=== PATIENT | male | born 1945 | race African-American/Black ===

== ENCOUNTER 2016-07-24 11:31 | Inpatient (IN) | payer MEDICARE ==
[~2016-07-24] VITALS: Ht 175.3 cm; Wt 68.0 kg
[2016-07-24] MEDS ORDERED: OCTREOTIDE 50 MCG in SOD CHLORIDE 0.9% 25 ML IVPB STA (11:51)
[2016-07-24] MEDS ORDERED: ONDANSETRON 4 MG INJ IV STA (11:51)
[2016-07-24] MEDS ORDERED: SOD CHLORIDE 0.9% 1,000 ML IV STA (11:51)
[2016-07-24] MEDS ORDERED: ALBUTEROL 0.5% (NEB) 2.5 MG/0.5 ML AMP INH STA (11:51)
[2016-07-24] MEDS ORDERED: METHYLPREDNISOLONE 40 MG INJ IV STA (11:51)
[2016-07-24] MEDS ORDERED: OCTREOTIDE 500 MCG in SOD CHLORIDE 0.9% 49 ML IV STA (11:51)
[2016-07-24] MEDS ORDERED: IPRATROPIUM (NEB) 0.5 MG/2.5 ML AMP INH STA (11:51)
[2016-07-24 11:55] VITALS: Ht 175.3 cm; Wt 68.0 kg
[2016-07-24] MEDS ORDERED: CEFEPIME 1GM/50 ML (PMX) 50 ML IVPB ONE (12:00)
--- NOTE | 2016-07-24 12:30 | RADRPT ---
PROCEDURE: XR Chest 1 View. CLINICAL INDICATION: Abdominal pain TECHNIQUE: AP view of the chest were obtained. COMPARISON: June 27, 2016 FINDINGS: Heart size is within normal limits. Calcified atherosclerosis is seen in the aorta. Tracheostomy t ube appears in grossly appropriate location. The lungs are hypoinflated. Atelectasis versus mild i nfiltrates are identified at the bilateral lung bases. No pneumothorax as visualized . Left-sided rib fractures are unchanged. IMPRESSION: Calcified atherosclerosis in the aorta. Hypoinflated lungs with atelectasis versus mild infiltrates at the lung bases. Stable left rib fractures. RPTAT: AA .Kervin Hanson MD, MD Date Time Electronically viewed and signed by .Kervin Hanson MD, on 07/24/2016 12:30 .P/
[2016-07-24] MEDS ORDERED: ACET325T33 GTB (12:47)
[2016-07-24] MEDS ORDERED: TYL500 GTB (12:49)
[2016-07-24] MEDS ORDERED: ASCO500C7 GTB (12:52)
[2016-07-24] MEDS ORDERED: FERR220S2 GTB (12:53)
[2016-07-24 12:55] LABS: HEMATOCRIT 44.6 % (42.0-52.0); MEAN CORPUSCULAR HEMOGLOBIN 26.8 pg (29.0-33.0); MEAN CORPUSCULAR HGB CONC 31.4 g/dl (32.0-37.0); MEAN CORPUSCULAR VOLUME 85.2 fl (82.0-101.0); MEAN PLATELET VOLUME 10.8 fl (7.4-10.4); PLATELET COUNT 338 10^3/UL (140-440); RED BLOOD COUNT 5.24 10^6/ul (4.70-6.10); WHITE BLOOD COUNT 14.3 10^3/ul (4.8-10.8)
[2016-07-24] MEDS ORDERED: DIPH25TA68 GTB (12:55)
[2016-07-24 12:57] LABS: CONDITION 1; LH ANALYZER COMMENTS 1; SUSPECT 1; UNCORRECTED WBC 15.2 10^3/ul (4.8-10.8)
[2016-07-24] MEDS ORDERED: ENOX40DI14 SC (12:58)
[2016-07-24] MEDS ORDERED: AMLO-218 PO (12:58)
[2016-07-24] MEDS ORDERED: FAMO-18 PO (12:59)
[2016-07-24] MEDS ORDERED: VANCOMYCIN 1 GM (PMX) 250 ML IVPB SCH (13:00)
[2016-07-24] MEDS ORDERED: METO-429 PO (13:02)
[2016-07-24 13:04] LABS: INR 1.16; PROTIME 14.8 Sec (12.2-14.2); PT RATIO 1.2
[2016-07-24 13:05] LABS: ALBUMIN 4.2 g/dl (3.3-4.9); CHLORIDE 98 mmol/L (97-110)
[2016-07-24 13:06] LABS: POTASSIUM 5.4 mmol/L (3.5-5.1); SODIUM 141 mmol/L (135-144)
[2016-07-24 13:08] LABS: ALBUMIN/GLOBULIN RATIO 0.84; ANION GAP 25 (8-16); ASPARTATE AMINO TRANSFERASE 41 IU/L (15-46); BILIRUBIN,INDIRECT 0.3 mg/dl (0-1.1); BILIRUBIN,TOTAL 0.3 mg/dl (0.2-1.3); CARBON DIOXIDE 23 mmol/L (21-31); CREATININE 1.65 mg/dl (0.61-1.24); TOTAL PROTEIN 9.2 g/dl (6.1-8.1)
[2016-07-24 13:09] LABS: ALANINE AMINOTRANSFERASE 87 IU/L (13-69); ALKALINE PHOSPHATASE 92 IU/L (42-121); BLOOD UREA NITROGEN 48 mg/dl (7-20); CALCIUM 10.6 mg/dl (8.4-10.2); GLUCOSE 173 mg/dl (70-220)
[2016-07-24 13:23] LABS: TROPONIN-I < 0.012 ng/ml (0.00-0.12)
[2016-07-24 13:28] LABS: ADD UMIC YES; URINE BILIRUBIN (Dip) 1+ (NEGATIVE); URINE BLOOD (Dip) 3+ (NEGATIVE); URINE COLOR AMBER (YELLOW); URINE GLUCOSE (Dip) NEGATIVE (NEGATIVE); URINE KETONES (Dip) TRACE (NEGATIVE); URINE LEUKOCYTE ESTERASE (Dip) 1+ (NEGATIVE); URINE NITRITE (Dip) NEGATIVE (NEGATIVE); URINE TOTAL PROTEIN (Dip) 2+ (NEGATIVE); URINE UROBILINOGEN (Dip) 0.2 E.U./dL (0.1-1.0)
--- NOTE | 2016-07-24 13:41 | ERA ---
ER Documentation Chief Complaint Date/Time DATE: 07/24/16 TIME: 13:28 Chief Complaint had couple episodes HPI 70-year-old man brought in by EMS from senior living for a few episodes of coffee -ground emesis. Patient was also diaphoretic and short of breath. HPI supplemented by reviewing senior living records, previous medical records, speaking to EMS, and nursing staff. ROS All systems reviewed and are negative except as per history of present illness. Medications Home Meds Reported Medications Metoprolol Tartrate* (Lopressor*) 50 Mg Tab, 50 MG PO TID, #60 TAB 07/24/16 Famotidine* (Pepcid*) 20 Mg Tablet, 20 MG PO BID, #60 TAB 07/24/16 Enoxaparin Sodium* (Lovenox*) 40 Mg/0.4 Ml Syringe, 40 MG SC DAILY, SYR 07/24/16 Amlodipine Besylate* (Norvasc*) 10 Mg Tablet, 10 MG PO DAILY, TAB HOLD FOR SBP BELOW 110 HR BELOW 60 07/24/16 Diphenhydramine Hcl (Benadryl Allergy) 25 Mg Tablet, 25 MG GTB Q6 Y for ITCHING , TAB 07/24/16 Ferrous Sulfate (Ferrous Sulfate) 220 Mg/5 Ml Solution, 220 MG GTB DAILY 07/24/16 Ascorbic Acid* (Vitamin C*) 500 Mg Capsule.sa, 500 MG GTB DAILY, CAP 07/24/16 Acetaminophen* (Tylenol*) 500 Mg Tab, 1000 MG GTB Q4H Y for PAIN 4-6/10, TAB 07/24/16 Acetaminophen* (Tylenol*) 325 Mg Tablet, 650 MG GTB Q4H for MILD PAIN LEVEL 1-3 , TAB FOR FEVER 100 & ABOVE, FOR TRACH TUBE CHANGE 07/24/16 Allergies Allergies: Coded Allergies: No Known Allergy (Unverified , 07/24/16) PMhx/Soc Cephalopathy, tracheostomy and mechanical ventilator dependence, colostomy bag, chronic obstructive pulmonary disease, dysphagia, subdural hemorrhage, bedbound state, hypertension, preserved left ventricular ejection fraction Hx Alcohol Use: No Hx Substance Use: No Hx Tobacco Use: No Smoking Status: Former smoker FmHx Family History: No diabetes Physical Exam Vitals Vital Signs Date Time Temp Pulse Resp B/P Pulse Ox O2 Delivery O2 Flow Rate FiO2 07/24/16 12:54 118 19 101/73 90 Room Air 12/24/16 12:49 Venti Mask 07/24/16 12:21 8.0 07/24/16 12:21 101 17 97 T Tube 8.0 07/24/16 11:55 99.8 107 40 148/113 98 Physical Exam GENERAL: Elderly, chronically debilitated, emaciated man, diaphoretic, febrile HEENT: Dry mucous membranes, pink conjunctiva, no cervical spine deformity NEURO: Comatose, pupils minimally reactive, bilateral upper and lower extremity contractures with diffuse muscular wasting, paralyzed, bedbound CARDIAC: Tachycardic and regular, no murmurs rubs or gallops LUNGS: Poor breath sounds bilaterally with diffuse crackles and wheezing, no stridor ABDOMEN: Soft nontender, no guarding, no rigidity, no rebound, no psoas sign no obturator sign. Normoactive bowel sounds SKIN: Diaphoretic and hot to touch, no abrasions, contusions, or hematomas, no lacerations, no ecchymosis, no target lesions, and without ulcers EXTREMITIES: No clubbing cyanosis or edema, calves are bilaterally symmetrical, no Homans sign, no popliteal cord sign. Distal pulses equal and bilateral PSYCH: Unable to assess Result Diagram: 07/24/16 1209 07/24/16 1209 Results 24 hrs Laboratory Tests Test 07/24/16 12:09 Alanine Aminotransferase (ALT/SGPT) 87IU/L Albumin 4.2g/dl Albumin/Globulin Ratio 0.84 Alkaline Phosphatase 92IU/L Anion Gap 25 Aspartate Amino Transf (AST/SGOT) 41IU/L Basophils # Pending Basophils % Pending Blood Morphology Comment Blood Urea Nitrogen 48mg/dl Calcium Level 10.6mg/dl Carbon Dioxide Level 23mmol/L Chloride Level 98mmol/L Creatinine 1.65mg/dl Direct Bilirubin 0.00mg/dl Eosinophils # Pending Eosinophils % Pending Globulin 5.00g/dl Glucose Level 173mg/dl Hematocrit 44.6% Hemoglobin 14.0g/dl INR International Normalized Ratio 1.16 Indirect Bilirubin 0.3mg/dl Lactic Acid Level 3.6mmol/L Lipase 16U/L Lymphocytes # Pending Lymphocytes % Pending Mean Corpuscular Hemoglobin 26.8pg Mean Corpuscular Hemoglobin Concent 31.4g/dl Mean Corpuscular Volume 85.2fl Mean Platelet Volume 10.8fl Monocytes # Pending Monocytes % Pending Neutrophils # Pending Neutrophils % Pending Nucleated Red Blood Cells # Pending Nucleated Red Blood Cells % Pending Platelet Count 63430^3/UL Potassium Level 5.4mmol/L Prothrombin Time 14.8Sec Prothrombin Time Ratio 1.2 Red Blood Count 5.2410^6/ul Red Cell Distribution Width 18.0% Sodium Level 141mmol/L Total Bilirubin 0.3mg/dl Total Protein 9.2g/dl Troponin I < 0.012ng/ml White Blood Count 14.310^3/ul Current Medications Medications (Trade) Dose Ordered Sig/Brandi Route PRN Reason Start Time Stop Time Status Last Admin Dose Admin Octreotide Acetate 50 mcg/ Sodium Chloride 26 ml @ 100 mls/hr Q16M STAT IVPB 07/24/16 11:51 07/24/16 12:06 DC Octreotide Acetate/Sodium Chloride (Sandostatin/NS) 50 ml @ 5 mls/hr ONCE STAT IV 07/24/16 11:51 07/24/16 21:50 Ondansetron HCl (Zofran Inj) 4 mg ONCE STAT IV 07/24/16 11:51 07/24/16 11:55 DC 07/24/16 12:38 Albuterol (Proventil 0.5% (Neb)) 10 mg ONCE STAT INH 07/24/16 11:51 07/24/16 11:55 DC 07/24/16 12:05 Ipratropium Royal (Atrovent 0.02% (Neb)) 1 mg ONCE STAT INH 07/24/16 11:51 07/24/16 11:55 DC 07/24/16 12:04 Methylprednisolone Sodium Succinate 40 mg 40 mg ONCE STAT IV 07/24/16 11:51 07/24/16 11:55 DC 07/24/16 12:38 Sodium Chloride 1,000 ml @ 3,000 mls/hr Q20M STAT IV 07/24/16 11:51 07/24/16 12:10 DC 07/24/16 12:37 Cefepime HCl 50 ml @ 100 mls/hr ONCE ONCE IVPB 07/24/16 12:00 07/24/16 12:29 DC 07/24/16 12:38 Vancomycin HCl (Vancocin) 250 ml @ 125 mls/hr ONCE IVPB 07/24/16 13:00 07/24/16 14:59 Procedures/MDM IV line was established patient was placed on athletic monitor rhythm strip revealed a sinus tachycardia at about 110 bpm with upright P and T waves. Patient was febrile. Blood and urine cultures were ordered results are pending I will follow-up. EKG performed, read by me revealed a sinus tachycardia at 105 bpm, normal axis, narrow QRS complex with a first-degree atrioventricular block and a SC interval of 206 ms, no concerning ST elevations or depressions noted. One view chest x-ray performed, read by me there is atelectatic changes bilaterally and bilateral pulmonary infiltrates, tracheostomy tube in place, no pneumothorax, no end of the diaphragm. I administered about 2 L normal saline intravenously for dehydration and suspected sepsis, albuterol 10 mg via nebulizer, ipratropium 1 mg via nebulizer , methylprednisolone 40 mg IV, Zofran 4 mg IV for vomiting, and cefepime 1 g IV. NG tube was placed to intermittent suction and coffee-ground contents were obtained. I also administered octreotide 50 g IV bolus followed by an octreotide drip. Patient also received vancomycin 1 g IV. CBC also revealed a mild leukocytosis of 14, electrolytes revealed hyperkalemia 5.4 and dehydration with acute kidney injury with a BUN/creatinine of 48/1.7, liver function tests were unremarkable, troponin was negative, initial lactic acid was above 3. Urine analysis was positive for infection. Patient's infectious symptoms have not stabilized and the patient is at risk of rapid decompensation. The patient will be admitted for careful hydration, antibiotic therapy, and infectious source control. Severe Sepsis Assessment: Infectious Source: Bilateral pulmonary infiltrates No evidence of endorgan damage at this time. Severe Sepsis Managment: Blood Cultures X 2 before broad spectrum antibiotics initiated within 3 hours of recognition. 30 ml/kg NS bolus Completed Initial Lactate: Elevate Repeat Lactate pending Critical Care: Time: 40 minutes Treatments/Evaluations: Emergent fluid management, while maintaining close respiratory support. Immediate broad spectrum antibiotic therapy. Simultaneous assessment for possible sources in order to direct therapy. Consideration for invasive and chemical support to prevent respiratory or cardiac collapse. Septic Shock Assessment (1 hour post 30 ml/kg fluid bolus): Hypotension (SBP < 90 or 40 mmHg drop, MAP < 65): No Lactic acid > 4.0 No Perfusion Reassessment for Septic Shock: Temp 98.7, Pulse 100, RR 30, BP 120/80 Heart Exam: Tachycardic Lung Exam: Wheezes and crackles bilaterally Capillary Refill: Less than 2/ Peripheral Pulses: Radially present Skin: Diaphoretic and hot to touch Hypotensive Treatment (not required for isolated lactic acid elevation): Comfort Care: No Central LIne: Not indicated as patient's blood pressure is well within normal limit Vasopressor started: Not indicated I considered further perfusion assessment with CVP measurement, SCVO2, bedside ultrasound volume assessment, passive leg raise, trial of further fluid bolus. And preceded with IV hydration, bronchodilator therapy, and IV antibiotic Accepting Care Team: Current data and ongoing care discussed. Time: Time of admission Primary Provider: Dr. Germain covering for Dr. Meeks Consulting: Dr. Figueroa for pulmonary Outstanding Data: none Departure Diagnosis: Primary Impression: Sepsis Qualified Code: A41.9 - Sepsis, due to unspecified organism Additional Impressions: Bilateral pneumonia Qualified Code: J18.9 - Pneumonia of both lower lobes due to infectious organism Respiratory failure Qualified Code: J96.21 - Acute on chronic respiratory failure with hypoxia and hypercapnia COPD (chronic obstructive pulmonary disease) Qualified Code: J44.1 - Chronic obstructive pulmonary disease with acute exacerbation Encephalopathy Hyperkalemia Gastrointestinal hemorrhage associated with acute gastritis Condition: Serious RONNIE OWENS MD Jul 24, 2016 13:39
[2016-07-24 13:49] LABS: LYMPHOCYTES # 1.3 10^3/ul (0.8-2.9); MONOCYTE # 0.3 10^3/ul (0.3-0.9); NEUTROPHIL # 10.4 10^3/ul (1.6-7.5)
[2016-07-24 13:57] LABS: BACTERIA,URINE MANY; ICTOTEST NEGATIVE (NEGATIVE)
[2016-07-24] MEDS ORDERED: ONDANSETRON 4 MG INJ IV PRN (14:00)
[2016-07-24] MEDS ORDERED: morphine 2 MG INJ IV PRN (14:00)
[2016-07-24] MEDS ORDERED: ACETAMINOPHEN 325 MG TAB PO PRN (14:00)
[2016-07-24] MEDS ORDERED: NACL 0.9% 3 ML SYG IV SCH (14:00)
[2016-07-24] MEDS ORDERED: SOD CHLORIDE 0.9% 1,000 ML IV ONE (17:00)
[2016-07-24 18:33] VITALS: TEMP 98.9
[2016-07-24 19:06] VITALS: BP 151/81; PULSE 87; RESP 18
[2016-07-24 20:09] VITALS: PULSE 85
[2016-07-24] MEDS: FAMOTIDINE 20 MG INJ IV SCH (20:30)
[2016-07-24 20:46] VITALS: BP 151/81; RESP 16
[2016-07-24] MEDS: SOD CHLORIDE 0.9% 1,000 ML IV SCH (22:26)
[2016-07-25] VITALS (13 sets, daily range): BP systolic 134–170; BP diastolic 69–87; PULSE 70–129; RESP 18–22
[2016-07-25] MEDS: SOD CHLORIDE 0.9% 1,000 ML IV SCH ×2 (06:16→15:42)
[2016-07-25 06:36] LABS: HEMATOCRIT 30.5 % (42.0-52.0); HEMOGLOBIN 9.9 g/dl (14.0-18.0); LYMPHOCYTES # 1.6 10^3/ul (0.8-2.9); LYMPHOCYTES % 10.5 % (15.0-51.0); MEAN CORPUSCULAR HEMOGLOBIN 27.5 pg (29.0-33.0); MEAN CORPUSCULAR HGB CONC 32.6 g/dl (32.0-37.0); MEAN CORPUSCULAR VOLUME 84.5 fl (82.0-101.0); MONOCYTE # 1.1 10^3/ul (0.3-0.9); MONOCYTES % 7.5 % (0.0-11.0); NEUTROPHIL # 12.5 10^3/ul (1.6-7.5); PLATELET COUNT 351 10^3/UL (140-440); RED CELL DISTRIBUTION WIDTH 18.1 % (11.5-14.5); UNCORRECTED WBC 15.2 10^3/ul (4.8-10.8); WHITE BLOOD COUNT 15.2 10^3/ul (4.8-10.8)
[2016-07-25 06:56] LABS: ALBUMIN 3.2 g/dl (3.3-4.9); POTASSIUM 4.9 mmol/L (3.5-5.1)
[2016-07-25 06:58] LABS: CREATININE 0.67 mg/dl (0.61-1.24)
[2016-07-25 06:59] LABS: ALBUMIN/GLOBULIN RATIO 0.84; BILIRUBIN,INDIRECT 0.2 mg/dl (0-1.1); BILIRUBIN,TOTAL 0.2 mg/dl (0.2-1.3)
[2016-07-25 07:17] LABS: CONDITION 1; LH ANALYZER COMMENTS 1; SUSPECT 1
[2016-07-25] MEDS: FAMOTIDINE 20 MG INJ IV SCH (09:48)
[2016-07-25] MEDS: ENOXAPARIN 30 MG/0.3 ML SYG SC SCH (09:53)
[2016-07-25] MEDS: CEFEPIME 1GM/50 ML (PMX) 50 ML IVPB SCH (12:00)
--- NOTE | 2016-07-25 12:42 | HP ---
Date/Time of Note Date/Time of Note DATE: 07/25/16 TIME: 12:40 Assessment/Plan VTE Prophylaxis VTE Prophylaxis Intervention: LMWH Lines/Catheters IV Catheter Type (from Nrs): Peripheral IV Urinary Cath still in place: Yes Reason Cath still needed: skin wounds contaminated by urine Assessment/Plan Chief Complaint/Hosp Course 1) pneumonia - intravenous antibiotics - monitor clinically 2) respiratory failure - consult pulmonary to evaluate and aid in care 3) encephalopathy - monitor Problems: HPI/ROS Admit Date/Time Admit Date/Time Jul 24, 2016 at 13:21 Hx of Present Illness Patient with respiratory failure, COPD, encephalopathy comes from subacute with evidence of sepsis. Patient will be admitted for antibiotics and further care. ROS Subjective hx not possible: pt non-verbal PMH/Family/Social Past Medical History encephalopathy, respiratory failure, COPD Social History Alcohol Use: none Smoking Status: Unknown if ever smoked Exam/Review of Systems Vital Signs Vitals Vital Signs Date Time Temp Pulse Resp B/P Pulse Ox O2 Delivery O2 Flow Rate FiO2 07/25/16 12:06 101 07/25/16 11:54 98.2 18 149/84 98 07/25/16 09:31 T Tube 10.0 40 Intake and Output 07/24/16 07/24/16 07/25/16 15:00 23:00 07:00 Intake Total 1000 ml Balance 1000 ml Exam Constitutional: non-verbal Respiratory: diminished breath sounds Cardiovascular: regular rate and rhythm Gastrointestinal: non-tender, soft Extremities: normal pulses Labs Result Diagram: 07/25/16 0551 07/25/16550 Medications Medications Current Medications Ondansetron HCl (Zofran Inj) 4 mg Q6H PRN IV NAUSEA AND/OR VOMITING; Start at 14:00 Acetaminophen (Tylenol Tab) 650 mg Q6H PRN PO PAIN LEVEL 1-3 OR FEVER; Start 07/24/16 at 14:00 Morphine Sulfate (morphine) 2 mg Q4H PRN IV PAIN LEVEL 7-10; Start 07/24/16 at 14:00 Famotidine (Pepcid Iv) 20 mg DAILY IV Last administered on 07/25/16at 09:48; Admin Dose 20 MG; Start 07/24/16 at 21:00 Enoxaparin Sodium 30 mg 30 mg DAILY SC Last administered on 07/25/16at 09:53; Admin Dose 30 MG; Start 07/25/16 at 09:00 Cefepime HCl 50 ml @ 100 mls/hr Q24H IVPB ; Start 07/25/16 at 12:00 Sodium Chloride (NS) 1,000 ml @ 100 mls/hr Q10H IV Last administered on at 06:16; Admin Dose 100 MLS/HR; Start 07/24/16 at 21:30; Stop 07/26/16 at 21:29 Influenza Virus Vaccine (Fluzone) 0.5 ml ONCE ONCE IM* ; Start 07/26/16 at 09: 00; Stop 07/26/16 at 09:01 OLI ZUNIGA Jul 25, 2016 12:42
--- NOTE | 2016-07-25 19:39 | CONS ---
DATE OF ADMISSION: 07/24/2016 DATE OF CONSULTATION: 07/25/2016 TYPE OF CONSULTATION: Pulmonary. REFERRING PHYSICIAN: Dr. Susi Germain. REASON FOR CONSULTATION: Pneumonia and respiratory failure. HISTORY OF PRESENT ILLNESS: This is a 70-year-old male resident of a subacute care facility who was brought in with complaints of fever and was found to have bibasilar pneumonia along with UTI. Cult ures were obtained. Patient was started on broad-spectrum antibiotic. The patient has chronic ence phalopathy and is unable to provide any information. REVIEW OF SYSTEMS: Unable to obtain. PAST MEDICAL HISTORY: Apparently history of chronic respiratory failure, tracheostomy dependent, ch ronic encephalopathy and COPD. ALLERGIES: NONE KNOWN TO ME. SOCIAL HABITS: Resident of subacute care facility. FAMILY HISTORY: Unknown. PHYSICAL EXAMINATION: VITAL SIGNS: Blood pressure 149/84, pulse 101, respirations 16, temperature 98.2. Currently, patie nt on 28% FIO2, saturating 96%. HEENT: Pupils are equal and react to light. NECK: Supple, no JVD noted, no cervical adenopathy, no carotid bruits heard. LUNGS: Scattered rhonchi bilaterally. CARDIOVASCULAR: S1, S2 normal. ABDOMEN: Soft, nontender. G-tube in place. EXTREMITIES: No clubbing or cyanosis noted. 1+ pretibial edema. NEUROLOGICAL: Chronic encephalopathy. LABORATORIES: Sodium 143, potassium 4.9, chloride 106, CO2 of 25, BUN 34, creatinine 0.67, glucose 138. WBC 15.2, hemoglobin 9.9, hematocrit 30.5, platelets 351. UA shows greater than 200 WBCs. est x-ray shows bibasilar infiltrate. IMPRESSION: A 70-year-old male with: 1. Healthcare-associated pneumonia. 2. Urinary tract infection. 3. Chronic respiratory failure. 4. History of chronic obstructive pulmonary disease. 5. History of chronic encephalopathy. 6. Tracheostomy and G-tube. RECOMMENDATIONS: 1. Obtain cultures. 2. Antibiotics. 3. Bronchodilators. 4. Oxygen. 5. Gastrointestinal prophylaxis. 6. Deep venous thrombosis prophylaxis. 7. Follow up chest x-ray and labs. Dictated By: ARTURO WALDRON MD, MA/MACK Conf#: [id number] DID#: [id number]
[2016-07-26] VITALS (12 sets, daily range): BP systolic 141–176; BP diastolic 70–89; PULSE 67–100; RESP 18–24
[2016-07-26] MEDS: SOD CHLORIDE 0.9% 1,000 ML IV SCH ×2 (02:16→13:41)
[2016-07-26] MEDS: FAMOTIDINE 20 MG INJ IV SCH (08:49)
[2016-07-26] MEDS: ENOXAPARIN 30 MG/0.3 ML SYG SC SCH (08:59)
[2016-07-26] MEDS ORDERED: INFLUENZA VIRUS VACCINE 0.5 ML (DISPENSING) IM* ONE (09:00)
[2016-07-26] MEDS: CEFEPIME 1GM/50 ML (PMX) 50 ML IVPB SCH (13:29)
--- NOTE | 2016-07-26 13:41 | PQ ---
Date/Time of Note Date/Time of Note DATE: 07/26/16 TIME: 13:29 Physician Query Documentation Clarification Dear Dr. Zuniga, A review of the medical record found a need for documentation clarification. Documentation in the medical record indicates that this patient has been admitted with or diagnosed as having: Pneumonia, Respiratory failure & Encephalopathy + + UC Gm Neg melany WBC = 14.3--> 15.2 HR = 100's --> 110's Lactic acid = 3.6 - 4.8 Based on your medical judgment, can you further clarify the cause, if any, of these systemic findings? To facilitate accurate and complete coding, please lolly ( x ) the suspected diagnosis that apply: ( X ) Sepsis due to Pneumonia ( ) Systemic inflammatory response syndrome (SIRS) due to noninfectious disease ( ) Systemic inflammatory response syndrome (SIRS) due to noninfectious process with acute organ dysfunction ( ) No Clinical sign of sepsis ( ) Others ( ) Clinically undetermined Please provide your response by clicking edit document, making your choice ( x ), click ok and finally click sign. You may also document your response on your progress notes. Thank you for your time. Ba Gerard, RN, BSN, CCS, CCDS Clinical Eligibility Services Representative Health Information Management, CDI and Coding Services [phone] Room # 1525 - [address]~ [address] BA GERARD Jul 26, 2016 13:41 OLI ZUNIGA Jul 26, 2016 15:05
--- NOTE | 2016-07-26 16:56 | PN ---
Date/Time of Note Date/Time of Note DATE: 07/26/16 TIME: 16:54 Assessment/Plan VTE Prophylaxis VTE Prophylaxis Intervention: other Lines/Catheters IV Catheter Type (from Nrs): Saline Lock Urinary Cath still in place: Yes Assessment/Plan Assessment/Plan 1) pneumonia - intravenous antibiotics - monitor clinically 2) respiratory failure - consult pulmonary to evaluate and aid in care 3) encephalopathy - monitor Exam/Review of Systems Vital Signs Vitals Vital Signs Date Time Temp Pulse Resp B/P Pulse Ox O2 Delivery O2 Flow Rate FiO2 07/26/16 16:15 100 07/26/16 15:49 98.0 18 170/80 99 07/26/16 09:40 10.0 60 07/26/16 09:40 T Tube Intake and Output 07/25/16 07/25/16 07/26/16 15:00 23:00 07:00 Output Total 1300 ml 1200 ml 1600 ml Balance -1300 ml -1200 ml -1600 ml Results Result Diagram: 07/25/16 0551 07/25/16 0551 Medications Medications Current Medications Ondansetron HCl (Zofran Inj) 4 mg Q6H PRN IV NAUSEA AND/OR VOMITING; Start at 14:00 Acetaminophen (Tylenol Tab) 650 mg Q6H PRN PO PAIN LEVEL 1-3 OR FEVER; Start 07/24/16 at 14:00 Morphine Sulfate (morphine) 2 mg Q4H PRN IV PAIN LEVEL 7-10; Start 07/24/16 at 14:00 Famotidine (Pepcid Iv) 20 mg DAILY IV Last administered on 07/26/16at 08:49; Admin Dose 20 MG; Start 07/24/16 at 21:00 Enoxaparin Sodium 30 mg 30 mg DAILY SC Last administered on 07/26/16at 08:59; Admin Dose 30 MG; Start 07/25/16 at 09:00 Cefepime HCl 50 ml @ 100 mls/hr Q24H IVPB Last administered on 07/26/16at 13: 29; Admin Dose 100 MLS/HR; Start 07/25/16 at 12:00 Sodium Chloride (NS) 1,000 ml @ 100 mls/hr Q10H IV Last administered on at 13:41; Admin Dose 100 MLS/HR; Start 07/24/16 at 21:30; Stop 07/26/16 at 21:29 MARIO ROWE Jul 26, 2016 16:56
[2016-07-27] VITALS (11 sets, daily range): BP systolic 131–156; BP diastolic 65–95; PULSE 90–100; RESP 20–24
[2016-07-27 08:12] LABS: BASOPHIL # 0.1 10^3/ul (0.0-0.1); BASOPHILS % 0.7 % (0.0-2.0); EOSINOPHILS # 0.1 10^3/ul (0.0-0.5); EOSINOPHILS % 0.7 % (0.0-7.0); HEMATOCRIT 33.4 % (42.0-52.0); HEMOGLOBIN 10.7 g/dl (14.0-18.0); LYMPHOCYTES # 1.6 10^3/ul (0.8-2.9); MEAN CORPUSCULAR HEMOGLOBIN 27.1 pg (29.0-33.0); MEAN CORPUSCULAR VOLUME 84.9 fl (82.0-101.0); MEAN PLATELET VOLUME 10.5 fl (7.4-10.4); MONOCYTE # 0.8 10^3/ul (0.3-0.9); MONOCYTES % 9.3 % (0.0-11.0); NEUTROPHIL # 6.1 10^3/ul (1.6-7.5); NEUTROPHILS % 70.3 % (39.0-77.0); PLATELET COUNT 323 10^3/UL (140-440); RED BLOOD COUNT 3.94 10^6/ul (4.70-6.10); RED CELL DISTRIBUTION WIDTH 17.8 % (11.5-14.5); UNCORRECTED WBC 8.6 10^3/ul (4.8-10.8); WHITE BLOOD COUNT 8.6 10^3/ul (4.8-10.8)
[2016-07-27 08:20] LABS: CONDITION 1; LH ANALYZER COMMENTS 1; SUSPECT 1
[2016-07-27 08:32] LABS: CREATININE 0.47 mg/dl (0.61-1.24)
[2016-07-27 08:33] LABS: CALCIUM 8.9 mg/dl (8.4-10.2)
[2016-07-27 08:40] LABS: POTASSIUM 2.9 mmol/L (3.5-5.1)
[2016-07-27] MEDS: FAMOTIDINE 20 MG INJ IV SCH (09:18)
[2016-07-27] MEDS: ENOXAPARIN 30 MG/0.3 ML SYG SC SCH (09:19)
--- NOTE | 2016-07-27 10:48 | CONS ---
Date/Time of Note Date/Time of Note DATE: 07/27/16 TIME: 10:47 Assessment/Plan Assessment/Plan Additional Assessment/Plan asked to consult. will be in momentarily Consultation Date/Type/Reason Admit Date/Time Jul 24, 2016 at 13:21 Initial Consult Date Exam/Review of Systems Vital Signs Vitals Vital Signs Date Time Temp Pulse Resp B/P Pulse Ox O2 Delivery O2 Flow Rate FiO2 07/27/16 09:11 33 93 10.0 40 07/27/16 08:27 96 07/27/16 08:27 98.7 143/68 07/27/16 05:00 Aerosol T Tube Intake and Output 07/26/16 07/26/16 07/27/16 15:00 23:00 07:00 Output Total 1700 ml 1300 ml Balance -1700 ml -1300 ml Results Result Diagram: 07/27/16 0720 07/27/16 0720 Results 24 hrs Laboratory Tests Test 07/27/16 07:20 Anion Gap 19 H Basophils # 0.1 Basophils % 0.7 Blood Morphology Comment Blood Urea Nitrogen 16 Calcium Level 8.9 Carbon Dioxide Level 28 Chloride Level 99 Creatinine 0.47 L Eosinophils # 0.1 Eosinophils % 0.7 Glucose Level 86 Hematocrit 33.4 L Hemoglobin 10.7 L Lymphocytes # 1.6 Lymphocytes % 19.0 Mean Corpuscular Hemoglobin 27.1 L Mean Corpuscular Hemoglobin Concent 32.0 Mean Corpuscular Volume 84.9 Mean Platelet Volume 10.5 H Monocytes # 0.8 Monocytes % 9.3 Neutrophils # 6.1 Neutrophils % 70.3 Nucleated Red Blood Cells # 0.0 Nucleated Red Blood Cells % 0.0 Platelet Count 323 Potassium Level 2.9 *L Red Blood Count 3.94 L Red Cell Distribution Width 17.8 H Sodium Level 143 White Blood Count 8.6 # Medications Medications Current Medications Ondansetron HCl (Zofran Inj) 4 mg Q6H PRN IV NAUSEA AND/OR VOMITING; Start at 14:00 Acetaminophen (Tylenol Tab) 650 mg Q6H PRN PO PAIN LEVEL 1-3 OR FEVER; Start 07/24/16 at 14:00 Morphine Sulfate (morphine) 2 mg Q4H PRN IV PAIN LEVEL 7-10; Start 07/24/16 at 14:00 Famotidine (Pepcid Iv) 20 mg DAILY IV Last administered on 07/27/16at 09:18; Admin Dose 20 MG; Start 07/24/16 at 21:00 Enoxaparin Sodium 30 mg 30 mg DAILY SC Last administered on 07/27/16at 09:19; Admin Dose 30 MG; Start 07/25/16 at 09:00 Cefepime HCl (Maxipime 1gm/50 ml (Pmx)) 50 ml @ 100 mls/hr Q24H IVPB Last administered on 07/26/16at 13:29; Admin Dose 100 MLS/HR; Start 07/25/16 at 12: 00 Hydralazine HCl (Apresoline) 20 mg Q4H PRN IV SBP > 170; Start 07/26/16 at 23: 00 MARIBELL SUN MD Jul 27, 2016 10:48
--- NOTE | 2016-07-27 11:07 | CONS ---
Date/Time of Note Date/Time of Note DATE: 07/27/16 TIME: 11:07 Assessment/Plan Assessment/Plan Additional Assessment/Plan [id number] Consultation Date/Type/Reason Admit Date/Time Jul 24, 2016 at 13:21 Exam/Review of Systems Vital Signs Vitals Vital Signs Date Time Temp Pulse Resp B/P Pulse Ox O2 Delivery O2 Flow Rate FiO2 07/27/16 09:11 33 93 10.0 40 07/27/16 08:27 96 07/27/16 08:27 98.7 143/68 07/27/16 05:00 Aerosol T Tube Intake and Output 07/26/16 07/26/16 07/27/16 15:00 23:00 07:00 Output Total 1700 ml 1300 ml Balance -1700 ml -1300 ml Results Result Diagram: 07/27/16 0720 07/27/16 0720 Results 24 hrs Laboratory Tests Test 07/27/16 07:20 Anion Gap 19 H Basophils # 0.1 Basophils % 0.7 Blood Morphology Comment Blood Urea Nitrogen 16 Calcium Level 8.9 Carbon Dioxide Level 28 Chloride Level 99 Creatinine 0.47 L Eosinophils # 0.1 Eosinophils % 0.7 Glucose Level 86 Hematocrit 33.4 L Hemoglobin 10.7 L Lymphocytes # 1.6 Lymphocytes % 19.0 Mean Corpuscular Hemoglobin 27.1 L Mean Corpuscular Hemoglobin Concent 32.0 Mean Corpuscular Volume 84.9 Mean Platelet Volume 10.5 H Monocytes # 0.8 Monocytes % 9.3 Neutrophils # 6.1 Neutrophils % 70.3 Nucleated Red Blood Cells # 0.0 Nucleated Red Blood Cells % 0.0 Platelet Count 323 Potassium Level 2.9 *L Red Blood Count 3.94 L Red Cell Distribution Width 17.8 H Sodium Level 143 White Blood Count 8.6 # Medications Medications Current Medications Ondansetron HCl (Zofran Inj) 4 mg Q6H PRN IV NAUSEA AND/OR VOMITING; Start at 14:00 Acetaminophen (Tylenol Tab) 650 mg Q6H PRN PO PAIN LEVEL 1-3 OR FEVER; Start 07/24/16 at 14:00 Morphine Sulfate (morphine) 2 mg Q4H PRN IV PAIN LEVEL 7-10; Start 07/24/16 at 14:00 Famotidine (Pepcid Iv) 20 mg DAILY IV Last administered on 07/27/16at 09:18; Admin Dose 20 MG; Start 07/24/16 at 21:00 Enoxaparin Sodium 30 mg 30 mg DAILY SC Last administered on 07/27/16at 09:19; Admin Dose 30 MG; Start 07/25/16 at 09:00 Cefepime HCl (Maxipime 1gm/50 ml (Pmx)) 50 ml @ 100 mls/hr Q24H IVPB Last administered on 07/26/16at 13:29; Admin Dose 100 MLS/HR; Start 07/25/16 at 12: 00 Hydralazine HCl (Apresoline) 20 mg Q4H PRN IV SBP > 170; Start 07/26/16 at 23: 00 MARIBELL SUN MD Jul 27, 2016 11:07
--- NOTE | 2016-07-27 11:40 | CONS ---
DATE OF ADMISSION: 07/24/2016 DATE OF CONSULTATION: 07/27/2016 INFECTIOUS DISEASE CONSULT. REASON FOR CONSULTATION: Carbapenemase producing Klebsiella, antibiotic recommendations. CONSULTING PHYSICIAN: Dr. Susi Germain and nurse practitioner David Benavides. HISTORY OF PRESENT ILLNESS: I would like to thank the aforementioned practitioners for consulting u s in this patient's care. This is a very unfortunate 70-year-old male with past medical history of COPD, encephalopathy who is a subacute resident on trach, who was admitted with sepsis. The patient has been noted to have a carbapenemase Klebsiella UTI and probable pneumonia. He has been on cefep bora. His white blood cell count is decreased. His hemodynamics have improved. PAST MEDICAL HISTORY: Again, obtained from detailed chart review only. COPD and encephalopathy, wh ich appears to be chronic, and respiratory failure on trach. CURRENT MEDICATIONS: He is currently on: 1. Cefepime 2. Hydralazine. 3. Lovenox. 4. Pepcid. 5. Pain control medications. PHYSICAL EXAMINATION: VITAL SIGNS: He has a temperature up to 100.9, blood pressure 143/68, pulse ox 93. GENERAL: He is in no apparent distress. He is lethargic but arousable. CHEST: Bilateral rhonchi. CARDIOVASCULAR: Regular rate and rhythm. ABDOMEN: Soft. LABORATORY DATA: Laboratory work reviewed. White blood cell count 8.6, hemoglobin 10.7, hematocrit 33.4, platelets of 323. Chemistry shows a BUN of 16, creatinine 0.47, potassium 2.9. Coags review ed. Urine tests reviewed, cloudy urine, 1+ bilirubin, 1+ leukocyte esterase, greater than 200 WBCs, 3+ hemoglobin, 2+ protein. Serology: Hepatitis A IgM antibody nonreactive, C reactive. MICROBIOLOGY STUDIES: Urine culture shows Klebsiella pneumoniae carbapenemase producing. Blood cul tures no growth to date. IMAGING STUDIES: Shows bilateral infiltrates. Previous abdominal ultrasound done in June shows mildly enlarged liver, echogenic sludge in the gallbladder. ASSESSMENT: 1. Probable UTI secondary to carbapenemase producing Klebsiella and probable healthcare-associated pneumonia. 2. Colonization with carbapenemase producing organism. 3. Respiratory failure. 4. Encephalopathy. 5. Hepatitis C. RECOMMENDATIONS: 1. Levaquin. 2. Monitor liver function tests. 3. Monitor white blood cell count and fever curve. 4. We will likely need to complete a 10 to 14-day course of . We will be happy to follow him here and in the intermediate environment closely with you. I have al so ordered respiratory culture, influenza screen, MRSA nasal screen, procalcitonin and lactic acid. Dictated By: MARIBELL SUN MD /NTS Conf#: [id number] DID#: [id number]
[2016-07-27] MEDS: LEVOFLOXACIN 750MG/D5W (PMX) 150 ML IVPB SCH (13:57)
--- NOTE | 2016-07-27 15:33 | PN ---
Date/Time of Note Date/Time of Note DATE: 07/27/16 TIME: 15:32 Assessment/Plan VTE Prophylaxis VTE Prophylaxis Intervention: other Lines/Catheters IV Catheter Type (from Nrs): Saline Lock Urinary Cath still in place: Yes Reason Cath still needed: skin wounds contaminated by urine Assessment/Plan Chief Complaint/Hosp Course 1) pneumonia - intravenous antibiotics - monitor clinically 2) respiratory failure - consult pulmonary to evaluate and aid in care 3) encephalopathy - monitor Problems: Subjective 24 Hr Interval Summary Free Text/Dictation Patient has no complaints Exam/Review of Systems Vital Signs Vitals Vital Signs Date Time Temp Pulse Resp B/P Pulse Ox O2 Delivery O2 Flow Rate FiO2 07/27/16 12:36 100 07/27/16 12:20 99.2 21 146/93 91 07/27/16 09:11 10.0 40 07/27/16 05:00 Aerosol T Tube Intake and Output 07/26/16 07/26/16 07/27/16 15:00 23:00 07:00 Output Total 1700 ml 1300 ml Balance -1700 ml -1300 ml Exam Constitutional: alert Neck: supple Respiratory: clear to auscultation Cardiovascular: regular rate and rhythm Gastrointestinal: ascites, soft Extremities: normal pulses Results Result Diagram: 07/27/16 0720 07/27/16 0720 Results 24 hrs Laboratory Tests Test 07/27/16 07:20 07/27/16 14:42 Anion Gap 19 H Basophils # 0.1 Basophils % 0.7 Blood Morphology Comment Blood Urea Nitrogen 16 Calcium Level 8.9 Carbon Dioxide Level 28 Chloride Level 99 Creatinine 0.47 L Eosinophils # 0.1 Eosinophils % 0.7 Glucose Level 86 Hematocrit 33.4 L Hemoglobin 10.7 L Lymphocytes # 1.6 Lymphocytes % 19.0 Mean Corpuscular Hemoglobin 27.1 L Mean Corpuscular Hemoglobin Concent 32.0 Mean Corpuscular Volume 84.9 Mean Platelet Volume 10.5 H Monocytes # 0.8 Monocytes % 9.3 Neutrophils # 6.1 Neutrophils % 70.3 Nucleated Red Blood Cells # 0.0 Nucleated Red Blood Cells % 0.0 Platelet Count 323 Potassium Level 2.9 *L Red Blood Count 3.94 L Red Cell Distribution Width 17.8 H Sodium Level 143 White Blood Count 8.6 # Lactic Acid Level 1.0 Medications Medications Current Medications Ondansetron HCl (Zofran Inj) 4 mg Q6H PRN IV NAUSEA AND/OR VOMITING; Start at 14:00 Acetaminophen (Tylenol Tab) 650 mg Q6H PRN PO PAIN LEVEL 1-3 OR FEVER; Start 07/24/16 at 14:00 Morphine Sulfate (morphine) 2 mg Q4H PRN IV PAIN LEVEL 7-10; Start 07/24/16 at 14:00 Famotidine (Pepcid Iv) 20 mg DAILY IV Last administered on 07/27/16at 09:18; Admin Dose 20 MG; Start 07/24/16 at 21:00 Enoxaparin Sodium (Lovenox) 30 mg DAILY SC Last administered on 07/27/16at 09: 19; Admin Dose 30 MG; Start 07/25/16 at 09:00 Hydralazine HCl 20 mg 20 mg Q4H PRN IV SBP > 170; Start 07/26/16 at 23:00 Levofloxacin/ Dextrose 150 ml @ 100 mls/hr Q24H IVPB Last administered on at 13:57; Admin Dose 100 MLS/HR; Start 07/27/16 at 13:00; Stop 08/06/16 at 12:59 Potassium Chloride/Sodium Chloride (KCl/1/2 NS) 1,020 ml @ 80 mls/hr [id number] IV ; Start 07/27/16 at 16:00; Stop 07/28/16 at 04:44 OLI ZUNIGA Jul 27, 2016 15:33
[2016-07-27] MEDS ORDERED: POTASSIUM CHLORIDE 40 MEQ in SOD CHLORIDE 0.45% 1,000 ML IV SCH (16:00)
[2016-07-28] VITALS (12 sets, daily range): BP systolic 135–150; BP diastolic 76–90; PULSE 89–103; RESP 18–20
[2016-07-28] MEDS ORDERED: VITAMIN A & D 5 GM OINT PACKET TOP ONE (04:37)
[2016-07-28] MEDS ORDERED: SOD CHLORIDE 0.9% 1,000 ML IV SCH (04:45)
[2016-07-28 07:15] LABS: BASOPHILS % 0.2 % (0.0-2.0); EOSINOPHILS # 0.1 10^3/ul (0.0-0.5); EOSINOPHILS % 1.2 % (0.0-7.0); HEMATOCRIT 33.4 % (42.0-52.0); HEMOGLOBIN 10.7 g/dl (14.0-18.0); LYMPHOCYTES % 22.4 % (15.0-51.0); MEAN CORPUSCULAR HEMOGLOBIN 27.1 pg (29.0-33.0); MEAN CORPUSCULAR VOLUME 84.6 fl (82.0-101.0); MEAN PLATELET VOLUME 10.8 fl (7.4-10.4); MONOCYTE # 0.8 10^3/ul (0.3-0.9); MONOCYTES % 8.8 % (0.0-11.0); NEUTROPHIL # 6.2 10^3/ul (1.6-7.5); NEUTROPHILS % 67.4 % (39.0-77.0); PLATELET COUNT 339 10^3/UL (140-440); RED BLOOD COUNT 3.94 10^6/ul (4.70-6.10); RED CELL DISTRIBUTION WIDTH 18.3 % (11.5-14.5); UNCORRECTED WBC 9.1 10^3/ul (4.8-10.8); WHITE BLOOD COUNT 9.1 10^3/ul (4.8-10.8)
[2016-07-28 07:22] LABS: POTASSIUM 3.2 mmol/L (3.5-5.1)
[2016-07-28 07:24] LABS: CONDITION 1; CREATININE 0.5 mg/dl (0.61-1.24); LH ANALYZER COMMENTS 1; SUSPECT 1
[2016-07-28 07:25] LABS: CALCIUM 8.9 mg/dl (8.4-10.2)
[2016-07-28] MEDS: ENOXAPARIN 30 MG/0.3 ML SYG SC SCH (08:36)
[2016-07-28] MEDS: FAMOTIDINE 20 MG INJ IV SCH (08:36)
--- NOTE | 2016-07-28 10:06 | CONS ---
Date/Time of Note Date/Time of Note DATE: 07/28/16 TIME: 10:00 Assessment/Plan Assessment/Plan Chief Complaint/Hosp Course ASSESSMENT: 1. Probable UTI secondary to carbapenemase producing Klebsiella and probable healthcare-associated pneumonia. 2. Colonization with carbapenemase producing organism. 3. Respiratory failure. 4. Encephalopathy. 5. Hepatitis C. 6. Bcx likely contaminant RECOMMENDATIONS: 1. cont. Levaquin.-We will likely need to complete a 10 to 14-day course 2. Monitor liver function tests. 3. Monitor white blood cell count and fever curve. 4. repeat bcxs Problems: Consultation Date/Type/Reason Admit Date/Time Jul 24, 2016 at 13:21 Exam/Review of Systems Vital Signs Vitals Vital Signs Date Time Temp Pulse Resp B/P Pulse Ox O2 Delivery O2 Flow Rate FiO2 07/28/16 09:33 98.4 94 18 143/87 95 07/28/16 04:40 Aerosol 10.0 60 Intake and Output 07/27/16 07/27/16 07/28/16 15:00 23:00 07:00 Intake Total 310 ml Output Total 1300 ml 350 ml Balance -990 ml -350 ml Results Result Diagram: 07/28/16 0615 07/28/16 0615 Results 24 hrs Laboratory Tests Test 07/27/16 14:42 07/28/16 06:15 Lactic Acid Level 1.0 Anion Gap 18 H Basophils # 0.0 Basophils % 0.2 Blood Morphology Comment Blood Urea Nitrogen 16 Calcium Level 8.9 Carbon Dioxide Level 28 Chloride Level 103 Creatinine 0.50 L Eosinophils # 0.1 Eosinophils % 1.2 Glucose Level 87 Hematocrit 33.4 L Hemoglobin 10.7 L Lymphocytes # 2.0 Lymphocytes % 22.4 Mean Corpuscular Hemoglobin 27.1 L Mean Corpuscular Hemoglobin Concent 32.0 Mean Corpuscular Volume 84.6 Mean Platelet Volume 10.8 H Monocytes # 0.8 Monocytes % 8.8 Neutrophils # 6.2 Neutrophils % 67.4 Nucleated Red Blood Cells # 0.0 Nucleated Red Blood Cells % 0.0 Platelet Count 339 Potassium Level 3.2 L Red Blood Count 3.94 L Red Cell Distribution Width 18.3 H Sodium Level 146 H White Blood Count 9.1 Medications Medications Current Medications Ondansetron HCl (Zofran Inj) 4 mg Q6H PRN IV NAUSEA AND/OR VOMITING; Start at 14:00 Acetaminophen (Tylenol Tab) 650 mg Q6H PRN PO PAIN LEVEL 1-3 OR FEVER; Start 07/24/16 at 14:00 Morphine Sulfate (morphine) 2 mg Q4H PRN IV PAIN LEVEL 7-10; Start 07/24/16 at 14:00 Famotidine (Pepcid Iv) 20 mg DAILY IV Last administered on 07/28/16at 08:36; Admin Dose 20 MG; Start 07/24/16 at 21:00 Enoxaparin Sodium (Lovenox) 30 mg DAILY SC Last administered on 07/28/16at 08: 36; Admin Dose 30 MG; Start 07/25/16 at 09:00 Hydralazine HCl 20 mg 20 mg Q4H PRN IV SBP > 170; Start 07/26/16 at 23:00 Levofloxacin/ Dextrose 150 ml @ 100 mls/hr Q24H IVPB Last administered on at 13:57; Admin Dose 100 MLS/HR; Start 07/27/16 at 13:00; Stop 08/06/16 at 12:59 Sodium Chloride (NS) 1,000 ml @ 100 mls/hr Q10H IV Last administered on at 05:33; Admin Dose 100 MLS/HR; Start 07/28/16 at 04:45 MARIBELL SUN MD Jul 28, 2016 10:06
[2016-07-28] MEDS: LEVOFLOXACIN 750MG/D5W (PMX) 150 ML IVPB SCH (12:11)
--- NOTE | 2016-07-28 14:19 | PN ---
Date/Time of Note Date/Time of Note DATE: 07/28/16 TIME: 14:18 Assessment/Plan VTE Prophylaxis VTE Prophylaxis Intervention: LMWH Lines/Catheters IV Catheter Type (from Nrs): Saline Lock Urinary Cath still in place: Yes Reason Cath still needed: skin wounds contaminated by urine Assessment/Plan Chief Complaint/Hosp Course 1) pneumonia - intravenous antibiotics - monitor clinically 2) respiratory failure - consult pulmonary to evaluate and aid in care 3) encephalopathy - monitor Problems: Subjective 24 Hr Interval Summary Free Text/Dictation Patient is comfortable Exam/Review of Systems Vital Signs Vitals Vital Signs Date Time Temp Pulse Resp B/P Pulse Ox O2 Delivery O2 Flow Rate FiO2 07/28/16 13:27 92 26 97 Aerosol 10.0 60 07/28/16 11:39 98.1 150/90 Intake and Output 07/27/16 07/27/16 07/28/16 15:00 23:00 07:00 Intake Total 310 ml Output Total 1300 ml 350 ml Balance -990 ml -350 ml Exam Constitutional: well developed Neck: supple Respiratory: diminished breath sounds Cardiovascular: regular rate and rhythm Gastrointestinal: non-tender, soft Extremities: normal pulses Results Result Diagram: 07/28/16 0615 07/28/16 0615 Results 24 hrs Laboratory Tests Test 07/27/16 14:42 07/28/16 06:15 Lactic Acid Level 1.0 Anion Gap 18 H Basophils # 0.0 Basophils % 0.2 Blood Morphology Comment Blood Urea Nitrogen 16 Calcium Level 8.9 Carbon Dioxide Level 28 Chloride Level 103 Creatinine 0.50 L Eosinophils # 0.1 Eosinophils % 1.2 Glucose Level 87 Hematocrit 33.4 L Hemoglobin 10.7 L Lymphocytes # 2.0 Lymphocytes % 22.4 Mean Corpuscular Hemoglobin 27.1 L Mean Corpuscular Hemoglobin Concent 32.0 Mean Corpuscular Volume 84.6 Mean Platelet Volume 10.8 H Monocytes # 0.8 Monocytes % 8.8 Neutrophils # 6.2 Neutrophils % 67.4 Nucleated Red Blood Cells # 0.0 Nucleated Red Blood Cells % 0.0 Platelet Count 339 Potassium Level 3.2 L Red Blood Count 3.94 L Red Cell Distribution Width 18.3 H Sodium Level 146 H White Blood Count 9.1 Medications Medications Current Medications Ondansetron HCl (Zofran Inj) 4 mg Q6H PRN IV NAUSEA AND/OR VOMITING; Start at 14:00 Acetaminophen (Tylenol Tab) 650 mg Q6H PRN PO PAIN LEVEL 1-3 OR FEVER; Start 07/24/16 at 14:00 Morphine Sulfate (morphine) 2 mg Q4H PRN IV PAIN LEVEL 7-10; Start 07/24/16 at 14:00 Famotidine (Pepcid Iv) 20 mg DAILY IV Last administered on 07/28/16at 08:36; Admin Dose 20 MG; Start 07/24/16 at 21:00 Enoxaparin Sodium (Lovenox) 30 mg DAILY SC Last administered on 07/28/16at 08: 36; Admin Dose 30 MG; Start 07/25/16 at 09:00 Hydralazine HCl 20 mg 20 mg Q4H PRN IV SBP > 170; Start 07/26/16 at 23:00 Levofloxacin/ Dextrose 150 ml @ 100 mls/hr Q24H IVPB Last administered on at 12:11; Admin Dose 100 MLS/HR; Start 07/27/16 at 13:00; Stop 08/06/16 at 12:59 Sodium Chloride (NS) 1,000 ml @ 100 mls/hr Q10H IV Last administered on at 05:33; Admin Dose 100 MLS/HR; Start 07/28/16 at 04:45 OLI ZUNIGA Jul 28, 2016 14:19
[2016-07-28] MEDS: NS + KCL 20 MEQ 1,000 ML IV SCH (15:01)
[2016-07-29] VITALS (11 sets, daily range): BP systolic 137–164; BP diastolic 79–93; PULSE 89–102; RESP 17–19
[2016-07-29] MEDS: NS + KCL 20 MEQ 1,000 ML IV SCH ×2 (04:28→20:15)
[2016-07-29] MEDS: FAMOTIDINE 20 MG INJ IV SCH (08:13)
[2016-07-29] MEDS: ENOXAPARIN 30 MG/0.3 ML SYG SC SCH (08:21)
--- NOTE | 2016-07-29 11:33 | CONS ---
Date/Time of Note Date/Time of Note DATE: 07/29/16 TIME: 11:32 Assessment/Plan Assessment/Plan Chief Complaint/Hosp Course ASSESSMENT: 1. Sepsis d/t UTI and HCAP. Lactic acidosis and leukocytosis resolved. Tachycardia and low grade fever improved. 2. Klebsiella pneumoniae carbapenemase UTI - on levaquin 3. Healthcare associated pneumonia - Respiratory cx growing GNR 4. Chronic respiratory failure with trach 5. COPD 6. Chronic encephalopathy 7. Dysphagia s/p PEG 8. Hepatitis C. 9. Colostomy 10. GPR bacteremia likely contaminant 11. Hypokalemia 12. Anemia RECOMMENDATIONS: - Continue Levaquin (07/27/16-) for a 10 to 14-day course - F/u procalcitonin (07/27 pending) - F/u repeat blood cx (negative to date) - Monitor liver function tests (stable) - Monitor white blood cell count and fever curve (improved) - Above d/w Dr. Tang Problems: Consultation Date/Type/Reason Admit Date/Time Jul 24, 2016 at 13:21 Initial Consult Date 07/27/2016 Type of Consultation: Infectious Disease Reason for Consultation Antibiotic management Referring Provider: OLI ZUNIGA 24 HR Interval Summary Free Text/Dictation Remains afebrile with chronic encephalopathy and clinically unchanged and Full Code status per [facility]. Still with tracheostomy on t-piece, NGT to sxn, colostomy functioning and DTI on coccyx per Nursing. Subjective hx not possible: pt non-verbal Exam/Review of Systems Vital Signs Vitals Vital Signs Date Time Temp Pulse Resp B/P Pulse Ox O2 Delivery O2 Flow Rate FiO2 07/29/16 08:20 89 95 Aerosol 10.0 40 T Tube 07/29/16 07:26 97.6 18 164/93 Intake and Output 07/28/16 07/28/16 07/29/16 14:59 22:59 06:59 Intake Total 790 ml 860 ml Output Total 350 ml 300 ml Balance 440 ml 560 ml Exam Constitutional: frail, other (thin, chronically debilitated) Head: atraumatic, normocephalic Eyes: PERRL, nl sclera ENMT: other (Mouth open, mucosa pink and dry) Neck: other (tracheostomy midline and intact) Respiratory: diminished breath sounds, No wheezing Cardiovascular: nl pulses, regular rate and rhythm Gastrointestinal: bowel sounds, other (NGT to sxn, PEG clamped and intact, colostomy with soft brown stool), soft Genitourinary - Male: other (Hcaudhari cath intact with clear carla urine) Musculoskeletal: muscle weakness, other (Bilateral foot drop noted) Extremities: No clubbing, No cyanosis, No edema Neurological: unresponsive Skin: other (warm, dry with moistness noted on forehead; DTI on sacral area ( see nurses note for details)) Results Result Diagram: 07/28/16 0615 07/28/16 0615 Results 24 hrs Blood cx 07/28/16: BLOOD CULTURE Preliminary NO GROWTH AFTER 1 DAY Influenza A & B 07/28/16: INFLUENZA A & B BY EIA Final INFLU A&B BY EIA INFLUENZA A NEGATIVE (Ref Range Neg) INFLUENZA B NEGATIVE (Ref Range Neg) MRSA screen 07/27/16: Negative Respiratory cx 07/27/16: GRAM STAIN Final POLYMORPH. LEUKOCYTE 3+ GRAM POS COCCI IN PAIRS RARE GRAM NEGATIVE RODS 2+ RESPIRATORY CULTURE Preliminary Organism 1 GRAM NEGATIVE TAISHA QUANTITY 2+ Organism 2 GRAM NEGATIVE TAISHA#2 QUANTITY 2+ Urine cx 07/24/16: URINE CULTURE Final Organism 1 KLEChikis PNEUMONIAE CARBAPENEMASE COLONY COUNT >100,000 CFU/ml . MULTI DRUG RESISTANT ORGANISM Phoned [facility] and Pharmacy at 1253 07/26/16 by AT. BETTY CARPENTER [facility] RX --------- --- AMIKACIN >64 R CEFAZOLIN R CEFEPIME R CEFOTAXIME R CEFTAZIDIME >=64 R CIPROFLOXACIN 2 I GENTAMICIN >=16 R IMIPENEM R LEVOFLOXACIN 1 S NITROFURANTOIN 32 S TOBRAMYCIN >=16 R TRIMETHOPRIM/SULFAMETHOXAZOLE >=320 R PIPERACILLIN/TAZOBACTAM >=128 R Blood cx 07/24/16: BLOOD CULTURE Preliminary BCULT GRAM BOTTLE 1 Gram positive rods . seen on gram stain of the broth Organism 1 GRAM POSITIVE TAISHA Medications Medications Current Medications Ondansetron HCl (Zofran Inj) 4 mg Q6H PRN IV NAUSEA AND/OR VOMITING; Start at 14:00 Acetaminophen (Tylenol Tab) 650 mg Q6H PRN PO PAIN LEVEL 1-3 OR FEVER; Start 07/24/16 at 14:00 Morphine Sulfate (morphine) 2 mg Q4H PRN IV PAIN LEVEL 7-10; Start 07/24/16 at 14:00 Famotidine (Pepcid Iv) 20 mg DAILY IV Last administered on 07/29/16at 08:13; Admin Dose 20 MG; Start 07/24/16 at 21:00 Enoxaparin Sodium (Lovenox) 30 mg DAILY SC Last administered on 07/29/16at 08: 21; Admin Dose 30 MG; Start 07/25/16 at 09:00 Hydralazine HCl 20 mg 20 mg Q4H PRN IV SBP > 170; Start 07/26/16 at 23:00 Levofloxacin/ Dextrose 150 ml @ 100 mls/hr Q24H IVPB Last administered on at 12:11; Admin Dose 100 MLS/HR; Start 07/27/16 at 13:00; Stop 08/06/16 at 12:59 Potassium Chloride/Sodium Chloride (NS-KCl 20 Meq) 1,000 ml @ 80 mls/hr [id number] IV Last administered on 07/29/16at 04:28; Admin Dose 80 MLS/HR; Start 07/28/16 at 14:30 Procedures Procedures CXR 07/24/16: Calcified atherosclerosis in the aorta. Hypoinflated lungs with atelectasis versus mild infiltrates at the lung bases. Stable left rib fractures. KO LOVING NP Jul 29, 2016 11:33
[2016-07-29] MEDS: LEVOFLOXACIN 750MG/D5W (PMX) 150 ML IVPB SCH (12:22)
--- NOTE | 2016-07-29 14:34 | PN ---
Date/Time of Note Date/Time of Note DATE: 07/29/16 TIME: 14:33 Assessment/Plan VTE Prophylaxis VTE Prophylaxis Intervention: other Lines/Catheters IV Catheter Type (from Nrs): Saline Lock Urinary Cath still in place: Yes Reason Cath still needed: skin wounds contaminated by urine Assessment/Plan Chief Complaint/Hosp Course 1) pneumonia - intravenous antibiotics - monitor clinically 2) respiratory failure - consult pulmonary to evaluate and aid in care 3) encephalopathy - monitor Problems: Subjective 24 Hr Interval Summary Free Text/Dictation Patient has no complaints. Exam/Review of Systems Vital Signs Vitals Vital Signs Date Time Temp Pulse Resp B/P Pulse Ox O2 Delivery O2 Flow Rate FiO2 07/29/16 14:03 96 92 Aerosol 10.0 40 07/29/16 11:57 98.8 19 145/79 Intake and Output 07/28/16 07/28/16 07/29/16 14:59 22:59 06:59 Intake Total 790 ml 860 ml Output Total 350 ml 300 ml Balance 440 ml 560 ml Exam Constitutional: well developed Neck: supple Respiratory: diminished breath sounds Cardiovascular: regular rate and rhythm Gastrointestinal: non-tender, soft Extremities: normal pulses Results Result Diagram: 07/28/1661407/28/16614 Medications Medications Current Medications Ondansetron HCl (Zofran Inj) 4 mg Q6H PRN IV NAUSEA AND/OR VOMITING; Start at 14:00 Acetaminophen (Tylenol Tab) 650 mg Q6H PRN PO PAIN LEVEL 1-3 OR FEVER; Start 07/24/16 at 14:00 Morphine Sulfate (morphine) 2 mg Q4H PRN IV PAIN LEVEL 7-10; Start 07/24/16 at 14:00 Famotidine (Pepcid Iv) 20 mg DAILY IV Last administered on 07/29/16at 08:13; Admin Dose 20 MG; Start 07/24/16 at 21:00 Enoxaparin Sodium (Lovenox) 30 mg DAILY SC Last administered on 07/29/16at 08: 21; Admin Dose 30 MG; Start 07/25/16 at 09:00 Hydralazine HCl 20 mg 20 mg Q4H PRN IV SBP > 170; Start 07/26/16 at 23:00 Levofloxacin/ Dextrose 150 ml @ 100 mls/hr Q24H IVPB Last administered on at 12:22; Admin Dose 100 MLS/HR; Start 07/27/16 at 13:00; Stop 08/06/16 at 12:59 Potassium Chloride/Sodium Chloride (NS-KCl 20 Meq) 1,000 ml @ 80 mls/hr [id number] IV Last administered on 07/29/16at 04:28; Admin Dose 80 MLS/HR; Start 07/28/16 at 14:30 OLI ZUNIGA Jul 29, 2016 14:34
[2016-07-30] VITALS (13 sets, daily range): BP systolic 135–175; BP diastolic 84–92; PULSE 77–190; RESP 17–23
[2016-07-30] MEDS: ENOXAPARIN 30 MG/0.3 ML SYG SC SCH (09:27)
[2016-07-30] MEDS: NS + KCL 20 MEQ 1,000 ML IV SCH ×2 (09:28→16:30)
[2016-07-30] MEDS: FAMOTIDINE 20 MG INJ IV SCH (09:28)
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
[2016-07-30] MEDS: LEVOFLOXACIN 750MG/D5W (PMX) 150 ML IVPB SCH (12:48)
--- NOTE | 2016-07-30 15:14 | PN ---
Date/Time of Note Date/Time of Note DATE: 07/30/16 TIME: 15:13 Assessment/Plan VTE Prophylaxis VTE Prophylaxis Intervention: other Lines/Catheters IV Catheter Type (from Nrsg): Peripheral IV Urinary Cath still in place: Yes Reason Cath still needed: skin wounds contaminated by urine Assessment/Plan Chief Complaint/Hosp Course 1) pneumonia - intravenous antibiotics - monitor clinically 2) respiratory failure - consult pulmonary to evaluate and aid in care 3) encephalopathy - monitor Problems: Subjective 24 Hr Interval Summary Free Text/Dictation Patient is resting comfortably Exam/Review of Systems Vital Signs Vitals Vital Signs Date Time Temp Pulse Resp B/P Pulse Ox O2 Delivery O2 Flow Rate FiO2 07/30/16 12:53 96 07/30/16 12:34 98.3 20 151/91 100 07/30/16 12:15 Aerosol Mask 10.0 40 Intake and Output 07/29/16 07/29/16 07/30/16 14:59 22:59 06:59 Intake Total 0 ml 0 ml Output Total 300 ml 500 ml Balance -300 ml -500 ml Exam Constitutional: well developed Neck: supple Respiratory: diminished breath sounds Cardiovascular: regular rate and rhythm Gastrointestinal: non-tender, soft Extremities: normal pulses Results Result Diagram: 07/28/1661407/28/16614 Medications Medications Current Medications Ondansetron HCl (Zofran Inj) 4 mg Q6H PRN IV NAUSEA AND/OR VOMITING; Start at 14:00 Acetaminophen (Tylenol Tab) 650 mg Q6H PRN PO PAIN LEVEL 1-3 OR FEVER; Start 07/24/16 at 14:00 Morphine Sulfate (morphine) 2 mg Q4H PRN IV PAIN LEVEL 7-10; Start 07/24/16 at 14:00 Famotidine (Pepcid Iv) 20 mg DAILY IV Last administered on 07/30/16at 09:28; Admin Dose 20 MG; Start 07/24/16 at 21:00 Enoxaparin Sodium (Lovenox) 30 mg DAILY SC Last administered on 07/30/16at 09: 27; Admin Dose 30 MG; Start 07/25/16 at 09:00 Hydralazine HCl 20 mg 20 mg Q4H PRN IV SBP > 170; Start 07/26/16 at 23:00 Levofloxacin/ Dextrose 150 ml @ 100 mls/hr Q24H IVPB Last administered on at 12:48; Admin Dose 100 MLS/HR; Start 07/27/16 at 13:00; Stop 08/06/16 at 12:59 Potassium Chloride/Sodium Chloride (NS-KCl 20 Meq) 1,000 ml @ 80 mls/hr [id number] IV Last administered on 07/30/16at 09:28; Admin Dose 80 MLS/HR; Start 07/28/16 at 14:30 OLI ZUNIGA Jul 30, 2016 15:14
[2016-07-31] VITALS (15 sets, daily range): BP systolic 138–178; BP diastolic 81–94; PULSE 80–197; RESP 18–20
[2016-07-31] MEDS: NS + KCL 20 MEQ 1,000 ML IV SCH ×3 (05:00→18:32)
[2016-07-31 07:10] LABS: EOSINOPHILS % 0.7 % (0.0-7.0); HEMATOCRIT 33.3 % (42.0-52.0); HEMOGLOBIN 10.4 g/dl (14.0-18.0); LYMPHOCYTES # 1.5 10^3/ul (0.8-2.9); MEAN CORPUSCULAR HEMOGLOBIN 26.5 pg (29.0-33.0); MEAN CORPUSCULAR HGB CONC 31.3 g/dl (32.0-37.0); MEAN CORPUSCULAR VOLUME 84.6 fl (82.0-101.0); MEAN PLATELET VOLUME 10.6 fl (7.4-10.4); MONOCYTE # 0.9 10^3/ul (0.3-0.9); MONOCYTES % 11.8 % (0.0-11.0); NEUTROPHIL # 4.8 10^3/ul (1.6-7.5); NEUTROPHILS % 66.5 % (39.0-77.0); PLATELET COUNT 357 10^3/UL (140-440); RED BLOOD COUNT 3.94 10^6/ul (4.70-6.10); UNCORRECTED WBC 7.3 10^3/ul (4.8-10.8); WHITE BLOOD COUNT 7.3 10^3/ul (4.8-10.8)
[2016-07-31 07:12] LABS: CONDITION 1; LH ANALYZER COMMENTS 1
[2016-07-31 07:34] LABS: POTASSIUM 3.3 mmol/L (3.5-5.1)
[2016-07-31 07:36] LABS: CREATININE 0.49 mg/dl (0.61-1.24)
[2016-07-31 07:37] LABS: CALCIUM 8.8 mg/dl (8.4-10.2)
[2016-07-31] MEDS: ENOXAPARIN 30 MG/0.3 ML SYG SC SCH (09:38)
[2016-07-31] MEDS: FAMOTIDINE 20 MG INJ IV SCH (09:38)
--- NOTE | 2016-07-31 10:34 | PN ---
Date/Time of Note Date/Time of Note DATE: 07/31/16 TIME: 10:33 Assessment/Plan VTE Prophylaxis VTE Prophylaxis Intervention: other Lines/Catheters IV Catheter Type (from Nrs): Peripheral IV Urinary Cath still in place: Yes Reason Cath still needed: skin wounds contaminated by urine Assessment/Plan Chief Complaint/Hosp Course 1) pneumonia - intravenous antibiotics - monitor clinically 2) respiratory failure - consult pulmonary to evaluate and aid in care 3) encephalopathy - monitor Problems: Subjective 24 Hr Interval Summary Free Text/Dictation Patient resting comfortably, trach in place Exam/Review of Systems Vital Signs Vitals Vital Signs Date Time Temp Pulse Resp B/P Pulse Ox O2 Delivery O2 Flow Rate FiO2 07/31/16 08:22 80 07/31/16 07:40 98.2 19 146/84 95 07/31/16 04:00 Trach Collar 10.0 07/31/16 01:35 40 Intake and Output 07/30/16 07/30/16 07/31/16 15:00 23:00 07:00 Intake Total 1030 ml 0 ml Output Total 600 ml 400 ml Balance 430 ml -400 ml Exam Constitutional: well developed Head: atraumatic, normocephalic Neck: supple Respiratory: diminished breath sounds Cardiovascular: regular rate and rhythm Gastrointestinal: non-tender, soft Extremities: normal pulses Results Result Diagram: 07/31/16 0554 07/31/16 0554 Results 24 hrs Laboratory Tests Test 07/31/16 05:54 Anion Gap 17 H Basophils # 0.0 Basophils % 0.0 Blood Morphology Comment Blood Urea Nitrogen 12 Calcium Level 8.8 Carbon Dioxide Level 26 Chloride Level 113 H Creatinine 0.49 L Eosinophils # 0.0 Eosinophils % 0.7 Glucose Level 87 Hematocrit 33.3 L Hemoglobin 10.4 L Lymphocytes # 1.5 Lymphocytes % 21.0 Mean Corpuscular Hemoglobin 26.5 L Mean Corpuscular Hemoglobin Concent 31.3 L Mean Corpuscular Volume 84.6 Mean Platelet Volume 10.6 H Monocytes # 0.9 Monocytes % 11.8 H Neutrophils # 4.8 Neutrophils % 66.5 Nucleated Red Blood Cells # 0.0 Nucleated Red Blood Cells % 0.0 Platelet Count 357 Potassium Level 3.3 L Red Blood Count 3.94 L Red Cell Distribution Width 18.0 H Sodium Level 153 H White Blood Count 7.3 Medications Medications Current Medications Ondansetron HCl (Zofran Inj) 4 mg Q6H PRN IV NAUSEA AND/OR VOMITING; Start at 14:00 Acetaminophen (Tylenol Tab) 650 mg Q6H PRN PO PAIN LEVEL 1-3 OR FEVER; Start 07/24/16 at 14:00 Morphine Sulfate (morphine) 2 mg Q4H PRN IV PAIN LEVEL 7-10; Start 07/24/16 at 14:00 Famotidine (Pepcid Iv) 20 mg DAILY IV Last administered on 07/31/16at 09:38; Admin Dose 20 MG; Start 07/24/16 at 21:00 Enoxaparin Sodium (Lovenox) 30 mg DAILY SC Last administered on 07/31/16at 09: 38; Admin Dose 30 MG; Start 07/25/16 at 09:00 Hydralazine HCl 20 mg 20 mg Q4H PRN IV SBP > 170; Start 07/26/16 at 23:00 Levofloxacin/ Dextrose 150 ml @ 100 mls/hr Q24H IVPB Last administered on at 12:48; Admin Dose 100 MLS/HR; Start 07/27/16 at 13:00; Stop 08/06/16 at 12:59 Potassium Chloride/Sodium Chloride (NS-KCl 20 Meq) 1,000 ml @ 80 mls/hr [id number] IV Last administered on 07/31/16at 05:00; Admin Dose 80 MLS/HR; Start 07/28/16 at 14:30 OLI ZUNIGA Jul 31, 2016 10:34
[2016-07-31] MEDS ORDERED: LEVALBUTEROL (HFA) 15 GM INHALER INH PRN (12:00)
[2016-07-31] MEDS ORDERED: LEVALBUTEROL (NEB) 0.63 MG/3 ML AMP HHN PRN (13:00)
[2016-07-31] MEDS ORDERED: IPRATROPIUM (NEB) 0.5 MG/2.5 ML AMP HHN SCH (13:00)
[2016-07-31] MEDS: LEVOFLOXACIN 750MG/D5W (PMX) 150 ML IVPB SCH (13:14)
[2016-07-31] MEDS: IPRATROPIUM (NEB) 0.5 MG/2.5 ML AMP HHN SCH ×2 (13:30→20:31)
[2016-07-31] MEDS: LEVALBUTEROL (NEB) 0.63 MG/3 ML AMP HHN SCH ×2 (13:30→20:31)
[2016-07-31] MEDS ORDERED: LEVALBUTEROL (HFA) 15 GM INHALER INH SCH (14:00)
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
[2016-08-01] VITALS (12 sets, daily range): BP systolic 139–180; BP diastolic 69–97; PULSE 78–96; RESP 17–20
[2016-08-01] MEDS: IPRATROPIUM (NEB) 0.5 MG/2.5 ML AMP HHN SCH ×4 (01:22→20:36)
[2016-08-01] MEDS: LEVALBUTEROL (NEB) 0.63 MG/3 ML AMP HHN SCH ×4 (01:22→20:36)
[2016-08-01] MEDS: NS + KCL 20 MEQ 1,000 ML IV SCH ×3 (06:27→21:35)
[2016-08-01] MEDS: FAMOTIDINE 20 MG INJ IV SCH ×2 (09:36→21:37)
[2016-08-01] MEDS: ENOXAPARIN 30 MG/0.3 ML SYG SC SCH (09:36)
[2016-08-01] MEDS: LEVOFLOXACIN 750MG/D5W (PMX) 150 ML IVPB SCH (12:48)
[2016-08-01 12:49] LABS: POTASSIUM 3.3 mmol/L (3.5-5.1)
[2016-08-01 12:51] LABS: CREATININE 0.44 mg/dl (0.61-1.24)
[2016-08-01 12:52] LABS: CALCIUM 8.6 mg/dl (8.4-10.2)
--- NOTE | 2016-08-01 13:04 | PN ---
Date/Time of Note Date/Time of Note DATE: 08/01/16 TIME: 13:03 Assessment/Plan VTE Prophylaxis VTE Prophylaxis Intervention: other Lines/Catheters IV Catheter Type (from Nrsg): Peripheral IV Urinary Cath still in place: Yes Reason Cath still needed: skin wounds contaminated by urine Assessment/Plan Chief Complaint/Hosp Course 1) pneumonia - intravenous antibiotics - monitor clinically 2) respiratory failure - consult pulmonary to evaluate and aid in care 3) encephalopathy - monitor Problems: Subjective 24 Hr Interval Summary Free Text/Dictation Patient has no complaints Exam/Review of Systems Vital Signs Vitals Vital Signs Date Time Temp Pulse Resp B/P Pulse Ox O2 Delivery O2 Flow Rate FiO2 08/01/16 12:13 96 08/01/16 12:09 98.3 19 144/69 92 08/01/16 08:08 Aerosol 10.0 40 Intake and Output 07/31/16 07/31/16 08/01/16 15:00 23:00 07:00 Intake Total 1110 ml 0 ml Output Total 800 ml 300 ml Balance 310 ml -300 ml Exam Constitutional: well developed Head: atraumatic, normocephalic Neck: supple Respiratory: diminished breath sounds Cardiovascular: regular rate and rhythm Gastrointestinal: non-tender, soft Extremities: normal pulses Results Result Diagram: 07/31/16 0554 08/01/16 1227 Results 24 hrs Laboratory Tests Test 08/01/16 12:27 Anion Gap 17 H Blood Urea Nitrogen 10 Calcium Level 8.6 Carbon Dioxide Level 26 Chloride Level 111 H Creatinine 0.44 L Glucose Level 83 Potassium Level 3.3 L Sodium Level 151 H Medications Medications Current Medications Ondansetron HCl (Zofran Inj) 4 mg Q6H PRN IV NAUSEA AND/OR VOMITING; Start at 14:00 Acetaminophen (Tylenol Tab) 650 mg Q6H PRN PO PAIN LEVEL 1-3 OR FEVER; Start 07/24/16 at 14:00 Morphine Sulfate (morphine) 2 mg Q4H PRN IV PAIN LEVEL 7-10; Start 07/24/16 at 14:00 Enoxaparin Sodium (Lovenox) 30 mg DAILY SC Last administered on 08/01/16t 09:36 ; Admin Dose 30 MG; Start 07/25/16 at 09:00 Hydralazine HCl 20 mg 20 mg Q4H PRN IV SBP > 170; Start 07/26/16 at 23:00 Levofloxacin/ Dextrose 150 ml @ 100 mls/hr Q24H IVPB Last administered on 12:48; Admin Dose 100 MLS/HR; Start 07/27/16 at 13:00; Stop 08/06/16 at 12: 59 Potassium Chloride/Sodium Chloride (NS-KCl 20 Meq) 1,000 ml @ 80 mls/hr [id number] IV Last administered on 08/01/16 06:27; Admin Dose 80 MLS/HR; Start at 14:30 Famotidine (Pepcid Iv) 20 mg Q12 IV ; Start 08/01/16 at 21:00 OLI ZUNIGA Aug 01, 2016 13:04
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
[2016-08-02] VITALS (13 sets, daily range): BP systolic 132–187; BP diastolic 63–94; PULSE 73–108; RESP 16–24
[2016-08-02] MEDS: LEVALBUTEROL (NEB) 0.63 MG/3 ML AMP HHN SCH ×4 (01:40→19:21)
[2016-08-02] MEDS: IPRATROPIUM (NEB) 0.5 MG/2.5 ML AMP HHN SCH ×4 (01:40→19:21)
[2016-08-02] MEDS: hydrALAzine 20 MG INJ IV PRN ×2 (03:31→12:23)
[2016-08-02] MEDS: FAMOTIDINE 20 MG INJ IV SCH ×2 (09:07→22:35)
[2016-08-02] MEDS: ENOXAPARIN 30 MG/0.3 ML SYG SC SCH (09:09)
[2016-08-02] MEDS: LEVOFLOXACIN 750MG/D5W (PMX) 150 ML IVPB SCH (12:24)
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
--- NOTE | 2016-08-02 13:57 | PN ---
Date/Time of Note Date/Time of Note DATE: 08/02/16 TIME: 13:57 Assessment/Plan VTE Prophylaxis VTE Prophylaxis Intervention: other Lines/Catheters IV Catheter Type (from Nrs): Peripheral IV Urinary Cath still in place: Yes Reason Cath still needed: skin wounds contaminated by urine Assessment/Plan Chief Complaint/Hosp Course 1) pneumonia - intravenous antibiotics - monitor clinically 2) respiratory failure - consult pulmonary to evaluate and aid in care 3) encephalopathy - monitor Problems: Subjective 24 Hr Interval Summary Free Text/Dictation Patient has no complaints Exam/Review of Systems Vital Signs Vitals Vital Signs Date Time Temp Pulse Resp B/P Pulse Ox O2 Delivery O2 Flow Rate FiO2 08/02/16 12:54 132/64 08/02/16 12:19 111 18 99 Aerosol 10.0 40 08/02/16 11:58 98.5 Intake and Output 08/01/16 08/01/16 08/02/16 15:00 23:00 07:00 Intake Total 50 ml 1110 ml 640 ml Output Total 550 ml 820 ml Balance 50 ml 560 ml -180 ml Exam Constitutional: well developed Head: atraumatic, normocephalic Respiratory: clear to auscultation Cardiovascular: regular rate and rhythm Gastrointestinal: non-tender, soft Extremities: normal pulses Results Result Diagram: 07/31/16 0554 08/01/16 1227 Medications Medications Current Medications Ondansetron HCl (Zofran Inj) 4 mg Q6H PRN IV NAUSEA AND/OR VOMITING; Start at 14:00 Acetaminophen (Tylenol Tab) 650 mg Q6H PRN PO PAIN LEVEL 1-3 OR FEVER; Start 07/24/16 at 14:00 Morphine Sulfate (morphine) 2 mg Q4H PRN IV PAIN LEVEL 7-10; Start 07/24/16 at 14:00 Enoxaparin Sodium (Lovenox) 30 mg DAILY SC Last administered on 08/02/16 09:09 ; Admin Dose 30 MG; Start 07/25/16 at 09:00 Hydralazine HCl 20 mg 20 mg Q4H PRN IV SBP > 170 Last administered on 08/02/16 12:23; Admin Dose 20 MG; Start 07/26/16 at 23:00 Levofloxacin/ Dextrose 150 ml @ 100 mls/hr Q24H IVPB Last administered on 12:24; Admin Dose 100 MLS/HR; Start 07/27/16 at 13:00; Stop 08/06/16 at 12: 59 Potassium Chloride/Sodium Chloride (NS-KCl 20 Meq) 1,000 ml @ 80 mls/hr [id number] IV Last administered on 08/01/16 21:35; Admin Dose 80 MLS/HR; Start at 14:30 Famotidine (Pepcid Iv) 20 mg Q12 IV Last administered on 08/02/16 09:07; Admin Dose 20 MG; Start 08/01/16 at 21:00 OLI ZUNIGA Aug 02, 2016 13:57
[2016-08-02 15:01] LABS: EOSINOPHILS # 0.1 10^3/ul (0.0-0.5); EOSINOPHILS % 1.4 % (0.0-7.0); HEMATOCRIT 34.2 % (42.0-52.0); HEMOGLOBIN 10.8 g/dl (14.0-18.0); LYMPHOCYTES # 2.2 10^3/ul (0.8-2.9); LYMPHOCYTES % 27.6 % (15.0-51.0); MEAN CORPUSCULAR HEMOGLOBIN 26.3 pg (29.0-33.0); MEAN CORPUSCULAR HGB CONC 31.5 g/dl (32.0-37.0); MEAN CORPUSCULAR VOLUME 83.7 fl (82.0-101.0); MEAN PLATELET VOLUME 10.8 fl (7.4-10.4); MONOCYTE # 0.8 10^3/ul (0.3-0.9); MONOCYTES % 9.6 % (0.0-11.0); NEUTROPHIL # 4.8 10^3/ul (1.6-7.5); NEUTROPHILS % 61.4 % (39.0-77.0); PLATELET COUNT 347 10^3/UL (140-440); RED BLOOD COUNT 4.08 10^6/ul (4.70-6.10); RED CELL DISTRIBUTION WIDTH 17.6 % (11.5-14.5); UNCORRECTED WBC 7.8 10^3/ul (4.8-10.8); WHITE BLOOD COUNT 7.8 10^3/ul (4.8-10.8)
[2016-08-02 15:17] LABS: CONDITION 1; LH ANALYZER COMMENTS 1; SUSPECT 1
[2016-08-02 15:20] LABS: POTASSIUM 3.1 mmol/L (3.5-5.1)
[2016-08-02 15:22] LABS: CREATININE 0.47 mg/dl (0.61-1.24)
[2016-08-02 15:23] LABS: CALCIUM 8.8 mg/dl (8.4-10.2)
[2016-08-02] MEDS ORDERED: POTASSIUM CHLORIDE 20 MEQ POWDER FOR ORAL SOLN NGT ONE (16:30)
[2016-08-02] MEDS: NS + KCL 20 MEQ 1,000 ML IV SCH (19:30)
[2016-08-03] VITALS (11 sets, daily range): BP systolic 121–163; BP diastolic 66–104; PULSE 82–96; RESP 18–20
[2016-08-03] MEDS: IPRATROPIUM (NEB) 0.5 MG/2.5 ML AMP HHN SCH ×4 (02:17→19:46)
[2016-08-03] MEDS: LEVALBUTEROL (NEB) 0.63 MG/3 ML AMP HHN SCH ×4 (02:17→19:46)
[2016-08-03] MEDS: NS + KCL 20 MEQ 1,000 ML IV SCH ×3 (08:00→20:30)
[2016-08-03] MEDS: FAMOTIDINE 20 MG INJ IV SCH ×2 (08:09→21:04)
[2016-08-03] MEDS: ENOXAPARIN 30 MG/0.3 ML SYG SC SCH (08:12)
--- NOTE | 2016-08-03 08:52 | CONS ---
Date/Time of Note Date/Time of Note DATE: 08/03/16 TIME: 08:51 Assessment/Plan Assessment/Plan Chief Complaint/Hosp Course assessment/impression - h/o sepsis due to UTI and HCAP - h/o UTI due to carbapenemase producing kleb UTI - h/o HCAP due to carbapenemase producing kleb and acineto 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 tube dependent - HCV infection - colostomy status Problems: Additional Assessment/Plan recommendations - continue levofloxacin (07/27/16-), I recommend 10 day course Consultation Date/Type/Reason Admit Date/Time Jul 24, 2016 at 13:21 Type of Consultation: ID Referring Provider: OLI ZUNIGA 24 HR Interval Summary Subjective hx not possible: pt non-verbal Exam/Review of Systems Vital Signs Vitals Vital Signs Date Time Temp Pulse Resp B/P Pulse Ox O2 Delivery O2 Flow Rate FiO2 08/03/16 08:40 79 20 100 Aerosol 10.0 40 08/03/16 08:01 97.6 163/104 Intake and Output 08/02/16 08/02/16 08/03/16 14:59 22:59 06:59 Intake Total 0 ml 500 ml Output Total 460 ml 400 ml Balance -460 ml 100 ml Exam Constitutional: frail, non-verbal Psych: no complaints Head: atraumatic, normocephalic Eyes: nl lids ENMT: nl external ears & nose, nl nasal mucosa & septum Respiratory: diminished breath sounds Cardiovascular: nl pulses, regular rate and rhythm Gastrointestinal: other (colostomy, G tube), soft Extremities: No edema Neurological: confused Results Result Diagram: 08/02/16 1425 08/02/16 1425 Results 24 hrs Laboratory Tests Test 08/02/16 14:25 Anion Gap 16 Basophils # 0.0 Basophils % 0.0 Blood Morphology Comment Blood Urea Nitrogen 9 Calcium Level 8.8 Carbon Dioxide Level 26 Chloride Level 110 Creatinine 0.47 L Eosinophils # 0.1 Eosinophils % 1.4 Glucose Level 81 Hematocrit 34.2 L Hemoglobin 10.8 L Lymphocytes # 2.2 Lymphocytes % 27.6 Mean Corpuscular Hemoglobin 26.3 L Mean Corpuscular Hemoglobin Concent 31.5 L Mean Corpuscular Volume 83.7 Mean Platelet Volume 10.8 H Monocytes # 0.8 Monocytes % 9.6 Neutrophils # 4.8 Neutrophils % 61.4 Nucleated Red Blood Cells # 0.0 Nucleated Red Blood Cells % 0.0 Platelet Count 347 Potassium Level 3.1 L Red Blood Count 4.08 L Red Cell Distribution Width 17.6 H Sodium Level 149 H White Blood Count 7.8 Medications Medications Current Medications Ondansetron HCl (Zofran Inj) 4 mg Q6H PRN IV NAUSEA AND/OR VOMITING; Start at 14:00 Acetaminophen (Tylenol Tab) 650 mg Q6H PRN PO PAIN LEVEL 1-3 OR FEVER; Start 07/24/16 at 14:00 Morphine Sulfate (morphine) 2 mg Q4H PRN IV PAIN LEVEL 7-10; Start 07/24/16 at 14:00 Enoxaparin Sodium (Lovenox) 30 mg DAILY SC Last administered on 08/03/16 08:12 ; Admin Dose 30 MG; Start 07/25/16 at 09:00 Hydralazine HCl 20 mg 20 mg Q4H PRN IV SBP > 170 Last administered on 08/02/16 12:23; Admin Dose 20 MG; Start 07/26/16 at 23:00 Levofloxacin/ Dextrose 150 ml @ 100 mls/hr Q24H IVPB Last administered on 12:24; Admin Dose 100 MLS/HR; Start 07/27/16 at 13:00; Stop 08/06/16 at 12: 59 Potassium Chloride/Sodium Chloride (NS-KCl 20 Meq) 1,000 ml @ 80 mls/hr [id number] IV Last administered on 08/02/16 19:30; Admin Dose 80 MLS/HR; Start at 14:30 Famotidine (Pepcid Iv) 20 mg Q12 IV Last administered on 08/03/16 08:09; Admin Dose 20 MG; Start 08/01/16 at 21:00 LIZZY HECK M.D. Aug 03, 2016 08:52
--- NOTE | 2016-08-03 09:35 | CONS ---
Date/Time of Note Date/Time of Note DATE: 08/03/16 TIME: 09:32 Assessment/Plan Assessment/Plan Chief Complaint/Hosp Course assessment/impression - h/o sepsis due to UTI and HCAP - h/o UTI due to carbapenemase producing kleb UTI - h/o HCAP due to carbapenemase producing kleb and acineto - h/o GIB, on NGT. 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 - HCV infection - colostomy status Problems: Additional Assessment/Plan recommendations - Continue levofloxacin (07/27/16-) for a 10 day course management d/w Pt's RN Consultation Date/Type/Reason Admit Date/Time Jul 24, 2016 at 13:21 Type of Consultation: ID Referring Provider: OLI ZUNIGA 24 HR Interval Summary Subjective hx not possible: pt non-verbal Exam/Review of Systems Vital Signs Vitals Vital Signs Date Time Temp Pulse Resp B/P Pulse Ox O2 Delivery O2 Flow Rate FiO2 08/03/16 08:40 79 20 100 Aerosol 10.0 40 08/03/16 08:01 97.6 163/104 Intake and Output 08/02/16 08/02/16 08/03/16 15:00 23:00 07:00 Intake Total 0 ml 500 ml Output Total 460 ml 400 ml Balance -460 ml 100 ml Exam Constitutional: frail, non-verbal Psych: confusion Head: normocephalic Eyes: nl lids ENMT: other (NGT, dry mucus membranes) Respiratory: crackles/rales Cardiovascular: nl pulses, regular rate and rhythm Gastrointestinal: non-tender, other (+colostomy bag, G tube), soft Musculoskeletal: other (muscular atrophy) Extremities: edema Skin: other (scabs at G tube site, no purulence) Results Result Diagram: 08/02/16 1425 08/02/16 1425 Results 24 hrs Laboratory Tests Test 08/02/16 14:25 Anion Gap 16 Basophils # 0.0 Basophils % 0.0 Blood Morphology Comment Blood Urea Nitrogen 9 Calcium Level 8.8 Carbon Dioxide Level 26 Chloride Level 110 Creatinine 0.47 L Eosinophils # 0.1 Eosinophils % 1.4 Glucose Level 81 Hematocrit 34.2 L Hemoglobin 10.8 L Lymphocytes # 2.2 Lymphocytes % 27.6 Mean Corpuscular Hemoglobin 26.3 L Mean Corpuscular Hemoglobin Concent 31.5 L Mean Corpuscular Volume 83.7 Mean Platelet Volume 10.8 H Monocytes # 0.8 Monocytes % 9.6 Neutrophils # 4.8 Neutrophils % 61.4 Nucleated Red Blood Cells # 0.0 Nucleated Red Blood Cells % 0.0 Platelet Count 347 Potassium Level 3.1 L Red Blood Count 4.08 L Red Cell Distribution Width 17.6 H Sodium Level 149 H White Blood Count 7.8 Medications Medications Current Medications Ondansetron HCl (Zofran Inj) 4 mg Q6H PRN IV NAUSEA AND/OR VOMITING; Start at 14:00 Acetaminophen (Tylenol Tab) 650 mg Q6H PRN PO PAIN LEVEL 1-3 OR FEVER; Start 07/24/16 at 14:00 Morphine Sulfate (morphine) 2 mg Q4H PRN IV PAIN LEVEL 7-10; Start 07/24/16 at 14:00 Enoxaparin Sodium (Lovenox) 30 mg DAILY SC Last administered on 08/03/16 08:12 ; Admin Dose 30 MG; Start 07/25/16 at 09:00 Hydralazine HCl 20 mg 20 mg Q4H PRN IV SBP > 170 Last administered on 08/02/16 12:23; Admin Dose 20 MG; Start 07/26/16 at 23:00 Levofloxacin/ Dextrose 150 ml @ 100 mls/hr Q24H IVPB Last administered on 12:24; Admin Dose 100 MLS/HR; Start 07/27/16 at 13:00; Stop 08/06/16 at 12: 59 Potassium Chloride/Sodium Chloride (NS-KCl 20 Meq) 1,000 ml @ 80 mls/hr [id number] IV Last administered on 08/02/16 19:30; Admin Dose 80 MLS/HR; Start at 14:30 Famotidine (Pepcid Iv) 20 mg Q12 IV Last administered on 08/03/16 08:09; Admin Dose 20 MG; Start 08/01/16 at 21:00 LIZZY HECK M.D. Aug 03, 2016 09:34
[2016-08-03] MEDS: LEVOFLOXACIN 750MG/D5W (PMX) 150 ML IVPB SCH (12:14)
--- NOTE | 2016-08-03 12:59 | PN ---
Date/Time of Note Date/Time of Note DATE: 08/03/16 TIME: 12:59 Assessment/Plan VTE Prophylaxis VTE Prophylaxis Intervention: other Lines/Catheters IV Catheter Type (from Nrs): Peripheral IV Urinary Cath still in place: Yes Reason Cath still needed: skin wounds contaminated by urine Assessment/Plan Chief Complaint/Hosp Course 1) pneumonia - intravenous antibiotics - monitor clinically 2) respiratory failure - consult pulmonary to evaluate and aid in care 3) encephalopathy - monitor Problems: Subjective 24 Hr Interval Summary Free Text/Dictation Patient comfortable, no complaints Exam/Review of Systems Vital Signs Vitals Vital Signs Date Time Temp Pulse Resp B/P Pulse Ox O2 Delivery O2 Flow Rate FiO2 08/03/16 12:11 82 08/03/16 11:48 97.9 18 146/80 98 08/03/16 08:40 Aerosol 10.0 40 Intake and Output 08/02/16 08/02/16 08/03/16 15:00 23:00 07:00 Intake Total 0 ml 500 ml Output Total 460 ml 400 ml Balance -460 ml 100 ml Exam Constitutional: well developed Head: atraumatic, normocephalic Neck: supple Respiratory: diminished breath sounds Cardiovascular: regular rate and rhythm Gastrointestinal: non-tender, soft Results Result Diagram: 08/02/16 1425 08/02/16 1425 Results 24 hrs Laboratory Tests Test 08/02/16 14:25 Anion Gap 16 Basophils # 0.0 Basophils % 0.0 Blood Morphology Comment Blood Urea Nitrogen 9 Calcium Level 8.8 Carbon Dioxide Level 26 Chloride Level 110 Creatinine 0.47 L Eosinophils # 0.1 Eosinophils % 1.4 Glucose Level 81 Hematocrit 34.2 L Hemoglobin 10.8 L Lymphocytes # 2.2 Lymphocytes % 27.6 Mean Corpuscular Hemoglobin 26.3 L Mean Corpuscular Hemoglobin Concent 31.5 L Mean Corpuscular Volume 83.7 Mean Platelet Volume 10.8 H Monocytes # 0.8 Monocytes % 9.6 Neutrophils # 4.8 Neutrophils % 61.4 Nucleated Red Blood Cells # 0.0 Nucleated Red Blood Cells % 0.0 Platelet Count 347 Potassium Level 3.1 L Red Blood Count 4.08 L Red Cell Distribution Width 17.6 H Sodium Level 149 H White Blood Count 7.8 Medications Medications Current Medications Ondansetron HCl (Zofran Inj) 4 mg Q6H PRN IV NAUSEA AND/OR VOMITING; Start at 14:00 Acetaminophen (Tylenol Tab) 650 mg Q6H PRN PO PAIN LEVEL 1-3 OR FEVER; Start 07/24/16 at 14:00 Morphine Sulfate (morphine) 2 mg Q4H PRN IV PAIN LEVEL 7-10; Start 07/24/16 at 14:00 Enoxaparin Sodium (Lovenox) 30 mg DAILY SC Last administered on 08/03/16 08:12 ; Admin Dose 30 MG; Start 07/25/16 at 09:00 Hydralazine HCl 20 mg 20 mg Q4H PRN IV SBP > 170 Last administered on 08/02/16 12:23; Admin Dose 20 MG; Start 07/26/16 at 23:00 Levofloxacin/ Dextrose 150 ml @ 100 mls/hr Q24H IVPB Last administered on 12:14; Admin Dose 100 MLS/HR; Start 07/27/16 at 13:00; Stop 08/06/16 at 12: 59 Potassium Chloride/Sodium Chloride (NS-KCl 20 Meq) 1,000 ml @ 80 mls/hr [id number] IV Last administered on 08/03/16 11:41; Admin Dose 80 MLS/HR; Start at 14:30 Famotidine (Pepcid Iv) 20 mg Q12 IV Last administered on 08/03/16 08:09; Admin Dose 20 MG; Start 08/01/16 at 21:00 OLI ZUNIGA Aug 03, 2016 12:59
[2016-08-04] VITALS (11 sets, daily range): BP systolic 131–194; BP diastolic 69–105; PULSE 80–139; RESP 18–20
[2016-08-04] MEDS: LEVALBUTEROL (NEB) 0.63 MG/3 ML AMP HHN SCH ×4 (01:03→22:01)
[2016-08-04] MEDS: IPRATROPIUM (NEB) 0.5 MG/2.5 ML AMP HHN SCH ×4 (01:03→22:00)
[2016-08-04] MEDS: NS + KCL 20 MEQ 1,000 ML IV SCH ×2 (09:00→17:14)
[2016-08-04] MEDS: FAMOTIDINE 20 MG INJ IV SCH ×2 (09:12→22:02)
[2016-08-04] MEDS: ENOXAPARIN 30 MG/0.3 ML SYG SC SCH (09:16)
--- NOTE | 2016-08-04 09:19 | CONS ---
Date/Time of Note Date/Time of Note DATE: 08/04/16 TIME: 09:19 Assessment/Plan Assessment/Plan Chief Complaint/Hosp Course assessment/impression - h/o sepsis due to UTI and HCAP - h/o UTI due to carbapenemase producing kleb UTI - h/o HCAP due to carbapenemase producing kleb and acineto - h/o GIB, on NGT. 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 - HCV infection - colostomy status Problems: Additional Assessment/Plan recommendations - Continue levofloxacin (07/27/16-) for a 10 day course - I recommend d/c NG tube if able - contact isolation for carbapenemase producing klebsiella management d/w Pt's RN and charge nurse Consultation Date/Type/Reason Admit Date/Time Jul 24, 2016 at 13:21 Type of Consultation: ID Referring Provider: OLI ZUNIGA 24 HR Interval Summary Subjective hx not possible: pt non-verbal Exam/Review of Systems Vital Signs Vitals Vital Signs Date Time Temp Pulse Resp B/P Pulse Ox O2 Delivery O2 Flow Rate FiO2 08/04/16 08:58 10.0 40 08/04/16 08:52 102 22 95 Aerosol 08/04/16 07:21 97.9 144/89 Exam Constitutional: frail, non-verbal Psych: confusion Head: normocephalic Eyes: nl conjunctiva, nl lids ENMT: other (NGT) Respiratory: crackles/rales Cardiovascular: nl pulses, regular rate and rhythm Gastrointestinal: non-tender, other (G tube in place), soft Genitourinary - Male: other (FC) Musculoskeletal: No swelling Neurological: unresponsive Results Result Diagram: 08/02/16 1425 08/02/16 1425 Medications Medications Current Medications Ondansetron HCl (Zofran Inj) 4 mg Q6H PRN IV NAUSEA AND/OR VOMITING; Start at 14:00 Acetaminophen (Tylenol Tab) 650 mg Q6H PRN PO PAIN LEVEL 1-3 OR FEVER; Start 07/24/16 at 14:00 Morphine Sulfate (morphine) 2 mg Q4H PRN IV PAIN LEVEL 7-10; Start 07/24/16 at 14:00 Enoxaparin Sodium (Lovenox) 30 mg DAILY SC Last administered on 08/04/16 09:16 ; Admin Dose 30 MG; Start 07/25/16 at 09:00 Hydralazine HCl 20 mg 20 mg Q4H PRN IV SBP > 170 Last administered on 08/02/16 12:23; Admin Dose 20 MG; Start 07/26/16 at 23:00 Levofloxacin/ Dextrose 150 ml @ 100 mls/hr Q24H IVPB Last administered on 12:14; Admin Dose 100 MLS/HR; Start 07/27/16 at 13:00; Stop 08/06/16 at 12: 59 Potassium Chloride/Sodium Chloride (NS-KCl 20 Meq) 1,000 ml @ 80 mls/hr [id number] IV Last administered on 08/03/16 20:30; Admin Dose 80 MLS/HR; Start at 14:30 Famotidine (Pepcid Iv) 20 mg Q12 IV Last administered on 08/04/16 09:12; Admin Dose 20 MG; Start 08/01/16 at 21:00 LIZZY HECK M.D. Aug 04, 2016 09:19
[2016-08-04] MEDS: LEVOFLOXACIN 750MG/D5W (PMX) 150 ML IVPB SCH (12:18)
--- NOTE | 2016-08-04 12:31 | PN ---
Date/Time of Note Date/Time of Note DATE: 08/04/16 TIME: 12:31 Assessment/Plan VTE Prophylaxis VTE Prophylaxis Intervention: LMWH Lines/Catheters IV Catheter Type (from Nrsg): Peripheral IV Urinary Cath still in place: Yes Reason Cath still needed: skin wounds contaminated by urine Assessment/Plan Chief Complaint/Hosp Course 1) pneumonia - intravenous antibiotics - monitor clinically 2) respiratory failure - consult pulmonary to evaluate and aid in care 3) encephalopathy - monitor Problems: Subjective 24 Hr Interval Summary Free Text/Dictation Patient has no complaints Exam/Review of Systems Vital Signs Vitals Vital Signs Date Time Temp Pulse Resp B/P Pulse Ox O2 Delivery O2 Flow Rate FiO2 08/04/16 12:24 110 08/04/16 11:35 98.1 19 143/87 92 08/04/16 08:58 10.0 40 08/04/16 08:52 Aerosol Exam Constitutional: well developed Head: atraumatic, normocephalic Respiratory: clear to auscultation Cardiovascular: regular rate and rhythm Gastrointestinal: non-tender, soft Results Result Diagram: 08/02/16 1425 08/02/16 1425 Medications Medications Current Medications Ondansetron HCl (Zofran Inj) 4 mg Q6H PRN IV NAUSEA AND/OR VOMITING; Start at 14:00 Acetaminophen (Tylenol Tab) 650 mg Q6H PRN PO PAIN LEVEL 1-3 OR FEVER; Start 07/24/16 at 14:00 Morphine Sulfate (morphine) 2 mg Q4H PRN IV PAIN LEVEL 7-10; Start 07/24/16 at 14:00 Enoxaparin Sodium (Lovenox) 30 mg DAILY SC Last administered on 08/04/16 09:16 ; Admin Dose 30 MG; Start 07/25/16 at 09:00 Hydralazine HCl 20 mg 20 mg Q4H PRN IV SBP > 170 Last administered on 08/02/16 12:23; Admin Dose 20 MG; Start 07/26/16 at 23:00 Levofloxacin/ Dextrose 150 ml @ 100 mls/hr Q24H IVPB Last administered on 12:18; Admin Dose 100 MLS/HR; Start 07/27/16 at 13:00; Stop 08/06/16 at 12: 59 Potassium Chloride/Sodium Chloride (NS-KCl 20 Meq) 1,000 ml @ 80 mls/hr [id number] IV Last administered on 08/03/16 20:30; Admin Dose 80 MLS/HR; Start at 14:30 Famotidine (Pepcid Iv) 20 mg Q12 IV Last administered on 08/04/16 09:12; Admin Dose 20 MG; Start 08/01/16 at 21:00 OLI ZUNIGA Aug 04, 2016 12:31
[2016-08-04] MEDS: hydrALAzine 20 MG INJ IV PRN (15:11)
[2016-08-04] MEDS: ATENOLOL 50 MG TAB NGT SCH ×2 (15:39→22:04)
[2016-08-04] MEDS ORDERED: POTASSIUM CHLORIDE 20 MEQ in SOD CHLORIDE 0.9% 100 ML IVPB ONE (23:00)
[2016-08-05] VITALS (13 sets, daily range): BP systolic 127–169; BP diastolic 56–91; PULSE 55–62; RESP 17–20
--- NOTE | 2016-08-05 00:09 | RADRPT ---
AMENDMENT: 08/05/2016 12:18:46 AM Germán Rankin M.D The balloon of the gastrostomy tube is projected over the left lateral upper to mid abdominal wall c onsistent with its not being in the stomach. The patient has a Chaudhari catheter. Discussed with Eduard Dunlap at 12:18 a.m. on 08/05/2016. PROCEDURE: XR Abdomen. CLINICAL INDICATION: Evaluate abdominal distension and rigidity TECHNIQUE: Two views of the abdomen are available for review. COMPARISON: None. FINDINGS: Stool throughout much of colon suggesting constipation. Dextroscoliosis of lumbar spine. Degenerat alec changes in lumbar spine. Catheter projected over lower pelvis. Approximate 5.8 x 0.9 cm rectan gular radiodensity projected over left lower pelvis. Left lower lobe atelectasis/infiltrate with mi ld elevation of left hemidiaphragm. IMPRESSION: Stool throughout much of colon suggesting constipation. Please see above. RPTAT: HJES .Germán Rankin MD, MD Date Time Electronically viewed and signed by .Germán Rankin MD, on 08/05/2016 00:18 .S/
--- NOTE | 2016-08-05 00:17 | RADRPT ---
PROCEDURE: XR Chest. CLINICAL INDICATION: EVAL NGT PLACEMENT TECHNIQUE: 2 frontal chest x-rays. COMPARISON: 07/24/2016 FINDINGS: No nasogastric tube is seen. There is mild elevation of the left hemidiaphragm again seen. Increas ed density is seen in left lower lobe consistent with atelectasis/infiltrate.There is minimal promin ence of the lung interstitium likely minimal chronic changes.. The heart does not appear to be rogers sly enlarged. Tracheostomy tube is again seen. ECG leads projected over the chest. Faint nodular d ensities projected over the right lung measuring approximate 1.4 cm projected over the right mid addi g and 1.2 cm projected over the right upper lung. IMPRESSION: No nasogastric tube seen. Faint nodular densities projected over right lung. Please see above. Dis cussed with Leslie Dunlap at 12:11 a.m. on 08/05/2016. RPTAT: HJES .Germán Rankin MD, Date Time Electronically viewed and signed by .Germán Rankin MD, on 08/05/2016 00:16 .S/
[2016-08-05] MEDS: LEVALBUTEROL (NEB) 0.63 MG/3 ML AMP HHN SCH ×4 (02:59→21:32)
[2016-08-05] MEDS: IPRATROPIUM (NEB) 0.5 MG/2.5 ML AMP HHN SCH ×4 (02:59→21:32)
[2016-08-05] MEDS: ATENOLOL 50 MG TAB NGT SCH ×2 (09:00→21:45)
[2016-08-05] MEDS: ENOXAPARIN 30 MG/0.3 ML SYG SC SCH (09:29)
[2016-08-05] MEDS: FAMOTIDINE 20 MG INJ IV SCH ×2 (09:29→21:43)
[2016-08-05] MEDS: NS + KCL 20 MEQ 1,000 ML IV SCH ×2 (10:38→21:56)
[2016-08-05 10:43] LABS: CALCIUM 8.5 mg/dl (8.4-10.2); CREATININE 0.51 mg/dl (0.61-1.24); POTASSIUM 3.2 mmol/L (3.5-5.1)
[2016-08-05] MEDS: LEVOFLOXACIN 750MG/D5W (PMX) 150 ML IVPB SCH (12:24)
--- NOTE | 2016-08-05 13:04 | PN ---
Date/Time of Note Date/Time of Note DATE: 08/05/16 TIME: 13:02 Assessment/Plan VTE Prophylaxis VTE Prophylaxis Intervention: LMWH Lines/Catheters IV Catheter Type (from Nrsg): Peripheral IV Urinary Cath still in place: Yes Reason Cath still needed: skin wounds contaminated by urine Assessment/Plan Chief Complaint/Hosp Course 1) pneumonia - intravenous antibiotics - monitor clinically 2) respiratory failure - consult pulmonary to evaluate and aid in care 3) encephalopathy - monitor 4) PEG out of position - consult GI for evaluation Problems: Subjective 24 Hr Interval Summary Free Text/Dictation Patient is not verbally communicative, appears comfortable Exam/Review of Systems Vital Signs Vitals Vital Signs Date Time Temp Pulse Resp B/P Pulse Ox O2 Delivery O2 Flow Rate FiO2 08/05/16 12:30 59 08/05/16 11:36 98.1 18 132/71 94 08/05/16 09:55 10.0 08/05/16 09:44 40 08/05/16 09:44 Aerosol T Tube Intake and Output 08/04/16 08/04/16 08/05/16 15:00 23:00 07:00 Intake Total 150 ml 900 ml 710 ml Output Total 800 ml 350 ml Balance 150 ml 100 ml 360 ml Exam Constitutional: well developed Head: atraumatic, normocephalic Neck: supple Respiratory: diminished breath sounds Cardiovascular: regular rate and rhythm Gastrointestinal: non-tender, soft Extremities: normal pulses Results Result Diagram: 08/02/16 1425 08/05/16 0958 Results 24 hrs Laboratory Tests Test 08/05/16 09:58 Anion Gap 14 Blood Urea Nitrogen 10 Calcium Level 8.5 Carbon Dioxide Level 24 Chloride Level 112 H Creatinine 0.51 L Glucose Level 83 Potassium Level 3.2 L Sodium Level 147 H Medications Medications Current Medications Ondansetron HCl (Zofran Inj) 4 mg Q6H PRN IV NAUSEA AND/OR VOMITING; Start at 14:00 Acetaminophen (Tylenol Tab) 650 mg Q6H PRN PO PAIN LEVEL 1-3 OR FEVER; Start 07/24/16 at 14:00 Morphine Sulfate (morphine) 2 mg Q4H PRN IV PAIN LEVEL 7-10; Start 07/24/16 at 14:00 Enoxaparin Sodium (Lovenox) 30 mg DAILY SC Last administered on 08/05/16t 09:29 ; Admin Dose 30 MG; Start 07/25/16 at 09:00 Hydralazine HCl 20 mg 20 mg Q4H PRN IV SBP > 170 Last administered on 08/04/16 15:11; Admin Dose 20 MG; Start 07/26/16 at 23:00 Levofloxacin/ Dextrose 150 ml @ 100 mls/hr Q24H IVPB Last administered on 12:24; Admin Dose 100 MLS/HR; Start 07/27/16 at 13:00; Stop 08/06/16 at 12: 59 Potassium Chloride/Sodium Chloride (NS-KCl 20 Meq) 1,000 ml @ 80 mls/hr [id number] IV Last administered on 08/05/16 10:38; Admin Dose 80 MLS/HR; Start at 14:30 Famotidine (Pepcid Iv) 20 mg Q12 IV Last administered on 08/05/16 09:29; Admin Dose 20 MG; Start 08/01/16 at 21:00 Atenolol (Tenormin) 50 mg BID NGT Last administered on 08/04/16 22:04; Admin Dose 50 MG; Start 08/04/16 at 15:30 OLI ZUNIGA Aug 05, 2016 13:04
--- NOTE | 2016-08-05 16:28 | CONS ---
Date/Time of Note Date/Time of Note DATE: 08/05/16 TIME: 16:27 Assessment/Plan Assessment/Plan Chief Complaint/Hosp Course assessment/impression - h/o sepsis due to UTI and HCAP - nodular densities of R lung - h/o UTI due to carbapenemase producing kleb UTI - h/o HCAP due to carbapenemase producing kleb and acineto - h/o GIB, on NGT. 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 - HCV infection - colostomy status Problems: Additional Assessment/Plan recommendations - Pt's oxygenation is unstable and therefore not safe to get CT - will repeat CXR in AM - will order cocci serology, quantiferon TB gold - consider pulmonary consult - Continue levofloxacin (07/27/16-) for a 10 day course - contact isolation for carbapenemase producing klebsiella management d/w Pt's RN and [employer] Consultation Date/Type/Reason Admit Date/Time Jul 24, 2016 at 13:21 Type of Consultation: ID Referring Provider: OLI ZUNIGA 24 HR Interval Summary Subjective hx not possible: pt non-verbal Exam/Review of Systems Vital Signs Vitals Vital Signs Date Time Temp Pulse Resp B/P Pulse Ox O2 Delivery O2 Flow Rate FiO2 08/05/16 15:39 97.9 54 18 140/73 97 08/05/16 15:10 Aerosol 10.0 40 T Tube Intake and Output 08/04/16 08/04/16 08/05/16 15:00 23:00 07:00 Intake Total 150 ml 900 ml 710 ml Output Total 800 ml 350 ml Balance 150 ml 100 ml 360 ml Exam Constitutional: frail, non-verbal Psych: confusion Head: atraumatic, normocephalic, other (NGT in place) Eyes: nl sclera ENMT: nl external ears & nose Respiratory: diminished breath sounds Cardiovascular: nl pulses, regular rate and rhythm Gastrointestinal: non-tender, other (colostomy bag, G tube), soft Musculoskeletal: nl extremities to inspection Extremities: normal pulses Neurological: unresponsive Results Result Diagram: 08/02/16 1425 08/05/16 0958 Results 24 hrs Laboratory Tests Test 08/05/16 09:58 Anion Gap 14 Blood Urea Nitrogen 10 Calcium Level 8.5 Carbon Dioxide Level 24 Chloride Level 112 H Creatinine 0.51 L Glucose Level 83 Potassium Level 3.2 L Sodium Level 147 H Medications Medications Current Medications Ondansetron HCl (Zofran Inj) 4 mg Q6H PRN IV NAUSEA AND/OR VOMITING; Start at 14:00 Acetaminophen (Tylenol Tab) 650 mg Q6H PRN PO PAIN LEVEL 1-3 OR FEVER; Start 07/24/16 at 14:00 Morphine Sulfate (morphine) 2 mg Q4H PRN IV PAIN LEVEL 7-10; Start 07/24/16 at 14:00 Enoxaparin Sodium (Lovenox) 30 mg DAILY SC Last administered on 08/05/16 09:29 ; Admin Dose 30 MG; Start 07/25/16 at 09:00 Hydralazine HCl 20 mg 20 mg Q4H PRN IV SBP > 170 Last administered on 08/04/16 15:11; Admin Dose 20 MG; Start 07/26/16 at 23:00 Levofloxacin/ Dextrose 150 ml @ 100 mls/hr Q24H IVPB Last administered on 12:24; Admin Dose 100 MLS/HR; Start 07/27/16 at 13:00; Stop 08/06/16 at 12: 59 Potassium Chloride/Sodium Chloride (NS-KCl 20 Meq) 1,000 ml @ 80 mls/hr [id number] IV Last administered on 08/05/16 10:38; Admin Dose 80 MLS/HR; Start at 14:30 Famotidine (Pepcid Iv) 20 mg Q12 IV Last administered on 08/05/16 09:29; Admin Dose 20 MG; Start 08/01/16 at 21:00 Atenolol (Tenormin) 50 mg BID NGT Last administered on 08/04/16 22:04; Admin Dose 50 MG; Start 08/04/16 at 15:30 LIZZY HECK M.D. Aug 05, 2016 16:28
[2016-08-06] VITALS (13 sets, daily range): BP systolic 143–170; BP diastolic 71–90; PULSE 45–95; RESP 18–19
[2016-08-06] MEDS ORDERED: POTASSIUM CHLORIDE 250 ML IVPB ONE (00:30)
[2016-08-06] MEDS: IPRATROPIUM (NEB) 0.5 MG/2.5 ML AMP HHN SCH ×4 (01:34→20:21)
[2016-08-06] MEDS: LEVALBUTEROL (NEB) 0.63 MG/3 ML AMP HHN SCH ×4 (01:34→20:21)
--- NOTE | 2016-08-06 08:01 | RADRPT ---
PROCEDURE: XR Chest 1 View. CLINICAL INDICATION: Shortness of breath, infiltrate TECHNIQUE: AP view of the chest were obtained. COMPARISON: January 02, 2017 FINDINGS: The heart size is within normal limits. Calcified atherosclerosis is noted in the aorta. Tracheosto my tube is stable and appears in grossly appropriate location. Elevation of the left hemidiaphragm is identified. The lungs are hyperexpanded. Retrocardiac opacity is unchanged. Air and stool filled loops of colon beneath the left hemidiaphragm continue to be seen. Left-sided rib fractures are sta ble. IMPRESSION: Calcified atherosclerosis in the aorta. Hyperexpanded lungs with elevation of the left hemidiaphragm. Stable retrocardiac opacity that may reflect left lower lobe atelectasis or infiltrate combined with small pleural effusion. Stable left rib fractures. RPTAT: AA .Kervin Hanson MD, MD Date Time Electronically viewed and signed by .Kervin Hanson MD, MD on 08/06/2016 08:01 .P/
[2016-08-06 08:11] LABS: HEMATOCRIT 32.6 % (42.0-52.0); HEMOGLOBIN 10.4 g/dl (14.0-18.0); MEAN CORPUSCULAR HEMOGLOBIN 26.9 pg (29.0-33.0); MEAN PLATELET VOLUME 12.8 fl (7.4-10.4); PLATELET COUNT 258 10^3/UL (140-440); RED BLOOD COUNT 3.88 10^6/ul (4.70-6.10); RED CELL DISTRIBUTION WIDTH 18.3 % (11.5-14.5); WHITE BLOOD COUNT 4.2 10^3/ul (4.8-10.8)
[2016-08-06 08:12] LABS: CONDITION 1; LH ANALYZER COMMENTS 1; SUSPECT 1; UNCORRECTED WBC 4.7 10^3/ul (4.8-10.8)
[2016-08-06 08:29] LABS: POTASSIUM 3.2 mmol/L (3.5-5.1)
[2016-08-06 08:31] LABS: CREATININE 0.49 mg/dl (0.61-1.24)
[2016-08-06 08:32] LABS: CALCIUM 8.6 mg/dl (8.4-10.2)
--- NOTE | 2016-08-06 09:05 | CONS ---
DATE OF ADMISSION: 07/24/2016 DATE OF CONSULTATION: GASTROENTEROLOGY CONSULTATION Dear Dr. Germain: Thank you for asking me to see Mr. Meeks in GI consultation. HISTORY OF PRESENT ILLNESS: As you know, the patient is a 70-year-old white gentleman, is admitted to the hospital because of sepsis, respiratory failure, and at this time he has a G-tube which is ma lfunctioning; hence, the GI consultation is requested. He is status post tracheostomy. He is on a T-tube. He has other medical problems including encephalopathy, urinary tract infection, pneumonia. The patient is nonverbal. He has been on multiple medications. PAST MEDICAL HISTORY: History of colostomy. Dictated By: KATELYN FERRARI/MACK Conf#: [id number] DID#: [id number]
--- NOTE | 2016-08-06 09:12 | CONS ---
Date/Time of Note Date/Time of Note DATE: 08/06/16 TIME: 09:11 Assessment/Plan Assessment/Plan Chief Complaint/Hosp Course assessment/impression - h/o sepsis due to UTI and HCAP - nodular densities of R lung - h/o UTI due to carbapenemase producing kleb UTI - h/o HCAP due to carbapenemase producing kleb and acineto - h/o GIB, on NGT. 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 - HCV infection - colostomy status Problems: Additional Assessment/Plan recommendations - pending: cocci serology, quantiferon TB gold - Complete levofloxacin (07/27/16-) today - I recommend re-checking the placement of NGT - contact isolation for carbapenemase producing klebsiella Consultation Date/Type/Reason Admit Date/Time Jul 24, 2016 at 13:21 Type of Consultation: ID Referring Provider: OLI ZUNIGA 24 HR Interval Summary Subjective hx not possible: pt non-verbal Exam/Review of Systems Vital Signs Vitals Vital Signs Date Time Temp Pulse Resp B/P Pulse Ox O2 Delivery O2 Flow Rate FiO2 08/06/16 08:05 47 08/06/16 07:37 98.1 18 148/71 90 08/06/16 02:17 10.0 40 08/06/16 01:38 Aerosol Intake and Output 08/05/16 08/05/16 08/06/16 15:00 23:00 07:00 Intake Total 400 ml 480 ml 20 ml Output Total 475 ml 550 ml Balance 400 ml 5 ml -530 ml Exam Constitutional: frail, non-verbal Psych: confusion Head: normocephalic, other (temporal atrophy b/l) Eyes: nl lids, nl sclera ENMT: nl external ears & nose, other (NGT in place) Respiratory: diminished breath sounds Cardiovascular: nl pulses, regular rate and rhythm Gastrointestinal: other (colostomy) Extremities: No edema Neurological: confused Results Result Diagram: 08/06/16 0720 08/06/16 0720 Results 24 hrs Laboratory Tests Test 08/05/16 09:58 08/06/16 07:20 Anion Gap 14 16 Blood Urea Nitrogen 10 9 Calcium Level 8.5 8.6 Carbon Dioxide Level 24 27 Chloride Level 112 H 107 Creatinine 0.51 L 0.49 L Glucose Level 83 76 Potassium Level 3.2 L 3.2 L Sodium Level 147 H 147 H Blood Morphology Comment Hematocrit 32.6 L Hemoglobin 10.4 L Mean Corpuscular Hemoglobin 26.9 L Mean Corpuscular Hemoglobin Concent 32.0 Mean Corpuscular Volume 84.0 Mean Platelet Volume 12.8 H Platelet Count 258 # Red Blood Count 3.88 L Red Cell Distribution Width 18.3 H White Blood Count 4.2 #L Medications Medications Current Medications Ondansetron HCl (Zofran Inj) 4 mg Q6H PRN IV NAUSEA AND/OR VOMITING; Start at 14:00 Acetaminophen (Tylenol Tab) 650 mg Q6H PRN PO PAIN LEVEL 1-3 OR FEVER; Start 07/24/16 at 14:00 Morphine Sulfate (morphine) 2 mg Q4H PRN IV PAIN LEVEL 7-10; Start 07/24/16 at 14:00 Enoxaparin Sodium (Lovenox) 30 mg DAILY SC Last administered on 08/05/16 09:29 ; Admin Dose 30 MG; Start 07/25/16 at 09:00 Hydralazine HCl 20 mg 20 mg Q4H PRN IV SBP > 170 Last administered on 08/04/16 15:11; Admin Dose 20 MG; Start 07/26/16 at 23:00 Levofloxacin/ Dextrose 150 ml @ 100 mls/hr Q24H IVPB Last administered on 12:24; Admin Dose 100 MLS/HR; Start 07/27/16 at 13:00; Stop 08/06/16 at 12: 59 Potassium Chloride/Sodium Chloride (NS-KCl 20 Meq) 1,000 ml @ 80 mls/hr [id number] IV Last administered on 08/05/16 21:56; Admin Dose 80 MLS/HR; Start at 14:30 Famotidine (Pepcid Iv) 20 mg Q12 IV Last administered on 08/05/16 21:43; Admin Dose 20 MG; Start 08/01/16 at 21:00 Atenolol (Tenormin) 50 mg BID NGT Last administered on 08/05/16 21:45; Admin Dose 50 MG; Start 08/04/16 at 15:30 LIZZY HECK M.D. Aug 06, 2016 09:12
--- NOTE | 2016-08-06 09:30 | CONS ---
DATE OF ADMISSION: 07/24/2016 DATE OF CONSULTATION: TYPE OF CONSULTATION: Gastroenterology. Dear Dr. Germain: Thank you for asking me to see Mr. Meeks in GI consultation. HISTORY OF PRESENT ILLNESS: The patient is a 70-year-old white gentleman who [facility]. His pneumonia is status post tracheostomy. GI consul tation is requested because of malfunctioning G-tube. He had a PEG placement in the past, he also h ad a colostomy. Reason for colostomy is not very clearly known. Patient is nonverbal. Other medical problems include some urinary tract infection and respiratory failure, COPD, hepatitis C. Electrol yte imbalance. MEDICATIONS: Currently he is on medications which includes: 1. Potassium chloride. 2. Atenolol. 3. Famotidine. 4. Levalbuterol. 5. Levofloxacin. 6. Hydralazine. 7. Enoxaparin. 8. Zofran. PHYSICAL EXAMINATION: GENERAL: The patient is a 70-year-old white gentleman who at this time is lethargic. He is thin an d cachectic. VITAL SIGNS: He is afebrile. CARDIOVASCULAR: Normal heart sounds. RESPIRATORY: Normal breath sounds. He has a tracheostomy and is on a T-tube. ABDOMEN: Showed evidence of a G-tube seen in place. He also has a colostomy. LABORATORY WORKUP: Potassium is 2.9. Potassium is 3.2, sodium 147, chloride is 112, BUN is 10. WB C count 4200, hemoglobin 10.4. The chest x-ray shows evidence of hyperexpanded lungs. Opacity noted in the left lower lobe, stable left rib fractures. CLINICAL IMPRESSION: 1. My examination of the G-tube it appears that the G-tube is out of the stomach, it is in the subc utaneous area. Hence, I removed the G-tube and dressings were applied. 2. Tracheostomy is status post colostomy, respiratory failure, urosepsis, encephalopathy, pneumonia . PLAN: At this time, I would recommend to continue the nasogastric tube feeding and in a few days, o nce the gastrostomy heals we would recommend percutaneous endoscopic gastrostomy tube placement. Once again, Dr. Germain, thank you very much. Dictated By: KATELYN FERRARI/MACK Conf#: [id number] DID#: [id number]
[2016-08-06] MEDS: FAMOTIDINE 20 MG INJ IV SCH ×2 (10:09→21:05)
[2016-08-06] MEDS: ENOXAPARIN 30 MG/0.3 ML SYG SC SCH (10:10)
[2016-08-06 10:53] LABS: EOSINOPHILS # 0.1 10^3/ul (0.0-0.5); MONOCYTE # 0.5 10^3/ul (0.3-0.9); NEUTROPHIL # 2.6 10^3/ul (1.6-7.5)
[2016-08-06 10:54] LABS: PLATELET ESTIMATE PLT APPEAR ADEQUATE
--- NOTE | 2016-08-06 10:54 | RADRPT ---
PROCEDURE: XR Chest. CLINICAL INDICATION: NG tube placement TECHNIQUE: Chest AP portable. COMPARISON: 08/06/2016 at 0606 hours FINDINGS: Tracheostomy tube in place. Nasogastric tube in the stomach. The mediastinal structures are unremarkable. There is calcification of the thoracic aorta (consiste nt with atherosclerosis). The heart is normal in size and configuration. The pulmonary vascularity i s normal. There is moderate hyperinflation. There are RLL and LLL patchy consolidations. There is a small left pleural effusion. There is no change in the left rib fractures. IMPRESSION: Calcification of the thoracic aorta (consistent with atherosclerosis) Moderate hyperinflation RLL and LLL patchy consolidations Small left pleural effusion RPTAT: [facility] .David Cueva MD, MD Date Time Electronically viewed and signed by .David Cuvea MD, on 08/06/2016 10:54 .B/
[2016-08-06] MEDS: NS + KCL 20 MEQ 1,000 ML IV SCH ×2 (11:00→23:36)
[2016-08-06] MEDS: LEVOFLOXACIN 750MG/D5W (PMX) 150 ML IVPB SCH (12:57)
[2016-08-06] MEDS: ATENOLOL 50 MG TAB NGT SCH ×2 (12:57→21:06)
--- NOTE | 2016-08-06 15:35 | PN ---
Date/Time of Note Date/Time of Note DATE: 08/06/16 TIME: 15:34 Assessment/Plan VTE Prophylaxis VTE Prophylaxis Intervention: other Lines/Catheters IV Catheter Type (from Nrs): Peripheral IV Urinary Cath still in place: Yes Reason Cath still needed: skin wounds contaminated by urine Assessment/Plan Chief Complaint/Hosp Course 1) pneumonia - intravenous antibiotics - monitor clinically 2) respiratory failure - consult pulmonary to evaluate and aid in care 3) encephalopathy - monitor 4) PEG out of position - consult GI for evaluation, possible replacement Problems: Subjective 24 Hr Interval Summary Free Text/Dictation Patient is nonverbal but appears comfortable Exam/Review of Systems Vital Signs Vitals Vital Signs Date Time Temp Pulse Resp B/P Pulse Ox O2 Delivery O2 Flow Rate FiO2 08/06/16 14:02 10.0 40 08/06/16 14:01 92 22 99 Aerosol 08/06/16 11:29 98.1 147/77 Intake and Output 08/05/16 08/05/16 08/06/16 15:00 23:00 07:00 Intake Total 400 ml 480 ml 20 ml Output Total 475 ml 550 ml Balance 400 ml 5 ml -530 ml Exam Head: atraumatic, normocephalic Neck: supple Respiratory: diminished breath sounds Cardiovascular: regular rate and rhythm Gastrointestinal: non-tender, soft Results Result Diagram: 08/06/16 0720 08/06/16 0720 Results 24 hrs Laboratory Tests Test 08/06/16 07:20 Anion Gap 16 Blood Morphology Comment Blood Urea Nitrogen 9 Calcium Level 8.6 Carbon Dioxide Level 27 Chloride Level 107 Creatinine 0.49 L Differential Comment Eosinophils # 0.1 Eosinophils % 3.0 Glucose Level 76 Hematocrit 32.6 L Hemoglobin 10.4 L Lymphocytes # 1.0 Lymphocytes % 23.0 Mean Corpuscular Hemoglobin 26.9 L Mean Corpuscular Hemoglobin Concent 32.0 Mean Corpuscular Volume 84.0 Mean Platelet Volume 12.8 H Monocytes # 0.5 Monocytes % 11.0 Neutrophils # 2.6 Neutrophils % 63.0 Platelet Count 258 # Platelet Estimate PLT APPEAR ADEQUATE Potassium Level 3.2 L Red Blood Count 3.88 L Red Cell Distribution Width 18.3 H Sodium Level 147 H White Blood Count 4.2 #L Medications Medications Current Medications Ondansetron HCl (Zofran Inj) 4 mg Q6H PRN IV NAUSEA AND/OR VOMITING; Start at 14:00 Acetaminophen (Tylenol Tab) 650 mg Q6H PRN PO PAIN LEVEL 1-3 OR FEVER; Start 07/24/16 at 14:00 Morphine Sulfate (morphine) 2 mg Q4H PRN IV PAIN LEVEL 7-10; Start 07/24/16 at 14:00 Enoxaparin Sodium (Lovenox) 30 mg DAILY SC Last administered on 08/06/16 10:10 ; Admin Dose 30 MG; Start 07/25/16 at 09:00 Hydralazine HCl 20 mg 20 mg Q4H PRN IV SBP > 170 Last administered on 08/04/16 15:11; Admin Dose 20 MG; Start 07/26/16 at 23:00 Levofloxacin/ Dextrose 150 ml @ 100 mls/hr Q24H IVPB Last administered on 12:57; Admin Dose 100 MLS/HR; Start 07/27/16 at 13:00; Stop 08/06/16 at 23: 59 Potassium Chloride/Sodium Chloride (NS-KCl 20 Meq) 1,000 ml @ 80 mls/hr [id number] IV Last administered on 08/05/16 21:56; Admin Dose 80 MLS/HR; Start at 14:30 Famotidine (Pepcid Iv) 20 mg Q12 IV Last administered on 08/06/16 10:09; Admin Dose 20 MG; Start 08/01/16 at 21:00 Atenolol (Tenormin) 50 mg BID NGT Last administered on 08/06/16 12:57; Admin Dose 50 MG; Start 08/04/16 at 15:30 OLI ZUNIGA Aug 06, 2016 15:35
[2016-08-07] VITALS (12 sets, daily range): BP systolic 149–175; BP diastolic 68–83; PULSE 48–82; RESP 18–20
[2016-08-07] MEDS: LEVALBUTEROL (NEB) 0.63 MG/3 ML AMP HHN SCH ×4 (01:09→20:05)
[2016-08-07] MEDS: IPRATROPIUM (NEB) 0.5 MG/2.5 ML AMP HHN SCH ×4 (01:09→20:05)
[2016-08-07] MEDS: FAMOTIDINE 20 MG INJ IV SCH ×2 (08:12→20:46)
[2016-08-07] MEDS: ENOXAPARIN 30 MG/0.3 ML SYG SC SCH (08:14)
[2016-08-07] MEDS: ATENOLOL 50 MG TAB NGT SCH ×2 (08:17→20:46)
--- NOTE | 2016-08-07 11:36 | CONS ---
Date/Time of Note Date/Time of Note DATE: 08/07/16 TIME: 11:35 Assessment/Plan Assessment/Plan Chief Complaint/Hosp Course assessment/impression - h/o sepsis due to UTI and HCAP - nodular densities of R lung - h/o UTI due to carbapenemase producing kleb UTI - h/o HCAP due to carbapenemase producing kleb and acineto - h/o GIB, on NGT. 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 - HCV infection - colostomy status Problems: Additional Assessment/Plan recommendations - pending: cocci serology, quantiferon TB gold - monitor Pt off systemic antibiotic - contact isolation for carbapenemase producing klebsiella Consultation Date/Type/Reason Admit Date/Time Jul 24, 2016 at 13:21 Type of Consultation: ID Referring Provider: OLI ZUNIGA 24 HR Interval Summary Subjective hx not possible: pt non-verbal Exam/Review of Systems Vital Signs Vitals Vital Signs Date Time Temp Pulse Resp B/P Pulse Ox O2 Delivery O2 Flow Rate FiO2 08/07/16 09:02 48 20 99 10.0 40 08/07/16 08:02 97.4 155/76 08/07/16 04:54 Aerosol Intake and Output 08/06/16 08/06/16 08/07/16 15:00 23:00 07:00 Intake Total 920 ml 460 ml Output Total 1250 ml Balance 920 ml -790 ml Exam Constitutional: frail, non-verbal Psych: confusion Head: other (temporal atrophy b/l) Eyes: nl conjunctiva, nl lids ENMT: nl external ears & nose Respiratory: diminished breath sounds Cardiovascular: nl pulses, regular rate and rhythm Gastrointestinal: non-tender, other (GT colostomy), soft Genitourinary - Male: other (FC) Musculoskeletal: other (musle wasting) Neurological: confused Results Result Diagram: 08/06/1671908/06/16719 Medications Medications Current Medications Ondansetron HCl (Zofran Inj) 4 mg Q6H PRN IV NAUSEA AND/OR VOMITING; Start at 14:00 Acetaminophen (Tylenol Tab) 650 mg Q6H PRN PO PAIN LEVEL 1-3 OR FEVER; Start 07/24/16 at 14:00 Morphine Sulfate (morphine) 2 mg Q4H PRN IV PAIN LEVEL 7-10; Start 07/24/16 at 14:00 Enoxaparin Sodium (Lovenox) 30 mg DAILY SC Last administered on 08/07/16 08:14 ; Admin Dose 30 MG; Start 07/25/16 at 09:00 Hydralazine HCl 20 mg 20 mg Q4H PRN IV SBP > 170 Last administered on 08/04/16 15:11; Admin Dose 20 MG; Start 07/26/16 at 23:00 Potassium Chloride/Sodium Chloride (NS-KCl 20 Meq) 1,000 ml @ 80 mls/hr [id number] IV Last administered on 08/06/16 23:36; Admin Dose 80 MLS/HR; Start at 14:30 Famotidine (Pepcid Iv) 20 mg Q12 IV Last administered on 08/07/16 08:12; Admin Dose 20 MG; Start 08/01/16 at 21:00 Atenolol (Tenormin) 50 mg BID NGT Last administered on 08/06/16 21:06; Admin Dose 50 MG; Start 08/04/16 at 15:30 LIZZY HECK M.D. Aug 07, 2016 11:36
--- NOTE | 2016-08-07 12:27 | PN ---
Date/Time of Note Date/Time of Note DATE: 08/07/16 TIME: 12:25 Assessment/Plan VTE Prophylaxis VTE Prophylaxis Intervention: other Lines/Catheters IV Catheter Type (from Nrsg): Peripheral IV Urinary Cath still in place: Yes Reason Cath still needed: skin wounds contaminated by urine Assessment/Plan Chief Complaint/Hosp Course 1) pneumonia - intravenous antibiotics - monitor clinically 2) respiratory failure - consult pulmonary to evaluate and aid in care 3) encephalopathy - monitor 4) PEG out of position - consult GI for evaluation, possible replacement - tube feeding through NG tube for now Problems: Subjective 24 Hr Interval Summary Free Text/Dictation Patient not verbally responsive, appears comfortable Exam/Review of Systems Vital Signs Vitals Vital Signs Date Time Temp Pulse Resp B/P Pulse Ox O2 Delivery O2 Flow Rate FiO2 08/07/16 11:36 97.5 50 20 160/75 97 08/07/16 09:02 10.0 40 08/07/16 04:54 Aerosol Intake and Output 08/06/16 08/06/16 08/07/16 15:00 23:00 07:00 Intake Total 920 ml 460 ml Output Total 1250 ml Balance 920 ml -790 ml Exam Constitutional: well developed Head: atraumatic, normocephalic Neck: supple Respiratory: diminished breath sounds Cardiovascular: regular rate and rhythm Gastrointestinal: non-tender, soft Results Result Diagram: 08/06/16 0720 08/06/16 0720 Medications Medications Current Medications Ondansetron HCl (Zofran Inj) 4 mg Q6H PRN IV NAUSEA AND/OR VOMITING; Start at 14:00 Acetaminophen (Tylenol Tab) 650 mg Q6H PRN PO PAIN LEVEL 1-3 OR FEVER; Start 07/24/16 at 14:00 Morphine Sulfate (morphine) 2 mg Q4H PRN IV PAIN LEVEL 7-10; Start 07/24/16 at 14:00 Enoxaparin Sodium (Lovenox) 30 mg DAILY SC Last administered on 08/07/16 08:14 ; Admin Dose 30 MG; Start 07/25/16 at 09:00 Hydralazine HCl 20 mg 20 mg Q4H PRN IV SBP > 170 Last administered on 08/04/16 15:11; Admin Dose 20 MG; Start 07/26/16 at 23:00 Potassium Chloride/Sodium Chloride (NS-KCl 20 Meq) 1,000 ml @ 80 mls/hr [id number] IV Last administered on 08/06/16 23:36; Admin Dose 80 MLS/HR; Start at 14:30 Famotidine (Pepcid Iv) 20 mg Q12 IV Last administered on 08/07/16 08:12; Admin Dose 20 MG; Start 08/01/16 at 21:00 Atenolol (Tenormin) 50 mg BID NGT Last administered on 08/06/16 21:06; Admin Dose 50 MG; Start 08/04/16 at 15:30 OLI ZUNIGA Aug 07, 2016 12:27
[2016-08-07] MEDS: NS + KCL 20 MEQ 1,000 ML IV SCH (12:55)
[2016-08-08] VITALS (13 sets, daily range): BP systolic 135–165; BP diastolic 72–92; PULSE 55–91; RESP 18–22
[2016-08-08] MEDS: NS + KCL 20 MEQ 1,000 ML IV SCH ×2 (00:41→12:52)
[2016-08-08] MEDS: IPRATROPIUM (NEB) 0.5 MG/2.5 ML AMP HHN SCH ×4 (01:00→19:20)
[2016-08-08] MEDS: LEVALBUTEROL (NEB) 0.63 MG/3 ML AMP HHN SCH ×4 (01:00→19:20)
[2016-08-08] MEDS: ATENOLOL 50 MG TAB NGT SCH ×2 (09:30→21:10)
[2016-08-08] MEDS: FAMOTIDINE 20 MG INJ IV SCH ×2 (09:30→21:10)
[2016-08-08] MEDS: ENOXAPARIN 30 MG/0.3 ML SYG SC SCH (09:33)
--- NOTE | 2016-08-08 11:24 | CONS ---
Date/Time of Note Date/Time of Note DATE: 08/08/16 TIME: 11:21 Assessment/Plan Assessment/Plan Chief Complaint/Hosp Course Assessment/Impression: - s/p sepsis due to UTI and HCAP - nodular densities of R lung - s/p UTI due to carbapenemase producing kleb UTI - treated with levaquin - s/p HCAP due to carbapenemase producing kleb and acineto - treated with levaquin - s/p GIB, on NGT. 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 Godfrey Problems: Consultation Date/Type/Reason Admit Date/Time Jul 24, 2016 at 13:21 Initial Consult Date 07/27/2016 Type of Consultation: Infectious Disease Referring Provider: OLI ZUNIGA 24 HR Interval Summary Free Text/Dictation GT had migrated and was removed by Dr. Pryor with plans to replace it this week. Remains afebrile and tolerating NGT feeds per [facility]. Pt remains non-communicative. Exam/Review of Systems Vital Signs Vitals Vital Signs Date Time Temp Pulse Resp B/P Pulse Ox O2 Delivery O2 Flow Rate FiO2 08/08/16 08:22 69 08/08/16 08:15 98.3 22 143/90 97 08/08/16 07:36 Aerosol 8.0 35 T Tube Intake and Output 08/07/16 08/07/16 08/08/16 15:00 23:00 07:00 Intake Total 1370 ml 1230 ml Output Total 450 ml 250 ml Balance 920 ml 980 ml Exam Constitutional: frail, other (thin, chronically debilitated) Head: atraumatic, normocephalic ENMT: other (Mouth open, mucosa pink and moist with white coat noted on tongue) Neck: other (tracheostomy midline with T piece) Respiratory: diminished breath sounds, No wheezing Cardiovascular: nl pulses, regular rate and rhythm Gastrointestinal: bowel sounds present, other (NGT with TF; Bulky dressing over prior PEG site is c/d/i; colostomy with semi hard stool), soft Genitourinary - Male: other (Chaudhari cath intact with clear carla urine) Musculoskeletal: muscle weakness, other (muscle wasting with bilateral foot drop noted) Extremities: No clubbing, No cyanosis, No edema. Contractures. Neurological: unresponsive Skin: other (warm, dry with moistness noted on forehead; DTI on sacral area ( see nurses note for details) Results Result Diagram: 08/06/16 0720 08/06/16 0720 Medications Medications Current Medications Ondansetron HCl (Zofran Inj) 4 mg Q6H PRN IV NAUSEA AND/OR VOMITING; Start at 14:00 Acetaminophen (Tylenol Tab) 650 mg Q6H PRN PO PAIN LEVEL 1-3 OR FEVER; Start 07/24/16 at 14:00 Morphine Sulfate (morphine) 2 mg Q4H PRN IV PAIN LEVEL 7-10; Start 07/24/16 at 14:00 Enoxaparin Sodium (Lovenox) 30 mg DAILY SC Last administered on 08/08/16 09:33 ; Admin Dose 30 MG; Start 07/25/16 at 09:00 Hydralazine HCl 20 mg 20 mg Q4H PRN IV SBP > 170 Last administered on 08/04/16 15:11; Admin Dose 20 MG; Start 07/26/16 at 23:00 Potassium Chloride/Sodium Chloride (NS-KCl 20 Meq) 1,000 ml @ 80 mls/hr [id number] IV Last administered on 08/08/16 00:41; Admin Dose 80 MLS/HR; Start at 14:30 Famotidine (Pepcid Iv) 20 mg Q12 IV Last administered on 08/08/16 09:30; Admin Dose 20 MG; Start 08/01/16 at 21:00 Atenolol (Tenormin) 50 mg BID NGT Last administered on 08/08/16 09:30; Admin Dose 50 MG; Start 08/04/16 at 15:30 KO LOVING NP Aug 08, 2016 11:24 ; Admin Dose 30 MG; Start 07/25/16 at 09:00 Hydralazine HCl 20 mg 20 mg Q4H PRN IV SBP > 170 Last administered on 08/04/16 15:11; Admin Dose 20 MG; Start 07/26/16 at 23:00 Potassium Chloride/Sodium Chloride (NS-KCl 20 Meq) 1,000 ml @ 80 mls/hr [id number] IV Last administered on 08/08/16 00:41; Admin Dose 80 MLS/HR; Start at 14:30 Famotidine (Pepcid Iv) 20 mg Q12 IV Last administered on 08/08/16 09:30; Admin Dose 20 MG; Start 08/01/16 at 21:00 Atenolol (Tenormin) 50 mg BID NGT Last administered on 08/08/16 09:30; Admin Dose 50 MG; Start 08/04/16 at 15:30 KO LOVING NP Aug 08, 2016 11:24
--- NOTE | 2016-08-08 12:14 | PN ---
Date/Time of Note Date/Time of Note DATE: 08/08/16 TIME: 12:14 Assessment/Plan VTE Prophylaxis VTE Prophylaxis Intervention: other Lines/Catheters IV Catheter Type (from Nrsg): Peripheral IV Urinary Cath still in place: Yes Reason Cath still needed: skin wounds contaminated by urine Assessment/Plan Chief Complaint/Hosp Course 1) pneumonia - intravenous antibiotics - monitor clinically 2) respiratory failure - consult pulmonary to evaluate and aid in care 3) encephalopathy - monitor 4) PEG out of position - consult GI for evaluation, possible replacement - tube feeding through NG tube for now Problems: Subjective 24 Hr Interval Summary Free Text/Dictation Patient is not verbally responsive Exam/Review of Systems Vital Signs Vitals Vital Signs Date Time Temp Pulse Resp B/P Pulse Ox O2 Delivery O2 Flow Rate FiO2 08/08/16 08:22 69 08/08/16 08:15 98.3 22 143/90 97 08/08/16 07:36 Aerosol 8.0 35 T Tube Intake and Output 08/07/16 08/07/16 08/08/16 14:59 22:59 06:59 Intake Total 1370 ml 1230 ml Output Total 450 ml 250 ml Balance 920 ml 980 ml Exam Constitutional: well developed Head: atraumatic, normocephalic Neck: supple Respiratory: diminished breath sounds Cardiovascular: regular rate and rhythm Gastrointestinal: non-tender, soft Results Result Diagram: 08/06/1620 08/06/16 0720 Medications Medications Current Medications Ondansetron HCl (Zofran Inj) 4 mg Q6H PRN IV NAUSEA AND/OR VOMITING; Start at 14:00 Acetaminophen (Tylenol Tab) 650 mg Q6H PRN PO PAIN LEVEL 1-3 OR FEVER; Start 07/24/16 at 14:00 Morphine Sulfate (morphine) 2 mg Q4H PRN IV PAIN LEVEL 7-10; Start 07/24/16 at 14:00 Enoxaparin Sodium (Lovenox) 30 mg DAILY SC Last administered on 08/08/16 09:33 ; Admin Dose 30 MG; Start 07/25/16 at 09:00 Hydralazine HCl 20 mg 20 mg Q4H PRN IV SBP > 170 Last administered on 08/04/16 15:11; Admin Dose 20 MG; Start 07/26/16 at 23:00 Potassium Chloride/Sodium Chloride (NS-KCl 20 Meq) 1,000 ml @ 80 mls/hr [id number] IV Last administered on 08/08/16 00:41; Admin Dose 80 MLS/HR; Start at 14:30 Famotidine (Pepcid Iv) 20 mg Q12 IV Last administered on 08/08/16 09:30; Admin Dose 20 MG; Start 08/01/16 at 21:00 Atenolol (Tenormin) 50 mg BID NGT Last administered on 08/08/16 09:30; Admin Dose 50 MG; Start 08/04/16 at 15:30 Fluconazole (Diflucan) 200 mg DAILY NGT ; Start 08/08/16 at 12:30 OLI ZUNIGA Aug 08, 2016 12:14
[2016-08-08] MEDS: FLUCONAZOLE 200 MG TAB NGT SCH (12:59)
[2016-08-09] VITALS (12 sets, daily range): BP systolic 130–138; BP diastolic 74–98; PULSE 61–73; RESP 18–20
[2016-08-09] MEDS: LEVALBUTEROL (NEB) 0.63 MG/3 ML AMP HHN SCH ×4 (01:13→19:24)
[2016-08-09] MEDS: IPRATROPIUM (NEB) 0.5 MG/2.5 ML AMP HHN SCH ×4 (01:13→19:25)
[2016-08-09] MEDS: NS + KCL 20 MEQ 1,000 ML IV SCH ×2 (01:30→13:47)
[2016-08-09 07:40] LABS: CONDITION 1; HEMATOCRIT 34.6 % (42.0-52.0); HEMOGLOBIN 11.1 g/dl (14.0-18.0); MEAN CORPUSCULAR HEMOGLOBIN 26.4 pg (29.0-33.0); MEAN CORPUSCULAR HGB CONC 31.9 g/dl (32.0-37.0); MEAN CORPUSCULAR VOLUME 82.7 fl (82.0-101.0); MEAN PLATELET VOLUME 13.9 fl (7.4-10.4); PLATELET COUNT 240 10^3/UL (140-440); RED BLOOD COUNT 4.19 10^6/ul (4.70-6.10); RED CELL DISTRIBUTION WIDTH 19.4 % (11.5-14.5); SUSPECT 1; UNCORRECTED WBC 4.9 10^3/ul (4.8-10.8); WHITE BLOOD COUNT 4.4 10^3/ul (4.8-10.8)
[2016-08-09 07:41] LABS: LH ANALYZER COMMENTS 1
[2016-08-09 07:42] LABS: POTASSIUM 3.2 mmol/L (3.5-5.1)
[2016-08-09 07:45] LABS: CREATININE 0.49 mg/dl (0.61-1.24)
[2016-08-09 07:46] LABS: CALCIUM 8.3 mg/dl (8.4-10.2)
[2016-08-09] MEDS: FLUCONAZOLE 200 MG TAB NGT SCH (08:48)
[2016-08-09] MEDS: ATENOLOL 50 MG TAB NGT SCH ×2 (08:48→20:32)
[2016-08-09] MEDS: FAMOTIDINE 20 MG INJ IV SCH ×2 (08:48→20:31)
[2016-08-09] MEDS: ENOXAPARIN 30 MG/0.3 ML SYG SC SCH (08:48)
--- NOTE | 2016-08-09 10:37 | CONS ---
Date/Time of Note Date/Time of Note DATE: 08/09/16 TIME: 10:36 Assessment/Plan Assessment/Plan Chief Complaint/Hosp Course assessment/impression - h/o sepsis due to UTI and HCAP - nodular densities of R lung - h/o UTI due to carbapenemase producing kleb UTI - h/o HCAP due to carbapenemase producing kleb and acineto - h/o GIB, on NGT. 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 - HCV infection - colostomy status recommendations - pending: cocci serology, quantiferon TB gold - I recommend 7 day course of fluconazole (08/08/2016-) - contact isolation for carbapenemase producing klebsiella Problems: Consultation Date/Type/Reason Admit Date/Time Jul 24, 2016 at 13:21 Type of Consultation: Infectious Disease Referring Provider: OLI ZUNIGA 24 HR Interval Summary Subjective hx not possible: pt non-verbal Exam/Review of Systems Vital Signs Vitals Vital Signs Date Time Temp Pulse Resp B/P Pulse Ox O2 Delivery O2 Flow Rate FiO2 08/09/16 08:48 5.0 28 08/09/16 08:48 98 08/09/16 08:32 60 20 Aerosol T Tube 08/09/16 07:37 97.9 135/78 Intake and Output 08/08/16 08/08/16 08/09/16 15:00 23:00 07:00 Intake Total 760 ml 1140 ml Output Total 400 ml 600 ml Balance 360 ml 540 ml Exam Constitutional: frail, non-verbal Psych: confusion Head: atraumatic, normocephalic Eyes: nl lids ENMT: nl external ears & nose Respiratory: diminished breath sounds Cardiovascular: nl pulses, regular rate and rhythm Gastrointestinal: non-tender, other (colostomy), soft Extremities: No edema Neurological: confused Skin: other (former G tube site is clean, no purulence or erythema ) Results Result Diagram: 08/09/16 0651 08/09/16 0651 Results 24 hrs Laboratory Tests Test 08/09/16 06:51 Anion Gap 12 Blood Morphology Comment Blood Urea Nitrogen 7 Calcium Level 8.3 L Carbon Dioxide Level 32 H Chloride Level 100 Creatinine 0.49 L Glucose Level 135 Hematocrit 34.6 L Hemoglobin 11.1 L Mean Corpuscular Hemoglobin 26.4 L Mean Corpuscular Hemoglobin Concent 31.9 L Mean Corpuscular Volume 82.7 Mean Platelet Volume 13.9 H Platelet Count 240 Potassium Level 3.2 L Red Blood Count 4.19 L Red Cell Distribution Width 19.4 H Sodium Level 141 White Blood Count 4.4 L Medications Medications Current Medications Ondansetron HCl (Zofran Inj) 4 mg Q6H PRN IV NAUSEA AND/OR VOMITING; Start at 14:00 Acetaminophen (Tylenol Tab) 650 mg Q6H PRN PO PAIN LEVEL 1-3 OR FEVER; Start 07/24/16 at 14:00 Morphine Sulfate (morphine) 2 mg Q4H PRN IV PAIN LEVEL 7-10; Start 07/24/16 at 14:00 Enoxaparin Sodium (Lovenox) 30 mg DAILY SC Last administered on 08/09/16 08:48 ; Admin Dose 30 MG; Start 07/25/16 at 09:00 Hydralazine HCl 20 mg 20 mg Q4H PRN IV SBP > 170 Last administered on 08/04/16 15:11; Admin Dose 20 MG; Start 07/26/16 at 23:00 Potassium Chloride/Sodium Chloride (NS-KCl 20 Meq) 1,000 ml @ 80 mls/hr [id number] IV Last administered on 08/08/16 00:41; Admin Dose 80 MLS/HR; Start at 14:30 Famotidine (Pepcid Iv) 20 mg Q12 IV Last administered on 08/09/16 08:48; Admin Dose 20 MG; Start 08/01/16 at 21:00 Atenolol (Tenormin) 50 mg BID NGT Last administered on 08/09/16 08:48; Admin Dose 50 MG; Start 08/04/16 at 15:30 Fluconazole (Diflucan) 200 mg DAILY NGT Last administered on 08/09/16 08:48; Admin Dose 200 MG; Start 08/08/16 at 12:30 LIZZY EHCK M.D. Aug 09, 2016 10:37
--- NOTE | 2016-08-09 11:50 | PN ---
Date/Time of Note Date/Time of Note DATE: 08/09/16 TIME: 11:41 Assessment/Plan VTE Prophylaxis VTE Prophylaxis Intervention: other Lines/Catheters IV Catheter Type (from Nrsg): Central line still needed: Yes Urinary Cath still in place: Yes Reason Cath still needed: other (indicate) Assessment/Plan Chief Complaint/Hosp Course non verbal Problems: Assessment/Plan a] dysphagia gastrostomy healing well plan peg am Subjective 24 Hr Interval Summary Free Text/Dictation non verbal Exam/Review of Systems Vital Signs Vitals Vital Signs Date Time Temp Pulse Resp B/P Pulse Ox O2 Delivery O2 Flow Rate FiO2 08/09/16 08:48 5.0 28 08/09/16 08:48 98 08/09/16 08:32 60 20 Aerosol T Tube 08/09/16 07:37 97.9 135/78 Intake and Output 08/08/16 08/08/16 08/09/16 15:00 23:00 07:00 Intake Total 760 ml 1140 ml Output Total 400 ml 600 ml Balance 360 ml 540 ml Results pt non verbal heart nsr m lungs has trach abd g tube site healing well Result Diagram: 08/09/16 0651 08/09/16 0651 Results 24 hrs Laboratory Tests Test 08/09/16 06:51 Anion Gap 12 Blood Morphology Comment Blood Urea Nitrogen 7 Calcium Level 8.3 L Carbon Dioxide Level 32 H Chloride Level 100 Creatinine 0.49 L Glucose Level 135 Hematocrit 34.6 L Hemoglobin 11.1 L Mean Corpuscular Hemoglobin 26.4 L Mean Corpuscular Hemoglobin Concent 31.9 L Mean Corpuscular Volume 82.7 Mean Platelet Volume 13.9 H Platelet Count 240 Potassium Level 3.2 L Red Blood Count 4.19 L Red Cell Distribution Width 19.4 H Sodium Level 141 White Blood Count 4.4 L Medications Medications Current Medications Ondansetron HCl (Zofran Inj) 4 mg Q6H PRN IV NAUSEA AND/OR VOMITING; Start at 14:00 Acetaminophen (Tylenol Tab) 650 mg Q6H PRN PO PAIN LEVEL 1-3 OR FEVER; Start 07/24/16 at 14:00 Morphine Sulfate (morphine) 2 mg Q4H PRN IV PAIN LEVEL 7-10; Start 07/24/16 at 14:00 Enoxaparin Sodium (Lovenox) 30 mg DAILY SC Last administered on 08/09/16 08:48 ; Admin Dose 30 MG; Start 07/25/16 at 09:00 Hydralazine HCl 20 mg 20 mg Q4H PRN IV SBP > 170 Last administered on 08/04/16 15:11; Admin Dose 20 MG; Start 07/26/16 at 23:00 Potassium Chloride/Sodium Chloride (NS-KCl 20 Meq) 1,000 ml @ 80 mls/hr [id number] IV Last administered on 08/08/16 00:41; Admin Dose 80 MLS/HR; Start at 14:30 Famotidine (Pepcid Iv) 20 mg Q12 IV Last administered on 08/09/16 08:48; Admin Dose 20 MG; Start 08/01/16 at 21:00 Atenolol (Tenormin) 50 mg BID NGT Last administered on 08/09/16 08:48; Admin Dose 50 MG; Start 08/04/16 at 15:30 Fluconazole (Diflucan) 200 mg DAILY NGT Last administered on 08/09/16 08:48; Admin Dose 200 MG; Start 08/08/16 at 12:30 KATELYN SILVERMAN MD Aug 09, 2016 11:50
[2016-08-09 13:12] LABS: EOSINOPHILS # 0.1 10^3/ul (0.0-0.5); LYMPHOCYTES # 1.2 10^3/ul (0.8-2.9); MONOCYTE # 0.9 10^3/ul (0.3-0.9); NEUTROPHIL # 2.2 10^3/ul (1.6-7.5)
[2016-08-09 13:13] LABS: TARGET CELLS 1+
[2016-08-09] MEDS ORDERED: POTASSIUM CHLORIDE 20 MEQ POWDER FOR ORAL SOLN GTB ONE (17:30)
--- NOTE | 2016-08-09 19:02 | PN ---
Date/Time of Note Date/Time of Note DATE: 08/09/16 TIME: 18:52 Assessment/Plan VTE Prophylaxis VTE Prophylaxis Intervention: LMWH Lines/Catheters IV [facility]ter Type (from [facility]): Urinary Cath still in place: Yes Reason Cath still needed: urinary retention Assessment/Plan Chief Complaint/Hosp Course 1. G-tube dislodgment. Patient is followed by Dr. Morales in gastroenterology consultation. Pending PEG placement in a.m. 2. Sepsis on admission secondary to UTI and HCAP. Dr. Kitty yoo is following in ID consultation. 3. Carbapenemase producing kleb UTI, status post treatment 4. HCAP, status post treatment. 5. COPD 6. 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 7. Status post tracheostomy. 8. Bedbound status status. 9. Hypertension, continue atenolol. Continue Lovenox Lovenox for deep venous thrombosis prophylaxis. Further recommendations based on clinical course. Plan of care discussed with Dr. Meeks. Problems: Subjective 24 Hr Interval Summary Free Text/Dictation Patient looks comfortable, no acute events overnight, no fever nausea vomiting reported per RN. Exam/Review of Systems Vital Signs Vitals Vital Signs Date Time Temp Pulse Resp B/P Pulse Ox O2 Delivery O2 Flow Rate FiO2 08/09/16 16:36 73 08/09/16 15:36 98.1 20 136/86 96 08/09/16 14:50 Aerosol 5.0 28 T Tube Intake and Output 08/08/16 08/08/16 08/09/16 15:00 23:00 07:00 Intake Total 760 ml 1140 ml Output Total 400 ml 600 ml Balance 360 ml 540 ml Exam Constitutional: frail, non-verbal Head: atraumatic, normocephalic Eyes: nl conjunctiva Neck: non-tender, supple Respiratory: diminished breath sounds Cardiovascular: regular rate and rhythm Gastrointestinal: soft Extremities: normal pulses Neurological: confused Results Result Diagram: 08/09/16 0651 08/09/16 0651 Results 24 hrs Laboratory Tests Test 08/09/16 06:51 Anion Gap 12 Blood Morphology Comment Blood Urea Nitrogen 7 Calcium Level 8.3 L Carbon Dioxide Level 32 H Chloride Level 100 Creatinine 0.49 L Eosinophils # 0.1 Eosinophils % 2.0 Glucose Level 135 Hematocrit 34.6 L Hemoglobin 11.1 L Lymphocytes # 1.2 Lymphocytes % 28.0 Mean Corpuscular Hemoglobin 26.4 L Mean Corpuscular Hemoglobin Concent 31.9 L Mean Corpuscular Volume 82.7 Mean Platelet Volume 13.9 H Monocytes # 0.9 Monocytes % 20.0 H Neutrophils # 2.2 Neutrophils % 50.0 Platelet Count 240 Potassium Level 3.2 L Red Blood Count 4.19 L Red Cell Distribution Width 19.4 H Sodium Level 141 Target Cells 1+ White Blood Count 4.4 L Medications Medications Current Medications Ondansetron HCl (Zofran Inj) 4 mg Q6H PRN IV NAUSEA AND/OR VOMITING; Start at 14:00 Acetaminophen (Tylenol Tab) 650 mg Q6H PRN PO PAIN LEVEL 1-3 OR FEVER; Start 07/24/16 at 14:00 Morphine Sulfate (morphine) 2 mg Q4H PRN IV PAIN LEVEL 7-10; Start 07/24/16 at 14:00 Enoxaparin Sodium (Lovenox) 30 mg DAILY SC Last administered on 08/09/16 08:48 ; Admin Dose 30 MG; Start 07/25/16 at 09:00 Hydralazine HCl 20 mg 20 mg Q4H PRN IV SBP > 170 Last administered on 08/04/16 15:11; Admin Dose 20 MG; Start 07/26/16 at 23:00 Potassium Chloride/Sodium Chloride (NS-KCl 20 Meq) 1,000 ml @ 80 mls/hr [id number] IV Last administered on 08/09/16 13:47; Admin Dose 80 MLS/HR; Start at 14:30 Famotidine (Pepcid Iv) 20 mg Q12 IV Last administered on 08/09/16 08:48; Admin Dose 20 MG; Start 08/01/16 at 21:00 Atenolol (Tenormin) 50 mg BID NGT Last administered on 08/09/16 08:48; Admin Dose 50 MG; Start 08/04/16 at 15:30 Fluconazole (Diflucan) 200 mg DAILY NGT Last administered on 08/09/16 08:48; Admin Dose 200 MG; Start 08/08/16 at 12:30 AMY MORAN Aug 09, 2016 19:02
[2016-08-10] VITALS (24 sets, daily range): BP systolic 127–183; BP diastolic 72–102; PULSE 48–86; RESP 16–25
[2016-08-10] MEDS: IPRATROPIUM (NEB) 0.5 MG/2.5 ML AMP HHN SCH ×4 (01:23→19:41)
[2016-08-10] MEDS: LEVALBUTEROL (NEB) 0.63 MG/3 ML AMP HHN SCH ×4 (01:23→19:41)
[2016-08-10] MEDS: NS + KCL 20 MEQ 1,000 ML IV SCH ×2 (02:30→04:59)
[2016-08-10 07:02] LABS: HEMATOCRIT 32.7 % (42.0-52.0); HEMOGLOBIN 10.3 g/dl (14.0-18.0); MEAN CORPUSCULAR HEMOGLOBIN 26.4 pg (29.0-33.0); MEAN CORPUSCULAR HGB CONC 31.6 g/dl (32.0-37.0); MEAN CORPUSCULAR VOLUME 83.5 fl (82.0-101.0); MEAN PLATELET VOLUME 13.4 fl (7.4-10.4); RED BLOOD COUNT 3.92 10^6/ul (4.70-6.10)
[2016-08-10 07:11] LABS: POTASSIUM 3.7 mmol/L (3.5-5.1)
[2016-08-10 07:14] LABS: CREATININE 0.5 mg/dl (0.61-1.24)
[2016-08-10 07:15] LABS: CALCIUM 8.3 mg/dl (8.4-10.2)
[2016-08-10 07:17] LABS: PLATELET COUNT 186 10^3/UL (140-440); SUSPECT 1; UNCORRECTED WBC 6.1 10^3/ul (4.8-10.8)
[2016-08-10 07:18] LABS: CONDITION 1; LH ANALYZER COMMENTS 1
[2016-08-10] MEDS: FLUCONAZOLE 200 MG TAB NGT SCH (09:00)
[2016-08-10] MEDS: ATENOLOL 50 MG TAB NGT SCH ×2 (09:00→21:20)
[2016-08-10] MEDS: FAMOTIDINE 20 MG INJ IV SCH ×2 (09:21→21:20)
[2016-08-10 09:26] LABS: EOSINOPHILS # 0.2 10^3/ul (0.0-0.5); LYMPHOCYTES # 1.7 10^3/ul (0.8-2.9); MONOCYTE # 0.5 10^3/ul (0.3-0.9); NEUTROPHIL # 1.6 10^3/ul (1.6-7.5)
[2016-08-10 09:27] LABS: PLATELETS CLUMPS FEW
[2016-08-10] MEDS: ENOXAPARIN 30 MG/0.3 ML SYG SC SCH (09:27)
--- NOTE | 2016-08-10 15:09 | PN ---
Date/Time of Note Date/Time of Note DATE: 08/10/16 TIME: 15:06 Assessment/Plan VTE Prophylaxis VTE Prophylaxis Intervention: SCD's Lines/Catheters IV Catheter Type (from Nrs): Peripheral IV Central line still needed: Yes Urinary Cath still in place: Yes Reason Cath still needed: urinary retention Assessment/Plan Chief Complaint/Hosp Course 1. G-tube dislodgment. Patient is followed by Dr. Morales in gastroenterology consultation. Pending PEG placement today. 2. Sepsis on admission secondary to UTI and HCAP. Dr. Kitty yoo is following in ID consultation. 3. Carbapenemase producing kleb UTI, status post treatment 4. HCAP, status post treatment. 5. COPD 6. 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 7. Status post tracheostomy. 8. Bedbound status status. 9. Hypertension, continue atenolol. Continue Lovenox Lovenox for deep venous thrombosis prophylaxis. Further recommendations based on clinical course. Plan of care discussed with Dr. Meeks. Problems: Subjective 24 Hr Interval Summary Free Text/Dictation Patient is currently n.p.o. for G-tube placement, continues to have a large amount of secretions from the trach, trach to cool aerosol mist 28% Exam/Review of Systems Vital Signs Vitals Vital Signs Date Time Temp Pulse Resp B/P Pulse Ox O2 Delivery O2 Flow Rate FiO2 08/10/16 13:18 67 16 96 Aerosol 5.0 28 T Tube 08/10/16 11:45 98.2 155/88 Intake and Output 08/09/16 08/09/16 08/10/16 15:00 23:00 07:00 Intake Total 1180 ml 860 ml Output Total 800 ml 500 ml Balance 380 ml 360 ml Exam Constitutional: frail, non-verbal Head: atraumatic, normocephalic Eyes: nl conjunctiva Neck: non-tender, supple, tracheostomy at the base of the neck. Respiratory: diminished breath sounds Cardiovascular: regular rate and rhythm Gastrointestinal: soft Extremities: normal pulses Neurological: confused Results Result Diagram: 08/10/16 0620 08/10/16 0620 Results 24 hrs Laboratory Tests Test 08/10/16 06:20 Anion Gap 13 Band Neutrophils % 2.0 Blood Morphology Comment Blood Urea Nitrogen 7 Calcium Level 8.3 L Carbon Dioxide Level 32 H Chloride Level 99 Clumped Platelets FEW Creatinine 0.50 L Eosinophils # 0.2 Eosinophils % 5.0 Glucose Level 96 Hematocrit 32.7 L Hemoglobin 10.3 L Large Platelets 1+ Lymphocytes # 1.7 Lymphocytes % 42.0 Mean Corpuscular Hemoglobin 26.4 L Mean Corpuscular Hemoglobin Concent 31.6 L Mean Corpuscular Volume 83.5 Mean Platelet Volume 13.4 H Monocytes # 0.5 Monocytes % 12.0 H Neutrophils # 1.6 Neutrophils % 39.0 Platelet Count 186 # Potassium Level 3.7 Red Blood Count 3.92 L Red Cell Distribution Width 19.0 H Sodium Level 140 White Blood Count 4.0 L Medications Medications Current Medications Ondansetron HCl (Zofran Inj) 4 mg Q6H PRN IV NAUSEA AND/OR VOMITING; Start at 14:00 Acetaminophen (Tylenol Tab) 650 mg Q6H PRN PO PAIN LEVEL 1-3 OR FEVER; Start 07/24/16 at 14:00 Morphine Sulfate (morphine) 2 mg Q4H PRN IV PAIN LEVEL 7-10; Start 07/24/16 at 14:00 Enoxaparin Sodium (Lovenox) 30 mg DAILY SC Last administered on 08/10/16 09:27 ; Admin Dose 30 MG; Start 07/25/16 at 09:00 Hydralazine HCl 20 mg 20 mg Q4H PRN IV SBP > 170 Last administered on 08/04/16 15:11; Admin Dose 20 MG; Start 07/26/16 at 23:00 Potassium Chloride/Sodium Chloride (NS-KCl 20 Meq) 1,000 ml @ 80 mls/hr [id number] IV Last administered on 08/10/16 04:59; Admin Dose 80 MLS/HR; Start 07/28/16 at 14:30 Famotidine (Pepcid Iv) 20 mg Q12 IV Last administered on 08/10/16 09:21; Admin Dose 20 MG; Start 08/01/16 at 21:00 Atenolol (Tenormin) 50 mg BID NGT Last administered on 08/09/16 20:32; Admin Dose 50 MG; Start 08/04/16 at 15:30 Fluconazole (Diflucan) 200 mg DAILY NGT Last administered on 08/09/16 08:48; Admin Dose 200 MG; Start 08/08/16 at 12:30 AMY MORAN Aug 10, 2016 15:09
[2016-08-10 15:47] LABS: TB-NIL 0.97 IU/mL
[2016-08-10] MEDS ORDERED: PROPOFOL 20 ML ONE (15:55)
[2016-08-10] MEDS ORDERED: LIDOCAINE 2% (SDV) 5 ML INJ ONE (15:55)
[2016-08-10] MEDS ORDERED: CEFAZOLIN 2 GM/50 ML (PMX) 50 ML IVPB ONE (16:36)
--- NOTE | 2016-08-10 17:14 | CONS ---
Date/Time of Note Date/Time of Note DATE: 08/10/16 TIME: 17:10 Assessment/Plan Assessment/Plan Chief Complaint/Hosp Course assessment/impression - h/o sepsis due to UTI and HCAP - positive quantiferon TB gold status of unknown duration - h/o UTI due to carbapenemase producing kleb UTI - h/o HCAP due to carbapenemase producing kleb and acineto - h/o GIB, on NGT. 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 - HCV infection - colostomy status recommendations - pending: cocci serology - check LFTs - I recommend 7 day course of fluconazole (08/08/2016-) - given his age and co-morbidities, I recommend holding off long-term INH treatment because of potential hepatic and neurological toxicities - contact isolation for carbapenemase producing klebsiella Problems: Consultation Date/Type/Reason Admit Date/Time Jul 24, 2016 at 13:21 Type of Consultation: ID Referring Provider: OLI ZUNIGA 24 HR Interval Summary Subjective hx not possible: pt non-verbal Exam/Review of Systems Vital Signs Vitals Vital Signs Date Time Temp Pulse Resp B/P Pulse Ox O2 Delivery O2 Flow Rate FiO2 08/10/16 16:09 74 08/10/16 13:18 16 96 Aerosol 5.0 28 T Tube 08/10/16 11:45 98.2 155/88 Intake and Output 08/09/16 08/09/16 08/10/16 15:00 23:00 07:00 Intake Total 1180 ml 860 ml Output Total 800 ml 500 ml Balance 380 ml 360 ml Exam Pt was getting PEG tube placement and I was unable to examine him Results Result Diagram: 08/10/16 0620 08/10/16 0620 Results 24 hrs Laboratory Tests Test 08/10/16 06:20 Anion Gap 13 Band Neutrophils % 2.0 Blood Morphology Comment Blood Urea Nitrogen 7 Calcium Level 8.3 L Carbon Dioxide Level 32 H Chloride Level 99 Clumped Platelets FEW Creatinine 0.50 L Eosinophils # 0.2 Eosinophils % 5.0 Glucose Level 96 Hematocrit 32.7 L Hemoglobin 10.3 L Large Platelets 1+ Lymphocytes # 1.7 Lymphocytes % 42.0 Mean Corpuscular Hemoglobin 26.4 L Mean Corpuscular Hemoglobin Concent 31.6 L Mean Corpuscular Volume 83.5 Mean Platelet Volume 13.4 H Monocytes # 0.5 Monocytes % 12.0 H Neutrophils # 1.6 Neutrophils % 39.0 Platelet Count 186 # Potassium Level 3.7 Red Blood Count 3.92 L Red Cell Distribution Width 19.0 H Sodium Level 140 White Blood Count 4.0 L Medications Medications Current Medications Ondansetron HCl (Zofran Inj) 4 mg Q6H PRN IV NAUSEA AND/OR VOMITING; Start at 14:00 Acetaminophen (Tylenol Tab) 650 mg Q6H PRN PO PAIN LEVEL 1-3 OR FEVER; Start 07/24/16 at 14:00 Morphine Sulfate (morphine) 2 mg Q4H PRN IV PAIN LEVEL 7-10; Start 07/24/16 at 14:00 Enoxaparin Sodium (Lovenox) 30 mg DAILY SC Last administered on 08/10/16 09:27 ; Admin Dose 30 MG; Start 07/25/16 at 09:00 Hydralazine HCl 20 mg 20 mg Q4H PRN IV SBP > 170 Last administered on 08/04/16 15:11; Admin Dose 20 MG; Start 07/26/16 at 23:00 Potassium Chloride/Sodium Chloride (NS-KCl 20 Meq) 1,000 ml @ 80 mls/hr [id number] IV Last administered on 08/10/16 04:59; Admin Dose 80 MLS/HR; Start 07/28/16 at 14:30 Famotidine (Pepcid Iv) 20 mg Q12 IV Last administered on 08/10/16 09:21; Admin Dose 20 MG; Start 08/01/16 at 21:00 Atenolol (Tenormin) 50 mg BID NGT Last administered on 08/09/16 20:32; Admin Dose 50 MG; Start 08/04/16 at 15:30 Fluconazole (Diflucan) 200 mg DAILY NGT Last administered on 08/09/16 08:48; Admin Dose 200 MG; Start 08/08/16 at 12:30 LIZZY HECK M.D. Aug 10, 2016 17:14
[2016-08-10] MEDS ORDERED: EPHEDrine SULFATE 50 MG/5 ML SYG ONE (17:39)
[2016-08-10] MEDS ORDERED: ONDANSETRON 4 MG INJ IV PRN (18:00)
--- NOTE | 2016-08-10 21:38 | GILP ---
DATE OF PROCEDURE: NAME OF PROCEDURE: Esophagogastroduodenoscopy, percutaneous endoscopic gastrostomy tube placement. PREOPERATIVE DIAGNOSES: The patient presenting with a history of difficulty in swallowing. He had a G-tube in place, which was migrated and removed. A new gastrostomy tube needs to be placed for lo ng-term nutritional support. POSTOPERATIVE DIAGNOSES: The patient presenting with a history of difficulty in swallowing. He had a G-tube in place, which was migrated and removed. A new gastrostomy tube needs to be placed for l tobias-term nutritional support. DESCRIPTION OF PROCEDURE: After informed written consent was obtained, the patient was asked to lie on the left lateral side. The patient was given intravenous anesthesia by anesthesiologist. When the patient became somnolent, the Olympus video upper endoscope was introduced into the oropharynx, then into the esophagus. Subsequently, the scope was advanced into the stomach. Stomach showed sylvie dence of old gastrostomy site. Rest of the stomach appeared normal. Duodenum appeared normal. Sco pe at this time was withdrawn to the level of the gastric cavity. The anterior abdominal wall was p repared with Betadine and alcohol. Then 2 mL of 2% Xylocaine was infiltrated at the endoscopic illu minating site in the epigastric region. At this time, 5 mm incision was made by using the scalpel. Through this incision, trocar was inserted into the stomach and the guidewire was inserted into the stomach through the trocar. The guidewire was grabbed with a polypectomy snare and then it was bro ught out through the mouth along with the endoscope with the help of a polypectomy snare. At this t bora, the G-tube was tied to this end of the guidewire. Then, it was brought out through the abdomin al wall incision. Retention bumper was placed over the G-tube close to the skin. The tapered end o f the gastrostomy tube was cut, the adapter was placed, and the procedure was terminated. PLAN: Recommend starting G-tube feeding in a.m. Dictated By: KATELYN FERRARI/NTS Conf#: [id number] DID#: [id number] CC: KATELYN SILVERMAN MD; MARLA AKBAR MD;*EndCC*
[2016-08-11] VITALS (13 sets, daily range): BP systolic 139–180; BP diastolic 80–103; PULSE 67–88; RESP 17–20
[2016-08-11] MEDS: IPRATROPIUM (NEB) 0.5 MG/2.5 ML AMP HHN SCH ×4 (02:21→20:09)
[2016-08-11] MEDS: LEVALBUTEROL (NEB) 0.63 MG/3 ML AMP HHN SCH ×4 (02:21→20:09)
[2016-08-11] MEDS: NS + KCL 20 MEQ 1,000 ML IV SCH ×2 (03:30→08:38)
[2016-08-11 06:51] LABS: HEMATOCRIT 34.2 % (42.0-52.0); HEMOGLOBIN 11.2 g/dl (14.0-18.0); MEAN CORPUSCULAR HEMOGLOBIN 27.1 pg (29.0-33.0); MEAN CORPUSCULAR HGB CONC 32.8 g/dl (32.0-37.0); MEAN CORPUSCULAR VOLUME 82.6 fl (82.0-101.0); MEAN PLATELET VOLUME 13.9 fl (7.4-10.4); RED BLOOD COUNT 4.14 10^6/ul (4.70-6.10); RED CELL DISTRIBUTION WIDTH 19.4 % (11.5-14.5); WHITE BLOOD COUNT 7.1 10^3/ul (4.8-10.8)
[2016-08-11 06:53] LABS: CONDITION 1; LH ANALYZER COMMENTS 1; PLATELET COUNT 196 10^3/UL (140-440); SUSPECT 1; UNCORRECTED WBC 8.2 10^3/ul (4.8-10.8)
[2016-08-11 07:02] LABS: ALBUMIN 2.8 g/dl (3.3-4.9)
[2016-08-11 07:03] LABS: POTASSIUM 3.8 mmol/L (3.5-5.1)
[2016-08-11 07:05] LABS: ALBUMIN/GLOBULIN RATIO 0.71; BILIRUBIN,INDIRECT 0.3 mg/dl (0-1.1); BILIRUBIN,TOTAL 0.3 mg/dl (0.2-1.3); CALCIUM 8.3 mg/dl (8.4-10.2); CREATININE 0.5 mg/dl (0.61-1.24); TOTAL PROTEIN 6.7 g/dl (6.1-8.1)
[2016-08-11] MEDS: ENOXAPARIN 30 MG/0.3 ML SYG SC SCH (08:37)
[2016-08-11] MEDS: FAMOTIDINE 20 MG INJ IV SCH ×2 (08:38→21:41)
[2016-08-11] MEDS: FLUCONAZOLE 200 MG TAB NGT SCH (08:38)
[2016-08-11] MEDS: ATENOLOL 50 MG TAB NGT SCH ×2 (08:38→21:41)
--- NOTE | 2016-08-11 09:15 | CONS ---
Date/Time of Note Date/Time of Note DATE: 08/11/16 TIME: 09:13 Assessment/Plan Assessment/Plan Chief Complaint/Hosp Course assessment/impression - h/o sepsis due to UTI and HCAP - positive quantiferon TB gold status of unknown duration - h/o UTI due to carbapenemase producing kleb UTI - h/o HCAP due to carbapenemase producing kleb and acineto - h/o GIB, on NGT. 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 - HCV infection - colostomy status recommendations - pending: cocci serology - complete 7 day course of fluconazole (08/08/2016-) - given his age and co-morbidities, I recommend holding off long-term INH treatment because of potential hepatic and neurological toxicities - keep Pt on contact isolation for carbapenemase producing klebsiella Problems: Consultation Date/Type/Reason Admit Date/Time Jul 24, 2016 at 13:21 Type of Consultation: ID Referring Provider: OLI ZUNIGA 24 HR Interval Summary Free Text/Dictation G tube was placed Subjective hx not possible: pt non-verbal Exam/Review of Systems Vital Signs Vitals Vital Signs Date Time Temp Pulse Resp B/P Pulse Ox O2 Delivery O2 Flow Rate FiO2 08/11/16 08:37 76 18 95 Aerosol 5.0 28 08/11/16 07:52 98.4 159/83 Intake and Output 08/10/16 08/10/16 08/11/16 15:00 23:00 07:00 Intake Total 640 ml Output Total 560 ml 1000 ml Balance 80 ml -1000 ml Exam Constitutional: frail, non-verbal Psych: confusion Head: other (temporal wasting b/l) Eyes: nl conjunctiva, nl lids ENMT: nl external ears & nose, nl nasal mucosa & septum, other (+thrush) Respiratory: diminished breath sounds Cardiovascular: nl pulses, regular rate and rhythm Gastrointestinal: non-tender, other (GT colostomy in place), soft Musculoskeletal: other (muscle atrophy) Extremities: No edema Neurological: confused Skin: nl turgor Results Result Diagram: 08/11/16 0610 08/11/16 0610 Results 24 hrs Laboratory Tests Test 08/11/16 06:10 Alanine Aminotransferase (ALT/SGPT) 22 Albumin 2.8 L Albumin/Globulin Ratio 0.71 Alkaline Phosphatase 68 Anion Gap 15 Aspartate Amino Transf (AST/SGOT) 19 Blood Morphology Comment Blood Urea Nitrogen 6 L Calcium Level 8.3 L Carbon Dioxide Level 28 Chloride Level 97 Creatinine 0.50 L Direct Bilirubin 0.00 Globulin 3.90 H Glucose Level 99 Hematocrit 34.2 L Hemoglobin 11.2 L Indirect Bilirubin 0.3 Mean Corpuscular Hemoglobin 27.1 L Mean Corpuscular Hemoglobin Concent 32.8 Mean Corpuscular Volume 82.6 Mean Platelet Volume 13.9 H Platelet Count 196 Potassium Level 3.8 Red Blood Count 4.14 L Red Cell Distribution Width 19.4 H Sodium Level 136 Total Bilirubin 0.3 Total Protein 6.7 White Blood Count 7.1 # Medications Medications Current Medications Ondansetron HCl (Zofran Inj) 4 mg Q6H PRN IV NAUSEA AND/OR VOMITING; Start at 14:00 Acetaminophen (Tylenol Tab) 650 mg Q6H PRN PO PAIN LEVEL 1-3 OR FEVER; Start 07/24/16 at 14:00 Morphine Sulfate (morphine) 2 mg Q4H PRN IV PAIN LEVEL 7-10; Start 07/24/16 at 14:00 Enoxaparin Sodium (Lovenox) 30 mg DAILY SC Last administered on 08/11/16 08:37 ; Admin Dose 30 MG; Start 07/25/16 at 09:00 Hydralazine HCl 20 mg 20 mg Q4H PRN IV SBP > 170 Last administered on 08/04/16 15:11; Admin Dose 20 MG; Start 07/26/16 at 23:00 Potassium Chloride/Sodium Chloride (NS-KCl 20 Meq) 1,000 ml @ 80 mls/hr [id number] IV Last administered on 08/11/16 08:38; Admin Dose 80 MLS/HR; Start 07/28/16 at 14:30 Famotidine (Pepcid Iv) 20 mg Q12 IV Last administered on 08/11/16 08:38; Admin Dose 20 MG; Start 08/01/16 at 21:00 Atenolol (Tenormin) 50 mg BID NGT Last administered on 08/11/16 08:38; Admin Dose 50 MG; Start 08/04/16 at 15:30 Fluconazole (Diflucan) 200 mg DAILY NGT Last administered on 08/11/16t 08:38; Admin Dose 200 MG; Start 08/08/16 at 12:30 LIZZY HECK M.D. Aug 11, 2016 09:15
[2016-08-11 09:21] LABS: ANISOCYTOSIS 1+; EOSINOPHILS # 0.1 10^3/ul (0.0-0.5); HYPOCHROMASIA 1+; LYMPHOCYTES # 1.6 10^3/ul (0.8-2.9); MONOCYTE # 0.6 10^3/ul (0.3-0.9); NEUTROPHIL # 4.8 10^3/ul (1.6-7.5)
--- NOTE | 2016-08-11 16:50 | PN ---
Date/Time of Note Date/Time of Note DATE: 08/11/16 TIME: 16:48 Assessment/Plan VTE Prophylaxis VTE Prophylaxis Intervention: LMWH Lines/Catheters IV Catheter Type (from Nrs): Peripheral IV Central line still needed: Yes Urinary Cath still in place: Yes Reason Cath still needed: urinary retention Assessment/Plan Chief Complaint/Hosp Course 1. G-tube dislodgment. Patient is followed by Dr. Morales in gastroenterology consultation. Status post PEG placement 08/10. 2. Sepsis on admission secondary to UTI and HCAP. Dr. Kitty yoo is following in ID consultation. 3. Carbapenemase producing kleb UTI, status post treatment 4. HCAP, status post treatment. 5. COPD, continue breathing treatments. 6. 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 7. Status post tracheostomy. 8. Bedbound status status. 9. Hypertension, continue atenolol. Continue Lovenox Lovenox for deep venous thrombosis prophylaxis. Further recommendations based on clinical course. Plan of care discussed with Dr. Meeks. Problems: Subjective 24 Hr Interval Summary Free Text/Dictation Patient's continues on tracheostomy tube T-tube was 28% cool aerosol mist, status post G-tube placement, started on G-tube feeding tolerates it well so far , still moderate to large amount of secretions. Exam/Review of Systems Vital Signs Vitals Vital Signs Date Time Temp Pulse Resp B/P Pulse Ox O2 Delivery O2 Flow Rate FiO2 08/11/16 16:16 67 08/11/16 15:32 97.8 20 162/89 90 08/11/16 13:42 Aerosol 5.0 28 Intake and Output 08/10/16 08/10/16 08/11/16 15:00 23:00 07:00 Intake Total 640 ml Output Total 560 ml 1000 ml Balance 80 ml -1000 ml Exam Constitutional: frail, non-verbal Head: atraumatic, normocephalic Eyes: nl conjunctiva Neck: non-tender, supple, tracheostomy at the base of the neck. Respiratory: diminished breath sounds Cardiovascular: regular rate and rhythm Gastrointestinal: soft Extremities: normal pulses Neurological: confused Results Result Diagram: 08/11/16 0610 08/11/16 0610 Results 24 hrs Laboratory Tests Test 08/11/16 06:10 Alanine Aminotransferase (ALT/SGPT) 22 Albumin 2.8 L Albumin/Globulin Ratio 0.71 Alkaline Phosphatase 68 Anion Gap 15 Anisocytosis 1+ Aspartate Amino Transf (AST/SGOT) 19 Blood Morphology Comment Blood Urea Nitrogen 6 L Calcium Level 8.3 L Carbon Dioxide Level 28 Chloride Level 97 Creatinine 0.50 L Differential Comment MANUAL DIFF Direct Bilirubin 0.00 Eosinophils # 0.1 Eosinophils % 1.0 Globulin 3.90 H Glucose Level 99 Hematocrit 34.2 L Hemoglobin 11.2 L Hypochromasia 1+ Indirect Bilirubin 0.3 Lymphocytes # 1.6 Lymphocytes % 22.0 Mean Corpuscular Hemoglobin 27.1 L Mean Corpuscular Hemoglobin Concent 32.8 Mean Corpuscular Volume 82.6 Mean Platelet Volume 13.9 H Monocytes # 0.6 Monocytes % 9.0 Neutrophils # 4.8 Neutrophils % 68.0 Platelet Count 196 Potassium Level 3.8 Red Blood Count 4.14 L Red Cell Distribution Width 19.4 H Sodium Level 136 Total Bilirubin 0.3 Total Protein 6.7 White Blood Count 7.1 # Medications Medications Current Medications Ondansetron HCl (Zofran Inj) 4 mg Q6H PRN IV NAUSEA AND/OR VOMITING; Start at 14:00 Acetaminophen (Tylenol Tab) 650 mg Q6H PRN PO PAIN LEVEL 1-3 OR FEVER; Start 07/24/16 at 14:00 Morphine Sulfate (morphine) 2 mg Q4H PRN IV PAIN LEVEL 7-10; Start 07/24/16 at 14:00 Enoxaparin Sodium (Lovenox) 30 mg DAILY SC Last administered on 08/11/16 08:37 ; Admin Dose 30 MG; Start 07/25/16 at 09:00 Hydralazine HCl 20 mg 20 mg Q4H PRN IV SBP > 170 Last administered on 08/04/16 15:11; Admin Dose 20 MG; Start 07/26/16 at 23:00 Potassium Chloride/Sodium Chloride (NS-KCl 20 Meq) 1,000 ml @ 80 mls/hr [id number] IV Last administered on 08/11/16 08:38; Admin Dose 80 MLS/HR; Start 07/28/16 at 14:30 Famotidine (Pepcid Iv) 20 mg Q12 IV Last administered on 08/11/16 08:38; Admin Dose 20 MG; Start 08/01/16 at 21:00 Atenolol (Tenormin) 50 mg BID NGT Last administered on 08/11/16 08:38; Admin Dose 50 MG; Start 08/04/16 at 15:30 Fluconazole (Diflucan) 200 mg DAILY NGT Last administered on 08/11/16 08:38; Admin Dose 200 MG; Start 08/08/16 at 12:30 AMY MORAN Aug 11, 2016 16:50
[2016-08-12] VITALS (14 sets, daily range): BP systolic 141–170; BP diastolic 78–105; PULSE 55–95; RESP 17–20
[2016-08-12] MEDS: LEVALBUTEROL (NEB) 0.63 MG/3 ML AMP HHN SCH ×3 (01:41→14:51)
[2016-08-12] MEDS: IPRATROPIUM (NEB) 0.5 MG/2.5 ML AMP HHN SCH ×3 (01:41→14:51)
[2016-08-12] MEDS: NS + KCL 20 MEQ 1,000 ML IV SCH ×2 (05:10→17:00)
[2016-08-12 08:06] LABS: HEMOGLOBIN 11.1 g/dl (14.0-18.0); MEAN CORPUSCULAR HEMOGLOBIN 26.5 pg (29.0-33.0); WHITE BLOOD COUNT 5.9 10^3/ul (4.8-10.8)
[2016-08-12 08:07] LABS: POTASSIUM 4.1 mmol/L (3.5-5.1)
[2016-08-12 08:10] LABS: CREATININE 0.47 mg/dl (0.61-1.24)
[2016-08-12 08:11] LABS: CALCIUM 8.7 mg/dl (8.4-10.2)
[2016-08-12 08:28] LABS: CONDITION 1
[2016-08-12 08:33] LABS: MEAN PLATELET VOLUME 14.2 fl (7.4-10.4)
[2016-08-12 08:34] LABS: HEMATOCRIT 34.6 % (42.0-52.0); LH ANALYZER COMMENTS 1; MEAN CORPUSCULAR HGB CONC 32.2 g/dl (32.0-37.0); MEAN CORPUSCULAR VOLUME 82.3 fl (82.0-101.0); PLATELET COUNT 238 10^3/UL (140-440); RED CELL DISTRIBUTION WIDTH 19.8 % (11.5-14.5); SUSPECT 1; UNCORRECTED WBC 6.5 10^3/ul (4.8-10.8)
[2016-08-12] MEDS: FLUCONAZOLE 200 MG TAB NGT SCH (08:48)
[2016-08-12] MEDS: FAMOTIDINE 20 MG INJ IV SCH (08:48)
[2016-08-12] MEDS: ATENOLOL 50 MG TAB NGT SCH (08:49)
[2016-08-12] MEDS: ENOXAPARIN 30 MG/0.3 ML SYG SC SCH (08:52)
[2016-08-12 09:51] LABS: ANISOCYTOSIS 2+; EOSINOPHILS # 0.2 10^3/ul (0.0-0.5); HYPOCHROMASIA 2+; LYMPHOCYTES # 1.7 10^3/ul (0.8-2.9); MONOCYTE # 0.3 10^3/ul (0.3-0.9); NEUTROPHIL # 3.4 10^3/ul (1.6-7.5)
--- NOTE | 2016-08-12 16:31 | CONS ---
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 - HCV infection - colostomy status recommendations - pending: cocci serology - complete 7 day course of fluconazole (08/08/2016-) - given his age and co-morbidities, I recommend holding off long-term INH treatment because of potential hepatic and neurological toxicities - keep Pt on contact isolation for carbapenemase producing klebsiella Problems: Consultation Date/Type/Reason Admit Date/Time Jul 24, 2016 at 13:21 Type of Consultation: ID Referring Provider: OLI ZUNIGA Exam/Review of Systems Vital Signs Vitals Vital Signs Date Time Temp Pulse Resp B/P Pulse Ox O2 Delivery O2 Flow Rate FiO2 08/12/16 14:56 94 5.0 28 08/12/16 14:54 62 20 Aerosol 08/12/16 12:00 97.9 162/95 Intake and Output 08/11/16 08/11/16 08/12/16 15:00 23:00 07:00 Intake Total 510 ml Output Total 380 ml Balance 130 ml Exam Constitutional: non-verbal Psych: no complaints Head: atraumatic, normocephalic Respiratory: diminished breath sounds Cardiovascular: nl pulses, regular rate and rhythm Results Result Diagram: 08/12/16 0712 08/12/16 0717 Results 24 hrs Laboratory Tests Test 08/12/16 07:12 08/12/16 07:17 Anisocytosis 2+ Band Neutrophils % 5.0 Blood Morphology Comment Differential Comment MANUAL DIFF Eosinophils # 0.2 Eosinophils % 4.0 Hematocrit 34.6 L Hemoglobin 11.1 L Hypochromasia 2+ Lymphocytes # 1.7 Lymphocytes % 28.0 Mean Corpuscular Hemoglobin 26.5 L Mean Corpuscular Hemoglobin Concent 32.2 Mean Corpuscular Volume 82.3 Mean Platelet Volume 14.2 H Metamyelocytes # 0.1 Metamyelocytes % 1.0 H Monocytes # 0.3 Monocytes % 5.0 Neutrophils # 3.4 Neutrophils % 57.0 Platelet Count 238 # Red Blood Count 4.20 L Red Cell Distribution Width 19.8 H White Blood Count 5.9 Anion Gap 14 Blood Urea Nitrogen 6 L Calcium Level 8.7 Carbon Dioxide Level 30 Chloride Level 97 Creatinine 0.47 L Glucose Level 134 Potassium Level 4.1 Sodium Level 137 Medications Medications Current Medications Ondansetron HCl (Zofran Inj) 4 mg Q6H PRN IV NAUSEA AND/OR VOMITING; Start at 14:00 Acetaminophen (Tylenol Tab) 650 mg Q6H PRN PO PAIN LEVEL 1-3 OR FEVER; Start 07/24/16 at 14:00 Morphine Sulfate (morphine) 2 mg Q4H PRN IV PAIN LEVEL 7-10; Start 07/24/16 at 14:00 Enoxaparin Sodium (Lovenox) 30 mg DAILY SC Last administered on 08/12/16 08:52 ; Admin Dose 30 MG; Start 07/25/16 at 09:00 Hydralazine HCl 20 mg 20 mg Q4H PRN IV SBP > 170 Last administered on 08/04/16 15:11; Admin Dose 20 MG; Start 07/26/16 at 23:00 Potassium Chloride/Sodium Chloride (NS-KCl 20 Meq) 1,000 ml @ 80 mls/hr [id number] IV Last administered on 08/12/16 05:10; Admin Dose 80 MLS/HR; Start 07/28/16 at 14:30 Famotidine (Pepcid Iv) 20 mg Q12 IV Last administered on 08/12/16 08:48; Admin Dose 20 MG; Start 08/01/16 at 21:00 Atenolol (Tenormin) 50 mg BID NGT Last administered on 08/12/16 08:49; Admin Dose 50 MG; Start 08/04/16 at 15:30 Fluconazole (Diflucan) 200 mg DAILY NGT Last administered on 08/12/16 08:48; Admin Dose 200 MG; Start 08/08/16 at 12:30 MARIBELL SUN MD Aug 12, 2016 16:31
[2016-08-12] MEDS: hydrALAzine 20 MG INJ IV PRN (18:06)
== END 2016-08-12 18:52 | DRG 871 ==
LOC: E/R 11:31 → MS4 13:21
PROVIDERS: ADMIT Internal Medicine; ATTEND Internal Medicine
PROC: 2W53XYZ Removal of Other Device on Abdominal Wall (ICD-10-PCS; 2016-08-06)
PROC: 0DH63UZ Insertion of Feeding Device into Stomach, Percutaneous Approach (ICD-10-PCS; principal; 2016-08-10 16:30)
DX: A41.9 Sepsis, unspecified organism (principal); J15.0 Pneumonia due to Klebsiella pneumoniae; J15.6 Pneumonia due to other Gram-negative bacteria; G93.49 Other encephalopathy; J96.10 Chronic respiratory failure, unspecified whether with hypoxia or hypercapnia; B37.0 Candidal stomatitis; N39.0 Urinary tract infection, site not specified; K94.23 Gastrostomy malfunction; J44.9 Chronic obstructive pulmonary disease, unspecified; E87.5 Hyperkalemia; E86.0 Dehydration; B96.1 Klebsiella pneumoniae [K. pneumoniae] as the cause of diseases classified elsewhere; B19.20 Unspecified viral hepatitis C without hepatic coma; E87.6 Hypokalemia; D64.9 Anemia, unspecified; Z93.3 Colostomy status; R13.10 Dysphagia, unspecified; Y83.3 Surgical operation with formation of external stoma as the cause of abnormal reaction of the patient, or of later complication, without mention of misadventure at the time of the procedure; Y92.238 Other place in hospital as the place of occurrence of the external cause; I10 Essential (primary) hypertension; Z74.01 Bed confinement status; Z93.0 Tracheostomy status
CPT/HCPCS: 36415; 71010; 74000; 80048; 80053; 81001; 81003; 83605; 83690; 84145; 84484; 85025; 85610; 86480; 86635; 86850; 86900; 86901; 87040; 87070; 87081; 87086; 87400; 89220; 90686; 93005; 94640; 94644; 94664; 96374; 96375; 96376; J0360; J0690; J0692; J1650; J1956; J2354; J2405; J2920; J3370; J3480; J7030

== ENCOUNTER 2016-08-31 12:17 | Inpatient (IN) | payer MEDICARE ==
[~2016-08-31] VITALS: Ht 188 cm; Wt 61.0 kg
[~2016-08-31 12:17] MED LIST: ACET325T33 GTB; AMLO-218 PO; ASCO500C7 GTB; DIPH25TA68 GTB; ENOX40DI14 SC; FAMO-18 PO; FERR220S2 GTB; METO-429 PO; TYL500 GTB
[2016-08-31] MEDS ORDERED: SOD CHLORIDE 0.9% 500 ML IV STA (12:23)
[2016-08-31] MEDS ORDERED: PANTOPRAZOLE IV 80 MG in SOD CHLORIDE 0.9% 100 ML IVPB STA (12:23)
[2016-08-31] MEDS ORDERED: PANTOPRAZOLE 40 MG INJ IV STA (12:23)
[2016-08-31] MEDS ORDERED: ONDANSETRON INJ 8 MG in DEXTROSE 5% 50 ML IVPB STA (12:23)
[2016-08-31] MEDS ORDERED: FAMOTIDINE 20 MG INJ IV STA (12:23)
[2016-08-31 13:10] LABS: AADO2 Arterial 158.4 mmHg (7.0-24.0); Allen Test ACCEPTAB; Arterial COHb 0.4 % (0.0-3.0); Arterial Fraction of Oxyhgb 96.3 % (93.0-99.0); Arterial HCO3 29.3 mmol/L (22.0-26.0); Arterial MetHb 0.3 % (0.0-1.5); Arterial Total Hemglobin 13.8 g/dl (12.0-18.0); MODE VENT - AC
[2016-08-31 13:11] LABS: HEMATOCRIT 37.1 % (42.0-52.0); HEMOGLOBIN 11.9 g/dl (14.0-18.0); MEAN CORPUSCULAR HEMOGLOBIN 26.8 pg (29.0-33.0); MEAN CORPUSCULAR HGB CONC 32.1 g/dl (32.0-37.0); MEAN CORPUSCULAR VOLUME 83.5 fl (82.0-101.0); MEAN PLATELET VOLUME 12.6 fl (7.4-10.4); PLATELET COUNT 276 10^3/UL (140-440); RED BLOOD COUNT 4.44 10^6/ul (4.70-6.10); RED CELL DISTRIBUTION WIDTH 20.9 % (11.5-14.5); WHITE BLOOD COUNT 8.1 10^3/ul (4.8-10.8)
[2016-08-31 13:27] LABS: INR 1.16; POTASSIUM 4.8 mmol/L (3.5-5.1); PROTIME 14.9 Sec (12.2-14.2); PT RATIO 1.2
[2016-08-31 13:28] LABS: PARTIAL THROMBOPLASTIN TIME 39.9 Sec (25.0-35.0)
[2016-08-31 13:30] LABS: ALBUMIN/GLOBULIN RATIO 0.88; BILIRUBIN,INDIRECT 0.1 mg/dl (0-1.1); BILIRUBIN,TOTAL 0.1 mg/dl (0.2-1.3); CALCIUM 10.6 mg/dl (8.4-10.2); CREATININE 1.92 mg/dl (0.61-1.24); TOTAL PROTEIN 8.5 g/dl (6.1-8.1)
[2016-08-31 13:35] LABS: CONDITION 1; LH ANALYZER COMMENTS 1; SUSPECT 1; UNCORRECTED WBC 9.5 10^3/ul (4.8-10.8)
--- NOTE | 2016-08-31 13:39 | RADRPT ---
PROCEDURE: XR Chest. CLINICAL INDICATION: Upper GI bleeding TECHNIQUE: Chest AP portable. COMPARISON: 08/06/2016 FINDINGS: Tracheostomy tube in place. The mediastinal structures are unremarkable. There is calcification of the thoracic aorta (consisten t with atherosclerosis). The heart is normal in size and configuration. The pulmonary vascularity is normal. There is moderate hyperinflation. There is mild to moderate bilateral interstitial disease. There is no change in the superimpose RLL and LLL patchy consolidations (query chronic process). T here is a small left pleural effusion. There is no change in the left rib fractures. IMPRESSION: Calcification of the thoracic aorta (consistent with atherosclerosis) Moderate hyperinflation Mild to moderate bilateral interstitial disease No change in the RLL and LLL patchy consolidations (query chronic process) .David Cueva MD, Date Time Electronically viewed and signed by .David Cueva MD, on 08/31/2016 13:39 .B/
[2016-08-31 13:41] LABS: TROPONIN-I 0.016 ng/ml (0.00-0.12)
[2016-08-31 13:44] LABS: BASOPHIL # 0.1 10^3/ul (0.0-0.1); LYMPHOCYTES # 1.2 10^3/ul (0.8-2.9); MONOCYTE # 0.2 10^3/ul (0.3-0.9); NEUTROPHIL # 5.1 10^3/ul (1.6-7.5)
[2016-08-31] MEDS ORDERED: ONDANSETRON 4 MG INJ IV PRN (15:00)
--- NOTE | 2016-08-31 16:04 | ERA ---
ER Documentation Chief Complaint Date/Time DATE: 08/31/16 TIME: 15:48 Chief Complaint vomiting blood and blood in gtube HPI This is a 71-year-old male presents to the emergency department brought in by EMS from [facility]. The patient has a tracheostomy secondary to a traumatic brain injury. Nursing staff indicated that the patient had an episode of coffee-ground emesis prior to arrival. The patient has a G-tube and there was also coffee-ground emesis present within the G-tube. There is been no documentation of fever shaking or chills. The patient did develop an episode of respiratory distress after the coffee-ground emesis and required the tracheostomy tube to be hooked up to a ventilator with resolution of the hypoxia. ROS All systems reviewed and are negative except as per history of present illness. Medications Home Meds Reported Medications Metoprolol Tartrate* (Lopressor*) 50 Mg Tab, 50 MG PO TID, #60 TAB 07/24/16 Famotidine* (Pepcid*) 20 Mg Tablet, 20 MG PO BID, #60 TAB 07/24/16 Enoxaparin Sodium* (Lovenox*) 40 Mg/0.4 Ml Syringe, 40 MG SC DAILY, SYR 07/24/16 Amlodipine Besylate* (Norvasc*) 10 Mg Tablet, 10 MG PO DAILY, TAB HOLD FOR SBP BELOW 110 HR BELOW 60 07/24/16 Diphenhydramine Hcl (Benadryl Allergy) 25 Mg Tablet, 25 MG GTB Q6 Y for ITCHING , TAB 07/24/16 Ferrous Sulfate (Ferrous Sulfate) 220 Mg/5 Ml Solution, 220 MG GTB DAILY 07/24/16 Ascorbic Acid* (Vitamin C*) 500 Mg Capsule.sa, 500 MG GTB DAILY, CAP 07/24/16 Acetaminophen* (Tylenol*) 500 Mg Tab, 1000 MG GTB Q4H Y for PAIN 4-6/10, TAB 07/24/16 Acetaminophen* (Tylenol*) 325 Mg Tablet, 650 MG GTB Q4H for MILD PAIN LEVEL 1-3 , TAB FOR FEVER 100 & ABOVE, FOR TRACH TUBE CHANGE 07/24/16 Allergies Allergies: Coded Allergies: No Known Allergy (Unverified , 08/31/16) PMhx/Soc History of Surgery: No Anesthesia Reaction: No Hx Neurological Disorder: Yes (CEPHALOPATHY) Hx Respiratory Disorders: Yes (COPD, TRACHEOSTOMY) Hx Cardiac Disorders: Yes (HTN) Hx Psychiatric Problems: No Hx Miscellaneous Medical Probl: No Hx Alcohol Use: No Hx Substance Use: No Hx Tobacco Use: No Physical Exam Vitals Vital Signs Date Time Temp Pulse Resp B/P Pulse Ox O2 Delivery O2 Flow Rate FiO2 08/31/16 12:40 98.3 100 19 117/93 98 Mechanical Ventilator 08/31/16 12:40 98.4 125 20 113/90 98 08/31/16 12:30 125 30 98 40 Physical Exam Constitutional:Well-developed. Cachectic HEENT:Normocephalic. Atraumatic.Pupils were equal round reactive to light. Dry mucous membranes.No tonsillar exudates. Neck: No nuchal rigidity. No lymphadenopathy. No posterior cervical spine tenderness or step-offs. Tracheostomy site was clean dry and intact with no surrounding erythema. Respiratory: Not using accessory muscles of respiration.Lungs were clear to auscultation bilaterally. No rhonchi. No rales. No wheezing. Cardiovascular: Tachycardic with regular rhythm.No murmurs. No rubs were appreciated.S1, S2 normal. Distal pulses are palpable 2+ bilaterally. GI: Abdomen was soft. Nontender. Non Distended. No pulsatile abdominal masses or bruits. No rebound. No guarding. Bowel sounds were present and normal. Colostomy bag was present in the left lower quadrant with no feces present in the bag. PEG tube was in place with no surrounding erythema warmth tenderness or fluctuation with coffee ground substance present in the tubing Muscle skeletal: Muscle atrophy. Flexion of the feet with no active movement of the upper or lower extremities. Skin: No petechia, no purpura. No lesions on the palms or the soles of the feet. No maculopapular rash. NEURO: Patient is bedbound. Aphasic. Does not withdraw to pain. Result Diagram: 08/31/16 1240 08/31/16 1240 Results 24 hrs Laboratory Tests Test 08/31/16 12:23 08/31/16 12:40 Arterial Blood HCO3 29.3mmol/L Arterial Blood Base Excess 6.0mmol/L Arterial Blood Oxygen Saturation 97.0mmHG Mane Test ACCEPTAB Arterial Blood Gas Puncture Site Left Radial Arterial Blood Carboxyhemoglobin 0.4% Arterial Blood Date Drawn 08/31/2016 1:00:54 PM Arterial Blood Methemoglobin 0.3% Arterial Blood pCO2 (Temp correct) 37.6mmhg Arterial Blood pH (Temp corrected) 7.509 Arterial Blood pO2 (Temp corrected) 83.6mmHG Blood Gas A-a O2 Differential 158.4mmHg Blood Gas Actual Respiration Rate 30 Blood Gas Low PEEP Setting 5.0cmH2O Blood Gas Modality VENT - AC Blood Gas Notified Time 08/31/2016 1:09:48 PM Blood Gas Notified Whom JLD Blood Gas Respiration Rate 16.0 Blood Gas Specimen Source Blood arterial Blood Gas Temperature 37.0C Blood Gas Tidal Volume 500.0mL FiO2 40.0% Oxyhemoglobin Percent 96.3% Total Hemoglobin 13.8g/dl Activated Partial Thromboplast Time 39.9Sec Alanine Aminotransferase (ALT/SGPT) 28IU/L Albumin 4.0g/dl Albumin/Globulin Ratio 0.88 Alkaline Phosphatase 91IU/L Amylase Level 98U/L Anion Gap 22 Aspartate Amino Transf (AST/SGOT) 34IU/L Band Neutrophils % 18.0% Basophils # 0.110^3/ul Basophils % 1.0% Blood Morphology Comment Blood Urea Nitrogen 57mg/dl Calcium Level 10.6mg/dl Carbon Dioxide Level 30mmol/L Chloride Level 97mmol/L Creatinine 1.92mg/dl Differential Comment MANUAL DIFF Direct Bilirubin 0.00mg/dl Eosinophils # 10^3/ul Eosinophils % % Globulin 4.50g/dl Glucose Level 158mg/dl Hematocrit 37.1% Hemoglobin 11.9g/dl INR International Normalized Ratio 1.16 Indirect Bilirubin 0.1mg/dl Large Platelets 1+ Lipase 31U/L Lymphocytes # 1.210^3/ul Lymphocytes % 15.0% Mean Corpuscular Hemoglobin 26.8pg Mean Corpuscular Hemoglobin Concent 32.1g/dl Mean Corpuscular Volume 83.5fl Mean Platelet Volume 12.6fl Monocytes # 0.210^3/ul Monocytes % 3.0% Neutrophils # 5.110^3/ul Neutrophils % 63.0% Nucleated Red Blood Cells # 10^3/ul Nucleated Red Blood Cells % 2.0/100WBC Platelet Count 98301^3/UL Potassium Level 4.8mmol/L Prothrombin Time 14.9Sec Prothrombin Time Ratio 1.2 Red Blood Count 4.4410^6/ul Red Cell Distribution Width 20.9% Sodium Level 144mmol/L Total Bilirubin 0.1mg/dl Total Protein 8.5g/dl Troponin I 0.016ng/ml White Blood Count 8.110^3/ul Current Medications Medications (Trade) Dose Ordered Sig/Brandi Route PRN Reason Start Time Stop Time Status Last Admin Dose Admin Sodium Chloride (NS) 500 ml @ 500 mls/hr Q1H STAT IV 08/31/16 12:23 08/31/16 13:22 DC 08/31/16 13:14 Famotidine (Pepcid Iv) 20 mg ONCE STAT IV 08/31/16 12:23 08/31/16 12:25 DC 08/31/16 13:15 Pantoprazole 40 mg 40 mg ONCE STAT IV 08/31/16 12:23 08/31/16 12:25 DC 08/31/16 13:15 Pantoprazole 80 mg/Sodium Chloride 100 ml @ 400 mls/hr ONCE STAT IVPB 08/31/16 12:23 08/31/16 12:37 DC 08/31/16 13:56 Ondansetron HCl/ Dextrose (Zofran Inj/D5W) 54 ml @ 200 mls/hr ONCE STAT IVPB 08/31/16 12:23 08/31/16 12:39 DC 08/31/16 13:56 Ondansetron HCl 4 mg 4 mg ER BRIDGE PRN IV NAUSEA AND/OR VOMITING 08/31/16 15:00 09/01/16 14:59 Piperacillin Sod/ Tazobactam Sod 100 ml @ 200 mls/hr ONCE STAT IVPB 08/31/16 16:45 08/31/16 17:14 DC Piperacillin Sod/ Tazobactam Sod (Zosyn 3.375gm/ 100 ml (Pmx)) 100 ml @ 200 mls/hr ONCE ONCE IVPB 08/31/16 17:00 08/31/16 17:29 DC Procedures/MDM The patient presented to the emergency department with a presentation of upper gastrointestinal bleeding. My differential diagnosis included but was not limited to peptic ulcer disease, gastric or esophageal erosions, gastritis, esophageal varices, Sandra-Pereira tear, tumor or arteriovenous malformations. IV access was established by nursing staff. The patient received IV Protonix intravenous Zofran and a liter bolus of 0.9 normal saline. I obtained a chest radiograph which was reviewed by myself the radiologist and indicated the following: Calcification of the thoracic aorta (consistent with atherosclerosis) Moderate hyperinflation Mild to moderate bilateral interstitial disease No change in the RLL and LLL patchy consolidations (query chronic process) I did obtain blood cultures and urine culture and given that the patient is high risk of aspiration pneumonia I did place the patient on broad-spectrum antibiotics which included vancomycin and IV Zosyn. The patient will be admitted in serious condition to his primary care physician Dr. Mayra chauhan to the telemetry floor with an anticipated stay of greater than 2 midnights. I also spoke with Dr. Pryor who will be consulted on the patient from a GI perspective. 12 Lead EKG tracing ordered and reviewed by myself showed: Sinus tachycardia 124 bpm and no arrhythmia. SC interval normal. QRS duration normal. No ST segment elevation No ST segment depression. The patient had a significant amount of artifact with T-wave inversion in the lateral leads V5 V6. Critical Care: Time: 45 minutes Treatments/Evaluations: Close monitoring and treatment of unstable vital signs, cardiorespiratory, and neurologic status, while maintaining tight balance of fluid, respiratory, and cardiac interventions. Time does not include performing any of the above billable procedures. Departure Diagnosis: Primary Impression: Acute upper gastrointestinal bleeding Condition: Serious DEEJAY SUMNER Aug 31, 2016 16:04
[2016-08-31] MEDS ORDERED: PIPER-TAZO 3.375 GM IV (PMX) 100 ML IVPB STA (16:45)
[2016-08-31] MEDS ORDERED: PIPER-TAZO 3.375 GM IV (PMX) 100 ML IVPB ONE (17:00)
--- NOTE | 2016-08-31 17:51 | HP ---
DATE OF ADMISSION: 08/31/2016 CHIEF COMPLAINT: Emesis and hematemesis. HISTORY OF PRESENT ILLNESS: The patient is a 71-year-old gentleman with history of chronic encephal opathy due to subdural hemorrhage status post tracheostomy with ventilator dependent, bed bound stat us, dysphagia with gastrostomy tube, colostomy and chronic Chaudhari catheter. The patient with history of urinary tract infection and healthcare-acquired pneumonia in the past and history of COPD. The patient was recuperating at [facility] nursing [facility] and patient noted to have nausea and vomiting with notion of hematemesis. The patient was brought to the emergency room and continued to have bilious emesis. The patient's hemoglobin is 11.9 on adm ission, hematocrit 37.1. The patient was given IV fluids and Zofran and Protonix. The patient will be admitted for further evaluation and management to medical/surgical floor. Patient was tachycard ic on admission. No fever, no diarrhea. Patient also had a sacral decubitus ulcer stage II. PAST MEDICAL HISTORY: Per HPI. PAST SURGICAL HISTORY: Status post tracheostomy, status post left lower quadrant colostomy and stat us post G-tube placement. FAMILY HISTORY: Noncontributory. SOCIAL HISTORY: Patient is a resident of senior living [facility]. Unable to obtain prior history due to patient's condition. ALLERGIES: NO KNOWN ALLERGIES. REVIEW OF SYSTEMS: A 12-point review of systems is negative unless what mentioned in the HPI. PHYSICAL EXAMINATION: GENERAL: Well-developed, cachectic gentleman currently obtunded on ventilator support via tracheos cheo.. HEENT: Pupils equal, round, reactive to light and accommodation. NECK: Supple, no cervical lymphadenopathy, no thyromegaly. Tracheostomy the base of the neck with small amount of secretions. LUNGS: Rhonchi bilaterally, slightly diminished at the bases. CARDIOVASCULAR: Normal S1, S2. No murmurs, gallops, clicks, rubs noted. ABDOMEN: Flat, soft, nondistended, nontender. Bowel sounds hypoactive. The patient has a G-tube. The patient also had a healed stoma probably most likely from previous G-tube placement. Patient h as left lower quadrant colostomy with pink, moist stoma. GENITOURINARY: The patient also has a Chaudhari catheter. EXTREMITIES: No edema, clubbing, cyanosis. Pulses equal bilaterally 2+. Lower extremities contrac bhavin with muscle wasting. SKIN: There is no rash, petechiae noted. The patient has a sacral decubitus ulcer stage II. See n eliseing notes for further description. NEUROLOGIC: Patient is lethargic. PSYCHIATRIC: Does not follow any commands. LABORATORY DATA: On admission, white blood cells 8.1, hemoglobin 11.9, hematocrit 37.1, platelets 2 76. Chemistry: Sodium is 144, potassium 4.8, chloride 97, carbon dioxide 30, anion gap 22, BUN is 57, creatinine 1.92, glucose 158, calcium 10.6, AST 38, ALT 28, alkaline phosphatase 91. Amylase is 98. Lipase is 31. PT is 14.9, INR 1.16. APTT 39.9. IMAGING: Chest x-ray with calcifications of thoracic aorta, moderate hyperinflation, mild to modera te bilateral interstitial disease, no change in the right lower lobe and left lower lobe patchy cons olidations. ASSESSMENT AND PLAN: 1. Intractable nausea and vomiting. We will continue Zofran p.r.n. for nausea. Continue Protonix. Dr. Pryor will be following the patient in gastroenterology consultation. Continue IV fluids. 2. Dehydration secondary to vomiting. 3. Hematemesis reported from the detention. Continue to monitor hemoglobin and hematocrit, rob sfuse p.r.n. 4. 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 5. Ventilator-dependent respiratory failure with tracheostomy last May. Dr. Saenz to follow the patient from pulmonology standpoint. Continue bronchodilators and pulmonary toilet. 5. Dysphagia with G-tube. Will hold G tube feeding, right now due to emesis. 6. Chronic obstructive pulmonary disease. 7. Chronic Chaudhari catheter. 8. Colostomy 9. Hypertension. 10. Bedbound status. We will continue sequential compression device for deep venous thrombosis pro phylaxis and Protonix for peptic ulcer disease prophylaxis. 11. Septic acute kidney injury. Continue to monitor BUN and creatinine. Continue IV fluids. MEDICATIONS ON ADMISSION: 1. Tylenol. 2. Norvasc. 3. Ascorbic acid. 4. Lovenox. 5. Pepcid. 6. Metoprolol. 7. Benadryl and ferrous sulfate. Further recommendations based on clinical course. Plan of care discussed with Dr. Akbar. Dictated By: AMYGeorge AKBAR MD, SR/MACK Conf#: [id number] DID#: [id number]
[2016-08-31] MEDS ORDERED: VANCOMYCIN 1 GM (PMX) 250 ML IVPB SCH (18:30)
[2016-08-31 21:00] VITALS: TEMP 98
[2016-08-31 21:45] VITALS: RESP 21
[2016-08-31 21:47] VITALS: PULSE 111
[2016-08-31 22:10] VITALS: BP 131/88; RESP 27
[2016-08-31 22:28] VITALS: Ht 188 cm; Wt 61.0 kg
[2016-08-31 23:10] VITALS: RESP 22
[2016-08-31] MEDS: SOD CHLORIDE 0.45% 1,000 ML IV SCH (23:35)
[2016-08-31 23:58] VITALS: BP 119/69; RESP 23
[2016-09-01] VITALS (24 sets, daily range): BP systolic 114–142; BP diastolic 69–79; PULSE 105–120; RESP 17–28
[2016-09-01] MEDS: PANTOPRAZOLE 40 MG INJ IV SCH ×2 (05:48→17:46)
[2016-09-01] MEDS: SOD CHLORIDE 0.45% 1,000 ML IV SCH ×3 (08:19→22:51)
[2016-09-01 10:06] LABS: ALBUMIN 3.4 g/dl (3.3-4.9)
[2016-09-01 10:07] LABS: POTASSIUM 4.7 mmol/L (3.5-5.1)
[2016-09-01 10:09] LABS: BILIRUBIN,INDIRECT 0.1 mg/dl (0-1.1); BILIRUBIN,TOTAL 0.1 mg/dl (0.2-1.3); CREATININE 1.68 mg/dl (0.61-1.24)
[2016-09-01 10:10] LABS: ALBUMIN/GLOBULIN RATIO 0.85; CALCIUM 9.2 mg/dl (8.4-10.2); TOTAL PROTEIN 7.4 g/dl (6.1-8.1)
[2016-09-01 10:28] LABS: ADD UMIC YES; URINE BILIRUBIN (Dip) NEGATIVE (NEGATIVE); URINE BLOOD (Dip) 2+ (NEGATIVE); URINE COLOR YELLOW (YELLOW); URINE GLUCOSE (Dip) NEGATIVE (NEGATIVE); URINE KETONES (Dip) TRACE (NEGATIVE); URINE LEUKOCYTE ESTERASE (Dip) 2+ (NEGATIVE); URINE NITRITE (Dip) POSITIVE (NEGATIVE); URINE TOTAL PROTEIN (Dip) 2+ (NEGATIVE); URINE UROBILINOGEN (Dip) 0.2 E.U./dL (0.1-1.0)
[2016-09-01 10:37] LABS: THYROID STIMULATING HORMONE 0.795 MIU/L (0.465-4.680)
[2016-09-01 10:43] LABS: BACTERIA,URINE MODERATE; SQUAMOUS EPITHELIAL CELL,UR FEW
[2016-09-01 11:10] LABS: HEMATOCRIT 30.5 % (42.0-52.0); HEMOGLOBIN 9.9 g/dl (14.0-18.0); MEAN CORPUSCULAR HEMOGLOBIN 26.9 pg (29.0-33.0); MEAN CORPUSCULAR HGB CONC 32.5 g/dl (32.0-37.0); MEAN CORPUSCULAR VOLUME 82.7 fl (82.0-101.0); MEAN PLATELET VOLUME 12.7 fl (7.4-10.4); PLATELET COUNT 261 10^3/UL (140-440); RED BLOOD COUNT 3.69 10^6/ul (4.70-6.10); RED CELL DISTRIBUTION WIDTH 20.2 % (11.5-14.5); UNCORRECTED WBC 15.7 10^3/ul (4.8-10.8); WHITE BLOOD COUNT 15.7 10^3/ul (4.8-10.8)
[2016-09-01 11:13] LABS: CONDITION 1; LH ANALYZER COMMENTS 1; SUSPECT 1
--- NOTE | 2016-09-01 12:09 | CONS ---
Date/Time of Note Date/Time of Note DATE: 09/01/16 TIME: 12:03 Assessment/Plan Assessment/Plan Additional Assessment/Plan Assessment and recommendations; next 1. Patient admitted for vomiting with intravascular volume depletion after being hydrated the patient's serum creatinine is improving. Next 2. Chest x-ray was reviewed from yesterday which is essentially clear. 3. History of COPD. 4. Advanced dementia. 5. There is no evidence of any bowel obstruction. Next Continue current treatment, ventilator settings, IV hydration, IV antibiotics. Consultation Date/Type/Reason Admit Date/Time Aug 31, 2016 at 14:59 Date of Consultation: Sep 01, 2016 Type of Consultation: Pulmonary/critical care. Reason for Consultation Patient with a history of chronic respiratory failure, ventilator dependent. Admitted for nausea, vomiting. History of presenting complaint; patient is a 71-year-old white male who was a resident of shelter locally patient was transferred over to [facility] yesterday with complaints of vomiting. It was not been controlled over the medications. Upon further evaluation here the patient was found to have intravascular volume depletion and prerenal azotemia. Patient has been started on broad-spectrum antibiotic coverage and vomiting has been controlled by Zofran without any further episodes. Because of history of severe anoxic encephalopathy patient is completely unresponsive. History was obtained from medical records. Next Past medical history; next 1. COPD 2. Tracheostomy 3. PEG tube placement 4. Colostomy 5. History of subdural hematoma 6. History of Chaudhari catheter placement 7. Renal status is currently unavailable but based upon lab profile it appears the patient has had acute renal injury due to volume depletion with interval improvement. Medications; were reviewed. Allergies; KNDA Social history; currently not available Family history; not available Occupational history; currently not available as well Review of systems; not able to be obtained due to extremely poor mental status. General examination; elderly male, on mechanical ventilation via tracheostomy, currently in no distress. Unresponsive. Social History Smoking Status: Never smoker Exam/Review of Systems Vital Signs Vitals Vital Signs Date Time Temp Pulse Resp B/P Pulse Ox O2 Delivery O2 Flow Rate FiO2 09/01/16 11:26 108 21 98 40 09/01/16 07:57 99.2 127/73 08/31/16 21:00 Mechanical Ventilator Intake and Output 08/31/16 08/31/16 09/01/16 15:00 23:00 07:00 Intake Total 950 ml Output Total 480 ml Balance 470 ml Exam H EENT examination; supple neck, patient is edentulous. Pupils are midsize reactive to light bilaterally and equally. No neck masses. No thyromegaly. Tracheostomy in place. No lymphadenopathy. Chest examination; diminished but clear breath sounds bilaterally. S1-S2 audible. No murmurs. Regular rate and rhythm. Abdomen examination; soft, colostomy in place, bowel sounds are audible. Abdomen is nondistended. No organomegaly felt. There is a Chaudhari catheter in place. Next Extremity examination; no peripheral edema. [employer] examination; patient remains completely unresponsive. Ventilator settings; assist control of 14, tidal volume 500, PEEP of 5, 40% FiO2. Results Result Diagram: 09/01/1640 09/01/16 0940 Results 24 hrs Laboratory Tests Test 08/31/16 12:23 08/31/16 12:40 09/01/16 06:00 09/01/16 09:40 Arterial Blood HCO3 29.3 H Arterial Blood Base Excess 6.0 H Arterial Blood Oxygen Saturation 97.0 Mane Test ACCEPTAB Arterial Blood Gas Puncture Site Left Radial Arterial Blood Carboxyhemoglobin 0.4 Arterial Blood Date Drawn 08/31/2016 1:00:54 PM Arterial Blood Methemoglobin 0.3 Arterial Blood pCO2 (Temp correct) 37.6 Arterial Blood pH (Temp corrected) 7.509 H Arterial Blood pO2 (Temp corrected) 83.6 Blood Gas A-a O2 Differential 158.4 H Blood Gas Actual Respiration Rate 30 Blood Gas Low PEEP Setting 5.0 Blood Gas Modality VENT - AC Blood Gas Notified Time 08/31/2016 1:09:48 PM Blood Gas Notified Whom JLD Blood Gas Respiration Rate 16.0 Blood Gas Specimen Source Blood arterial Blood Gas Temperature 37.0 Blood Gas Tidal Volume 500.0 FiO2 40.0 Oxyhemoglobin Percent 96.3 Total Hemoglobin 13.8 Activated Partial Thromboplast Time 39.9 H Alanine Aminotransferase (ALT/SGPT) 28 25 Albumin 4.0 3.4 Albumin/Globulin Ratio 0.88 0.85 Alkaline Phosphatase 91 77 Amylase Level 98 Anion Gap 22 H 18 H Aspartate Amino Transf (AST/SGOT) 34 26 Band Neutrophils % 18.0 H Basophils # 0.1 Basophils % 1.0 Blood Morphology Comment Blood Urea Nitrogen 57 H 67 H Calcium Level 10.6 H 9.2 Carbon Dioxide Level 30 29 Chloride Level 97 99 Creatinine 1.92 H 1.68 H Differential Comment MANUAL DIFF Direct Bilirubin 0.00 0.00 Eosinophils # Eosinophils % Globulin 4.50 H 4.00 H Glucose Level 158 120 Hematocrit 37.1 L 30.5 L Hemoglobin 11.9 L 9.9 L INR International Normalized Ratio 1.16 Indirect Bilirubin 0.1 0.1 Large Platelets 1+ Lipase 31 Lymphocytes # 1.2 Lymphocytes % 15.0 Mean Corpuscular Hemoglobin 26.8 L 26.9 L Mean Corpuscular Hemoglobin Concent 32.1 32.5 Mean Corpuscular Volume 83.5 82.7 Mean Platelet Volume 12.6 H 12.7 H Monocytes # 0.2 L Monocytes % 3.0 Neutrophils # 5.1 Neutrophils % 63.0 Nucleated Red Blood Cells # Nucleated Red Blood Cells % 2.0 H Platelet Count 276 261 Potassium Level 4.8 4.7 Prothrombin Time 14.9 H Prothrombin Time Ratio 1.2 Red Blood Count 4.44 L 3.69 L Red Cell Distribution Width 20.9 H 20.2 H Sodium Level 144 141 Total Bilirubin 0.1 L 0.1 L Total Protein 8.5 H 7.4 # Troponin I 0.016 White Blood Count 8.1 # 15.7 #H Urine Bacteria MODERATE Urine Bilirubin NEGATIVE Urine Calcium Oxalate Crystals FEW Urine Clarity CLOUDY H Urine Color YELLOW Urine Glucose NEGATIVE Urine Hemoglobin 2+ H Urine Ketones TRACE Urine Leukocyte Esterase 2+ H Urine Microscopic RBC 2-5 Urine Microscopic WBC 10-25 Urine Nitrite POSITIVE H Urine Specific [place] 1.025 Urine Squamous Epithelial Cells FEW Urine Total Protein 2+ H Urine Urobilinogen 0.2 E.U./dL Urine pH 5.5 Thyroid Stimulating Hormone (TSH) 0.795 Medications Medications Current Medications Pantoprazole 40 mg 40 mg BID@06,18 IV Last administered on 09/01/16 05:48; Admin Dose 40 MG; Start 09/01/16 at 06:00 Sodium Chloride (1/2 NS) 1,000 ml @ 100 mls/hr Q10H IV Last administered on 08:19; Admin Dose 100 MLS/HR; Start 08/31/16 at 22:30 SHAAN BUTT Sep 01, 2016 12:09
[2016-09-01 12:32] LABS: LYMPHOCYTES # 2.8 10^3/ul (0.8-2.9); NEUTROPHIL # 8.8 10^3/ul (1.6-7.5)
[2016-09-01 12:33] LABS: ANISOCYTOSIS 2+; HYPOCHROMASIA 2+
--- NOTE | 2016-09-01 13:04 | PN ---
Date/Time of Note Date/Time of Note DATE: 09/01/16 TIME: 12:52 Assessment/Plan VTE Prophylaxis VTE Prophylaxis Intervention: SCD's Lines/Catheters IV Catheter Type (from Nrs): Peripheral IV Urinary Cath still in place: Yes Reason Cath still needed: urinary retention Assessment/Plan Chief Complaint/Hosp Course ASSESSMENT AND PLAN: 1. Intractable nausea and vomiting. Continue Zofran p.r.n. for nausea. Continue Protonix. Dr. Pryor will be following the patient in gastroenterology consultation. Continue IV fluids. 2. Dehydration secondary to vomiting. 3. Hematemesis reported from the [facility]. Continue to monitor hemoglobin and hematocrit, transfuse p.r.n. 4. 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 5. Ventilator-dependent respiratory failure with tracheostomy. Dr. Morrison is following from pulmonology standpoint. Continue bronchodilators and pulmonary toilet. 5. Dysphagia with G-tube. 6. Chronic obstructive pulmonary disease. 7. Chronic Chaudhari catheter. 8. Colostomy 9. Hypertension. 10. Bedbound status. 11. Acute kidney injury. Continue to monitor BUN and creatinine. Continue IV fluids. 12 UTI per UA, urine cx. Continue sequential compression device for deep venous thrombosis prophylaxis and Protonix for peptic ulcer disease prophylaxis. Further recommendations based on clinical course. Plan of care discussed with Dr. Meeks. Problems: Subjective 24 Hr Interval Summary Free Text/Dictation No nausea and vomiting reported per RN today, patient has NG tube to low suctioning. Patient with a low-grade fever and increased leukocytosis. Will start patient on Zosyn for possible aspiration pneumonitis, monitor chest x-ray. Exam/Review of Systems Vital Signs Vitals Vital Signs Date Time Temp Pulse Resp B/P Pulse Ox O2 Delivery O2 Flow Rate FiO2 09/01/16 12:28 113 09/01/16 11:58 98.9 18 132/79 96 09/01/16 11:26 40 08/31/16 21:00 Mechanical Ventilator Intake and Output 08/31/16 08/31/16 09/01/16 15:00 23:00 07:00 Intake Total 950 ml Output Total 480 ml Balance 470 ml Exam GENERAL: Well-developed, cachectic gentleman currently obtunded on ventilator support via tracheostomy. HEENT: Pupils equal, round, reactive to light and accommodation. NECK: Supple, no cervical lymphadenopathy, no thyromegaly. Tracheostomy the base of the neck with small amount of secretions. LUNGS: Rhonchi bilaterally, slightly diminished at the bases. CARDIOVASCULAR: Normal S1, S2. No murmurs, gallops, clicks, rubs noted. ABDOMEN: Flat, soft, nondistended, nontender. Bowel sounds hypoactive. The patient has a G-tube. The patient also had a healed stoma probably most likely from previous G-tube placement. Patient has left lower quadrant colostomy with pink, moist stoma. GENITOURINARY: The patient also has a Chaudhari catheter. EXTREMITIES: No edema, clubbing, cyanosis. Pulses equal bilaterally 2+. Lower extremities contracted. SKIN: There is no rash, petechiae noted. The patient has a sacral decubitus ulcer stage II. See nursing notes for further description. NEUROLOGIC: Patient does not follow any commands. Results Result Diagram: 09/01/16 0940 09/01/16 0940 Results 24 hrs Laboratory Tests Test 09/01/16 06:00 09/01/16 09:40 Urine Bacteria MODERATE Urine Bilirubin NEGATIVE Urine Calcium Oxalate Crystals FEW Urine Clarity CLOUDY H Urine Color YELLOW Urine Glucose NEGATIVE Urine Hemoglobin 2+ H Urine Ketones TRACE Urine Leukocyte Esterase 2+ H Urine Microscopic RBC 2-5 Urine Microscopic WBC 10-25 Urine Nitrite POSITIVE H Urine Specific [place] 1.025 Urine Squamous Epithelial Cells FEW Urine Total Protein 2+ H Urine Urobilinogen 0.2 E.U./dL Urine pH 5.5 Alanine Aminotransferase (ALT/SGPT) 25 Albumin 3.4 Albumin/Globulin Ratio 0.85 Alkaline Phosphatase 77 Anion Gap 18 H Anisocytosis 2+ Aspartate Amino Transf (AST/SGOT) 26 Band Neutrophils % 13.0 H Blood Morphology Comment Blood Urea Nitrogen 67 H Calcium Level 9.2 Carbon Dioxide Level 29 Chloride Level 99 Creatinine 1.68 H Direct Bilirubin 0.00 Globulin 4.00 H Glucose Level 120 Hematocrit 30.5 L Hemoglobin 9.9 L Hypochromasia 2+ Indirect Bilirubin 0.1 Lymphocytes # 2.8 Lymphocytes % 18.0 Mean Corpuscular Hemoglobin 26.9 L Mean Corpuscular Hemoglobin Concent 32.5 Mean Corpuscular Volume 82.7 Mean Platelet Volume 12.7 H Monocytes # 2.0 H Monocytes % 13.0 H Neutrophils # 8.8 H Neutrophils % 56.0 Platelet Count 261 Potassium Level 4.7 Red Blood Count 3.69 L Red Cell Distribution Width 20.2 H Sodium Level 141 Thyroid Stimulating Hormone (TSH) 0.795 Total Bilirubin 0.1 L Total Protein 7.4 # White Blood Count 15.7 #H Medications Medications Current Medications Pantoprazole 40 mg 40 mg BID@06,18 IV Last administered on 09/01/16 05:48; Admin Dose 40 MG; Start 09/01/16 at 06:00 Sodium Chloride (1/2 NS) 1,000 ml @ 100 mls/hr Q10H IV Last administered on 08:19; Admin Dose 100 MLS/HR; Start 08/31/16 at 22:30 AMY MORAN Sep 01, 2016 13:02
[2016-09-01] MEDS: PIPER-TAZO 2.25 GM (PMX) 50 ML IVPB SCH ×2 (14:36→22:50)
[2016-09-01] MEDS ORDERED: PHENYLephrine (100 MCG/ML) 5ML SYG ONE (19:17)
[2016-09-01] MEDS ORDERED: PROPOFOL 20 ML ONE (19:17)
[2016-09-01] MEDS ORDERED: FENTAnyl 50 MCG/ML VIAL ONE (19:17)
[2016-09-01] MEDS ORDERED: EPHEDrine SULFATE 50 MG/5 ML SYG ONE (19:17)
[2016-09-01] MEDS: PANTOPRAZOLE IV 80 MG in SOD CHLORIDE 0.9% 100 ML IV SCH (22:50)
[2016-09-02] VITALS (24 sets, daily range): BP systolic 108–136; BP diastolic 57–72; PULSE 100–122; RESP 1–28
--- NOTE | 2016-09-02 03:04 | GILP ---
DATE OF PROCEDURE: PROCEDURE: Esophagogastroduodenoscopy. PREOPERATIVE DIAGNOSIS: Patient presenting with history of vomiting blood and significant anemia. Rule out gastrostomy site ulcer, rule out peptic ulcer disease, esophagitis. POSTOPERATIVE DIAGNOSIS: A large ulcer noted at the site of the gastrostomy, and the G-tube is almo st out of the stomach; it is embedded in the gastric wall. Because of this, the gastrostomy tube wa s removed by me. DESCRIPTION OF PROCEDURE: After the informed written consent was obtained, the patient was asked to lie on the left lateral side. Intravenous anesthesia was given by anesthesiologist, Dr. Merida. When the patient became somnolent, the Olympus video upper endoscope was introduced into the oropha rynx, then into the esophagus. Esophagus appeared relatively normal with minimal reflux esophagitis . Scope at this time was advanced into the stomach. Gastrostomy site was noted. There is a large ulcer noted at the gastrostomy site. Most of the retention bumper of the gastrostomy is embedded in the gastric wall; it is almost ready to come out through the skin and because of this, I removed th e G-tube. Large ulcer is noted. No active bleeding noted. Clots were sitting on the top of these ulcers. The duodenum appeared normal. At this time, biopsy was done to rule out Helicobacter pylor i infection. Rest of the stomach showed minimal moderate degree of gastritis, and the procedure was terminated. PLAN: Recommend Protonix IV drip, and also recommend NG tube for constant low suction, and keep him n.p.o. Dictated By: KATELYN FERRARI/NTS Conf#: [id number] DID#: [id number] CC: MARLA AKBAR MD; KATELYN SILVERMAN MD;*EndCC*
[2016-09-02] MEDS: PIPER-TAZO 2.25 GM (PMX) 50 ML IVPB SCH (06:38)
[2016-09-02] MEDS: PANTOPRAZOLE IV 80 MG in SOD CHLORIDE 0.9% 100 ML IV SCH ×3 (06:38→17:40)
--- NOTE | 2016-09-02 08:25 | RADRPT ---
PROCEDURE: XR Chest. CLINICAL INDICATION: Shortness of breath TECHNIQUE: A single portable view of the chest was obtained. COMPARISON: 08/31/2016 FINDINGS: The tracheostomy tube is unchanged. Interval placement of a nasogastric tube is seen in the gastric lumen. The aorta is tortuous and atherosclerotic. The cardiomediastinal silhouette is otherwise w ithin normal limits. Diffuse chronic interstitial changes are once again seen. Bibasilar airspace di sease is again seen and is stable. No discrete pleural effusion is seen. The soft tissues and osse ous structures demonstrate benign age related senescent changes. IMPRESSION: 1. Interval placement of a nasogastric tube in the gastric lumen. 2. Diffuse chronic interstitial changes and bibasilar air space disease which is stable. RPTAT: HPNM Physician Pedro Pablo Date Time Electronically viewed and signed by Anthony Gregory Physician on 09/02/2016 08:25 /
[2016-09-02 08:26] LABS: EOSINOPHILS % 0.1 % (0.0-7.0); HEMOGLOBIN 9.4 g/dl (14.0-18.0); LYMPHOCYTES # 1.6 10^3/ul (0.8-2.9); LYMPHOCYTES % 10.6 % (15.0-51.0); MEAN CORPUSCULAR HEMOGLOBIN 27.2 pg (29.0-33.0); MEAN CORPUSCULAR HGB CONC 32.6 g/dl (32.0-37.0); MEAN CORPUSCULAR VOLUME 83.7 fl (82.0-101.0); MEAN PLATELET VOLUME 11.8 fl (7.4-10.4); MONOCYTE # 0.9 10^3/ul (0.3-0.9); MONOCYTES % 5.8 % (0.0-11.0); NEUTROPHIL # 12.9 10^3/ul (1.6-7.5); NEUTROPHILS % 83.5 % (39.0-77.0); PLATELET COUNT 231 10^3/UL (140-440); RED BLOOD COUNT 3.47 10^6/ul (4.70-6.10); RED CELL DISTRIBUTION WIDTH 19.7 % (11.5-14.5); UNCORRECTED WBC 15.4 10^3/ul (4.8-10.8); WHITE BLOOD COUNT 15.4 10^3/ul (4.8-10.8)
[2016-09-02 08:34] LABS: POTASSIUM 3.3 mmol/L (3.5-5.1)
[2016-09-02 08:35] LABS: CONDITION 1; LH ANALYZER COMMENTS 1; NUCLEATED RED BLOOD CELLS # 0.3 10^3/ul (0.0-0.0); SUSPECT 1
[2016-09-02 08:37] LABS: CREATININE 0.98 mg/dl (0.61-1.24)
[2016-09-02 08:38] LABS: CALCIUM 9.1 mg/dl (8.4-10.2)
--- NOTE | 2016-09-02 10:10 | PN ---
Date/Time of Note Date/Time of Note DATE: 09/02/16 TIME: 10:05 Assessment/Plan VTE Prophylaxis VTE Prophylaxis Intervention: SCD's Lines/Catheters IV Catheter Type (from Nrs): Saline Lock Urinary Cath still in place: Yes Reason Cath still needed: urinary retention Assessment/Plan Assessment/Plan 1. Intractable nausea and vomiting. Continue Zofran p.r.n. for nausea. Continue Protonix. Dr. Pryor will be following the patient in gastroenterology consultation. Continue IV fluids. 2. Dehydration secondary to vomiting. [facility]. [facility] Continue to monitor hemoglobin and hematocrit, transfuse p.r.n. 4. Ventilator-dependent respiratory failure with tracheostomy. Dr. Morrison is following from pulmonology standpoint. Continue bronchodilators and pulmonary toilet. 5. Acute kidney injury. Continue to monitor BUN and creatinine. Continue IV fluids. 5. Dysphagia with G-tube. 6. Chronic obstructive pulmonary disease. 7. Chronic Chaudhari catheter. 8. Colostomy 9. Hypertension. 10. Bedbound status. 11. 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 12 UTI per UA, urine cx. 13. MRSA nares 14. Bacteremia. 15. Hypokalemia- replet K, AM bmp \ Continue sequential compression device for deep venous thrombosis prophylaxis and Protonix for peptic ulcer disease prophylaxis. Further recommendations based on clinical course. Plan of care discussed with Dr. Meeks. Subjective 24 Hr Interval Summary Free Text/Dictation NAD, sp EGD, ngt intact- suction. dw staff. Subjective hx not possible: pt non-verbal Constitutional: requiring IVF, requiring O2 Exam/Review of Systems Vital Signs Vitals Vital Signs Date Time Temp Pulse Resp B/P Pulse Ox O2 Delivery O2 Flow Rate FiO2 09/02/16 09:54 122 09/02/16 08:24 23 100 40 09/02/16 08:02 98.2 129/71 09/01/16 20:20 Mechanical Ventilator Intake and Output 09/01/16 09/01/16 09/02/16 15:00 23:00 07:00 Intake Total 0 ml Output Total 1500 ml Balance -1500 ml Exam Constitutional: non-verbal Psych: nl mood/affect Head: atraumatic Eyes: nl sclera ENMT: nl external ears & nose Neck: non-tender Respiratory: diminished breath sounds Cardiovascular: nl pulses Gastrointestinal: non-tender, other, soft Musculoskeletal: muscle weakness, nl extremities to inspection Extremities: normal pulses Neurological: lethargic Skin: other (stage 111 ddecun on buttocks/ Legs) Lymph: nontender Results Result Diagram: 09/02/16 0718 09/02/16 0718 Results 24 hrs Laboratory Tests Test 09/02/16 07:18 Anion Gap 17 H Basophils # Pending Basophils % Pending Blood Morphology Comment Blood Urea Nitrogen 45 #H Calcium Level 9.1 Carbon Dioxide Level 28 Chloride Level 103 Creatinine 0.98 Eosinophils # Pending Eosinophils % Pending Glucose Level 92 Hematocrit 29.0 L Hemoglobin 9.4 L Lymphocytes # Pending Lymphocytes % Pending Mean Corpuscular Hemoglobin 27.2 L Mean Corpuscular Hemoglobin Concent 32.6 Mean Corpuscular Volume 83.7 Mean Platelet Volume 11.8 H Monocytes # Pending Monocytes % Pending Neutrophils # Pending Neutrophils % Pending Nucleated Red Blood Cells # Pending Nucleated Red Blood Cells % Pending Platelet Count 231 Potassium Level 3.3 L Red Blood Count 3.47 L Red Cell Distribution Width 19.7 H Sodium Level 145 H White Blood Count 15.4 H Medications Medications Current Medications Sodium Chloride 1,000 ml @ 100 mls/hr Q10H IV Last administered on 09/01/16 22 :51; Admin Dose 100 MLS/HR; Start 08/31/16 at 22:30 Piperacillin Sod/ Tazobactam Sod 50 ml @ 100 mls/hr Q8 IVPB Last administered on 09/02/16 06:38; Admin Dose 100 MLS/HR; Start 09/01/16 at 14:00 Pantoprazole/ Sodium Chloride (Protonix Iv/NS) 100 ml @ 10 mls/hr Q10H IV Last administered on 09/02/16 08:35; Admin Dose 10 MLS/HR; Start 09/01/16 at 21: 00 MARIO ROWE Sep 02, 2016 10:09
[2016-09-02] MEDS ORDERED: POTASSIUM CHLORIDE 20 MEQ in SOD CHLORIDE 0.9% 100 ML IVPB ONE (12:00)
[2016-09-02] MEDS: MUPIROCIN 2% 22 GM OINT TOP SCH ×2 (12:20→21:39)
[2016-09-02] MEDS: PIPER-TAZO 3.375 GM IV (PMX) 100 ML IVPB SCH ×3 (12:20→23:31)
[2016-09-02] MEDS: SOD CHLORIDE 0.45% 1,000 ML IV SCH (12:20)
--- NOTE | 2016-09-02 13:28 | CONS ---
Date/Time of Note Date/Time of Note DATE: 09/02/16 TIME: 13:24 Assessment/Plan Assessment/Plan Additional Assessment/Plan assessment/impression - S. aureus bacteremia - S. 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 - HCV infection - colostomy status recommendations - will swab the wound for culture - repeat blood cultures in AM - start IV vancomycin (09/02/2016-) - continue empiric pip/tazo (09/01/2016-) Consultation Date/Type/Reason Admit Date/Time Aug 31, 2016 at 14:59 Initial Consult Date 09/01/16 Type of Consultation: ID Reason for Consultation bacteremia Referring Provider: MARIO ROWE 24 HR Interval Summary Subjective hx not possible: pt non-verbal Exam/Review of Systems Vital Signs Vitals Vital Signs Date Time Temp Pulse Resp B/P Pulse Ox O2 Delivery O2 Flow Rate FiO2 09/02/16 12:46 98.2 78 20 108/57 99 09/02/16 11:09 40 09/01/16 20:20 Mechanical Ventilator Intake and Output 09/01/16 09/01/16 09/02/16 15:00 23:00 07:00 Intake Total 0 ml Output Total 1500 ml Balance -1500 ml Exam Constitutional: non-verbal Results Result Diagram: 09/02/16 0718 09/02/16 0718 Results 24 hrs Laboratory Tests Test 09/02/16 07:18 Anion Gap 17 H Basophils # Pending Basophils % Pending Blood Morphology Comment Blood Urea Nitrogen 45 #H Calcium Level 9.1 Carbon Dioxide Level 28 Chloride Level 103 Creatinine 0.98 Eosinophils # Pending Eosinophils % Pending Glucose Level 92 Hematocrit 29.0 L Hemoglobin 9.4 L Lymphocytes # Pending Lymphocytes % Pending Mean Corpuscular Hemoglobin 27.2 L Mean Corpuscular Hemoglobin Concent 32.6 Mean Corpuscular Volume 83.7 Mean Platelet Volume 11.8 H Monocytes # Pending Monocytes % Pending Neutrophils # Pending Neutrophils % Pending Nucleated Red Blood Cells # Pending Nucleated Red Blood Cells % Pending Platelet Count 231 Potassium Level 3.3 L Red Blood Count 3.47 L Red Cell Distribution Width 19.7 H Sodium Level 145 H White Blood Count 15.4 H Medications Medications Current Medications Sodium Chloride 1,000 ml @ 100 mls/hr Q10H IV Last administered on 09/02/16 12 :20; Admin Dose 100 MLS/HR; Start 08/31/16 at 22:30 Pantoprazole/ Sodium Chloride (Protonix Iv/NS) 100 ml @ 10 mls/hr Q10H IV Last administered on 09/02/16 08:35; Admin Dose 10 MLS/HR; Start 09/01/16 at 21: 00 Mupirocin 1 applic 1 applic BID TOP Last administered on 09/02/16 12:20; Admin Dose 1 APPLIC; Start 09/02/16 at 12:00 Potassium Chloride/Sodium Chloride (KCl/NS) 110 ml @ 55 mls/hr ONCE ONCE IVPB Last administered on 09/02/16 12:20; Admin Dose 55 MLS/HR; Start 09/02/16 at 12 :00; Stop 09/02/16 at 13:59 Collagenase 1 applic 1 applic DAILY TOP ; Start 09/02/16 at 11:30 Piperacillin Sod/ Tazobactam Sod (Zosyn 3.375gm/ 100 ml (Pmx)) 100 ml @ 100 mls /hr Q6 IVPB Last administered on 09/02/16 12:20; Admin Dose 100 MLS/HR; Start 09/02/16 at 12:00 LIZZY HECK M.D. Sep 02, 2016 13:28
[2016-09-02] MEDS ORDERED: VANCOMYCIN IV PER PHARMACY XX SCH (13:30)
--- NOTE | 2016-09-02 13:36 | CONS ---
Date/Time of Note Date/Time of Note DATE: 09/02/16 TIME: 13:34 Assessment/Plan Assessment/Plan Additional Assessment/Plan Assessment and recommendations; 1. Patient admitted with intravascular volume depletion and dehydration. With significant clinical improvement 2. History of advanced dementia next 3. History of subdural hematoma next 4. Chronic respiratory failure ventilator dependent. Next 5. Acute renal insufficiency with significant improvement in serum creatinine after rehydration. Continue current treatment. Potassium to be replaced. Overall prognosis remains poor. Consultation Date/Type/Reason Admit Date/Time Aug 31, 2016 at 14:59 Initial Consult Date 09/01/16 Type of Consultation: ID [id number] HR Interval Summary Free Text/Dictation Patient condition is stable. Still on mechanical ventilation via tracheostomy. Due to advanced dementia patient is unable to give any history whatsoever and remains unresponsive. General examination; elderly male currently in no distress. Exam/Review of Systems Vital Signs Vitals Vital Signs Date Time Temp Pulse Resp B/P Pulse Ox O2 Delivery O2 Flow Rate FiO2 09/02/16 12:46 98.2 78 20 108/57 99 09/02/16 11:09 40 09/01/16 20:20 Mechanical Ventilator Intake and Output 09/01/16 09/01/16 09/02/16 15:00 23:00 07:00 Intake Total 0 ml Output Total 1500 ml Balance -1500 ml Exam H EENT examination; supple neck, edematous. Tracheostomy in place. No neck masses. No thyromegaly. No lymphadenopathy. Next Chest examination; diminished but clear breath sounds. S1-S2 audible no murmurs regular rhythm. Abdomen examination; scaphoid, colostomy in place. PEG tube in place. No organomegaly. Extremity examination; peripheral edema. Severe muscle loss is present. SECURITY AMBASSADOR examination; patient remains unresponsive. Ventilator settings are assist control of 16, tidal volume 500, PEEP of 5, 40% FiO2. Results Result Diagram: 09/02/16 0718 09/02/16 0718 Results 24 hrs Laboratory Tests Test 09/02/16 07:18 Anion Gap 17 H Basophils # Pending Basophils % Pending Blood Morphology Comment Blood Urea Nitrogen 45 #H Calcium Level 9.1 Carbon Dioxide Level 28 Chloride Level 103 Creatinine 0.98 Eosinophils # Pending Eosinophils % Pending Glucose Level 92 Hematocrit 29.0 L Hemoglobin 9.4 L Lymphocytes # Pending Lymphocytes % Pending Mean Corpuscular Hemoglobin 27.2 L Mean Corpuscular Hemoglobin Concent 32.6 Mean Corpuscular Volume 83.7 Mean Platelet Volume 11.8 H Monocytes # Pending Monocytes % Pending Neutrophils # Pending Neutrophils % Pending Nucleated Red Blood Cells # Pending Nucleated Red Blood Cells % Pending Platelet Count 231 Potassium Level 3.3 L Red Blood Count 3.47 L Red Cell Distribution Width 19.7 H Sodium Level 145 H White Blood Count 15.4 H Medications Medications Current Medications Sodium Chloride 1,000 ml @ 100 mls/hr Q10H IV Last administered on 09/02/16 12 :20; Admin Dose 100 MLS/HR; Start 08/31/16 at 22:30 Pantoprazole/ Sodium Chloride (Protonix Iv/NS) 100 ml @ 10 mls/hr Q10H IV Last administered on 09/02/16 08:35; Admin Dose 10 MLS/HR; Start 09/01/16 at 21: 00 Mupirocin 1 applic 1 applic BID TOP Last administered on 09/02/16 12:20; Admin Dose 1 APPLIC; Start 09/02/16 at 12:00 Potassium Chloride/Sodium Chloride (KCl/NS) 110 ml @ 55 mls/hr ONCE ONCE IVPB Last administered on 09/02/16 12:20; Admin Dose 55 MLS/HR; Start 09/02/16 at 12 :00; Stop 09/02/16 at 13:59 Collagenase 1 applic 1 applic DAILY TOP ; Start 09/02/16 at 11:30 Piperacillin Sod/ Tazobactam Sod (Zosyn 3.375gm/ 100 ml (Pmx)) 100 ml @ 100 mls /hr Q6 IVPB Last administered on 09/02/16 12:20; Admin Dose 100 MLS/HR; Start 09/02/16 at 12:00 SHAAN BUTT Sep 02, 2016 13:36
--- NOTE | 2016-09-02 14:28 | CONS ---
Date/Time of Note Date/Time of Note DATE: 09/02/16 TIME: 14:21 Assessment/Plan Assessment/Plan Additional Assessment/Plan assessment/impression - S. aureus bacteremia. possible sources include: abd wall, RLE, respiratory tract - S. 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 - HCV infection - colostomy status recommendations - await the final result and sensitivity of blood and urine cultures - will swab the wound for culture: G tube site, wound on RLE - will collect respiratory culture too - repeat blood cultures in AM - start IV vancomycin (09/02/2016-) - continue empiric pip/tazo (09/01/2016-) management d/w Pt's RN Consultation Date/Type/Reason Admit Date/Time Aug 31, 2016 at 14:59 Date of Consultation: Sep 02, 2016 Type of Consultation: ID Reason for Consultation bacteremia Referring Provider: MARIO ROWE Hx of Present Illness This is a 71 yo male with chronic encephalopathy, PEG and trach dependent male. Pt was transferred from SNF due to hemetemesis. Pt's urine and blood cultures on admission are starting to grow Gram positive cocci in clusters/S. aureus. Pt underwent EGD, which showed ulcer at G tube site. In addition, the retention bumper of the gastrostomy was buried in the gastric wall. G tube was removed. SECRETARY BOOKKEEPER Kennedy requested ID consultation on this Pt. Subjective hx not possible: pt non-verbal Constitutional: requiring IVF, requiring O2 Past Medical History Medical History: GI bleed, other (chronic encephalopathy, vent, G tube dependent, Q TB gold positive status of unknown duration, colostomy) Social History Smoking Status: Never smoker Exam/Review of Systems Vital Signs Vitals Vital Signs Date Time Temp Pulse Resp B/P Pulse Ox O2 Delivery O2 Flow Rate FiO2 2/2/17 13:32 117 09/02/16 13:25 1 100 40 09/02/16 12:46 98.2 108/57 09/01/16 20:20 Mechanical Ventilator Intake and Output 09/01/16 09/01/16 09/02/16 15:00 23:00 07:00 Intake Total 0 ml Output Total 1500 ml Balance -1500 ml Exam Constitutional: frail, non-verbal Psych: confusion Head: atraumatic, normocephalic Eyes: nl conjunctiva, nl lids ENMT: nl external ears & nose, nl nasal mucosa & septum Neck: other (trach) Respiratory: clear to auscultation, normal air movement Cardiovascular: nl pulses, regular rate and rhythm Gastrointestinal: non-tender, other (wound at former G tube site, colostomy), soft Genitourinary - Male: other (FC) Musculoskeletal: No swelling Extremities: No edema Neurological: confused Skin: laceration (RLE) Results Result Diagram: 09/02/16 0718 09/02/16 0718 Results 24 hrs Laboratory Tests Test 09/02/16 07:18 Anion Gap 17 H Basophils # 0.0 Basophils % 0.0 Blood Morphology Comment Blood Urea Nitrogen 45 #H Calcium Level 9.1 Carbon Dioxide Level 28 Chloride Level 103 Creatinine 0.98 Differential Comment AUTO w/SCAN Eosinophils # 0.0 Eosinophils % 0.1 Glucose Level 92 Hematocrit 29.0 L Hemoglobin 9.4 L Lymphocytes # 1.6 Lymphocytes % 10.6 L Mean Corpuscular Hemoglobin 27.2 L Mean Corpuscular Hemoglobin Concent 32.6 Mean Corpuscular Volume 83.7 Mean Platelet Volume 11.8 H Monocytes # 0.9 Monocytes % 5.8 Neutrophils # 12.9 H Neutrophils % 83.5 H Nucleated Red Blood Cells # 0.3 H Nucleated Red Blood Cells % 0.0 Platelet Count 231 Potassium Level 3.3 L Red Blood Count 3.47 L Red Cell Distribution Width 19.7 H Sodium Level 145 H White Blood Count 15.4 H Medications Medications Current Medications Sodium Chloride 1,000 ml @ 100 mls/hr Q10H IV Last administered on 09/02/16t 12 :20; Admin Dose 100 MLS/HR; Start 08/31/16 at 22:30 Pantoprazole/ Sodium Chloride (Protonix Iv/NS) 100 ml @ 10 mls/hr Q10H IV Last administered on 09/02/16 08:35; Admin Dose 10 MLS/HR; Start 09/01/16 at 21: 00 Mupirocin (Bactroban) 1 applic BID TOP Last administered on 09/02/16 12:20; Admin Dose 1 APPLIC; Start 09/02/16 at 12:00 Collagenase 1 applic 1 applic DAILY TOP ; Start 09/02/16 at 11:30 Piperacillin Sod/ Tazobactam Sod 100 ml @ 100 mls/hr Q6 IVPB Last administered on 09/02/16 12:20; Admin Dose 100 MLS/HR; Start 09/02/16 at 12:00 Vancomycin HCl/ Sodium Chloride (Vancocin/NS) 250 ml @ 83.333 mls/ hr ONCE ONCE IVPB ; Start 09/02/16 at 15:00; Stop 09/02/16 at 17:59 LIZZY HECK M.D. Sep 02, 2016 14:28
[2016-09-02] MEDS ORDERED: VANCOMYCIN 1.25 GM in SOD CHLORIDE 0.9% 250 ML IVPB ONE (15:00)
[2016-09-02] MEDS: COLLAGENASE 30 GM TUBE TOP SCH (15:05)
--- NOTE | 2016-09-02 18:30 | CONS ---
DATE OF ADMISSION: 08/31/2016 DATE OF CONSULTATION: 09/02/2016 CHIEF COMPLAINT: The patient has no specific complaints. OBJECTIVE FINDINGS: The patient had upper endoscopy done yesterday which showed evidence of a large gastric ulcer at the site of the gastrostomy. G-tube was almost out of the stomach. Hence G-tube was removed yesterday. Today, he has a nasogastric tube in place draining some minimal yellowish co ffee-ground material. ABDOMEN: Showed old gastrostomy site still not closed. LABORATORY WORKUP: Hemoglobin is 9.4, WBC is 15,400. Potassium 3.3. CLINICAL IMPRESSION: The patient has upper GI bleeding which is stable. He has a gastric ulcer at the site of the gastrostomy. He still has a gastric opening from the gastrostomy site which probabl y will take few days to closed. PLAN: Continue nasogastric suction. Continue proton pump inhibitor therapy. Dictated By: KATELYN FERRARI/MACK Conf#: [id number] DID#: [id number]
--- NOTE | 2016-09-02 19:55 | RADRPT ---
PROCEDURE: XR Chest. CLINICAL INDICATION: Evaluate nasogastric tube placement. TECHNIQUE: Portable AP view of the chest was obtained. COMPARISON: 09/02/2016 FINDINGS: The cardiomediastinal silhouette is within normal limits. The nasogastric tube has retracted and th e distal tip is just below the diaphragm, more proximal in location than previously. Advancement of the tube by approximately 10 cm is recommended. Tracheostomy remains in satisfactory position. Di ffuse right upper lobe infiltrate with interstitial change of the lung parenchyma is again seen. No obvious pleural effusion or pneumothorax is identified. The osseous structures are intact with no evidence for acute abnormality. RPTAT:HJJR IMPRESSION: 1. Interval retraction of the nasogastric tube compared to earlier the same day, the distal tip now just below the diaphragm and advancement of the catheter by approximately 10 cm is recommended. 2. Otherwise no interval change in the appearance of the lung parenchyma compared to earlier the sa me date. Physician Carlos Date Time Electronically viewed and signed by Physician Carlos on 09/02/2016 19:55 /
[2016-09-03] VITALS (25 sets, daily range): BP systolic 128–137; BP diastolic 69–97; PULSE 100–110; RESP 14–26
[2016-09-03] MEDS: SOD CHLORIDE 0.45% 1,000 ML IV SCH ×3 (02:47→16:25)
--- NOTE | 2016-09-03 02:52 | RADRPT ---
PROCEDURE: XR Chest. CLINICAL INDICATION: Nasogastric tube placement. TECHNIQUE: Single frontal view of the chest was obtained COMPARISON: None FINDINGS: Tracheostomy tube at mid lung. Nasogastric tube in place with side port in the distal esophagus and tip in the proximal stomach. Re commend advancing same about 8 to 10 cm and re-imaging. Patchy right lung air space disease again seen. Mild left lung base atelectasis versus airspace dis ease again seen. These findings are without significant global climate change researcher interval. IMPRESSION: Recommend advancing nasogastric to about [address] tip and side port within the gastric lumen , and with reimaging to demonstrate new tip and side port position. RPTAT: [facility]U Physician Deandra Date Time Electronically viewed and signed by Physician Deandra on 09/03/2016 02:51 RS/
[2016-09-03] MEDS: PANTOPRAZOLE IV 80 MG in SOD CHLORIDE 0.9% 100 ML IV SCH ×2 (03:38→12:56)
[2016-09-03] MEDS ORDERED: VANCOMYCIN 500MG/NS (PMX) 100 ML IVPB SCH (04:00)
[2016-09-03] MEDS: PIPER-TAZO 3.375 GM IV (PMX) 100 ML IVPB SCH ×3 (06:25→17:19)
--- NOTE | 2016-09-03 06:53 | RADRPT ---
PROCEDURE: XR Chest. CLINICAL INDICATION: NG tube placement TECHNIQUE: A single AP view of the chest was obtained. COMPARISON: Chest x-ray performed earlier on the same date FINDINGS: A tracheostomy tube is in place. The tip of the nasogastric tube is at the GE junction. The lungs are hyperinflated with coarsening of the interstitial markings and patchy bilateral alveol ar opacities. No pleural effusion or pneumothorax is seen. The cardiomediastinal silhouette is wit hin normal limits for size. Calcifications are seen within the aortic arch. The osseous structures are unremarkable. IMPRESSION: 1. Hyperinflation of the lungs with chronic-appearing interstitial changes. There are patchy bilat eral alveolar opacities which may reflect superimposed pneumonia or edema. Overall, no significant interval change. 2. Aortic atherosclerosis. 3. The tip of the nasogastric tube is at the gastroesophageal junction, not significantly changed w hen compared to the prior examination. Advancing an additional 6-7 cm is recommended. RPTAT: HH .Malena Irwin MD, MD Date Time Electronically viewed and signed by .Malena Irwin MD, on 09/03/2016 06:53 .G/
[2016-09-03 06:56] LABS: EOSINOPHILS % 0.2 % (0.0-7.0); HEMATOCRIT 29.1 % (42.0-52.0); HEMOGLOBIN 9.5 g/dl (14.0-18.0); LYMPHOCYTES # 1.9 10^3/ul (0.8-2.9); LYMPHOCYTES % 10.6 % (15.0-51.0); MEAN CORPUSCULAR HEMOGLOBIN 27.1 pg (29.0-33.0); MEAN CORPUSCULAR HGB CONC 32.7 g/dl (32.0-37.0); MEAN CORPUSCULAR VOLUME 82.9 fl (82.0-101.0); MEAN PLATELET VOLUME 12.6 fl (7.4-10.4); MONOCYTE # 1.3 10^3/ul (0.3-0.9); MONOCYTES % 7.1 % (0.0-11.0); NEUTROPHIL # 14.8 10^3/ul (1.6-7.5); NEUTROPHILS % 82.1 % (39.0-77.0); PLATELET COUNT 264 10^3/UL (140-440); RED BLOOD COUNT 3.51 10^6/ul (4.70-6.10); RED CELL DISTRIBUTION WIDTH 19.6 % (11.5-14.5); UNCORRECTED WBC 18.1 10^3/ul (4.8-10.8); WHITE BLOOD COUNT 18.1 10^3/ul (4.8-10.8)
[2016-09-03 07:03] LABS: POTASSIUM 3.2 mmol/L (3.5-5.1)
[2016-09-03 07:05] LABS: CREATININE 0.63 mg/dl (0.61-1.24)
[2016-09-03 07:06] LABS: CALCIUM 9.1 mg/dl (8.4-10.2)
[2016-09-03 08:15] LABS: CONDITION 1; LH ANALYZER COMMENTS 1; NUCLEATED RED BLOOD CELLS # 0.4 10^3/ul (0.0-0.0); SUSPECT 1
--- NOTE | 2016-09-03 09:14 | CONS ---
Date/Time of Note Date/Time of Note DATE: 09/03/16 TIME: 09:08 Assessment/Plan Assessment/Plan Chief Complaint/Hosp Course assessment/impression - bacteremia due to Gram positive cocci in clusters and chains. Possible sources include: abd wall, RLE, respiratory tract - S. 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 - h/o thrush - HCV infection - colostomy status recommendations - await the final result and sensitivity of blood and urine cultures, respiratory culture, wound cultures from the abdomen and RLE - I recommend transthoracic echo to r/o vegetation - continue IV vancomycin (09/02/2016-) - continue IV pip/tazo (09/01/2016-) - will adjust his antibiotics based on the final results of cultures management d/w Pt's RN Problems: Consultation Date/Type/Reason Admit Date/Time Aug 31, 2016 at 14:59 Initial Consult Date 09/01/16 Type of Consultation: ID Referring Provider: MARIO ROWE 24 HR Interval Summary Subjective hx not possible: pt non-verbal Exam/Review of Systems Vital Signs Vitals Vital Signs Date Time Temp Pulse Resp B/P Pulse Ox O2 Delivery O2 Flow Rate FiO2 09/03/16 07:48 98.5 75 18 130/97 94 09/03/16 07:45 40 09/01/16 20:20 Mechanical Ventilator Intake and Output 09/02/16 09/02/16 09/03/16 15:00 23:00 07:00 Intake Total 0 ml 0 ml 0 ml Output Total 1200 ml 1000 ml 700 ml Balance -1200 ml -1000 ml -700 ml Exam Constitutional: frail, non-verbal Psych: confusion Head: atraumatic, normocephalic Eyes: nl conjunctiva, nl lids ENMT: nl external ears & nose, nl nasal mucosa & septum, other (NGT) Neck: other (trach) Respiratory: clear to auscultation, normal air movement Cardiovascular: nl pulses, regular rate and rhythm Gastrointestinal: non-tender, other (abdominal wound is dressed), soft Genitourinary - Male: other (FC) Musculoskeletal: No swelling Extremities: No edema Neurological: confused Results Result Diagram: 09/03/16 0617 09/03/16 0617 Results 24 hrs Laboratory Tests Test 09/03/16 06:17 Anion Gap 19 H Basophils # 0.0 Basophils % 0.0 Blood Morphology Comment Blood Urea Nitrogen 28 #H Calcium Level 9.1 Carbon Dioxide Level 26 Chloride Level 107 Creatinine 0.63 Eosinophils # 0.0 Eosinophils % 0.2 Glucose Level 95 Hematocrit 29.1 L Hemoglobin 9.5 L Lymphocytes # 1.9 Lymphocytes % 10.6 L Mean Corpuscular Hemoglobin 27.1 L Mean Corpuscular Hemoglobin Concent 32.7 Mean Corpuscular Volume 82.9 Mean Platelet Volume 12.6 H Monocytes # 1.3 H Monocytes % 7.1 Neutrophils # 14.8 H Neutrophils % 82.1 H Nucleated Red Blood Cells # 0.4 H Nucleated Red Blood Cells % 2.0 H Platelet Count 264 Potassium Level 3.2 L Red Blood Count 3.51 L Red Cell Distribution Width 19.6 H Sodium Level 149 H White Blood Count 18.1 H Medications Medications Current Medications Sodium Chloride 1,000 ml @ 100 mls/hr Q10H IV Last administered on 09/03/16 02 :47; Admin Dose 100 MLS/HR; Start 08/31/16 at 22:30 Pantoprazole/ Sodium Chloride (Protonix Iv/NS) 100 ml @ 10 mls/hr Q10H IV Last administered on 09/03/16 03:38; Admin Dose 10 MLS/HR; Start 09/01/16 at 21: 00 Mupirocin (Bactroban) 1 applic BID TOP Last administered on 09/02/16 21:39; Admin Dose 1 APPLIC; Start 09/02/16 at 12:00 Collagenase 1 applic 1 applic DAILY TOP Last administered on 09/02/16 15:05; Admin Dose 1 APPLIC; Start 09/02/16 at 11:30 Piperacillin Sod/ Tazobactam Sod 100 ml @ 100 mls/hr Q6 IVPB Last administered on 09/03/16 06:25; Admin Dose 100 MLS/HR; Start 09/02/16 at 12:00 Vancomycin HCl (Vancocin) 100 ml @ 100 mls/hr Q12H IVPB Last administered on 03:37; Admin Dose 100 MLS/HR; Start 09/03/16 at 04:00 LIZZY HECK M.D. Sep 03, 2016 09:14 LIZZY HECK M.D. Sep 03, 2016 09:14
--- NOTE | 2016-09-03 09:28 | RADRPT ---
PROCEDURE: XR Chest. CLINICAL INDICATION: Shortness of breath. TECHNIQUE: Single frontal view. COMPARISON: 09/03/2016. FINDINGS: The tracheostomy tube and nasogastric tube remain in satisfactory position. There is patchy bilater al pulmonary air space disease consistent with bilateral multifocal pneumonia with right upper and l eft lower is predominance. The heart size is normal. There is calcification in the aorta consistent with atherosclerosis. There is no pleural effusion. There is no pneumothorax. IMPRESSION: 1. No change from 09/03/2016. RPTAT: QQ .Carter Hogan MD, MD Date Time Electronically viewed and signed by .Carter Hogan MD, MD on 09/03/2016 09:28 .R/
[2016-09-03] MEDS: COLLAGENASE 30 GM TUBE TOP SCH (09:32)
[2016-09-03] MEDS: MUPIROCIN 2% 22 GM OINT TOP SCH (09:32)
--- NOTE | 2016-09-03 09:44 | CONS ---
Date/Time of Note Date/Time of Note DATE: 09/03/16 TIME: 09:40 Assessment/Plan Assessment/Plan Additional Assessment/Plan Current ventilator settings; assist control of 16, tidal volume 500, PEEP of 5, 40% FiO2. Assessment and recommendation; 1. patient with chronic respiratory failure admitted for severe sepsis with gram-positive bacteremia. 2. History of subdural hematoma. 3. Acute renal insufficiency with normalization of renal function after IV hydration. 4. Extremely poor mental status. 5. Patient has increased leukocytosis from today. Continue current treatment, ventilator settings, antibiotics. Overall prognosis remains poor. Consultation Date/Type/Reason Admit Date/Time Aug 31, 2016 at 14:59 Initial Consult Date 09/01/16 Type of Consultation: pulmonary Referring Provider: MARIO ROWE 24 HR Interval Summary Free Text/Dictation Patient condition remains stable. Patient remains completely unresponsive. On the ventilation via tracheostomy. Has remained hemodynamically stable. General examination; elderly male, unresponsive on mechanical ventilation. Currently in no distress Exam/Review of Systems Vital Signs Vitals Vital Signs Date Time Temp Pulse Resp B/P Pulse Ox O2 Delivery O2 Flow Rate FiO2 09/03/16 07:48 98.5 75 18 130/97 94 09/03/16 07:45 40 09/01/16 20:20 Mechanical Ventilator Intake and Output 09/02/16 09/02/16 09/03/16 15:00 23:00 07:00 Intake Total 0 ml 0 ml 0 ml Output Total 1200 ml 1000 ml 700 ml Balance -1200 ml -1000 ml -700 ml Exam H EENT examination; supple neck, tracheostomy in place. Patient is edentulous. No neck masses. No lymphadenopathy. No thyromegaly. Chest examination; diminished but clear breath sounds bilaterally. S1-S2 audible no murmurs. Regular rate and rhythm. Abdomen examination; scaphoid, colostomy in place, PEG tube in place. Bowel sounds audible. Extremity examination; no peripheral edema. WATCH BAND ASSEMBLER examination; patient is unresponsive. Results Result Diagram: 09/03/16 0617 09/03/16 0617 Results 24 hrs Laboratory Tests Test 09/03/16 06:17 Anion Gap 19 H Basophils # 0.0 Basophils % 0.0 Blood Morphology Comment Blood Urea Nitrogen 28 #H Calcium Level 9.1 Carbon Dioxide Level 26 Chloride Level 107 Creatinine 0.63 Eosinophils # 0.0 Eosinophils % 0.2 Glucose Level 95 Hematocrit 29.1 L Hemoglobin 9.5 L Lymphocytes # 1.9 Lymphocytes % 10.6 L Mean Corpuscular Hemoglobin 27.1 L Mean Corpuscular Hemoglobin Concent 32.7 Mean Corpuscular Volume 82.9 Mean Platelet Volume 12.6 H Monocytes # 1.3 H Monocytes % 7.1 Neutrophils # 14.8 H Neutrophils % 82.1 H Nucleated Red Blood Cells # 0.4 H Nucleated Red Blood Cells % 2.0 H Platelet Count 264 Potassium Level 3.2 L Red Blood Count 3.51 L Red Cell Distribution Width 19.6 H Sodium Level 149 H White Blood Count 18.1 H Medications Medications Current Medications Sodium Chloride 1,000 ml @ 100 mls/hr Q10H IV Last administered on 09/03/16 02 :47; Admin Dose 100 MLS/HR; Start 08/31/16 at 22:30 Pantoprazole/ Sodium Chloride (Protonix Iv/NS) 100 ml @ 10 mls/hr Q10H IV Last administered on 09/03/16 03:38; Admin Dose 10 MLS/HR; Start 09/01/16 at 21: 00 Mupirocin (Bactroban) 1 applic BID TOP Last administered on 09/03/16 09:32; Admin Dose 1 APPLIC; Start 09/02/16 at 12:00 Collagenase 1 applic 1 applic DAILY TOP Last administered on 09/03/16 09:32; Admin Dose 1 APPLIC; Start 09/02/16 at 11:30 Piperacillin Sod/ Tazobactam Sod 100 ml @ 100 mls/hr Q6 IVPB Last administered on 09/03/16 06:25; Admin Dose 100 MLS/HR; Start 09/02/16 at 12:00 Vancomycin HCl (Vancocin) 100 ml @ 100 mls/hr Q12H IVPB Last administered on 03:37; Admin Dose 100 MLS/HR; Start 09/03/16 at 04:00 SHAAN BUTT Sep 03, 2016 09:44
--- NOTE | 2016-09-03 14:22 | PN ---
DATE: CHIEF COMPLAINT: The patient is nonverbal. He is unable to complain. The patient had hemetemesis upper endoscopy showed large ulcer in the gastric tube site. Because of the migration of the G-tube the G-tube was removed. PHYSICAL EXAMINATION: GENERAL: The patient is intubated, is nonverbal. CARDIOVASCULAR: Normal heart sounds. RESPIRATORY: Normal breath sounds. ABDOMEN: Shows soft abdomen. There is evidence of a gastrostomy site noted which is not bleeding. LABORATORY: Hemoglobin 9.5, WBC is 18,100. Potassium is 3.2, sodium 149, BUN 20, creatinine is 0.6 3, CLINICAL IMPRESSION: Upper gastrointestinal bleeding secondary to gastrostomy site ulcer disease. At this time patient has no bleeding. Continue nasogastric suction. Continue Protonix 40 mg IV q.12h. Dictated By: KATELYN SILVERMAN MD NC/NTS Conf#: [id number] DID#: [id number] CC: MARLA AKBAR MD; KATELYN SILVERMAN MD;*End*
[2016-09-03] MEDS ORDERED: POTASSIUM CHLORIDE 30 MEQ in DEXTROSE 5% 250 ML IVPB ONE (17:00)
--- NOTE | 2016-09-03 17:11 | PN ---
Date/Time of Note Date/Time of Note DATE: 09/03/16 TIME: 17:06 Assessment/Plan VTE Prophylaxis VTE Prophylaxis Intervention: SCD's Lines/Catheters IV Catheter Type (from Nrs): Peripheral IV Urinary Cath still in place: Yes Reason Cath still needed: urinary retention Assessment/Plan Chief Complaint/Hosp Course ASSESSMENT AND PLAN: 1. Upper gastrointestinal bleeding secondary to gastrostomy site ulcer disease. Continue Protonix. Dr. Pryor is following the patient in gastroenterology consultation. Continue IV fluids. 2. Dehydration secondary to vomiting. 3. Sepsis with Staph bacteremia. Dr Godfrey is following in ID consultation. Co ntinue abx per ID. 4. 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 5. Ventilator-dependent respiratory failure with tracheostomy. Dr. Morrison is following from pulmonology standpoint. Continue bronchodilators and pulmonary toilet. 5. Dysphagia with G-tube. 6. Chronic obstructive pulmonary disease. 7. Chronic Chaudhari catheter. 8. Colostomy 9. Hypertension. 10. Bedbound status. 11. Acute kidney injury. Continue to monitor BUN and creatinine. Continue IV fluids. 12 MRSA UTI , continue Vanco. Continue sequential compression device for deep venous thrombosis prophylaxis and Protonix for peptic ulcer disease prophylaxis. Further recommendations based on clinical course. Plan of care discussed with Dr. Meeks. Problems: Subjective 24 Hr Interval Summary Free Text/Dictation SR with PAC son tele, NGT to low suctioned, continues on IVF. Exam/Review of Systems Vital Signs Vitals Vital Signs Date Time Temp Pulse Resp B/P Pulse Ox O2 Delivery O2 Flow Rate FiO2 09/03/16 17:01 100 09/03/16 15:21 98.2 22 128/76 99 09/03/16 15:15 40 09/01/16 20:20 Mechanical Ventilator Intake and Output 09/02/16 09/02/16 09/03/16 15:00 23:00 07:00 Intake Total 0 ml 0 ml 0 ml Output Total 1200 ml 1000 ml 700 ml Balance -1200 ml -1000 ml -700 ml Exam GENERAL: Well-developed, cachectic gentleman currently obtunded on ventilator support via tracheostomy. HEENT: Pupils equal, round, reactive to light and accommodation. NECK: Supple, no cervical lymphadenopathy, no thyromegaly. Tracheostomy the base of the neck with small amount of secretions. LUNGS: Rhonchi bilaterally, slightly diminished at the bases. CARDIOVASCULAR: Normal S1, S2. No murmurs, gallops, clicks, rubs noted. ABDOMEN: Flat, soft, nondistended, nontender. Bowel sounds hypoactive. Patient has left lower quadrant colostomy with pink, moist stoma. GENITOURINARY: The patient also has a Chaudhari catheter. EXTREMITIES: No edema, clubbing, cyanosis. Pulses equal bilaterally 2+. Lower extremities contracted. SKIN: There is no rash, petechiae noted. The patient has a sacral decubitus ulcer stage II. See nursing notes for further description. NEUROLOGIC: Patient does not follow any commands. Results Result Diagram: 09/03/16 0617 09/03/16 0617 Results 24 hrs Laboratory Tests Test 09/03/16 06:17 Anion Gap 19 H Basophils # 0.0 Basophils % 0.0 Blood Morphology Comment Blood Urea Nitrogen 28 #H Calcium Level 9.1 Carbon Dioxide Level 26 Chloride Level 107 Creatinine 0.63 Eosinophils # 0.0 Eosinophils % 0.2 Glucose Level 95 Hematocrit 29.1 L Hemoglobin 9.5 L Lymphocytes # 1.9 Lymphocytes % 10.6 L Mean Corpuscular Hemoglobin 27.1 L Mean Corpuscular Hemoglobin Concent 32.7 Mean Corpuscular Volume 82.9 Mean Platelet Volume 12.6 H Monocytes # 1.3 H Monocytes % 7.1 Neutrophils # 14.8 H Neutrophils % 82.1 H Nucleated Red Blood Cells # 0.4 H Nucleated Red Blood Cells % 2.0 H Platelet Count 264 Potassium Level 3.2 L Red Blood Count 3.51 L Red Cell Distribution Width 19.6 H Sodium Level 149 H White Blood Count 18.1 H Medications Medications Current Medications Sodium Chloride 1,000 ml @ 100 mls/hr Q10H IV Last administered on 09/03/16 16 :25; Admin Dose 100 MLS/HR; Start 08/31/16 at 22:30 Pantoprazole/ Sodium Chloride (Protonix Iv/NS) 100 ml @ 10 mls/hr Q10H IV Last administered on 09/03/16 12:56; Admin Dose 10 MLS/HR; Start 09/01/16 at 21: 00 Mupirocin (Bactroban) 1 applic BID TOP Last administered on 09/03/16 09:32; Admin Dose 1 APPLIC; Start 09/02/16 at 12:00 Collagenase 1 applic 1 applic DAILY TOP Last administered on 09/03/16 09:32; Admin Dose 1 APPLIC; Start 09/02/16 at 11:30 Piperacillin Sod/ Tazobactam Sod 100 ml @ 100 mls/hr Q6 IVPB Last administered on 09/03/16 12:56; Admin Dose 100 MLS/HR; Start 09/02/16 at 12:00 Vancomycin HCl 750 mg/Sodium Chloride 150 ml @ 75 mls/hr Q12H IVPB ; Start 09/03 at 16:00 Potassium Chloride/Dextrose (KCl/D5W) 265 ml @ 88.333 mls/ hr ONCE ONCE IVPB ; Start 09/03/16 at 17:00; Stop 09/03/16 at 19:59 AMY MORAN Sep 03, 2016 17:11
[2016-09-03] MEDS: VANCOMYCIN 750 MG in SOD CHLORIDE 0.9% 150 ML IVPB SCH (17:18)
[2016-09-04] VITALS (24 sets, daily range): BP systolic 126–138; BP diastolic 65–92; PULSE 97–107; RESP 17–30
[2016-09-04] MEDS: PANTOPRAZOLE IV 80 MG in SOD CHLORIDE 0.9% 100 ML IV SCH ×3 (00:29→19:42)
[2016-09-04] MEDS: MUPIROCIN 2% 22 GM OINT TOP SCH ×3 (00:29→22:38)
[2016-09-04] MEDS: PIPER-TAZO 3.375 GM IV (PMX) 100 ML IVPB SCH ×5 (00:29→23:24)
[2016-09-04] MEDS: VANCOMYCIN 750 MG in SOD CHLORIDE 0.9% 150 ML IVPB SCH ×2 (05:18→16:55)
[2016-09-04] MEDS: SOD CHLORIDE 0.45% 1,000 ML IV SCH ×2 (06:30→12:12)
[2016-09-04 07:43] LABS: POTASSIUM 3.6 mmol/L (3.5-5.1)
[2016-09-04 07:46] LABS: CREATININE 0.59 mg/dl (0.61-1.24)
[2016-09-04 07:47] LABS: CALCIUM 8.8 mg/dl (8.4-10.2)
[2016-09-04] MEDS: COLLAGENASE 30 GM TUBE TOP SCH (08:16)
[2016-09-04 08:35] LABS: BASOPHILS % 0.1 % (0.0-2.0); EOSINOPHILS % 0.3 % (0.0-7.0); HEMATOCRIT 34.2 % (42.0-52.0); HEMOGLOBIN 10.6 g/dl (14.0-18.0); LYMPHOCYTES # 1.7 10^3/ul (0.8-2.9); LYMPHOCYTES % 10.3 % (15.0-51.0); MEAN CORPUSCULAR HEMOGLOBIN 26.1 pg (29.0-33.0); MEAN CORPUSCULAR VOLUME 84.2 fl (82.0-101.0); MONOCYTE # 1.7 10^3/ul (0.3-0.9); MONOCYTES % 10.5 % (0.0-11.0); NEUTROPHIL # 12.5 10^3/ul (1.6-7.5); NEUTROPHILS % 77.9 % (39.0-77.0); NUCLEATED RED BLOOD CELLS% 0.1 /100WBC (0.0-0.0); PLATELET COUNT 256 10^3/UL (140-440); RED BLOOD COUNT 4.06 10^6/ul (4.70-6.10); RED CELL DISTRIBUTION WIDTH 19.9 % (11.5-14.5)
--- NOTE | 2016-09-04 09:49 | CONS ---
Date/Time of Note Date/Time of Note DATE: 09/04/16 TIME: 09:46 Assessment/Plan Assessment/Plan Chief Complaint/Hosp Course assessment/impression - bacteremia due to S. 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 If no Gram negatives or anaerobes, will d/c it - will adjust his antibiotics based on the final results of cultures Problems: Consultation Date/Type/Reason Admit Date/Time Aug 31, 2016 at 14:59 Initial Consult Date 09/01/16 Type of Consultation: ID Referring Provider: MARIO ROWE 24 HR Interval Summary Subjective hx not possible: pt non-verbal Exam/Review of Systems Vital Signs Vitals Vital Signs Date Time Temp Pulse Resp B/P Pulse Ox O2 Delivery O2 Flow Rate FiO2 09/04/16 09:05 95 18 95 40 09/04/16 07:20 98.4 129/82 09/01/16 20:20 Mechanical Ventilator Intake and Output 09/03/16 09/03/16 09/04/16 15:00 23:00 07:00 Intake Total 0 ml Output Total 400 ml Balance -400 ml Exam Constitutional: frail, non-verbal Psych: confusion Head: other (temporal wasting) Eyes: nl lids, nl sclera ENMT: other (NGT) Neck: other (trach) Respiratory: diminished breath sounds Cardiovascular: nl pulses, regular rate and rhythm Gastrointestinal: non-tender, other (wound of the former G tube insertion site) , soft Musculoskeletal: other (muscular atrophy) Extremities: No edema Neurological: confused Skin: rash or lesions (abd wall, RLE) Results Result Diagram: 09/04/16 0540 09/04/16 0540 Results 24 hrs Laboratory Tests Test 09/03/16 16:45 09/04/16 05:40 Magnesium Level 2.0 Anion Gap 20 H Basophils # 0.0 Basophils % 0.1 Blood Urea Nitrogen 19 # Calcium Level 8.8 Carbon Dioxide Level 25 Chloride Level 110 Creatinine 0.59 L Eosinophils # 0.0 Eosinophils % 0.3 Glucose Level 99 Hematocrit 34.2 L Hemoglobin 10.6 L Lymphocytes # 1.7 Lymphocytes % 10.3 L Mean Corpuscular Hemoglobin 26.1 L Mean Corpuscular Hemoglobin Concent 31.0 L Mean Corpuscular Volume 84.2 Mean Platelet Volume Monocytes # 1.7 H Monocytes % 10.5 Neutrophils # 12.5 H Neutrophils % 77.9 H Nucleated Red Blood Cells # 0.0 Nucleated Red Blood Cells % 0.1 H Platelet Count 256 Potassium Level 3.6 Red Blood Count 4.06 L Red Cell Distribution Width 19.9 H Sodium Level 151 H White Blood Count 16.0 H Medications Medications Current Medications Sodium Chloride 1,000 ml @ 100 mls/hr Q10H IV Last administered on 09/03/16 16 :25; Admin Dose 100 MLS/HR; Start 08/31/16 at 22:30 Pantoprazole/ Sodium Chloride (Protonix Iv/NS) 100 ml @ 10 mls/hr Q10H IV Last administered on 09/04/16 09:22; Admin Dose 10 MLS/HR; Start 09/01/16 at 21: 00 Mupirocin (Bactroban) 1 applic BID TOP Last administered on 09/04/16 08:15; Admin Dose 1 APPLIC; Start 09/02/16 at 12:00 Collagenase 1 applic 1 applic DAILY TOP Last administered on 09/04/16 08:16; Admin Dose 1 APPLIC; Start 09/02/16 at 11:30 Piperacillin Sod/ Tazobactam Sod 100 ml @ 100 mls/hr Q6 IVPB Last administered on 09/04/16 07:04; Admin Dose 100 MLS/HR; Start 09/02/16 at 12:00 Vancomycin HCl/ Sodium Chloride (Vancocin/NS) 150 ml @ 75 mls/hr Q12H IVPB Last administered on 09/04/16t 05:18; Admin Dose 75 MLS/HR; Start 09/03/16 at 16: 00 Miscellaneous Information (*Rx Drug Level Order Reminder*) 1 ONCE ONCE XX ; Start 09/04/16 at 15:00; Stop 09/04/16 at 15:01 LIZZY HECK M.D. Sep 04, 2016 09:49
--- NOTE | 2016-09-04 11:55 | PN ---
Date/Time of Note Date/Time of Note DATE: 09/04/16 TIME: 11:55 Assessment/Plan VTE Prophylaxis VTE Prophylaxis Intervention: other Lines/Catheters IV Catheter Type (from Nrs): Peripheral IV Urinary Cath still in place: Yes Reason Cath still needed: skin wounds contaminated by urine Assessment/Plan Chief Complaint/Hosp Course 1. Upper gastrointestinal bleeding secondary to gastrostomy site ulcer disease. Continue Protonix. Dr. Pryor is following the patient in gastroenterology consultation. Continue IV fluids. 2. Dehydration secondary to vomiting. 3. Sepsis with Staph bacteremia. Dr Godfrey is following in ID consultation. Co ntinue abx per ID. 4. 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 5. Ventilator-dependent respiratory failure with tracheostomy. Dr. Morrison is following from pulmonology standpoint. Continue bronchodilators and pulmonary toilet. 5. Dysphagia with G-tube. 6. Chronic obstructive pulmonary disease. 7. Chronic Chaudhari catheter. 8. Colostomy 9. Hypertension. 10. Bedbound status. 11. Acute kidney injury. Continue to monitor BUN and creatinine. Continue IV fluids. 12 MRSA UTI , continue Vanco. Problems: Subjective 24 Hr Interval Summary Free Text/Dictation Patient is sedated and ventilated via trach Exam/Review of Systems Vital Signs Vitals Vital Signs Date Time Temp Pulse Resp B/P Pulse Ox O2 Delivery O2 Flow Rate FiO2 09/04/16 11:07 97.9 99 18 128/81 100 09/04/16 11:00 40 09/01/16 20:20 Mechanical Ventilator Intake and Output 09/03/16 09/03/16 09/04/16 15:00 23:00 07:00 Intake Total 0 ml Output Total 400 ml Balance -400 ml Exam Constitutional: well developed Head: atraumatic, normocephalic Respiratory: diminished breath sounds Cardiovascular: regular rate and rhythm Gastrointestinal: non-tender, soft Results Result Diagram: 09/04/16 0540 09/04/16 0540 Results 24 hrs Laboratory Tests Test 09/03/16 16:45 09/04/16 05:40 Magnesium Level 2.0 Anion Gap 20 H Basophils # 0.0 Basophils % 0.1 Blood Urea Nitrogen 19 # Calcium Level 8.8 Carbon Dioxide Level 25 Chloride Level 110 Creatinine 0.59 L Eosinophils # 0.0 Eosinophils % 0.3 Glucose Level 99 Hematocrit 34.2 L Hemoglobin 10.6 L Lymphocytes # 1.7 Lymphocytes % 10.3 L Mean Corpuscular Hemoglobin 26.1 L Mean Corpuscular Hemoglobin Concent 31.0 L Mean Corpuscular Volume 84.2 Mean Platelet Volume Monocytes # 1.7 H Monocytes % 10.5 Neutrophils # 12.5 H Neutrophils % 77.9 H Nucleated Red Blood Cells # 0.0 Nucleated Red Blood Cells % 0.1 H Platelet Count 256 Potassium Level 3.6 Red Blood Count 4.06 L Red Cell Distribution Width 19.9 H Sodium Level 151 H White Blood Count 16.0 H Medications Medications Current Medications Sodium Chloride 1,000 ml @ 100 mls/hr Q10H IV Last administered on 09/03/16 16 :25; Admin Dose 100 MLS/HR; Start 08/31/16 at 22:30 Pantoprazole/ Sodium Chloride (Protonix Iv/NS) 100 ml @ 10 mls/hr Q10H IV Last administered on 09/04/16 09:22; Admin Dose 10 MLS/HR; Start 09/01/16 at 21: 00 Mupirocin (Bactroban) 1 applic BID TOP Last administered on 09/04/16 08:15; Admin Dose 1 APPLIC; Start 09/02/16 at 12:00 Collagenase 1 applic 1 applic DAILY TOP Last administered on 09/04/16 08:16; Admin Dose 1 APPLIC; Start 09/02/16 at 11:30 Piperacillin Sod/ Tazobactam Sod 100 ml @ 100 mls/hr Q6 IVPB Last administered on 09/04/16 07:04; Admin Dose 100 MLS/HR; Start 09/02/16 at 12:00 Vancomycin HCl/ Sodium Chloride (Vancocin/NS) 150 ml @ 75 mls/hr Q12H IVPB Last administered on 09/04/16 05:18; Admin Dose 75 MLS/HR; Start 09/03/16 at 16: 00 Miscellaneous Information (*Rx Drug Level Order Reminder*) 1 ONCE ONCE XX ; Start 09/04/16 at 15:00; Stop 09/04/16 at 15:01 OLI ZUNIGA Sep 04, 2016 11:55
--- NOTE | 2016-09-04 15:41 | PN ---
DATE: 09/04/2016 The patient remains stable. No new events. PHYSICAL EXAMINATION: VITAL SIGNS: Temperature 98, pulse 100, blood pressure 128/81, O2 saturation 99% on FIO2 of 40%. NECK: Trach site is clean and intact. CARDIAC EXAM: S1, S2. No added sounds or murmurs. CHEST: Diminished air entry bilaterally. No rales or wheezes. ABDOMEN: Soft, nontender. No guarding or rebound. EXTREMITIES: No cyanosis, clubbing. NEUROLOGIC: Some generalized weakness. LABORATORY: White count 16.0, hemoglobin 10.6, platelets 256. BUN 19, creatinine 0.59. Sodium 151 . IMPRESSION AND PLAN: 1. Vent-dependent respiratory failure. 2. Anoxic encephalopathy. 3. Hypernatremia. 4. Polymicrobial sepsis. 5. Questionable history of underlying chronic obstructive pulmonary disease. PLAN: 1. Continue tube feedings. 2. Continue vent support. 3. Consider increasing free water. 4. DVT and GI prophylaxis. 5. Infectious disease recommendations. Dictated By: YU JONES/MACK Conf#: [id number] DID#: [id number]
--- NOTE | 2016-09-04 15:46 | PN ---
Date/Time of Note Date/Time of Note DATE: 09/04/16 TIME: 15:42 Assessment/Plan VTE Prophylaxis VTE Prophylaxis Intervention: contraindicated, other Lines/Catheters IV Catheter Type (from Nrs): Assessment/Plan Chief Complaint/Hosp Course #1 status post removal of the gastrostomy #2 no bleeding noted from the gastrostomy #3 hemoglobin is stable number for continue nasogastric suction pl Recommend continue nasogastric suction antibiotic therapy Proton pump inhibitor therapy Problems: Assessment/Plan Continue current management Subjective 24 Hr Interval Summary Free Text/Dictation Patient intubated and able to communicate No evidence of bleeding Exam/Review of Systems Vital Signs Vitals Vital Signs Date Time Temp Pulse Resp B/P Pulse Ox O2 Delivery O2 Flow Rate FiO2 09/04/16 15:05 98.7 56 21 136/92 97 09/04/16 13:04 40 09/01/16 20:20 Mechanical Ventilator Intake and Output 09/03/16 09/03/16 09/04/16 15:00 23:00 07:00 Intake Total 0 ml Output Total 400 ml Balance -400 ml Exam Patient is intubated and nonverbal Examination of the abdomen showed evidence of gastrostomy opening not showing any bleeding Seems to be healing slowly Hemoglobin around 10 g stable Results Result Diagram: 09/04/16 0540 09/04/16 0540 Results 24 hrs Laboratory Tests Test 09/03/16 16:45 09/04/16 05:40 Magnesium Level 2.0 Anion Gap 20 H Basophils # 0.0 Basophils % 0.1 Blood Urea Nitrogen 19 # Calcium Level 8.8 Carbon Dioxide Level 25 Chloride Level 110 Creatinine 0.59 L Eosinophils # 0.0 Eosinophils % 0.3 Glucose Level 99 Hematocrit 34.2 L Hemoglobin 10.6 L Lymphocytes # 1.7 Lymphocytes % 10.3 L Mean Corpuscular Hemoglobin 26.1 L Mean Corpuscular Hemoglobin Concent 31.0 L Mean Corpuscular Volume 84.2 Mean Platelet Volume Monocytes # 1.7 H Monocytes % 10.5 Neutrophils # 12.5 H Neutrophils % 77.9 H Nucleated Red Blood Cells # 0.0 Nucleated Red Blood Cells % 0.1 H Platelet Count 256 Potassium Level 3.6 Red Blood Count 4.06 L Red Cell Distribution Width 19.9 H Sodium Level 151 H White Blood Count 16.0 H Medications Medications Current Medications Sodium Chloride 1,000 ml @ 100 mls/hr Q10H IV Last administered on 09/04/16 12 :12; Admin Dose 100 MLS/HR; Start 08/31/16 at 22:30 Pantoprazole/ Sodium Chloride (Protonix Iv/NS) 100 ml @ 10 mls/hr Q10H IV Last administered on 09/04/16 09:22; Admin Dose 10 MLS/HR; Start 09/01/16 at 21: 00 Mupirocin (Bactroban) 1 applic BID TOP Last administered on 09/04/16 08:15; Admin Dose 1 APPLIC; Start 09/02/16 at 12:00 Collagenase 1 applic 1 applic DAILY TOP Last administered on 09/04/16 08:16; Admin Dose 1 APPLIC; Start 09/02/16 at 11:30 Piperacillin Sod/ Tazobactam Sod 100 ml @ 100 mls/hr Q6 IVPB Last administered on 09/04/16 12:11; Admin Dose 100 MLS/HR; Start 09/02/16 at 12:00 Vancomycin HCl/ Sodium Chloride (Vancocin/NS) 150 ml @ 75 mls/hr Q12H IVPB Last administered on 09/04/16 05:18; Admin Dose 75 MLS/HR; Start 09/03/16 at 16: 00 KATELYN SILVERMAN MD Sep 04, 2016 15:46
[2016-09-05] VITALS (24 sets, daily range): BP systolic 116–137; BP diastolic 61–79; PULSE 96–115; RESP 18–28
[2016-09-05] MEDS: SOD CHLORIDE 0.45% 1,000 ML IV SCH (03:54)
[2016-09-05] MEDS: VANCOMYCIN 1 GM in NS 250 ML IVPB SCH ×2 (04:10→16:30)
[2016-09-05] MEDS: PANTOPRAZOLE IV 80 MG in SOD CHLORIDE 0.9% 100 ML IV SCH ×3 (05:26→16:32)
[2016-09-05] MEDS: PIPER-TAZO 3.375 GM IV (PMX) 100 ML IVPB SCH (05:26)
[2016-09-05 06:50] LABS: BASOPHILS % 0.1 % (0.0-2.0); EOSINOPHILS % 0.2 % (0.0-7.0); HEMATOCRIT 36.1 % (42.0-52.0); HEMOGLOBIN 11.5 g/dl (14.0-18.0); LYMPHOCYTES # 1.7 10^3/ul (0.8-2.9); LYMPHOCYTES % 9.5 % (15.0-51.0); MEAN CORPUSCULAR HEMOGLOBIN 26.8 pg (29.0-33.0); MEAN CORPUSCULAR HGB CONC 31.8 g/dl (32.0-37.0); MEAN CORPUSCULAR VOLUME 84.3 fl (82.0-101.0); MEAN PLATELET VOLUME 12.5 fl (7.4-10.4); MONOCYTE # 1.5 10^3/ul (0.3-0.9); MONOCYTES % 8.1 % (0.0-11.0); NEUTROPHIL # 15.1 10^3/ul (1.6-7.5); NEUTROPHILS % 82.1 % (39.0-77.0); PLATELET COUNT 270 10^3/UL (140-440); RED BLOOD COUNT 4.28 10^6/ul (4.70-6.10); RED CELL DISTRIBUTION WIDTH 19.6 % (11.5-14.5); UNCORRECTED WBC 18.4 10^3/ul (4.8-10.8); WHITE BLOOD COUNT 18.4 10^3/ul (4.8-10.8)
[2016-09-05 06:55] LABS: CONDITION 1; LH ANALYZER COMMENTS 1; SUSPECT 1
[2016-09-05 07:33] LABS: CREATININE 0.54 mg/dl (0.61-1.24)
[2016-09-05] MEDS: MUPIROCIN 2% 22 GM OINT TOP SCH ×2 (09:04→21:30)
[2016-09-05] MEDS: COLLAGENASE 30 GM TUBE TOP SCH (09:21)
--- NOTE | 2016-09-05 09:42 | CONS ---
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 the wound culture grew carbapenemase producing kleb, enterococci and pseudo - leakage of gastric contents from GT site - infection of wound of RLE due to pseudomonas. 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 - h/o thrush - HCV infection - colostomy status recommendations - continue IV vancomycin (09/02/2016-) - change IV pip/tazo (09/01/2016-) to meropenem (instead of imipenem due to h/o seizure 09/05/2016-) - start levofloxacin (09/05/2016-), at least carbapenemase producing kleb is intermediate to levo in vitro - I am giving all meds by IV because Pt's gastric contents are found leaking from GT site management d/w Pt's RN Problems: Consultation Date/Type/Reason Admit Date/Time Aug 31, 2016 at 14:59 Initial Consult Date 09/01/16 Type of Consultation: ID Referring Provider: MARIO ROWE 24 HR Interval Summary Subjective hx not possible: pt non-verbal Exam/Review of Systems Vital Signs Vitals Vital Signs Date Time Temp Pulse Resp B/P Pulse Ox O2 Delivery O2 Flow Rate FiO2 09/05/16 09:25 115 09/05/16 07:45 97.7 18 137/75 95 09/05/16 05:18 40 09/01/16 20:20 Mechanical Ventilator Intake and Output 09/04/16 09/04/16 09/05/16 14:59 22:59 06:59 Intake Total 0 ml 1650 ml Output Total 350 ml 300 ml 200 ml Balance -350 ml -300 ml 1450 ml Exam Constitutional: frail, non-verbal Psych: confusion Head: atraumatic, normocephalic Eyes: nl conjunctiva, nl lids ENMT: nl external ears & nose, nl nasal mucosa & septum Neck: other (trach) Respiratory: diminished breath sounds Cardiovascular: nl pulses, regular rate and rhythm Gastrointestinal: soft, No non-tender Musculoskeletal: other (muscular atrophy) Extremities: No edema Neurological: confused, lethargic Skin: rash or lesions (RLE wound) Results Result Diagram: 09/05/16 0538 09/05/16 0535 Results 24 hrs Laboratory Tests Test 09/04/16 15:13 09/05/16 05:35 09/05/16 05:38 Vancomycin Level Trough 11.5 Anion Gap 21 H Blood Urea Nitrogen 15 Calcium Level 9.0 Carbon Dioxide Level 25 Chloride Level 109 Creatinine 0.54 L Glucose Level 98 Potassium Level 3.0 L Sodium Level 152 H Basophils # 0.0 Basophils % 0.1 Blood Morphology Comment Eosinophils # 0.0 Eosinophils % 0.2 Hematocrit 36.1 L Hemoglobin 11.5 L Lymphocytes # 1.7 Lymphocytes % 9.5 L Mean Corpuscular Hemoglobin 26.8 L Mean Corpuscular Hemoglobin Concent 31.8 L Mean Corpuscular Volume 84.3 Mean Platelet Volume 12.5 H Monocytes # 1.5 H Monocytes % 8.1 Neutrophils # 15.1 H Neutrophils % 82.1 H Nucleated Red Blood Cells # 0.0 Nucleated Red Blood Cells % 0.0 Platelet Count 270 Red Blood Count 4.28 L Red Cell Distribution Width 19.6 H White Blood Count 18.4 H Medications Medications Current Medications Pantoprazole/ Sodium Chloride (Protonix Iv/NS) 100 ml @ 10 mls/hr Q10H IV Last administered on 09/05/16 05:26; Admin Dose 10 MLS/HR; Start 09/01/16 at 21: 00 Mupirocin (Bactroban) 1 applic BID TOP Last administered on 09/05/16 09:04; Admin Dose 1 APPLIC; Start 09/02/16 at 12:00 Collagenase 1 applic 1 applic DAILY TOP Last administered on 09/05/16 09:21; Admin Dose 1 APPLIC; Start 09/02/16 at 11:30 Piperacillin Sod/ Tazobactam Sod 100 ml @ 100 mls/hr Q6 IVPB Last administered on 09/05/16 05:26; Admin Dose 100 MLS/HR; Start 09/02/16 at 12:00 Vancomycin HCl 250 ml @ 125 mls/hr Q12H IVPB Last administered on 09/05/16 04: 10; Admin Dose 125 MLS/HR; Start 09/05/16 at 04:00 Potassium Chloride/Sodium Chloride (KCl/1/2 NS) 1,020 ml @ 100 mls/hr [id number] IV ; Start 09/05/16 at 09:30 LIZZY HECK M.D. Sep 05, 2016 09:42
[2016-09-05] MEDS: LEVOFLOXACIN 750MG/D5W (PMX) 150 ML IVPB SCH (11:06)
[2016-09-05] MEDS: POTASSIUM CHLORIDE 40 MEQ in SOD CHLORIDE 0.45% 1,000 ML IV SCH (11:06)
--- NOTE | 2016-09-05 11:27 | PN ---
Date/Time of Note Date/Time of Note DATE: 09/05/16 TIME: 11:27 Assessment/Plan VTE Prophylaxis VTE Prophylaxis Intervention: other Lines/Catheters IV Catheter Type (from Nrs): Peripheral IV Urinary Cath still in place: Yes Reason Cath still needed: skin wounds contaminated by urine Assessment/Plan Chief Complaint/Hosp Course 1. Upper gastrointestinal bleeding secondary to gastrostomy site ulcer disease. Continue Protonix. Dr. Pryor is following the patient in gastroenterology consultation. Continue IV fluids. 2. Dehydration secondary to vomiting. 3. Sepsis with Staph bacteremia. Dr Godfrey is following in ID consultation. Co ntinue abx per ID. 4. 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 5. Ventilator-dependent respiratory failure with tracheostomy. Dr. Morrison is following from pulmonology standpoint. Continue bronchodilators and pulmonary toilet. 5. Dysphagia with G-tube. 6. Chronic obstructive pulmonary disease. 7. Chronic Chaudhari catheter. 8. Colostomy 9. Hypertension. 10. Bedbound status. 11. Acute kidney injury. Continue to monitor BUN and creatinine. Continue IV fluids. 12 MRSA UTI , continue Vanco. Problems: Subjective 24 Hr Interval Summary Free Text/Dictation Patient sedated and ventilated via trach Exam/Review of Systems Vital Signs Vitals Vital Signs Date Time Temp Pulse Resp B/P Pulse Ox O2 Delivery O2 Flow Rate FiO2 09/05/16 11:20 104 26 96 40 09/05/16 10:46 97.9 119/79 09/01/16 20:20 Mechanical Ventilator Intake and Output 09/04/16 09/04/16 09/05/16 15:00 23:00 07:00 Intake Total 0 ml 1650 ml Output Total 350 ml 300 ml 200 ml Balance -350 ml -300 ml 1450 ml Exam Constitutional: well developed Head: atraumatic, normocephalic Neck: supple Respiratory: diminished breath sounds Cardiovascular: regular rate and rhythm Gastrointestinal: non-tender, soft Extremities: normal pulses Results Result Diagram: 09/05/16 0538 09/05/16 0535 Results 24 hrs Laboratory Tests Test 09/04/16 15:13 09/05/16 05:35 09/05/16 05:38 Vancomycin Level Trough 11.5 Anion Gap 21 H Blood Urea Nitrogen 15 Calcium Level 9.0 Carbon Dioxide Level 25 Chloride Level 109 Creatinine 0.54 L Glucose Level 98 Potassium Level 3.0 L Sodium Level 152 H Basophils # 0.0 Basophils % 0.1 Blood Morphology Comment Eosinophils # 0.0 Eosinophils % 0.2 Hematocrit 36.1 L Hemoglobin 11.5 L Lymphocytes # 1.7 Lymphocytes % 9.5 L Mean Corpuscular Hemoglobin 26.8 L Mean Corpuscular Hemoglobin Concent 31.8 L Mean Corpuscular Volume 84.3 Mean Platelet Volume 12.5 H Monocytes # 1.5 H Monocytes % 8.1 Neutrophils # 15.1 H Neutrophils % 82.1 H Nucleated Red Blood Cells # 0.0 Nucleated Red Blood Cells % 0.0 Platelet Count 270 Red Blood Count 4.28 L Red Cell Distribution Width 19.6 H White Blood Count 18.4 H Medications Medications Current Medications Pantoprazole/ Sodium Chloride (Protonix Iv/NS) 100 ml @ 10 mls/hr Q10H IV Last administered on 09/05/16 05:26; Admin Dose 10 MLS/HR; Start 09/01/16 at 21: 00 Mupirocin (Bactroban) 1 applic BID TOP Last administered on 09/05/16 09:04; Admin Dose 1 APPLIC; Start 09/02/16 at 12:00 Collagenase 1 applic 1 applic DAILY TOP Last administered on 09/05/16 09:21; Admin Dose 1 APPLIC; Start 09/02/16 at 11:30 Vancomycin HCl 250 ml @ 125 mls/hr Q12H IVPB Last administered on 09/05/16 04: 10; Admin Dose 125 MLS/HR; Start 09/05/16 at 04:00 Potassium Chloride 40 meq/ Sodium Chloride 1,020 ml @ 100 mls/hr [id number] IV Last administered on 09/05/16 11:06; Admin Dose 100 MLS/HR; Start 09/05/16 at 09: 30 Meropenem 100 ml @ 200 mls/hr Q8 IVPB ; Start 09/05/16 at 13:00 Levofloxacin/ Dextrose (Levaquin 750 Mg/ D5W 150 ml (Pmx)) 150 ml @ 100 mls/hr Q24H IVPB Last administered on 09/05/16 11:06; Admin Dose 100 MLS/HR; Start 09/05/16 at 11:30 OLI ZUNIGA Sep 05, 2016 11:27
[2016-09-05] MEDS ORDERED: MEROPENEM 1 GM/100 ML (PMX) 100 ML IVPB SCH (13:00)
[2016-09-05] MEDS: MEROPENEM 1 GM/100 ML (PMX) 100 ML IVPB SCH ×2 (14:21→22:39)
--- NOTE | 2016-09-05 15:35 | CONS ---
Date/Time of Note Date/Time of Note DATE: 09/05/16 TIME: 15:34 Consult Date/Type/Reason Admit Date/Time Aug 31, 2016 at 14:59 Initial Consult Date 09/02/16 Type of Consultation: Pulm Ordering Provider: MARIO ROWE Subjective Comfortable No new events. Objective Vital Signs Date Time Temp Pulse Resp B/P Pulse Ox O2 Delivery O2 Flow Rate FiO2 09/05/16 15:10 98.5 77 18 121/78 98 09/05/16 13:22 40 09/01/16 20:20 Mechanical Ventilator Intake and Output 09/04/16 09/04/16 09/05/16 15:00 23:00 07:00 Intake Total 0 ml 1650 ml Output Total 350 ml 300 ml 200 ml Balance -350 ml -300 ml 1450 ml PHYSICAL EXAMINATION: VITAL SIGNS: as above NECK: Trach site is clean and intact. CARDIAC EXAM: S1, S2. No added sounds or murmurs. CHEST: Diminished air entry bilaterally. No rales or wheezes. ABDOMEN: Soft, nontender. No guarding or rebound. EXTREMITIES: No cyanosis, clubbing. NEUROLOGIC: Some generalized weakness. Results/Medications Result Diagram: 09/05/16 0538 09/05/16 0535 Results 24 hrs Laboratory Tests Test 09/05/16 05:35 09/05/16 05:38 Anion Gap 21 H Blood Urea Nitrogen 15 Calcium Level 9.0 Carbon Dioxide Level 25 Chloride Level 109 Creatinine 0.54 L Glucose Level 98 Potassium Level 3.0 L Sodium Level 152 H Basophils # 0.0 Basophils % 0.1 Blood Morphology Comment Eosinophils # 0.0 Eosinophils % 0.2 Hematocrit 36.1 L Hemoglobin 11.5 L Lymphocytes # 1.7 Lymphocytes % 9.5 L Mean Corpuscular Hemoglobin 26.8 L Mean Corpuscular Hemoglobin Concent 31.8 L Mean Corpuscular Volume 84.3 Mean Platelet Volume 12.5 H Monocytes # 1.5 H Monocytes % 8.1 Neutrophils # 15.1 H Neutrophils % 82.1 H Nucleated Red Blood Cells # 0.0 Nucleated Red Blood Cells % 0.0 Platelet Count 270 Red Blood Count 4.28 L Red Cell Distribution Width 19.6 H White Blood Count 18.4 H Medications Current Medications Pantoprazole/ Sodium Chloride (Protonix Iv/NS) 100 ml @ 10 mls/hr Q10H IV Last administered on 09/05/16 05:26; Admin Dose 10 MLS/HR; Start 09/01/16 at 21: 00 Mupirocin (Bactroban) 1 applic BID TOP Last administered on 09/05/16 09:04; Admin Dose 1 APPLIC; Start 09/02/16 at 12:00 Collagenase 1 applic 1 applic DAILY TOP Last administered on 09/05/16 09:21; Admin Dose 1 APPLIC; Start 09/02/16 at 11:30 Vancomycin HCl 250 ml @ 125 mls/hr Q12H IVPB Last administered on 09/05/16 04: 10; Admin Dose 125 MLS/HR; Start 09/05/16 at 04:00 Potassium Chloride 40 meq/ Sodium Chloride 1,020 ml @ 100 mls/hr [id number] IV Last administered on 09/05/16 11:06; Admin Dose 100 MLS/HR; Start 09/05/16 at 09: 30 Levofloxacin/ Dextrose (Levaquin 750 Mg/ D5W 150 ml (Pmx)) 150 ml @ 100 mls/hr Q24H IVPB Last administered on 09/05/16 11:06; Admin Dose 100 MLS/HR; Start 09/05/16 at 11:30 Miscellaneous Information VANCOMYCIN TROUGH 09/06 AT 1500 ONCE ONCE XX ; Start at 15:00; Stop 09/06/16 at 15:01 Meropenem (Merrem 1 Gm/100 ml (Pmx)) 100 ml @ 200 mls/hr Q8 IVPB Last administered on 09/05/16 14:21; Admin Dose 200 MLS/HR; Start 09/05/16 at 13:00 Assessment/Plan Chief Complaint/Hosp Course IMPRESSION AND PLAN: 1. Vent-dependent respiratory failure. 2. Anoxic encephalopathy. 3. Hypernatremia. 4. Polymicrobial sepsis. 5. Questionable history of underlying chronic obstructive pulmonary disease. PLAN: 1. Continue tube feedings. 2. Continue vent support. 3. Consider increasing free water. 4. DVT and GI prophylaxis. 5. Infectious disease recommendations. Problems: YU ELLSWORTH MD, [facility] Sep 05, 2016 15:35
[2016-09-06] VITALS (24 sets, daily range): BP systolic 129–148; BP diastolic 78–94; PULSE 98–114; RESP 17–26
[2016-09-06] MEDS: POTASSIUM CHLORIDE 40 MEQ in SOD CHLORIDE 0.45% 1,000 ML IV SCH ×2 (01:41→05:13)
[2016-09-06] MEDS: PANTOPRAZOLE IV 80 MG in SOD CHLORIDE 0.9% 100 ML IV SCH ×3 (01:41→21:50)
[2016-09-06] MEDS: VANCOMYCIN 1 GM in NS 250 ML IVPB SCH ×2 (04:07→17:16)
[2016-09-06] MEDS: MEROPENEM 1 GM/100 ML (PMX) 100 ML IVPB SCH (05:54)
[2016-09-06] MEDS: COLLAGENASE 30 GM TUBE TOP SCH (09:45)
[2016-09-06] MEDS: MUPIROCIN 2% 22 GM OINT TOP SCH ×2 (09:45→21:50)
--- NOTE | 2016-09-06 10:05 | CONS ---
Date/Time of Note Date/Time of Note DATE: 09/06/16 TIME: 10:01 Assessment/Plan Assessment/Plan Additional Assessment/Plan Assessment and recommendations; 1. Chronic respiratory failure ventilator dependent. 2. History of severe encephalopathy. 3. Severe sepsis with Pseudomonas and Acinetobacter isolated from sputum as well as gram-negative bacteremia. Next 4. Hypernatremia. The current supportive care. Continue current antibiotics. G-tube to be replaced as it was inadvertently pulled out yesterday. Once G-tube is replaced , I would recommend increasing free water to 250 mL every 6 hours. Consultation Date/Type/Reason Admit Date/Time Aug 31, 2016 at 14:59 Initial Consult Date 09/01/16 Type of Consultation: Pulm Referring Provider: MARIO ROWE 24 HR Interval Summary Free Text/Dictation Patient condition remains unchanged. Because of severe anoxic encephalopathy remains completely unresponsive, ventilator dependent. Has remained hemodynamically stable. General examination; elderly male, on mechanical ventilation via tracheostomy unresponsive and currently in no distress. Exam/Review of Systems Vital Signs Vitals Vital Signs Date Time Temp Pulse Resp B/P Pulse Ox O2 Delivery O2 Flow Rate FiO2 09/06/16 09:26 100 09/06/16 08:41 22 95 40 09/06/16 07:47 99.3 138/82 Intake and Output 09/05/16 09/05/16 09/06/16 15:00 23:00 07:00 Intake Total 590 ml Output Total 350 ml 300 ml Balance -350 ml 290 ml Exam HEENT examination; supple neck, no lymphadenopathy. No JVD. He is edentulous. Pupils are small bilaterally. No neck masses. No thyromegaly. Tracheostomy in place. Insertion site is clean. Chest examination; diminished but clear breath sounds bilaterally. S1-S2 audible, no murmurs, regular rate and rhythm. No murmurs. Abdomen examination; scaphoid, G-tube in place, bowel sounds audible. No organomegaly. Extremity examination; no peripheral edema. CRAY FISHING HAND examination; patient remains unresponsive. Ventilator settings; assist control of 16, tidal volume 500, PEEP of 5, 40% FiO2. Results Result Diagram: 09/05/16 0538 09/05/16 0535 Medications Medications Current Medications Pantoprazole/ Sodium Chloride (Protonix Iv/NS) 100 ml @ 10 mls/hr Q10H IV Last administered on 09/06/16 01:41; Admin Dose 10 MLS/HR; Start 09/01/16 at 21: 00 Mupirocin (Bactroban) 1 applic BID TOP Last administered on 09/06/16 09:45; Admin Dose 1 APPLIC; Start 09/02/16 at 12:00 Collagenase 1 applic 1 applic DAILY TOP Last administered on 09/06/16 09:45; Admin Dose 1 APPLIC; Start 09/02/16 at 11:30 Vancomycin HCl 250 ml @ 125 mls/hr Q12H IVPB Last administered on 09/06/16 04: 07; Admin Dose 125 MLS/HR; Start 09/05/16 at 04:00 Potassium Chloride 40 meq/ Sodium Chloride 1,020 ml @ 100 mls/hr [id number] IV Last administered on 09/06/16 01:41; Admin Dose 100 MLS/HR; Start 09/05/16 at 09: 30 Levofloxacin/ Dextrose (Levaquin 750 Mg/ D5W 150 ml (Pmx)) 150 ml @ 100 mls/hr Q24H IVPB Last administered on 09/05/16 11:06; Admin Dose 100 MLS/HR; Start 09/05/16 at 11:30 Miscellaneous Information VANCOMYCIN TROUGH 09/06 AT 1500 ONCE ONCE XX ; Start at 15:00; Stop 09/06/16 at 15:01 Meropenem (Merrem 1 Gm/100 ml (Pmx)) 100 ml @ 200 mls/hr Q8 IVPB Last administered on 09/06/16 05:54; Admin Dose 200 MLS/HR; Start 09/05/16 at 13:00 SHAAN BUTT Sep 06, 2016 10:05
--- NOTE | 2016-09-06 10:54 | CONS ---
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 the wound culture grew carbapenemase producing kleb, enterococci and pseudo - leakage of gastric contents from GT site - infection of wound of RLE due to pseudomonas. 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 I recommend covering MRSA, and bacteria in the abdominal wound and RLE wound - continue IV vancomycin (09/02/2016-) - Based on the final culture results: I recommend changing meropenem to IV tobramycin (09/06/2016-) - continue levofloxacin (09/05/2016-), at least carbapenemase producing kleb is intermediate to levofloxacin in vitro - complete 10 day course of mupirocin for MRSA decolonization (09/02/2016-) Problems: Consultation Date/Type/Reason Admit Date/Time Aug 31, 2016 at 14:59 Initial Consult Date 09/01/16 Type of Consultation: ID Referring Provider: MARIO ROWE 24 HR Interval Summary Subjective hx not possible: pt non-verbal Exam/Review of Systems Vital Signs Vitals Vital Signs Date Time Temp Pulse Resp B/P Pulse Ox O2 Delivery O2 Flow Rate FiO2 09/06/16 09:26 100 09/06/16 09:20 25 95 40 09/06/16 07:47 99.3 138/82 Intake and Output 09/05/16 09/05/16 09/06/16 15:00 23:00 07:00 Intake Total 590 ml Output Total 350 ml 300 ml Balance -350 ml 290 ml Exam Constitutional: frail, non-verbal Psych: confusion Eyes: nl conjunctiva, nl lids ENMT: nl external ears & nose, nl nasal mucosa & septum, other (NGT) Neck: other (trach) Respiratory: crackles/rales Cardiovascular: nl pulses, regular rate and rhythm Gastrointestinal: non-tender, soft Musculoskeletal: other (muscular wasting) Extremities: No edema Neurological: confused, lethargic Skin: rash or lesions (abd wall and RLE: clean) Results Result Diagram: 09/05/16 0538 09/05/16 0535 Medications Medications Current Medications Pantoprazole/ Sodium Chloride (Protonix Iv/NS) 100 ml @ 10 mls/hr Q10H IV Last administered on 09/06/16 01:41; Admin Dose 10 MLS/HR; Start 09/01/16 at 21: 00 Mupirocin (Bactroban) 1 applic BID TOP Last administered on 09/06/16 09:45; Admin Dose 1 APPLIC; Start 09/02/16 at 12:00 Collagenase 1 applic 1 applic DAILY TOP Last administered on 09/06/16 09:45; Admin Dose 1 APPLIC; Start 09/02/16 at 11:30 Vancomycin HCl 250 ml @ 125 mls/hr Q12H IVPB Last administered on 09/06/16 04: 07; Admin Dose 125 MLS/HR; Start 09/05/16 at 04:00 Potassium Chloride 40 meq/ Sodium Chloride 1,020 ml @ 100 mls/hr [id number] IV Last administered on 09/06/16 01:41; Admin Dose 100 MLS/HR; Start 09/05/16 at 09: 30 Levofloxacin/ Dextrose (Levaquin 750 Mg/ D5W 150 ml (Pmx)) 150 ml @ 100 mls/hr Q24H IVPB Last administered on 09/05/16 11:06; Admin Dose 100 MLS/HR; Start 09/05/16 at 11:30 Miscellaneous Information VANCOMYCIN TROUGH 09/06 AT 1500 ONCE ONCE XX ; Start at 15:00; Stop 09/06/16 at 15:01 Meropenem (Merrem 1 Gm/100 ml (Pmx)) 100 ml @ 200 mls/hr Q8 IVPB Last administered on 09/06/16 05:54; Admin Dose 200 MLS/HR; Start 09/05/16 at 13:00 LIZZY HECK M.D. Sep 06, 2016 10:54 LIZZY HECK M.D. Sep 06, 2016 10:54
[2016-09-06] MEDS: LEVOFLOXACIN 750MG/D5W (PMX) 150 ML IVPB SCH (11:35)
[2016-09-06] MEDS ORDERED: TOBRAMYCIN IV PER PHARMACY XX SCH (12:30)
[2016-09-06] MEDS ORDERED: POTASSIUM CHLORIDE 250 ML IVPB ONE (14:00)
[2016-09-06] MEDS ORDERED: TOBRAMYCIN 300 MG in SOD CHLORIDE 0.9% 100 ML IVPB ONE (14:00)
--- NOTE | 2016-09-06 16:55 | PN ---
Date/Time of Note Date/Time of Note DATE: 09/06/16 TIME: 16:54 Assessment/Plan VTE Prophylaxis VTE Prophylaxis Intervention: SCD's Lines/Catheters IV Catheter Type (from Nrs): Peripheral IV Central line still needed: Yes Urinary Cath still in place: Yes Reason Cath still needed: urinary retention Assessment/Plan Chief Complaint/Hosp Course ASSESSMENT AND PLAN: 1. Upper gastrointestinal bleeding secondary to gastrostomy site ulcer disease. Continue Protonix. Dr. Pryor is following the patient in gastroenterology consultation. Continue IV fluids. 2. Dehydration secondary to vomiting. 3. Sepsis with Staph bacteremia. Dr Godfrey is following in ID consultation. Continue abx per ID. 4. 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 5. Ventilator-dependent respiratory failure with tracheostomy. Dr. Morrison is following from pulmonology standpoint. Continue bronchodilators and pulmonary toilet. 5. Dysphagia with G-tube. 6. Chronic obstructive pulmonary disease. 7. Chronic Chaudhari catheter. 8. Colostomy 9. Hypertension. 10. Bedbound status. 11. Acute kidney injury. Continue to monitor BUN and creatinine. Continue IV fluids. 12 MRSA UTI , continue Vanco. 13. Hypernatremia, IV fluids changed to D5W with potassium supplement, continue to monitor electrolytes. 14. Run of SVT, check magnesium, Dr. Oliveros is asked to see patient in cardiology consultation, continue telemetry monitoring. Continue sequential compression device for deep venous thrombosis prophylaxis and Protonix for peptic ulcer disease prophylaxis. Further recommendations based on clinical course. Plan of care discussed with Dr. Meeks. Problems: Subjective 24 Hr Interval Summary Free Text/Dictation Patient had a short run of SVT currently in sinus rhythm, continues NG tube to low intermittent suctioning, continued on IV fluids. Exam/Review of Systems Vital Signs Vitals Vital Signs Date Time Temp Pulse Resp B/P Pulse Ox O2 Delivery O2 Flow Rate FiO2 09/06/16 16:19 98.5 101 22 129/80 99 09/06/16 15:20 40 Intake and Output 09/05/16 09/05/16 09/06/16 15:00 23:00 07:00 Intake Total 590 ml Output Total 350 ml 300 ml Balance -350 ml 290 ml Exam GENERAL: Well-developed, cachectic gentleman currently obtunded on ventilator support via tracheostomy. HEENT: Pupils equal, round, reactive to light and accommodation. NECK: Supple, no cervical lymphadenopathy, no thyromegaly. Tracheostomy the base of the neck with small amount of secretions. LUNGS: Rhonchi bilaterally, slightly diminished at the bases. CARDIOVASCULAR: Normal S1, S2. No murmurs, gallops, clicks, rubs noted. ABDOMEN: Flat, soft, nondistended, nontender. Bowel sounds hypoactive. Patient has left lower quadrant colostomy with pink, moist stoma. GENITOURINARY: The patient also has a Chaudhari catheter. EXTREMITIES: No edema, clubbing, cyanosis. Pulses equal bilaterally 2+. Lower extremities contracted. SKIN: There is no rash, petechiae noted. The patient has a sacral decubitus ulcer stage II. See nursing notes for further description. NEUROLOGIC: Patient does not follow any commands. Results Result Diagram: 09/05/16 0538 09/05/16 0535 Results 24 hrs Laboratory Tests Test 09/06/16 14:50 Vancomycin Level Trough 12.5 Medications Medications Current Medications Pantoprazole/ Sodium Chloride (Protonix Iv/NS) 100 ml @ 10 mls/hr Q10H IV Last administered on 09/06/16 11:35; Admin Dose 10 MLS/HR; Start 09/01/16 at 21: 00 Mupirocin (Bactroban) 1 applic BID TOP Last administered on 09/06/16 09:45; Admin Dose 1 APPLIC; Start 09/02/16 at 12:00 Collagenase 1 applic 1 applic DAILY TOP Last administered on 09/06/16 09:45; Admin Dose 1 APPLIC; Start 09/02/16 at 11:30 Vancomycin HCl 250 ml @ 125 mls/hr Q12H IVPB Last administered on 09/06/16 04: 07; Admin Dose 125 MLS/HR; Start 09/05/16 at 04:00 Levofloxacin/ Dextrose (Levaquin 750 Mg/ D5W 150 ml (Pmx)) 150 ml @ 100 mls/hr Q24H IVPB Last administered on 09/06/16 11:35; Admin Dose 100 MLS/HR; Start 09/05/16 at 11:30 Tobramycin (Tobramycin Iv Per Pharmacy) TOBRAMYCIN PER PHARMACY NOTE XX ; Start 09/06/16 at 12:30 Miscellaneous Information RANDOM TOBRAMYCIN LE... ONCE ONCE XX ; Start 09/07/16 at 01:00; Stop 09/07/16 at 01:01 Potassium Chloride 250 ml @ 62.5 mls/hr ONCE ONCE IVPB Last administered on t 14:33; Admin Dose 62.5 MLS/HR; Start 09/06/16 at 14:00; Stop 09/06/16 at 17:59 Potassium Chloride/Dextrose/ Sod Cl (D5-NS + KCl 20 Meq) 1,000 ml @ 80 mls/hr [id number] IV ; Start 09/06/16 at 16:00 AMY MORAN Sep 06, 2016 16:55
[2016-09-06] MEDS: D5-NS + KCL 20 MEQ 1,000 ML IV SCH (17:16)
[2016-09-07] VITALS (27 sets, daily range): BP systolic 121–143; BP diastolic 76–97; PULSE 95–104; RESP 17–28
[2016-09-07] MEDS ORDERED: [UNRECOGNIZED DRUG - OTHER] XX ONE (01:00)
[2016-09-07] MEDS: VANCOMYCIN 1 GM in NS 250 ML IVPB SCH ×2 (04:18→16:26)
[2016-09-07] MEDS: D5-NS + KCL 20 MEQ 1,000 ML IV SCH ×3 (04:30→17:00)
[2016-09-07] MEDS: PANTOPRAZOLE IV 80 MG in SOD CHLORIDE 0.9% 100 ML IV SCH ×2 (06:10→17:11)
[2016-09-07 07:43] LABS: ALBUMIN 2.6 g/dl (3.3-4.9)
[2016-09-07 07:44] LABS: POTASSIUM 3.4 mmol/L (3.5-5.1)
[2016-09-07 07:46] LABS: CREATININE 0.49 mg/dl (0.61-1.24)
[2016-09-07 07:47] LABS: ALBUMIN/GLOBULIN RATIO 0.66; CALCIUM 8.7 mg/dl (8.4-10.2); TOTAL PROTEIN 6.5 g/dl (6.1-8.1)
[2016-09-07 07:50] LABS: BASOPHILS % 0.1 % (0.0-2.0); EOSINOPHILS % 0.2 % (0.0-7.0); HEMATOCRIT 30.1 % (42.0-52.0); HEMOGLOBIN 9.6 g/dl (14.0-18.0); LYMPHOCYTES # 1.6 10^3/ul (0.8-2.9); LYMPHOCYTES % 10.8 % (15.0-51.0); MEAN CORPUSCULAR HEMOGLOBIN 26.5 pg (29.0-33.0); MEAN CORPUSCULAR HGB CONC 31.7 g/dl (32.0-37.0); MEAN CORPUSCULAR VOLUME 83.7 fl (82.0-101.0); MEAN PLATELET VOLUME 11.7 fl (7.4-10.4); MONOCYTE # 0.8 10^3/ul (0.3-0.9); MONOCYTES % 5.4 % (0.0-11.0); NEUTROPHIL # 12.6 10^3/ul (1.6-7.5); NEUTROPHILS % 83.5 % (39.0-77.0); PLATELET COUNT 361 10^3/UL (140-440); RED CELL DISTRIBUTION WIDTH 19.8 % (11.5-14.5); UNCORRECTED WBC 15.1 10^3/ul (4.8-10.8); WHITE BLOOD COUNT 15.1 10^3/ul (4.8-10.8)
[2016-09-07 07:58] LABS: CONDITION 1; LH ANALYZER COMMENTS 1; SUSPECT 1
[2016-09-07] MEDS: MUPIROCIN 2% 22 GM OINT TOP SCH ×2 (08:12→22:24)
--- NOTE | 2016-09-07 09:57 | CONS ---
Date/Time of Note Date/Time of Note DATE: 09/07/16 TIME: 09:54 Assessment/Plan Assessment/Plan Additional Assessment/Plan Assessment and recommendations; 1. Patient with chronic respiratory failure due to severe anoxic encephalopathy. 2. Sepsis and pneumonia patient currently on Levaquin, tobramycin, meropenem, and vancomycin. 3. Hyponatremia. Currently getting half normal saline and D5 IV. Next 4. Removal of J-tube pending replacement. Continue current treatment. Add free water via NG tube to 50 mL every 6 hours for correction of hyponatremia. Follow I's. The patient has put out only about 630 mL in the last 12 hours of urine that would make diabetes insipidus unlikely. Consultation Date/Type/Reason Admit Date/Time Aug 31, 2016 at 14:59 Initial Consult Date 09/01/16 Type of Consultation: Pulmonary/critical care Referring Provider: MARIO ROWE 24 HR Interval Summary Free Text/Dictation Patient condition remains unchanged. Remains profoundly unresponsive due to severe anoxic encephalopathy. General examination; elderly male appears quite emaciated on mechanical ventilation via tracheostomy, unresponsive. Exam/Review of Systems Vital Signs Vitals Vital Signs Date Time Temp Pulse Resp B/P Pulse Ox O2 Delivery O2 Flow Rate FiO2 09/07/16 08:39 97 09/07/16 07:48 98.1 20 121/76 98 09/07/16 07:15 40 Intake and Output 09/06/16 09/06/16 09/07/16 15:00 23:00 07:00 Intake Total 0 ml Output Total 800 ml 770 ml Balance -800 ml -770 ml Exam HEENT examination; supple neck, no JVD. No lymphadenopathy. Tracheostomy in place with clean insertion site. Patient is edentulous. Next Chest examination; diminished but clear breath sounds. S1-S2 audible, no murmurs. Regular rate and rhythm. Abdomen examination; there is a colostomy in place and a collection bag applied to the prior J-tube site. Abdomen is scaphoid. Bowel sounds audible. Extremity examination; no peripheral edema. [employer]ER examination; patient remains completely unresponsive. Ventilator settings are AC of 16, tidal volume 500, PEEP of 5, 40% FiO2. Results Result Diagram: 09/07/16 0640 09/07/16 0640 Results 24 hrs Laboratory Tests Test 09/06/16 14:50 09/07/16 00:48 09/07/16 06:40 Magnesium Level 1.7 Vancomycin Level Trough 12.5 Random Tobramycin Level 2.3 Alanine Aminotransferase (ALT/SGPT) 21 Albumin 2.6 L Albumin/Globulin Ratio 0.66 Alkaline Phosphatase 66 Anion Gap 17 H Aspartate Amino Transf (AST/SGOT) 18 Basophils # 0.0 Basophils % 0.1 Blood Morphology Comment Blood Urea Nitrogen 10 Calcium Level 8.7 Carbon Dioxide Level 24 Chloride Level 116 H Creatinine 0.49 L Direct Bilirubin 0.00 Eosinophils # 0.0 Eosinophils % 0.2 Globulin 3.90 H Glucose Level 109 Hematocrit 30.1 L Hemoglobin 9.6 L Indirect Bilirubin 0.0 Lymphocytes # 1.6 Lymphocytes % 10.8 L Mean Corpuscular Hemoglobin 26.5 L Mean Corpuscular Hemoglobin Concent 31.7 L Mean Corpuscular Volume 83.7 Mean Platelet Volume 11.7 H Monocytes # 0.8 Monocytes % 5.4 Neutrophils # 12.6 H Neutrophils % 83.5 H Nucleated Red Blood Cells # 0.0 Nucleated Red Blood Cells % 0.0 Platelet Count 361 # Potassium Level 3.4 L Red Blood Count 3.60 L Red Cell Distribution Width 19.8 H Sodium Level 154 H Total Bilirubin 0.0 L Total Protein 6.5 White Blood Count 15.1 H Medications Medications Current Medications Pantoprazole/ Sodium Chloride (Protonix Iv/NS) 100 ml @ 10 mls/hr Q10H IV Last administered on 09/06/16 21:50; Admin Dose 10 MLS/HR; Start 09/01/16 at 21: 00 Mupirocin (Bactroban) 1 applic BID TOP Last administered on 09/07/16 08:12; Admin Dose 1 APPLIC; Start 09/02/16 at 12:00 Collagenase 1 applic 1 applic DAILY TOP Last administered on 09/06/16 09:45; Admin Dose 1 APPLIC; Start 09/02/16 at 11:30 Vancomycin HCl 250 ml @ 125 mls/hr Q12H IVPB Last administered on 09/07/16 04: 18; Admin Dose 125 MLS/HR; Start 09/05/16 at 04:00 Levofloxacin/ Dextrose (Levaquin 750 Mg/ D5W 150 ml (Pmx)) 150 ml @ 100 mls/hr Q24H IVPB Last administered on 2/6/17at 11:35; Admin Dose 100 MLS/HR; Start 09/05/16 at 11:30 Tobramycin TOBRAMYCIN PER PHARMACY NOTE XX ; Start 09/06/16 at 12:30 Potassium Chloride/Dextrose/ Sod Cl (D5-NS + KCl 20 Meq) 1,000 ml @ 80 mls/hr [id number] IV Last administered on 09/06/16t 17:16; Admin Dose 80 MLS/HR; Start 09/06/16 at 16:00 SHAAN BUTT Sep 07, 2016 09:57
[2016-09-07] MEDS: COLLAGENASE 30 GM TUBE TOP SCH (10:01)
--- NOTE | 2016-09-07 10:40 | CONS ---
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 the wound culture grew carbapenemase producing kleb, enterococci and pseudo - leakage of gastric contents from GT site, now has ostomy bag - infection of wound of RLE due to pseudomonas. 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 I recommend covering MRSA, and bacteria in the abdominal wound and RLE wound as much as possible - continue IV vancomycin (09/02/2016-), planned through 09/12/2016 - continue IV tobramycin (09/06/2016-), planned through 09/20/2016 - continue levofloxacin (09/05/2016-), at least carbapenemase producing kleb is intermediate to levofloxacin in vitro, planned through 09/12/2016 - complete 10 day course of mupirocin for MRSA decolonization (09/02/2016-) Problems: Consultation Date/Type/Reason Admit Date/Time Aug 31, 2016 at 14:59 Initial Consult Date 09/01/16 Type of Consultation: ID Referring Provider: MARIO ROWE 24 HR Interval Summary Free Text/Dictation persistent leak from G tube site, ostomy bag is applied Subjective hx not possible: pt non-verbal Exam/Review of Systems Vital Signs Vitals Vital Signs Date Time Temp Pulse Resp B/P Pulse Ox O2 Delivery O2 Flow Rate FiO2 09/07/16 09:00 64 26 96 40 09/07/16 07:48 98.1 121/76 Intake and Output 2/6/17 2/6/17 2/7/17 15:00 23:00 07:00 Intake Total 0 ml Output Total 800 ml 770 ml Balance -800 ml -770 ml Exam Constitutional: frail, non-verbal Psych: confusion Head: atraumatic, other (temporal wasting b/l) Eyes: nl lids ENMT: nl external ears & nose, nl nasal mucosa & septum, other (NGT with blood) Neck: other (trach) Respiratory: crackles/rales Cardiovascular: nl pulses, regular rate and rhythm Gastrointestinal: non-tender, other (G tube site is covered with ostomy bag, colostomy), soft, No mass Genitourinary - Male: other (FC) Musculoskeletal: other (atrophy) Extremities: No edema Neurological: confused, unresponsive Skin: rash or lesions (lateral RLE, dressed) Results Result Diagram: 09/07/16 0640 09/07/16 0640 Results 24 hrs Laboratory Tests Test 09/06/16 14:50 09/07/16 00:48 09/07/16 06:40 Magnesium Level 1.7 Vancomycin Level Trough 12.5 Random Tobramycin Level 2.3 Alanine Aminotransferase (ALT/SGPT) 21 Albumin 2.6 L Albumin/Globulin Ratio 0.66 Alkaline Phosphatase 66 Anion Gap 17 H Aspartate Amino Transf (AST/SGOT) 18 Basophils # 0.0 Basophils % 0.1 Blood Morphology Comment Blood Urea Nitrogen 10 Calcium Level 8.7 Carbon Dioxide Level 24 Chloride Level 116 H Creatinine 0.49 L Direct Bilirubin 0.00 Eosinophils # 0.0 Eosinophils % 0.2 Globulin 3.90 H Glucose Level 109 Hematocrit 30.1 L Hemoglobin 9.6 L Indirect Bilirubin 0.0 Lymphocytes # 1.6 Lymphocytes % 10.8 L Mean Corpuscular Hemoglobin 26.5 L Mean Corpuscular Hemoglobin Concent 31.7 L Mean Corpuscular Volume 83.7 Mean Platelet Volume 11.7 H Monocytes # 0.8 Monocytes % 5.4 Neutrophils # 12.6 H Neutrophils % 83.5 H Nucleated Red Blood Cells # 0.0 Nucleated Red Blood Cells % 0.0 Platelet Count 361 # Potassium Level 3.4 L Red Blood Count 3.60 L Red Cell Distribution Width 19.8 H Sodium Level 154 H Total Bilirubin 0.0 L Total Protein 6.5 White Blood Count 15.1 H Medications Medications Current Medications Pantoprazole/ Sodium Chloride (Protonix Iv/NS) 100 ml @ 10 mls/hr Q10H IV Last administered on 09/06/16 21:50; Admin Dose 10 MLS/HR; Start 09/01/16 at 21: 00 Mupirocin (Bactroban) 1 applic BID TOP Last administered on 09/07/16 08:12; Admin Dose 1 APPLIC; Start 09/02/16 at 12:00 Collagenase 1 applic 1 applic DAILY TOP Last administered on 09/06/16 09:45; Admin Dose 1 APPLIC; Start 09/02/16 at 11:30 Vancomycin HCl 250 ml @ 125 mls/hr Q12H IVPB Last administered on 09/07/16 04: 18; Admin Dose 125 MLS/HR; Start 09/05/16 at 04:00 Levofloxacin/ Dextrose (Levaquin 750 Mg/ D5W 150 ml (Pmx)) 150 ml @ 100 mls/hr Q24H IVPB Last administered on 09/06/16 11:35; Admin Dose 100 MLS/HR; Start 09/05/16 at 11:30 Tobramycin TOBRAMYCIN PER PHARMACY NOTE XX ; Start 09/06/16 at 12:30 Potassium Chloride/Dextrose/ Sod Cl (D5-NS + KCl 20 Meq) 1,000 ml @ 80 mls/hr [id number] IV Last administered on 09/06/16 17:16; Admin Dose 80 MLS/HR; Start 09/06/16 at 16:00 LIZZY HECK M.D. Sep 07, 2016 10:40
[2016-09-07] MEDS: LEVOFLOXACIN 750MG/D5W (PMX) 150 ML IVPB SCH (11:04)
[2016-09-07 14:06] LABS: HEMATOCRIT 29.4 % (42.0-52.0); HEMOGLOBIN 9.2 g/dl (14.0-18.0)
[2016-09-07] MEDS: TOBRAMYCIN 300 MG in SOD CHLORIDE 0.9% 100 ML IVPB SCH (15:14)
--- NOTE | 2016-09-07 16:05 | CONS ---
Date/Time of Note Date/Time of Note DATE: 09/07/16 TIME: 16:00 Assessment/Plan Assessment/Plan Additional Assessment/Plan Intermittent atrial tachycardia Frequent PACs and PVCs Preserved ejection fraction Hematemesis Respiratory failure Encephalopathy -Telemetry reviewed with brief episodes of atrial tachycardia. Patient currently with NG tube to suction secondary to hematemesis. Patient also with hypokalemia and low magnesium. Would supplement potassium to maintain above 4.0 and magnesium to maintain above 2.0. Continue telemetry monitoring. If become more frequent even after election light supplementation, would consider a trial of AV carly blocking agents if no contraindication. Consultation Date/Type/Reason Admit Date/Time Aug 31, 2016 at 14:59 Type of Consultation: cv Reason for Consultation Arrhythmia Hx of Present Illness This is a 71-year-old male with history of tracheostomy, encephalopathy secondary to intracranial bleed who presented with hematemesis. Patient undergoing evaluation and treatment by GI service as well as infectious disease and pulmonary. Patient noted to have episodes of tachycardia on telemetry and for this reason cardiology consultation was requested. Unfortunate patient able to give history secondary to mental status information obtained from the chart and medical records. Unable to be performed with the current time given patient's mental status Constitutional: requiring IVF, requiring O2 Psychological: confusion Past Medical History Medical History: GI bleed, other (chronic encephalopathy, vent, G tube dependent, Q TB gold positive status of unknown duration, colostomy) Past Surgical History Tracheostomy Abdominal ostomy Family History Significant Family History: no pertinent family hx Social History Smoking Status: Never smoker Other Social History From nursing facility Exam/Review of Systems Vital Signs Vitals Vital Signs Date Time Temp Pulse Resp B/P Pulse Ox O2 Delivery O2 Flow Rate FiO2 09/07/16 15:00 105 23 95 40 09/07/16 11:30 99.0 124/82 Intake and Output 09/06/16 09/06/16 09/07/16 15:00 23:00 07:00 Intake Total 0 ml Output Total 800 ml 770 ml Balance -800 ml -770 ml Exam No response to verbal stimuli, no apparent distress Constitutional: frail Neck: other (tracheostomy) Respiratory: other (course breath sounds bilaterally, no wheezing) Cardiovascular: other (S1 and S2 heard), regular rate and rhythm Gastrointestinal: bowel sounds, non-tender, other (mid abdominal ostomy), soft Extremities: other (no edema) Results Result Diagram: 09/07/16 1335 09/07/16 0640 Results 24 hrs Laboratory Tests Test 09/07/16 00:48 09/07/16 06:40 09/07/16 13:35 Random Tobramycin Level 2.3 Alanine Aminotransferase (ALT/SGPT) 21 Albumin 2.6 L Albumin/Globulin Ratio 0.66 Alkaline Phosphatase 66 Anion Gap 17 H Aspartate Amino Transf (AST/SGOT) 18 Basophils # 0.0 Basophils % 0.1 Blood Morphology Comment Blood Urea Nitrogen 10 Calcium Level 8.7 Carbon Dioxide Level 24 Chloride Level 116 H Creatinine 0.49 L Direct Bilirubin 0.00 Eosinophils # 0.0 Eosinophils % 0.2 Globulin 3.90 H Glucose Level 109 Hematocrit 30.1 L 29.4 L Hemoglobin 9.6 L 9.2 L Indirect Bilirubin 0.0 Lymphocytes # 1.6 Lymphocytes % 10.8 L Mean Corpuscular Hemoglobin 26.5 L Mean Corpuscular Hemoglobin Concent 31.7 L Mean Corpuscular Volume 83.7 Mean Platelet Volume 11.7 H Monocytes # 0.8 Monocytes % 5.4 Neutrophils # 12.6 H Neutrophils % 83.5 H Nucleated Red Blood Cells # 0.0 Nucleated Red Blood Cells % 0.0 Platelet Count 361 # Potassium Level 3.4 L Red Blood Count 3.60 L Red Cell Distribution Width 19.8 H Sodium Level 154 H Total Bilirubin 0.0 L Total Protein 6.5 White Blood Count 15.1 H Medications Medications Current Medications Pantoprazole/ Sodium Chloride (Protonix Iv/NS) 100 ml @ 10 mls/hr Q10H IV Last administered on 09/06/16 21:50; Admin Dose 10 MLS/HR; Start 09/01/16 at 21: 00 Mupirocin (Bactroban) 1 applic BID TOP Last administered on 09/07/16 08:12; Admin Dose 1 APPLIC; Start 09/02/16 at 12:00 Collagenase 1 applic 1 applic DAILY TOP Last administered on 09/06/16 09:45; Admin Dose 1 APPLIC; Start 09/02/16 at 11:30 Vancomycin HCl 250 ml @ 125 mls/hr Q12H IVPB Last administered on 09/07/16 04: 18; Admin Dose 125 MLS/HR; Start 09/05/16 at 04:00 Levofloxacin/ Dextrose (Levaquin 750 Mg/ D5W 150 ml (Pmx)) 150 ml @ 100 mls/hr Q24H IVPB Last administered on 09/07/16 11:04; Admin Dose 100 MLS/HR; Start 09/05/16 at 11:30 Tobramycin TOBRAMYCIN PER PHARMACY NOTE XX ; Start 09/06/16 at 12:30 Potassium Chloride/Dextrose/ Sod Cl 1,000 ml @ 80 mls/hr [id number] IV Last administered on 09/07/16 11:05; Admin Dose 80 MLS/HR; Start 09/06/16 at 16:00 Tobramycin/Sodium Chloride (Tobramycin/NS) 107.5 ml @ 107.5 mls/ hr Q24H IVPB Last administered on 09/07/16 15:14; Admin Dose 107.5 MLS/HR; Start 09/07/16 at 15:00 Miscellaneous Information (*Rx Drug Level Order Reminder*) 1 ONCE ONCE XX ; Start 09/08/16 at 14:00; Stop 09/08/16 at 14:01 Procedures Procedures ECG performed generator imitated sinus tachycardia with frequent PACs, nonspecific STT wave abdomen eddies Telemetry reviewed with baseline sinus rhythm with frequent PACs and PVCs. There was an episode of atrial tachycardia that was brief at approximately 180 bpm. Maynor Broderick DO Sep 07, 2016 16:05
[2016-09-07 17:48] LABS: HEMOGLOBIN 9.1 g/dl (14.0-18.0)
[2016-09-07] MEDS ORDERED: POTASSIUM CHLORIDE 50 ML IVPB SCH (18:00)
[2016-09-07] MEDS ORDERED: POTASSIUM CHLORIDE 250 ML IVPB ONE (18:00)
--- NOTE | 2016-09-07 18:13 | PN ---
Date/Time of Note Date/Time of Note DATE: 09/07/16 TIME: 18:09 Assessment/Plan VTE Prophylaxis VTE Prophylaxis Intervention: SCD's Lines/Catheters IV C[facility]ter Type (from [facility] Peripheral IV Urinary Cath still in place: Yes Reason Cath still needed: urinary retention Assessment/Plan Chief Complaint/Hosp Course ASSESSMENT AND PLAN: 1. Upper gastrointestinal bleeding secondary to gastrostomy site ulcer disease. Continue Protonix. Dr. Pryor is following the patient in gastroenterology consultation. Continue IV fluids. 2. Dehydration secondary to vomiting. 3. Sepsis with Staph bacteremia. Dr Godfrey is following in ID consultation. Continue abx per ID. 4. 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 5. Ventilator-dependent respiratory failure with tracheostomy. Dr. Morrison is following from pulmonology standpoint. Continue bronchodilators and pulmonary toilet. 5. Dysphagia with G-tube. 6. Chronic obstructive pulmonary disease. 7. Chronic Chaudhari catheter. 8. Colostomy 9. Hypertension. 10. Bedbound status. 11. Acute kidney injury. Continue to monitor BUN and creatinine. Continue IV fluids. 12 MRSA UTI , continue Vanco. 13. Hypernatremia, IV fluids changed to D5W with potassium supplement, continue to monitor electrolytes. 14. Episodes of atrial tachycardia. Dr. Broderick is is following in cardiology consultation, continue telemetry monitoring. Monitor electrolytes. Continue sequential compression device for deep venous thrombosis prophylaxis and Protonix for peptic ulcer disease prophylaxis. Further recommendations based on clinical course. Plan of care discussed with Dr. Meeks. Problems: Subjective 24 Hr Interval Summary Free Text/Dictation Patient is continued on IV fluids, NG tube to low suctioning, small amount of blood tinged secretions from NG tube noted on irrigation, no fever vomiting per nurse. Sinus rhythm with episodes of atrial tachycardia on telemetry. Exam/Review of Systems Vital Signs Vitals Vital Signs Date Time Temp Pulse Resp B/P Pulse Ox O2 Delivery O2 Flow Rate FiO2 09/07/16 17:05 95 27 98 40 09/07/16 16:01 98.9 135/89 Intake and Output 09/06/16 09/06/16 09/07/16 15:00 23:00 07:00 Intake Total 0 ml Output Total 800 ml 770 ml Balance -800 ml -770 ml Exam GENERAL: Well-developed, cachectic gentleman currently obtunded on ventilator support via tracheostomy. HEENT: Pupils equal, round, reactive to light and accommodation. NECK: Supple, no cervical lymphadenopathy, no thyromegaly. Tracheostomy the base of the neck with small amount of secretions. LUNGS: Rhonchi bilaterally, slightly diminished at the bases. CARDIOVASCULAR: Normal S1, S2. No murmurs, gallops, clicks, rubs noted. ABDOMEN: Flat, soft, nondistended, nontender. Bowel sounds hypoactive. Patient has left lower quadrant colostomy with pink, moist stoma. GENITOURINARY: The patient also has a Chaudhari catheter. EXTREMITIES: No edema, clubbing, cyanosis. Pulses equal bilaterally 2+. Lower extremities contracted. SKIN: There is no rash, petechiae noted. The patient has a sacral decubitus ulcer stage II. See nursing notes for further description. NEUROLOGIC: Patient does not follow any commands. Results Result Diagram: 09/07/16 1650 09/07/16 0640 Results 24 hrs Laboratory Tests Test 09/07/16 00:48 09/07/16 06:40 09/07/16 13:35 09/07/16 16:50 Random Tobramycin Level 2.3 Alanine Aminotransferase (ALT/SGPT) 21 Albumin 2.6 L Albumin/Globulin Ratio 0.66 Alkaline Phosphatase 66 Anion Gap 17 H Aspartate Amino Transf (AST/SGOT) 18 Basophils # 0.0 Basophils % 0.1 Blood Morphology Comment Blood Urea Nitrogen 10 Calcium Level 8.7 Carbon Dioxide Level 24 Chloride Level 116 H Creatinine 0.49 L Direct Bilirubin 0.00 Eosinophils # 0.0 Eosinophils % 0.2 Globulin 3.90 H Glucose Level 109 Hematocrit 30.1 L 29.4 L 29.0 L Hemoglobin 9.6 L 9.2 L 9.1 L Indirect Bilirubin 0.0 Lymphocytes # 1.6 Lymphocytes % 10.8 L Mean Corpuscular Hemoglobin 26.5 L Mean Corpuscular Hemoglobin Concent 31.7 L Mean Corpuscular Volume 83.7 Mean Platelet Volume 11.7 H Monocytes # 0.8 Monocytes % 5.4 Neutrophils # 12.6 H Neutrophils % 83.5 H Nucleated Red Blood Cells # 0.0 Nucleated Red Blood Cells % 0.0 Platelet Count 361 # Potassium Level 3.4 L Red Blood Count 3.60 L Red Cell Distribution Width 19.8 H Sodium Level 154 H Total Bilirubin 0.0 L Total Protein 6.5 White Blood Count 15.1 H Medications Medications Current Medications Pantoprazole/ Sodium Chloride (Protonix Iv/NS) 100 ml @ 10 mls/hr Q10H IV Last administered on 09/07/16 17:11; Admin Dose 10 MLS/HR; Start 09/01/16 at 21: 00 Mupirocin (Bactroban) 1 applic BID TOP Last administered on 09/07/16 08:12; Admin Dose 1 APPLIC; Start 09/02/16 at 12:00 Collagenase 1 applic 1 applic DAILY TOP Last administered on 09/06/16 09:45; Admin Dose 1 APPLIC; Start 09/02/16 at 11:30 Vancomycin HCl 250 ml @ 125 mls/hr Q12H IVPB Last administered on 09/07/16 16: 26; Admin Dose 125 MLS/HR; Start 09/05/16 at 04:00 Levofloxacin/ Dextrose (Levaquin 750 Mg/ D5W 150 ml (Pmx)) 150 ml @ 100 mls/hr Q24H IVPB Last administered on 09/07/16 11:04; Admin Dose 100 MLS/HR; Start 09/05/16 at 11:30 Tobramycin TOBRAMYCIN PER PHARMACY NOTE XX ; Start 09/06/16 at 12:30 Potassium Chloride/Dextrose/ Sod Cl 1,000 ml @ 80 mls/hr [id number] IV Last administered on 09/07/16 11:05; Admin Dose 80 MLS/HR; Start 09/06/16 at 16:00 Tobramycin/Sodium Chloride (Tobramycin/NS) 107.5 ml @ 107.5 mls/ hr Q24H IVPB Last administered on 09/07/16 15:14; Admin Dose 107.5 MLS/HR; Start 09/07/16 at 15:00 Miscellaneous Information 1 ONCE ONCE XX ; Start 09/08/16 at 14:00; Stop at 14:01 Magnesium Sulfate/ Sodium Chloride (Magnesium Sulfate/NS) 106 ml @ 35.333 mls/ hr ONCE ONCE IVPB ; Start 09/07/16 at 20:00; Stop 09/07/16 at 22:59 Al Hydrox/Mg Hydrox/ Simethicone 30 ml 30 ml Q4 PO ; Start 09/07/16 at 18:00 Potassium Chloride (KCl 40 MEQ/250 ML NS) 250 ml @ 62.5 mls/hr ONCE ONCE IVPB ; Start 09/07/16 at 18:00; Stop 09/07/16 at 21:59 AMY MORAN Sep 07, 2016 18:13
[2016-09-07] MEDS: AL HYDROX/MG HYDROX/SIMETH 30 ML CUP PO SCH ×2 (18:33→22:23)
[2016-09-07] MEDS ORDERED: MAGNESIUM SULFATE 3 GM in SOD CHLORIDE 0.9% 100 ML IVPB ONE (20:00)
[2016-09-07 20:51] LABS: HEMATOCRIT 28.3 % (42.0-52.0)
[2016-09-07] MEDS: D5W + KCL 20 MEQ 1,000 ML IV SCH (22:24)
[2016-09-08] VITALS (24 sets, daily range): BP systolic 124–137; BP diastolic 75–90; PULSE 86–101; RESP 17–23
[2016-09-08 00:57] LABS: HEMATOCRIT 28.7 % (42.0-52.0); HEMOGLOBIN 9.2 g/dl (14.0-18.0)
[2016-09-08] MEDS: AL HYDROX/MG HYDROX/SIMETH 30 ML CUP PO SCH ×6 (01:20→20:05)
[2016-09-08] MEDS: PANTOPRAZOLE IV 80 MG in SOD CHLORIDE 0.9% 100 ML IV SCH ×3 (02:58→23:21)
[2016-09-08] MEDS: VANCOMYCIN 1 GM in NS 250 ML IVPB SCH ×2 (05:06→17:19)
[2016-09-08] MEDS: D5W + KCL 20 MEQ 1,000 ML IV SCH (07:00)
[2016-09-08 07:28] LABS: EOSINOPHILS # 0.1 10^3/ul (0.0-0.5); EOSINOPHILS % 0.5 % (0.0-7.0); HEMATOCRIT 29.3 % (42.0-52.0); HEMOGLOBIN 9.4 g/dl (14.0-18.0); LYMPHOCYTES # 1.8 10^3/ul (0.8-2.9); LYMPHOCYTES % 12.5 % (15.0-51.0); MEAN CORPUSCULAR HEMOGLOBIN 26.6 pg (29.0-33.0); MONOCYTES % 7.3 % (0.0-11.0); NEUTROPHIL # 11.2 10^3/ul (1.6-7.5); NEUTROPHILS % 79.7 % (39.0-77.0); PLATELET COUNT 398 10^3/UL (140-440); RED BLOOD COUNT 3.54 10^6/ul (4.70-6.10); UNCORRECTED WBC 14.1 10^3/ul (4.8-10.8); WHITE BLOOD COUNT 14.1 10^3/ul (4.8-10.8)
[2016-09-08 07:30] LABS: CONDITION 1; LH ANALYZER COMMENTS 1; POTASSIUM 3.4 mmol/L (3.5-5.1); SUSPECT 1
[2016-09-08 07:32] LABS: CREATININE 0.56 mg/dl (0.61-1.24)
[2016-09-08 07:33] LABS: CALCIUM 8.7 mg/dl (8.4-10.2)
[2016-09-08] MEDS: COLLAGENASE 30 GM TUBE TOP SCH (08:40)
[2016-09-08] MEDS: MUPIROCIN 2% 22 GM OINT TOP SCH ×2 (08:40→20:04)
--- NOTE | 2016-09-08 10:07 | CONS ---
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 the wound culture grew carbapenemase producing kleb, enterococci and pseudo - leakage of gastric contents from GT site, now has ostomy bag - infection of wound of RLE due to pseudomonas. 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 I recommend covering MRSA, and bacteria in the abdominal wound and RLE wound as much as possible - continue IV vancomycin (09/02/2016-) for MRSA, planned through 09/12/2016 - continue IV tobramycin (09/06/2016-) for pseudomonas, planned through 09/20/2016 - continue levofloxacin (09/05/2016-) intermediate activity against carbapenemase producing kleb, planned through 09/12/2016 - complete 10 day course of mupirocin for MRSA decolonization (09/02/2016-) management d/w Pt's RN Problems: Consultation Date/Type/Reason Admit Date/Time Aug 31, 2016 at 14:59 Initial Consult Date 09/01/16 Type of Consultation: ID Referring Provider: MARIO ROWE 24 HR Interval Summary Subjective hx not possible: pt non-verbal Exam/Review of Systems Vital Signs Vitals Vital Signs Date Time Temp Pulse Resp B/P Pulse Ox O2 Delivery O2 Flow Rate FiO2 09/08/16 09:28 88 21 96 40 09/08/16 08:03 98.4 134/85 Intake and Output 09/07/16 09/07/16 09/08/16 15:00 23:00 07:00 Intake Total 300 ml 2407.5 ml 616 ml Output Total 150 ml 500 ml 1300 ml Balance 150 ml 1907.5 ml -684 ml Exam Constitutional: frail, non-verbal Psych: confusion Head: atraumatic, other (temporal wasting) Eyes: nl conjunctiva, nl lids ENMT: nl external ears & nose Respiratory: diminished breath sounds Cardiovascular: nl pulses, regular rate and rhythm Gastrointestinal: non-tender, other (ostomy bag over PEG site, colostomy), soft Musculoskeletal: other (atrophy) Extremities: No edema Neurological: confused Skin: rash or lesions (wound on lateral RLE is dressed) Results Result Diagram: 09/08/16 0540 09/08/16 0540 Results 24 hrs Laboratory Tests Test 09/07/16 13:35 09/07/16 16:50 09/07/16 20:35 09/08/16 00:37 Hematocrit 29.4 L 29.0 L 28.3 L 28.7 L Hemoglobin 9.2 L 9.1 L 9.0 L 9.2 L Test 09/08/16 05:40 Anion Gap 17 H Basophils # 0.0 Basophils % 0.0 Blood Morphology Comment Blood Urea Nitrogen 8 Calcium Level 8.7 Carbon Dioxide Level 25 Chloride Level 115 H Creatinine 0.56 L Eosinophils # 0.1 Eosinophils % 0.5 Glucose Level 110 Hematocrit 29.3 L Hemoglobin 9.4 L Lymphocytes # 1.8 Lymphocytes % 12.5 L Mean Corpuscular Hemoglobin 26.6 L Mean Corpuscular Hemoglobin Concent 32.0 Mean Corpuscular Volume 83.0 Mean Platelet Volume 12.0 H Monocytes # 1.0 H Monocytes % 7.3 Neutrophils # 11.2 H Neutrophils % 79.7 H Nucleated Red Blood Cells # 0.0 Nucleated Red Blood Cells % 0.0 Platelet Count 398 Potassium Level 3.4 L Red Blood Count 3.54 L Red Cell Distribution Width 20.0 H Sodium Level 154 H White Blood Count 14.1 H Medications Medications Current Medications Pantoprazole/ Sodium Chloride (Protonix Iv/NS) 100 ml @ 10 mls/hr Q10H IV Last administered on 09/08/16 02:58; Admin Dose 10 MLS/HR; Start 09/01/16 at 21: 00 Mupirocin (Bactroban) 1 applic BID TOP Last administered on 09/08/16 08:40; Admin Dose 1 APPLIC; Start 09/02/16 at 12:00 Collagenase 1 applic 1 applic DAILY TOP Last administered on 09/08/16 08:40; Admin Dose 1 APPLIC; Start 09/02/16 at 11:30 Vancomycin HCl 250 ml @ 125 mls/hr Q12H IVPB Last administered on 09/08/16 05: 06; Admin Dose 125 MLS/HR; Start 09/05/16 at 04:00 Levofloxacin/ Dextrose (Levaquin 750 Mg/ D5W 150 ml (Pmx)) 150 ml @ 100 mls/hr Q24H IVPB Last administered on 09/07/16 11:04; Admin Dose 100 MLS/HR; Start 09/05/16 at 11:30 Tobramycin TOBRAMYCIN PER PHARMACY NOTE XX ; Start 09/06/16 at 12:30 Tobramycin/Sodium Chloride (Tobramycin/NS) 107.5 ml @ 107.5 mls/ hr Q24H IVPB Last administered on 09/07/16 15:14; Admin Dose 107.5 MLS/HR; Start 09/07/16 at 15:00 Miscellaneous Information (*Rx Drug Level Order Reminder*) 1 ONCE ONCE XX ; Start 09/08/16 at 14:00; Stop 09/08/16 at 14:01 Al Hydrox/Mg Hydrox/ Simethicone 30 ml 30 ml Q4 PO Last administered on 08:40; Admin Dose 30 ML; Start 09/07/16 at 18:00 Potassium Chloride/Dextrose (D5W + KCl 20 Meq) 1,000 ml @ 80 mls/hr [id number] IV Last administered on 09/07/16 22:24; Admin Dose 80 MLS/HR; Start 09/07/16 at 18 :30 LIZZY HECK M.D. Sep 08, 2016 10:07
--- NOTE | 2016-09-08 10:35 | RADRPT ---
PROCEDURE: Abdomen radiograph CLINICAL INDICATION: Nasogastric tube placement TECHNIQUE: Single view of the abdomen. COMPARISON: Chest radiograph 09/03/2016 FINDINGS: There is a nonspecific bowel gas pattern. There is no evidence of large or small bowel obstruction. A nasogastric tube is in place with distal tip in the region of the gastroesophageal junction. The proximal side holes in the proximal esophagus. There are no abnormal calcifications overlying the urinary tracts. The bones are intact. IMPRESSION: 1. Nasogastric tube with distal tip in the region of the gastroesophageal junction. Recommend adva ncement by approximately 6 cm.. RPTAT: KK .Hernán Sampson MD, MD Date Time Electronically viewed and signed by .Hernán Sampson MD, on 09/08/2016 10:35 .B/
--- NOTE | 2016-09-08 10:45 | CONS ---
Date/Time of Note Date/Time of Note DATE: 09/08/16 TIME: 10:43 Assessment/Plan Assessment/Plan Additional Assessment/Plan Current ventilator settings; assist control of 16, tidal volume 500, PEEP of 5, 40% FiO2. Assessment and recommendations; 1. Respiratory failure, ventilator dependent. 2. History of severe CVA with severe mental unresponsiveness. 3. Healthcare associated pneumonia currently on broad-spectrum antibiotic coverage. 4. Patient awaiting J-tube replacement. Continue current treatment. Consultation Date/Type/Reason Admit Date/Time Aug 31, 2016 at 14:59 Initial Consult Date 09/01/16 Type of Consultation: ID Referring Provider: MARIO ROWE 24 HR Interval Summary Free Text/Dictation Patient condition remains unchanged. Remains unresponsive on mechanical ventilation via tracheostomy. General examination; elderly male, unresponsive. Currently in no distress. Exam/Review of Systems Vital Signs Vitals Vital Signs Date Time Temp Pulse Resp B/P Pulse Ox O2 Delivery O2 Flow Rate FiO2 09/08/16 09:28 88 21 96 40 09/08/16 08:03 98.4 134/85 Intake and Output 09/07/16 09/07/16 09/08/16 14:59 22:59 06:59 Intake Total 300 ml 2407.5 ml 616 ml Output Total 150 ml 500 ml 1300 ml Balance 150 ml 1907.5 ml -684 ml Exam HEENT examination; supple neck, tracheostomy in place. Patient is edentulous. No neck masses. No thyromegaly. Chest examination; diminished but clear breath sounds bilaterally. S1-S2 audible. No murmurs. Regular rhythm. Abdomen examination; colostomy in place. Abdomen is scaphoid, no organomegaly. Bowel sounds are audible. Extremity examination; no peripheral edema. There is severe muscular wasting over all 4 extremities. SADDLE TREE STITCHER examination; patient is unresponsive. Results Result Diagram: 09/08/16 0540 09/08/16 0540 Results 24 hrs Laboratory Tests Test 09/07/16 13:35 09/07/16 16:50 09/07/16 20:35 09/08/16 00:37 Hematocrit 29.4 L 29.0 L 28.3 L 28.7 L Hemoglobin 9.2 L 9.1 L 9.0 L 9.2 L Test 09/08/16 05:40 Anion Gap 17 H Basophils # 0.0 Basophils % 0.0 Blood Morphology Comment Blood Urea Nitrogen 8 Calcium Level 8.7 Carbon Dioxide Level 25 Chloride Level 115 H Creatinine 0.56 L Eosinophils # 0.1 Eosinophils % 0.5 Glucose Level 110 Hematocrit 29.3 L Hemoglobin 9.4 L Lymphocytes # 1.8 Lymphocytes % 12.5 L Mean Corpuscular Hemoglobin 26.6 L Mean Corpuscular Hemoglobin Concent 32.0 Mean Corpuscular Volume 83.0 Mean Platelet Volume 12.0 H Monocytes # 1.0 H Monocytes % 7.3 Neutrophils # 11.2 H Neutrophils % 79.7 H Nucleated Red Blood Cells # 0.0 Nucleated Red Blood Cells % 0.0 Platelet Count 398 Potassium Level 3.4 L Red Blood Count 3.54 L Red Cell Distribution Width 20.0 H Sodium Level 154 H White Blood Count 14.1 H Medications Medications Current Medications Pantoprazole/ Sodium Chloride (Protonix Iv/NS) 100 ml @ 10 mls/hr Q10H IV Last administered on 09/08/16 02:58; Admin Dose 10 MLS/HR; Start 09/01/16 at 21: 00 Mupirocin (Bactroban) 1 applic BID TOP Last administered on 09/08/16 08:40; Admin Dose 1 APPLIC; Start 09/02/16 at 12:00 Collagenase 1 applic 1 applic DAILY TOP Last administered on 09/08/16 08:40; Admin Dose 1 APPLIC; Start 09/02/16 at 11:30 Vancomycin HCl 250 ml @ 125 mls/hr Q12H IVPB Last administered on 09/08/16 05: 06; Admin Dose 125 MLS/HR; Start 09/05/16 at 04:00 Levofloxacin/ Dextrose (Levaquin 750 Mg/ D5W 150 ml (Pmx)) 150 ml @ 100 mls/hr Q24H IVPB Last administered on 09/07/16 11:04; Admin Dose 100 MLS/HR; Start 09/05/16 at 11:30 Tobramycin TOBRAMYCIN PER PHARMACY NOTE XX ; Start 09/06/16 at 12:30 Tobramycin/Sodium Chloride (Tobramycin/NS) 107.5 ml @ 107.5 mls/ hr Q24H IVPB Last administered on 09/07/16 15:14; Admin Dose 107.5 MLS/HR; Start 09/07/16 at 15:00 Miscellaneous Information (*Rx Drug Level Order Reminder*) 1 ONCE ONCE XX ; Start 09/08/16 at 14:00; Stop 09/08/16 at 14:01 Al Hydrox/Mg Hydrox/ Simethicone 30 ml 30 ml Q4 PO Last administered on 08:40; Admin Dose 30 ML; Start 09/07/16 at 18:00 Potassium Chloride/Dextrose (D5W + KCl 20 Meq) 1,000 ml @ 80 mls/hr [id number] IV Last administered on 09/07/16 22:24; Admin Dose 80 MLS/HR; Start 09/07/16 at 18 :30 SHAAN BUTT Sep 08, 2016 10:45
[2016-09-08] MEDS ORDERED: POTASSIUM CHLORIDE 250 ML IVPB ONE (11:00)
[2016-09-08] MEDS: LEVOFLOXACIN 750MG/D5W (PMX) 150 ML IVPB SCH (11:32)
[2016-09-08] MEDS ORDERED: TOB TROUGH AT XX ONE (14:00)
--- NOTE | 2016-09-08 14:59 | CONS ---
Date/Time of Note Date/Time of Note DATE: 09/08/16 TIME: 14:57 Assessment/Plan Assessment/Plan Chief Complaint/Hosp Course This is a 71-year-old male with history of tracheostomy, encephalopathy secondary to intracranial bleed who presented with hematemesis. Patient undergoing evaluation and treatment by GI service as well as infectious disease and pulmonary. Patient noted to have episodes of tachycardia on telemetry and for this reason cardiology consultation was requested. Unfortunate patient able to give history secondary to mental status information obtained from the chart and medical records. Problems: Additional Assessment/Plan Intermittent atrial tachycardia Frequent PACs and PVCs Preserved ejection fraction Hematemesis Respiratory failure Encephalopathy NSVT -Patient with brief episode of nonsustained ventricular tachycardia, potassium remains low, potassium supplementation has been ordered. We'll order magnesium. Consultation Date/Type/Reason Admit Date/Time Aug 31, 2016 at 14:59 Initial Consult Date 09/02/16 Type of Consultation: cv Referring Provider: MARIO ROWE 24 HR Interval Summary Free Text/Dictation Patient with episode of nonsustained VT on telemetry today Exam/Review of Systems Vital Signs Vitals Vital Signs Date Time Temp Pulse Resp B/P Pulse Ox O2 Delivery O2 Flow Rate FiO2 09/08/16 13:41 94 20 99 40 09/08/16 11:50 98.1 136/80 Intake and Output 09/07/16 09/07/16 09/08/16 15:00 23:00 07:00 Intake Total 300 ml 2407.5 ml 616 ml Output Total 150 ml 500 ml 1300 ml Balance 150 ml 1907.5 ml -684 ml Exam No response to verbal stimuli, no apparent distress Head: normocephalic Neck: other (tracheostomy) Respiratory: other (course breath sounds bilaterally, no wheezing) Cardiovascular: other (S1-S2 heard), regular rate and rhythm Gastrointestinal: bowel sounds, non-tender, soft Extremities: other (no edema) Results Result Diagram: 09/08/16 0540 09/08/16 0540 Results 24 hrs Laboratory Tests Test 09/07/16 16:50 09/07/16 20:35 09/08/16 00:37 09/08/16 05:40 Hematocrit 29.0 L 28.3 L 28.7 L 29.3 L Hemoglobin 9.1 L 9.0 L 9.2 L 9.4 L Anion Gap 17 H Basophils # 0.0 Basophils % 0.0 Blood Morphology Comment Blood Urea Nitrogen 8 Calcium Level 8.7 Carbon Dioxide Level 25 Chloride Level 115 H Creatinine 0.56 L Eosinophils # 0.1 Eosinophils % 0.5 Glucose Level 110 Lymphocytes # 1.8 Lymphocytes % 12.5 L Mean Corpuscular Hemoglobin 26.6 L Mean Corpuscular Hemoglobin Concent 32.0 Mean Corpuscular Volume 83.0 Mean Platelet Volume 12.0 H Monocytes # 1.0 H Monocytes % 7.3 Neutrophils # 11.2 H Neutrophils % 79.7 H Nucleated Red Blood Cells # 0.0 Nucleated Red Blood Cells % 0.0 Platelet Count 398 Potassium Level 3.4 L Red Blood Count 3.54 L Red Cell Distribution Width 20.0 H Sodium Level 154 H White Blood Count 14.1 H Test 09/08/16 13:35 Tobramycin Level Trough 1.0 Medications Medications Current Medications Pantoprazole/ Sodium Chloride (Protonix Iv/NS) 100 ml @ 10 mls/hr Q10H IV Last administered on 09/08/16 13:13; Admin Dose 10 MLS/HR; Start 09/01/16 at 21: 00 Mupirocin (Bactroban) 1 applic BID TOP Last administered on 09/08/16 08:40; Admin Dose 1 APPLIC; Start 09/02/16 at 12:00 Collagenase 1 applic 1 applic DAILY TOP Last administered on 09/08/16 08:40; Admin Dose 1 APPLIC; Start 09/02/16 at 11:30 Vancomycin HCl 250 ml @ 125 mls/hr Q12H IVPB Last administered on 09/08/16 05: 06; Admin Dose 125 MLS/HR; Start 09/05/16 at 04:00 Levofloxacin/ Dextrose (Levaquin 750 Mg/ D5W 150 ml (Pmx)) 150 ml @ 100 mls/hr Q24H IVPB Last administered on 09/08/16 11:32; Admin Dose 100 MLS/HR; Start 09/05/16 at 11:30 Tobramycin TOBRAMYCIN PER PHARMACY NOTE XX ; Start 09/06/16 at 12:30 Tobramycin/Sodium Chloride (Tobramycin/NS) 107.5 ml @ 107.5 mls/ hr Q24H IVPB Last administered on 09/07/16 15:14; Admin Dose 107.5 MLS/HR; Start 09/07/16 at 15:00 Al Hydrox/Mg Hydrox/ Simethicone 30 ml 30 ml Q4 PO Last administered on 08:40; Admin Dose 30 ML; Start 09/07/16 at 18:00 Potassium Chloride/Dextrose 1,000 ml @ 80 mls/hr [id number] IV Last administered on 09/07/16 22:24; Admin Dose 80 MLS/HR; Start 09/07/16 at 18:30 Potassium Chloride (KCl 40 MEQ/250 ML NS) 250 ml @ 62.5 mls/hr ONCE ONCE IVPB Last administered on 09/08/16 13:07; Admin Dose 62.5 MLS/HR; Start 09/08/16 at 11:00; Stop 09/08/16 at 14:59 Maynor Broderick DO Sep 08, 2016 14:59
[2016-09-08] MEDS ORDERED: MAGNESIUM SULFATE 1 GM/D5W 100 ML IVPB ONE (15:00)
[2016-09-08] MEDS: TOBRAMYCIN 300 MG in SOD CHLORIDE 0.9% 100 ML IVPB SCH (15:00)
--- NOTE | 2016-09-08 16:39 | PN ---
Date/Time of Note Date/Time of Note DATE: 09/08/16 TIME: 16:34 Assessment/Plan VTE Prophylaxis VTE Prophylaxis Intervention: SCD's Lines/Catheters IV Catheter Type (from Rust): Peripheral IV Urinary Cath still in place: Yes Reason Cath still needed: urinary retention Assessment/Plan Chief Complaint/Hosp Course ASSESSMENT AND PLAN: 1. Upper gastrointestinal bleeding secondary to gastrostomy site ulcer disease. Continue Protonix. Dr. Pryor is following the patient in gastroenterology consultation. Continue IV fluids. 2. Dehydration secondary to vomiting. 3. Sepsis with Staph bacteremia. Dr Godfrey is following in ID consultation. Continue abx per ID. 4. 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 5. Ventilator-dependent respiratory failure with tracheostomy. Dr. Morrison is following from pulmonology standpoint. Continue bronchodilators and pulmonary toilet. 5. Dysphagia, pending J-tube placement. 6. Chronic obstructive pulmonary disease. 7. Chronic Chaudhari catheter. 8. Colostomy 9. Hypertension. 10. Bedbound status. 11. Acute kidney injury. Continue to monitor BUN and creatinine. Continue IV fluids. 12 MRSA UTI , continue Vanco. 13. Hypernatremia, continue D5W with potassium supplement, continue to monitor electrolytes. 14. Episodes of atrial tachycardia. Dr. Broderick is is following in cardiology consultation, continue telemetry monitoring. Monitor electrolytes. Continue sequential compression device for deep venous thrombosis prophylaxis and Protonix for peptic ulcer disease prophylaxis. Further recommendations based on clinical course. Plan of care discussed with Dr. Meeks. Problems: Subjective 24 Hr Interval Summary Free Text/Dictation Patient's continues on IV fluids, ventilator support, patient has a short run of V. tach, currently sinus rhythm on telemetry, no fever nausea vomiting per RN. Exam/Review of Systems Vital Signs Vitals Vital Signs Date Time Temp Pulse Resp B/P Pulse Ox O2 Delivery O2 Flow Rate FiO2 09/08/16 16:03 89 20 94 40 09/08/16 15:52 98.4 137/90 Intake and Output 09/07/16 09/07/16 09/08/16 15:00 23:00 07:00 Intake Total 300 ml 2407.5 ml 616 ml Output Total 150 ml 500 ml 1300 ml Balance 150 ml 1907.5 ml -684 ml Exam GENERAL: Well-developed, cachectic gentleman currently obtunded on ventilator support via tracheostomy. HEENT: Pupils equal, round, reactive to light and accommodation. NECK: Supple, no cervical lymphadenopathy, no thyromegaly. Tracheostomy the base of the neck with small amount of secretions. LUNGS: Rhonchi bilaterally, slightly diminished at the bases. CARDIOVASCULAR: Normal S1, S2. No murmurs, gallops, clicks, rubs noted. ABDOMEN: Flat, soft, nondistended, nontender. Bowel sounds hypoactive. Patient has left lower quadrant colostomy with pink, moist stoma. GENITOURINARY: The patient also has a Chaudhari catheter. EXTREMITIES: No edema, clubbing, cyanosis. Pulses equal bilaterally 2+. Lower extremities contracted. SKIN: There is no rash, petechiae noted. The patient has a sacral decubitus ulcer stage II. See nursing notes for further description. NEUROLOGIC: Patient does not follow any commands. Results Result Diagram: 09/08/16 0540 09/08/16 0540 Results 24 hrs Laboratory Tests Test 09/07/16 16:50 09/07/16 20:35 09/08/16 00:37 09/08/16 05:40 Hematocrit 29.0 L 28.3 L 28.7 L 29.3 L Hemoglobin 9.1 L 9.0 L 9.2 L 9.4 L Anion Gap 17 H Basophils # 0.0 Basophils % 0.0 Blood Morphology Comment Blood Urea Nitrogen 8 Calcium Level 8.7 Carbon Dioxide Level 25 Chloride Level 115 H Creatinine 0.56 L Eosinophils # 0.1 Eosinophils % 0.5 Glucose Level 110 Lymphocytes # 1.8 Lymphocytes % 12.5 L Mean Corpuscular Hemoglobin 26.6 L Mean Corpuscular Hemoglobin Concent 32.0 Mean Corpuscular Volume 83.0 Mean Platelet Volume 12.0 H Monocytes # 1.0 H Monocytes % 7.3 Neutrophils # 11.2 H Neutrophils % 79.7 H Nucleated Red Blood Cells # 0.0 Nucleated Red Blood Cells % 0.0 Platelet Count 398 Potassium Level 3.4 L Red Blood Count 3.54 L Red Cell Distribution Width 20.0 H Sodium Level 154 H White Blood Count 14.1 H Test 09/08/16 13:35 Tobramycin Level Trough 1.0 Medications Medications Current Medications Pantoprazole/ Sodium Chloride (Protonix Iv/NS) 100 ml @ 10 mls/hr Q10H IV Last administered on 09/08/16 13:13; Admin Dose 10 MLS/HR; Start 09/01/16 at 21: 00 Mupirocin (Bactroban) 1 applic BID TOP Last administered on 09/08/16 08:40; Admin Dose 1 APPLIC; Start 09/02/16 at 12:00 Collagenase 1 applic 1 applic DAILY TOP Last administered on 09/08/16 08:40; Admin Dose 1 APPLIC; Start 09/02/16 at 11:30 Vancomycin HCl 250 ml @ 125 mls/hr Q12H IVPB Last administered on 09/08/16 05: 06; Admin Dose 125 MLS/HR; Start 09/05/16 at 04:00 Levofloxacin/ Dextrose (Levaquin 750 Mg/ D5W 150 ml (Pmx)) 150 ml @ 100 mls/hr Q24H IVPB Last administered on 09/08/16 11:32; Admin Dose 100 MLS/HR; Start 09/05/16 at 11:30 Tobramycin TOBRAMYCIN PER PHARMACY NOTE XX ; Start 09/06/16 at 12:30 Tobramycin/Sodium Chloride (Tobramycin/NS) 107.5 ml @ 107.5 mls/ hr Q24H IVPB Last administered on 09/07/16 15:14; Admin Dose 107.5 MLS/HR; Start 09/07/16 at 15:00; Stop 09/08/16 at 22:00 Al Hydrox/Mg Hydrox/ Simethicone 30 ml 30 ml Q4 PO Last administered on 08:40; Admin Dose 30 ML; Start 09/07/16 at 18:00 Potassium Chloride/Dextrose 1,000 ml @ 80 mls/hr [id number] IV Last administered on 09/07/16 22:24; Admin Dose 80 MLS/HR; Start 09/07/16 at 18:30 Tobramycin/Sodium Chloride (Tobramycin/NS) 107.5 ml @ 103.75 mls/ hr Q36H IVPB ; Start 09/09/16 at 04:00 Miscellaneous Information (*Rx Drug Level Order Reminder*) VANCOMYCIN TROUGH 09/09 AT 0300 ONCE ONCE XX ; Start 09/09/16 at 03:00; Stop 09/09/16 at 03:01 AMY MORAN Sep 08, 2016 16:39
[2016-09-08] MEDS: POTASSIUM CHLORIDE 20 MEQ in DEXTROSE 5% 1,000 ML IV SCH (17:00)
--- NOTE | 2016-09-08 17:04 | RADRPT ---
PROCEDURE: XR Chest. CLINICAL INDICATION: NG tube placement. TECHNIQUE: Single AP portable chest COMPARISON: None. FINDINGS: The cardiomediastinal silhouette is within normal limits of size . Hyperexpansion compatible COPD. Tracheostomy and stable position. NG tube tip coiled within the fundus of the stomach. Atherosclero tic aortic calcification. . Grossly stable multilevel bilateral patchy air space disease greatest in the right upper lobe. Tracheostomy No pneumothorax. The osseous structures and soft tissues are u nremarkable. IMPRESSION: 1. Stable bilateral multi focal airspace disease greatest right most compatible with pneumonia. No o ther interval change. RPTAT:AAJJ Physician Petey Date Time Electronically viewed and signed by Physician Petey on 09/08/2016 17:04 TESSY/
--- NOTE | 2016-09-08 18:56 | PN ---
Date/Time of Note Date/Time of Note DATE: 09/08/16 TIME: 18:53 Assessment/Plan VTE Prophylaxis VTE Prophylaxis Intervention: other (no anti coags) Lines/Catheters IV Catheter Type (from Nrsg): Peripheral IV Urinary Cath still in place: Yes Reason Cath still needed: other (indicate) (pmd) Assessment/Plan Chief Complaint/Hosp Course #1 status post removal of the gastrostomy #2 no bleeding noted from the gastrostomy #3 hemoglobin is stable number for continue nasogastric suction pl Recommend continue nasogastric suction antibiotic therapy Proton pump inhibitor therapy Problems: Assessment/Plan needs peg when possible Subjective 24 Hr Interval Summary Free Text/Dictation ng draining greenish liquid Exam/Review of Systems Vital Signs Vitals Vital Signs Date Time Temp Pulse Resp B/P Pulse Ox O2 Delivery O2 Flow Rate FiO2 09/08/16 17:16 94 09/08/16 16:03 20 94 40 09/08/16 15:52 98.4 137/90 Intake and Output 09/07/16 09/07/16 09/08/16 15:00 23:00 07:00 Intake Total 300 ml 807.5 ml 616 ml Output Total 150 ml 500 ml 1300 ml Balance 150 ml 307.5 ml -684 ml Exam gi bleeding seems stable hb 9.1 Results Result Diagram: 09/08/16 0540 09/08/16 0540 Results 24 hrs Laboratory Tests Test 09/07/16 20:35 09/08/16 00:37 09/08/16 05:40 09/08/16 13:35 Hematocrit 28.3 L 28.7 L 29.3 L Hemoglobin 9.0 L 9.2 L 9.4 L Anion Gap 17 H Basophils # 0.0 Basophils % 0.0 Blood Morphology Comment Blood Urea Nitrogen 8 Calcium Level 8.7 Carbon Dioxide Level 25 Chloride Level 115 H Creatinine 0.56 L Eosinophils # 0.1 Eosinophils % 0.5 Glucose Level 110 Lymphocytes # 1.8 Lymphocytes % 12.5 L Mean Corpuscular Hemoglobin 26.6 L Mean Corpuscular Hemoglobin Concent 32.0 Mean Corpuscular Volume 83.0 Mean Platelet Volume 12.0 H Monocytes # 1.0 H Monocytes % 7.3 Neutrophils # 11.2 H Neutrophils % 79.7 H Nucleated Red Blood Cells # 0.0 Nucleated Red Blood Cells % 0.0 Platelet Count 398 Potassium Level 3.4 L Red Blood Count 3.54 L Red Cell Distribution Width 20.0 H Sodium Level 154 H White Blood Count 14.1 H Tobramycin Level Trough 1.0 Medications Medications Current Medications Pantoprazole/ Sodium Chloride (Protonix Iv/NS) 100 ml @ 10 mls/hr Q10H IV Last administered on 09/08/16 13:13; Admin Dose 10 MLS/HR; Start 09/01/16 at 21: 00 Mupirocin (Bactroban) 1 applic BID TOP Last administered on 09/08/16 08:40; Admin Dose 1 APPLIC; Start 09/02/16 at 12:00 Collagenase 1 applic 1 applic DAILY TOP Last administered on 09/08/16 08:40; Admin Dose 1 APPLIC; Start 09/02/16 at 11:30 Vancomycin HCl 250 ml @ 125 mls/hr Q12H IVPB Last administered on 09/08/16 17: 19; Admin Dose 125 MLS/HR; Start 09/05/16 at 04:00 Levofloxacin/ Dextrose (Levaquin 750 Mg/ D5W 150 ml (Pmx)) 150 ml @ 100 mls/hr Q24H IVPB Last administered on 09/08/16 11:32; Admin Dose 100 MLS/HR; Start 09/05/16 at 11:30 Tobramycin TOBRAMYCIN PER PHARMACY NOTE XX ; Start 09/06/16 at 12:30 Tobramycin/Sodium Chloride (Tobramycin/NS) 107.5 ml @ 107.5 mls/ hr Q24H IVPB Last administered on 09/07/16 15:14; Admin Dose 107.5 MLS/HR; Start 09/07/16 at 15:00; Stop 09/08/16 at 22:00 Al Hydrox/Mg Hydrox/Simethicone (Mag-Al Plus) 30 ml Q4 PO Last administered on 09/08/16 18:28; Admin Dose 30 ML; Start 09/07/16 at 18:00 Miscellaneous Information VANCOMYCIN TROUGH 09/09 AT 0300 ONCE ONCE XX ; Start at 03:00; Stop 09/09/16 at 03:01 Potassium Chloride 20 meq/ Dextrose 1,010 ml @ 80 mls/hr [id number] IV ; Start 09/08/16 at 17:00 Tobramycin/Sodium Chloride (Tobramycin/NS) 107.5 ml @ 103.75 mls/ hr Q36H IVPB ; Start 09/10/16 at 06:00 KATELYN SILVERMAN MD Sep 08, 2016 18:56
[2016-09-09] VITALS (24 sets, daily range): BP systolic 125–141; BP diastolic 70–88; PULSE 67–90; RESP 16–23
[2016-09-09] MEDS: AL HYDROX/MG HYDROX/SIMETH 30 ML CUP PO SCH ×6 (01:00→21:32)
[2016-09-09] MEDS: POTASSIUM CHLORIDE 20 MEQ in DEXTROSE 5% 1,000 ML IV SCH ×2 (02:47→18:53)
[2016-09-09] MEDS: VANCOMYCIN 1 GM in NS 250 ML IVPB SCH (03:59)
[2016-09-09] MEDS ORDERED: TOBRAMYCIN 300 MG in SOD CHLORIDE 0.9% 100 ML IVPB SCH (04:00)
[2016-09-09 06:50] LABS: BASOPHILS % 0.1 % (0.0-2.0); HEMATOCRIT 25.4 % (42.0-52.0); HEMOGLOBIN 8.2 g/dl (14.0-18.0); LYMPHOCYTES # 1.8 10^3/ul (0.8-2.9); LYMPHOCYTES % 15.1 % (15.0-51.0); MEAN CORPUSCULAR HEMOGLOBIN 26.4 pg (29.0-33.0); MEAN CORPUSCULAR HGB CONC 32.3 g/dl (32.0-37.0); MEAN CORPUSCULAR VOLUME 81.7 fl (82.0-101.0); MEAN PLATELET VOLUME 13.7 fl (7.4-10.4); MONOCYTE # 0.8 10^3/ul (0.3-0.9); MONOCYTES % 6.7 % (0.0-11.0); NEUTROPHIL # 9.1 10^3/ul (1.6-7.5); NEUTROPHILS % 76.5 % (39.0-77.0); PLATELET COUNT 375 10^3/UL (140-440); RED BLOOD COUNT 3.11 10^6/ul (4.70-6.10); WHITE BLOOD COUNT 11.9 10^3/ul (4.8-10.8)
[2016-09-09 07:13] LABS: POTASSIUM 3.5 mmol/L (3.5-5.1)
[2016-09-09 07:15] LABS: CREATININE 0.55 mg/dl (0.61-1.24)
[2016-09-09 07:16] LABS: CALCIUM 8.4 mg/dl (8.4-10.2)
--- NOTE | 2016-09-09 10:01 | PN ---
Date/Time of Note Date/Time of Note DATE: 09/09/16 TIME: 09:56 Assessment/Plan VTE Prophylaxis VTE Prophylaxis Intervention: SCD's Lines/Catheters IV Catheter Type (from Nrs): Peripheral IV Urinary Cath still in place: Yes Reason Cath still needed: urinary retention Assessment/Plan Assessment/Plan 1. Upper gastrointestinal bleeding secondary to gastrostomy site ulcer disease. - Continue Protonix. - per Dr. Pryor in gastroenterology consultation. Continue IV fluids. 2. Dehydration secondary to vomiting- none at present 3. Sepsis with Staph bacteremia. - per Dr Godfrey is following in ID consultation. Continue abx per ID. 4. Episodes of atrial tachycardia. - per Dr. Broderick in cardiology consultation, continue telemetry monitoring. Monitor electrolytes. 5. Ventilator-dependent respiratory failure with tracheostomy. - per Dr. Morrison from pulmonology standpoint. Continue bronchodilators and pulmonary toilet. 5. Dysphagia, pending J-tube placement. - aspiration precautions 6. Chronic obstructive pulmonary disease. 7. Chronic Chaudhari catheter. 8. Colostomy 9. Hypertension. 10. Bedbound status. 11. Acute kidney injury. Continue to monitor BUN and creatinine. Continue IV fluids. 12 MRSA UTI , continue Vanco. 13. Hypernatremia, continue D5W with potassium supplement, continue to monitor electrolytes. 14. 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 15. leukocytosis- improving Continue sequential compression device for deep venous thrombosis prophylaxis and Protonix for peptic ulcer disease prophylaxis. Further recommendations based on clinical course. Plan of care discussed with Dr. Meeks. Subjective 24 Hr Interval Summary Free Text/Dictation NAD, Seems comfortable, no new events reported by staff. Constitutional: requiring O2 Exam/Review of Systems Vital Signs Vitals Vital Signs Date Time Temp Pulse Resp B/P Pulse Ox O2 Delivery O2 Flow Rate FiO2 09/09/16 08:33 86 09/09/16 07:19 99.1 22 128/74 96 09/09/16 05:10 40 Intake and Output 09/08/16 09/08/16 09/09/16 15:00 23:00 07:00 Intake Total 150 ml 400 ml 390 ml Output Total 700 ml 500 ml Balance 150 ml -300 ml -110 ml Exam Constitutional: non-verbal Psych: nl mood/affect Eyes: nl sclera ENMT: nl external ears & nose Neck: non-tender Respiratory: diminished breath sounds Cardiovascular: nl pulses Gastrointestinal: non-tender, other, soft Musculoskeletal: muscle weakness Extremities: normal pulses Neurological: confused, lethargic Skin: other Lymph: nontender Results Result Diagram: 09/09/16 0535 09/09/16 0535 Results 24 hrs Laboratory Tests Test 09/08/16 13:35 09/09/16 03:10 09/09/16 05:35 Tobramycin Level Trough 1.0 Vancomycin Level Trough 19.1 Anion Gap 13 Basophils % 0.1 Blood Urea Nitrogen 9 Calcium Level 8.4 Carbon Dioxide Level 25 Chloride Level 115 H Creatinine 0.55 L Eosinophils % 1.0 Glucose Level 104 Hematocrit 25.4 L Hemoglobin 8.2 L Lymphocytes # 1.8 Lymphocytes % 15.1 Magnesium Level 2.0 Mean Corpuscular Hemoglobin 26.4 L Mean Corpuscular Hemoglobin Concent 32.3 Mean Corpuscular Volume 81.7 L Mean Platelet Volume 13.7 H Monocytes # 0.8 Monocytes % 6.7 Neutrophils # 9.1 H Neutrophils % 76.5 Platelet Count 375 Potassium Level 3.5 Red Blood Count 3.11 L Red Cell Distribution Width 20.0 H Sodium Level 149 H White Blood Count 11.9 H Medications Medications Current Medications Pantoprazole/ Sodium Chloride (Protonix Iv/NS) 100 ml @ 10 mls/hr Q10H IV Last administered on 09/08/16 23:21; Admin Dose 10 MLS/HR; Start 09/01/16 at 21: 00 Mupirocin (Bactroban) 1 applic BID TOP Last administered on 09/08/16 20:04; Admin Dose 1 APPLIC; Start 09/02/16 at 12:00 Collagenase 1 applic 1 applic DAILY TOP Last administered on 09/08/16 08:40; Admin Dose 1 APPLIC; Start 09/02/16 at 11:30 Levofloxacin/ Dextrose (Levaquin 750 Mg/ D5W 150 ml (Pmx)) 150 ml @ 100 mls/hr Q24H IVPB Last administered on 09/08/16 11:32; Admin Dose 100 MLS/HR; Start 09/05/16 at 11:30 Tobramycin (Tobramycin Iv Per Pharmacy) TOBRAMYCIN PER PHARMACY NOTE XX ; Start 09/06/16 at 12:30 Al Hydrox/Mg Hydrox/ Simethicone 30 ml 30 ml Q4 PO Last administered on 18:28; Admin Dose 30 ML; Start 09/07/16 at 18:00 Potassium Chloride 20 meq/ Dextrose 1,010 ml @ 80 mls/hr [id number] IV Last administered on 09/09/16 02:47; Admin Dose 80 MLS/HR; Start 09/08/16 at 17:00 Tobramycin 300 mg/ Sodium Chloride 107.5 ml @ 103.75 mls/ hr Q36H IVPB ; Start 09/10/16 at 06:00 Vancomycin HCl/ Sodium Chloride (Vancocin/NS) 150 ml @ 75 mls/hr Q12H IVPB ; Start 09/09/16 at 16:00 MARIO ROWE Sep 09, 2016 09:57
--- NOTE | 2016-09-09 10:20 | CONS ---
Date/Time of Note Date/Time of Note DATE: 09/09/16 TIME: :17 Assessment/Plan Assessment/Plan Additional Assessment/Plan Assessment and recommendations; 1. Patient with history of chronic respiratory failure due to underlying severe CVA, remains ventilator dependent. 2. Healthcare associated pneumonia currently on appropriate antibiotic regimen. 3. Awaiting J-tube replacement. 4. History of colostomy. Continue current treatment, current antibiotics. Consultation Date/Type/Reason Admit Date/Time Aug 31, 2016 at 14:59 Initial Consult Date 09/01/16 Type of Consultation: Pulmonary Referring Provider: MARIO ROWE 24 HR Interval Summary Free Text/Dictation Patient condition remains unchanged. Has remained hemodynamically stable. Because of underlying severe CVA patient is completely unresponsive. Remains ventilator dependent. General examination; elderly male, on mechanical ventilation via tracheostomy currently in no distress. Patient is unresponsive. Exam/Review of Systems Vital Signs Vitals Vital Signs Date Time Temp Pulse Resp B/P Pulse Ox O2 Delivery O2 Flow Rate FiO2 09/09/16 08:33 86 09/09/16 07:19 99.1 22 128/74 96 09/09/16 05:10 40 Intake and Output 09/08/16 09/08/16 09/09/16 15:00 23:00 07:00 Intake Total 150 ml 400 ml 390 ml Output Total 700 ml 500 ml Balance 150 ml -300 ml -110 ml Exam Current ventilator settings are AC of 16, tidal volume 500, PEEP of 5, 40% FiO2. H EENT examination; supple neck, no JVD. No lymphadenopathy. Patient is edentulous. Tracheostomy in place with clean insertion site. Chest examination; diminished but clear breath sounds. S1-S2 audible, no murmurs. Regular rhythm. Abdomen examination; scaphoid. Colostomy in place. Bowel sounds are audible. Extremity examination; no peripheral edema. Patient has severe contractures involving all 4 extremities. [employer] examination; patient remains unresponsive. Results Result Diagram: 09/09/16 0535 09/09/16 0535 Results 24 hrs Laboratory Tests Test 09/08/16 13:35 09/09/16 03:10 09/09/16 05:35 Tobramycin Level Trough 1.0 Vancomycin Level Trough 19.1 Anion Gap 13 Basophils % 0.1 Blood Urea Nitrogen 9 Calcium Level 8.4 Carbon Dioxide Level 25 Chloride Level 115 H Creatinine 0.55 L Eosinophils % 1.0 Glucose Level 104 Hematocrit 25.4 L Hemoglobin 8.2 L Lymphocytes # 1.8 Lymphocytes % 15.1 Magnesium Level 2.0 Mean Corpuscular Hemoglobin 26.4 L Mean Corpuscular Hemoglobin Concent 32.3 Mean Corpuscular Volume 81.7 L Mean Platelet Volume 13.7 H Monocytes # 0.8 Monocytes % 6.7 Neutrophils # 9.1 H Neutrophils % 76.5 Platelet Count 375 Potassium Level 3.5 Red Blood Count 3.11 L Red Cell Distribution Width 20.0 H Sodium Level 149 H White Blood Count 11.9 H Medications Medications Current Medications Pantoprazole/ Sodium Chloride (Protonix Iv/NS) 100 ml @ 10 mls/hr Q10H IV Last administered on 09/08/16 23:21; Admin Dose 10 MLS/HR; Start 09/01/16 at 21: 00 Mupirocin (Bactroban) 1 applic BID TOP Last administered on 09/08/16 20:04; Admin Dose 1 APPLIC; Start 09/02/16 at 12:00 Collagenase 1 applic 1 applic DAILY TOP Last administered on 09/08/16 08:40; Admin Dose 1 APPLIC; Start 09/02/16 at 11:30 Levofloxacin/ Dextrose (Levaquin 750 Mg/ D5W 150 ml (Pmx)) 150 ml @ 100 mls/hr Q24H IVPB Last administered on 09/08/16 11:32; Admin Dose 100 MLS/HR; Start 09/05/16 at 11:30 Tobramycin (Tobramycin Iv Per Pharmacy) TOBRAMYCIN PER PHARMACY NOTE XX ; Start 09/06/16 at 12:30 Al Hydrox/Mg Hydrox/ Simethicone 30 ml 30 ml Q4 PO Last administered on 18:28; Admin Dose 30 ML; Start 09/07/16 at 18:00 Potassium Chloride 20 meq/ Dextrose 1,010 ml @ 80 mls/hr [id number] IV Last administered on 09/09/16 02:47; Admin Dose 80 MLS/HR; Start 09/08/16 at 17:00 Tobramycin 300 mg/ Sodium Chloride 107.5 ml @ 103.75 mls/ hr Q36H IVPB ; Start 09/10/16 at 06:00 Vancomycin HCl/ Sodium Chloride (Vancocin/NS) 150 ml @ 75 mls/hr Q12H IVPB ; Start 09/09/16 at 16:00 SHAAN BUTT Sep 09, 2016 10:20
[2016-09-09] MEDS: PANTOPRAZOLE IV 80 MG in SOD CHLORIDE 0.9% 100 ML IV SCH ×2 (10:29→21:32)
[2016-09-09] MEDS: MUPIROCIN 2% 22 GM OINT TOP SCH ×2 (10:29→21:32)
[2016-09-09] MEDS: COLLAGENASE 30 GM TUBE TOP SCH (10:29)
[2016-09-09] MEDS: LEVOFLOXACIN 750MG/D5W (PMX) 150 ML IVPB SCH (10:54)
--- NOTE | 2016-09-09 14:16 | CONS ---
Date/Time of Note Date/Time of Note DATE: 09/09/16 TIME: 14:14 Assessment/Plan Assessment/Plan Additional Assessment/Plan Intermittent atrial tachycardia Frequent PACs and PVCs Preserved ejection fraction Hematemesis Respiratory failure Encephalopathy NSVT -Patient with less arrhythmias with improvement of potassium and magnesium. Supplement to maintain potassium above 4.0 and magnesium above 2.0. Consultation Date/Type/Reason Admit Date/Time Aug 31, 2016 at 14:59 Initial Consult Date 09/02/16 Type of Consultation: cv Referring Provider: MARIO ROWE 24 HR Interval Summary Free Text/Dictation Patient seen and examined Exam/Review of Systems Vital Signs Vitals Vital Signs Date Time Temp Pulse Resp B/P Pulse Ox O2 Delivery O2 Flow Rate FiO2 09/09/16 12:28 86 09/09/16 11:11 98.0 22 141/76 100 09/09/16 11:00 40 Intake and Output 09/08/16 09/08/16 09/09/16 15:00 23:00 07:00 Intake Total 150 ml 400 ml 390 ml Output Total 700 ml 500 ml Balance 150 ml -300 ml -110 ml Exam No apparent distress, no response to verbal stimuli Neck: other (Tracheostomy) Respiratory: other (Coarse breath sounds bilaterally, no wheezing) Cardiovascular: other (S1-S2 heard), regular rate and rhythm Gastrointestinal: bowel sounds, non-tender, other (No grimacing with palpation) , soft Extremities: other (No edema) Results Result Diagram: 09/09/16 0535 09/09/16 0535 Results 24 hrs Laboratory Tests Test 09/09/16 03:10 09/09/16 05:35 Vancomycin Level Trough 19.1 Anion Gap 13 Basophils % 0.1 Blood Urea Nitrogen 9 Calcium Level 8.4 Carbon Dioxide Level 25 Chloride Level 115 H Creatinine 0.55 L Eosinophils % 1.0 Glucose Level 104 Hematocrit 25.4 L Hemoglobin 8.2 L Lymphocytes # 1.8 Lymphocytes % 15.1 Magnesium Level 2.0 Mean Corpuscular Hemoglobin 26.4 L Mean Corpuscular Hemoglobin Concent 32.3 Mean Corpuscular Volume 81.7 L Mean Platelet Volume 13.7 H Monocytes # 0.8 Monocytes % 6.7 Neutrophils # 9.1 H Neutrophils % 76.5 Platelet Count 375 Potassium Level 3.5 Red Blood Count 3.11 L Red Cell Distribution Width 20.0 H Sodium Level 149 H White Blood Count 11.9 H Medications Medications Current Medications Pantoprazole/ Sodium Chloride (Protonix Iv/NS) 100 ml @ 10 mls/hr Q10H IV Last administered on 09/09/16 10:29; Admin Dose 10 MLS/HR; Start 09/01/16 at 21: 00 Mupirocin (Bactroban) 1 applic BID TOP Last administered on 09/09/16 10:29; Admin Dose 1 APPLIC; Start 09/02/16 at 12:00 Collagenase 1 applic 1 applic DAILY TOP Last administered on 09/09/16 10:29; Admin Dose 1 APPLIC; Start 09/02/16 at 11:30 Levofloxacin/ Dextrose (Levaquin 750 Mg/ D5W 150 ml (Pmx)) 150 ml @ 100 mls/hr Q24H IVPB Last administered on 09/09/16 10:54; Admin Dose 100 MLS/HR; Start 09/05/16 at 11:30 Tobramycin (Tobramycin Iv Per Pharmacy) TOBRAMYCIN PER PHARMACY NOTE XX ; Start 09/06/16 at 12:30 Al Hydrox/Mg Hydrox/ Simethicone 30 ml 30 ml Q4 PO Last administered on 10:36; Admin Dose 30 ML; Start 09/07/16 at 18:00 Potassium Chloride 20 meq/ Dextrose 1,010 ml @ 80 mls/hr [id number] IV Last administered on 09/09/16 02:47; Admin Dose 80 MLS/HR; Start 09/08/16 at 17:00 Tobramycin 300 mg/ Sodium Chloride 107.5 ml @ 103.75 mls/ hr Q36H IVPB ; Start 09/10/16 at 06:00 Vancomycin HCl/ Sodium Chloride (Vancocin/NS) 150 ml @ 75 mls/hr Q12H IVPB ; Start 09/09/16 at 16:00 Maynor Broderick DO Sep 09, 2016 14:16
[2016-09-09] MEDS ORDERED: POTASSIUM CHLORIDE 250 ML IVPB ONE (14:30)
[2016-09-09] MEDS ORDERED: MAGNESIUM SULFATE 1 GM/D5W 100 ML IVPB ONE ×2 (14:30→17:00)
[2016-09-09] MEDS: VANCOMYCIN 750 MG in SOD CHLORIDE 0.9% 150 ML IVPB SCH (16:31)
--- NOTE | 2016-09-09 17:04 | CONS ---
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 the wound culture grew carbapenemase producing kleb, enterococci and pseudo - leakage of gastric contents from GT site, now has ostomy bag - infection of wound of RLE due to pseudomonas. 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 I recommend covering MRSA, and bacteria in the abdominal wound and RLE wound as much as possible - continue IV vancomycin (09/02/2016-) for MRSA, planned through 09/12/2016 - continue IV tobramycin (09/06/2016-) for pseudomonas, planned through 09/20/2016 - continue levofloxacin (09/05/2016-) intermediate activity against carbapenemase producing kleb, planned through 09/12/2016 - complete 10 day course of mupirocin for MRSA decolonization (09/02/2016-) Problems: Consultation Date/Type/Reason Admit Date/Time Aug 31, 2016 at 14:59 Initial Consult Date 09/01/16 Type of Consultation: ID Referring Provider: MARIO ROWE 24 HR Interval Summary Subjective hx not possible: pt non-verbal Exam/Review of Systems Vital Signs Vitals Vital Signs Date Time Temp Pulse Resp B/P Pulse Ox O2 Delivery O2 Flow Rate FiO2 09/09/16 16:44 80 09/09/16 15:25 22 100 40 09/09/16 15:07 98.4 135/88 Intake and Output 09/08/16 09/08/16 09/09/16 15:00 23:00 07:00 Intake Total 150 ml 400 ml 390 ml Output Total 700 ml 500 ml Balance 150 ml -300 ml -110 ml Exam Constitutional: frail, non-verbal Head: other (temporal wasting) Eyes: nl lids ENMT: nl external ears & nose, other (NGT) Neck: other (trach) Respiratory: diminished breath sounds Cardiovascular: nl pulses, regular rate and rhythm Gastrointestinal: non-tender, other (ostomy over NGT, colostomy), soft Musculoskeletal: other (atrophy) Extremities: No edema Neurological: confused, unresponsive Skin: rash or lesions (2 cm x 1 cm wound on R lateral LE has scar with central eschar) Results Result Diagram: 09/09/1635 09/09/16 0535 Results 24 hrs Laboratory Tests Test 09/09/16 03:10 09/09/16 05:35 Vancomycin Level Trough 19.1 Anion Gap 13 Basophils % 0.1 Blood Urea Nitrogen 9 Calcium Level 8.4 Carbon Dioxide Level 25 Chloride Level 115 H Creatinine 0.55 L Eosinophils % 1.0 Glucose Level 104 Hematocrit 25.4 L Hemoglobin 8.2 L Lymphocytes # 1.8 Lymphocytes % 15.1 Magnesium Level 2.0 Mean Corpuscular Hemoglobin 26.4 L Mean Corpuscular Hemoglobin Concent 32.3 Mean Corpuscular Volume 81.7 L Mean Platelet Volume 13.7 H Monocytes # 0.8 Monocytes % 6.7 Neutrophils # 9.1 H Neutrophils % 76.5 Platelet Count 375 Potassium Level 3.5 Red Blood Count 3.11 L Red Cell Distribution Width 20.0 H Sodium Level 149 H White Blood Count 11.9 H Medications Medications Current Medications Pantoprazole/ Sodium Chloride (Protonix Iv/NS) 100 ml @ 10 mls/hr Q10H IV Last administered on 09/09/16 10:29; Admin Dose 10 MLS/HR; Start 09/01/16 at 21: 00 Mupirocin (Bactroban) 1 applic BID TOP Last administered on 09/09/16 10:29; Admin Dose 1 APPLIC; Start 09/02/16 at 12:00 Collagenase 1 applic 1 applic DAILY TOP Last administered on 09/09/16 10:29; Admin Dose 1 APPLIC; Start 09/02/16 at 11:30 Levofloxacin/ Dextrose (Levaquin 750 Mg/ D5W 150 ml (Pmx)) 150 ml @ 100 mls/hr Q24H IVPB Last administered on 09/09/16 10:54; Admin Dose 100 MLS/HR; Start 09/05/16 at 11:30 Tobramycin (Tobramycin Iv Per Pharmacy) TOBRAMYCIN PER PHARMACY NOTE XX ; Start 09/06/16 at 12:30 Al Hydrox/Mg Hydrox/ Simethicone 30 ml 30 ml Q4 PO Last administered on 15:43; Admin Dose 30 ML; Start 09/07/16 at 18:00 Potassium Chloride 20 meq/ Dextrose 1,010 ml @ 80 mls/hr [id number] IV Last administered on 09/09/16 02:47; Admin Dose 80 MLS/HR; Start 09/08/16 at 17:00 Tobramycin 300 mg/ Sodium Chloride 107.5 ml @ 103.75 mls/ hr Q36H IVPB ; Start 09/10/16 at 06:00 Vancomycin HCl 750 mg/Sodium Chloride 150 ml @ 75 mls/hr Q12H IVPB Last administered on 09/09/16 16:31; Admin Dose 75 MLS/HR; Start 09/09/16 at 16:00 Potassium Chloride 250 ml @ 62.5 mls/hr ONCE ONCE IVPB Last administered on 16:32; Admin Dose 62.5 MLS/HR; Start 09/09/16 at 14:30; Stop 09/09/16 at 18:29 Magnesium Sulfate/ Dextrose (Magnesium Sulfate 1 Gm/D5W) 100 ml @ 100 mls/hr ONCE ONCE IVPB ; Start 09/09/16 at 17:00; Stop 09/09/16 at 17:59 LIZZY HECK M.D. Sep 09, 2016 17:04
--- NOTE | 2016-09-09 17:47 | PN ---
Date/Time of Note Date/Time of Note DATE: 09/09/16 TIME: 17:43 Assessment/Plan VTE Prophylaxis VTE Prophylaxis Intervention: other (per vpmd no anti coags) Lines/Catheters IV Catheter Type (from Nrsg): Peripheral IV Urinary Cath still in place: Yes Reason Cath still needed: other (indicate) (per pmd) Assessment/Plan Chief Complaint/Hosp Course #1 status post removal of the gastrostomy #2 no bleeding noted from the gastrostomy #3 hemoglobin is stable number for continue nasogastric suction pl Recommend continue nasogastric suction antibiotic therapy Proton pump inhibitor therapy Problems: Assessment/Plan stable gi bleeding plan cont ng suction Subjective 24 Hr Interval Summary Free Text/Dictation non nverbal ng tube no bleeding Exam/Review of Systems Vital Signs Vitals Vital Signs Date Time Temp Pulse Resp B/P Pulse Ox O2 Delivery O2 Flow Rate FiO2 09/09/16 17:03 74 16 100 40 09/09/16 15:07 98.4 135/88 Intake and Output 09/08/16 09/08/16 09/09/16 15:00 23:00 07:00 Intake Total 150 ml 400 ml 390 ml Output Total 700 ml 500 ml Balance 150 ml -300 ml -110 ml Exam alert5 non verbal 'no ng bleeding gastrostomy greenish drainage abd soft Results Result Diagram: 09/09/16 0535 09/09/16 0535 Results 24 hrs Laboratory Tests Test 09/09/16 03:10 09/09/16 05:35 Vancomycin Level Trough 19.1 Anion Gap 13 Basophils % 0.1 Blood Urea Nitrogen 9 Calcium Level 8.4 Carbon Dioxide Level 25 Chloride Level 115 H Creatinine 0.55 L Eosinophils % 1.0 Glucose Level 104 Hematocrit 25.4 L Hemoglobin 8.2 L Lymphocytes # 1.8 Lymphocytes % 15.1 Magnesium Level 2.0 Mean Corpuscular Hemoglobin 26.4 L Mean Corpuscular Hemoglobin Concent 32.3 Mean Corpuscular Volume 81.7 L Mean Platelet Volume 13.7 H Monocytes # 0.8 Monocytes % 6.7 Neutrophils # 9.1 H Neutrophils % 76.5 Platelet Count 375 Potassium Level 3.5 Red Blood Count 3.11 L Red Cell Distribution Width 20.0 H Sodium Level 149 H White Blood Count 11.9 H Medications Medications Current Medications Pantoprazole/ Sodium Chloride (Protonix Iv/NS) 100 ml @ 10 mls/hr Q10H IV Last administered on 09/09/16 10:29; Admin Dose 10 MLS/HR; Start 09/01/16 at 21: 00 Mupirocin (Bactroban) 1 applic BID TOP Last administered on 09/09/16 10:29; Admin Dose 1 APPLIC; Start 09/02/16 at 12:00 Collagenase 1 applic 1 applic DAILY TOP Last administered on 09/09/16 10:29; Admin Dose 1 APPLIC; Start 09/02/16 at 11:30 Levofloxacin/ Dextrose (Levaquin 750 Mg/ D5W 150 ml (Pmx)) 150 ml @ 100 mls/hr Q24H IVPB Last administered on 09/09/16 10:54; Admin Dose 100 MLS/HR; Start 09/05/16 at 11:30 Tobramycin (Tobramycin Iv Per Pharmacy) TOBRAMYCIN PER PHARMACY NOTE XX ; Start 09/06/16 at 12:30 Al Hydrox/Mg Hydrox/ Simethicone 30 ml 30 ml Q4 PO Last administered on 15:43; Admin Dose 30 ML; Start 09/07/16 at 18:00 Potassium Chloride 20 meq/ Dextrose 1,010 ml @ 80 mls/hr [id number] IV Last administered on 09/09/16 02:47; Admin Dose 80 MLS/HR; Start 09/08/16 at 17:00 Tobramycin 300 mg/ Sodium Chloride 107.5 ml @ 103.75 mls/ hr Q36H IVPB ; Start 09/10/16 at 06:00 Vancomycin HCl 750 mg/Sodium Chloride 150 ml @ 75 mls/hr Q12H IVPB Last administered on 09/09/16 16:31; Admin Dose 75 MLS/HR; Start 09/09/16 at 16:00 Potassium Chloride 250 ml @ 62.5 mls/hr ONCE ONCE IVPB Last administered on 16:32; Admin Dose 62.5 MLS/HR; Start 09/09/16 at 14:30; Stop 09/09/16 at 18:29 Magnesium Sulfate/ Dextrose (Magnesium Sulfate 1 Gm/D5W) 100 ml @ 100 mls/hr ONCE ONCE IVPB ; Start 09/09/16 at 17:00; Stop 09/09/16 at 17:59 KATELYN SILVERMAN MD Sep 09, 2016 17:46
[2016-09-10] VITALS (24 sets, daily range): BP systolic 98–137; BP diastolic 64–80; PULSE 72–102; RESP 15–24
[2016-09-10] MEDS: AL HYDROX/MG HYDROX/SIMETH 30 ML CUP PO SCH ×6 (01:00→20:02)
[2016-09-10] MEDS: VANCOMYCIN 750 MG in SOD CHLORIDE 0.9% 150 ML IVPB SCH ×2 (03:51→18:11)
[2016-09-10] MEDS: PANTOPRAZOLE IV 80 MG in SOD CHLORIDE 0.9% 100 ML IV SCH ×2 (05:30→14:21)
[2016-09-10] MEDS: TOBRAMYCIN 300 MG in SOD CHLORIDE 0.9% 100 ML IVPB SCH (05:31)
[2016-09-10 06:14] LABS: ADD SCAN DIFF NO; BASOPHILS % 0.1 % (0.0-2.0); EOSINOPHILS # 0.1 10^3/ul (0.0-0.5); EOSINOPHILS % 1.3 % (0.0-7.0); HEMATOCRIT 28.5 % (42.0-52.0); LYMPHOCYTES # 1.8 10^3/ul (0.8-2.9); LYMPHOCYTES % 17.1 % (15.0-51.0); MEAN CORPUSCULAR HEMOGLOBIN 25.9 pg (29.0-33.0); MEAN CORPUSCULAR HGB CONC 31.6 g/dl (32.0-37.0); MEAN CORPUSCULAR VOLUME 82.1 fl (82.0-101.0); MONOCYTE # 0.7 10^3/ul (0.3-0.9); MONOCYTES % 6.7 % (0.0-11.0); NEUTROPHILS % 74.1 % (39.0-77.0); NUCLEATED RED BLOOD CELLS% 0.4 /100WBC (0.0-0.0); PLATELET COUNT 363 10^3/UL (140-415); RED BLOOD COUNT 3.47 10^6/ul (4.70-6.10); RED CELL DISTRIBUTION WIDTH 19.8 % (11.5-14.5); WHITE BLOOD COUNT 10.7 10^3/ul (4.8-10.8)
[2016-09-10 06:45] LABS: POTASSIUM 3.8 mmol/L (3.5-5.1)
[2016-09-10 06:48] LABS: CREATININE 0.57 mg/dl (0.61-1.24)
[2016-09-10 06:49] LABS: CALCIUM 8.7 mg/dl (8.4-10.2)
--- NOTE | 2016-09-10 11:16 | PN ---
Date/Time of Note Date/Time of Note DATE: 09/10/16 TIME: 11:15 Assessment/Plan VTE Prophylaxis VTE Prophylaxis Intervention: SCD's Lines/Catheters IV Catheter Type (from Nrs): Peripheral IV Urinary Cath still in place: Yes Reason Cath still needed: urinary retention Assessment/Plan Chief Complaint/Hosp Course ASSESSMENT AND PLAN: - Upper gastrointestinal bleeding secondary to gastrostomy site ulcer disease. Continue Protonix. Dr. Pryor is following the patient in gastroenterology consultation. Continue IV fluids. - Anemia 2 to GI bleed, no indication for blood transfusion, monitor H&H. - Dehydration secondary to vomiting, resolved. - S/p sepsis with Staph bacteremia [address] Godfrey is following in ID consultation. Continue abx per ID. 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 - Ventilator-dependent respiratory failure with tracheostomy. Dr. Morrison is following from pulmonology standpoint. Continue bronchodilators and pulmonary toilet. - Dysphagia, pending J-tube placement. - Chronic obstructive pulmonary disease. - Chronic Chaudhari catheter. - Colostomy - Hypertension. - Bedbound status. - Acute kidney injury, resolved. - MRSA UTI , continue Vanco. - MRSA of nares. Continue Bactroban. - Hypernatremia, continue D5W with potassium supplement, continue to monitor electrolytes. - Intermittent atrial tachycardia. Dr. Broderick is is following in cardiology consultation, continue telemetry monitoring. Monitor electrolytes. Continue sequential compression device for deep venous thrombosis prophylaxis and Protonix for peptic ulcer disease prophylaxis. Further recommendations based on clinical course. Plan of care discussed with Dr. Meeks. Problems: Subjective 24 Hr Interval Summary Free Text/Dictation NGT draining green gastric secretions, pt is afebrile. Exam/Review of Systems Vital Signs Vitals Vital Signs Date Time Temp Pulse Resp B/P Pulse Ox O2 Delivery O2 Flow Rate FiO2 09/10/16 09:00 84 16 100 40 09/10/16 08:04 98.2 131/79 Intake and Output 09/09/16 09/09/16 09/10/16 15:00 23:00 07:00 Intake Total 0 ml 860 ml Output Total 650 ml 950 ml Balance -650 ml -90 ml Exam GENERAL: Well-developed, cachectic gentleman currently obtunded on ventilator support via tracheostomy. HEENT: Pupils equal, round, reactive to light and accommodation. NECK: Supple, no cervical lymphadenopathy, no thyromegaly. Tracheostomy the base of the neck with small amount of secretions. LUNGS: Rhonchi bilaterally, slightly diminished at the bases. CARDIOVASCULAR: Normal S1, S2. No murmurs, gallops, clicks, rubs noted. ABDOMEN: Flat, soft, nondistended, nontender. Bowel sounds hypoactive. Patient has left lower quadrant colostomy with pink, moist stoma. GENITOURINARY: The patient also has a Chaudhari catheter. EXTREMITIES: No edema, clubbing, cyanosis. Pulses equal bilaterally 2+. Lower extremities contracted. SKIN: There is no rash, petechiae noted. The patient has a sacral decubitus ulcer stage II. See nursing notes for further description. NEUROLOGIC: Patient does not follow any commands. Results Result Diagram: 09/10/16 0509/10/16554 Results 24 hrs Laboratory Tests Test 09/10/16 05:55 Anion Gap 12 Basophils # 0.0 Basophils % 0.1 Blood Urea Nitrogen 7 Calcium Level 8.7 Carbon Dioxide Level 28 Chloride Level 113 H Creatinine 0.57 L Eosinophils # 0.1 Eosinophils % 1.3 Glucose Level 97 Hematocrit 28.5 L Hemoglobin 9.0 L Lymphocytes # 1.8 Lymphocytes % 17.1 Mean Corpuscular Hemoglobin 25.9 L Mean Corpuscular Hemoglobin Concent 31.6 L Mean Corpuscular Volume 82.1 Mean Platelet Volume 13.0 H Monocytes # 0.7 Monocytes % 6.7 Neutrophils # 8.0 H Neutrophils % 74.1 Nucleated Red Blood Cells # 0.0 Nucleated Red Blood Cells % 0.4 H Platelet Count 363 Potassium Level 3.8 Red Blood Count 3.47 L Red Cell Distribution Width 19.8 H Sodium Level 149 H White Blood Count 10.7 Medications Medications Current Medications Pantoprazole/ Sodium Chloride (Protonix Iv/NS) 100 ml @ 10 mls/hr Q10H IV Last administered on 09/10/16 05:30; Admin Dose 10 MLS/HR; Start 09/01/16 at 21: 00 Mupirocin (Bactroban) 1 applic BID TOP Last administered on 09/09/16 21:32; Admin Dose 1 APPLIC; Start 09/02/16 at 12:00 Collagenase 1 applic 1 applic DAILY TOP Last administered on 09/09/16 10:29; Admin Dose 1 APPLIC; Start 09/02/16 at 11:30 Levofloxacin/ Dextrose (Levaquin 750 Mg/ D5W 150 ml (Pmx)) 150 ml @ 100 mls/hr Q24H IVPB Last administered on 09/09/16 10:54; Admin Dose 100 MLS/HR; Start 09/05/16 at 11:30 Tobramycin (Tobramycin Iv Per Pharmacy) TOBRAMYCIN PER PHARMACY NOTE XX ; Start 09/06/16 at 12:30 Al Hydrox/Mg Hydrox/ Simethicone 30 ml 30 ml Q4 PO Last administered on 04:17; Admin Dose 30 ML; Start 09/07/16 at 18:00 Potassium Chloride 20 meq/ Dextrose 1,010 ml @ 80 mls/hr [id number] IV Last administered on 09/09/16 18:53; Admin Dose 80 MLS/HR; Start 09/08/16 at 17:00 Tobramycin 300 mg/ Sodium Chloride 107.5 ml @ 103.75 mls/ hr Q36H IVPB Last administered on 09/10/16 05:31; Admin Dose 103.75 MLS/HR; Start 09/10/16 at 06: 00 Vancomycin HCl/ Sodium Chloride (Vancocin/NS) 150 ml @ 75 mls/hr Q12H IVPB Last administered on 09/10/16 03:51; Admin Dose 75 MLS/HR; Start 09/09/16 at 16: 00 Miscellaneous Information (*Rx Drug Level Order Reminder*) 1 ONCE ONCE XX ; Start 09/11/16 at 03:00; Stop 09/11/16 at 03:01 AMY MORAN Sep 10, 2016 11:16
--- NOTE | 2016-09-10 11:44 | CONS ---
Date/Time of Note Date/Time of Note DATE: 09/10/16 TIME: 11:41 Assessment/Plan Assessment/Plan Additional Assessment/Plan Ventilator settings; AC of 16, tidal volume 500, PEEP of 5, 40% FiO2. Assessment and recommendations; 1. Chronic respiratory failure. 2. Severe anoxic brain injury. 3. Healthcare associated pneumonia. Currently on broad-spectrum antibiotic coverage. 4. Patient awaiting J-tube replacement. Continue current supportive care. Consultation Date/Type/Reason Admit Date/Time Aug 31, 2016 at 14:59 Initial Consult Date 09/01/16 Type of Consultation: Pulmonary Referring Provider: MARIO ROWE 24 HR Interval Summary Free Text/Dictation Patient condition remains stable. Remains unresponsive, on mechanical ventilation. Has remained hemodynamically stable. General examination; elderly male, currently in no distress. On ventilator via tracheostomy. Exam/Review of Systems Vital Signs Vitals Vital Signs Date Time Temp Pulse Resp B/P Pulse Ox O2 Delivery O2 Flow Rate FiO2 09/10/16 09:00 84 16 100 40 09/10/16 08:04 98.2 131/79 Intake and Output 09/09/16 09/09/16 09/10/16 15:00 23:00 07:00 Intake Total 0 ml 860 ml Output Total 650 ml 950 ml Balance -650 ml -90 ml Exam HEENT examination; supple neck, no JVD. Patient is edentulous. Tracheostomy in place with clean insertion site. No neck masses. No thyromegaly. Chest examination; diminished but clear breath sounds bilaterally. S1-S2 audible, no murmurs. Regular rhythm. Abdomen examination; soft, scaphoid. No organomegaly. Bowel sounds are audible. Colostomy in place Extremity examination; no peripheral edema. Patient has contractures involving all 4 extremities. JERKER examination; patient remains completely unresponsive. Results Result Diagram: 09/10/16 0555 09/10/16 0555 Results 24 hrs Laboratory Tests Test 09/10/16 05:55 Anion Gap 12 Basophils # 0.0 Basophils % 0.1 Blood Urea Nitrogen 7 Calcium Level 8.7 Carbon Dioxide Level 28 Chloride Level 113 H Creatinine 0.57 L Eosinophils # 0.1 Eosinophils % 1.3 Glucose Level 97 Hematocrit 28.5 L Hemoglobin 9.0 L Lymphocytes # 1.8 Lymphocytes % 17.1 Mean Corpuscular Hemoglobin 25.9 L Mean Corpuscular Hemoglobin Concent 31.6 L Mean Corpuscular Volume 82.1 Mean Platelet Volume 13.0 H Monocytes # 0.7 Monocytes % 6.7 Neutrophils # 8.0 H Neutrophils % 74.1 Nucleated Red Blood Cells # 0.0 Nucleated Red Blood Cells % 0.4 H Platelet Count 363 Potassium Level 3.8 Red Blood Count 3.47 L Red Cell Distribution Width 19.8 H Sodium Level 149 H White Blood Count 10.7 Medications Medications Current Medications Pantoprazole/ Sodium Chloride (Protonix Iv/NS) 100 ml @ 10 mls/hr Q10H IV Last administered on 09/10/16 05:30; Admin Dose 10 MLS/HR; Start 09/01/16 at 21: 00 Mupirocin (Bactroban) 1 applic BID TOP Last administered on 09/09/16 21:32; Admin Dose 1 APPLIC; Start 09/02/16 at 12:00 Collagenase 1 applic 1 applic DAILY TOP Last administered on 09/09/16 10:29; Admin Dose 1 APPLIC; Start 09/02/16 at 11:30 Levofloxacin/ Dextrose (Levaquin 750 Mg/ D5W 150 ml (Pmx)) 150 ml @ 100 mls/hr Q24H IVPB Last administered on 09/09/16 10:54; Admin Dose 100 MLS/HR; Start 09/05/16 at 11:30 Tobramycin (Tobramycin Iv Per Pharmacy) TOBRAMYCIN PER PHARMACY NOTE XX ; Start 09/06/16 at 12:30 Al Hydrox/Mg Hydrox/ Simethicone 30 ml 30 ml Q4 PO Last administered on 04:17; Admin Dose 30 ML; Start 09/07/16 at 18:00 Potassium Chloride 20 meq/ Dextrose 1,010 ml @ 80 mls/hr [id number] IV Last administered on 09/09/16 18:53; Admin Dose 80 MLS/HR; Start 09/08/16 at 17:00 Tobramycin 300 mg/ Sodium Chloride 107.5 ml @ 103.75 mls/ hr Q36H IVPB Last administered on 09/10/16 05:31; Admin Dose 103.75 MLS/HR; Start 09/10/16 at 06: 00 Vancomycin HCl/ Sodium Chloride (Vancocin/NS) 150 ml @ 75 mls/hr Q12H IVPB Last administered on 09/10/16t 03:51; Admin Dose 75 MLS/HR; Start 09/09/16 at 16: 00 Miscellaneous Information (*Rx Drug Level Order Reminder*) 1 ONCE ONCE XX ; Start 09/11/16 at 03:00; Stop 09/11/16 at 03:01 SHAAN BUTT Sep 10, 2016 11:43
--- NOTE | 2016-09-10 12:01 | CONS ---
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 the wound culture grew carbapenemase producing kleb, enterococci and pseudo - leakage of gastric contents from GT site, now has ostomy bag - infection of wound of RLE due to pseudomonas. 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 I recommend covering MRSA, and bacteria in the abdominal wound and RLE wound as much as possible - continue IV vancomycin (09/02/2016-) for MRSA, planned through 09/12/2016 - continue IV tobramycin (09/06/2016-) for pseudomonas, planned through 09/20/2016 - continue levofloxacin (09/05/2016-) intermediate activity against carbapenemase producing kleb, planned through 09/12/2016 - complete 10 day course of mupirocin for MRSA decolonization (09/02/2016-) management d/w Dr. Pryor Problems: Consultation Date/Type/Reason Admit Date/Time Aug 31, 2016 at 14:59 Initial Consult Date 09/01/16 Type of Consultation: ID Referring Provider: MARIO ROWE 24 HR Interval Summary Subjective hx not possible: pt non-verbal Exam/Review of Systems Vital Signs Vitals Vital Signs Date Time Temp Pulse Resp B/P Pulse Ox O2 Delivery O2 Flow Rate FiO2 09/10/16 11:47 98.0 98 19 125/80 100 09/10/16 09:00 40 Intake and Output 09/09/16 09/09/16 09/10/16 15:00 23:00 07:00 Intake Total 0 ml 860 ml Output Total 650 ml 950 ml Balance -650 ml -90 ml Exam Constitutional: frail, non-verbal Psych: confusion Head: atraumatic, other (temporal wasting) Eyes: nl conjunctiva, nl lids ENMT: nl external ears & nose, other (NGT) Neck: other (trach) Respiratory: diminished breath sounds Cardiovascular: nl pulses, regular rate and rhythm Gastrointestinal: other (ostomy and colostomy are present), soft, No distended, No firm Musculoskeletal: other (atrophy) Extremities: No edema Neurological: confused, unresponsive Skin: rash or lesions (lateral RLE, no erythema) Results Result Diagram: 09/10/16 0555 09/10/16 0555 Results 24 hrs Laboratory Tests Test 09/10/16 05:55 Anion Gap 12 Basophils # 0.0 Basophils % 0.1 Blood Urea Nitrogen 7 Calcium Level 8.7 Carbon Dioxide Level 28 Chloride Level 113 H Creatinine 0.57 L Eosinophils # 0.1 Eosinophils % 1.3 Glucose Level 97 Hematocrit 28.5 L Hemoglobin 9.0 L Lymphocytes # 1.8 Lymphocytes % 17.1 Mean Corpuscular Hemoglobin 25.9 L Mean Corpuscular Hemoglobin Concent 31.6 L Mean Corpuscular Volume 82.1 Mean Platelet Volume 13.0 H Monocytes # 0.7 Monocytes % 6.7 Neutrophils # 8.0 H Neutrophils % 74.1 Nucleated Red Blood Cells # 0.0 Nucleated Red Blood Cells % 0.4 H Platelet Count 363 Potassium Level 3.8 Red Blood Count 3.47 L Red Cell Distribution Width 19.8 H Sodium Level 149 H White Blood Count 10.7 Medications Medications Current Medications Pantoprazole/ Sodium Chloride (Protonix Iv/NS) 100 ml @ 10 mls/hr Q10H IV Last administered on 09/10/16 05:30; Admin Dose 10 MLS/HR; Start 09/01/16 at 21: 00 Mupirocin (Bactroban) 1 applic BID TOP Last administered on 09/09/16 21:32; Admin Dose 1 APPLIC; Start 09/02/16 at 12:00 Collagenase 1 applic 1 applic DAILY TOP Last administered on 09/09/16 10:29; Admin Dose 1 APPLIC; Start 09/02/16 at 11:30 Levofloxacin/ Dextrose (Levaquin 750 Mg/ D5W 150 ml (Pmx)) 150 ml @ 100 mls/hr Q24H IVPB Last administered on 09/09/16 10:54; Admin Dose 100 MLS/HR; Start 09/05/16 at 11:30 Tobramycin (Tobramycin Iv Per Pharmacy) TOBRAMYCIN PER PHARMACY NOTE XX ; Start 09/06/16 at 12:30 Al Hydrox/Mg Hydrox/ Simethicone 30 ml 30 ml Q4 PO Last administered on 04:17; Admin Dose 30 ML; Start 09/07/16 at 18:00 Potassium Chloride 20 meq/ Dextrose 1,010 ml @ 80 mls/hr [id number] IV Last administered on 09/09/16 18:53; Admin Dose 80 MLS/HR; Start 09/08/16 at 17:00 Tobramycin 300 mg/ Sodium Chloride 107.5 ml @ 103.75 mls/ hr Q36H IVPB Last administered on 09/10/16 05:31; Admin Dose 103.75 MLS/HR; Start 09/10/16 at 06: 00 Vancomycin HCl/ Sodium Chloride (Vancocin/NS) 150 ml @ 75 mls/hr Q12H IVPB Last administered on 09/10/16 03:51; Admin Dose 75 MLS/HR; Start 09/09/16 at 16: 00 Miscellaneous Information (*Rx Drug Level Order Reminder*) 1 ONCE ONCE XX ; Start 09/11/16 at 03:00; Stop 09/11/16 at 03:01 LIZZY HECK M.D. Sep 10, 2016 12:01
--- NOTE | 2016-09-10 12:36 | PN ---
DATE: CHIEF COMPLAINT: The patient is unable to talk. HISTORY OF PRESENT ILLNESS: The history at this time includes the patient came with history of uppe r gastrointestinal bleeding. He had a gastric ulcer at the site of the gastrostomy and hence the G- tube was removed. He has nasogastric suction draining greenish material. Greenish liquid also drai jia from the gastrostomy site. He does have ____ resistant Klebsiella type of organism for which patient is sensitive to Levaquin. The infectious disease enterprise resource planning consultant is on the case. CLINICAL IMPRESSION: Gastric ulcer, gastrostomy site is still open. PLAN: At this time, continue present management. In the next few days the patient might benefit fr om a percutaneous endoscopic gastrostomy tube for feeding and to help heal the ulcer. Dictated By: KATELYN FERRARI/NTS Conf#: [id number] DID#: [id number] CC: KATELYN SILVERMAN MD;*EndCC*
[2016-09-10] MEDS: LEVOFLOXACIN 750MG/D5W (PMX) 150 ML IVPB SCH (13:40)
[2016-09-10] MEDS: MUPIROCIN 2% 22 GM OINT TOP SCH ×2 (13:41→20:02)
[2016-09-10] MEDS: POTASSIUM CHLORIDE 20 MEQ in DEXTROSE 5% 1,000 ML IV SCH ×2 (13:42→19:32)
[2016-09-10] MEDS: COLLAGENASE 30 GM TUBE TOP SCH (13:43)
[2016-09-10] MEDS ORDERED: MAGNESIUM SULFATE 1 GM/D5W 100 ML IVPB ONE (14:00)
[2016-09-10] MEDS ORDERED: POTASSIUM CHLORIDE 250 ML IVPB ONE (14:00)
--- NOTE | 2016-09-10 14:02 | CONS ---
Date/Time of Note Date/Time of Note DATE: 09/10/16 TIME: 13:59 Assessment/Plan Assessment/Plan Additional Assessment/Plan Intermittent atrial tachycardia Frequent PACs and PVCs Preserved ejection fraction Hematemesis Respiratory failure Encephalopathy NSVT -Patient with less arrhythmias with improvement of potassium and magnesium. Supplement to maintain potassium above 4.0 and magnesium above 2.0. Given brief and less often episodes, no need for AV carly blocking agents at the current time. Consultation Date/Type/Reason Admit Date/Time Aug 31, 2016 at 14:59 Initial Consult Date 09/02/16 Type of Consultation: cv Referring Provider: MARIO ROWE 24 HR Interval Summary Free Text/Dictation Patient seen and examined Exam/Review of Systems Vital Signs Vitals Vital Signs Date Time Temp Pulse Resp B/P Pulse Ox O2 Delivery O2 Flow Rate FiO2 09/10/16 13:00 72 20 99 40 09/10/16 11:47 98.0 125/80 Intake and Output 09/09/16 09/09/16 09/10/16 15:00 23:00 07:00 Intake Total 0 ml 860 ml Output Total 650 ml 950 ml Balance -650 ml -90 ml Exam No response to verbal stimuli, no apparent distress ENMT: other (Tracheostomy) Respiratory: other (Coarse breath sounds bilaterally, no wheezing) Cardiovascular: other (S1-S2 heard), regular rate and rhythm Gastrointestinal: bowel sounds, other (No grimacing with palpation, no guarding ), soft Extremities: other (No edema) Results Result Diagram: 09/10/16 0555 09/10/16 0555 Results 24 hrs Laboratory Tests Test 09/10/16 05:55 Anion Gap 12 Basophils # 0.0 Basophils % 0.1 Blood Urea Nitrogen 7 Calcium Level 8.7 Carbon Dioxide Level 28 Chloride Level 113 H Creatinine 0.57 L Eosinophils # 0.1 Eosinophils % 1.3 Glucose Level 97 Hematocrit 28.5 L Hemoglobin 9.0 L Lymphocytes # 1.8 Lymphocytes % 17.1 Mean Corpuscular Hemoglobin 25.9 L Mean Corpuscular Hemoglobin Concent 31.6 L Mean Corpuscular Volume 82.1 Mean Platelet Volume 13.0 H Monocytes # 0.7 Monocytes % 6.7 Neutrophils # 8.0 H Neutrophils % 74.1 Nucleated Red Blood Cells # 0.0 Nucleated Red Blood Cells % 0.4 H Platelet Count 363 Potassium Level 3.8 Red Blood Count 3.47 L Red Cell Distribution Width 19.8 H Sodium Level 149 H White Blood Count 10.7 Medications Medications Current Medications Pantoprazole/ Sodium Chloride (Protonix Iv/NS) 100 ml @ 10 mls/hr Q10H IV Last administered on 09/10/16 05:30; Admin Dose 10 MLS/HR; Start 09/01/16 at 21: 00 Mupirocin (Bactroban) 1 applic BID TOP Last administered on 09/10/16 13:41; Admin Dose 1 APPLIC; Start 09/02/16 at 12:00 Collagenase 1 applic 1 applic DAILY TOP Last administered on 09/10/16 13:43; Admin Dose 1 APPLIC; Start 09/02/16 at 11:30 Levofloxacin/ Dextrose (Levaquin 750 Mg/ D5W 150 ml (Pmx)) 150 ml @ 100 mls/hr Q24H IVPB Last administered on 09/10/16 13:40; Admin Dose 100 MLS/HR; Start at 11:30 Tobramycin (Tobramycin Iv Per Pharmacy) TOBRAMYCIN PER PHARMACY NOTE XX ; Start 09/06/16 at 12:30 Al Hydrox/Mg Hydrox/ Simethicone 30 ml 30 ml Q4 PO Last administered on 13:41; Admin Dose 30 ML; Start 09/07/16 at 18:00 Potassium Chloride 20 meq/ Dextrose 1,010 ml @ 80 mls/hr [id number] IV Last administered on 09/10/16 13:42; Admin Dose 80 MLS/HR; Start 09/08/16 at 17:00 Tobramycin 300 mg/ Sodium Chloride 107.5 ml @ 103.75 mls/ hr Q36H IVPB Last administered on 09/10/16 05:31; Admin Dose 103.75 MLS/HR; Start 09/10/16 at 06: 00 Vancomycin HCl/ Sodium Chloride (Vancocin/NS) 150 ml @ 75 mls/hr Q12H IVPB Last administered on 09/10/16 03:51; Admin Dose 75 MLS/HR; Start 09/09/16 at 16: 00 Miscellaneous Information (*Rx Drug Level Order Reminder*) 1 ONCE ONCE XX ; Start 09/11/16 at 03:00; Stop 09/11/16 at 03:01 Maynor Broderick DO Sep 10, 2016 14:02
[2016-09-11] VITALS (23 sets, daily range): BP systolic 129–153; BP diastolic 75–90; PULSE 70–89; RESP 15–22
[2016-09-11] MEDS: PANTOPRAZOLE IV 80 MG in SOD CHLORIDE 0.9% 100 ML IV SCH ×5 (01:00→21:00)
[2016-09-11] MEDS: AL HYDROX/MG HYDROX/SIMETH 30 ML CUP PO SCH ×6 (01:55→21:14)
[2016-09-11 03:52] LABS: CREATININE 0.56 mg/dl (0.61-1.24); POTASSIUM 4.6 mmol/L (3.5-5.1)
[2016-09-11] MEDS: VANCOMYCIN 750 MG in SOD CHLORIDE 0.9% 150 ML IVPB SCH (04:18)
[2016-09-11 07:20] LABS: ADD SCAN DIFF NO
[2016-09-11 07:32] LABS: BASOPHIL # 0.1 10^3/ul (0.0-0.1); BASOPHILS % 0.5 % (0.0-2.0); EOSINOPHILS # 0.1 10^3/ul (0.0-0.5); EOSINOPHILS % 1.2 % (0.0-7.0); HEMATOCRIT 32.2 % (42.0-52.0); HEMOGLOBIN 10.3 g/dl (14.0-18.0); LYMPHOCYTES # 2.1 10^3/ul (0.8-2.9); LYMPHOCYTES % 20.5 % (15.0-51.0); MEAN CORPUSCULAR HEMOGLOBIN 26.6 pg (29.0-33.0); MEAN CORPUSCULAR HGB CONC 31.9 g/dl (32.0-37.0); MEAN CORPUSCULAR VOLUME 83.1 fl (82.0-101.0); MEAN PLATELET VOLUME 10.7 fl (7.4-10.4); MONOCYTE # 0.9 10^3/ul (0.3-0.9); MONOCYTES % 8.7 % (0.0-11.0); NEUTROPHILS % 69.1 % (39.0-77.0); NUCLEATED RED BLOOD CELLS% 5.7 /100WBC (0.0-0.0); PLATELET COUNT 283 10^3/UL (140-440); RED BLOOD COUNT 3.87 10^6/ul (4.70-6.10); RED CELL DISTRIBUTION WIDTH 19.7 % (11.5-14.5); WHITE BLOOD COUNT 10.2 10^3/ul (4.8-10.8)
[2016-09-11 07:47] LABS: NUCLEATED RED BLOOD CELLS # 0.6 10^3/ul (0.0-0.0)
[2016-09-11] MEDS: POTASSIUM CHLORIDE 20 MEQ in DEXTROSE 5% 1,000 ML IV SCH ×3 (08:10→20:48)
[2016-09-11] MEDS: MUPIROCIN 2% 22 GM OINT TOP SCH ×2 (08:50→21:14)
[2016-09-11] MEDS: COLLAGENASE 30 GM TUBE TOP SCH (08:52)
--- NOTE | 2016-09-11 11:24 | PN ---
Date/Time of Note Date/Time of Note DATE: 09/11/16 TIME: 11:23 Assessment/Plan VTE Prophylaxis VTE Prophylaxis Intervention: SCD's Lines/Catheters IV Catheter Type (from Nrs): Peripheral IV Urinary Cath still in place: Yes Reason Cath still needed: urinary retention Assessment/Plan Assessment/Plan Intermittent atrial tachycardia Frequent PACs and PVCs Preserved ejection fraction Hematemesis Respiratory failure Encephalopathy NSVT -Patient with less arrhythmias with improvement of potassium and magnesium. - Supplement to maintain potassium above 4.0 and magnesium above 2.0. Given brief and less often episodes, no need for AV carly blocking agents at the current time. Subjective 24 Hr Interval Summary Free Text/Dictation The patinet with no change and doing well Exam/Review of Systems Vital Signs Vitals Vital Signs Date Time Temp Pulse Resp B/P Pulse Ox O2 Delivery O2 Flow Rate FiO2 09/11/16 11:06 98.3 75 18 138/75 98 09/11/16 09:05 40 Intake and Output 09/10/16 09/10/16 09/11/16 15:00 23:00 07:00 Intake Total 150 ml 320 ml Output Total 1150 ml 480 ml Balance -1000 ml -160 ml Results Result Diagram: 09/11/16 0635 09/11/16 0315 Results 24 hrs Laboratory Tests Test 09/11/16 03:15 09/11/16 06:35 Anion Gap 16 Blood Urea Nitrogen 7 Calcium Level 9.0 Carbon Dioxide Level 23 Chloride Level 111 H Creatinine 0.56 L Glucose Level 97 Magnesium Level 1.8 Potassium Level 4.6 Sodium Level 145 H Vancomycin Level Trough 17.1 Basophils # 0.1 Basophils % 0.5 Blood Morphology Comment Eosinophils # 0.1 Eosinophils % 1.2 Hematocrit 32.2 L Hemoglobin 10.3 L Lymphocytes # 2.1 Lymphocytes % 20.5 Mean Corpuscular Hemoglobin 26.6 L Mean Corpuscular Hemoglobin Concent 31.9 L Mean Corpuscular Volume 83.1 Mean Platelet Volume 10.7 H Monocytes # 0.9 Monocytes % 8.7 Neutrophils # 7.0 Neutrophils % 69.1 Nucleated Red Blood Cells # 0.6 H Nucleated Red Blood Cells % 5.7 H Platelet Count 283 # Red Blood Count 3.87 L Red Cell Distribution Width 19.7 H White Blood Count 10.2 Medications Medications Current Medications Pantoprazole/ Sodium Chloride (Protonix Iv/NS) 100 ml @ 10 mls/hr Q10H IV Last administered on 09/11/16 03:39; Admin Dose 10 MLS/HR; Start 09/01/16 at 21: 00 Mupirocin (Bactroban) 1 applic BID TOP Last administered on 09/11/16 08:50; Admin Dose 1 APPLIC; Start 09/02/16 at 12:00 Collagenase 1 applic 1 applic DAILY TOP Last administered on 09/11/16 08:52; Admin Dose 1 APPLIC; Start 09/02/16 at 11:30 Levofloxacin/ Dextrose (Levaquin 750 Mg/ D5W 150 ml (Pmx)) 150 ml @ 100 mls/hr Q24H IVPB Last administered on 09/10/16 13:40; Admin Dose 100 MLS/HR; Start at 11:30 Tobramycin (Tobramycin Iv Per Pharmacy) TOBRAMYCIN PER PHARMACY NOTE XX ; Start 09/06/16 at 12:30 Al Hydrox/Mg Hydrox/ Simethicone 30 ml 30 ml Q4 PO Last administered on 08:50; Admin Dose 30 ML; Start 09/07/16 at 18:00 Potassium Chloride 20 meq/ Dextrose 1,010 ml @ 80 mls/hr [id number] IV Last administered on 09/10/16 13:42; Admin Dose 80 MLS/HR; Start 09/08/16 at 17:00 Tobramycin/Sodium Chloride (Tobramycin/NS) 107.5 ml @ 103.75 mls/ hr Q36H IVPB Last administered on 09/10/16 05:31; Admin Dose 103.75 MLS/HR; Start at 06:00 Miscellaneous Information 1 ONCE ONCE XX ; Start 09/11/16 at 03:00; Stop at 03:01 Vancomycin HCl (Vancocin) 100 ml @ 100 mls/hr Q12H IVPB ; Start 09/11/16 at 16: 00 YUSUF OWENS MD Sep 11, 2016 11:24
[2016-09-11] MEDS: LEVOFLOXACIN 750MG/D5W (PMX) 150 ML IVPB SCH (11:33)
--- NOTE | 2016-09-11 12:14 | PN ---
Date/Time of Note Date/Time of Note DATE: 09/11/16 TIME: 12:13 Assessment/Plan VTE Prophylaxis VTE Prophylaxis Intervention: other Lines/Catheters IV Catheter Type (from Nrs): Peripheral IV Urinary Cath still in place: Yes Reason Cath still needed: urinary retention Assessment/Plan Assessment/Plan 1. Upper gastrointestinal bleeding secondary to gastrostomy site ulcer disease. - Continue Protonix. - per Dr. Pryor in gastroenterology consultation. Continue IV fluids. 2. Dehydration secondary to vomiting- none at present 3. Sepsis with Staph bacteremia. - per Dr Godfrey is following in ID consultation. Continue abx per ID. - Anemia 2 to GI bleed, no indication for blood transfusion, monitor H&H. 4. Episodes of atrial tachycardia. - per Dr. Broderick in cardiology consultation, continue telemetry monitoring. Monitor electrolytes. 5. Ventilator-dependent respiratory failure with tracheostomy. - per Dr. Morrison from pulmonology standpoint. Continue bronchodilators and pulmonary toilet. 5. Dysphagia, pending J-tube placement. - aspiration precautions 6. Chronic obstructive pulmonary disease. 7. Chronic Chaudhari catheter. 8. Colostomy 9. Hypertension. 10. Bedbound status. 11. Acute kidney injury. Continue to monitor BUN and creatinine. Continue IV fluids. 12 MRSA UTI , continue Vanco. 13. Hypernatremia, continue D5W with potassium supplement, continue to monitor electrolytes. 14. 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 15. leukocytosis- improving Continue sequential compression device for deep venous thrombosis prophylaxis and Protonix for peptic ulcer disease prophylaxis. Further recommendations based on clinical course. Plan of care discussed with Dr. Meeks. Subjective 24 Hr Interval Summary Free Text/Dictation nad, seems comfotable, no new issues reported by staff, Subjective hx not possible: pt non-verbal Constitutional: requiring IVF, requiring O2 Exam/Review of Systems Vital Signs Vitals Vital Signs Date Time Temp Pulse Resp B/P Pulse Ox O2 Delivery O2 Flow Rate FiO2 09/11/16 11:20 77 17 100 40 09/11/16 11:06 98.3 138/75 Intake and Output 09/10/16 09/10/16 09/11/16 15:00 23:00 07:00 Intake Total 150 ml 320 ml Output Total 1150 ml 480 ml Balance -1000 ml -160 ml Exam Constitutional: frail Psych: nl mood/affect Head: other (sub dural hematoma) Eyes: nl sclera ENMT: nl external ears & nose Neck: non-tender Respiratory: diminished breath sounds Cardiovascular: nl pulses Gastrointestinal: non-tender, other, soft Musculoskeletal: muscle weakness Extremities: normal pulses Neurological: confused, lethargic Lymph: nontender Results Result Diagram: 09/11/16 0635 09/11/16 0315 Results 24 hrs Laboratory Tests Test 09/11/16 03:15 09/11/16 06:35 Anion Gap 16 Blood Urea Nitrogen 7 Calcium Level 9.0 Carbon Dioxide Level 23 Chloride Level 111 H Creatinine 0.56 L Glucose Level 97 Magnesium Level 1.8 Potassium Level 4.6 Sodium Level 145 H Vancomycin Level Trough 17.1 Basophils # 0.1 Basophils % 0.5 Blood Morphology Comment Eosinophils # 0.1 Eosinophils % 1.2 Hematocrit 32.2 L Hemoglobin 10.3 L Lymphocytes # 2.1 Lymphocytes % 20.5 Mean Corpuscular Hemoglobin 26.6 L Mean Corpuscular Hemoglobin Concent 31.9 L Mean Corpuscular Volume 83.1 Mean Platelet Volume 10.7 H Monocytes # 0.9 Monocytes % 8.7 Neutrophils # 7.0 Neutrophils % 69.1 Nucleated Red Blood Cells # 0.6 H Nucleated Red Blood Cells % 5.7 H Platelet Count 283 # Red Blood Count 3.87 L Red Cell Distribution Width 19.7 H White Blood Count 10.2 Medications Medications Current Medications Pantoprazole/ Sodium Chloride (Protonix Iv/NS) 100 ml @ 10 mls/hr Q10H IV Last administered on 09/11/16 03:39; Admin Dose 10 MLS/HR; Start 09/01/16 at 21: 00 Mupirocin (Bactroban) 1 applic BID TOP Last administered on 09/11/16 08:50; Admin Dose 1 APPLIC; Start 09/02/16 at 12:00 Collagenase 1 applic 1 applic DAILY TOP Last administered on 09/11/16 08:52; Admin Dose 1 APPLIC; Start 09/02/16 at 11:30 Levofloxacin/ Dextrose (Levaquin 750 Mg/ D5W 150 ml (Pmx)) 150 ml @ 100 mls/hr Q24H IVPB Last administered on 09/11/16 11:33; Admin Dose 100 MLS/HR; Start at 11:30 Tobramycin (Tobramycin Iv Per Pharmacy) TOBRAMYCIN PER PHARMACY NOTE XX ; Start 09/06/16 at 12:30 Al Hydrox/Mg Hydrox/ Simethicone 30 ml 30 ml Q4 PO Last administered on 08:50; Admin Dose 30 ML; Start 09/07/16 at 18:00 Potassium Chloride 20 meq/ Dextrose 1,010 ml @ 80 mls/hr [id number] IV Last administered on 09/10/16 13:42; Admin Dose 80 MLS/HR; Start 09/08/16 at 17:00 Tobramycin/Sodium Chloride (Tobramycin/NS) 107.5 ml @ 103.75 mls/ hr Q36H IVPB Last administered on 09/10/16 05:31; Admin Dose 103.75 MLS/HR; Start at 06:00 Miscellaneous Information 1 ONCE ONCE XX ; Start 09/11/16 at 03:00; Stop at 03:01 Vancomycin HCl (Vancocin) 100 ml @ 100 mls/hr Q12H IVPB ; Start 09/11/16 at 16: 00 MARIO ROWE Sep 11, 2016 12:14
[2016-09-11] MEDS: VANCOMYCIN 500MG/NS (PMX) 100 ML IVPB SCH (15:56)
[2016-09-11] MEDS: TOBRAMYCIN 300 MG in SOD CHLORIDE 0.9% 100 ML IVPB SCH (17:07)
--- NOTE | 2016-09-11 18:43 | CONS ---
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 the wound culture grew carbapenemase producing kleb, enterococci and pseudo - leakage of gastric contents from GT site, now has ostomy bag - infection of wound of RLE due to pseudomonas. 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 I recommend covering MRSA, and bacteria in the abdominal wound and RLE wound as much as possible - continue IV vancomycin (09/02/2016-) for MRSA, planned through 09/12/2016 - continue IV tobramycin (09/06/2016-) for pseudomonas, planned through 09/20/2016 - continue levofloxacin (09/05/2016-) intermediate activity against carbapenemase producing kleb, planned through 09/12/2016 - complete 10 day course of mupirocin for MRSA decolonization (09/02/2016-) - Above d/w Dr. Tang Problems: Consultation Date/Type/Reason Admit Date/Time Aug 31, 2016 at 14:59 Initial Consult Date 09/02/16 Type of Consultation: Infectious Disease Referring Provider: MARIO ROWE Exam/Review of Systems Vital Signs Vitals Vital Signs Date Time Temp Pulse Resp B/P Pulse Ox O2 Delivery O2 Flow Rate FiO2 09/11/16 17:20 90 18 100 40 09/11/16 15:30 98.1 153/90 Intake and Output 09/10/16 09/10/16 09/11/16 15:00 23:00 07:00 Intake Total 150 ml 320 ml Output Total 1150 ml 480 ml Balance -1000 ml -160 ml Exam Constitutional: frail, other (non-communicative; chronically debilitated, cachectic ) Head: atraumatic, normocephalic, other (temporal wasting noted) Neck: other (trach midline) Respiratory: diminished breath sounds Cardiovascular: nl pulses, regular rate and rhythm Gastrointestinal: bowel sounds, other (NGT to sxn with greenish output; colostomy intact - stoma pink/no stool; gastric ulcer at old G tube site still open with greenish drainage into ostomy bag), soft Genitourinary - Male: other (vincent cath intact wtih hazy carla urine) Musculoskeletal: muscle weakness Extremities: normal pulses, other (bilateral foot drop noted), No clubbing, No cyanosis, No edema Neurological: unresponsive Skin: other (RLE dressing c/d/i) Results Result Diagram: 09/11/16 0635 09/11/16 0315 Results 24 hrs Laboratory Tests Test 09/11/16 03:15 09/11/16 06:35 Anion Gap 16 Blood Urea Nitrogen 7 Calcium Level 9.0 Carbon Dioxide Level 23 Chloride Level 111 H Creatinine 0.56 L Glucose Level 97 Magnesium Level 1.8 Potassium Level 4.6 Sodium Level 145 H Vancomycin Level Trough 17.1 Basophils # 0.1 Basophils % 0.5 Blood Morphology Comment Eosinophils # 0.1 Eosinophils % 1.2 Hematocrit 32.2 L Hemoglobin 10.3 L Lymphocytes # 2.1 Lymphocytes % 20.5 Mean Corpuscular Hemoglobin 26.6 L Mean Corpuscular Hemoglobin Concent 31.9 L Mean Corpuscular Volume 83.1 Mean Platelet Volume 10.7 H Monocytes # 0.9 Monocytes % 8.7 Neutrophils # 7.0 Neutrophils % 69.1 Nucleated Red Blood Cells # 0.6 H Nucleated Red Blood Cells % 5.7 H Platelet Count 283 # Red Blood Count 3.87 L Red Cell Distribution Width 19.7 H White Blood Count 10.2 Medications Medications Current Medications Pantoprazole/ Sodium Chloride (Protonix Iv/NS) 100 ml @ 10 mls/hr Q10H IV Last administered on 09/11/16 15:56; Admin Dose 10 MLS/HR; Start 09/01/16 at 21: 00 Mupirocin (Bactroban) 1 applic BID TOP Last administered on 09/11/16 08:50; Admin Dose 1 APPLIC; Start 09/02/16 at 12:00 Collagenase 1 applic 1 applic DAILY TOP Last administered on 09/11/16 08:52; Admin Dose 1 APPLIC; Start 09/02/16 at 11:30 Levofloxacin/ Dextrose (Levaquin 750 Mg/ D5W 150 ml (Pmx)) 150 ml @ 100 mls/hr Q24H IVPB Last administered on 09/11/16 11:33; Admin Dose 100 MLS/HR; Start at 11:30 Tobramycin (Tobramycin Iv Per Pharmacy) TOBRAMYCIN PER PHARMACY NOTE XX ; Start 09/06/16 at 12:30 Al Hydrox/Mg Hydrox/ Simethicone 30 ml 30 ml Q4 PO Last administered on 17:06; Admin Dose 30 ML; Start 09/07/16 at 18:00 Potassium Chloride 20 meq/ Dextrose 1,010 ml @ 80 mls/hr [id number] IV Last administered on 09/11/16 12:51; Admin Dose 80 MLS/HR; Start 09/08/16 at 17:00 Tobramycin/Sodium Chloride (Tobramycin/NS) 107.5 ml @ 103.75 mls/ hr Q36H IVPB Last administered on 09/11/16 17:07; Admin Dose 103.75 MLS/HR; Start at 06:00 Miscellaneous Information 1 ONCE ONCE XX ; Start 09/11/16 at 03:00; Stop at 03:01 Vancomycin HCl (Vancocin) 100 ml @ 100 mls/hr Q12H IVPB Last administered on 15:56; Admin Dose 100 MLS/HR; Start 09/11/16 at 16:00 Procedures Procedures CXR 09/08/16: . Stable bilateral multi focal airspace disease greatest right most compatible with pneumonia. No other interval change. Abdomen X-ray 09/08/16: Nasogastric tube with distal tip in the region of the gastroesophageal junction. Recommend advancement by approximately 6 cm.. KO LOVING NP Sep 11, 2016 18:43
--- NOTE | 2016-09-11 19:26 | CONS ---
Date/Time of Note Date/Time of Note DATE: 09/11/16 TIME: 19:24 Consult Date/Type/Reason Admit Date/Time Aug 31, 2016 at 14:59 Initial Consult Date 09/02/16 Type of Consultation: Pulm Ordering Provider: MARIO ROWE Subjective No events. on [facility] vent. Objective Vital Signs Date Time Temp Pulse Resp B/P Pulse Ox O2 Delivery O2 Flow Rate FiO2 09/11/16 17:20 90 18 100 40 09/11/16 15:30 98.1 153/90 Intake and Output 09/10/16 09/10/16 09/11/16 15:00 23:00 07:00 Intake Total 150 ml 320 ml Output Total 1150 ml 480 ml Balance -1000 ml -160 ml HEENT: Neck supple; no JVD; no LAD CVS: RRR, S1 and S2 CHEST: Coarse BS b/l ABD: Soft, NT, + BS EXT: No c/c/ + edema Results/Medications Result Diagram: 09/11/16 0635 09/11/16 0315 Results 24 hrs Laboratory Tests Test 09/11/16 03:15 09/11/16 06:35 Anion Gap 16 Blood Urea Nitrogen 7 Calcium Level 9.0 Carbon Dioxide Level 23 Chloride Level 111 H Creatinine 0.56 L Glucose Level 97 Magnesium Level 1.8 Potassium Level 4.6 Sodium Level 145 H Vancomycin Level Trough 17.1 Basophils # 0.1 Basophils % 0.5 Blood Morphology Comment Eosinophils # 0.1 Eosinophils % 1.2 Hematocrit 32.2 L Hemoglobin 10.3 L Lymphocytes # 2.1 Lymphocytes % 20.5 Mean Corpuscular Hemoglobin 26.6 L Mean Corpuscular Hemoglobin Concent 31.9 L Mean Corpuscular Volume 83.1 Mean Platelet Volume 10.7 H Monocytes # 0.9 Monocytes % 8.7 Neutrophils # 7.0 Neutrophils % 69.1 Nucleated Red Blood Cells # 0.6 H Nucleated Red Blood Cells % 5.7 H Platelet Count 283 # Red Blood Count 3.87 L Red Cell Distribution Width 19.7 H White Blood Count 10.2 Medications Current Medications Pantoprazole/ Sodium Chloride (Protonix Iv/NS) 100 ml @ 10 mls/hr Q10H IV Last administered on 09/11/16t 15:56; Admin Dose 10 MLS/HR; Start 09/01/16 at 21: 00 Mupirocin (Bactroban) 1 applic BID TOP Last administered on 09/11/16 08:50; Admin Dose 1 APPLIC; Start 09/02/16 at 12:00 Collagenase 1 applic 1 applic DAILY TOP Last administered on 09/11/16 08:52; Admin Dose 1 APPLIC; Start 09/02/16 at 11:30 Levofloxacin/ Dextrose (Levaquin 750 Mg/ D5W 150 ml (Pmx)) 150 ml @ 100 mls/hr Q24H IVPB Last administered on 09/11/16 11:33; Admin Dose 100 MLS/HR; Start at 11:30 Tobramycin (Tobramycin Iv Per Pharmacy) TOBRAMYCIN PER PHARMACY NOTE XX ; Start 09/06/16 at 12:30 Al Hydrox/Mg Hydrox/ Simethicone 30 ml 30 ml Q4 PO Last administered on 17:06; Admin Dose 30 ML; Start 09/07/16 at 18:00 Potassium Chloride 20 meq/ Dextrose 1,010 ml @ 80 mls/hr [id number] IV Last administered on 09/11/16 12:51; Admin Dose 80 MLS/HR; Start 09/08/16 at 17:00 Tobramycin/Sodium Chloride (Tobramycin/NS) 107.5 ml @ 103.75 mls/ hr Q36H IVPB Last administered on 09/11/16 17:07; Admin Dose 103.75 MLS/HR; Start at 06:00 Miscellaneous Information 1 ONCE ONCE XX ; Start 09/11/16 at 03:00; Stop at 03:01 Vancomycin HCl (Vancocin) 100 ml @ 100 mls/hr Q12H IVPB Last administered on 15:56; Admin Dose 100 MLS/HR; Start 09/11/16 at 16:00 Assessment/Plan Additional Assessment/Plan IMP: 1. VDRF 2. Encephalopathy 3. s/p GIB 4. s/p sepsis 5. Anemia RECS: 1. Vent support 2. BD's/CPT as needed. ABAD CHAVEZ MD Sep 11, 2016 19:26
[2016-09-12] VITALS (23 sets, daily range): BP systolic 127–145; BP diastolic 69–83; PULSE 70–110; RESP 16–26
[2016-09-12] MEDS: AL HYDROX/MG HYDROX/SIMETH 30 ML CUP PO SCH ×6 (02:10→20:49)
[2016-09-12] MEDS: PANTOPRAZOLE IV 80 MG in SOD CHLORIDE 0.9% 100 ML IV SCH ×4 (02:11→16:58)
[2016-09-12] MEDS: POTASSIUM CHLORIDE 20 MEQ in DEXTROSE 5% 1,000 ML IV SCH ×3 (03:51→21:30)
[2016-09-12] MEDS: VANCOMYCIN 500MG/NS (PMX) 100 ML IVPB SCH ×2 (03:51→16:58)
[2016-09-12 07:49] LABS: ALBUMIN 2.5 g/dl (3.3-4.9)
[2016-09-12 07:50] LABS: POTASSIUM 3.4 mmol/L (3.5-5.1)
[2016-09-12 07:52] LABS: ALBUMIN/GLOBULIN RATIO 0.64; BILIRUBIN,INDIRECT 0.1 mg/dl (0-1.1); BILIRUBIN,TOTAL 0.1 mg/dl (0.2-1.3); CREATININE 0.68 mg/dl (0.61-1.24); TOTAL PROTEIN 6.4 g/dl (6.1-8.1)
[2016-09-12] MEDS: MUPIROCIN 2% 22 GM OINT TOP SCH ×2 (08:43→20:49)
[2016-09-12] MEDS: COLLAGENASE 30 GM TUBE TOP SCH (08:45)
[2016-09-12] MEDS: LEVOFLOXACIN 750MG/D5W (PMX) 150 ML IVPB SCH (12:34)
--- NOTE | 2016-09-12 13:24 | PN ---
Date/Time of Note Date/Time of Note DATE: 09/12/16 TIME: 13:23 Assessment/Plan VTE Prophylaxis VTE Prophylaxis Intervention: SCD's Lines/Catheters IV Catheter Type (from Nrs): Peripheral IV Urinary Cath still in place: Yes Reason Cath still needed: urinary retention Assessment/Plan Assessment/Plan - Upper gastrointestinal bleeding secondary to gastrostomy site ulcer disease. Continue Protonix. Dr. Pryor is following the patient in gastroenterology consultation. Continue IV fluids. - Anemia 2 to GI bleed, no indication for blood transfusion, monitor H&H. - Dehydration secondary to vomiting, resolved. - S/p sepsis with Staph bacteremia [address] Godfrey is following in ID consultation. Continue abx per ID. 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 - Ventilator-dependent respiratory failure with tracheostomy. Dr. Morrison is following from pulmonology standpoint. Continue bronchodilators and pulmonary toilet. - Dysphagia, pending J-tube placement. - Chronic obstructive pulmonary disease. - Chronic Chaudhari catheter. - Colostomy - Hypertension. - Bedbound status. - Acute kidney injury, resolved. - MRSA UTI , continue Vanco. - MRSA of nares. Continue Bactroban. - Hypernatremia, continue D5W with potassium supplement, continue to monitor electrolytes. - Intermittent atrial tachycardia. Dr. Broderick is is following in cardiology consultation, continue telemetry monitoring. Monitor electrolytes. - Hypokalemia- replet K - am labs Continue sequential compression device for deep venous thrombosis prophylaxis and Protonix for peptic ulcer disease prophylaxis. Further recommendations based on clinical course. Plan of care discussed with Dr. Meeks. Subjective 24 Hr Interval Summary Free Text/Dictation NAD, remains intubated, seems comfortable, dw staff. Subjective hx not possible: pt non-verbal Constitutional: requiring IVF, requiring O2 Exam/Review of Systems Vital Signs Vitals Vital Signs Date Time Temp Pulse Resp B/P Pulse Ox O2 Delivery O2 Flow Rate FiO2 09/12/16 12:32 85 09/12/16 12:03 97.7 17 127/77 100 09/12/16 11:05 40 Intake and Output 09/11/16 09/11/16 09/12/16 15:00 23:00 07:00 Intake Total 150 ml 537.5 ml 0 ml Output Total 900 ml 780 ml Balance 150 ml -362.5 ml -780 ml Exam Constitutional: non-verbal Eyes: PERRL, nl sclera ENMT: nl external ears & nose Neck: non-tender Respiratory: diminished breath sounds Cardiovascular: nl pulses Gastrointestinal: non-tender, soft Musculoskeletal: muscle weakness Neurological: lethargic Skin: other Lymph: nontender Results Result Diagram: 09/11/16 0635 09/12/16 0550 Results 24 hrs Laboratory Tests Test 09/12/16 05:50 Alanine Aminotransferase (ALT/SGPT) 16 Albumin 2.5 L Albumin/Globulin Ratio 0.64 Alkaline Phosphatase 61 Anion Gap 13 Aspartate Amino Transf (AST/SGOT) 16 Blood Urea Nitrogen 7 Calcium Level 9.0 Carbon Dioxide Level 28 Chloride Level 104 Creatinine 0.68 Direct Bilirubin 0.00 Globulin 3.90 H Glucose Level 94 Indirect Bilirubin 0.1 Potassium Level 3.4 L Sodium Level 142 Total Bilirubin 0.1 L Total Protein 6.4 Medications Medications Current Medications Pantoprazole/ Sodium Chloride (Protonix Iv/NS) 100 ml @ 10 mls/hr Q10H IV Last administered on 09/12/16 12:38; Admin Dose 10 MLS/HR; Start 09/01/16 at 21: 00 Mupirocin (Bactroban) 1 applic BID TOP Last administered on 09/12/16 08:43; Admin Dose 1 APPLIC; Start 09/02/16 at 12:00 Collagenase 1 applic 1 applic DAILY TOP Last administered on 09/12/16 08:45; Admin Dose 1 APPLIC; Start 09/02/16 at 11:30 Levofloxacin/ Dextrose (Levaquin 750 Mg/ D5W 150 ml (Pmx)) 150 ml @ 100 mls/hr Q24H IVPB Last administered on 09/12/16 12:34; Admin Dose 100 MLS/HR; Start at 11:30 Tobramycin (Tobramycin Iv Per Pharmacy) TOBRAMYCIN PER PHARMACY NOTE XX ; Start 09/06/16 at 12:30 Al Hydrox/Mg Hydrox/ Simethicone 30 ml 30 ml Q4 PO Last administered on 12:34; Admin Dose 30 ML; Start 09/07/16 at 18:00 Potassium Chloride 20 meq/ Dextrose 1,010 ml @ 80 mls/hr [id number] IV Last administered on 09/12/16 03:51; Admin Dose 80 MLS/HR; Start 09/08/16 at 17:00 Tobramycin 300 mg/ Sodium Chloride 107.5 ml @ 103.75 mls/ hr Q36H IVPB Last administered on 09/11/16 17:07; Admin Dose 103.75 MLS/HR; Start 09/10/16 at 06: 00 Vancomycin HCl (Vancocin) 100 ml @ 100 mls/hr Q12H IVPB Last administered on 03:51; Admin Dose 100 MLS/HR; Start 09/11/16 at 16:00 Miscellaneous Information (*Rx Drug Level Order Reminder*) TOBRAMYCIN TROUGH AT 0500 ONCE ONCE XX ; Start 09/13/16 at 05:00; Stop 09/13/16 at 05:01 MARIO ROWE Sep 12, 2016 13:24
[2016-09-12] MEDS ORDERED: POTASSIUM CHLORIDE 20 MEQ in SOD CHLORIDE 0.9% 100 ML IVPB ONE (14:15)
--- NOTE | 2016-09-12 16:35 | CONS ---
Date/Time of Note Date/Time of Note DATE: 09/12/16 TIME: 16:34 Consult Date/Type/Reason Admit Date/Time Aug 31, 2016 at 14:59 Initial Consult Date 09/02/16 Type of Consultation: Pulm Ordering Provider: MARIO ROWE Subjective No events on [facility] ventilation. Objective Vital Signs Date Time Temp Pulse Resp B/P Pulse Ox O2 Delivery O2 Flow Rate FiO2 09/12/16 16:00 97.9 91 18 134/69 95 09/12/16 15:00 40 Intake and Output 09/11/16 09/11/16 09/12/16 15:00 23:00 07:00 Intake Total 150 ml 537.5 ml 0 ml Output Total 900 ml 780 ml Balance 150 ml -362.5 ml -780 ml HEENT: Neck supple; no JVD; no LAD CVS: RRR, S1 and S2 CHEST: Coarse BS b/l ABD: Soft, NT, + BS EXT: No c/c/ + edema Results/Medications Result Diagram: 09/11/16 0635 09/12/16 0550 Results 24 hrs Laboratory Tests Test 09/12/16 05:50 Alanine Aminotransferase (ALT/SGPT) 16 Albumin 2.5 L Albumin/Globulin Ratio 0.64 Alkaline Phosphatase 61 Anion Gap 13 Aspartate Amino Transf (AST/SGOT) 16 Blood Urea Nitrogen 7 Calcium Level 9.0 Carbon Dioxide Level 28 Chloride Level 104 Creatinine 0.68 Direct Bilirubin 0.00 Globulin 3.90 H Glucose Level 94 Indirect Bilirubin 0.1 Potassium Level 3.4 L Sodium Level 142 Total Bilirubin 0.1 L Total Protein 6.4 Medications Current Medications Pantoprazole/ Sodium Chloride (Protonix Iv/NS) 100 ml @ 10 mls/hr Q10H IV Last administered on 09/12/16 12:38; Admin Dose 10 MLS/HR; Start 09/01/16 at 21: 00 Mupirocin (Bactroban) 1 applic BID TOP Last administered on 09/12/16 08:43; Admin Dose 1 APPLIC; Start 09/02/16 at 12:00 Collagenase 1 applic 1 applic DAILY TOP Last administered on 09/12/16 08:45; Admin Dose 1 APPLIC; Start 09/02/16 at 11:30 Levofloxacin/ Dextrose (Levaquin 750 Mg/ D5W 150 ml (Pmx)) 150 ml @ 100 mls/hr Q24H IVPB Last administered on 09/12/16 12:34; Admin Dose 100 MLS/HR; Start at 11:30 Tobramycin (Tobramycin Iv Per Pharmacy) TOBRAMYCIN PER PHARMACY NOTE XX ; Start 09/06/16 at 12:30 Al Hydrox/Mg Hydrox/ Simethicone 30 ml 30 ml Q4 PO Last administered on 12:34; Admin Dose 30 ML; Start 09/07/16 at 18:00 Potassium Chloride 20 meq/ Dextrose 1,010 ml @ 80 mls/hr [id number] IV Last administered on 09/12/16 03:51; Admin Dose 80 MLS/HR; Start 09/08/16 at 17:00 Tobramycin 300 mg/ Sodium Chloride 107.5 ml @ 103.75 mls/ hr Q36H IVPB Last administered on 09/11/16 17:07; Admin Dose 103.75 MLS/HR; Start 09/10/16 at 06: 00 Vancomycin HCl (Vancocin) 100 ml @ 100 mls/hr Q12H IVPB Last administered on 03:51; Admin Dose 100 MLS/HR; Start 09/11/16 at 16:00 Miscellaneous Information (*Rx Drug Level Order Reminder*) TOBRAMYCIN TROUGH AT 0500 ONCE ONCE XX ; Start 09/13/16 at 05:00; Stop 09/13/16 at 05:01 Assessment/Plan Additional Assessment/Plan IMP: 1. VDRF 2. Encephalopathy 3. s/p GIB 4. s/p sepsis 5. Anemia RECS: 1. Vent support 2. BD's/CPT as needed. 3. Daily H/H 4. Replete K+ ABAD CHAVEZ MD Sep 12, 2016 16:35
--- NOTE | 2016-09-12 19:30 | CONS ---
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 the wound culture grew carbapenemase producing kleb, enterococci and pseudo - leakage of gastric contents from GT site, now has ostomy bag - infection of wound of RLE due to pseudomonas. 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 I recommend covering MRSA, and bacteria in the abdominal wound and RLE wound as much as possible - discontinue IV vancomycin (09/02/2016-) for MRSA after today's dose - discontinue levofloxacin (09/05/2016-) intermediate activity against carbapenemase producing kleb, after today's dose - continue IV tobramycin (09/06/2016-) for pseudomonas, planned through 09/20/2016 - complete 10 day course of mupirocin for MRSA decolonization (09/02/2016-) - Above d/w Dr. Tang Problems: Consultation Date/Type/Reason Admit Date/Time Aug 31, 2016 at 14:59 Initial Consult Date 09/02/16 Type of Consultation: Infectious Disease Referring Provider: MARIO ROWE 24 HR Interval Summary Free Text/Dictation Remains non-communicative, trached on ventilator, NGT to sxn, and on Protonix gtt. Exam/Review of Systems Vital Signs Vitals Vital Signs Date Time Temp Pulse Resp B/P Pulse Ox O2 Delivery O2 Flow Rate FiO2 09/12/16 17:20 86 26 100 40 09/12/16 16:00 97.9 134/69 Intake and Output 09/11/16 09/11/16 09/12/16 15:00 23:00 07:00 Intake Total 150 ml 537.5 ml 0 ml Output Total 900 ml 780 ml Balance 150 ml -362.5 ml -780 ml Exam Constitutional: frail, other (non-communicative; chronically debilitated, cachectic ) Head: atraumatic, normocephalic, other (temporal wasting noted) Neck: other (trach midline) Respiratory: Coarse breath sounds Cardiovascular: nl pulses, regular rate and rhythm Gastrointestinal: bowel sounds, other (NGT to sxn with greenish output; colostomy intact - stoma pink/no stool; gastric ulcer at old G tube site still open with greenish drainage into ostomy bag), soft Genitourinary - Male: other (vincent cath intact wtih hazy carla urine) Musculoskeletal: muscle weakness Extremities: normal pulses, other (bilateral foot drop noted), trace edema No clubbing, No cyanosis Neurological: unresponsive Skin: other (RLE dressing c/d/i) Results Result Diagram: 09/11/16 0635 09/12/16 0550 Results 24 hrs Laboratory Tests Test 09/12/16 05:50 Alanine Aminotransferase (ALT/SGPT) 16 Albumin 2.5 L Albumin/Globulin Ratio 0.64 Alkaline Phosphatase 61 Anion Gap 13 Aspartate Amino Transf (AST/SGOT) 16 Blood Urea Nitrogen 7 Calcium Level 9.0 Carbon Dioxide Level 28 Chloride Level 104 Creatinine 0.68 Direct Bilirubin 0.00 Globulin 3.90 H Glucose Level 94 Indirect Bilirubin 0.1 Potassium Level 3.4 L Sodium Level 142 Total Bilirubin 0.1 L Total Protein 6.4 Medications Medications Current Medications Pantoprazole/ Sodium Chloride (Protonix Iv/NS) 100 ml @ 10 mls/hr Q10H IV Last administered on 09/12/16 12:38; Admin Dose 10 MLS/HR; Start 09/01/16 at 21: 00 Mupirocin (Bactroban) 1 applic BID TOP Last administered on 09/12/16 08:43; Admin Dose 1 APPLIC; Start 09/02/16 at 12:00 Collagenase 1 applic 1 applic DAILY TOP Last administered on 09/12/16 08:45; Admin Dose 1 APPLIC; Start 09/02/16 at 11:30 Levofloxacin/ Dextrose (Levaquin 750 Mg/ D5W 150 ml (Pmx)) 150 ml @ 100 mls/hr Q24H IVPB Last administered on 09/12/16 12:34; Admin Dose 100 MLS/HR; Start at 11:30 Tobramycin (Tobramycin Iv Per Pharmacy) TOBRAMYCIN PER PHARMACY NOTE XX ; Start 09/06/16 at 12:30 Al Hydrox/Mg Hydrox/ Simethicone 30 ml 30 ml Q4 PO Last administered on 16:59; Admin Dose 30 ML; Start 09/07/16 at 18:00 Potassium Chloride 20 meq/ Dextrose 1,010 ml @ 80 mls/hr [id number] IV Last administered on 09/12/16 03:51; Admin Dose 80 MLS/HR; Start 09/08/16 at 17:00 Tobramycin 300 mg/ Sodium Chloride 107.5 ml @ 103.75 mls/ hr Q36H IVPB Last administered on 09/11/16 17:07; Admin Dose 103.75 MLS/HR; Start 09/10/16 at 06: 00 Vancomycin HCl (Vancocin) 100 ml @ 100 mls/hr Q12H IVPB Last administered on 16:58; Admin Dose 100 MLS/HR; Start 09/11/16 at 16:00 Miscellaneous Information (*Rx Drug Level Order Reminder*) TOBRAMYCIN TROUGH AT 0500 ONCE ONCE XX ; Start 09/13/16 at 05:00; Stop 09/13/16 at 05:01 KO LOVING NP Sep 12, 2016 19:28
[2016-09-13] VITALS (24 sets, daily range): BP systolic 120–137; BP diastolic 76–84; PULSE 66–92; RESP 15–22
[2016-09-13] MEDS: PANTOPRAZOLE IV 80 MG in SOD CHLORIDE 0.9% 100 ML IV SCH ×4 (00:40→23:00)
[2016-09-13] MEDS: AL HYDROX/MG HYDROX/SIMETH 30 ML CUP PO SCH ×6 (00:40→20:14)
[2016-09-13 05:59] LABS: POTASSIUM 3.9 mmol/L (3.5-5.1)
[2016-09-13 06:02] LABS: CREATININE 0.73 mg/dl (0.61-1.24)
[2016-09-13 06:03] LABS: CALCIUM 8.6 mg/dl (8.4-10.2)
[2016-09-13] MEDS: TOBRAMYCIN 300 MG in SOD CHLORIDE 0.9% 100 ML IVPB SCH (06:08)
[2016-09-13 06:28] LABS: EOSINOPHILS # 0.2 10^3/ul (0.0-0.5); EOSINOPHILS % 2.3 % (0.0-7.0); HEMATOCRIT 30.3 % (42.0-52.0); HEMOGLOBIN 9.7 g/dl (14.0-18.0); LYMPHOCYTES # 1.8 10^3/ul (0.8-2.9); MEAN CORPUSCULAR HEMOGLOBIN 26.3 pg (29.0-33.0); MEAN CORPUSCULAR VOLUME 82.1 fl (82.0-101.0); MEAN PLATELET VOLUME 11.7 fl (7.4-10.4); MONOCYTES % 13.5 % (0.0-11.0); NEUTROPHIL # 4.8 10^3/ul (1.6-7.5); NEUTROPHILS % 61.2 % (39.0-77.0); PLATELET COUNT 389 10^3/UL (140-440); RED BLOOD COUNT 3.69 10^6/ul (4.70-6.10); UNCORRECTED WBC 7.8 10^3/ul (4.8-10.8); WHITE BLOOD COUNT 7.8 10^3/ul (4.8-10.8)
[2016-09-13 06:33] LABS: CONDITION 1; LH ANALYZER COMMENTS 1; SUSPECT 1
[2016-09-13] MEDS: MUPIROCIN 2% 22 GM OINT TOP SCH ×2 (08:57→20:14)
[2016-09-13] MEDS: COLLAGENASE 30 GM TUBE TOP SCH (08:57)
--- NOTE | 2016-09-13 10:30 | CONS ---
Date/Time of Note Date/Time of Note DATE: 09/13/16 TIME: 10:27 Assessment/Plan Assessment/Plan Additional Assessment/Plan Assessment and recommendations; 1. Chronic respiratory failure due to severe anoxic encephalopathy. Patient remains ventilator dependent. 2. Pneumonia. 3. History of prior colostomy. 4. Patient awaiting replacement of J-tube. Continue current treatment. Prognosis remains poor. Consultation Date/Type/Reason Admit Date/Time Aug 31, 2016 at 14:59 Initial Consult Date 09/01/16 Type of Consultation: Pulmonary Referring Provider: MARIO ROWE 24 HR Interval Summary Free Text/Dictation Patient condition remains stable. Still ventilator dependent owing to severe anoxic encephalopathy. Has remained hemodynamically stable. General examination; elderly male, on mechanical ventilation via tracheostomy. Unresponsive and currently in no distress. Exam/Review of Systems Vital Signs Vitals Vital Signs Date Time Temp Pulse Resp B/P Pulse Ox O2 Delivery O2 Flow Rate FiO2 09/13/16 09:45 91 09/13/16 08:44 97.6 19 137/77 96 09/13/16 05:05 40 Intake and Output 09/12/16 09/12/16 09/13/16 15:00 23:00 07:00 Intake Total 150 ml 940 ml 817.5 ml Output Total 800 ml 1000 ml Balance 150 ml 140 ml -182.5 ml Exam H EENT examination; supple neck, tracheostomy in place with clean insertion site. No neck masses. No lymphadenopathy. Pupils are midsize. Patient is edentulous. No thyromegaly. Chest examination; diminished breath sounds bilaterally without any added sounds. S1-S2 audible, no murmurs. Regular rhythm. Abdomen examination; colostomy in place. No nondistended. No organomegaly. Bowel sounds audible. There is a dressing applied over the prior J-tube site. Extremity examination; no peripheral edema. FURNACE FITTER examination; patient remains completely unresponsive. Current ventilator settings are; assist control of 16, tidal volume 500, PEEP of 5, 40% FiO2. Results Result Diagram: 09/13/16 0505 09/13/16 0505 Results 24 hrs Laboratory Tests Test 09/13/16 05:05 Anion Gap 12 Basophils # 0.0 Basophils % 0.0 Blood Morphology Comment Blood Urea Nitrogen 7 Calcium Level 8.6 Carbon Dioxide Level 28 Chloride Level 101 Creatinine 0.73 Eosinophils # 0.2 Eosinophils % 2.3 Glucose Level 103 Hematocrit 30.3 L Hemoglobin 9.7 L Lymphocytes # 1.8 Lymphocytes % 23.0 Mean Corpuscular Hemoglobin 26.3 L Mean Corpuscular Hemoglobin Concent 32.0 Mean Corpuscular Volume 82.1 Mean Platelet Volume 11.7 H Monocytes # 1.0 H Monocytes % 13.5 H Neutrophils # 4.8 Neutrophils % 61.2 Nucleated Red Blood Cells # 0.0 Nucleated Red Blood Cells % 0.0 Platelet Count 389 # Potassium Level 3.9 Red Blood Count 3.69 L Red Cell Distribution Width 19.0 H Sodium Level 137 Tobramycin Level Trough 0.8 L White Blood Count 7.8 # Medications Medications Current Medications Pantoprazole/ Sodium Chloride (Protonix Iv/NS) 100 ml @ 10 mls/hr Q10H IV Last administered on 09/13/16 00:40; Admin Dose 10 MLS/HR; Start 09/01/16 at 21: 00 Mupirocin (Bactroban) 1 applic BID TOP Last administered on 09/13/16 08:57; Admin Dose 1 APPLIC; Start 09/02/16 at 12:00 Collagenase (Santyl) 1 applic DAILY TOP Last administered on 09/13/16 08:57; Admin Dose 1 APPLIC; Start 09/02/16 at 11:30 Tobramycin (Tobramycin Iv Per Pharmacy) TOBRAMYCIN PER PHARMACY NOTE XX ; Start 09/06/16 at 12:30 Al Hydrox/Mg Hydrox/ Simethicone 30 ml 30 ml Q4 PO Last administered on 08:57; Admin Dose 30 ML; Start 09/07/16 at 18:00 Potassium Chloride 20 meq/ Dextrose 1,010 ml @ 80 mls/hr [id number] IV Last administered on 09/12/16 21:30; Admin Dose 80 MLS/HR; Start 09/08/16 at 17:00 Tobramycin/Sodium Chloride (Tobramycin/NS) 107.5 ml @ 103.75 mls/ hr Q36H IVPB Last administered on 09/13/16 06:08; Admin Dose 103.75 MLS/HR; Start at 06:00 SHAAN BUTT Sep 13, 2016 10:30
[2016-09-13] MEDS: POTASSIUM CHLORIDE 20 MEQ in DEXTROSE 5% 1,000 ML IV SCH ×3 (10:42→23:20)
--- NOTE | 2016-09-13 13:34 | CONS ---
Date/Time of Note Date/Time of Note DATE: 09/13/16 TIME: 13:33 Assessment/Plan Assessment/Plan Additional Assessment/Plan Intermittent atrial tachycardia Frequent PACs and PVCs Preserved ejection fraction Hematemesis Respiratory failure Encephalopathy -Heart rate trend appears stable. Maintain potassium above 4.0 magnesium above 2.0. Consultation Date/Type/Reason Admit Date/Time Aug 31, 2016 at 14:59 Initial Consult Date 09/02/16 Type of Consultation: cv Referring Provider: MARIO ROWE 24 HR Interval Summary Free Text/Dictation Patient seen and examined Exam/Review of Systems Vital Signs Vitals Vital Signs Date Time Temp Pulse Resp B/P Pulse Ox O2 Delivery O2 Flow Rate FiO2 09/13/16 12:54 92 09/13/16 12:14 97.9 19 120/77 98 09/13/16 09:25 40 Intake and Output 09/12/16 09/12/16 09/13/16 15:00 23:00 07:00 Intake Total 150 ml 940 ml 817.5 ml Output Total 800 ml 1000 ml Balance 150 ml 140 ml -182.5 ml Exam No apparent distress, no response to verbal stimuli Neck: other (Tracheostomy) Respiratory: other (Coarse breath sounds bilaterally, no wheezing) Cardiovascular: other (S1-S2 heard), regular rate and rhythm Gastrointestinal: bowel sounds, non-tender, soft Extremities: other (No edema) Results Result Diagram: 09/13/16 0505 09/13/16 0505 Results 24 hrs Laboratory Tests Test 09/13/16 05:05 Anion Gap 12 Basophils # 0.0 Basophils % 0.0 Blood Morphology Comment Blood Urea Nitrogen 7 Calcium Level 8.6 Carbon Dioxide Level 28 Chloride Level 101 Creatinine 0.73 Eosinophils # 0.2 Eosinophils % 2.3 Glucose Level 103 Hematocrit 30.3 L Hemoglobin 9.7 L Lymphocytes # 1.8 Lymphocytes % 23.0 Mean Corpuscular Hemoglobin 26.3 L Mean Corpuscular Hemoglobin Concent 32.0 Mean Corpuscular Volume 82.1 Mean Platelet Volume 11.7 H Monocytes # 1.0 H Monocytes % 13.5 H Neutrophils # 4.8 Neutrophils % 61.2 Nucleated Red Blood Cells # 0.0 Nucleated Red Blood Cells % 0.0 Platelet Count 389 # Potassium Level 3.9 Red Blood Count 3.69 L Red Cell Distribution Width 19.0 H Sodium Level 137 Tobramycin Level Trough 0.8 L White Blood Count 7.8 # Medications Medications Current Medications Pantoprazole/ Sodium Chloride (Protonix Iv/NS) 100 ml @ 10 mls/hr Q10H IV Last administered on 09/13/16 12:24; Admin Dose 10 MLS/HR; Start 09/01/16 at 21: 00 Mupirocin (Bactroban) 1 applic BID TOP Last administered on 09/13/16 08:57; Admin Dose 1 APPLIC; Start 09/02/16 at 12:00 Collagenase (Santyl) 1 applic DAILY TOP Last administered on 09/13/16 08:57; Admin Dose 1 APPLIC; Start 09/02/16 at 11:30 Tobramycin (Tobramycin Iv Per Pharmacy) TOBRAMYCIN PER PHARMACY NOTE XX ; Start 09/06/16 at 12:30 Al Hydrox/Mg Hydrox/ Simethicone 30 ml 30 ml Q4 PO Last administered on 12:25; Admin Dose 30 ML; Start 09/07/16 at 18:00 Potassium Chloride 20 meq/ Dextrose 1,010 ml @ 80 mls/hr [id number] IV Last administered on 09/13/16 12:25; Admin Dose 80 MLS/HR; Start 09/08/16 at 17:00 Tobramycin/Sodium Chloride (Tobramycin/NS) 107.5 ml @ 103.75 mls/ hr Q36H IVPB Last administered on 09/13/16 06:08; Admin Dose 103.75 MLS/HR; Start at 06:00 Maynor Broderick DO Sep 13, 2016 13:34
[2016-09-13] MEDS ORDERED: MAGNESIUM SULFATE 2 GM/50 ML 50 ML IVPB ONE (14:00)
--- NOTE | 2016-09-13 15:08 | CONS ---
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 the wound culture grew carbapenemase producing kleb, enterococci and pseudo - leakage of gastric contents from GT site, now has ostomy bag - infection of wound of RLE due to pseudomonas. 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 I recommend covering MRSA, and bacteria in the abdominal wound and RLE wound as much as possible - discontinue IV vancomycin (09/02/2016-) for MRSA after today's dose - discontinue levofloxacin (09/05/2016-) intermediate activity against carbapenemase producing kleb, after today's dose - continue IV tobramycin (09/06/2016-) for pseudomonas, planned through 09/20/2016 - complete 10 day course of mupirocin for MRSA decolonization (09/02/2016-) Consultation Date/Type/Reason Admit Date/Time Aug 31, 2016 at 14:59 Initial Consult Date 09/02/16 Type of Consultation: cv Referring Provider: MARIO ROWE Exam/Review of Systems Vital Signs Vitals Vital Signs Date Time Temp Pulse Resp B/P Pulse Ox O2 Delivery O2 Flow Rate FiO2 09/13/16 12:54 92 09/13/16 12:14 97.9 19 120/77 98 09/13/16 09:25 40 Intake and Output 09/12/16 09/12/16 09/13/16 15:00 23:00 07:00 Intake Total 150 ml 940 ml 817.5 ml Output Total 800 ml 1000 ml Balance 150 ml 140 ml -182.5 ml Exam Constitutional: non-verbal Head: atraumatic, normocephalic Respiratory: crackles/rales, diminished breath sounds Cardiovascular: regular rate and rhythm Gastrointestinal: non-tender, soft Results Result Diagram: 09/13/16 0505 09/13/16 0505 Results 24 hrs Laboratory Tests Test 09/13/16 05:05 Anion Gap 12 Basophils # 0.0 Basophils % 0.0 Blood Morphology Comment Blood Urea Nitrogen 7 Calcium Level 8.6 Carbon Dioxide Level 28 Chloride Level 101 Creatinine 0.73 Eosinophils # 0.2 Eosinophils % 2.3 Glucose Level 103 Hematocrit 30.3 L Hemoglobin 9.7 L Lymphocytes # 1.8 Lymphocytes % 23.0 Mean Corpuscular Hemoglobin 26.3 L Mean Corpuscular Hemoglobin Concent 32.0 Mean Corpuscular Volume 82.1 Mean Platelet Volume 11.7 H Monocytes # 1.0 H Monocytes % 13.5 H Neutrophils # 4.8 Neutrophils % 61.2 Nucleated Red Blood Cells # 0.0 Nucleated Red Blood Cells % 0.0 Platelet Count 389 # Potassium Level 3.9 Red Blood Count 3.69 L Red Cell Distribution Width 19.0 H Sodium Level 137 Tobramycin Level Trough 0.8 L White Blood Count 7.8 # Medications Medications Current Medications Pantoprazole/ Sodium Chloride (Protonix Iv/NS) 100 ml @ 10 mls/hr Q10H IV Last administered on 09/13/16 12:24; Admin Dose 10 MLS/HR; Start 09/01/16 at 21: 00 Mupirocin (Bactroban) 1 applic BID TOP Last administered on 09/13/16 08:57; Admin Dose 1 APPLIC; Start 09/02/16 at 12:00 Collagenase (Santyl) 1 applic DAILY TOP Last administered on 09/13/16 08:57; Admin Dose 1 APPLIC; Start 09/02/16 at 11:30 Tobramycin (Tobramycin Iv Per Pharmacy) TOBRAMYCIN PER PHARMACY NOTE XX ; Start 09/06/16 at 12:30 Al Hydrox/Mg Hydrox/ Simethicone 30 ml 30 ml Q4 PO Last administered on 12:25; Admin Dose 30 ML; Start 09/07/16 at 18:00 Potassium Chloride 20 meq/ Dextrose 1,010 ml @ 80 mls/hr [id number] IV Last administered on 09/13/16 12:25; Admin Dose 80 MLS/HR; Start 09/08/16 at 17:00 Tobramycin 300 mg/ Sodium Chloride 107.5 ml @ 103.75 mls/ hr Q36H IVPB Last administered on 09/13/16 06:08; Admin Dose 103.75 MLS/HR; Start 09/10/16 at 06: 00 Magnesium Sulfate 50 ml @ 25 mls/hr ONCE ONCE IVPB ; Start 09/13/16 at 14:00; Stop 09/13/16 at 15:59 Potassium Chloride (KCl 10 MEQ/50 ML SW) 50 ml @ 50 mls/hr Q1H IVPB ; Start at 14:00; Stop 09/13/16 at 15:59 MARIBELL SUN MD Sep 13, 2016 15:08
[2016-09-13] MEDS: POTASSIUM CHLORIDE 50 ML IVPB SCH ×2 (15:33→15:48)
--- NOTE | 2016-09-13 18:24 | PN ---
Date/Time of Note Date/Time of Note DATE: 09/13/16 TIME: 18:23 Assessment/Plan VTE Prophylaxis VTE Prophylaxis Intervention: SCD's Lines/Catheters IV Catheter Type (from Nrs): Peripheral IV Central line still needed: Yes Urinary Cath still in place: Yes Reason Cath still needed: urinary retention Assessment/Plan Chief Complaint/Hosp Course ASSESSMENT AND PLAN: - Upper gastrointestinal bleeding secondary to gastrostomy site ulcer disease. Continue Protonix. Dr. Pryro is following the patient in gastroenterology consultation. Continue IV fluids. - Anemia 2 to GI bleed, no indication for blood transfusion, monitor H&H. - Dehydration secondary to vomiting, resolved. - S/p sepsis with Staph bacteremia [address] Godfrey is following in ID consultation. Continue abx per ID. 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 - Ventilator-dependent respiratory failure with tracheostomy. Dr. Morrison is following from pulmonology standpoint. Continue bronchodilators and pulmonary toilet. - Dysphagia, pending J-tube placement. - Chronic obstructive pulmonary disease. - Chronic Chaudhari catheter. - Colostomy - Hypertension. - Bedbound status. - Acute kidney injury, resolved. - MRSA UTI , continue Vanco. - MRSA of nares. Continue Bactroban. - Hypernatremia, continue D5W with potassium supplement, continue to monitor electrolytes. - Intermittent atrial tachycardia. Dr. Broderick is is following in cardiology consultation, continue telemetry monitoring. Monitor electrolytes. Continue sequential compression device for deep venous thrombosis prophylaxis and Protonix for peptic ulcer disease prophylaxis. Further recommendations based on clinical course. Plan of care discussed with Dr. Meeks. Problems: Subjective 24 Hr Interval Summary Free Text/Dictation Patient is afebrile, NG tube draining some greenish gastric secretions, no acute events per RN. Exam/Review of Systems Vital Signs Vitals Vital Signs Date Time Temp Pulse Resp B/P Pulse Ox O2 Delivery O2 Flow Rate FiO2 09/13/16 17:12 79 16 99 40 09/13/16 15:46 98.2 136/84 Intake and Output 09/12/16 09/12/16 09/13/16 15:00 23:00 07:00 Intake Total 150 ml 940 ml 817.5 ml Output Total 800 ml 1000 ml Balance 150 ml 140 ml -182.5 ml Exam GENERAL: Well-developed, cachectic gentleman currently obtunded on ventilator support via tracheostomy. HEENT: Pupils equal, round, reactive to light and accommodation. NECK: Supple, no cervical lymphadenopathy, no thyromegaly. Tracheostomy the base of the neck with small amount of secretions. LUNGS: Rhonchi bilaterally, slightly diminished at the bases. CARDIOVASCULAR: Normal S1, S2. No murmurs, gallops, clicks, rubs noted. ABDOMEN: Flat, soft, nondistended, nontender. Bowel sounds hypoactive. Patient has left lower quadrant colostomy with pink, moist stoma. GENITOURINARY: The patient also has a Chaudhari catheter. EXTREMITIES: No edema, clubbing, cyanosis. Pulses equal bilaterally 2+. Lower extremities contracted. SKIN: There is no rash, petechiae noted. The patient has a sacral decubitus ulcer stage II. See nursing notes for further description. NEUROLOGIC: Patient does not follow any commands. Results Result Diagram: 09/13/16 0505 09/13/16 0505 Results 24 hrs Laboratory Tests Test 09/13/16 05:05 Anion Gap 12 Basophils # 0.0 Basophils % 0.0 Blood Morphology Comment Blood Urea Nitrogen 7 Calcium Level 8.6 Carbon Dioxide Level 28 Chloride Level 101 Creatinine 0.73 Eosinophils # 0.2 Eosinophils % 2.3 Glucose Level 103 Hematocrit 30.3 L Hemoglobin 9.7 L Lymphocytes # 1.8 Lymphocytes % 23.0 Mean Corpuscular Hemoglobin 26.3 L Mean Corpuscular Hemoglobin Concent 32.0 Mean Corpuscular Volume 82.1 Mean Platelet Volume 11.7 H Monocytes # 1.0 H Monocytes % 13.5 H Neutrophils # 4.8 Neutrophils % 61.2 Nucleated Red Blood Cells # 0.0 Nucleated Red Blood Cells % 0.0 Platelet Count 389 # Potassium Level 3.9 Red Blood Count 3.69 L Red Cell Distribution Width 19.0 H Sodium Level 137 Tobramycin Level Trough 0.8 L White Blood Count 7.8 # Medications Medications Current Medications Pantoprazole/ Sodium Chloride (Protonix Iv/NS) 100 ml @ 10 mls/hr Q10H IV Last administered on 09/13/16 12:24; Admin Dose 10 MLS/HR; Start 09/01/16 at 21: 00 Mupirocin (Bactroban) 1 applic BID TOP Last administered on 09/13/16 08:57; Admin Dose 1 APPLIC; Start 09/02/16 at 12:00 Collagenase (Santyl) 1 applic DAILY TOP Last administered on 09/13/16 08:57; Admin Dose 1 APPLIC; Start 09/02/16 at 11:30 Tobramycin (Tobramycin Iv Per Pharmacy) TOBRAMYCIN PER PHARMACY NOTE XX ; Start 09/06/16 at 12:30 Al Hydrox/Mg Hydrox/ Simethicone 30 ml 30 ml Q4 PO Last administered on 17:31; Admin Dose 30 ML; Start 09/07/16 at 18:00 Potassium Chloride 20 meq/ Dextrose 1,010 ml @ 80 mls/hr [id number] IV Last administered on 09/13/16 12:25; Admin Dose 80 MLS/HR; Start 09/08/16 at 17:00 Tobramycin/Sodium Chloride (Tobramycin/NS) 107.5 ml @ 103.75 mls/ hr Q36H IVPB Last administered on 09/13/16 06:08; Admin Dose 103.75 MLS/HR; Start at 06:00 AMY MORAN Sep 13, 2016 18:24
--- NOTE | 2016-09-13 22:01 | CONS ---
DATE OF ADMISSION: 08/31/2016 DATE OF CONSULTATION: CHIEF COMPLAINT: The patient is nonverbal. SUBJECTIVE: He has a leaking gastrostomy site. OBJECTIVE FINDINGS: A couple of weeks ago, upper endoscopy showed evidence of a large ulcer at the site of the gastrostomy and, to facilitate healing of the ulcer, the G-tube was removed and nasogast ovi suction was put in. Now on examination, his gastrostomy site seems to be significantly healed a nd this may be the right time to insert a PEG for nutritional purposes. However, the gastrostomy si te showing evidence of a culture, which is positive for carbapenemase producing klebsiella and proba lamin enterococci. Whether this will cause spreading of the infection to the rest of the atmosphere i s not very clear. I discussed with Dr. Tang. He said he would look into that and he will give me advice whether a PEG can be pursued to give access for long-term nutritional support. Dictated By: KATELYN SILVERMAN MD NC/NTS Conf#: [id number] DID#: [id number] CC: KATELYN SILVERMAN MD; MARLA AKBAR MD;*EndCC*
[2016-09-14] VITALS (25 sets, daily range): BP systolic 116–128; BP diastolic 70–84; PULSE 66–100; RESP 16–21
[2016-09-14] MEDS: AL HYDROX/MG HYDROX/SIMETH 30 ML CUP PO SCH ×3 (01:34→09:00)
[2016-09-14] MEDS: POTASSIUM CHLORIDE 20 MEQ in DEXTROSE 5% 1,000 ML IV SCH ×2 (05:30→22:01)
[2016-09-14 07:15] LABS: HEMATOCRIT 30.4 % (42.0-52.0); HEMOGLOBIN 9.9 g/dl (14.0-18.0); MEAN CORPUSCULAR HEMOGLOBIN 26.5 pg (29.0-33.0); MEAN CORPUSCULAR HGB CONC 32.4 g/dl (32.0-37.0); MEAN CORPUSCULAR VOLUME 81.8 fl (82.0-101.0); MEAN PLATELET VOLUME 12.3 fl (7.4-10.4); PLATELET COUNT 298 10^3/UL (140-440); RED BLOOD COUNT 3.72 10^6/ul (4.70-6.10); RED CELL DISTRIBUTION WIDTH 19.6 % (11.5-14.5); WHITE BLOOD COUNT 6.5 10^3/ul (4.8-10.8)
[2016-09-14 07:19] LABS: POTASSIUM 4.2 mmol/L (3.5-5.1)
[2016-09-14 07:22] LABS: CREATININE 0.73 mg/dl (0.61-1.24)
[2016-09-14 07:23] LABS: CALCIUM 8.4 mg/dl (8.4-10.2)
[2016-09-14 07:36] LABS: CONDITION 1; LH ANALYZER COMMENTS 1; SUSPECT 1; UNCORRECTED WBC 7.4 10^3/ul (4.8-10.8)
[2016-09-14] MEDS: COLLAGENASE 30 GM TUBE TOP SCH (09:00)
[2016-09-14 09:39] LABS: EOSINOPHILS # 0.1 10^3/ul (0.0-0.5); MONOCYTE # 0.8 10^3/ul (0.3-0.9); NEUTROPHIL # 3.5 10^3/ul (1.6-7.5)
[2016-09-14] MEDS: MUPIROCIN 2% 22 GM OINT TOP SCH ×2 (10:31→20:41)
[2016-09-14] MEDS: PANTOPRAZOLE IV 80 MG in SOD CHLORIDE 0.9% 100 ML IV SCH ×2 (10:32→22:00)
--- NOTE | 2016-09-14 12:25 | CONS ---
Date/Time of Note Date/Time of Note DATE: 09/14/16 TIME: 12:22 Assessment/Plan Assessment/Plan Additional Assessment/Plan Assessment recommendations; 1. Chronic respiratory failure due to anoxic encephalopathy ventilator dependent. 2. Pneumonia. 3. Patient awaiting G-tube replacement. However there is insertion site infection precluding immediate replacement. 4. History of colostomy. Continue current treatment for now. Patient will need to have a PICC line placed and started on TPN. Prognosis remains poor. Consultation Date/Type/Reason Admit Date/Time Aug 31, 2016 at 14:59 Initial Consult Date 09/01/16 Type of Consultation: Pulmonary Referring Provider: MARIO ROWE 24 HR Interval Summary Free Text/Dictation Patient condition remains unchanged. Remains completely unresponsive due to anoxic brain injury. Remains ventilator dependent. General examination; elderly male, on ventilator via tracheostomy currently in no distress. Exam/Review of Systems Vital Signs Vitals Vital Signs Date Time Temp Pulse Resp B/P Pulse Ox O2 Delivery O2 Flow Rate FiO2 09/14/16 11:31 98.5 95 18 117/70 91 09/14/16 11:10 40 Intake and Output 09/13/16 09/13/16 09/14/16 15:00 23:00 07:00 Intake Total 870 ml 960 ml Output Total 1900 ml 500 ml Balance -1030 ml 460 ml Exam H EENT examination; supple neck, no JVD. Tracheostomy in place. With clean insertion site. Patient is edentulous. Pupils are midsize bilaterally. Chest examination; diminished but clear breath sounds bilaterally. S1-S2 audible, no murmurs. Regular rhythm. Abdomen examination; soft, scaphoid. No organomegaly. Bowel sounds audible. There is a colostomy in place. And a collection bag applied to the prior J- tube site. Extremity examination; no peripheral edema. AGRONOMY MANAGER examination; patient remains unresponsive. Ventilator settings are assist control of 16, tidal volume 500, 40% FiO2, PEEP of 5. Results Result Diagram: 09/14/16 0555 09/14/16 0555 Results 24 hrs Laboratory Tests Test 09/14/16 05:55 Anion Gap 14 Basophils # Basophils % Blood Morphology Comment Blood Urea Nitrogen 6 L Calcium Level 8.4 Carbon Dioxide Level 27 Chloride Level 100 Creatinine 0.73 Differential Comment MANUAL DIFF Eosinophils # 0.1 Eosinophils % 2.0 Glucose Level 93 Hematocrit 30.4 L Hemoglobin 9.9 L Lymphocytes # 2.0 Lymphocytes % 31.0 Mean Corpuscular Hemoglobin 26.5 L Mean Corpuscular Hemoglobin Concent 32.4 Mean Corpuscular Volume 81.8 L Mean Platelet Volume 12.3 H Monocytes # 0.8 Monocytes % 13.0 H Neutrophils # 3.5 Neutrophils % 54.0 Nucleated Red Blood Cells # Nucleated Red Blood Cells % Platelet Count 298 # Potassium Level 4.2 Red Blood Count 3.72 L Red Cell Distribution Width 19.6 H Sodium Level 137 White Blood Count 6.5 Medications Medications Current Medications Pantoprazole/ Sodium Chloride (Protonix Iv/NS) 100 ml @ 10 mls/hr Q10H IV Last administered on 09/14/16 10:32; Admin Dose 10 MLS/HR; Start 09/01/16 at 21: 00 Mupirocin (Bactroban) 1 applic BID TOP Last administered on 09/14/16 10:31; Admin Dose 1 APPLIC; Start 09/02/16 at 12:00 Collagenase (Santyl) 1 applic DAILY TOP Last administered on 09/14/16 09:00; Admin Dose 1 APPLIC; Start 09/02/16 at 11:30 Tobramycin (Tobramycin Iv Per Pharmacy) TOBRAMYCIN PER PHARMACY NOTE XX ; Start 09/06/16 at 12:30 Al Hydrox/Mg Hydrox/ Simethicone 30 ml 30 ml Q4 PO Last administered on 05:30; Admin Dose 30 ML; Start 09/07/16 at 18:00 Potassium Chloride 20 meq/ Dextrose 1,010 ml @ 80 mls/hr [id number] IV Last administered on 09/14/16 05:30; Admin Dose 80 MLS/HR; Start 09/08/16 at 17:00 Tobramycin/Sodium Chloride (Tobramycin/NS) 107.5 ml @ 103.75 mls/ hr Q36H IVPB Last administered on 09/13/16 06:08; Admin Dose 103.75 MLS/HR; Start at 06:00 SHAAN BUTT Sep 14, 2016 12:25
[2016-09-14] MEDS ORDERED: *CONTINUE SAME TPN IV ONE (12:30)
--- NOTE | 2016-09-14 13:00 | CONS ---
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 the wound culture grew carbapenemase producing kleb, enterococci and pseudo - leakage of gastric contents from GT site, now has ostomy bag - infection of wound of RLE due to pseudomonas. 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 We recommend covering MRSA, and bacteria in the abdominal wound and RLE wound as much as possible - Continue IV tobramycin (09/06/2016-) for pseudomonas, planned through 09/20/2016 - May proceed with planned endoscopy for G tube placement with usual cleaning procedures - Start Clotrimazole and Bactroban to RLE rash - Above d/w Dr. Tang Problems: Consultation Date/Type/Reason Admit Date/Time Aug 31, 2016 at 14:59 Initial Consult Date 09/02/16 Type of Consultation: Infectious Disease Referring Provider: MARIO ROWE Exam/Review of Systems Vital Signs Vitals Vital Signs Date Time Temp Pulse Resp B/P Pulse Ox O2 Delivery O2 Flow Rate FiO2 09/14/16 12:24 98 09/14/16 11:31 98.5 18 117/70 91 09/14/16 11:10 40 Intake and Output 09/13/16 09/13/16 09/14/16 15:00 23:00 07:00 Intake Total 870 ml 960 ml Output Total 1900 ml 500 ml Balance -1030 ml 460 ml Exam Constitutional: frail, other (non-communicative; chronically debilitated, cachectic ) Head: atraumatic, normocephalic, other (temporal wasting noted) Neck: other (trach midline) Respiratory: Coarse breath sounds Cardiovascular: nl pulses, regular rate and rhythm Gastrointestinal: bowel sounds, other (NGT to sxn with greenish output; colostomy intact - stoma pink/no stool; gastric ulcer at old G tube site still open with greenish drainage into ostomy bag), soft Genitourinary - Male: other (vincent cath intact wtih hazy carla urine) Musculoskeletal: muscle weakness Extremities: normal pulses, other (bilateral foot drop noted), trace edema No clubbing, No cyanosis Neurological: unresponsive Skin: other (RLE dressing c/d/i); mild scattered papule rash to RLE medially Results Result Diagram: 09/14/16 0555 09/14/16 0555 Results 24 hrs Laboratory Tests Test 09/14/16 05:55 Anion Gap 14 Basophils # Basophils % Blood Morphology Comment Blood Urea Nitrogen 6 L Calcium Level 8.4 Carbon Dioxide Level 27 Chloride Level 100 Creatinine 0.73 Differential Comment MANUAL DIFF Eosinophils # 0.1 Eosinophils % 2.0 Glucose Level 93 Hematocrit 30.4 L Hemoglobin 9.9 L Lymphocytes # 2.0 Lymphocytes % 31.0 Mean Corpuscular Hemoglobin 26.5 L Mean Corpuscular Hemoglobin Concent 32.4 Mean Corpuscular Volume 81.8 L Mean Platelet Volume 12.3 H Monocytes # 0.8 Monocytes % 13.0 H Neutrophils # 3.5 Neutrophils % 54.0 Nucleated Red Blood Cells # Nucleated Red Blood Cells % Platelet Count 298 # Potassium Level 4.2 Red Blood Count 3.72 L Red Cell Distribution Width 19.6 H Sodium Level 137 White Blood Count 6.5 Medications Medications Current Medications Pantoprazole/ Sodium Chloride (Protonix Iv/NS) 100 ml @ 10 mls/hr Q10H IV Last administered on 09/14/16t 10:32; Admin Dose 10 MLS/HR; Start 09/01/16 at 21: 00 Mupirocin (Bactroban) 1 applic BID TOP Last administered on 09/14/16 10:31; Admin Dose 1 APPLIC; Start 09/02/16 at 12:00 Collagenase (Santyl) 1 applic DAILY TOP Last administered on 09/14/16 09:00; Admin Dose 1 APPLIC; Start 09/02/16 at 11:30 Tobramycin (Tobramycin Iv Per Pharmacy) TOBRAMYCIN PER PHARMACY NOTE XX ; Start 09/06/16 at 12:30 Al Hydrox/Mg Hydrox/ Simethicone 30 ml 30 ml Q4 PO Last administered on 05:30; Admin Dose 30 ML; Start 09/07/16 at 18:00 Potassium Chloride 20 meq/ Dextrose 1,010 ml @ 80 mls/hr [id number] IV Last administered on 09/14/16 05:30; Admin Dose 80 MLS/HR; Start 09/08/16 at 17:00 Tobramycin/Sodium Chloride (Tobramycin/NS) 107.5 ml @ 103.75 mls/ hr Q36H IVPB Last administered on 09/13/16 06:08; Admin Dose 103.75 MLS/HR; Start at 06:00 Miscellaneous Information (*Order Clarification Bulletin) MEDICATION REQUIRES CLARIFICATI... Q8H XX ; Start 09/14/16 at 13:00 KO LOVING NP Sep 14, 2016 13:00
--- NOTE | 2016-09-14 13:45 | CONS ---
Date/Time of Note Date/Time of Note DATE: 09/14/16 TIME: 13:43 Assessment/Plan Assessment/Plan Additional Assessment/Plan Intermittent atrial tachycardia Frequent PACs and PVCs Preserved ejection fraction Hematemesis Respiratory failure Encephalopathy -Heart rate trend appears stable. Occasional brief episodes of tachycardia. No need for AV carly blocking agents at the current time. Maintain potassium above 4.0 magnesium above 2.0. Consultation Date/Type/Reason Admit Date/Time Aug 31, 2016 at 14:59 Initial Consult Date 09/02/16 Type of Consultation: cv Referring Provider: MARIO ROWE 24 HR Interval Summary Free Text/Dictation Patient seen and examined Exam/Review of Systems Vital Signs Vitals Vital Signs Date Time Temp Pulse Resp B/P Pulse Ox O2 Delivery O2 Flow Rate FiO2 09/14/16 13:37 86 16 99 40 09/14/16 11:31 98.5 117/70 Intake and Output 09/13/16 09/13/16 09/14/16 15:00 23:00 07:00 Intake Total 870 ml 960 ml Output Total 1900 ml 500 ml Balance -1030 ml 460 ml Exam No response to verbal stimuli, no apparent distress Head: normocephalic Neck: other (Tracheostomy) Respiratory: other (Coarse breath sounds bilaterally, no wheezing) Cardiovascular: other (S1-S2 heard), regular rate and rhythm Gastrointestinal: bowel sounds, non-tender, soft Extremities: other (No edema) Results Result Diagram: 09/14/16 0555 09/14/16 0555 Results 24 hrs Laboratory Tests Test 09/14/16 05:55 Anion Gap 14 Basophils # Basophils % Blood Morphology Comment Blood Urea Nitrogen 6 L Calcium Level 8.4 Carbon Dioxide Level 27 Chloride Level 100 Creatinine 0.73 Differential Comment MANUAL DIFF Eosinophils # 0.1 Eosinophils % 2.0 Glucose Level 93 Hematocrit 30.4 L Hemoglobin 9.9 L Lymphocytes # 2.0 Lymphocytes % 31.0 Mean Corpuscular Hemoglobin 26.5 L Mean Corpuscular Hemoglobin Concent 32.4 Mean Corpuscular Volume 81.8 L Mean Platelet Volume 12.3 H Monocytes # 0.8 Monocytes % 13.0 H Neutrophils # 3.5 Neutrophils % 54.0 Nucleated Red Blood Cells # Nucleated Red Blood Cells % Platelet Count 298 # Potassium Level 4.2 Red Blood Count 3.72 L Red Cell Distribution Width 19.6 H Sodium Level 137 White Blood Count 6.5 Medications Medications Current Medications Pantoprazole/ Sodium Chloride (Protonix Iv/NS) 100 ml @ 10 mls/hr Q10H IV Last administered on 09/14/16 10:32; Admin Dose 10 MLS/HR; Start 09/01/16 at 21: 00 Collagenase (Santyl) 1 applic DAILY TOP Last administered on 09/14/16 09:00; Admin Dose 1 APPLIC; Start 09/02/16 at 11:30 Tobramycin (Tobramycin Iv Per Pharmacy) TOBRAMYCIN PER PHARMACY NOTE XX ; Start 09/06/16 at 12:30 Al Hydrox/Mg Hydrox/ Simethicone 30 ml 30 ml Q4 PO Last administered on 05:30; Admin Dose 30 ML; Start 09/07/16 at 18:00 Potassium Chloride 20 meq/ Dextrose 1,010 ml @ 80 mls/hr [id number] IV Last administered on 09/14/16 05:30; Admin Dose 80 MLS/HR; Start 09/08/16 at 17:00 Tobramycin/Sodium Chloride (Tobramycin/NS) 107.5 ml @ 103.75 mls/ hr Q36H IVPB Last administered on 09/13/16 06:08; Admin Dose 103.75 MLS/HR; Start at 06:00 Miscellaneous Information (*Order Clarification Bulletin) MEDICATION REQUIRES CLARIFICATI... Q8H XX ; Start 09/14/16 at 13:00 Maynor Broderick DO Sep 14, 2016 13:45
--- NOTE | 2016-09-14 17:03 | PN ---
Date/Time of Note Date/Time of Note DATE: 09/14/16 TIME: 17:02 Assessment/Plan VTE Prophylaxis VTE Prophylaxis Intervention: SCD's Lines/Catheters IV Catheter Type (from [facility]): Saline Lock Urinary Cath still in place: Yes Reason Cath still needed: urinary retention Assessment/Plan Chief Complaint/Hosp Course ASSESSMENT AND PLAN: - Upper gastrointestinal bleeding secondary to gastrostomy site ulcer disease. Continue Protonix. Dr. Pryor is following the patient in gastroenterology consultation. Continue IV fluids. - Anemia 2 to GI bleed, no indication for blood transfusion, monitor H&H. - Dehydration secondary to vomiting, resolved. - S/p sepsis with Staph bacteremia [address] Godfrey is following in ID consultation. Continue abx per ID. 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 - Ventilator-dependent respiratory failure with tracheostomy. Dr. Morirson is following from pulmonology standpoint. Continue bronchodilators and pulmonary toilet. - Dysphagia, pending J-tube placement. - Chronic obstructive pulmonary disease. - Chronic Chaudhari catheter. - Colostomy - Hypertension. - Bedbound status. - Acute kidney injury, resolved. - MRSA UTI , continue Vanco. - MRSA of nares. Continue Bactroban. - Hypernatremia, continue D5W with potassium supplement, continue to monitor electrolytes. - Intermittent atrial tachycardia. Dr. Broderick is is following in cardiology consultation, continue telemetry monitoring. Monitor electrolytes. Continue sequential compression device for deep venous thrombosis prophylaxis and Protonix for peptic ulcer disease prophylaxis. Further recommendations based on clinical course. Plan of care discussed with Dr. Meeks. Problems: Subjective 24 Hr Interval Summary Free Text/Dictation NG tube to low intermittent suction draining greenish gastric secretion, no fever nausea vomiting. Exam/Review of Systems Vital Signs Vitals Vital Signs Date Time Temp Pulse Resp B/P Pulse Ox O2 Delivery O2 Flow Rate FiO2 09/14/16 15:24 98.5 78 18 116/71 90 09/14/16 13:37 40 Intake and Output 09/13/16 09/13/16 09/14/16 14:59 22:59 06:59 Intake Total 870 ml 960 ml Output Total 1900 ml 500 ml Balance -1030 ml 460 ml Exam GENERAL: Well-developed, cachectic gentleman currently obtunded on ventilator support via tracheostomy. HEENT: Pupils equal, round, reactive to light and accommodation. NECK: Supple, no cervical lymphadenopathy, no thyromegaly. Tracheostomy the base of the neck with small amount of secretions. LUNGS: Rhonchi bilaterally, slightly diminished at the bases. CARDIOVASCULAR: Normal S1, S2. No murmurs, gallops, clicks, rubs noted. ABDOMEN: Flat, soft, nondistended, nontender. Bowel sounds hypoactive. Patient has left lower quadrant colostomy with pink, moist stoma. GENITOURINARY: The patient also has a Chaudhari catheter. EXTREMITIES: No edema, clubbing, cyanosis. Pulses equal bilaterally 2+. Lower extremities contracted. SKIN: There is no rash, petechiae noted. The patient has a sacral decubitus ulcer stage II. See nursing notes for further description. NEUROLOGIC: Patient does not follow any commands. Results Result Diagram: 09/14/16 0555 09/14/16 0555 Results 24 hrs Laboratory Tests Test 09/14/16 05:55 Anion Gap 14 Basophils # Basophils % Blood Morphology Comment Blood Urea Nitrogen 6 L Calcium Level 8.4 Carbon Dioxide Level 27 Chloride Level 100 Creatinine 0.73 Differential Comment MANUAL DIFF Eosinophils # 0.1 Eosinophils % 2.0 Glucose Level 93 Hematocrit 30.4 L Hemoglobin 9.9 L Lymphocytes # 2.0 Lymphocytes % 31.0 Mean Corpuscular Hemoglobin 26.5 L Mean Corpuscular Hemoglobin Concent 32.4 Mean Corpuscular Volume 81.8 L Mean Platelet Volume 12.3 H Monocytes # 0.8 Monocytes % 13.0 H Neutrophils # 3.5 Neutrophils % 54.0 Nucleated Red Blood Cells # Nucleated Red Blood Cells % Platelet Count 298 # Potassium Level 4.2 Red Blood Count 3.72 L Red Cell Distribution Width 19.6 H Sodium Level 137 White Blood Count 6.5 Medications Medications Current Medications Pantoprazole/ Sodium Chloride (Protonix Iv/NS) 100 ml @ 10 mls/hr Q10H IV Last administered on 09/14/16 10:32; Admin Dose 10 MLS/HR; Start 09/01/16 at 21: 00 Collagenase (Santyl) 1 applic DAILY TOP Last administered on 09/14/16 09:00; Admin Dose 1 APPLIC; Start 09/02/16 at 11:30 Tobramycin TOBRAMYCIN PER PHARMACY NOTE XX ; Start 2/6/17 at 12:30 Potassium Chloride 20 meq/ Dextrose 1,010 ml @ 80 mls/hr [id number] IV Last administered on 09/14/16 05:30; Admin Dose 80 MLS/HR; Start 09/08/16 at 17:00 Tobramycin/Sodium Chloride (Tobramycin/NS) 107.5 ml @ 103.75 mls/ hr Q36H IVPB Last administered on 09/13/16 06:08; Admin Dose 103.75 MLS/HR; Start at 06:00 Miscellaneous Information (*Order Clarification Bulletin) MEDICATION REQUIRES CLARIFICATI... Q8H XX ; Start 09/14/16 at 13:00 Clotrimazole (Lotrimin Cr) 1 applic BID TOP ; Start 09/14/16 at 14:30 Mupirocin (Bactroban) 1 applic BID TOP ; Start 09/14/16 at 21:00 AMY MORAN Sep 14, 2016 17:03
[2016-09-14] MEDS: TOBRAMYCIN 300 MG in SOD CHLORIDE 0.9% 100 ML IVPB SCH (18:54)
[2016-09-14] MEDS: CLOTRIMAZOLE 1% 30 GM CR TOP SCH ×2 (19:02→20:40)
--- NOTE | 2016-09-14 19:37 | PN ---
DATE: The patient has had a G-tube in the past which was removed because of ulcer at the site of the gastr ostomy, causing bleeding. Now the gastrostomy site seems to be healing well. There is some biliary drainage, and he has a nasogastric tube for suction, and it appears that this is the right time to place a percutaneous endoscopic gastrostomy tube. If possible, we could place a percutaneous transg astric jejunostomy tube placement to prevent leakage from the gastrostomy site, and it will obviousl y give access for long-term nutritional support. This consent has been obtained from the daughter, and the procedure will be performed tomorrow. Dictated By: KATELYN FERRARI/MACK Conf#: [id number] DID#: [id number]
[2016-09-14] MEDS: [UNRECOGNIZED DRUG - REMARK] XX SCH (21:00)
[2016-09-14] MEDS ORDERED: TPN 1,000 ML IV SCH (21:00)
[2016-09-15] VITALS (25 sets, daily range): BP systolic 129–147; BP diastolic 76–91; PULSE 61–88; RESP 16–20
[2016-09-15] MEDS: [UNRECOGNIZED DRUG - REMARK] XX SCH (05:00)
[2016-09-15] MEDS: PANTOPRAZOLE IV 80 MG in SOD CHLORIDE 0.9% 100 ML IV SCH ×2 (05:00→12:13)
[2016-09-15 07:11] LABS: POTASSIUM 4.4 mmol/L (3.5-5.1)
[2016-09-15 07:13] LABS: CREATININE 0.79 mg/dl (0.61-1.24)
[2016-09-15 07:14] LABS: CALCIUM 8.5 mg/dl (8.4-10.2)
[2016-09-15] MEDS: COLLAGENASE 30 GM TUBE TOP SCH (09:00)
[2016-09-15] MEDS: CLOTRIMAZOLE 1% 30 GM CR TOP SCH ×2 (10:18→22:25)
[2016-09-15] MEDS: MUPIROCIN 2% 22 GM OINT TOP SCH ×2 (10:18→22:25)
[2016-09-15] MEDS ORDERED: PROPOFOL 20 ML ONE (11:29)
[2016-09-15] MEDS ORDERED: MIDAZOLAM 1 MG/ML 2 ML INJ ONE (11:29)
[2016-09-15] MEDS ORDERED: FENTAnyl 50 MCG/ML VIAL ONE (11:29)
[2016-09-15] MEDS ORDERED: PHENYLephrine (100 MCG/ML) 5ML SYG ONE (11:30)
--- NOTE | 2016-09-15 12:18 | CONS ---
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 the wound culture grew carbapenemase producing kleb, enterococci and pseudo - leakage of gastric contents from GT site, now has ostomy bag - infection of wound of RLE due to pseudomonas. 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 We recommend covering MRSA, and bacteria in the abdominal wound and RLE wound as much as possible - Continue IV tobramycin (09/06/2016-) for pseudomonas, planned through 09/20/2016 - May proceed with planned endoscopy for G tube placement with usual cleaning procedures - cont. Clotrimazole and Bactroban to RLE rash Consultation Date/Type/Reason Admit Date/Time Aug 31, 2016 at 14:59 Initial Consult Date 09/02/16 Type of Consultation: Infectious Disease Referring Provider: MARIO ROWE Exam/Review of Systems Vital Signs Vitals Vital Signs Date Time Temp Pulse Resp B/P Pulse Ox O2 Delivery O2 Flow Rate FiO2 09/15/16 11:00 80 16 98 09/15/16 10:48 130/86 09/15/16 08:20 40 09/15/16 07:34 98.3 Intake and Output 09/14/16 09/14/1609/15/17 15:00 23:00 07:00 Intake Total 0 ml 70 ml Output Total 450 ml 620 ml Balance -450 ml -550 ml Exam getting endoscopy Results Result Diagram: 09/14/16 0555 09/15/16 0605 Results 24 hrs Laboratory Tests Test 09/15/16 06:05 Anion Gap 11 Blood Urea Nitrogen 7 Calcium Level 8.5 Carbon Dioxide Level 30 Chloride Level 100 Creatinine 0.79 Glucose Level 95 Magnesium Level 2.0 Potassium Level 4.4 Sodium Level 137 Medications Medications Current Medications Pantoprazole/ Sodium Chloride (Protonix Iv/NS) 100 ml @ 10 mls/hr Q10H IV Last administered on 09/15/16 12:13; Admin Dose 10 MLS/HR; Start 09/01/16 at 21: 00 Collagenase (Santyl) 1 applic DAILY TOP Last administered on 09/15/16 09:00; Admin Dose 1 APPLIC; Start 09/02/16 at 11:30 Tobramycin TOBRAMYCIN PER PHARMACY NOTE XX ; Start 09/06/16 at 12:30 Potassium Chloride 20 meq/ Dextrose 1,010 ml @ 80 mls/hr [id number] IV Last administered on 09/14/16 22:01; Admin Dose 80 MLS/HR; Start 09/08/16 at 17:00 Tobramycin/Sodium Chloride (Tobramycin/NS) 107.5 ml @ 103.75 mls/ hr Q36H IVPB Last administered on 09/14/16 18:54; Admin Dose 103.75 MLS/HR; Start at 06:00 Miscellaneous Information (*Order Clarification Bulletin) MEDICATION REQUIRES CLARIFICATI... Q8H XX ; Start 09/14/16 at 13:00 Clotrimazole (Lotrimin Cr) 1 applic BID TOP Last administered on 09/15/16 10: 18; Admin Dose 1 APPLIC; Start 09/14/16 at 14:30 Mupirocin 1 applic 1 applic BID TOP Last administered on 09/15/16 10:18; Admin Dose 1 APPLIC; Start 09/14/16 at 21:00 Cefazolin Sodium/ Dextrose (Ancef 2 Gm/50 ml (Pmx)) 50 ml @ 100 mls/hr ONCE ONCE IVPB ; Start 09/15/16 at 13:00; Stop 09/15/16 at 13:29 MARIBELL SUN MD Sep 15, 2016 12:18
[2016-09-15] MEDS ORDERED: CEFAZOLIN 2 GM/50 ML (PMX) 50 ML IVPB ONE (13:00)
--- NOTE | 2016-09-15 13:01 | CONS ---
Date/Time of Note Date/Time of Note DATE: 09/15/16 TIME: 12:59 Assessment/Plan Assessment/Plan Additional Assessment/Plan Ventilator settings are assist control of 16, tidal volume 500, PEEP of 5, 30% FiO2. Assessment and recommendations; 1. Patient admitted with pneumonia. Currently on tobramycin and cefazolin. 2. History of colostomy. 3. Status post placement of G-tube. 4. History of severe anoxic enthesopathy. Patient remains ventilator dependent. Continue current treatment. Prognosis is poor. Consultation Date/Type/Reason Admit Date/Time Aug 31, 2016 at 14:59 Initial Consult Date 09/01/16 Type of Consultation: Pulmonary Referring Provider: MARIO ROWE 24 HR Interval Summary Free Text/Dictation Patient condition remains unchanged. Remains unresponsive. On ventilator via tracheostomy. Patient just underwent G-tube replacement by the gastroneurologist. Next General examination; elderly male, on ventilator, unresponsive. Currently in no distress. Exam/Review of Systems Vital Signs Vitals Vital Signs Date Time Temp Pulse Resp B/P Pulse Ox O2 Delivery O2 Flow Rate FiO2 09/15/16 12:35 61 146/85 100 09/15/16 11:00 16 09/15/16 08:20 40 09/15/16 07:34 98.3 Intake and Output 09/14/16 09/14/16 09/15/16 15:00 23:00 07:00 Intake Total 0 ml 70 ml Output Total 450 ml 620 ml Balance -450 ml -550 ml Exam H EENT examination; supple neck, no JVD. No lymphadenopathy. Patient is edentulous. Pupils are small bilaterally. Tracheostomy in place. Insertion site is clean. Chest examination; diminished but clear breath sounds. S1-S2 audible, no murmurs. Regular rhythm. Abdomen examination; G-tube in place. Colostomy in place. Bowel sounds audible. Extremity examination; no peripheral edema. 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 Results Result Diagram: 09/14/16 0555 09/15/16 0605 Results 24 hrs Laboratory Tests Test 09/15/16 06:05 Anion Gap 11 Blood Urea Nitrogen 7 Calcium Level 8.5 Carbon Dioxide Level 30 Chloride Level 100 Creatinine 0.79 Glucose Level 95 Magnesium Level 2.0 Potassium Level 4.4 Sodium Level 137 Medications Medications Current Medications Pantoprazole/ Sodium Chloride (Protonix Iv/NS) 100 ml @ 10 mls/hr Q10H IV Last administered on 09/15/16 12:13; Admin Dose 10 MLS/HR; Start 09/01/16 at 21: 00 Collagenase (Santyl) 1 applic DAILY TOP Last administered on 09/15/16 09:00; Admin Dose 1 APPLIC; Start 09/02/16 at 11:30 Tobramycin TOBRAMYCIN PER PHARMACY NOTE XX ; Start 09/06/16 at 12:30 Potassium Chloride 20 meq/ Dextrose 1,010 ml @ 80 mls/hr [id number] IV Last administered on 09/14/16 22:01; Admin Dose 80 MLS/HR; Start 09/08/16 at 17:00 Tobramycin/Sodium Chloride (Tobramycin/NS) 107.5 ml @ 103.75 mls/ hr Q36H IVPB Last administered on 09/14/16 18:54; Admin Dose 103.75 MLS/HR; Start at 06:00 Miscellaneous Information (*Order Clarification Bulletin) MEDICATION REQUIRES CLARIFICATI... Q8H XX ; Start 09/14/16 at 13:00 Clotrimazole (Lotrimin Cr) 1 applic BID TOP Last administered on 09/15/16 10: 18; Admin Dose 1 APPLIC; Start 09/14/16 at 14:30 Mupirocin 1 applic 1 applic BID TOP Last administered on 09/15/16 10:18; Admin Dose 1 APPLIC; Start 09/14/16 at 21:00 Cefazolin Sodium/ Dextrose (Ancef 2 Gm/50 ml (Pmx)) 50 ml @ 100 mls/hr ONCE ONCE IVPB ; Start 09/15/16 at 13:00; Stop 09/15/16 at 13:29 SHAAN BUTT Sep 15, 2016 13:01
--- NOTE | 2016-09-15 13:04 | PN ---
Date/Time of Note Date/Time of Note DATE: 09/15/16 TIME: 12:55 Assessment/Plan VTE Prophylaxis VTE Prophylaxis Intervention: SCD's Lines/Catheters IV Catheter Type (from Nrs): Peripheral IV Central line still needed: Yes Urinary Cath still in place: Yes Reason Cath still needed: urinary retention Assessment/Plan Chief Complaint/Hosp Course ASSESSMENT AND PLAN: - Dysphagia, s/p J-tube placement. Will start J-tube feeding tomorrow. 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 Continue Protonix. Dr. Pryor is following the patient in gastroenterology consultation. Continue IV fluids. - Anemia 2 to GI bleed, no indication for blood transfusion, monitor H&H. - Dehydration secondary to vomiting, resolved. - S/p sepsis with Staph bacteremia [address] Godfrey is following in ID consultation. Continue abx per ID. 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 - Ventilator-dependent respiratory failure with tracheostomy. Dr. Morrison is following from pulmonology standpoint. Continue bronchodilators and pulmonary toilet. - Chronic obstructive pulmonary disease. - Chronic Chaudhari catheter. - Colostomy - Hypertension. - Bedbound status. - Acute kidney injury, resolved. - MRSA UTI , s/p treatment. - MRSA of nares. Continue Bactroban. - Intermittent atrial tachycardia. Dr. Broderick is is following in cardiology consultation, continue telemetry monitoring. Monitor electrolytes. Continue sequential compression device for deep venous thrombosis prophylaxis and Protonix for peptic ulcer disease prophylaxis. Further recommendations based on clinical course. Plan of care discussed with Dr. Meeks. Problems: Subjective 24 Hr Interval Summary Free Text/Dictation Patient is status post J-tube placement today, patient tolerated procedure well. Exam/Review of Systems Vital Signs Vitals Vital Signs Date Time Temp Pulse Resp B/P Pulse Ox O2 Delivery O2 Flow Rate FiO2 09/15/16 12:35 61 146/85 100 09/15/16 11:00 16 09/15/16 08:20 40 09/15/16 07:34 98.3 Intake and Output 09/14/16 09/14/16 09/15/16 15:00 23:00 07:00 Intake Total 0 ml 70 ml Output Total 450 ml 620 ml Balance -450 ml -550 ml Exam GENERAL: Well-developed, cachectic gentleman currently obtunded on ventilator support via tracheostomy. HEENT: Pupils equal, round, reactive to light and accommodation. NECK: Supple, no cervical lymphadenopathy, no thyromegaly. Tracheostomy the base of the neck with small amount of secretions. LUNGS: Rhonchi bilaterally, slightly diminished at the bases. CARDIOVASCULAR: Normal S1, S2. No murmurs, gallops, clicks, rubs noted. ABDOMEN: Flat, soft, nondistended, nontender. Bowel sounds hypoactive. Patient has left lower quadrant colostomy with pink, moist stoma. GENITOURINARY: The patient also has a Chaudhari catheter. EXTREMITIES: No edema, clubbing, cyanosis. Pulses equal bilaterally 2+. Lower extremities contracted. SKIN: There is no rash, petechiae noted. The patient has a sacral decubitus ulcer stage II. See nursing notes for further description. NEUROLOGIC: Patient does not follow any commands. Results Result Diagram: 09/14/16 0555 09/15/16 0605 Results 24 hrs Laboratory Tests Test 09/15/16 06:05 Anion Gap 11 Blood Urea Nitrogen 7 Calcium Level 8.5 Carbon Dioxide Level 30 Chloride Level 100 Creatinine 0.79 Glucose Level 95 Magnesium Level 2.0 Potassium Level 4.4 Sodium Level 137 Medications Medications Current Medications Pantoprazole/ Sodium Chloride (Protonix Iv/NS) 100 ml @ 10 mls/hr Q10H IV Last administered on 09/15/16 12:13; Admin Dose 10 MLS/HR; Start 09/01/16 at 21: 00 Collagenase (Santyl) 1 applic DAILY TOP Last administered on 09/15/16 09:00; Admin Dose 1 APPLIC; Start 09/02/16 at 11:30 Tobramycin TOBRAMYCIN PER PHARMACY NOTE XX ; Start 09/06/16 at 12:30 Potassium Chloride 20 meq/ Dextrose 1,010 ml @ 80 mls/hr [id number] IV Last administered on 09/14/16 22:01; Admin Dose 80 MLS/HR; Start 09/08/16 at 17:00 Tobramycin/Sodium Chloride (Tobramycin/NS) 107.5 ml @ 103.75 mls/ hr Q36H IVPB Last administered on 09/14/16 18:54; Admin Dose 103.75 MLS/HR; Start at 06:00 Miscellaneous Information (*Order Clarification Bulletin) MEDICATION REQUIRES CLARIFICATI... Q8H XX ; Start 09/14/16 at 13:00 Clotrimazole (Lotrimin Cr) 1 applic BID TOP Last administered on 09/15/16 10: 18; Admin Dose 1 APPLIC; Start 09/14/16 at 14:30 Mupirocin 1 applic 1 applic BID TOP Last administered on 09/15/16 10:18; Admin Dose 1 APPLIC; Start 09/14/16 at 21:00 Cefazolin Sodium/ Dextrose (Ancef 2 Gm/50 ml (Pmx)) 50 ml @ 100 mls/hr ONCE ONCE IVPB ; Start 09/15/16 at 13:00; Stop 09/15/16 at 13:29 AMY MORAN Sep 15, 2016 13:04
--- NOTE | 2016-09-15 13:09 | GILP ---
DATE OF PROCEDURE: NAME OF PROCEDURE: Esophagogastroduodenoscopy, percutaneous endoscopic gastrostomy tube placement. PREOPERATIVE DIAGNOSIS: Patient presenting with history of difficulty in swallowing. He had a G-tu be in place with a large gastric ulcer; now at this time, the ulcer seems to be healed. Procedure at this time is performed to create access for long-term nutritional support. POSTOPERATIVE DIAGNOSES: Patient presenting with history of difficulty in swallowing. He had a G-tu be in place with a large gastric ulcer; now at this time, the ulcer seems to be healed. Procedure at this time is performed to create access for long-term nutritional support. DESCRIPTION OF PROCEDURE: After informed written consent was obtained, the patient was asked to lie on the left lateral side. Intravenous anesthesia was given by anesthesiologist, ____. When t he patient became somnolent, the Olympus video upper endoscope was introduced into the oropharynx, t hen into the esophagus. Esophagus appeared normal. Stomach showed evidence of old gastrostomy site . The previously noted ulcers are almost completely healed, but there still seems to be opening at this time, which belongs to the gastrostomy site. At this time, the anterior abdominal wall was pre pared with Betadine and alcohol, 2 mL of 2% Xylocaine was infiltrated and by using the old gastrosto my site, a trocar was inserted through the gastrostomy site and trocar was found to be entering into the gastric cavity. After removing the stylet, the guidewire was inserted through the trocar into the stomach. The guidewire was grabbed with a polypectomy snare and then it was brought out through the mouth along with the endoscope. To this end of the guidewire, a #20 Microvasive G-tube was tie d in a loop fashion and then it was brought out through the abdominal wall incision. Retention bump er was placed over the G-tube close to the skin. Tapered end of the gastrostomy tube was cut, the a dapter was placed and the procedure was terminated. PLAN: Recommend starting G-tube feeding in a.m. Dictated By: KATELYN FERRARI/MACK Conf#: [id number] DID#: [id number] CC: MARLA AKBAR MD; KATELYN SILVERMAN MD;*End*
[2016-09-15] MEDS: POTASSIUM CHLORIDE 20 MEQ in DEXTROSE 5% 1,000 ML IV SCH ×2 (13:14→18:41)
--- NOTE | 2016-09-15 14:15 | CONS ---
Date/Time of Note Date/Time of Note DATE: 09/15/16 TIME: 14:14 Assessment/Plan Assessment/Plan Additional Assessment/Plan Intermittent atrial tachycardia Frequent PACs and PVCs Preserved ejection fraction Hematemesis Respiratory failure Encephalopathy -Heart rate trend appears stable. Occasional brief episodes of tachycardia. No need for AV carly blocking agents at the current time. Maintain potassium above 4.0 magnesium above 2.0. Will order dose of magnesium today. Plan for PEG placement. Consultation Date/Type/Reason Admit Date/Time Aug 31, 2016 at 14:59 Initial Consult Date 09/02/16 Type of Consultation: cv Referring Provider: MARIO ROWE 24 HR Interval Summary Free Text/Dictation Patient seen and examined Exam/Review of Systems Vital Signs Vitals Vital Signs Date Time Temp Pulse Resp B/P Pulse Ox O2 Delivery O2 Flow Rate FiO2 09/15/16 12:35 61 146/85 100 09/15/16 11:00 16 09/15/16 08:20 40 09/15/16 07:34 98.3 Intake and Output 09/14/16 09/14/16 09/15/16 15:00 23:00 07:00 Intake Total 0 ml 70 ml Output Total 450 ml 620 ml Balance -450 ml -550 ml Exam No apparent distress, no response to verbal stimuli Head: normocephalic Neck: other (Tracheostomy) Respiratory: other (Coarse breath sounds bilaterally, no wheezing) Cardiovascular: other (S1-S2 heard), regular rate and rhythm Gastrointestinal: bowel sounds, non-tender, soft Extremities: other (No edema) Results Result Diagram: 09/14/16 0555 09/15/16 0605 Results 24 hrs Laboratory Tests Test 09/15/16 06:05 Anion Gap 11 Blood Urea Nitrogen 7 Calcium Level 8.5 Carbon Dioxide Level 30 Chloride Level 100 Creatinine 0.79 Glucose Level 95 Magnesium Level 2.0 Potassium Level 4.4 Sodium Level 137 Medications Medications Current Medications Pantoprazole/ Sodium Chloride (Protonix Iv/NS) 100 ml @ 10 mls/hr Q10H IV Last administered on 09/15/16 12:13; Admin Dose 10 MLS/HR; Start 09/01/16 at 21: 00 Collagenase (Santyl) 1 applic DAILY TOP Last administered on 09/15/16 09:00; Admin Dose 1 APPLIC; Start 09/02/16 at 11:30 Tobramycin TOBRAMYCIN PER PHARMACY NOTE XX ; Start 09/06/16 at 12:30 Potassium Chloride 20 meq/ Dextrose 1,010 ml @ 80 mls/hr [id number] IV Last administered on 09/14/16 22:01; Admin Dose 80 MLS/HR; Start 09/08/16 at 17:00 Tobramycin/Sodium Chloride (Tobramycin/NS) 107.5 ml @ 103.75 mls/ hr Q36H IVPB Last administered on 09/14/16 18:54; Admin Dose 103.75 MLS/HR; Start at 06:00 Miscellaneous Information (*Order Clarification Bulletin) MEDICATION REQUIRES CLARIFICATI... Q8H XX ; Start 09/14/16 at 13:00 Clotrimazole (Lotrimin Cr) 1 applic BID TOP Last administered on 09/15/16 10: 18; Admin Dose 1 APPLIC; Start 09/14/16 at 14:30 Mupirocin (Bactroban) 1 applic BID TOP Last administered on 09/15/16 10:18; Admin Dose 1 APPLIC; Start 09/14/16 at 21:00 Maynor Broderick DO Sep 15, 2016 14:15
[2016-09-15] MEDS ORDERED: MAGNESIUM SULFATE 1 GM/D5W 100 ML IVPB ONE (14:30)
[2016-09-15] MEDS ORDERED: TOBRAMYCIN 300 MG in SOD CHLORIDE 0.9% 100 ML IVPB SCH (17:00)
[2016-09-16] VITALS (24 sets, daily range): BP systolic 131–161; BP diastolic 66–91; PULSE 76–93; RESP 16–28
[2016-09-16] MEDS: PANTOPRAZOLE IV 80 MG in SOD CHLORIDE 0.9% 100 ML IV SCH ×2 (02:07→13:46)
[2016-09-16] MEDS: POTASSIUM CHLORIDE 20 MEQ in DEXTROSE 5% 1,000 ML IV SCH (06:55)
[2016-09-16 07:44] LABS: HEMOGLOBIN 9.9 g/dl (14.0-18.0); MEAN CORPUSCULAR HEMOGLOBIN 26.2 pg (29.0-33.0); MEAN CORPUSCULAR HGB CONC 32.1 g/dl (32.0-37.0); MEAN CORPUSCULAR VOLUME 81.6 fl (82.0-101.0); MEAN PLATELET VOLUME 11.7 fl (7.4-10.4); PLATELET COUNT 391 10^3/UL (140-440); RED CELL DISTRIBUTION WIDTH 18.3 % (11.5-14.5); UNCORRECTED WBC 7.9 10^3/ul (4.8-10.8); WHITE BLOOD COUNT 7.9 10^3/ul (4.8-10.8)
[2016-09-16 07:46] LABS: CONDITION 1; LH ANALYZER COMMENTS 1; SUSPECT 1
[2016-09-16 07:58] LABS: POTASSIUM 4.2 mmol/L (3.5-5.1)
[2016-09-16 08:01] LABS: CALCIUM 8.2 mg/dl (8.4-10.2); CREATININE 0.76 mg/dl (0.61-1.24)
[2016-09-16 09:51] LABS: LYMPHOCYTES # 2.9 10^3/ul (0.8-2.9); MONOCYTE # 0.7 10^3/ul (0.3-0.9); NEUTROPHIL # 4.1 10^3/ul (1.6-7.5)
[2016-09-16] MEDS: CLOTRIMAZOLE 1% 30 GM CR TOP SCH ×2 (09:51→22:05)
[2016-09-16] MEDS: MUPIROCIN 2% 22 GM OINT TOP SCH ×2 (09:51→22:06)
[2016-09-16] MEDS: COLLAGENASE 30 GM TUBE TOP SCH (09:52)
--- NOTE | 2016-09-16 10:21 | PN ---
Date/Time of Note Date/Time of Note DATE: 09/16/16 TIME: 10:19 Assessment/Plan VTE Prophylaxis VTE Prophylaxis Intervention: other Lines/Catheters IV Catheter Type (from Nrs): Saline Lock Urinary Cath still in place: Yes Reason Cath still needed: urinary retention Assessment/Plan Assessment/Plan - Dysphagia, s/p J-tube placement. - per GI - on J-tube feeding-tolerating - Upper gastrointestinal bleeding secondary to gastrostomy site ulcer disease. - Continue Protonix. - per Dr. Pryor in gastroenterology consultation. Continue IV fluids. - Anemia 2 to GI bleed, no indication for blood transfusion, monitor H&H. - H/H- 9.9/31.0 - per GI - Dehydration secondary to vomiting, resolved. - S/p sepsis with Staph bacteremia 2 UTI and HCAP. - per Dr Godfrey in ID consultation. Continue abx per ID. 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 - Ventilator-dependent respiratory failure with tracheostomy. - per Dr. Morrison is following from pulmonology standpoint. - Continue bronchodilators and pulmonary toilet. - Chronic obstructive pulmonary disease. - Chronic Chaudhari catheter. - Colostomy - Hypertension. - Bedbound status. - Acute kidney injury, resolved. - MRSA UTI , s/p treatment. - MRSA of nares. Continue Bactroban. - Intermittent atrial tachycardia. - per Dr. Broderick in cardiology consultation, - continue telemetry monitoring. Monitor electrolytes. Continue sequential compression device for deep venous thrombosis prophylaxis and Protonix for peptic ulcer disease prophylaxis. Further recommendations based on clinical course. Plan of care discussed with Dr. Meeks. Subjective 24 Hr Interval Summary Free Text/Dictation NAD, seems comfortable. no gi bleeding, afebrile, remains intubated. dw satff Constitutional: requiring IVF, requiring O2 Exam/Review of Systems Vital Signs Vitals Vital Signs Date Time Temp Pulse Resp B/P Pulse Ox O2 Delivery O2 Flow Rate FiO2 09/16/16 09:00 91 09/16/16 08:07 98.4 18 136/78 100 09/16/16 07:05 40 Intake and Output 09/15/16 09/15/16 09/16/16 15:00 23:00 07:00 Intake Total 0 ml 110 ml Output Total 900 ml 800 ml Balance -900 ml -690 ml Exam Constitutional: non-verbal, other Head: other (sp subdural hematoma) Eyes: PERRL ENMT: nl external ears & nose Neck: non-tender Respiratory: diminished breath sounds, other Cardiovascular: edema, nl pulses Gastrointestinal: non-tender, other Musculoskeletal: muscle weakness Extremities: normal pulses Neurological: confused, lethargic Skin: other Lymph: nontender Results Result Diagram: 09/16/16 0612 09/16/16 0612 Results 24 hrs Laboratory Tests Test 09/16/16 06:12 Anion Gap 13 Band Neutrophils % 2.0 Blood Morphology Comment Blood Urea Nitrogen 8 Calcium Level 8.2 L Carbon Dioxide Level 26 Chloride Level 97 Creatinine 0.76 Glucose Level 114 Hematocrit 31.0 L Hemoglobin 9.9 L Lymphocytes # 2.9 Lymphocytes % 37.0 Mean Corpuscular Hemoglobin 26.2 L Mean Corpuscular Hemoglobin Concent 32.1 Mean Corpuscular Volume 81.6 L Mean Platelet Volume 11.7 H Monocytes # 0.7 Monocytes % 9.0 Neutrophils # 4.1 Neutrophils % 52.0 Nucleated Red Blood Cells # Platelet Count 391 # Potassium Level 4.2 Red Blood Count 3.80 L Red Cell Distribution Width 18.3 H Sodium Level 132 L White Blood Count 7.9 # Medications Medications Current Medications Pantoprazole/ Sodium Chloride (Protonix Iv/NS) 100 ml @ 10 mls/hr Q10H IV Last administered on 09/16/16 02:07; Admin Dose 10 MLS/HR; Start 09/01/16 at 21: 00 Collagenase (Santyl) 1 applic DAILY TOP Last administered on 09/16/16 09:52; Admin Dose 1 APPLIC; Start 09/02/16 at 11:30 Tobramycin TOBRAMYCIN PER PHARMACY NOTE XX ; Start 09/06/16 at 12:30 Potassium Chloride/Dextrose (KCl/D5W) 1,010 ml @ 80 mls/hr [id number] IV Last administered on 09/16/16 06:55; Admin Dose 80 MLS/HR; Start 09/08/16 at 17:00 Clotrimazole (Lotrimin Cr) 1 applic BID TOP Last administered on 09/16/16 09: 51; Admin Dose 1 APPLIC; Start 09/14/16 at 14:30 Mupirocin 1 applic 1 applic BID TOP Last administered on 2/16/17at 09:51; Admin Dose 1 APPLIC; Start 09/14/16 at 21:00 Tobramycin/Sodium Chloride (Tobramycin/NS) 107.5 ml @ 103.75 mls/ hr Q48H IVPB ; Start 09/16/16 at 18:00 MARIO ROWE Sep 16, 2016 10:21
--- NOTE | 2016-09-16 12:36 | CONS ---
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 the wound culture grew carbapenemase producing kleb, enterococci and pseudo - leakage of gastric contents from GT site, now has ostomy bag - resolved - dysphagia s/p EGD and new G tube placement 09/15/2016 - infection of wound of RLE due to pseudomonas. 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 We recommend covering MRSA, and bacteria in the abdominal wound and RLE wound as much as possible - Continue IV tobramycin (09/06/2016-) for pseudomonas, planned through 09/20/2016 - Continue Clotrimazole and Bactroban to BLE rash - Management d/w pt's RN - Above d/w Dr. Tang Problems: Consultation Date/Type/Reason Admit Date/Time Aug 31, 2016 at 14:59 Initial Consult Date 09/02/16 Type of Consultation: Infectious Disease Referring Provider: MARIO ROWE 24 HR Interval Summary Free Text/Dictation S/p EGD with PEG placement yesterday and initiated on GT feeds this AM; still on protonix gtt per [facility]. Pt remains afebrile and non-communicative. Exam/Review of Systems Vital Signs Vitals Vital Signs Date Time Temp Pulse Resp B/P Pulse Ox O2 Delivery O2 Flow Rate FiO2 09/16/16 11:51 98.0 88 19 131/79 100 09/16/16 09:20 40 Intake and Output 09/15/16 09/15/16 09/16/16 15:00 23:00 07:00 Intake Total 0 ml 110 ml Output Total 900 ml 800 ml Balance -900 ml -690 ml Exam Constitutional: frail, other (non-communicative; chronically debilitated, cachectic ) Head: atraumatic, normocephalic, other (temporal wasting noted) Neck: other (trach midline) Respiratory: Coarse breath sounds Cardiovascular: nl pulses, regular rate and rhythm Gastrointestinal: bowel sounds, other (colostomy intact - stoma pink/no stool; New G tube with Tube feedings intact with scant blood at GT insertion site), soft Genitourinary - Male: other (vincent cath intact with yellow urine with sediments ) Musculoskeletal: muscle weakness Extremities: normal pulses, other (bilateral foot drop noted), trace edema No clubbing, No cyanosis Neurological: unresponsive Skin: other (RLE dressing c/d/i); mild scattered papule rash to BLE medially, R >L Results Result Diagram: 09/16/1661109/16/1612 Results 24 hrs Laboratory Tests Test 09/16/16 06:12 Anion Gap 13 Band Neutrophils % 2.0 Blood Morphology Comment Blood Urea Nitrogen 8 Calcium Level 8.2 L Carbon Dioxide Level 26 Chloride Level 97 Creatinine 0.76 Glucose Level 114 Hematocrit 31.0 L Hemoglobin 9.9 L Lymphocytes # 2.9 Lymphocytes % 37.0 Mean Corpuscular Hemoglobin 26.2 L Mean Corpuscular Hemoglobin Concent 32.1 Mean Corpuscular Volume 81.6 L Mean Platelet Volume 11.7 H Monocytes # 0.7 Monocytes % 9.0 Neutrophils # 4.1 Neutrophils % 52.0 Nucleated Red Blood Cells # Platelet Count 391 # Potassium Level 4.2 Red Blood Count 3.80 L Red Cell Distribution Width 18.3 H Sodium Level 132 L White Blood Count 7.9 # Medications Medications Current Medications Pantoprazole/ Sodium Chloride (Protonix Iv/NS) 100 ml @ 10 mls/hr Q10H IV Last administered on 09/16/16t 02:07; Admin Dose 10 MLS/HR; Start 09/01/16 at 21: 00 Collagenase (Santyl) 1 applic DAILY TOP Last administered on 09/16/16 09:52; Admin Dose 1 APPLIC; Start 09/02/16 at 11:30 Tobramycin TOBRAMYCIN PER PHARMACY NOTE XX ; Start 09/06/16 at 12:30 Potassium Chloride/Dextrose (KCl/D5W) 1,010 ml @ 80 mls/hr [id number] IV Last administered on 09/16/16 06:55; Admin Dose 80 MLS/HR; Start 09/08/16 at 17:00 Clotrimazole (Lotrimin Cr) 1 applic BID TOP Last administered on 09/16/16 09: 51; Admin Dose 1 APPLIC; Start 09/14/16 at 14:30 Mupirocin 1 applic 1 applic BID TOP Last administered on 09/16/16 09:51; Admin Dose 1 APPLIC; Start 09/14/16 at 21:00 Tobramycin/Sodium Chloride (Tobramycin/NS) 107.5 ml @ 103.75 mls/ hr Q48H IVPB ; Start 09/16/16 at 18:00 KO LOVING NP Sep 16, 2016 12:35
--- NOTE | 2016-09-16 13:05 | CONS ---
Date/Time of Note Date/Time of Note DATE: 09/16/16 TIME: 13:01 Assessment/Plan Assessment/Plan Additional Assessment/Plan Ventilator settings; assist control of 16, tidal volume of 500, PEEP of 5, 35% FiO2. Assessment and recommendation; 1. Patient with a history of severe CVA and anoxic encephalopathy with chronic respiratory failure remains ventilator dependent. 2. Sepsis. 3. History of colostomy. 4. Status post G-tube replacement. Continue current supportive care. Prognosis remains poor. Consultation Date/Type/Reason Admit Date/Time Aug 31, 2016 at 14:59 Initial Consult Date 09/01/16 Type of Consultation: Pulmonary Referring Provider: MARIO ROWE 24 HR Interval Summary Free Text/Dictation Patient condition remains stable. Remains completely unresponsive due to underlying anoxic enthesopathy. Remains ventilator dependent. Has remained hemodynamically stable. General examination; elderly male, currently in no distress. Exam/Review of Systems Vital Signs Vitals Vital Signs Date Time Temp Pulse Resp B/P Pulse Ox O2 Delivery O2 Flow Rate FiO2 09/16/16 12:33 96 17 100 40 09/16/16 11:51 98.0 131/79 Intake and Output 09/15/16 09/15/16 09/16/16 15:00 23:00 07:00 Intake Total 0 ml 110 ml Output Total 900 ml 800 ml Balance -900 ml -690 ml Exam HEENT examination; supple neck, no JVD. No lymphadenopathy. Patient is edentulous. Tracheostomy in place with clean insertion site. Chest examination; diminished but clear breath sounds. S1-S2 audible, no murmurs. Regular rhythm. Abdomen examination; soft, G-tube in place. Colostomy in place. Bowel sounds audible. Extremity examination; no peripheral edema. 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 Results Result Diagram: 09/16/16 0612 09/16/16 0612 Results 24 hrs Laboratory Tests Test 09/16/16 06:12 Anion Gap 13 Band Neutrophils % 2.0 Blood Morphology Comment Blood Urea Nitrogen 8 Calcium Level 8.2 L Carbon Dioxide Level 26 Chloride Level 97 Creatinine 0.76 Glucose Level 114 Hematocrit 31.0 L Hemoglobin 9.9 L Lymphocytes # 2.9 Lymphocytes % 37.0 Mean Corpuscular Hemoglobin 26.2 L Mean Corpuscular Hemoglobin Concent 32.1 Mean Corpuscular Volume 81.6 L Mean Platelet Volume 11.7 H Monocytes # 0.7 Monocytes % 9.0 Neutrophils # 4.1 Neutrophils % 52.0 Nucleated Red Blood Cells # Platelet Count 391 # Potassium Level 4.2 Red Blood Count 3.80 L Red Cell Distribution Width 18.3 H Sodium Level 132 L White Blood Count 7.9 # Medications Medications Current Medications Pantoprazole/ Sodium Chloride (Protonix Iv/NS) 100 ml @ 10 mls/hr Q10H IV Last administered on 09/16/16 02:07; Admin Dose 10 MLS/HR; Start 09/01/16 at 21: 00 Collagenase (Santyl) 1 applic DAILY TOP Last administered on 09/16/16 09:52; Admin Dose 1 APPLIC; Start 09/02/16 at 11:30 Tobramycin TOBRAMYCIN PER PHARMACY NOTE XX ; Start 09/06/16 at 12:30 Potassium Chloride/Dextrose (KCl/D5W) 1,010 ml @ 80 mls/hr [id number] IV Last administered on 09/16/16 06:55; Admin Dose 80 MLS/HR; Start 09/08/16 at 17:00 Clotrimazole (Lotrimin Cr) 1 applic BID TOP Last administered on 09/16/16 09: 51; Admin Dose 1 APPLIC; Start 09/14/16 at 14:30 Mupirocin 1 applic 1 applic BID TOP Last administered on 09/16/16 09:51; Admin Dose 1 APPLIC; Start 09/14/16 at 21:00 Tobramycin/Sodium Chloride (Tobramycin/NS) 107.5 ml @ 103.75 mls/ hr Q48H IVPB ; Start 09/16/16 at 18:00 SHAAN BUTT Sep 16, 2016 13:05
--- NOTE | 2016-09-16 13:32 | CONS ---
Date/Time of Note Date/Time of Note DATE: 09/16/16 TIME: 13:30 Assessment/Plan Assessment/Plan Additional Assessment/Plan Intermittent atrial tachycardia Frequent PACs and PVCs Preserved ejection fraction Hematemesis Respiratory failure Encephalopathy -Heart rate trend overall appears stable with brief episodes of tachycardia and self terminating. Maintain potassium above 4.0 and magnesium above 2.0. Consultation Date/Type/Reason Admit Date/Time Aug 31, 2016 at 14:59 Initial Consult Date 09/02/16 Type of Consultation: cv Referring Provider: MARIO ROWE 24 HR Interval Summary Free Text/Dictation Patient seen and examined Exam/Review of Systems Vital Signs Vitals Vital Signs Date Time Temp Pulse Resp B/P Pulse Ox O2 Delivery O2 Flow Rate FiO2 09/16/16 13:19 88 09/16/16 12:33 17 100 40 09/16/16 11:51 98.0 131/79 Intake and Output 09/15/16 09/15/16 09/16/16 15:00 23:00 07:00 Intake Total 0 ml 110 ml Output Total 900 ml 800 ml Balance -900 ml -690 ml Exam No response to verbal stimuli, no apparent distress Neck: other (Trach) Respiratory: other (Coarse breath sounds bilaterally, no wheezing) Cardiovascular: other (S1-S2 heard), regular rate and rhythm Gastrointestinal: bowel sounds, non-tender, soft Extremities: other (No edema) Results Result Diagram: 09/16/16 0612 09/16/16 0612 Results 24 hrs Laboratory Tests Test 09/16/16 06:12 Anion Gap 13 Band Neutrophils % 2.0 Blood Morphology Comment Blood Urea Nitrogen 8 Calcium Level 8.2 L Carbon Dioxide Level 26 Chloride Level 97 Creatinine 0.76 Glucose Level 114 Hematocrit 31.0 L Hemoglobin 9.9 L Lymphocytes # 2.9 Lymphocytes % 37.0 Mean Corpuscular Hemoglobin 26.2 L Mean Corpuscular Hemoglobin Concent 32.1 Mean Corpuscular Volume 81.6 L Mean Platelet Volume 11.7 H Monocytes # 0.7 Monocytes % 9.0 Neutrophils # 4.1 Neutrophils % 52.0 Nucleated Red Blood Cells # Platelet Count 391 # Potassium Level 4.2 Red Blood Count 3.80 L Red Cell Distribution Width 18.3 H Sodium Level 132 L White Blood Count 7.9 # Medications Medications Current Medications Pantoprazole/ Sodium Chloride (Protonix Iv/NS) 100 ml @ 10 mls/hr Q10H IV Last administered on 09/16/16 02:07; Admin Dose 10 MLS/HR; Start 09/01/16 at 21: 00 Collagenase (Santyl) 1 applic DAILY TOP Last administered on 09/16/16 09:52; Admin Dose 1 APPLIC; Start 09/02/16 at 11:30 Tobramycin TOBRAMYCIN PER PHARMACY NOTE XX ; Start 09/06/16 at 12:30 Potassium Chloride/Dextrose (KCl/D5W) 1,010 ml @ 80 mls/hr [id number] IV Last administered on 09/16/16 06:55; Admin Dose 80 MLS/HR; Start 09/08/16 at 17:00 Clotrimazole (Lotrimin Cr) 1 applic BID TOP Last administered on 09/16/16 09: 51; Admin Dose 1 APPLIC; Start 09/14/16 at 14:30 Mupirocin 1 applic 1 applic BID TOP Last administered on 09/16/16 09:51; Admin Dose 1 APPLIC; Start 09/14/16 at 21:00 Tobramycin/Sodium Chloride (Tobramycin/NS) 107.5 ml @ 103.75 mls/ hr Q48H IVPB ; Start 09/16/16 at 18:00 Maynor Broderick DO Sep 16, 2016 13:32
[2016-09-16] MEDS: TOBRAMYCIN 300 MG in SOD CHLORIDE 0.9% 100 ML IVPB SCH (17:50)
[2016-09-16] MEDS ORDERED: TOBRAMYCIN 300 MG in SOD CHLORIDE 0.9% 100 ML IVPB SCH (18:00)
[2016-09-17] VITALS (24 sets, daily range): BP systolic 132–179; BP diastolic 82–100; PULSE 89–107; RESP 16–27
[2016-09-17] MEDS: POTASSIUM CHLORIDE 20 MEQ in DEXTROSE 5% 1,000 ML IV SCH ×2 (02:22→15:34)
[2016-09-17] MEDS: PANTOPRAZOLE IV 80 MG in SOD CHLORIDE 0.9% 100 ML IV SCH ×3 (02:22→15:34)
[2016-09-17 08:16] LABS: HEMATOCRIT 30.8 % (42.0-52.0); HEMOGLOBIN 9.9 g/dl (14.0-18.0); MEAN CORPUSCULAR HEMOGLOBIN 26.3 pg (29.0-33.0); MEAN CORPUSCULAR HGB CONC 32.1 g/dl (32.0-37.0); MEAN PLATELET VOLUME 12.9 fl (7.4-10.4); PLATELET COUNT 308 10^3/UL (140-440); RED BLOOD COUNT 3.76 10^6/ul (4.70-6.10); RED CELL DISTRIBUTION WIDTH 18.8 % (11.5-14.5); UNCORRECTED WBC 9.7 10^3/ul (4.8-10.8); WHITE BLOOD COUNT 9.7 10^3/ul (4.8-10.8)
[2016-09-17 08:19] LABS: POTASSIUM 4.2 mmol/L (3.5-5.1)
[2016-09-17 08:22] LABS: CALCIUM 8.4 mg/dl (8.4-10.2); CREATININE 0.86 mg/dl (0.61-1.24)
[2016-09-17 08:27] LABS: CONDITION 1; LH ANALYZER COMMENTS 1; SUSPECT 1
[2016-09-17] MEDS: COLLAGENASE 30 GM TUBE TOP SCH (09:00)
[2016-09-17 11:08] LABS: EOSINOPHILS # 0.1 10^3/ul (0.0-0.5); LYMPHOCYTES # 1.2 10^3/ul (0.8-2.9); MONOCYTE # 1.6 10^3/ul (0.3-0.9); NEUTROPHIL # 6.7 10^3/ul (1.6-7.5)
--- NOTE | 2016-09-17 13:03 | CONS ---
Date/Time of Note Date/Time of Note DATE: 09/17/16 TIME: 13:00 Assessment/Plan Assessment/Plan Additional Assessment/Plan Intermittent atrial tachycardia and atrial fibrillation Frequent PACs and PVCs Preserved ejection fraction Hematemesis Respiratory failure Encephalopathy -Patient with more frequent episodes of atrial tachycardia and brief episodes of atrial fibrillation. Given recent GI bleeding, no anticoagulation at the current time. We will start amiodarone to help maintain in sinus rhythm. Consultation Date/Type/Reason Admit Date/Time Aug 31, 2016 at 14:59 Initial Consult Date 09/02/16 Type of Consultation: cv Referring Provider: MARIO ROWE 24 HR Interval Summary Free Text/Dictation Patient seen and examined Exam/Review of Systems Vital Signs Vitals Vital Signs Date Time Temp Pulse Resp B/P Pulse Ox O2 Delivery O2 Flow Rate FiO2 09/17/16 12:19 98 09/17/16 12:04 98.5 18 139/100 98 09/17/16 11:00 35 Intake and Output 09/16/16 09/16/16 09/17/16 14:59 22:59 06:59 Intake Total 120 ml 320 ml Output Total 550 ml 1400 ml Balance -430 ml -1080 ml Exam No apparent distress, no response to verbal stimuli Head: normocephalic Neck: other (Tracheostomy) Respiratory: other (Coarse breath sounds bilaterally, no wheezing) Cardiovascular: other (S1-S2 heard), regular rate and rhythm Gastrointestinal: bowel sounds, other (No grimacing with palpation), soft Extremities: other (No edema) Results Result Diagram: 09/17/16 0610 09/17/16 0610 Results 24 hrs Laboratory Tests Test 09/17/16 06:10 Anion Gap 14 Band Neutrophils % 2.0 Blood Morphology Comment Blood Urea Nitrogen 10 Calcium Level 8.4 Carbon Dioxide Level 27 Chloride Level 96 L Creatinine 0.86 Differential Comment MANUAL DIFF Eosinophils # 0.1 Eosinophils % 1.0 Glucose Level 99 Hematocrit 30.8 L Hemoglobin 9.9 L Lymphocytes # 1.2 Lymphocytes % 12.0 L Mean Corpuscular Hemoglobin 26.3 L Mean Corpuscular Hemoglobin Concent 32.1 Mean Corpuscular Volume 82.0 Mean Platelet Volume 12.9 H Monocytes # 1.6 H Monocytes % 16.0 H Neutrophils # 6.7 Neutrophils % 69.0 Nucleated Red Blood Cells # Nucleated Red Blood Cells % Platelet Count 308 # Potassium Level 4.2 Red Blood Count 3.76 L Red Cell Distribution Width 18.8 H Sodium Level 133 L White Blood Count 9.7 # Medications Medications Current Medications Pantoprazole/ Sodium Chloride (Protonix Iv/NS) 100 ml @ 10 mls/hr Q10H IV Last administered on 09/17/16 06:49; Admin Dose 10 MLS/HR; Start 09/01/16 at 21: 00 Collagenase (Santyl) 1 applic DAILY TOP Last administered on 09/16/16 09:52; Admin Dose 1 APPLIC; Start 09/02/16 at 11:30 Tobramycin TOBRAMYCIN PER PHARMACY NOTE XX ; Start 09/06/16 at 12:30 Potassium Chloride/Dextrose (KCl/D5W) 1,010 ml @ 80 mls/hr [id number] IV Last administered on 09/17/16 02:22; Admin Dose 80 MLS/HR; Start 09/08/16 at 17:00 Clotrimazole (Lotrimin Cr) 1 applic BID TOP Last administered on 09/16/16 22: 05; Admin Dose 1 APPLIC; Start 09/14/16 at 14:30 Mupirocin 1 applic 1 applic BID TOP Last administered on 09/16/16 22:06; Admin Dose 1 APPLIC; Start 09/14/16 at 21:00 Tobramycin/Sodium Chloride (Tobramycin/NS) 107.5 ml @ 103.75 mls/ hr Q48H IVPB Last administered on 09/16/16 17:50; Admin Dose 103.75 MLS/HR; Start at 18:00 Maynor Broderick DO Sep 17, 2016 13:02
--- NOTE | 2016-09-17 13:54 | CONS ---
Date/Time of Note Date/Time of Note DATE: 09/17/16 TIME: 13:52 Assessment/Plan Assessment/Plan Additional Assessment/Plan Ventilator settings; assist control 16, tidal volume 500, PEEP of 5, 35% FiO2. Assessment and recommendations; 1. Chronic respiratory failure due to anoxic brain injury patient remains ventilator dependent. 2. History of colostomy. 3. Status post G-tube replacement. 4. Sepsis. Continue current treatment. Consultation Date/Type/Reason Admit Date/Time Aug 31, 2016 at 14:59 Initial Consult Date 09/01/16 Type of Consultation: Pulmonary Referring Provider: MARIO ROWE 24 HR Interval Summary Free Text/Dictation Patient's condition remains stable. Remains unresponsive. Has remained hemodynamically stable. General examination; elderly male, on ventilator via tracheostomy currently in no distress and remains unresponsive. Exam/Review of Systems Vital Signs Vitals Vital Signs Date Time Temp Pulse Resp B/P Pulse Ox O2 Delivery O2 Flow Rate FiO2 09/17/16 13:00 96 16 99 35 09/17/16 12:04 98.5 139/100 Intake and Output 09/16/16 09/16/16 09/17/16 15:00 23:00 07:00 Intake Total 120 ml 320 ml Output Total 550 ml 1400 ml Balance -430 ml -1080 ml Exam HEENT examination; supple neck, no JVD. No lymphadenopathy. Tracheostomy in place. Insertion site is clean. Patient is edentulous. Pupils are midsize bilaterally. Chest examination; clear to auscultation bilaterally. S1-S2 audible, no murmurs. Regular rhythm. Abdomen examination; colostomy in place. G-tube in place. Bowel sounds audible. Abdomen is nondistended. No organomegaly felt. Extremity examination; no peripheral edema. 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 Results Result Diagram: 09/17/16 0610 09/17/16 0610 Results 24 hrs Laboratory Tests Test 09/17/16 06:10 Anion Gap 14 Band Neutrophils % 2.0 Blood Morphology Comment Blood Urea Nitrogen 10 Calcium Level 8.4 Carbon Dioxide Level 27 Chloride Level 96 L Creatinine 0.86 Differential Comment MANUAL DIFF Eosinophils # 0.1 Eosinophils % 1.0 Glucose Level 99 Hematocrit 30.8 L Hemoglobin 9.9 L Lymphocytes # 1.2 Lymphocytes % 12.0 L Mean Corpuscular Hemoglobin 26.3 L Mean Corpuscular Hemoglobin Concent 32.1 Mean Corpuscular Volume 82.0 Mean Platelet Volume 12.9 H Monocytes # 1.6 H Monocytes % 16.0 H Neutrophils # 6.7 Neutrophils % 69.0 Nucleated Red Blood Cells # Nucleated Red Blood Cells % Platelet Count 308 # Potassium Level 4.2 Red Blood Count 3.76 L Red Cell Distribution Width 18.8 H Sodium Level 133 L White Blood Count 9.7 # Medications Medications Current Medications Pantoprazole/ Sodium Chloride (Protonix Iv/NS) 100 ml @ 10 mls/hr Q10H IV Last administered on 09/17/16 06:49; Admin Dose 10 MLS/HR; Start 09/01/16 at 21: 00 Collagenase (Santyl) 1 applic DAILY TOP Last administered on 09/16/16 09:52; Admin Dose 1 APPLIC; Start 09/02/16 at 11:30 Tobramycin TOBRAMYCIN PER PHARMACY NOTE XX ; Start 09/06/16 at 12:30 Potassium Chloride/Dextrose (KCl/D5W) 1,010 ml @ 80 mls/hr [id number] IV Last administered on 09/17/16 02:22; Admin Dose 80 MLS/HR; Start 09/08/16 at 17:00 Clotrimazole (Lotrimin Cr) 1 applic BID TOP Last administered on 09/16/16 22: 05; Admin Dose 1 APPLIC; Start 09/14/16 at 14:30 Mupirocin 1 applic 1 applic BID TOP Last administered on 09/16/16 22:06; Admin Dose 1 APPLIC; Start 09/14/16 at 21:00 Tobramycin/Sodium Chloride (Tobramycin/NS) 107.5 ml @ 103.75 mls/ hr Q48H IVPB Last administered on 09/16/16 17:50; Admin Dose 103.75 MLS/HR; Start at 18:00 Amiodarone HCl (Cordarone) 200 mg BID NGT ; Start 09/17/16 at 13:30 SHAAN BUTT Sep 17, 2016 13:54
[2016-09-17] MEDS: MUPIROCIN 2% 22 GM OINT TOP SCH ×2 (14:05→21:50)
[2016-09-17] MEDS: CLOTRIMAZOLE 1% 30 GM CR TOP SCH ×2 (14:06→21:50)
--- NOTE | 2016-09-17 16:03 | CONS ---
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 the wound culture grew carbapenemase producing kleb, enterococci and pseudo - leakage of gastric contents from GT site, now has ostomy bag - resolved - dysphagia s/p EGD and new G tube placement 09/15/2016 - infection of wound of RLE due to pseudomonas. 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 We recommend covering MRSA, and bacteria in the abdominal wound and RLE wound as much as possible - Continue IV tobramycin (09/06/2016-) for pseudomonas, planned through 09/20/2016 - Continue Clotrimazole and Bactroban to BLE rash; keep area clean and dry; consider dermasmooth; consider Dermatology consult - Above d/w Dr. Tang Problems: Consultation Date/Type/Reason Admit Date/Time Aug 31, 2016 at 14:59 Initial Consult Date 09/02/16 Type of Consultation: Infectious Disease Referring Provider: MARIO ROWE 24 HR Interval Summary Free Text/Dictation GT feeds on hold d/t vomiting but pt did not have any GT residuals per nursing staff. Remains non-communicative. Exam/Review of Systems Vital Signs Vitals Vital Signs Date Time Temp Pulse Resp B/P Pulse Ox O2 Delivery O2 Flow Rate FiO2 09/17/16 15:54 98.0 115 19 179/100 97 09/17/16 15:20 35 Intake and Output 09/16/16 09/16/16 09/17/16 15:00 23:00 07:00 Intake Total 120 ml 320 ml Output Total 550 ml 1400 ml Balance -430 ml -1080 ml Exam Constitutional: frail, other (non-communicative; chronically debilitated, cachectic ) Head: atraumatic, normocephalic, other (temporal wasting noted) Neck: other (trach midline) Respiratory: Coarse breath sounds Cardiovascular: nl pulses, regular rate and rhythm Gastrointestinal: bowel sounds, other (colostomy intact - stoma pink/no stool; New G tube with Tube feedings intact with scant blood at GT insertion site), soft Genitourinary - Male: other (vincent cath intact with yellow urine with sediments ) Musculoskeletal: muscle weakness Extremities: normal pulses, other (bilateral foot drop noted), trace edema No clubbing, No cyanosis Neurological: unresponsive Skin: other (RLE dressing c/d/i); scattered papule rash to BLE medially, R>L Results Result Diagram: 09/17/16 0610 09/17/16 0610 Results 24 hrs Laboratory Tests Test 09/17/16 06:10 Anion Gap 14 Band Neutrophils % 2.0 Blood Morphology Comment Blood Urea Nitrogen 10 Calcium Level 8.4 Carbon Dioxide Level 27 Chloride Level 96 L Creatinine 0.86 Differential Comment MANUAL DIFF Eosinophils # 0.1 Eosinophils % 1.0 Glucose Level 99 Hematocrit 30.8 L Hemoglobin 9.9 L Lymphocytes # 1.2 Lymphocytes % 12.0 L Mean Corpuscular Hemoglobin 26.3 L Mean Corpuscular Hemoglobin Concent 32.1 Mean Corpuscular Volume 82.0 Mean Platelet Volume 12.9 H Monocytes # 1.6 H Monocytes % 16.0 H Neutrophils # 6.7 Neutrophils % 69.0 Nucleated Red Blood Cells # Nucleated Red Blood Cells % Platelet Count 308 # Potassium Level 4.2 Red Blood Count 3.76 L Red Cell Distribution Width 18.8 H Sodium Level 133 L White Blood Count 9.7 # Medications Medications Current Medications Pantoprazole/ Sodium Chloride (Protonix Iv/NS) 100 ml @ 10 mls/hr Q10H IV Last administered on 09/17/16 15:34; Admin Dose 10 MLS/HR; Start 09/01/16 at 21: 00 Collagenase (Santyl) 1 applic DAILY TOP Last administered on 09/17/16 09:00; Admin Dose 1 APPLIC; Start 09/02/16 at 11:30 Tobramycin TOBRAMYCIN PER PHARMACY NOTE XX ; Start 09/06/16 at 12:30 Potassium Chloride/Dextrose (KCl/D5W) 1,010 ml @ 80 mls/hr [id number] IV Last administered on 09/17/16 15:34; Admin Dose 80 MLS/HR; Start 09/08/16 at 17:00 Clotrimazole (Lotrimin Cr) 1 applic BID TOP Last administered on 09/17/16 14: 06; Admin Dose 1 APPLIC; Start 09/14/16 at 14:30 Mupirocin 1 applic 1 applic BID TOP Last administered on 09/17/16 14:05; Admin Dose 1 APPLIC; Start 09/14/16 at 21:00 Tobramycin/Sodium Chloride (Tobramycin/NS) 107.5 ml @ 103.75 mls/ hr Q48H IVPB Last administered on 09/16/16 17:50; Admin Dose 103.75 MLS/HR; Start at 18:00 Amiodarone HCl (Cordarone) 200 mg BID NGT ; Start 09/17/16 at 13:30 KO LOVING NP Sep 17, 2016 16:03
[2016-09-17] MEDS: AMIODARONE 200 MG TAB NGT SCH ×2 (16:11→21:49)
[2016-09-17] MEDS: hydrALAzine 20 MG INJ IV PRN (16:11)
--- NOTE | 2016-09-17 17:02 | PN ---
Date/Time of Note Date/Time of Note DATE: 09/17/16 TIME: 16:58 Assessment/Plan VTE Prophylaxis VTE Prophylaxis Intervention: SCD's Lines/Catheters IV Catheter Type (from Nrs): Peripheral IV Urinary Cath still in place: Yes Reason Cath still needed: urinary retention Assessment/Plan Chief Complaint/Hosp Course ASSESSMENT AND PLAN: - Dysphagia, s/p J-tube placement. Patient with high residual and emesis today. Continue Zofran as needed for nausea. Continue to monitor G-tube residual. Follow-up gastroenterology recommendation. 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 Continue Protonix. Dr. Pryor is following the patient in gastroenterology consultation. Continue IV fluids. - Anemia 2 to GI bleed, no indication for blood transfusion, monitor H&H. - Dehydration secondary to vomiting, resolved. - S/p sepsis with Staph bacteremia [address] Godfrey is following in ID consultation. Continue abx per ID. 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 - Ventilator-dependent respiratory failure with tracheostomy. Dr. Morrison is following from pulmonology standpoint. Continue bronchodilators and pulmonary toilet. - Chronic obstructive pulmonary disease. - Chronic Chaudhari catheter. - Colostomy - Hypertension, metoprolol and hydralazine as needed. - Bedbound status. - Acute kidney injury, resolved. - MRSA UTI , s/p treatment. - MRSA of nares. Continue Bactroban. - Intermittent atrial tachycardia. Dr. Broderick is is following in cardiology consultation, continue telemetry monitoring. Monitor electrolytes. Continue sequential compression device for deep venous thrombosis prophylaxis and Protonix for peptic ulcer disease prophylaxis. Further recommendations based on clinical course. Plan of care discussed with Dr. Meeks. Problems: Subjective 24 Hr Interval Summary Free Text/Dictation Patient is high G-tube residual, patient also had an episode of nonbloody emesis , hypertensive. Exam/Review of Systems Vital Signs Vitals Vital Signs Date Time Temp Pulse Resp B/P Pulse Ox O2 Delivery O2 Flow Rate FiO2 09/17/16 16:17 104 09/17/16 15:54 98.0 19 179/100 97 09/17/16 15:20 35 Intake and Output 09/16/16 09/16/16 09/17/16 15:00 23:00 07:00 Intake Total 120 ml 320 ml Output Total 550 ml 1400 ml Balance -430 ml -1080 ml Exam GENERAL: Well-developed, cachectic gentleman currently obtunded on ventilator support via tracheostomy. HEENT: Pupils equal, round, reactive to light and accommodation. NECK: Supple, no cervical lymphadenopathy, no thyromegaly. Tracheostomy the base of the neck with small amount of secretions. LUNGS: Rhonchi bilaterally, slightly diminished at the bases. CARDIOVASCULAR: Normal S1, S2. No murmurs, gallops, clicks, rubs noted. ABDOMEN: Flat, soft, nondistended, nontender. Bowel sounds hypoactive. Patient has left lower quadrant colostomy with pink, moist stoma. G-tube. GENITOURINARY: The patient also has a Chaudhari catheter. EXTREMITIES: No edema, clubbing, cyanosis. Pulses equal bilaterally 2+. Lower extremities contracted. SKIN: There is no rash, petechiae noted. The patient has a sacral decubitus ulcer stage II. See nursing notes for further description. NEUROLOGIC: Patient does not follow any commands. Results Result Diagram: 09/17/16 0610 09/17/16 0610 Results 24 hrs Laboratory Tests Test 09/17/16 06:10 Anion Gap 14 Band Neutrophils % 2.0 Blood Morphology Comment Blood Urea Nitrogen 10 Calcium Level 8.4 Carbon Dioxide Level 27 Chloride Level 96 L Creatinine 0.86 Differential Comment MANUAL DIFF Eosinophils # 0.1 Eosinophils % 1.0 Glucose Level 99 Hematocrit 30.8 L Hemoglobin 9.9 L Lymphocytes # 1.2 Lymphocytes % 12.0 L Mean Corpuscular Hemoglobin 26.3 L Mean Corpuscular Hemoglobin Concent 32.1 Mean Corpuscular Volume 82.0 Mean Platelet Volume 12.9 H Monocytes # 1.6 H Monocytes % 16.0 H Neutrophils # 6.7 Neutrophils % 69.0 Nucleated Red Blood Cells # Nucleated Red Blood Cells % Platelet Count 308 # Potassium Level 4.2 Red Blood Count 3.76 L Red Cell Distribution Width 18.8 H Sodium Level 133 L White Blood Count 9.7 # Medications Medications Current Medications Pantoprazole/ Sodium Chloride (Protonix Iv/NS) 100 ml @ 10 mls/hr Q10H IV Last administered on 09/17/16t 15:34; Admin Dose 10 MLS/HR; Start 09/01/16 at 21: 00 Collagenase (Santyl) 1 applic DAILY TOP Last administered on 09/17/16 09:00; Admin Dose 1 APPLIC; Start 09/02/16 at 11:30 Tobramycin TOBRAMYCIN PER PHARMACY NOTE XX ; Start 09/06/16 at 12:30 Potassium Chloride/Dextrose (KCl/D5W) 1,010 ml @ 80 mls/hr [id number] IV Last administered on 09/17/16 15:34; Admin Dose 80 MLS/HR; Start 09/08/16 at 17:00 Clotrimazole (Lotrimin Cr) 1 applic BID TOP Last administered on 09/17/16 14: 06; Admin Dose 1 APPLIC; Start 09/14/16 at 14:30 Mupirocin 1 applic 1 applic BID TOP Last administered on 09/17/16 14:05; Admin Dose 1 APPLIC; Start 09/14/16 at 21:00 Tobramycin/Sodium Chloride (Tobramycin/NS) 107.5 ml @ 103.75 mls/ hr Q48H IVPB Last administered on 09/16/16 17:50; Admin Dose 103.75 MLS/HR; Start at 18:00 Amiodarone HCl (Cordarone) 200 mg BID NGT Last administered on 09/17/16 16:11 ; Admin Dose 200 MG; Start 09/17/16 at 13:30 Hydralazine HCl (Apresoline) 10 mg Q4H PRN IV ELEVATED BLOOD PRESSURE Last administered on 09/17/16 16:11; Admin Dose 10 MG; Start 09/17/16 at 16:00 Metoclopramide HCl (Reglan) 5 mg Q6 IV ; Start 09/17/16 at 18:00 AMY MORAN Sep 17, 2016 17:02
[2016-09-17] MEDS: D5-NS + KCL 20 MEQ 1,000 ML IV SCH (17:36)
[2016-09-17] MEDS: METOCLOPRAMIDE 10 MG INJ IV SCH (17:37)
[2016-09-17] MEDS: METOPROLOL 50 MG TAB PO SCH (21:49)
[2016-09-18] VITALS (25 sets, daily range): BP systolic 115–179; BP diastolic 64–95; PULSE 64–119; RESP 16–31
[2016-09-18] MEDS: METOCLOPRAMIDE 10 MG INJ IV SCH ×5 (00:58→23:53)
[2016-09-18] MEDS: PANTOPRAZOLE IV 80 MG in SOD CHLORIDE 0.9% 100 ML IV SCH ×3 (02:39→23:53)
[2016-09-18 06:50] LABS: BASOPHILS % 0.3 % (0.0-2.0); EOSINOPHILS # 0.1 10^3/ul (0.0-0.5); EOSINOPHILS % 0.5 % (0.0-7.0); HEMATOCRIT 30.6 % (42.0-52.0); HEMOGLOBIN 9.8 g/dl (14.0-18.0); LYMPHOCYTES # 1.8 10^3/ul (0.8-2.9); LYMPHOCYTES % 18.3 % (15.0-51.0); MEAN CORPUSCULAR HEMOGLOBIN 26.3 pg (29.0-33.0); MEAN CORPUSCULAR VOLUME 82.4 fl (82.0-101.0); MEAN PLATELET VOLUME 12.5 fl (7.4-10.4); MONOCYTE # 1.2 10^3/ul (0.3-0.9); NEUTROPHILS % 68.9 % (39.0-77.0); PLATELET COUNT 355 10^3/UL (140-440); RED BLOOD COUNT 3.71 10^6/ul (4.70-6.10); RED CELL DISTRIBUTION WIDTH 18.9 % (11.5-14.5); UNCORRECTED WBC 10.1 10^3/ul (4.8-10.8); WHITE BLOOD COUNT 10.1 10^3/ul (4.8-10.8)
[2016-09-18 06:52] LABS: CONDITION 1; LH ANALYZER COMMENTS 1; SUSPECT 1
[2016-09-18 07:14] LABS: CALCIUM 8.5 mg/dl (8.4-10.2); CREATININE 1.2 mg/dl (0.61-1.24)
[2016-09-18] MEDS: METOPROLOL 50 MG TAB PO SCH ×2 (08:50→21:48)
[2016-09-18] MEDS: AMIODARONE 200 MG TAB NGT SCH ×2 (08:50→21:48)
[2016-09-18] MEDS: COLLAGENASE 30 GM TUBE TOP SCH (09:00)
--- NOTE | 2016-09-18 09:39 | PN ---
Date/Time of Note Date/Time of Note DATE: 09/18/16 TIME: 09:38 Assessment/Plan VTE Prophylaxis VTE Prophylaxis Intervention: other Lines/Catheters IV Catheter Type (from Nrsg): Peripheral IV Urinary Cath still in place: Yes Reason Cath still needed: skin wounds contaminated by urine Assessment/Plan Chief Complaint/Hosp Course - Dysphagia, s/p J-tube placement. Patient with high residual and emesis today. Continue Zofran as needed for nausea. Continue to monitor G-tube residual. Follow-up gastroenterology recommendation. 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 Continue Protonix. Dr. Pryor is following the patient in gastroenterology consultation. Continue IV fluids. - Anemia 2 to GI bleed, no indication for blood transfusion, monitor H&H. - Dehydration secondary to vomiting, resolved. - S/p sepsis with Staph bacteremia [address] Godfrey is following in ID consultation. Continue abx per ID. 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 - Ventilator-dependent respiratory failure with tracheostomy. Dr. Morrison is following from pulmonology standpoint. Continue bronchodilators and pulmonary toilet. - Chronic obstructive pulmonary disease. - Chronic Chaudhari catheter. - Colostomy - Hypertension, metoprolol and hydralazine as needed. - Bedbound status. - Acute kidney injury, resolved. - MRSA UTI , s/p treatment. - MRSA of nares. Continue Bactroban. - Intermittent atrial tachycardia. Dr. Broderick is is following in cardiology consultation, continue telemetry monitoring. Monitor electrolytes. Problems: Subjective 24 Hr Interval Summary Free Text/Dictation Patient is sedated, on vent via trach Exam/Review of Systems Vital Signs Vitals Vital Signs Date Time Temp Pulse Resp B/P Pulse Ox O2 Delivery O2 Flow Rate FiO2 09/18/16 08:56 96 09/18/16 07:16 98.8 20 153/91 97 09/18/16 05:20 30 Intake and Output 09/17/16 09/17/16 09/18/16 15:00 23:00 07:00 Intake Total 990 ml Output Total 500 ml Balance 490 ml Exam Constitutional: well developed Head: atraumatic, normocephalic Neck: supple Respiratory: diminished breath sounds Cardiovascular: regular rate and rhythm Gastrointestinal: non-tender, soft Results Result Diagram: 09/18/16 0550 09/18/16 0550 Results 24 hrs Laboratory Tests Test 09/18/16 05:50 Anion Gap 15 Basophils # 0.0 Basophils % 0.3 Blood Morphology Comment Blood Urea Nitrogen 14 Calcium Level 8.5 Carbon Dioxide Level 25 Chloride Level 99 Creatinine 1.20 Eosinophils # 0.1 Eosinophils % 0.5 Glucose Level 115 Hematocrit 30.6 L Hemoglobin 9.8 L Lymphocytes # 1.8 Lymphocytes % 18.3 Mean Corpuscular Hemoglobin 26.3 L Mean Corpuscular Hemoglobin Concent 32.0 Mean Corpuscular Volume 82.4 Mean Platelet Volume 12.5 H Monocytes # 1.2 H Monocytes % 12.0 H Neutrophils # 7.0 Neutrophils % 68.9 Nucleated Red Blood Cells # 0.0 Nucleated Red Blood Cells % 0.0 Platelet Count 355 Potassium Level 5.0 Red Blood Count 3.71 L Red Cell Distribution Width 18.9 H Sodium Level 134 L White Blood Count 10.1 Medications Medications Current Medications Pantoprazole/ Sodium Chloride (Protonix Iv/NS) 100 ml @ 10 mls/hr Q10H IV Last administered on 09/18/16 02:39; Admin Dose 10 MLS/HR; Start 09/01/16 at 21: 00 Collagenase (Santyl) 1 applic DAILY TOP Last administered on 09/17/16 09:00; Admin Dose 1 APPLIC; Start 09/02/16 at 11:30 Tobramycin (Tobramycin Iv Per Pharmacy) TOBRAMYCIN PER PHARMACY NOTE XX ; Start 09/06/16 at 12:30 Clotrimazole (Lotrimin Cr) 1 applic BID TOP Last administered on 09/17/16 21: 50; Admin Dose 1 APPLIC; Start 09/14/16 at 14:30 Mupirocin 1 applic 1 applic BID TOP Last administered on 09/17/16 21:50; Admin Dose 1 APPLIC; Start 09/14/16 at 21:00 Tobramycin/Sodium Chloride (Tobramycin/NS) 107.5 ml @ 103.75 mls/ hr Q48H IVPB Last administered on 09/16/16 17:50; Admin Dose 103.75 MLS/HR; Start at 18:00 Amiodarone HCl (Cordarone) 200 mg BID NGT Last administered on 09/18/16 08:50 ; Admin Dose 200 MG; Start 09/17/16 at 13:30 Hydralazine HCl (Apresoline) 10 mg Q4H PRN IV ELEVATED BLOOD PRESSURE Last administered on 09/17/16 16:11; Admin Dose 10 MG; Start 09/17/16 at 16:00 Metoclopramide HCl (Reglan) 5 mg Q6 IV Last administered on 09/18/16 06:06; Admin Dose 5 MG; Start 09/17/16 at 18:00 Metoprolol Tartrate 50 mg 50 mg BID PO Last administered on 09/18/16 08:50; Admin Dose 50 MG; Start 09/17/16 at 21:00 Potassium Chloride/Dextrose/ Sod Cl (D5-NS + KCl 20 Meq) 1,000 ml @ 50 mls/hr Q20H IV Last administered on 09/17/16 17:36; Admin Dose 50 MLS/HR; Start 09/17 at 17:30 Miscellaneous Information (*Rx Drug Level Order Reminder*) TOBRAMYCIN TR LEVEL PRIOR... ONCE ONCE XX ; Start 09/18/16 at 17:00; Stop 09/18/16 at 17:01 OLI ZUNIGA Sep 18, 2016 09:39
[2016-09-18] MEDS: morphine 2 MG INJ IV PRN (11:54)
--- NOTE | 2016-09-18 12:04 | CONS ---
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 the wound culture grew carbapenemase producing kleb, enterococci and pseudo - leakage of gastric contents from GT site, now has ostomy bag - resolved - dysphagia s/p EGD and new G tube placement 09/15/2016 - infection of wound of RLE due to pseudomonas. 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 We recommend covering MRSA, and bacteria in the abdominal wound and RLE wound as much as possible - continue IV tobramycin (09/06/2016-) for pseudomonas, planned through 09/20/2016 - continue topical antimicrobials management d/w Pt's RN Problems: Consultation Date/Type/Reason Admit Date/Time Aug 31, 2016 at 14:59 Initial Consult Date 09/01/16 Type of Consultation: Infectious Disease Referring Provider: MARIO ROWE 24 HR Interval Summary Subjective hx not possible: pt non-verbal Exam/Review of Systems Vital Signs Vitals Vital Signs Date Time Temp Pulse Resp B/P Pulse Ox O2 Delivery O2 Flow Rate FiO2 09/18/16 11:11 71 16 99 30 09/18/16 10:56 99.0 122/71 Intake and Output 09/17/16 09/17/16 09/18/16 15:00 23:00 07:00 Intake Total 990 ml Output Total 500 ml Balance 490 ml Exam Constitutional: frail Psych: confusion Head: other (temporal atrophy b/l) Eyes: nl lids ENMT: other (trach) Respiratory: crackles/rales Cardiovascular: nl pulses, regular rate and rhythm Gastrointestinal: non-tender, other (GT, colostomy), soft Musculoskeletal: other (atrophy) Extremities: No edema Neurological: lethargic, unresponsive Skin: laceration (lateral RLE, non-purulent) Results Result Diagram: 09/18/16 0550 09/18/16 0550 Results 24 hrs Laboratory Tests Test 09/18/16 05:50 09/18/16 11:44 Anion Gap 15 Basophils # 0.0 Basophils % 0.3 Blood Morphology Comment Blood Urea Nitrogen 14 Calcium Level 8.5 Carbon Dioxide Level 25 Chloride Level 99 Creatinine 1.20 Eosinophils # 0.1 Eosinophils % 0.5 Glucose Level 115 Hematocrit 30.6 L Hemoglobin 9.8 L Lymphocytes # 1.8 Lymphocytes % 18.3 Mean Corpuscular Hemoglobin 26.3 L Mean Corpuscular Hemoglobin Concent 32.0 Mean Corpuscular Volume 82.4 Mean Platelet Volume 12.5 H Monocytes # 1.2 H Monocytes % 12.0 H Neutrophils # 7.0 Neutrophils % 68.9 Nucleated Red Blood Cells # 0.0 Nucleated Red Blood Cells % 0.0 Platelet Count 355 Potassium Level 5.0 Red Blood Count 3.71 L Red Cell Distribution Width 18.9 H Sodium Level 134 L White Blood Count 10.1 Bedside Glucose 111 Medications Medications Current Medications Pantoprazole/ Sodium Chloride (Protonix Iv/NS) 100 ml @ 10 mls/hr Q10H IV Last administered on 09/18/16 11:47; Admin Dose 10 MLS/HR; Start 09/01/16 at 21: 00 Collagenase (Santyl) 1 applic DAILY TOP Last administered on 09/17/16 09:00; Admin Dose 1 APPLIC; Start 09/02/16 at 11:30 Tobramycin (Tobramycin Iv Per Pharmacy) TOBRAMYCIN PER PHARMACY NOTE XX ; Start 09/06/16 at 12:30 Clotrimazole (Lotrimin Cr) 1 applic BID TOP Last administered on 09/17/16 21: 50; Admin Dose 1 APPLIC; Start 09/14/16 at 14:30 Mupirocin 1 applic 1 applic BID TOP Last administered on 09/17/16 21:50; Admin Dose 1 APPLIC; Start 09/14/16 at 21:00 Tobramycin/Sodium Chloride (Tobramycin/NS) 107.5 ml @ 103.75 mls/ hr Q48H IVPB Last administered on 09/16/16 17:50; Admin Dose 103.75 MLS/HR; Start at 18:00 Amiodarone HCl (Cordarone) 200 mg BID NGT Last administered on 09/18/16 08:50 ; Admin Dose 200 MG; Start 09/17/16 at 13:30 Hydralazine HCl (Apresoline) 10 mg Q4H PRN IV ELEVATED BLOOD PRESSURE Last administered on 09/17/16 16:11; Admin Dose 10 MG; Start 09/17/16 at 16:00 Metoclopramide HCl (Reglan) 5 mg Q6 IV Last administered on 09/18/16 12:01; Admin Dose 5 MG; Start 09/17/16 at 18:00 Metoprolol Tartrate 50 mg 50 mg BID PO Last administered on 09/18/16 08:50; Admin Dose 50 MG; Start 09/17/16 at 21:00 Potassium Chloride/Dextrose/ Sod Cl (D5-NS + KCl 20 Meq) 1,000 ml @ 50 mls/hr Q20H IV Last administered on 09/17/16 17:36; Admin Dose 50 MLS/HR; Start 09/17 at 17:30 Miscellaneous Information (*Rx Drug Level Order Reminder*) TOBRAMYCIN TR LEVEL PRIOR... ONCE ONCE XX ; Start 09/18/16 at 17:00; Stop 09/18/16 at 17:01 Morphine Sulfate (morphine) 2 mg Q4H PRN IV PAIN LEVEL 7-10 Last administered on 09/18/16 11:54; Admin Dose 2 MG; Start 09/18/16 at 12:00 LIZZY HECK M.D. Sep 18, 2016 12:04
[2016-09-18] MEDS: D5-NS + KCL 20 MEQ 1,000 ML IV SCH (13:03)
[2016-09-18] MEDS: CLOTRIMAZOLE 1% 30 GM CR TOP SCH ×2 (17:10→21:48)
[2016-09-18] MEDS: TOBRAMYCIN 300 MG in SOD CHLORIDE 0.9% 100 ML IVPB SCH (17:11)
[2016-09-18] MEDS: MUPIROCIN 2% 22 GM OINT TOP SCH ×2 (17:11→21:48)
--- NOTE | 2016-09-18 19:36 | CONS ---
Date/Time of Note Date/Time of Note DATE: 09/18/16 TIME: 19:35 Consult Date/Type/Reason Admit Date/Time Aug 31, 2016 at 14:59 Initial Consult Date 09/02/16 Type of Consultation: Pulm Ordering Provider: MARIO ROWE Subjective no events on [facility] vent. Objective Vital Signs Date Time Temp Pulse Resp B/P Pulse Ox O2 Delivery O2 Flow Rate FiO2 09/18/16 19:25 64 17 98 30 09/18/16 15:13 98.8 119/67 Intake and Output 09/17/16 09/17/16 09/18/16 15:00 23:00 07:00 Intake Total 990 ml Output Total 500 ml Balance 490 ml HEENT: Neck supple; no JVD; no LAD CVS: RRR, S1 and S2 CHEST: Coarse BS b/l ABD: Soft, NT, + BS EXT: No c/c/ + edema Results/Medications Result Diagram: 09/18/16 0550 09/18/16 0550 Results 24 hrs Laboratory Tests Test 09/18/16 05:50 09/18/16 11:44 09/18/16 17:37 Anion Gap 15 Basophils # 0.0 Basophils % 0.3 Blood Morphology Comment Blood Urea Nitrogen 14 Calcium Level 8.5 Carbon Dioxide Level 25 Chloride Level 99 Creatinine 1.20 Eosinophils # 0.1 Eosinophils % 0.5 Glucose Level 115 Hematocrit 30.6 L Hemoglobin 9.8 L Lymphocytes # 1.8 Lymphocytes % 18.3 Mean Corpuscular Hemoglobin 26.3 L Mean Corpuscular Hemoglobin Concent 32.0 Mean Corpuscular Volume 82.4 Mean Platelet Volume 12.5 H Monocytes # 1.2 H Monocytes % 12.0 H Neutrophils # 7.0 Neutrophils % 68.9 Nucleated Red Blood Cells # 0.0 Nucleated Red Blood Cells % 0.0 Platelet Count 355 Potassium Level 5.0 Red Blood Count 3.71 L Red Cell Distribution Width 18.9 H Sodium Level 134 L White Blood Count 10.1 Bedside Glucose 111 Tobramycin Level Trough 5.2 *H Medications Current Medications Pantoprazole/ Sodium Chloride (Protonix Iv/NS) 100 ml @ 10 mls/hr Q10H IV Last administered on 09/18/16t 11:47; Admin Dose 10 MLS/HR; Start 09/01/16 at 21: 00 Collagenase (Santyl) 1 applic DAILY TOP Last administered on 09/18/16 09:00; Admin Dose 1 APPLIC; Start 09/02/16 at 11:30 Tobramycin (Tobramycin Iv Per Pharmacy) TOBRAMYCIN PER PHARMACY NOTE XX ; Start 09/06/16 at 12:30 Clotrimazole (Lotrimin Cr) 1 applic BID TOP Last administered on 09/18/16 17: 10; Admin Dose 1 APPLIC; Start 09/14/16 at 14:30 Mupirocin 1 applic 1 applic BID TOP Last administered on 09/18/16 17:11; Admin Dose 1 APPLIC; Start 09/14/16 at 21:00 Tobramycin/Sodium Chloride (Tobramycin/NS) 107.5 ml @ 103.75 mls/ hr Q48H IVPB Last administered on 09/18/16 17:11; Admin Dose 103.75 MLS/HR; Start at 18:00 Amiodarone HCl (Cordarone) 200 mg BID NGT Last administered on 09/18/16 08:50 ; Admin Dose 200 MG; Start 09/17/16 at 13:30 Hydralazine HCl (Apresoline) 10 mg Q4H PRN IV ELEVATED BLOOD PRESSURE Last administered on 09/17/16 16:11; Admin Dose 10 MG; Start 09/17/16 at 16:00 Metoclopramide HCl (Reglan) 5 mg Q6 IV Last administered on 09/18/16 17:11; Admin Dose 5 MG; Start 09/17/16 at 18:00 Metoprolol Tartrate 50 mg 50 mg BID PO Last administered on 09/18/16 08:50; Admin Dose 50 MG; Start 09/17/16 at 21:00 Potassium Chloride/Dextrose/ Sod Cl (D5-NS + KCl 20 Meq) 1,000 ml @ 50 mls/hr Q20H IV Last administered on 09/18/16 13:03; Admin Dose 50 MLS/HR; Start 09/17 at 17:30 Morphine Sulfate (morphine) 2 mg Q4H PRN IV PAIN LEVEL 7-10 Last administered on 09/18/16 11:54; Admin Dose 2 MG; Start 09/18/16 at 12:00 Assessment/Plan Additional Assessment/Plan IMP: 1. VDRF 2. Encephalopathy 3. s/p GIB 4. sepsis 5. Anemia RECS: 1. Vent support 2. BD's/CPT as needed. 3. TF/Free H20 ABAD CHAVEZ MD Sep 18, 2016 19:36
[2016-09-19] VITALS (40 sets, daily range): BP systolic 79–162; BP diastolic 61–111; PULSE 60–129; RESP 18–35
[2016-09-19] MEDS: METOCLOPRAMIDE 10 MG INJ IV SCH ×3 (05:09→19:47)
--- NOTE | 2016-09-19 07:07 | RADRPT ---
PROCEDURE: Chest. CLINICAL INDICATION: Shortness of breath. TECHNIQUE: Single frontal view of the chest was obtained. COMPARISON: 09/08/2016. FINDINGS: The patient is status post tracheostomy. The cardiac silhouette is within normal limits. The aorti c arch is unremarkable. There are scattered interstitial infiltrates bilaterally. There is no vasc ular congestion or pleural effusion. There is no pneumothorax. IMPRESSION: Bilateral scattered interstitial infiltrates, greater on the right, decreased compared with 09/08/19 17. .Sheldon Smith MD, MD Date Time Electronically viewed and signed by .Sheldon Smith MD, MD on 09/19/2016 07:06 .T/
[2016-09-19 07:44] LABS: AADO2 Arterial 534.9 mmHg (7.0-24.0); Allen Test ACCEPTAB; Arterial Base Excess -1.9 mmol/L (-3.0-3); Arterial COHb 0.3 % (0.0-3.0); Arterial Fraction of Oxyhgb 97.5 % (93.0-99.0); Arterial HCO3 23.2 mmol/L (22.0-26.0); Arterial MetHb 0.5 % (0.0-1.5); Arterial Total Hemglobin 10.8 g/dl (12.0-18.0); MODE VENT - AC
[2016-09-19] MEDS: PANTOPRAZOLE IV 80 MG in SOD CHLORIDE 0.9% 100 ML IV SCH ×2 (09:00→19:47)
[2016-09-19] MEDS: D5-NS + KCL 20 MEQ 1,000 ML IV SCH (09:30)
[2016-09-19] MEDS: COLLAGENASE 30 GM TUBE TOP SCH (10:00)
--- NOTE | 2016-09-19 10:51 | PN ---
Date/Time of Note Date/Time of Note DATE: 09/19/16 TIME: 10:50 Assessment/Plan VTE Prophylaxis VTE Prophylaxis Intervention: other Lines/Catheters IV Catheter Type (from Nrs): Peripheral IV Urinary Cath still in place: No Assessment/Plan Chief Complaint/Hosp Course - Dysphagia, s/p J-tube placement. Patient with high residual and emesis today. Continue Zofran as needed for nausea. Continue to monitor G-tube residual. Follow-up gastroenterology recommendation. 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 Continue Protonix. Dr. Pryor is following the patient in gastroenterology consultation. Continue IV fluids. - Anemia 2 to GI bleed, no indication for blood transfusion, monitor H&H. - Dehydration secondary to vomiting, resolved. - S/p sepsis with Staph bacteremia [address] Godfrey is following in ID consultation. Continue abx per ID. 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 - Ventilator-dependent respiratory failure with tracheostomy. Dr. Morrison is following from pulmonology standpoint. Continue bronchodilators and pulmonary toilet. - Chronic obstructive pulmonary disease. - Chronic Chaudhari catheter. - Colostomy - Hypertension, metoprolol and hydralazine as needed. - Bedbound status. - Acute kidney injury, resolved. - MRSA UTI , s/p treatment. - MRSA of nares. Continue Bactroban. - Intermittent atrial tachycardia. Dr. Broderick is is following in cardiology consultation, continue telemetry monitoring. Monitor electrolytes. Problems: Subjective 24 Hr Interval Summary Free Text/Dictation Patient is sedated and intubated. Patient was transfered to ICU for more aggressive treatment Exam/Review of Systems Vital Signs Vitals Vital Signs Date Time Temp Pulse Resp B/P Pulse Ox O2 Delivery O2 Flow Rate FiO2 09/19/16 08:00 127 09/19/16 04:53 97.5 32 162/87 100 09/19/16 04:38 30 Intake and Output 09/18/16 09/18/16 09/19/16 15:00 23:00 07:00 Intake Total 230 ml 200 ml Output Total 550 ml 400 ml Balance -320 ml -200 ml Exam Constitutional: well developed Head: atraumatic, normocephalic Respiratory: diminished breath sounds Cardiovascular: regular rate and rhythm Gastrointestinal: non-tender, soft Results Result Diagram: 09/18/16 0550 09/18/16 0550 Results 24 hrs Laboratory Tests Test 09/18/16 11:44 09/18/16 17:37 09/19/16 07:21 09/19/16 07:26 Bedside Glucose 111 137 Tobramycin Level Trough 5.2 *H Arterial Blood HCO3 23.2 Arterial Blood Base Excess -1.9 Arterial Blood Oxygen Saturation 98.3 Mane Test ACCEPTAB Arterial Blood Gas Puncture Site Right Radial Arterial Blood Carboxyhemoglobin 0.3 Arterial Blood Date Drawn 09/19/2016 7:35:48 AM Arterial Blood Methemoglobin 0.5 Arterial Blood pCO2 (Temp correct) 40.6 Arterial Blood pH (Temp corrected) 7.374 Arterial Blood pO2 (Temp corrected) 137.5 H Blood Gas A-a O2 Differential 534.9 H Blood Gas Actual Respiration Rate 16 Blood Gas Low PEEP Setting 12.0 Blood Gas Modality VENT - AC Blood Gas Notified Time 09/19/2016 7:44:07 AM Blood Gas Notified Whom CW Blood Gas Respiration Rate 16.0 Blood Gas Specimen Source Blood arterial Blood Gas Temperature 37.0 Blood Gas Tidal Volume 500.0 FiO2 100.0 Oxyhemoglobin Percent 97.5 Total Hemoglobin 10.8 L Medications Medications Current Medications Pantoprazole/ Sodium Chloride (Protonix Iv/NS) 100 ml @ 10 mls/hr Q10H IV Last administered on 09/18/16 23:53; Admin Dose 10 MLS/HR; Start 09/01/16 at 21: 00 Collagenase (Santyl) 1 applic DAILY TOP Last administered on 09/18/16 09:00; Admin Dose 1 APPLIC; Start 09/02/16 at 11:30 Tobramycin (Tobramycin Iv Per Pharmacy) TOBRAMYCIN PER PHARMACY NOTE XX ; Start 09/06/16 at 12:30 Clotrimazole (Lotrimin Cr) 1 applic BID TOP Last administered on 09/18/16 21: 48; Admin Dose 1 APPLIC; Start 09/14/16 at 14:30 Mupirocin 1 applic 1 applic BID TOP Last administered on 09/18/16 21:48; Admin Dose 1 APPLIC; Start 09/14/16 at 21:00 Tobramycin/Sodium Chloride (Tobramycin/NS) 107.5 ml @ 103.75 mls/ hr Q48H IVPB Last administered on 09/18/16 17:11; Admin Dose 103.75 MLS/HR; Start at 18:00 Amiodarone HCl (Cordarone) 200 mg BID NGT Last administered on 09/18/16 21:48 ; Admin Dose 200 MG; Start 09/17/16 at 13:30 Hydralazine HCl (Apresoline) 10 mg Q4H PRN IV ELEVATED BLOOD PRESSURE Last administered on 09/17/16 16:11; Admin Dose 10 MG; Start 09/17/16 at 16:00 Metoclopramide HCl (Reglan) 5 mg Q6 IV Last administered on 09/19/16 05:09; Admin Dose 5 MG; Start 09/17/16 at 18:00 Metoprolol Tartrate 50 mg 50 mg BID PO Last administered on 09/18/16 21:48; Admin Dose 50 MG; Start 09/17/16 at 21:00 Potassium Chloride/Dextrose/ Sod Cl (D5-NS + KCl 20 Meq) 1,000 ml @ 50 mls/hr Q20H IV Last administered on 09/18/16 13:03; Admin Dose 50 MLS/HR; Start 09/17 at 17:30 Morphine Sulfate (morphine) 2 mg Q4H PRN IV PAIN LEVEL 7-10 Last administered on 09/18/16 11:54; Admin Dose 2 MG; Start 09/18/16 at 12:00 OLI ZUNIGA Sep 19, 2016 10:51
[2016-09-19] MEDS: AMIODARONE 200 MG TAB NGT SCH ×2 (10:57→21:44)
[2016-09-19] MEDS: METOPROLOL 50 MG TAB PO SCH ×2 (10:57→21:00)
[2016-09-19] MEDS: CLOTRIMAZOLE 1% 30 GM CR TOP SCH ×2 (10:58→21:47)
[2016-09-19] MEDS: MUPIROCIN 2% 22 GM OINT TOP SCH ×2 (10:58→21:47)
--- NOTE | 2016-09-19 13:26 | CONS ---
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 the wound culture grew carbapenemase producing kleb, enterococci and pseudo - leakage of gastric contents from GT site, now has ostomy bag - dysphagia s/p EGD and new G tube placement 09/15/2016 - infection of wound of RLE due to pseudomonas. 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 We recommend covering MRSA, and bacteria in the abdominal wound and RLE wound as much as possible - continue IV tobramycin (09/06/2016-) for pseudomonas, planned through 09/20/2016 - continue topical antimicrobials - Monitor for clinical signs of aspiration - Sage Cx for temp >100.4 d/w RN, traffic coordinator, and Dr Godfrey Critical care time: 13:30-14:00 Consultation Date/Type/Reason Admit Date/Time Aug 31, 2016 at 14:59 Initial Consult Date 09/02/16 Type of Consultation: ID Referring Provider: MARIO ROWE 24 HR Interval Summary Free Text/Dictation Tx to ICU early AM d/t high gastric residuals and emesis. AT to Ventricular rate of 120. O2 sats 100% on 60 % FiO2 Subjective hx not possible: pt non-verbal Constitutional: diaphoresis, disoriented, other (Vent support), requiring IVF , requiring O2 Exam/Review of Systems Vital Signs Vitals Vital Signs Date Time Temp Pulse Resp B/P Pulse Ox O2 Delivery O2 Flow Rate FiO2 09/19/16 12:00 113 09/19/16 04:53 97.5 32 162/87 100 09/19/16 04:38 30 Intake and Output 09/18/16 09/18/16 09/19/16 15:00 23:00 07:00 Intake Total 230 ml 200 ml Output Total 550 ml 400 ml Balance -320 ml -200 ml Exam Constitutional: frail, non-verbal Psych: other (obtunded/encephalopathic) Eyes: nl lids ENMT: intubated Neck: other (trach; CDI, good seal) Respiratory: diminished breath sounds, other (coarse) Cardiovascular: other (AT) Gastrointestinal: bowel sounds, non-tender, other (PEG: continues to leak), soft Genitourinary - Male: other (vincent) Musculoskeletal: muscle weakness Neurological: unresponsive Skin: other (rash better) Results Result Diagram: 09/18/16 0550 09/18/16 0550 Results 24 hrs Laboratory Tests Test 09/18/16 17:37 09/19/16 07:21 09/19/16 07:26 Tobramycin Level Trough 5.2 *H Bedside Glucose 137 Arterial Blood HCO3 23.2 Arterial Blood Base Excess -1.9 Arterial Blood Oxygen Saturation 98.3 Mane Test ACCEPTAB Arterial Blood Gas Puncture Site Right Radial Arterial Blood Carboxyhemoglobin 0.3 Arterial Blood Date Drawn 09/19/2016 7:35:48 AM Arterial Blood Methemoglobin 0.5 Arterial Blood pCO2 (Temp correct) 40.6 Arterial Blood pH (Temp corrected) 7.374 Arterial Blood pO2 (Temp corrected) 137.5 H Blood Gas A-a O2 Differential 534.9 H Blood Gas Actual Respiration Rate 16 Blood Gas Low PEEP Setting 12.0 Blood Gas Modality VENT - AC Blood Gas Notified Time 09/19/2016 7:44:07 AM Blood Gas Notified Whom CW Blood Gas Respiration Rate 16.0 Blood Gas Specimen Source Blood arterial Blood Gas Temperature 37.0 Blood Gas Tidal Volume 500.0 FiO2 100.0 Oxyhemoglobin Percent 97.5 Total Hemoglobin 10.8 L Medications Medications Current Medications Pantoprazole/ Sodium Chloride (Protonix Iv/NS) 100 ml @ 10 mls/hr Q10H IV Last administered on 09/19/16 09:00; Admin Dose 10 MLS/HR; Start 09/01/16 at 21: 00 Collagenase (Santyl) 1 applic DAILY TOP Last administered on 09/19/16 10:00; Admin Dose 1 APPLIC; Start 09/02/16 at 11:30 Tobramycin (Tobramycin Iv Per Pharmacy) TOBRAMYCIN PER PHARMACY NOTE XX ; Start 09/06/16 at 12:30 Clotrimazole (Lotrimin Cr) 1 applic BID TOP Last administered on 09/19/16 10: 58; Admin Dose 1 APPLIC; Start 09/14/16 at 14:30 Mupirocin 1 applic 1 applic BID TOP Last administered on 09/19/16 10:58; Admin Dose 1 APPLIC; Start 09/14/16 at 21:00 Tobramycin/Sodium Chloride (Tobramycin/NS) 107.5 ml @ 103.75 mls/ hr Q48H IVPB Last administered on 09/18/16 17:11; Admin Dose 103.75 MLS/HR; Start at 18:00 Amiodarone HCl (Cordarone) 200 mg BID NGT Last administered on 09/19/16 10:57 ; Admin Dose 200 MG; Start 09/17/16 at 13:30 Hydralazine HCl (Apresoline) 10 mg Q4H PRN IV ELEVATED BLOOD PRESSURE Last administered on 09/17/16 16:11; Admin Dose 10 MG; Start 09/17/16 at 16:00 Metoclopramide HCl (Reglan) 5 mg Q6 IV Last administered on 09/19/16 05:09; Admin Dose 5 MG; Start 09/17/16 at 18:00 Metoprolol Tartrate 50 mg 50 mg BID PO Last administered on 09/19/16 10:57; Admin Dose 50 MG; Start 09/17/16 at 21:00 Potassium Chloride/Dextrose/ Sod Cl (D5-NS + KCl 20 Meq) 1,000 ml @ 50 mls/hr Q20H IV Last administered on 09/18/16 13:03; Admin Dose 50 MLS/HR; Start 09/17 at 17:30 Morphine Sulfate (morphine) 2 mg Q4H PRN IV PAIN LEVEL 7-10 Last administered on 09/18/16 11:54; Admin Dose 2 MG; Start 09/18/16 at 12:00 LIZZY GODFREY M.D. 09/20/16 0228: Assessment/Plan Assessment/Plan Additional Assessment/Plan Bekah attestation: I discussed the management with TERESSA Dickens and agree with above. Exam/Review of Systems Results Result Diagram: 09/18/16 0550 09/18/16 0550 RONNIE DICKENS Sep 19, 2016 13:26 LIZZY GODFREY M.D. Sep 20, 2016 02:28
--- NOTE | 2016-09-19 16:02 | CONS ---
Date/Time of Note Date/Time of Note DATE: 09/19/16 TIME: 15:58 Consult Date/Type/Reason Admit Date/Time Aug 31, 2016 at 14:59 Initial Consult Date 09/02/16 Type of Consultation: Pulm Ordering Provider: MARIO ROWE transferred to the ICU for development of notable increased residuals and tube feeds aspirated into the trach. Now on 80% FiO2. Objective Vital Signs Date Time Temp Pulse Resp B/P Pulse Ox O2 Delivery O2 Flow Rate FiO2 09/19/16 15:00 91 29 107/83 100 09/19/16 12:00 97.5 09/19/16 04:38 30 Intake and Output 09/18/16 09/18/16 09/19/16 15:00 23:00 07:00 Intake Total 230 ml 200 ml Output Total 550 ml 400 ml Balance -320 ml -200 ml HEENT: Neck supple; no JVD; no LAD; trach site clean CVS: RRR, S1 and S2 CHEST: Coarse BS b/l ABD: Soft, NT, + BS EXT: No c/c/ + edema/ contracted Results/Medications Result Diagram: 09/18/16 0550 09/18/16 0550 Results 24 hrs Laboratory Tests Test 09/18/16 17:37 09/19/16 07:21 09/19/16 07:26 Tobramycin Level Trough 5.2 *H Bedside Glucose 137 Arterial Blood HCO3 23.2 Arterial Blood Base Excess -1.9 Arterial Blood Oxygen Saturation 98.3 Mane Test ACCEPTAB Arterial Blood Gas Puncture Site Right Radial Arterial Blood Carboxyhemoglobin 0.3 Arterial Blood Date Drawn 09/19/2016 7:35:48 AM Arterial Blood Methemoglobin 0.5 Arterial Blood pCO2 (Temp correct) 40.6 Arterial Blood pH (Temp corrected) 7.374 Arterial Blood pO2 (Temp corrected) 137.5 H Blood Gas A-a O2 Differential 534.9 H Blood Gas Actual Respiration Rate 16 Blood Gas Low PEEP Setting 12.0 Blood Gas Modality VENT - AC Blood Gas Notified Time 09/19/2016 7:44:07 AM Blood Gas Notified Whom CW Blood Gas Respiration Rate 16.0 Blood Gas Specimen Source Blood arterial Blood Gas Temperature 37.0 Blood Gas Tidal Volume 500.0 FiO2 100.0 Oxyhemoglobin Percent 97.5 Total Hemoglobin 10.8 L Medications Current Medications Pantoprazole/ Sodium Chloride (Protonix Iv/NS) 100 ml @ 10 mls/hr Q10H IV Last administered on 09/19/16 09:00; Admin Dose 10 MLS/HR; Start 09/01/16 at 21: 00 Collagenase (Santyl) 1 applic DAILY TOP Last administered on 09/19/16 10:00; Admin Dose 1 APPLIC; Start 09/02/16 at 11:30 Tobramycin (Tobramycin Iv Per Pharmacy) TOBRAMYCIN PER PHARMACY NOTE XX ; Start 09/06/16 at 12:30 Clotrimazole (Lotrimin Cr) 1 applic BID TOP Last administered on 09/19/16 10: 58; Admin Dose 1 APPLIC; Start 09/14/16 at 14:30 Mupirocin 1 applic 1 applic BID TOP Last administered on 09/19/16 10:58; Admin Dose 1 APPLIC; Start 09/14/16 at 21:00 Tobramycin/Sodium Chloride (Tobramycin/NS) 107.5 ml @ 103.75 mls/ hr Q48H IVPB Last administered on 09/18/16 17:11; Admin Dose 103.75 MLS/HR; Start at 18:00 Amiodarone HCl (Cordarone) 200 mg BID NGT Last administered on 09/19/16 10:57 ; Admin Dose 200 MG; Start 09/17/16 at 13:30 Hydralazine HCl (Apresoline) 10 mg Q4H PRN IV ELEVATED BLOOD PRESSURE Last administered on 09/17/16 16:11; Admin Dose 10 MG; Start 09/17/16 at 16:00 Metoclopramide HCl (Reglan) 5 mg Q6 IV Last administered on 09/19/16 13:15; Admin Dose 5 MG; Start 09/17/16 at 18:00 Metoprolol Tartrate 50 mg 50 mg BID PO Last administered on 09/19/16 10:57; Admin Dose 50 MG; Start 09/17/16 at 21:00 Potassium Chloride/Dextrose/ Sod Cl (D5-NS + KCl 20 Meq) 1,000 ml @ 50 mls/hr Q20H IV Last administered on 09/18/16 13:03; Admin Dose 50 MLS/HR; Start 09/17 at 17:30 Morphine Sulfate (morphine) 2 mg Q4H PRN IV PAIN LEVEL 7-10 Last administered on 09/18/16t 11:54; Admin Dose 2 MG; Start 09/18/16 at 12:00 Assessment/Plan Additional Assessment/Plan IMP: 1. Acute on chronic respiratory failure--likely due to central airway obstruction from aspirated tube feeds--already improved. CXR is improved compared to 10 days prior. 2. Encephalopathy 3. s/p GIB 4. sepsis 5. Anemia 6. High residuals RECS: 1. Vent support--> lower PEEP 10 cm H20; reduce FiO2 to 60% 2. Am CXR/ABG 3. Hold TF's/G-tube to gravity 4. Obtain KUB 5. Abx per ID 6. Goals of care discussion/family meeting/palliative eval 35 min cc time ABAD CHAVEZ MD Sep 19, 2016 16:02
[2016-09-19] MEDS ORDERED: NORepinephrine 8MG/250 ML (PMX 250 ML IV SCH (18:30)
--- NOTE | 2016-09-19 18:40 | CONS ---
DATE OF ADMISSION: 08/31/2016 DATE OF CONSULTATION: HISTORY OF PRESENT ILLNESS: The patient transferred to the intensive care unit because he vomited a lot of gastric contents. He had respiratory difficulty and because of that, he was transferred to the ICU. Upon entering into the ICU, the G-tube suction showed evidence of several hundred mL of fl uid. Although the patient is already intubated, he seems to be alert at this time, although to a gr eat extent he is lethargic. VITAL SIGNS: Pulse is 91, blood pressure 107/83, respiration is 26. ABDOMEN: Examination of the abdomen showed a G-tube in the right place. LABORATORY WORKUP: WBC count 10,100, hemoglobin 9.8, potassium is 5.0, sodium 134. The KUB is orde red and results are pending. CLINICAL IMPRESSION: Probably patient has gastroparesis, resulting in gastric residual, and patient was given Reglan prior to the incident. In spite of that, the patient was not able to empty the stomach. PLAN: At this time, the nasogastric tube will be able to be put in to measure the gastric contents. KUB will be performed with Gastrografin through the G-tube to see if the G-tube is in the proper l ocation. The patient will be followed. Meanwhile, continue supportive therapy. Dictated By: KATELYN FERRARI/MACK Conf#: [id number] DID#: [id number]
--- NOTE | 2016-09-19 19:15 | RADRPT ---
PROCEDURE: XR Abdomen. CLINICAL INDICATION: Increased residual TECHNIQUE: AP portable supine abdomen x-rays. COMPARISON: 09/08/2016 FINDINGS: The previously seen nasogastric tube has been removed. The bowel gas pattern is normal. There is no evidence of obstruction. No visceromegaly, soft tissue mass or pathologic calcification is demonstr ated. Scoliosis convex to the right is again seen. There is no evidence of acute osseous abnormality. A Chaudhari catheter is noted RPTAT:HJJR IMPRESSION: Unremarkable abdomen radiograph, interval nasogastric tube removal compared to 09/08/2016. Physician Carlos Date Time Electronically viewed and signed by Physician Carlos on 09/19/2016 19:15 JR/
--- NOTE | 2016-09-19 19:53 | RADRPT ---
PROCEDURE: XR Abdomen. CLINICAL INDICATION: Gastrostomy tube check TECHNIQUE: Portable supine AP upper abdomen x-ray after the injection of contrast through the eyad rostomy tube. COMPARISON: 09/19/2016 FINDINGS: Contrast media is seen within the gastrostomy tube and the gastric lumen as well as within a square shaped area over the left upper quadrant likely cause on the patient's skin. There is no evidence o f extraluminal contrast otherwise to suggest malpositioning There is no evidence of obstruction. No visceromegaly, soft tissue mass or pathologic calcification is demonstrated. The osseous structures are unremarkable. RPTAT:HJJR IMPRESSION: Injected gastrostomy tube demonstrates opacification of the gastric fundus and body, the tube theref ore in satisfactory position. Physician Carlos Date Time Electronically viewed and signed by Physician Carlos on 09/19/2016 19:53 JR/
--- NOTE | 2016-09-19 21:17 | RADRPT ---
PROCEDURE: XR Chest. CLINICAL INDICATION: NG tube placement TECHNIQUE: AP views of the chest COMPARISON: 09/19/2016 FINDINGS: The cardiomediastinal silhouette is within normal limits of size . Hyperexpansion compatible with CO PD. NG tube tip coiled within the fundus of the stomach. Left pigtail drainage catheter overlies t he left upper quadrant below the left diaphragm. . Persistent patchy bilateral air space disease gr eater on the right with elevation of the right hemidiaphragm. Tracheostomy tube in place. No pneu mothorax. The osseous structures and soft tissues are unremarkable. IMPRESSION: 1. NG tube tip coiled within the region of the stomach fundus. 2. Left upper quadrant pigtail drainage catheter in place. 3. Stable bilateral patchy air space disease greater on the right with chronic elevation of the rig ht hemidiaphragm. RPTAT:AAJJ Physician Petey Date Time Electronically viewed and signed by Physician Petey on 09/19/2016 21:16 TESSY/
--- NOTE | 2016-09-19 21:50 | RADRPT ---
Vent Rate: 121 bpm RR Interval: 0 msec NM Interval: 190 msec QRS Duration: 78 msec QT Interval: 300 msec QTC Interval: 426 msec P-R-T Bude: 82 - 63 - 117 degrees Sinus tachycardia Right atrial enlargement T wave abnormality, consider inferolateral ischemia Abnormal ECG Electronically Signed By: Maynor Broderick [id number]
[2016-09-20] VITALS (52 sets, daily range): BP systolic 86–163; BP diastolic 56–113; PULSE 57–113; RESP 16–38
[2016-09-20] MEDS: METOCLOPRAMIDE 10 MG INJ IV SCH ×4 (00:04→18:47)
[2016-09-20] MEDS: morphine 2 MG INJ IV PRN ×2 (02:56→22:00)
[2016-09-20 05:06] LABS: AADO2 Arterial 303.3 mmHg (7.0-24.0); Allen Test ACCEPTAB; Arterial Base Excess -2.9 mmol/L (-3.0-3); Arterial COHb 0.1 % (0.0-3.0); Arterial Fraction of Oxyhgb 95.9 % (93.0-99.0); Arterial HCO3 20.6 mmol/L (22.0-26.0); Arterial MetHb 0.7 % (0.0-1.5); MODE VENT-AC
[2016-09-20] MEDS: PANTOPRAZOLE IV 80 MG in SOD CHLORIDE 0.9% 100 ML IV SCH (05:47)
[2016-09-20] MEDS: D5-NS + KCL 20 MEQ 1,000 ML IV SCH (06:40)
[2016-09-20 07:09] LABS: HEMATOCRIT 25.7 % (42.0-52.0); HEMOGLOBIN 8.4 g/dl (14.0-18.0); MEAN CORPUSCULAR HEMOGLOBIN 26.6 pg (29.0-33.0); MEAN CORPUSCULAR HGB CONC 32.7 g/dl (32.0-37.0); MEAN CORPUSCULAR VOLUME 81.3 fl (82.0-101.0); MEAN PLATELET VOLUME 11.6 fl (7.4-10.4); PLATELET COUNT 292 10^3/UL (140-440); RED BLOOD COUNT 3.16 10^6/ul (4.70-6.10); RED CELL DISTRIBUTION WIDTH 17.9 % (11.5-14.5); UNCORRECTED WBC 21.2 10^3/ul (4.8-10.8); WHITE BLOOD COUNT 21.2 10^3/ul (4.8-10.8)
[2016-09-20 07:17] LABS: ALBUMIN 2.5 g/dl (3.3-4.9); POTASSIUM 4.8 mmol/L (3.5-5.1)
--- NOTE | 2016-09-20 07:18 | RADRPT ---
PROCEDURE: XR Chest. CLINICAL INDICATION: Respiratory failure TECHNIQUE: 2 AP views of the chest were obtained COMPARISON: Chest x-ray dated 09/19/2016 FINDINGS: A tracheostomy tube is in place. The tip of the enteric tube is within the gastric lumen. There is a pigtail catheter along the medial left diaphragm. The lungs are hyperinflated with coarsening of the interstitial markings patchy right lung interstit ial opacities. There are small bilateral pleural effusions. No pneumothorax is seen. The cardiome diastinal silhouette is within normal limits for size. Calcifications are seen within the aortic arc h. The osseous structures demonstrate senescent changes. IMPRESSION: 1. Hyperinflation of the lungs with chronic-appearing interstitial changes. There are patchy right lung interstitial opacities which may reflect superimposed interstitial edema or pneumonia. Overal l, no significant interval change. 2. Probable small bilateral pleural effusions. 3. Aortic atherosclerosis. 4. Tubes and lines, as described above. RPTAT: .Malena Irwin MD, MD Date Time Electronically viewed and signed by .Malena Irwin MD, on 09/20/2016 07:17 .G/
[2016-09-20 07:19] LABS: CREATININE 2.23 mg/dl (0.61-1.24)
[2016-09-20 07:20] LABS: ALBUMIN/GLOBULIN RATIO 0.75; BILIRUBIN,INDIRECT 0.2 mg/dl (0-1.1); BILIRUBIN,TOTAL 0.2 mg/dl (0.2-1.3); CALCIUM 8.4 mg/dl (8.4-10.2); TOTAL PROTEIN 5.8 g/dl (6.1-8.1)
[2016-09-20 07:30] LABS: CONDITION 1; LH ANALYZER COMMENTS 1; SUSPECT 1
[2016-09-20] MEDS ORDERED: VANCOMYCIN IV PER PHARMACY XX SCH (08:30)
--- NOTE | 2016-09-20 08:36 | CONS ---
Date/Time of Note Date/Time of Note DATE: 09/20/16 TIME: 08:30 Assessment/Plan Assessment/Plan Additional Assessment/Plan Ventilator settings; AC of 24, tidal volume of 500, PEEP of 10, 60% FiO2. Assessment recommendations; 1. Patient with chronic respiratory failure due to severe anoxic encephalopathy ventilator dependent. 2. Aspiration pneumonia mostly in the right lung. Chest x-ray was reviewed from today which is showing slight improvement compared to yesterday. However there is significant increase in leukocytosis. Patient still requiring high FiO2. 3. Status post colostomy in the remote past. 4. J-tube replacement recently however there is some leakage around the J-tube and patient also cannot be fed and is having significant aspirate. 5. Worsening renal insufficiency. Ventilator settings have been adjusted, and assist-control rate has been brought down to 16, at this time I would recommend adding vancomycin and Zosyn to be adjusted for renal insufficiency. Patient also is being given 1 L normal saline fluid bolus followed by increasing IV rate 150 mL/h. Because of issues regarding J-tube feeding patient will be started on TPN after PICC line placement. SoluMedrol 40 mg every 6 hours to be added for at least 48 hours. Follow-up chest x-ray to be done in 48 hours. Prognosis remains poor. Consultation Date/Type/Reason Admit Date/Time Aug 31, 2016 at 14:59 Initial Consult Date 09/01/16 Type of Consultation: Pulmonary/critical care Referring Provider: MARIO ROWE 24 HR Interval Summary Free Text/Dictation Patient condition is stable now patient is off pressor support. Apparently aspirated on the telemetry unit resulting in pneumonia. Because of severe underlying anoxic encephalopathy patient is unable to give any history whatsoever and remains ventilator dependent. Elderly male, on ventilator via tracheostomy unresponsive and currently in no distress. Exam/Review of Systems Vital Signs Vitals Vital Signs Date Time Temp Pulse Resp B/P Pulse Ox O2 Delivery O2 Flow Rate FiO2 09/20/16 07:30 60 09/20/16 07:30 98.4 82 24 110/80 100 09/20/16 07:00 Mechanical Ventilator Intake and Output 09/19/16 09/19/16 09/20/16 15:00 23:00 07:00 Intake Total 0 ml 940 ml 470 ml Output Total 60 ml 40 ml 750 ml Balance -60 ml 900 ml -280 ml Exam H EENT examination; supple neck, tracheostomy in place with clean insertion site. Patient is edentulous. There was a small bilaterally. No neck masses. No lymphadenopathy. Chest examination; diminished breath sounds bilaterally. S1-S2 audible, no murmurs regular rhythm. Abdomen examination; soft, nondistended. G-tube in place. Colostomy in place. Bowel sounds are very sluggish. Extremity examination; no peripheral edema. ORBITREAD OPERATOR examination; patient remains unresponsive. Results Result Diagram: 09/20/16 0600 09/20/16 0600 Results 24 hrs Laboratory Tests Test 09/20/16 05:00 09/20/16 06:00 Arterial Blood HCO3 20.6 L Arterial Blood Base Excess -2.9 Arterial Blood Oxygen Saturation 96.7 Mane Test ACCEPTAB Arterial Blood Gas Puncture Site Left Radial Arterial Blood Carboxyhemoglobin 0.1 Arterial Blood Date Drawn 09/20/2016 4:55:36 AM Arterial Blood Methemoglobin 0.7 Arterial Blood pCO2 (Temp correct) 30.7 L Arterial Blood pH (Temp corrected) 7.444 Arterial Blood pO2 (Temp corrected) 90.7 H Blood Gas A-a O2 Differential 303.3 H Blood Gas Actual Respiration Rate 24 Blood Gas Inspiratory Pressure 27.0 Blood Gas Low PEEP Setting 10.0 Blood Gas Modality VENT-AC Blood Gas Notified Time 09/20/2016 5:06:11 AM Blood Gas Notified Whom JMD Blood Gas Respiration Rate 24.0 Blood Gas Specimen Source Blood arterial Blood Gas Temperature 37.0 Blood Gas Tidal Volume 600.0 FiO2 60.0 Oxyhemoglobin Percent 95.9 Total Hemoglobin 9.0 L Alanine Aminotransferase (ALT/SGPT) 14 Albumin 2.5 L Albumin/Globulin Ratio 0.75 Alkaline Phosphatase 75 Anion Gap 15 Aspartate Amino Transf (AST/SGOT) 15 Blood Morphology Comment Blood Urea Nitrogen 28 H Calcium Level 8.4 Carbon Dioxide Level 26 Chloride Level 106 Creatinine 2.23 H Direct Bilirubin 0.00 Globulin 3.30 H Glucose Level 134 Hematocrit 25.7 L Hemoglobin 8.4 L Indirect Bilirubin 0.2 Lactic Acid Level 1.6 Mean Corpuscular Hemoglobin 26.6 L Mean Corpuscular Hemoglobin Concent 32.7 Mean Corpuscular Volume 81.3 L Mean Platelet Volume 11.6 H Nucleated Red Blood Cells # Nucleated Red Blood Cells % Platelet Count 292 Potassium Level 4.8 Red Blood Count 3.16 L Red Cell Distribution Width 17.9 H Sodium Level 142 Total Bilirubin 0.2 Total Protein 5.8 L White Blood Count 21.2 #H Medications Medications Current Medications Pantoprazole/ Sodium Chloride (Protonix Iv/NS) 100 ml @ 10 mls/hr Q10H IV Last administered on 09/20/16 05:47; Admin Dose 10 MLS/HR; Start 09/01/16 at 21: 00 Collagenase (Santyl) 1 applic DAILY TOP Last administered on 09/19/16 10:00; Admin Dose 1 APPLIC; Start 09/02/16 at 11:30 Tobramycin (Tobramycin Iv Per Pharmacy) TOBRAMYCIN PER PHARMACY NOTE XX ; Start 09/06/16 at 12:30 Clotrimazole (Lotrimin Cr) 1 applic BID TOP Last administered on 09/19/16 21: 47; Admin Dose 1 APPLIC; Start 09/14/16 at 14:30 Mupirocin 1 applic 1 applic BID TOP Last administered on 09/19/16 21:47; Admin Dose 1 APPLIC; Start 09/14/16 at 21:00 Tobramycin/Sodium Chloride (Tobramycin/NS) 107.5 ml @ 103.75 mls/ hr Q48H IVPB Last administered on 09/18/16 17:11; Admin Dose 103.75 MLS/HR; Start at 18:00 Amiodarone HCl (Cordarone) 200 mg BID NGT Last administered on 09/19/16 21:44 ; Admin Dose 200 MG; Start 09/17/16 at 13:30 Hydralazine HCl (Apresoline) 10 mg Q4H PRN IV ELEVATED BLOOD PRESSURE Last administered on 09/17/16 16:11; Admin Dose 10 MG; Start 09/17/16 at 16:00 Metoclopramide HCl (Reglan) 5 mg Q6 IV Last administered on 09/20/16 05:47; Admin Dose 5 MG; Start 09/17/16 at 18:00 Metoprolol Tartrate 50 mg 50 mg BID PO Last administered on 09/19/16 10:57; Admin Dose 50 MG; Start 09/17/16 at 21:00 Potassium Chloride/Dextrose/ Sod Cl (D5-NS + KCl 20 Meq) 1,000 ml @ 50 mls/hr Q20H IV Last administered on 09/20/16 06:40; Admin Dose 50 MLS/HR; Start 09/17 at 17:30 Morphine Sulfate 2 mg 2 mg Q4H PRN IV PAIN LEVEL 7-10 Last administered on 09/20 02:56; Admin Dose 2 MG; Start 09/18/16 at 12:00 Norepinephrine (Levophed) 250 ml @ 1.875 mls/ hr TITRATE IV ; Start 09/19/16 at 18:30 SHAAN BUTT Sep 20, 2016 08:36
[2016-09-20] MEDS: COLLAGENASE 30 GM TUBE TOP SCH (09:00)
[2016-09-20] MEDS: AMIODARONE 200 MG TAB NGT SCH ×2 (09:56→21:58)
[2016-09-20] MEDS: METOPROLOL 50 MG TAB PO SCH (09:57)
[2016-09-20] MEDS: MUPIROCIN 2% 22 GM OINT TOP SCH ×2 (09:57→20:47)
[2016-09-20] MEDS: CLOTRIMAZOLE 1% 30 GM CR TOP SCH ×2 (09:58→20:47)
[2016-09-20] MEDS: PIPER-TAZO 2.25 GM (PMX) 50 ML IVPB SCH ×3 (10:08→22:08)
[2016-09-20] MEDS ORDERED: SOD CHLORIDE 0.9% 1,000 ML IV ONE (10:30)
[2016-09-20] MEDS ORDERED: VANCOMYCIN 1.25 GM in SOD CHLORIDE 0.9% 250 ML IVPB SCH (10:30)
--- NOTE | 2016-09-20 10:44 | CONS ---
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 the wound culture grew carbapenemase producing kleb, enterococci and pseudo - leakage of gastric contents from GT site, now has ostomy bag - resolved - dysphagia s/p EGD and new G tube placement 09/15/2016 - infection of wound of RLE due to pseudomonas. 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 Salas; continue for now. Check stat blood cx and respiratory cx. - Pt has multiple MDR organisms and it is impossible to cover all. We recommend covering MRSA, and bacteria in the abdominal wound and RLE wound as much as possible - Continue IV tobramycin (09/06/2016-) for pseudomonas - Check procalcitonin - Trend WBC and renal fxn - Continue topical antimicrobials (Clotrimazole and Bactroban) to BLE rash; keep area clean and dry; consider dermasmooth; consider Dermatology consult - [facility] for temp >100.4 - Consider Palliative Eval - Plan d/w [employer] OCCUPATIONAL THERAPIST - Above d/w Dr. Godfrey - Critical care time spent; 45 minutes Problems: Consultation Date/Type/Reason Admit Date/Time Aug 31, 2016 at 14:59 Initial Consult Date 09/02/16 Type of Consultation: Infectious Disease Referring Provider: MARIO ROWE 24 HR Interval Summary Free Text/Dictation Pt remains afebrile with stable BP and has not required vasopressor support while in ICU; no recent BM documented; plan for initiation of TPN after PICC placement per RN Quin. Empiric Vanco, Zosyn and Solumedrol added this AM by Dr. Salas. Pt remains non-communicative. Exam/Review of Systems Vital Signs Vitals Vital Signs Date Time Temp Pulse Resp B/P Pulse Ox O2 Delivery O2 Flow Rate FiO2 09/20/16 09:00 81 20 100 60 09/20/16 07:30 98.4 110/80 09/20/16 07:00 Mechanical Ventilator Intake and Output 09/19/16 09/19/16 09/20/16 15:00 23:00 07:00 Intake Total 0 ml 940 ml 470 ml Output Total 60 ml 40 ml 750 ml Balance -60 ml 900 ml -280 ml Exam Constitutional: frail, other (non-communicative; chronically debilitated, cachectic ) Head: atraumatic, normocephalic, other (temporal wasting noted) Neck: other (trach midline) Respiratory: Diminished breath sounds. No wheezing. Cardiovascular: nl pulses, regular rate and rhythm Gastrointestinal: bowel sounds, other (colostomy intact - stoma pink/no stool; NGT clamped and intact; G tube intact with dressing saturated with greenish drainage), soft Genitourinary - Male: other (vincent cath intact with small amount carla urine with sediments) Musculoskeletal: muscle weakness Extremities: normal pulses, other (bilateral foot drop noted), trace edema R>L , contracted No clubbing, No cyanosis Neurological: unresponsive Skin: other (RLE posterior lateral dressing c/d/i); scattered papule rash to BLE medially, R>L has improved Results Result Diagram: 09/20/16 0600 09/20/16 0600 Results 24 hrs Laboratory Tests Test 09/20/16 05:00 09/20/16 06:00 Arterial Blood HCO3 20.6 L Arterial Blood Base Excess -2.9 Arterial Blood Oxygen Saturation 96.7 Mane Test ACCEPTAB Arterial Blood Gas Puncture Site Left Radial Arterial Blood Carboxyhemoglobin 0.1 Arterial Blood Date Drawn 09/20/2016 4:55:36 AM Arterial Blood Methemoglobin 0.7 Arterial Blood pCO2 (Temp correct) 30.7 L Arterial Blood pH (Temp corrected) 7.444 Arterial Blood pO2 (Temp corrected) 90.7 H Blood Gas A-a O2 Differential 303.3 H Blood Gas Actual Respiration Rate 24 Blood Gas Inspiratory Pressure 27.0 Blood Gas Low PEEP Setting 10.0 Blood Gas Modality VENT-AC Blood Gas Notified Time 09/20/2016 5:06:11 AM Blood Gas Notified Whom JMD Blood Gas Respiration Rate 24.0 Blood Gas Specimen Source Blood arterial Blood Gas Temperature 37.0 Blood Gas Tidal Volume 600.0 FiO2 60.0 Oxyhemoglobin Percent 95.9 Total Hemoglobin 9.0 L Alanine Aminotransferase (ALT/SGPT) 14 Albumin 2.5 L Albumin/Globulin Ratio 0.75 Alkaline Phosphatase 75 Anion Gap 15 Aspartate Amino Transf (AST/SGOT) 15 Blood Morphology Comment Blood Urea Nitrogen 28 H Calcium Level 8.4 Carbon Dioxide Level 26 Chloride Level 106 Creatinine 2.23 H Direct Bilirubin 0.00 Globulin 3.30 H Glucose Level 134 Hematocrit 25.7 L Hemoglobin 8.4 L Indirect Bilirubin 0.2 Lactic Acid Level 1.6 Mean Corpuscular Hemoglobin 26.6 L Mean Corpuscular Hemoglobin Concent 32.7 Mean Corpuscular Volume 81.3 L Mean Platelet Volume 11.6 H Nucleated Red Blood Cells # Nucleated Red Blood Cells % Platelet Count 292 Potassium Level 4.8 Red Blood Count 3.16 L Red Cell Distribution Width 17.9 H Sodium Level 142 Total Bilirubin 0.2 Total Protein 5.8 L White Blood Count 21.2 #H Medications Medications Current Medications Pantoprazole/ Sodium Chloride (Protonix Iv/NS) 100 ml @ 10 mls/hr Q10H IV Last administered on 09/20/16t 05:47; Admin Dose 10 MLS/HR; Start 09/01/16 at 21: 00 Collagenase (Santyl) 1 applic DAILY TOP Last administered on 09/19/16 10:00; Admin Dose 1 APPLIC; Start 09/02/16 at 11:30 Tobramycin (Tobramycin Iv Per Pharmacy) TOBRAMYCIN PER PHARMACY NOTE XX ; Start 09/06/16 at 12:30 Clotrimazole (Lotrimin Cr) 1 applic BID TOP Last administered on 09/20/16 09: 58; Admin Dose 1 APPLIC; Start 09/14/16 at 14:30 Mupirocin 1 applic 1 applic BID TOP Last administered on 09/20/16 09:57; Admin Dose 1 APPLIC; Start 09/14/16 at 21:00 Tobramycin/Sodium Chloride (Tobramycin/NS) 107.5 ml @ 103.75 mls/ hr Q48H IVPB Last administered on 09/18/16 17:11; Admin Dose 103.75 MLS/HR; Start at 18:00 Amiodarone HCl (Cordarone) 200 mg BID NGT Last administered on 09/20/16 09:56 ; Admin Dose 200 MG; Start 09/17/16 at 13:30 Hydralazine HCl (Apresoline) 10 mg Q4H PRN IV ELEVATED BLOOD PRESSURE Last administered on 09/17/16 16:11; Admin Dose 10 MG; Start 09/17/16 at 16:00 Metoclopramide HCl (Reglan) 5 mg Q6 IV Last administered on 09/20/16 05:47; Admin Dose 5 MG; Start 09/17/16 at 18:00 Metoprolol Tartrate (Lopressor) 50 mg BID PO Last administered on 09/20/16 09: 57; Admin Dose 50 MG; Start 09/17/16 at 21:00 Morphine Sulfate 2 mg 2 mg Q4H PRN IV PAIN LEVEL 7-10 Last administered on 09/20 02:56; Admin Dose 2 MG; Start 09/18/16 at 12:00 Norepinephrine 250 ml @ 1.875 mls/ hr TITRATE IV ; Start 09/19/16 at 18:30 Piperacillin Sod/ Tazobactam Sod (Zosyn 2.25gm/ 50ml (Pmx)) 50 ml @ 100 mls/hr Q8 IVPB Last administered on 09/20/16 10:08; Admin Dose 100 MLS/HR; Start at 09:00 Methylprednisolone Sodium Succinate 40 mg 40 mg Q6 IV ; Start 09/20/16 at 12:00 Vancomycin HCl 1.25 gm/Sodium Chloride 250 ml @ 83.333 mls/ hr ONCE IVPB ; Start 09/20/16 at 10:30; Stop 09/20/16 at 13:29 Vancomycin HCl 750 mg/Sodium Chloride 150 ml @ 75 mls/hr Q24H IVPB ; Start at 10:30 Sodium Chloride 1,000 ml @ 1,000 mls/hr Q1H ONCE IV Last administered on 10:09; Admin Dose 1,000 MLS/HR; Start 09/20/16 at 10:30; Stop 09/20/16 at 11:29 Sodium Chloride (NS) 1,000 ml @ 150 mls/hr Q6H40M IV ; Start 09/20/16 at 11:30 Procedures Procedures CXR 09/20/16: 1. Hyperinflation of the lungs with chronic-appearing interstitial changes. There are patchy right lung interstitial opacities which may reflect superimposed interstitial edema or pneumonia. Overall, no significant interval change. 2. Probable small bilateral pleural effusions. 3. Aortic atherosclerosis. 4. Tubes and lines, as described above. Abd X-ray 09/19/16: Injected gastrostomy tube demonstrates opacification of the gastric fundus and body, the tube therefore in satisfactory position. LIZZY GODFREY M.D. 09/27/16 0850: Assessment/Plan Assessment/Plan Additional Assessment/Plan Bekah attestation: I discussed the management with BELEM Loving and agree with above. Exam/Review of Systems Results Result Diagram: 09/20/16 0600 09/20/16 0600 KO LOVING NP Sep 20, 2016 10:41 LIZZY GODFREY M.D. Sep 27, 2016 08:50
[2016-09-20] MEDS ORDERED: LIDOCAINE 1% (MDV) 20 ML INJ SC ONE (11:00)
[2016-09-20 11:06] LABS: LYMPHOCYTES # 0.6 10^3/ul (0.8-2.9); MONOCYTE # 1.5 10^3/ul (0.3-0.9); NEUTROPHIL # 17.8 10^3/ul (1.6-7.5)
[2016-09-20 11:09] LABS: ANISOCYTOSIS 1+; HYPOCHROMASIA 2+
[2016-09-20 11:10] LABS: MICROCYTOSIS 1+
[2016-09-20] MEDS: SOD CHLORIDE 0.9% 1,000 ML IV SCH ×3 (11:55→21:59)
[2016-09-20] MEDS: METHYLPREDNISOLONE 40 MG INJ IV SCH ×2 (11:57→18:47)
[2016-09-20] MEDS ORDERED: METOCLOPRAMIDE 10 MG INJ IV PRN (12:30)
--- NOTE | 2016-09-20 14:22 | PN ---
Date/Time of Note Date/Time of Note DATE: 09/20/16 TIME: 14:18 Assessment/Plan VTE Prophylaxis VTE Prophylaxis Intervention: SCD's Lines/Catheters IV Catheter Type (from Nrs): Peripheral IV Urinary Cath still in place: Yes Reason Cath still needed: urinary retention Assessment/Plan Chief Complaint/Hosp Course ASSESSMENT AND PLAN: - Systemic inflammatory response syndrome with leukocytosis, possible aspiration. Continue broad-spectrum antibiotics, monitor chest x-ray. - RAYNA 2 to dehydration and SIRS, continue IV fluids. - Dysphagia, s/p J-tube placement. Patient s/p high residual and emesis. Continue Zofran as needed for nausea. Continue to monitor G-tube residual. Follow-up gastroenterology recommendation. 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 Continue Protonix. Dr. Pryor is following the patient in gastroenterology consultation. Continue IV fluids. - Anemia 2 to GI bleed, no indication for blood transfusion, monitor H&H. - Dehydration secondary to vomiting, resolved. - S/p sepsis with Staph bacteremia [address] Godfrey is following in ID consultation. Continue abx per ID. 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 - Ventilator-dependent respiratory failure with tracheostomy. Dr. Morrison is following from pulmonology standpoint. Continue bronchodilators and pulmonary toilet. - Chronic obstructive pulmonary disease. - Chronic Chaudhari catheter. - Colostomy - Hypertension, metoprolol and hydralazine as needed. - Bedbound status. - Acute kidney injury, resolved. - MRSA UTI , s/p treatment. - MRSA of nares. Continue Bactroban. - Intermittent atrial tachycardia. Dr. Broderick is is following in cardiology consultation, continue telemetry monitoring. Monitor electrolytes. Continue sequential compression device for deep venous thrombosis prophylaxis and Protonix for peptic ulcer disease prophylaxis. Further recommendations based on clinical course. Plan of care discussed with Dr. Meeks. Problems: Subjective 24 Hr Interval Summary Free Text/Dictation Patient is status post nonbloody emesis and high residual, patient was increased leukocytosis most likely due to possible aspiration. No fever diarrhea per nursing staff. Exam/Review of Systems Vital Signs Vitals Vital Signs Date Time Temp Pulse Resp B/P Pulse Ox O2 Delivery O2 Flow Rate FiO2 09/20/16 12:00 62 18 100/62 100 Mechanical Ventilator 09/20/16 11:00 60 09/20/16 07:30 98.4 Intake and Output 09/19/16 09/19/16 09/20/16 15:00 23:00 07:00 Intake Total 0 ml 940 ml 470 ml Output Total 60 ml 40 ml 750 ml Balance -60 ml 900 ml -280 ml Exam GENERAL: Well-developed, cachectic gentleman currently obtunded on ventilator support via tracheostomy. HEENT: Pupils equal, round, reactive to light and accommodation. NECK: Supple, no cervical lymphadenopathy, no thyromegaly. Tracheostomy the base of the neck with small amount of secretions. LUNGS: Rhonchi bilaterally, slightly diminished at the bases. CARDIOVASCULAR: Normal S1, S2. No murmurs, gallops, clicks, rubs noted. ABDOMEN: Flat, soft, nondistended, nontender. Bowel sounds present. Patient has left lower quadrant colostomy with pink, moist stoma. G-tube. GENITOURINARY: The patient also has a Chaudhari catheter. EXTREMITIES: No edema, clubbing, cyanosis. Pulses equal bilaterally 2+. Lower extremities contracted. SKIN: There is no rash, petechiae noted. The patient has a sacral decubitus ulcer stage II. NEUROLOGIC: Patient does not follow any commands. Results Result Diagram: 09/20/16 0600 09/20/16 0600 Results 24 hrs Laboratory Tests Test 09/20/16 05:00 09/20/16 06:00 Arterial Blood HCO3 20.6 L Arterial Blood Base Excess -2.9 Arterial Blood Oxygen Saturation 96.7 Mane Test ACCEPTAB Arterial Blood Gas Puncture Site Left Radial Arterial Blood Carboxyhemoglobin 0.1 Arterial Blood Date Drawn 09/20/2016 4:55:36 AM Arterial Blood Methemoglobin 0.7 Arterial Blood pCO2 (Temp correct) 30.7 L Arterial Blood pH (Temp corrected) 7.444 Arterial Blood pO2 (Temp corrected) 90.7 H Blood Gas A-a O2 Differential 303.3 H Blood Gas Actual Respiration Rate 24 Blood Gas Inspiratory Pressure 27.0 Blood Gas Low PEEP Setting 10.0 Blood Gas Modality VENT-AC Blood Gas Notified Time 09/20/2016 5:06:11 AM Blood Gas Notified Whom JMD Blood Gas Respiration Rate 24.0 Blood Gas Specimen Source Blood arterial Blood Gas Temperature 37.0 Blood Gas Tidal Volume 600.0 FiO2 60.0 Oxyhemoglobin Percent 95.9 Total Hemoglobin 9.0 L Alanine Aminotransferase (ALT/SGPT) 14 Albumin 2.5 L Albumin/Globulin Ratio 0.75 Alkaline Phosphatase 75 Anion Gap 15 Anisocytosis 1+ Aspartate Amino Transf (AST/SGOT) 15 Band Neutrophils % 6.0 H Blood Morphology Comment Blood Urea Nitrogen 28 H Calcium Level 8.4 Carbon Dioxide Level 26 Chloride Level 106 Creatinine 2.23 H Direct Bilirubin 0.00 Globulin 3.30 H Glucose Level 134 Hematocrit 25.7 L Hemoglobin 8.4 L Hypochromasia 2+ Indirect Bilirubin 0.2 Lactic Acid Level 1.6 Lymphocytes # 0.6 L Lymphocytes % 3.0 L Mean Corpuscular Hemoglobin 26.6 L Mean Corpuscular Hemoglobin Concent 32.7 Mean Corpuscular Volume 81.3 L Mean Platelet Volume 11.6 H Microcytosis 1+ Monocytes # 1.5 H Monocytes % 7.0 Neutrophils # 17.8 H Neutrophils % 84.0 H Nucleated Red Blood Cells # Nucleated Red Blood Cells % Platelet Count 292 Potassium Level 4.8 Red Blood Count 3.16 L Red Cell Distribution Width 17.9 H Sodium Level 142 Total Bilirubin 0.2 Total Protein 5.8 L White Blood Count 21.2 #H Medications Medications Current Medications Collagenase (Santyl) 1 applic DAILY TOP Last administered on 09/19/16 10:00; Admin Dose 1 APPLIC; Start 09/02/16 at 11:30 Tobramycin (Tobramycin Iv Per Pharmacy) TOBRAMYCIN PER PHARMACY NOTE XX ; Start 09/06/16 at 12:30 Clotrimazole (Lotrimin Cr) 1 applic BID TOP Last administered on 09/20/16 09: 58; Admin Dose 1 APPLIC; Start 09/14/16 at 14:30 Mupirocin 1 applic 1 applic BID TOP Last administered on 09/20/16 09:57; Admin Dose 1 APPLIC; Start 09/14/16 at 21:00 Tobramycin/Sodium Chloride (Tobramycin/NS) 107.5 ml @ 103.75 mls/ hr Q48H IVPB Last administered on 09/18/16 17:11; Admin Dose 103.75 MLS/HR; Start at 18:00; Status Future Hold Amiodarone HCl (Cordarone) 200 mg BID NGT Last administered on 09/20/16 09:56 ; Admin Dose 200 MG; Start 09/17/16 at 13:30 Hydralazine HCl (Apresoline) 10 mg Q4H PRN IV ELEVATED BLOOD PRESSURE Last administered on 09/17/16 16:11; Admin Dose 10 MG; Start 09/17/16 at 16:00 Metoclopramide HCl (Reglan) 5 mg Q6 IV Last administered on 09/20/16 12:00; Admin Dose 5 MG; Start 09/17/16 at 18:00 Metoprolol Tartrate (Lopressor) 50 mg BID PO Last administered on 09/20/16 09: 57; Admin Dose 50 MG; Start 09/17/16 at 21:00 Morphine Sulfate 2 mg 2 mg Q4H PRN IV PAIN LEVEL 7-10 Last administered on 09/20 02:56; Admin Dose 2 MG; Start 09/18/16 at 12:00 Norepinephrine 250 ml @ 1.875 mls/ hr TITRATE IV ; Start 09/19/16 at 18:30 Piperacillin Sod/ Tazobactam Sod (Zosyn 2.25gm/ 50ml (Pmx)) 50 ml @ 100 mls/hr Q8 IVPB Last administered on 09/20/16 10:08; Admin Dose 100 MLS/HR; Start at 09:00 Methylprednisolone Sodium Succinate 40 mg 40 mg Q6 IV Last administered on 09/20 11:57; Admin Dose 40 MG; Start 09/20/16 at 12:00 Vancomycin HCl 750 mg/Sodium Chloride 150 ml @ 75 mls/hr Q24H IVPB ; Start at 10:30 Sodium Chloride (NS) 1,000 ml @ 150 mls/hr Q6H40M IV Last administered on 09/20 11:55; Admin Dose 150 MLS/HR; Start 09/20/16 at 11:30 Metoclopramide HCl (Reglan) 10 mg Q6H PRN IV .FOR GASTRIC RESIDUAL > 100 ML; Start 09/20/16 at 12:30 Pantoprazole (Protonix Iv) 40 mg BID@06,18 IV ; Start 09/20/16 at 18:00 AMY MORAN Sep 20, 2016 14:22
--- NOTE | 2016-09-20 14:36 | PN ---
DATE: CHIEF COMPLAINT: History of aspiration. HISTORY OF PRESENT ILLNESS: The patient had a G-tube placed a few days ago endoscopically, and he s howed evidence of several hundred mL of retained secretions and the knee aspirated. He was transfer red to the ICU. Currently, the patient is on a ventilator status post trach. The KUB showed with G astrografin through the G-tube that the G-tube was in the proper position in the stomach, and he has drained about 700 mL of greenish liquid in the past 24 hours from the NG tube. IMPRESSION: Status post PEG placement, status post emesis. He probably has significant gastropares is due to multiple medical problems. PLAN: At this time, will start with 20 of tube feeding through the G-tube and continue to give Regl an, and if necessary will add Reglan 10 mg every 6 hours if residual greater than 100 mL and will fo llow the patient closely. Dictated By: KATELYN FERRARI/MACK Conf#: [id number] DID#: [id number]
--- NOTE | 2016-09-20 15:51 | CONS ---
Date/Time of Note Date/Time of Note DATE: 09/20/16 TIME: 15:49 Assessment/Plan Assessment/Plan Additional Assessment/Plan Intermittent atrial tachycardia and atrial fibrillation Frequent PACs and PVCs Preserved ejection fraction Hypotension Hematemesis Respiratory failure Encephalopathy -Blood pressure has been on the lower end, will decrease Lopressor with holding parameters, continue amiodarone. Maintain potassium above 4.0 and magnesium above 2.0. Consultation Date/Type/Reason Admit Date/Time Aug 31, 2016 at 14:59 Initial Consult Date 09/02/16 Type of Consultation: cv Referring Provider: MARIO ROWE 24 HR Interval Summary Free Text/Dictation Patient seen and examined. Blood pressure on the lower end Exam/Review of Systems Vital Signs Vitals Vital Signs Date Time Temp Pulse Resp B/P Pulse Ox O2 Delivery O2 Flow Rate FiO2 09/20/16 15:00 64 17 100 60 09/20/16 14:30 98/70 09/20/16 14:00 Mechanical Ventilator 09/20/16 12:30 98.4 Intake and Output 09/19/16 09/19/16 09/20/16 15:00 23:00 07:00 Intake Total 0 ml 940 ml 500 ml Output Total 60 ml 40 ml 750 ml Balance -60 ml 900 ml -250 ml Exam No apparent distress, no response to verbal stimuli Neck: other (Tracheostomy) Respiratory: other (Coarse breath sounds bilaterally, no wheezing) Cardiovascular: other (S1-S2 heard), regular rate and rhythm Gastrointestinal: bowel sounds, other (No grimacing with palpation), soft Extremities: edema (Trace) Results Result Diagram: 09/20/16 0600 09/20/16 0600 Results 24 hrs Laboratory Tests Test 09/20/16 05:00 09/20/16 06:00 Arterial Blood HCO3 20.6 L Arterial Blood Base Excess -2.9 Arterial Blood Oxygen Saturation 96.7 Mane Test ACCEPTAB Arterial Blood Gas Puncture Site Left Radial Arterial Blood Carboxyhemoglobin 0.1 Arterial Blood Date Drawn 09/20/2016 4:55:36 AM Arterial Blood Methemoglobin 0.7 Arterial Blood pCO2 (Temp correct) 30.7 L Arterial Blood pH (Temp corrected) 7.444 Arterial Blood pO2 (Temp corrected) 90.7 H Blood Gas A-a O2 Differential 303.3 H Blood Gas Actual Respiration Rate 24 Blood Gas Inspiratory Pressure 27.0 Blood Gas Low PEEP Setting 10.0 Blood Gas Modality VENT-AC Blood Gas Notified Time 09/20/2016 5:06:11 AM Blood Gas Notified Whom JMD Blood Gas Respiration Rate 24.0 Blood Gas Specimen Source Blood arterial Blood Gas Temperature 37.0 Blood Gas Tidal Volume 600.0 FiO2 60.0 Oxyhemoglobin Percent 95.9 Total Hemoglobin 9.0 L Alanine Aminotransferase (ALT/SGPT) 14 Albumin 2.5 L Albumin/Globulin Ratio 0.75 Alkaline Phosphatase 75 Anion Gap 15 Anisocytosis 1+ Aspartate Amino Transf (AST/SGOT) 15 Band Neutrophils % 6.0 H Blood Morphology Comment Blood Urea Nitrogen 28 H Calcium Level 8.4 Carbon Dioxide Level 26 Chloride Level 106 Creatinine 2.23 H Direct Bilirubin 0.00 Globulin 3.30 H Glucose Level 134 Hematocrit 25.7 L Hemoglobin 8.4 L Hypochromasia 2+ Indirect Bilirubin 0.2 Lactic Acid Level 1.6 Lymphocytes # 0.6 L Lymphocytes % 3.0 L Mean Corpuscular Hemoglobin 26.6 L Mean Corpuscular Hemoglobin Concent 32.7 Mean Corpuscular Volume 81.3 L Mean Platelet Volume 11.6 H Microcytosis 1+ Monocytes # 1.5 H Monocytes % 7.0 Neutrophils # 17.8 H Neutrophils % 84.0 H Nucleated Red Blood Cells # Nucleated Red Blood Cells % Platelet Count 292 Potassium Level 4.8 Red Blood Count 3.16 L Red Cell Distribution Width 17.9 H Sodium Level 142 Total Bilirubin 0.2 Total Protein 5.8 L White Blood Count 21.2 #H Medications Medications Current Medications Collagenase (Santyl) 1 applic DAILY TOP Last administered on 09/19/16 10:00; Admin Dose 1 APPLIC; Start 09/02/16 at 11:30 Tobramycin (Tobramycin Iv Per Pharmacy) TOBRAMYCIN PER PHARMACY NOTE XX ; Start 09/06/16 at 12:30 Clotrimazole (Lotrimin Cr) 1 applic BID TOP Last administered on 09/20/16 09: 58; Admin Dose 1 APPLIC; Start 09/14/16 at 14:30 Mupirocin 1 applic 1 applic BID TOP Last administered on 09/20/16 09:57; Admin Dose 1 APPLIC; Start 09/14/16 at 21:00 Tobramycin/Sodium Chloride (Tobramycin/NS) 107.5 ml @ 103.75 mls/ hr Q48H IVPB Last administered on 09/18/16 17:11; Admin Dose 103.75 MLS/HR; Start at 18:00; Status Future Hold Amiodarone HCl (Cordarone) 200 mg BID NGT Last administered on 09/20/16 09:56 ; Admin Dose 200 MG; Start 09/17/16 at 13:30 Hydralazine HCl (Apresoline) 10 mg Q4H PRN IV ELEVATED BLOOD PRESSURE Last administered on 09/17/16 16:11; Admin Dose 10 MG; Start 09/17/16 at 16:00 Metoclopramide HCl (Reglan) 5 mg Q6 IV Last administered on 09/20/16 12:00; Admin Dose 5 MG; Start 09/17/16 at 18:00 Metoprolol Tartrate (Lopressor) 50 mg BID PO Last administered on 09/20/16 09: 57; Admin Dose 50 MG; Start 09/17/16 at 21:00 Morphine Sulfate 2 mg 2 mg Q4H PRN IV PAIN LEVEL 7-10 Last administered on 09/20 02:56; Admin Dose 2 MG; Start 09/18/16 at 12:00 Norepinephrine 250 ml @ 1.875 mls/ hr TITRATE IV ; Start 09/19/16 at 18:30 Piperacillin Sod/ Tazobactam Sod (Zosyn 2.25gm/ 50ml (Pmx)) 50 ml @ 100 mls/hr Q8 IVPB Last administered on 09/20/16 15:15; Admin Dose 100 MLS/HR; Start at 09:00 Methylprednisolone Sodium Succinate 40 mg 40 mg Q6 IV Last administered on 09/20 11:57; Admin Dose 40 MG; Start 09/20/16 at 12:00 Sodium Chloride (NS) 1,000 ml @ 150 mls/hr Q6H40M IV Last administered on 09/20 11:55; Admin Dose 150 MLS/HR; Start 09/20/16 at 11:30 Metoclopramide HCl (Reglan) 10 mg Q6H PRN IV .FOR GASTRIC RESIDUAL > 100 ML; Start 09/20/16 at 12:30 Pantoprazole (Protonix Iv) 40 mg BID@06,18 IV ; Start 09/20/16 at 18:00 Maynor Broderick DO Sep 20, 2016 15:51
[2016-09-20] MEDS: PANTOPRAZOLE 40 MG INJ IV SCH (18:47)
[2016-09-20] MEDS: METOPROLOL 25 MG TAB PO SCH (21:58)
[2016-09-21] VITALS (35 sets, daily range): BP systolic 81–149; BP diastolic 50–94; PULSE 52–99; RESP 16–26
[2016-09-21] MEDS: METHYLPREDNISOLONE 40 MG INJ IV SCH ×5 (00:24→23:41)
[2016-09-21] MEDS: METOCLOPRAMIDE 10 MG INJ IV SCH ×5 (00:24→23:41)
[2016-09-21] MEDS: SOD CHLORIDE 0.9% 1,000 ML IV SCH ×2 (04:49→13:39)
[2016-09-21 05:00] LABS: HEMOGLOBIN 8.3 g/dl (14.0-18.0); MEAN CORPUSCULAR HEMOGLOBIN 26.2 pg (29.0-33.0); MEAN CORPUSCULAR HGB CONC 32.1 g/dl (32.0-37.0); MEAN CORPUSCULAR VOLUME 81.8 fl (82.0-101.0); MEAN PLATELET VOLUME 11.7 fl (7.4-10.4); PLATELET COUNT 301 10^3/UL (140-440); RED BLOOD COUNT 3.18 10^6/ul (4.70-6.10); RED CELL DISTRIBUTION WIDTH 18.5 % (11.5-14.5); UNCORRECTED WBC 16.5 10^3/ul (4.8-10.8); WHITE BLOOD COUNT 16.5 10^3/ul (4.8-10.8)
[2016-09-21 05:07] LABS: POTASSIUM 5.2 mmol/L (3.5-5.1)
[2016-09-21 05:10] LABS: CREATININE 2.6 mg/dl (0.61-1.24)
[2016-09-21 05:11] LABS: CALCIUM 8.3 mg/dl (8.4-10.2)
[2016-09-21] MEDS: PANTOPRAZOLE 40 MG INJ IV SCH ×2 (05:49→18:12)
[2016-09-21] MEDS: PIPER-TAZO 2.25 GM (PMX) 50 ML IVPB SCH ×3 (05:49→23:34)
[2016-09-21 05:54] LABS: SUSPECT 1
[2016-09-21 05:55] LABS: CONDITION 1; LH ANALYZER COMMENTS 1
--- NOTE | 2016-09-21 06:28 | RADRPT ---
PROCEDURE: XR, Chest. CLINICAL INDICATION: Follow up for respiratory distress. TECHNIQUE: AP chest. COMPARISON: Chest, 09/20/2016. FINDINGS: There are chronic interstitial infiltrates in the right upper lobe, unchanged. The lungs are overin flated. The heart is not enlarged. No pleural effusion. The tracheostomy tube and NG tube remain in good position. IMPRESSION: 1. Chronic patchy infiltrates in the right upper lobe, unchanged. 2. Overinflated lungs. RPTAT: GG .Braden Charles MD, MD Date Time Electronically viewed and signed by .Braden Charles MD, MD on 09/21/2016 06:28 .Y/
--- NOTE | 2016-09-21 08:49 | CONS ---
Date/Time of Note Date/Time of Note DATE: 09/21/16 TIME: 08:46 Assessment/Plan Assessment/Plan Additional Assessment/Plan Ventilator settings; AC of 16, tidal volume 500, PEEP of 10, 50% FiO2. Assessment and recommendations; next 1. Patient admitted with pneumonia due to aspiration. Chest x-ray has improved. 2. Severe underlying anoxic enthesopathy, patient remains ventilator dependent. 3. Worsening renal function. 4. History of cardiac arrhythmia. 5. J-tube replacement. Patient started back on tube feeding. Continue current treatment. Wean down FiO2 to keep O2 sat around 94%. Continue IV hydration. Overall prognosis remains poor. Consultation Date/Type/Reason Admit Date/Time Aug 31, 2016 at 14:59 Initial Consult Date 09/01/16 Type of Consultation: Pulmonary/critical Referring Provider: MARIO ROWE 24 HR Interval Summary Free Text/Dictation Patient condition remains stable. Remains unresponsive which is his underlying mental status. Remains ventilator dependent. Has remained hemodynamically stable not requiring any pressor support. General examination; elderly male, on ventilator via tracheostomy unresponsive. Exam/Review of Systems Vital Signs Vitals Vital Signs Date Time Temp Pulse Resp B/P Pulse Ox O2 Delivery O2 Flow Rate FiO2 09/21/16 05:30 70 16 88/55 100 09/21/16 05:25 50 09/21/16 05:00 Mechanical Ventilator 09/21/16 04:30 97.8 Intake and Output 09/20/16 09/20/16 09/21/16 15:00 23:00 07:00 Intake Total 1550 ml 950 ml 1300 ml Output Total 40 ml 30 ml 340 ml Balance 1510 ml 920 ml 960 ml Exam HEENT examination; supple neck, no JVD. No lymphadenopathy. No thyromegaly. Tracheostomy in place with clean insertion site. Patient is edentulous. Chest examination; diminished but clear breath sounds bilaterally. S1-S2 audible no murmurs, regular rhythm. Abdomen examination; soft, nondistended. G-tube in place. Bowel sounds audible. Colostomy in place. Extremity examination; no peripheral edema. [employer] examination: patient remains unresponsive. Results Result Diagram: 09/21/16 0430 09/21/16 0430 Results 24 hrs Laboratory Tests Test 09/21/16 04:20 09/21/16 04:30 Magnesium Level 2.0 Anion Gap 19 H Blood Morphology Comment Blood Urea Nitrogen 33 H Calcium Level 8.3 L Carbon Dioxide Level 20 L Chloride Level 109 Creatinine 2.60 H Glucose Level 119 Hematocrit 26.0 L Hemoglobin 8.3 L Mean Corpuscular Hemoglobin 26.2 L Mean Corpuscular Hemoglobin Concent 32.1 Mean Corpuscular Volume 81.8 L Mean Platelet Volume 11.7 H Nucleated Red Blood Cells # Nucleated Red Blood Cells % Platelet Count 301 Potassium Level 5.2 H Random Tobramycin Level 2.1 Red Blood Count 3.18 L Red Cell Distribution Width 18.5 H Sodium Level 143 White Blood Count 16.5 #H Medications Medications Current Medications Collagenase (Santyl) 1 applic DAILY TOP Last administered on 09/19/16 10:00; Admin Dose 1 APPLIC; Start 09/02/16 at 11:30 Tobramycin (Tobramycin Iv Per Pharmacy) TOBRAMYCIN PER PHARMACY NOTE XX ; Start 09/06/16 at 12:30 Clotrimazole (Lotrimin Cr) 1 applic BID TOP Last administered on 09/20/16 20: 47; Admin Dose 1 APPLIC; Start 09/14/16 at 14:30 Mupirocin 1 applic 1 applic BID TOP Last administered on 09/20/16 20:47; Admin Dose 1 APPLIC; Start 09/14/16 at 21:00 Tobramycin/Sodium Chloride (Tobramycin/NS) 107.5 ml @ 103.75 mls/ hr Q48H IVPB Last administered on 09/18/16 17:11; Admin Dose 103.75 MLS/HR; Start at 18:00; Status Future Hold Amiodarone HCl (Cordarone) 200 mg BID NGT Last administered on 09/20/16 21:58 ; Admin Dose 200 MG; Start 09/17/16 at 13:30 Hydralazine HCl (Apresoline) 10 mg Q4H PRN IV ELEVATED BLOOD PRESSURE Last administered on 09/17/16 16:11; Admin Dose 10 MG; Start 09/17/16 at 16:00 Metoclopramide HCl (Reglan) 5 mg Q6 IV Last administered on 09/21/16 05:49; Admin Dose 5 MG; Start 09/17/16 at 18:00 Morphine Sulfate 2 mg 2 mg Q4H PRN IV PAIN LEVEL 7-10 Last administered on 09/20 22:00; Admin Dose 2 MG; Start 09/18/16 at 12:00 Norepinephrine 250 ml @ 1.875 mls/ hr TITRATE IV ; Start 09/19/16 at 18:30 Piperacillin Sod/ Tazobactam Sod (Zosyn 2.25gm/ 50ml (Pmx)) 50 ml @ 100 mls/hr Q8 IVPB Last administered on 09/21/16 05:49; Admin Dose 100 MLS/HR; Start at 09:00 Methylprednisolone Sodium Succinate 40 mg 40 mg Q6 IV Last administered on 09/21 05:49; Admin Dose 40 MG; Start 09/20/16 at 12:00 Sodium Chloride (NS) 1,000 ml @ 150 mls/hr Q6H40M IV Last administered on 09/21 04:49; Admin Dose 150 MLS/HR; Start 09/20/16 at 11:30 Metoclopramide HCl (Reglan) 10 mg Q6H PRN IV .FOR GASTRIC RESIDUAL > 100 ML; Start 09/20/16 at 12:30 Pantoprazole (Protonix Iv) 40 mg BID@06,18 IV Last administered on 09/21/16 05 :49; Admin Dose 40 MG; Start 09/20/16 at 18:00 Metoprolol Tartrate (Lopressor) 25 mg BID PO Last administered on 09/20/16 21: 58; Admin Dose 25 MG; Start 09/20/16 at 21:00 SHAAN BUTT Sep 21, 2016 08:48
[2016-09-21] MEDS: AMIODARONE 200 MG TAB NGT SCH ×2 (09:00→20:05)
[2016-09-21] MEDS: COLLAGENASE 30 GM TUBE TOP SCH (09:00)
[2016-09-21] MEDS: METOPROLOL 25 MG TAB PO SCH ×2 (09:00→20:05)
[2016-09-21 10:02] LABS: ANISOCYTOSIS 1+; LYMPHOCYTES # 0.8 10^3/ul (0.8-2.9); MONOCYTE # 0.3 10^3/ul (0.3-0.9); NEUTROPHIL # 15.3 10^3/ul (1.6-7.5)
[2016-09-21 10:03] LABS: HYPOCHROMASIA 2+; MICROCYTOSIS 1+
--- NOTE | 2016-09-21 10:23 | CONS ---
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 the wound culture grew carbapenemase producing kleb, enterococci and pseudo - leakage of gastric contents from GT site, now has ostomy bag - resolved - dysphagia s/p EGD and new G tube placement 09/15/2016 - infection of wound of RLE due to pseudomonas. 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 Salas- continue for now. F/u blood cx and respiratory cx (09/20/16 - pending) - Pt has multiple MDR organisms and it is impossible to cover all. We recommend covering MRSA, and bacteria in the abdominal wound and RLE wound as much as possible - Continue IV tobramycin (09/06/2016-) for pseudomonas - Check procalcitonin (09/20/16 pending) - Trend WBC (downward trending) and renal fxn (worsening) - Continue topical antimicrobials (Clotrimazole and Bactroban) to BLE rash; keep area clean and dry; consider dermasmooth; consider Dermatology consult - [facility] for temp >100.4 - Consider Palliative Eval - Plan d/w [employer]ING [employer]ALL P[employer]ER - Above d/w Dr. Tang - Critical care time spent; 35 minutes Problems: Consultation Date/Type/Reason Admit Date/Time Aug 31, 2016 at 14:59 Initial Consult Date 09/02/16 Type of Consultation: Infectious Disease Referring Provider: MARIO ROWE 24 HR Interval Summary Free Text/Dictation Remains afebrile; did not tolerate tube feed which was leaking from G Tube site ; NGT remains to sxn; has decreased urine output per RN Alena. Pt remains obtunded. Exam/Review of Systems Vital Signs Vitals Vital Signs Date Time Temp Pulse Resp B/P Pulse Ox O2 Delivery O2 Flow Rate FiO2 09/21/16 09:00 77 18 100 50 09/21/16 05:30 88/55 09/21/16 05:00 Mechanical Ventilator 09/21/16 04:30 97.8 Intake and Output 09/20/16 09/20/16 09/21/16 15:00 23:00 07:00 Intake Total 1550 ml 950 ml 1300 ml Output Total 40 ml 30 ml 350 ml Balance 1510 ml 920 ml 950 ml Exam Constitutional: frail, other (non-communicative; chronically debilitated, cachectic ) Head: atraumatic, normocephalic, other (temporal wasting noted). Mucous membranes pink and dry. Neck: other (trach midline) Respiratory: Diminished breath sounds. No wheezing. Cardiovascular: nl pulses, regular rate and rhythm Gastrointestinal: bowel sounds, other (colostomy intact - stoma pink/no stool; NGT to suction with small amount greenish output; G tube clamped and intact with dressing c/d/i), soft Genitourinary - Male: other (vincent cath intact with clear yellow urine with few sediments) Musculoskeletal: muscle weakness, limited range of motion Extremities: normal pulses, other (bilateral foot drop noted), trace edema R>L , contracted No clubbing, No cyanosis Neurological: unresponsive Skin: other (RLE posterior lateral dressing c/d/i); scattered papule rash to BLE medially, R>L continues to slowly improve Results Result Diagram: 09/21/1642909/21/16 043 Results 24 hrs Laboratory Tests Test 09/21/16 04:20 09/21/16 04:30 Magnesium Level 2.0 Anion Gap 19 H Anisocytosis 1+ Blood Morphology Comment Blood Urea Nitrogen 33 H Calcium Level 8.3 L Carbon Dioxide Level 20 L Chloride Level 109 Creatinine 2.60 H Glucose Level 119 Hematocrit 26.0 L Hemoglobin 8.3 L Hypochromasia 2+ Lymphocytes # 0.8 Lymphocytes % 5.0 L Mean Corpuscular Hemoglobin 26.2 L Mean Corpuscular Hemoglobin Concent 32.1 Mean Corpuscular Volume 81.8 L Mean Platelet Volume 11.7 H Microcytosis 1+ Monocytes # 0.3 Monocytes % 2.0 Neutrophils # 15.3 H Neutrophils % 93.0 H Nucleated Red Blood Cells # Nucleated Red Blood Cells % Platelet Count 301 Potassium Level 5.2 H Random Tobramycin Level 2.1 Red Blood Count 3.18 L Red Cell Distribution Width 18.5 H Sodium Level 143 White Blood Count 16.5 #H Medications Medications Current Medications Collagenase (Santyl) 1 applic DAILY TOP Last administered on 09/19/16 10:00; Admin Dose 1 APPLIC; Start 09/02/16 at 11:30 Tobramycin (Tobramycin Iv Per Pharmacy) TOBRAMYCIN PER PHARMACY NOTE XX ; Start 09/06/16 at 12:30 Clotrimazole (Lotrimin Cr) 1 applic BID TOP Last administered on 09/20/16 20: 47; Admin Dose 1 APPLIC; Start 09/14/16 at 14:30 Mupirocin 1 applic 1 applic BID TOP Last administered on 09/20/16 20:47; Admin Dose 1 APPLIC; Start 09/14/16 at 21:00 Tobramycin/Sodium Chloride (Tobramycin/NS) 107.5 ml @ 103.75 mls/ hr Q48H IVPB Last administered on 09/18/16 17:11; Admin Dose 103.75 MLS/HR; Start at 18:00; Status Future Hold Amiodarone HCl (Cordarone) 200 mg BID NGT Last administered on 09/20/16 21:58 ; Admin Dose 200 MG; Start 09/17/16 at 13:30 Hydralazine HCl (Apresoline) 10 mg Q4H PRN IV ELEVATED BLOOD PRESSURE Last administered on 09/17/16 16:11; Admin Dose 10 MG; Start 09/17/16 at 16:00 Metoclopramide HCl (Reglan) 5 mg Q6 IV Last administered on 09/21/16 05:49; Admin Dose 5 MG; Start 09/17/16 at 18:00 Morphine Sulfate 2 mg 2 mg Q4H PRN IV PAIN LEVEL 7-10 Last administered on 09/20 22:00; Admin Dose 2 MG; Start 09/18/16 at 12:00 Norepinephrine 250 ml @ 1.875 mls/ hr TITRATE IV ; Start 09/19/16 at 18:30 Piperacillin Sod/ Tazobactam Sod (Zosyn 2.25gm/ 50ml (Pmx)) 50 ml @ 100 mls/hr Q8 IVPB Last administered on 09/21/16 05:49; Admin Dose 100 MLS/HR; Start at 09:00 Methylprednisolone Sodium Succinate 40 mg 40 mg Q6 IV Last administered on 09/21 05:49; Admin Dose 40 MG; Start 09/20/16 at 12:00 Sodium Chloride (NS) 1,000 ml @ 150 mls/hr Q6H40M IV Last administered on 09/21 04:49; Admin Dose 150 MLS/HR; Start 09/20/16 at 11:30 Metoclopramide HCl (Reglan) 10 mg Q6H PRN IV .FOR GASTRIC RESIDUAL > 100 ML; Start 09/20/16 at 12:30 Pantoprazole (Protonix Iv) 40 mg BID@06,18 IV Last administered on 09/21/16 05 :49; Admin Dose 40 MG; Start 09/20/16 at 18:00 Metoprolol Tartrate (Lopressor) 25 mg BID PO Last administered on 09/20/16 21: 58; Admin Dose 25 MG; Start 09/20/16 at 21:00 Procedures Procedures CXR 09/21/16: 1. Chronic patchy infiltrates in the right upper lobe, unchanged. 2. Overinflated lungs. KO LOVING NP Sep 21, 2016 10:22
[2016-09-21] MEDS ORDERED: VANCOMYCIN 750 MG in SOD CHLORIDE 0.9% 150 ML IVPB SCH (10:30)
[2016-09-21] MEDS: CLOTRIMAZOLE 1% 30 GM CR TOP SCH ×2 (13:32→20:05)
[2016-09-21] MEDS: MUPIROCIN 2% 22 GM OINT TOP SCH ×2 (13:32→20:05)
--- NOTE | 2016-09-21 14:26 | PN ---
Date/Time of Note Date/Time of Note DATE: 09/21/16 TIME: 14:23 Assessment/Plan VTE Prophylaxis VTE Prophylaxis Intervention: SCD's Lines/Catheters IV Catheter Type (from Nrs): Peripheral IV Central line still needed: Yes Urinary Cath still in place: Yes Reason Cath still needed: urinary retention Assessment/Plan Chief Complaint/Hosp Course ASSESSMENT AND PLAN: - Systemic inflammatory response syndrome with leukocytosis, possible aspiration. Continue broad-spectrum antibiotics, monitor chest x-ray. - RAYNA 2 to dehydration and SIRS, continue IV fluids . Dr Miramontes is following in nephrology consultation.. - Dysphagia, s/p J-tube placement. Patient s/p high residual and emesis. Continue Reglan. Follow-up gastroenterology recommendation. 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 Continue Protonix. Dr. Pryor is following the patient in gastroenterology consultation. Continue IV fluids. - Anemia 2 to GI bleed, no indication for blood transfusion, monitor H&H. - Dehydration secondary to vomiting, resolved. - S/p sepsis with Staph bacteremia [address] Godfrey is following in ID consultation. Continue abx per ID. 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 - Ventilator-dependent respiratory failure with tracheostomy. Dr. Morrison is following from pulmonology standpoint. Continue bronchodilators and pulmonary toilet. - Chronic obstructive pulmonary disease. - Chronic Chaudhari catheter. - Colostomy - Hypertension, metoprolol and hydralazine as needed. - Bedbound status. - Acute kidney injury, resolved. - MRSA UTI , s/p treatment. - MRSA of nares. Continue Bactroban. - Intermittent atrial tachycardia. Dr. Broderick is is following in cardiology consultation, continue telemetry monitoring. Monitor electrolytes. Continue sequential compression device for deep venous thrombosis prophylaxis and Protonix for peptic ulcer disease prophylaxis. Further recommendations based on clinical course. Plan of care discussed with Dr. Meeks. Problems: Subjective 24 Hr Interval Summary Free Text/Dictation Patient has NG tube to low intermittent suctioning draining gastric secretions, afebrile, continue IV fluids, monitor electrolytes. Exam/Review of Systems Vital Signs Vitals Vital Signs Date Time Temp Pulse Resp B/P Pulse Ox O2 Delivery O2 Flow Rate FiO2 09/21/16 11:00 69 18 100 50 09/21/16 05:30 88/55 09/21/16 05:00 Mechanical Ventilator 09/21/16 04:30 97.8 Intake and Output 09/20/16 09/20/16 09/21/16 15:00 23:00 07:00 Intake Total 1550 ml 950 ml 1300 ml Output Total 40 ml 30 ml 350 ml Balance 1510 ml 920 ml 950 ml Exam GENERAL: Well-developed, cachectic gentleman currently obtunded on ventilator support via tracheostomy. HEENT: Pupils equal, round, reactive to light and accommodation. NECK: Supple, no cervical lymphadenopathy, no thyromegaly. Tracheostomy the base of the neck with small amount of secretions. LUNGS: Rhonchi bilaterally, slightly diminished at the bases. CARDIOVASCULAR: Normal S1, S2. No murmurs, gallops, clicks, rubs noted. ABDOMEN: Flat, soft, nondistended, nontender. Bowel sounds present. Patient has left lower quadrant colostomy with pink, moist stoma. G-tube. GENITOURINARY: The patient also has a Chaudhari catheter. EXTREMITIES: No edema, clubbing, cyanosis. Pulses equal bilaterally 2+. Lower extremities contracted. SKIN: There is no rash, petechiae noted. The patient has a sacral decubitus ulcer stage II. NEUROLOGIC: Patient does not follow any commands. Results Result Diagram: 09/21/16 0430 09/21/16 0430 Results 24 hrs Laboratory Tests Test 09/21/16 04:20 09/21/16 04:30 Magnesium Level 2.0 Anion Gap 19 H Anisocytosis 1+ Blood Morphology Comment Blood Urea Nitrogen 33 H Calcium Level 8.3 L Carbon Dioxide Level 20 L Chloride Level 109 Creatinine 2.60 H Glucose Level 119 Hematocrit 26.0 L Hemoglobin 8.3 L Hypochromasia 2+ Lymphocytes # 0.8 Lymphocytes % 5.0 L Mean Corpuscular Hemoglobin 26.2 L Mean Corpuscular Hemoglobin Concent 32.1 Mean Corpuscular Volume 81.8 L Mean Platelet Volume 11.7 H Microcytosis 1+ Monocytes # 0.3 Monocytes % 2.0 Neutrophils # 15.3 H Neutrophils % 93.0 H Nucleated Red Blood Cells # Nucleated Red Blood Cells % Platelet Count 301 Potassium Level 5.2 H Random Tobramycin Level 2.1 Red Blood Count 3.18 L Red Cell Distribution Width 18.5 H Sodium Level 143 White Blood Count 16.5 #H Medications Medications Current Medications Collagenase (Santyl) 1 applic DAILY TOP Last administered on 09/21/16 09:00; Admin Dose 1 APPLIC; Start 09/02/16 at 11:30 Tobramycin (Tobramycin Iv Per Pharmacy) TOBRAMYCIN PER PHARMACY NOTE XX ; Start 09/06/16 at 12:30 Clotrimazole (Lotrimin Cr) 1 applic BID TOP Last administered on 09/21/16 13: 32; Admin Dose 1 APPLIC; Start 09/14/16 at 14:30 Mupirocin 1 applic 1 applic BID TOP Last administered on 09/21/16 13:32; Admin Dose 1 APPLIC; Start 09/14/16 at 21:00 Tobramycin/Sodium Chloride (Tobramycin/NS) 107.5 ml @ 103.75 mls/ hr Q48H IVPB Last administered on 09/18/16 17:11; Admin Dose 103.75 MLS/HR; Start at 18:00; Status Future Hold Amiodarone HCl (Cordarone) 200 mg BID NGT Last administered on 09/20/16 21:58 ; Admin Dose 200 MG; Start 09/17/16 at 13:30 Hydralazine HCl (Apresoline) 10 mg Q4H PRN IV ELEVATED BLOOD PRESSURE Last administered on 09/17/16 16:11; Admin Dose 10 MG; Start 09/17/16 at 16:00 Metoclopramide HCl (Reglan) 5 mg Q6 IV Last administered on 09/21/16 12:00; Admin Dose 5 MG; Start 09/17/16 at 18:00 Morphine Sulfate 2 mg 2 mg Q4H PRN IV PAIN LEVEL 7-10 Last administered on 09/20 22:00; Admin Dose 2 MG; Start 09/18/16 at 12:00 Norepinephrine 250 ml @ 1.875 mls/ hr TITRATE IV ; Start 09/19/16 at 18:30 Piperacillin Sod/ Tazobactam Sod (Zosyn 2.25gm/ 50ml (Pmx)) 50 ml @ 100 mls/hr Q8 IVPB Last administered on 09/21/16 13:37; Admin Dose 100 MLS/HR; Start at 09:00 Methylprednisolone Sodium Succinate 40 mg 40 mg Q6 IV Last administered on 09/21 13:34; Admin Dose 40 MG; Start 09/20/16 at 12:00 Sodium Chloride (NS) 1,000 ml @ 150 mls/hr Q6H40M IV Last administered on 09/21 13:39; Admin Dose 150 MLS/HR; Start 09/20/16 at 11:30 Metoclopramide HCl (Reglan) 10 mg Q6H PRN IV .FOR GASTRIC RESIDUAL > 100 ML Last administered on 09/21/16 13:34; Admin Dose 10 MG; Start 09/20/16 at 12:30 Pantoprazole (Protonix Iv) 40 mg BID@06,18 IV Last administered on 09/21/16 05 :49; Admin Dose 40 MG; Start 09/20/16 at 18:00 Metoprolol Tartrate (Lopressor) 25 mg BID PO Last administered on 09/20/16 21: 58; Admin Dose 25 MG; Start 09/20/16 at 21:00 Miscellaneous Information (*Rx Drug Level Order Reminder*) 1 ONCE ONCE XX ; Start 09/22/16 at 05:00; Stop 09/22/16 at 05:01 AMY MORAN Sep 21, 2016 14:26
[2016-09-21] MEDS: DEXTROSE 5%-0.45% NACL 1,000 ML IV SCH (15:00)
[2016-09-21] MEDS: TPN 1,000 ML IV SCH (16:30)
[2016-09-21 16:50] LABS: POTASSIUM 5.3 mmol/L (3.5-5.1)
[2016-09-21 16:52] LABS: CREATININE 2.82 mg/dl (0.61-1.24)
[2016-09-21 16:53] LABS: CALCIUM 7.9 mg/dl (8.4-10.2)
--- NOTE | 2016-09-21 18:53 | CONS ---
Date/Time of Note Date/Time of Note DATE: 09/21/16 TIME: 18:52 Assessment/Plan Assessment/Plan Additional Assessment/Plan Intermittent atrial tachycardia and atrial fibrillation Frequent PACs and PVCs Preserved ejection fraction Hypotension Hematemesis Respiratory failure Encephalopathy Acute kidney injury -IV fluids as per our renal colleagues, will get renal ultrasound. Continue amiodarone. Consultation Date/Type/Reason Admit Date/Time Aug 31, 2016 at 14:59 Initial Consult Date 09/02/16 Type of Consultation: cv Referring Provider: MARIO ROWE 24 HR Interval Summary Free Text/Dictation Patient seen and examined. No new cardiac issues as per nursing staff Exam/Review of Systems Vital Signs Vitals Vital Signs Date Time Temp Pulse Resp B/P Pulse Ox O2 Delivery O2 Flow Rate FiO2 09/21/16 16:50 73 19 100 50 09/21/16 16:00 97.9 119/74 Mechanical Ventilator Intake and Output 09/20/16 09/20/16 09/21/16 15:00 23:00 07:00 Intake Total 1550 ml 950 ml 1300 ml Output Total 40 ml 30 ml 350 ml Balance 1510 ml 920 ml 950 ml Exam No response to verbal stimuli, no apparent distress Head: normocephalic Neck: other (Tracheostomy) Respiratory: other (Coarse breath sounds bilaterally, no wheezing) Cardiovascular: other (S1-S2 heard), regular rate and rhythm Gastrointestinal: bowel sounds, other (No grimacing with palpation), soft Extremities: edema Results Result Diagram: 09/21/16 0430 09/21/16 1625 Results 24 hrs Laboratory Tests Test 09/21/16 04:20 09/21/16 04:30 09/21/16 16:25 Magnesium Level 2.0 Anion Gap 19 H 19 H Anisocytosis 1+ Blood Morphology Comment Blood Urea Nitrogen 33 H 36 H Calcium Level 8.3 L 7.9 L Carbon Dioxide Level 20 L 18 L Chloride Level 109 111 H Creatinine 2.60 H 2.82 H Glucose Level 119 117 Hematocrit 26.0 L Hemoglobin 8.3 L Hypochromasia 2+ Lymphocytes # 0.8 Lymphocytes % 5.0 L Mean Corpuscular Hemoglobin 26.2 L Mean Corpuscular Hemoglobin Concent 32.1 Mean Corpuscular Volume 81.8 L Mean Platelet Volume 11.7 H Microcytosis 1+ Monocytes # 0.3 Monocytes % 2.0 Neutrophils # 15.3 H Neutrophils % 93.0 H Nucleated Red Blood Cells # Nucleated Red Blood Cells % Platelet Count 301 Potassium Level 5.2 H 5.3 H Random Tobramycin Level 2.1 Red Blood Count 3.18 L Red Cell Distribution Width 18.5 H Sodium Level 143 143 White Blood Count 16.5 #H Medications Medications Current Medications Collagenase (Santyl) 1 applic DAILY TOP Last administered on 09/21/16 09:00; Admin Dose 1 APPLIC; Start 09/02/16 at 11:30 Tobramycin (Tobramycin Iv Per Pharmacy) TOBRAMYCIN PER PHARMACY NOTE XX ; Start 09/06/16 at 12:30 Clotrimazole (Lotrimin Cr) 1 applic BID TOP Last administered on 09/21/16 13: 32; Admin Dose 1 APPLIC; Start 09/14/16 at 14:30 Mupirocin 1 applic 1 applic BID TOP Last administered on 09/21/16 13:32; Admin Dose 1 APPLIC; Start 09/14/16 at 21:00 Tobramycin/Sodium Chloride (Tobramycin/NS) 107.5 ml @ 103.75 mls/ hr Q48H IVPB Last administered on 09/18/16 17:11; Admin Dose 103.75 MLS/HR; Start at 18:00; Status Future Hold Amiodarone HCl (Cordarone) 200 mg BID NGT Last administered on 09/20/16 21:58 ; Admin Dose 200 MG; Start 09/17/16 at 13:30 Hydralazine HCl (Apresoline) 10 mg Q4H PRN IV ELEVATED BLOOD PRESSURE Last administered on 09/17/16 16:11; Admin Dose 10 MG; Start 09/17/16 at 16:00 Metoclopramide HCl (Reglan) 5 mg Q6 IV Last administered on 09/21/16 18:12; Admin Dose 5 MG; Start 09/17/16 at 18:00 Morphine Sulfate 2 mg 2 mg Q4H PRN IV PAIN LEVEL 7-10 Last administered on 09/20 22:00; Admin Dose 2 MG; Start 09/18/16 at 12:00 Norepinephrine 250 ml @ 1.875 mls/ hr TITRATE IV ; Start 09/19/16 at 18:30 Piperacillin Sod/ Tazobactam Sod (Zosyn 2.25gm/ 50ml (Pmx)) 50 ml @ 100 mls/hr Q8 IVPB Last administered on 09/21/16 13:37; Admin Dose 100 MLS/HR; Start at 09:00 Methylprednisolone Sodium Succinate (Solu-Medrol) 40 mg Q6 IV Last administered on 09/21/16 18:12; Admin Dose 40 MG; Start 09/20/16 at 12:00 Metoclopramide HCl (Reglan) 10 mg Q6H PRN IV .FOR GASTRIC RESIDUAL > 100 ML Last administered on 09/21/16 13:34; Admin Dose 10 MG; Start 09/20/16 at 12:30 Pantoprazole (Protonix Iv) 40 mg BID@06,18 IV Last administered on 09/21/16 18 :12; Admin Dose 40 MG; Start 09/20/16 at 18:00 Metoprolol Tartrate (Lopressor) 25 mg BID PO Last administered on 09/20/16 21: 58; Admin Dose 25 MG; Start 09/20/16 at 21:00 Miscellaneous Information 1 ONCE ONCE XX ; Start 09/22/16 at 05:00; Stop at 05:01 Dextrose/Sodium Chloride 1,000 ml @ 125 mls/hr Q8H IV Last administered on 15:00; Admin Dose 125 MLS/HR; Start 09/21/16 at 15:00 Total Parenteral Nutrition (Tpn) 1,000 ml @ 60 mls/hr [id number] IV Last administered on 09/21/16 16:30; Admin Dose 60 MLS/HR; Start 09/21/16 at 16:30 Maynor Broderick DO Sep 21, 2016 18:53
--- NOTE | 2016-09-21 19:05 | CONS ---
DATE OF ADMISSION: 08/31/2016 DATE OF CONSULTATION: 09/21/2016 HISTORY OF PRESENT ILLNESS: The patient is in Intensive Care Unit. CHIEF COMPLAINT: Leakage from the gastrostomy site. PHYSICAL EXAMINATION: GENERAL: The patient is a 71-year-old white gentleman who is status post tracheostomy. He is unab le to communicate. VITAL SIGNS: Temperature 97.9, pulse is 73, respirations 19, blood pressure is 119/74. CARDIOVASCULAR: Normal heart sounds. RESPIRATORY: Normal breath sounds. ABDOMEN: Showed evidence of a G-tube in place. I am ____ 200 mL of fluid through the G-tube and I do not see any leakage at this time. CLINICAL IMPRESSION: The previously reported GE and gastrostomy site leakage is stable at this stag e. PLAN: I would recommend starting G-tube feeding 20 mL an hour and observe. Dictated By: KATELYN SILVERMAN MD NC/NTS Conf#: [id number] DID#: [id number] CC: KATELYN SILVERMAN MD;*EndCC*
--- NOTE | 2016-09-21 20:55 | RADRPT ---
PROCEDURE: Renal US. CLINICAL INDICATION: Acute kidney injury. TECHNIQUE: Multiple sonographic images of the kidneys and urinary bladder were obtained. The imag es were reviewed on a PACS workstation. COMPARISON: No prior studies are available for comparison. FINDINGS: The right kidney measures 11.3 x 4.7 x 4.6 cm. The left kidney measures 10.9 x 4.8 x 3.5 cm. There is no renal mass. There is no hydronephrosis. There is no renal calculus. Renal parenchymal thickness is normal bilaterally. Both kidneys are hyperechoic consistent with med ical renal disease. The perirenal regions are normal with no fluid collection or mass. There is a Chaudhari catheter in the bladder. IMPRESSION: 1. Bilateral hyperechoic kidneys consistent with medical renal disease. 2. No hydronephrosis. 3. Chaudhari catheter in the bladder. 4. Otherwise normal renal ultrasound. RPTAT: QQ .Carter Hogan MD, MD Date Time Electronically viewed and signed by .Carter Hogan MD, on 09/21/2016 20:55 .R/
[2016-09-22] VITALS (33 sets, daily range): BP systolic 112–146; BP diastolic 64–93; PULSE 58–108; RESP 16–30
[2016-09-22] MEDS: DEXTROSE 5%-0.45% NACL 1,000 ML IV SCH (00:46)
[2016-09-22] MEDS: morphine 2 MG INJ IV PRN (04:56)
[2016-09-22] MEDS: PANTOPRAZOLE 40 MG INJ IV SCH ×2 (05:45→17:15)
[2016-09-22] MEDS: METHYLPREDNISOLONE 40 MG INJ IV SCH ×2 (05:45→21:16)
[2016-09-22] MEDS: METOCLOPRAMIDE 10 MG INJ IV SCH ×3 (05:46→17:15)
[2016-09-22] MEDS: PIPER-TAZO 2.25 GM (PMX) 50 ML IVPB SCH ×3 (05:46→21:16)
[2016-09-22 06:30] LABS: POTASSIUM 5.3 mmol/L (3.5-5.1)
[2016-09-22 06:32] LABS: CREATININE 2.88 mg/dl (0.61-1.24)
[2016-09-22 06:33] LABS: CALCIUM 7.9 mg/dl (8.4-10.2)
--- NOTE | 2016-09-22 07:23 | CONS ---
Date/Time of Note Date/Time of Note DATE: 09/22/16 TIME: 07:20 Assessment/Plan Assessment/Plan Additional Assessment/Plan Ventilator settings; AC of 16, tidal volume 500, PEEP of 10, 50% FiO2. Next Assessment recommendations; 1. Patient admitted with sepsis and pneumonia with improved interval improvement. Next 2. Underlying severe anoxic encephalopathy patient remains unresponsive. This is his underlying mental status. 3. Renal insufficiency. 4. History of cardiac arrhythmia. 5. Status post J-tube replacement. Patient handling tube feeding well at this point. 6. Prior history of colostomy. Ventilator settings have been adjusted. Patient's assist-control rate has been maintained at 16, PEEP has been decreased to 5 and FiO2 decrease to 30%. Continue current supportive care. Patient can be transferred to telemetry unit. Overall prognosis remains poor. Consultation Date/Type/Reason Admit Date/Time Aug 31, 2016 at 14:59 Initial Consult Date 09/01/16 Type of Consultation: Pulmonary/critical care Referring Provider: MARIO ROWE 24 HR Interval Summary Free Text/Dictation Patient condition has been essentially stable. Remained hemodynamically stable. Because of underlying encephalopathy patient remains completely unresponsive. Remains ventilator dependent via tracheostomy. General examination; elderly male, currently in no distress on ventilator via tracheostomy. Exam/Review of Systems Vital Signs Vitals Vital Signs Date Time Temp Pulse Resp B/P Pulse Ox O2 Delivery O2 Flow Rate FiO2 09/22/16 06:00 67 20 119/78 100 Mechanical Ventilator 09/22/16 05:22 50 09/22/16 04:00 97.7 Intake and Output 09/21/16 09/21/16 09/22/16 15:00 23:00 07:00 Intake Total 0 ml 580 ml 790 ml Output Total 150 ml 195 ml 15 ml Balance -150 ml 385 ml 775 ml Exam HEENT examination; supple neck, no JVD. No lymphadenopathy. Patient is edentulous. Pupils are midsize and reactive to light bilaterally and equally. No neck masses. No thyromegaly. Tracheostomy in place with clean insertion site. Chest examination; diminished but clear breath sounds bilaterally. S1-S2 audible no murmurs. Regular rhythm. Abdomen examination; soft, colostomy in place. J-tube in place. Bowel sounds audible. Extremity examination; no peripheral edema. NEON PUMPER examination; patient remains unresponsive. Results Result Diagram: 09/21/16 0430 09/22/16 0545 Results 24 hrs Laboratory Tests Test 09/21/16 16:25 09/22/16 05:45 Anion Gap 19 H 16 Blood Urea Nitrogen 36 H 44 H Calcium Level 7.9 L 7.9 L Carbon Dioxide Level 18 L 21 Chloride Level 111 H 112 H Creatinine 2.82 H 2.88 H Glucose Level 117 176 Potassium Level 5.3 H 5.3 H Sodium Level 143 144 Random Vancomycin Level 12.3 Medications Medications Current Medications Collagenase (Santyl) 1 applic DAILY TOP Last administered on 09/21/16 09:00; Admin Dose 1 APPLIC; Start 09/02/16 at 11:30 Tobramycin (Tobramycin Iv Per Pharmacy) TOBRAMYCIN PER PHARMACY NOTE XX ; Start 09/06/16 at 12:30 Clotrimazole (Lotrimin Cr) 1 applic BID TOP Last administered on 09/21/16 20: 05; Admin Dose 1 APPLIC; Start 09/14/16 at 14:30 Mupirocin 1 applic 1 applic BID TOP Last administered on 09/21/16 20:05; Admin Dose 1 APPLIC; Start 09/14/16 at 21:00 Tobramycin/Sodium Chloride (Tobramycin/NS) 107.5 ml @ 103.75 mls/ hr Q48H IVPB Last administered on 09/18/16 17:11; Admin Dose 103.75 MLS/HR; Start at 18:00; Status Future Hold Amiodarone HCl (Cordarone) 200 mg BID NGT Last administered on 09/21/16 20:05 ; Admin Dose 200 MG; Start 09/17/16 at 13:30 Hydralazine HCl (Apresoline) 10 mg Q4H PRN IV ELEVATED BLOOD PRESSURE Last administered on 09/17/16 16:11; Admin Dose 10 MG; Start 09/17/16 at 16:00 Metoclopramide HCl (Reglan) 5 mg Q6 IV Last administered on 09/22/16 05:46; Admin Dose 5 MG; Start 09/17/16 at 18:00 Morphine Sulfate 2 mg 2 mg Q4H PRN IV PAIN LEVEL 7-10 Last administered on 09/22 04:56; Admin Dose 2 MG; Start 09/18/16 at 12:00 Norepinephrine 250 ml @ 1.875 mls/ hr TITRATE IV ; Start 09/19/16 at 18:30 Piperacillin Sod/ Tazobactam Sod (Zosyn 2.25gm/ 50ml (Pmx)) 50 ml @ 100 mls/hr Q8 IVPB Last administered on 09/22/16 05:46; Admin Dose 100 MLS/HR; Start at 09:00 Methylprednisolone Sodium Succinate (Solu-Medrol) 40 mg Q6 IV Last administered on 09/22/16 05:45; Admin Dose 40 MG; Start 09/20/16 at 12:00 Metoclopramide HCl (Reglan) 10 mg Q6H PRN IV .FOR GASTRIC RESIDUAL > 100 ML Last administered on 09/21/16 13:34; Admin Dose 10 MG; Start 09/20/16 at 12:30 Pantoprazole (Protonix Iv) 40 mg BID@06,18 IV Last administered on 09/22/16 05 :45; Admin Dose 40 MG; Start 09/20/16 at 18:00 Metoprolol Tartrate 25 mg 25 mg BID PO Last administered on 09/21/16 20:05; Admin Dose 25 MG; Start 09/20/16 at 21:00 Dextrose/Sodium Chloride 1,000 ml @ 40 mls/hr Q24H IV Last administered on 15:00; Admin Dose 125 MLS/HR; Start 09/21/16 at 15:00 Total Parenteral Nutrition (Tpn) 1,000 ml @ 60 mls/hr [id number] IV Last administered on 09/21/16 16:30; Admin Dose 60 MLS/HR; Start 09/21/16 at 16:30 SHAAN BUTT Sep 22, 2016 07:23
[2016-09-22] MEDS: COLLAGENASE 30 GM TUBE TOP SCH (08:03)
[2016-09-22] MEDS: AMIODARONE 200 MG TAB NGT SCH ×2 (08:39→21:34)
[2016-09-22] MEDS: METOPROLOL 25 MG TAB PO SCH ×2 (08:40→21:35)
[2016-09-22 08:54] LABS: HEMATOCRIT 21.6 % (42.0-52.0); MEAN CORPUSCULAR HEMOGLOBIN 26.2 pg (29.0-33.0); MEAN CORPUSCULAR HGB CONC 31.9 g/dl (32.0-37.0); MEAN CORPUSCULAR VOLUME 82.3 fl (82.0-101.0); MEAN PLATELET VOLUME 11.6 fl (7.4-10.4); PLATELET COUNT 237 10^3/UL (140-440); RED BLOOD COUNT 2.62 10^6/ul (4.70-6.10); RED CELL DISTRIBUTION WIDTH 18.2 % (11.5-14.5); UNCORRECTED WBC 11.9 10^3/ul (4.8-10.8); WHITE BLOOD COUNT 11.9 10^3/ul (4.8-10.8)
[2016-09-22 09:02] LABS: CONDITION 1; HEMOGLOBIN 6.9 g/dl (14.0-18.0); LH ANALYZER COMMENTS 1; SUSPECT 1
[2016-09-22] MEDS: TPN 1,000 ML IV SCH (09:03)
[2016-09-22] MEDS: MUPIROCIN 2% 22 GM OINT TOP SCH ×2 (10:04→21:18)
[2016-09-22] MEDS: CLOTRIMAZOLE 1% 30 GM CR TOP SCH ×2 (10:05→21:19)
[2016-09-22] MEDS ORDERED: TPN 1,000 ML IV SCH (10:13)
[2016-09-22 10:27] LABS: MAGNESIUM 2.1 mg/dl (1.7-2.5); PHOSPHORUS 5.2 mg/dl (2.5-4.9)
[2016-09-22 10:38] LABS: IRON 30 ug/dl (35-150)
[2016-09-22 10:49] LABS: TOTAL IRON BINDING CAPACITY 158 ug/dl (241-421)
--- NOTE | 2016-09-22 11:12 | CONS ---
DATE OF ADMISSION: 08/31/2016 DATE OF CONSULTATION: Dear Dr. Meeks: Thank you for asking me to participate in the care of this 71-year-old unfortunate man who is unable to provide history. Information obtained mostly from the hospital records. HISTORY OF PRESENT ILLNESS: The patient has been admitted here since 09/11/2016. He has a history of ventilator-dependent respiratory failure, chronic hypertension, and has been followed at the [facility]. He was brought to the emergency room with high fever and vomiting, and has since bee n placed on: 1. IV steroids/ 2. Amiodarone. 3. Vancomycin. 4. Tobramycin. 5. Metoprolol. 6. Reglan. 7. Protonix. 8. Some other p.r.n. medications. Hospital laboratory work has shown elevated BUN and creatinine. Nephrology consultation is therefor e kindly requested. The admission chest x-ray had shown bilateral interstitial lung disease, and it appears to have been unchanged, except it is worse in the right upper lobe now. The patient did have a renal ultrasound that shows bilateral hyperechoic kidney, consistent with med ical renal disease. Hospital record further reveals that the admission electrolytes are normal. BUN is 57, creatinine i s 1.92, calcium 10.6, albumin is 4. Subsequently the BUN and creatinine did improve at and 0. 157 respectively, except it started rising again on 09/18/2016 to 14 and 1.2 respectively. On 09/20 it was 28 and 2.23, and has since gone on to 44 and 2.88. The patient has had a urinalysis wh ich showed RBC 2 to 5, white cells 10 to 25 and there is moderate bacteria, 2+ hemoglobin, 2+ protei n. The respiratory woodrow is pseudomonas, and there is also a wound showing pseudomonas. Urine cult ure did show MRSA. The intake and output has been adequate except it seems to be dropping as of lat e. He has been followed by multiple specialists, including GI, cardiology, pulmonary and ID. The p atient has already had PEG, which had been leaking. Because of this, TPN has been started, and per GI recommendation the tube feeding can be resumed. The rest of the past personal and family history is not elicited at this time. REVIEW OF SYSTEMS: Not well elicited. PHYSICAL EXAMINATION: GENERAL: The patient is afebrile. VITAL SIGNS: Blood pressure hovering between 120 and 130 systolic, heart rate is 67, temperature is 97, respiration maintained on ventilator is 16. HEENT: Unremarkable. Eyes: Pale conjunctivae. Sclerae are anicteric. Nose: Nasogastric tube in place. Throat: No pharyngeal congestion. NECK: Tracheostomy in place. CHEST: Occasional rhonchi at bases. HEART: Regular rhythm, S1, S2. ABDOMEN: Slightly distended. GENITALIA: Chaudhari catheter draining urine. EXTREMITIES: No cyanosis, clubbing, edema. SKIN: Pale. IMPRESSION: 1. History of chronic respiratory failure, vent dependent. 2. Gastrointestinal bleeding with anemia. 3. Probable chronic kidney disease with acute exacerbation. 4. Staphylococcus urinary tract infection and Pseudomonas pneumonia. The patient has multiple medical problems, for which he has been followed by multiple specialists. Renal iyer speaking, the patient has had a high BUN and creatinine, which improved initially; howeve r, presently it is increasing steadily. This may be commensurate with the use of tobramycin, which is obviously nephrotoxic, and thus will have to be replaced with another alternative antibiotic. I will leave that within your hands and that that of the ID specialist. Meanwhile, present fluid dana gement should be continued, especially since he has a good urine volume. I would follow the clinica l course closely and hope that we can stabilize this patient's renal picture. Please allow me to thank you once again. Dictated By: JAMES TINSLEY/MACK Conf#: [id number] DID#: [id number]
[2016-09-22 11:23] LABS: ANISOCYTOSIS 1+; HYPOCHROMASIA 2+; LYMPHOCYTES # 0.7 10^3/ul (0.8-2.9); MONOCYTE # 0.4 10^3/ul (0.3-0.9); NEUTROPHIL # 10.8 10^3/ul (1.6-7.5)
[2016-09-22 11:24] LABS: BURR CELLS 2+
--- NOTE | 2016-09-22 12:34 | CONS ---
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 the wound culture grew carbapenemase producing kleb, enterococci and pseudo - leakage of gastric contents from GT site, now has ostomy bag - resolved - dysphagia s/p EGD and new G tube placement 09/15/2016 - infection of wound of RLE due to pseudomonas. 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 Salas- continue for now. F/u blood cx and respiratory cx (09/20/16 - pending) - Pt has multiple MDR organisms and it is impossible to cover all. We recommend covering MRSA, and bacteria in the abdominal wound and RLE wound as much as possible - Continue IV tobramycin (09/06/2016-) for pseudomonas - Check procalcitonin (09/20/16 pending) - Trend WBC (downward trending) and renal fxn (worsening) - Continue topical antimicrobials (Clotrimazole and Bactroban) to BLE rash; keep area clean and dry; consider dermasmooth; consider Dermatology consult - S[facility] for temp >100.4 - Consider Palliative Eval Problems: Consultation Date/Type/Reason Admit Date/Time Aug 31, 2016 at 14:59 Initial Consult Date 09/02/16 Type of Consultation: id Referring Provider: MARIO ROWE 24 HR Interval Summary Free Text/Dictation d/w RN. Exam/Review of Systems Vital Signs Vitals Vital Signs Date Time Temp Pulse Resp B/P Pulse Ox O2 Delivery O2 Flow Rate FiO2 09/22/16 12:00 63 09/22/16 12:00 99.0 18 119/82 99 Mechanical Ventilator 09/22/16 11:00 30 Intake and Output 09/21/16 09/21/16 09/22/16 15:00 23:00 07:00 Intake Total 0 ml 580 ml 890 ml Output Total 150 ml 195 ml 70 ml Balance -150 ml 385 ml 820 ml Exam non responsive Head: atraumatic, normocephalic Eyes: EOMI, PERRL, nl conjunctiva, nl lids, nl sclera Neck: non-tender, supple Respiratory: clear to auscultation, normal air movement Cardiovascular: nl pulses, regular rate and rhythm Results Result Diagram: 09/22/16 0545 09/22/16 0545 Results 24 hrs Laboratory Tests Test 09/21/16 16:25 09/22/16 05:45 Anion Gap 19 H 16 Blood Urea Nitrogen 36 H 44 H Calcium Level 7.9 L 7.9 L Carbon Dioxide Level 18 L 21 Chloride Level 111 H 112 H Creatinine 2.82 H 2.88 H Glucose Level 117 176 Potassium Level 5.3 H 5.3 H Sodium Level 143 144 Anisocytosis 1+ Blood Morphology Comment Hematocrit 21.6 L Hemoglobin 6.9 *L Hypochromasia 2+ Iron Level 30 L Lymphocytes # 0.7 L Lymphocytes % 6.0 L Magnesium Level 2.1 Mean Corpuscular Hemoglobin 26.2 L Mean Corpuscular Hemoglobin Concent 31.9 L Mean Corpuscular Volume 82.3 Mean Platelet Volume 11.6 H Monocytes # 0.4 Monocytes % 3.0 Neutrophils # 10.8 H Neutrophils % 91.0 H Percent Iron Saturation 19 L Phosphorus Level 5.2 H Platelet Count 237 # Random Vancomycin Level 12.3 Red Blood Count 2.62 L Red Cell Distribution Width 18.2 H Total Iron Binding Capacity 158 L White Blood Count 11.9 #H Medications Medications Current Medications Collagenase (Santyl) 1 applic DAILY TOP Last administered on 09/22/16 08:03; Admin Dose 1 APPLIC; Start 09/02/16 at 11:30 Clotrimazole (Lotrimin Cr) 1 applic BID TOP Last administered on 09/22/16 10: 05; Admin Dose 1 APPLIC; Start 09/14/16 at 14:30 Mupirocin (Bactroban) 1 applic BID TOP Last administered on 09/22/16 10:04; Admin Dose 1 APPLIC; Start 09/14/16 at 21:00 Amiodarone HCl (Cordarone) 200 mg BID NGT Last administered on 09/22/16 08:39 ; Admin Dose 200 MG; Start 09/17/16 at 13:30 Hydralazine HCl (Apresoline) 10 mg Q4H PRN IV ELEVATED BLOOD PRESSURE Last administered on 09/17/16 16:11; Admin Dose 10 MG; Start 09/17/16 at 16:00 Metoclopramide HCl (Reglan) 5 mg Q6 IV Last administered on 09/22/16 11:31; Admin Dose 5 MG; Start 09/17/16 at 18:00 Morphine Sulfate 2 mg 2 mg Q4H PRN IV PAIN LEVEL 7-10 Last administered on 09/22 04:56; Admin Dose 2 MG; Start 09/18/16 at 12:00 Norepinephrine 250 ml @ 1.875 mls/ hr TITRATE IV ; Start 09/19/16 at 18:30 Piperacillin Sod/ Tazobactam Sod (Zosyn 2.25gm/ 50ml (Pmx)) 50 ml @ 100 mls/hr Q8 IVPB Last administered on 09/22/16 05:46; Admin Dose 100 MLS/HR; Start at 09:00 Metoclopramide HCl (Reglan) 10 mg Q6H PRN IV .FOR GASTRIC RESIDUAL > 100 ML Last administered on 09/21/16 13:34; Admin Dose 10 MG; Start 09/20/16 at 12:30 Pantoprazole (Protonix Iv) 40 mg BID@06,18 IV Last administered on 09/22/16 05 :45; Admin Dose 40 MG; Start 09/20/16 at 18:00 Metoprolol Tartrate (Lopressor) 25 mg BID PO Last administered on 09/22/16 08: 40; Admin Dose 25 MG; Start 09/20/16 at 21:00 Methylprednisolone Sodium Succinate (Solu-Medrol) 40 mg Q12 IV ; Start 09/22/16 at 21:00 MARIBELL SUN MD Sep 22, 2016 12:33
--- NOTE | 2016-09-22 13:24 | PN ---
Date/Time of Note Date/Time of Note DATE: 09/22/16 TIME: 13:23 Assessment/Plan VTE Prophylaxis VTE Prophylaxis Intervention: SCD's Lines/Catheters IV Catheter Type (from Nrs): Peripheral IV Urinary Cath still in place: Yes Reason Cath still needed: urinary retention Assessment/Plan Assessment/Plan Intermittent atrial tachycardia and atrial fibrillation Frequent PACs and PVCs Preserved ejection fraction Hypotension Hematemesis Respiratory failure Encephalopathy Acute kidney injury -IV fluids as per our renal colleagues, Continue amiodarone -has a trach -pul care. Subjective 24 Hr Interval Summary Free Text/Dictation the patient iwth no cahge Exam/Review of Systems Vital Signs Vitals Vital Signs Date Time Temp Pulse Resp B/P Pulse Ox O2 Delivery O2 Flow Rate FiO2 09/22/16 12:00 63 09/22/16 12:00 99.0 18 119/82 99 Mechanical Ventilator 09/22/16 11:00 30 Intake and Output 09/21/16 09/21/16 09/22/16 15:00 23:00 07:00 Intake Total 0 ml 580 ml 890 ml Output Total 150 ml 195 ml 70 ml Balance -150 ml 385 ml 820 ml Results Result Diagram: 09/22/16 0545 09/22/16 0545 Results 24 hrs Laboratory Tests Test 09/21/16 16:25 09/22/16 05:45 Anion Gap 19 H 16 Blood Urea Nitrogen 36 H 44 H Calcium Level 7.9 L 7.9 L Carbon Dioxide Level 18 L 21 Chloride Level 111 H 112 H Creatinine 2.82 H 2.88 H Glucose Level 117 176 Potassium Level 5.3 H 5.3 H Sodium Level 143 144 Anisocytosis 1+ Blood Morphology Comment Hematocrit 21.6 L Hemoglobin 6.9 *L Hypochromasia 2+ Iron Level 30 L Lymphocytes # 0.7 L Lymphocytes % 6.0 L Magnesium Level 2.1 Mean Corpuscular Hemoglobin 26.2 L Mean Corpuscular Hemoglobin Concent 31.9 L Mean Corpuscular Volume 82.3 Mean Platelet Volume 11.6 H Monocytes # 0.4 Monocytes % 3.0 Neutrophils # 10.8 H Neutrophils % 91.0 H Percent Iron Saturation 19 L Phosphorus Level 5.2 H Platelet Count 237 # Random Vancomycin Level 12.3 Red Blood Count 2.62 L Red Cell Distribution Width 18.2 H Total Iron Binding Capacity 158 L White Blood Count 11.9 #H Medications Medications Current Medications Collagenase (Santyl) 1 applic DAILY TOP Last administered on 09/22/16 08:03; Admin Dose 1 APPLIC; Start 09/02/16 at 11:30 Clotrimazole (Lotrimin Cr) 1 applic BID TOP Last administered on 09/22/16 10: 05; Admin Dose 1 APPLIC; Start 09/14/16 at 14:30 Mupirocin (Bactroban) 1 applic BID TOP Last administered on 09/22/16 10:04; Admin Dose 1 APPLIC; Start 09/14/16 at 21:00 Amiodarone HCl (Cordarone) 200 mg BID NGT Last administered on 09/22/16 08:39 ; Admin Dose 200 MG; Start 09/17/16 at 13:30 Hydralazine HCl (Apresoline) 10 mg Q4H PRN IV ELEVATED BLOOD PRESSURE Last administered on 09/17/16 16:11; Admin Dose 10 MG; Start 09/17/16 at 16:00 Metoclopramide HCl (Reglan) 5 mg Q6 IV Last administered on 09/22/16 11:31; Admin Dose 5 MG; Start 09/17/16 at 18:00 Morphine Sulfate 2 mg 2 mg Q4H PRN IV PAIN LEVEL 7-10 Last administered on 09/22 04:56; Admin Dose 2 MG; Start 09/18/16 at 12:00 Norepinephrine 250 ml @ 1.875 mls/ hr TITRATE IV ; Start 09/19/16 at 18:30 Piperacillin Sod/ Tazobactam Sod (Zosyn 2.25gm/ 50ml (Pmx)) 50 ml @ 100 mls/hr Q8 IVPB Last administered on 09/22/16 05:46; Admin Dose 100 MLS/HR; Start at 09:00 Metoclopramide HCl (Reglan) 10 mg Q6H PRN IV .FOR GASTRIC RESIDUAL > 100 ML Last administered on 09/21/16 13:34; Admin Dose 10 MG; Start 09/20/16 at 12:30 Pantoprazole (Protonix Iv) 40 mg BID@06,18 IV Last administered on 09/22/16 05 :45; Admin Dose 40 MG; Start 09/20/16 at 18:00 Metoprolol Tartrate (Lopressor) 25 mg BID PO Last administered on 09/22/16t 08: 40; Admin Dose 25 MG; Start 09/20/16 at 21:00 Methylprednisolone Sodium Succinate (Solu-Medrol) 40 mg Q12 IV ; Start 09/22/16 at 21:00 YUSUF OWENS MD Sep 22, 2016 13:24
[2016-09-22] MEDS ORDERED: SOD CHLORIDE 0.9% 250 ML IV* ONE (14:42)
--- NOTE | 2016-09-22 14:42 | PN ---
Date/Time of Note Date/Time of Note DATE: 09/22/16 TIME: 14:40 Assessment/Plan VTE Prophylaxis VTE Prophylaxis Intervention: SCD's Lines/Catheters IV Catheter Type (from Nrs): Peripheral IV Central line still needed: Yes Urinary Cath still in place: Yes Reason Cath still needed: urinary retention Assessment/Plan Chief Complaint/Hosp Course ASSESSMENT AND PLAN: - Systemic inflammatory response syndrome with leukocytosis, possible aspiration. Continue broad-spectrum antibiotics, monitor chest x-ray. - RAYNA 2 to dehydration and SIRS, continue IV fluids . Dr Miramontes is following in nephrology consultation.. - Dysphagia, s/p J-tube placement. Patient s/p high residual and emesis. Continue Reglan. Follow-up gastroenterology recommendation. 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 Continue Protonix. Dr. Pryor is following the patient in gastroenterology consultation. Continue IV fluids. - Anemia 2 to GI bleed, monitor H&H, transfuse as needed. - Dehydration secondary to vomiting, resolved. - S/p sepsis with Staph bacteremia [address] Godfrey is following in ID consultation. Continue abx per ID. 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 - Ventilator-dependent respiratory failure with tracheostomy. Dr. Morrison is following from pulmonology standpoint. Continue bronchodilators and pulmonary toilet. - Chronic obstructive pulmonary disease. - Chronic Chaudhari catheter. - Colostomy - Hypertension, metoprolol and hydralazine as needed. - Bedbound status. - Acute kidney injury, resolved. - MRSA UTI , s/p treatment. - MRSA of nares. Continue Bactroban. - Intermittent atrial tachycardia. Dr. Broderick is is following in cardiology consultation, continue telemetry monitoring. Monitor electrolytes. Continue sequential compression device for deep venous thrombosis prophylaxis and Protonix for peptic ulcer disease prophylaxis. Further recommendations based on clinical course. Plan of care discussed with Dr. Meeks. Problems: Subjective 24 Hr Interval Summary Free Text/Dictation Patient restarted back on the G-tube feeding, white blood cells are trending down, hemoglobin is 6.9, will transfuse 2 units of packed red blood cells. Exam/Review of Systems Vital Signs Vitals Vital Signs Date Time Temp Pulse Resp B/P Pulse Ox O2 Delivery O2 Flow Rate FiO2 09/22/16 12:00 63 09/22/16 12:00 99.0 18 119/82 99 Mechanical Ventilator 09/22/16 11:00 30 Intake and Output 09/21/16 09/21/16 09/22/16 15:00 23:00 07:00 Intake Total 0 ml 580 ml 890 ml Output Total 150 ml 195 ml 70 ml Balance -150 ml 385 ml 820 ml Exam GENERAL: Well-developed, cachectic gentleman currently obtunded on ventilator support via tracheostomy. HEENT: Pupils equal, round, reactive to light and accommodation. NECK: Supple, no cervical lymphadenopathy, no thyromegaly. Tracheostomy the base of the neck with small amount of secretions. LUNGS: Rhonchi bilaterally, slightly diminished at the bases. CARDIOVASCULAR: Normal S1, S2. No murmurs, gallops, clicks, rubs noted. ABDOMEN: Flat, soft, nondistended, nontender. Bowel sounds present. Patient has left lower quadrant colostomy with pink, moist stoma. G-tube. GENITOURINARY: The patient also has a Chaudhari catheter. EXTREMITIES: No edema, clubbing, cyanosis. Pulses equal bilaterally 2+. Lower extremities contracted. SKIN: There is no rash, petechiae noted. The patient has a sacral decubitus ulcer stage II. NEUROLOGIC: Patient does not follow any commands. Results Result Diagram: 09/22/16 0545 09/22/16 0545 Results 24 hrs Laboratory Tests Test 09/21/16 16:25 09/22/16 05:45 Anion Gap 19 H 16 Blood Urea Nitrogen 36 H 44 H Calcium Level 7.9 L 7.9 L Carbon Dioxide Level 18 L 21 Chloride Level 111 H 112 H Creatinine 2.82 H 2.88 H Glucose Level 117 176 Potassium Level 5.3 H 5.3 H Sodium Level 143 144 Anisocytosis 1+ Blood Morphology Comment Hematocrit 21.6 L Hemoglobin 6.9 *L Hypochromasia 2+ Iron Level 30 L Lymphocytes # 0.7 L Lymphocytes % 6.0 L Magnesium Level 2.1 Mean Corpuscular Hemoglobin 26.2 L Mean Corpuscular Hemoglobin Concent 31.9 L Mean Corpuscular Volume 82.3 Mean Platelet Volume 11.6 H Monocytes # 0.4 Monocytes % 3.0 Neutrophils # 10.8 H Neutrophils % 91.0 H Percent Iron Saturation 19 L Phosphorus Level 5.2 H Platelet Count 237 # Random Vancomycin Level 12.3 Red Blood Count 2.62 L Red Cell Distribution Width 18.2 H Total Iron Binding Capacity 158 L White Blood Count 11.9 #H Medications Medications Current Medications Collagenase (Santyl) 1 applic DAILY TOP Last administered on 09/22/16 08:03; Admin Dose 1 APPLIC; Start 09/02/16 at 11:30 Clotrimazole (Lotrimin Cr) 1 applic BID TOP Last administered on 09/22/16 10: 05; Admin Dose 1 APPLIC; Start 09/14/16 at 14:30 Mupirocin (Bactroban) 1 applic BID TOP Last administered on 09/22/16 10:04; Admin Dose 1 APPLIC; Start 09/14/16 at 21:00 Amiodarone HCl (Cordarone) 200 mg BID NGT Last administered on 09/22/16 08:39 ; Admin Dose 200 MG; Start 09/17/16 at 13:30 Hydralazine HCl (Apresoline) 10 mg Q4H PRN IV ELEVATED BLOOD PRESSURE Last administered on 09/17/16 16:11; Admin Dose 10 MG; Start 09/17/16 at 16:00 Metoclopramide HCl (Reglan) 5 mg Q6 IV Last administered on 09/22/16 11:31; Admin Dose 5 MG; Start 09/17/16 at 18:00 Morphine Sulfate 2 mg 2 mg Q4H PRN IV PAIN LEVEL 7-10 Last administered on 09/22 04:56; Admin Dose 2 MG; Start 09/18/16 at 12:00 Norepinephrine 250 ml @ 1.875 mls/ hr TITRATE IV ; Start 09/19/16 at 18:30 Piperacillin Sod/ Tazobactam Sod (Zosyn 2.25gm/ 50ml (Pmx)) 50 ml @ 100 mls/hr Q8 IVPB Last administered on 09/22/16 05:46; Admin Dose 100 MLS/HR; Start at 09:00 Metoclopramide HCl (Reglan) 10 mg Q6H PRN IV .FOR GASTRIC RESIDUAL > 100 ML Last administered on 09/21/16 13:34; Admin Dose 10 MG; Start 09/20/16 at 12:30 Pantoprazole (Protonix Iv) 40 mg BID@06,18 IV Last administered on 09/22/16 05 :45; Admin Dose 40 MG; Start 09/20/16 at 18:00 Metoprolol Tartrate (Lopressor) 25 mg BID PO Last administered on 09/22/16 08: 40; Admin Dose 25 MG; Start 09/20/16 at 21:00 Methylprednisolone Sodium Succinate (Solu-Medrol) 40 mg Q12 IV ; Start 09/22/16 at 21:00 AMY MORAN Sep 22, 2016 14:42
[2016-09-22 15:56] LABS: ADD UMIC YES; URINE BILIRUBIN (Dip) NEGATIVE (NEGATIVE); URINE BLOOD (Dip) TRACE (NEGATIVE); URINE COLOR LT. YELLOW (YELLOW); URINE KETONES (Dip) NEGATIVE (NEGATIVE); URINE LEUKOCYTE ESTERASE (Dip) NEGATIVE (NEGATIVE); URINE NITRITE (Dip) NEGATIVE (NEGATIVE); URINE TOTAL PROTEIN (Dip) TRACE (NEGATIVE); URINE UROBILINOGEN (Dip) 0.2 E.U./dL (0.1-1.0)
[2016-09-22 16:10] LABS: BACTERIA,URINE FEW
[2016-09-22 16:11] LABS: URIC ACID CRYSTALS,URINE MANY
[2016-09-22] MEDS: SOD FERRIC GLUC COMPLX 125 MG in SOD CHLORIDE 0.9% 100 ML IVPB SCH (16:22)
[2016-09-22] MEDS ORDERED: TOBRAMYCIN IV PER PHARMACY XX SCH ×2 (17:00→17:30)
--- NOTE | 2016-09-22 17:49 | PN ---
DATE: HISTORY OF PRESENT ILLNESS: The patient seen because of the leakage from the gastrostomy site. The patient had a PEG placed recently after it was discontinued because of the large gastrostomy ulcer, and because of aspiration, he was transferred to the ICU. PHYSICAL EXAMINATION: The patient is lethargic, nonverbal. Gastrostomy site appears to be clean, a nd upon discussion with nursing staff, the patient is tolerating 20 mL of feeding through the G-tube per hour. LABORATORY WORKUP: Hemoglobin 6.9. This needs to be fixed by transfusion. CLINICAL IMPRESSION: The patient seems to be tolerating gastrostomy tube feeding. PLAN: Recommend advance the feeding and increase the feeding gradually. Dictated By: KATELYN FERRARI/MACK Conf#: [id number] DID#: [id number]
[2016-09-22] MEDS ORDERED: VANCOMYCIN 1 GM in NS 250 ML IVPB SCH (18:30)
[2016-09-23] VITALS (27 sets, daily range): BP systolic 123–166; BP diastolic 77–111; PULSE 50–71; RESP 17–25
[2016-09-23] MEDS: METOCLOPRAMIDE 10 MG INJ IV SCH ×4 (00:33→17:21)
[2016-09-23] MEDS: PANTOPRAZOLE 40 MG INJ IV SCH ×2 (06:01→17:21)
[2016-09-23] MEDS: PIPER-TAZO 2.25 GM (PMX) 50 ML IVPB SCH ×2 (06:01→13:57)
[2016-09-23 06:13] LABS: POTASSIUM 5.3 mmol/L (3.5-5.1)
[2016-09-23 06:16] LABS: CREATININE 3.02 mg/dl (0.61-1.24)
[2016-09-23 06:17] LABS: CALCIUM 8.3 mg/dl (8.4-10.2)
[2016-09-23 06:23] LABS: PHOSPHORUS 3.8 mg/dl (2.5-4.9)
--- NOTE | 2016-09-23 08:36 | CONS ---
Date/Time of Note Date/Time of Note DATE: 09/23/16 TIME: 08:34 Assessment/Plan Assessment/Plan Additional Assessment/Plan Ventilator settings; assist control 16, tidal volume 500, PEEP of 5, 30% FiO2. Assessment and recommendation; next 1. Patient admitted with sepsis due to pneumonia with clinical improvement. 2. History of severe anoxic encephalopathy. Remains ventilator dependent. 3. Renal insufficiency. 4. History of cardiac arrhythmia. 5. History of colostomy. 6. History of J-tube replacement. Continue current supportive care. Overall prognosis remains very poor. Patient can be transferred to telemetry unit or transfer back to [facility] for continued treatment. Consultation Date/Type/Reason Admit Date/Time Aug 31, 2016 at 14:59 Initial Consult Date 09/01/16 Type of Consultation: Pulmonary/critical care Referring Provider: MARIO ROWE 24 HR Interval Summary Free Text/Dictation Patient condition remains unchanged. Remains unresponsive due to anoxic enthesopathy. Remains ventilator dependent. Patient however is improving hemodynamically, not requiring any further pressor support. General examination; elderly male, on ventilator via tracheostomy unresponsive. Currently in no distress. Exam/Review of Systems Vital Signs Vitals Vital Signs Date Time Temp Pulse Resp B/P Pulse Ox O2 Delivery O2 Flow Rate FiO2 09/23/16 07:00 64 24 144/90 98 Mechanical Ventilator Trach Collar 09/23/16 05:05 30 09/23/16 04:00 97.7 Intake and Output 09/22/16 09/22/16 09/23/16 15:00 23:00 07:00 Intake Total 540 ml 410 ml 500 ml Output Total 295 ml 225 ml 310 ml Balance 245 ml 185 ml 190 ml Exam HEENT examination; supple neck, no JVD. No lymphadenopathy. Tracheostomy in place with clean insertion site. Pupils are small bilaterally. Patient is edentulous. Chest examination; diminished breath sound bilaterally. S1-S2 audible, no murmurs. Regular rhythm. Abdomen examination; soft, colostomy placed. G-tube in place. Bowel sounds audible. No organomegaly felt. Extremity examination; no peripheral edema. FLOWER CHENILLER examination; patient unresponsive. Results Result Diagram: 09/22/16 0545 09/23/16 0519 Results 24 hrs Laboratory Tests Test 09/22/16 15:30 09/23/16 05:19 Urine Amorphous Urates MODERATE Urine Bacteria FEW Urine Bilirubin NEGATIVE Urine Clarity CLOUDY H Urine Color LT. YELLOW Urine Eosinophils % 0.0 Urine Epithelial Cells FEW Urine Glucose 0.1% H Urine Granular Casts FEW Urine Hemoglobin TRACE Urine Ketones NEGATIVE Urine Leukocyte Esterase NEGATIVE Urine Microscopic RBC 5-10 Urine Microscopic WBC 2-5 Urine Nitrite NEGATIVE Urine Osmolality 415 Urine Random Sodium 81 Urine Specific [place] 1.020 Urine Total Protein TRACE Urine Uric Acid Crystals MANY Urine Urobilinogen 0.2 E.U./dL Urine Yeast FEW Urine pH 5.0 Anion Gap 17 H Blood Urea Nitrogen 53 H Calcium Level 8.3 L Carbon Dioxide Level 20 L Chloride Level 114 H Creatinine 3.02 H Glucose Level 145 Magnesium Level 2.0 Phosphorus Level 3.8 Potassium Level 5.3 H Sodium Level 146 H Medications Medications Current Medications Collagenase (Santyl) 1 applic DAILY TOP Last administered on 09/22/16 08:03; Admin Dose 1 APPLIC; Start 09/02/16 at 11:30 Clotrimazole (Lotrimin Cr) 1 applic BID TOP Last administered on 09/22/16 21: 19; Admin Dose 1 APPLIC; Start 09/14/16 at 14:30 Mupirocin (Bactroban) 1 applic BID TOP Last administered on 09/22/16 21:18; Admin Dose 1 APPLIC; Start 09/14/16 at 21:00 Amiodarone HCl (Cordarone) 200 mg BID NGT Last administered on 09/22/16 21:34 ; Admin Dose 200 MG; Start 09/17/16 at 13:30 Hydralazine HCl (Apresoline) 10 mg Q4H PRN IV ELEVATED BLOOD PRESSURE Last administered on 09/17/16 16:11; Admin Dose 10 MG; Start 09/17/16 at 16:00 Metoclopramide HCl (Reglan) 5 mg Q6 IV Last administered on 09/23/16 06:01; Admin Dose 5 MG; Start 09/17/16 at 18:00 Morphine Sulfate 2 mg 2 mg Q4H PRN IV PAIN LEVEL 7-10 Last administered on 09/22 04:56; Admin Dose 2 MG; Start 09/18/16 at 12:00 Norepinephrine 250 ml @ 1.875 mls/ hr TITRATE IV ; Start 09/19/16 at 18:30 Piperacillin Sod/ Tazobactam Sod (Zosyn 2.25gm/ 50ml (Pmx)) 50 ml @ 100 mls/hr Q8 IVPB Last administered on 09/23/16 06:01; Admin Dose 100 MLS/HR; Start at 09:00 Metoclopramide HCl (Reglan) 10 mg Q6H PRN IV .FOR GASTRIC RESIDUAL > 100 ML Last administered on 09/21/16 13:34; Admin Dose 10 MG; Start 09/20/16 at 12:30 Pantoprazole (Protonix Iv) 40 mg BID@06,18 IV Last administered on 09/23/16 06 :01; Admin Dose 40 MG; Start 09/20/16 at 18:00 Metoprolol Tartrate (Lopressor) 25 mg BID PO Last administered on 09/22/16 21: 35; Admin Dose 25 MG; Start 09/20/16 at 21:00 Methylprednisolone Sodium Succinate 40 mg 40 mg Q12 IV Last administered on 21:16; Admin Dose 40 MG; Start 09/22/16 at 21:00 Ferric Sodium Gluconate Complex/ Sodium Chloride (Ferrlecit/NS) 110 ml @ 100 mls/hr Q24H IVPB Last administered on 09/22/16 16:22; Admin Dose 100 MLS/HR; Start 09/22/16 at 16:30; Stop 09/24/16 at 17:35 Tobramycin (Tobramycin Iv Per Pharmacy) PER PHARMACY DOSING NOTE XX ; Start at 17:30 SHAAN BUTT Sep 23, 2016 08:36
[2016-09-23 08:40] LABS: HEMATOCRIT 28.4 % (42.0-52.0); HEMOGLOBIN 9.5 g/dl (14.0-18.0); LYMPHOCYTES # 0.7 10^3/ul (0.8-2.9); LYMPHOCYTES % 7.3 % (15.0-51.0); MEAN CORPUSCULAR HEMOGLOBIN 26.6 pg (29.0-33.0); MEAN CORPUSCULAR HGB CONC 33.5 g/dl (32.0-37.0); MEAN CORPUSCULAR VOLUME 79.6 fl (82.0-101.0); MONOCYTE # 0.7 10^3/ul (0.3-0.9); MONOCYTES % 6.8 % (0.0-11.0); NEUTROPHIL # 8.6 10^3/ul (1.6-7.5); NEUTROPHILS % 85.1 % (39.0-77.0); NUCLEATED RED BLOOD CELLS% 0.2 /100WBC (0.0-0.0); PLATELET COUNT 239 10^3/UL (140-415); RED BLOOD COUNT 3.57 10^6/ul (4.70-6.10); RED CELL DISTRIBUTION WIDTH 17.7 % (11.5-14.5); WHITE BLOOD COUNT 10.1 10^3/ul (4.8-10.8)
[2016-09-23] MEDS: AMIODARONE 200 MG TAB NGT SCH ×2 (09:05→21:00)
[2016-09-23] MEDS: MUPIROCIN 2% 22 GM OINT TOP SCH ×2 (09:05→21:07)
[2016-09-23] MEDS: METHYLPREDNISOLONE 40 MG INJ IV SCH ×2 (09:05→21:06)
[2016-09-23] MEDS: METOPROLOL 25 MG TAB PO SCH ×2 (09:05→21:00)
[2016-09-23] MEDS: CLOTRIMAZOLE 1% 30 GM CR TOP SCH ×2 (09:06→21:07)
--- NOTE | 2016-09-23 10:44 | CONS ---
Date/Time of Note Date/Time of Note DATE: 09/23/16 TIME: 10:38 Assessment/Plan Assessment/Plan Chief Complaint/Hosp Course assessment/impression - Acute on chronic respiratory failure--likely due to central airway obstruction from aspirated tube feeds- resolved - High residuals with probable gastroparesis per GI - on reglan; ? 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 the wound culture grew carbapenemase producing kleb, enterococci and pseudo - leakage of gastric contents from GT site, now has ostomy bag - resolved - dysphagia s/p EGD and new G tube placement 09/15/2016 - infection of wound of RLE due to pseudomonas. 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 Salas- continue for now. DC Vanco. Consider dc Pip/tazo soon depending on final respiratory cx. - Pt has multiple MDR organisms and it is impossible to cover all. We recommend covering MRSA, and bacteria in the abdominal wound and RLE wound as much as possible - Continue IV tobramycin (09/06/2016-) for pseudomonas - Check procalcitonin (09/20/16 pending) - Trend WBC (normalized) and renal fxn (worsening) - Continue topical antimicrobials (Clotrimazole and Bactroban) to BLE rash; keep area clean and dry - Sage Cx for temp >100.4 - Consider Palliative Care Eval - Plan d/w ORDER WORKER and later with Dr. Miramontes and Mario GENERATION MECHANIC HELPER - Above d/w Dr. Tang - Critical care time spent: 40 minutes Problems: Consultation Date/Type/Reason Admit Date/Time Aug 31, 2016 at 14:59 Initial Consult Date 09/02/16 Type of Consultation: Infectious Disease Referring Provider: MARIO ROWE 24 HR Interval Summary Free Text/Dictation Afebrile, on telemetry status waiting for telemetry bed, and tolerating GT feeds with no recent BM per [facility]. S/p 2 units PRBC yesterday with appropriate response. Pt remains non-communicative d/t chronic encephalopathy. Subjective hx not possible: pt non-verbal Exam/Review of Systems Vital Signs Vitals Vital Signs Date Time Temp Pulse Resp B/P Pulse Ox O2 Delivery O2 Flow Rate FiO2 09/23/16 08:00 97.8 70 20 145/87 98 Mechanical Ventilator 09/23/16 08:00 60 Intake and Output 09/22/16 09/22/16 09/23/16 15:00 23:00 07:00 Intake Total 540 ml 410 ml 500 ml Output Total 295 ml 225 ml 310 ml Balance 245 ml 185 ml 190 ml Exam Constitutional: frail, other (non-communicative; chronically debilitated, cachectic ) Head: atraumatic, normocephalic, other (temporal wasting noted) Neck: other (trach midline) Respiratory: Diminished breath sounds. No wheezing. Cardiovascular: nl pulses, regular rate and rhythm Gastrointestinal: bowel sounds, other (colostomy intact - stoma pink/no stool; NGT to sxn with no output; G tube with tube feeds intact), soft, distended Genitourinary - Male: other (vincent cath intact with clear yellow urine) Musculoskeletal: muscle weakness Extremities: normal pulses, other (bilateral foot drop noted), trace edema R>L , contracted No clubbing, No cyanosis Neurological: unresponsive Skin: other (RLE posterior lateral dressing c/d/i); few scars noted from prior rash BLE medially, R>L Results Respiratory Culture 09/20/16: RESPIRATORY CULTURE Preliminary Organism 1 ACINETOBACTER BAUMANNII QUANTITY 3+ Organism 2 PSEUDOMONAS AERUGINOSA QUANTITY 3+ Organism 3 GRAM NEGATIVE TAISHA QUANTITY 1+ ACINETOBACTER BAUMANNII: Multi drug resistant organism PHONED TO [facility],ICU, DONAL,PHARM, AND A COPY TO AT 0904 09/23/2016 BY JV. AYLEEN HORNER M.I.[facility] M.I.[facility] RX --------- --- --------- --- AMIKACIN R <=2 S AZTREONAM R CEFEPIME >=64 R CEFTAZIDIME >=64 R >=64 R CIPROFLOXACIN >=4 R 1 S GENTAMICIN >=16 R <=1 S IMIPENEM >=16 R 2 S LEVOFLOXACIN >=8 R 4 I TOBRAMYCIN >=16 R <=1 S TRIMETHOPRIM/SULFAMETHOXAZOLE <=20 S PIPERACILLIN/TAZOBACTAM >=128 R R Result Diagram: 09/23/1618 09/23/16518 Results 24 hrs Laboratory Tests Test 09/22/16 15:30 09/23/16 05:19 09/23/16 08:18 Urine Amorphous Urates MODERATE Urine Bacteria FEW Urine Bilirubin NEGATIVE Urine Clarity CLOUDY H Urine Color LT. YELLOW Urine Eosinophils % 0.0 Urine Epithelial Cells FEW Urine Glucose 0.1% H Urine Granular Casts FEW Urine Hemoglobin TRACE Urine Ketones NEGATIVE Urine Leukocyte Esterase NEGATIVE Urine Microscopic RBC 5-10 Urine Microscopic WBC 2-5 Urine Nitrite NEGATIVE Urine Osmolality 415 Urine Random Sodium 81 Urine Specific [place] 1.020 Urine Total Protein TRACE Urine Uric Acid Crystals MANY Urine Urobilinogen 0.2 E.U./dL Urine Yeast FEW Urine pH 5.0 Anion Gap 17 H Blood Urea Nitrogen 53 H Calcium Level 8.3 L Carbon Dioxide Level 20 L Chloride Level 114 H Creatinine 3.02 H Glucose Level 145 Magnesium Level 2.0 Phosphorus Level 3.8 Potassium Level 5.3 H Random Tobramycin Level 0.9 Sodium Level 146 H Basophils # 0.0 Basophils % 0.0 Eosinophils # 0.0 Eosinophils % 0.0 Hematocrit 28.4 #L Hemoglobin 9.5 #L Lymphocytes # 0.7 L Lymphocytes % 7.3 L Mean Corpuscular Hemoglobin 26.6 L Mean Corpuscular Hemoglobin Concent 33.5 Mean Corpuscular Volume 79.6 L Mean Platelet Volume 12.0 H Monocytes # 0.7 Monocytes % 6.8 Neutrophils # 8.6 H Neutrophils % 85.1 H Nucleated Red Blood Cells # 0.0 Nucleated Red Blood Cells % 0.2 H Platelet Count 239 # Red Blood Count 3.57 #L Red Cell Distribution Width 17.7 H White Blood Count 10.1 Medications Medications Current Medications Collagenase (Santyl) 1 applic DAILY TOP Last administered on 09/22/16 08:03; Admin Dose 1 APPLIC; Start 09/02/16 at 11:30 Clotrimazole (Lotrimin Cr) 1 applic BID TOP Last administered on 09/23/16 09: 06; Admin Dose 1 APPLIC; Start 09/14/16 at 14:30 Mupirocin (Bactroban) 1 applic BID TOP Last administered on 09/23/16 09:05; Admin Dose 1 APPLIC; Start 09/14/16 at 21:00 Amiodarone HCl (Cordarone) 200 mg BID NGT Last administered on 09/23/16 09:05 ; Admin Dose 200 MG; Start 09/17/16 at 13:30 Hydralazine HCl (Apresoline) 10 mg Q4H PRN IV ELEVATED BLOOD PRESSURE Last administered on 09/17/16 16:11; Admin Dose 10 MG; Start 09/17/16 at 16:00 Metoclopramide HCl (Reglan) 5 mg Q6 IV Last administered on 09/23/16 06:01; Admin Dose 5 MG; Start 09/17/16 at 18:00 Morphine Sulfate 2 mg 2 mg Q4H PRN IV PAIN LEVEL 7-10 Last administered on 09/22 04:56; Admin Dose 2 MG; Start 09/18/16 at 12:00 Norepinephrine 250 ml @ 1.875 mls/ hr TITRATE IV ; Start 09/19/16 at 18:30 Piperacillin Sod/ Tazobactam Sod (Zosyn 2.25gm/ 50ml (Pmx)) 50 ml @ 100 mls/hr Q8 IVPB Last administered on 09/23/16 06:01; Admin Dose 100 MLS/HR; Start at 09:00 Metoclopramide HCl (Reglan) 10 mg Q6H PRN IV .FOR GASTRIC RESIDUAL > 100 ML Last administered on 09/21/16 13:34; Admin Dose 10 MG; Start 09/20/16 at 12:30 Pantoprazole (Protonix Iv) 40 mg BID@06,18 IV Last administered on 09/23/16 06 :01; Admin Dose 40 MG; Start 09/20/16 at 18:00 Metoprolol Tartrate (Lopressor) 25 mg BID PO Last administered on 09/23/16 09: 05; Admin Dose 25 MG; Start 09/20/16 at 21:00 Methylprednisolone Sodium Succinate 40 mg 40 mg Q12 IV Last administered on 09:05; Admin Dose 40 MG; Start 09/22/16 at 21:00 Ferric Sodium Gluconate Complex/ Sodium Chloride (Ferrlecit/NS) 110 ml @ 100 mls/hr Q24H IVPB Last administered on 09/22/16 16:22; Admin Dose 100 MLS/HR; Start 09/22/16 at 16:30; Stop 09/24/16 at 17:35 Tobramycin (Tobramycin Iv Per Pharmacy) PER PHARMACY DOSING NOTE XX ; Start at 17:30 Procedures Procedures CXR 09/21/16: 1. Chronic patchy infiltrates in the right upper lobe, unchanged. 2. Overinflated lungs. KO LOVING GENERATION MECHANIC HELPER Sep 23, 2016 10:44
[2016-09-23] MEDS: COLLAGENASE 30 GM TUBE TOP SCH (12:19)
--- NOTE | 2016-09-23 12:25 | CONS ---
Date/Time of Note Date/Time of Note DATE: 09/23/16 TIME: 12:24 Assessment/Plan Assessment/Plan Additional Assessment/Plan Intermittent atrial tachycardia and atrial fibrillation Frequent PACs and PVCs Preserved ejection fraction Hypotension Hematemesis Respiratory failure Encephalopathy Acute kidney injury -Patient remains in sinus rhythm, decrease amiodarone to daily over the next 1- 2 days. Consultation Date/Type/Reason Admit Date/Time Aug 31, 2016 at 14:59 Initial Consult Date 09/02/16 Type of Consultation: cv Referring Provider: MARIO ROWE 24 HR Interval Summary Free Text/Dictation Patient seen and examined Exam/Review of Systems Vital Signs Vitals Vital Signs Date Time Temp Pulse Resp B/P Pulse Ox O2 Delivery O2 Flow Rate FiO2 09/23/16 11:40 59 17 99 30 09/23/16 08:00 97.8 145/87 Mechanical Ventilator Intake and Output 09/22/16 09/22/16 09/23/16 15:00 23:00 07:00 Intake Total 540 ml 410 ml 500 ml Output Total 295 ml 225 ml 310 ml Balance 245 ml 185 ml 190 ml Exam No apparent distress, no response to verbal stimuli Neck: other (Trach) Respiratory: other (Coarse breath sounds bilaterally, no wheezing) Cardiovascular: other (S1-S2 heard), regular rate and rhythm Gastrointestinal: bowel sounds, other (No grimacing with palpation), soft Extremities: edema (Trace) Results Result Diagram: 09/23/16 0818 09/23/16 0519 Results 24 hrs Laboratory Tests Test 09/22/16 15:30 09/23/16 05:19 09/23/16 08:18 Urine Amorphous Urates MODERATE Urine Bacteria FEW Urine Bilirubin NEGATIVE Urine Clarity CLOUDY H Urine Color LT. YELLOW Urine Eosinophils % 0.0 Urine Epithelial Cells FEW Urine Glucose 0.1% H Urine Granular Casts FEW Urine Hemoglobin TRACE Urine Ketones NEGATIVE Urine Leukocyte Esterase NEGATIVE Urine Microscopic RBC 5-10 Urine Microscopic WBC 2-5 Urine Nitrite NEGATIVE Urine Osmolality 415 Urine Random Sodium 81 Urine Specific [place] 1.020 Urine Total Protein TRACE Urine Uric Acid Crystals MANY Urine Urobilinogen 0.2 E.U./dL Urine Yeast FEW Urine pH 5.0 Anion Gap 17 H Blood Urea Nitrogen 53 H Calcium Level 8.3 L Carbon Dioxide Level 20 L Chloride Level 114 H Creatinine 3.02 H Glucose Level 145 Magnesium Level 2.0 Phosphorus Level 3.8 Potassium Level 5.3 H Random Tobramycin Level 0.9 Sodium Level 146 H Basophils # 0.0 Basophils % 0.0 Eosinophils # 0.0 Eosinophils % 0.0 Hematocrit 28.4 #L Hemoglobin 9.5 #L Lymphocytes # 0.7 L Lymphocytes % 7.3 L Mean Corpuscular Hemoglobin 26.6 L Mean Corpuscular Hemoglobin Concent 33.5 Mean Corpuscular Volume 79.6 L Mean Platelet Volume 12.0 H Monocytes # 0.7 Monocytes % 6.8 Neutrophils # 8.6 H Neutrophils % 85.1 H Nucleated Red Blood Cells # 0.0 Nucleated Red Blood Cells % 0.2 H Platelet Count 239 # Red Blood Count 3.57 #L Red Cell Distribution Width 17.7 H White Blood Count 10.1 Medications Medications Current Medications Collagenase (Santyl) 1 applic DAILY TOP Last administered on 09/23/16 12:19; Admin Dose 1 APPLIC; Start 09/02/16 at 11:30 Clotrimazole (Lotrimin Cr) 1 applic BID TOP Last administered on 09/23/16 09: 06; Admin Dose 1 APPLIC; Start 09/14/16 at 14:30 Mupirocin (Bactroban) 1 applic BID TOP Last administered on 09/23/16 09:05; Admin Dose 1 APPLIC; Start 09/14/16 at 21:00 Amiodarone HCl (Cordarone) 200 mg BID NGT Last administered on 09/23/16 09:05 ; Admin Dose 200 MG; Start 09/17/16 at 13:30 Hydralazine HCl (Apresoline) 10 mg Q4H PRN IV ELEVATED BLOOD PRESSURE Last administered on 09/17/16 16:11; Admin Dose 10 MG; Start 09/17/16 at 16:00 Metoclopramide HCl (Reglan) 5 mg Q6 IV Last administered on 09/23/16 12:19; Admin Dose 5 MG; Start 09/17/16 at 18:00 Morphine Sulfate 2 mg 2 mg Q4H PRN IV PAIN LEVEL 7-10 Last administered on 09/22 04:56; Admin Dose 2 MG; Start 09/18/16 at 12:00 Norepinephrine 250 ml @ 1.875 mls/ hr TITRATE IV ; Start 09/19/16 at 18:30 Piperacillin Sod/ Tazobactam Sod (Zosyn 2.25gm/ 50ml (Pmx)) 50 ml @ 100 mls/hr Q8 IVPB Last administered on 09/23/16 06:01; Admin Dose 100 MLS/HR; Start at 09:00 Metoclopramide HCl (Reglan) 10 mg Q6H PRN IV .FOR GASTRIC RESIDUAL > 100 ML Last administered on 09/21/16 13:34; Admin Dose 10 MG; Start 09/20/16 at 12:30 Pantoprazole (Protonix Iv) 40 mg BID@06,18 IV Last administered on 09/23/16 06 :01; Admin Dose 40 MG; Start 09/20/16 at 18:00 Metoprolol Tartrate (Lopressor) 25 mg BID PO Last administered on 09/23/16 09: 05; Admin Dose 25 MG; Start 09/20/16 at 21:00 Methylprednisolone Sodium Succinate 40 mg 40 mg Q12 IV Last administered on 09:05; Admin Dose 40 MG; Start 09/22/16 at 21:00 Ferric Sodium Gluconate Complex/ Sodium Chloride (Ferrlecit/NS) 110 ml @ 100 mls/hr Q24H IVPB Last administered on 09/22/16 16:22; Admin Dose 100 MLS/HR; Start 09/22/16 at 16:30; Stop 09/24/16 at 17:35 Tobramycin PER PHARMACY DOSING NOTE XX ; Start 09/22/16 at 17:30 Tobramycin/Sodium Chloride (Tobramycin/NS) 52 ml @ 104 mls/hr ONCE IVPB ; Start 09/23/16 at 12:30; Stop 09/23/16 at 18:00 Maynor Broderick DO Sep 23, 2016 12:25
[2016-09-23] MEDS ORDERED: TOBRAMYCIN 80 MG in SOD CHLORIDE 0.9% 50 ML IVPB SCH (12:30)
[2016-09-23] MEDS ORDERED: FUROSEMIDE 40 MG INJ IV ONE (13:30)
[2016-09-23] MEDS ORDERED: DEXTROSE 5%-0.45% NACL 1,000 ML IV SCH (15:30)
[2016-09-23] MEDS ORDERED: DOCUSATE SODIUM 10 MG/ML (10ML CUP) GTB PRN (15:30)
--- NOTE | 2016-09-23 15:33 | PN ---
Date/Time of Note Date/Time of Note DATE: 09/23/16 TIME: 15:32 Assessment/Plan VTE Prophylaxis VTE Prophylaxis Intervention: other Lines/Catheters IV Catheter Type (from [facility] Saline Lock Urinary Cath still in place: Yes Reason Cath still needed: urinary retention Assessment/Plan Assessment/Plan - Systemic inflammatory response syndrome with leukocytosis, possible aspiration. Continue broad-spectrum antibiotics, monitor chest x-ray. - RAYNA 2 to dehydration and SIRS, continue IV fluids . Dr Miramontes is following in nephrology consultation.. - Dysphagia, s/p J-tube placement. Patient s/p high residual and emesis. Continue Reglan. Follow-up gastroenterology recommendation. 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 Continue Protonix. - Dr. Pryor is following the patient in gastroenterology consultation. Continue IV fluids. - Anemia 2 to GI bleed, monitor H&H, transfuse as needed. - Dehydration secondary to vomiting, resolved. - S/p sepsis with Staph bacteremia 2 UTI and HCAP. - per Dr Godfrey in ID consultation. Continue abx per ID. 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 - Ventilator-dependent respiratory failure with tracheostomy. - Dr. Morrison is following from pulmonology standpoint. Continue bronchodilators and pulmonary toilet. - Chronic obstructive pulmonary disease. - Chronic Chaudhari catheter. - Colostomy - Hypertension, metoprolol and hydralazine as needed. - Bedbound status. - Acute kidney injury, resolved. - MRSA UTI , s/p treatment. - MRSA of nares. Continue Bactroban. - Intermittent atrial tachycardia. - per Dr. Broderick is is following in cardiology consultation, continue telemetry monitoring. Monitor electrolytes. - abdominal distention - hold tube feeding for now - per GI - stat KUB- fu results. Further recommendations depend upon patient clinical course. yue Meeks. Total critical care time spent 35 mins. Subjective 24 Hr Interval Summary Subjective hx not possible: pt non-verbal Constitutional: requiring IVF, requiring O2 Exam/Review of Systems Vital Signs Vitals Vital Signs Date Time Temp Pulse Resp B/P Pulse Ox O2 Delivery O2 Flow Rate FiO2 09/23/16 13:35 61 20 100 30 09/23/16 12:00 98.5 155/92 Mechanical Ventilator Intake and Output 09/22/16 09/22/16 09/23/16 15:00 23:00 07:00 Intake Total 540 ml 410 ml 500 ml Output Total 295 ml 225 ml 310 ml Balance 245 ml 185 ml 190 ml Exam Constitutional: frail Psych: no complaints Eyes: nl sclera ENMT: nl external ears & nose Neck: non-tender Respiratory: diminished breath sounds Cardiovascular: nl pulses Gastrointestinal: distended Extremities: edema Neurological: lethargic Lymph: nontender Results Result Diagram: 09/23/16 0818 09/23/16 0519 Results 24 hrs Laboratory Tests Test 09/23/16 05:19 09/23/16 08:18 Anion Gap 17 H Blood Urea Nitrogen 53 H Calcium Level 8.3 L Carbon Dioxide Level 20 L Chloride Level 114 H Creatinine 3.02 H Glucose Level 145 Magnesium Level 2.0 Phosphorus Level 3.8 Potassium Level 5.3 H Random Tobramycin Level 0.9 Sodium Level 146 H Basophils # 0.0 Basophils % 0.0 Eosinophils # 0.0 Eosinophils % 0.0 Hematocrit 28.4 #L Hemoglobin 9.5 #L Lymphocytes # 0.7 L Lymphocytes % 7.3 L Mean Corpuscular Hemoglobin 26.6 L Mean Corpuscular Hemoglobin Concent 33.5 Mean Corpuscular Volume 79.6 L Mean Platelet Volume 12.0 H Monocytes # 0.7 Monocytes % 6.8 Neutrophils # 8.6 H Neutrophils % 85.1 H Nucleated Red Blood Cells # 0.0 Nucleated Red Blood Cells % 0.2 H Platelet Count 239 # Red Blood Count 3.57 #L Red Cell Distribution Width 17.7 H White Blood Count 10.1 Medications Medications Current Medications Collagenase (Santyl) 1 applic DAILY TOP Last administered on 09/23/16 12:19; Admin Dose 1 APPLIC; Start 09/02/16 at 11:30 Clotrimazole (Lotrimin Cr) 1 applic BID TOP Last administered on 09/23/16 09: 06; Admin Dose 1 APPLIC; Start 09/14/16 at 14:30 Mupirocin (Bactroban) 1 applic BID TOP Last administered on 09/23/16 09:05; Admin Dose 1 APPLIC; Start 09/14/16 at 21:00 Amiodarone HCl (Cordarone) 200 mg BID NGT Last administered on 09/23/16 09:05 ; Admin Dose 200 MG; Start 09/17/16 at 13:30 Hydralazine HCl (Apresoline) 10 mg Q4H PRN IV ELEVATED BLOOD PRESSURE Last administered on 09/17/16 16:11; Admin Dose 10 MG; Start 09/17/16 at 16:00 Metoclopramide HCl (Reglan) 5 mg Q6 IV Last administered on 09/23/16 12:19; Admin Dose 5 MG; Start 09/17/16 at 18:00 Morphine Sulfate 2 mg 2 mg Q4H PRN IV PAIN LEVEL 7-10 Last administered on 09/22 04:56; Admin Dose 2 MG; Start 09/18/16 at 12:00 Norepinephrine 250 ml @ 1.875 mls/ hr TITRATE IV ; Start 09/19/16 at 18:30 Piperacillin Sod/ Tazobactam Sod (Zosyn 2.25gm/ 50ml (Pmx)) 50 ml @ 100 mls/hr Q8 IVPB Last administered on 09/23/16 13:57; Admin Dose 100 MLS/HR; Start at 09:00 Metoclopramide HCl (Reglan) 10 mg Q6H PRN IV .FOR GASTRIC RESIDUAL > 100 ML Last administered on 09/21/16 13:34; Admin Dose 10 MG; Start 09/20/16 at 12:30 Pantoprazole (Protonix Iv) 40 mg BID@06,18 IV Last administered on 09/23/16 06 :01; Admin Dose 40 MG; Start 09/20/16 at 18:00 Metoprolol Tartrate (Lopressor) 25 mg BID PO Last administered on 09/23/16 09: 05; Admin Dose 25 MG; Start 09/20/16 at 21:00 Methylprednisolone Sodium Succinate 40 mg 40 mg Q12 IV Last administered on 09:05; Admin Dose 40 MG; Start 09/22/16 at 21:00 Ferric Sodium Gluconate Complex/ Sodium Chloride (Ferrlecit/NS) 110 ml @ 100 mls/hr Q24H IVPB Last administered on 09/22/16 16:22; Admin Dose 100 MLS/HR; Start 09/22/16 at 16:30; Stop 09/24/16 at 17:35 Tobramycin PER PHARMACY DOSING NOTE XX ; Start 09/22/16 at 17:30 Tobramycin/Sodium Chloride (Tobramycin/NS) 52 ml @ 104 mls/hr ONCE IVPB Last administered on 09/23/16t 13:15; Admin Dose 104 MLS/HR; Start 09/23/16 at 12:30 ; Stop 09/23/16 at 18:00 Docusate Sodium 100 mg 100 mg BID PRN GTB CONSTIPATION; Start 09/23/16 at 15:30 ; Status UNV Dextrose/Sodium Chloride (D5-1/2ns) 1,000 ml @ 40 mls/hr Q24H IV ; Start at 15:30; Status UNV MARIO ROWE Sep 23, 2016 15:33
[2016-09-23] MEDS: SOD FERRIC GLUC COMPLX 125 MG in SOD CHLORIDE 0.9% 100 ML IVPB SCH (15:51)
--- NOTE | 2016-09-23 16:02 | RADRPT ---
PROCEDURE: XR Abdomen. CLINICAL INDICATION: Abdomen pain. TECHNIQUE: AP supine abdomen x-ray. COMPARISON: 09/19/2016. FINDINGS: There is a nasogastric tube with the tip in the stomach. There are multiple dilated loops of small bowel with no gas in the colon. Findings are consistent w ith small bowel obstruction. There are no abnormal calcifications overlying the urinary tracts. There are degenerative changes of the spine. There is lumbar scoliosis convex right. IMPRESSION: 1. Nasogastric tube tip in the stomach. 2. Small bowel obstruction. 3. Degenerative changes of the spine. 4. Lumbar scoliosis convex right. RPTAT: QQ .Carter Hogan MD, MD Date Time Electronically viewed and signed by .Carter Hogan MD, MD on 09/23/2016 16:01 .R/
--- NOTE | 2016-09-23 17:26 | PN ---
DATE: HISTORY: The patient had a percutaneous endoscopic gastrostomy tube placement, which was done a few weeks after the PEG tube was removed. PEG tube was removed because he had a large ulcer at the site of the gastrostomy. When the PEG was reintroduced there was no significant ulcer disease noted, but he has developed aspiration and retained fluid in the stomach; however, the G-tube feeding was start ed yesterday and he has been tolerating until today. He has no gastric residual, but abdomen is dis tended. IMPRESSION: Distended abdomen. Etiology unknown. PLAN: Recommend CAT scan of the abdomen. Dictated By: KATELYN FERRARI/MACK Conf#: [id number] DID#: [id number]
[2016-09-23] MEDS ORDERED: BARIUM SULF 2% 450 ML BTL (BERRY SMOOTHIE) PO SCH (17:30)
--- NOTE | 2016-09-23 22:11 | CONS ---
Date/Time of Note Date/Time of Note DATE: 09/23/16 TIME: 22:11 Consultation Date/Type/Reason Admit Date/Time Aug 31, 2016 at 14:59 Initial Consult Date 09/02/16 Type of Consultation: cv Referring Provider: MARIO ROWE Exam/Review of Systems Vital Signs Vitals Vital Signs Date Time Temp Pulse Resp B/P Pulse Ox O2 Delivery O2 Flow Rate FiO2 09/23/16 21:00 62 20 99 30 09/23/16 16:00 97.5 151/91 Mechanical Ventilator Intake and Output 09/22/16 09/22/16 09/23/16 15:00 23:00 07:00 Intake Total 540 ml 410 ml 500 ml Output Total 295 ml 225 ml 310 ml Balance 245 ml 185 ml 190 ml Results Result Diagram: 09/23/16 0818 09/23/16 0519 Results 24 hrs Laboratory Tests Test 09/23/16 05:19 09/23/16 08:18 Anion Gap 17 H Blood Urea Nitrogen 53 H Calcium Level 8.3 L Carbon Dioxide Level 20 L Chloride Level 114 H Creatinine 3.02 H Glucose Level 145 Magnesium Level 2.0 Phosphorus Level 3.8 Potassium Level 5.3 H Random Tobramycin Level 0.9 Sodium Level 146 H Basophils # 0.0 Basophils % 0.0 Eosinophils # 0.0 Eosinophils % 0.0 Hematocrit 28.4 #L Hemoglobin 9.5 #L Lymphocytes # 0.7 L Lymphocytes % 7.3 L Mean Corpuscular Hemoglobin 26.6 L Mean Corpuscular Hemoglobin Concent 33.5 Mean Corpuscular Volume 79.6 L Mean Platelet Volume 12.0 H Monocytes # 0.7 Monocytes % 6.8 Neutrophils # 8.6 H Neutrophils % 85.1 H Nucleated Red Blood Cells # 0.0 Nucleated Red Blood Cells % 0.2 H Platelet Count 239 # Red Blood Count 3.57 #L Red Cell Distribution Width 17.7 H White Blood Count 10.1 Medications Medications Current Medications Collagenase (Santyl) 1 applic DAILY TOP Last administered on 09/23/16 12:19; Admin Dose 1 APPLIC; Start 09/02/16 at 11:30 Clotrimazole (Lotrimin Cr) 1 applic BID TOP Last administered on 09/23/16 21: 07; Admin Dose 1 APPLIC; Start 09/14/16 at 14:30 Mupirocin (Bactroban) 1 applic BID TOP Last administered on 09/23/16 21:07; Admin Dose 1 APPLIC; Start 09/14/16 at 21:00 Amiodarone HCl (Cordarone) 200 mg BID NGT Last administered on 09/23/16 09:05 ; Admin Dose 200 MG; Start 09/17/16 at 13:30 Hydralazine HCl (Apresoline) 10 mg Q4H PRN IV ELEVATED BLOOD PRESSURE Last administered on 09/17/16 16:11; Admin Dose 10 MG; Start 09/17/16 at 16:00 Metoclopramide HCl (Reglan) 5 mg Q6 IV Last administered on 09/23/16 17:21; Admin Dose 5 MG; Start 09/17/16 at 18:00 Morphine Sulfate 2 mg 2 mg Q4H PRN IV PAIN LEVEL 7-10 Last administered on 09/22 04:56; Admin Dose 2 MG; Start 09/18/16 at 12:00 Norepinephrine 250 ml @ 1.875 mls/ hr TITRATE IV ; Start 09/19/16 at 18:30 Piperacillin Sod/ Tazobactam Sod (Zosyn 2.25gm/ 50ml (Pmx)) 50 ml @ 100 mls/hr Q8 IVPB Last administered on 09/23/16 13:57; Admin Dose 100 MLS/HR; Start at 09:00 Metoclopramide HCl (Reglan) 10 mg Q6H PRN IV .FOR GASTRIC RESIDUAL > 100 ML Last administered on 09/21/16 13:34; Admin Dose 10 MG; Start 09/20/16 at 12:30 Pantoprazole (Protonix Iv) 40 mg BID@06,18 IV Last administered on 09/23/16 17 :21; Admin Dose 40 MG; Start 09/20/16 at 18:00 Metoprolol Tartrate (Lopressor) 25 mg BID PO Last administered on 09/23/16 09: 05; Admin Dose 25 MG; Start 09/20/16 at 21:00 Methylprednisolone Sodium Succinate 40 mg 40 mg Q12 IV Last administered on 21:06; Admin Dose 40 MG; Start 09/22/16 at 21:00 Ferric Sodium Gluconate Complex/ Sodium Chloride (Ferrlecit/NS) 110 ml @ 100 mls/hr Q24H IVPB Last administered on 09/23/16t 15:51; Admin Dose 100 MLS/HR; Start 09/22/16 at 16:30; Stop 09/24/16 at 17:35 Tobramycin (Tobramycin Iv Per Pharmacy) PER PHARMACY DOSING NOTE XX ; Start at 17:30 Docusate Sodium 100 mg 100 mg BID PRN GTB CONSTIPATION; Start 09/23/16 at 15:30 Dextrose/Sodium Chloride (D5-1/2ns) 1,000 ml @ 40 mls/hr Q24H IV Last administered on 09/23/16t 15:50; Admin Dose 40 MLS/HR; Start 09/23/16 at 15:30 JAMES PIERSON MD Sep 23, 2016 22:11
[2016-09-23] MEDS ORDERED: NA POLYST SULFON 15 GM/60 ML BTL PO ONE (22:30)
--- NOTE | 2016-09-23 22:47 | RADRPT ---
PROCEDURE: CT abdomen and pelvis without contrast. CLINICAL INDICATION: Abdominal distension TECHNIQUE: CT scan of the abdomen and pelvis without contrast was performed. Oral contrast media i s utilized. Sagittal and coronal reformatted images were obtained from the axial source images. CTD I = 15.23 mGy; DLP = 914 mGy-cm COMPARISON: Abdomen x-ray 09/19/2016 FINDINGS: Visualized lower thorax: Basilar bronchiectasis and fibrosis with dependent subsegmental atelectasi s is present. Bullous emphysematous changes are seen. Trace bilateral deep and pleural effusions a re demonstrated. Liver, gallbladder, pancreas and spleen: The liver is normal and size, contour and attenuation. Th ere is no evidence for a liver mass or ductal dilatation. The gallbladder is not well visualized pr obably contracted as there are no clips in the gallbladder fossa to suggest cholecystectomy. No com mon bile duct abnormality is demonstrated. The pancreas is unremarkable. The spleen is not visuali zed likely surgically removed Adrenal glands and genitourinary system: The adrenal glands are normal bilaterally. The kidneys are normal and size, contour and attenuation with no evidence for masses, calculi or hydronephrosis. T he ureters are unremarkable. The urinary bladder is contracted around a Chaudhari catheter. The visuali zed scrotum demonstrates diffuse scrotal wall edema and bilateral hydroceles. The prostate gland is normal in size. Gastrointestinal system: A nasogastric tube is curled within the stomach the distal tip pointing po steriorly in the region of the gastric fundus. A gastrostomy tube is demonstrated satisfactory posi tion the bulb along the anterior wall of the distal greater curvature. The stomach is distended ismael pite the presence of these catheters. There is contrast/gas levels within distended loops of jejunu m, findings concerning for a mid to distal small bowel obstruction. The mid to distal ileum is colla psed although an exact transition point is difficult to delineate. Vascular engorgement of the smal l bowel mesentery is mild Dense fecal debris is seen within the colon and there are changes consiste nt with partial colectomy and a colostomy stoma along the left anterior abdominal wall. The remaini ng colon shows no evidence of wall thickening. Peritoneum, retroperitoneum, lymph nodes and vessels: The abdominal aorta is normal in caliber. The re is mild aortic and iliac atherosclerotic calcification. The inferior vena cava is unremarkable. There is no evidence for adenopathy or mass. Pelvic ascites is present without organized collectio n to suggest an abscess at this time. There is a trace amount of perihepatic ascites. Osseous structures and musculoskeletal findings: There is no fracture, lytic or blastic lesion. Deg enerative anterolisthesis and disk disease at L4-5 is present with disk space narrowing at L3-4 and a dextroscoliosis of the lumbar spine. Diffuse subcutaneous and edema is consistent with anasarca. RPTAT:HJJR IMPRESSION: 1. Gastric and small bowel distension with gas / contrast levels throughout multiple dilated loops of jejunum, proximal ileum with suggestion of distal ileal collapse, findings concerning for distal small bowel obstruction pattern, and exact transition point is not well delineated but believed to b e in the right mid to lower abdomen. Critical results are discussed by telephone with the patient's ICU nurse, Kellee, at 22:45 2. Pelvic and perihepatic ascites. 3. Mild small bowel mesenteric vascular engorgement. 4. No evidence of pneumoperitoneum or pneumatosis. 5. Changes of partial colectomy with left anterior abdominal wall stoma. 6. Gastric distension despite the positions of the gastrostomy and nasogastric tubes. 7. Diffuse anasarca pattern. 8. Changes of prior splenectomy. Physician Carlos Date Time Electronically viewed and signed by Physician Carlos on 09/23/2016 22:46 /
[2016-09-24] VITALS (30 sets, daily range): BP systolic 137–163; BP diastolic 77–102; PULSE 41–90; RESP 14–27
[2016-09-24] MEDS: LEVOFLOXACIN 500MG/D5W (PMX) 100 ML IVPB SCH (01:33)
[2016-09-24] MEDS: PIPER-TAZO 2.25 GM (PMX) 50 ML IVPB SCH ×2 (01:33→05:45)
[2016-09-24] MEDS: METOCLOPRAMIDE 10 MG INJ IV SCH ×5 (01:34→23:24)
[2016-09-24] MEDS: DEXTROSE 5%-0.225% NACL 1,000 ML IV SCH ×2 (01:34→09:24)
[2016-09-24] MEDS: PANTOPRAZOLE 40 MG INJ IV SCH ×2 (05:45→17:40)
[2016-09-24 06:27] LABS: ADD SCAN DIFF NO
[2016-09-24 06:53] LABS: BASOPHILS % 0.1 % (0.0-2.0); HEMATOCRIT 31.3 % (42.0-52.0); HEMOGLOBIN 10.3 g/dl (14.0-18.0); LYMPHOCYTES # 0.7 10^3/ul (0.8-2.9); LYMPHOCYTES % 8.2 % (15.0-51.0); MEAN CORPUSCULAR HEMOGLOBIN 26.4 pg (29.0-33.0); MEAN CORPUSCULAR HGB CONC 32.9 g/dl (32.0-37.0); MEAN CORPUSCULAR VOLUME 80.3 fl (82.0-101.0); MEAN PLATELET VOLUME 13.1 fl (7.4-10.4); MONOCYTE # 0.7 10^3/ul (0.3-0.9); MONOCYTES % 7.4 % (0.0-11.0); NEUTROPHIL # 7.4 10^3/ul (1.6-7.5); NEUTROPHILS % 83.7 % (39.0-77.0); NUCLEATED RED BLOOD CELLS # 0.1 10^3/ul (0.0-0.0); NUCLEATED RED BLOOD CELLS% 0.6 /100WBC (0.0-0.0); PLATELET COUNT 239 10^3/UL (140-415); RED CELL DISTRIBUTION WIDTH 18.5 % (11.5-14.5); WHITE BLOOD COUNT 8.8 10^3/ul (4.8-10.8)
[2016-09-24 06:54] LABS: ALBUMIN 2.6 g/dl (3.3-4.9)
[2016-09-24 06:55] LABS: POTASSIUM 4.8 mmol/L (3.5-5.1)
[2016-09-24 06:57] LABS: CREATININE 3.18 mg/dl (0.61-1.24)
[2016-09-24 06:58] LABS: ALBUMIN/GLOBULIN RATIO 0.72; CALCIUM 8.2 mg/dl (8.4-10.2); TOTAL PROTEIN 6.2 g/dl (6.1-8.1)
--- NOTE | 2016-09-24 08:30 | CONS ---
Date/Time of Note Date/Time of Note DATE: 09/24/16 TIME: 08:27 Assessment/Plan Assessment/Plan Additional Assessment/Plan Ventilator settings; AC of 16, tidal volume 500, PEEP of 5, 30% FiO2. CT scan abdomen was reviewed from yesterday which is showing ileus. Lower cuts of the lung revealed bibasilar infiltrative changes. Assessment and recommendations; 1. Patient admitted with sepsis due to pneumonia. 2. History of severe anoxic encephalopathy, patient remains ventilator dependent. 3. Renal insufficiency. 4. History of cardiac arrhythmia. 5. Ileus. 6. Status post J-tube placement. Continue current treatment. Place PICC line. Start the patient on TPN. Overall prognosis remains extremity poor. Consultation Date/Type/Reason Admit Date/Time Aug 31, 2016 at 14:59 Initial Consult Date 09/01/16 Type of Consultation: Pulmonary/critical care Referring Provider: MARIO ROWE 24 HR Interval Summary Free Text/Dictation Patient's condition remains unchanged. Remains unresponsive, on ventilator via tracheostomy. Patient has developed ileus now. General examination; elderly male, on ventilator via tracheostomy remains unresponsive which is his underlying mental status due to anoxic encephalopathy. Exam/Review of Systems Vital Signs Vitals Vital Signs Date Time Temp Pulse Resp B/P Pulse Ox O2 Delivery O2 Flow Rate FiO2 09/24/16 05:04 53 16 100 30 09/24/16 05:00 147/87 09/23/16 23:00 98.3 09/23/16 16:00 Mechanical Ventilator Intake and Output 09/23/16 09/23/16 09/24/16 15:00 23:00 07:00 Intake Total 52 ml 1860 ml 600 ml Output Total 1050 ml 3200 ml Balance 52 ml 810 ml -2600 ml Exam H EENT examination; supple neck, no JVD. No lymphadenopathy. Patient is edentulous. Tracheostomy in place with clean insertion site. Pupils are small bilaterally. No neck masses. Chest examination; diminished breath sounds bilaterally. No added sounds. S1- S2 audible. No murmurs. Regular rhythm. Abdomen examination; soft, colostomy in place. J-tube in place. Bowel sounds are absent. Extremity examination; no peripheral edema. GRAIN OILSEED OR PASTURE GROWER examination; patient remains unresponsive. Results Result Diagram: 09/24/16 0600 09/24/16 0520 Results 24 hrs Laboratory Tests Test 09/24/16 05:20 09/24/16 06:00 Alanine Aminotransferase (ALT/SGPT) 18 Albumin 2.6 L Albumin/Globulin Ratio 0.72 Alkaline Phosphatase 58 Anion Gap 21 H Aspartate Amino Transf (AST/SGOT) 12 L Blood Urea Nitrogen 59 H Calcium Level 8.2 L Carbon Dioxide Level 20 L Chloride Level 110 Creatinine 3.18 H Direct Bilirubin 0.00 Globulin 3.60 H Glucose Level 140 Indirect Bilirubin 0.0 Potassium Level 4.8 Sodium Level 146 H Total Bilirubin 0.0 L Total Protein 6.2 Basophils # 0.0 Basophils % 0.1 Eosinophils # 0.0 Eosinophils % 0.0 Hematocrit 31.3 L Hemoglobin 10.3 L Lymphocytes # 0.7 L Lymphocytes % 8.2 L Mean Corpuscular Hemoglobin 26.4 L Mean Corpuscular Hemoglobin Concent 32.9 Mean Corpuscular Volume 80.3 L Mean Platelet Volume 13.1 H Monocytes # 0.7 Monocytes % 7.4 Neutrophils # 7.4 Neutrophils % 83.7 H Nucleated Red Blood Cells # 0.1 H Nucleated Red Blood Cells % 0.6 H Platelet Count 239 Red Blood Count 3.90 L Red Cell Distribution Width 18.5 H White Blood Count 8.8 Medications Medications Current Medications Collagenase (Santyl) 1 applic DAILY TOP Last administered on 09/23/16 12:19; Admin Dose 1 APPLIC; Start 09/02/16 at 11:30 Clotrimazole (Lotrimin Cr) 1 applic BID TOP Last administered on 09/23/16 21: 07; Admin Dose 1 APPLIC; Start 09/14/16 at 14:30 Mupirocin (Bactroban) 1 applic BID TOP Last administered on 09/23/16 21:07; Admin Dose 1 APPLIC; Start 09/14/16 at 21:00 Amiodarone HCl (Cordarone) 200 mg BID NGT Last administered on 09/23/16 09:05 ; Admin Dose 200 MG; Start 09/17/16 at 13:30 Hydralazine HCl (Apresoline) 10 mg Q4H PRN IV ELEVATED BLOOD PRESSURE Last administered on 09/17/16 16:11; Admin Dose 10 MG; Start 09/17/16 at 16:00 Metoclopramide HCl (Reglan) 5 mg Q6 IV Last administered on 09/24/16 05:45; Admin Dose 5 MG; Start 09/17/16 at 18:00 Morphine Sulfate 2 mg 2 mg Q4H PRN IV PAIN LEVEL 7-10 Last administered on 09/22 04:56; Admin Dose 2 MG; Start 09/18/16 at 12:00 Norepinephrine 250 ml @ 1.875 mls/ hr TITRATE IV ; Start 09/19/16 at 18:30 Piperacillin Sod/ Tazobactam Sod (Zosyn 2.25gm/ 50ml (Pmx)) 50 ml @ 100 mls/hr Q8 IVPB Last administered on 09/24/16 05:45; Admin Dose 100 MLS/HR; Start at 09:00 Metoclopramide HCl (Reglan) 10 mg Q6H PRN IV .FOR GASTRIC RESIDUAL > 100 ML Last administered on 09/21/16 13:34; Admin Dose 10 MG; Start 09/20/16 at 12:30 Pantoprazole (Protonix Iv) 40 mg BID@06,18 IV Last administered on 09/24/16 05 :45; Admin Dose 40 MG; Start 09/20/16 at 18:00 Metoprolol Tartrate (Lopressor) 25 mg BID PO Last administered on 09/23/16 09: 05; Admin Dose 25 MG; Start 09/20/16 at 21:00 Methylprednisolone Sodium Succinate 40 mg 40 mg Q12 IV Last administered on 21:06; Admin Dose 40 MG; Start 09/22/16 at 21:00 Ferric Sodium Gluconate Complex/ Sodium Chloride (Ferrlecit/NS) 110 ml @ 100 mls/hr Q24H IVPB Last administered on 09/23/16 15:51; Admin Dose 100 MLS/HR; Start 09/22/16 at 16:30; Stop 09/24/16 at 17:35 Docusate Sodium 100 mg 100 mg BID PRN GTB CONSTIPATION; Start 09/23/16 at 15:30 Levofloxacin/ Dextrose 100 ml @ 100 mls/hr Q48H IVPB Last administered on 09/24 01:33; Admin Dose 100 MLS/HR; Start 09/23/16 at 23:30 Dextrose/Sodium Chloride (D5-1/4ns) 1,000 ml @ 100 mls/hr Q10H IV Last administered on 09/24/16t 01:34; Admin Dose 100 MLS/HR; Start 09/23/16 at 23:45 SHAAN BUTT Sep 24, 2016 08:30
[2016-09-24] MEDS: METOPROLOL 25 MG TAB PO SCH ×2 (08:45→22:17)
[2016-09-24] MEDS: AMIODARONE 200 MG TAB NGT SCH (08:45)
[2016-09-24] MEDS ORDERED: LIDOCAINE 1% (MDV) 20 ML INJ SC ONE (09:00)
[2016-09-24] MEDS: METHYLPREDNISOLONE 40 MG INJ IV SCH (09:24)
[2016-09-24] MEDS: CLOTRIMAZOLE 1% 30 GM CR TOP SCH (09:24)
[2016-09-24] MEDS: MUPIROCIN 2% 22 GM OINT TOP SCH (09:24)
[2016-09-24] MEDS: COLLAGENASE 30 GM TUBE TOP SCH (09:24)
[2016-09-24] MEDS: TOBRAMYCIN/0.25NS 300 MG/5 ML INHAL NEB SCH ×2 (10:43→19:40)
--- NOTE | 2016-09-24 12:15 | CONS ---
Date/Time of Note Date/Time of Note DATE: 09/24/16 TIME: 12:13 Assessment/Plan Assessment/Plan Chief Complaint/Hosp Course assessment/impression - Acute on chronic respiratory failure--likely due to central airway obstruction from aspirated tube feeds- resolved - SBO/ileus - High residuals with probable gastroparesis per GI - on reglan - SIRS (Tx to ICU 09/19/16) with tachycardia and leukocytosis likely d/t stress response / aspiration and RAYNA vs early sepsis / asp PNA. 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 the wound culture grew carbapenemase producing kleb, enterococci and pseudo - leakage of gastric contents from GT site, now has ostomy bag - resolved - dysphagia s/p EGD and new G tube placement 09/15/2016 - infection of wound of RLE due to pseudomonas. 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 - h/o thrush - HCV infection - colostomy status - moderate to severe protein calorie malnutrition - BLE papule rash - possibly d/t heat rash vs contact dermatitis vs delayed abx sensitivity - slowly improving - s/p Vanco (09/02/16-09/12/16; 09/20/16-09/22/16) for MRSA and levofloxacin (09/05/16- 09/12/16) intermediate activity against carbapenemase producing kleb; mupirocin for MRSA decolonization (09/02/16-09/14/16) recommendations: - DC empiric Pip/tazo (09/20/16-) - IV Tobra (09/06/16-) was changed to Tobra inhalation and start IV Levaquin 500 mg q48 hours (09/24/16-) - Pt has multiple MDR organisms and it is impossible to cover all. Abx selection is limited d/t worsening renal function. Overall prognosis remains poor and we recommend Hospice evaluation. - Trend WBC (normalized) and renal fxn (still worsening) - Discontinue topical antimicrobials (Clotrimazole and Bactroban) as BLE rash has resolved - Sage Cx for temp >100.4 - Plan d/w [facility] [employer], Dr. Miramontes and Edna [employer] - Above d/w Dr. Tang - Total time spent: 45 minutes Problems: Consultation Date/Type/Reason Admit Date/Time Aug 31, 2016 at 14:59 Initial Consult Date 09/02/16 Type of Consultation: Infectious Disease Referring Provider: MARIO ROWE 24 HR Interval Summary Free Text/Dictation Tube feeds held last night d/t abd distention, and 2L were removed when NGT connected to suction; Pt getting PICC line and planning to start TPN per [facility]. Pt remains non-communicative. Exam/Review of Systems Vital Signs Vitals Vital Signs Date Time Temp Pulse Resp B/P Pulse Ox O2 Delivery O2 Flow Rate FiO2 09/24/16 11:39 97.8 48 16 155/83 Mechanical Ventilator 09/24/16 11:00 100 09/24/16 08:00 30 Intake and Output 09/23/16 09/23/16 09/24/16 15:00 23:00 07:00 Intake Total 52 ml 1860 ml 600 ml Output Total 1050 ml 3300 ml Balance 52 ml 810 ml -2700 ml Exam Constitutional: frail, other (non-communicative; chronically debilitated, cachectic ) Head: atraumatic, normocephalic, other (temporal wasting noted) Neck: other (trach midline) Respiratory: Diminished breath sounds. No wheezing. Cardiovascular: nl pulses, regular rate and rhythm Gastrointestinal: bowel sounds hypo, other (colostomy intact - stoma pink/no stool; NGT to sxn; G tube to gravity drainage with trivial output), soft, less distended Genitourinary - Male: other (vincent cath intact with clear yellow urine) Musculoskeletal: muscle weakness Extremities: normal pulses, other (bilateral foot drop noted), trace edema R>L , contracted No clubbing, No cyanosis Neurological: unresponsive Skin: other (RLE posterior lateral dressing c/d/i); no rash noted Results Respiratory Culture 09/20/16: RESPIRATORY CULTURE Final Organism 1 ACINETOBACTER BAUMANNII QUANTITY 3+ Organism 2 PSEUDOMONAS AERUGINOSA QUANTITY 3+ Organism 3 PROTEUS MIRABILIS QUANTITY 1+ ACINETOBACTER BAUMANNII: Multi drug resistant organism PHONED TO [facility]IE,ICU, DONAL,PHARM, AND A COPY [place] 0904 09/23/2016 BY JV. AYLEEN Hoffmann [facility] RX --------- --- --------- --- --------- --- AMIKACIN R <=2 S AMPICILLIN 8 S AZTREONAM R CEFEPIME >=64 R CEFOTAXIME S CEFTAZIDIME >=64 R >=64 R CIPROFLOXACIN >=4 R 1 S >=4 R GENTAMICIN >=16 R <=1 S 4 S IMIPENEM >=16 R 2 S LEVOFLOXACIN >=8 R 4 I 4 I TOBRAMYCIN >=16 R <=1 S <=1 S TRIMETHOPRIM/SULFAMETHOXAZOLE <=20 S <=20 S PIPERACILLIN/TAZOBACTAM >=128 R R Result Diagram: 09/24/16 0600 09/24/16 0520 Results 24 hrs Laboratory Tests Test 09/24/16 05:20 09/24/16 06:00 Alanine Aminotransferase (ALT/SGPT) 18 Albumin 2.6 L Albumin/Globulin Ratio 0.72 Alkaline Phosphatase 58 Anion Gap 21 H Aspartate Amino Transf (AST/SGOT) 12 L Blood Urea Nitrogen 59 H Calcium Level 8.2 L Carbon Dioxide Level 20 L Chloride Level 110 Creatinine 3.18 H Direct Bilirubin 0.00 Globulin 3.60 H Glucose Level 140 Indirect Bilirubin 0.0 Potassium Level 4.8 Sodium Level 146 H Total Bilirubin 0.0 L Total Protein 6.2 Basophils # 0.0 Basophils % 0.1 Eosinophils # 0.0 Eosinophils % 0.0 Hematocrit 31.3 L Hemoglobin 10.3 L Lymphocytes # 0.7 L Lymphocytes % 8.2 L Mean Corpuscular Hemoglobin 26.4 L Mean Corpuscular Hemoglobin Concent 32.9 Mean Corpuscular Volume 80.3 L Mean Platelet Volume 13.1 H Monocytes # 0.7 Monocytes % 7.4 Neutrophils # 7.4 Neutrophils % 83.7 H Nucleated Red Blood Cells # 0.1 H Nucleated Red Blood Cells % 0.6 H Platelet Count 239 Red Blood Count 3.90 L Red Cell Distribution Width 18.5 H White Blood Count 8.8 Medications Medications Current Medications Collagenase (Santyl) 1 applic DAILY TOP Last administered on 09/24/16 09:24; Admin Dose 1 APPLIC; Start 09/02/16 at 11:30 Clotrimazole (Lotrimin Cr) 1 applic BID TOP Last administered on 09/24/16 09: 24; Admin Dose 1 APPLIC; Start 09/14/16 at 14:30 Mupirocin (Bactroban) 1 applic BID TOP Last administered on 09/24/16 09:24; Admin Dose 1 APPLIC; Start 09/14/16 at 21:00 Amiodarone HCl (Cordarone) 200 mg BID NGT Last administered on 09/23/16 09:05 ; Admin Dose 200 MG; Start 09/17/16 at 13:30 Hydralazine HCl (Apresoline) 10 mg Q4H PRN IV ELEVATED BLOOD PRESSURE Last administered on 09/17/16 16:11; Admin Dose 10 MG; Start 09/17/16 at 16:00 Metoclopramide HCl (Reglan) 5 mg Q6 IV Last administered on 09/24/16 11:36; Admin Dose 5 MG; Start 09/17/16 at 18:00 Morphine Sulfate 2 mg 2 mg Q4H PRN IV PAIN LEVEL 7-10 Last administered on 09/22 04:56; Admin Dose 2 MG; Start 09/18/16 at 12:00 Norepinephrine 250 ml @ 1.875 mls/ hr TITRATE IV ; Start 09/19/16 at 18:30 Piperacillin Sod/ Tazobactam Sod (Zosyn 2.25gm/ 50ml (Pmx)) 50 ml @ 100 mls/hr Q8 IVPB Last administered on 09/24/16 05:45; Admin Dose 100 MLS/HR; Start at 09:00 Metoclopramide HCl (Reglan) 10 mg Q6H PRN IV .FOR GASTRIC RESIDUAL > 100 ML Last administered on 09/21/16 13:34; Admin Dose 10 MG; Start 09/20/16 at 12:30 Pantoprazole (Protonix Iv) 40 mg BID@06,18 IV Last administered on 09/24/16 05 :45; Admin Dose 40 MG; Start 09/20/16 at 18:00 Metoprolol Tartrate (Lopressor) 25 mg BID PO Last administered on 09/23/16 09: 05; Admin Dose 25 MG; Start 09/20/16 at 21:00 Methylprednisolone Sodium Succinate 40 mg 40 mg Q12 IV Last administered on 09:24; Admin Dose 40 MG; Start 09/22/16 at 21:00 Ferric Sodium Gluconate Complex/ Sodium Chloride (Ferrlecit/NS) 110 ml @ 100 mls/hr Q24H IVPB Last administered on 09/23/16 15:51; Admin Dose 100 MLS/HR; Start 09/22/16 at 16:30; Stop 09/24/16 at 17:35 Docusate Sodium 100 mg 100 mg BID PRN GTB CONSTIPATION; Start 09/23/16 at 15:30 Levofloxacin/ Dextrose 100 ml @ 100 mls/hr Q48H IVPB Last administered on 09/24 01:33; Admin Dose 100 MLS/HR; Start 09/23/16 at 23:30 Dextrose/Sodium Chloride (D5-1/4ns) 1,000 ml @ 100 mls/hr Q10H IV Last administered on 09/24/16 09:24; Admin Dose 100 MLS/HR; Start 09/23/16 at 23:45 Procedures Procedures Abd/Pelvis CT 09/23/16: 1. Gastric and small bowel distension with gas / contrast levels throughout multiple dilated loops of jejunum, proximal ileum with suggestion of distal ileal collapse, findings concerning for distal small bowel obstruction pattern, and exact transition point is not well delineated but believed to be in the right mid to lower abdomen. Critical results are discussed by telephone with the patient's ICU nurse, Kellee, at 22:45 2. Pelvic and perihepatic ascites. 3. Mild small bowel mesenteric vascular engorgement. 4. No evidence of pneumoperitoneum or pneumatosis. 5. Changes of partial colectomy with left anterior abdominal wall stoma. 6. Gastric distension despite the positions of the gastrostomy and nasogastric tubes. 7. Diffuse anasarca pattern. 8. Changes of prior splenectomy. Abd X-ray 09/23/16: 1. Nasogastric tube tip in the stomach. 2. Small bowel obstruction. 3. Degenerative changes of the spine. 4. Lumbar scoliosis convex right. KO LOVING NP Sep 24, 2016 12:15
--- NOTE | 2016-09-24 13:30 | RADRPT ---
PROCEDURE: US guidance for PICC line CLINICAL INDICATION: PICC line placement TECHNIQUE: Multiple real-time images were acquired of the patient's arm utilizing a high resolutio n transducer. This was performed by the PICC line nurse for venous access. COMPARISON: None FINDINGS: Ultrasound guidance for PICC line placement. IMPRESSION: Ultrasound guidance for PICC line placement. RPTAT: AA .David Mccarty MD, MD Date Time Electronically viewed and signed by .David Mccarty MD, on 09/24/2016 13:30 .S/
--- NOTE | 2016-09-24 13:36 | CONS ---
Date/Time of Note Date/Time of Note DATE: 09/24/16 TIME: 13:35 Assessment/Plan Assessment/Plan Chief Complaint/Hosp Course - Acute on chronic respiratory failure--likely due to central airway obstruction from aspirated tube feeds- resolved - High residuals with probable gastroparesis per GI - on reglan - SIRS (Tx to ICU 09/19/16) with tachycardia and leukocytosis likely d/t stress response 2/2 aspiration and RAYNA vs early sepsis Case d/w [employer] Steward. EMR reviewed. plan coordinated. Problems: Consultation Date/Type/Reason Admit Date/Time Aug 31, 2016 at 14:59 Initial Consult Date 09/02/16 Type of Consultation: Infectious Disease Referring Provider: MARIO ROWE Exam/Review of Systems Vital Signs Vitals Vital Signs Date Time Temp Pulse Resp B/P Pulse Ox O2 Delivery O2 Flow Rate FiO2 09/24/16 12:00 43 09/24/16 12:00 16 148/80 100 Mechanical Ventilator 09/24/16 11:39 97.8 09/24/16 10:55 30 Intake and Output 09/23/16 09/23/16 09/24/16 15:00 23:00 07:00 Intake Total 52 ml 1860 ml 600 ml Output Total 1050 ml 3300 ml Balance 52 ml 810 ml -2700 ml Results Result Diagram: 09/24/16 0600 09/24/16 0520 Results 24 hrs Laboratory Tests Test 09/24/16 05:20 09/24/16 06:00 Alanine Aminotransferase (ALT/SGPT) 18 Albumin 2.6 L Albumin/Globulin Ratio 0.72 Alkaline Phosphatase 58 Anion Gap 21 H Aspartate Amino Transf (AST/SGOT) 12 L Blood Urea Nitrogen 59 H Calcium Level 8.2 L Carbon Dioxide Level 20 L Chloride Level 110 Creatinine 3.18 H Direct Bilirubin 0.00 Globulin 3.60 H Glucose Level 140 Indirect Bilirubin 0.0 Potassium Level 4.8 Sodium Level 146 H Total Bilirubin 0.0 L Total Protein 6.2 Basophils # 0.0 Basophils % 0.1 Eosinophils # 0.0 Eosinophils % 0.0 Hematocrit 31.3 L Hemoglobin 10.3 L Lymphocytes # 0.7 L Lymphocytes % 8.2 L Mean Corpuscular Hemoglobin 26.4 L Mean Corpuscular Hemoglobin Concent 32.9 Mean Corpuscular Volume 80.3 L Mean Platelet Volume 13.1 H Monocytes # 0.7 Monocytes % 7.4 Neutrophils # 7.4 Neutrophils % 83.7 H Nucleated Red Blood Cells # 0.1 H Nucleated Red Blood Cells % 0.6 H Platelet Count 239 Red Blood Count 3.90 L Red Cell Distribution Width 18.5 H White Blood Count 8.8 Medications Medications Current Medications Collagenase (Santyl) 1 applic DAILY TOP Last administered on 09/24/16 09:24; Admin Dose 1 APPLIC; Start 09/02/16 at 11:30 Amiodarone HCl (Cordarone) 200 mg BID NGT Last administered on 09/23/16 09:05 ; Admin Dose 200 MG; Start 09/17/16 at 13:30 Hydralazine HCl (Apresoline) 10 mg Q4H PRN IV ELEVATED BLOOD PRESSURE Last administered on 09/17/16 16:11; Admin Dose 10 MG; Start 09/17/16 at 16:00 Metoclopramide HCl (Reglan) 5 mg Q6 IV Last administered on 09/24/16 11:36; Admin Dose 5 MG; Start 09/17/16 at 18:00 Morphine Sulfate 2 mg 2 mg Q4H PRN IV PAIN LEVEL 7-10 Last administered on 09/22 04:56; Admin Dose 2 MG; Start 09/18/16 at 12:00 Norepinephrine (Levophed) 250 ml @ 1.875 mls/ hr TITRATE IV ; Start 09/19/16 at 18:30 Metoclopramide HCl (Reglan) 10 mg Q6H PRN IV .FOR GASTRIC RESIDUAL > 100 ML Last administered on 09/21/16 13:34; Admin Dose 10 MG; Start 09/20/16 at 12:30 Pantoprazole (Protonix Iv) 40 mg BID@06,18 IV Last administered on 09/24/16 05 :45; Admin Dose 40 MG; Start 09/20/16 at 18:00 Metoprolol Tartrate (Lopressor) 25 mg BID PO Last administered on 09/23/16 09: 05; Admin Dose 25 MG; Start 09/20/16 at 21:00 Methylprednisolone Sodium Succinate 40 mg 40 mg Q12 IV Last administered on 09:24; Admin Dose 40 MG; Start 09/22/16 at 21:00 Ferric Sodium Gluconate Complex/ Sodium Chloride (Ferrlecit/NS) 110 ml @ 100 mls/hr Q24H IVPB Last administered on 09/23/16 15:51; Admin Dose 100 MLS/HR; Start 09/22/16 at 16:30; Stop 09/24/16 at 17:35 Docusate Sodium 100 mg 100 mg BID PRN GTB CONSTIPATION; Start 09/23/16 at 15:30 Levofloxacin/ Dextrose 100 ml @ 100 mls/hr Q48H IVPB Last administered on 09/24 01:33; Admin Dose 100 MLS/HR; Start 09/23/16 at 23:30 Dextrose/Sodium Chloride (D5-1/4ns) 1,000 ml @ 100 mls/hr Q10H IV Last administered on 09/24/16 09:24; Admin Dose 100 MLS/HR; Start 09/23/16 at 23:45 Diagnostic Test (Pha) 1 ea 1 ea Q4 XX ; Start 09/24/16 at 13:00 Total Parenteral Nutrition 1,000 ml @ 40 mls/hr Q24H IV ; Start 09/24/16 at 14: 00 Fat Emulsion Intravenous (Liposyn Ii 20%) 250 ml @ 10.4 mls/hr Q24H IV ; Start 09/24/16 at 14:00 MARIBELL SUN MD Sep 24, 2016 13:36
--- NOTE | 2016-09-24 13:43 | RADRPT ---
PROCEDURE: XR Chest. CLINICAL INDICATION: Check PICC line position. TECHNIQUE: Single frontal view. COMPARISON: 09/21/2016. FINDINGS: There is a left arm PICC line with the tip in the mid superior vena cava. There is patchy air space disease in the right upper lobe, unchanged. The lungs are otherwise clear. The heart size is normal. There is calcification in the aorta consistent with atherosclerosis. There is no pleural effusion. There is no pneumothorax. IMPRESSION: 1. Satisfactory position of left arm PICC line. 2. No other change from 09/21/2016. RPTAT: QQ .Carter Hogan MD, MD Date Time Electronically viewed and signed by .Carter Hogan MD, MD on 09/24/2016 13:43 .R/
[2016-09-24] MEDS: ACCUCHECK XX SCH ×3 (14:02→21:28)
--- NOTE | 2016-09-24 14:05 | PN ---
Date/Time of Note Date/Time of Note DATE: 09/24/16 TIME: 13:59 Assessment/Plan VTE Prophylaxis VTE Prophylaxis Intervention: SCD's Lines/Catheters IV Catheter Type (from Nrs): PICC Line Central line still needed: Yes Urinary Cath still in place: Yes Reason Cath still needed: urinary retention Assessment/Plan Chief Complaint/Hosp Course ASSESSMENT AND PLAN: - SBO per CT. G-tube feeding is on hold. N.p.o. start TPN. Dr. Torres is asked to see patient in general surgery consultation. - Systemic inflammatory response syndrome with leukocytosis, possible aspiration. Continue broad-spectrum antibiotics, monitor chest x-ray. - RAYNA 2 to dehydration and SIRS, continue IV fluids . Dr Miramontes is following in nephrology consultation.. - Dysphagia, s/p J-tube placement. Patient s/p high residual and emesis. Follow-up gastroenterology recommendation. 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 Continue Protonix. Dr. Pryor is following the patient in gastroenterology consultation. - Anemia 2 to GI bleed, monitor H&H, transfuse as needed. - Dehydration secondary to vomiting, resolved. - S/p sepsis with Staph bacteremia [address] Kitty yoo is following in ID consultation. Continue abx per ID. 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 - Ventilator-dependent respiratory failure with tracheostomy. Dr. Morrison is following from pulmonology standpoint. Continue bronchodilators and pulmonary toilet. - Chronic obstructive pulmonary disease. - Chronic Chaudhari catheter. - Colostomy - Hypertension, metoprolol and hydralazine as needed. - Bedbound status. - Acute kidney injury, resolved. - MRSA UTI , s/p treatment. - MRSA of nares. Continue Bactroban. - Intermittent atrial tachycardia. Dr. Broderick is is following in cardiology consultation, continue telemetry monitoring. Monitor electrolytes. Dr. Meeks spoke with patient's daughter yesterday, patient daughter wants everything to be done for now. Continue sequential compression device for deep venous thrombosis prophylaxis and Protonix for peptic ulcer disease prophylaxis. Further recommendations based on clinical course. Plan of care discussed with Dr. Meeks. Problems: Exam/Review of Systems Vital Signs Vitals Vital Signs Date Time Temp Pulse Resp B/P Pulse Ox O2 Delivery O2 Flow Rate FiO2 09/24/16 13:00 90 27 145/98 100 Mechanical Ventilator 09/24/16 11:39 97.8 09/24/16 10:55 30 Intake and Output 09/23/16 09/23/16 09/24/16 15:00 23:00 07:00 Intake Total 52 ml 1860 ml 600 ml Output Total 1050 ml 3300 ml Balance 52 ml 810 ml -2700 ml Exam GENERAL: Well-developed, cachectic gentleman currently obtunded on ventilator support via tracheostomy. HEENT: Pupils equal, round, reactive to light and accommodation. NECK: Supple, no cervical lymphadenopathy, no thyromegaly. Tracheostomy the base of the neck with small amount of secretions. LUNGS: Rhonchi bilaterally, slightly diminished at the bases. CARDIOVASCULAR: Normal S1, S2. No murmurs, gallops, clicks, rubs noted. ABDOMEN: Flat, soft, nondistended, nontender. Bowel sounds present. Patient has left lower quadrant colostomy with pink, moist stoma. G-tube. GENITOURINARY: The patient also has a Chaudhari catheter. EXTREMITIES: No edema, clubbing, cyanosis. Pulses equal bilaterally 2+. Lower extremities contracted. SKIN: There is no rash, petechiae noted. The patient has a sacral decubitus ulcer stage II. NEUROLOGIC: Patient does not follow any commands. Results Result Diagram: 09/24/16 0600 09/24/16 0520 Results 24 hrs Laboratory Tests Test 09/24/16 05:20 09/24/16 06:00 Alanine Aminotransferase (ALT/SGPT) 18 Albumin 2.6 L Albumin/Globulin Ratio 0.72 Alkaline Phosphatase 58 Anion Gap 21 H Aspartate Amino Transf (AST/SGOT) 12 L Blood Urea Nitrogen 59 H Calcium Level 8.2 L Carbon Dioxide Level 20 L Chloride Level 110 Creatinine 3.18 H Direct Bilirubin 0.00 Globulin 3.60 H Glucose Level 140 Indirect Bilirubin 0.0 Potassium Level 4.8 Sodium Level 146 H Total Bilirubin 0.0 L Total Protein 6.2 Basophils # 0.0 Basophils % 0.1 Eosinophils # 0.0 Eosinophils % 0.0 Hematocrit 31.3 L Hemoglobin 10.3 L Lymphocytes # 0.7 L Lymphocytes % 8.2 L Mean Corpuscular Hemoglobin 26.4 L Mean Corpuscular Hemoglobin Concent 32.9 Mean Corpuscular Volume 80.3 L Mean Platelet Volume 13.1 H Monocytes # 0.7 Monocytes % 7.4 Neutrophils # 7.4 Neutrophils % 83.7 H Nucleated Red Blood Cells # 0.1 H Nucleated Red Blood Cells % 0.6 H Platelet Count 239 Red Blood Count 3.90 L Red Cell Distribution Width 18.5 H White Blood Count 8.8 Medications Medications Current Medications Collagenase (Santyl) 1 applic DAILY TOP Last administered on 09/24/16 09:24; Admin Dose 1 APPLIC; Start 09/02/16 at 11:30 Amiodarone HCl (Cordarone) 200 mg BID NGT Last administered on 09/23/16 09:05 ; Admin Dose 200 MG; Start 09/17/16 at 13:30 Hydralazine HCl (Apresoline) 10 mg Q4H PRN IV ELEVATED BLOOD PRESSURE Last administered on 09/17/16 16:11; Admin Dose 10 MG; Start 09/17/16 at 16:00 Metoclopramide HCl (Reglan) 5 mg Q6 IV Last administered on 09/24/16 11:36; Admin Dose 5 MG; Start 09/17/16 at 18:00 Morphine Sulfate 2 mg 2 mg Q4H PRN IV PAIN LEVEL 7-10 Last administered on 09/22 04:56; Admin Dose 2 MG; Start 09/18/16 at 12:00 Norepinephrine (Levophed) 250 ml @ 1.875 mls/ hr TITRATE IV ; Start 09/19/16 at 18:30 Metoclopramide HCl (Reglan) 10 mg Q6H PRN IV .FOR GASTRIC RESIDUAL > 100 ML Last administered on 09/21/16 13:34; Admin Dose 10 MG; Start 09/20/16 at 12:30 Pantoprazole (Protonix Iv) 40 mg BID@06,18 IV Last administered on 09/24/16 05 :45; Admin Dose 40 MG; Start 09/20/16 at 18:00 Metoprolol Tartrate 25 mg 25 mg BID PO Last administered on 09/23/16 09:05; Admin Dose 25 MG; Start 09/20/16 at 21:00 Ferric Sodium Gluconate Complex/ Sodium Chloride (Ferrlecit/NS) 110 ml @ 100 mls/hr Q24H IVPB Last administered on 09/23/16 15:51; Admin Dose 100 MLS/HR; Start 09/22/16 at 16:30; Stop 09/24/16 at 17:35 Docusate Sodium 100 mg 100 mg BID PRN GTB CONSTIPATION; Start 09/23/16 at 15:30 Levofloxacin/ Dextrose 100 ml @ 100 mls/hr Q48H IVPB Last administered on 09/24 01:33; Admin Dose 100 MLS/HR; Start 09/23/16 at 23:30 Dextrose/Sodium Chloride (D5-1/4ns) 1,000 ml @ 50 mls/hr Q20H IV Last administered on 09/24/16 09:24; Admin Dose 100 MLS/HR; Start 09/23/16 at 23:45 Diagnostic Test (Pha) 1 ea 1 ea Q4 XX ; Start 09/24/16 at 13:00 Total Parenteral Nutrition 1,000 ml @ 40 mls/hr Q24H IV ; Start 09/24/16 at 14: 00 Fat Emulsion Intravenous (Liposyn Ii 20%) 250 ml @ 10.4 mls/hr Q24H IV ; Start 09/24/16 at 14:00 IV Flush (NS 10 ml) 10 ml PRN PRN IV IV PROTOCOL; Start 09/24/16 at 14:00 Methylprednisolone Sodium Succinate (Solu-Medrol) 40 mg QHS IV ; Start 09/25/16 at 21:00 AMY MORAN Sep 24, 2016 14:05
[2016-09-24] MEDS: FAT EMULSION 20% 250 ML IV SCH (14:25)
[2016-09-24] MEDS: TPN 1,000 ML IV SCH (14:25)
--- NOTE | 2016-09-24 16:54 | CONS ---
Date/Time of Note Date/Time of Note DATE: 09/24/16 TIME: 16:53 Assessment/Plan Assessment/Plan Additional Assessment/Plan Intermittent atrial tachycardia and atrial fibrillation Frequent PACs and PVCs Preserved ejection fraction Hypotension Hematemesis Respiratory failure Encephalopathy Acute kidney injury -Remains in sinus rhythm, patient receiving medications intermittently, would decrease amiodarone to daily. Consultation Date/Type/Reason Admit Date/Time Aug 31, 2016 at 14:59 Initial Consult Date 09/02/16 Type of Consultation: cv Referring Provider: MARIO ROWE 24 HR Interval Summary Free Text/Dictation Patient seen and examined Exam/Review of Systems Vital Signs Vitals Vital Signs Date Time Temp Pulse Resp B/P Pulse Ox O2 Delivery O2 Flow Rate FiO2 09/24/16 16:00 54 09/24/16 15:00 17 150/98 100 Mechanical Ventilator 09/24/16 11:39 97.8 09/24/16 10:55 30 Intake and Output 09/23/16 09/23/16 09/24/16 15:00 23:00 07:00 Intake Total 52 ml 1860 ml 600 ml Output Total 1050 ml 3300 ml Balance 52 ml 810 ml -2700 ml Exam No response to verbal stimuli, no apparent distress Head: normocephalic Neck: other (Tracheostomy) Respiratory: other (Coarse breath sounds bilaterally, no wheezing) Cardiovascular: other (S1-S2 heard), regular rate and rhythm Gastrointestinal: bowel sounds, other (No grimacing with palpation), soft Extremities: other (No edema) Results Result Diagram: 09/24/16 0600 09/24/16 0520 Results 24 hrs Laboratory Tests Test 09/24/16 05:20 09/24/16 06:00 09/24/16 13:55 Alanine Aminotransferase (ALT/SGPT) 18 Albumin 2.6 L Albumin/Globulin Ratio 0.72 Alkaline Phosphatase 58 Anion Gap 21 H Aspartate Amino Transf (AST/SGOT) 12 L Blood Urea Nitrogen 59 H Calcium Level 8.2 L Carbon Dioxide Level 20 L Chloride Level 110 Creatinine 3.18 H Direct Bilirubin 0.00 Globulin 3.60 H Glucose Level 140 Indirect Bilirubin 0.0 Potassium Level 4.8 Sodium Level 146 H Total Bilirubin 0.0 L Total Protein 6.2 Basophils # 0.0 Basophils % 0.1 Eosinophils # 0.0 Eosinophils % 0.0 Hematocrit 31.3 L Hemoglobin 10.3 L Lymphocytes # 0.7 L Lymphocytes % 8.2 L Mean Corpuscular Hemoglobin 26.4 L Mean Corpuscular Hemoglobin Concent 32.9 Mean Corpuscular Volume 80.3 L Mean Platelet Volume 13.1 H Monocytes # 0.7 Monocytes % 7.4 Neutrophils # 7.4 Neutrophils % 83.7 H Nucleated Red Blood Cells # 0.1 H Nucleated Red Blood Cells % 0.6 H Platelet Count 239 Red Blood Count 3.90 L Red Cell Distribution Width 18.5 H White Blood Count 8.8 Bedside Glucose 140 Medications Medications Current Medications Collagenase (Santyl) 1 applic DAILY TOP Last administered on 09/24/16 09:24; Admin Dose 1 APPLIC; Start 09/02/16 at 11:30 Amiodarone HCl (Cordarone) 200 mg BID NGT Last administered on 09/23/16 09:05 ; Admin Dose 200 MG; Start 09/17/16 at 13:30 Hydralazine HCl (Apresoline) 10 mg Q4H PRN IV ELEVATED BLOOD PRESSURE Last administered on 09/17/16 16:11; Admin Dose 10 MG; Start 09/17/16 at 16:00 Metoclopramide HCl (Reglan) 5 mg Q6 IV Last administered on 09/24/16 11:36; Admin Dose 5 MG; Start 09/17/16 at 18:00 Morphine Sulfate 2 mg 2 mg Q4H PRN IV PAIN LEVEL 7-10 Last administered on 09/22 04:56; Admin Dose 2 MG; Start 09/18/16 at 12:00 Norepinephrine (Levophed) 250 ml @ 1.875 mls/ hr TITRATE IV ; Start 09/19/16 at 18:30 Metoclopramide HCl (Reglan) 10 mg Q6H PRN IV .FOR GASTRIC RESIDUAL > 100 ML Last administered on 09/21/16 13:34; Admin Dose 10 MG; Start 09/20/16 at 12:30 Pantoprazole (Protonix Iv) 40 mg BID@06,18 IV Last administered on 09/24/16 05 :45; Admin Dose 40 MG; Start 09/20/16 at 18:00 Metoprolol Tartrate 25 mg 25 mg BID PO Last administered on 09/23/16 09:05; Admin Dose 25 MG; Start 09/20/16 at 21:00 Ferric Sodium Gluconate Complex/ Sodium Chloride (Ferrlecit/NS) 110 ml @ 100 mls/hr Q24H IVPB Last administered on 09/23/16 15:51; Admin Dose 100 MLS/HR; Start 09/22/16 at 16:30; Stop 09/24/16 at 17:35 Docusate Sodium 100 mg 100 mg BID PRN GTB CONSTIPATION; Start 09/23/16 at 15:30 Levofloxacin/ Dextrose 100 ml @ 100 mls/hr Q48H IVPB Last administered on 09/24 01:33; Admin Dose 100 MLS/HR; Start 09/23/16 at 23:30 Dextrose/Sodium Chloride (D5-1/4ns) 1,000 ml @ 50 mls/hr Q20H IV Last administered on 09/24/16 09:24; Admin Dose 100 MLS/HR; Start 09/23/16 at 23:45 Diagnostic Test (Pha) 1 ea 1 ea Q4 XX Last administered on 09/24/16 14:02; Admin Dose 1 EA; Start 09/24/16 at 13:00 Total Parenteral Nutrition 1,000 ml @ 40 mls/hr Q24H IV Last administered on 14:25; Admin Dose 40 MLS/HR; Start 09/24/16 at 14:00 Fat Emulsion Intravenous (Liposyn Ii 20%) 250 ml @ 10.4 mls/hr Q24H IV Last administered on 09/24/16 14:25; Admin Dose 10.4 MLS/HR; Start 09/24/16 at 14:00 IV Flush (NS 10 ml) 10 ml PRN PRN IV IV PROTOCOL; Start 09/24/16 at 14:00 Methylprednisolone Sodium Succinate (Solu-Medrol) 40 mg QHS IV ; Start 09/25/16 at 21:00 Maynor Broderick DO Sep 24, 2016 16:54
[2016-09-24] MEDS: SOD FERRIC GLUC COMPLX 125 MG in SOD CHLORIDE 0.9% 100 ML IVPB SCH (17:38)
--- NOTE | 2016-09-24 21:30 | CONS ---
Date/Time of Note Date/Time of Note DATE: 09/24/16 TIME: 21:24 Assessment/Plan Assessment/Plan Additional Assessment/Plan PPicture is that of acute renala Injury secondry to antibiotic, and will continue to worsen if this Rx is continued. 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 Consultation Date/Type/Reason Admit Date/Time Aug 31, 2016 at 14:59 Initial Consult Date 09/02/16 Type of Consultation: renal Referring Provider: MARIO ROWE 24 HR Interval Summary Free Text/Dictation No response, remains vent dependent Exam/Review of Systems Vital Signs Vitals Vital Signs Date Time Temp Pulse Resp B/P Pulse Ox O2 Delivery O2 Flow Rate FiO2 09/24/16 20:00 97.7 56 17 148/88 100 Mechanical Ventilator 09/24/16 19:41 30 Intake and Output 09/23/16 09/23/16 09/24/16 15:00 23:00 07:00 Intake Total 52 ml 1860 ml 600 ml Output Total 1050 ml 3300 ml Balance 52 ml 810 ml -2700 ml Exam Constitutional: non-verbal Head: atraumatic, normocephalic Eyes: EOMI, PERRL, nl conjunctiva, nl lids, nl sclera Neck: non-tender, supple Respiratory: other (vent dependant) Cardiovascular: nl pulses, regular rate and rhythm Gastrointestinal: other (GTube site leaking, unable to feed pt) Extremities: normal pulses, other (deformities) Additional Comments BUN/Creat continue to rise. Pt did respond to one dose of lasix given yesterday Results Result Diagram: 09/24/16 0600 09/24/16 0520 Results 24 hrs Laboratory Tests Test 09/24/16 05:20 09/24/16 06:00 09/24/16 13:55 09/24/16 17:38 Alanine Aminotransferase (ALT/SGPT) 18 Albumin 2.6 L Albumin/Globulin Ratio 0.72 Alkaline Phosphatase 58 Anion Gap 21 H Aspartate Amino Transf (AST/SGOT) 12 L Blood Urea Nitrogen 59 H Calcium Level 8.2 L Carbon Dioxide Level 20 L Chloride Level 110 Creatinine 3.18 H Direct Bilirubin 0.00 Globulin 3.60 H Glucose Level 140 Indirect Bilirubin 0.0 Potassium Level 4.8 Sodium Level 146 H Total Bilirubin 0.0 L Total Protein 6.2 Basophils # 0.0 Basophils % 0.1 Eosinophils # 0.0 Eosinophils % 0.0 Hematocrit 31.3 L Hemoglobin 10.3 L Lymphocytes # 0.7 L Lymphocytes % 8.2 L Mean Corpuscular Hemoglobin 26.4 L Mean Corpuscular Hemoglobin Concent 32.9 Mean Corpuscular Volume 80.3 L Mean Platelet Volume 13.1 H Monocytes # 0.7 Monocytes % 7.4 Neutrophils # 7.4 Neutrophils % 83.7 H Nucleated Red Blood Cells # 0.1 H Nucleated Red Blood Cells % 0.6 H Platelet Count 239 Red Blood Count 3.90 L Red Cell Distribution Width 18.5 H White Blood Count 8.8 Bedside Glucose 140 181 Medications Medications Current Medications Collagenase (Santyl) 1 applic DAILY TOP Last administered on 09/24/16 09:24; Admin Dose 1 APPLIC; Start 09/02/16 at 11:30 Hydralazine HCl (Apresoline) 10 mg Q4H PRN IV ELEVATED BLOOD PRESSURE Last administered on 09/17/16 16:11; Admin Dose 10 MG; Start 09/17/16 at 16:00 Metoclopramide HCl (Reglan) 5 mg Q6 IV Last administered on 09/24/16 17:39; Admin Dose 5 MG; Start 09/17/16 at 18:00 Morphine Sulfate 2 mg 2 mg Q4H PRN IV PAIN LEVEL 7-10 Last administered on 09/22 04:56; Admin Dose 2 MG; Start 09/18/16 at 12:00 Norepinephrine (Levophed) 250 ml @ 1.875 mls/ hr TITRATE IV ; Start 09/19/16 at 18:30 Metoclopramide HCl (Reglan) 10 mg Q6H PRN IV .FOR GASTRIC RESIDUAL > 100 ML Last administered on 09/21/16 13:34; Admin Dose 10 MG; Start 09/20/16 at 12:30 Pantoprazole (Protonix Iv) 40 mg BID@06,18 IV Last administered on 09/24/16 17 :40; Admin Dose 40 MG; Start 09/20/16 at 18:00 Metoprolol Tartrate (Lopressor) 25 mg BID PO Last administered on 09/23/16 09: 05; Admin Dose 25 MG; Start 09/20/16 at 21:00 Docusate Sodium 100 mg 100 mg BID PRN GTB CONSTIPATION; Start 09/23/16 at 15:30 Levofloxacin/ Dextrose 100 ml @ 100 mls/hr Q48H IVPB Last administered on 09/24 01:33; Admin Dose 100 MLS/HR; Start 09/23/16 at 23:30 Dextrose/Sodium Chloride (D5-1/4ns) 1,000 ml @ 50 mls/hr Q20H IV Last administered on 09/24/16 09:24; Admin Dose 100 MLS/HR; Start 09/23/16 at 23:45 Diagnostic Test (Pha) 1 ea 1 ea Q4 XX Last administered on 09/24/16 14:02; Admin Dose 1 EA; Start 09/24/16 at 13:00 Total Parenteral Nutrition 1,000 ml @ 40 mls/hr Q24H IV Last administered on 14:25; Admin Dose 40 MLS/HR; Start 09/24/16 at 14:00 Fat Emulsion Intravenous (Liposyn Ii 20%) 250 ml @ 10.4 mls/hr Q24H IV Last administered on 09/24/16 14:25; Admin Dose 10.4 MLS/HR; Start 09/24/16 at 14:00 IV Flush (NS 10 ml) 10 ml PRN PRN IV IV PROTOCOL; Start 09/24/16 at 14:00 Methylprednisolone Sodium Succinate (Solu-Medrol) 40 mg QHS IV ; Start 09/25/16 at 21:00 Amiodarone HCl (Cordarone) 200 mg DAILY NGT ; Start 09/25/16 at 09:00 JAMES PIERSON MD Sep 24, 2016 21:29
[2016-09-25] VITALS (27 sets, daily range): BP systolic 113–168; BP diastolic 68–99; PULSE 52–109; RESP 17–27
[2016-09-25] MEDS: ACCUCHECK XX SCH ×6 (01:00→21:28)
[2016-09-25] MEDS: DEXTROSE 5%-0.225% NACL 1,000 ML IV SCH ×2 (01:58→21:27)
[2016-09-25] MEDS: PANTOPRAZOLE 40 MG INJ IV SCH ×2 (06:08→17:24)
[2016-09-25] MEDS: METOCLOPRAMIDE 10 MG INJ IV SCH ×3 (06:08→17:23)
[2016-09-25] MEDS: AMIODARONE 200 MG TAB NGT SCH (08:42)
[2016-09-25] MEDS: METOPROLOL 25 MG TAB PO SCH ×2 (08:43→21:26)
[2016-09-25] MEDS: COLLAGENASE 30 GM TUBE TOP SCH (08:43)
--- NOTE | 2016-09-25 09:20 | CONS ---
Date/Time of Note Date/Time of Note DATE: 09/25/16 TIME: 09:17 Assessment/Plan Assessment/Plan Additional Assessment/Plan Ventilator settings; assist control of 16, tidal volume 500, PEEP of 5, 30% FiO2. Assessment and recommendations; 1. Patient admitted for pneumonia and sepsis, off antibiotics now. 2. Severe underlying anoxic encephalopathy, patient remains ventilator dependent and remains completely unresponsive. 3. History of renal insufficiency. 4. COPD. 5. Ileus. Continue supportive care. Continue current ventilator settings. Continue TPN. Overall prognosis remains poor. Consultation Date/Type/Reason Admit Date/Time Aug 31, 2016 at 14:59 Initial Consult Date 09/01/16 Type of Consultation: Pulmonary/critical care Referring Provider: MARIO ROWE 24 HR Interval Summary Free Text/Dictation Patient's condition remains stable. Remains ventilator dependent. Has remained hemodynamically stable. Due to underlying severe anoxic encephalopathy patient remains pretty unresponsive which is his underlying mental status. General examination; elderly male, on ventilator via tracheostomy currently in no distress, unresponsive. Exam/Review of Systems Vital Signs Vitals Vital Signs Date Time Temp Pulse Resp B/P Pulse Ox O2 Delivery O2 Flow Rate FiO2 09/25/16 08:00 97.7 58 18 150/96 100 Mechanical Ventilator 09/25/16 04:51 30 Intake and Output 09/24/16 09/24/16 09/25/16 15:00 23:00 07:00 Intake Total 800.4 ml 301.2 ml Output Total 365 ml 600 ml 1150 ml Balance 435.4 ml -298.8 ml -1150 ml Exam HEENT examination; supple neck, no JVD. No lymphadenopathy. Tracheostomy in place with clean insertion site. Patient is edentulous. Pupils are midsize and reactive to light bilaterally and equally. No neck masses, no thyromegaly. No neck bruits. Chest examination; diminished breath sounds throughout. No added sounds. S1- S2 audible, no murmurs. Regular rhythm. Abdomen examination; soft, bowel sounds audible. G-tube in place. Colostomy in place. No organomegaly. Extremity examination; no peripheral edema. REEL SYSTEM OPERATOR examination; patient remains unresponsive. Results Result Diagram: 09/24/16 0600 09/24/16 0520 Results 24 hrs Laboratory Tests Test 09/24/16 13:55 09/24/16 17:38 09/24/16 21:24 09/25/16 01:49 Bedside Glucose 140 181 171 144 Test 09/25/16 06:17 09/25/16 07:50 Bedside Glucose 136 132 Medications Medications Current Medications Collagenase (Santyl) 1 applic DAILY TOP Last administered on 09/25/16 08:43; Admin Dose 1 APPLIC; Start 09/02/16 at 11:30 Hydralazine HCl (Apresoline) 10 mg Q4H PRN IV ELEVATED BLOOD PRESSURE Last administered on 09/17/16 16:11; Admin Dose 10 MG; Start 09/17/16 at 16:00 Metoclopramide HCl (Reglan) 5 mg Q6 IV Last administered on 09/25/16 06:08; Admin Dose 5 MG; Start 09/17/16 at 18:00 Morphine Sulfate 2 mg 2 mg Q4H PRN IV PAIN LEVEL 7-10 Last administered on 09/22 04:56; Admin Dose 2 MG; Start 09/18/16 at 12:00 Norepinephrine (Levophed) 250 ml @ 1.875 mls/ hr TITRATE IV ; Start 09/19/16 at 18:30 Metoclopramide HCl (Reglan) 10 mg Q6H PRN IV .FOR GASTRIC RESIDUAL > 100 ML Last administered on 09/21/16 13:34; Admin Dose 10 MG; Start 09/20/16 at 12:30 Pantoprazole (Protonix Iv) 40 mg BID@06,18 IV Last administered on 09/25/16 06 :08; Admin Dose 40 MG; Start 09/20/16 at 18:00 Metoprolol Tartrate (Lopressor) 25 mg BID PO Last administered on 09/24/16 22: 17; Admin Dose 25 MG; Start 09/20/16 at 21:00 Docusate Sodium 100 mg 100 mg BID PRN GTB CONSTIPATION; Start 09/23/16 at 15:30 Levofloxacin/ Dextrose 100 ml @ 100 mls/hr Q48H IVPB Last administered on 09/24 01:33; Admin Dose 100 MLS/HR; Start 09/23/16 at 23:30 Dextrose/Sodium Chloride (D5-1/4ns) 1,000 ml @ 50 mls/hr Q20H IV Last administered on 09/25/16 01:58; Admin Dose 50 MLS/HR; Start 09/23/16 at 23:45 Diagnostic Test (Pha) 1 ea 1 ea Q4 XX Last administered on 09/25/16 05:00; Admin Dose 1 EA; Start 09/24/16 at 13:00 Total Parenteral Nutrition 1,000 ml @ 40 mls/hr Q24H IV Last administered on 14:25; Admin Dose 40 MLS/HR; Start 09/24/16 at 14:00 Fat Emulsion Intravenous (Liposyn Ii 20%) 250 ml @ 10.4 mls/hr Q24H IV Last administered on 09/24/16 14:25; Admin Dose 10.4 MLS/HR; Start 09/24/16 at 14:00 IV Flush (NS 10 ml) 10 ml PRN PRN IV IV PROTOCOL; Start 09/24/16 at 14:00 Methylprednisolone Sodium Succinate (Solu-Medrol) 40 mg QHS IV ; Start 09/25/16 at 21:00 Amiodarone HCl (Cordarone) 200 mg DAILY NGT ; Start 09/25/16 at 09:00 SHAAN BUTT Sep 25, 2016 09:20
[2016-09-25 09:40] LABS: ADD SCAN DIFF NO
[2016-09-25 09:45] LABS: EOSINOPHILS % 0.3 % (0.0-7.0); HEMATOCRIT 30.3 % (42.0-52.0); LYMPHOCYTES # 1.5 10^3/ul (0.8-2.9); LYMPHOCYTES % 17.7 % (15.0-51.0); MEAN CORPUSCULAR HEMOGLOBIN 26.7 pg (29.0-33.0); MEAN CORPUSCULAR VOLUME 80.8 fl (82.0-101.0); MEAN PLATELET VOLUME 12.4 fl (7.4-10.4); MONOCYTE # 0.9 10^3/ul (0.3-0.9); MONOCYTES % 10.3 % (0.0-11.0); NEUTROPHIL # 6.2 10^3/ul (1.6-7.5); NEUTROPHILS % 71.4 % (39.0-77.0); NUCLEATED RED BLOOD CELLS # 0.1 10^3/ul (0.0-0.0); NUCLEATED RED BLOOD CELLS% 0.9 /100WBC (0.0-0.0); PLATELET COUNT 213 10^3/UL (140-415); RED BLOOD COUNT 3.75 10^6/ul (4.70-6.10); RED CELL DISTRIBUTION WIDTH 18.6 % (11.5-14.5); WHITE BLOOD COUNT 8.7 10^3/ul (4.8-10.8)
[2016-09-25 09:53] LABS: POTASSIUM 4.1 mmol/L (3.5-5.1)
[2016-09-25] MEDS: TOBRAMYCIN/0.25NS 300 MG/5 ML INHAL NEB SCH ×2 (09:55→19:27)
[2016-09-25 09:56] LABS: CREATININE 2.86 mg/dl (0.61-1.24)
[2016-09-25 09:57] LABS: MAGNESIUM 1.8 mg/dl (1.7-2.5); PHOSPHORUS 2.4 mg/dl (2.5-4.9)
[2016-09-25] MEDS: hydrALAzine 20 MG INJ IV PRN (10:20)
--- NOTE | 2016-09-25 10:48 | PN ---
Date/Time of Note Date/Time of Note DATE: 09/25/16 TIME: 10:44 Assessment/Plan VTE Prophylaxis VTE Prophylaxis Intervention: other Lines/Catheters IV Catheter Type (from Nrsg): PICC Line Central line still needed: Yes Urinary Cath still in place: Yes Reason Cath still needed: urinary retention Assessment/Plan Assessment/Plan - SBO per CT. G-tube feeding is on hold. N.p.o. start TPN. - Dr. Torres is asked to see patient in general surgery consultation. - Systemic inflammatory response syndrome with leukocytosis, possible aspiration. Continue broad-spectrum antibiotics, monitor chest x-ray. - RAYNA 2 to dehydration and SIRS, continue IV fluids . - Dr Miramontes is following in nephrology consultation.. - Dysphagia, s/p J-tube placement. Patient s/p high residual and emesis. - Follow-up gastroenterology recommendation. 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 Continue Protonix. - Dr. Pryor is following the patient in gastroenterology consultation. - Anemia 2 to GI bleed, monitor H&H, transfuse as needed. - Dehydration secondary to vomiting, resolved. - S/p sepsis with Staph bacteremia 2 UTI and HCAP. -Dr Kitty yoo is following in ID consultation. Continue abx per ID. 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 - Ventilator-dependent respiratory failure with tracheostomy. - Dr. Morrison is following from pulmonology standpoint. Continue bronchodilators and pulmonary toilet. - Chronic obstructive pulmonary disease. - Chronic Chaudhari catheter. - Colostomy - Hypertension, metoprolol and hydralazine as needed. - Bedbound status. - Acute kidney injury, resolved. - MRSA UTI , s/p treatment. - MRSA of nares. Continue Bactroban. - Intermittent atrial tachycardia. - Dr. Broderick is is following in cardiology consultation, continue telemetry monitoring. Monitor electrolytes. Continue sequential compression device for deep venous thrombosis prophylaxis and Protonix for peptic ulcer disease prophylaxis. Further recommendations based on clinical course. Critical care time spent 35 mins.Plan of care discussed with Dr. Meeks. Subjective 24 Hr Interval Summary Free Text/Dictation nad, no gi bleed reported. afebrile. dw staff. Subjective hx not possible: pt non-verbal Constitutional: requiring IVF, requiring O2 Exam/Review of Systems Vital Signs Vitals Vital Signs Date Time Temp Pulse Resp B/P Pulse Ox O2 Delivery O2 Flow Rate FiO2 09/25/16 10:00 73 18 163/95 100 Mechanical Ventilator 09/25/16 08:00 97.7 09/25/16 04:51 30 Intake and Output 09/24/16 09/24/16 09/25/16 15:00 23:00 07:00 Intake Total 800.4 ml 301.2 ml Output Total 365 ml 600 ml 1150 ml Balance 435.4 ml -298.8 ml -1150 ml Exam Constitutional: non-verbal Psych: confusion Eyes: nl sclera ENMT: nl external ears & nose Neck: non-tender Respiratory: diminished breath sounds Cardiovascular: nl pulses Gastrointestinal: non-tender, soft Musculoskeletal: muscle weakness Neurological: lethargic, unresponsive Lymph: nontender Results Result Diagram: 09/25/1691909/25/1620 Results 24 hrs Laboratory Tests Test 09/24/16 13:55 09/24/16 17:38 09/24/16 21:24 09/25/16 01:49 Bedside Glucose 140 181 171 144 Test 09/25/16 06:17 09/25/16 07:50 09/25/16 09:20 Bedside Glucose 136 132 Anion Gap 15 Basophils # 0.0 Basophils % 0.0 Blood Urea Nitrogen 58 H Calcium Level 8.0 L Carbon Dioxide Level 22 Chloride Level 108 Creatinine 2.86 H Eosinophils # 0.0 Eosinophils % 0.3 Glucose Level 140 Hematocrit 30.3 L Hemoglobin 10.0 L Lymphocytes # 1.5 Lymphocytes % 17.7 Magnesium Level 1.8 Mean Corpuscular Hemoglobin 26.7 L Mean Corpuscular Hemoglobin Concent 33.0 Mean Corpuscular Volume 80.8 L Mean Platelet Volume 12.4 H Monocytes # 0.9 Monocytes % 10.3 Neutrophils # 6.2 Neutrophils % 71.4 Nucleated Red Blood Cells # 0.1 H Nucleated Red Blood Cells % 0.9 H Phosphorus Level 2.4 L Platelet Count 213 Potassium Level 4.1 Red Blood Count 3.75 L Red Cell Distribution Width 18.6 H Sodium Level 141 White Blood Count 8.7 Medications Medications Current Medications Collagenase (Santyl) 1 applic DAILY TOP Last administered on 09/25/16t 08:43; Admin Dose 1 APPLIC; Start 09/02/16 at 11:30 Hydralazine HCl (Apresoline) 10 mg Q4H PRN IV ELEVATED BLOOD PRESSURE Last administered on 09/25/16 10:20; Admin Dose 10 MG; Start 09/17/16 at 16:00 Metoclopramide HCl (Reglan) 5 mg Q6 IV Last administered on 09/25/16 06:08; Admin Dose 5 MG; Start 09/17/16 at 18:00 Morphine Sulfate 2 mg 2 mg Q4H PRN IV PAIN LEVEL 7-10 Last administered on 09/22 04:56; Admin Dose 2 MG; Start 09/18/16 at 12:00 Norepinephrine (Levophed) 250 ml @ 1.875 mls/ hr TITRATE IV ; Start 09/19/16 at 18:30 Metoclopramide HCl (Reglan) 10 mg Q6H PRN IV .FOR GASTRIC RESIDUAL > 100 ML Last administered on 09/21/16 13:34; Admin Dose 10 MG; Start 09/20/16 at 12:30 Pantoprazole (Protonix Iv) 40 mg BID@06,18 IV Last administered on 09/25/16 06 :08; Admin Dose 40 MG; Start 09/20/16 at 18:00 Metoprolol Tartrate (Lopressor) 25 mg BID PO Last administered on 09/24/16 22: 17; Admin Dose 25 MG; Start 09/20/16 at 21:00 Docusate Sodium 100 mg 100 mg BID PRN GTB CONSTIPATION; Start 09/23/16 at 15:30 Levofloxacin/ Dextrose 100 ml @ 100 mls/hr Q48H IVPB Last administered on 09/24 01:33; Admin Dose 100 MLS/HR; Start 09/23/16 at 23:30 Dextrose/Sodium Chloride (D5-1/4ns) 1,000 ml @ 50 mls/hr Q20H IV Last administered on 09/25/16 01:58; Admin Dose 50 MLS/HR; Start 09/23/16 at 23:45 Diagnostic Test (Pha) 1 ea 1 ea Q4 XX Last administered on 09/25/16 05:00; Admin Dose 1 EA; Start 09/24/16 at 13:00 Total Parenteral Nutrition 1,000 ml @ 60 mls/hr [id number] IV Last administered on 09/24/16 14:25; Admin Dose 40 MLS/HR; Start 09/24/16 at 14:00 Fat Emulsion Intravenous (Liposyn Ii 20%) 250 ml @ 10.4 mls/hr Q24H IV Last administered on 09/24/16 14:25; Admin Dose 10.4 MLS/HR; Start 09/24/16 at 14:00 IV Flush (NS 10 ml) 10 ml PRN PRN IV IV PROTOCOL; Start 09/24/16 at 14:00 Methylprednisolone Sodium Succinate (Solu-Medrol) 40 mg QHS IV ; Start 09/25/16 at 21:00 Amiodarone HCl (Cordarone) 200 mg DAILY NGT ; Start 09/25/16 at 09:00 MARIO ROWE Sep 25, 2016 10:48
[2016-09-25] MEDS: FAT EMULSION 20% 250 ML IV SCH (14:15)
--- NOTE | 2016-09-25 14:19 | CONS ---
Date/Time of Note Date/Time of Note DATE: 09/25/16 TIME: 14:14 Assessment/Plan Assessment/Plan Additional Assessment/Plan assessment/impression - Acute on chronic respiratory failure--likely due to central airway obstruction from aspirated tube feeds- resolved - SBO/ileus - High residuals with probable gastroparesis per GI - on reglan - SIRS (Tx to ICU 09/19/16) with tachycardia and leukocytosis likely d/t stress response 2/ aspiration and RAYNA vs early sepsis / asp PNA. 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 the wound culture grew carbapenemase producing kleb, enterococci and pseudo - leakage of gastric contents from GT site, now has ostomy bag - resolved - dysphagia s/p EGD and new G tube placement 09/15/2016 - infection of wound of RLE due to pseudomonas. 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 - h/o thrush - HCV infection - colostomy status - moderate to severe protein calorie malnutrition - BLE papule rash - possibly d/t heat rash vs contact dermatitis vs delayed abx sensitivity - slowly improving - s/p Vanco (09/02/16-09/12/16; 09/20/16-09/22/16) for MRSA and levofloxacin (09/05/16- 09/12/16) intermediate activity against carbapenemase producing kleb; mupirocin for MRSA decolonization (09/02/16-09/14/16) recommendations: - IV Tobra (09/06/16-) was changed to Tobra inhalation and start IV Levaquin 500 mg q48 hours (09/24/16-) - Pt has multiple MDR organisms and it is impossible to cover all. Abx selection is limited d/t worsening renal function. Overall prognosis remains poor and we recommend Hospice evaluation. - Trend WBC (normalized) and renal fxn (still worsening) - Discontinue topical antimicrobials (Clotrimazole and Bactroban) as BLE rash has resolved - Sage Cx for temp >100.4 Consultation Date/Type/Reason Admit Date/Time Aug 31, 2016 at 14:59 Initial Consult Date 09/02/16 Type of Consultation: Infectious Diseases Referring Provider: MARIO ROWE 24 HR Interval Summary Free Text/Dictation No stool output today, still with SBO. PICC placed yesterday, now on TPN. Vent 30/5 minimal secretions. Good UOP via vincent. Exam/Review of Systems Vital Signs Vitals Vital Signs Date Time Temp Pulse Resp B/P Pulse Ox O2 Delivery O2 Flow Rate FiO2 09/25/16 13:00 109 20 143/87 98 Mechanical Ventilator 09/25/16 12:00 97.8 09/25/16 11:10 30 Intake and Output 09/24/16 09/24/16 09/25/16 15:00 23:00 07:00 Intake Total 800.4 ml 301.2 ml Output Total 365 ml 600 ml 1150 ml Balance 435.4 ml -298.8 ml -1150 ml Exam Constitutional: frail, other (non-communicative; chronically debilitated, cachectic ) Head: atraumatic, normocephalic, other (temporal wasting noted) Neck: other (trach midline) Respiratory: Diminished breath sounds. No wheezing. Cardiovascular: nl pulses, regular rate and rhythm Gastrointestinal: bowel sounds hypo, other (colostomy intact - stoma pink/no stool; NGT to sxn; G tube to gravity drainage with trivial output), soft, less distended Genitourinary - Male: other (vincent cath intact with clear yellow urine) Musculoskeletal: muscle weakness Extremities: normal pulses, other (bilateral foot drop noted), trace edema R>L , contracted No clubbing, No cyanosis Neurological: unresponsive Skin: other (RLE posterior lateral dressing c/d/i); no rash noted Results Result Diagram: 2/25/17 0920 2/25/17 0920 Results 24 hrs Laboratory Tests Test 09/24/16 17:38 09/24/16 21:24 09/25/16 01:49 09/25/16 06:17 Bedside Glucose 181 171 144 136 Test 09/25/16 07:50 09/25/16 09:20 09/25/16 11:16 Bedside Glucose 132 133 Anion Gap 15 Basophils # 0.0 Basophils % 0.0 Blood Urea Nitrogen 58 H Calcium Level 8.0 L Carbon Dioxide Level 22 Chloride Level 108 Creatinine 2.86 H Eosinophils # 0.0 Eosinophils % 0.3 Glucose Level 140 Hematocrit 30.3 L Hemoglobin 10.0 L Lymphocytes # 1.5 Lymphocytes % 17.7 Magnesium Level 1.8 Mean Corpuscular Hemoglobin 26.7 L Mean Corpuscular Hemoglobin Concent 33.0 Mean Corpuscular Volume 80.8 L Mean Platelet Volume 12.4 H Monocytes # 0.9 Monocytes % 10.3 Neutrophils # 6.2 Neutrophils % 71.4 Nucleated Red Blood Cells # 0.1 H Nucleated Red Blood Cells % 0.9 H Phosphorus Level 2.4 L Platelet Count 213 Potassium Level 4.1 Red Blood Count 3.75 L Red Cell Distribution Width 18.6 H Sodium Level 141 White Blood Count 8.7 Medications Medications Current Medications Collagenase (Santyl) 1 applic DAILY TOP Last administered on 09/25/16 08:43; Admin Dose 1 APPLIC; Start 09/02/16 at 11:30 Hydralazine HCl (Apresoline) 10 mg Q4H PRN IV ELEVATED BLOOD PRESSURE Last administered on 09/25/16 10:20; Admin Dose 10 MG; Start 09/17/16 at 16:00 Metoclopramide HCl (Reglan) 5 mg Q6 IV Last administered on 09/25/16 11:13; Admin Dose 5 MG; Start 09/17/16 at 18:00 Morphine Sulfate 2 mg 2 mg Q4H PRN IV PAIN LEVEL 7-10 Last administered on 09/22 04:56; Admin Dose 2 MG; Start 09/18/16 at 12:00 Norepinephrine (Levophed) 250 ml @ 1.875 mls/ hr TITRATE IV ; Start 09/19/16 at 18:30 Metoclopramide HCl (Reglan) 10 mg Q6H PRN IV .FOR GASTRIC RESIDUAL > 100 ML Last administered on 09/21/16 13:34; Admin Dose 10 MG; Start 09/20/16 at 12:30 Pantoprazole (Protonix Iv) 40 mg BID@06,18 IV Last administered on 09/25/16 06 :08; Admin Dose 40 MG; Start 09/20/16 at 18:00 Metoprolol Tartrate (Lopressor) 25 mg BID PO Last administered on 09/24/16 22: 17; Admin Dose 25 MG; Start 09/20/16 at 21:00 Docusate Sodium 100 mg 100 mg BID PRN GTB CONSTIPATION; Start 09/23/16 at 15:30 Levofloxacin/ Dextrose 100 ml @ 100 mls/hr Q48H IVPB Last administered on 09/24 01:33; Admin Dose 100 MLS/HR; Start 09/23/16 at 23:30 Dextrose/Sodium Chloride (D5-1/4ns) 1,000 ml @ 50 mls/hr Q20H IV Last administered on 09/25/16 01:58; Admin Dose 50 MLS/HR; Start 09/23/16 at 23:45 Diagnostic Test (Pha) 1 ea 1 ea Q4 XX Last administered on 09/25/16 05:00; Admin Dose 1 EA; Start 09/24/16 at 13:00 Total Parenteral Nutrition 1,000 ml @ 60 mls/hr [id number] IV Last administered on 09/24/16 14:25; Admin Dose 40 MLS/HR; Start 09/24/16 at 14:00 Fat Emulsion Intravenous (Liposyn Ii 20%) 250 ml @ 10.4 mls/hr Q24H IV Last administered on 09/24/16 14:25; Admin Dose 10.4 MLS/HR; Start 09/24/16 at 14:00 IV Flush (NS 10 ml) 10 ml PRN PRN IV IV PROTOCOL; Start 09/24/16 at 14:00 Methylprednisolone Sodium Succinate (Solu-Medrol) 40 mg QHS IV ; Start 09/25/16 at 21:00 Amiodarone HCl (Cordarone) 200 mg DAILY NGT ; Start 09/25/16 at 09:00 SAVANA DAS Sep 25, 2016 14:19
[2016-09-25] MEDS: TPN 1,000 ML IV SCH (14:36)
--- NOTE | 2016-09-25 18:38 | CONS ---
Date/Time of Note Date/Time of Note DATE: 09/25/16 TIME: 18:36 Assessment/Plan Assessment/Plan Chief Complaint/Hosp Course With increased Urine Vol, Somewhat decreasing Creat renal fn may be on the verge of reversal. Problems: Consultation Date/Type/Reason Admit Date/Time Aug 31, 2016 at 14:59 Initial Consult Date 09/02/16 Type of Consultation: Renal Referring Provider: MARIO ROWE Exam/Review of Systems Vital Signs Vitals Vital Signs Date Time Temp Pulse Resp B/P Pulse Ox O2 Delivery O2 Flow Rate FiO2 09/25/16 18:14 96 24 98 30 09/25/16 18:00 131/89 Mechanical Ventilator 09/25/16 16:00 98.0 Intake and Output 09/24/16 09/24/16 09/25/16 15:00 23:00 07:00 Intake Total 800.4 ml 301.2 ml Output Total 365 ml 600 ml 1150 ml Balance 435.4 ml -298.8 ml -1150 ml Exam Moribund, no response Respiratory: other (Vent dependant) Extremities: other (deformities) Results Result Diagram: 09/25/16 0920 09/25/16 0920 Results 24 hrs Laboratory Tests Test 09/24/16 21:24 09/25/16 01:49 09/25/16 06:17 09/25/16 07:50 Bedside Glucose 171 144 136 132 Test 09/25/16 09:20 09/25/16 11:16 09/25/16 17:26 Anion Gap 15 Basophils # 0.0 Basophils % 0.0 Blood Urea Nitrogen 58 H Calcium Level 8.0 L Carbon Dioxide Level 22 Chloride Level 108 Creatinine 2.86 H Eosinophils # 0.0 Eosinophils % 0.3 Glucose Level 140 Hematocrit 30.3 L Hemoglobin 10.0 L Lymphocytes # 1.5 Lymphocytes % 17.7 Magnesium Level 1.8 Mean Corpuscular Hemoglobin 26.7 L Mean Corpuscular Hemoglobin Concent 33.0 Mean Corpuscular Volume 80.8 L Mean Platelet Volume 12.4 H Monocytes # 0.9 Monocytes % 10.3 Neutrophils # 6.2 Neutrophils % 71.4 Nucleated Red Blood Cells # 0.1 H Nucleated Red Blood Cells % 0.9 H Phosphorus Level 2.4 L Platelet Count 213 Potassium Level 4.1 Red Blood Count 3.75 L Red Cell Distribution Width 18.6 H Sodium Level 141 White Blood Count 8.7 Bedside Glucose 133 138 Medications Medications Current Medications Collagenase (Santyl) 1 applic DAILY TOP Last administered on 09/25/16 08:43; Admin Dose 1 APPLIC; Start 09/02/16 at 11:30 Hydralazine HCl (Apresoline) 10 mg Q4H PRN IV ELEVATED BLOOD PRESSURE Last administered on 09/25/16 10:20; Admin Dose 10 MG; Start 09/17/16 at 16:00 Metoclopramide HCl (Reglan) 5 mg Q6 IV Last administered on 09/25/16 17:23; Admin Dose 5 MG; Start 09/17/16 at 18:00 Morphine Sulfate 2 mg 2 mg Q4H PRN IV PAIN LEVEL 7-10 Last administered on 09/22 04:56; Admin Dose 2 MG; Start 09/18/16 at 12:00 Norepinephrine (Levophed) 250 ml @ 1.875 mls/ hr TITRATE IV ; Start 09/19/16 at 18:30; Stop 09/25/16 at 19:00 Metoclopramide HCl (Reglan) 10 mg Q6H PRN IV .FOR GASTRIC RESIDUAL > 100 ML Last administered on 09/21/16 13:34; Admin Dose 10 MG; Start 09/20/16 at 12:30 Pantoprazole (Protonix Iv) 40 mg BID@06,18 IV Last administered on 09/25/16 17 :24; Admin Dose 40 MG; Start 09/20/16 at 18:00 Metoprolol Tartrate (Lopressor) 25 mg BID PO Last administered on 09/24/16 22: 17; Admin Dose 25 MG; Start 09/20/16 at 21:00 Docusate Sodium 100 mg 100 mg BID PRN GTB CONSTIPATION; Start 09/23/16 at 15:30 Levofloxacin/ Dextrose 100 ml @ 100 mls/hr Q48H IVPB Last administered on 09/24 01:33; Admin Dose 100 MLS/HR; Start 09/23/16 at 23:30 Dextrose/Sodium Chloride (D5-1/4ns) 1,000 ml @ 50 mls/hr Q20H IV Last administered on 09/25/16 01:58; Admin Dose 50 MLS/HR; Start 09/23/16 at 23:45 Diagnostic Test (Pha) 1 ea 1 ea Q4 XX Last administered on 09/25/16 05:00; Admin Dose 1 EA; Start 09/24/16 at 13:00 Total Parenteral Nutrition 1,000 ml @ 60 mls/hr [id number] IV Last administered on 09/25/16 14:36; Admin Dose 60 MLS/HR; Start 09/24/16 at 14:00 Fat Emulsion Intravenous (Liposyn Ii 20%) 250 ml @ 10.4 mls/hr Q24H IV Last administered on 09/25/16 14:15; Admin Dose 10.4 MLS/HR; Start 09/24/16 at 14:00 IV Flush (NS 10 ml) 10 ml PRN PRN IV IV PROTOCOL; Start 09/24/16 at 14:00 Methylprednisolone Sodium Succinate (Solu-Medrol) 40 mg QHS IV ; Start 09/25/16 at 21:00 Amiodarone HCl 200 mg 200 mg DAILY NGT ; Start 09/25/16 at 09:00 Norepinephrine/ Dextrose (Levophed/D5W) 500 ml @ 1.87 mls/hr TITRATE IV ; Start 09/25/16 at 17:00 JAMES PIERSON MD Sep 25, 2016 18:38
[2016-09-25] MEDS: METHYLPREDNISOLONE 40 MG INJ IV SCH (21:25)
[2016-09-26] VITALS (22 sets, daily range): BP systolic 77–148; BP diastolic 51–97; PULSE 63–89; RESP 17–26
[2016-09-26] MEDS: LEVOFLOXACIN 500MG/D5W (PMX) 100 ML IVPB SCH
[2016-09-26] MEDS: METOCLOPRAMIDE 10 MG INJ IV SCH ×4 (00:14→18:03)
[2016-09-26] MEDS: ACCUCHECK XX SCH ×6 (00:16→21:16)
[2016-09-26 05:43] LABS: ADD SCAN DIFF NO
[2016-09-26 05:58] LABS: ALBUMIN 2.4 g/dl (3.3-4.9); POTASSIUM 3.8 mmol/L (3.5-5.1)
[2016-09-26 06:00] LABS: CREATININE 2.53 mg/dl (0.61-1.24)
[2016-09-26 06:01] LABS: ALBUMIN/GLOBULIN RATIO 0.8; TOTAL PROTEIN 5.4 g/dl (6.1-8.1)
[2016-09-26 06:02] LABS: CALCIUM 7.9 mg/dl (8.4-10.2)
[2016-09-26] MEDS: PANTOPRAZOLE 40 MG INJ IV SCH ×2 (06:11→18:02)
[2016-09-26 06:28] LABS: ABNORMAL IP MESSAGE 1; HEMATOCRIT 32.4 % (42.0-52.0); HEMOGLOBIN 11.1 g/dl (14.0-18.0); LYMPHOCYTES # 0.5 10^3/ul (0.8-2.9); LYMPHOCYTES % 11.3 % (15.0-51.0); MEAN CORPUSCULAR HEMOGLOBIN 27.2 pg (29.0-33.0); MEAN CORPUSCULAR HGB CONC 34.3 g/dl (32.0-37.0); MEAN CORPUSCULAR VOLUME 79.4 fl (82.0-101.0); MONOCYTE # 0.2 10^3/ul (0.3-0.9); MONOCYTES % 4.5 % (0.0-11.0); NEUTROPHIL # 3.5 10^3/ul (1.6-7.5); NUCLEATED RED BLOOD CELLS # 0.1 10^3/ul (0.0-0.0); NUCLEATED RED BLOOD CELLS% 2.4 /100WBC (0.0-0.0); PLATELET COUNT 209 10^3/UL (140-415); RED BLOOD COUNT 4.08 10^6/ul (4.70-6.10); RED CELL DISTRIBUTION WIDTH 18.7 % (11.5-14.5); WHITE BLOOD COUNT 4.2 10^3/ul (4.8-10.8)
[2016-09-26] MEDS: TPN 1,000 ML IV SCH ×2 (06:37→22:16)
[2016-09-26] MEDS: AMIODARONE 200 MG TAB NGT SCH (09:26)
[2016-09-26] MEDS: METOPROLOL 25 MG TAB PO SCH ×2 (09:32→21:16)
[2016-09-26] MEDS: COLLAGENASE 30 GM TUBE TOP SCH (09:33)
--- NOTE | 2016-09-26 09:42 | PN ---
Date/Time of Note Date/Time of Note DATE: 09/26/16 TIME: 09:35 Assessment/Plan VTE Prophylaxis VTE Prophylaxis Intervention: SCD's Lines/Catheters IV Catheter Type (from Nrs): Mckenzie Central line still needed: Yes Urinary Cath still in place: Yes Reason Cath still needed: urinary retention Assessment/Plan Assessment/Plan - SBO per CT. G-tube feeding is on hold. N.p.o. start TPN. - per Dr. Torres is asked to see patient in general surgery consultation. - Systemic inflammatory response syndrome with leukocytosis, possible aspiration. Continue broad-spectrum antibiotics, monitor chest x-ray. - RAYNA 2 to dehydration and SIRS, continue IV fluids. -pe Dr Miramontes is following in nephrology consultation.. - Dysphagia, s/p J-tube placement. Patient s/p high residual and emesis. - per GI - Upper gastrointestinal bleeding secondary to gastrostomy site ulcer disease. Continue Protonix. - per Dr. Pryor in gastroenterology consultation. - Anemia 2 to GI bleed, monitor H&H, transfuse as needed. - Dehydration secondary to vomiting, resolved. - S/p sepsis with Staph bacteremia 2 UTI and HCAP. - pe Dr Tang in ID consultation. Continue abx per ID. 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 - per Dr. Morrison in pulmonology. Continue bronchodilators and pulmonary toilet. - Chronic obstructive pulmonary disease. - Chronic Chaudhari catheter. - Colostomy - Hypertension, metoprolol and hydralazine as needed. - Bedbound status. - Acute kidney injury, resolved. - MRSA UTI , s/p treatment. - MRSA of nares. Continue Bactroban. - Intermittent atrial tachycardia. - per Dr. Broderick in cardiology consultation, continue telemetry monitoring. Monitor electrolytes. Continue sequential compression device for deep venous thrombosis prophylaxis and Protonix for peptic ulcer disease prophylaxis. Further recommendations depend upon patient clinical course.Total critical time spent 4 mins. yue Meeks Subjective 24 Hr Interval Summary Free Text/Dictation NAD, afebrile, trach to vent. no new issues reported by staff. dw staff. Subjective hx not possible: pt critical status Constitutional: requiring IVF, requiring O2 Exam/Review of Systems Vital Signs Vitals Vital Signs Date Time Temp Pulse Resp B/P Pulse Ox O2 Delivery O2 Flow Rate FiO2 09/26/16 08:52 74 09/26/16 05:32 20 100 30 09/26/16 02:00 139/95 09/26/16 00:00 98.2 Mechanical Ventilator Intake and Output 09/25/16 09/25/16 09/26/16 15:00 23:00 07:00 Intake Total 672.0 ml 70.4 ml 1282.8 ml Output Total 350 ml 500 ml 850 ml Balance 322.0 ml -429.6 ml 432.8 ml Exam Constitutional: frail, non-verbal Psych: nl mood/affect Head: atraumatic Eyes: nl sclera ENMT: nl external ears & nose Neck: non-tender Respiratory: diminished breath sounds Cardiovascular: nl pulses Gastrointestinal: non-tender, other (gt connected to bag, ngt clamped. colostomy intact.), soft Genitourinary - Male: other (fc- clear/yello urine) Musculoskeletal: muscle weakness Extremities: normal pulses Neurological: lethargic Lymph: nontender Results Result Diagram: 09/26/16 0455 09/26/16 0455 Results 24 hrs Laboratory Tests Test 09/25/16 11:16 09/25/16 17:26 09/25/16 20:32 09/26/16 00:15 Bedside Glucose 133 138 147 207 Test 09/26/16 04:55 09/26/16 06:30 09/26/16 09:20 Alanine Aminotransferase (ALT/SGPT) 13 Albumin 2.4 L Albumin/Globulin Ratio 0.80 Alkaline Phosphatase 44 Anion Gap 16 Aspartate Amino Transf (AST/SGOT) 12 L Basophils # 0.0 Basophils % 0.0 Blood Urea Nitrogen 56 H Calcium Level 7.9 L Carbon Dioxide Level 19 L Chloride Level 107 Creatinine 2.53 H Direct Bilirubin 0.00 Eosinophils # 0.0 Eosinophils % 0.0 Globulin 3.00 Glucose Level 158 Hematocrit 32.4 L Hemoglobin 11.1 L Indirect Bilirubin 0.0 Lymphocytes # 0.5 L Lymphocytes % 11.3 L Mean Corpuscular Hemoglobin 27.2 L Mean Corpuscular Hemoglobin Concent 34.3 Mean Corpuscular Volume 79.4 L Mean Platelet Volume Monocytes # 0.2 L Monocytes % 4.5 Neutrophils # 3.5 Neutrophils % 83.0 H Nucleated Red Blood Cells # 0.1 H Nucleated Red Blood Cells % 2.4 H Platelet Count 209 Potassium Level 3.8 Red Blood Count 4.08 L Red Cell Distribution Width 18.7 H Sodium Level 138 Total Bilirubin 0.0 L Total Protein 5.4 L White Blood Count 4.2 #L Bedside Glucose 165 149 Medications Medications Current Medications Collagenase (Santyl) 1 applic DAILY TOP Last administered on 09/26/16 09:33; Admin Dose 1 APPLIC; Start 09/02/16 at 11:30 Hydralazine HCl (Apresoline) 10 mg Q4H PRN IV ELEVATED BLOOD PRESSURE Last administered on 09/25/16 10:20; Admin Dose 10 MG; Start 09/17/16 at 16:00 Metoclopramide HCl (Reglan) 5 mg Q6 IV Last administered on 09/26/16 06:12; Admin Dose 5 MG; Start 09/17/16 at 18:00 Morphine Sulfate (morphine) 2 mg Q4H PRN IV PAIN LEVEL 7-10 Last administered on 09/22/16 04:56; Admin Dose 2 MG; Start 09/18/16 at 12:00 Metoclopramide HCl (Reglan) 10 mg Q6H PRN IV .FOR GASTRIC RESIDUAL > 100 ML Last administered on 09/21/16 13:34; Admin Dose 10 MG; Start 09/20/16 at 12:30 Pantoprazole (Protonix Iv) 40 mg BID@06,18 IV Last administered on 09/26/16 06 :11; Admin Dose 40 MG; Start 09/20/16 at 18:00 Metoprolol Tartrate (Lopressor) 25 mg BID PO Last administered on 09/26/16 09: 32; Admin Dose 25 MG; Start 09/20/16 at 21:00 Docusate Sodium 100 mg 100 mg BID PRN GTB CONSTIPATION; Start 09/23/16 at 15:30 Levofloxacin/ Dextrose 100 ml @ 100 mls/hr Q48H IVPB Last administered on 09/26 00:00; Admin Dose 100 MLS/HR; Start 09/23/16 at 23:30 Dextrose/Sodium Chloride (D5-1/4ns) 1,000 ml @ 50 mls/hr Q20H IV Last administered on 09/25/16 21:27; Admin Dose 50 MLS/HR; Start 09/23/16 at 23:45 Diagnostic Test (Pha) 1 ea 1 ea Q4 XX Last administered on 09/26/16 09:29; Admin Dose 1 EA; Start 09/24/16 at 13:00 Total Parenteral Nutrition 1,000 ml @ 60 mls/hr [id number] IV Last administered on 09/26/16 06:37; Admin Dose 60 MLS/HR; Start 09/24/16 at 14:00 Fat Emulsion Intravenous (Liposyn Ii 20%) 250 ml @ 10.4 mls/hr Q24H IV Last administered on 09/25/16 14:15; Admin Dose 10.4 MLS/HR; Start 09/24/16 at 14:00 IV Flush (NS 10 ml) 10 ml PRN PRN IV IV PROTOCOL; Start 09/24/16 at 14:00 Methylprednisolone Sodium Succinate (Solu-Medrol) 40 mg QHS IV Last administered on 09/25/16 21:25; Admin Dose 40 MG; Start 09/25/16 at 21:00 Amiodarone HCl 200 mg 200 mg DAILY NGT Last administered on 09/26/16 09:26; Admin Dose 200 MG; Start 09/25/16 at 09:00 Norepinephrine/ Dextrose (Levophed/D5W) 500 ml @ 1.87 mls/hr TITRATE IV ; Start 09/25/16 at 17:00 MARIO ROWE Sep 26, 2016 09:42
--- NOTE | 2016-09-26 09:48 | CONS ---
Date/Time of Note Date/Time of Note DATE: 09/26/16 TIME: 09:46 Assessment/Plan Assessment/Plan Additional Assessment/Plan Ventilator settings; AC of 16, tidal volume 500, PEEP of 5, 30% FiO2. Assessment recommendations; 1. Patient with chronic respiratory failure admitted for sepsis and pneumonia with significant clinical improvement. Off antibiotics now. 2. History of severe anoxic enthesopathy. 3. Renal insufficiency. 4. Ileus with interval improvement. Patient started on TPN. Continue current supportive care. Give the patient trial of tube feeding as tolerated. Overall prognosis remains very poor. Consultation Date/Type/Reason Admit Date/Time Aug 31, 2016 at 14:59 Initial Consult Date 09/01/16 Type of Consultation: Pulmonary/critical care Referring Provider: MARIO ROWE 24 HR Interval Summary Free Text/Dictation Patient condition remains unchanged. Remains profoundly unresponsive due to anoxic enthesopathy. Remains ventilator dependent. Has remained hemodynamically stable. General examination; elderly male, on ventilator via tracheostomy currently in no distress. Remains unresponsive. Exam/Review of Systems Vital Signs Vitals Vital Signs Date Time Temp Pulse Resp B/P Pulse Ox O2 Delivery O2 Flow Rate FiO2 09/26/16 08:52 74 09/26/16 08:00 97.6 18 148/97 98 Mechanical Ventilator Trach Collar 09/26/16 05:32 30 Intake and Output 09/25/16 09/25/16 09/26/16 15:00 23:00 07:00 Intake Total 672.0 ml 70.4 ml 1282.8 ml Output Total 350 ml 500 ml 850 ml Balance 322.0 ml -429.6 ml 432.8 ml Exam H EENT examination; supple neck, no JVD. No lymphadenopathy. Midline trachea. Tracheostomy in place. With clean insertion site. Patient is edentulous. Chest examination; diminished breath sounds throughout. No added sounds. S1- S2 audible, no murmurs. Regular rhythm. Abdomen examination; soft, G-tube in place. Abdomen is soft, bowel sounds audible. Colostomy in place. Filled with fecal material. Extremity examination; no peripheral edema. PRODUCT RESPONSIBILITY LIAISON examination; patient remains profoundly unresponsive. Results Result Diagram: 09/26/16 0455 09/26/16 0455 Results 24 hrs Laboratory Tests Test 09/25/16 11:16 09/25/16 17:26 09/25/16 20:32 09/26/16 00:15 Bedside Glucose 133 138 147 207 Test 09/26/16 04:55 09/26/16 06:30 09/26/16 09:20 Alanine Aminotransferase (ALT/SGPT) 13 Albumin 2.4 L Albumin/Globulin Ratio 0.80 Alkaline Phosphatase 44 Anion Gap 16 Aspartate Amino Transf (AST/SGOT) 12 L Basophils # 0.0 Basophils % 0.0 Blood Urea Nitrogen 56 H Calcium Level 7.9 L Carbon Dioxide Level 19 L Chloride Level 107 Creatinine 2.53 H Direct Bilirubin 0.00 Eosinophils # 0.0 Eosinophils % 0.0 Globulin 3.00 Glucose Level 158 Hematocrit 32.4 L Hemoglobin 11.1 L Indirect Bilirubin 0.0 Lymphocytes # 0.5 L Lymphocytes % 11.3 L Mean Corpuscular Hemoglobin 27.2 L Mean Corpuscular Hemoglobin Concent 34.3 Mean Corpuscular Volume 79.4 L Mean Platelet Volume Monocytes # 0.2 L Monocytes % 4.5 Neutrophils # 3.5 Neutrophils % 83.0 H Nucleated Red Blood Cells # 0.1 H Nucleated Red Blood Cells % 2.4 H Platelet Count 209 Potassium Level 3.8 Red Blood Count 4.08 L Red Cell Distribution Width 18.7 H Sodium Level 138 Total Bilirubin 0.0 L Total Protein 5.4 L White Blood Count 4.2 #L Bedside Glucose 165 149 Medications Medications Current Medications Collagenase (Santyl) 1 applic DAILY TOP Last administered on 09/26/16 09:33; Admin Dose 1 APPLIC; Start 09/02/16 at 11:30 Hydralazine HCl (Apresoline) 10 mg Q4H PRN IV ELEVATED BLOOD PRESSURE Last administered on 09/25/16 10:20; Admin Dose 10 MG; Start 09/17/16 at 16:00 Metoclopramide HCl (Reglan) 5 mg Q6 IV Last administered on 09/26/16 06:12; Admin Dose 5 MG; Start 09/17/16 at 18:00 Morphine Sulfate (morphine) 2 mg Q4H PRN IV PAIN LEVEL 7-10 Last administered on 09/22/16 04:56; Admin Dose 2 MG; Start 09/18/16 at 12:00 Metoclopramide HCl (Reglan) 10 mg Q6H PRN IV .FOR GASTRIC RESIDUAL > 100 ML Last administered on 09/21/16 13:34; Admin Dose 10 MG; Start 09/20/16 at 12:30 Pantoprazole (Protonix Iv) 40 mg BID@06,18 IV Last administered on 09/26/16 06 :11; Admin Dose 40 MG; Start 09/20/16 at 18:00 Metoprolol Tartrate (Lopressor) 25 mg BID PO Last administered on 09/26/16 09: 32; Admin Dose 25 MG; Start 09/20/16 at 21:00 Docusate Sodium 100 mg 100 mg BID PRN GTB CONSTIPATION; Start 09/23/16 at 15:30 Levofloxacin/ Dextrose 100 ml @ 100 mls/hr Q48H IVPB Last administered on 09/26 00:00; Admin Dose 100 MLS/HR; Start 09/23/16 at 23:30 Dextrose/Sodium Chloride (D5-1/4ns) 1,000 ml @ 50 mls/hr Q20H IV Last administered on 09/25/16 21:27; Admin Dose 50 MLS/HR; Start 09/23/16 at 23:45 Diagnostic Test (Pha) 1 ea 1 ea Q4 XX Last administered on 09/26/16 09:29; Admin Dose 1 EA; Start 09/24/16 at 13:00 Total Parenteral Nutrition 1,000 ml @ 60 mls/hr [id number] IV Last administered on 09/26/16 06:37; Admin Dose 60 MLS/HR; Start 09/24/16 at 14:00 Fat Emulsion Intravenous (Liposyn Ii 20%) 250 ml @ 10.4 mls/hr Q24H IV Last administered on 09/25/16 14:15; Admin Dose 10.4 MLS/HR; Start 09/24/16 at 14:00 IV Flush (NS 10 ml) 10 ml PRN PRN IV IV PROTOCOL; Start 09/24/16 at 14:00 Methylprednisolone Sodium Succinate (Solu-Medrol) 40 mg QHS IV Last administered on 09/25/16 21:25; Admin Dose 40 MG; Start 09/25/16 at 21:00 Amiodarone HCl 200 mg 200 mg DAILY NGT Last administered on 09/26/16 09:26; Admin Dose 200 MG; Start 09/25/16 at 09:00 Norepinephrine/ Dextrose (Levophed/D5W) 500 ml @ 1.87 mls/hr TITRATE IV ; Start 09/25/16 at 17:00 SHAAN BUTT Sep 26, 2016 09:48
--- NOTE | 2016-09-26 11:00 | PN ---
Date/Time of Note Date/Time of Note DATE: 09/26/16 TIME: 10:58 Assessment/Plan VTE Prophylaxis VTE Prophylaxis Intervention: other Assessment/Plan Chief Complaint/Hosp Course acute on ch resp failure sirs gi bleed arf/non oliguric cont plan Problems: Exam/Review of Systems Vital Signs Vitals Vital Signs Date Time Temp Pulse Resp B/P Pulse Ox O2 Delivery O2 Flow Rate FiO2 09/26/16 08:52 74 09/26/16 08:00 97.6 18 148/97 98 Mechanical Ventilator Trach Collar 09/26/16 05:32 30 Intake and Output 09/25/16 09/25/16 09/26/16 15:00 23:00 07:00 Intake Total 672.0 ml 70.4 ml 1282.8 ml Output Total 350 ml 500 ml 850 ml Balance 322.0 ml -429.6 ml 432.8 ml Exam Eyes: nl conjunctiva Neck: supple Respiratory: clear to auscultation Cardiovascular: regular rate and rhythm Gastrointestinal: soft Musculoskeletal: nl extremities to inspection Results Result Diagram: 09/26/16 0455 09/26/16 0455 Results 24 hrs Laboratory Tests Test 09/25/16 11:16 09/25/16 17:26 09/25/16 20:32 09/26/16 00:15 Bedside Glucose 133 138 147 207 Test 09/26/16 04:55 09/26/16 06:30 09/26/16 09:20 Alanine Aminotransferase (ALT/SGPT) 13 Albumin 2.4 L Albumin/Globulin Ratio 0.80 Alkaline Phosphatase 44 Anion Gap 16 Aspartate Amino Transf (AST/SGOT) 12 L Basophils # 0.0 Basophils % 0.0 Blood Urea Nitrogen 56 H Calcium Level 7.9 L Carbon Dioxide Level 19 L Chloride Level 107 Creatinine 2.53 H Direct Bilirubin 0.00 Eosinophils # 0.0 Eosinophils % 0.0 Globulin 3.00 Glucose Level 158 Hematocrit 32.4 L Hemoglobin 11.1 L Indirect Bilirubin 0.0 Lymphocytes # 0.5 L Lymphocytes % 11.3 L Mean Corpuscular Hemoglobin 27.2 L Mean Corpuscular Hemoglobin Concent 34.3 Mean Corpuscular Volume 79.4 L Mean Platelet Volume Monocytes # 0.2 L Monocytes % 4.5 Neutrophils # 3.5 Neutrophils % 83.0 H Nucleated Red Blood Cells # 0.1 H Nucleated Red Blood Cells % 2.4 H Platelet Count 209 Potassium Level 3.8 Red Blood Count 4.08 L Red Cell Distribution Width 18.7 H Sodium Level 138 Total Bilirubin 0.0 L Total Protein 5.4 L White Blood Count 4.2 #L Bedside Glucose 165 149 Medications Medications Current Medications Collagenase (Santyl) 1 applic DAILY TOP Last administered on 09/26/16 09:33; Admin Dose 1 APPLIC; Start 09/02/16 at 11:30 Hydralazine HCl (Apresoline) 10 mg Q4H PRN IV ELEVATED BLOOD PRESSURE Last administered on 09/25/16 10:20; Admin Dose 10 MG; Start 09/17/16 at 16:00 Metoclopramide HCl (Reglan) 5 mg Q6 IV Last administered on 09/26/16 06:12; Admin Dose 5 MG; Start 09/17/16 at 18:00 Morphine Sulfate (morphine) 2 mg Q4H PRN IV PAIN LEVEL 7-10 Last administered on 09/22/16 04:56; Admin Dose 2 MG; Start 09/18/16 at 12:00 Metoclopramide HCl (Reglan) 10 mg Q6H PRN IV .FOR GASTRIC RESIDUAL > 100 ML Last administered on 09/21/16 13:34; Admin Dose 10 MG; Start 09/20/16 at 12:30 Pantoprazole (Protonix Iv) 40 mg BID@06,18 IV Last administered on 09/26/16 06 :11; Admin Dose 40 MG; Start 09/20/16 at 18:00 Metoprolol Tartrate (Lopressor) 25 mg BID PO Last administered on 09/26/16 09: 32; Admin Dose 25 MG; Start 09/20/16 at 21:00 Docusate Sodium 100 mg 100 mg BID PRN GTB CONSTIPATION; Start 09/23/16 at 15:30 Levofloxacin/ Dextrose 100 ml @ 100 mls/hr Q48H IVPB Last administered on 09/26 00:00; Admin Dose 100 MLS/HR; Start 09/23/16 at 23:30 Dextrose/Sodium Chloride (D5-1/4ns) 1,000 ml @ 50 mls/hr Q20H IV Last administered on 09/25/16 21:27; Admin Dose 50 MLS/HR; Start 09/23/16 at 23:45 Diagnostic Test (Pha) 1 ea 1 ea Q4 XX Last administered on 09/26/16 09:29; Admin Dose 1 EA; Start 09/24/16 at 13:00 Total Parenteral Nutrition 1,000 ml @ 60 mls/hr [id number] IV Last administered on 09/26/16 06:37; Admin Dose 60 MLS/HR; Start 09/24/16 at 14:00 Fat Emulsion Intravenous (Liposyn Ii 20%) 250 ml @ 10.4 mls/hr Q24H IV Last administered on 09/25/16 14:15; Admin Dose 10.4 MLS/HR; Start 09/24/16 at 14:00 IV Flush (NS 10 ml) 10 ml PRN PRN IV IV PROTOCOL; Start 09/24/16 at 14:00 Methylprednisolone Sodium Succinate (Solu-Medrol) 40 mg QHS IV Last administered on 09/25/16 21:25; Admin Dose 40 MG; Start 09/25/16 at 21:00 Amiodarone HCl 200 mg 200 mg DAILY NGT Last administered on 09/26/16 09:26; Admin Dose 200 MG; Start 09/25/16 at 09:00 Norepinephrine/ Dextrose (Levophed/D5W) 500 ml @ 1.87 mls/hr TITRATE IV ; Start 09/25/16 at 17:00 BONITA ISSA MD Sep 26, 2016 10:59
[2016-09-26] MEDS: TOBRAMYCIN/0.25NS 300 MG/5 ML INHAL NEB SCH ×2 (11:15→19:16)
--- NOTE | 2016-09-26 12:07 | CONS ---
Date/Time of Note Date/Time of Note DATE: 09/26/16 TIME: 12:06 Assessment/Plan Assessment/Plan Additional Assessment/Plan Intermittent atrial tachycardia and atrial fibrillation Frequent PACs and PVCs Preserved ejection fraction Hypotension Hematemesis Respiratory failure Encephalopathy Acute kidney injury -Remains in sinus rhythm, continue amiodarone and beta-earl as blood pressure and heart rate permits. Consultation Date/Type/Reason Admit Date/Time Aug 31, 2016 at 14:59 Initial Consult Date 09/02/16 Type of Consultation: cv Referring Provider: MARIO ROWE 24 HR Interval Summary Free Text/Dictation Patient seen and examined Exam/Review of Systems Vital Signs Vitals Vital Signs Date Time Temp Pulse Resp B/P Pulse Ox O2 Delivery O2 Flow Rate FiO2 09/26/16 11:05 85/54 09/26/16 10:52 89 09/26/16 08:00 97.6 18 98 Mechanical Ventilator Trach Collar 09/26/16 05:32 30 Intake and Output 09/25/16 09/25/16 09/26/16 15:00 23:00 07:00 Intake Total 672.0 ml 70.4 ml 1282.8 ml Output Total 350 ml 500 ml 850 ml Balance 322.0 ml -429.6 ml 432.8 ml Exam No apparent distress, no response to verbal stimuli Head: normocephalic Neck: other (Tracheostomy) Respiratory: other (Coarse breath sounds bilaterally, no wheezing) Cardiovascular: other (S1-S2 heard), regular rate and rhythm Gastrointestinal: bowel sounds, non-tender, other (No grimacing with palpation) , soft Extremities: edema (Trace) Results Result Diagram: 09/26/16 0455 09/26/16 0455 Results 24 hrs Laboratory Tests Test 09/25/16 17:26 09/25/16 20:32 09/26/16 00:15 09/26/16 04:55 Bedside Glucose 138 147 207 Alanine Aminotransferase (ALT/SGPT) 13 Albumin 2.4 L Albumin/Globulin Ratio 0.80 Alkaline Phosphatase 44 Anion Gap 16 Aspartate Amino Transf (AST/SGOT) 12 L Basophils # 0.0 Basophils % 0.0 Blood Urea Nitrogen 56 H Calcium Level 7.9 L Carbon Dioxide Level 19 L Chloride Level 107 Creatinine 2.53 H Direct Bilirubin 0.00 Eosinophils # 0.0 Eosinophils % 0.0 Globulin 3.00 Glucose Level 158 Hematocrit 32.4 L Hemoglobin 11.1 L Indirect Bilirubin 0.0 Lymphocytes # 0.5 L Lymphocytes % 11.3 L Mean Corpuscular Hemoglobin 27.2 L Mean Corpuscular Hemoglobin Concent 34.3 Mean Corpuscular Volume 79.4 L Mean Platelet Volume Monocytes # 0.2 L Monocytes % 4.5 Neutrophils # 3.5 Neutrophils % 83.0 H Nucleated Red Blood Cells # 0.1 H Nucleated Red Blood Cells % 2.4 H Platelet Count 209 Potassium Level 3.8 Red Blood Count 4.08 L Red Cell Distribution Width 18.7 H Sodium Level 138 Total Bilirubin 0.0 L Total Protein 5.4 L White Blood Count 4.2 #L Test 09/26/16 06:30 09/26/16 09:20 Bedside Glucose 165 149 Medications Medications Current Medications Collagenase (Santyl) 1 applic DAILY TOP Last administered on 09/26/16 09:33; Admin Dose 1 APPLIC; Start 09/02/16 at 11:30 Hydralazine HCl (Apresoline) 10 mg Q4H PRN IV ELEVATED BLOOD PRESSURE Last administered on 09/25/16 10:20; Admin Dose 10 MG; Start 09/17/16 at 16:00 Metoclopramide HCl (Reglan) 5 mg Q6 IV Last administered on 09/26/16 11:43; Admin Dose 5 MG; Start 09/17/16 at 18:00 Morphine Sulfate (morphine) 2 mg Q4H PRN IV PAIN LEVEL 7-10 Last administered on 09/22/16 04:56; Admin Dose 2 MG; Start 09/18/16 at 12:00 Metoclopramide HCl (Reglan) 10 mg Q6H PRN IV .FOR GASTRIC RESIDUAL > 100 ML Last administered on 09/21/16 13:34; Admin Dose 10 MG; Start 09/20/16 at 12:30 Pantoprazole (Protonix Iv) 40 mg BID@,18 IV Last administered on 09/26/16 06 :11; Admin Dose 40 MG; Start 09/20/16 at 18:00 Metoprolol Tartrate (Lopressor) 25 mg BID PO Last administered on 09/26/16 09: 32; Admin Dose 25 MG; Start 09/20/16 at 21:00 Docusate Sodium 100 mg 100 mg BID PRN GTB CONSTIPATION; Start 09/23/16 at 15:30 Levofloxacin/ Dextrose 100 ml @ 100 mls/hr Q48H IVPB Last administered on 09/26 00:00; Admin Dose 100 MLS/HR; Start 09/23/16 at 23:30 Dextrose/Sodium Chloride (D5-1/4ns) 1,000 ml @ 50 mls/hr Q20H IV Last administered on 09/25/16 21:27; Admin Dose 50 MLS/HR; Start 09/23/16 at 23:45 Diagnostic Test (Pha) 1 ea 1 ea Q4 XX Last administered on 09/26/16 09:29; Admin Dose 1 EA; Start 09/24/16 at 13:00 Total Parenteral Nutrition 1,000 ml @ 60 mls/hr [id number] IV Last administered on 09/26/16 06:37; Admin Dose 60 MLS/HR; Start 09/24/16 at 14:00 Fat Emulsion Intravenous (Liposyn Ii 20%) 250 ml @ 10.4 mls/hr Q24H IV Last administered on 09/25/16 14:15; Admin Dose 10.4 MLS/HR; Start 09/24/16 at 14:00 IV Flush (NS 10 ml) 10 ml PRN PRN IV IV PROTOCOL; Start 09/24/16 at 14:00 Methylprednisolone Sodium Succinate (Solu-Medrol) 40 mg QHS IV Last administered on 09/25/16 21:25; Admin Dose 40 MG; Start 09/25/16 at 21:00 Amiodarone HCl 200 mg 200 mg DAILY NGT Last administered on 09/26/16 09:26; Admin Dose 200 MG; Start 09/25/16 at 09:00 Norepinephrine/ Dextrose (Levophed/D5W) 500 ml @ 1.87 mls/hr TITRATE IV ; Start 09/25/16 at 17:00 Maynor Broderick DO Sep 26, 2016 12:07
[2016-09-26] MEDS: FAT EMULSION 20% 250 ML IV SCH (14:33)
--- NOTE | 2016-09-26 16:04 | CONS ---
Date/Time of Note Date/Time of Note DATE: 09/26/16 TIME: 16:02 Assessment/Plan Assessment/Plan Additional Assessment/Plan assessment/impression - Acute on chronic respiratory failure--likely due to central airway obstruction from aspirated tube feeds- resolved - SBO/ileus - High residuals with probable gastroparesis per GI - on reglan - SIRS (Tx to ICU 09/19/16) with tachycardia and leukocytosis likely d/t stress response 2/ aspiration and RAYNA vs early sepsis / asp PNA. 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 the wound culture grew carbapenemase producing kleb, enterococci and pseudo - leakage of gastric contents from GT site, now has ostomy bag - resolved - dysphagia s/p EGD and new G tube placement 09/15/2016 - infection of wound of RLE due to pseudomonas. 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 - h/o thrush - HCV infection - colostomy status - moderate to severe protein calorie malnutrition - BLE papule rash - possibly d/t heat rash vs contact dermatitis vs delayed abx sensitivity - slowly improving - s/p Vanco (09/02/16-09/12/16; 09/20/16-09/22/16) for MRSA and levofloxacin (09/05/16- 09/12/16) intermediate activity against carbapenemase producing kleb; mupirocin for MRSA decolonization (09/02/16-09/14/16) recommendations: - IV Tobra (09/06/16-) was changed to Tobra inhalation and start IV Levaquin 500 mg q48 hours (09/24/16-) - Pt has multiple MDR organisms and it is impossible to cover all. Abx selection is limited d/t worsening renal function. Overall prognosis remains poor and we recommend Hospice evaluation. - Trend WBC (normalized) and renal fxn (still worsening) - Discontinue topical antimicrobials (Clotrimazole and Bactroban) as BLE rash has resolved - Sage Cx for temp >100.4 Consultation Date/Type/Reason Admit Date/Time Aug 31, 2016 at 14:59 Initial Consult Date 09/02/16 Type of Consultation: Infectious Diseases Referring Provider: MARIO ROWE 24 HR Interval Summary Free Text/Dictation No new imaging, no new positive cultures, no acute events. Remains on TPN via the new PICC line, vent settings stable. Exam/Review of Systems Vital Signs Vitals Vital Signs Date Time Temp Pulse Resp B/P Pulse Ox O2 Delivery O2 Flow Rate FiO2 09/26/16 13:30 60 20 98 30 09/26/16 11:05 85/54 09/26/16 08:00 97.6 Mechanical Ventilator Trach Collar Intake and Output 09/25/16 09/25/16 09/26/16 15:00 23:00 07:00 Intake Total 672.0 ml 70.4 ml 1282.8 ml Output Total 350 ml 500 ml 850 ml Balance 322.0 ml -429.6 ml 432.8 ml Exam Constitutional: frail, other (non-communicative; chronically debilitated, cachectic ) Head: atraumatic, normocephalic, other (temporal wasting noted) Neck: other (trach midline) Respiratory: Diminished breath sounds. No wheezing. Cardiovascular: nl pulses, regular rate and rhythm Gastrointestinal: bowel sounds hypo, other (colostomy intact - stoma pink/no stool; NGT to sxn; G tube to gravity drainage with trivial output), soft, less distended Genitourinary - Male: other (vincent cath intact with clear yellow urine) Musculoskeletal: muscle weakness Extremities: normal pulses, other (bilateral foot drop noted), trace edema R>L , contracted No clubbing, No cyanosis Neurological: unresponsive Skin: other (RLE posterior lateral dressing c/d/i); no rash noted Results Result Diagram: 09/26/16 0455 09/26/16 0455 Results 24 hrs Laboratory Tests Test 09/25/16 17:26 09/25/16 20:32 09/26/16 00:15 09/26/16 04:55 Bedside Glucose 138 147 207 Alanine Aminotransferase (ALT/SGPT) 13 Albumin 2.4 L Albumin/Globulin Ratio 0.80 Alkaline Phosphatase 44 Anion Gap 16 Aspartate Amino Transf (AST/SGOT) 12 L Basophils # 0.0 Basophils % 0.0 Blood Urea Nitrogen 56 H Calcium Level 7.9 L Carbon Dioxide Level 19 L Chloride Level 107 Creatinine 2.53 H Direct Bilirubin 0.00 Eosinophils # 0.0 Eosinophils % 0.0 Globulin 3.00 Glucose Level 158 Hematocrit 32.4 L Hemoglobin 11.1 L Indirect Bilirubin 0.0 Lymphocytes # 0.5 L Lymphocytes % 11.3 L Mean Corpuscular Hemoglobin 27.2 L Mean Corpuscular Hemoglobin Concent 34.3 Mean Corpuscular Volume 79.4 L Mean Platelet Volume Monocytes # 0.2 L Monocytes % 4.5 Neutrophils # 3.5 Neutrophils % 83.0 H Nucleated Red Blood Cells # 0.1 H Nucleated Red Blood Cells % 2.4 H Platelet Count 209 Potassium Level 3.8 Red Blood Count 4.08 L Red Cell Distribution Width 18.7 H Sodium Level 138 Total Bilirubin 0.0 L Total Protein 5.4 L White Blood Count 4.2 #L Test 09/26/16 06:30 09/26/16 09:20 09/26/16 12:18 Bedside Glucose 165 149 148 Medications Medications Current Medications Collagenase (Santyl) 1 applic DAILY TOP Last administered on 09/26/16 09:33; Admin Dose 1 APPLIC; Start 09/02/16 at 11:30 Hydralazine HCl (Apresoline) 10 mg Q4H PRN IV ELEVATED BLOOD PRESSURE Last administered on 09/25/16 10:20; Admin Dose 10 MG; Start 09/17/16 at 16:00 Metoclopramide HCl (Reglan) 5 mg Q6 IV Last administered on 09/26/16 11:43; Admin Dose 5 MG; Start 09/17/16 at 18:00 Morphine Sulfate (morphine) 2 mg Q4H PRN IV PAIN LEVEL 7-10 Last administered on 09/22/16 04:56; Admin Dose 2 MG; Start 09/18/16 at 12:00 Metoclopramide HCl (Reglan) 10 mg Q6H PRN IV .FOR GASTRIC RESIDUAL > 100 ML Last administered on 09/21/16 13:34; Admin Dose 10 MG; Start 09/20/16 at 12:30 Pantoprazole (Protonix Iv) 40 mg BID@06,18 IV Last administered on 09/26/16 06 :11; Admin Dose 40 MG; Start 09/20/16 at 18:00 Metoprolol Tartrate (Lopressor) 25 mg BID PO Last administered on 09/26/16 09: 32; Admin Dose 25 MG; Start 09/20/16 at 21:00 Docusate Sodium 100 mg 100 mg BID PRN GTB CONSTIPATION; Start 09/23/16 at 15:30 Levofloxacin/ Dextrose 100 ml @ 100 mls/hr Q48H IVPB Last administered on 09/26 00:00; Admin Dose 100 MLS/HR; Start 09/23/16 at 23:30 Dextrose/Sodium Chloride (D5-1/4ns) 1,000 ml @ 50 mls/hr Q20H IV Last administered on 09/25/16 21:27; Admin Dose 50 MLS/HR; Start 09/23/16 at 23:45 Diagnostic Test (Pha) 1 ea 1 ea Q4 XX Last administered on 09/26/16 13:00; Admin Dose 1 EA; Start 09/24/16 at 13:00 Total Parenteral Nutrition 1,000 ml @ 60 mls/hr [id number] IV Last administered on 09/26/16 06:37; Admin Dose 60 MLS/HR; Start 09/24/16 at 14:00 Fat Emulsion Intravenous (Liposyn Ii 20%) 250 ml @ 10.4 mls/hr Q24H IV Last administered on 09/26/16 14:33; Admin Dose 10.4 MLS/HR; Start 09/24/16 at 14:00 IV Flush (NS 10 ml) 10 ml PRN PRN IV IV PROTOCOL; Start 09/24/16 at 14:00 Methylprednisolone Sodium Succinate (Solu-Medrol) 40 mg QHS IV Last administered on 09/25/16 21:25; Admin Dose 40 MG; Start 09/25/16 at 21:00 Amiodarone HCl 200 mg 200 mg DAILY NGT Last administered on 09/26/16 09:26; Admin Dose 200 MG; Start 09/25/16 at 09:00 Norepinephrine/ Dextrose (Levophed/D5W) 500 ml @ 1.87 mls/hr TITRATE IV ; Start 09/25/16 at 17:00 SAVANA DAS Sep 26, 2016 16:04
[2016-09-26] MEDS: DEXTROSE 5%-0.225% NACL 1,000 ML IV SCH (18:03)
[2016-09-26] MEDS: METHYLPREDNISOLONE 40 MG INJ IV SCH (21:15)
--- NOTE | 2016-09-26 23:55 | PN ---
Date/Time of Note Date/Time of Note DATE: 09/26/16 TIME: 23:54 Assessment/Plan Lines/Catheters IV Catheter Type (from Nrs): Peripheral IV Assessment/Plan Chief Complaint/Hosp Course 1. Distended stomach and small bowel with possible sbo vs ileus. Maybe 2nd adhesive process -sbft -npo -gastric decompression 2. Gastric ulcer, improving -ppi 3. Anemia -monitor 4. Functional quadriplegia -off loading -nutritional optimization 5. Decubitus ulcerations -off loading -nutritional optimization -vit c -local care -debridement prn 6. Chronic encephalopathy -as above 7. Dysphagia s/p feeding tube on tube feeds 8. VDRF -pulmonary toilette and ventilator management 9. Renal insufficiency -judicious fluid management -avoid nephrotoxic agents Thank you, Problems: Subjective 24 Hr Interval Summary No f/c. No cough. No sz. No vomiting. No bloating. No rash. Min hard stool in bag. No bleeding. No joint swelling. Exam/Review of Systems Vital Signs Vitals Vital Signs Date Time Temp Pulse Resp B/P Pulse Ox O2 Delivery O2 Flow Rate FiO2 09/27/16 01:12 71 18 100 30 09/26/16 11:05 85/54 09/26/16 08:00 97.6 Mechanical Ventilator Trach Collar Intake and Output 09/26/16 09/26/16 09/27/16 15:00 23:00 07:00 Intake Total 60 ml Output Total 1000 ml Balance -940 ml Exam Constitutional: non-verbal, No oriented Psych: anxiety, No nl mood/affect Head: normocephalic Eyes: nl conjunctiva, No icteric ENMT: nl external ears & nose Neck: non-tender, No jvd Respiratory: normal air movement, No congested cough, No labored breathing Cardiovascular: regular rate and rhythm, No edema Gastrointestinal: non-tender, other (colostomy with min stool), soft, No distended, No rebound or guarding Musculoskeletal: No joint tenderness, No nl extremities to inspection, No nl gait and stance Extremities: No calf tenderness, No cyanosis Neurological: No nl mental status, No nl speech, No nl strength Skin: rash or lesions (decubitus ulcers), No diaphoresis, No nl turgor Lymph: nl lymph nodes Results Result Diagram: 09/26/16 04509/26/16 045 JOSE ANGEL MATTHEWS MD Sep 26, 2016 23:54
[2016-09-27] VITALS (35 sets, daily range): BP systolic 123–178; BP diastolic 60–112; PULSE 55–82; RESP 14–28
[2016-09-27] MEDS: METOCLOPRAMIDE 10 MG INJ IV SCH ×4 (00:01→17:52)
[2016-09-27] MEDS: ACCUCHECK XX SCH ×5 (01:00→21:00)
--- NOTE | 2016-09-27 05:49 | CONS ---
DATE OF ADMISSION: 08/31/2016 DATE OF CONSULTATION: 09/24/2016 CONSULT TYPE: Surgical. REFERRING PRACTITIONER: Irish Danielson NP CHIEF COMPLAINT: Gastric and small bowel distention concerning for distal bowel obstruction. HISTORY OF PRESENT ILLNESS: Robert Meeks is a 71-year-old male with multiple significant comorbidi ties and noncommunicative who is a resident of [facility] who was brought to [facility] with vomiting blood, tachycardia; was admitted to ICU for further care an d treatment. He has undergone endoscopy with identification of a gastric ulcer that has improved. On a recent CT scan, he was found to have possible SBO with distention of the stomach and small bony l. There is no reported fever or chills. No cough. No seizure. No further vomiting. No rash. N o joint swelling. Surgical consult is obtained for further evaluation and treatment. PAST MEDICAL HISTORY: 1. Chronic encephalopathy. 2. Subdural hemorrhage. 3. Ventilator-dependent respiratory failure. 4. Dysphagia. 5. Urinary retention. 6. UTI. 7. Healthcare-associated pneumonia. 8. COPD. 9. Functional quadriplegia. 10. Contracted state. 11. Hematemesis. 12. Gastric ulcer. 13. Anemia. 14. Leukocytosis. 15. Renal insufficiency. 16. Hypoalbuminemia. 17. Left clavicular fracture. 18. Fractured left-sided ribs. 19. Left scapular fracture. 20. fracture. 21. Decubitus ulceration. PAST SURGICAL HISTORY: 1. PEG. 2. Trach. 3. Colostomy. 4. Craniotomy. 5. Splenectomy. 6. Enterolysis. 7. Partial gastrectomy. 8. Wound care. MEDICATIONS: As per SEP. ALLERGIES: NONE. SOCIAL HISTORY: No current alcohol or tobacco. FAMILY HISTORY: Noncontributory. REVIEW OF SYSTEMS: Twelve-point review of systems negative unless suggested in HPI. PHYSICAL EXAMINATION: VITAL SIGNS: Temperature is 98.7, pulse 64, blood pressure 140/97, satting 98% on FIO2 presen tly. GENERAL: Noncommunicative, contracted. HEENT: Pupils are sluggish. No scleral icterus. Mucous membranes are moist. NECK: Trach in place. No crepitus. Baseline rigidity. PULMONARY: No wheezing. Normal respiratory effort. CARDIAC: S1, S2 present. ABDOMEN: Colostomy. Feeding tube. Soft. Nondistended. EXTREMITIES: Contracted without edema. VASCULAR: Capillary refill is 3 seconds. NEUROLOGIC: He does not follow commands. PSYCHIATRIC: Noncommunicative with flat affect. LABORATORY AND RADIOGRAPHIC: As per chart and HPI. ASSESSMENT AND PLAN: Robert Meeks is a 71-year-old male with multiple significant comorbidities. 1. Distended stomach and small bowel with possible small bowel obstruction versus ileus. May be se condary to adhesive process, will order a small bowel follow through. Continue n.p.o. and gastric d ecompression. 2. Gastric ulcer, improving. Continue PPI. 3. Anemia. Continue to monitor. 4. Functional quadriplegia. Continue offloading, nutritional optimization. 5. Decubitus ulcerations. Continue offloading, nutritional optimization, vitamin C, local care and debridement as needed. 6. Chronic encephalopathy. Continue as above. 7. Dysphagia status post feeding tube on tube feeds. 8. Ventilator-dependent respiratory failure. Continue pulmonary toilet and ventilator management. 9. Renal insufficiency. Continue judicious fluid management and avoid nephrotoxic agents. Thank you very much for consulting me in this patient's care. Dictated By: JOSE ANGEL JAQUEZ/MACK Conf#: [id number] DID#: [id number]
[2016-09-27 06:14] LABS: ADD SCAN DIFF NO
[2016-09-27 06:33] LABS: ALBUMIN 2.3 g/dl (3.3-4.9)
[2016-09-27 06:34] LABS: POTASSIUM 3.4 mmol/L (3.5-5.1)
[2016-09-27 06:36] LABS: ALBUMIN/GLOBULIN RATIO 0.69; CREATININE 2.07 mg/dl (0.61-1.24); TOTAL PROTEIN 5.6 g/dl (6.1-8.1)
[2016-09-27 06:37] LABS: CALCIUM 7.8 mg/dl (8.4-10.2)
[2016-09-27 06:42] LABS: PHOSPHORUS 1.9 mg/dl (2.5-4.9)
[2016-09-27 06:43] LABS: MAGNESIUM 1.5 mg/dl (1.7-2.5)
[2016-09-27] MEDS: PANTOPRAZOLE 40 MG INJ IV SCH ×2 (06:46→17:52)
[2016-09-27 06:58] LABS: ABNORMAL IP MESSAGE 1; HEMATOCRIT 31.1 % (42.0-52.0); HEMOGLOBIN 10.6 g/dl (14.0-18.0); LYMPHOCYTES # 0.6 10^3/ul (0.8-2.9); LYMPHOCYTES % 12.2 % (15.0-51.0); MEAN CORPUSCULAR HEMOGLOBIN 26.8 pg (29.0-33.0); MEAN CORPUSCULAR HGB CONC 34.1 g/dl (32.0-37.0); MEAN CORPUSCULAR VOLUME 78.5 fl (82.0-101.0); MEAN PLATELET VOLUME 12.7 fl (7.4-10.4); MONOCYTE # 0.3 10^3/ul (0.3-0.9); MONOCYTES % 5.2 % (0.0-11.0); NEUTROPHILS % 82.2 % (39.0-77.0); NUCLEATED RED BLOOD CELLS # 0.1 10^3/ul (0.0-0.0); NUCLEATED RED BLOOD CELLS% 1.2 /100WBC (0.0-0.0); PLATELET COUNT 207 10^3/UL (140-415); RED BLOOD COUNT 3.96 10^6/ul (4.70-6.10); RED CELL DISTRIBUTION WIDTH 18.5 % (11.5-14.5); WHITE BLOOD COUNT 4.8 10^3/ul (4.8-10.8)
--- NOTE | 2016-09-27 08:09 | PN ---
Date/Time of Note Date/Time of Note DATE: 09/27/16 TIME: 08:08 Assessment/Plan Lines/Catheters IV Catheter Type (from [facility]): PICC Line Chaudhari in Place (from [facility]): Yes Assessment/Plan Chief Complaint/Hosp Course 1. Distended stomach and small bowel with possible sbo vs ileus. Maybe 2nd adhesive process -sbft pending -npo -gastric decompression 2. Gastric ulcer, improving -ppi 3. Anemia -monitor 4. Functional quadriplegia -off loading -nutritional optimization 5. Decubitus ulcerations -off loading -nutritional optimization -vit c -local care -debridement prn 6. Chronic encephalopathy -as above 7. Dysphagia s/p feeding tube on tube feeds 8. VDRF -pulmonary toilette and ventilator management 9. Renal insufficiency -judicious fluid management -avoid nephrotoxic agents Thank you, Problems: Subjective 24 Hr Interval Summary SBFT pending. No f/c. No cough. No sz. No vomiting. No bloating. No rash. Min hard stool in bag. No bleeding. No joint swelling. Exam/Review of Systems Vital Signs Vitals Vital Signs Date Time Temp Pulse Resp B/P Pulse Ox O2 Delivery O2 Flow Rate FiO2 09/27/16 07:20 73 21 100 30 09/27/16 06:00 144/96 09/27/16 04:00 97.7 09/27/16 01:00 Mechanical Ventilator Intake and Output 09/26/16 09/26/16 09/27/16 15:00 23:00 07:00 Intake Total 60 ml 1204.0 ml Output Total 1000 ml Balance -940 ml 1204.0 ml Exam Free Text/Dictation Constitutional: non-verbal, No oriented Psych: anxiety, No nl mood/affect Head: normocephalic Eyes: nl conjunctiva, No icteric ENMT: nl external ears & nose Neck: non-tender, No jvd Respiratory: normal air movement, No congested cough, No labored breathing Cardiovascular: regular rate and rhythm, No edema Gastrointestinal: non-tender, other (colostomy with min stool), soft, No distended, No rebound or guarding Musculoskeletal: No joint tenderness, No nl extremities to inspection, No nl gait and stance Extremities: No calf tenderness, No cyanosis Neurological: No nl mental status, No nl speech, No nl strength Skin: rash or lesions (decubitus ulcers), No diaphoresis, No nl turgor Lymph: nl lymph nodes Results Result Diagram: 09/27/1605 09/27/16 0605 JOSE ANGEL MATTHEWS MD Sep 27, 2016 08:09
[2016-09-27] MEDS: AMIODARONE 200 MG TAB NGT SCH (08:42)
[2016-09-27] MEDS: COLLAGENASE 30 GM TUBE TOP SCH (08:43)
[2016-09-27] MEDS: METOPROLOL 25 MG TAB PO SCH ×2 (08:43→21:00)
--- NOTE | 2016-09-27 09:05 | CONS ---
Date/Time of Note Date/Time of Note DATE: 09/27/16 TIME: 09:02 Assessment/Plan Assessment/Plan Chief Complaint/Hosp Course assessment/impression - h/o sepsis - acute on chronic respiratory failure - SBO/ileus. 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 the wound culture grew carbapenemase producing kleb, enterococci and pseudo - h/o dysphagia s/p EGD and new G tube placement 09/15/2016 - h/o infection of wound of RLE due to pseudomonas. 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 Pt has multiple MDR organisms and it is impossible to cover all. antibiotic selection is limited d/t worsening renal function. the critical care time I took to care for this Pt today was from 0900 to 0930 Problems: Consultation Date/Type/Reason Admit Date/Time Aug 31, 2016 at 14:59 Initial Consult Date 09/01/16 Type of Consultation: Infectious Diseases Referring Provider: MARIO ROWE 24 HR Interval Summary Subjective hx not possible: pt non-verbal, pt critical, pt critical status Exam/Review of Systems Vital Signs Vitals Vital Signs Date Time Temp Pulse Resp B/P Pulse Ox O2 Delivery O2 Flow Rate FiO2 09/27/16 07:20 73 21 100 30 09/27/16 06:00 144/96 09/27/16 04:00 97.7 09/27/16 01:00 Mechanical Ventilator Intake and Output 09/26/16 09/26/16 09/27/16 15:00 23:00 07:00 Intake Total 60 ml 1204.0 ml Output Total 1000 ml Balance -940 ml 1204.0 ml Exam Constitutional: frail, non-verbal Psych: confusion Head: other (temporal atrophy) Eyes: nl conjunctiva, nl lids ENMT: nl external ears & nose Neck: other (trach) Respiratory: diminished breath sounds Cardiovascular: nl pulses, regular rate and rhythm Gastrointestinal: non-tender, other (G tube and ostomy), soft, No distended Genitourinary - Male: other (FC) Extremities: edema (1+) Neurological: unresponsive Skin: laceration (lateral RLE is dressed c/d/i) Results Result Diagram: 09/27/16 0609/27/16 0605 Results 24 hrs Laboratory Tests Test 09/26/16 09:20 09/26/16 12:18 09/26/16 16:52 09/26/16 20:04 Bedside Glucose 149 148 140 134 Test 09/27/16 02:16 09/27/16 06:05 09/27/16 08:45 Bedside Glucose 188 163 Alanine Aminotransferase (ALT/SGPT) 14 Albumin 2.3 L Albumin/Globulin Ratio 0.69 Alkaline Phosphatase 47 Anion Gap 14 Aspartate Amino Transf (AST/SGOT) 12 L Basophils # 0.0 Basophils % 0.0 Blood Urea Nitrogen 52 H Calcium Level 7.8 L Carbon Dioxide Level 18 L Chloride Level 103 Creatinine 2.07 H Direct Bilirubin 0.00 Eosinophils # 0.0 Eosinophils % 0.0 Globulin 3.30 H Glucose Level 176 Hematocrit 31.1 L Hemoglobin 10.6 L Indirect Bilirubin 0.0 Lymphocytes # 0.6 L Lymphocytes % 12.2 L Magnesium Level 1.5 L Mean Corpuscular Hemoglobin 26.8 L Mean Corpuscular Hemoglobin Concent 34.1 Mean Corpuscular Volume 78.5 L Mean Platelet Volume 12.7 H Monocytes # 0.3 Monocytes % 5.2 Neutrophils # 4.0 Neutrophils % 82.2 H Nucleated Red Blood Cells # 0.1 H Nucleated Red Blood Cells % 1.2 H Phosphorus Level 1.9 L Platelet Count 207 Potassium Level 3.4 L Red Blood Count 3.96 L Red Cell Distribution Width 18.5 H Sodium Level 132 L Total Bilirubin 0.0 L Total Protein 5.6 L White Blood Count 4.8 Medications Medications Current Medications Collagenase (Santyl) 1 applic DAILY TOP Last administered on 09/27/16 08:43; Admin Dose 1 APPLIC; Start 09/02/16 at 11:30 Hydralazine HCl (Apresoline) 10 mg Q4H PRN IV ELEVATED BLOOD PRESSURE Last administered on 09/25/16 10:20; Admin Dose 10 MG; Start 09/17/16 at 16:00 Metoclopramide HCl (Reglan) 5 mg Q6 IV Last administered on 09/27/16 06:46; Admin Dose 5 MG; Start 09/17/16 at 18:00 Morphine Sulfate (morphine) 2 mg Q4H PRN IV PAIN LEVEL 7-10 Last administered on 09/22/16 04:56; Admin Dose 2 MG; Start 09/18/16 at 12:00 Metoclopramide HCl (Reglan) 10 mg Q6H PRN IV .FOR GASTRIC RESIDUAL > 100 ML Last administered on 09/21/16 13:34; Admin Dose 10 MG; Start 09/20/16 at 12:30 Pantoprazole (Protonix Iv) 40 mg BID@06,18 IV Last administered on 09/27/16 06 :46; Admin Dose 40 MG; Start 09/20/16 at 18:00 Metoprolol Tartrate (Lopressor) 25 mg BID PO Last administered on 09/27/16 08: 43; Admin Dose 25 MG; Start 09/20/16 at 21:00 Docusate Sodium 100 mg 100 mg BID PRN GTB CONSTIPATION; Start 09/23/16 at 15:30 Levofloxacin/ Dextrose 100 ml @ 100 mls/hr Q48H IVPB Last administered on 09/26 00:00; Admin Dose 100 MLS/HR; Start 09/23/16 at 23:30 Dextrose/Sodium Chloride (D5-1/4ns) 1,000 ml @ 50 mls/hr Q20H IV Last administered on 09/26/16 18:03; Admin Dose 50 MLS/HR; Start 09/23/16 at 23:45 Diagnostic Test (Pha) 1 ea 1 ea Q4 XX Last administered on 09/27/16 08:45; Admin Dose 1 EA; Start 09/24/16 at 13:00 Total Parenteral Nutrition 1,000 ml @ 60 mls/hr [id number] IV Last administered on 09/26/16 22:16; Admin Dose 60 MLS/HR; Start 09/24/16 at 14:00 Fat Emulsion Intravenous (Liposyn Ii 20%) 250 ml @ 10.4 mls/hr Q24H IV Last administered on 09/26/16 14:33; Admin Dose 10.4 MLS/HR; Start 09/24/16 at 14:00 IV Flush (NS 10 ml) 10 ml PRN PRN IV IV PROTOCOL; Start 09/24/16 at 14:00 Methylprednisolone Sodium Succinate (Solu-Medrol) 40 mg QHS IV Last administered on 09/26/16 21:15; Admin Dose 40 MG; Start 09/25/16 at 21:00 Amiodarone HCl 200 mg 200 mg DAILY NGT Last administered on 09/27/16 08:42; Admin Dose 200 MG; Start 09/25/16 at 09:00 Norepinephrine/ Dextrose (Levophed/D5W) 500 ml @ 1.87 mls/hr TITRATE IV ; Start 09/25/16 at 17:00 LIZZY HECK M.D. Sep 27, 2016 09:05
[2016-09-27] MEDS ORDERED: MAGNESIUM SULFATE 1 GM/D5W 100 ML IVPB ONE ×3 (09:30→22:30)
[2016-09-27] MEDS: TOBRAMYCIN/0.25NS 300 MG/5 ML INHAL NEB SCH ×2 (09:36→19:57)
--- NOTE | 2016-09-27 10:54 | CONS ---
Date/Time of Note Date/Time of Note DATE: 09/27/16 TIME: 10:52 Assessment/Plan Assessment/Plan Additional Assessment/Plan Ventilator settings are AC of 16, tidal volume 500, PEEP of 5, 30% FiO2. Assessment and recommendations; 1. Patient admitted for pneumonia and sepsis. Off antibiotics now. 2. Ileus with interval improvement as well. Patient however continued on TPN per general surgeon recommendations. 3. Renal insufficiency. 4. Chronic respiratory failure due to severe anoxic encephalopathy. Continue current treatment. Patient awaiting transfer to rehab center. Overall prognosis remains poor. Consultation Date/Type/Reason Admit Date/Time Aug 31, 2016 at 14:59 Initial Consult Date 09/01/16 Type of Consultation: Pulmonary/critical care Referring Provider: MARIO ROWE 24 HR Interval Summary Free Text/Dictation Patient condition remains stable. Still requiring full ventilator support. Patient however has remained hemodynamically stable. Next General examination; elderly male, on ventilator via tracheostomy remains unresponsive. Currently in no distress. Exam/Review of Systems Vital Signs Vitals Vital Signs Date Time Temp Pulse Resp B/P Pulse Ox O2 Delivery O2 Flow Rate FiO2 09/27/16 09:37 68 28 99 30 09/27/16 09:00 139/92 Mechanical Ventilator 09/27/16 07:00 97.8 Intake and Output 09/26/16 09/26/16 09/27/16 15:00 23:00 07:00 Intake Total 60 ml 1204.0 ml Output Total 1000 ml Balance -940 ml 1204.0 ml Exam HEENT examination; supple neck, no JVD. No lymphadenopathy. No thyromegaly. Patient is edentulous. Tracheostomy in place with clean insertion site. Chest examination; diminished but clear breath sounds bilaterally. S1-S2 audible, no murmurs. Regular rhythm. Abdomen examination; soft, colostomy in place. Bowel sounds audible. No organomegaly. Abdomen is nondistended. Extremity examination; no peripheral edema. AIRSET CASTER examination; patient remains unresponsive. Results Result Diagram: 09/27/16 0605 09/27/16 0605 Results 24 hrs Laboratory Tests Test 09/26/16 12:18 09/26/16 16:52 09/26/16 20:04 09/27/16 02:16 Bedside Glucose 148 140 134 188 Test 09/27/16 06:05 09/27/16 08:45 Alanine Aminotransferase (ALT/SGPT) 14 Albumin 2.3 L Albumin/Globulin Ratio 0.69 Alkaline Phosphatase 47 Anion Gap 14 Aspartate Amino Transf (AST/SGOT) 12 L Basophils # 0.0 Basophils % 0.0 Blood Urea Nitrogen 52 H Calcium Level 7.8 L Carbon Dioxide Level 18 L Chloride Level 103 Creatinine 2.07 H Direct Bilirubin 0.00 Eosinophils # 0.0 Eosinophils % 0.0 Globulin 3.30 H Glucose Level 176 Hematocrit 31.1 L Hemoglobin 10.6 L Indirect Bilirubin 0.0 Lymphocytes # 0.6 L Lymphocytes % 12.2 L Magnesium Level 1.5 L Mean Corpuscular Hemoglobin 26.8 L Mean Corpuscular Hemoglobin Concent 34.1 Mean Corpuscular Volume 78.5 L Mean Platelet Volume 12.7 H Monocytes # 0.3 Monocytes % 5.2 Neutrophils # 4.0 Neutrophils % 82.2 H Nucleated Red Blood Cells # 0.1 H Nucleated Red Blood Cells % 1.2 H Phosphorus Level 1.9 L Platelet Count 207 Potassium Level 3.4 L Red Blood Count 3.96 L Red Cell Distribution Width 18.5 H Sodium Level 132 L Total Bilirubin 0.0 L Total Protein 5.6 L White Blood Count 4.8 Bedside Glucose 163 Medications Medications Current Medications Collagenase (Santyl) 1 applic DAILY TOP Last administered on 09/27/16 08:43; Admin Dose 1 APPLIC; Start 09/02/16 at 11:30 Hydralazine HCl (Apresoline) 10 mg Q4H PRN IV ELEVATED BLOOD PRESSURE Last administered on 09/25/16 10:20; Admin Dose 10 MG; Start 09/17/16 at 16:00 Metoclopramide HCl (Reglan) 5 mg Q6 IV Last administered on 09/27/16 06:46; Admin Dose 5 MG; Start 09/17/16 at 18:00 Morphine Sulfate (morphine) 2 mg Q4H PRN IV PAIN LEVEL 7-10 Last administered on 09/22/16 04:56; Admin Dose 2 MG; Start 09/18/16 at 12:00 Metoclopramide HCl (Reglan) 10 mg Q6H PRN IV .FOR GASTRIC RESIDUAL > 100 ML Last administered on 09/21/16 13:34; Admin Dose 10 MG; Start 09/20/16 at 12:30 Pantoprazole (Protonix Iv) 40 mg BID@06,18 IV Last administered on 09/27/16 06 :46; Admin Dose 40 MG; Start 09/20/16 at 18:00 Metoprolol Tartrate (Lopressor) 25 mg BID PO Last administered on 09/27/16 08: 43; Admin Dose 25 MG; Start 09/20/16 at 21:00 Docusate Sodium 100 mg 100 mg BID PRN GTB CONSTIPATION; Start 09/23/16 at 15:30 Levofloxacin/ Dextrose 100 ml @ 100 mls/hr Q48H IVPB Last administered on 09/26 00:00; Admin Dose 100 MLS/HR; Start 09/23/16 at 23:30 Dextrose/Sodium Chloride (D5-1/4ns) 1,000 ml @ 50 mls/hr Q20H IV Last administered on 09/26/16 18:03; Admin Dose 50 MLS/HR; Start 09/23/16 at 23:45 Diagnostic Test (Pha) 1 ea 1 ea Q4 XX Last administered on 09/27/16 08:45; Admin Dose 1 EA; Start 09/24/16 at 13:00 Total Parenteral Nutrition 1,000 ml @ 60 mls/hr [id number] IV Last administered on 09/26/16 22:16; Admin Dose 60 MLS/HR; Start 09/24/16 at 14:00 Fat Emulsion Intravenous (Liposyn Ii 20%) 250 ml @ 10.4 mls/hr Q24H IV Last administered on 09/26/16 14:33; Admin Dose 10.4 MLS/HR; Start 09/24/16 at 14:00 IV Flush (NS 10 ml) 10 ml PRN PRN IV IV PROTOCOL; Start 09/24/16 at 14:00 Methylprednisolone Sodium Succinate (Solu-Medrol) 40 mg QHS IV Last administered on 09/26/16 21:15; Admin Dose 40 MG; Start 09/25/16 at 21:00 Amiodarone HCl 200 mg 200 mg DAILY NGT Last administered on 09/27/16 08:42; Admin Dose 200 MG; Start 09/25/16 at 09:00 Norepinephrine/ Dextrose (Levophed/D5W) 500 ml @ 1.87 mls/hr TITRATE IV ; Start 2/25/17 at 17:00 SHAAN BUTT Sep 27, 2016 10:54
[2016-09-27] MEDS ORDERED: POTASSIUM CHLORIDE 250 ML IVPB ONE (13:30)
[2016-09-27] MEDS: DEXTROSE 5%-0.225% NACL 1,000 ML IV SCH (14:13)
[2016-09-27] MEDS: FAT EMULSION 20% 250 ML IV SCH (14:13)
[2016-09-27] MEDS ORDERED: DIATR MEGLU/DIATRIZOATE SODIUM 120 ML BTL ONE (14:14)
[2016-09-27] MEDS: TPN 1,000 ML IV SCH (14:18)
[2016-09-27] MEDS ORDERED: SOD CHLORIDE 0.9% IV SCH (14:30)
[2016-09-27] MEDS ORDERED: POTASSIUM CHLORIDE IV SCH (14:30)
--- NOTE | 2016-09-27 14:52 | CONS ---
Date/Time of Note Date/Time of Note DATE: 09/27/16 TIME: 14:50 Assessment/Plan Assessment/Plan Additional Assessment/Plan Intermittent atrial tachycardia and atrial fibrillation Frequent PACs and PVCs Preserved ejection fraction Hypotension Hematemesis Respiratory failure Encephalopathy Acute kidney injury -Heart rhythm remains stable in sinus rhythm. Potassium and magnesium supplementation has been ordered. Consultation Date/Type/Reason Admit Date/Time Aug 31, 2016 at 14:59 Initial Consult Date 09/02/16 Type of Consultation: cv Referring Provider: MRAIO ROWE 24 HR Interval Summary Free Text/Dictation Patient seen and examined. No cardiac issues as per nursing staff Exam/Review of Systems Vital Signs Vitals Vital Signs Date Time Temp Pulse Resp B/P Pulse Ox O2 Delivery O2 Flow Rate FiO2 09/27/16 13:37 69 18 100 30 09/27/16 12:00 98.2 147/93 Mechanical Ventilator Intake and Output 09/26/16 09/26/16 09/27/16 15:00 23:00 07:00 Intake Total 60 ml 1204.0 ml Output Total 1000 ml Balance -940 ml 1204.0 ml Exam No apparent distress, no response to verbal stimuli Neck: other (Tracheostomy) Respiratory: other (Coarse breath sounds bilaterally, no wheezing) Cardiovascular: other (S1-S2 heard), regular rate and rhythm Gastrointestinal: bowel sounds, non-tender, other (No grimacing with palpation) , soft Extremities: edema (Trace) Results Result Diagram: 09/27/16 0605 09/27/16 0605 Results 24 hrs Laboratory Tests Test 09/26/16 16:52 09/26/16 20:04 09/27/16 02:16 09/27/16 06:05 Bedside Glucose 140 134 188 Alanine Aminotransferase (ALT/SGPT) 14 Albumin 2.3 L Albumin/Globulin Ratio 0.69 Alkaline Phosphatase 47 Anion Gap 14 Aspartate Amino Transf (AST/SGOT) 12 L Basophils # 0.0 Basophils % 0.0 Blood Urea Nitrogen 52 H Calcium Level 7.8 L Carbon Dioxide Level 18 L Chloride Level 103 Creatinine 2.07 H Direct Bilirubin 0.00 Eosinophils # 0.0 Eosinophils % 0.0 Globulin 3.30 H Glucose Level 176 Hematocrit 31.1 L Hemoglobin 10.6 L Indirect Bilirubin 0.0 Lymphocytes # 0.6 L Lymphocytes % 12.2 L Magnesium Level 1.5 L Mean Corpuscular Hemoglobin 26.8 L Mean Corpuscular Hemoglobin Concent 34.1 Mean Corpuscular Volume 78.5 L Mean Platelet Volume 12.7 H Monocytes # 0.3 Monocytes % 5.2 Neutrophils # 4.0 Neutrophils % 82.2 H Nucleated Red Blood Cells # 0.1 H Nucleated Red Blood Cells % 1.2 H Phosphorus Level 1.9 L Platelet Count 207 Potassium Level 3.4 L Red Blood Count 3.96 L Red Cell Distribution Width 18.5 H Sodium Level 132 L Total Bilirubin 0.0 L Total Protein 5.6 L White Blood Count 4.8 Test 09/27/16 08:45 09/27/16 14:12 Bedside Glucose 163 130 Medications Medications Current Medications Collagenase (Santyl) 1 applic DAILY TOP Last administered on 09/27/16 08:43; Admin Dose 1 APPLIC; Start 09/02/16 at 11:30 Hydralazine HCl (Apresoline) 10 mg Q4H PRN IV ELEVATED BLOOD PRESSURE Last administered on 09/25/16 10:20; Admin Dose 10 MG; Start 09/17/16 at 16:00 Metoclopramide HCl (Reglan) 5 mg Q6 IV Last administered on 09/27/16 12:21; Admin Dose 5 MG; Start 09/17/16 at 18:00 Morphine Sulfate (morphine) 2 mg Q4H PRN IV PAIN LEVEL 7-10 Last administered on 09/22/16 04:56; Admin Dose 2 MG; Start 09/18/16 at 12:00 Metoclopramide HCl (Reglan) 10 mg Q6H PRN IV .FOR GASTRIC RESIDUAL > 100 ML Last administered on 09/21/16 13:34; Admin Dose 10 MG; Start 09/20/16 at 12:30 Pantoprazole (Protonix Iv) 40 mg BID@06,18 IV Last administered on 09/27/16 06 :46; Admin Dose 40 MG; Start 09/20/16 at 18:00 Metoprolol Tartrate (Lopressor) 25 mg BID PO Last administered on 09/27/16 08: 43; Admin Dose 25 MG; Start 09/20/16 at 21:00 Docusate Sodium 100 mg 100 mg BID PRN GTB CONSTIPATION; Start 09/23/16 at 15:30 Levofloxacin/ Dextrose 100 ml @ 100 mls/hr Q48H IVPB Last administered on 09/26 00:00; Admin Dose 100 MLS/HR; Start 09/23/16 at 23:30 Dextrose/Sodium Chloride (D5-1/4ns) 1,000 ml @ 50 mls/hr Q20H IV Last administered on 09/27/16 14:13; Admin Dose 50 MLS/HR; Start 09/23/16 at 23:45 Diagnostic Test (Pha) 1 ea 1 ea Q4 XX Last administered on 09/27/16 13:00; Admin Dose 1 EA; Start 09/24/16 at 13:00 Total Parenteral Nutrition 1,000 ml @ 60 mls/hr [id number] IV Last administered on 09/27/16 14:18; Admin Dose 60 MLS/HR; Start 09/24/16 at 14:00 Fat Emulsion Intravenous (Liposyn Ii 20%) 250 ml @ 10.4 mls/hr Q24H IV Last administered on 09/27/16 14:13; Admin Dose 10.4 MLS/HR; Start 09/24/16 at 14:00 IV Flush (NS 10 ml) 10 ml PRN PRN IV IV PROTOCOL; Start 09/24/16 at 14:00 Methylprednisolone Sodium Succinate (Solu-Medrol) 40 mg QHS IV Last administered on 09/26/16 21:15; Admin Dose 40 MG; Start 09/25/16 at 21:00 Amiodarone HCl 200 mg 200 mg DAILY NGT Last administered on 09/27/16 08:42; Admin Dose 200 MG; Start 09/25/16 at 09:00 Norepinephrine 16 mg/Dextrose 500 ml @ 1.87 mls/hr TITRATE IV ; Start 09/25/16 at 17:00 Potassium Chloride 250 ml @ 62.5 mls/hr ONCE ONCE IVPB ; Start 09/27/16 at 13: 30; Stop 09/27/16 at 17:29 Potassium Chloride/Sodium Chloride (KCl/NS) 250 ml @ 62.5 mls/hr ONCE IV ; Start 09/27/16 at 14:30; Stop 09/27/16 at 20:00 Maynor Broderick DO Sep 27, 2016 14:52
[2016-09-27] MEDS: morphine 2 MG INJ IV PRN (15:54)
[2016-09-27] MEDS ORDERED: METOPROLOL 5 MG INJ IV PRN (18:00)
--- NOTE | 2016-09-27 18:29 | PN ---
Date/Time of Note Date/Time of Note DATE: 09/27/16 TIME: 18:26 Assessment/Plan VTE Prophylaxis VTE Prophylaxis Intervention: SCD's Lines/Catheters IV Catheter Type (from Nrs): PICC Line Central line still needed: Yes Urinary Cath still in place: Yes Reason Cath still needed: urinary retention Assessment/Plan Chief Complaint/Hosp Course ASSESSMENT AND PLAN: - SBO per CT. G-tube feeding is on hold. N.p.o. start TPN. Dr. Torres is following in general surgery consultation. - Systemic inflammatory response syndrome with leukocytosis, possible aspiration. Continue broad-spectrum antibiotics, monitor chest x-ray. - RAYNA 2 to dehydration and SIRS, continue IV fluids . Dr Miramontes is following in nephrology consultation.. - Dysphagia, s/p J-tube placement. 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 Continue Protonix. Dr. Pryor is following the patient in gastroenterology consultation. - Anemia 2 to GI bleed, monitor H&H, transfuse as needed. - Dehydration secondary to vomiting, resolved. - S/p sepsis with Staph bacteremia [address] Kitty yoo is following in ID consultation. Continue abx per ID. 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 - Ventilator-dependent respiratory failure with tracheostomy. Dr. Morrison is following from pulmonology standpoint. Continue bronchodilators and pulmonary toilet. - Chronic obstructive pulmonary disease. - Chronic Chaudhari catheter. - Colostomy - Hypertension, metoprolol and hydralazine as needed. - Bedbound status. - Acute kidney injury, resolved. - MRSA UTI , s/p treatment. - MRSA of nares. Continue Bactroban. - Intermittent atrial tachycardia. Dr. Broderick is is following in cardiology consultation. Continue sequential compression device for deep venous thrombosis prophylaxis and Protonix for peptic ulcer disease prophylaxis. Further recommendations based on clinical course. Plan of care discussed with Dr. Meeks. Problems: Subjective 24 Hr Interval Summary Free Text/Dictation Patient continues on TPN, no nausea vomiting reported. Exam/Review of Systems Vital Signs Vitals Vital Signs Date Time Temp Pulse Resp B/P Pulse Ox O2 Delivery O2 Flow Rate FiO2 09/27/16 17:30 60 19 100 30 09/27/16 17:00 156/96 Mechanical Ventilator 09/27/16 16:00 98.6 Intake and Output 09/26/16 09/26/16 09/27/16 15:00 23:00 07:00 Intake Total 60 ml 1324.4 ml Output Total 1000 ml 100 ml Balance -940 ml 1224.4 ml Exam GENERAL: Well-developed, cachectic gentleman currently obtunded on ventilator support via tracheostomy. HEENT: Pupils equal, round, reactive to light and accommodation. NECK: Supple, no cervical lymphadenopathy, no thyromegaly. Tracheostomy the base of the neck with small amount of secretions. LUNGS: Rhonchi bilaterally, slightly diminished at the bases. CARDIOVASCULAR: Normal S1, S2. No murmurs, gallops, clicks, rubs noted. ABDOMEN: Flat, soft, nondistended, nontender. Bowel sounds present. Patient has left lower quadrant colostomy with pink, moist stoma. G-tube. GENITOURINARY: The patient also has a Chaudhari catheter. EXTREMITIES: No edema, clubbing, cyanosis. Pulses equal bilaterally 2+. Lower extremities contracted. SKIN: There is no rash, petechiae noted. sacral decubitus ulcer. NEUROLOGIC: Patient does not follow any commands. Results Result Diagram: 09/27/16 0609/27/16 06 Results 24 hrs Laboratory Tests Test 09/26/16 20:04 09/27/16 02:16 09/27/16 06:05 09/27/16 08:45 Bedside Glucose 134 188 163 Alanine Aminotransferase (ALT/SGPT) 14 Albumin 2.3 L Albumin/Globulin Ratio 0.69 Alkaline Phosphatase 47 Anion Gap 14 Aspartate Amino Transf (AST/SGOT) 12 L Basophils # 0.0 Basophils % 0.0 Blood Urea Nitrogen 52 H Calcium Level 7.8 L Carbon Dioxide Level 18 L Chloride Level 103 Creatinine 2.07 H Direct Bilirubin 0.00 Eosinophils # 0.0 Eosinophils % 0.0 Globulin 3.30 H Glucose Level 176 Hematocrit 31.1 L Hemoglobin 10.6 L Indirect Bilirubin 0.0 Lymphocytes # 0.6 L Lymphocytes % 12.2 L Magnesium Level 1.5 L Mean Corpuscular Hemoglobin 26.8 L Mean Corpuscular Hemoglobin Concent 34.1 Mean Corpuscular Volume 78.5 L Mean Platelet Volume 12.7 H Monocytes # 0.3 Monocytes % 5.2 Neutrophils # 4.0 Neutrophils % 82.2 H Nucleated Red Blood Cells # 0.1 H Nucleated Red Blood Cells % 1.2 H Phosphorus Level 1.9 L Platelet Count 207 Potassium Level 3.4 L Red Blood Count 3.96 L Red Cell Distribution Width 18.5 H Sodium Level 132 L Total Bilirubin 0.0 L Total Protein 5.6 L White Blood Count 4.8 Test 09/27/16 14:12 09/27/16 17:53 Bedside Glucose 130 154 Medications Medications Current Medications Collagenase (Santyl) 1 applic DAILY TOP Last administered on 09/27/16 08:43; Admin Dose 1 APPLIC; Start 09/02/16 at 11:30 Hydralazine HCl (Apresoline) 10 mg Q4H PRN IV ELEVATED BLOOD PRESSURE Last administered on 09/25/16 10:20; Admin Dose 10 MG; Start 09/17/16 at 16:00 Metoclopramide HCl (Reglan) 5 mg Q6 IV Last administered on 09/27/16 17:52; Admin Dose 5 MG; Start 09/17/16 at 18:00 Morphine Sulfate (morphine) 2 mg Q4H PRN IV PAIN LEVEL 7-10 Last administered on 09/27/16 15:54; Admin Dose 2 MG; Start 09/18/16 at 12:00 Metoclopramide HCl (Reglan) 10 mg Q6H PRN IV .FOR GASTRIC RESIDUAL > 100 ML Last administered on 09/21/16 13:34; Admin Dose 10 MG; Start 09/20/16 at 12:30 Pantoprazole (Protonix Iv) 40 mg BID@06,18 IV Last administered on 09/27/16 17 :52; Admin Dose 40 MG; Start 09/20/16 at 18:00 Metoprolol Tartrate (Lopressor) 25 mg BID PO Last administered on 09/27/16 08: 43; Admin Dose 25 MG; Start 09/20/16 at 21:00 Docusate Sodium 100 mg 100 mg BID PRN GTB CONSTIPATION; Start 09/23/16 at 15:30 Levofloxacin/ Dextrose 100 ml @ 100 mls/hr Q48H IVPB Last administered on 09/26 00:00; Admin Dose 100 MLS/HR; Start 09/23/16 at 23:30 Dextrose/Sodium Chloride (D5-1/4ns) 1,000 ml @ 50 mls/hr Q20H IV Last administered on 09/27/16 14:13; Admin Dose 50 MLS/HR; Start 09/23/16 at 23:45 Diagnostic Test (Pha) 1 ea 1 ea Q4 XX Last administered on 09/27/16 17:54; Admin Dose 1 EA; Start 09/24/16 at 13:00 Total Parenteral Nutrition 1,000 ml @ 60 mls/hr [id number] IV Last administered on 09/27/16 14:18; Admin Dose 60 MLS/HR; Start 09/24/16 at 14:00 Fat Emulsion Intravenous (Liposyn Ii 20%) 250 ml @ 10.4 mls/hr Q24H IV Last administered on 09/27/16 14:13; Admin Dose 10.4 MLS/HR; Start 09/24/16 at 14:00 IV Flush (NS 10 ml) 10 ml PRN PRN IV IV PROTOCOL; Start 09/24/16 at 14:00 Methylprednisolone Sodium Succinate (Solu-Medrol) 40 mg QHS IV Last administered on 09/26/16 21:15; Admin Dose 40 MG; Start 09/25/16 at 21:00 Amiodarone HCl 200 mg 200 mg DAILY NGT Last administered on 09/27/16 08:42; Admin Dose 200 MG; Start 09/25/16 at 09:00 Norepinephrine 16 mg/Dextrose 500 ml @ 1.87 mls/hr TITRATE IV ; Start 09/25/16 at 17:00 Potassium Chloride/Sodium Chloride (KCl/NS) 250 ml @ 62.5 mls/hr ONCE IV Last administered on 09/27/16 16:29; Admin Dose 62.5 MLS/HR; Start 09/27/16 at 14:30 ; Stop 09/27/16 at 20:00 Metoprolol Tartrate (Lopressor) 5 mg Q6H PRN IV IF HEART RATE ABOVE 120; Start 09/27/16 at 18:00 AMY MORAN Sep 27, 2016 18:29
--- NOTE | 2016-09-27 20:32 | RADRPT ---
PROCEDURE: Small bowel follow-through. CLINICAL INDICATION: Abdomen pain. TECHNIQUE: Water-soluble contrast was administered orally and several spot and overhead radiograph s of the abdomen were obtained. COMPARISON: None. FINDINGS: The preliminary radiograph is normal. There is no small bowel displacement or mass. The small bowel folds are normal. There is no evidence of obstruction. Transit time is normal with contrast in the colon at 3 hours. Contrast is present throughout the colon and 4 hours. IMPRESSION: 1. Normal small bowel follow-through. RPTAT: QQ .Carter Hogan MD, MD Date Time Electronically viewed and signed by .Carter Hogan MD, MD on 09/27/2016 20:32 .R/
[2016-09-27] MEDS: METHYLPREDNISOLONE 40 MG INJ IV SCH (22:23)
--- NOTE | 2016-09-27 22:24 | CONS ---
Date/Time of Note Date/Time of Note DATE: 09/27/16 TIME: 22:16 Assessment/Plan Assessment/Plan Chief Complaint/Hosp Course With increased Urine Vol, Somewhat decreasing Creat renal fn may be on the verge of reversal. Problems: Additional Assessment/Plan Continued,, ghraadual improvement in renal function.. Low Mg could be due to Tobramycin, will need additiional Mg IV Consultation Date/Type/Reason Admit Date/Time Aug 31, 2016 at 14:59 Initial Consult Date 09/02/16 Type of Consultation: renal Referring Provider: MARIO ROWE 24 HR Interval Summary Free Text/Dictation seems stable Subjective hx not possible: pt non-verbal Exam/Review of Systems Vital Signs Vitals Vital Signs Date Time Temp Pulse Resp B/P Pulse Ox O2 Delivery O2 Flow Rate FiO2 09/27/16 21:05 78 18 96 30 09/27/16 19:00 142/90 Mechanical Ventilator 09/27/16 16:00 98.6 Intake and Output 09/26/16 09/26/16 09/27/16 15:00 23:00 07:00 Intake Total 60 ml 1324.4 ml Output Total 1000 ml 100 ml Balance -940 ml 1224.4 ml Exam Constitutional: alert, oriented, well developed Psych: nl mood/affect, no complaints Head: atraumatic, normocephalic Eyes: EOMI, PERRL, nl conjunctiva, nl lids, nl sclera ENMT: nl external ears & nose, nl lips & teeth, nl nasal mucosa & septum, other (no movements) Neck: non-tender, supple Respiratory: clear to auscultation, normal air movement Cardiovascular: nl pulses, regular rate and rhythm Gastrointestinal: nl liver, spleen, non-tender, soft Genitourinary - Male: other (vincent draining urine) Musculoskeletal: nl extremities to inspection, nl gait and stance Extremities: normal pulses, other (deformities) 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, nl mental status, nl speech, nl strength Skin: nl turgor, No rash or lesions Results Result Diagram: 09/27/16 0605 09/27/16 0605 Results 24 hrs Laboratory Tests Test 09/27/16 02:16 09/27/16 06:05 09/27/16 08:45 09/27/16 14:12 Bedside Glucose 188 163 130 Alanine Aminotransferase (ALT/SGPT) 14 Albumin 2.3 L Albumin/Globulin Ratio 0.69 Alkaline Phosphatase 47 Anion Gap 14 Aspartate Amino Transf (AST/SGOT) 12 L Basophils # 0.0 Basophils % 0.0 Blood Urea Nitrogen 52 H Calcium Level 7.8 L Carbon Dioxide Level 18 L Chloride Level 103 Creatinine 2.07 H Direct Bilirubin 0.00 Eosinophils # 0.0 Eosinophils % 0.0 Globulin 3.30 H Glucose Level 176 Hematocrit 31.1 L Hemoglobin 10.6 L Indirect Bilirubin 0.0 Lymphocytes # 0.6 L Lymphocytes % 12.2 L Magnesium Level 1.5 L Mean Corpuscular Hemoglobin 26.8 L Mean Corpuscular Hemoglobin Concent 34.1 Mean Corpuscular Volume 78.5 L Mean Platelet Volume 12.7 H Monocytes # 0.3 Monocytes % 5.2 Neutrophils # 4.0 Neutrophils % 82.2 H Nucleated Red Blood Cells # 0.1 H Nucleated Red Blood Cells % 1.2 H Phosphorus Level 1.9 L Platelet Count 207 Potassium Level 3.4 L Red Blood Count 3.96 L Red Cell Distribution Width 18.5 H Sodium Level 132 L Total Bilirubin 0.0 L Total Protein 5.6 L White Blood Count 4.8 Test 09/27/16 17:53 Bedside Glucose 154 Medications Medications Current Medications Collagenase (Santyl) 1 applic DAILY TOP Last administered on 09/27/16 08:43; Admin Dose 1 APPLIC; Start 09/02/16 at 11:30 Hydralazine HCl (Apresoline) 10 mg Q4H PRN IV ELEVATED BLOOD PRESSURE Last administered on 09/25/16 10:20; Admin Dose 10 MG; Start 09/17/16 at 16:00 Metoclopramide HCl (Reglan) 5 mg Q6 IV Last administered on 09/27/16 17:52; Admin Dose 5 MG; Start 09/17/16 at 18:00 Morphine Sulfate (morphine) 2 mg Q4H PRN IV PAIN LEVEL 7-10 Last administered on 09/27/16 15:54; Admin Dose 2 MG; Start 09/18/16 at 12:00 Metoclopramide HCl (Reglan) 10 mg Q6H PRN IV .FOR GASTRIC RESIDUAL > 100 ML Last administered on 09/21/16 13:34; Admin Dose 10 MG; Start 09/20/16 at 12:30 Pantoprazole (Protonix Iv) 40 mg BID@06,18 IV Last administered on 09/27/16 17 :52; Admin Dose 40 MG; Start 09/20/16 at 18:00 Metoprolol Tartrate (Lopressor) 25 mg BID PO Last administered on 09/27/16 08: 43; Admin Dose 25 MG; Start 09/20/16 at 21:00 Docusate Sodium 100 mg 100 mg BID PRN GTB CONSTIPATION; Start 09/23/16 at 15:30 Levofloxacin/ Dextrose 100 ml @ 100 mls/hr Q48H IVPB Last administered on 09/26 00:00; Admin Dose 100 MLS/HR; Start 09/23/16 at 23:30 Dextrose/Sodium Chloride (D5-1/4ns) 1,000 ml @ 50 mls/hr Q20H IV Last administered on 09/27/16 14:13; Admin Dose 50 MLS/HR; Start 09/23/16 at 23:45 Diagnostic Test (Pha) 1 ea 1 ea Q4 XX Last administered on 09/27/16 17:54; Admin Dose 1 EA; Start 09/24/16 at 13:00 Total Parenteral Nutrition 1,000 ml @ 60 mls/hr [id number] IV Last administered on 09/27/16 14:18; Admin Dose 60 MLS/HR; Start 09/24/16 at 14:00 Fat Emulsion Intravenous (Liposyn Ii 20%) 250 ml @ 10.4 mls/hr Q24H IV Last administered on 09/27/16 14:13; Admin Dose 10.4 MLS/HR; Start 09/24/16 at 14:00 IV Flush (NS 10 ml) 10 ml PRN PRN IV IV PROTOCOL; Start 09/24/16 at 14:00 Methylprednisolone Sodium Succinate (Solu-Medrol) 40 mg QHS IV Last administered on 09/26/16 21:15; Admin Dose 40 MG; Start 09/25/16 at 21:00 Amiodarone HCl 200 mg 200 mg DAILY NGT Last administered on 09/27/16 08:42; Admin Dose 200 MG; Start 09/25/16 at 09:00 Norepinephrine/ Dextrose (Levophed/D5W) 500 ml @ 1.87 mls/hr TITRATE IV ; Start 09/25/16 at 17:00 Metoprolol Tartrate (Lopressor) 5 mg Q6H PRN IV IF HEART RATE ABOVE 120; Start 09/27/16 at 18:00 JAMES PIERSON MD Sep 27, 2016 22:24
[2016-09-28] VITALS (34 sets, daily range): BP systolic 130–167; BP diastolic 80–103; PULSE 50–76; RESP 12–26
[2016-09-28] MEDS: LEVOFLOXACIN 500MG/D5W (PMX) 100 ML IVPB SCH (00:23)
[2016-09-28] MEDS: METOCLOPRAMIDE 10 MG INJ IV SCH ×5 (00:23→23:37)
[2016-09-28] MEDS: ACCUCHECK XX SCH ×6 (01:00→21:08)
[2016-09-28 04:43] LABS: ADD SCAN DIFF NO
[2016-09-28 04:54] LABS: ABNORMAL IP MESSAGE 1; EOSINOPHILS % 0.3 % (0.0-7.0); HEMATOCRIT 32.2 % (42.0-52.0); HEMOGLOBIN 9.6 g/dl (14.0-18.0); LYMPHOCYTES # 0.3 10^3/ul (0.8-2.9); LYMPHOCYTES % 8.4 % (15.0-51.0); MEAN CORPUSCULAR HEMOGLOBIN 30.5 pg (29.0-33.0); MEAN CORPUSCULAR HGB CONC 29.8 g/dl (32.0-37.0); MEAN CORPUSCULAR VOLUME 102.2 fl (82.0-101.0); MEAN PLATELET VOLUME 13.9 fl (7.4-10.4); MONOCYTE # 0.1 10^3/ul (0.3-0.9); MONOCYTES % 2.4 % (0.0-11.0); NEUTROPHIL # 2.9 10^3/ul (1.6-7.5); NEUTROPHILS % 88.3 % (39.0-77.0); NUCLEATED RED BLOOD CELLS% 0.6 /100WBC (0.0-0.0); PLATELET COUNT 170 10^3/UL (140-415); RED BLOOD COUNT 3.15 10^6/ul (4.70-6.10); WHITE BLOOD COUNT 3.3 10^3/ul (4.8-10.8)
[2016-09-28 04:59] LABS: CALCIUM 6.9 mg/dl (8.4-10.2)
[2016-09-28] MEDS: PANTOPRAZOLE 40 MG INJ IV SCH ×2 (05:32→18:17)
[2016-09-28 06:09] LABS: POTASSIUM 3.3 mmol/L (3.5-5.1)
[2016-09-28 06:20] LABS: PHOSPHORUS 1.8 mg/dl (2.5-4.9)
[2016-09-28 06:21] LABS: MAGNESIUM 2.3 mg/dl (1.7-2.5)
[2016-09-28] MEDS: TOBRAMYCIN/0.25NS 300 MG/5 ML INHAL NEB SCH ×2 (08:31→20:00)
--- NOTE | 2016-09-28 08:55 | CONS ---
Date/Time of Note Date/Time of Note DATE: 09/28/16 TIME: 08:53 Assessment/Plan Assessment/Plan Chief Complaint/Hosp Course assessment/impression - h/o sepsis - acute on chronic respiratory failure - SBO/ileus. 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 the wound culture grew carbapenemase producing kleb, enterococci and pseudo - h/o dysphagia s/p EGD and new G tube placement 09/15/2016 - on TPN - h/o infection of wound of RLE due to pseudomonas. 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 management d/w Pt's RN the critical care time I took to care for this Pt today was from 0830 to 0900 Problems: Consultation Date/Type/Reason Admit Date/Time Aug 31, 2016 at 14:59 Initial Consult Date 09/01/16 Type of Consultation: ID Referring Provider: MARIO ROWE 24 HR Interval Summary Subjective hx not possible: pt non-verbal, pt critical, pt critical status Exam/Review of Systems Vital Signs Vitals Vital Signs Date Time Temp Pulse Resp B/P Pulse Ox O2 Delivery O2 Flow Rate FiO2 09/28/16 08:00 55 09/28/16 06:00 12 144/91 100 Mechanical Ventilator 09/28/16 05:05 30 09/28/16 04:00 98.0 Intake and Output 09/27/16 09/27/16 09/28/16 15:00 23:00 07:00 Intake Total 1343.6 ml 1088.2 ml 1042.8 ml Output Total 530 ml 750 ml 650 ml Balance 813.6 ml 338.2 ml 392.8 ml Exam Constitutional: frail, non-verbal Psych: confusion Head: other (temporal atrophy) Eyes: nl lids ENMT: other (trach) Respiratory: diminished breath sounds Cardiovascular: nl pulses, regular rate and rhythm Gastrointestinal: other (GT ostomy RT), soft, No distended, No tender Genitourinary - Male: other (FC) Extremities: No edema Neurological: confused, unresponsive Skin: laceration (lateral RLE, dressed c/d/i) Results Result Diagram: 09/28/16 0400 09/28/16 0400 Results 24 hrs Laboratory Tests Test 09/27/16 14:12 09/27/16 17:53 09/27/16 22:34 09/28/16 02:30 Bedside Glucose 130 154 131 199 Test 09/28/16 04:00 09/28/16 05:29 Anion Gap 25 #H Basophils # 0.0 Basophils % 0.0 Blood Urea Nitrogen 32 #H Calcium Level 6.9 L Carbon Dioxide Level 11 L Chloride Level 105 Creatinine 2.00 H Eosinophils # 0.0 Eosinophils % 0.3 Glucose Level 196 Hematocrit 32.2 L Hemoglobin 9.6 L Lymphocytes # 0.3 L Lymphocytes % 8.4 L Magnesium Level 2.3 Mean Corpuscular Hemoglobin 30.5 Mean Corpuscular Hemoglobin Concent 29.8 L Mean Corpuscular Volume 102.2 #H Mean Platelet Volume 13.9 H Monocytes # 0.1 L Monocytes % 2.4 Neutrophils # 2.9 Neutrophils % 88.3 H Nucleated Red Blood Cells # 0.0 Nucleated Red Blood Cells % 0.6 H Phosphorus Level 1.8 L Platelet Count 170 Potassium Level 3.3 L Red Blood Count 3.15 #L Red Cell Distribution Width 21.0 H Sodium Level 138 White Blood Count 3.3 #L Bedside Glucose 237 H Medications Medications Current Medications Collagenase (Santyl) 1 applic DAILY TOP Last administered on 09/27/16 08:43; Admin Dose 1 APPLIC; Start 09/02/16 at 11:30 Hydralazine HCl (Apresoline) 10 mg Q4H PRN IV ELEVATED BLOOD PRESSURE Last administered on 09/25/16 10:20; Admin Dose 10 MG; Start 09/17/16 at 16:00 Metoclopramide HCl (Reglan) 5 mg Q6 IV Last administered on 09/28/16 05:33; Admin Dose 5 MG; Start 09/17/16 at 18:00 Morphine Sulfate (morphine) 2 mg Q4H PRN IV PAIN LEVEL 7-10 Last administered on 09/27/16 15:54; Admin Dose 2 MG; Start 09/18/16 at 12:00 Metoclopramide HCl (Reglan) 10 mg Q6H PRN IV .FOR GASTRIC RESIDUAL > 100 ML Last administered on 09/21/16 13:34; Admin Dose 10 MG; Start 09/20/16 at 12:30 Pantoprazole (Protonix Iv) 40 mg BID@06,18 IV Last administered on 09/28/16 05 :32; Admin Dose 40 MG; Start 09/20/16 at 18:00 Metoprolol Tartrate (Lopressor) 25 mg BID PO Last administered on 09/27/16 08: 43; Admin Dose 25 MG; Start 09/20/16 at 21:00 Docusate Sodium 100 mg 100 mg BID PRN GTB CONSTIPATION; Start 09/23/16 at 15:30 Levofloxacin/ Dextrose 100 ml @ 100 mls/hr Q48H IVPB Last administered on 09/28 00:23; Admin Dose 100 MLS/HR; Start 09/23/16 at 23:30 Dextrose/Sodium Chloride (D5-1/4ns) 1,000 ml @ 50 mls/hr Q20H IV Last administered on 09/27/16 14:13; Admin Dose 50 MLS/HR; Start 09/23/16 at 23:45 Diagnostic Test (Pha) 1 ea 1 ea Q4 XX Last administered on 09/28/16 05:29; Admin Dose 1 EA; Start 09/24/16 at 13:00 Total Parenteral Nutrition 1,000 ml @ 60 mls/hr [id number] IV Last administered on 09/27/16 14:18; Admin Dose 60 MLS/HR; Start 09/24/16 at 14:00 Fat Emulsion Intravenous (Liposyn Ii 20%) 250 ml @ 10.4 mls/hr Q24H IV Last administered on 09/27/16 14:13; Admin Dose 10.4 MLS/HR; Start 09/24/16 at 14:00 IV Flush (NS 10 ml) 10 ml PRN PRN IV IV PROTOCOL; Start 09/24/16 at 14:00 Methylprednisolone Sodium Succinate (Solu-Medrol) 40 mg QHS IV Last administered on 09/27/16 22:23; Admin Dose 40 MG; Start 09/25/16 at 21:00 Amiodarone HCl 200 mg 200 mg DAILY NGT Last administered on 09/27/16 08:42; Admin Dose 200 MG; Start 09/25/16 at 09:00 Norepinephrine/ Dextrose (Levophed/D5W) 500 ml @ 1.87 mls/hr TITRATE IV ; Start 09/25/16 at 17:00 Metoprolol Tartrate (Lopressor) 5 mg Q6H PRN IV IF HEART RATE ABOVE 120; Start 09/27/16 at 18:00 LIZZY HECK M.D. Sep 28, 2016 08:55
[2016-09-28] MEDS: TPN 1,000 ML IV SCH ×2 (08:57→17:53)
[2016-09-28] MEDS: METOPROLOL 25 MG TAB PO SCH ×2 (08:59→09:00)
[2016-09-28] MEDS: AMIODARONE 200 MG TAB NGT SCH ×2 (08:59→09:00)
[2016-09-28] MEDS: COLLAGENASE 30 GM TUBE TOP SCH (08:59)
--- NOTE | 2016-09-28 09:33 | CONS ---
Date/Time of Note Date/Time of Note DATE: 09/28/16 TIME: 09:31 Assessment/Plan Assessment/Plan Additional Assessment/Plan Ventilator settings; R assist control of 16, tidal volume 500, PEEP of 5, 30% FiO2. Assessment and recommendations; 1. Patient admitted with pneumonia and sepsis with significant clinical improvement. 2. Ileus with interval improvement as well. Abdomen examination is totally benign. 3. Chronic respiratory failure, ventilator dependent. History of severe anoxic brain injury. 4. History of renal insufficiency. With stable serum creatinine. 4. History of prior colostomy. Continue current supportive care. Patient can be transferred to subacute facility. Overall prognosis remains poor. Consultation Date/Type/Reason Admit Date/Time Aug 31, 2016 at 14:59 Initial Consult Date 09/01/16 Type of Consultation: Pulmonary/critical care Referring Provider: MARIO ROWE 24 HR Interval Summary Free Text/Dictation Patient condition remains unchanged. Remains completely unresponsive. Remains ventilator dependent. Has remained hemodynamically stable. General examination; elderly male, on ventilator via tracheostomy unresponsive. Exam/Review of Systems Vital Signs Vitals Vital Signs Date Time Temp Pulse Resp B/P Pulse Ox O2 Delivery O2 Flow Rate FiO2 09/28/16 08:00 55 09/28/16 06:00 12 144/91 100 Mechanical Ventilator 09/28/16 05:05 30 09/28/16 04:00 98.0 Intake and Output 09/27/16 09/27/16 09/28/16 15:00 23:00 07:00 Intake Total 1343.6 ml 1088.2 ml 1042.8 ml Output Total 530 ml 750 ml 650 ml Balance 813.6 ml 338.2 ml 392.8 ml Exam H EENT examination; supple neck, no JVD. No lymphadenopathy. Tracheostomy in place with clean insertion site. Patient is edentulous. There was a small bilaterally. No neck masses, no thyromegaly. Chest examination; diminished but clear breath sounds bilaterally. S1-S2 audible, no murmurs. Regular rhythm. Abdomen examination; soft, colostomy in place. G-tube in place. Bowel sounds are audible. Abdomen is nondistended. Extremity examination; no peripheral edema. SALES VICE PRESIDENT examination; patient remains completely unresponsive. Results Result Diagram: 09/28/16 0400 09/28/16 0400 Results 24 hrs Laboratory Tests Test 09/27/16 14:12 09/27/16 17:53 09/27/16 22:34 09/28/16 02:30 Bedside Glucose 130 154 131 199 Test 09/28/16 04:00 09/28/16 05:29 09/28/16 09:20 Anion Gap 25 #H Basophils # 0.0 Basophils % 0.0 Blood Urea Nitrogen 32 #H Calcium Level 6.9 L Carbon Dioxide Level 11 L Chloride Level 105 Creatinine 2.00 H Eosinophils # 0.0 Eosinophils % 0.3 Glucose Level 196 Hematocrit 32.2 L Hemoglobin 9.6 L Lymphocytes # 0.3 L Lymphocytes % 8.4 L Magnesium Level 2.3 Mean Corpuscular Hemoglobin 30.5 Mean Corpuscular Hemoglobin Concent 29.8 L Mean Corpuscular Volume 102.2 #H Mean Platelet Volume 13.9 H Monocytes # 0.1 L Monocytes % 2.4 Neutrophils # 2.9 Neutrophils % 88.3 H Nucleated Red Blood Cells # 0.0 Nucleated Red Blood Cells % 0.6 H Phosphorus Level 1.8 L Platelet Count 170 Potassium Level 3.3 L Red Blood Count 3.15 #L Red Cell Distribution Width 21.0 H Sodium Level 138 White Blood Count 3.3 #L Bedside Glucose 237 H 199 Medications Medications Current Medications Collagenase (Santyl) 1 applic DAILY TOP Last administered on 09/28/16 08:59; Admin Dose 1 APPLIC; Start 09/02/16 at 11:30 Hydralazine HCl (Apresoline) 10 mg Q4H PRN IV ELEVATED BLOOD PRESSURE Last administered on 09/25/16 10:20; Admin Dose 10 MG; Start 09/17/16 at 16:00 Metoclopramide HCl (Reglan) 5 mg Q6 IV Last administered on 09/28/16 05:33; Admin Dose 5 MG; Start 09/17/16 at 18:00 Morphine Sulfate (morphine) 2 mg Q4H PRN IV PAIN LEVEL 7-10 Last administered on 09/27/16 15:54; Admin Dose 2 MG; Start 09/18/16 at 12:00 Metoclopramide HCl (Reglan) 10 mg Q6H PRN IV .FOR GASTRIC RESIDUAL > 100 ML Last administered on 09/21/16 13:34; Admin Dose 10 MG; Start 09/20/16 at 12:30 Pantoprazole (Protonix Iv) 40 mg BID@06,18 IV Last administered on 09/28/16 05 :32; Admin Dose 40 MG; Start 09/20/16 at 18:00 Metoprolol Tartrate (Lopressor) 25 mg BID PO Last administered on 09/27/16 08: 43; Admin Dose 25 MG; Start 09/20/16 at 21:00 Docusate Sodium 100 mg 100 mg BID PRN GTB CONSTIPATION; Start 09/23/16 at 15:30 Dextrose/Sodium Chloride (D5-1/4ns) 1,000 ml @ 50 mls/hr Q20H IV Last administered on 09/27/16 14:13; Admin Dose 50 MLS/HR; Start 09/23/16 at 23:45 Diagnostic Test (Pha) 1 ea 1 ea Q4 XX Last administered on 09/28/16 09:25; Admin Dose 1 EA; Start 09/24/16 at 13:00 Total Parenteral Nutrition 1,000 ml @ 60 mls/hr [id number] IV Last administered on 09/28/16 08:57; Admin Dose 60 MLS/HR; Start 09/24/16 at 14:00 Fat Emulsion Intravenous (Liposyn Ii 20%) 250 ml @ 10.4 mls/hr Q24H IV Last administered on 09/27/16 14:13; Admin Dose 10.4 MLS/HR; Start 09/24/16 at 14:00 IV Flush (NS 10 ml) 10 ml PRN PRN IV IV PROTOCOL; Start 09/24/16 at 14:00 Methylprednisolone Sodium Succinate (Solu-Medrol) 40 mg QHS IV Last administered on 09/27/16 22:23; Admin Dose 40 MG; Start 09/25/16 at 21:00 Amiodarone HCl 200 mg 200 mg DAILY NGT Last administered on 09/27/16 08:42; Admin Dose 200 MG; Start 09/25/16 at 09:00 Norepinephrine/ Dextrose (Levophed/D5W) 500 ml @ 1.87 mls/hr TITRATE IV ; Start 09/25/16 at 17:00 Metoprolol Tartrate (Lopressor) 5 mg Q6H PRN IV IF HEART RATE ABOVE 120; Start 09/27/16 at 18:00 SHAAN BUTT Sep 28, 2016 09:33
[2016-09-28] MEDS: DEXTROSE 5%-0.225% NACL 1,000 ML IV SCH (09:53)
--- NOTE | 2016-09-28 12:01 | PN ---
Date/Time of Note Date/Time of Note DATE: 09/28/16 TIME: 11:56 Assessment/Plan VTE Prophylaxis VTE Prophylaxis Intervention: SCD's Lines/Catheters IV Catheter Type (from Nrs): PICC Line Central line still needed: Yes Urinary Cath still in place: Yes Reason Cath still needed: urinary retention Assessment/Plan Chief Complaint/Hosp Course ASSESSMENT AND PLAN: - SBO per CT. G-tube feeding is on hold. Continue TPN and lipids. Dr. Torres is following in general surgery consultation. - Systemic inflammatory response syndrome with leukocytosis, possible aspiration. Continue broad-spectrum antibiotics, monitor chest x-ray. - RAYNA 2 to dehydration and SIRS, continue IV fluids . Dr Miramontes is following in nephrology consultation. - Dysphagia, s/p J-tube placement. 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 Continue Protonix. Dr. Pryor is following the patient in gastroenterology consultation. - Anemia 2 to GI bleed, monitor H&H, transfuse as needed. - Dehydration secondary to vomiting, resolved. - S/p sepsis with Staph bacteremia [address] Kitty yoo is following in ID consultation. Continue abx per ID. 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 - Ventilator-dependent respiratory failure with tracheostomy. Dr. Morrison is following from pulmonology standpoint. Continue bronchodilators and pulmonary toilet. - Chronic obstructive pulmonary disease. - Chronic Chaudhari catheter. - Colostomy - Hypertension, metoprolol and hydralazine as needed. - Bedbound status. - Acute kidney injury, resolved. - MRSA UTI , s/p treatment. - MRSA of nares. Status post treatment. - Intermittent atrial tachycardia. Dr. Broderick is is following in cardiology consultation. Continue sequential compression device for deep venous thrombosis prophylaxis and Protonix for peptic ulcer disease prophylaxis. Further recommendations based on clinical course. Plan of care discussed with Dr. Meeks. Problems: Subjective 24 Hr Interval Summary Free Text/Dictation Patient has a little loose stool, no fever nausea vomiting per nurse, continues on TPN and lipids. Exam/Review of Systems Vital Signs Vitals Vital Signs Date Time Temp Pulse Resp B/P Pulse Ox O2 Delivery O2 Flow Rate FiO2 09/28/16 09:00 54 16 146/85 100 Mechanical Ventilator 09/28/16 08:00 97.9 09/28/16 05:05 30 Intake and Output 09/27/16 09/27/16 09/28/16 15:00 23:00 07:00 Intake Total 1343.6 ml 1088.2 ml 1042.8 ml Output Total 530 ml 750 ml 650 ml Balance 813.6 ml 338.2 ml 392.8 ml Exam GENERAL: Well-developed, cachectic gentleman currently obtunded on ventilator support via tracheostomy. HEENT: Pupils equal, round, reactive to light and accommodation. NECK: Supple, no cervical lymphadenopathy, no thyromegaly. Tracheostomy the base of the neck with small amount of secretions. LUNGS: Rhonchi bilaterally, slightly diminished at the bases. CARDIOVASCULAR: Normal S1, S2. No murmurs, gallops, clicks, rubs noted. ABDOMEN: Flat, soft, nondistended, nontender. Bowel sounds present. Patient has left lower quadrant colostomy with pink, moist stoma. G-tube. GENITOURINARY: The patient also has a Chaudhari catheter. EXTREMITIES: No edema, clubbing, cyanosis. Pulses equal bilaterally 2+. Lower extremities contracted. SKIN: There is no rash, petechiae noted. Sacral decubitus ulcer. NEUROLOGIC: Patient does not follow any commands. Results Result Diagram: 09/28/16 0400 09/28/16 0400 Results 24 hrs Laboratory Tests Test 09/27/16 14:12 09/27/16 17:53 09/27/16 22:34 09/28/16 02:30 Bedside Glucose 130 154 131 199 Test 09/28/16 04:00 09/28/16 05:29 09/28/16 09:20 Anion Gap 25 #H Basophils # 0.0 Basophils % 0.0 Blood Urea Nitrogen 32 #H Calcium Level 6.9 L Carbon Dioxide Level 11 L Chloride Level 105 Creatinine 2.00 H Eosinophils # 0.0 Eosinophils % 0.3 Glucose Level 196 Hematocrit 32.2 L Hemoglobin 9.6 L Lymphocytes # 0.3 L Lymphocytes % 8.4 L Magnesium Level 2.3 Mean Corpuscular Hemoglobin 30.5 Mean Corpuscular Hemoglobin Concent 29.8 L Mean Corpuscular Volume 102.2 #H Mean Platelet Volume 13.9 H Monocytes # 0.1 L Monocytes % 2.4 Neutrophils # 2.9 Neutrophils % 88.3 H Nucleated Red Blood Cells # 0.0 Nucleated Red Blood Cells % 0.6 H Phosphorus Level 1.8 L Platelet Count 170 Potassium Level 3.3 L Red Blood Count 3.15 #L Red Cell Distribution Width 21.0 H Sodium Level 138 White Blood Count 3.3 #L Bedside Glucose 237 H 199 Medications Medications Current Medications Collagenase (Santyl) 1 applic DAILY TOP Last administered on 09/28/16 08:59; Admin Dose 1 APPLIC; Start 09/02/16 at 11:30 Hydralazine HCl (Apresoline) 10 mg Q4H PRN IV ELEVATED BLOOD PRESSURE Last administered on 09/25/16 10:20; Admin Dose 10 MG; Start 09/17/16 at 16:00 Metoclopramide HCl (Reglan) 5 mg Q6 IV Last administered on 09/28/16 05:33; Admin Dose 5 MG; Start 09/17/16 at 18:00 Morphine Sulfate (morphine) 2 mg Q4H PRN IV PAIN LEVEL 7-10 Last administered on 09/27/16 15:54; Admin Dose 2 MG; Start 09/18/16 at 12:00 Metoclopramide HCl (Reglan) 10 mg Q6H PRN IV .FOR GASTRIC RESIDUAL > 100 ML Last administered on 09/21/16 13:34; Admin Dose 10 MG; Start 09/20/16 at 12:30 Pantoprazole (Protonix Iv) 40 mg BID@06,18 IV Last administered on 09/28/16 05 :32; Admin Dose 40 MG; Start 09/20/16 at 18:00 Metoprolol Tartrate (Lopressor) 25 mg BID PO Last administered on 09/27/16 08: 43; Admin Dose 25 MG; Start 09/20/16 at 21:00 Docusate Sodium 100 mg 100 mg BID PRN GTB CONSTIPATION; Start 09/23/16 at 15:30 Dextrose/Sodium Chloride (D5-1/4ns) 1,000 ml @ 50 mls/hr Q20H IV Last administered on 09/27/16 14:13; Admin Dose 50 MLS/HR; Start 09/23/16 at 23:45 Diagnostic Test (Pha) 1 ea 1 ea Q4 XX Last administered on 09/28/16 09:25; Admin Dose 1 EA; Start 09/24/16 at 13:00 Total Parenteral Nutrition 1,000 ml @ 60 mls/hr [id number] IV Last administered on 09/28/16 08:57; Admin Dose 60 MLS/HR; Start 09/24/16 at 14:00 Fat Emulsion Intravenous (Liposyn Ii 20%) 250 ml @ 10.4 mls/hr Q24H IV Last administered on 09/27/16 14:13; Admin Dose 10.4 MLS/HR; Start 09/24/16 at 14:00 IV Flush (NS 10 ml) 10 ml PRN PRN IV IV PROTOCOL; Start 09/24/16 at 14:00 Methylprednisolone Sodium Succinate (Solu-Medrol) 40 mg QHS IV Last administered on 09/27/16 22:23; Admin Dose 40 MG; Start 09/25/16 at 21:00 Amiodarone HCl 200 mg 200 mg DAILY NGT Last administered on 09/27/16 08:42; Admin Dose 200 MG; Start 09/25/16 at 09:00 Norepinephrine/ Dextrose (Levophed/D5W) 500 ml @ 1.87 mls/hr TITRATE IV ; Start 09/25/16 at 17:00 Metoprolol Tartrate (Lopressor) 5 mg Q6H PRN IV IF HEART RATE ABOVE 120; Start 09/27/16 at 18:00 AMY MORAN Sep 28, 2016 12:01
--- NOTE | 2016-09-28 12:50 | CONS ---
Date/Time of Note Date/Time of Note DATE: 09/28/16 TIME: 12:49 Assessment/Plan Assessment/Plan Additional Assessment/Plan Intermittent atrial tachycardia and atrial fibrillation Frequent PACs and PVCs Preserved ejection fraction Hypotension Hematemesis Respiratory failure Encephalopathy Acute kidney injury -Heart rhythm remains stable in sinus rhythm. Potassium has been ordered, heart rate on the lower end, would DC Lopressor. Consultation Date/Type/Reason Admit Date/Time Aug 31, 2016 at 14:59 Initial Consult Date 09/02/16 Type of Consultation: cv Referring Provider: MARIO ROWE 24 HR Interval Summary Free Text/Dictation Patient seen and examined, no cardiac issues as per nursing staff Exam/Review of Systems Vital Signs Vitals Vital Signs Date Time Temp Pulse Resp B/P Pulse Ox O2 Delivery O2 Flow Rate FiO2 09/28/16 12:00 54 09/28/16 09:00 16 146/85 100 Mechanical Ventilator 09/28/16 08:00 97.9 09/28/16 05:05 30 Intake and Output 09/27/16 09/27/16 09/28/16 15:00 23:00 07:00 Intake Total 1343.6 ml 1088.2 ml 1042.8 ml Output Total 530 ml 750 ml 650 ml Balance 813.6 ml 338.2 ml 392.8 ml Exam No response to verbal stimuli, no apparent distress Neck: other (Tracheostomy) Respiratory: other (Coarse breath sounds bilaterally, no wheezing) Cardiovascular: other (S1-S2 heard), regular rate and rhythm Gastrointestinal: bowel sounds, other (No grimacing with palpation), soft Extremities: other (No edema) Results Result Diagram: 09/28/16 0400 09/28/16 0400 Results 24 hrs Laboratory Tests Test 09/27/16 14:12 09/27/16 17:53 09/27/16 22:34 09/28/16 02:30 Bedside Glucose 130 154 131 199 Test 09/28/16 04:00 09/28/16 05:29 09/28/16 09:20 Anion Gap 25 #H Basophils # 0.0 Basophils % 0.0 Blood Urea Nitrogen 32 #H Calcium Level 6.9 L Carbon Dioxide Level 11 L Chloride Level 105 Creatinine 2.00 H Eosinophils # 0.0 Eosinophils % 0.3 Glucose Level 196 Hematocrit 32.2 L Hemoglobin 9.6 L Lymphocytes # 0.3 L Lymphocytes % 8.4 L Magnesium Level 2.3 Mean Corpuscular Hemoglobin 30.5 Mean Corpuscular Hemoglobin Concent 29.8 L Mean Corpuscular Volume 102.2 #H Mean Platelet Volume 13.9 H Monocytes # 0.1 L Monocytes % 2.4 Neutrophils # 2.9 Neutrophils % 88.3 H Nucleated Red Blood Cells # 0.0 Nucleated Red Blood Cells % 0.6 H Phosphorus Level 1.8 L Platelet Count 170 Potassium Level 3.3 L Red Blood Count 3.15 #L Red Cell Distribution Width 21.0 H Sodium Level 138 White Blood Count 3.3 #L Bedside Glucose 237 H 199 Medications Medications Current Medications Collagenase (Santyl) 1 applic DAILY TOP Last administered on 09/28/16 08:59; Admin Dose 1 APPLIC; Start 09/02/16 at 11:30 Hydralazine HCl (Apresoline) 10 mg Q4H PRN IV ELEVATED BLOOD PRESSURE Last administered on 09/25/16 10:20; Admin Dose 10 MG; Start 09/17/16 at 16:00 Metoclopramide HCl (Reglan) 5 mg Q6 IV Last administered on 09/28/16 05:33; Admin Dose 5 MG; Start 09/17/16 at 18:00 Morphine Sulfate (morphine) 2 mg Q4H PRN IV PAIN LEVEL 7-10 Last administered on 09/27/16 15:54; Admin Dose 2 MG; Start 09/18/16 at 12:00 Metoclopramide HCl (Reglan) 10 mg Q6H PRN IV .FOR GASTRIC RESIDUAL > 100 ML Last administered on 09/21/16 13:34; Admin Dose 10 MG; Start 09/20/16 at 12:30 Pantoprazole (Protonix Iv) 40 mg BID@06,18 IV Last administered on 09/28/16 05 :32; Admin Dose 40 MG; Start 09/20/16 at 18:00 Metoprolol Tartrate (Lopressor) 25 mg BID PO Last administered on 09/27/16 08: 43; Admin Dose 25 MG; Start 09/20/16 at 21:00 Docusate Sodium 100 mg 100 mg BID PRN GTB CONSTIPATION; Start 09/23/16 at 15:30 Dextrose/Sodium Chloride (D5-1/4ns) 1,000 ml @ 50 mls/hr Q20H IV Last administered on 09/27/16 14:13; Admin Dose 50 MLS/HR; Start 09/23/16 at 23:45 Diagnostic Test (Pha) 1 ea 1 ea Q4 XX Last administered on 09/28/16 09:25; Admin Dose 1 EA; Start 09/24/16 at 13:00 Total Parenteral Nutrition 1,000 ml @ 60 mls/hr [id number] IV Last administered on 09/28/16 08:57; Admin Dose 60 MLS/HR; Start 09/24/16 at 14:00 Fat Emulsion Intravenous (Liposyn Ii 20%) 250 ml @ 10.4 mls/hr Q24H IV Last administered on 09/27/16 14:13; Admin Dose 10.4 MLS/HR; Start 09/24/16 at 14:00 IV Flush (NS 10 ml) 10 ml PRN PRN IV IV PROTOCOL; Start 09/24/16 at 14:00 Methylprednisolone Sodium Succinate (Solu-Medrol) 40 mg QHS IV Last administered on 09/27/16 22:23; Admin Dose 40 MG; Start 09/25/16 at 21:00 Amiodarone HCl 200 mg 200 mg DAILY NGT Last administered on 09/27/16 08:42; Admin Dose 200 MG; Start 09/25/16 at 09:00 Norepinephrine/ Dextrose (Levophed/D5W) 500 ml @ 1.87 mls/hr TITRATE IV ; Start 09/25/16 at 17:00 Metoprolol Tartrate (Lopressor) 5 mg Q6H PRN IV IF HEART RATE ABOVE 120; Start 09/27/16 at 18:00 Maynor Broderick DO Sep 28, 2016 12:50
[2016-09-28] MEDS ORDERED: POTASSIUM CHLORIDE 250 ML IVPB ONE (14:30)
[2016-09-28] MEDS: FAT EMULSION 20% 250 ML IV SCH (15:52)
[2016-09-28] MEDS: METHYLPREDNISOLONE 40 MG INJ IV SCH (21:03)
--- NOTE | 2016-09-28 21:22 | PN ---
DATE: HISTORY OF PRESENT ILLNESS: The patient is in the intensive care unit. There was a consideration f or a small-bowel obstruction. He is status post tracheostomy. He is on ventilator, status post per cutaneous endoscopic gastrostomy placement. The CAT scan and other studies showed evidence of possi ble small-bowel obstruction; however, small bowel series was done yesterday which showed evidence of no small-bowel obstruction. The contrast has gone into the colon all the way through. According t o the nurse, he has had multiple bowel movements. PHYSICAL EXAMINATION: On examination, patient is intubated, status post tracheostomy. ABDOMEN: Shows evidence of a soft abdomen, flat abdomen. In fact, I irrigated to the G-tube. The fluid goes into the stomach easily and no leakage noted at the gastrostomy site. LABORATORY WORKUP: WBC count is 3300, hemoglobin 9.6, platelet count 170,000. Potassium 3.3, BUN is 32, creatinine 2.0. CLINICAL IMPRESSION: It appears that patient had ileus, which has been resolved. PLAN: At this time, recommend starting G-tube feeding . Dictated By: KATELYN SILVERMAN MD NC/NTS Conf#: [id number] DID#: [id number] CC: MARLA AKBAR MD;*EndCC*
--- NOTE | 2016-09-28 21:59 | CONS ---
Date/Time of Note Date/Time of Note DATE: 09/28/16 TIME: 21:51 Assessment/Plan Assessment/Plan Chief Complaint/Hosp Course With increased Urine Vol, Somewhat decreasing Creat renal fn may be on the verge of reversal. Problems: Additional Assessment/Plan BUN/Creat continues to improve Note WC & SK down Will replace K Give one dose of lasix for leg edema which may be worse due to low alb Consultation Date/Type/Reason Admit Date/Time Aug 31, 2016 at 14:59 Initial Consult Date 09/02/16 Type of Consultation: renal Referring Provider: MARIO ROWE 24 HR Interval Summary Free Text/Dictation Pt looks more responsive Subjective hx not possible: pt non-verbal Constitutional: improved Exam/Review of Systems Vital Signs Vitals Vital Signs Date Time Temp Pulse Resp B/P Pulse Ox O2 Delivery O2 Flow Rate FiO2 09/28/16 21:00 62 15 135/80 100 Mechanical Ventilator 09/28/16 20:07 30 09/28/16 20:00 97.8 Intake and Output 09/27/16 09/27/16 09/28/16 15:00 23:00 07:00 Intake Total 1343.6 ml 1088.2 ml 1042.8 ml Output Total 530 ml 750 ml 650 ml Balance 813.6 ml 338.2 ml 392.8 ml Exam Constitutional: alert, oriented, well developed Psych: nl mood/affect, no complaints Head: atraumatic, normocephalic Eyes: EOMI, PERRL, nl conjunctiva, nl lids, nl sclera ENMT: nl external ears & nose, nl lips & teeth, nl nasal mucosa & septum Neck: non-tender, other (contractures), supple Respiratory: clear to auscultation, normal air movement Cardiovascular: nl pulses, regular rate and rhythm Gastrointestinal: nl liver, spleen, non-tender, soft Musculoskeletal: nl extremities to inspection, nl gait and stance Extremities: other (contracture) Skin: nl turgor, No rash or lesions Lymph: nl lymph nodes Results Result Diagram: 09/28/16 0400 09/28/16 0400 Results 24 hrs Laboratory Tests Test 09/27/16 22:34 09/28/16 02:30 09/28/16 04:00 09/28/16 05:29 Bedside Glucose 131 199 237 H Anion Gap 25 #H Basophils # 0.0 Basophils % 0.0 Blood Urea Nitrogen 32 #H Calcium Level 6.9 L Carbon Dioxide Level 11 L Chloride Level 105 Creatinine 2.00 H Eosinophils # 0.0 Eosinophils % 0.3 Glucose Level 196 Hematocrit 32.2 L Hemoglobin 9.6 L Lymphocytes # 0.3 L Lymphocytes % 8.4 L Magnesium Level 2.3 Mean Corpuscular Hemoglobin 30.5 Mean Corpuscular Hemoglobin Concent 29.8 L Mean Corpuscular Volume 102.2 #H Mean Platelet Volume 13.9 H Monocytes # 0.1 L Monocytes % 2.4 Neutrophils # 2.9 Neutrophils % 88.3 H Nucleated Red Blood Cells # 0.0 Nucleated Red Blood Cells % 0.6 H Phosphorus Level 1.8 L Platelet Count 170 Potassium Level 3.3 L Red Blood Count 3.15 #L Red Cell Distribution Width 21.0 H Sodium Level 138 White Blood Count 3.3 #L Test 09/28/16 09:20 09/28/16 13:03 09/28/16 17:57 09/28/16 21:07 Bedside Glucose 199 142 147 136 Medications Medications Current Medications Collagenase (Santyl) 1 applic DAILY TOP Last administered on 09/28/16 08:59; Admin Dose 1 APPLIC; Start 09/02/16 at 11:30 Hydralazine HCl (Apresoline) 10 mg Q4H PRN IV ELEVATED BLOOD PRESSURE Last administered on 09/25/16 10:20; Admin Dose 10 MG; Start 09/17/16 at 16:00 Metoclopramide HCl (Reglan) 5 mg Q6 IV Last administered on 09/28/16 18:17; Admin Dose 5 MG; Start 09/17/16 at 18:00 Morphine Sulfate (morphine) 2 mg Q4H PRN IV PAIN LEVEL 7-10 Last administered on 09/27/16 15:54; Admin Dose 2 MG; Start 09/18/16 at 12:00 Metoclopramide HCl (Reglan) 10 mg Q6H PRN IV .FOR GASTRIC RESIDUAL > 100 ML Last administered on 09/21/16 13:34; Admin Dose 10 MG; Start 09/20/16 at 12:30 Pantoprazole (Protonix Iv) 40 mg BID@,18 IV Last administered on 09/28/16 18 :17; Admin Dose 40 MG; Start 09/20/16 at 18:00 Docusate Sodium (Colace Liquid Cup) 100 mg BID PRN GTB CONSTIPATION; Start at 15:30 Diagnostic Test (Pha) 1 ea 1 ea Q4 XX Last administered on 09/28/16 21:08; Admin Dose 1 EA; Start 09/24/16 at 13:00 Total Parenteral Nutrition 1,000 ml @ 60 mls/hr [id number] IV Last administered on 09/28/16 17:53; Admin Dose 60 MLS/HR; Start 09/24/16 at 14:00 Fat Emulsion Intravenous (Liposyn Ii 20%) 250 ml @ 10.4 mls/hr Q24H IV Last administered on 09/28/16 15:52; Admin Dose 10.4 MLS/HR; Start 09/24/16 at 14:00 IV Flush (NS 10 ml) 10 ml PRN PRN IV IV PROTOCOL; Start 09/24/16 at 14:00 Methylprednisolone Sodium Succinate (Solu-Medrol) 40 mg QHS IV Last administered on 09/28/16 21:03; Admin Dose 40 MG; Start 09/25/16 at 21:00 Amiodarone HCl 200 mg 200 mg DAILY NGT Last administered on 09/27/16 08:42; Admin Dose 200 MG; Start 09/25/16 at 09:00 Norepinephrine/ Dextrose (Levophed/D5W) 500 ml @ 1.87 mls/hr TITRATE IV ; Start 09/25/16 at 17:00 Metoprolol Tartrate (Lopressor) 5 mg Q6H PRN IV IF HEART RATE ABOVE 120; Start 09/27/16 at 18:00 JAMES PIERSON MD Sep 28, 2016 21:58
[2016-09-28] MEDS ORDERED: FUROSEMIDE 20 MG INJ IV ONE (22:00)
[2016-09-28] MEDS ORDERED: POTASSIUM CHLORIDE (SR) 10 MEQ TAB PO ONE (22:00)
--- NOTE | 2016-09-28 23:48 | PN ---
Date/Time of Note Date/Time of Note DATE: 09/28/16 TIME: 23:46 Assessment/Plan Lines/Catheters IV Catheter Type (from [facility]): PICC Line Chaudhari in Place (from [facility]): Yes Assessment/Plan Chief Complaint/Hosp Course 1. Distended stomach with negative SBFT. -nutrition as tolerated 2. Gastric ulcer -ppi 3. Anemia -monitor 4. Functional quadriplegia -off loading -nutritional optimization 5. Decubitus ulcerations -off loading -nutritional optimization -vit c -local care -debridement prn 6. Chronic encephalopathy -as above 7. Dysphagia s/p feeding tube on tube feeds 8. VDRF -pulmonary toilette and ventilator management 9. Renal insufficiency -judicious fluid management -avoid nephrotoxic agents Thank you, Problems: Subjective 24 Hr Interval Summary SBFT negative for obstruction. No f/c. No cough. No sz. No vomiting. No bloating. No rash. Min hard stool in bag. No bleeding. No joint swelling. Exam/Review of Systems Vital Signs Vitals Vital Signs Date Time Temp Pulse Resp B/P Pulse Ox O2 Delivery O2 Flow Rate FiO2 09/28/16 23:00 58 13 143/83 100 Mechanical Ventilator 09/28/16 21:20 30 09/28/16 20:00 97.8 Intake and Output 09/27/16 09/27/16 09/28/16 15:00 23:00 07:00 Intake Total 1343.6 ml 1088.2 ml 1042.8 ml Output Total 530 ml 750 ml 650 ml Balance 813.6 ml 338.2 ml 392.8 ml Exam Free Text/Dictation Constitutional: non-verbal, No oriented Psych: anxiety, No nl mood/affect Head: normocephalic Eyes: nl conjunctiva, No icteric ENMT: nl external ears & nose Neck: non-tender, No jvd Respiratory: normal air movement, No congested cough, No labored breathing Cardiovascular: regular rate and rhythm, No edema Gastrointestinal: non-tender, other (colostomy with min stool), soft, No distended, No rebound or guarding Musculoskeletal: No joint tenderness, No nl extremities to inspection, No nl gait and stance Extremities: No calf tenderness, No cyanosis Neurological: No nl mental status, No nl speech, No nl strength Skin: rash or lesions (decubitus ulcers), No diaphoresis, No nl turgor Lymph: nl lymph nodes Results Result Diagram: 09/28/1639909/28/16399 JOSE ANGEL MATTHEWS MD Sep 28, 2016 23:48
[2016-09-29] VITALS (33 sets, daily range): BP systolic 116–161; BP diastolic 77–105; PULSE 51–84; RESP 13–25
[2016-09-29] MEDS: ACCUCHECK XX SCH ×6 (01:54→20:32)
[2016-09-29 05:00] LABS: ADD SCAN DIFF NO
[2016-09-29 05:04] LABS: ABNORMAL IP MESSAGE 1; HEMATOCRIT 31.3 % (42.0-52.0); HEMOGLOBIN 10.3 g/dl (14.0-18.0); LYMPHOCYTES # 0.4 10^3/ul (0.8-2.9); LYMPHOCYTES % 7.2 % (15.0-51.0); MEAN CORPUSCULAR HEMOGLOBIN 25.9 pg (29.0-33.0); MEAN CORPUSCULAR HGB CONC 32.9 g/dl (32.0-37.0); MEAN CORPUSCULAR VOLUME 78.6 fl (82.0-101.0); MEAN PLATELET VOLUME 13.6 fl (7.4-10.4); MONOCYTE # 0.1 10^3/ul (0.3-0.9); MONOCYTES % 2.5 % (0.0-11.0); NEUTROPHILS % 90.1 % (39.0-77.0); PLATELET COUNT 247 10^3/UL (140-415); RED BLOOD COUNT 3.98 10^6/ul (4.70-6.10); RED CELL DISTRIBUTION WIDTH 19.5 % (11.5-14.5); WHITE BLOOD COUNT 5.5 10^3/ul (4.8-10.8)
[2016-09-29 05:34] LABS: POTASSIUM 3.9 mmol/L (3.5-5.1)
[2016-09-29 05:37] LABS: CREATININE 1.78 mg/dl (0.61-1.24)
[2016-09-29 05:38] LABS: CALCIUM 8.3 mg/dl (8.4-10.2)
[2016-09-29] MEDS: METOCLOPRAMIDE 10 MG INJ IV SCH ×3 (06:33→17:24)
[2016-09-29] MEDS: PANTOPRAZOLE 40 MG INJ IV SCH ×2 (06:33→17:24)
[2016-09-29] MEDS: COLLAGENASE 30 GM TUBE TOP SCH (08:32)
[2016-09-29] MEDS: AMIODARONE 200 MG TAB NGT SCH (08:32)
[2016-09-29] MEDS: TOBRAMYCIN/0.25NS 300 MG/5 ML INHAL NEB SCH ×2 (08:57→19:52)
--- NOTE | 2016-09-29 10:19 | CONS ---
Date/Time of Note Date/Time of Note DATE: 09/29/16 TIME: 10:17 Assessment/Plan Assessment/Plan Additional Assessment/Plan Ventilator settings; assist control of 16, tidal volume 500, PEEP of 5, 30% FiO2. Assessment recommendations; 1. Patient admitted with sepsis and pneumonia with improvement. 2. History of severe anoxic encephalopathy patient remains totally unresponsive. 3. History of renal insufficiency. 4. Ileus, with interval resolution. Patient resumed on tube feeding. 5. Prior history of colostomy. Continue current supportive care. Overall prognosis is poor. Patient will transfer to rehab facility. Consultation Date/Type/Reason Admit Date/Time Aug 31, 2016 at 14:59 Initial Consult Date 09/01/16 Type of Consultation: Pulmonary/critical care Referring Provider: MARIO ROWE 24 HR Interval Summary Free Text/Dictation Patient condition remains unchanged. Remains completely unresponsive which is his underlying mental status due to anoxic encephalopathy. Remains ventilator dependent. Has remained hemodynamically stable. General examination; elderly male, on ventilator via tracheostomy unresponsive and currently in no distress. Exam/Review of Systems Vital Signs Vitals Vital Signs Date Time Temp Pulse Resp B/P Pulse Ox O2 Delivery O2 Flow Rate FiO2 09/29/16 09:40 75 24 100 30 09/29/16 09:00 138/88 Mechanical Ventilator 09/29/16 07:00 97.3 Intake and Output 09/28/16 09/28/16 09/29/16 15:00 23:00 07:00 Intake Total 303.3 ml 1623.1 ml 733.2 ml Output Total 500 ml 1900 ml 900 ml Balance -196.7 ml -276.9 ml -166.8 ml Exam HEENT examination; supple neck, patient is edentulous. Tracheostomy in place with clean insertion site. No thyromegaly. No neck bruits. No lymphadenopathy. Chest examination; diminished but clear breath sounds bilaterally. S1-S2 audible, no murmurs. Regular rhythm. Abdomen examination; soft, colostomy in place. G-tube in place. Abdomen is nondistended, bowel sounds audible. Next Extremity examination; no peripheral edema. [employer] examination; patient remains unresponsive. Results Result Diagram: 09/29/16 0330 09/29/16 0330 Results 24 hrs Laboratory Tests Test 09/28/16 13:03 09/28/16 17:57 09/28/16 21:07 09/29/16 01:49 Bedside Glucose 142 147 136 214 Test 09/29/16 03:30 09/29/16 06:32 09/29/16 08:30 Anion Gap 15 # Basophils # 0.0 Basophils % 0.0 Blood Urea Nitrogen 50 H Calcium Level 8.3 L Carbon Dioxide Level 22 # Chloride Level 105 Creatinine 1.78 H Eosinophils # 0.0 Eosinophils % 0.0 Glucose Level 154 Hematocrit 31.3 L Hemoglobin 10.3 L Lymphocytes # 0.4 L Lymphocytes % 7.2 L Mean Corpuscular Hemoglobin 25.9 L Mean Corpuscular Hemoglobin Concent 32.9 Mean Corpuscular Volume 78.6 #L Mean Platelet Volume 13.6 H Monocytes # 0.1 L Monocytes % 2.5 Neutrophils # 5.0 Neutrophils % 90.1 H Nucleated Red Blood Cells # 0.0 Nucleated Red Blood Cells % 0.0 Platelet Count 247 # Potassium Level 3.9 Red Blood Count 3.98 #L Red Cell Distribution Width 19.5 H Sodium Level 138 White Blood Count 5.5 # Bedside Glucose 148 124 Medications Medications Current Medications Collagenase (Santyl) 1 applic DAILY TOP Last administered on 09/29/16 08:32; Admin Dose 1 APPLIC; Start 09/02/16 at 11:30 Hydralazine HCl (Apresoline) 10 mg Q4H PRN IV ELEVATED BLOOD PRESSURE Last administered on 09/25/16 10:20; Admin Dose 10 MG; Start 09/17/16 at 16:00 Metoclopramide HCl (Reglan) 5 mg Q6 IV Last administered on 09/29/16 06:33; Admin Dose 5 MG; Start 09/17/16 at 18:00 Morphine Sulfate (morphine) 2 mg Q4H PRN IV PAIN LEVEL 7-10 Last administered on 09/27/16 15:54; Admin Dose 2 MG; Start 09/18/16 at 12:00 Metoclopramide HCl (Reglan) 10 mg Q6H PRN IV .FOR GASTRIC RESIDUAL > 100 ML Last administered on 09/21/16 13:34; Admin Dose 10 MG; Start 09/20/16 at 12:30 Pantoprazole (Protonix Iv) 40 mg BID@ IV Last administered on 09/29/16 06: 33; Admin Dose 40 MG; Start 09/20/16 at 18:00 Docusate Sodium (Colace Liquid Cup) 100 mg BID PRN GTB CONSTIPATION; Start at 15:30 Diagnostic Test (Pha) 1 ea 1 ea Q4 XX Last administered on 09/29/16 08:33; Admin Dose 1 EA; Start 09/24/16 at 13:00 Total Parenteral Nutrition 1,000 ml @ 60 mls/hr [id number] IV Last administered on 09/28/16 17:53; Admin Dose 60 MLS/HR; Start 09/24/16 at 14:00 Fat Emulsion Intravenous (Liposyn Ii 20%) 250 ml @ 10.4 mls/hr Q24H IV Last administered on 09/28/16 15:52; Admin Dose 10.4 MLS/HR; Start 09/24/16 at 14:00 IV Flush (NS 10 ml) 10 ml PRN PRN IV IV PROTOCOL; Start 09/24/16 at 14:00 Amiodarone HCl 200 mg 200 mg DAILY NGT Last administered on 09/29/16 08:32; Admin Dose 200 MG; Start 09/25/16 at 09:00 Norepinephrine/ Dextrose (Levophed/D5W) 500 ml @ 1.87 mls/hr TITRATE IV ; Start 09/25/16 at 17:00 Metoprolol Tartrate (Lopressor) 5 mg Q6H PRN IV IF HEART RATE ABOVE 120; Start 09/27/16 at 18:00 Methylprednisolone Sodium Succinate (Solu-Medrol) 20 mg QHS IV ; Start 09/29/16 at 21:00 SHAAN BUTT Sep 29, 2016 10:19
--- NOTE | 2016-09-29 11:32 | CONS ---
Date/Time of Note Date/Time of Note DATE: 09/29/16 TIME: 11:29 Assessment/Plan Assessment/Plan Chief Complaint/Hosp Course assessment/impression - h/o sepsis - acute on chronic respiratory failure - h/o SBO/ileus. 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 the wound culture grew carbapenemase producing kleb, enterococci and pseudo - h/o dysphagia s/p EGD and new G tube placement 09/15/2016 - on TPN - h/o infection of wound of RLE due to pseudomonas. 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 - h/o thrush - HCV infection - colostomy status - moderate to severe protein calorie malnutrition - diarrhea - s/p Vanco (09/02/16-09/12/16; 09/20/16-09/22/16) for MRSA and levofloxacin (09/05/16- 09/12/16) intermediate activity against carbapenemase producing kleb; mupirocin for MRSA decolonization (09/02/16-09/14/16) recommendations: - continue tobramycin neb (09/23/2016-) through 10/04/2016 the critical care time I took to care for this Pt today was from 1040 to 1110 Problems: Consultation Date/Type/Reason Admit Date/Time Aug 31, 2016 at 14:59 Initial Consult Date 09/01/16 Type of Consultation: ID Referring Provider: MARIO ROWE 24 HR Interval Summary Subjective hx not possible: pt non-verbal, pt critical, pt critical status Exam/Review of Systems Vital Signs Vitals Vital Signs Date Time Temp Pulse Resp B/P Pulse Ox O2 Delivery O2 Flow Rate FiO2 09/29/16 11:00 61 14 140/86 100 Mechanical Ventilator 09/29/16 09:40 30 09/29/16 07:00 97.3 Intake and Output 09/28/16 09/28/16 09/29/16 15:00 23:00 07:00 Intake Total 303.3 ml 1623.1 ml 733.2 ml Output Total 500 ml 1900 ml 900 ml Balance -196.7 ml -276.9 ml -166.8 ml Exam Constitutional: frail, non-verbal Head: other (temporal wasting b/l) Eyes: nl conjunctiva, nl lids ENMT: nl external ears & nose, nl nasal mucosa & septum Neck: other (trach) Respiratory: diminished breath sounds Cardiovascular: nl pulses, regular rate and rhythm Gastrointestinal: non-tender, other (GT ostomy and RT), soft Genitourinary - Male: other (DC) Extremities: No edema Neurological: confused, unresponsive Skin: laceration (lateral RLE, non-purulent) Results Result Diagram: 09/29/16 0330 09/29/16 0330 Results 24 hrs Laboratory Tests Test 09/28/16 13:03 09/28/16 17:57 09/28/16 21:07 09/29/16 01:49 Bedside Glucose 142 147 136 214 Test 09/29/16 03:30 09/29/16 06:32 09/29/16 08:30 Anion Gap 15 # Basophils # 0.0 Basophils % 0.0 Blood Urea Nitrogen 50 H Calcium Level 8.3 L Carbon Dioxide Level 22 # Chloride Level 105 Creatinine 1.78 H Eosinophils # 0.0 Eosinophils % 0.0 Glucose Level 154 Hematocrit 31.3 L Hemoglobin 10.3 L Lymphocytes # 0.4 L Lymphocytes % 7.2 L Mean Corpuscular Hemoglobin 25.9 L Mean Corpuscular Hemoglobin Concent 32.9 Mean Corpuscular Volume 78.6 #L Mean Platelet Volume 13.6 H Monocytes # 0.1 L Monocytes % 2.5 Neutrophils # 5.0 Neutrophils % 90.1 H Nucleated Red Blood Cells # 0.0 Nucleated Red Blood Cells % 0.0 Platelet Count 247 # Potassium Level 3.9 Red Blood Count 3.98 #L Red Cell Distribution Width 19.5 H Sodium Level 138 White Blood Count 5.5 # Bedside Glucose 148 124 Medications Medications Current Medications Collagenase (Santyl) 1 applic DAILY TOP Last administered on 09/29/16 08:32; Admin Dose 1 APPLIC; Start 09/02/16 at 11:30 Hydralazine HCl (Apresoline) 10 mg Q4H PRN IV ELEVATED BLOOD PRESSURE Last administered on 09/25/16 10:20; Admin Dose 10 MG; Start 09/17/16 at 16:00 Metoclopramide HCl (Reglan) 5 mg Q6 IV Last administered on 09/29/16 06:33; Admin Dose 5 MG; Start 09/17/16 at 18:00 Morphine Sulfate (morphine) 2 mg Q4H PRN IV PAIN LEVEL 7-10 Last administered on 09/27/16 15:54; Admin Dose 2 MG; Start 09/18/16 at 12:00 Metoclopramide HCl (Reglan) 10 mg Q6H PRN IV .FOR GASTRIC RESIDUAL > 100 ML Last administered on 09/21/16 13:34; Admin Dose 10 MG; Start 09/20/16 at 12:30 Pantoprazole (Protonix Iv) 40 mg BID@06,18 IV Last administered on 09/29/16 06: 33; Admin Dose 40 MG; Start 09/20/16 at 18:00 Docusate Sodium (Colace Liquid Cup) 100 mg BID PRN GTB CONSTIPATION; Start at 15:30 Diagnostic Test (Pha) 1 ea 1 ea Q4 XX Last administered on 09/29/16 08:33; Admin Dose 1 EA; Start 09/24/16 at 13:00 Total Parenteral Nutrition 1,000 ml @ 60 mls/hr [id number] IV Last administered on 09/28/16 17:53; Admin Dose 60 MLS/HR; Start 09/24/16 at 14:00 Fat Emulsion Intravenous (Liposyn Ii 20%) 250 ml @ 10.4 mls/hr Q24H IV Last administered on 09/28/16 15:52; Admin Dose 10.4 MLS/HR; Start 09/24/16 at 14:00 IV Flush (NS 10 ml) 10 ml PRN PRN IV IV PROTOCOL; Start 09/24/16 at 14:00 Amiodarone HCl 200 mg 200 mg DAILY NGT Last administered on 09/29/16 08:32; Admin Dose 200 MG; Start 09/25/16 at 09:00 Norepinephrine/ Dextrose (Levophed/D5W) 500 ml @ 1.87 mls/hr TITRATE IV ; Start 09/25/16 at 17:00 Metoprolol Tartrate (Lopressor) 5 mg Q6H PRN IV IF HEART RATE ABOVE 120; Start 09/27/16 at 18:00 Methylprednisolone Sodium Succinate (Solu-Medrol) 20 mg QHS IV ; Start 09/29/16 at 21:00 LIZZY HECK M.D. Sep 29, 2016 11:32
--- NOTE | 2016-09-29 13:27 | CONS ---
Date/Time of Note Date/Time of Note DATE: 09/29/16 TIME: 13:27 Assessment/Plan Assessment/Plan Additional Assessment/Plan 71 yo Male with 1) VDRF 2) RAYNA Non Oliguric Improving 3) Anemia, Stable 4) S/p Sepsis 5) SBO 6) HTN 7) On TPN Renal function stable and improving Non oliguric Cont current treatment and plan Cont monitor UO, Electrolytes and renal function daily Consultation Date/Type/Reason Admit Date/Time Aug 31, 2016 at 14:59 Initial Consult Date 09/02/16 Type of Consultation: Nephrology Referring Provider: MARIO ROWE 24 HR Interval Summary Free Text/Dictation Improving UO, No events reported, Remains Intubated Subjective hx not possible: pt critical status Constitutional: requiring O2 Exam/Review of Systems Vital Signs Vitals Vital Signs Date Time Temp Pulse Resp B/P Pulse Ox O2 Delivery O2 Flow Rate FiO2 09/29/16 13:00 78 17 156/101 98 Mechanical Ventilator 09/29/16 12:00 30 09/29/16 07:00 97.3 Intake and Output 09/28/16 09/28/16 09/29/16 15:00 23:00 07:00 Intake Total 303.3 ml 1623.1 ml 733.2 ml Output Total 500 ml 1900 ml 900 ml Balance -196.7 ml -276.9 ml -166.8 ml Exam ENMT: intubated, mucosa pink and moist Neck: No jvd Respiratory: crackles/rales, No diminished breath sounds Cardiovascular: regular rate and rhythm, No edema Gastrointestinal: soft, No distended Extremities: No pitting pedal edema Neurological: other (sedated) Skin: nl turgor, No diaphoresis Results Result Diagram: 09/29/16 0330 09/29/16 0330 Results 24 hrs Laboratory Tests Test 09/28/16 17:57 09/28/16 21:07 09/29/16 01:49 09/29/16 03:30 Bedside Glucose 147 136 214 Anion Gap 15 # Basophils # 0.0 Basophils % 0.0 Blood Urea Nitrogen 50 H Calcium Level 8.3 L Carbon Dioxide Level 22 # Chloride Level 105 Creatinine 1.78 H Eosinophils # 0.0 Eosinophils % 0.0 Glucose Level 154 Hematocrit 31.3 L Hemoglobin 10.3 L Lymphocytes # 0.4 L Lymphocytes % 7.2 L Mean Corpuscular Hemoglobin 25.9 L Mean Corpuscular Hemoglobin Concent 32.9 Mean Corpuscular Volume 78.6 #L Mean Platelet Volume 13.6 H Monocytes # 0.1 L Monocytes % 2.5 Neutrophils # 5.0 Neutrophils % 90.1 H Nucleated Red Blood Cells # 0.0 Nucleated Red Blood Cells % 0.0 Platelet Count 247 # Potassium Level 3.9 Red Blood Count 3.98 #L Red Cell Distribution Width 19.5 H Sodium Level 138 White Blood Count 5.5 # Test 09/29/16 06:32 09/29/16 08:30 09/29/16 12:54 Bedside Glucose 148 124 108 Medications Medications Current Medications Collagenase (Santyl) 1 applic DAILY TOP Last administered on 09/29/16 08:32; Admin Dose 1 APPLIC; Start 09/02/16 at 11:30 Hydralazine HCl (Apresoline) 10 mg Q4H PRN IV ELEVATED BLOOD PRESSURE Last administered on 09/25/16 10:20; Admin Dose 10 MG; Start 09/17/16 at 16:00 Metoclopramide HCl (Reglan) 5 mg Q6 IV Last administered on 09/29/16 12:55; Admin Dose 5 MG; Start 09/17/16 at 18:00 Morphine Sulfate (morphine) 2 mg Q4H PRN IV PAIN LEVEL 7-10 Last administered on 09/27/16 15:54; Admin Dose 2 MG; Start 09/18/16 at 12:00 Metoclopramide HCl (Reglan) 10 mg Q6H PRN IV .FOR GASTRIC RESIDUAL > 100 ML Last administered on 09/21/16 13:34; Admin Dose 10 MG; Start 09/20/16 at 12:30 Pantoprazole (Protonix Iv) 40 mg BID@06,18 IV Last administered on 09/29/16 06: 33; Admin Dose 40 MG; Start 09/20/16 at 18:00 Docusate Sodium (Colace Liquid Cup) 100 mg BID PRN GTB CONSTIPATION; Start at 15:30 Diagnostic Test (Pha) 1 ea 1 ea Q4 XX Last administered on 09/29/16 12:55; Admin Dose 1 EA; Start 09/24/16 at 13:00 Total Parenteral Nutrition 1,000 ml @ 60 mls/hr [id number] IV Last administered on 09/28/16 17:53; Admin Dose 60 MLS/HR; Start 09/24/16 at 14:00 Fat Emulsion Intravenous (Liposyn Ii 20%) 250 ml @ 10.4 mls/hr Q24H IV Last administered on 09/28/16 15:52; Admin Dose 10.4 MLS/HR; Start 09/24/16 at 14:00 IV Flush (NS 10 ml) 10 ml PRN PRN IV IV PROTOCOL; Start 09/24/16 at 14:00 Amiodarone HCl 200 mg 200 mg DAILY NGT Last administered on 09/29/16 08:32; Admin Dose 200 MG; Start 09/25/16 at 09:00 Norepinephrine/ Dextrose (Levophed/D5W) 500 ml @ 1.87 mls/hr TITRATE IV ; Start 09/25/16 at 17:00 Metoprolol Tartrate (Lopressor) 5 mg Q6H PRN IV IF HEART RATE ABOVE 120; Start 09/27/16 at 18:00 Methylprednisolone Sodium Succinate (Solu-Medrol) 20 mg QHS IV ; Start 09/29/16 at 21:00 ESTHER MAYORGA MD Sep 29, 2016 13:27
--- NOTE | 2016-09-29 13:48 | CONS ---
Date/Time of Note Date/Time of Note DATE: 09/29/16 TIME: 13:46 Assessment/Plan Assessment/Plan Additional Assessment/Plan Intermittent atrial tachycardia and atrial fibrillation Frequent PACs and PVCs Preserved ejection fraction Hypotension Hematemesis Respiratory failure Encephalopathy Acute kidney injury -Heart rhythm remains in sinus rhythm. Brief episode of hypertension but otherwise blood pressure stable. Will order as needed hydralazine. Consultation Date/Type/Reason Admit Date/Time Aug 31, 2016 at 14:59 Initial Consult Date 09/02/16 Type of Consultation: cv Referring Provider: MARIO ROWE 24 HR Interval Summary Free Text/Dictation Patient seen and examined. No cardiac issues as per nursing staff Exam/Review of Systems Vital Signs Vitals Vital Signs Date Time Temp Pulse Resp B/P Pulse Ox O2 Delivery O2 Flow Rate FiO2 09/29/16 13:00 78 17 156/101 98 Mechanical Ventilator 09/29/16 12:00 30 09/29/16 07:00 97.3 Intake and Output 09/28/16 09/28/16 09/29/16 15:00 23:00 07:00 Intake Total 303.3 ml 1623.1 ml 733.2 ml Output Total 500 ml 1900 ml 900 ml Balance -196.7 ml -276.9 ml -166.8 ml Exam No response to verbal stimuli, no apparent distress ENMT: other Neck: other (Tracheostomy) Respiratory: other (Coarse breath sounds bilaterally, no wheezing) Cardiovascular: other (S1-S2 heard), regular rate and rhythm Gastrointestinal: bowel sounds, other (No grimacing with palpation), soft Extremities: other (Trace edema) Results Result Diagram: 09/29/16 0330 09/29/16 0330 Results 24 hrs Laboratory Tests Test 09/28/16 17:57 09/28/16 21:07 09/29/16 01:49 09/29/16 03:30 Bedside Glucose 147 136 214 Anion Gap 15 # Basophils # 0.0 Basophils % 0.0 Blood Urea Nitrogen 50 H Calcium Level 8.3 L Carbon Dioxide Level 22 # Chloride Level 105 Creatinine 1.78 H Eosinophils # 0.0 Eosinophils % 0.0 Glucose Level 154 Hematocrit 31.3 L Hemoglobin 10.3 L Lymphocytes # 0.4 L Lymphocytes % 7.2 L Mean Corpuscular Hemoglobin 25.9 L Mean Corpuscular Hemoglobin Concent 32.9 Mean Corpuscular Volume 78.6 #L Mean Platelet Volume 13.6 H Monocytes # 0.1 L Monocytes % 2.5 Neutrophils # 5.0 Neutrophils % 90.1 H Nucleated Red Blood Cells # 0.0 Nucleated Red Blood Cells % 0.0 Platelet Count 247 # Potassium Level 3.9 Red Blood Count 3.98 #L Red Cell Distribution Width 19.5 H Sodium Level 138 White Blood Count 5.5 # Test 09/29/16 06:32 09/29/16 08:30 09/29/16 12:54 Bedside Glucose 148 124 108 Medications Medications Current Medications Collagenase (Santyl) 1 applic DAILY TOP Last administered on 09/29/16 08:32; Admin Dose 1 APPLIC; Start 09/02/16 at 11:30 Hydralazine HCl (Apresoline) 10 mg Q4H PRN IV ELEVATED BLOOD PRESSURE Last administered on 09/25/16 10:20; Admin Dose 10 MG; Start 09/17/16 at 16:00 Metoclopramide HCl (Reglan) 5 mg Q6 IV Last administered on 09/29/16 12:55; Admin Dose 5 MG; Start 09/17/16 at 18:00 Morphine Sulfate (morphine) 2 mg Q4H PRN IV PAIN LEVEL 7-10 Last administered on 09/27/16 15:54; Admin Dose 2 MG; Start 09/18/16 at 12:00 Metoclopramide HCl (Reglan) 10 mg Q6H PRN IV .FOR GASTRIC RESIDUAL > 100 ML Last administered on 09/21/16 13:34; Admin Dose 10 MG; Start 09/20/16 at 12:30 Pantoprazole (Protonix Iv) 40 mg BID@06,18 IV Last administered on 09/29/16 06: 33; Admin Dose 40 MG; Start 09/20/16 at 18:00 Docusate Sodium (Colace Liquid Cup) 100 mg BID PRN GTB CONSTIPATION; Start at 15:30 Diagnostic Test (Pha) 1 ea 1 ea Q4 XX Last administered on 09/29/16 12:55; Admin Dose 1 EA; Start 09/24/16 at 13:00 Total Parenteral Nutrition 1,000 ml @ 60 mls/hr [id number] IV Last administered on 09/28/16 17:53; Admin Dose 60 MLS/HR; Start 09/24/16 at 14:00 Fat Emulsion Intravenous (Liposyn Ii 20%) 250 ml @ 10.4 mls/hr Q24H IV Last administered on 09/28/16 15:52; Admin Dose 10.4 MLS/HR; Start 09/24/16 at 14:00 IV Flush (NS 10 ml) 10 ml PRN PRN IV IV PROTOCOL; Start 09/24/16 at 14:00 Amiodarone HCl 200 mg 200 mg DAILY NGT Last administered on 09/29/16 08:32; Admin Dose 200 MG; Start 09/25/16 at 09:00 Norepinephrine/ Dextrose (Levophed/D5W) 500 ml @ 1.87 mls/hr TITRATE IV ; Start 09/25/16 at 17:00 Metoprolol Tartrate (Lopressor) 5 mg Q6H PRN IV IF HEART RATE ABOVE 120; Start 09/27/16 at 18:00 Methylprednisolone Sodium Succinate (Solu-Medrol) 20 mg QHS IV ; Start 09/29/16 at 21:00 Maynor Broderick DO Sep 29, 2016 13:48
[2016-09-29] MEDS: FAT EMULSION 20% 250 ML IV SCH (14:00)
[2016-09-29] MEDS ORDERED: hydrALAzine 20 MG INJ IV PRN (14:00)
--- NOTE | 2016-09-29 14:15 | PN ---
Date/Time of Note Date/Time of Note DATE: 09/29/16 TIME: 14:10 Assessment/Plan VTE Prophylaxis VTE Prophylaxis Intervention: SCD's Lines/Catheters IV Catheter Type (from [facility]): PICC Line Central line still needed: Yes Urinary Cath still in place: Yes Reason Cath still needed: urinary retention Assessment/Plan Chief Complaint/Hosp Course ASSESSMENT AND PLAN: - SBO, resolved. Restarted on G-tube feeding. - S/p systemic inflammatory response syndrome with leukocytosis due to possible aspiration. - RAYNA 2 to dehydration and SIRS. Dr Miramontes is following in nephrology consultation. - Dysphagia, s/p J-tube placement. - S/P upper gastrointestinal bleeding secondary to gastrostomy site ulcer disease. Continue Protonix. Dr. Pryor is following the patient in gastroenterology consultation. - Anemia 2 to GI bleed, monitor H&H, transfuse as needed. - Dehydration secondary to vomiting, resolved. - S/p sepsis with Staph bacteremia [address] Kitty yoo is following in ID consultation. Continue abx per ID. 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 - Ventilator-dependent respiratory failure with tracheostomy. Dr. Morrison is following from pulmonology standpoint. Continue bronchodilators and pulmonary toilet. - Chronic obstructive pulmonary disease. - Chronic Chaudhari catheter. - Colostomy - Hypertension, metoprolol and hydralazine as needed. - Bedbound status. - Acute kidney injury, resolved. - MRSA UTI , s/p treatment. - MRSA of nares. Status post treatment. - Intermittent atrial tachycardia. Dr. Broderick is is following in cardiology consultation. Continue sequential compression device for deep venous thrombosis prophylaxis and Protonix for peptic ulcer disease prophylaxis. Further recommendations based on clinical course. Plan of care discussed with Dr. Meeks. Problems: Subjective 24 Hr Interval Summary Free Text/Dictation Patient is restarted on GT feeding at 30 cc/hr, TPN is held due to hyperglycemia , pt remains afebrile, on vent support. Exam/Review of Systems Vital Signs Vitals Vital Signs Date Time Temp Pulse Resp B/P Pulse Ox O2 Delivery O2 Flow Rate FiO2 09/29/16 13:00 78 17 156/101 98 Mechanical Ventilator 09/29/16 12:00 30 09/29/16 07:00 97.3 Intake and Output 09/28/16 09/28/16 09/29/16 15:00 23:00 07:00 Intake Total 303.3 ml 1623.1 ml 733.2 ml Output Total 500 ml 1900 ml 900 ml Balance -196.7 ml -276.9 ml -166.8 ml Exam GENERAL: Well-developed, cachectic gentleman currently obtunded on ventilator support via tracheostomy. HEENT: Pupils equal, round, reactive to light and accommodation. NECK: Supple, no cervical lymphadenopathy, no thyromegaly. Tracheostomy the base of the neck with small amount of secretions. LUNGS: Rhonchi bilaterally, slightly diminished at the bases. CARDIOVASCULAR: Normal S1, S2. No murmurs, gallops, clicks, rubs noted. ABDOMEN: Flat, soft, nondistended, nontender. Bowel sounds present. Patient has left lower quadrant colostomy with pink, moist stoma. G-tube. GENITOURINARY: The patient also has a Chaudhari catheter. EXTREMITIES: No edema, clubbing, cyanosis. Pulses equal bilaterally 2+. Lower extremities contracted. SKIN: There is no rash, petechiae noted. Sacral decubitus ulcer. NEUROLOGIC: Patient does not follow any commands. Results Result Diagram: 09/29/16 0330 09/29/16 0330 Results 24 hrs Laboratory Tests Test 09/28/16 17:57 09/28/16 21:07 09/29/16 01:49 09/29/16 03:30 Bedside Glucose 147 136 214 Anion Gap 15 # Basophils # 0.0 Basophils % 0.0 Blood Urea Nitrogen 50 H Calcium Level 8.3 L Carbon Dioxide Level 22 # Chloride Level 105 Creatinine 1.78 H Eosinophils # 0.0 Eosinophils % 0.0 Glucose Level 154 Hematocrit 31.3 L Hemoglobin 10.3 L Lymphocytes # 0.4 L Lymphocytes % 7.2 L Mean Corpuscular Hemoglobin 25.9 L Mean Corpuscular Hemoglobin Concent 32.9 Mean Corpuscular Volume 78.6 #L Mean Platelet Volume 13.6 H Monocytes # 0.1 L Monocytes % 2.5 Neutrophils # 5.0 Neutrophils % 90.1 H Nucleated Red Blood Cells # 0.0 Nucleated Red Blood Cells % 0.0 Platelet Count 247 # Potassium Level 3.9 Red Blood Count 3.98 #L Red Cell Distribution Width 19.5 H Sodium Level 138 White Blood Count 5.5 # Test 09/29/16 06:32 09/29/16 08:30 09/29/16 12:54 Bedside Glucose 148 124 108 Medications Medications Current Medications Collagenase (Santyl) 1 applic DAILY TOP Last administered on 09/29/16 08:32; Admin Dose 1 APPLIC; Start 09/02/16 at 11:30 Hydralazine HCl (Apresoline) 10 mg Q4H PRN IV ELEVATED BLOOD PRESSURE Last administered on 09/25/16 10:20; Admin Dose 10 MG; Start 09/17/16 at 16:00 Metoclopramide HCl (Reglan) 5 mg Q6 IV Last administered on 09/29/16 12:55; Admin Dose 5 MG; Start 09/17/16 at 18:00 Morphine Sulfate (morphine) 2 mg Q4H PRN IV PAIN LEVEL 7-10 Last administered on 09/27/16 15:54; Admin Dose 2 MG; Start 09/18/16 at 12:00 Metoclopramide HCl (Reglan) 10 mg Q6H PRN IV .FOR GASTRIC RESIDUAL > 100 ML Last administered on 09/21/16 13:34; Admin Dose 10 MG; Start 09/20/16 at 12:30 Pantoprazole (Protonix Iv) 40 mg BID@06,18 IV Last administered on 09/29/16 06: 33; Admin Dose 40 MG; Start 09/20/16 at 18:00 Docusate Sodium (Colace Liquid Cup) 100 mg BID PRN GTB CONSTIPATION; Start at 15:30 Diagnostic Test (Pha) 1 ea 1 ea Q4 XX Last administered on 09/29/16 12:55; Admin Dose 1 EA; Start 09/24/16 at 13:00 Total Parenteral Nutrition 1,000 ml @ 60 mls/hr [id number] IV Last administered on 09/28/16 17:53; Admin Dose 60 MLS/HR; Start 09/24/16 at 14:00 Fat Emulsion Intravenous (Liposyn Ii 20%) 250 ml @ 10.4 mls/hr Q24H IV Last administered on 09/28/16 15:52; Admin Dose 10.4 MLS/HR; Start 09/24/16 at 14:00 IV Flush (NS 10 ml) 10 ml PRN PRN IV IV PROTOCOL; Start 09/24/16 at 14:00 Amiodarone HCl 200 mg 200 mg DAILY NGT Last administered on 09/29/16t 08:32; Admin Dose 200 MG; Start 09/25/16 at 09:00 Norepinephrine/ Dextrose (Levophed/D5W) 500 ml @ 1.87 mls/hr TITRATE IV ; Start 09/25/16 at 17:00 Metoprolol Tartrate (Lopressor) 5 mg Q6H PRN IV IF HEART RATE ABOVE 120; Start 09/27/16 at 18:00 Methylprednisolone Sodium Succinate (Solu-Medrol) 20 mg QHS IV ; Start 09/29/16 at 21:00 Hydralazine HCl (Apresoline) 5 mg Q6H PRN IV sbp>150; Start 09/29/16 at 14:00 AMY MORAN Sep 29, 2016 14:15
[2016-09-29] MEDS: TPN 1,000 ML IV SCH (17:24)
--- NOTE | 2016-09-29 18:06 | PN ---
Date/Time of Note Date/Time of Note DATE: 09/29/16 TIME: 18:02 Assessment/Plan VTE Prophylaxis VTE Prophylaxis Intervention: SCD's Lines/Catheters IV Catheter Type (from Nrsg): PICC Line Central line still needed: Yes Urinary Cath still in place: Yes Reason Cath still needed: urinary retention (per pmd) Assessment/Plan Chief Complaint/Hosp Course #1 status post removal of the gastrostomy #2 no bleeding noted from the gastrostomy #3 hemoglobin is stable number for continue nasogastric suction pl Recommend continue nasogastric suction antibiotic therapy Proton pump inhibitor therapy Problems: Subjective 24 Hr Interval Summary Free Text/Dictation pt nion verbal being fed through peg Exam/Review of Systems Vital Signs Vitals oe lethargic abd softr tolerating peg feeding tpn on hold Vital Signs Date Time Temp Pulse Resp B/P Pulse Ox O2 Delivery O2 Flow Rate FiO2 09/29/16 17:20 57 16 100 30 09/29/16 17:00 142/81 Mechanical Ventilator 09/29/16 14:00 97.5 Intake and Output 09/28/16 09/28/16 09/29/16 15:00 23:00 07:00 Intake Total 303.3 ml 1623.1 ml 733.2 ml Output Total 500 ml 1900 ml 900 ml Balance -196.7 ml -276.9 ml -166.8 ml Exam toletrating gt feeding tpn on hold Results Result Diagram: 09/29/16 0330 09/29/16 0330 Results 24 hrs Laboratory Tests Test 09/28/16 21:07 09/29/16 01:49 09/29/16 03:30 09/29/16 06:32 Bedside Glucose 136 214 148 Anion Gap 15 # Basophils # 0.0 Basophils % 0.0 Blood Urea Nitrogen 50 H Calcium Level 8.3 L Carbon Dioxide Level 22 # Chloride Level 105 Creatinine 1.78 H Eosinophils # 0.0 Eosinophils % 0.0 Glucose Level 154 Hematocrit 31.3 L Hemoglobin 10.3 L Lymphocytes # 0.4 L Lymphocytes % 7.2 L Mean Corpuscular Hemoglobin 25.9 L Mean Corpuscular Hemoglobin Concent 32.9 Mean Corpuscular Volume 78.6 #L Mean Platelet Volume 13.6 H Monocytes # 0.1 L Monocytes % 2.5 Neutrophils # 5.0 Neutrophils % 90.1 H Nucleated Red Blood Cells # 0.0 Nucleated Red Blood Cells % 0.0 Platelet Count 247 # Potassium Level 3.9 Red Blood Count 3.98 #L Red Cell Distribution Width 19.5 H Sodium Level 138 White Blood Count 5.5 # Test 09/29/16 08:30 09/29/16 12:54 09/29/16 17:23 Bedside Glucose 124 108 95 Medications Medications Current Medications Collagenase (Santyl) 1 applic DAILY TOP Last administered on 09/29/16 08:32; Admin Dose 1 APPLIC; Start 09/02/16 at 11:30 Hydralazine HCl (Apresoline) 10 mg Q4H PRN IV ELEVATED BLOOD PRESSURE Last administered on 09/25/16 10:20; Admin Dose 10 MG; Start 09/17/16 at 16:00 Metoclopramide HCl (Reglan) 5 mg Q6 IV Last administered on 09/29/16 17:24; Admin Dose 5 MG; Start 09/17/16 at 18:00 Morphine Sulfate (morphine) 2 mg Q4H PRN IV PAIN LEVEL 7-10 Last administered on 09/27/16 15:54; Admin Dose 2 MG; Start 09/18/16 at 12:00 Metoclopramide HCl (Reglan) 10 mg Q6H PRN IV .FOR GASTRIC RESIDUAL > 100 ML Last administered on 09/21/16 13:34; Admin Dose 10 MG; Start 09/20/16 at 12:30 Pantoprazole (Protonix Iv) 40 mg BID@06,18 IV Last administered on 09/29/16 17: 24; Admin Dose 40 MG; Start 09/20/16 at 18:00 Docusate Sodium (Colace Liquid Cup) 100 mg BID PRN GTB CONSTIPATION; Start at 15:30 Diagnostic Test (Pha) 1 ea 1 ea Q4 XX Last administered on 09/29/16 17:23; Admin Dose 1 EA; Start 09/24/16 at 13:00 Total Parenteral Nutrition 1,000 ml @ 60 mls/hr [id number] IV Last administered on 09/28/16 17:53; Admin Dose 60 MLS/HR; Start 09/24/16 at 14:00 Fat Emulsion Intravenous (Liposyn Ii 20%) 250 ml @ 10.4 mls/hr Q24H IV Last administered on 09/28/16 15:52; Admin Dose 10.4 MLS/HR; Start 09/24/16 at 14:00 IV Flush (NS 10 ml) 10 ml PRN PRN IV IV PROTOCOL; Start 09/24/16 at 14:00 Amiodarone HCl 200 mg 200 mg DAILY NGT Last administered on 09/29/16 08:32; Admin Dose 200 MG; Start 09/25/16 at 09:00 Norepinephrine/ Dextrose (Levophed/D5W) 500 ml @ 1.87 mls/hr TITRATE IV ; Start 09/25/16 at 17:00 Metoprolol Tartrate (Lopressor) 5 mg Q6H PRN IV IF HEART RATE ABOVE 120; Start 09/27/16 at 18:00 Methylprednisolone Sodium Succinate (Solu-Medrol) 20 mg QHS IV ; Start 09/29/16 at 21:00 Hydralazine HCl (Apresoline) 5 mg Q6H PRN IV sbp>150; Start 09/29/16 at 14:00 KATELYN SILVERMAN MD Sep 29, 2016 18:06
[2016-09-29] MEDS ORDERED: METHYLPREDNISOLONE 40 MG INJ IV SCH (21:00)
[2016-09-30] VITALS (28 sets, daily range): BP systolic 128–184; BP diastolic 77–111; PULSE 51–114; RESP 15–25
[2016-09-30] MEDS: METOCLOPRAMIDE 10 MG INJ IV SCH ×4 (00:10→17:51)
[2016-09-30] MEDS: ACCUCHECK XX SCH ×5 (00:22→17:19)
[2016-09-30 04:51] LABS: ADD SCAN DIFF NO
[2016-09-30 05:02] LABS: HEMATOCRIT 27.9 % (42.0-52.0); HEMOGLOBIN 9.4 g/dl (14.0-18.0); LYMPHOCYTES # 0.6 10^3/ul (0.8-2.9); LYMPHOCYTES % 11.5 % (15.0-51.0); MEAN CORPUSCULAR HEMOGLOBIN 26.6 pg (29.0-33.0); MEAN CORPUSCULAR HGB CONC 33.7 g/dl (32.0-37.0); MEAN PLATELET VOLUME 13.4 fl (7.4-10.4); MONOCYTE # 0.3 10^3/ul (0.3-0.9); MONOCYTES % 5.3 % (0.0-11.0); NEUTROPHIL # 4.6 10^3/ul (1.6-7.5); PLATELET COUNT 253 10^3/UL (140-415); RED BLOOD COUNT 3.53 10^6/ul (4.70-6.10); RED CELL DISTRIBUTION WIDTH 19.2 % (11.5-14.5); WHITE BLOOD COUNT 5.5 10^3/ul (4.8-10.8)
[2016-09-30 05:09] LABS: POTASSIUM 4.1 mmol/L (3.5-5.1)
[2016-09-30 05:12] LABS: CREATININE 1.73 mg/dl (0.61-1.24)
[2016-09-30 05:13] LABS: CALCIUM 8.2 mg/dl (8.4-10.2)
[2016-09-30] MEDS: PANTOPRAZOLE 40 MG INJ IV SCH ×2 (05:51→17:51)
--- NOTE | 2016-09-30 07:05 | CONS ---
Date/Time of Note Date/Time of Note DATE: 09/30/16 TIME: 07:04 Assessment/Plan Assessment/Plan Chief Complaint/Hosp Course assessment/impression - h/o sepsis - acute on chronic respiratory failure - h/o SBO/ileus. 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 the wound culture grew carbapenemase producing kleb, enterococci and pseudo - h/o dysphagia s/p EGD and new G tube placement 09/15/2016 - on TPN - h/o infection of wound of RLE due to pseudomonas. 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 - h/o thrush - HCV infection - colostomy status - moderate to severe protein calorie malnutrition - diarrhea - s/p Vanco (09/02/16-09/12/16; 09/20/16-09/22/16) for MRSA and levofloxacin (09/05/16- 09/12/16) intermediate activity against carbapenemase producing kleb; mupirocin for MRSA decolonization (09/02/16-09/14/16) recommendations: - continue tobramycin neb (09/23/2016-) through 10/04/2016 the critical care time I took to care for this Pt today was from 0630 to 0700 Problems: Consultation Date/Type/Reason Admit Date/Time Aug 31, 2016 at 14:59 Initial Consult Date 09/01/16 Type of Consultation: ID Referring Provider: MARIO ROWE 24 HR Interval Summary Subjective hx not possible: pt non-verbal, pt critical, pt critical status Exam/Review of Systems Vital Signs Vitals Vital Signs Date Time Temp Pulse Resp B/P Pulse Ox O2 Delivery O2 Flow Rate FiO2 09/30/16 06:00 81 20 151/99 100 Mechanical Ventilator 09/30/16 05:47 30 09/30/16 04:00 98.3 Intake and Output 09/29/16 09/29/16 09/30/16 15:00 23:00 07:00 Intake Total 240 ml 240 ml 30 ml Output Total 345 ml 350 ml 45 ml Balance -105 ml -110 ml -15 ml Exam Constitutional: frail Psych: confusion Head: other (temporal atrophy) Eyes: nl conjunctiva, nl lids ENMT: nl external ears & nose Neck: other (trach) Respiratory: diminished breath sounds Cardiovascular: nl pulses, regular rate and rhythm, No irregular rhythm Gastrointestinal: other (GT colostomy RT), soft, No distended, No mass Genitourinary - Male: other (FC) Extremities: No edema Neurological: confused, lethargic, unresponsive Skin: rash or lesions (RLE, non-purulent) Results Result Diagram: 09/30/16 0430 09/30/16 0430 Results 24 hrs Laboratory Tests Test 09/29/16 08:30 09/29/16 12:54 09/29/16 17:23 09/29/16 20:31 Bedside Glucose 124 108 95 94 Test 09/30/16 00:09 09/30/16 04:30 09/30/16 05:50 Bedside Glucose 143 130 Anion Gap 12 Basophils # 0.0 Basophils % 0.0 Blood Urea Nitrogen 48 H Calcium Level 8.2 L Carbon Dioxide Level 25 Chloride Level 106 Creatinine 1.73 H Eosinophils # 0.0 Eosinophils % 0.0 Glucose Level 142 Hematocrit 27.9 L Hemoglobin 9.4 L Lymphocytes # 0.6 L Lymphocytes % 11.5 L Mean Corpuscular Hemoglobin 26.6 L Mean Corpuscular Hemoglobin Concent 33.7 Mean Corpuscular Volume 79.0 L Mean Platelet Volume 13.4 H Monocytes # 0.3 Monocytes % 5.3 Neutrophils # 4.6 Neutrophils % 83.0 H Nucleated Red Blood Cells # 0.0 Nucleated Red Blood Cells % 0.0 Platelet Count 253 Potassium Level 4.1 Red Blood Count 3.53 L Red Cell Distribution Width 19.2 H Sodium Level 139 White Blood Count 5.5 Medications Medications Current Medications Collagenase (Santyl) 1 applic DAILY TOP Last administered on 09/29/16t 08:32; Admin Dose 1 APPLIC; Start 09/02/16 at 11:30 Hydralazine HCl (Apresoline) 10 mg Q4H PRN IV ELEVATED BLOOD PRESSURE Last administered on 09/25/16 10:20; Admin Dose 10 MG; Start 09/17/16 at 16:00 Metoclopramide HCl (Reglan) 5 mg Q6 IV Last administered on 09/30/16 05:51; Admin Dose 5 MG; Start 09/17/16 at 18:00 Morphine Sulfate (morphine) 2 mg Q4H PRN IV PAIN LEVEL 7-10 Last administered on 09/27/16 15:54; Admin Dose 2 MG; Start 09/18/16 at 12:00 Metoclopramide HCl (Reglan) 10 mg Q6H PRN IV .FOR GASTRIC RESIDUAL > 100 ML Last administered on 09/21/16 13:34; Admin Dose 10 MG; Start 09/20/16 at 12:30 Pantoprazole (Protonix Iv) 40 mg BID@06,18 IV Last administered on 09/30/16 05: 51; Admin Dose 40 MG; Start 09/20/16 at 18:00 Docusate Sodium (Colace Liquid Cup) 100 mg BID PRN GTB CONSTIPATION; Start at 15:30 Diagnostic Test (Pha) 1 ea 1 ea Q4 XX Last administered on 09/30/16 05:51; Admin Dose 1 EA; Start 09/24/16 at 13:00 Total Parenteral Nutrition 1,000 ml @ 60 mls/hr [id number] IV Last administered on 09/28/16 17:53; Admin Dose 60 MLS/HR; Start 09/24/16 at 14:00 Fat Emulsion Intravenous (Liposyn Ii 20%) 250 ml @ 10.4 mls/hr Q24H IV Last administered on 09/28/16 15:52; Admin Dose 10.4 MLS/HR; Start 09/24/16 at 14:00 IV Flush (NS 10 ml) 10 ml PRN PRN IV IV PROTOCOL; Start 09/24/16 at 14:00 Amiodarone HCl 200 mg 200 mg DAILY NGT Last administered on 09/29/16 08:32; Admin Dose 200 MG; Start 09/25/16 at 09:00 Norepinephrine/ Dextrose (Levophed/D5W) 500 ml @ 1.87 mls/hr TITRATE IV ; Start 09/25/16 at 17:00 Metoprolol Tartrate (Lopressor) 5 mg Q6H PRN IV IF HEART RATE ABOVE 120; Start 09/27/16 at 18:00 Methylprednisolone Sodium Succinate (Solu-Medrol) 20 mg QHS IV Last administered on 09/29/16t 20:32; Admin Dose 20 MG; Start 09/29/16 at 21:00 Hydralazine HCl (Apresoline) 5 mg Q6H PRN IV sbp>150; Start 09/29/16 at 14:00 LIZZY HECK M.D. Sep 30, 2016 07:05
[2016-09-30] MEDS: TOBRAMYCIN/0.25NS 300 MG/5 ML INHAL NEB SCH ×2 (08:59→19:17)
--- NOTE | 2016-09-30 09:03 | CONS ---
Date/Time of Note Date/Time of Note DATE: 09/30/16 TIME: 08:59 Assessment/Plan Assessment/Plan Additional Assessment/Plan Ventilator settings; AC of 16, tidal volume 500, PEEP of 5, 30% FiO2. Assessment and recommendations; next 1. Patient admitted for severe pneumonia and sepsis with interval resolution. 2. History of severe anoxic encephalopathy patient remains ventilator dependent. 3. Ileus with interval resolution. 4. Remote history of colostomy. 5. History of G-tube placement. 6. Chronic renal insufficiency. Continue current treatment. Patient awaiting transfer to a rehab facility. Overall prognosis remains poor. Consultation Date/Type/Reason Admit Date/Time Aug 31, 2016 at 14:59 Initial Consult Date 09/01/16 Type of Consultation: Pulmonary/critical care Referring Provider: MARIO ROWE 24 HR Interval Summary Free Text/Dictation Patient's condition remains unchanged. Remains totally unresponsive on account of underlying severe anoxic encephalopathy. Patient however has remained hemodynamically stable. General examination; elderly male, on ventilator via tracheostomy currently in no distress. Exam/Review of Systems Vital Signs Vitals Vital Signs Date Time Temp Pulse Resp B/P Pulse Ox O2 Delivery O2 Flow Rate FiO2 09/30/16 08:00 90 09/30/16 08:00 97.7 21 181/111 94 Mechanical Ventilator 09/30/16 05:47 30 Intake and Output 09/29/16 09/29/16 09/30/16 15:00 23:00 07:00 Intake Total 240 ml 240 ml 240 ml Output Total 345 ml 350 ml 670 ml Balance -105 ml -110 ml -430 ml Exam HEENT examination; supple neck, no JVD. No lymphadenopathy. Midline trachea. No thyromegaly. Patient is edentulous. Tracheostomy in place. Pupils are small bilaterally. No neck masses. Chest examination; diminished breath sounds bilaterally. No added sounds. S1- S2 audible, no murmurs. Regular rhythm. Abdomen examination; soft, colostomy in place. G-tube in place. Abdomen is soft, bowel sounds audible. Nondistended and no organomegaly. Extremity examination; no peripheral edema. [employer] examination; patient remains completely unresponsive. Results Result Diagram: 09/30/16 0430 09/30/16 0430 Results 24 hrs Laboratory Tests Test 09/29/16 12:54 09/29/16 17:23 09/29/16 20:31 09/30/16 00:09 Bedside Glucose 108 95 94 143 Test 09/30/16 04:30 09/30/16 05:50 Anion Gap 12 Basophils # 0.0 Basophils % 0.0 Blood Urea Nitrogen 48 H Calcium Level 8.2 L Carbon Dioxide Level 25 Chloride Level 106 Creatinine 1.73 H Eosinophils # 0.0 Eosinophils % 0.0 Glucose Level 142 Hematocrit 27.9 L Hemoglobin 9.4 L Lymphocytes # 0.6 L Lymphocytes % 11.5 L Mean Corpuscular Hemoglobin 26.6 L Mean Corpuscular Hemoglobin Concent 33.7 Mean Corpuscular Volume 79.0 L Mean Platelet Volume 13.4 H Monocytes # 0.3 Monocytes % 5.3 Neutrophils # 4.6 Neutrophils % 83.0 H Nucleated Red Blood Cells # 0.0 Nucleated Red Blood Cells % 0.0 Platelet Count 253 Potassium Level 4.1 Red Blood Count 3.53 L Red Cell Distribution Width 19.2 H Sodium Level 139 White Blood Count 5.5 Bedside Glucose 130 Medications Medications Current Medications Collagenase (Santyl) 1 applic DAILY TOP Last administered on 09/29/16 08:32; Admin Dose 1 APPLIC; Start 09/02/16 at 11:30 Hydralazine HCl (Apresoline) 10 mg Q4H PRN IV ELEVATED BLOOD PRESSURE Last administered on 09/25/16 10:20; Admin Dose 10 MG; Start 09/17/16 at 16:00 Metoclopramide HCl (Reglan) 5 mg Q6 IV Last administered on 09/30/16 05:51; Admin Dose 5 MG; Start 09/17/16 at 18:00 Morphine Sulfate (morphine) 2 mg Q4H PRN IV PAIN LEVEL 7-10 Last administered on 09/27/16 15:54; Admin Dose 2 MG; Start 09/18/16 at 12:00 Metoclopramide HCl (Reglan) 10 mg Q6H PRN IV .FOR GASTRIC RESIDUAL > 100 ML Last administered on 09/21/16 13:34; Admin Dose 10 MG; Start 09/20/16 at 12:30 Pantoprazole (Protonix Iv) 40 mg BID@06,18 IV Last administered on 09/30/16 05: 51; Admin Dose 40 MG; Start 09/20/16 at 18:00 Docusate Sodium (Colace Liquid Cup) 100 mg BID PRN GTB CONSTIPATION; Start at 15:30 Diagnostic Test (Pha) 1 ea 1 ea Q4 XX Last administered on 09/30/16 05:51; Admin Dose 1 EA; Start 09/24/16 at 13:00 Total Parenteral Nutrition 1,000 ml @ 60 mls/hr [id number] IV Last administered on 09/28/16 17:53; Admin Dose 60 MLS/HR; Start 09/24/16 at 14:00 Fat Emulsion Intravenous (Liposyn Ii 20%) 250 ml @ 10.4 mls/hr Q24H IV Last administered on 09/28/16 15:52; Admin Dose 10.4 MLS/HR; Start 09/24/16 at 14:00 IV Flush (NS 10 ml) 10 ml PRN PRN IV IV PROTOCOL; Start 09/24/16 at 14:00 Amiodarone HCl 200 mg 200 mg DAILY NGT Last administered on 09/29/16 08:32; Admin Dose 200 MG; Start 09/25/16 at 09:00 Norepinephrine/ Dextrose (Levophed/D5W) 500 ml @ 1.87 mls/hr TITRATE IV ; Start 09/25/16 at 17:00 Metoprolol Tartrate (Lopressor) 5 mg Q6H PRN IV IF HEART RATE ABOVE 120; Start 09/27/16 at 18:00 Methylprednisolone Sodium Succinate (Solu-Medrol) 20 mg QHS IV Last administered on 09/29/16 20:32; Admin Dose 20 MG; Start 09/29/16 at 21:00 Hydralazine HCl (Apresoline) 5 mg Q6H PRN IV sbp>150; Start 09/29/16 at 14:00 SHAAN BUTT Sep 30, 2016 09:02
[2016-09-30] MEDS: AMIODARONE 200 MG TAB NGT SCH (09:28)
[2016-09-30] MEDS: COLLAGENASE 30 GM TUBE TOP SCH (09:28)
[2016-09-30] MEDS: TPN 1,000 ML IV SCH (09:29)
--- NOTE | 2016-09-30 09:29 | PN ---
Date/Time of Note Date/Time of Note DATE: 09/30/16 TIME: 09:24 Assessment/Plan VTE Prophylaxis VTE Prophylaxis Intervention: SCD's Lines/Catheters IV Catheter Type (from [facility]): PICC Line Urinary Cath still in place: Yes Assessment/Plan Assessment/Plan - SBO, resolved. Restarted on G-tube feeding. - S/p systemic inflammatory response syndrome with leukocytosis due to possible aspiration. - RAYNA 2 to dehydration and SIRS. Dr Miramontes is following in nephrology consultation. - Dysphagia, s/p J-tube placement. - S/P upper gastrointestinal bleeding secondary to gastrostomy site ulcer disease. Continue Protonix. Dr. Pryor is following the patient in gastroenterology consultation. - Anemia 2 to GI bleed, monitor H&H, transfuse as needed. - Dehydration secondary to vomiting, resolved. - S/p sepsis with Staph bacteremia [address] Kitty yoo is following in ID consultation. Continue abx per ID. 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 - Ventilator-dependent respiratory failure with tracheostomy. Dr. Morrison is following from pulmonology standpoint. Continue bronchodilators and pulmonary toilet. - Chronic obstructive pulmonary disease. - Chronic Chaudhari catheter. - Colostomy - Hypertension, metoprolol and hydralazine as needed. - Bedbound status. - Acute kidney injury, resolved. - HD - tracheostomy plan - MRSA UTI , s/p treatment. - MRSA of nares. Status post treatment. - Intermittent atrial tachycardia. Dr. Broderick is is following in cardiology consultation. Continue sequential compression device for deep venous thrombosis prophylaxis and Protonix for peptic ulcer disease prophylaxis. Further recommendations based on clinical course. Total critical time spent is 35 mins. Plan of care discussed with Dr. Meeks. Subjective 24 Hr Interval Summary Free Text/Dictation NAD, seems comfortable. remains on control vent setting- plan for trach per staff. Orally intubated, afebrile. SBP- 181- pump failure per staff. better now - sbp- 152. No GI bleed noted.dw staff Constitutional: requiring IVF, requiring O2 Exam/Review of Systems Vital Signs Vitals Vital Signs Date Time Temp Pulse Resp B/P Pulse Ox O2 Delivery O2 Flow Rate FiO2 09/30/16 08:00 90 09/30/16 08:00 97.7 21 181/111 94 Mechanical Ventilator 09/30/16 08:00 30 Intake and Output 09/29/16 09/29/16 09/30/16 15:00 23:00 07:00 Intake Total 240 ml 240 ml 240 ml Output Total 345 ml 350 ml 670 ml Balance -105 ml -110 ml -430 ml Exam Constitutional: frail, non-verbal Psych: nl mood/affect Eyes: nl sclera ENMT: nl external ears & nose Neck: non-tender Respiratory: diminished breath sounds Cardiovascular: nl pulses Gastrointestinal: non-tender, soft Musculoskeletal: muscle weakness Extremities: normal pulses Neurological: unresponsive Skin: other Lymph: nontender Results Result Diagram: 09/30/16 0430 09/30/16 0430 Results 24 hrs Laboratory Tests Test 09/29/16 12:54 09/29/16 17:23 09/29/16 20:31 09/30/16 00:09 Bedside Glucose 108 95 94 143 Test 09/30/16 04:30 09/30/16 05:50 Anion Gap 12 Basophils # 0.0 Basophils % 0.0 Blood Urea Nitrogen 48 H Calcium Level 8.2 L Carbon Dioxide Level 25 Chloride Level 106 Creatinine 1.73 H Eosinophils # 0.0 Eosinophils % 0.0 Glucose Level 142 Hematocrit 27.9 L Hemoglobin 9.4 L Lymphocytes # 0.6 L Lymphocytes % 11.5 L Mean Corpuscular Hemoglobin 26.6 L Mean Corpuscular Hemoglobin Concent 33.7 Mean Corpuscular Volume 79.0 L Mean Platelet Volume 13.4 H Monocytes # 0.3 Monocytes % 5.3 Neutrophils # 4.6 Neutrophils % 83.0 H Nucleated Red Blood Cells # 0.0 Nucleated Red Blood Cells % 0.0 Platelet Count 253 Potassium Level 4.1 Red Blood Count 3.53 L Red Cell Distribution Width 19.2 H Sodium Level 139 White Blood Count 5.5 Bedside Glucose 130 Medications Medications Current Medications Collagenase (Santyl) 1 applic DAILY TOP Last administered on 09/29/16 08:32; Admin Dose 1 APPLIC; Start 09/02/16 at 11:30 Hydralazine HCl (Apresoline) 10 mg Q4H PRN IV ELEVATED BLOOD PRESSURE Last administered on 09/25/16 10:20; Admin Dose 10 MG; Start 09/17/16 at 16:00 Metoclopramide HCl (Reglan) 5 mg Q6 IV Last administered on 09/30/16 05:51; Admin Dose 5 MG; Start 09/17/16 at 18:00 Morphine Sulfate (morphine) 2 mg Q4H PRN IV PAIN LEVEL 7-10 Last administered on 09/27/16 15:54; Admin Dose 2 MG; Start 09/18/16 at 12:00 Metoclopramide HCl (Reglan) 10 mg Q6H PRN IV .FOR GASTRIC RESIDUAL > 100 ML Last administered on 09/21/16 13:34; Admin Dose 10 MG; Start 09/20/16 at 12:30 Pantoprazole (Protonix Iv) 40 mg BID@06,18 IV Last administered on 09/30/16 05: 51; Admin Dose 40 MG; Start 09/20/16 at 18:00 Docusate Sodium (Colace Liquid Cup) 100 mg BID PRN GTB CONSTIPATION; Start at 15:30 Diagnostic Test (Pha) 1 ea 1 ea Q4 XX Last administered on 09/30/16 05:51; Admin Dose 1 EA; Start 09/24/16 at 13:00 Total Parenteral Nutrition 1,000 ml @ 60 mls/hr [id number] IV Last administered on 09/28/16 17:53; Admin Dose 60 MLS/HR; Start 09/24/16 at 14:00 Fat Emulsion Intravenous (Liposyn Ii 20%) 250 ml @ 10.4 mls/hr Q24H IV Last administered on 09/28/16 15:52; Admin Dose 10.4 MLS/HR; Start 09/24/16 at 14:00 IV Flush (NS 10 ml) 10 ml PRN PRN IV IV PROTOCOL; Start 09/24/16 at 14:00 Amiodarone HCl 200 mg 200 mg DAILY NGT Last administered on 09/29/16 08:32; Admin Dose 200 MG; Start 09/25/16 at 09:00 Norepinephrine/ Dextrose (Levophed/D5W) 500 ml @ 1.87 mls/hr TITRATE IV ; Start 09/25/16 at 17:00 Metoprolol Tartrate (Lopressor) 5 mg Q6H PRN IV IF HEART RATE ABOVE 120; Start 09/27/16 at 18:00 Methylprednisolone Sodium Succinate (Solu-Medrol) 20 mg QHS IV Last administered on 3/1/17at 20:32; Admin Dose 20 MG; Start 09/29/16 at 21:00 Hydralazine HCl (Apresoline) 5 mg Q6H PRN IV sbp>150; Start 09/29/16 at 14:00 MARIO ROWE Sep 30, 2016 09:29
[2016-09-30] MEDS ORDERED: ALTEPLASE (CATHFLO) 2 MG INJ CATHETER PRN (10:00)
--- NOTE | 2016-09-30 12:19 | PN ---
Date/Time of Note Date/Time of Note DATE: 09/30/16 TIME: 12:13 Assessment/Plan VTE Prophylaxis VTE Prophylaxis Intervention: other (pcp ) Lines/Catheters IV Catheter Type (from Nrs): PICC Line Central line still needed: No (per pcp) Urinary Cath still in place: Yes Reason Cath still needed: other (indicate) (per pcp) Assessment/Plan Chief Complaint/Hosp Course #1 status post removal of the gastrostomy #2 no bleeding noted from the gastrostomy #3 hemoglobin is stable number for continue nasogastric suction pl Recommend continue nasogastric suction antibiotic therapy Proton pump inhibitor therapy Problems: Assessment/Plan tolerating gt feeding no gi bleeding hb stable Subjective 24 Hr Interval Summary Free Text/Dictation pt non verbal Exam/Review of Systems Vital Signs Vitals Vital Signs Date Time Temp Pulse Resp B/P Pulse Ox O2 Delivery O2 Flow Rate FiO2 09/30/16 11:00 63 17 150/97 97 Mechanical Ventilator 09/30/16 08:00 30 09/30/16 08:00 97.7 Intake and Output 09/29/16 09/29/16 09/30/16 15:00 23:00 07:00 Intake Total 240 ml 240 ml 240 ml Output Total 345 ml 350 ml 670 ml Balance -105 ml -110 ml -430 ml Exam pt lethargic non verbal abd soft g tube vfeeding in progress labs noted Results Result Diagram: 09/30/16 0430 09/30/16 0430 Results 24 hrs Laboratory Tests Test 09/29/16 12:54 09/29/16 17:23 09/29/16 20:31 09/30/16 00:09 Bedside Glucose 108 95 94 143 Test 09/30/16 04:30 09/30/16 05:50 09/30/16 09:38 Anion Gap 12 Basophils # 0.0 Basophils % 0.0 Blood Urea Nitrogen 48 H Calcium Level 8.2 L Carbon Dioxide Level 25 Chloride Level 106 Creatinine 1.73 H Eosinophils # 0.0 Eosinophils % 0.0 Glucose Level 142 Hematocrit 27.9 L Hemoglobin 9.4 L Lymphocytes # 0.6 L Lymphocytes % 11.5 L Mean Corpuscular Hemoglobin 26.6 L Mean Corpuscular Hemoglobin Concent 33.7 Mean Corpuscular Volume 79.0 L Mean Platelet Volume 13.4 H Monocytes # 0.3 Monocytes % 5.3 Neutrophils # 4.6 Neutrophils % 83.0 H Nucleated Red Blood Cells # 0.0 Nucleated Red Blood Cells % 0.0 Platelet Count 253 Potassium Level 4.1 Red Blood Count 3.53 L Red Cell Distribution Width 19.2 H Sodium Level 139 White Blood Count 5.5 Bedside Glucose 130 111 Medications Medications Current Medications Collagenase (Santyl) 1 applic DAILY TOP Last administered on 09/30/16 09:28; Admin Dose 1 APPLIC; Start 09/02/16 at 11:30 Hydralazine HCl (Apresoline) 10 mg Q4H PRN IV ELEVATED BLOOD PRESSURE Last administered on 09/25/16 10:20; Admin Dose 10 MG; Start 09/17/16 at 16:00 Metoclopramide HCl (Reglan) 5 mg Q6 IV Last administered on 09/30/16 05:51; Admin Dose 5 MG; Start 09/17/16 at 18:00 Morphine Sulfate (morphine) 2 mg Q4H PRN IV PAIN LEVEL 7-10 Last administered on 09/27/16 15:54; Admin Dose 2 MG; Start 09/18/16 at 12:00 Metoclopramide HCl (Reglan) 10 mg Q6H PRN IV .FOR GASTRIC RESIDUAL > 100 ML Last administered on 09/21/16 13:34; Admin Dose 10 MG; Start 09/20/16 at 12:30 Pantoprazole (Protonix Iv) 40 mg BID@06,18 IV Last administered on 09/30/16 05: 51; Admin Dose 40 MG; Start 09/20/16 at 18:00 Docusate Sodium (Colace Liquid Cup) 100 mg BID PRN GTB CONSTIPATION; Start at 15:30 Diagnostic Test (Pha) 1 ea 1 ea Q4 XX Last administered on 09/30/16 09:43; Admin Dose 1 EA; Start 09/24/16 at 13:00 Total Parenteral Nutrition 1,000 ml @ 60 mls/hr [id number] IV Last administered on 09/30/16 09:29; Admin Dose 60 MLS/HR; Start 09/24/16 at 14:00 Fat Emulsion Intravenous (Liposyn Ii 20%) 250 ml @ 10.4 mls/hr Q24H IV Last administered on 09/28/16 15:52; Admin Dose 10.4 MLS/HR; Start 09/24/16 at 14:00 IV Flush (NS 10 ml) 10 ml PRN PRN IV IV PROTOCOL; Start 09/24/16 at 14:00 Amiodarone HCl 200 mg 200 mg DAILY NGT Last administered on 09/30/16 09:28; Admin Dose 200 MG; Start 09/25/16 at 09:00 Norepinephrine/ Dextrose (Levophed/D5W) 500 ml @ 1.87 mls/hr TITRATE IV ; Start 09/25/16 at 17:00 Metoprolol Tartrate (Lopressor) 5 mg Q6H PRN IV IF HEART RATE ABOVE 120; Start 09/27/16 at 18:00 Methylprednisolone Sodium Succinate (Solu-Medrol) 20 mg QHS IV Last administered on 09/29/16 20:32; Admin Dose 20 MG; Start 09/29/16 at 21:00 Hydralazine HCl (Apresoline) 5 mg Q6H PRN IV sbp>150; Start 09/29/16 at 14:00 KATELYN SILVERMAN MD Sep 30, 2016 12:19
[2016-09-30] MEDS ORDERED: AMLODIPINE 2.5 MG TAB NGT SCH (13:00)
--- NOTE | 2016-09-30 13:00 | CONS ---
Date/Time of Note Date/Time of Note DATE: 09/30/16 TIME: 12:59 Assessment/Plan Assessment/Plan Additional Assessment/Plan Intermittent atrial tachycardia and atrial fibrillation Frequent PACs and PVCs Preserved ejection fraction Hypotension Hematemesis Respiratory failure Encephalopathy Acute kidney injury -Blood pressure trend remains elevated, will start low-dose Norvasc and titrate as blood pressure requirements. Patient also has IV hydralazine as needed. Consultation Date/Type/Reason Admit Date/Time Aug 31, 2016 at 14:59 Initial Consult Date 09/02/16 Type of Consultation: cv Referring Provider: MARIO ROWE 24 HR Interval Summary Free Text/Dictation Patient seen and examined. Blood pressure remains elevated Exam/Review of Systems Vital Signs Vitals Vital Signs Date Time Temp Pulse Resp B/P Pulse Ox O2 Delivery O2 Flow Rate FiO2 09/30/16 12:00 98.1 56 16 141/90 100 Mechanical Ventilator 09/30/16 08:00 30 Intake and Output 09/29/16 09/29/16 09/30/16 15:00 23:00 07:00 Intake Total 240 ml 240 ml 240 ml Output Total 345 ml 350 ml 670 ml Balance -105 ml -110 ml -430 ml Exam No apparent distress, no response to verbal stimuli Neck: other (Tracheostomy) Respiratory: other (Coarse breath sounds bilaterally, no wheezing) Cardiovascular: other (S1-S2 heard), regular rate and rhythm Gastrointestinal: bowel sounds, other (No grimacing with palpation), soft Extremities: edema Results Result Diagram: 09/30/16 0430 09/30/16 0430 Results 24 hrs Laboratory Tests Test 09/29/16 17:23 09/29/16 20:31 09/30/16 00:09 09/30/16 04:30 Bedside Glucose 95 94 143 Anion Gap 12 Basophils # 0.0 Basophils % 0.0 Blood Urea Nitrogen 48 H Calcium Level 8.2 L Carbon Dioxide Level 25 Chloride Level 106 Creatinine 1.73 H Eosinophils # 0.0 Eosinophils % 0.0 Glucose Level 142 Hematocrit 27.9 L Hemoglobin 9.4 L Lymphocytes # 0.6 L Lymphocytes % 11.5 L Mean Corpuscular Hemoglobin 26.6 L Mean Corpuscular Hemoglobin Concent 33.7 Mean Corpuscular Volume 79.0 L Mean Platelet Volume 13.4 H Monocytes # 0.3 Monocytes % 5.3 Neutrophils # 4.6 Neutrophils % 83.0 H Nucleated Red Blood Cells # 0.0 Nucleated Red Blood Cells % 0.0 Platelet Count 253 Potassium Level 4.1 Red Blood Count 3.53 L Red Cell Distribution Width 19.2 H Sodium Level 139 White Blood Count 5.5 Test 09/30/16 05:50 09/30/16 09:38 Bedside Glucose 130 111 Medications Medications Current Medications Collagenase (Santyl) 1 applic DAILY TOP Last administered on 09/30/16 09:28; Admin Dose 1 APPLIC; Start 09/02/16 at 11:30 Hydralazine HCl (Apresoline) 10 mg Q4H PRN IV ELEVATED BLOOD PRESSURE Last administered on 09/25/16 10:20; Admin Dose 10 MG; Start 09/17/16 at 16:00 Metoclopramide HCl (Reglan) 5 mg Q6 IV Last administered on 09/30/16 05:51; Admin Dose 5 MG; Start 09/17/16 at 18:00 Morphine Sulfate (morphine) 2 mg Q4H PRN IV PAIN LEVEL 7-10 Last administered on 09/27/16 15:54; Admin Dose 2 MG; Start 09/18/16 at 12:00 Metoclopramide HCl (Reglan) 10 mg Q6H PRN IV .FOR GASTRIC RESIDUAL > 100 ML Last administered on 09/21/16 13:34; Admin Dose 10 MG; Start 09/20/16 at 12:30 Pantoprazole (Protonix Iv) 40 mg BID@06,18 IV Last administered on 09/30/16 05: 51; Admin Dose 40 MG; Start 09/20/16 at 18:00 Docusate Sodium (Colace Liquid Cup) 100 mg BID PRN GTB CONSTIPATION; Start at 15:30 Diagnostic Test (Pha) 1 ea 1 ea Q4 XX Last administered on 09/30/16 09:43; Admin Dose 1 EA; Start 09/24/16 at 13:00 Total Parenteral Nutrition 1,000 ml @ 60 mls/hr [id number] IV Last administered on 09/30/16 09:29; Admin Dose 60 MLS/HR; Start 09/24/16 at 14:00 Fat Emulsion Intravenous (Liposyn Ii 20%) 250 ml @ 10.4 mls/hr Q24H IV Last administered on 09/28/16 15:52; Admin Dose 10.4 MLS/HR; Start 09/24/16 at 14:00 IV Flush (NS 10 ml) 10 ml PRN PRN IV IV PROTOCOL; Start 09/24/16 at 14:00 Amiodarone HCl 200 mg 200 mg DAILY NGT Last administered on 09/30/16 09:28; Admin Dose 200 MG; Start 09/25/16 at 09:00 Norepinephrine/ Dextrose (Levophed/D5W) 500 ml @ 1.87 mls/hr TITRATE IV ; Start 09/25/16 at 17:00 Metoprolol Tartrate (Lopressor) 5 mg Q6H PRN IV IF HEART RATE ABOVE 120; Start 09/27/16 at 18:00 Methylprednisolone Sodium Succinate (Solu-Medrol) 20 mg QHS IV Last administered on 09/29/16 20:32; Admin Dose 20 MG; Start 09/29/16 at 21:00 Hydralazine HCl (Apresoline) 5 mg Q6H PRN IV sbp>150; Start 09/29/16 at 14:00 Maynor Broderick DO Sep 30, 2016 13:00
[2016-09-30] MEDS: hydrALAzine 20 MG INJ IV PRN (13:41)
[2016-09-30] MEDS: FAT EMULSION 20% 250 ML IV SCH (14:46)
--- NOTE | 2016-09-30 16:00 | PN ---
Date/Time of Note Date/Time of Note DATE: 09/30/16 TIME: 15:57 Assessment/Plan VTE Prophylaxis VTE Prophylaxis Intervention: other (per pmd) Lines/Catheters IV Catheter Type (from Nrsg): PICC Line Central line still needed: No (per pmd) Urinary Cath still in place: Yes Reason Cath still needed: other (indicate) (per pmd) Assessment/Plan Chief Complaint/Hosp Course #1 status post removal of the gastrostomy #2 no bleeding noted from the gastrostomy #3 hemoglobin is stable number for continue nasogastric suction pl Recommend continue nasogastric suction antibiotic therapy Proton pump inhibitor therapy Problems: Assessment/Plan tolerating g t feeding plan increasu g t feeding Subjective 24 Hr Interval Summary Free Text/Dictation non verbal lethargic Exam/Review of Systems Vital Signs Vitals Vital Signs Date Time Temp Pulse Resp B/P Pulse Ox O2 Delivery O2 Flow Rate FiO2 09/30/16 15:10 95 25 98 30 09/30/16 15:00 137/93 Mechanical Ventilator 09/30/16 12:00 98.1 Intake and Output 09/29/16 09/29/16 09/30/16 15:00 23:00 07:00 Intake Total 240 ml 240 ml 240 ml Output Total 345 ml 350 ml 670 ml Balance -105 ml -110 ml -430 ml Exam o/e lethargic abd soft lungs clear Results Result Diagram: 09/30/16 0430 09/30/16 0430 Results 24 hrs Laboratory Tests Test 09/29/16 17:23 09/29/16 20:31 09/30/16 00:09 09/30/16 04:30 Bedside Glucose 95 94 143 Anion Gap 12 Basophils # 0.0 Basophils % 0.0 Blood Urea Nitrogen 48 H Calcium Level 8.2 L Carbon Dioxide Level 25 Chloride Level 106 Creatinine 1.73 H Eosinophils # 0.0 Eosinophils % 0.0 Glucose Level 142 Hematocrit 27.9 L Hemoglobin 9.4 L Lymphocytes # 0.6 L Lymphocytes % 11.5 L Mean Corpuscular Hemoglobin 26.6 L Mean Corpuscular Hemoglobin Concent 33.7 Mean Corpuscular Volume 79.0 L Mean Platelet Volume 13.4 H Monocytes # 0.3 Monocytes % 5.3 Neutrophils # 4.6 Neutrophils % 83.0 H Nucleated Red Blood Cells # 0.0 Nucleated Red Blood Cells % 0.0 Platelet Count 253 Potassium Level 4.1 Red Blood Count 3.53 L Red Cell Distribution Width 19.2 H Sodium Level 139 White Blood Count 5.5 Test 09/30/16 05:50 09/30/16 09:38 09/30/16 13:50 Bedside Glucose 130 111 117 Medications Medications Current Medications Collagenase (Santyl) 1 applic DAILY TOP Last administered on 09/30/16 09:28; Admin Dose 1 APPLIC; Start 09/02/16 at 11:30 Hydralazine HCl (Apresoline) 10 mg Q4H PRN IV ELEVATED BLOOD PRESSURE Last administered on 09/30/16 13:41; Admin Dose 10 MG; Start 09/17/16 at 16:00 Metoclopramide HCl (Reglan) 5 mg Q6 IV Last administered on 09/30/16 13:41; Admin Dose 5 MG; Start 09/17/16 at 18:00 Morphine Sulfate (morphine) 2 mg Q4H PRN IV PAIN LEVEL 7-10 Last administered on 09/27/16 15:54; Admin Dose 2 MG; Start 09/18/16 at 12:00 Metoclopramide HCl (Reglan) 10 mg Q6H PRN IV .FOR GASTRIC RESIDUAL > 100 ML Last administered on 09/21/16 13:34; Admin Dose 10 MG; Start 09/20/16 at 12:30 Pantoprazole (Protonix Iv) 40 mg BID@06,18 IV Last administered on 09/30/16 05: 51; Admin Dose 40 MG; Start 09/20/16 at 18:00 Docusate Sodium (Colace Liquid Cup) 100 mg BID PRN GTB CONSTIPATION; Start at 15:30 Diagnostic Test (Pha) 1 ea 1 ea Q4 XX Last administered on 09/30/16 13:51; Admin Dose 1 EA; Start 09/24/16 at 13:00 Total Parenteral Nutrition 1,000 ml @ 60 mls/hr [id number] IV Last administered on 09/30/16 09:29; Admin Dose 60 MLS/HR; Start 09/24/16 at 14:00 Fat Emulsion Intravenous (Liposyn Ii 20%) 250 ml @ 10.4 mls/hr Q24H IV Last administered on 09/30/16 14:46; Admin Dose 10.4 MLS/HR; Start 09/24/16 at 14:00 IV Flush (NS 10 ml) 10 ml PRN PRN IV IV PROTOCOL; Start 09/24/16 at 14:00 Amiodarone HCl 200 mg 200 mg DAILY NGT Last administered on 09/30/16 09:28; Admin Dose 200 MG; Start 09/25/16 at 09:00 Norepinephrine/ Dextrose (Levophed/D5W) 500 ml @ 1.87 mls/hr TITRATE IV ; Start 09/25/16 at 17:00 Metoprolol Tartrate (Lopressor) 5 mg Q6H PRN IV IF HEART RATE ABOVE 120; Start 09/27/16 at 18:00 Methylprednisolone Sodium Succinate (Solu-Medrol) 20 mg QHS IV Last administered on 09/29/16 20:32; Admin Dose 20 MG; Start 09/29/16 at 21:00 Hydralazine HCl (Apresoline) 5 mg Q6H PRN IV sbp>150; Start 09/29/16 at 14:00 Amlodipine Besylate (Norvasc) 2.5 mg DAILY NGT Last administered on 09/30/16 13 :41; Admin Dose 2.5 MG; Start 09/30/16 at 13:00 KATELYN SILVERMAN MD Sep 30, 2016 16:00
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
--- NOTE | 2016-09-30 18:18 | PN ---
DATE: ADDENDUM Addendum to dictation done by nurse practitioner, David Benavides. I called the patient's daughter, Osbaldo, telephone number [phone], updated her regarding the patient's condition and plan of ca re. All questions answered. I also explained to her that the patient has poor prognosis for any me aningful recovery. The patient also has poor quality of life and is a total care and has developed contractures and which are likely to get worse. The patient also remains at risk for recurren t infections. The patient is stable for transfer to subacute unit today. I also explained to her t hat the patient has acute kidney injury and was seen by faith doctor and his recommendations are miah ng carried out. The patient's daughter stated that she is hoping for a miraculous recovery. DISPOSITION: The patient will be transferred to subacute today and will have ongoing care of his mu ltiple medical conditions at subacute unit. Dictated By: MARLA GUSMAN/MACK Conf#: [id number] DID#: [id number]
--- NOTE | 2016-09-30 19:13 | PN ---
Date/Time of Note Date/Time of Note DATE: 09/29/16 TIME: 19:12 Assessment/Plan Lines/Catheters IV Catheter Type (from [facility]): PICC Line Chaudhari in Place (from [facility]): Yes Assessment/Plan Chief Complaint/Hosp Course 1. Distended stomach with negative SBFT. -nutrition as tolerated 2. Gastric ulcer -ppi 3. Anemia -monitor 4. Functional quadriplegia -off loading -nutritional optimization 5. Decubitus ulcerations -off loading -nutritional optimization -vit c -local care -debridement prn 6. Chronic encephalopathy -as above 7. Dysphagia s/p feeding tube on tube feeds 8. VDRF -pulmonary toilette and ventilator management 9. Renal insufficiency -judicious fluid management -avoid nephrotoxic agents Thank you, Late entry 09/29 Problems: Subjective 24 Hr Interval Summary No f/c. No cough. No sz. No vomiting. No bloating. No rash. Min hard stool in bag. No bleeding. No joint swelling. Feedings. Exam/Review of Systems Vital Signs Vitals Vital Signs Date Time Temp Pulse Resp B/P Pulse Ox O2 Delivery O2 Flow Rate FiO2 09/30/16 18:00 86 17 133/92 99 Mechanical Ventilator 09/30/16 17:10 30 09/30/16 16:00 98.4 Intake and Output 09/29/16 09/29/16 09/30/16 15:00 23:00 07:00 Intake Total 240 ml 240 ml 240 ml Output Total 345 ml 350 ml 670 ml Balance -105 ml -110 ml -430 ml Exam Free Text/Dictation Constitutional: non-verbal, No oriented Psych: anxiety, No nl mood/affect Head: normocephalic Eyes: nl conjunctiva, No icteric ENMT: nl external ears & nose Neck: non-tender, No jvd Respiratory: normal air movement, No congested cough, No labored breathing Cardiovascular: regular rate and rhythm, No edema Gastrointestinal: non-tender, other (colostomy with min stool), soft, No distended, No rebound or guarding Musculoskeletal: No joint tenderness, No nl extremities to inspection, No nl gait and stance Extremities: No calf tenderness, No cyanosis Neurological: No nl mental status, No nl speech, No nl strength Skin: rash or lesions (decubitus ulcers), No diaphoresis, No nl turgor Lymph: nl lymph nodes Results Result Diagram: 09/30/16 0430 09/30/16 0430 JOSE ANGEL MATTHEWS MD Sep 30, 2016 19:13
--- NOTE | 2016-09-30 19:14 | PN ---
Date/Time of Note Date/Time of Note DATE: 09/30/16 TIME: 19:13 Assessment/Plan Lines/Catheters IV Catheter Type (from [facility]): PICC Line Chaudhari in Place (from [facility]): Yes Assessment/Plan Chief Complaint/Hosp Course 1. Distended stomach with negative SBFT. -nutrition as tolerated 2. Gastric ulcer -ppi 3. Anemia -monitor 4. Functional quadriplegia -off loading -nutritional optimization 5. Decubitus ulcerations -off loading -nutritional optimization -vit c -local care -debridement prn 6. Chronic encephalopathy -as above 7. Dysphagia s/p feeding tube on tube feeds 8. VDRF -pulmonary toilette and ventilator management 9. Renal insufficiency -judicious fluid management -avoid nephrotoxic agents Thank you, Problems: Subjective 24 Hr Interval Summary No f/c. No cough. No sz. No vomiting. No bloating. No rash. Min hard stool in bag. No bleeding. No joint swelling. Feedings. Exam/Review of Systems Vital Signs Vitals Vital Signs Date Time Temp Pulse Resp B/P Pulse Ox O2 Delivery O2 Flow Rate FiO2 09/30/16 18:00 86 17 133/92 99 Mechanical Ventilator 09/30/16 17:10 30 09/30/16 16:00 98.4 Intake and Output 09/29/16 09/29/16 09/30/16 15:00 23:00 07:00 Intake Total 240 ml 240 ml 240 ml Output Total 345 ml 350 ml 670 ml Balance -105 ml -110 ml -430 ml Exam Free Text/Dictation Constitutional: non-verbal, No oriented Psych: anxiety, No nl mood/affect Head: normocephalic Eyes: nl conjunctiva, No icteric ENMT: nl external ears & nose Neck: non-tender, No jvd Respiratory: normal air movement, No congested cough, No labored breathing Cardiovascular: regular rate and rhythm, No edema Gastrointestinal: non-tender, other (colostomy with min stool), soft, No distended, No rebound or guarding Musculoskeletal: No joint tenderness, No nl extremities to inspection, No nl gait and stance Extremities: No calf tenderness, No cyanosis Neurological: No nl mental status, No nl speech, No nl strength Skin: rash or lesions (decubitus ulcers), No diaphoresis, No nl turgor Lymph: nl lymph nodes Results Result Diagram: 09/30/16 0430 09/30/16 0430 JOSE ANGEL MATTHEWS MD Sep 30, 2016 19:14
--- NOTE | 2016-09-30 21:01 | CONS ---
Date/Time of Note Date/Time of Note DATE: 09/30/16 TIME: 20:57 Assessment/Plan Assessment/Plan Chief Complaint/Hosp Course With increased Urine Vol, Somewhat decreasing Creat renal fn may be on the verge of reversal. Problems: Additional Assessment/Plan Dc Plans noted Pwill need close f/u afteischarge Consultation Date/Type/Reason Admit Date/Time Aug 31, 2016 at 14:59 Initial Consult Date 09/02/16 Type of Consultation: renal Referring Provider: MARIO ROWE 24 HR Interval Summary Subjective hx not possible: pt non-verbal Constitutional: no complaints Exam/Review of Systems Vital Signs Vitals Vital Signs Date Time Temp Pulse Resp B/P Pulse Ox O2 Delivery O2 Flow Rate FiO2 09/30/16 19:10 80 16 98 30 09/30/16 18:00 133/92 Mechanical Ventilator 09/30/16 16:00 98.4 Intake and Output 09/29/16 09/29/16 09/30/16 15:00 23:00 07:00 Intake Total 240 ml 240 ml 240 ml Output Total 345 ml 350 ml 670 ml Balance -105 ml -110 ml -430 ml Exam No response whatsoever Constitutional: alert, oriented, well developed Psych: nl mood/affect, no complaints Head: atraumatic, normocephalic Eyes: EOMI, PERRL, nl conjunctiva, nl lids, nl sclera ENMT: nl external ears & nose, nl lips & teeth, nl nasal mucosa & septum Neck: non-tender, supple Respiratory: clear to auscultation, normal air movement, other (Vent fependant) Cardiovascular: nl pulses, regular rate and rhythm Gastrointestinal: nl liver, spleen, non-tender, other (GTube site is ok), soft Musculoskeletal: nl extremities to inspection, nl gait and stance Extremities: normal pulses Neurological: COMPLEX CASE MANAGER II-XII intact, nl mental status, nl speech, nl strength Skin: nl turgor, No rash or lesions Lymph: nl lymph nodes Results Hbg stablee. futher improvement in Creat noted Result Diagram: 09/30/16 0430 09/30/16 0430 Results 24 hrs Laboratory Tests Test 09/30/16 00:09 09/30/16 04:30 09/30/16 05:50 09/30/16 09:38 Bedside Glucose 143 130 111 Anion Gap 12 Basophils # 0.0 Basophils % 0.0 Blood Urea Nitrogen 48 H Calcium Level 8.2 L Carbon Dioxide Level 25 Chloride Level 106 Creatinine 1.73 H Eosinophils # 0.0 Eosinophils % 0.0 Glucose Level 142 Hematocrit 27.9 L Hemoglobin 9.4 L Lymphocytes # 0.6 L Lymphocytes % 11.5 L Mean Corpuscular Hemoglobin 26.6 L Mean Corpuscular Hemoglobin Concent 33.7 Mean Corpuscular Volume 79.0 L Mean Platelet Volume 13.4 H Monocytes # 0.3 Monocytes % 5.3 Neutrophils # 4.6 Neutrophils % 83.0 H Nucleated Red Blood Cells # 0.0 Nucleated Red Blood Cells % 0.0 Platelet Count 253 Potassium Level 4.1 Red Blood Count 3.53 L Red Cell Distribution Width 19.2 H Sodium Level 139 White Blood Count 5.5 Test 09/30/16 13:50 09/30/16 17:05 Bedside Glucose 117 117 JAMES PIERSON MD Sep 30, 2016 21:01
== END 2016-09-30 20:44 | disposition home or self-care (01) | DRG 853 ==
LOC: E/R 12:17 → TEL 14:59 → ICU 09-19 08:24
PROVIDERS: ADMIT Internal Medicine; ATTEND Internal Medicine
PROC: 5A1955Z Respiratory Ventilation, Greater than 96 Consecutive Hours (ICD-10-PCS; principal; 2016-08-31)
PROC: 0DP68UZ Removal of Feeding Device from Stomach, Via Natural or Artificial Opening Endoscopic (ICD-10-PCS; 2016-09-01)
PROC: 0DH63UZ Insertion of Feeding Device into Stomach, Percutaneous Approach (ICD-10-PCS; 2016-09-15)
PROC: 3E0336Z Introduction of Nutritional Substance into Peripheral Vein, Percutaneous Approach (ICD-10-PCS; 2016-09-21)
PROC: 30233N1 Transfusion of Nonautologous Red Blood Cells into Peripheral Vein, Percutaneous Approach (ICD-10-PCS; 2016-09-22)
PROC: 02HV33Z Insertion of Infusion Device into Superior Vena Cava, Percutaneous Approach (ICD-10-PCS; 2016-09-24)
PROC: B548ZZA Ultrasonography of Superior Vena Cava, Guidance (ICD-10-PCS; 2016-09-24)
DX: A41.1 Sepsis due to other specified staphylococcus (principal); J69.0 Pneumonitis due to inhalation of food and vomit; J96.20 Acute and chronic respiratory failure, unspecified whether with hypoxia or hypercapnia; E43 Unspecified severe protein-calorie malnutrition; J18.9 Pneumonia, unspecified organism; G93.1 Anoxic brain damage, not elsewhere classified; I47.2 Ventricular tachycardia; N17.9 Acute kidney failure, unspecified; K25.4 Chronic or unspecified gastric ulcer with hemorrhage; L89.153 Pressure ulcer of sacral region, stage 3; R53.2 Functional quadriplegia; L89.893 Pressure ulcer of other site, stage 3; Z99.11 Dependence on respirator [ventilator] status; E87.0 Hyperosmolality and hypernatremia; N39.0 Urinary tract infection, site not specified; K94.23 Gastrostomy malfunction; E87.1 Hypo-osmolality and hyponatremia; I47.1 Supraventricular tachycardia; K94.22 Gastrostomy infection; Z68.1 Body mass index [BMI] 19.9 or less, adult; K56.69 Other intestinal obstruction; J44.0 Chronic obstructive pulmonary disease with (acute) lower respiratory infection; E86.0 Dehydration; R65.20 Severe sepsis without septic shock; Z74.01 Bed confinement status; Z93.0 Tracheostomy status; Z93.3 Colostomy status; R13.10 Dysphagia, unspecified; I10 Essential (primary) hypertension; Z87.440 Personal history of urinary (tract) infections; Z87.01 Personal history of pneumonia (recurrent); F03.90 Unspecified dementia, unspecified severity, without behavioral disturbance, psychotic disturbance, mood disturbance, and anxiety; E87.6 Hypokalemia; L89.890 Pressure ulcer of other site, unstageable; R76.12 Nonspecific reaction to cell mediated immunity measurement of gamma interferon antigen response without active tuberculosis; S06.9X0S Unspecified intracranial injury without loss of consciousness, sequela; B19.20 Unspecified viral hepatitis C without hepatic coma; Y83.3 Surgical operation with formation of external stoma as the cause of abnormal reaction of the patient, or of later complication, without mention of misadventure at the time of the procedure; Y92.129 Unspecified place in nursing home as the place of occurrence of the external cause; B95.62 Methicillin resistant Staphylococcus aureus infection as the cause of diseases classified elsewhere; I49.1 Atrial premature depolarization; I49.3 Ventricular premature depolarization; D50.0 Iron deficiency anemia secondary to blood loss (chronic); Y83.8 Other surgical procedures as the cause of abnormal reaction of the patient, or of later complication, without mention of misadventure at the time of the procedure; R23.8 Other skin changes; R33.9 Retention of urine, unspecified; B95.2 Enterococcus as the cause of diseases classified elsewhere; B96.1 Klebsiella pneumoniae [K. pneumoniae] as the cause of diseases classified elsewhere; B96.5 Pseudomonas (aeruginosa) (mallei) (pseudomallei) as the cause of diseases classified elsewhere; I95.9 Hypotension, unspecified; V09.9XXS Pedestrian injured in unspecified transport accident, sequela; Y95 Nosocomial condition
CPT/HCPCS: 36415; 36430; 36569; 36600; 71010; 74000; 74176; 74250; 76775; 76937; 80048; 80053; 80200; 80202; 81001; 81003; 82150; 82803; 82962; 83540; 83605; 83690; 83735; 83935; 84100; 84145; 84300; 84443; 84484; 85014; 85018; 85025; 85610; 85730; 86850; 86900; 86901; 86920; 87040; 87070; 87075; 87081; 87086; 88305; 88312; 89190; 89220; 93005; 94002; 94003; 94640; 96365; 96375; 97161; J1940; C1769; C9113; J0360; J0690; J1956; J2185; J2250; J2270; J2370; J2405; J2543; J2765; J2916; J2920; J3010; J3260; J3370; J3475; J3480; J7030; J7040; J7042; J7050; J7070; P9016

== ENCOUNTER 2016-12-08 09:57 | Inpatient (IN) | payer MEDICARE, BC ==
[~2016-12-08] VITALS: Ht 182.9 cm; Wt 60.9 kg
[2016-12-08] MEDS ORDERED: SODIUM CHLORIDE 0.9% 1L BAG IV* STA (10:07)
[2016-12-08] MEDS ORDERED: METO-448 GTB (10:28)
[2016-12-08] MEDS ORDERED: ALBU2.5V3 NEB ×2 (10:29→10:30)
[2016-12-08] MEDS ORDERED: AMIO100T4 GTB (10:31)
[2016-12-08] MEDS ORDERED: CHLO473M4 MM (10:32)
[2016-12-08] MEDS ORDERED: DOCU-144 GTB (10:33)
[2016-12-08] MEDS ORDERED: CRAN3875 GTB (10:34)
[2016-12-08 10:35] LABS: ADD SCAN DIFF NO
[2016-12-08] MEDS ORDERED: ACET-2047 GTB ×2 (10:35→10:36)
[2016-12-08] MEDS ORDERED: TRAM-40 GTB (10:37)
[2016-12-08] MEDS ORDERED: PANT40TA3 GTB (10:38)
[2016-12-08] MEDS ORDERED: MULT-761 GTB (10:43)
[2016-12-08] MEDS ORDERED: FERR220S2 GTB (10:46)
[2016-12-08 10:54] LABS: INR 1.19; PROTIME 15.2 Sec (12.2-14.2); PT RATIO 1.2
[2016-12-08 10:56] LABS: ALBUMIN 4.2 g/dl (3.3-4.9)
[2016-12-08 10:57] LABS: POTASSIUM 4.3 mmol/L (3.5-5.1)
[2016-12-08 10:59] LABS: ALBUMIN/GLOBULIN RATIO 0.84; BILIRUBIN,INDIRECT 0.5 mg/dl (0-1.1); BILIRUBIN,TOTAL 0.5 mg/dl (0.2-1.3); CREATININE 1.11 mg/dl (0.61-1.24); TOTAL PROTEIN 9.2 g/dl (6.1-8.1)
[2016-12-08 11:00] LABS: CALCIUM 10.4 mg/dl (8.4-10.2)
[2016-12-08 11:07] LABS: TROPONIN-I 0.017 ng/ml (0.00-0.12)
[2016-12-08 11:12] LABS: ABNORMAL IP MESSAGE 1; BASOPHILS % 0.4 % (0.0-2.0); EOSINOPHILS % 0.4 % (0.0-7.0); HEMATOCRIT 38.9 % (42.0-52.0); HEMOGLOBIN 12.5 g/dl (14.0-18.0); LYMPHOCYTES # 1.5 10^3/ul (0.8-2.9); LYMPHOCYTES % 31.1 % (15.0-51.0); MEAN CORPUSCULAR HEMOGLOBIN 28.2 pg (29.0-33.0); MEAN CORPUSCULAR HGB CONC 32.1 g/dl (32.0-37.0); MEAN CORPUSCULAR VOLUME 87.8 fl (82.0-101.0); MEAN PLATELET VOLUME 13.6 fl (7.4-10.4); MONOCYTE # 0.3 10^3/ul (0.3-0.9); MONOCYTES % 6.4 % (0.0-11.0); NEUTROPHILS % 61.5 % (39.0-77.0); PLATELET COUNT 231 10^3/UL (140-415); RED BLOOD COUNT 4.43 10^6/ul (4.70-6.10); RED CELL DISTRIBUTION WIDTH 18.6 % (11.5-14.5); WHITE BLOOD COUNT 4.9 10^3/ul (4.8-10.8)
--- NOTE | 2016-12-08 11:26 | RADRPT ---
PROCEDURE: XR Chest 1 View. CLINICAL INDICATION: Shortness of breath, possible sepsis. TECHNIQUE: AP view of the chest was obtained. COMPARISON: September 24, 2016 FINDINGS: The cardiomediastinal silhouette is within normal limits. The lungs are hypoinflated. Tracheostomy t ube is stable and appears in grossly appropriate location. Chronic interstitial prominence is seen in both lungs. Atelectasis versus mild infiltrates are seen in the bilateral lower lobes and right u pper lobe. The osseous structures are osteopenic, but appear grossly intact IMPRESSION: Atelectasis versus mild infiltrates in the bilateral lower lobes and right upper lobe. Chronic mild interstitial prominence in both lungs. RPTAT: AA .Kervin Hanson MD, Date Time Electronically viewed and signed by .Kervin Hanson MD, MD on 12/08/2016 11:26 .P/
[2016-12-08] MEDS ORDERED: CEFEPIME 1GM/50 ML (PMX) 50 ML IVPB STA (12:00)
[2016-12-08] MEDS ORDERED: PANTOPRAZOLE 40 MG INJ IV ONE (12:00)
[2016-12-08] MEDS ORDERED: CIPROFLOXACIN 400MG/D5W 200 ML IVPB STA (12:00)
[2016-12-08] MEDS ORDERED: SOD CHLORIDE 0.9% 1,000 ML IV SCH (12:01)
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
[2016-12-08] MEDS ORDERED: ACETAMINOPHEN 325 MG TAB PO PRN (12:30)
[2016-12-08] MEDS ORDERED: ONDANSETRON 4 MG INJ IV PRN (12:30)
[2016-12-08 12:47] VITALS: TEMP 101.3
[2016-12-08] MEDS ORDERED: ACETAMINOPHEN 160 MG/5ML CUP ONE (13:36)
[2016-12-08] MEDS ORDERED: ACETAMINOPHEN 650MG/20.3ML CUP ONE (13:39)
[2016-12-08] MEDS ORDERED: ACETAMINOPHEN 650MG/20.3ML CUP GTB ONE (14:00)
[2016-12-08 19:53] VITALS: BP 149/76; RESP 20
[2016-12-08 20:00] VITALS: PULSE 84
[2016-12-08] MEDS ORDERED: VANCOMYCIN IV PER PHARMACY XX SCH (20:30)
[2016-12-08] MEDS ORDERED: ACETAMINOPHEN 650 MG SUPP PR PRN (20:30)
[2016-12-08] MEDS ORDERED: morphine 2 MG INJ IV PRN (20:30)
[2016-12-08] MEDS ORDERED: DEXTROSE 5%-0.45% NACL 1,000 ML IV SCH (20:30)
[2016-12-08 20:40] VITALS: RESP 22
[2016-12-08] MEDS ORDERED: VANCOMYCIN 1 GM in NS 250 ML IVPB SCH (21:00)
[2016-12-08 22:04] VITALS: Ht 182.9 cm; Wt 60.9 kg
[2016-12-08 22:05] VITALS: RESP 27
--- NOTE | 2016-12-08 23:13 | HP ---
DATE OF ADMISSION: 12/08/2016 CHIEF COMPLAINT: Hematemesis. HISTORY OF PRESENT ILLNESS: The patient is a 71-year-old gentleman with history of traumatic brain injury, subdural hematoma, chronic encephalopathy, chronic respiratory failure. The patient is PEG dependent and also has COPD, dysphagia, and is nonverbal at baseline. The patient was brought into ER from [facility] due to hematemesis. Patient, in the ER, was also noted to have a fever of 101.3 axillary and was tachycardic. Initial pulse rate w as 132. Patient does have history of recurrent upper GI bleed and recently had small-bowel obstruct ion and also upper gastrointestinal bleed secondary to gastrostomy site ulcer after he underwent EGD by Dr. Pryor. Patient's hemoglobin the ER, was noted to 12.5. Patient did have elevated BUN of 4 2, bicarbonate 40. Lactic acid was 2.8, calcium was 10.4. Patient had ALT of 149, ALT of 234. The patient's liver enzymes were normal back in September 2016. The patient did not have a urine examin ation done in the ER; however, the patient did have a chest x-ray done, which revealed atelectasis v ersus mild infiltrate in the bilateral lower lobe and right upper lobe. The patient was diagnosed w ith healthcare facility-acquired pneumonia and is being admitted for further evaluation and manageme nt. Patient also was diagnosed with sepsis due to healthcare facility-acquired pneumonia. REVIEW OF SYSTEMS: Patient could not provide any useful review of systems, as he is nonverbal at [facility]. No reported rectal bleed, no reported abdominal distention. Patient did not have any seizu res. Patient is awake; however, nonverbal. Review of systems, as mentioned above, was limited. PAST MEDICAL HISTORY: As stated above. The patient recently had small-bowel obstruction, which res olved, and also had upper GI bleed due to gastrostomy site ulcer disease. The patient also has a co lostomy and has been bedbound. The patient also had acute kidney injury back in September 2016, for which patient was seen by Dr. Conner Hester, and his creatinine at the time of discharge in October 18 was 1.7; in fact, his creatinine is better today at 1.1. PAST SURGICAL HISTORY: Patient is status post tracheostomy and G-tube placement. Patient also has colostomy. ALLERGIES: NONE. SOCIAL HISTORY: Ex-smoker. FAMILY HISTORY: Could not be obtained. MEDICATIONS: [facility]. PHYSICAL EXAMINATION. GENERAL: The patient is awake but nonverbal. VITAL SIGNS: In the ER, temperature 101.3, pulse was as high as 130, respirations 31. O2 saturatio n 99% on FiO2 of 50%. The patient is currently on vent. HEENT: No eye discharge or redness. Extraocular movements could not be tested. Conjunctivae and l ids normal. Nose and ears normal externally. Oropharynx grossly negative. NECK: No mass or JVD. CHEST: Revealed diminished air entry at bases. A few scattered rhonchi. CARDIOVASCULAR: Regular rate and rhythm. S1, S2 normal. No murmur, gallop, or gallops. ABDOMEN: Soft, nondistended, nontender. No palpable mass. EXTREMITIES: No leg edema. The patient has contractures in all extremities. RESPIRATORY: No clubbing, cyanosis. NEUROLOGIC: The patient is awake; however, nonverbal. LABORATORY DATA: Sodium 131, potassium 4.3, bicarbonate 40, BUN 42, creatinine 1.1, glucose 110, ca lcium 10.4. Lactic acid 2.8. WBC 4.9, hemoglobin 12.5, platelets 231. Chest x-ray as described above. IMPRESSION: 1. Upper gastrointestinal bleed. 2. Healthcare facility-acquired pneumonia. 3. Subdural hematoma with chronic encephalopathy. 4. Chronic obstructive pulmonary disease. 5. Chronic respiratory failure. 6. Hypertension. 7. Intermittent atrial tachycardia and atrial fibrillation with preserved ejection fraction. PLAN: The patient will be admitted on telemetry floor. Patient will continue on current vent setti ngs and will be given DuoNeb. Will also start him on IV vancomycin and cefepime. The patient will be pancultured, including urine, blood, and sputum. The patient will be given IV fluids and will be kept n.p.o. Will be given IV Protonix for upper gastrointestinal bleed. Will hold off on oral med ications. Will continue to monitor H and H. Continue colostomy care. Avoid nephrotoxic agents. I will also obtain wound care consult. Meanwhile, a pulmonary consult from Dr. Salas and ID consult from Dr. Tang will also be obtained. I spoke with Dr. Pryor to obtain a GI consult. Continue br eathing treatment. We will use SCDs for DVT prophylaxis. Further recommendation depends on hospita l course. I did have a discussion with patient's daughter on 09/30/2016, and at that time I did exp david to her that the patient's prognosis for any meaningful recovery is poor and patient has no hope for any meaningful recovery. She wanted him to be full code. Further recommendations will depend on patient's hospital course and recommendations from multiple consultants. Dictated By: MARLA GUSMAN/MACK Conf#: [id number] DID#: [id number]
[2016-12-08 23:25] VITALS: RESP 18
[2016-12-09] VITALS (25 sets, daily range): BP systolic 128–179; BP diastolic 72–94; PULSE 70–86; RESP 16–28
[2016-12-09] MEDS ORDERED: ALBUTEROL/IPRATROPIUM (NEB) 3 ML AMP HHN SCH (02:00)
[2016-12-09] MEDS: ALBUTEROL 18 GM INHALER INH SCH ×4 (02:00→19:46)
[2016-12-09] MEDS: IPRATROPIUM (HFA) 12.9 GM INHALER INH SCH ×4 (02:00→19:46)
[2016-12-09] MEDS ORDERED: COLLAGENASE 30 GM TUBE TOP PRN (04:30)
[2016-12-09] MEDS ORDERED: PENDING SANTYL ORDER FOR WOUND CARE XX PRN (04:30)
[2016-12-09] MEDS: PANTOPRAZOLE 40 MG INJ IV SCH ×2 (05:59→17:20)
[2016-12-09 07:05] LABS: ADD SCAN DIFF NO
[2016-12-09 07:15] LABS: ABNORMAL IP MESSAGE 1; BASOPHILS % 0.3 % (0.0-2.0); EOSINOPHILS # 0.2 10^3/ul (0.0-0.5); EOSINOPHILS % 1.3 % (0.0-7.0); HEMATOCRIT 31.6 % (42.0-52.0); HEMOGLOBIN 10.2 g/dl (14.0-18.0); LYMPHOCYTES # 1.9 10^3/ul (0.8-2.9); LYMPHOCYTES % 15.9 % (15.0-51.0); MEAN CORPUSCULAR HEMOGLOBIN 28.7 pg (29.0-33.0); MEAN CORPUSCULAR HGB CONC 32.3 g/dl (32.0-37.0); MEAN PLATELET VOLUME 13.5 fl (7.4-10.4); MONOCYTE # 0.8 10^3/ul (0.3-0.9); MONOCYTES % 6.9 % (0.0-11.0); NEUTROPHILS % 75.3 % (39.0-77.0); PLATELET COUNT 165 10^3/UL (140-415); RED BLOOD COUNT 3.55 10^6/ul (4.70-6.10); RED CELL DISTRIBUTION WIDTH 18.7 % (11.5-14.5); WHITE BLOOD COUNT 11.9 10^3/ul (4.8-10.8)
[2016-12-09 07:43] LABS: CALCIUM 9.6 mg/dl (8.4-10.2); POTASSIUM 4.3 mmol/L (3.5-5.1)
[2016-12-09] MEDS: COLLAGENASE 30 GM TUBE TOP SCH (10:08)
[2016-12-09] MEDS: CEFEPIME 1GM/50 ML (PMX) 50 ML IVPB SCH ×2 (10:08)
[2016-12-09] MEDS: D5-NS + KCL 20 MEQ 1,000 ML IV SCH ×2 (17:21→19:00)
--- NOTE | 2016-12-09 19:05 | PN ---
Date/Time of Note Date/Time of Note DATE: 12/09/16 TIME: 19:00 Assessment/Plan VTE Prophylaxis VTE Prophylaxis Intervention: other Lines/Catheters IV Catheter Type (from Nrs): Peripheral IV Urinary Cath still in place: Yes Reason Cath still needed: urinary retention Assessment/Plan Assessment/Plan 1. Upper gastrointestinal bleed. -per GI 2. Healthcare facility-acquired pneumonia. - per ID 3. Subdural hematoma with chronic encephalopathy. 4. Chronic obstructive pulmonary disease. 5. VD Chronic respiratory failure. - per pulmonary 6. Hypertension. 7. Intermittent atrial tachycardia and atrial fibrillation with preserved ejection fraction. Subjective 24 Hr Interval Summary Free Text/Dictation nad,non responsive, afebrile, remains on vent, dw staff Subjective hx not possible: pt non-verbal Constitutional: requiring IVF, requiring O2 Exam/Review of Systems Vital Signs Vitals Vital Signs Date Time Temp Pulse Resp B/P Pulse Ox O2 Delivery O2 Flow Rate FiO2 12/09/16 17:40 82 16 97 40 12/09/16 15:28 98.3 159/76 Intake and Output 12/08/16 12/08/16 12/09/16 15:00 23:00 07:00 Intake Total 125 ml 550 ml Output Total 800 ml Balance 125 ml -250 ml Exam Constitutional: frail Neck: other (trach intact) Respiratory: diminished breath sounds Gastrointestinal: non-tender, soft Musculoskeletal: muscle weakness Extremities: normal pulses Neurological: unresponsive Skin: other Lymph: nontender ( ) Results Result Diagram: 12/09/16 0640 12/09/16 0640 Results 24 hrs Laboratory Tests Test 12/08/16 20:25 12/09/16 06:40 Lactic Acid Level 1.4 White Blood Count 11.9 #H Red Blood Count 3.55 L Hemoglobin 10.2 L Hematocrit 31.6 L Mean Corpuscular Volume 89.0 Mean Corpuscular Hemoglobin 28.7 L Mean Corpuscular Hemoglobin Concent 32.3 Red Cell Distribution Width 18.7 H Platelet Count 165 # Mean Platelet Volume 13.5 H Neutrophils % 75.3 Lymphocytes % 15.9 Monocytes % 6.9 Eosinophils % 1.3 Basophils % 0.3 Nucleated Red Blood Cells % 0.0 Neutrophils # 9.0 H Lymphocytes # 1.9 Monocytes # 0.8 Eosinophils # 0.2 Basophils # 0.0 Nucleated Red Blood Cells # 0.0 Sodium Level 132 L Potassium Level 4.3 Chloride Level 90 #L Carbon Dioxide Level 36 H Anion Gap 10 # Blood Urea Nitrogen 37 H Creatinine 1.00 Glucose Level 125 Calcium Level 9.6 Medications Medications Current Medications Pantoprazole 40 mg 40 mg BID@06,18 IV Last administered on 12/09/16 17:20; Admin Dose 40 MG; Start 12/09/16 at 06:00 Cefepime HCl (Maxipime 1gm/50 ml (Pmx)) 50 ml @ 100 mls/hr Q12 IVPB Last administered on 12/09/16 10:08; Admin Dose 100 MLS/HR; Start 12/08/16 at 21:00 Acetaminophen (Tylenol Supp) 650 mg Q4H PRN [place] PAIN OR TEMP ABOVE 38C; Start at 20:30 Morphine Sulfate 2 mg 2 mg Q4H PRN IV PAIN; Start 12/08/16 at 20:30 Vancomycin HCl/ Sodium Chloride (Vancocin/NS) 250 ml @ 83.333 mls/ hr Q24H IVPB ; Start 12/09/16 at 20:00 Collagenase (Santyl) 1 applic DAILY TOP Last administered on 12/09/16 10:08; Admin Dose 1 APPLIC; Start 12/09/16 at 09:00 Collagenase 1 applic 1 applic PRN PRN TOP SOILED OR DISLODGED DRESSING; Start 12/09/16 at 04:30 Potassium Chloride/Dextrose/ Sod Cl (D5-NS + KCl 20 Meq) 1,000 ml @ 80 mls/hr [id number] IV Last administered on 12/09/16 17:21; Admin Dose 80 MLS/HR; Start at 17:00 MARIO ROWE December 09, 2016 19:05
[2016-12-09] MEDS: VANCOMYCIN 1.25 GM in SOD CHLORIDE 0.9% 250 ML IVPB SCH (20:23)
--- NOTE | 2016-12-09 20:40 | CONS ---
Date/Time of Note Date/Time of Note DATE: 12/09/16 TIME: 20:39 Assessment/Plan Assessment/Plan Chief Complaint/Hosp Course kindly asked to consult by Dr. Meeks. Emr reviewed. full note to follow. thank you Dr. Meeks. Problems: Consultation Date/Type/Reason Admit Date/Time December 08, 2016 at 12:01 Initial Consult Date Exam/Review of Systems Vital Signs Vitals Vital Signs Date Time Temp Pulse Resp B/P Pulse Ox O2 Delivery O2 Flow Rate FiO2 12/09/16 20:23 81 12/09/16 20:08 98.3 20 161/84 100 12/09/16 17:40 40 Intake and Output 12/08/16 12/08/16 12/09/16 15:00 23:00 07:00 Intake Total 125 ml 550 ml Output Total 800 ml Balance 125 ml -250 ml Results Result Diagram: 12/09/16 0640 12/09/16 0640 Results 24 hrs Laboratory Tests Test 12/09/16 06:40 White Blood Count 11.9 #H Red Blood Count 3.55 L Hemoglobin 10.2 L Hematocrit 31.6 L Mean Corpuscular Volume 89.0 Mean Corpuscular Hemoglobin 28.7 L Mean Corpuscular Hemoglobin Concent 32.3 Red Cell Distribution Width 18.7 H Platelet Count 165 # Mean Platelet Volume 13.5 H Neutrophils % 75.3 Lymphocytes % 15.9 Monocytes % 6.9 Eosinophils % 1.3 Basophils % 0.3 Nucleated Red Blood Cells % 0.0 Neutrophils # 9.0 H Lymphocytes # 1.9 Monocytes # 0.8 Eosinophils # 0.2 Basophils # 0.0 Nucleated Red Blood Cells # 0.0 Sodium Level 132 L Potassium Level 4.3 Chloride Level 90 #L Carbon Dioxide Level 36 H Anion Gap 10 # Blood Urea Nitrogen 37 H Creatinine 1.00 Glucose Level 125 Calcium Level 9.6 Medications Medications Current Medications Pantoprazole 40 mg 40 mg BID@06,18 IV Last administered on 12/09/16 17:20; Admin Dose 40 MG; Start 12/09/16 at 06:00 Cefepime HCl (Maxipime 1gm/50 ml (Pmx)) 50 ml @ 100 mls/hr Q12 IVPB Last administered on 12/09/16 10:08; Admin Dose 100 MLS/HR; Start 12/08/16 at 21:00 Acetaminophen (Tylenol Supp) 650 mg Q4H PRN [place] PAIN OR TEMP ABOVE 38C; Start at 20:30 Morphine Sulfate 2 mg 2 mg Q4H PRN IV PAIN; Start 12/08/16 at 20:30 Vancomycin HCl/ Sodium Chloride (Vancocin/NS) 250 ml @ 83.333 mls/ hr Q24H IVPB Last administered on 12/09/16 20:23; Admin Dose 83.333 MLS/HR; Start 06/17 at 20:00 Collagenase (Santyl) 1 applic DAILY TOP Last administered on 12/09/16 10:08; Admin Dose 1 APPLIC; Start 12/09/16 at 09:00 Collagenase 1 applic 1 applic PRN PRN TOP SOILED OR DISLODGED DRESSING; Start 12/09/16 at 04:30 Potassium Chloride/Dextrose/ Sod Cl (D5-NS + KCl 20 Meq) 1,000 ml @ 80 mls/hr [id number] IV Last administered on 12/09/16 17:21; Admin Dose 80 MLS/HR; Start at 17:00 MARIBELL SUN MD December 09, 2016 20:40
--- NOTE | 2016-12-09 22:57 | CONS ---
DATE OF ADMISSION: 12/08/2016 DATE OF CONSULTATION: TYPE OF CONSULTATION: Gastroenterology. Dear Dr. Akbar: Thank you for asking me to see Mr. Meeks in GI consultation. HISTORY OF PRESENT ILLNESS: The patient, as you know, is a 71-year-old white gentleman who at this time is admitted to the hospital from the residential because of possible upper GI bleeding. There was some history of hematemesis. He is tracheostomy dependent. He has got a G-tube in the place a few weeks ago. A couple of months ago upper endoscopy showed evidence of a large gastric ulcer at the site of the gastrostomy and apparently he had blood from that location and he seems to be under control, although at this time he is admitted because of recurrent history of vomiting blood. He lopez s multiple other medical problems including pneumonia, subacute subdural hematoma with chronic encep halopathy, COPD, hypertension, atrial fibrillation. MEDICATIONS: 1. Currently includes ferrous sulfate. 2. Amiodarone. 3. Lopressor. 4. Ultram. 5. . 6. Colace. 7. Protonix. 8. Vitamin C. PHYSICAL EXAMINATION: GENERAL: The patient is a 71-year-old white gentleman who at this time is very lethargic, is thin a nd cachectic. VITAL SIGNS: His pulse is 82, blood pressure is 159/76. CARDIOVASCULAR: Heart sounds well heard. He does have irregular heartbeat probably due to atrial f ibrillation. LUNGS: Clear. ABDOMEN: Showed a G-tube in the place. I aspirated the gastric contents and I did not get any bloo d out of the aspiration. Hemoglobin 10.2. The potassium 4.3, AST 149, ALT 234. CLINICAL IMPRESSION: Recurrent upper gastrointestinal bleeding, probably due to ulcer at the site o f the gastrostomy. Since he is not bleeding actively at this time, I would recommend to resume the G-tube feeding. Con tinue Protonix. Once again, doctor, thank you for this consultation. Dictated By: KATELYN FERRARI/MACK Conf#: [id number] DID#: [id number] CC: KATELYN SILVERMAN MD; MARLA AKBAR MD; SHAAN BUTT MD;*[facility]*
[2016-12-09] MEDS ORDERED: DIAZEPAM 5 MG/ML SYG IV PRN (23:00)
[2016-12-09] MEDS: MEROPENEM 1 GM/100 ML (PMX) 100 ML IVPB SCH (23:34)
[2016-12-10] VITALS (27 sets, daily range): BP systolic 156–178; BP diastolic 71–103; PULSE 80–113; RESP 17–28
[2016-12-10] MEDS: LEVOFLOXACIN 500MG/D5W (PMX) 100 ML IVPB SCH ×2 (00:20→22:48)
[2016-12-10] MEDS: ALBUTEROL 18 GM INHALER INH SCH ×4 (01:59→19:32)
[2016-12-10] MEDS: IPRATROPIUM (HFA) 12.9 GM INHALER INH SCH ×4 (02:00→19:32)
[2016-12-10] MEDS: PANTOPRAZOLE 40 MG INJ IV SCH ×2 (05:16→16:54)
[2016-12-10] MEDS: D5-NS + KCL 20 MEQ 1,000 ML IV SCH ×2 (05:16→14:39)
[2016-12-10 07:12] LABS: ADD SCAN DIFF NO
[2016-12-10 07:19] LABS: ABNORMAL IP MESSAGE 1; BASOPHILS % 0.2 % (0.0-2.0); EOSINOPHILS # 0.4 10^3/ul (0.0-0.5); EOSINOPHILS % 4.8 % (0.0-7.0); HEMATOCRIT 30.7 % (42.0-52.0); HEMOGLOBIN 9.8 g/dl (14.0-18.0); LYMPHOCYTES # 1.1 10^3/ul (0.8-2.9); LYMPHOCYTES % 12.8 % (15.0-51.0); MEAN CORPUSCULAR HEMOGLOBIN 28.7 pg (29.0-33.0); MEAN CORPUSCULAR HGB CONC 31.9 g/dl (32.0-37.0); MEAN PLATELET VOLUME 13.3 fl (7.4-10.4); MONOCYTE # 1.1 10^3/ul (0.3-0.9); MONOCYTES % 12.9 % (0.0-11.0); NEUTROPHIL # 6.1 10^3/ul (1.6-7.5); PLATELET COUNT 225 10^3/UL (140-415); RED BLOOD COUNT 3.41 10^6/ul (4.70-6.10); RED CELL DISTRIBUTION WIDTH 18.4 % (11.5-14.5); WHITE BLOOD COUNT 8.8 10^3/ul (4.8-10.8)
[2016-12-10 08:16] LABS: CALCIUM 9.2 mg/dl (8.4-10.2); CREATININE 0.91 mg/dl (0.61-1.24); POTASSIUM 3.5 mmol/L (3.5-5.1)
[2016-12-10] MEDS: MEROPENEM 1 GM/100 ML (PMX) 100 ML IVPB SCH ×2 (08:42→22:48)
[2016-12-10] MEDS: COLLAGENASE 30 GM TUBE TOP SCH (08:43)
--- NOTE | 2016-12-10 15:14 | CONS ---
DATE OF ADMISSION: 12/08/2016 DATE OF CONSULTATION: 12/10/2016 TYPE OF CONSULTATION: Pulmonary REASON FOR CONSULT: Mechanical ventilation. HISTORY OF PRESENT ILLNESS: This is a 71-year-old gentleman with multiple medical problems includin g traumatic brain injury, hypertension, hyperlipidemia, chronic mechanical ventilation, transferred from [facility] for hematemesis and a fever of 101 with subsequent tachycardia. The gretchen ent had mildly elevated lactic acid. Received broad-spectrum antibiotics, volume resuscitation. He was seen by Dr. Pryor from for evaluation for possible colonoscopy. PAST MEDICAL HISTORY: Includes: 1. Vent-dependent respiratory failure. 2. Encephalopathy. 3. Subdural hematoma. 4. Dysphagia with G-tube. MEDICATIONS: Per chart. ALLERGIES: NONE. SOCIAL HISTORY: Nonsmoker, no alcohol, no history of drug use. FAMILY HISTORY: Noncontributory. REVIEW OF SYSTEMS: A 12-point review of systems unable to be performed. PHYSICAL EXAMINATION: GENERAL: Chronically ill appearing gentleman, appears comfortable at rest, no acute distress. VITAL SIGNS: Currently afebrile, temperature 98, pulse is 100, blood pressure 170/71, O2 saturation 96% on 40% FIO2. NECK: Trach site clean and intact. CARDIAC: S1, S2, no added sounds or murmurs. CHEST: Diminished air entry bilaterally. ABDOMEN: Soft, nontender. No guarding or rebound. EXTREMITIES: No cyanosis, clubbing, edema. NEUROLOGIC: Generalized weakness. LABORATORY DATA: White count 8.8, hemoglobin 9.8, platelets 225. BUN 27, creatinine 0.91. INR 1.1 9. Chest x-ray was reviewed, shows bibasilar atelectasis. IMPRESSION: 1. Ventilator-dependent respiratory failure. 2. Possible gastrointestinal bleed. 3. History of traumatic brain injury with subdural hematoma. 4. History of chronic encephalopathy. 5. History of dysphagia with G-tube. PLAN: 1. Continue mechanical ventilation. 2. GI evaluation. 3. Continue PPI. 4. DVT and GI prophylaxis. 5. Consider addressing code status. Dictated By: YU JONES/MACK Conf#: [id number] DID#: [id number]
[2016-12-10] MEDS ORDERED: BARIUM SULF 2% 450 ML BTL (BERRY SMOOTHIE) PO ONE (16:30)
[2016-12-10] MEDS: ONDANSETRON 4 MG INJ IV PRN (16:55)
[2016-12-10] MEDS ORDERED: METOPROLOL 5 MG INJ IV PRN (17:00)
--- NOTE | 2016-12-10 18:56 | PN ---
Date/Time of Note Date/Time of Note DATE: 12/10/16 TIME: 18:49 Assessment/Plan VTE Prophylaxis VTE Prophylaxis Intervention: SCD's Lines/Catheters IV C[facility]ter Type (from [facility]): Peripheral IV Urinary Cath still in place: Yes Reason Cath still needed: urinary retention Assessment/Plan Chief Complaint/Hosp Course - Upper gastrointestinal bleed. Continue Protonix. Dr. Pryor is following in gastric gastroenterology consultation. - Healthcare facility-acquired pneumonia. Continue antibiotics. Dr. Tang is following an infection disease consultation. 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 - Ventilator dependent respiratory failure with tracheostomy. Dr. Saenz is following in pulmonology consultation. - Chronic obstructive pulmonary disease. - Hypertension. -Dysphagia with PEG. -Chronic Chaudhari catheter. -Colostomy -Bedbound status. Further recommendations based on clinical course. Plan of care discussed with Dr. Meeks. Problems: Subjective 24 Hr Interval Summary Free Text/Dictation Patient does not tolerate G-tube feeding, emesis 2, continue Zofran, stop feeding, continue IV fluids. Exam/Review of Systems Vital Signs Vitals Vital Signs Date Time Temp Pulse Resp B/P Pulse Ox O2 Delivery O2 Flow Rate FiO2 12/10/16 17:11 107 26 96 40 12/10/16 17:00 156/101 12/10/16 16:09 98.8 Intake and Output 12/09/16 12/09/16 12/10/16 15:00 23:00 07:00 Intake Total 50 ml 1116.663 ml 1198.34 ml Output Total 600 ml 500 ml Balance 50 ml 516.663 ml 698.34 ml Exam Constitutional: frail, non-verbal Psych: confusion Head: normocephalic Eyes: nl conjunctiva ENMT: nl external ears & nose Neck: other (Tracheostomy), supple Respiratory: diminished breath sounds Cardiovascular: other (Atrial arrhythmia) Gastrointestinal: non-tender, other (G-tube, colostomy), soft Genitourinary - Male: other (Chaudhari) Musculoskeletal: other (Contracted) Extremities: normal pulses Neurological: other (Chronic encephalopathy) Skin: other (Wounds) Results Result Diagram: 12/10/16 0635 12/10/16 0635 Results 24 hrs Laboratory Tests Test 12/10/16 06:35 White Blood Count 8.8 # Red Blood Count 3.41 L Hemoglobin 9.8 L Hematocrit 30.7 L Mean Corpuscular Volume 90.0 Mean Corpuscular Hemoglobin 28.7 L Mean Corpuscular Hemoglobin Concent 31.9 L Red Cell Distribution Width 18.4 H Platelet Count 225 # Mean Platelet Volume 13.3 H Neutrophils % 69.0 Lymphocytes % 12.8 L Monocytes % 12.9 H Eosinophils % 4.8 Basophils % 0.2 Nucleated Red Blood Cells % 0.0 Neutrophils # 6.1 Lymphocytes # 1.1 Monocytes # 1.1 H Eosinophils # 0.4 Basophils # 0.0 Nucleated Red Blood Cells # 0.0 Sodium Level 134 L Potassium Level 3.5 Chloride Level 95 L Carbon Dioxide Level 31 Anion Gap 12 Blood Urea Nitrogen 27 H Creatinine 0.91 Glucose Level 125 Calcium Level 9.2 Medications Medications Current Medications Pantoprazole (Protonix Iv) 40 mg BID@06,18 IV Last administered on 12/10/16 16 :54; Admin Dose 40 MG; Start 12/09/16 at 06:00 Acetaminophen (Tylenol Supp) 650 mg Q4H PRN [place] PAIN OR TEMP ABOVE 38C; Start at 20:30 Morphine Sulfate 2 mg 2 mg Q4H PRN IV PAIN; Start 12/08/16 at 20:30 Vancomycin HCl/ Sodium Chloride (Vancocin/NS) 250 ml @ 83.333 mls/ hr Q24H IVPB Last administered on 12/09/16 20:23; Admin Dose 83.333 MLS/HR; Start 06/17 at 20:00 Collagenase (Santyl) 1 applic DAILY TOP Last administered on 12/10/16 08:43; Admin Dose 1 APPLIC; Start 12/09/16 at 09:00 Collagenase 1 applic 1 applic PRN PRN TOP SOILED OR DISLODGED DRESSING; Start 12/09/16 at 04:30 Potassium Chloride/Dextrose/ Sod Cl 1,000 ml @ 80 mls/hr [id number] IV Last administered on 12/10/16 14:39; Admin Dose 80 MLS/HR; Start 12/09/16 at 17:00 Meropenem 100 ml @ 200 mls/hr Q12 IVPB Last administered on 12/10/16 08:42; Admin Dose 200 MLS/HR; Start 12/09/16 at 22:30 Levofloxacin/ Dextrose (Levaquin 500mg/ D5W 100 ml (Pmx)) 100 ml @ 100 mls/hr Q24H IVPB Last administered on 12/10/16 00:20; Admin Dose 100 MLS/HR; Start at 22:00 Diazepam (Valium) 5 mg Q12H PRN IV ANXIETY Last administered on 12/09/16 23:41 ; Admin Dose 5 MG; Start 12/09/16 at 23:00 Ondansetron HCl (Zofran Inj) 4 mg Q4H PRN IV NAUSEA AND/OR VOMITING Last administered on 12/10/16 16:55; Admin Dose 4 MG; Start 12/10/16 at 17:00 Metoprolol Tartrate (Lopressor) 5 mg Q6H PRN IV SBP >160 or HR > 120; Start 07/17 at 17:00 Hydralazine HCl (Apresoline) 20 mg Q6H PRN IV SBP > 160; Start 12/10/16 at 17: 00 AMY MORAN December 10, 2016 18:56
[2016-12-10] MEDS: VANCOMYCIN 1.25 GM in SOD CHLORIDE 0.9% 250 ML IVPB SCH (20:44)
--- NOTE | 2016-12-10 20:49 | CONS ---
Date/Time of Note Date/Time of Note DATE: 12/10/16 TIME: 10:42 Assessment/Plan Assessment/Plan Chief Complaint/Hosp Course 1. Severe Sepsis likely 2/2 to hcap/vap 2. cellulitis 3. hx of brain injury, subdural hematoma, chronic enceph, resp failure 4. multiple chronic medical problems 5. colonization with mdr organisms R: cont. vanco/cefepime/levaquin f/u casanova cx serial cxr procalc Problems: Consultation Date/Type/Reason Admit Date/Time December 08, 2016 at 12:01 Date of Consultation: December 10, 2016 Reason for Consultation abx recs Hx of Present Illness 71 yo male well known to our service with martinez of brain injury, chronic enceph, chronic resp failure, subdural hematoma, MDR organisms, admitted from [facility] for Sepsis. Hx is obtained from chart review. Patient is unable ot provide any hx at this time. Constitutional: requiring IVF, requiring O2 Psychological: confusion Past Medical History as per hpi Social History Smoking Status: Unknown if ever smoked Exam/Review of Systems Vital Signs Vitals Vital Signs Date Time Temp Pulse Resp B/P Pulse Ox O2 Delivery O2 Flow Rate FiO2 12/10/16 19:54 97.2 99 18 168/99 98 12/10/16 19:33 40 Intake and Output 12/09/16 12/09/16 12/10/16 15:00 23:00 07:00 Intake Total 50 ml 1116.663 ml 1198.34 ml Output Total 600 ml 500 ml Balance 50 ml 516.663 ml 698.34 ml Exam Constitutional: non-verbal Psych: confusion, depression Eyes: EOMI, nl conjunctiva ENMT: nl external ears & nose, nl lips & teeth, nl nasal mucosa & septum Respiratory: clear to auscultation, normal air movement Results Result Diagram: 12/10/16 0635 12/10/16 0635 Results 24 hrs Laboratory Tests Test 12/10/16 06:35 White Blood Count 8.8 # Red Blood Count 3.41 L Hemoglobin 9.8 L Hematocrit 30.7 L Mean Corpuscular Volume 90.0 Mean Corpuscular Hemoglobin 28.7 L Mean Corpuscular Hemoglobin Concent 31.9 L Red Cell Distribution Width 18.4 H Platelet Count 225 # Mean Platelet Volume 13.3 H Neutrophils % 69.0 Lymphocytes % 12.8 L Monocytes % 12.9 H Eosinophils % 4.8 Basophils % 0.2 Nucleated Red Blood Cells % 0.0 Neutrophils # 6.1 Lymphocytes # 1.1 Monocytes # 1.1 H Eosinophils # 0.4 Basophils # 0.0 Nucleated Red Blood Cells # 0.0 Sodium Level 134 L Potassium Level 3.5 Chloride Level 95 L Carbon Dioxide Level 31 Anion Gap 12 Blood Urea Nitrogen 27 H Creatinine 0.91 Glucose Level 125 Calcium Level 9.2 Medications Medications Current Medications Pantoprazole (Protonix Iv) 40 mg BID@06,18 IV Last administered on 12/10/16 16 :54; Admin Dose 40 MG; Start 12/09/16 at 06:00 Acetaminophen (Tylenol Supp) 650 mg Q4H PRN [place] PAIN OR TEMP ABOVE 38C; Start at 20:30 Morphine Sulfate 2 mg 2 mg Q4H PRN IV PAIN; Start 12/08/16 at 20:30 Vancomycin HCl/ Sodium Chloride (Vancocin/NS) 250 ml @ 83.333 mls/ hr Q24H IVPB Last administered on 12/09/16 20:23; Admin Dose 83.333 MLS/HR; Start 06/17 at 20:00 Collagenase (Santyl) 1 applic DAILY TOP Last administered on 12/10/16 08:43; Admin Dose 1 APPLIC; Start 12/09/16 at 09:00 Collagenase 1 applic 1 applic PRN PRN TOP SOILED OR DISLODGED DRESSING; Start 12/09/16 at 04:30 Potassium Chloride/Dextrose/ Sod Cl 1,000 ml @ 80 mls/hr [id number] IV Last administered on 12/10/16 14:39; Admin Dose 80 MLS/HR; Start 12/09/16 at 17:00 Meropenem 100 ml @ 200 mls/hr Q12 IVPB Last administered on 12/10/16 08:42; Admin Dose 200 MLS/HR; Start 12/09/16 at 22:30 Levofloxacin/ Dextrose (Levaquin 500mg/ D5W 100 ml (Pmx)) 100 ml @ 100 mls/hr Q24H IVPB Last administered on 12/10/16 00:20; Admin Dose 100 MLS/HR; Start at 22:00 Diazepam (Valium) 5 mg Q12H PRN IV ANXIETY Last administered on 12/09/16 23:41 ; Admin Dose 5 MG; Start 12/09/16 at 23:00 Ondansetron HCl (Zofran Inj) 4 mg Q4H PRN IV NAUSEA AND/OR VOMITING Last administered on 12/10/16 16:55; Admin Dose 4 MG; Start 12/10/16 at 17:00 Metoprolol Tartrate (Lopressor) 5 mg Q6H PRN IV SBP >160 or HR > 120; Start 07/17 at 17:00 Hydralazine HCl (Apresoline) 20 mg Q6H PRN IV SBP > 160; Start 12/10/16 at 17: 00 MARIBELL SUN MD December 10, 2016 20:49
[2016-12-11] VITALS (24 sets, daily range): BP systolic 136–169; BP diastolic 81–93; PULSE 88–100; RESP 16–23
--- NOTE | 2016-12-11 00:35 | RADRPT ---
PROCEDURE: CT abdomen and pelvis without contrast. CLINICAL INDICATION: Vomiting TECHNIQUE: CT scan of the abdomen and pelvis without contrast was performed. Sagittal and coronal reformatted images were obtained from the axial source images. CTDI = 11.58 mGy; DLP = 738.95 mGy-c m COMPARISON: CT 09/23/2016. Small bowel follow-through series 09/27/2016 FINDINGS: Visualized lower thorax: Emphysema with worsening bilateral lower lobe interstitial infiltrates.. There is no evidence for pleural effusion. Liver, gallbladder, pancreas and spleen: The liver is normal and size, contour and attenuation. Th ere is no evidence for a liver mass or ductal dilatation. The gallbladder is unremarkable. No comm on bile duct abnormality is demonstrated. The pancreas is unremarkable. The spleen is normal in si ze. Adrenal glands and genitourinary system: The adrenal glands are normal bilaterally. The kidneys are normal and size, contour and attenuation with no evidence for masses, calculi or hydronephrosis. T he ureters are unremarkable. The urinary bladder is contracted around a Chaudhari catheter difficult to evaluate, gas is present within the bladder lumen. The prostate gland is normal in size. The visua lized scrotum shows no abnormality. Gastrointestinal system: Gastrostomy tube appears extraluminal Gastric distension is similar to the prior examination. Dilated loops of small bowel are seen throughout with gas/fluid levels, the cruz yogesh of small bowel measuring up to 6 cm. The ileum is predominately collapsed, the pattern concerni ng for a partial small bowel obstruction or severe ileus similar to the previous examination. No di screte transition point is visualized. Left anterior abdominal wall stoma is again noted. There is n o evidence of pneumatosis. The appendix is not visualized but there is no stranding in the right low er quadrant to suggest appendicitis. Dense fecal debris is seen throughout most of the colon consis tent with constipation. There is no evidence for colitis or diverticulitis. Peritoneum, retroperitoneum, lymph nodes and vessels: The abdominal aorta is normal in caliber. The re is moderate aortic and iliac system atherosclerotic calcification. The inferior vena cava is unr emarkable. There is no evidence for adenopathy or mass. Trace amount of pelvic ascites is present. There is no upper abdominal ascites or pneumoperitoneum. Osseous structures and musculoskeletal findings: Scoliosis and multilevel spondylosis of the lumbar spine is stable. There is no acute osseous abnormality, lytic or blastic lesion. No muscular abno rmality or soft tissue pathology is present. RPTAT:HJJR IMPRESSION: 1. Pattern concerning for recurrent small bowel obstruction similar to the study of 09/23/2016, eit her partial or distal complete, severe adynamic ileus is a possibility. Follow-up evaluation is rec ommended. 2. Stoma along the left intra-abdominal wall is again noted. 3. Trace amount of pelvic ascites without pneumoperitoneum, mesenteric vascular engorgement or uppe r abdominal ascites. 4. Position of the gastrostomy tube possibly extraluminal interposed between the anterior gastric w all in the peritoneal cavity. Physician Carlos Date Time Electronically viewed and signed by Pedrito Sharif Physician on 12/11/2016 00:35 JR/
[2016-12-11] MEDS: ALBUTEROL 18 GM INHALER INH SCH ×4 (01:07→20:00)
[2016-12-11] MEDS: IPRATROPIUM (HFA) 12.9 GM INHALER INH SCH ×4 (01:07→20:00)
[2016-12-11] MEDS: D5-NS + KCL 20 MEQ 1,000 ML IV SCH ×3 (04:27→19:36)
[2016-12-11] MEDS: PANTOPRAZOLE 40 MG INJ IV SCH ×2 (05:34→18:00)
[2016-12-11 07:08] LABS: ADD SCAN DIFF NO
[2016-12-11 07:14] LABS: ABNORMAL IP MESSAGE 1; BASOPHILS % 0.2 % (0.0-2.0); EOSINOPHILS % 0.1 % (0.0-7.0); HEMATOCRIT 33.3 % (42.0-52.0); HEMOGLOBIN 10.6 g/dl (14.0-18.0); LYMPHOCYTES # 1.3 10^3/ul (0.8-2.9); LYMPHOCYTES % 6.8 % (15.0-51.0); MEAN CORPUSCULAR HEMOGLOBIN 28.7 pg (29.0-33.0); MEAN CORPUSCULAR HGB CONC 31.8 g/dl (32.0-37.0); MEAN CORPUSCULAR VOLUME 90.2 fl (82.0-101.0); MONOCYTE # 0.9 10^3/ul (0.3-0.9); MONOCYTES % 4.4 % (0.0-11.0); NEUTROPHIL # 17.1 10^3/ul (1.6-7.5); NEUTROPHILS % 88.1 % (39.0-77.0); PLATELET COUNT 222 10^3/UL (140-415); RED BLOOD COUNT 3.69 10^6/ul (4.70-6.10); RED CELL DISTRIBUTION WIDTH 18.4 % (11.5-14.5); WHITE BLOOD COUNT 19.4 10^3/ul (4.8-10.8)
[2016-12-11 07:32] LABS: POTASSIUM 3.8 mmol/L (3.5-5.1)
[2016-12-11 07:35] LABS: CREATININE 0.9 mg/dl (0.61-1.24)
[2016-12-11 07:36] LABS: CALCIUM 9.6 mg/dl (8.4-10.2)
[2016-12-11] MEDS: COLLAGENASE 30 GM TUBE TOP SCH (09:00)
[2016-12-11] MEDS: MEROPENEM 1 GM/100 ML (PMX) 100 ML IVPB SCH ×2 (09:03→19:47)
--- NOTE | 2016-12-11 10:55 | PN ---
Date/Time of Note Date/Time of Note DATE: 12/11/16 TIME: 10:54 Assessment/Plan VTE Prophylaxis VTE Prophylaxis Intervention: other Lines/Catheters Urinary Cath still in place: Yes Reason Cath still needed: skin wounds contaminated by urine Assessment/Plan Chief Complaint/Hosp Course - Upper gastrointestinal bleed. Continue Protonix. Dr. Pryor is following in gastric gastroenterology consultation. - Healthcare facility-acquired pneumonia. Continue antibiotics. Dr. Tang is following an infection disease consultation. 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 - Ventilator dependent respiratory failure with tracheostomy. Dr. Saenz is following in pulmonology consultation. - Chronic obstructive pulmonary disease. - Hypertension. -Dysphagia with PEG. -Chronic Chaudhari catheter. -Colostomy -Bedbound status. Problems: Subjective 24 Hr Interval Summary Free Text/Dictation Patient resting comfortably Exam/Review of Systems Vital Signs Vitals Vital Signs Date Time Temp Pulse Resp B/P Pulse Ox O2 Delivery O2 Flow Rate FiO2 12/11/16 08:27 94 12/11/16 08:21 20 98 40 12/11/16 07:44 99.2 136/81 Intake and Output 12/10/16 12/10/16 12/11/16 15:00 23:00 07:00 Intake Total 100 ml 990 ml 770 ml Output Total 1000 ml 600 ml Balance 100 ml -10 ml 170 ml Exam Constitutional: well developed Head: atraumatic, normocephalic Neck: supple Respiratory: clear to auscultation Cardiovascular: regular rate and rhythm Gastrointestinal: non-tender, soft Extremities: normal pulses Results Result Diagram: 12/11/16 0618 12/11/16 0618 Results 24 hrs Laboratory Tests Test 12/11/16 06:18 White Blood Count 19.4 #H Red Blood Count 3.69 L Hemoglobin 10.6 L Hematocrit 33.3 L Mean Corpuscular Volume 90.2 Mean Corpuscular Hemoglobin 28.7 L Mean Corpuscular Hemoglobin Concent 31.8 L Red Cell Distribution Width 18.4 H Platelet Count 222 Mean Platelet Volume 13.0 H Neutrophils % 88.1 H Lymphocytes % 6.8 L Monocytes % 4.4 Eosinophils % 0.1 Basophils % 0.2 Nucleated Red Blood Cells % 0.0 Neutrophils # 17.1 H Lymphocytes # 1.3 Monocytes # 0.9 Eosinophils # 0.0 Basophils # 0.0 Nucleated Red Blood Cells # 0.0 Sodium Level 138 Potassium Level 3.8 Chloride Level 97 Carbon Dioxide Level 30 Anion Gap 15 Blood Urea Nitrogen 25 H Creatinine 0.90 Glucose Level 133 Calcium Level 9.6 Medications Medications Current Medications Pantoprazole (Protonix Iv) 40 mg BID@06,18 IV Last administered on 12/11/16 05 :34; Admin Dose 40 MG; Start 12/09/16 at 06:00 Acetaminophen (Tylenol Supp) 650 mg Q4H PRN [place] PAIN OR TEMP ABOVE 38C; Start at 20:30 Morphine Sulfate 2 mg 2 mg Q4H PRN IV PAIN; Start 12/08/16 at 20:30 Vancomycin HCl/ Sodium Chloride (Vancocin/NS) 250 ml @ 83.333 mls/ hr Q24H IVPB Last administered on 12/10/16 20:44; Admin Dose 83.333 MLS/HR; Start 06/17 at 20:00 Collagenase (Santyl) 1 applic DAILY TOP Last administered on 12/10/16 08:43; Admin Dose 1 APPLIC; Start 12/09/16 at 09:00 Collagenase 1 applic 1 applic PRN PRN TOP SOILED OR DISLODGED DRESSING; Start 12/09/16 at 04:30 Potassium Chloride/Dextrose/ Sod Cl 1,000 ml @ 80 mls/hr [id number] IV Last administered on 12/11/16 05:35; Admin Dose 80 MLS/HR; Start 12/09/16 at 17:00 Meropenem 100 ml @ 200 mls/hr Q12 IVPB Last administered on 12/11/16 09:03; Admin Dose 200 MLS/HR; Start 12/09/16 at 22:30 Levofloxacin/ Dextrose (Levaquin 500mg/ D5W 100 ml (Pmx)) 100 ml @ 100 mls/hr Q24H IVPB Last administered on 12/10/16 22:48; Admin Dose 100 MLS/HR; Start at 22:00 Diazepam (Valium) 5 mg Q12H PRN IV ANXIETY Last administered on 12/09/16 23:41 ; Admin Dose 5 MG; Start 12/09/16 at 23:00 Ondansetron HCl (Zofran Inj) 4 mg Q4H PRN IV NAUSEA AND/OR VOMITING Last administered on 12/10/16 16:55; Admin Dose 4 MG; Start 12/10/16 at 17:00 Metoprolol Tartrate (Lopressor) 5 mg Q6H PRN IV SBP >160 or HR > 120 Last administered on 12/10/16 23:14; Admin Dose 5 MG; Start 12/10/16 at 17:00 Hydralazine HCl (Apresoline) 20 mg Q6H PRN IV SBP > 160; Start 12/10/16 at 17: 00 OLI ZUNIGA December 11, 2016 10:55
--- NOTE | 2016-12-11 13:36 | CONS ---
Date/Time of Note Date/Time of Note DATE: 12/11/16 TIME: 13:33 Assessment/Plan Assessment/Plan Chief Complaint/Hosp Course a] dysphagia plan needs new peg next week Problems: Consultation Date/Type/Reason Admit Date/Time December 08, 2016 at 12:01 Initial Consult Date 12/10/16 24 HR Interval Summary Free Text/Dictation h/o vomitting ct abd t gube extra luminal hence g tube removed Exam/Review of Systems Vital Signs Vitals Vital Signs Date Time Temp Pulse Resp B/P Pulse Ox O2 Delivery O2 Flow Rate FiO2 12/11/16 13:14 91 17 99 40 12/11/16 11:38 98.3 161/93 Intake and Output 12/10/16 12/10/16 12/11/16 15:00 23:00 07:00 Intake Total 100 ml 990 ml 770 ml Output Total 1000 ml 600 ml Balance 100 ml -10 ml 170 ml Exam o/e lethargic abd soft i removed g tube Results Result Diagram: 12/11/16 0618 12/11/16 0618 Results 24 hrs Laboratory Tests Test 12/11/16 06:18 White Blood Count 19.4 #H Red Blood Count 3.69 L Hemoglobin 10.6 L Hematocrit 33.3 L Mean Corpuscular Volume 90.2 Mean Corpuscular Hemoglobin 28.7 L Mean Corpuscular Hemoglobin Concent 31.8 L Red Cell Distribution Width 18.4 H Platelet Count 222 Mean Platelet Volume 13.0 H Neutrophils % 88.1 H Lymphocytes % 6.8 L Monocytes % 4.4 Eosinophils % 0.1 Basophils % 0.2 Nucleated Red Blood Cells % 0.0 Neutrophils # 17.1 H Lymphocytes # 1.3 Monocytes # 0.9 Eosinophils # 0.0 Basophils # 0.0 Nucleated Red Blood Cells # 0.0 Sodium Level 138 Potassium Level 3.8 Chloride Level 97 Carbon Dioxide Level 30 Anion Gap 15 Blood Urea Nitrogen 25 H Creatinine 0.90 Glucose Level 133 Calcium Level 9.6 Medications Medications Current Medications Pantoprazole (Protonix Iv) 40 mg BID@06,18 IV Last administered on 12/11/16t 05 :34; Admin Dose 40 MG; Start 12/09/16 at 06:00 Acetaminophen (Tylenol Supp) 650 mg Q4H PRN [place] PAIN OR TEMP ABOVE 38C; Start at 20:30 Morphine Sulfate 2 mg 2 mg Q4H PRN IV PAIN; Start 12/08/16 at 20:30 Vancomycin HCl/ Sodium Chloride (Vancocin/NS) 250 ml @ 83.333 mls/ hr Q24H IVPB Last administered on 12/10/16 20:44; Admin Dose 83.333 MLS/HR; Start 06/17 at 20:00 Collagenase (Santyl) 1 applic DAILY TOP Last administered on 12/10/16 08:43; Admin Dose 1 APPLIC; Start 12/09/16 at 09:00 Collagenase 1 applic 1 applic PRN PRN TOP SOILED OR DISLODGED DRESSING; Start 12/09/16 at 04:30 Potassium Chloride/Dextrose/ Sod Cl 1,000 ml @ 80 mls/hr [id number] IV Last administered on 12/11/16 05:35; Admin Dose 80 MLS/HR; Start 12/09/16 at 17:00 Meropenem 100 ml @ 200 mls/hr Q12 IVPB Last administered on 12/11/16 09:03; Admin Dose 200 MLS/HR; Start 12/09/16 at 22:30 Levofloxacin/ Dextrose (Levaquin 500mg/ D5W 100 ml (Pmx)) 100 ml @ 100 mls/hr Q24H IVPB Last administered on 12/10/16 22:48; Admin Dose 100 MLS/HR; Start at 22:00 Diazepam (Valium) 5 mg Q12H PRN IV ANXIETY Last administered on 12/09/16 23:41 ; Admin Dose 5 MG; Start 12/09/16 at 23:00 Ondansetron HCl (Zofran Inj) 4 mg Q4H PRN IV NAUSEA AND/OR VOMITING Last administered on 12/10/16 16:55; Admin Dose 4 MG; Start 12/10/16 at 17:00 Metoprolol Tartrate (Lopressor) 5 mg Q6H PRN IV SBP >160 or HR > 120 Last administered on 12/10/16 23:14; Admin Dose 5 MG; Start 12/10/16 at 17:00 Hydralazine HCl (Apresoline) 20 mg Q6H PRN IV SBP > 160; Start 12/10/16 at 17: 00 KATELYN SILVERMAN MD December 11, 2016 13:36
[2016-12-11 15:37] LABS: ADD UMIC YES; URINE BILIRUBIN (Dip) NEGATIVE (NEGATIVE); URINE BLOOD (Dip) 1+ (NEGATIVE); URINE COLOR LT. YELLOW (YELLOW); URINE GLUCOSE (Dip) NEGATIVE (NEGATIVE); URINE KETONES (Dip) NEGATIVE (NEGATIVE); URINE LEUKOCYTE ESTERASE (Dip) 3+ (NEGATIVE); URINE NITRITE (Dip) POSITIVE (NEGATIVE); URINE TOTAL PROTEIN (Dip) TRACE (NEGATIVE); URINE UROBILINOGEN (Dip) 0.2 E.U./dL (0.1-1.0)
[2016-12-11 15:47] LABS: SQUAMOUS EPITHELIAL CELL,UR FEW
[2016-12-11 15:48] LABS: BACTERIA,URINE MANY
--- NOTE | 2016-12-11 17:31 | RADRPT ---
PROCEDURE: XR Chest. CLINICAL INDICATION: Nasogastric tube placement TECHNIQUE: Single frontal chest x-ray. COMPARISON: None. FINDINGS: Nasogastric tube tip is in the distal esophagus. Tracheostomy tube remains in place. Hazy bibasila r pulmonary opacities are again noted, grossly stable. No pneumothorax is identified. Cardiomedias tinal silhouette is stable in appearance. Aortic atherosclerotic calcification is noted. The osseo us structures are unremarkable. IMPRESSION: 1. Nasogastric tube tip is in the distal esophagus - approximately 10 cm tube advancement is recomm ended. 2. Hazy bibasilar pulmonary opacities are again noted, grossly stable, possibly atelectasis, pneumo jordon and/or mild pleural effusions. 3. Tracheostomy tube remains in place. RPTAT: QQ .David Wiley MD, Date Time Electronically viewed and signed by .Dvaid Wiley MD, on 12/11/2016 17:30 .R/
--- NOTE | 2016-12-11 19:31 | CONS ---
KO LOVING HAM CLERK 12/11/16 1931: Date/Time of Note Date/Time of Note DATE: 12/11/16 TIME: 19:28 Assessment/Plan Assessment/Plan Chief Complaint/Hosp Course - Severe sepsis due to HCAP - HCAP/VAP due to GNR (2 species) - UTI due to GNR related to chronic indwelling Vincent - multiple pressure ulcer with wound cx on right thigh growing staph aureus, staph species, and GNR - colonization with MDR organisms - UGIB - Hx SDH with chronic encephalopathy - VDRF s/p trach - COPD - HTN - Intermittent atrial tachycardia and atrial fibrillation with preserved EF - h/o SBO/ileus/high residuals with probable gastroparesis per GI - h/o aspiration PNA and HCAP- respiratory culture on 09/20/16 growing Acinetobacter, Pseudomonas, and Proteus - h/o MRSA in urine - h/o GIB in the past - 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 the wound culture grew carbapenemase producing kleb, enterococci and pseudo - Dysphagia s/p EGD and new G tube placement 09/15/2016 - h/o infection of wound of RLE due to pseudomonas. 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 Godfrey Problems: Consultation Date/Type/Reason Admit Date/Time December 08, 2016 at 12:01 Initial Consult Date 12/09/16 Type of Consultation: Infectious Disease Referring Provider: MARLA AKBAR MD 24 HR Interval Summary Free Text/Dictation Pt had multiple episodes of emesis yesterday, G tube was removed today ( extraluminal per CT), and NGT was placed; ostomy bag placed on former GT site due increased leakage per RN Jen. Unable to perform ROS d/t chronic encephalopathy Exam/Review of Systems Vital Signs Vitals Vital Signs Date Time Temp Pulse Resp B/P Pulse Ox O2 Delivery O2 Flow Rate FiO2 12/11/16 17:47 100 23 99 40 12/11/16 15:23 98.3 160/86 Intake and Output 12/10/16 12/10/16 12/11/16 15:00 23:00 07:00 Intake Total 100 ml 990 ml 770 ml Output Total 1000 ml 600 ml Balance 100 ml -10 ml 170 ml Exam Constitutional: frail, non-verbal, other (chronically debilitated) Head: normocephalic Eyes: nl sclera Neck: other (trach with vent) Respiratory: diminished breath sounds Cardiovascular: regular rate and rhythm Gastrointestinal: bowel sounds (present), other (NGT clamped; ostomy bag over old GT site with greenish output, colostomy intact), soft Genitourinary - Male: other (vincent cath present) Extremities: other (contracted) Skin: other (wounds- see nurse notes for details) Results Result Diagram: 12/11/16 0618 12/11/16 0618 Results 24 hrs Laboratory Tests Test 12/11/16 06:18 White Blood Count 19.4 #H Red Blood Count 3.69 L Hemoglobin 10.6 L Hematocrit 33.3 L Mean Corpuscular Volume 90.2 Mean Corpuscular Hemoglobin 28.7 L Mean Corpuscular Hemoglobin Concent 31.8 L Red Cell Distribution Width 18.4 H Platelet Count 222 Mean Platelet Volume 13.0 H Neutrophils % 88.1 H Lymphocytes % 6.8 L Monocytes % 4.4 Eosinophils % 0.1 Basophils % 0.2 Nucleated Red Blood Cells % 0.0 Neutrophils # 17.1 H Lymphocytes # 1.3 Monocytes # 0.9 Eosinophils # 0.0 Basophils # 0.0 Nucleated Red Blood Cells # 0.0 Sodium Level 138 Potassium Level 3.8 Chloride Level 97 Carbon Dioxide Level 30 Anion Gap 15 Blood Urea Nitrogen 25 H Creatinine 0.90 Glucose Level 133 Calcium Level 9.6 Medications Medications Current Medications Pantoprazole (Protonix Iv) 40 mg BID@06,18 IV Last administered on 12/11/16 05 :34; Admin Dose 40 MG; Start 12/09/16 at 06:00 Acetaminophen (Tylenol Supp) 650 mg Q4H PRN [place] PAIN OR TEMP ABOVE 38C; Start at 20:30 Morphine Sulfate 2 mg 2 mg Q4H PRN IV PAIN; Start 12/08/16 at 20:30 Vancomycin HCl/ Sodium Chloride (Vancocin/NS) 250 ml @ 83.333 mls/ hr Q24H IVPB Last administered on 12/10/16 20:44; Admin Dose 83.333 MLS/HR; Start 06/17 at 20:00 Collagenase (Santyl) 1 applic DAILY TOP Last administered on 12/10/16 08:43; Admin Dose 1 APPLIC; Start 12/09/16 at 09:00 Collagenase 1 applic 1 applic PRN PRN TOP SOILED OR DISLODGED DRESSING; Start 12/09/16 at 04:30 Potassium Chloride/Dextrose/ Sod Cl 1,000 ml @ 80 mls/hr [id number] IV Last administered on 12/11/16 05:35; Admin Dose 80 MLS/HR; Start 12/09/16 at 17:00 Meropenem 100 ml @ 200 mls/hr Q12 IVPB Last administered on 12/11/16 09:03; Admin Dose 200 MLS/HR; Start 12/09/16 at 22:30 Levofloxacin/ Dextrose (Levaquin 500mg/ D5W 100 ml (Pmx)) 100 ml @ 100 mls/hr Q24H IVPB Last administered on 12/10/16 22:48; Admin Dose 100 MLS/HR; Start at 22:00 Diazepam (Valium) 5 mg Q12H PRN IV ANXIETY Last administered on 12/09/16 23:41 ; Admin Dose 5 MG; Start 12/09/16 at 23:00 Ondansetron HCl (Zofran Inj) 4 mg Q4H PRN IV NAUSEA AND/OR VOMITING Last administered on 12/10/16 16:55; Admin Dose 4 MG; Start 12/10/16 at 17:00 Metoprolol Tartrate (Lopressor) 5 mg Q6H PRN IV SBP >160 or HR > 120 Last administered on 12/10/16t 23:14; Admin Dose 5 MG; Start 12/10/16 at 17:00 Hydralazine HCl (Apresoline) 20 mg Q6H PRN IV SBP > 160; Start 12/10/16 at 17: 00 LIZZY GODFREY M.D. 12/30/16 2303: Assessment/Plan Assessment/Plan Additional Assessment/Plan Bekah attestation: I discussed the management with BELEM Loving and agree with above Exam/Review of Systems Results Result Diagram: 12/11/1618 12/11/1618 KO LOVING NP December 11, 2016 19:31 LIZZY GODFREY M.D. Dec 30, 2016 23:03
--- NOTE | 2016-12-11 19:42 | RADRPT ---
PROCEDURE: XR Chest. CLINICAL INDICATION: Nasogastric tube placement. TECHNIQUE: PA and Lateral views of the chest were obtained. COMPARISON: 09/24/2016. FINDINGS: Nasogastric tube in place with side port in the distal esophagus and recommend advancing same about 15 cm and re-imaging. Tracheostomy tube again seen at midline. Previously seen left central venous line is removed. The cardiomediastinal silhouette is within normal limits. Question right apical atelectasis versus a irspace disease and new bilateral lung base atelectasis.. No signs of pleural fluid or pneumothorax are seen. The osseous structures and soft tissues are unremarkable. IMPRESSION: Recommend advancing nasogastric tube 15 cm. RPTAT: UU Physician Deandra Date Time Electronically viewed and signed by Physician Deandra on 12/11/2016 19:42 RS/
[2016-12-11] MEDS: VANCOMYCIN 1.25 GM in SOD CHLORIDE 0.9% 250 ML IVPB SCH (20:45)
--- NOTE | 2016-12-11 22:32 | RADRPT ---
PROCEDURE: XR Chest. CLINICAL INDICATION: Nasogastric tube placement. TECHNIQUE: Single frontal view of the chest. COMPARISON: 09/24/2016. FINDINGS: Nasogastric tube tip and side port within the mid stomach. The cardiomediastinal silhouette is within normal limits. The thoracic aorta is tortuous. Midline t racheostomy tube. Bilateral dependent atelectasis versus airspace disease. Right apical atelectasi s versus airspace disease. No signs of pleural fluid or pneumothorax are seen. The osseous structur es and soft tissues are unremarkable. IMPRESSION: Nasogastric tube tip and side port in the mid stomach. RPTAT: UU Physician Deandra Date Time Electronically viewed and signed by Physician Deandra on 12/11/2016 22:32 RS/
[2016-12-11] MEDS: LEVOFLOXACIN 500MG/D5W (PMX) 100 ML IVPB SCH (22:56)
[2016-12-12] VITALS (26 sets, daily range): BP systolic 152–191; BP diastolic 74–103; PULSE 72–118; RESP 16–30
[2016-12-12] MEDS: IPRATROPIUM (HFA) 12.9 GM INHALER INH SCH ×4 (01:09→20:14)
[2016-12-12] MEDS: ALBUTEROL 18 GM INHALER INH SCH ×4 (01:09→20:14)
[2016-12-12] MEDS: PANTOPRAZOLE 40 MG INJ IV SCH ×2 (05:10→17:36)
[2016-12-12] MEDS: D5-NS + KCL 20 MEQ 1,000 ML IV SCH ×3 (07:30→19:50)
[2016-12-12] MEDS: MEROPENEM 1 GM/100 ML (PMX) 100 ML IVPB SCH (08:36)
[2016-12-12] MEDS: COLLAGENASE 30 GM TUBE TOP SCH (09:08)
--- NOTE | 2016-12-12 11:43 | PN ---
Date/Time of Note Date/Time of Note DATE: 12/12/16 TIME: 11:42 Assessment/Plan VTE Prophylaxis VTE Prophylaxis Intervention: other Lines/Catheters IV Catheter Type (from Nrs): Peripheral IV Urinary Cath still in place: Yes Reason Cath still needed: skin wounds contaminated by urine Assessment/Plan Chief Complaint/Hosp Course - Upper gastrointestinal bleed. Continue Protonix. Dr. Pryor is following in gastric gastroenterology consultation. - Healthcare facility-acquired pneumonia. Continue antibiotics. Dr. Tang is following an infection disease consultation. 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 - Ventilator dependent respiratory failure with tracheostomy. Dr. Saenz is following in pulmonology consultation. - Chronic obstructive pulmonary disease. - Hypertension. -Dysphagia with PEG. -Chronic Chaudhari catheter. -Colostomy -Bedbound status. Problems: Subjective 24 Hr Interval Summary Free Text/Dictation Patient is comfortably, on vent via trach Exam/Review of Systems Vital Signs Vitals Vital Signs Date Time Temp Pulse Resp B/P Pulse Ox O2 Delivery O2 Flow Rate FiO2 12/12/16 09:35 89 16 98 40 12/12/16 07:47 97.9 167/103 Intake and Output 12/11/16 12/11/16 12/12/16 15:00 23:00 07:00 Intake Total 1090 ml Output Total 400 ml 550 ml Balance -400 ml 540 ml Exam Constitutional: well developed Head: atraumatic, normocephalic Neck: supple Respiratory: diminished breath sounds Cardiovascular: regular rate and rhythm Gastrointestinal: non-tender, soft Extremities: normal pulses Results Result Diagram: 12/11/1618 12/11/1618 Results 24 hrs Laboratory Tests Test 12/11/16 19:15 Vancomycin Level Trough 14.0 Medications Medications Current Medications Pantoprazole (Protonix Iv) 40 mg BID@06,18 IV Last administered on 12/12/16t 05 :10; Admin Dose 40 MG; Start 12/09/16 at 06:00 Acetaminophen (Tylenol Supp) 650 mg Q4H PRN [place] PAIN OR TEMP ABOVE 38C; Start at 20:30 Morphine Sulfate 2 mg 2 mg Q4H PRN IV PAIN; Start 12/08/16 at 20:30 Vancomycin HCl/ Sodium Chloride (Vancocin/NS) 250 ml @ 83.333 mls/ hr Q24H IVPB Last administered on 12/11/16 20:45; Admin Dose 83.333 MLS/HR; Start 06/17 at 20:00 Collagenase (Santyl) 1 applic DAILY TOP Last administered on 12/12/16 09:08; Admin Dose 1 APPLIC; Start 12/09/16 at 09:00 Collagenase 1 applic 1 applic PRN PRN TOP SOILED OR DISLODGED DRESSING; Start 12/09/16 at 04:30 Potassium Chloride/Dextrose/ Sod Cl 1,000 ml @ 80 mls/hr [id number] IV Last administered on 12/11/16 19:36; Admin Dose 80 MLS/HR; Start 12/09/16 at 17:00 Meropenem 100 ml @ 200 mls/hr Q12 IVPB Last administered on 12/12/16 08:36; Admin Dose 200 MLS/HR; Start 12/09/16 at 22:30 Levofloxacin/ Dextrose (Levaquin 500mg/ D5W 100 ml (Pmx)) 100 ml @ 100 mls/hr Q24H IVPB Last administered on 12/11/16 22:56; Admin Dose 100 MLS/HR; Start at 22:00 Diazepam (Valium) 5 mg Q12H PRN IV ANXIETY Last administered on 12/09/16 23:41 ; Admin Dose 5 MG; Start 12/09/16 at 23:00 Ondansetron HCl (Zofran Inj) 4 mg Q4H PRN IV NAUSEA AND/OR VOMITING Last administered on 12/10/16 16:55; Admin Dose 4 MG; Start 12/10/16 at 17:00 Metoprolol Tartrate (Lopressor) 5 mg Q6H PRN IV SBP >160 or HR > 120 Last administered on 12/10/16 23:14; Admin Dose 5 MG; Start 12/10/16 at 17:00 Hydralazine HCl (Apresoline) 20 mg Q6H PRN IV SBP > 160; Start 12/10/16 at 17: 00 OLI ZUNIGA December 12, 2016 11:43
[2016-12-12] MEDS: hydrALAzine 20 MG INJ IV PRN ×2 (12:15→20:49)
--- NOTE | 2016-12-12 14:00 | CONS ---
Date/Time of Note Date/Time of Note DATE: 12/12/16 TIME: 13:53 Assessment/Plan Assessment/Plan Chief Complaint/Hosp Course - severe sepsis due to HCAP - HCAP/VAP due to kleb (KPC) and pseudo - UTI due to acineto and pseudo related to chronic indwelling Chaudhari - multiple pressure ulcer - recurrent infection of ulcer of RLE due to MRSA and pseudo. 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 the wound culture grew carbapenemase producing kleb, enterococci and pseudo - Dysphagia s/p EGD and new G tube placement 09/15/2016 - h/o infection of wound of RLE due to pseudomonas. 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/11/2016 - possible recurrent SBO per CT on 12/10/2016 - leukocytosis likely reactive from multiple emesis on 12/10/2016 (afebrile) recommendations: - adjust antibiotics: tobramycin for 7 days (for pseudomonas and acineto), cefepime for KPC in sputum, and linezolid for MRSA - vancomycin was changed to linezolid for MRSA because I want to avoid potential nephrotoxicity by combining vancomycin and tobramycin - mupirocin for MRSA decolonization - monitor GFR closely - wound care - contact isolation management d/w Pt's RN Problems: Consultation Date/Type/Reason Admit Date/Time December 08, 2016 at 12:01 Initial Consult Date 12/10/16 Type of Consultation: Infectious Disease Exam/Review of Systems Vital Signs Vitals Vital Signs Date Time Temp Pulse Resp B/P Pulse Ox O2 Delivery O2 Flow Rate FiO2 12/12/16 13:00 152/74 12/12/16 12:19 93 12/12/16 11:50 22 98 40 12/12/16 11:45 98.3 Intake and Output 12/11/16 12/11/16 12/12/16 15:00 23:00 07:00 Intake Total 1090 ml Output Total 400 ml 550 ml Balance -400 ml 540 ml Results Result Diagram: 12/11/1618 12/11/16 0618 Results 24 hrs Laboratory Tests Test 12/11/16 19:15 Vancomycin Level Trough 14.0 Medications Medications Current Medications Pantoprazole (Protonix Iv) 40 mg BID@06,18 IV Last administered on 12/12/16 05 :10; Admin Dose 40 MG; Start 12/09/16 at 06:00 Acetaminophen (Tylenol Supp) 650 mg Q4H PRN [place] PAIN OR TEMP ABOVE 38C; Start at 20:30 Morphine Sulfate 2 mg 2 mg Q4H PRN IV PAIN; Start 12/08/16 at 20:30 Vancomycin HCl/ Sodium Chloride (Vancocin/NS) 250 ml @ 83.333 mls/ hr Q24H IVPB Last administered on 12/11/16 20:45; Admin Dose 83.333 MLS/HR; Start 06/17 at 20:00 Collagenase (Santyl) 1 applic DAILY TOP Last administered on 12/12/16 09:08; Admin Dose 1 APPLIC; Start 12/09/16 at 09:00 Collagenase 1 applic 1 applic PRN PRN TOP SOILED OR DISLODGED DRESSING; Start 12/09/16 at 04:30 Potassium Chloride/Dextrose/ Sod Cl 1,000 ml @ 80 mls/hr [id number] IV Last administered on 12/12/16 12:20; Admin Dose 80 MLS/HR; Start 12/09/16 at 17:00 Meropenem 100 ml @ 200 mls/hr Q12 IVPB Last administered on 12/12/16 08:36; Admin Dose 200 MLS/HR; Start 12/09/16 at 22:30 Levofloxacin/ Dextrose (Levaquin 500mg/ D5W 100 ml (Pmx)) 100 ml @ 100 mls/hr Q24H IVPB Last administered on 12/11/16 22:56; Admin Dose 100 MLS/HR; Start at 22:00 Diazepam (Valium) 5 mg Q12H PRN IV ANXIETY Last administered on 12/09/16 23:41 ; Admin Dose 5 MG; Start 12/09/16 at 23:00 Ondansetron HCl (Zofran Inj) 4 mg Q4H PRN IV NAUSEA AND/OR VOMITING Last administered on 12/10/16 16:55; Admin Dose 4 MG; Start 12/10/16 at 17:00 Metoprolol Tartrate (Lopressor) 5 mg Q6H PRN IV SBP >160 or HR > 120 Last administered on 12/10/16 23:14; Admin Dose 5 MG; Start 12/10/16 at 17:00 Hydralazine HCl (Apresoline) 20 mg Q6H PRN IV SBP > 160 Last administered on 12:15; Admin Dose 20 MG; Start 12/10/16 at 17:00 LIZZY HECK M.D. December 12, 2016 14:00
[2016-12-12] MEDS ORDERED: TOBRAMYCIN IV PER PHARMACY XX SCH (14:30)
[2016-12-12] MEDS: TOBRAMYCIN 300 MG in SOD CHLORIDE 0.9% 100 ML IVPB SCH (17:36)
--- NOTE | 2016-12-12 18:06 | CONS ---
Date/Time of Note Date/Time of Note DATE: 12/12/16 TIME: 18:05 Assessment/Plan Assessment/Plan Chief Complaint/Hosp Course a] dysphagia plan needs new peg next week Problems: Consultation Date/Type/Reason Admit Date/Time December 08, 2016 at 12:01 Initial Consult Date 12/10/16 Type of Consultation: Infectious Disease 24 HR Interval Summary Free Text/Dictation g tube removed because of migration Exam/Review of Systems Vital Signs Vitals Vital Signs Date Time Temp Pulse Resp B/P Pulse Ox O2 Delivery O2 Flow Rate FiO2 12/12/16 17:25 89 24 98 40 12/12/16 16:04 98.0 152/86 Intake and Output 12/11/16 12/11/16 12/12/16 15:00 23:00 07:00 Intake Total 1090 ml Output Total 400 ml 550 ml Balance -400 ml 540 ml Results Result Diagram: 12/11/16 0618 12/11/16 0618 Results 24 hrs Laboratory Tests Test 12/11/16 19:15 Vancomycin Level Trough 14.0 Medications Medications Current Medications Pantoprazole (Protonix Iv) 40 mg BID@06,18 IV Last administered on 12/12/16 17 :36; Admin Dose 40 MG; Start 12/09/16 at 06:00 Acetaminophen (Tylenol Supp) 650 mg Q4H PRN [place] PAIN OR TEMP ABOVE 38C; Start at 20:30 Morphine Sulfate (morphine) 2 mg Q4H PRN IV PAIN; Start 12/08/16 at 20:30 Collagenase (Santyl) 1 applic DAILY TOP Last administered on 12/12/16 09:08; Admin Dose 1 APPLIC; Start 12/09/16 at 09:00 Collagenase 1 applic 1 applic PRN PRN TOP SOILED OR DISLODGED DRESSING; Start 12/09/16 at 04:30 Potassium Chloride/Dextrose/ Sod Cl (D5-NS + KCl 20 Meq) 1,000 ml @ 80 mls/hr [id number] IV Last administered on 12/12/16 12:20; Admin Dose 80 MLS/HR; Start at 17:00 Diazepam (Valium) 5 mg Q12H PRN IV ANXIETY Last administered on 12/09/16 23:41 ; Admin Dose 5 MG; Start 12/09/16 at 23:00 Ondansetron HCl (Zofran Inj) 4 mg Q4H PRN IV NAUSEA AND/OR VOMITING Last administered on 12/10/16 16:55; Admin Dose 4 MG; Start 12/10/16 at 17:00 Metoprolol Tartrate (Lopressor) 5 mg Q6H PRN IV SBP >160 or HR > 120 Last administered on 12/10/16 23:14; Admin Dose 5 MG; Start 12/10/16 at 17:00 Hydralazine HCl (Apresoline) 20 mg Q6H PRN IV SBP > 160 Last administered on 12:15; Admin Dose 20 MG; Start 12/10/16 at 17:00 Tobramycin TOBRAMYCIN PER PHARMACY NOTE XX ; Start 12/12/16 at 14:30; Stop 12/19 at 14:29 Cefepime HCl 50 ml @ 100 mls/hr Q12 IVPB ; Start 12/12/16 at 21:00 Linezolid (Zyvox 600mg/D5W (Pmx)) 300 ml @ 300 mls/hr Q12 IVPB ; Start at 21:00 Mupirocin APPLY TO bilateral nares BID TOP ; Start 12/12/16 at 21:00; Stop 12/22 at 20:59 Tobramycin/Sodium Chloride (Tobramycin/NS) 107.5 ml @ 103.75 mls/ hr Q48H IVPB Last administered on 12/12/16 17:36; Admin Dose 103.75 MLS/HR; Start at 18:00 Miscellaneous Information (*Rx Drug Level Order Reminder*) RANDOM TOBRA LEVEL... ONCE ONCE XX ; Start 12/13/16 at 05:00; Stop 12/13/16 at 05:01 KATELYN SILVERMAN MD December 12, 2016 18:06
--- NOTE | 2016-12-12 18:09 | CONS ---
Date/Time of Note Date/Time of Note DATE: 12/12/16 TIME: 18:06 Assessment/Plan Assessment/Plan Chief Complaint/Hosp Course a] dysphagia plan needs new peg next week Problems: Additional Assessment/Plan ileus vs sbo plan npo kub surg consult Consultation Date/Type/Reason Admit Date/Time December 08, 2016 at 12:01 Initial Consult Date 12/10/16 Type of Consultation: Infectious Disease 24 HR Interval Summary Free Text/Dictation pt lethargic \g tube removed because of migration Exam/Review of Systems Vital Signs Vitals Vital Signs Date Time Temp Pulse Resp B/P Pulse Ox O2 Delivery O2 Flow Rate FiO2 12/12/16 17:25 89 24 98 40 12/12/16 16:04 98.0 152/86 Intake and Output 12/11/16 12/11/16 12/12/16 15:00 23:00 07:00 Intake Total 1090 ml Output Total 400 ml 550 ml Balance -400 ml 540 ml Exam o/e abd soft gastrostomy site draining greenish liquid ct ileus vs sbo Results Result Diagram: 12/11/1618 12/11/1618 Results 24 hrs Laboratory Tests Test 12/11/16 19:15 Vancomycin Level Trough 14.0 Medications Medications Current Medications Pantoprazole (Protonix Iv) 40 mg BID@06,18 IV Last administered on 12/12/16 17 :36; Admin Dose 40 MG; Start 12/09/16 at 06:00 Acetaminophen (Tylenol Supp) 650 mg Q4H PRN [place] PAIN OR TEMP ABOVE 38C; Start at 20:30 Morphine Sulfate (morphine) 2 mg Q4H PRN IV PAIN; Start 12/08/16 at 20:30 Collagenase (Santyl) 1 applic DAILY TOP Last administered on 12/12/16 09:08; Admin Dose 1 APPLIC; Start 12/09/16 at 09:00 Collagenase 1 applic 1 applic PRN PRN TOP SOILED OR DISLODGED DRESSING; Start 12/09/16 at 04:30 Potassium Chloride/Dextrose/ Sod Cl (D5-NS + KCl 20 Meq) 1,000 ml @ 80 mls/hr [id number] IV Last administered on 12/12/16 12:20; Admin Dose 80 MLS/HR; Start at 17:00 Diazepam (Valium) 5 mg Q12H PRN IV ANXIETY Last administered on 12/09/16 23:41 ; Admin Dose 5 MG; Start 12/09/16 at 23:00 Ondansetron HCl (Zofran Inj) 4 mg Q4H PRN IV NAUSEA AND/OR VOMITING Last administered on 12/10/16 16:55; Admin Dose 4 MG; Start 12/10/16 at 17:00 Metoprolol Tartrate (Lopressor) 5 mg Q6H PRN IV SBP >160 or HR > 120 Last administered on 12/10/16 23:14; Admin Dose 5 MG; Start 12/10/16 at 17:00 Hydralazine HCl (Apresoline) 20 mg Q6H PRN IV SBP > 160 Last administered on 12:15; Admin Dose 20 MG; Start 12/10/16 at 17:00 Tobramycin TOBRAMYCIN PER PHARMACY NOTE XX ; Start 12/12/16 at 14:30; Stop 12/19 at 14:29 Cefepime HCl 50 ml @ 100 mls/hr Q12 IVPB ; Start 12/12/16 at 21:00 Linezolid (Zyvox 600mg/D5W (Pmx)) 300 ml @ 300 mls/hr Q12 IVPB ; Start at 21:00 Mupirocin APPLY TO bilateral nares BID TOP ; Start 12/12/16 at 21:00; Stop 12/22 at 20:59 Tobramycin/Sodium Chloride (Tobramycin/NS) 107.5 ml @ 103.75 mls/ hr Q48H IVPB Last administered on 12/12/16 17:36; Admin Dose 103.75 MLS/HR; Start at 18:00 Miscellaneous Information (*Rx Drug Level Order Reminder*) RANDOM TOBRA LEVEL... ONCE ONCE XX ; Start 12/13/16 at 05:00; Stop 12/13/16 at 05:01 KATELYN SILVERMAN MD December 12, 2016 18:09
--- NOTE | 2016-12-12 18:55 | RADRPT ---
PROCEDURE: XR Abdomen. CLINICAL INDICATION: Ileus versus small bowel obstruction. TECHNIQUE: AP abdomen x-ray. COMPARISON: 09/27/2016. FINDINGS: Nasogastric tube is seen with tip and side port in the stomach. The bowel gas pattern is normal. There is no evidence of obstruction. There are no abnormal calcific ations overlying the urinary tracts. The osseus structures are unremarkable. IMPRESSION: 1. Nasogastric tube is seen with tip and side port within the stomach. 2. Otherwise, no acute process within the abdomen. RPTAT: [facility] Physician Deandra Date Time Electronically viewed and signed by Physician Deandra on 12/12/2016 18:54 RS/
[2016-12-12] MEDS: LINEZOLID 600 MG/D5W (PMX) 300 ML IVPB SCH (20:48)
[2016-12-12] MEDS: MUPIROCIN 2% 15 GM CR TOP SCH (20:49)
[2016-12-12] MEDS: CEFEPIME 2GM/50 ML (PMX) 50 ML IVPB SCH (21:55)
[2016-12-13] VITALS (24 sets, daily range): BP systolic 118–157; BP diastolic 71–93; PULSE 78–98; RESP 16–25
[2016-12-13] MEDS: ALBUTEROL 18 GM INHALER INH SCH ×4 (03:32→19:47)
[2016-12-13] MEDS: IPRATROPIUM (HFA) 12.9 GM INHALER INH SCH ×4 (03:32→19:47)
[2016-12-13] MEDS: PANTOPRAZOLE 40 MG INJ IV SCH ×2 (05:15→17:10)
[2016-12-13 06:02] LABS: ADD SCAN DIFF NO
[2016-12-13 06:07] LABS: ABNORMAL IP MESSAGE 1; BASOPHILS % 0.1 % (0.0-2.0); EOSINOPHILS # 0.4 10^3/ul (0.0-0.5); EOSINOPHILS % 3.5 % (0.0-7.0); HEMATOCRIT 33.3 % (42.0-52.0); HEMOGLOBIN 10.6 g/dl (14.0-18.0); LYMPHOCYTES # 1.7 10^3/ul (0.8-2.9); LYMPHOCYTES % 16.6 % (15.0-51.0); MEAN CORPUSCULAR HEMOGLOBIN 29.1 pg (29.0-33.0); MEAN CORPUSCULAR HGB CONC 31.8 g/dl (32.0-37.0); MEAN CORPUSCULAR VOLUME 91.5 fl (82.0-101.0); MEAN PLATELET VOLUME 13.6 fl (7.4-10.4); MONOCYTE # 1.2 10^3/ul (0.3-0.9); NEUTROPHIL # 7.2 10^3/ul (1.6-7.5); NEUTROPHILS % 68.2 % (39.0-77.0); PLATELET COUNT 185 10^3/UL (140-415); RED BLOOD COUNT 3.64 10^6/ul (4.70-6.10); RED CELL DISTRIBUTION WIDTH 18.3 % (11.5-14.5); WHITE BLOOD COUNT 10.5 10^3/ul (4.8-10.8)
[2016-12-13] MEDS: D5-NS + KCL 20 MEQ 1,000 ML IV SCH ×2 (08:30→17:12)
[2016-12-13] MEDS: LINEZOLID 600 MG/D5W (PMX) 300 ML IVPB SCH ×2 (08:37→21:23)
[2016-12-13] MEDS: COLLAGENASE 30 GM TUBE TOP SCH (08:37)
[2016-12-13] MEDS: MUPIROCIN 2% 15 GM CR TOP SCH ×2 (08:37→21:24)
[2016-12-13 09:09] LABS: CALCIUM 9.1 mg/dl (8.4-10.2); CREATININE 0.83 mg/dl (0.61-1.24); POTASSIUM 3.6 mmol/L (3.5-5.1)
[2016-12-13] MEDS: CEFEPIME 2GM/50 ML (PMX) 50 ML IVPB SCH ×2 (10:09→21:22)
--- NOTE | 2016-12-13 16:32 | PN ---
Date/Time of Note Date/Time of Note DATE: 12/13/16 TIME: 16:27 Assessment/Plan VTE Prophylaxis VTE Prophylaxis Intervention: SCD's Lines/Catheters IV [facility] Type [facility]from [facility] Peripheral IV Urinary Cath still in place: Yes Reason Cath still needed: urinary retention Assessment/Plan Chief Complaint/Hosp Course - Upper gastrointestinal bleed. Continue Protonix. Dr. Pryor is following in gastric gastroenterology consultation. - Possible SBO, NGT to LWS. - Sepsis secondary to healthcare acquired pneumonia. - Healthcare facility-acquired pneumonia. Continue antibiotics. Dr. Tang is following an infection disease consultation. - UTI. 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 - Ventilator dependent respiratory failure with tracheostomy. Dr. Saenz is following in pulmonology consultation. - Chronic obstructive pulmonary disease. - Hypertension. -Dysphagia with PEG. -Chronic Chaudhari catheter. -Colostomy -Bedbound status. Further recommendations based on clinical course. Plan of care discussed with Dr. Meeks. Problems: Subjective 24 Hr Interval Summary Free Text/Dictation G-tube to low continuous suctioning, no fever, PICC line is ordered for possible TPN and lipids patient's is unable to continue tolerated G-tube feeding. Exam/Review of Systems Vital Signs Vitals Vital Signs Date Time Temp Pulse Resp B/P Pulse Ox O2 Delivery O2 Flow Rate FiO2 12/13/16 15:55 98.5 80 16 150/81 98 12/13/16 15:10 40 Intake and Output 12/12/16 12/12/16 12/13/16 15:00 23:00 07:00 Intake Total 360 ml 1417.5 ml Output Total 850 ml 150 ml Balance 360 ml 567.5 ml -150 ml Exam Constitutional: frail, non-verbal Psych: confusion Head: normocephalic Eyes: nl conjunctiva ENMT: nl external ears & nose Neck: other (Tracheostomy), supple Respiratory: diminished breath sounds Cardiovascular: other (Atrial arrhythmia) Gastrointestinal: non-tender, other (G-tube, colostomy), soft Genitourinary - Male: other (Chaudhari) Musculoskeletal: other (Contracted) Extremities: normal pulses Neurological: other (Chronic encephalopathy) Skin: other (Wounds) Results Result Diagram: 12/13/1615 12/13/16 0515 Results 24 hrs Laboratory Tests Test 12/13/16 05:15 White Blood Count 10.5 # Red Blood Count 3.64 L Hemoglobin 10.6 L Hematocrit 33.3 L Mean Corpuscular Volume 91.5 Mean Corpuscular Hemoglobin 29.1 Mean Corpuscular Hemoglobin Concent 31.8 L Red Cell Distribution Width 18.3 H Platelet Count 185 Mean Platelet Volume 13.6 H Neutrophils % 68.2 Lymphocytes % 16.6 Monocytes % 11.0 Eosinophils % 3.5 Basophils % 0.1 Nucleated Red Blood Cells % 0.0 Neutrophils # 7.2 Lymphocytes # 1.7 Monocytes # 1.2 H Eosinophils # 0.4 Basophils # 0.0 Nucleated Red Blood Cells # 0.0 Sodium Level 143 Potassium Level 3.6 Chloride Level 109 # Carbon Dioxide Level 28 Anion Gap 10 # Blood Urea Nitrogen 19 Creatinine 0.83 Glucose Level 126 Calcium Level 9.1 Random Tobramycin Level 4.0 Medications Medications Current Medications Pantoprazole (Protonix Iv) 40 mg BID@06,18 IV Last administered on 12/13/16 05 :15; Admin Dose 40 MG; Start 12/09/16 at 06:00 Acetaminophen (Tylenol Supp) 650 mg Q4H PRN [place] PAIN OR TEMP ABOVE 38C; Start at 20:30 Morphine Sulfate (morphine) 2 mg Q4H PRN IV PAIN; Start 12/08/16 at 20:30 Collagenase (Santyl) 1 applic DAILY TOP Last administered on 12/13/16 08:37; Admin Dose 1 APPLIC; Start 12/09/16 at 09:00 Collagenase 1 applic 1 applic PRN PRN TOP SOILED OR DISLODGED DRESSING; Start 12/09/16 at 04:30 Potassium Chloride/Dextrose/ Sod Cl (D5-NS + KCl 20 Meq) 1,000 ml @ 80 mls/hr [id number] IV Last administered on 12/12/16 19:50; Admin Dose 80 MLS/HR; Start at 17:00 Diazepam (Valium) 5 mg Q12H PRN IV ANXIETY Last administered on 12/09/16 23:41 ; Admin Dose 5 MG; Start 12/09/16 at 23:00 Ondansetron HCl (Zofran Inj) 4 mg Q4H PRN IV NAUSEA AND/OR VOMITING Last administered on 12/10/16 16:55; Admin Dose 4 MG; Start 12/10/16 at 17:00 Metoprolol Tartrate (Lopressor) 5 mg Q6H PRN IV SBP >160 or HR > 120 Last administered on 12/10/16 23:14; Admin Dose 5 MG; Start 12/10/16 at 17:00 Hydralazine HCl (Apresoline) 20 mg Q6H PRN IV SBP > 160 Last administered on 20:49; Admin Dose 20 MG; Start 12/10/16 at 17:00 Tobramycin TOBRAMYCIN PER PHARMACY NOTE XX ; Start 12/12/16 at 14:30; Stop 12/19 at 14:29 Cefepime HCl 50 ml @ 100 mls/hr Q12 IVPB Last administered on 12/13/16 10:09 ; Admin Dose 100 MLS/HR; Start 12/12/16 at 21:00 Linezolid (Zyvox 600mg/D5W (Pmx)) 300 ml @ 300 mls/hr Q12 IVPB Last administered on 12/13/16 08:37; Admin Dose 300 MLS/HR; Start 12/12/16 at 21:00 Mupirocin APPLY TO bilateral nares BID TOP Last administered on 12/13/16 08:37 ; Admin Dose 1 APPLIC; Start 12/12/16 at 21:00; Stop 12/22/16 at 20:59 Tobramycin/Sodium Chloride (Tobramycin/NS) 107.5 ml @ 103.75 mls/ hr Q48H IVPB Last administered on 12/12/16 17:36; Admin Dose 103.75 MLS/HR; Start at 18:00 AMY MORAN December 13, 2016 16:32
[2016-12-13] MEDS ORDERED: LIDOCAINE 1% (MPF) 5 ML VIAL SC ONE (17:00)
[2016-12-13] MEDS ORDERED: SOD CHLORIDE 0.9% 500 ML IV ONE (18:30)
[2016-12-14] VITALS (25 sets, daily range): BP systolic 133–171; BP diastolic 58–92; PULSE 69–92; RESP 16–28
[2016-12-14] MEDS: IPRATROPIUM (HFA) 12.9 GM INHALER INH SCH ×4 (01:44→19:45)
[2016-12-14] MEDS: ALBUTEROL 18 GM INHALER INH SCH ×4 (01:45→19:44)
[2016-12-14] MEDS: PANTOPRAZOLE 40 MG INJ IV SCH ×2 (05:59→17:21)
[2016-12-14 07:24] LABS: ADD SCAN DIFF NO
[2016-12-14 07:31] LABS: ABNORMAL IP MESSAGE 1; BASOPHILS % 0.4 % (0.0-2.0); EOSINOPHILS # 0.5 10^3/ul (0.0-0.5); EOSINOPHILS % 5.2 % (0.0-7.0); HEMOGLOBIN 10.4 g/dl (14.0-18.0); LYMPHOCYTES # 1.9 10^3/ul (0.8-2.9); LYMPHOCYTES % 19.9 % (15.0-51.0); MEAN CORPUSCULAR HEMOGLOBIN 29.1 pg (29.0-33.0); MEAN CORPUSCULAR HGB CONC 31.5 g/dl (32.0-37.0); MEAN CORPUSCULAR VOLUME 92.4 fl (82.0-101.0); MEAN PLATELET VOLUME 13.1 fl (7.4-10.4); MONOCYTES % 10.2 % (0.0-11.0); NEUTROPHILS % 63.9 % (39.0-77.0); PLATELET COUNT 213 10^3/UL (140-415); RED BLOOD COUNT 3.57 10^6/ul (4.70-6.10); RED CELL DISTRIBUTION WIDTH 18.4 % (11.5-14.5); WHITE BLOOD COUNT 9.4 10^3/ul (4.8-10.8)
[2016-12-14 07:49] LABS: POTASSIUM 3.3 mmol/L (3.5-5.1)
[2016-12-14 07:52] LABS: CREATININE 0.81 mg/dl (0.61-1.24)
[2016-12-14 07:53] LABS: CALCIUM 8.8 mg/dl (8.4-10.2)
[2016-12-14] MEDS: MUPIROCIN 2% 15 GM CR TOP SCH ×2 (08:20→21:30)
[2016-12-14] MEDS: COLLAGENASE 30 GM TUBE TOP SCH (08:20)
[2016-12-14] MEDS: CEFEPIME 2GM/50 ML (PMX) 50 ML IVPB SCH ×2 (08:20→21:29)
[2016-12-14] MEDS: LINEZOLID 600 MG/D5W (PMX) 300 ML IVPB SCH ×2 (09:06→21:29)
[2016-12-14 10:03] LABS: INR 1.3; PROTIME 16.3 Sec (12.2-14.2); PT RATIO 1.3
[2016-12-14] MEDS: D5-NS + KCL 20 MEQ 1,000 ML IV SCH ×2 (10:08→22:00)
[2016-12-14] MEDS: hydrALAzine 20 MG INJ IV PRN (12:17)
--- NOTE | 2016-12-14 14:29 | CONS ---
DATE OF ADMISSION: 12/08/2016 DATE OF CONSULTATION: TYPE OF CONSULTATION: Progress note. HISTORY OF PRESENT ILLNESS: The patient has no complaints. He is lethargic, he is status post trac heostomy. PHYSICAL EXAMINATION: GENERAL: On examination he is lethargic. ABDOMEN: Showed evidence of a colostomy bag on the gastrostomy site. No drainage noted. He has got an NG tube going into place for suction. Abdomen showed evidence of a soft abdomen with no palpable masses, no tenderness. LABORATORY WORKUP: WBC count 9400 on the , which is today. It came down from 10,500, hemoglobi n 10.4. The KUB shows evidence of no obstruction pattern, although CAT scan of the abdomen a couple days ago showed possible small-bowel obstruction. CLINICAL IMPRESSION: 1. Ileus is resolved. 2. The gastrostomy site is not leaking. 3. He is on NG suction. 4. I will continue NG suction for another 24 hours and then we can slowly start the nasogastric tub e feeding. Meanwhile will let the gastrostomy site heal on its own. Dictated By: KATELYN FERRARI/MACK Conf#: [id number] DID#: [id number]
[2016-12-14] MEDS ORDERED: LIDOCAINE 1% (MPF) 5 ML VIAL SC ONE (14:30)
--- NOTE | 2016-12-14 16:20 | CONS ---
Date/Time of Note Date/Time of Note DATE: 12/13/16 TIME: 16:19 Assessment/Plan Assessment/Plan Chief Complaint/Hosp Course - severe sepsis due to HCAP - HCAP/VAP due to kleb (KPC) and pseudo - UTI due to acineto and pseudo related to chronic indwelling Chaudhari - multiple pressure ulcer - recurrent infection of ulcer of RLE due to MRSA and pseudo. 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 the wound culture grew carbapenemase producing kleb, enterococci and pseudo - Dysphagia s/p EGD and new G tube placement 09/15/2016 - h/o infection of wound of RLE due to pseudomonas. 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 antibiotics: tobramycin for 7 days (for pseudomonas and acineto), cefepime for KPC in sputum, and linezolid for MRSA - mupirocin for MRSA decolonization - monitor GFR closely - wound care - contact isolation Problems: Consultation Date/Type/Reason Admit Date/Time December 08, 2016 at 12:01 Type of Consultation: Infectious Disease Referring Provider: MARLA AKBAR MD Exam/Review of Systems Vital Signs Vitals Vital Signs Date Time Temp Pulse Resp B/P Pulse Ox O2 Delivery O2 Flow Rate FiO2 12/14/16 16:08 79 12/14/16 15:23 98.4 18 133/71 90 12/14/16 15:05 35 Intake and Output 12/13/16 12/13/16 12/14/16 15:00 23:00 07:00 Intake Total 1200 ml 300 ml Output Total 260 ml 350 ml Balance 940 ml -50 ml Exam Constitutional: non-verbal Psych: confusion Head: atraumatic, normocephalic Eyes: EOMI ENMT: nl external ears & nose, nl lips & teeth, nl nasal mucosa & septum Respiratory: congested cough Cardiovascular: regular rate and rhythm Gastrointestinal: non-tender, soft Musculoskeletal: nl extremities to inspection Results Result Diagram: 12/14/16 0655 12/14/16 0655 Results 24 hrs Laboratory Tests Test 12/14/16 06:55 12/14/16 09:00 White Blood Count 9.4 Red Blood Count 3.57 L Hemoglobin 10.4 L Hematocrit 33.0 L Mean Corpuscular Volume 92.4 Mean Corpuscular Hemoglobin 29.1 Mean Corpuscular Hemoglobin Concent 31.5 L Red Cell Distribution Width 18.4 H Platelet Count 213 Mean Platelet Volume 13.1 H Neutrophils % 63.9 Lymphocytes % 19.9 Monocytes % 10.2 Eosinophils % 5.2 Basophils % 0.4 Nucleated Red Blood Cells % 0.0 Neutrophils # 6.0 Lymphocytes # 1.9 Monocytes # 1.0 H Eosinophils # 0.5 Basophils # 0.0 Nucleated Red Blood Cells # 0.0 Sodium Level 146 H Potassium Level 3.3 L Chloride Level 110 Carbon Dioxide Level 28 Anion Gap 11 Blood Urea Nitrogen 18 Creatinine 0.81 Glucose Level 106 Calcium Level 8.8 Prothrombin Time 16.3 H Prothrombin Time Ratio 1.3 INR International Normalized Ratio 1.30 Medications Medications Current Medications Pantoprazole (Protonix Iv) 40 mg BID@,18 IV Last administered on 12/14/16t 05 :59; Admin Dose 40 MG; Start 12/09/16 at 06:00 Acetaminophen (Tylenol Supp) 650 mg Q4H PRN [place] PAIN OR TEMP ABOVE 38C; Start at 20:30 Morphine Sulfate (morphine) 2 mg Q4H PRN IV PAIN; Start 12/08/16 at 20:30 Collagenase (Santyl) 1 applic DAILY TOP Last administered on 12/14/16 08:20; Admin Dose 1 APPLIC; Start 12/09/16 at 09:00 Collagenase 1 applic 1 applic PRN PRN TOP SOILED OR DISLODGED DRESSING; Start 12/09/16 at 04:30 Potassium Chloride/Dextrose/ Sod Cl (D5-NS + KCl 20 Meq) 1,000 ml @ 80 mls/hr [id number] IV Last administered on 12/14/16 10:08; Admin Dose 80 MLS/HR; Start at 17:00 Diazepam (Valium) 5 mg Q12H PRN IV ANXIETY Last administered on 12/09/16 23:41 ; Admin Dose 5 MG; Start 12/09/16 at 23:00 Ondansetron HCl (Zofran Inj) 4 mg Q4H PRN IV NAUSEA AND/OR VOMITING Last administered on 12/10/16 16:55; Admin Dose 4 MG; Start 12/10/16 at 17:00 Metoprolol Tartrate (Lopressor) 5 mg Q6H PRN IV SBP >160 or HR > 120 Last administered on 12/10/16 23:14; Admin Dose 5 MG; Start 12/10/16 at 17:00 Hydralazine HCl (Apresoline) 20 mg Q6H PRN IV SBP > 160 Last administered on 12:17; Admin Dose 20 MG; Start 12/10/16 at 17:00 Tobramycin TOBRAMYCIN PER PHARMACY NOTE XX ; Start 12/12/16 at 14:30; Stop 12/19 at 14:29 Cefepime HCl 50 ml @ 100 mls/hr Q12 IVPB Last administered on 12/14/16 08:20 ; Admin Dose 100 MLS/HR; Start 12/12/16 at 21:00 Linezolid (Zyvox 600mg/D5W (Pmx)) 300 ml @ 300 mls/hr Q12 IVPB Last administered on 12/14/16 09:06; Admin Dose 300 MLS/HR; Start 12/12/16 at 21:00 Mupirocin APPLY TO bilateral nares BID TOP Last administered on 12/14/16 08:20 ; Admin Dose 1 APPLIC; Start 12/12/16 at 21:00; Stop 12/22/16 at 20:59 Tobramycin/Sodium Chloride (Tobramycin/NS) 107.5 ml @ 103.75 mls/ hr Q48H IVPB Last administered on 12/12/16t 17:36; Admin Dose 103.75 MLS/HR; Start at 18:00 MARIBELL SUN MD December 14, 2016 16:20
--- NOTE | 2016-12-14 16:55 | PN ---
Date/Time of Note Date/Time of Note DATE: 12/14/16 TIME: 16:53 Assessment/Plan VTE Prophylaxis VTE Prophylaxis Intervention: SCD's Lines/Catheters IV Catheter Type (from Nrs): Peripheral IV Urinary Cath still in place: Yes Reason Cath still needed: urinary retention Assessment/Plan Chief Complaint/Hosp Course - Upper gastrointestinal bleed. Continue Protonix. Dr. Pryor is following in gastric gastroenterology consultation. - Possible SBO, NGT to LWS. Dr. Teran is asked to see patient in general surgery consultation. - Sepsis secondary to healthcare acquired pneumonia. - Healthcare facility-acquired pneumonia. Continue antibiotics. Dr. Tang is following in infection disease consultation. - UTI. 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 - Ventilator dependent respiratory failure with tracheostomy. Dr. Saenz is following in pulmonology consultation. - Chronic obstructive pulmonary disease. - Hypertension. - Dysphagia. -Chronic Chaudhari catheter. -Colostomy -Bedbound status. Further recommendations based on clinical course. Plan of care discussed with Dr. Meeks. Problems: Subjective 24 Hr Interval Summary Free Text/Dictation Patient remains afebrile, NG tube to low continuous suctioning. Exam/Review of Systems Vital Signs Vitals Vital Signs Date Time Temp Pulse Resp B/P Pulse Ox O2 Delivery O2 Flow Rate FiO2 12/14/16 16:08 79 12/14/16 15:23 98.4 18 133/71 90 12/14/16 15:05 35 Intake and Output 12/13/16 12/13/16 12/14/16 15:00 23:00 07:00 Intake Total 1200 ml 300 ml Output Total 260 ml 350 ml Balance 940 ml -50 ml Exam Constitutional: frail, non-verbal Psych: confusion Head: normocephalic Eyes: nl conjunctiva ENMT: nl external ears & nose Neck: other (Tracheostomy), supple Respiratory: diminished breath sounds Cardiovascular: other (Atrial arrhythmia) Gastrointestinal: non-tender, other (G-tube, colostomy), soft Genitourinary - Male: other (Chaudhari) Musculoskeletal: other (Contracted) Extremities: normal pulses Neurological: other (Chronic encephalopathy) Skin: other (Wounds) Results Result Diagram: 12/14/16 0655 12/14/16 0655 Results 24 hrs Laboratory Tests Test 12/14/16 06:55 12/14/16 09:00 White Blood Count 9.4 Red Blood Count 3.57 L Hemoglobin 10.4 L Hematocrit 33.0 L Mean Corpuscular Volume 92.4 Mean Corpuscular Hemoglobin 29.1 Mean Corpuscular Hemoglobin Concent 31.5 L Red Cell Distribution Width 18.4 H Platelet Count 213 Mean Platelet Volume 13.1 H Neutrophils % 63.9 Lymphocytes % 19.9 Monocytes % 10.2 Eosinophils % 5.2 Basophils % 0.4 Nucleated Red Blood Cells % 0.0 Neutrophils # 6.0 Lymphocytes # 1.9 Monocytes # 1.0 H Eosinophils # 0.5 Basophils # 0.0 Nucleated Red Blood Cells # 0.0 Sodium Level 146 H Potassium Level 3.3 L Chloride Level 110 Carbon Dioxide Level 28 Anion Gap 11 Blood Urea Nitrogen 18 Creatinine 0.81 Glucose Level 106 Calcium Level 8.8 Prothrombin Time 16.3 H Prothrombin Time Ratio 1.3 INR International Normalized Ratio 1.30 Medications Medications Current Medications Pantoprazole (Protonix Iv) 40 mg BID@06,18 IV Last administered on 12/14/16 05 :59; Admin Dose 40 MG; Start 12/09/16 at 06:00 Acetaminophen (Tylenol Supp) 650 mg Q4H PRN [place] PAIN OR TEMP ABOVE 38C; Start at 20:30 Morphine Sulfate (morphine) 2 mg Q4H PRN IV PAIN; Start 12/08/16 at 20:30 Collagenase (Santyl) 1 applic DAILY TOP Last administered on 12/14/16 08:20; Admin Dose 1 APPLIC; Start 12/09/16 at 09:00 Collagenase 1 applic 1 applic PRN PRN TOP SOILED OR DISLODGED DRESSING; Start 12/09/16 at 04:30 Potassium Chloride/Dextrose/ Sod Cl (D5-NS + KCl 20 Meq) 1,000 ml @ 80 mls/hr [id number] IV Last administered on 12/14/16 10:08; Admin Dose 80 MLS/HR; Start at 17:00 Diazepam (Valium) 5 mg Q12H PRN IV ANXIETY Last administered on 12/09/16 23:41 ; Admin Dose 5 MG; Start 12/09/16 at 23:00 Ondansetron HCl (Zofran Inj) 4 mg Q4H PRN IV NAUSEA AND/OR VOMITING Last administered on 12/10/16 16:55; Admin Dose 4 MG; Start 12/10/16 at 17:00 Metoprolol Tartrate (Lopressor) 5 mg Q6H PRN IV SBP >160 or HR > 120 Last administered on 12/10/16 23:14; Admin Dose 5 MG; Start 12/10/16 at 17:00 Hydralazine HCl (Apresoline) 20 mg Q6H PRN IV SBP > 160 Last administered on 12:17; Admin Dose 20 MG; Start 12/10/16 at 17:00 Tobramycin TOBRAMYCIN PER PHARMACY NOTE XX ; Start 12/12/16 at 14:30; Stop 12/19 at 14:29 Cefepime HCl 50 ml @ 100 mls/hr Q12 IVPB Last administered on 12/14/16 08:20 ; Admin Dose 100 MLS/HR; Start 12/12/16 at 21:00 Linezolid (Zyvox 600mg/D5W (Pmx)) 300 ml @ 300 mls/hr Q12 IVPB Last administered on 12/14/16 09:06; Admin Dose 300 MLS/HR; Start 12/12/16 at 21:00 Mupirocin APPLY TO bilateral nares BID TOP Last administered on 12/14/16 08:20 ; Admin Dose 1 APPLIC; Start 12/12/16 at 21:00; Stop 12/22/16 at 20:59 Tobramycin/Sodium Chloride (Tobramycin/NS) 107.5 ml @ 103.75 mls/ hr Q48H IVPB Last administered on 12/12/16 17:36; Admin Dose 103.75 MLS/HR; Start at 18:00 AMY MORAN December 14, 2016 16:55
[2016-12-14] MEDS: TOBRAMYCIN 300 MG in SOD CHLORIDE 0.9% 100 ML IVPB SCH (17:21)
--- NOTE | 2016-12-14 18:48 | CONS ---
Date/Time of Note Date/Time of Note DATE: 12/14/16 TIME: 18:40 Assessment/Plan Assessment/Plan Chief Complaint/Hosp Course - severe sepsis due to HCAP - HCAP/VAP due to kleb (KPC) and pseudo - UTI due to acineto and pseudo related to chronic indwelling Vincent - multiple pressure ulcer - recurrent infection of ulcer of RLE due to MRSA and pseudo. 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 the wound culture grew carbapenemase producing kleb, enterococci and pseudo - Dysphagia s/p EGD and new G tube placement 09/15/2016 - h/o infection of wound of RLE due to pseudomonas. 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/11/2016 - possible recurrent SBO per CT on 12/10/2016 - ileus - leukocytosis likely reactive from multiple emesis on 12/10/2016 (afebrile) - resolved - MRSA nasal colonization Recommendations: - continue antibiotics: tobramycin (12/12/2016-) for 7 days (for pseudomonas and acineto), cefepime (12/12/2016-) for KPC in sputum, and linezolid (12/12/2016-) for MRSA - mupirocin (12/12/2016-) for MRSA decolonization for 10 days - monitor GFR closely - wound care - contact isolation Management d/w [facility] and Dr. Tang Problems: Consultation Date/Type/Reason Admit Date/Time December 08, 2016 at 12:01 Initial Consult Date 12/09/16 Type of Consultation: Infectious Disease Referring Provider: MARLA AKBAR MD 24 HR Interval Summary Free Text/Dictation Planning to place PICC line for TPN and awaiting surgical consult per [facility]. Unable to perform ROS d/t chronic encephalopathy. Exam/Review of Systems Vital Signs Vitals Vital Signs Date Time Temp Pulse Resp B/P Pulse Ox O2 Delivery O2 Flow Rate FiO2 12/14/16 17:10 79 18 97 35 12/14/16 15:23 98.4 133/71 Intake and Output 12/13/16 12/13/16 12/14/16 15:00 23:00 07:00 Intake Total 1200 ml 300 ml Output Total 260 ml 350 ml Balance 940 ml -50 ml Exam Constitutional: frail, non-verbal, other (chronically debilitated) Head: normocephalic Eyes: nl sclera Neck: other (trach with vent) Respiratory: diminished breath sounds Cardiovascular: regular rate and rhythm Gastrointestinal: bowel sounds (present), other (NGT to sxn; ostomy bag over old GT site with greenish output, colostomy intact- stoma pink, no stool), soft Genitourinary - Male: other (vincent cath present) Extremities: other (contracted) Skin: other (wounds- see nurse notes for details) Results Result Diagram: 12/14/16 0655 12/14/16 0655 Results 24 hrs Laboratory Tests Test 12/14/16 06:55 12/14/16 09:00 White Blood Count 9.4 Red Blood Count 3.57 L Hemoglobin 10.4 L Hematocrit 33.0 L Mean Corpuscular Volume 92.4 Mean Corpuscular Hemoglobin 29.1 Mean Corpuscular Hemoglobin Concent 31.5 L Red Cell Distribution Width 18.4 H Platelet Count 213 Mean Platelet Volume 13.1 H Neutrophils % 63.9 Lymphocytes % 19.9 Monocytes % 10.2 Eosinophils % 5.2 Basophils % 0.4 Nucleated Red Blood Cells % 0.0 Neutrophils # 6.0 Lymphocytes # 1.9 Monocytes # 1.0 H Eosinophils # 0.5 Basophils # 0.0 Nucleated Red Blood Cells # 0.0 Sodium Level 146 H Potassium Level 3.3 L Chloride Level 110 Carbon Dioxide Level 28 Anion Gap 11 Blood Urea Nitrogen 18 Creatinine 0.81 Glucose Level 106 Calcium Level 8.8 Prothrombin Time 16.3 H Prothrombin Time Ratio 1.3 INR International Normalized Ratio 1.30 Medications Medications Current Medications Pantoprazole (Protonix Iv) 40 mg BID@06,18 IV Last administered on 12/14/16 17 :21; Admin Dose 40 MG; Start 12/09/16 at 06:00 Acetaminophen (Tylenol Supp) [address] PAIN OR TEMP ABOVE 38C; Start at 20:30 Morphine Sulfate (morphine) 2 mg Q4H PRN IV PAIN; Start 12/08/16 at 20:30 Collagenase (Santyl) 1 applic DAILY TOP Last administered on 12/14/16 08:20; Admin Dose 1 APPLIC; Start 12/09/16 at 09:00 Collagenase 1 applic 1 applic PRN PRN TOP SOILED OR DISLODGED DRESSING; Start 12/09/16 at 04:30 Potassium Chloride/Dextrose/ Sod Cl (D5-NS + KCl 20 Meq) 1,000 ml @ 80 mls/hr [id number] IV Last administered on 12/14/16 10:08; Admin Dose 80 MLS/HR; Start at 17:00 Diazepam (Valium) 5 mg Q12H PRN IV ANXIETY Last administered on 12/09/16 23:41 ; Admin Dose 5 MG; Start 12/09/16 at 23:00 Ondansetron HCl (Zofran Inj) 4 mg Q4H PRN IV NAUSEA AND/OR VOMITING Last administered on 12/10/16 16:55; Admin Dose 4 MG; Start 12/10/16 at 17:00 Metoprolol Tartrate (Lopressor) 5 mg Q6H PRN IV SBP >160 or HR > 120 Last administered on 12/10/16 23:14; Admin Dose 5 MG; Start 12/10/16 at 17:00 Hydralazine HCl (Apresoline) 20 mg Q6H PRN IV SBP > 160 Last administered on 12:17; Admin Dose 20 MG; Start 12/10/16 at 17:00 Tobramycin TOBRAMYCIN PER PHARMACY NOTE XX ; Start 12/12/16 at 14:30; Stop 12/19 at 14:29 Cefepime HCl 50 ml @ 100 mls/hr Q12 IVPB Last administered on 12/14/16 08:20 ; Admin Dose 100 MLS/HR; Start 12/12/16 at 21:00 Linezolid (Zyvox 600mg/D5W (Pmx)) 300 ml @ 300 mls/hr Q12 IVPB Last administered on 12/14/16 09:06; Admin Dose 300 MLS/HR; Start 12/12/16 at 21:00 Mupirocin APPLY TO bilateral nares BID TOP Last administered on 12/14/16 08:20 ; Admin Dose 1 APPLIC; Start 12/12/16 at 21:00; Stop 12/22/16 at 20:59 Tobramycin/Sodium Chloride (Tobramycin/NS) 107.5 ml @ 103.75 mls/ hr Q48H IVPB Last administered on 12/14/16 17:21; Admin Dose 103.75 MLS/HR; Start at 18:00 KO LOVING NP December 14, 2016 18:48
--- NOTE | 2016-12-14 20:41 | RADRPT ---
PROCEDURE: XR Chest. CLINICAL INDICATION: NG tube placement TECHNIQUE: Single frontal view of the chest was obtained COMPARISON: 12/11/2016 FINDINGS: NG tube is in the stomach. Tracheostomy tube. The heart is not enlarged. Calcification in the aort ic arch. Tortuosity of thoracic aorta again seen. Patchy increased densities in right upper and bi lateral lower lungs left greater than right which could represent infiltrates not significantly thomas ged in the right upper lung and left lower lung and improved in the right lower lung compared to pre vious study. ECG leads projected over the chest. There may be a small left pleural effusion. IMPRESSION: NG tube in stomach. Please see additional findings above. RPTAT: HJES .Germán Rankin MD, MD Date Time Electronically viewed and signed by .Germán Rankin MD, on 12/14/2016 20:41 .S/
[2016-12-15] VITALS (26 sets, daily range): BP systolic 135–190; BP diastolic 74–104; PULSE 61–101; RESP 16–33
[2016-12-15] MEDS: ALBUTEROL 18 GM INHALER INH SCH ×4 (01:22→19:36)
[2016-12-15] MEDS: IPRATROPIUM (HFA) 12.9 GM INHALER INH SCH ×4 (01:22→19:35)
[2016-12-15] MEDS: hydrALAzine 20 MG INJ IV PRN (04:01)
[2016-12-15] MEDS: PANTOPRAZOLE 40 MG INJ IV SCH ×2 (06:35→17:19)
[2016-12-15 07:33] LABS: ADD SCAN DIFF NO
[2016-12-15 07:37] LABS: ABNORMAL IP MESSAGE 1; BASOPHILS % 0.2 % (0.0-2.0); EOSINOPHILS # 0.2 10^3/ul (0.0-0.5); EOSINOPHILS % 3.4 % (0.0-7.0); HEMATOCRIT 34.9 % (42.0-52.0); HEMOGLOBIN 11.3 g/dl (14.0-18.0); LYMPHOCYTES % 17.2 % (15.0-51.0); MEAN CORPUSCULAR HGB CONC 32.4 g/dl (32.0-37.0); MEAN CORPUSCULAR VOLUME 89.5 fl (82.0-101.0); MEAN PLATELET VOLUME 13.1 fl (7.4-10.4); MONOCYTE # 0.5 10^3/ul (0.3-0.9); MONOCYTES % 9.1 % (0.0-11.0); NEUTROPHILS % 69.4 % (39.0-77.0); NUCLEATED RED BLOOD CELLS% 0.3 /100WBC (0.0-0.0); PLATELET COUNT 192 10^3/UL (140-415); RED CELL DISTRIBUTION WIDTH 18.1 % (11.5-14.5); WHITE BLOOD COUNT 5.8 10^3/ul (4.8-10.8)
[2016-12-15 08:13] LABS: CALCIUM 8.9 mg/dl (8.4-10.2); CREATININE 0.82 mg/dl (0.61-1.24)
[2016-12-15] MEDS: LINEZOLID 600 MG/D5W (PMX) 300 ML IVPB SCH ×2 (08:32→21:16)
[2016-12-15] MEDS: MUPIROCIN 2% 15 GM CR TOP SCH ×2 (08:33→21:17)
[2016-12-15] MEDS: COLLAGENASE 30 GM TUBE TOP SCH (08:33)
[2016-12-15] MEDS ORDERED: LIDOCAINE 1% (MPF) 5 ML VIAL SC ONE (09:00)
[2016-12-15] MEDS: CEFEPIME 2GM/50 ML (PMX) 50 ML IVPB SCH ×2 (10:04→21:12)
--- NOTE | 2016-12-15 13:45 | RADRPT ---
PROCEDURE: XR Chest. CLINICAL INDICATION: Check PICC line position. TECHNIQUE: Single frontal view. COMPARISON: 12/14/2016. FINDINGS: There is a right arm PICC line with the tip in the mid superior vena cava. The tracheostomy tube an d left arm PICC line remain in satisfactory position. There is atelectasis or pneumonia at the lung bases, left worse than right, unchanged. The heart size is normal. There is calcification in the aorta consistent with atherosclerosis. There is no pleural effusion. There is no pneumothorax. IMPRESSION: 1. Satisfactory position of right arm PICC line. 2. No other change from 12/14/2016. RPTAT: QQ .Carter Hogan MD, MD Date Time Electronically viewed and signed by .Carter Hogan MD, MD on 12/15/2016 13:45 .R/
--- NOTE | 2016-12-15 13:45 | RADRPT ---
PROCEDURE: Ultrasound guidance for placement of needle in right upper extremity vein. CLINICAL INDICATION: Venous access. TECHNIQUE: Limited sonography of the right upper extremity was performed. Ultrasound images were recorded and stored in the patient's medical record. COMPARISON: None. FINDINGS: The ultrasound images demonstrate a patent right upper extremity vein. The PICC line was inserted b y the PICC line nurse. IMPRESSION: 1. Ultrasound guidance for a needle placement in a right upper extremity vein. 2. The visualized right upper extremity vein is patent. RPTAT: QQ .Carter Hogan MD, MD Date Time Electronically viewed and signed by .Carter Hogan MD, MD on 12/15/2016 13:45 .R/
--- NOTE | 2016-12-15 15:11 | CONS ---
Date/Time of Note Date/Time of Note DATE: 12/15/16 TIME: 14:39 Consult Date/Type/Reason Admit Date/Time December 08, 2016 at 12:01 Initial Consult Date 12/10/16 Type of Consultation: Infectious Disease Reason for Consultation Infectious Disease f/u for HCAP/VAP and UTI Ordering Provider: MARLA AKBAR MD Subjective Unable Objective Vital Signs Date Time Temp Pulse Resp B/P Pulse Ox O2 Delivery O2 Flow Rate FiO2 12/15/16 13:54 79 21 100 35 12/15/16 12:00 98.9 135/94 Intake and Output 12/14/16 12/14/16 12/15/16 15:00 23:00 07:00 Intake Total 1607.5 ml 800 ml Output Total 0 ml 310 ml 500 ml Balance 0 ml 1297.5 ml 300 ml Exam Constitutional: Frail, non-verbal, debilitated and ventilator supported Head: normocephalic Eyes: closed/sleeping Mouth: dry, chapped & crusted Neck: tracheostomy in place Respiratory: diminished breath sounds, tracheostomy and ventilator supported Cardiovascular: regular rate and rhythm Gastrointestinal: NGT in left nares to LCS; abdomen soft with audible bowel sounds, ostomy bag over old GT site with greeniss/brown gastric contents, colostomy intact- stoma pink Genitourinary: vincent cath present Extremities: contracted, IV access right forearm - no redness or swelling, Piccline right anticubital intact Skin: multiple wounds- see nurse notes for details Results/Medications Result Diagram: 12/15/16 0645 12/15/16 0645 Results 24 hrs Laboratory Tests Test 12/15/16 06:45 White Blood Count 5.8 # Red Blood Count 3.90 L Hemoglobin 11.3 L Hematocrit 34.9 L Mean Corpuscular Volume 89.5 Mean Corpuscular Hemoglobin 29.0 Mean Corpuscular Hemoglobin Concent 32.4 Red Cell Distribution Width 18.1 H Platelet Count 192 Mean Platelet Volume 13.1 H Neutrophils % 69.4 Lymphocytes % 17.2 Monocytes % 9.1 Eosinophils % 3.4 Basophils % 0.2 Nucleated Red Blood Cells % 0.3 H Neutrophils # 4.0 Lymphocytes # 1.0 Monocytes # 0.5 Eosinophils # 0.2 Basophils # 0.0 Nucleated Red Blood Cells # 0.0 Sodium Level 146 H Potassium Level 3.0 L Chloride Level 110 Carbon Dioxide Level 23 Anion Gap 16 Blood Urea Nitrogen 16 Creatinine 0.82 Glucose Level 119 Calcium Level 8.9 Medications Current Medications Pantoprazole (Protonix Iv) 40 mg BID@06,18 IV Last administered on 12/15/16 06 :35; Admin Dose 40 MG; Start 12/09/16 at 06:00 Acetaminophen (Tylenol Supp) 650 mg Q4H PRN [place] PAIN OR TEMP ABOVE 38C; Start at 20:30 Morphine Sulfate (morphine) 2 mg Q4H PRN IV PAIN; Start 12/08/16 at 20:30 Collagenase (Santyl) 1 applic DAILY TOP Last administered on 12/15/16 08:33; Admin Dose 1 APPLIC; Start 12/09/16 at 09:00 Collagenase 1 applic 1 applic PRN PRN TOP SOILED OR DISLODGED DRESSING; Start 12/09/16 at 04:30 Potassium Chloride/Dextrose/ Sod Cl (D5-NS + KCl 20 Meq) 1,000 ml @ 80 mls/hr [id number] IV Last administered on 12/14/16 10:08; Admin Dose 80 MLS/HR; Start at 17:00 Diazepam (Valium) 5 mg Q12H PRN IV ANXIETY Last administered on 12/09/16 23:41 ; Admin Dose 5 MG; Start 12/09/16 at 23:00 Ondansetron HCl (Zofran Inj) 4 mg Q4H PRN IV NAUSEA AND/OR VOMITING Last administered on 12/10/16 16:55; Admin Dose 4 MG; Start 12/10/16 at 17:00 Metoprolol Tartrate (Lopressor) 5 mg Q6H PRN IV SBP >160 or HR > 120 Last administered on 12/10/16 23:14; Admin Dose 5 MG; Start 12/10/16 at 17:00 Hydralazine HCl (Apresoline) 20 mg Q6H PRN IV SBP > 160 Last administered on 04:01; Admin Dose 20 MG; Start 12/10/16 at 17:00 Tobramycin TOBRAMYCIN PER PHARMACY NOTE XX ; Start 12/12/16 at 14:30; Stop 12/19 at 14:29 Cefepime HCl 50 ml @ 100 mls/hr Q12 IVPB Last administered on 12/15/16 10:04 ; Admin Dose 100 MLS/HR; Start 12/12/16 at 21:00 Linezolid (Zyvox 600mg/D5W (Pmx)) 300 ml @ 300 mls/hr Q12 IVPB Last administered on 12/15/16 08:32; Admin Dose 300 MLS/HR; Start 12/12/16 at 21:00 Mupirocin APPLY TO bilateral nares BID TOP Last administered on 12/15/16 08:33 ; Admin Dose 1 APPLIC; Start 12/12/16 at 21:00; Stop 12/22/16 at 20:59 Tobramycin/Sodium Chloride (Tobramycin/NS) 107.5 ml @ 103.75 mls/ hr Q48H IVPB Last administered on 12/14/16 17:21; Admin Dose 103.75 MLS/HR; Start at 18:00 Assessment/Plan Chief Complaint/Hosp Course Assessment/plan Chief Complaint/Hosp Course - severe sepsis due to HCAP - HCAP/VAP due to kleb (KPC) and pseudo - UTI due to acineto and pseudo related to chronic indwelling Vincent - multiple pressure ulcer - recurrent infection of ulcer of RLE due to MRSA and pseudo. 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 the wound culture grew carbapenemase producing kleb, enterococci and pseudo - Dysphagia s/p EGD and new G tube placement 09/15/2016 - h/o infection of wound of RLE due to pseudomonas. 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/11/2016 - possible recurrent SBO per CT on 12/10/2016 - ileus - leukocytosis likely reactive from multiple emesis on 12/10/2016 (afebrile) - resolved - MRSA nasal colonization - Piccline placed today and planning to start TPN - surgical consult pending Recommendations: - continue antibiotics: tobramycin (12/12/2016-) for 7 days (for pseudomonas and acineto), cefepime (12/12/2016-) for KPC in sputum, and linezolid (12/12/2016-) for MRSA - mupirocin (12/12/2016-) for MRSA decolonization for 10 days - monitor GFR closely - wound care - contact isolation - Care and management d/w [facility] and Dr. Tang Problems: Additional Assessment/Plan s/p Piccline placement today SUSHMA JUDD December 15, 2016 14:49
[2016-12-15] MEDS ORDERED: SOD CHLORIDE 0.9% 100 ML ONE (16:29)
[2016-12-15] MEDS: D5-NS + KCL 20 MEQ 1,000 ML IV SCH ×2 (16:51→23:00)
--- NOTE | 2016-12-15 17:12 | PN ---
Date/Time of Note Date/Time of Note DATE: 12/15/16 TIME: 17:09 Assessment/Plan VTE Prophylaxis VTE Prophylaxis Intervention: SCD's Lines/Catheters IV Catheter Type (from Nrs): PICC Line Central line still needed: Yes Urinary Cath still in place: Yes Reason Cath still needed: urinary retention Assessment/Plan Chief Complaint/Hosp Course - Upper gastrointestinal bleed. Continue Protonix. Dr. Pryor is following in gastric gastroenterology consultation. - Possible SBO, NGT to LWS. Dr. Teran is following patient in general surgery consultation. - Sepsis secondary to healthcare acquired pneumonia. - Healthcare facility-acquired pneumonia. Continue antibiotics. Dr. Tang is following in infection disease consultation. - UTI. 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 - Ventilator dependent respiratory failure with tracheostomy. Dr. Saenz is following in pulmonology consultation. - Chronic obstructive pulmonary disease. - Hypertension. - Dysphagia. -Chronic Chaudhari catheter. -Colostomy -Bedbound status. Further recommendations based on clinical course. Plan of care discussed with Dr. Meeks. Problems: Subjective 24 Hr Interval Summary Free Text/Dictation Patient status post PICC line insertion, will be restarted on TPN and lipids, NG tube to suction. Exam/Review of Systems Vital Signs Vitals Vital Signs Date Time Temp Pulse Resp B/P Pulse Ox O2 Delivery O2 Flow Rate FiO2 12/15/16 16:36 72 12/15/16 16:00 100.0 20 154/100 98 12/15/16 15:55 35 Intake and Output 12/14/16 12/14/16 12/15/16 15:00 23:00 07:00 Intake Total 1607.5 ml 800 ml Output Total 0 ml 310 ml 500 ml Balance 0 ml 1297.5 ml 300 ml Exam Constitutional: frail, non-verbal Psych: confusion Head: normocephalic Eyes: nl conjunctiva ENMT: nl external ears & nose Neck: other (Tracheostomy), supple Respiratory: diminished breath sounds Cardiovascular: other (Atrial arrhythmia) Gastrointestinal: non-tender, other (G-tube, colostomy), soft Genitourinary - Male: other (Chaudhari) Musculoskeletal: other (Contracted) Extremities: normal pulses Neurological: other (Chronic encephalopathy) Skin: other (Wounds) Results Result Diagram: 12/15/1645 5/17/17 0645 Results 24 hrs Laboratory Tests Test 12/15/16 06:45 White Blood Count 5.8 # Red Blood Count 3.90 L Hemoglobin 11.3 L Hematocrit 34.9 L Mean Corpuscular Volume 89.5 Mean Corpuscular Hemoglobin 29.0 Mean Corpuscular Hemoglobin Concent 32.4 Red Cell Distribution Width 18.1 H Platelet Count 192 Mean Platelet Volume 13.1 H Neutrophils % 69.4 Lymphocytes % 17.2 Monocytes % 9.1 Eosinophils % 3.4 Basophils % 0.2 Nucleated Red Blood Cells % 0.3 H Neutrophils # 4.0 Lymphocytes # 1.0 Monocytes # 0.5 Eosinophils # 0.2 Basophils # 0.0 Nucleated Red Blood Cells # 0.0 Sodium Level 146 H Potassium Level 3.0 L Chloride Level 110 Carbon Dioxide Level 23 Anion Gap 16 Blood Urea Nitrogen 16 Creatinine 0.82 Glucose Level 119 Calcium Level 8.9 Medications Medications Current Medications Pantoprazole (Protonix Iv) 40 mg BID@06,18 IV Last administered on 12/15/16 06 :35; Admin Dose 40 MG; Start 12/09/16 at 06:00 Acetaminophen (Tylenol Supp) 650 mg Q4H PRN [place] PAIN OR TEMP ABOVE 38C; Start at 20:30 Morphine Sulfate (morphine) 2 mg Q4H PRN IV PAIN; Start 12/08/16 at 20:30 Collagenase (Santyl) 1 applic DAILY TOP Last administered on 12/15/16 08:33; Admin Dose 1 APPLIC; Start 12/09/16 at 09:00 Collagenase 1 applic 1 applic PRN PRN TOP SOILED OR DISLODGED DRESSING; Start 12/09/16 at 04:30 Potassium Chloride/Dextrose/ Sod Cl (D5-NS + KCl 20 Meq) 1,000 ml @ 80 mls/hr [id number] IV Last administered on 12/15/16 16:51; Admin Dose 80 MLS/HR; Start at 17:00 Diazepam (Valium) 5 mg Q12H PRN IV ANXIETY Last administered on 12/09/16 23:41 ; Admin Dose 5 MG; Start 12/09/16 at 23:00 Ondansetron HCl (Zofran Inj) 4 mg Q4H PRN IV NAUSEA AND/OR VOMITING Last administered on 12/10/16 16:55; Admin Dose 4 MG; Start 12/10/16 at 17:00 Metoprolol Tartrate (Lopressor) 5 mg Q6H PRN IV SBP >160 or HR > 120 Last administered on 12/10/16 23:14; Admin Dose 5 MG; Start 12/10/16 at 17:00 Hydralazine HCl (Apresoline) 20 mg Q6H PRN IV SBP > 160 Last administered on 04:01; Admin Dose 20 MG; Start 12/10/16 at 17:00 Tobramycin TOBRAMYCIN PER PHARMACY NOTE XX ; Start 12/12/16 at 14:30; Stop 12/19 at 14:29 Cefepime HCl 50 ml @ 100 mls/hr Q12 IVPB Last administered on 12/15/16 10:04 ; Admin Dose 100 MLS/HR; Start 12/12/16 at 21:00 Linezolid (Zyvox 600mg/D5W (Pmx)) 300 ml @ 300 mls/hr Q12 IVPB Last administered on 12/15/16 08:32; Admin Dose 300 MLS/HR; Start 12/12/16 at 21:00 Mupirocin APPLY TO bilateral nares BID TOP Last administered on 12/15/16 08:33 ; Admin Dose 1 APPLIC; Start 12/12/16 at 21:00; Stop 12/22/16 at 20:59 Tobramycin/Sodium Chloride (Tobramycin/NS) 107.5 ml @ 103.75 mls/ hr Q48H IVPB Last administered on 12/14/16 17:21; Admin Dose 103.75 MLS/HR; Start at 18:00 IV Flush (NS 10 ml) 10 ml PRN PRN IV IV PROTOCOL; Start 12/15/16 at 15:30 AMY MORAN December 15, 2016 17:12
[2016-12-15] MEDS ORDERED: POTASSIUM CHLORIDE 250 ML IVPB ONE (17:30)
[2016-12-15] MEDS: TPN 1,000 ML IV SCH (21:00)
[2016-12-15] MEDS: FAT EMULSION 20% 250 ML IV SCH (21:00)
[2016-12-16] VITALS (24 sets, daily range): BP systolic 144–174; BP diastolic 67–85; PULSE 61–107; RESP 16–25
[2016-12-16] MEDS: ALBUTEROL 18 GM INHALER INH SCH ×4 (01:09→19:55)
[2016-12-16] MEDS: IPRATROPIUM (HFA) 12.9 GM INHALER INH SCH ×4 (01:09→19:55)
[2016-12-16] MEDS: PANTOPRAZOLE 40 MG INJ IV SCH ×2 (05:07→18:27)
[2016-12-16 08:19] LABS: ADD SCAN DIFF NO
[2016-12-16 08:46] LABS: ABNORMAL IP MESSAGE 1; BASOPHILS % 0.3 % (0.0-2.0); EOSINOPHILS # 0.4 10^3/ul (0.0-0.5); EOSINOPHILS % 5.5 % (0.0-7.0); HEMATOCRIT 33.8 % (42.0-52.0); HEMOGLOBIN 10.7 g/dl (14.0-18.0); LYMPHOCYTES # 1.6 10^3/ul (0.8-2.9); LYMPHOCYTES % 23.7 % (15.0-51.0); MEAN CORPUSCULAR HGB CONC 31.7 g/dl (32.0-37.0); MEAN CORPUSCULAR VOLUME 91.6 fl (82.0-101.0); MEAN PLATELET VOLUME 13.6 fl (7.4-10.4); MONOCYTE # 0.6 10^3/ul (0.3-0.9); MONOCYTES % 8.5 % (0.0-11.0); NEUTROPHIL # 4.1 10^3/ul (1.6-7.5); NEUTROPHILS % 61.8 % (39.0-77.0); NUCLEATED RED BLOOD CELLS% 0.3 /100WBC (0.0-0.0); PLATELET COUNT 202 10^3/UL (140-415); RED BLOOD COUNT 3.69 10^6/ul (4.70-6.10); RED CELL DISTRIBUTION WIDTH 18.2 % (11.5-14.5); WHITE BLOOD COUNT 6.6 10^3/ul (4.8-10.8)
[2016-12-16 08:56] LABS: CALCIUM 9.2 mg/dl (8.4-10.2); CREATININE 0.81 mg/dl (0.61-1.24); POTASSIUM 3.3 mmol/L (3.5-5.1)
[2016-12-16 09:23] LABS: MAGNESIUM 1.7 mg/dl (1.7-2.5); PHOSPHORUS 2.7 mg/dl (2.5-4.9)
[2016-12-16] MEDS: COLLAGENASE 30 GM TUBE TOP SCH (09:24)
[2016-12-16] MEDS: LINEZOLID 600 MG/D5W (PMX) 300 ML IVPB SCH ×2 (09:24→21:42)
[2016-12-16] MEDS: MUPIROCIN 2% 15 GM CR TOP SCH ×2 (09:24→21:35)
[2016-12-16] MEDS: ONDANSETRON 4 MG INJ IV PRN (09:37)
[2016-12-16] MEDS: CEFEPIME 2GM/50 ML (PMX) 50 ML IVPB SCH ×2 (11:00→21:35)
[2016-12-16] MEDS: D5-NS + KCL 20 MEQ 1,000 ML IV SCH (11:30)
[2016-12-16] MEDS ORDERED: POTASSIUM CHLORIDE 20 MEQ in SOD CHLORIDE 0.9% 100 ML IVPB SCH (13:00)
--- NOTE | 2016-12-16 13:46 | PN ---
Date/Time of Note Date/Time of Note DATE: 12/16/16 TIME: 13:45 Assessment/Plan Lines/Catheters IV Catheter Type (from [facility]): Peripheral IV Urinary Cath still in place: Yes Assessment/Plan Assessment/Plan - Upper gastrointestinal bleed. Continue Protonix. Dr. Pryor is following in gastric gastroenterology consultation. - Possible SBO, NGT to LWS. Dr. Teran is following patient in general surgery consultation. - Sepsis secondary to healthcare acquired pneumonia. - Healthcare facility-acquired pneumonia. Continue antibiotics. Dr. Tang is following in infection disease consultation. - UTI. 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 - Ventilator dependent respiratory failure with tracheostomy. Dr. Saenz is following in pulmonology consultation. - Chronic obstructive pulmonary disease. - Hypertension. - Dysphagia. -Chronic Chaudhari catheter. -Colostomy -Bedbound status. Further recommendations based on clinical course. Plan of care discussed with Dr. Meeks. Exam/Review of Systems Vital Signs Vitals Vital Signs Date Time Temp Pulse Resp B/P Pulse Ox O2 Delivery O2 Flow Rate FiO2 12/16/16 12:18 97 12/16/16 11:23 16 100 35 12/16/16 11:12 96.4 155/85 Intake and Output 12/15/16 12/15/16 12/16/16 15:00 23:00 07:00 Intake Total 1150 ml 570 ml Output Total 0 ml 740 ml 800 ml Balance 0 ml 410 ml -230 ml Results Result Diagram: 12/16/16 0705 12/16/16 0705 Results 24 hrs Laboratory Tests Test 12/15/16 20:59 12/16/16 07:05 Bedside Glucose 75 White Blood Count 6.6 Red Blood Count 3.69 L Hemoglobin 10.7 L Hematocrit 33.8 L Mean Corpuscular Volume 91.6 Mean Corpuscular Hemoglobin 29.0 Mean Corpuscular Hemoglobin Concent 31.7 L Red Cell Distribution Width 18.2 H Platelet Count 202 Mean Platelet Volume 13.6 H Neutrophils % 61.8 Lymphocytes % 23.7 Monocytes % 8.5 Eosinophils % 5.5 Basophils % 0.3 Nucleated Red Blood Cells % 0.3 H Neutrophils # 4.1 Lymphocytes # 1.6 Monocytes # 0.6 Eosinophils # 0.4 Basophils # 0.0 Nucleated Red Blood Cells # 0.0 Sodium Level 143 Potassium Level 3.3 L Chloride Level 114 H Carbon Dioxide Level 22 Anion Gap 10 # Blood Urea Nitrogen 14 Creatinine 0.81 Glucose Level 110 Calcium Level 9.2 Phosphorus Level 2.7 Magnesium Level 1.7 Medications Medications Current Medications Pantoprazole (Protonix Iv) 40 mg BID@06,18 IV Last administered on 12/16/16 05 :07; Admin Dose 40 MG; Start 12/09/16 at 06:00 Acetaminophen (Tylenol Supp) 650 mg Q4H PRN [place] PAIN OR TEMP ABOVE 38C; Start at 20:30 Morphine Sulfate (morphine) 2 mg Q4H PRN IV PAIN; Start 12/08/16 at 20:30 Collagenase (Santyl) 1 applic DAILY TOP Last administered on 12/16/16 09:24; Admin Dose 1 APPLIC; Start 12/09/16 at 09:00 Collagenase 1 applic 1 applic PRN PRN TOP SOILED OR DISLODGED DRESSING; Start 12/09/16 at 04:30 Potassium Chloride/Dextrose/ Sod Cl (D5-NS + KCl 20 Meq) 1,000 ml @ 80 mls/hr [id number] IV Last administered on 12/16/16 11:30; Admin Dose 80 MLS/HR; Start at 17:00 Diazepam (Valium) 5 mg Q12H PRN IV ANXIETY Last administered on 12/09/16 23:41 ; Admin Dose 5 MG; Start 12/09/16 at 23:00 Ondansetron HCl (Zofran Inj) 4 mg Q4H PRN IV NAUSEA AND/OR VOMITING Last administered on 12/16/16 09:37; Admin Dose 4 MG; Start 12/10/16 at 17:00 Metoprolol Tartrate (Lopressor) 5 mg Q6H PRN IV SBP >160 or HR > 120 Last administered on 12/10/16 23:14; Admin Dose 5 MG; Start 12/10/16 at 17:00 Hydralazine HCl (Apresoline) 20 mg Q6H PRN IV SBP > 160 Last administered on 04:01; Admin Dose 20 MG; Start 12/10/16 at 17:00 Tobramycin TOBRAMYCIN PER PHARMACY NOTE XX ; Start 12/12/16 at 14:30; Stop 12/19 at 14:29 Cefepime HCl 50 ml @ 100 mls/hr Q12 IVPB Last administered on 12/16/16 11:00 ; Admin Dose 100 MLS/HR; Start 12/12/16 at 21:00 Linezolid (Zyvox 600mg/D5W (Pmx)) 300 ml @ 300 mls/hr Q12 IVPB Last administered on 12/16/16 09:24; Admin Dose 300 MLS/HR; Start 12/12/16 at 21:00 Mupirocin APPLY TO bilateral nares BID TOP Last administered on 12/16/16 09:24 ; Admin Dose 1 APPLIC; Start 12/12/16 at 21:00; Stop 12/22/16 at 20:59 Tobramycin/Sodium Chloride (Tobramycin/NS) 107.5 ml @ 103.75 mls/ hr Q48H IVPB Last administered on 12/14/16 17:21; Admin Dose 103.75 MLS/HR; Start at 18:00 IV Flush (NS 10 ml) 10 ml PRN PRN IV IV PROTOCOL; Start 12/15/16 at 15:30 Miscellaneous Information TOBRAMYCIN TROUGH AT 1700 ONCE ONCE XX ; Start 12/16/16 at 17:00; Stop 12/16/16 at 17:01 Fat Emulsion Intravenous 250 ml @ 20.833 mls/ hr Q24H IV ; Start 12/15/16 at 21 :00 Total Parenteral Nutrition 1,000 ml @ 60 mls/hr [id number] IV ; Start 12/15/16 at 21:00 Potassium Chloride/Sodium Chloride (KCl/NS) 110 ml @ 55 mls/hr ONCE IVPB Last administered on 12/16/16 13:24; Admin Dose 55 MLS/HR; Start 12/16/16 at 13:00; Stop 12/16/16 at 14:59 MARIO ROWE December 16, 2016 13:45
[2016-12-16] MEDS: FAT EMULSION 20% 250 ML IV SCH (18:04)
[2016-12-16] MEDS: TPN 1,000 ML IV SCH (18:04)
--- NOTE | 2016-12-16 18:21 | CONS ---
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 the wound culture grew carbapenemase producing kleb, enterococci and pseudo - Dysphagia s/p EGD and new G tube placement 09/15/2016 - h/o infection of wound of RLE due to pseudomonas. 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/11/2016 - possible recurrent SBO per CT on 12/10/2016 - ileus - leukocytosis likely reactive from multiple emesis on 12/10/2016 (afebrile) - resolved - MRSA nasal colonization - Piccline placed today and planning to start TPN - surgical consult pending Recommendations: - continue antibiotics: tobramycin (12/12/2016-) for 7 days (for pseudomonas and acineto), cefepime (12/12/2016-) for KPC in sputum, and linezolid (12/12/2016-) for MRSA - mupirocin (12/12/2016-) for MRSA decolonization for 10 days - monitor GFR closely - wound care - contact isolation Problems: Consultation Date/Type/Reason Admit Date/Time December 08, 2016 at 12:01 Type of Consultation: Infectious Disease Referring Provider: MARLA AKBAR MD Exam/Review of Systems Vital Signs Vitals Vital Signs Date Time Temp Pulse Resp B/P Pulse Ox O2 Delivery O2 Flow Rate FiO2 12/16/16 17:43 65 20 100 35 12/16/16 15:20 97.0 144/79 Intake and Output 12/15/16 12/15/16 12/16/16 15:00 23:00 07:00 Intake Total 1150 ml 570 ml Output Total 0 ml 740 ml 800 ml Balance 0 ml 410 ml -230 ml Exam Constitutional: non-verbal Psych: no complaints Head: normocephalic Eyes: EOMI Respiratory: congested cough, crackles/rales, diminished breath sounds Cardiovascular: regular rate and rhythm Gastrointestinal: non-tender, soft Results Result Diagram: 12/16/16 0705 12/16/16 0705 Results 24 hrs Laboratory Tests Test 12/15/16 20:59 12/16/16 07:05 Bedside Glucose 75 White Blood Count 6.6 Red Blood Count 3.69 L Hemoglobin 10.7 L Hematocrit 33.8 L Mean Corpuscular Volume 91.6 Mean Corpuscular Hemoglobin 29.0 Mean Corpuscular Hemoglobin Concent 31.7 L Red Cell Distribution Width 18.2 H Platelet Count 202 Mean Platelet Volume 13.6 H Neutrophils % 61.8 Lymphocytes % 23.7 Monocytes % 8.5 Eosinophils % 5.5 Basophils % 0.3 Nucleated Red Blood Cells % 0.3 H Neutrophils # 4.1 Lymphocytes # 1.6 Monocytes # 0.6 Eosinophils # 0.4 Basophils # 0.0 Nucleated Red Blood Cells # 0.0 Sodium Level 143 Potassium Level 3.3 L Chloride Level 114 H Carbon Dioxide Level 22 Anion Gap 10 # Blood Urea Nitrogen 14 Creatinine 0.81 Glucose Level 110 Calcium Level 9.2 Phosphorus Level 2.7 Magnesium Level 1.7 Medications Medications Current Medications Pantoprazole (Protonix Iv) 40 mg BID@18 IV Last administered on 12/16/16t 05 :07; Admin Dose 40 MG; Start 12/09/16 at 06:00 Acetaminophen (Tylenol Supp) 650 mg Q4H PRN [place] PAIN OR TEMP ABOVE 38C; Start at 20:30 Morphine Sulfate (morphine) 2 mg Q4H PRN IV PAIN; Start 12/08/16 at 20:30 Collagenase (Santyl) 1 applic DAILY TOP Last administered on 12/16/16 09:24; Admin Dose 1 APPLIC; Start 12/09/16 at 09:00 Collagenase 1 applic 1 applic PRN PRN TOP SOILED OR DISLODGED DRESSING; Start 12/09/16 at 04:30 Potassium Chloride/Dextrose/ Sod Cl (D5-NS + KCl 20 Meq) 1,000 ml @ 80 mls/hr [id number] IV Last administered on 12/16/16 11:30; Admin Dose 80 MLS/HR; Start at 17:00 Diazepam (Valium) 5 mg Q12H PRN IV ANXIETY Last administered on 12/09/16 23:41 ; Admin Dose 5 MG; Start 12/09/16 at 23:00 Ondansetron HCl (Zofran Inj) 4 mg Q4H PRN IV NAUSEA AND/OR VOMITING Last administered on 12/16/16 09:37; Admin Dose 4 MG; Start 12/10/16 at 17:00 Metoprolol Tartrate (Lopressor) 5 mg Q6H PRN IV SBP >160 or HR > 120 Last administered on 12/10/16 23:14; Admin Dose 5 MG; Start 12/10/16 at 17:00 Hydralazine HCl (Apresoline) 20 mg Q6H PRN IV SBP > 160 Last administered on 04:01; Admin Dose 20 MG; Start 12/10/16 at 17:00 Tobramycin TOBRAMYCIN PER PHARMACY NOTE XX ; Start 12/12/16 at 14:30; Stop 12/19 at 14:29 Cefepime HCl 50 ml @ 100 mls/hr Q12 IVPB Last administered on 12/16/16 11:00 ; Admin Dose 100 MLS/HR; Start 12/12/16 at 21:00 Linezolid (Zyvox 600mg/D5W (Pmx)) 300 ml @ 300 mls/hr Q12 IVPB Last administered on 12/16/16 09:24; Admin Dose 300 MLS/HR; Start 12/12/16 at 21:00 Mupirocin APPLY TO bilateral nares BID TOP Last administered on 12/16/16 09:24 ; Admin Dose 1 APPLIC; Start 12/12/16 at 21:00; Stop 12/22/16 at 20:59 Tobramycin/Sodium Chloride (Tobramycin/NS) 107.5 ml @ 103.75 mls/ hr Q48H IVPB Last administered on 12/14/16 17:21; Admin Dose 103.75 MLS/HR; Start at 18:00 IV Flush 10 ml 10 ml PRN PRN IV IV PROTOCOL; Start 12/15/16 at 15:30 Fat Emulsion Intravenous 250 ml @ 20.833 mls/ hr Q24H IV Last administered on 12/16/16 18:04; Admin Dose 20.833 MLS/HR; Start 12/15/16 at 21:00 Total Parenteral Nutrition (Tpn) 1,000 ml @ 60 mls/hr [id number] IV Last administered on 12/16/16 18:04; Admin Dose 60 MLS/HR; Start 12/15/16 at 21:00 IV Flush (NS 10 ml) 10 ml PRN PRN IV IV PROTOCOL; Start 12/16/16 at 18:00 MARIBELL SUN MD December 16, 2016 18:21
--- NOTE | 2016-12-16 20:04 | RADRPT ---
PROCEDURE: XR Abdomen. CLINICAL INDICATION: Abdominal pain. Increase emesis. Nasogastric tube TECHNIQUE: Supine views of the abdomen were obtained. COMPARISON: 12/12/2016 FINDINGS: A nasogastric tube is once again seen in the gastric lumen. Scattered stool in the large bowel is s een. The stent small bowel is seen in the central abdomen. No free intraperitoneal air is seen. T here are no abnormal calcifications overlying the urinary tracts. The osseous structures are unremar kable. IMPRESSION: Distended small bowel in the central abdomen. RPTAT: [facility]PN[facility] Physician Pedro Pablo Date Time Electronically viewed and signed by Physician Pedro Pablo on 12/16/2016 20:04 /
--- NOTE | 2016-12-16 20:57 | RADRPT ---
PROCEDURE: XR Chest. CLINICAL INDICATION: PICC placement. TECHNIQUE: Chest x-ray, single view. COMPARISON: 12/15/2016. FINDINGS: The cardiac silhouette is magnified. Tortuosity of the thoracic aorta is observed. Low lung volume s are present. Focal opacification within the left lung base is observed and unchanged. Coarse addi g markings are seen throughout the remainder of the lungs and are unchanged. A right upper extremit y PICC is in place and terminates within the lower SVC, which is satisfactory in position. The ente ovi tube terminates within the stomach. IMPRESSION: Satisfactory positioning of right upper extremity PICC. RPTAT: [facility] .Liberty Goyal MD, Date Time Electronically viewed and signed by .Liberty Goyal MD, on 12/16/2016 20:56 .T/
--- NOTE | 2016-12-16 21:03 | PN ---
DATE: CHIEF COMPLAINT: The patient has been vomiting. OBJECTIVE: GENERAL: The patient is lethargic. HEENT: The patient has a nasogastric tube. At this time, he was being fed through the nasogastric tube. The KUB done a couple days ago did not show any ileus or obstruction. ABDOMEN: Soft. LABORATORY WORKUP: Shows WBC 6600, hemoglobin 10.7. The BUN is 14, creatinine is 0.81. CLINICAL IMPRESSION: The patient vomiting, probably secondary to gastric ulcers or probably seconda ry to ileus. PLAN: At this time, recommend KUB. Dictated By: KATELYN SILVERMAN MD NC/NTS Conf#: [id number] DID#: [id number] CC: MARLA AKBAR MD;*EndCC*
[2016-12-17] VITALS (27 sets, daily range): BP systolic 134–175; BP diastolic 70–98; PULSE 79–168; RESP 16–28
[2016-12-17] MEDS: IPRATROPIUM (HFA) 12.9 GM INHALER INH SCH ×4 (01:40→19:29)
[2016-12-17] MEDS: ALBUTEROL 18 GM INHALER INH SCH ×4 (01:41→19:30)
[2016-12-17] MEDS: PANTOPRAZOLE 40 MG INJ IV SCH ×2 (05:26→18:11)
[2016-12-17 06:16] LABS: ADD SCAN DIFF NO
[2016-12-17] MEDS: TPN 1,000 ML IV SCH ×2 (06:19→23:07)
[2016-12-17 06:30] LABS: BASOPHILS % 0.2 % (0.0-2.0); EOSINOPHILS # 0.3 10^3/ul (0.0-0.5); EOSINOPHILS % 2.8 % (0.0-7.0); HEMATOCRIT 29.2 % (42.0-52.0); HEMOGLOBIN 9.4 g/dl (14.0-18.0); LYMPHOCYTES # 1.9 10^3/ul (0.8-2.9); LYMPHOCYTES % 17.7 % (15.0-51.0); MEAN CORPUSCULAR HEMOGLOBIN 29.3 pg (29.0-33.0); MEAN CORPUSCULAR HGB CONC 32.2 g/dl (32.0-37.0); MONOCYTE # 0.6 10^3/ul (0.3-0.9); MONOCYTES % 5.1 % (0.0-11.0); NEUTROPHIL # 8.1 10^3/ul (1.6-7.5); NEUTROPHILS % 73.7 % (39.0-77.0); PLATELET COUNT 185 10^3/UL (140-415); RED BLOOD COUNT 3.21 10^6/ul (4.70-6.10); RED CELL DISTRIBUTION WIDTH 18.1 % (11.5-14.5)
[2016-12-17 07:09] LABS: CALCIUM 8.8 mg/dl (8.4-10.2); CREATININE 0.86 mg/dl (0.61-1.24); POTASSIUM 3.2 mmol/L (3.5-5.1)
[2016-12-17] MEDS: COLLAGENASE 30 GM TUBE TOP SCH (10:02)
[2016-12-17] MEDS: CEFEPIME 2GM/50 ML (PMX) 50 ML IVPB SCH ×2 (10:02→23:08)
[2016-12-17] MEDS: MUPIROCIN 2% 15 GM CR TOP SCH ×2 (10:03→23:10)
[2016-12-17] MEDS: D5-NS + KCL 20 MEQ 1,000 ML IV SCH ×2 (10:07)
[2016-12-17] MEDS: LINEZOLID 600 MG/D5W (PMX) 300 ML IVPB SCH ×2 (10:31→23:07)
--- NOTE | 2016-12-17 15:30 | CONS ---
DATE OF ADMISSION: 12/08/2016 DATE OF CONSULTATION: 12/17/2016 TYPE OF CONSULTATION: Surgical. REQUESTING PHYSICIAN: Ford Meeks MD REASON FOR CONSULTATION: To evaluate the patient for possible small-bowel obstruction. Thank you, dear Dr. Meeks, for asking us to see this patient in consultation (me and Dr. Teran). HISTORY OF PRESENT ILLNESS: As you know, this is a 71-year-old gentleman who was admitted on 12/08/2016 to this hospital [facility], because [facility] they noticed that the patient had had 1 or more episodes of bloody vomiting. In the emergency room, the patient was seen and evaluated and was admitted with the impression of GI bleeding, also with the impression of healthcare-acquired pneumonia, and also urinary tract infection. The patient was started on antibiotics and the patient was admitted to the telemetry floor for further evaluation, workup and management. Dr. Pryor, the GI colleague, saw the patient in consultation for the GI bleeding. Apparently, the patient has had many significant comorbidities which include as followin. The patient is a noncommunicative resident of a [facility]. 2. He has had another episode of GI bleeding in 08/2016 and was admitted here. An EGD was done and revealed presence of a gastric ulcer at the site of G-tube 3. Chronic encephalopathy. 4. Subdural hematoma due to trauma. 5. Ventilator-dependent respiratory failure. 6. Chronic obstructive pulmonary disease. 7. Dysphagia. 8. Urinary retention requiring Chaudhari catheterization. 9. Functional quadriplegia. 10. Left-sided hip fracture due to trauma. 11. Left-sided clavicular fracture due to trauma. 12. History of decubitus ulcer for which he was admitted to the hospital for that matter. 13. History of atrial fibrillation and dysrhythmia. 14. History of diverting colostomy, reason not clear, may be to protect the sacrococcygeal wound for healing. 15. History of craniotomy. 16. History of splenectomy. 17. History of laparotomy and enterolysis. 18. Some people have mentioned history of partial gastrectomy, not clear. 19. In 08/2016, the patient was admitted because of GI bleeding and at that time, patient had a CT scan which was suspicious for a small-bowel obstruction because of dilated stomach and dilated small bowel loops. One our colleague surgeons saw the patient and he ordered a small bowel series. The small bowel series did not show any obstruction, actually within 3 to 4 hours the contrast material had reached to the colon. ALLERGIES: NOT KNOWN. MEDICATIONS: Please refer to the [facility] PHYSICAL EXAMINATION: VITAL SIGNS: Temperature 98.8, heart rate 75 regular, respirations 17, blood pressure 144/70, saturation 96% on 35% FIO2 on the ventilator. GENERAL: Today, patient is on the ventilator. Tracheostomy is there. The patient's eyes are closed and does not respond to verbal stimuli at all. Very minimal response to tactile and pressure stimuli, but trying to open his eyes, but he does not open his eyes. His mouth is completely opened. The mucosa of the tongue is quite dry. Tracheostomy is there and is connected to the ventilator. His left upper extremity is contracted at the elbow level. The right side is contracted at the wrist level. ABDOMEN: Removing the dressing, the patient has a bag inserted over the site of previously present G-tube, which was removed at this admission because of migration of the G-tube and it has been draining some gastric juice from there. It is covered with a colostomy or ileostomy bag. There is another colostomy bag over the end colostomy in the left lower quadrant. Abdomen is slightly distended. Abdomen on palpation is actually soft even though it is distended, gaseously. Bowel sounds, I would say that it appears that there is a little bit of ileotic bowel sounds, but I can hear 2+/4+ and occasionally 3+/4+ bowel sounds. I did do a colostomy digital examination, which is a little bit tight at the level of the fascia of the muscle, but there is no stool in it. As far as down I could reach, I could not feel any stool. GENITOURINARY: Chaudhari catheter is inserted and draining urine. EXTREMITIES: There are no hip contractures or knee contractures, but the ankles are contracted and he has equinus deformity of both feet. HEART: Regular. LUNGS: Decreased respiratory breathing sounds at the bases. LABORATORY DATA: Today, WBC is 11,000 with 73% neutrophils. Hemoglobin is 9.4 , hematocrit 29.2, platelets 185. On 12/11/2016, WBC was 19,400 and 88% segmented (the patient is on antibiotics). Chemistry today, sodium 139, potassium 3.2, slightly low, BUN and creatinine are normal. Albumin on 2016, which is about 9 days ago, was 4.2 and globulin was 5. AST was 149 on admission and ALT was 234. Calcium was 10.4. Lactic acid on admission was 2.8 , later on 3 and later on 1.4. Coagulation on 12/14/2016, PT 16.3, INR was 1.3 , which is normal range. IMAGING: On 12/10/2016, CT scan of the abdomen and pelvis was done which revealed the following impression: 1. Pattern concerning for recurrent small-bowel obstruction, similar to the study of 09/23/2016, either partial or distal complete. Severe adynamic ileus is a possibility. Followup evaluation is recommended. 2. The stoma along the left anterior abdominal wall is again noted (which is the colostomy site). 3. Trace amount of pelvic ascites without pneumoperitoneum and with vascular engorgement of the upper abdominal ascites. 4. Position of the gastrostomy tube possibly extraluminal interposed between the anterior gastric wall in the peritoneal cavity. Following this x-ray, the GI colleague has removed the G-tube and has placed a colostomy bag on top of it so that the drainage can been accumulated. It has been draining bilious material up to yesterday, but today there is no drainage. Multiple abdominal x-ray have been taken and the last one was taken yesterday, which shows a nasogastric tube once again seen in the gastric lumen. Scattered stool in the large bowel is seen. Distended small bowel is seen in the center of the abdomen. No free intraperitoneal air is seen. There are no abnormal calcifications overlying the urinary tract. The osseous structures are unremarkable. It should be mentioned that I reviewed and I saw the CT scan of the abdomen from 12/10/2016 and also the abdominal x-ray today from 12/16/2016. There is quite a significant amount of very hard stool which shows most prominently on the CT scan on this admission, which is filling up the right colon and transverse colon and is coming down to almost the level of the diverting colostomy. ASSESSMENT AND PLAN: This is a 71-year-old gentleman who due to chronic respiratory failure has a tracheostomy and is ventilator-dependent and also because of dysphagia, has had G-tube and has been G-tube feeding, and has [facility]. His albumin actually has been very good on this admission. He was admitted in late August this year because of GI bleeding and they found that there was a gastric ulcer on duodenoscopy and EGD. Again, on 12/08/2016, the patient was admitted because of the GI bleeding possibly from the ostomy, from the gastrostomy site. He was found to have pneumonia and also urinary tract infection. All the time, there has been some distention of the abdomen, which on the KUBs and CT scan has been suggestive of possible partial or complete small-bowel obstruction. This pattern was actually seen in late August as well, but following performance of a small bowel follow-through with Gastrografin, there was no obstruction and the contrast material reached the colon within 4 hours. Now today, I see that the abdomen is soft even though partially distended and bowel sounds are present actually, it is not normal, but is not absent. I believe that most probably the cause of this abdominal distention and small bowel distention, is the hardened stool in the transverse colon and ascending colon and obstruction due to fecal material impacted in the colon. I do not think there are hard adhesions bands because it has not been in the past as well. So what I would suggest: 1. That I keep the NG tube in place. 2. I am going to order a small bowel follow-through to be done tomorrow through the NG tube. 3. Then, we have to give mineral oil after we make sure that the NG tube is in proper place and there is no complete obstruction. Then, we will give mineral oil through the NG tube to lubricate the hard stool and gradually make the hard stools to pass through the colostomy. Meanwhile, the patient can get nutrition through PICC line and TPN. I will continue following along with the other colleagues. Dictated By: VANIA PINEDA/MACK Conf#: [id number] DID#: [id number] MTDD
--- NOTE | 2016-12-17 17:54 | CONS ---
Date/Time of Note Date/Time of Note DATE: 12/17/16 TIME: 17:53 Assessment/Plan Assessment/Plan Chief Complaint/Hosp Course - severe sepsis due to HCAP - HCAP/VAP due to kleb (KPC) and pseudo - UTI due to acineto and pseudo related to chronic indwelling Vincent - multiple pressure ulcer - recurrent infection of ulcer of RLE due to MRSA and pseudo. 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 the wound culture grew carbapenemase producing kleb, enterococci and pseudo - Dysphagia s/p EGD and new G tube placement 09/15/2016 - h/o infection of wound of RLE due to pseudomonas. 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/11/2016 - possible recurrent SBO per CT on 12/10/2016 - ileus - recurrent leukocytosis likely reactive from multiple emesis on 12/10/2016 & (remains afebrile) - MRSA nasal colonization Recommendations: - continue antibiotics: tobramycin (12/12/2016-) for 7 days (for pseudomonas and acineto), cefepime (12/12/2016-) for KPC in sputum, and linezolid (12/12/2016-) for MRSA - mupirocin (12/12/2016-) for MRSA decolonization for 10 days - monitor GFR closely - trend WBC - F/u SBFT which was recommended by Dr. Gay - wound care - contact isolation Management d/w [facility] and Dr. Tang Problems: Consultation Date/Type/Reason Admit Date/Time December 08, 2016 at 12:01 Initial Consult Date 12/09/16 Type of Consultation: Infectious Disease Referring Provider: MARLA AKBAR MD 24 HR Interval Summary Free Text/Dictation Did not tolerate NGT feeds with >1L suctioned out yesterday after bilious emesis ; NGT to sxn, tolerating TPN per [facility]. WBC 11. Pt afebrile. Seen by Dr. Gay. Unable to perform ROS d/t chronic encephalopathy Subjective hx not possible: pt non-verbal Exam/Review of Systems Vital Signs Vitals Vital Signs Date Time Temp Pulse Resp B/P Pulse Ox O2 Delivery O2 Flow Rate FiO2 12/17/16 16:00 95 12/17/16 15:48 21 97 35 12/17/16 15:39 98.3 164/88 12/17/16 04:00 Mechanical Ventilator Intake and Output 12/16/16 12/16/16 12/17/16 15:00 23:00 07:00 Intake Total 100 ml Output Total 220 ml 1900 ml 860 ml Balance -220 ml -1800 ml -860 ml Exam Constitutional: frail, non-verbal, other (chronically debilitated) Head: normocephalic Eyes: nl sclera Neck: other (trach with vent) Respiratory: diminished breath sounds Cardiovascular: regular rate and rhythm Gastrointestinal: bowel sounds (present), other (NGT to sxn; ostomy bag over old GT site with greenish output, colostomy intact- stoma pink, no stool), soft , mildly distended Genitourinary - Male: other (vincent cath present) Extremities: other (contracted). Bilateral foot drop noted. RUE PICC with no e/ o infection. Skin: other (wounds- see nurse notes for details) Results Result Diagram: 12/17/16 0523 12/17/16 0523 Results 24 hrs Laboratory Tests Test 12/17/16 05:23 White Blood Count 11.0 #H Red Blood Count 3.21 L Hemoglobin 9.4 L Hematocrit 29.2 L Mean Corpuscular Volume 91.0 Mean Corpuscular Hemoglobin 29.3 Mean Corpuscular Hemoglobin Concent 32.2 Red Cell Distribution Width 18.1 H Platelet Count 185 Mean Platelet Volume 13.0 H Neutrophils % 73.7 Lymphocytes % 17.7 Monocytes % 5.1 Eosinophils % 2.8 Basophils % 0.2 Nucleated Red Blood Cells % 0.0 Neutrophils # 8.1 H Lymphocytes # 1.9 Monocytes # 0.6 Eosinophils # 0.3 Basophils # 0.0 Nucleated Red Blood Cells # 0.0 Sodium Level 139 Potassium Level 3.2 L Chloride Level 110 Carbon Dioxide Level 23 Anion Gap 9 Blood Urea Nitrogen 14 Creatinine 0.86 Glucose Level 116 Calcium Level 8.8 Medications Medications Current Medications Pantoprazole (Protonix Iv) 40 mg BID@06,18 IV Last administered on 12/17/16 05 :26; Admin Dose 40 MG; Start 12/09/16 at 06:00 Acetaminophen (Tylenol Supp) 650 mg Q4H PRN NM PAIN OR TEMP ABOVE 38C; Start at 20:30 Morphine Sulfate (morphine) 2 mg Q4H PRN IV PAIN; Start 12/08/16 at 20:30 Collagenase (Santyl) 1 applic DAILY TOP Last administered on 12/17/16 10:02; Admin Dose 1 APPLIC; Start 12/09/16 at 09:00 Collagenase 1 applic 1 applic PRN PRN TOP SOILED OR DISLODGED DRESSING; Start 12/09/16 at 04:30 Potassium Chloride/Dextrose/ Sod Cl (D5-NS + KCl 20 Meq) 1,000 ml @ 80 mls/hr [id number] IV Last administered on 12/17/16 10:07; Admin Dose 80 MLS/HR; Start at 17:00 Diazepam (Valium) 5 mg Q12H PRN IV ANXIETY Last administered on 12/09/16 23:41 ; Admin Dose 5 MG; Start 12/09/16 at 23:00 Ondansetron HCl (Zofran Inj) 4 mg Q4H PRN IV NAUSEA AND/OR VOMITING Last administered on 12/16/16 09:37; Admin Dose 4 MG; Start 12/10/16 at 17:00 Metoprolol Tartrate (Lopressor) 5 mg Q6H PRN IV SBP >160 or HR > 120 Last administered on 12/10/16 23:14; Admin Dose 5 MG; Start 12/10/16 at 17:00 Hydralazine HCl (Apresoline) 20 mg Q6H PRN IV SBP > 160 Last administered on 04:01; Admin Dose 20 MG; Start 12/10/16 at 17:00 Tobramycin TOBRAMYCIN PER PHARMACY NOTE XX ; Start 12/12/16 at 14:30; Stop 12/19 at 14:29 Cefepime HCl 50 ml @ 100 mls/hr Q12 IVPB Last administered on 12/17/16 10:02 ; Admin Dose 100 MLS/HR; Start 12/12/16 at 21:00 Linezolid (Zyvox 600mg/D5W (Pmx)) 300 ml @ 300 mls/hr Q12 IVPB Last administered on 12/17/16 10:31; Admin Dose 300 MLS/HR; Start 12/12/16 at 21:00 Mupirocin (Bactroban) APPLY TO bilateral nares BID TOP Last administered on 10:03; Admin Dose 1 APPLIC; Start 12/12/16 at 21:00; Stop 12/22/16 at 20 :59 IV Flush 10 ml 10 ml PRN PRN IV IV PROTOCOL; Start 12/15/16 at 15:30 Fat Emulsion Intravenous 250 ml @ 20.833 mls/ hr Q24H IV Last administered on 12/16/16 18:04; Admin Dose 20.833 MLS/HR; Start 12/15/16 at 21:00 Total Parenteral Nutrition (Tpn) 1,000 ml @ 60 mls/hr [id number] IV Last administered on 12/16/16 18:04; Admin Dose 60 MLS/HR; Start 12/15/16 at 21:00 IV Flush 10 ml 10 ml PRN PRN IV IV PROTOCOL; Start 12/16/16 at 18:00 Tobramycin/Sodium Chloride (Tobramycin/NS) 107.5 ml @ 107.5 mls/ hr Q96H IVPB ; Start 12/18/16 at 18:00 Miscellaneous Information (*Rx Drug Level Order Reminder*) 1 ONCE ONCE XX ; Start 12/18/16 at 05:00; Stop 12/18/16 at 05:01 KO LOVING NP December 17, 2016 17:54
--- NOTE | 2016-12-17 18:16 | PN ---
Date/Time of Note Date/Time of Note DATE: 12/17/16 TIME: 18:14 Assessment/Plan VTE Prophylaxis VTE Prophylaxis Intervention: SCD's Lines/Catheters IV C[facility]ter Type (from [facility]): PICC Line Central line still needed: Yes Urinary Cath still in place: Yes Reason Cath still needed: urinary retention Assessment/Plan Chief Complaint/Hosp Course - Upper gastrointestinal bleed. Continue Protonix. Dr. Pryor is following in gastric gastroenterology consultation. - Possible SBO, NGT to LWS. Dr. Teran is following patient in general surgery consultation. Continue TPN and lipids. - Sepsis secondary to healthcare acquired pneumonia. - Healthcare facility-acquired pneumonia. Continue antibiotics. Dr. Tang is following in infection disease consultation. - UTI. 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 - Ventilator dependent respiratory failure with tracheostomy. Dr. Saenz is following in pulmonology consultation. - Chronic obstructive pulmonary disease. - Hypertension. - Dysphagia. -Chronic Chaudhari catheter. -Colostomy -Bedbound status. Further recommendations based on clinical course. Plan of care discussed with Dr. Meeks. Problems: Subjective 24 Hr Interval Summary Free Text/Dictation Patient's continues NG tube to low suctioning, continued on TPN and lipids. Exam/Review of Systems Vital Signs Vitals Vital Signs Date Time Temp Pulse Resp B/P Pulse Ox O2 Delivery O2 Flow Rate FiO2 12/17/16 16:00 95 12/17/16 15:48 21 97 35 12/17/16 15:39 98.3 164/88 12/17/16 04:00 Mechanical Ventilator Intake and Output 12/16/16 12/16/16 12/17/16 15:00 23:00 07:00 Intake Total 100 ml Output Total 220 ml 1900 ml 860 ml Balance -220 ml -1800 ml -860 ml Exam Constitutional: frail, non-verbal Psych: confusion Head: normocephalic Eyes: nl conjunctiva ENMT: nl external ears & nose Neck: other (Tracheostomy), supple Respiratory: diminished breath sounds Cardiovascular: other (Atrial arrhythmia) Gastrointestinal: non-tender, other (G-tube, colostomy), soft Genitourinary - Male: other (Chaudhari) Musculoskeletal: other (Contracted) Extremities: normal pulses Neurological: other (Chronic encephalopathy) Skin: other (Wounds) Results Result Diagram: 12/17/1623 12/17/1623 Results 24 hrs Laboratory Tests Test 12/17/16 05:23 White Blood Count 11.0 #H Red Blood Count 3.21 L Hemoglobin 9.4 L Hematocrit 29.2 L Mean Corpuscular Volume 91.0 Mean Corpuscular Hemoglobin 29.3 Mean Corpuscular Hemoglobin Concent 32.2 Red Cell Distribution Width 18.1 H Platelet Count 185 Mean Platelet Volume 13.0 H Neutrophils % 73.7 Lymphocytes % 17.7 Monocytes % 5.1 Eosinophils % 2.8 Basophils % 0.2 Nucleated Red Blood Cells % 0.0 Neutrophils # 8.1 H Lymphocytes # 1.9 Monocytes # 0.6 Eosinophils # 0.3 Basophils # 0.0 Nucleated Red Blood Cells # 0.0 Sodium Level 139 Potassium Level 3.2 L Chloride Level 110 Carbon Dioxide Level 23 Anion Gap 9 Blood Urea Nitrogen 14 Creatinine 0.86 Glucose Level 116 Calcium Level 8.8 Medications Medications Current Medications Pantoprazole (Protonix Iv) 40 mg BID@18 IV Last administered on 12/17/16 18 :11; Admin Dose 40 MG; Start 12/09/16 at 06:00 Acetaminophen (Tylenol Supp) 650 mg Q4H PRN MA PAIN OR TEMP ABOVE 38C; Start at 20:30 Morphine Sulfate (morphine) 2 mg Q4H PRN IV PAIN; Start 12/08/16 at 20:30 Collagenase (Santyl) 1 applic DAILY TOP Last administered on 12/17/16 10:02; Admin Dose 1 APPLIC; Start 12/09/16 at 09:00 Collagenase 1 applic 1 applic PRN PRN TOP SOILED OR DISLODGED DRESSING; Start 12/09/16 at 04:30 Potassium Chloride/Dextrose/ Sod Cl (D5-NS + KCl 20 Meq) 1,000 ml @ 80 mls/hr [id number] IV Last administered on 12/17/16 10:07; Admin Dose 80 MLS/HR; Start at 17:00 Diazepam (Valium) 5 mg Q12H PRN IV ANXIETY Last administered on 12/09/16 23:41 ; Admin Dose 5 MG; Start 12/09/16 at 23:00 Ondansetron HCl (Zofran Inj) 4 mg Q4H PRN IV NAUSEA AND/OR VOMITING Last administered on 12/16/16 09:37; Admin Dose 4 MG; Start 12/10/16 at 17:00 Metoprolol Tartrate (Lopressor) 5 mg Q6H PRN IV SBP >160 or HR > 120 Last administered on 12/10/16 23:14; Admin Dose 5 MG; Start 12/10/16 at 17:00 Hydralazine HCl (Apresoline) 20 mg Q6H PRN IV SBP > 160 Last administered on 04:01; Admin Dose 20 MG; Start 12/10/16 at 17:00 Tobramycin TOBRAMYCIN PER PHARMACY NOTE XX ; Start 12/12/16 at 14:30; Stop 12/19 at 14:29 Cefepime HCl 50 ml @ 100 mls/hr Q12 IVPB Last administered on 12/17/16 10:02 ; Admin Dose 100 MLS/HR; Start 12/12/16 at 21:00 Linezolid (Zyvox 600mg/D5W (Pmx)) 300 ml @ 300 mls/hr Q12 IVPB Last administered on 12/17/16 10:31; Admin Dose 300 MLS/HR; Start 12/12/16 at 21:00 Mupirocin (Bactroban) APPLY TO bilateral nares BID TOP Last administered on 10:03; Admin Dose 1 APPLIC; Start 12/12/16 at 21:00; Stop 12/22/16 at 20 :59 IV Flush 10 ml 10 ml PRN PRN IV IV PROTOCOL; Start 12/15/16 at 15:30 Fat Emulsion Intravenous 250 ml @ 20.833 mls/ hr Q24H IV Last administered on 12/16/16 18:04; Admin Dose 20.833 MLS/HR; Start 12/15/16 at 21:00 Total Parenteral Nutrition (Tpn) 1,000 ml @ 60 mls/hr [id number] IV Last administered on 12/16/16 18:04; Admin Dose 60 MLS/HR; Start 12/15/16 at 21:00 IV Flush 10 ml 10 ml PRN PRN IV IV PROTOCOL; Start 12/16/16 at 18:00 Tobramycin/Sodium Chloride (Tobramycin/NS) 107.5 ml @ 107.5 mls/ hr Q96H IVPB ; Start 12/18/16 at 18:00 Miscellaneous Information (*Rx Drug Level Order Reminder*) 1 ONCE ONCE XX ; Start 12/18/16 at 05:00; Stop 12/18/16 at 05:01 AMY MORAN December 17, 2016 18:16
[2016-12-17] MEDS: hydrALAzine 20 MG INJ IV PRN (20:04)
[2016-12-17] MEDS: FAT EMULSION 20% 250 ML IV SCH (23:07)
[2016-12-18] VITALS (25 sets, daily range): BP systolic 142–158; BP diastolic 72–89; PULSE 73–168; RESP 16–31
[2016-12-18] MEDS: D5-NS + KCL 20 MEQ 1,000 ML IV SCH ×2 (00:05→13:30)
[2016-12-18] MEDS: IPRATROPIUM (HFA) 12.9 GM INHALER INH SCH ×4 (01:03→20:12)
[2016-12-18] MEDS: ALBUTEROL 18 GM INHALER INH SCH ×4 (01:03→20:12)
[2016-12-18] MEDS: PANTOPRAZOLE 40 MG INJ IV SCH ×2 (05:06→17:45)
[2016-12-18 06:52] LABS: ADD SCAN DIFF NO
[2016-12-18 06:56] LABS: ABNORMAL IP MESSAGE 1; BASOPHILS % 0.4 % (0.0-2.0); EOSINOPHILS # 0.6 10^3/ul (0.0-0.5); EOSINOPHILS % 8.9 % (0.0-7.0); HEMATOCRIT 28.3 % (42.0-52.0); HEMOGLOBIN 9.9 g/dl (14.0-18.0); LYMPHOCYTES # 1.6 10^3/ul (0.8-2.9); LYMPHOCYTES % 22.1 % (15.0-51.0); MEAN CORPUSCULAR HEMOGLOBIN 32.4 pg (29.0-33.0); MEAN CORPUSCULAR VOLUME 92.5 fl (82.0-101.0); MONOCYTE # 0.5 10^3/ul (0.3-0.9); MONOCYTES % 7.6 % (0.0-11.0); NEUTROPHIL # 4.3 10^3/ul (1.6-7.5); NEUTROPHILS % 60.2 % (39.0-77.0); NUCLEATED RED BLOOD CELLS% 0.3 /100WBC (0.0-0.0); PLATELET COUNT 150 10^3/UL (140-415); RED BLOOD COUNT 3.06 10^6/ul (4.70-6.10); RED CELL DISTRIBUTION WIDTH 18.2 % (11.5-14.5); WHITE BLOOD COUNT 7.1 10^3/ul (4.8-10.8)
[2016-12-18 07:15] LABS: PHOSPHORUS 1.5 mg/dl (2.5-4.9)
[2016-12-18 08:34] LABS: POTASSIUM 3.3 mmol/L (3.5-5.1)
[2016-12-18 08:37] LABS: CREATININE 0.77 mg/dl (0.61-1.24)
[2016-12-18 08:38] LABS: CALCIUM 8.2 mg/dl (8.4-10.2)
[2016-12-18] MEDS ORDERED: MAGNESIUM SULFATE 3 GM in SOD CHLORIDE 0.9% 100 ML IVPB ONE (09:00)
[2016-12-18] MEDS: CEFEPIME 2GM/50 ML (PMX) 50 ML IVPB SCH ×2 (09:04→19:53)
[2016-12-18] MEDS: MUPIROCIN 2% 15 GM CR TOP SCH ×2 (09:06→19:56)
[2016-12-18] MEDS: LINEZOLID 600 MG/D5W (PMX) 300 ML IVPB SCH ×2 (09:06→21:16)
[2016-12-18] MEDS: COLLAGENASE 30 GM TUBE TOP SCH (09:06)
--- NOTE | 2016-12-18 12:35 | PN ---
DATE: 12/18/2016 SUBJECTIVE: Patient is noncommunicative, nonresponsive, eyes closed. So apparently no new complain t, no new events ____. OBJECTIVE: VITAL SIGNS: Temperature 98.1, heart rate 80, respirations 16, blood pressure 142/73, saturation 99 % on FIO2 35% on the ventilator. LABORATORY DATA: WBC 7100 with 60% neutrophils on the differential, hemoglobin 9.9, hematocrit ___ _.3, platelets 150. Sodium 136, potassium 3.3, slightly low. BUN, creatinine normal. Phosphorus and magnesium is low. I notified the nurse practitioner for medical service to pay attention to thi s. PHYSICAL EXAMINATION: GENERAL: The patient is on the ventilator. The patient's eyes are closed. No verbal response, no communication. No response to deep stimulation with pressure over the skin. ABDOMEN: Not very distended, mildly distended. Bowel sounds 2+ ____. NG tube is draining gastric juice, slightly brownish not greenish. From the site of the previous G tube there has been some davy inage in the bag which is on top of it. It is about 30 mL, slightly greenish. Colostomy, there is no stool and no air in the colostomy bag. LOWER EXTREMITIES: There is no sequential compression device on the legs (apparently patient was ad mitted for GI bleeding, so patient is not on Lovenox either). ASSESSMENT: Patient was admitted with possible upper gastrointestinal bleeding. They found that th e G tube was malpositioned, so it was removed, and from the site of the G-tube, there was a lot of d rainage of the gastric and bilious juice for a while, then gradually decreased. On CT scan and KUB, there was suggestion of a small-bowel obstruction. The patient has not had any stool or air in the colostomy in the past several days, though today, I noticed that on the computer, they have been ch arging that the patient had 2 bowel movements yesterday on November 17 and 1 bowel movement today on , but grossly there is no evidence of bowel movement, so I am not sure if this is correct or not . The nasogastric tube drainage is about 400 mL since the past 24 hours. It is not greenish, it is slightly brownish liquid. There is note that there is no intermittent suction available on the ree or, so they have put in a Gomco suction which does not have intermittent and is on low continuous, w hich is not the best. As I mentioned in my history and physical consultation, I do not think the p atient is obstructed. I see a lot of hard, ball-formed stool packing the transverse colon and right hemicolon and probably this is causing the distention of the small bowel and preventing passage of the gas. On Tuesday am going to order a small bowel followthrough with Gastrografin to assess the co ntinuity of the gastrointestinal tract up to the colostomy site. Meanwhile, will continue total par enteral nutrition. PLAN: 1. Continue antibiotics. 2. Continue NG tube. I recommend placement of the SCDs to the legs. Dictated By: VANIA PINEDA/MACK Conf#: [id number] DID#: [id number]
[2016-12-18] MEDS: MINERAL OIL 30ML CUP NGT SCH ×3 (13:00→21:16)
--- NOTE | 2016-12-18 13:39 | PN ---
Date/Time of Note Date/Time of Note DATE: 12/18/16 TIME: 13:32 Assessment/Plan VTE Prophylaxis VTE Prophylaxis Intervention: other Lines/Catheters IV C[facility]ter Type (from [facility]): Saline Lock Urinary Cath still in place: Yes Assessment/Plan Assessment/Plan - Electrolyte imbalance - Hypomagnesium- replete Mag, am labs - Hypokalemia- replete K, am labs, Kphos 20 MEq X 1 - Hypophosphatemia- replete Phos, am labs - Upper gastrointestinal bleed. Continue Protonix. Dr. Pryor is following in gastric gastroenterology consultation. - Possible SBO, NGT to LWS. Dr. Teran is following patient in general surgery consultation. Continue TPN and lipids. - Sepsis secondary to healthcare acquired pneumonia. - Healthcare facility-acquired pneumonia. Continue antibiotics. Dr. Tang is following in infection disease consultation. - UTI. 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 - Ventilator dependent respiratory failure with tracheostomy. Dr. Saenz is following in pulmonology consultation. - Chronic obstructive pulmonary disease. - Hypertension. - Dysphagia. -Chronic Chaudhari catheter. -Colostomy -Bedbound status. Further recommendations based on clinical course. Plan of care discussed with Dr. Meeks. Subjective 24 Hr Interval Summary Free Text/Dictation AFEBRILE, Hypomagnesium- replete Mag, am labs, Hypokalemia- replete K, am labs, Kphos 20 MEq X 1, Hypophosphatemia- replete Phos, am labs, [facility]- will do TPN adjustments.[facility] staff. Constitutional: requiring IVF, requiring O2 Exam/Review of Systems Vital Signs Vitals Vital Signs Date Time Temp Pulse Resp B/P Pulse Ox O2 Delivery O2 Flow Rate FiO2 12/18/16 13:04 82 12/18/16 12:48 35 12/18/16 11:56 98.3 18 151/72 96 12/17/16 04:00 Mechanical Ventilator Intake and Output 12/17/16 12/17/16 12/18/16 15:00 23:00 07:00 Intake Total 100 ml Output Total 10 ml 1500 ml 860 ml Balance -10 ml -1400 ml -860 ml Exam Constitutional: alert Respiratory: diminished breath sounds Cardiovascular: nl pulses Gastrointestinal: non-tender, soft Musculoskeletal: muscle weakness Extremities: normal pulses Neurological: unresponsive Results Result Diagram: 12/18/16 0545 12/18/16 0745 Results 24 hrs Laboratory Tests Test 12/18/16 05:45 12/18/16 07:45 White Blood Count 7.1 # Red Blood Count 3.06 L Hemoglobin 9.9 L Hematocrit 28.3 L Mean Corpuscular Volume 92.5 Mean Corpuscular Hemoglobin 32.4 Mean Corpuscular Hemoglobin Concent 35.0 Red Cell Distribution Width 18.2 H Platelet Count 150 Mean Platelet Volume Neutrophils % 60.2 Lymphocytes % 22.1 Monocytes % 7.6 Eosinophils % 8.9 H Basophils % 0.4 Nucleated Red Blood Cells % 0.3 H Neutrophils # 4.3 Lymphocytes # 1.6 Monocytes # 0.5 Eosinophils # 0.6 H Basophils # 0.0 Nucleated Red Blood Cells # 0.0 Phosphorus Level 1.5 #L Magnesium Level 1.0 L Random Tobramycin Level < 0.6 Sodium Level 136 Potassium Level 3.3 L Chloride Level 103 Carbon Dioxide Level 25 Anion Gap 11 Blood Urea Nitrogen 17 Creatinine 0.77 Glucose Level 110 Calcium Level 8.2 L Medications Medications Current Medications Pantoprazole (Protonix Iv) 40 mg BID@06,18 IV Last administered on 12/18/16 05 :06; Admin Dose 40 MG; Start 12/09/16 at 06:00 Acetaminophen (Tylenol Supp) 650 mg Q4H PRN [place] PAIN OR TEMP ABOVE 38C; Start at 20:30 Morphine Sulfate (morphine) 2 mg Q4H PRN IV PAIN; Start 12/08/16 at 20:30 Collagenase (Santyl) 1 applic DAILY TOP Last administered on 12/18/16 09:06; Admin Dose 1 APPLIC; Start 12/09/16 at 09:00 Collagenase 1 applic 1 applic PRN PRN TOP SOILED OR DISLODGED DRESSING; Start 12/09/16 at 04:30 Potassium Chloride/Dextrose/ Sod Cl (D5-NS + KCl 20 Meq) 1,000 ml @ 80 mls/hr [id number] IV Last administered on 12/18/16 00:05; Admin Dose 80 MLS/HR; Start at 17:00 Diazepam (Valium) 5 mg Q12H PRN IV ANXIETY Last administered on 12/09/16 23:41 ; Admin Dose 5 MG; Start 12/09/16 at 23:00 Ondansetron HCl (Zofran Inj) 4 mg Q4H PRN IV NAUSEA AND/OR VOMITING Last administered on 12/16/16 09:37; Admin Dose 4 MG; Start 12/10/16 at 17:00 Metoprolol Tartrate (Lopressor) 5 mg Q6H PRN IV SBP >160 or HR > 120 Last administered on 12/10/16 23:14; Admin Dose 5 MG; Start 12/10/16 at 17:00 Hydralazine HCl (Apresoline) 20 mg Q6H PRN IV SBP > 160 Last administered on 20:04; Admin Dose 20 MG; Start 12/10/16 at 17:00 Tobramycin TOBRAMYCIN PER PHARMACY NOTE XX ; Start 12/12/16 at 14:30; Stop 12/19 at 14:29 Cefepime HCl 50 ml @ 100 mls/hr Q12 IVPB Last administered on 12/18/16 09:04 ; Admin Dose 100 MLS/HR; Start 12/12/16 at 21:00 Linezolid (Zyvox 600mg/D5W (Pmx)) 300 ml @ 300 mls/hr Q12 IVPB Last administered on 12/18/16 09:06; Admin Dose 300 MLS/HR; Start 12/12/16 at 21:00 Mupirocin (Bactroban) APPLY TO bilateral nares BID TOP Last administered on 09:06; Admin Dose 1 APPLIC; Start 12/12/16 at 21:00; Stop 12/22/16 at 20 :59 IV Flush 10 ml 10 ml PRN PRN IV IV PROTOCOL; Start 12/15/16 at 15:30 Fat Emulsion Intravenous 250 ml @ 20.833 mls/ hr Q24H IV Last administered on 12/17/16 23:07; Admin Dose 20.833 MLS/HR; Start 12/15/16 at 21:00 Total Parenteral Nutrition (Tpn) 1,000 ml @ 60 mls/hr [id number] IV Last administered on 12/17/16 23:07; Admin Dose 60 MLS/HR; Start 12/15/16 at 21:00 IV Flush 10 ml 10 ml PRN PRN IV IV PROTOCOL; Start 12/16/16 at 18:00 Tobramycin/Sodium Chloride (Tobramycin/NS) 107.5 ml @ 107.5 mls/ hr Q96H IVPB ; Start 12/18/16 at 18:00 Mineral Oil (Mineral Oil) 30 ml QID NGT ; Start 12/18/16 at 13:00 MARIO ROWE December 18, 2016 13:39
[2016-12-18] MEDS ORDERED: POTASSIUM PHOSPHATE 20 MEQ in SOD CHLORIDE 0.9% 250 ML IVPB ONE (14:00)
[2016-12-18] MEDS: TPN 1,000 ML IV SCH (16:37)
--- NOTE | 2016-12-18 17:39 | CONS ---
Date/Time of Note Date/Time of Note DATE: 12/18/16 TIME: 17:39 Assessment/Plan Assessment/Plan Chief Complaint/Hosp Course - severe sepsis due to HCAP - HCAP/VAP due to kleb (KPC) and pseudo - UTI due to acineto and pseudo related to chronic indwelling Chaudhari - multiple pressure ulcer - recurrent infection of ulcer of RLE due to MRSA and pseudo. 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 the wound culture grew carbapenemase producing kleb, enterococci and pseudo - Dysphagia s/p EGD and new G tube placement 09/15/2016 - h/o infection of wound of RLE due to pseudomonas. 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/11/2016 - possible recurrent SBO per CT on 12/10/2016 - ileus - recurrent leukocytosis likely reactive from multiple emesis on 12/10/2016 & (remains afebrile) - MRSA nasal colonization Recommendations: - continue antibiotics: tobramycin (12/12/2016-) for 7 days (for pseudomonas and acineto), cefepime (12/12/2016-) for KPC in sputum, and linezolid (12/12/2016-) for MRSA - mupirocin (12/12/2016-) for MRSA decolonization for 10 days - monitor GFR closely - trend WBC - F/u SBFT which was recommended by Dr. Gay - wound care - contact isolation Problems: Consultation Date/Type/Reason Admit Date/Time December 08, 2016 at 12:01 Type of Consultation: Infectious Disease Referring Provider: MARLA AKBAR MD Exam/Review of Systems Vital Signs Vitals Vital Signs Date Time Temp Pulse Resp B/P Pulse Ox O2 Delivery O2 Flow Rate FiO2 12/18/16 16:29 82 12/18/16 16:25 98.3 28 147/77 96 12/18/16 15:15 35 12/17/16 04:00 Mechanical Ventilator Intake and Output 12/17/16 12/17/16 12/18/16 15:00 23:00 07:00 Intake Total 100 ml Output Total 10 ml 1500 ml 860 ml Balance -10 ml -1400 ml -860 ml Results Result Diagram: 12/18/16 0545 12/18/16 0745 Results 24 hrs Laboratory Tests Test 12/18/16 05:45 12/18/16 07:45 12/18/16 15:00 White Blood Count 7.1 # Red Blood Count 3.06 L Hemoglobin 9.9 L Hematocrit 28.3 L Mean Corpuscular Volume 92.5 Mean Corpuscular Hemoglobin 32.4 Mean Corpuscular Hemoglobin Concent 35.0 Red Cell Distribution Width 18.2 H Platelet Count 150 Mean Platelet Volume Neutrophils % 60.2 Lymphocytes % 22.1 Monocytes % 7.6 Eosinophils % 8.9 H Basophils % 0.4 Nucleated Red Blood Cells % 0.3 H Neutrophils # 4.3 Lymphocytes # 1.6 Monocytes # 0.5 Eosinophils # 0.6 H Basophils # 0.0 Nucleated Red Blood Cells # 0.0 Phosphorus Level 1.5 #L 1.9 L Magnesium Level 1.0 L Random Tobramycin Level < 0.6 Sodium Level 136 Potassium Level 3.3 L Chloride Level 103 Carbon Dioxide Level 25 Anion Gap 11 Blood Urea Nitrogen 17 Creatinine 0.77 Glucose Level 110 Calcium Level 8.2 L Medications Medications Current Medications Pantoprazole (Protonix Iv) 40 mg BID@06,18 IV Last administered on 12/18/16t 05 :06; Admin Dose 40 MG; Start 12/09/16 at 06:00 Acetaminophen (Tylenol Supp) 650 mg Q4H PRN [place] PAIN OR TEMP ABOVE 38C; Start at 20:30 Morphine Sulfate (morphine) 2 mg Q4H PRN IV PAIN; Start 12/08/16 at 20:30 Collagenase (Santyl) 1 applic DAILY TOP Last administered on 12/18/16 09:06; Admin Dose 1 APPLIC; Start 12/09/16 at 09:00 Collagenase 1 applic 1 applic PRN PRN TOP SOILED OR DISLODGED DRESSING; Start 12/09/16 at 04:30 Potassium Chloride/Dextrose/ Sod Cl (D5-NS + KCl 20 Meq) 1,000 ml @ 80 mls/hr [id number] IV Last administered on 12/18/16 00:05; Admin Dose 80 MLS/HR; Start at 17:00 Diazepam (Valium) 5 mg Q12H PRN IV ANXIETY Last administered on 12/09/16 23:41 ; Admin Dose 5 MG; Start 12/09/16 at 23:00 Ondansetron HCl (Zofran Inj) 4 mg Q4H PRN IV NAUSEA AND/OR VOMITING Last administered on 12/16/16 09:37; Admin Dose 4 MG; Start 12/10/16 at 17:00 Metoprolol Tartrate (Lopressor) 5 mg Q6H PRN IV SBP >160 or HR > 120 Last administered on 12/10/16 23:14; Admin Dose 5 MG; Start 12/10/16 at 17:00 Hydralazine HCl (Apresoline) 20 mg Q6H PRN IV SBP > 160 Last administered on 20:04; Admin Dose 20 MG; Start 12/10/16 at 17:00 Tobramycin TOBRAMYCIN PER PHARMACY NOTE XX ; Start 12/12/16 at 14:30; Stop 12/19 at 14:29 Cefepime HCl 50 ml @ 100 mls/hr Q12 IVPB Last administered on 12/18/16 09:04 ; Admin Dose 100 MLS/HR; Start 12/12/16 at 21:00 Linezolid (Zyvox 600mg/D5W (Pmx)) 300 ml @ 300 mls/hr Q12 IVPB Last administered on 12/18/16 09:06; Admin Dose 300 MLS/HR; Start 12/12/16 at 21:00 Mupirocin (Bactroban) APPLY TO bilateral nares BID TOP Last administered on 09:06; Admin Dose 1 APPLIC; Start 12/12/16 at 21:00; Stop 12/22/16 at 20 :59 IV Flush 10 ml 10 ml PRN PRN IV IV PROTOCOL; Start 12/15/16 at 15:30 Fat Emulsion Intravenous 250 ml @ 20.833 mls/ hr Q24H IV Last administered on 12/17/16 23:07; Admin Dose 20.833 MLS/HR; Start 12/15/16 at 21:00 Total Parenteral Nutrition (Tpn) 1,000 ml @ 60 mls/hr [id number] IV Last administered on 12/18/16 16:37; Admin Dose 60 MLS/HR; Start 12/15/16 at 21:00 IV Flush 10 ml 10 ml PRN PRN IV IV PROTOCOL; Start 12/16/16 at 18:00 Tobramycin/Sodium Chloride (Tobramycin/NS) 107.5 ml @ 107.5 mls/ hr Q96H IVPB ; Start 12/18/16 at 18:00 Mineral Oil 30 ml 30 ml QID NGT Last administered on 12/18/16 16:04; Admin Dose 30 ML; Start 12/18/16 at 13:00 Potassium Phosphate/Sodium Chloride (K Phos (Meq)/NS) 254.5455 ml @ 63.636 m... ONCE ONCE IVPB Last administered on 12/18/16 13:57; Admin Dose 63.636 MLS/HR; Start 12/18/16 at 14:00; Stop 12/18/16 at 17:59 MARIBELL SUN MD December 18, 2016 17:39
[2016-12-18] MEDS ORDERED: TOBRAMYCIN 300 MG in SOD CHLORIDE 0.9% 100 ML IVPB SCH (18:00)
[2016-12-18] MEDS: FAT EMULSION 20% 250 ML IV SCH (19:55)
[2016-12-19] VITALS (27 sets, daily range): BP systolic 118–176; BP diastolic 75–98; PULSE 72–94; RESP 15–31
[2016-12-19] MEDS: IPRATROPIUM (HFA) 12.9 GM INHALER INH SCH ×4 (01:13→20:00)
[2016-12-19] MEDS: ALBUTEROL 18 GM INHALER INH SCH ×4 (01:13→20:00)
[2016-12-19] MEDS: D5-NS + KCL 20 MEQ 1,000 ML IV SCH ×2 (03:20→13:48)
[2016-12-19] MEDS: PANTOPRAZOLE 40 MG INJ IV SCH ×2 (05:20→17:39)
[2016-12-19 06:33] LABS: ADD SCAN DIFF NO
[2016-12-19 06:37] LABS: ABNORMAL IP MESSAGE 1; BASOPHILS % 0.3 % (0.0-2.0); EOSINOPHILS # 0.6 10^3/ul (0.0-0.5); EOSINOPHILS % 9.2 % (0.0-7.0); HEMATOCRIT 27.5 % (42.0-52.0); HEMOGLOBIN 9.2 g/dl (14.0-18.0); LYMPHOCYTES # 1.5 10^3/ul (0.8-2.9); LYMPHOCYTES % 25.3 % (15.0-51.0); MEAN CORPUSCULAR HEMOGLOBIN 29.5 pg (29.0-33.0); MEAN CORPUSCULAR HGB CONC 33.5 g/dl (32.0-37.0); MEAN CORPUSCULAR VOLUME 88.1 fl (82.0-101.0); MEAN PLATELET VOLUME 13.7 fl (7.4-10.4); MONOCYTE # 0.5 10^3/ul (0.3-0.9); MONOCYTES % 8.7 % (0.0-11.0); NEUTROPHIL # 3.4 10^3/ul (1.6-7.5); NUCLEATED RED BLOOD CELLS% 0.3 /100WBC (0.0-0.0); PLATELET COUNT 155 10^3/UL (140-415); RED BLOOD COUNT 3.12 10^6/ul (4.70-6.10); RED CELL DISTRIBUTION WIDTH 17.3 % (11.5-14.5)
[2016-12-19 06:56] LABS: CALCIUM 8.3 mg/dl (8.4-10.2); CREATININE 0.75 mg/dl (0.61-1.24); POTASSIUM 3.3 mmol/L (3.5-5.1)
[2016-12-19] MEDS: TPN 1,000 ML IV SCH ×2 (08:51→13:47)
[2016-12-19] MEDS: MINERAL OIL 30ML CUP NGT SCH ×4 (08:51→21:03)
[2016-12-19] MEDS: LINEZOLID 600 MG/D5W (PMX) 300 ML IVPB SCH ×2 (08:51→21:03)
[2016-12-19] MEDS: COLLAGENASE 30 GM TUBE TOP SCH (08:52)
[2016-12-19] MEDS: MUPIROCIN 2% 15 GM CR TOP SCH ×2 (08:52→20:22)
[2016-12-19] MEDS: CEFEPIME 2GM/50 ML (PMX) 50 ML IVPB SCH ×2 (09:51→20:21)
[2016-12-19] MEDS ORDERED: POTASSIUM CHLORIDE 50 ML IVPB ONE (11:00)
--- NOTE | 2016-12-19 11:36 | CONS ---
Date/Time of Note Date/Time of Note DATE: 12/19/16 TIME: 11:29 Consult Date/Type/Reason Admit Date/Time December 08, 2016 at 12:01 Initial Consult Date 12/10/16 Type of Consultation: Infectious Disease Reason for Consultation f/u on HCAP Ordering Provider: MARLA AKBAR MD Subjective Unble, tracheostomy in place Objective Vital Signs Date Time Temp Pulse Resp B/P Pulse Ox O2 Delivery O2 Flow Rate FiO2 12/19/16 09:30 88 16 99 35 12/19/16 09:00 118/75 12/19/16 07:46 98.1 12/17/16 04:00 Mechanical Ventilator Intake and Output 12/18/16 12/18/16 12/19/16 15:00 23:00 07:00 Intake Total 350 ml 1587.5 ml 2000 ml Output Total 2100 ml 1200 ml Balance 350 ml -512.5 ml 800 ml Exam Constitutional: frail, non-verbal, chronically debilitated, ventilator supported Head: normocephalic Mouth: dry, crusty lips Eyes: eyes closed Neck: tracheostomy in place Respiratory: diminished breath sounds Cardiovascular: regular rate and rhythm Gastrointestinal: soft, nondistended, +bowel sounds, NGT clamped; left sided colostomy intact- stoma pink, no stool soft Genitourinary - vincent cath present, clear yellow urine Extremities: contracted, bilateral foot drop, PICC RUE with no e/o infection. Skin: other (wounds- see nurse notes for details) Results/Medications Result Diagram: 12/19/16 0550 12/19/16 0550 Results 24 hrs Laboratory Tests Test 12/18/16 15:00 12/19/16 05:50 Phosphorus Level 1.9 L White Blood Count 6.0 Red Blood Count 3.12 L Hemoglobin 9.2 L Hematocrit 27.5 L Mean Corpuscular Volume 88.1 Mean Corpuscular Hemoglobin 29.5 Mean Corpuscular Hemoglobin Concent 33.5 Red Cell Distribution Width 17.3 H Platelet Count 155 Mean Platelet Volume 13.7 H Neutrophils % 56.0 Lymphocytes % 25.3 Monocytes % 8.7 Eosinophils % 9.2 H Basophils % 0.3 Nucleated Red Blood Cells % 0.3 H Neutrophils # 3.4 Lymphocytes # 1.5 Monocytes # 0.5 Eosinophils # 0.6 H Basophils # 0.0 Nucleated Red Blood Cells # 0.0 Sodium Level 134 L Potassium Level 3.3 L Chloride Level 101 Carbon Dioxide Level 27 Anion Gap 9 Blood Urea Nitrogen 16 Creatinine 0.75 Glucose Level 111 Calcium Level 8.3 L Magnesium Level 2.0 # Medications Current Medications Pantoprazole (Protonix Iv) 40 mg BID@06,18 IV Last administered on 12/19/16 05 :20; Admin Dose 40 MG; Start 12/09/16 at 06:00 Acetaminophen (Tylenol Supp) 650 mg Q4H PRN [place] PAIN OR TEMP ABOVE 38C; Start at 20:30 Morphine Sulfate (morphine) 2 mg Q4H PRN IV PAIN; Start 12/08/16 at 20:30 Collagenase (Santyl) 1 applic DAILY TOP Last administered on 12/19/16 08:52; Admin Dose 1 APPLIC; Start 12/09/16 at 09:00 Collagenase 1 applic 1 applic PRN PRN TOP SOILED OR DISLODGED DRESSING; Start 12/09/16 at 04:30 Potassium Chloride/Dextrose/ Sod Cl (D5-NS + KCl 20 Meq) 1,000 ml @ 80 mls/hr [id number] IV Last administered on 12/19/16 03:20; Admin Dose 80 MLS/HR; Start at 17:00 Diazepam (Valium) 5 mg Q12H PRN IV ANXIETY Last administered on 12/09/16 23:41 ; Admin Dose 5 MG; Start 12/09/16 at 23:00 Ondansetron HCl (Zofran Inj) 4 mg Q4H PRN IV NAUSEA AND/OR VOMITING Last administered on 12/16/16 09:37; Admin Dose 4 MG; Start 12/10/16 at 17:00 Metoprolol Tartrate (Lopressor) 5 mg Q6H PRN IV SBP >160 or HR > 120 Last administered on 12/10/16 23:14; Admin Dose 5 MG; Start 12/10/16 at 17:00 Hydralazine HCl (Apresoline) 20 mg Q6H PRN IV SBP > 160 Last administered on 20:04; Admin Dose 20 MG; Start 12/10/16 at 17:00 Tobramycin TOBRAMYCIN PER PHARMACY NOTE XX ; Start 12/12/16 at 14:30; Stop 12/19 at 14:29 Cefepime HCl 50 ml @ 100 mls/hr Q12 IVPB Last administered on 12/19/16 09:51 ; Admin Dose 100 MLS/HR; Start 12/12/16 at 21:00 Linezolid (Zyvox 600mg/D5W (Pmx)) 300 ml @ 300 mls/hr Q12 IVPB Last administered on 12/19/16 08:51; Admin Dose 300 MLS/HR; Start 12/12/16 at 21:00 Mupirocin (Bactroban) APPLY TO bilateral nares BID TOP Last administered on 08:52; Admin Dose 1 APPLIC; Start 12/12/16 at 21:00; Stop 12/22/16 at 20 :59 IV Flush 10 ml 10 ml PRN PRN IV IV PROTOCOL; Start 12/15/16 at 15:30 Fat Emulsion Intravenous 250 ml @ 20.833 mls/ hr Q24H IV Last administered on 12/18/16 19:55; Admin Dose 20.833 MLS/HR; Start 12/15/16 at 21:00 Total Parenteral Nutrition (Tpn) 1,000 ml @ 60 mls/hr [id number] IV Last administered on 12/19/16 08:51; Admin Dose 60 MLS/HR; Start 12/15/16 at 21:00 IV Flush 10 ml 10 ml PRN PRN IV IV PROTOCOL; Start 12/16/16 at 18:00 Tobramycin/Sodium Chloride (Tobramycin/NS) 107.5 ml @ 107.5 mls/ hr Q96H IVPB Last administered on 12/18/16 18:01; Admin Dose 107.5 MLS/HR; Start 12/18/16 at 18:00 Mineral Oil 30 ml 30 ml QID NGT Last administered on 12/19/16 08:51; Admin Dose 30 ML; Start 12/18/16 at 13:00 Potassium Chloride (KCl 20 MEQ/50 ML SW) 50 ml @ 25 mls/hr ONCE ONCE IVPB Last administered on 12/19/16 11:26; Admin Dose 25 MLS/HR; Start 12/19/16 at 11 :00; Stop 12/19/16 at 12:59 Assessment/Plan Chief Complaint/Hosp Course Assessment/plan Chief Complaint/Hosp Course - severe sepsis due to HCAP - HCAP/VAP due to kleb (KPC) and pseudo - UTI due to acineto and pseudo related to chronic indwelling Vincent - multiple pressure ulcer - recurrent infection of ulcer of RLE due to MRSA and pseudo. 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 the wound culture grew carbapenemase producing kleb, enterococci and pseudo - Dysphagia s/p EGD and new G tube placement 09/15/2016 - h/o infection of wound of RLE due to pseudomonas. 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/11/2016 - possible recurrent SBO per CT on 12/10/2016 - ileus - leukocytosis likely reactive from multiple emesis on 12/10/2016 (afebrile) - resolved - MRSA nasal colonization - Piccline placed today and planning to start TPN - Hypokalemia - replaced - Plan small bowel through with Gastrografin studies on Tuesday Recommendations: - continue antibiotics: tobramycin (12/12/2016-) for 7 days (for pseudomonas and acineto), cefepime (12/12/2016-) for KPC in sputum, and linezolid (12/12/2016-) for MRSA - mupirocin (12/12/2016-) for MRSA decolonization for 10 days - monitor GFR closely - wound care - contact isolation - Care and management d/w [facility] and Dr. Tang Problems: SUSHMA JUDD December 19, 2016 11:36
--- NOTE | 2016-12-19 16:04 | PN ---
Date/Time of Note Date/Time of Note DATE: 12/19/16 TIME: 16:01 Assessment/Plan Lines/Catheters IV Catheter Type (from Nrs): PICC Line Urinary Cath still in place: Yes Reason Cath still needed: urinary retention Assessment/Plan Assessment/Plan - Electrolyte imbalance - Hypomagnesium- resolved - Hypokalemia- resolved - Hypophosphatemia- will [facility] for TPN - Upper gastrointestinal bleed. Continue Protonix. Dr. Pryor is following in gastric gastroenterology consultation. - Possible SBO, NGT to LWS. Dr. Teran is following patient in general surgery consultation. Continue TPN and lipids. - Sepsis secondary to healthcare acquired pneumonia. - Healthcare facility-acquired pneumonia. Continue antibiotics. Dr. Tang is following in infection disease consultation. - UTI. 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 - Ventilator dependent respiratory failure with tracheostomy. Dr. Saenz is following in pulmonology consultation. - Chronic obstructive pulmonary disease. - Hypertension. - Dysphagia. -Chronic Chaudhari catheter. -Colostomy -Bedbound status. Further recommendations based on clinical course. Plan of care discussed with Dr. Meeks. Exam/Review of Systems Vital Signs Vitals Vital Signs Date Time Temp Pulse Resp B/P Pulse Ox O2 Delivery O2 Flow Rate FiO2 12/19/16 15:07 98.4 98 20 136/98 100 12/19/16 15:05 35 12/17/16 04:00 Mechanical Ventilator Intake and Output 12/18/16 12/18/16 12/19/16 15:00 23:00 07:00 Intake Total 350 ml 1587.5 ml 2000 ml Output Total 2100 ml 1200 ml Balance 350 ml -512.5 ml 800 ml Results Result Diagram: 12/19/16 0550 12/19/16 0550 Results 24 hrs Laboratory Tests Test 12/19/16 05:50 White Blood Count 6.0 Red Blood Count 3.12 L Hemoglobin 9.2 L Hematocrit 27.5 L Mean Corpuscular Volume 88.1 Mean Corpuscular Hemoglobin 29.5 Mean Corpuscular Hemoglobin Concent 33.5 Red Cell Distribution Width 17.3 H Platelet Count 155 Mean Platelet Volume 13.7 H Neutrophils % 56.0 Lymphocytes % 25.3 Monocytes % 8.7 Eosinophils % 9.2 H Basophils % 0.3 Nucleated Red Blood Cells % 0.3 H Neutrophils # 3.4 Lymphocytes # 1.5 Monocytes # 0.5 Eosinophils # 0.6 H Basophils # 0.0 Nucleated Red Blood Cells # 0.0 Sodium Level 134 L Potassium Level 3.3 L Chloride Level 101 Carbon Dioxide Level 27 Anion Gap 9 Blood Urea Nitrogen 16 Creatinine 0.75 Glucose Level 111 Calcium Level 8.3 L Magnesium Level 2.0 # Medications Medications Current Medications Pantoprazole (Protonix Iv) 40 mg BID@06,18 IV Last administered on 12/19/16 05 :20; Admin Dose 40 MG; Start 12/09/16 at 06:00 Acetaminophen (Tylenol Supp) 650 mg Q4H PRN [place] PAIN OR TEMP ABOVE 38C; Start at 20:30 Morphine Sulfate (morphine) 2 mg Q4H PRN IV PAIN; Start 12/08/16 at 20:30 Collagenase (Santyl) 1 applic DAILY TOP Last administered on 12/19/16 08:52; Admin Dose 1 APPLIC; Start 12/09/16 at 09:00 Collagenase 1 applic 1 applic PRN PRN TOP SOILED OR DISLODGED DRESSING; Start 12/09/16 at 04:30 Potassium Chloride/Dextrose/ Sod Cl (D5-NS + KCl 20 Meq) 1,000 ml @ 80 mls/hr [id number] IV Last administered on 12/19/16 03:20; Admin Dose 80 MLS/HR; Start at 17:00 Diazepam (Valium) 5 mg Q12H PRN IV ANXIETY Last administered on 12/09/16 23:41 ; Admin Dose 5 MG; Start 12/09/16 at 23:00 Ondansetron HCl (Zofran Inj) 4 mg Q4H PRN IV NAUSEA AND/OR VOMITING Last administered on 12/16/16 09:37; Admin Dose 4 MG; Start 12/10/16 at 17:00 Metoprolol Tartrate (Lopressor) 5 mg Q6H PRN IV SBP >160 or HR > 120 Last administered on 12/10/16 23:14; Admin Dose 5 MG; Start 12/10/16 at 17:00 Hydralazine HCl 20 mg 20 mg Q6H PRN IV SBP > 160 Last administered on 20:04; Admin Dose 20 MG; Start 12/10/16 at 17:00 Cefepime HCl 50 ml @ 100 mls/hr Q12 IVPB Last administered on 12/19/16 09:51 ; Admin Dose 100 MLS/HR; Start 12/12/16 at 21:00 Linezolid (Zyvox 600mg/D5W (Pmx)) 300 ml @ 300 mls/hr Q12 IVPB Last administered on 12/19/16 08:51; Admin Dose 300 MLS/HR; Start 12/12/16 at 21:00 Mupirocin (Bactroban) APPLY TO bilateral nares BID TOP Last administered on 08:52; Admin Dose 1 APPLIC; Start 12/12/16 at 21:00; Stop 12/22/16 at 20 :59 IV Flush 10 ml 10 ml PRN PRN IV IV PROTOCOL; Start 12/15/16 at 15:30 Fat Emulsion Intravenous 250 ml @ 20.833 mls/ hr Q24H IV Last administered on 12/18/16 19:55; Admin Dose 20.833 MLS/HR; Start 12/15/16 at 21:00 Total Parenteral Nutrition (Tpn) 1,000 ml @ 60 mls/hr [id number] IV Last administered on 12/19/16 13:47; Admin Dose 60 MLS/HR; Start 12/15/16 at 21:00 IV Flush 10 ml 10 ml PRN PRN IV IV PROTOCOL; Start 12/16/16 at 18:00 Tobramycin/Sodium Chloride (Tobramycin/NS) 107.5 ml @ 107.5 mls/ hr Q96H IVPB Last administered on 12/18/16 18:01; Admin Dose 107.5 MLS/HR; Start 12/18/16 at 18:00 Mineral Oil (Mineral Oil) 30 ml QID NGT Last administered on 12/19/16 13:23; Admin Dose 30 ML; Start 12/18/16 at 13:00 MARIO ROWE December 19, 2016 16:04
--- NOTE | 2016-12-19 16:46 | PN ---
DATE: SUBJECTIVE: No communication. The patient is on ventilator, but does not have any communication. D oes not open his eyes even to verbal stimuli or painful stimuli. OBJECTIVE GENERAL: Patient is on the ventilator with tracheostomy. VITAL SIGNS: Temperature 97.6, heart rate 99, respirations 18, blood pressure 156/77, saturation 99 % on FIO2 30% on the ventilator. LABORATORY DATA: Today, WBC 6000 with 56% neutrophils, hemoglobin 9.2, hematocrit 27.5, platelets 155. Sodium 134, potassium 3.3, BUN, creatinine normal. The patient was on TPN. PHYSICAL EXAMINATION: HEART: Regular. ABDOMEN: Actually is not distended, is soft. Bowel sounds 3+/4+. There is colostomy bag but there is no stool in it, no gas in it. The bag over the site of the removal of the G tube has about 30 mL of bilious fluid which was there also yesterday, so there is no new drainage. NG tube is in place, has drained 250 mL of almost semi brownish fluid since yesterday. It is not bilious. Chaudhari cathet er in place. ASSESSMENT: The patient with gastrointestinal bleeding and migration of the G-tube which was remove d in this hospital, patient with pneumonia and urinary tract infection. The patient is on the venti lator with encephalopathy and uncommunicative state of mind. Suspected of having a small-bowel obst ruction, appears that this is actually obturator obstruction due to intraluminal stool accumulation over the whole colon, than being any other reason. PLAN: We are going to get a small bowel follow through with Gastrografin tomorrow and see how the an atomy of the small bowel and large bowel looks like and maybe also facilitate defecation of the hard stool. I will continue following the patient along with other colleagues. Dictated By: VANIA PINEDA/MACK Conf#: [id number] DID#: [id number]
[2016-12-19] MEDS: FAT EMULSION 20% 250 ML IV SCH (20:21)
[2016-12-20] VITALS (24 sets, daily range): BP systolic 106–170; BP diastolic 65–88; PULSE 65–100; RESP 16–29
[2016-12-20] MEDS: hydrALAzine 20 MG INJ IV PRN (00:05)
[2016-12-20] MEDS: ALBUTEROL 18 GM INHALER INH SCH ×4 (02:06→20:04)
[2016-12-20] MEDS: IPRATROPIUM (HFA) 12.9 GM INHALER INH SCH ×4 (02:06→20:04)
[2016-12-20] MEDS: PANTOPRAZOLE 40 MG INJ IV SCH ×2 (05:37→17:38)
[2016-12-20 06:23] LABS: ADD SCAN DIFF NO
[2016-12-20 06:28] LABS: BASOPHILS % 0.5 % (0.0-2.0); EOSINOPHILS # 0.4 10^3/ul (0.0-0.5); EOSINOPHILS % 8.6 % (0.0-7.0); HEMATOCRIT 28.3 % (42.0-52.0); HEMOGLOBIN 9.4 g/dl (14.0-18.0); LYMPHOCYTES # 1.7 10^3/ul (0.8-2.9); LYMPHOCYTES % 37.3 % (15.0-51.0); MEAN CORPUSCULAR HEMOGLOBIN 29.4 pg (29.0-33.0); MEAN CORPUSCULAR HGB CONC 33.2 g/dl (32.0-37.0); MEAN CORPUSCULAR VOLUME 88.4 fl (82.0-101.0); MEAN PLATELET VOLUME 12.1 fl (7.4-10.4); MONOCYTE # 0.5 10^3/ul (0.3-0.9); MONOCYTES % 11.8 % (0.0-11.0); NEUTROPHIL # 1.8 10^3/ul (1.6-7.5); NEUTROPHILS % 41.6 % (39.0-77.0); PLATELET COUNT 137 10^3/UL (140-415); RED CELL DISTRIBUTION WIDTH 17.2 % (11.5-14.5); WHITE BLOOD COUNT 4.4 10^3/ul (4.8-10.8)
[2016-12-20 07:08] LABS: POTASSIUM 3.3 mmol/L (3.5-5.1)
[2016-12-20 07:11] LABS: CALCIUM 8.2 mg/dl (8.4-10.2); CREATININE 0.74 mg/dl (0.61-1.24)
[2016-12-20] MEDS: MINERAL OIL 30ML CUP NGT SCH ×4 (08:34→21:51)
[2016-12-20] MEDS: COLLAGENASE 30 GM TUBE TOP SCH (08:34)
[2016-12-20] MEDS: CEFEPIME 2GM/50 ML (PMX) 50 ML IVPB SCH ×2 (08:34→21:49)
[2016-12-20] MEDS: LINEZOLID 600 MG/D5W (PMX) 300 ML IVPB SCH ×2 (08:34→21:50)
[2016-12-20] MEDS: MUPIROCIN 2% 15 GM CR TOP SCH ×2 (08:34→21:51)
[2016-12-20] MEDS ORDERED: DIATR MEGLU/DIATRIZOATE SODIUM 120 ML BTL ONE ×2 (12:09)
--- NOTE | 2016-12-20 12:10 | CONS ---
DATE OF ADMISSION: 12/08/2016 DATE OF CONSULTATION: SUBJECTIVE: The patient is nonverbal, is unable to communicate and unable to verbalize. He is status post tracheostomy. OBJECTIVE: GENERAL: On examination he is pretty lethargic. He has a nasogastric tube in place, not draining mu ch of anything. VITAL SIGNS: Pulse is 76, blood pressure is 122/82. CARDIOVASCULAR EXAM: Normal heart sounds. RESPIRATORY: Normal breath sounds. ABDOMEN: Showed evidence of a colostomy bag at the site of the gastrostomy. It is draining brownis h liquid. LABORATORY WORKUP: The hemoglobin is 9.4, hematocrit 28.3, WBC 4400. Chemistry: Potassium 3.3, BU N is 18, creatinine is 0.74. CLINICAL IMPRESSION: The patient continues to have an ileus. He had vomiting when he had nasogastr ic tube feeding. At this time he is n.p.o. He is on TPN. PLAN: The patient is scheduled to have an upper GI with small bowel series. Will review the x-rays. Dictated By: KATELYN FERRARI/MACK Conf#: [id number] DID#: [id number] CC: MARLA AKBAR MD;*EndCC*
--- NOTE | 2016-12-20 16:29 | CONS ---
Date/Time of Note Date/Time of Note DATE: 12/20/16 TIME: 16:28 Assessment/Plan Assessment/Plan Chief Complaint/Hosp Course - severe sepsis due to HCAP - HCAP/VAP due to kleb (KPC) and pseudo - UTI due to acineto and pseudo related to chronic indwelling Chaudhari - multiple pressure ulcer - recurrent infection of ulcer of RLE due to MRSA and pseudo. 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 the wound culture grew carbapenemase producing kleb, enterococci and pseudo - Dysphagia s/p EGD and new G tube placement 09/15/2016 - h/o infection of wound of RLE due to pseudomonas. 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/11/2016 - possible recurrent SBO per CT on 12/10/2016 - ileus - leukocytosis likely reactive from multiple emesis on 12/10/2016 (afebrile) - resolved - MRSA nasal colonization - Piccline placed today and planning to start TPN - Hypokalemia - replaced - Plan small bowel through with Gastrografin studies on Tuesday Recommendations: - continue antibiotics: tobramycin (12/12/2016-) for 7 days (for pseudomonas and acineto), cefepime (12/12/2016-) for KPC in sputum, and linezolid (12/12/2016-) for MRSA - mupirocin (12/12/2016-) for MRSA decolonization for 10 days - monitor GFR closely - wound care - contact isolation Problems: Consultation Date/Type/Reason Admit Date/Time December 08, 2016 at 12:01 Type of Consultation: Infectious Disease Referring Provider: MARLA AKBAR MD Exam/Review of Systems Vital Signs Vitals Vital Signs Date Time Temp Pulse Resp B/P Pulse Ox O2 Delivery O2 Flow Rate FiO2 12/20/16 15:41 97 16 97 30 12/20/16 15:09 98.2 106/66 12/17/16 04:00 Mechanical Ventilator Intake and Output 12/19/16 12/19/16 12/20/16 15:00 23:00 07:00 Intake Total 400 ml 350 ml 900 ml Output Total 750 ml 2000 ml Balance 400 ml -400 ml -1100 ml Results Result Diagram: 12/20/16 0545 12/20/16 0545 Results 24 hrs Laboratory Tests Test 12/20/16 05:45 White Blood Count 4.4 #L Red Blood Count 3.20 L Hemoglobin 9.4 L Hematocrit 28.3 L Mean Corpuscular Volume 88.4 Mean Corpuscular Hemoglobin 29.4 Mean Corpuscular Hemoglobin Concent 33.2 Red Cell Distribution Width 17.2 H Platelet Count 137 L Mean Platelet Volume 12.1 H Neutrophils % 41.6 Lymphocytes % 37.3 Monocytes % 11.8 H Eosinophils % 8.6 H Basophils % 0.5 Nucleated Red Blood Cells % 0.0 Neutrophils # 1.8 Lymphocytes # 1.7 Monocytes # 0.5 Eosinophils # 0.4 Basophils # 0.0 Nucleated Red Blood Cells # 0.0 Sodium Level 135 Potassium Level 3.3 L Chloride Level 100 Carbon Dioxide Level 28 Anion Gap 10 Blood Urea Nitrogen 18 Creatinine 0.74 Glucose Level 101 Calcium Level 8.2 L Medications Medications Current Medications Pantoprazole (Protonix Iv) 40 mg BID@,18 IV Last administered on 12/20/16 05 :37; Admin Dose 40 MG; Start 12/09/16 at 06:00 Acetaminophen (Tylenol Supp) 650 mg Q4H PRN [place] PAIN OR TEMP ABOVE 38C; Start at 20:30 Morphine Sulfate (morphine) 2 mg Q4H PRN IV PAIN; Start 12/08/16 at 20:30 Collagenase (Santyl) 1 applic DAILY TOP Last administered on 12/20/16 08:34; Admin Dose 1 APPLIC; Start 12/09/16 at 09:00 Collagenase (Santyl) 1 applic PRN PRN TOP SOILED OR DISLODGED DRESSING; Start 12/09/16 at 04:30 Diazepam (Valium) 5 mg Q12H PRN IV ANXIETY Last administered on 12/09/16 23:41 ; Admin Dose 5 MG; Start 12/09/16 at 23:00 Ondansetron HCl (Zofran Inj) 4 mg Q4H PRN IV NAUSEA AND/OR VOMITING Last administered on 12/16/16 09:37; Admin Dose 4 MG; Start 12/10/16 at 17:00 Metoprolol Tartrate (Lopressor) 5 mg Q6H PRN IV SBP >160 or HR > 120 Last administered on 12/10/16 23:14; Admin Dose 5 MG; Start 12/10/16 at 17:00 Hydralazine HCl 20 mg 20 mg Q6H PRN IV SBP > 160 Last administered on 00:05; Admin Dose 20 MG; Start 12/10/16 at 17:00 Cefepime HCl 50 ml @ 100 mls/hr Q12 IVPB Last administered on 12/20/16 08:34 ; Admin Dose 100 MLS/HR; Start 12/12/16 at 21:00 Linezolid (Zyvox 600mg/D5W (Pmx)) 300 ml @ 300 mls/hr Q12 IVPB Last administered on 12/20/16 08:34; Admin Dose 300 MLS/HR; Start 12/12/16 at 21:00 Mupirocin (Bactroban) APPLY TO bilateral nares BID TOP Last administered on 08:34; Admin Dose 1 APPLIC; Start 12/12/16 at 21:00; Stop 12/22/16 at 20 :59 IV Flush 10 ml 10 ml PRN PRN IV IV PROTOCOL; Start 12/15/16 at 15:30 Fat Emulsion Intravenous 250 ml @ 20.833 mls/ hr Q24H IV Last administered on 12/19/16 20:21; Admin Dose 20.833 MLS/HR; Start 12/15/16 at 21:00 Total Parenteral Nutrition (Tpn) 1,000 ml @ 60 mls/hr [id number] IV Last administered on 12/19/16 13:47; Admin Dose 60 MLS/HR; Start 12/15/16 at 21:00 IV Flush (NS 10 ml) 10 ml PRN PRN IV IV PROTOCOL; Start 12/16/16 at 18:00 Mineral Oil (Mineral Oil) 30 ml QID NGT Last administered on 12/20/16 08:34; Admin Dose 30 ML; Start 12/18/16 at 13:00 MARIBELL SUN MD December 20, 2016 16:29
[2016-12-20] MEDS: TPN 1,000 ML IV SCH (17:38)
--- NOTE | 2016-12-20 19:07 | PN ---
Date/Time of Note Date/Time of Note DATE: 12/20/16 TIME: 19:05 Assessment/Plan VTE Prophylaxis VTE Prophylaxis Intervention: SCD's Lines/Catheters IV Catheter Type (from [facility]): Saline Lock Urinary Cath still in place: Yes Reason Cath still needed: urinary retention Assessment/Plan Chief Complaint/Hosp Course - Possible SBO, NGT to LWS. Dr. Teran is following patient in general surgery consultation. Continue TPN and lipids. Pending upper GI series. - Upper gastrointestinal bleed. Continue Protonix. Dr. Pryor is following in gastric gastroenterology consultation. - Sepsis secondary to healthcare acquired pneumonia. - Healthcare facility-acquired pneumonia. Continue antibiotics. Dr. Tang is following in infection disease consultation. - UTI. Continue antibiotics per ID. 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 - Ventilator dependent respiratory failure with tracheostomy. Dr. Saenz is following in pulmonology consultation. - Chronic obstructive pulmonary disease. - Hypertension. - Dysphagia. -Chronic Chaudhari catheter. -Colostomy -Bedbound status. Further recommendations based on clinical course. Plan of care discussed with Dr. Meeks. Problems: Subjective 24 Hr Interval Summary Free Text/Dictation Patient remains afebrile, continued on TPN and lipids, pending upper GI series. Exam/Review of Systems Vital Signs Vitals Vital Signs Date Time Temp Pulse Resp B/P Pulse Ox O2 Delivery O2 Flow Rate FiO2 12/20/16 17:13 96 25 98 30 12/20/16 15:09 98.2 106/66 12/17/16 04:00 Mechanical Ventilator Intake and Output 12/19/16 12/19/16 12/20/16 15:00 23:00 07:00 Intake Total 400 ml 350 ml 900 ml Output Total 750 ml 2000 ml Balance 400 ml -400 ml -1100 ml Exam Constitutional: frail, non-verbal Psych: confusion Head: normocephalic Eyes: nl conjunctiva ENMT: nl external ears & nose Neck: other (Tracheostomy), supple Respiratory: diminished breath sounds Cardiovascular: other (Atrial arrhythmia) Gastrointestinal: non-tender, other (G-tube, colostomy), soft Genitourinary - Male: other (Chaudhari) Musculoskeletal: other (Contracted) Extremities: normal pulses Neurological: other (Chronic encephalopathy) Skin: other (Wounds) Results Result Diagram: 12/20/16 0545 12/20/16 0545 Results 24 hrs Laboratory Tests Test 12/20/16 05:45 White Blood Count 4.4 #L Red Blood Count 3.20 L Hemoglobin 9.4 L Hematocrit 28.3 L Mean Corpuscular Volume 88.4 Mean Corpuscular Hemoglobin 29.4 Mean Corpuscular Hemoglobin Concent 33.2 Red Cell Distribution Width 17.2 H Platelet Count 137 L Mean Platelet Volume 12.1 H Neutrophils % 41.6 Lymphocytes % 37.3 Monocytes % 11.8 H Eosinophils % 8.6 H Basophils % 0.5 Nucleated Red Blood Cells % 0.0 Neutrophils # 1.8 Lymphocytes # 1.7 Monocytes # 0.5 Eosinophils # 0.4 Basophils # 0.0 Nucleated Red Blood Cells # 0.0 Sodium Level 135 Potassium Level 3.3 L Chloride Level 100 Carbon Dioxide Level 28 Anion Gap 10 Blood Urea Nitrogen 18 Creatinine 0.74 Glucose Level 101 Calcium Level 8.2 L Medications Medications Current Medications Pantoprazole (Protonix Iv) 40 mg BID@ IV Last administered on 12/20/16 17 :38; Admin Dose 40 MG; Start 12/09/16 at 06:00 Acetaminophen (Tylenol Supp) 650 mg Q4H PRN [place] PAIN OR TEMP ABOVE 38C; Start at 20:30 Morphine Sulfate (morphine) 2 mg Q4H PRN IV PAIN; Start 12/08/16 at 20:30 Collagenase (Santyl) 1 applic DAILY TOP Last administered on 12/20/16 08:34; Admin Dose 1 APPLIC; Start 12/09/16 at 09:00 Collagenase (Santyl) 1 applic PRN PRN TOP SOILED OR DISLODGED DRESSING; Start 12/09/16 at 04:30 Diazepam (Valium) 5 mg Q12H PRN IV ANXIETY Last administered on 12/09/16 23:41 ; Admin Dose 5 MG; Start 12/09/16 at 23:00 Ondansetron HCl (Zofran Inj) 4 mg Q4H PRN IV NAUSEA AND/OR VOMITING Last administered on 12/16/16 09:37; Admin Dose 4 MG; Start 12/10/16 at 17:00 Metoprolol Tartrate (Lopressor) 5 mg Q6H PRN IV SBP >160 or HR > 120 Last administered on 12/10/16 23:14; Admin Dose 5 MG; Start 12/10/16 at 17:00 Hydralazine HCl 20 mg 20 mg Q6H PRN IV SBP > 160 Last administered on 00:05; Admin Dose 20 MG; Start 12/10/16 at 17:00 Cefepime HCl 50 ml @ 100 mls/hr Q12 IVPB Last administered on 12/20/16 08:34 ; Admin Dose 100 MLS/HR; Start 12/12/16 at 21:00 Linezolid (Zyvox 600mg/D5W (Pmx)) 300 ml @ 300 mls/hr Q12 IVPB Last administered on 12/20/16 08:34; Admin Dose 300 MLS/HR; Start 12/12/16 at 21:00 Mupirocin (Bactroban) APPLY TO bilateral nares BID TOP Last administered on 08:34; Admin Dose 1 APPLIC; Start 12/12/16 at 21:00; Stop 12/22/16 at 20 :59 IV Flush 10 ml 10 ml PRN PRN IV IV PROTOCOL; Start 12/15/16 at 15:30 Fat Emulsion Intravenous 250 ml @ 20.833 mls/ hr Q24H IV Last administered on 12/19/16 20:21; Admin Dose 20.833 MLS/HR; Start 12/15/16 at 21:00 Total Parenteral Nutrition (Tpn) 1,000 ml @ 60 mls/hr [id number] IV Last administered on 12/20/16 17:38; Admin Dose 60 MLS/HR; Start 12/15/16 at 21:00 IV Flush (NS 10 ml) 10 ml PRN PRN IV IV PROTOCOL; Start 12/16/16 at 18:00 Mineral Oil (Mineral Oil) 30 ml QID NGT Last administered on 12/20/16 08:34; Admin Dose 30 ML; Start 12/18/16 at 13:00 AMY MORAN December 20, 2016 19:07
[2016-12-20] MEDS: FAT EMULSION 20% 250 ML IV SCH (21:50)
[2016-12-21] VITALS (24 sets, daily range): BP systolic 122–167; BP diastolic 61–87; PULSE 54–69; RESP 16–48
[2016-12-21] MEDS: IPRATROPIUM (HFA) 12.9 GM INHALER INH SCH ×4 (01:18→19:23)
[2016-12-21] MEDS: ALBUTEROL 18 GM INHALER INH SCH ×4 (01:18→19:23)
[2016-12-21] MEDS: PANTOPRAZOLE 40 MG INJ IV SCH ×2 (04:58→17:09)
[2016-12-21] MEDS: MINERAL OIL 30ML CUP NGT SCH ×4 (08:46→21:34)
[2016-12-21] MEDS: MUPIROCIN 2% 15 GM CR TOP SCH ×2 (08:47→21:35)
[2016-12-21] MEDS: LINEZOLID 600 MG/D5W (PMX) 300 ML IVPB SCH ×2 (08:47→21:34)
[2016-12-21] MEDS: COLLAGENASE 30 GM TUBE TOP SCH (08:48)
[2016-12-21 09:19] LABS: CALCIUM 8.3 mg/dl (8.4-10.2); CREATININE 0.78 mg/dl (0.61-1.24); PHOSPHORUS 4.6 mg/dl (2.5-4.9); POTASSIUM 3.5 mmol/L (3.5-5.1)
[2016-12-21] MEDS: CEFEPIME 2GM/50 ML (PMX) 50 ML IVPB SCH (10:02)
[2016-12-21] MEDS: TPN 1,000 ML IV SCH (10:02)
--- NOTE | 2016-12-21 13:32 | RADRPT ---
PROCEDURE: Small bowel follow-through. CLINICAL INDICATION: Abdomen pain. TECHNIQUE: Water-soluble contrast was administered via the nasogastric tube and several spot and o verhead radiographs of the abdomen were obtained. COMPARISON: Abdomen radiograph dated 12/16/2016. FINDINGS: On the preliminary radiograph, the nasogastric tube tip is in the stomach. There is mild scoliosis of the lumbar spine convex right. The bowel gas pattern is normal. There is no small bowel displacement or mass. The small bowel folds are normal. There is no evidence of obstruction. Transit time is normal with contrast in the colon at 4 hours. There is a left lower quadrant colostomy.. IMPRESSION: 1. No evidence of obstruction. Contrast in the colon at 4 hours. 2. Left lower quadrant colostomy. RPTAT: QQ .Carter Hogan MD, MD Date Time Electronically viewed and signed by .Carter Hogan MD, MD on 12/21/2016 13:32 .R/
--- NOTE | 2016-12-21 14:13 | PN ---
Date/Time of Note Date/Time of Note DATE: 12/21/16 TIME: 14:10 Assessment/Plan VTE Prophylaxis VTE Prophylaxis Intervention: SCD's Lines/Catheters IV Catheter Type (from Nrs): Saline Lock Urinary Cath still in place: Yes Reason Cath still needed: urinary retention Assessment/Plan Chief Complaint/Hosp Course Pt had small BM via colostomy, upper GI reviewed, NGT clamped, afebrile, continued on TPN. - Possible SBO. Dr. Teran is following patient in general surgery consultation. Continue TPN and lipids. No obstruction per upper GI series. - Upper gastrointestinal bleed. Continue Protonix. Dr. Pryor is following in gastric gastroenterology consultation. - Sepsis secondary to healthcare acquired pneumonia. - Healthcare facility-acquired pneumonia. Continue antibiotics. Dr. Tang is following in infection disease consultation. - UTI. Continue antibiotics per ID. 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 - Ventilator dependent respiratory failure with tracheostomy. Dr. Saenz is following in pulmonology consultation. - Chronic obstructive pulmonary disease. - Hypertension. - Dysphagia. -Chronic Chaudhari catheter. -Colostomy -Bedbound status. Further recommendations based on clinical course. Plan of care discussed with Dr. Meeks. Problems: Exam/Review of Systems Vital Signs Vitals Vital Signs Date Time Temp Pulse Resp B/P Pulse Ox O2 Delivery O2 Flow Rate FiO2 12/21/16 12:51 54 12/21/16 11:12 22 98 30 12/21/16 07:13 98.3 136/87 Intake and Output 12/20/16 12/20/16 12/21/16 15:00 23:00 07:00 Intake Total 250 ml 690 ml 50 ml Output Total 1550 ml Balance 250 ml -860 ml 50 ml Exam Constitutional: frail, non-verbal Psych: confusion Head: normocephalic Eyes: nl conjunctiva ENMT: nl external ears & nose Neck: other (Tracheostomy), supple Respiratory: diminished breath sounds Cardiovascular: other (Atrial arrhythmia) Gastrointestinal: non-tender, other (G-tube, colostomy), soft Genitourinary - Male: other (Chaudhari) Musculoskeletal: other (Contracted) Extremities: normal pulses Neurological: other (Chronic encephalopathy) Skin: other (Wounds) Results Result Diagram: 12/20/16 0545 12/21/16 0728 Results 24 hrs Laboratory Tests Test 12/21/16 07:28 Sodium Level 136 Potassium Level 3.5 Chloride Level 104 Carbon Dioxide Level 28 Anion Gap 8 Blood Urea Nitrogen 19 Creatinine 0.78 Glucose Level 109 Calcium Level 8.3 L Phosphorus Level 4.6 Magnesium Level 2.0 Medications Medications Current Medications Pantoprazole (Protonix Iv) 40 mg BID@06,18 IV Last administered on 12/21/16 04 :58; Admin Dose 40 MG; Start 12/09/16 at 06:00 Acetaminophen (Tylenol Supp) 650 mg Q4H PRN [place] PAIN OR TEMP ABOVE 38C; Start at 20:30 Morphine Sulfate (morphine) 2 mg Q4H PRN IV PAIN; Start 12/08/16 at 20:30 Collagenase (Santyl) 1 applic DAILY TOP Last administered on 12/21/16 08:48; Admin Dose 1 APPLIC; Start 12/09/16 at 09:00 Collagenase (Santyl) 1 applic PRN PRN TOP SOILED OR DISLODGED DRESSING; Start 12/09/16 at 04:30 Diazepam (Valium) 5 mg Q12H PRN IV ANXIETY Last administered on 12/09/16 23:41 ; Admin Dose 5 MG; Start 12/09/16 at 23:00 Ondansetron HCl (Zofran Inj) 4 mg Q4H PRN IV NAUSEA AND/OR VOMITING Last administered on 12/16/16 09:37; Admin Dose 4 MG; Start 12/10/16 at 17:00 Metoprolol Tartrate (Lopressor) 5 mg Q6H PRN IV SBP >160 or HR > 120 Last administered on 12/10/16 23:14; Admin Dose 5 MG; Start 12/10/16 at 17:00 Hydralazine HCl 20 mg 20 mg Q6H PRN IV SBP > 160 Last administered on 00:05; Admin Dose 20 MG; Start 12/10/16 at 17:00 Cefepime HCl 50 ml @ 100 mls/hr Q12 IVPB Last administered on 12/21/16 10:02 ; Admin Dose 100 MLS/HR; Start 12/12/16 at 21:00 Linezolid (Zyvox 600mg/D5W (Pmx)) 300 ml @ 300 mls/hr Q12 IVPB Last administered on 12/21/16 08:47; Admin Dose 300 MLS/HR; Start 12/12/16 at 21:00 Mupirocin (Bactroban) APPLY TO bilateral nares BID TOP Last administered on 08:47; Admin Dose 1 APPLIC; Start 12/12/16 at 21:00; Stop 12/22/16 at 20 :59 IV Flush 10 ml 10 ml PRN PRN IV IV PROTOCOL; Start 12/15/16 at 15:30 Fat Emulsion Intravenous 250 ml @ 20.833 mls/ hr Q24H IV Last administered on 12/20/16 21:50; Admin Dose 20.833 MLS/HR; Start 12/15/16 at 21:00 Total Parenteral Nutrition (Tpn) 1,000 ml @ 60 mls/hr [id number] IV Last administered on 12/21/16 10:02; Admin Dose 60 MLS/HR; Start 12/15/16 at 21:00 IV Flush (NS 10 ml) 10 ml PRN PRN IV IV PROTOCOL; Start 12/16/16 at 18:00 Mineral Oil (Mineral Oil) 30 ml QID NGT Last administered on 12/21/16 12:01; Admin Dose 30 ML; Start 12/18/16 at 13:00 AMY MORAN December 21, 2016 14:13
--- NOTE | 2016-12-21 15:14 | CONS ---
Date/Time of Note Date/Time of Note DATE: 12/21/16 TIME: 15:02 Assessment/Plan Assessment/Plan Chief Complaint/Hosp Course - severe sepsis due to HCAP - HCAP/VAP due to kleb (KPC) and pseudo - UTI due to acineto and pseudo related to chronic indwelling Vincent - multiple pressure ulcer - recurrent infection of ulcer of RLE due to MRSA and pseudo. 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 the wound culture grew carbapenemase producing kleb, enterococci and pseudo - Dysphagia s/p EGD and new G tube placement 09/15/2016 - h/o infection of wound of RLE due to pseudomonas. 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/11/2016 - possible recurrent SBO per CT on 12/10/2016 - ileus - recurrent leukocytosis likely reactive from multiple emesis on 12/10/2016 & (remains afebrile) - MRSA nasal colonization - Note: S/p tobramycin (12/12/2016-12/18/2016) for pseudomonas and acinetobacter Recommendations: - Discontinue Cefepime (12/12/2016-) for KPC in sputum - Continue linezolid (12/12/2016-) for MRSA - mupirocin (12/12/2016-) for MRSA decolonization for 10 days - monitor GFR closely - wound care - contact isolation Management d/w [facility] and Dr. Tang Problems: Consultation Date/Type/Reason Admit Date/Time December 08, 2016 at 12:01 Initial Consult Date 12/09/16 Type of Consultation: Infectious Disease Referring Provider: MARLA AKBAR MD 24 HR Interval Summary Free Text/Dictation SBFT done yesterday with no e/o obstruction per d/w nursing staff. Unable to perform ROS d/t chronic encephalopathy. Subjective hx not possible: pt non-verbal Exam/Review of Systems Vital Signs Vitals Vital Signs Date Time Temp Pulse Resp B/P Pulse Ox O2 Delivery O2 Flow Rate FiO2 12/21/16 12:51 54 12/21/16 11:12 22 98 30 12/21/16 07:13 98.3 136/87 Intake and Output 12/20/16 12/20/16 12/21/16 15:00 23:00 07:00 Intake Total 250 ml 690 ml 50 ml Output Total 1550 ml Balance 250 ml -860 ml 50 ml Exam Constitutional: frail, non-verbal, other (chronically debilitated) Head: normocephalic Eyes: nl sclera Neck: other (trach with vent) Respiratory: diminished breath sounds Cardiovascular: regular rate and rhythm Gastrointestinal: bowel sounds (present), other (NGT; ostomy bag over old GT site with greenish output, LLQ colostomy intact- small amount brown stool), soft , mildly distended Genitourinary - Male: other (vincent cath present) Extremities: other (contracted). Bilateral foot drop noted. RUE PICC with no e/ o infection. Skin: other (wounds- see nurse notes for details) Results Result Diagram: 12/20/16 0545 12/21/16 0728 Results 24 hrs Laboratory Tests Test 12/21/16 07:28 Sodium Level 136 Potassium Level 3.5 Chloride Level 104 Carbon Dioxide Level 28 Anion Gap 8 Blood Urea Nitrogen 19 Creatinine 0.78 Glucose Level 109 Calcium Level 8.3 L Phosphorus Level 4.6 Magnesium Level 2.0 Medications Medications Current Medications Pantoprazole (Protonix Iv) 40 mg BID@,18 IV Last administered on 12/21/16t 04 :58; Admin Dose 40 MG; Start 12/09/16 at 06:00 Acetaminophen (Tylenol Supp) [address] PAIN OR TEMP ABOVE 38C; Start at 20:30 Morphine Sulfate (morphine) 2 mg Q4H PRN IV PAIN; Start 12/08/16 at 20:30 Collagenase (Santyl) 1 applic DAILY TOP Last administered on 12/21/16 08:48; Admin Dose 1 APPLIC; Start 12/09/16 at 09:00 Collagenase (Santyl) 1 applic PRN PRN TOP SOILED OR DISLODGED DRESSING; Start 12/09/16 at 04:30 Diazepam (Valium) 5 mg Q12H PRN IV ANXIETY Last administered on 12/09/16 23:41 ; Admin Dose 5 MG; Start 12/09/16 at 23:00 Ondansetron HCl (Zofran Inj) 4 mg Q4H PRN IV NAUSEA AND/OR VOMITING Last administered on 12/16/16 09:37; Admin Dose 4 MG; Start 12/10/16 at 17:00 Metoprolol Tartrate (Lopressor) 5 mg Q6H PRN IV SBP >160 or HR > 120 Last administered on 12/10/16 23:14; Admin Dose 5 MG; Start 12/10/16 at 17:00 Hydralazine HCl 20 mg 20 mg Q6H PRN IV SBP > 160 Last administered on 00:05; Admin Dose 20 MG; Start 12/10/16 at 17:00 Cefepime HCl 50 ml @ 100 mls/hr Q12 IVPB Last administered on 12/21/16 10:02 ; Admin Dose 100 MLS/HR; Start 12/12/16 at 21:00 Linezolid (Zyvox 600mg/D5W (Pmx)) 300 ml @ 300 mls/hr Q12 IVPB Last administered on 12/21/16 08:47; Admin Dose 300 MLS/HR; Start 12/12/16 at 21:00 Mupirocin (Bactroban) APPLY TO bilateral nares BID TOP Last administered on 08:47; Admin Dose 1 APPLIC; Start 12/12/16 at 21:00; Stop 12/22/16 at 20 :59 IV Flush 10 ml 10 ml PRN PRN IV IV PROTOCOL; Start 12/15/16 at 15:30 Fat Emulsion Intravenous 250 ml @ 20.833 mls/ hr Q24H IV Last administered on 12/20/16 21:50; Admin Dose 20.833 MLS/HR; Start 12/15/16 at 21:00 Total Parenteral Nutrition (Tpn) 1,000 ml @ 60 mls/hr [id number] IV Last administered on 12/21/16 10:02; Admin Dose 60 MLS/HR; Start 12/15/16 at 21:00 IV Flush (NS 10 ml) 10 ml PRN PRN IV IV PROTOCOL; Start 12/16/16 at 18:00 Mineral Oil (Mineral Oil) 30 ml QID NGT Last administered on 12/21/16 12:01; Admin Dose 30 ML; Start 12/18/16 at 13:00 KO LOVING NP December 21, 2016 15:13
[2016-12-21] MEDS: hydrALAzine 20 MG INJ IV PRN (17:11)
[2016-12-21] MEDS ORDERED: PEG/ELECTROLYTES 4L BTL NGT SCH (20:00)
[2016-12-21] MEDS: FAT EMULSION 20% 250 ML IV SCH (21:35)
--- NOTE | 2016-12-21 21:46 | PN ---
DATE: 12/21/2016 SUBJECTIVE: No verbal communication. The patient on ventilator. No response to verbal stimuli. M inimal withdrawal by deep painful stimuli. Does not open his eyes. OBJECTIVE: VITAL SIGNS: Temperature 97.9, 85, 20, blood pressure 164/81, saturation 98% on FIO2 of 30% on the ventilator. LABORATORY DATA: Today sodium, potassium, BUN, and creatinine within normal limits. CBC was not do ne. The report of the small bowel x-ray with Gastrografin is available today. Impression: No evid ence of obstruction. Contrast in the colon at 4 hours. Left lower quadrant colostomy. As a matter of fact, as I mentioned before, on the x-rays of the CT scan of the abdomen, one could see that the re were pieces of hardened stool occupying most of the transverse colon toward the colostomy. The aure mariano reports that last night the patient had about 4 pieces of very hard stool pass through the colo stomy along with some liquid stool. Today, there is only 50 mL of yellowish liquid stool in the bag . ABDOMEN: Not distended. Actually soft, bowel sounds present. ASSESSMENT AND PLAN: In regard to the gastrointestinal problem and partial obstruction of the small bowel, the patient is not obstructed. The reason of vomiting and distention, most probably is that the patient has hard stool in the whole length of the transverse colon and some part of the ascendi ng colon and this harder stool is difficult to pass through the colostomy. As I did a digital exami [facility] and the fascial opening is not very wide, so I have been giving the patient mineral oil throu gh NG tube for the past few days, hoping that the stool has become softer and lubricated and can pas s through the colostomy. I am going to start the patient now today on GoLYTELY 50 mL through NG tub e every hour up to 1.5 liter per 24 hours so we can see if that one is going to get rid of most of t he hardened stool, which is in the lumen of the ascending colon and transverse colon. From other po ints of view, the medical management is being followed by other colleagues. Dictated By: VANIA MAE MD PS/MACK Conf#: [id number] DID#: [id number] CC: MARLA AKBAR MD;*EndCC*
[2016-12-22] VITALS (26 sets, daily range): BP systolic 133–176; BP diastolic 65–96; PULSE 55–107; RESP 16–23
[2016-12-22] MEDS: IPRATROPIUM (HFA) 12.9 GM INHALER INH SCH ×4 (01:03→20:17)
[2016-12-22] MEDS: ALBUTEROL 18 GM INHALER INH SCH ×4 (01:03→20:17)
[2016-12-22] MEDS: TPN 1,000 ML IV SCH ×2 (03:42→21:02)
[2016-12-22] MEDS: PANTOPRAZOLE 40 MG INJ IV SCH ×2 (03:42→17:10)
[2016-12-22 07:25] LABS: ADD SCAN DIFF NO
[2016-12-22] MEDS: MINERAL OIL 30ML CUP NGT SCH ×4 (08:54→20:55)
[2016-12-22] MEDS: LINEZOLID 600 MG/D5W (PMX) 300 ML IVPB SCH (08:55)
[2016-12-22] MEDS: MUPIROCIN 2% 15 GM CR TOP SCH (08:55)
[2016-12-22] MEDS: COLLAGENASE 30 GM TUBE TOP SCH (08:56)
[2016-12-22 09:41] LABS: ABNORMAL IP MESSAGE 1; BASOPHILS % 0.9 % (0.0-2.0); EOSINOPHILS # 0.3 10^3/ul (0.0-0.5); EOSINOPHILS % 9.1 % (0.0-7.0); HEMATOCRIT 29.3 % (42.0-52.0); HEMOGLOBIN 9.9 g/dl (14.0-18.0); LYMPHOCYTES # 0.8 10^3/ul (0.8-2.9); LYMPHOCYTES % 24.5 % (15.0-51.0); MEAN CORPUSCULAR HEMOGLOBIN 31.6 pg (29.0-33.0); MEAN CORPUSCULAR HGB CONC 33.8 g/dl (32.0-37.0); MEAN CORPUSCULAR VOLUME 93.6 fl (82.0-101.0); MONOCYTE # 0.4 10^3/ul (0.3-0.9); MONOCYTES % 10.3 % (0.0-11.0); NEUTROPHIL # 1.1 10^3/ul (1.6-7.5); NEUTROPHILS % 32.5 % (39.0-77.0); NUCLEATED RED BLOOD CELLS # 0.1 10^3/ul (0.0-0.0); NUCLEATED RED BLOOD CELLS% 2.4 /100WBC (0.0-0.0); RED BLOOD COUNT 3.13 10^6/ul (4.70-6.10); RED CELL DISTRIBUTION WIDTH 17.7 % (11.5-14.5)
[2016-12-22 09:46] LABS: WHITE BLOOD COUNT 3.4 10^3/ul (4.8-10.8)
[2016-12-22 09:47] LABS: PLATELET COUNT 117 10^3/UL (140-415)
[2016-12-22 11:22] LABS: CALCIUM 8.7 mg/dl (8.4-10.2); CREATININE 0.76 mg/dl (0.61-1.24); MAGNESIUM 1.9 mg/dl (1.7-2.5); PHOSPHORUS 4.1 mg/dl (2.5-4.9); POTASSIUM 3.8 mmol/L (3.5-5.1)
--- NOTE | 2016-12-22 12:31 | PN ---
DATE: 12/20/2016 This is a substitute dictation from what I dictated for the patient progress note on 12/20/2016. The medical record has had a problem with retrieving the dictation and it has not been the form that I have used, but it has not been good, so they could not complete the dictation, so they asked me to re-dictate it. This is not going to be exactly what I dictated that day, but basically on Tuesday, the patient was again on the ventilator. No complications. Vital signs were stable and the patient was about to receive Gastrografin through NG tube and later on to have the small bowel series to make sure of the anatomy of the small bowel and large bowel. That day after about 3 o'clock, I reviewed the films that they had taken with Dr. Hogan, and up to that point we believe that there is no obstruction, but the Gastrografin just has reached the colon, but the patient had not passed any stool yet. So this was the substitute for the progress note that I dictated on 12/20, but there was not a good retrieval from the phone system. Dictated By: VANIA MAE MD PS/NTS Conf#: [id number] DID#: [id number] OZZY
[2016-12-22] MEDS: hydrALAzine 20 MG INJ IV PRN (12:38)
--- NOTE | 2016-12-22 12:41 | PN ---
DATE: 12/22/2016 SUBJECTIVE: No verbal communication, the patient is on the ventilator. OBJECTIVE: VITAL SIGNS: Temperature 98.6, heart rate 63, respirations 16, blood pressure 167/87, O2 saturation 96% with FIO2 of 30% on the ventilator. ABDOMEN: Soft. There is greenish liquid stool in the colostomy bag and according to the chart which is documented by the nurse's patient, has had 3 bowel movements since yesterday afternoon and that is the time we started the patient on GoLYTELY. Then, today is not sure that if the patient has passed big , small dense pieces of the stool or not, but the stool which is in the bag now is only liquid stool. LABORATORY DATA: WBC is 3400 with 72% segmented. Hemoglobin 9.9, hematocrit 29.3, stable but patient is becoming leukopenic. Reason for that questionable. Chemistry: Sodium, potassium, BUN, and creatinine within normal limits. ASSESSMENT AND PLAN: The small bowel series did not show any evidence of obstruction and I have been trying since yesterday to force the patient to pass stool from his transvers colon, ascending colon and descending colon by giving him mineral oil and also GoLYTELY through the NG tube. I think after this, we are going to get a KUB and then probably restart the patient on tube feeding. From other standpoints of view, the patient is going to get treatment according to the PCP and other colleagues' instructions. Dictated By: VANIA MAE MD PS/MACK Conf#: [id number] DID#: [id number] MTDD
--- NOTE | 2016-12-22 13:44 | PN ---
Date/Time of Note Date/Time of Note DATE: 12/22/16 TIME: 13:36 Assessment/Plan VTE Prophylaxis VTE Prophylaxis Intervention: SCD's Lines/Catheters IV [facility] Saline Lock Urinary Cath still in place: Yes Reason Cath still needed: urinary retention Assessment/Plan Chief Complaint/Hosp Course Patient's continues to receive a laxative via NG tube, plan for KUB, patient remains hemodynamically stable, continued on TPN and lipids, on ventilator support without distress. Assessment and plan: - Partial small bowel obstruction. Dr. Teran is following patient in general surgery consultation. Continue TPN and lipids. No obstruction per upper GI series. - Hypertension. Continue hydralazine. - S/p upper gastrointestinal bleed. Continue Protonix. Dr. Pryor is following in gastric gastroenterology consultation. - S/p sepsis secondary to healthcare acquired pneumonia. - Healthcare facility-acquired pneumonia. Continue antibiotics. Dr. Tang is following in infection disease consultation. - UTI.S/p treatment. 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 - Ventilator dependent respiratory failure with tracheostomy. Dr. Saenz is following in pulmonology consultation. - Chronic obstructive pulmonary disease. - Dysphagia. -Chronic Chaudhari catheter. -Colostomy -Bedbound status. Further recommendations based on clinical course. Plan of care discussed with Dr. Meeks. Problems: Exam/Review of Systems Vital Signs Vitals Vital Signs Date Time Temp Pulse Resp B/P Pulse Ox O2 Delivery O2 Flow Rate FiO2 12/22/16 12:39 64 164/78 12/22/16 11:10 98.6 16 96 12/22/16 09:00 30 Intake and Output 12/21/16 12/21/16 12/22/16 15:00 23:00 07:00 Intake Total 1000 ml 1650 ml 1000 ml Output Total 870 ml 655 ml 1000 ml Balance 130 ml 995 ml 0 ml Exam Constitutional: frail, non-verbal Psych: confusion Head: normocephalic Eyes: nl conjunctiva ENMT: nl external ears & nose Neck: other (Tracheostomy), supple Respiratory: diminished breath sounds Cardiovascular: other (Atrial arrhythmia) Gastrointestinal: non-tender, other (colostomy), soft Genitourinary - Male: other (Chaudhari) Musculoskeletal: other (Contracted) Extremities: normal pulses Neurological: other (Chronic encephalopathy) Skin: other (Wounds) Results Result Diagram: 12/22/16 0638 12/22/16 1050 Results 24 hrs Laboratory Tests Test 12/22/16 06:38 12/22/16 10:50 White Blood Count 3.4 #L Red Blood Count 3.13 L Hemoglobin 9.9 L Hematocrit 29.3 L Mean Corpuscular Volume 93.6 Mean Corpuscular Hemoglobin 31.6 Mean Corpuscular Hemoglobin Concent 33.8 Red Cell Distribution Width 17.7 H Platelet Count 117 L Mean Platelet Volume Neutrophils % 32.5 L Lymphocytes % 24.5 Monocytes % 10.3 Eosinophils % 9.1 H Basophils % 0.9 Nucleated Red Blood Cells % 2.4 H Neutrophils # 1.1 L Lymphocytes # 0.8 Monocytes # 0.4 Eosinophils # 0.3 Basophils # 0.0 Nucleated Red Blood Cells # 0.1 H Sodium Level 134 L Potassium Level 3.8 Chloride Level 100 Carbon Dioxide Level 27 Anion Gap 11 Blood Urea Nitrogen 18 Creatinine 0.76 Glucose Level 118 Calcium Level 8.7 Phosphorus Level 4.1 Magnesium Level 1.9 Medications Medications Current Medications Pantoprazole (Protonix Iv) 40 mg BID@,18 IV Last administered on 12/22/16 03 :42; Admin Dose 40 MG; Start 12/09/16 at 06:00 Acetaminophen (Tylenol Supp) 650 mg Q4H PRN [place] PAIN OR TEMP ABOVE 38C; Start at 20:30 Morphine Sulfate (morphine) 2 mg Q4H PRN IV PAIN; Start 12/08/16 at 20:30 Collagenase (Santyl) 1 applic DAILY TOP Last administered on 12/22/16 08:56; Admin Dose 1 APPLIC; Start 12/09/16 at 09:00 Collagenase (Santyl) 1 applic PRN PRN TOP SOILED OR DISLODGED DRESSING; Start 12/09/16 at 04:30 Diazepam (Valium) 5 mg Q12H PRN IV ANXIETY Last administered on 12/09/16 23:41 ; Admin Dose 5 MG; Start 12/09/16 at 23:00 Ondansetron HCl (Zofran Inj) 4 mg Q4H PRN IV NAUSEA AND/OR VOMITING Last administered on 12/16/16 09:37; Admin Dose 4 MG; Start 12/10/16 at 17:00 Metoprolol Tartrate (Lopressor) 5 mg Q6H PRN IV SBP >160 or HR > 120 Last administered on 12/10/16 23:14; Admin Dose 5 MG; Start 12/10/16 at 17:00 Hydralazine HCl 20 mg 20 mg Q6H PRN IV SBP > 160 Last administered on 12:38; Admin Dose 20 MG; Start 12/10/16 at 17:00 Linezolid (Zyvox 600mg/D5W (Pmx)) 300 ml @ 300 mls/hr Q12 IVPB Last administered on 12/22/16 08:55; Admin Dose 300 MLS/HR; Start 12/12/16 at 21:00 Mupirocin (Bactroban) APPLY TO bilateral nares BID TOP Last administered on 08:55; Admin Dose 1 APPLIC; Start 12/12/16 at 21:00; Stop 12/22/16 at 20 :59 IV Flush 10 ml 10 ml PRN PRN IV IV PROTOCOL; Start 12/15/16 at 15:30 Fat Emulsion Intravenous 250 ml @ 20.833 mls/ hr Q24H IV Last administered on 12/21/16 21:35; Admin Dose 20.833 MLS/HR; Start 12/15/16 at 21:00 Total Parenteral Nutrition (Tpn) 1,000 ml @ 60 mls/hr [id number] IV Last administered on 12/22/16 03:42; Admin Dose 60 MLS/HR; Start 12/15/16 at 21:00 IV Flush (NS 10 ml) 10 ml PRN PRN IV IV PROTOCOL; Start 12/16/16 at 18:00 Mineral Oil (Mineral Oil) 30 ml QID NGT Last administered on 12/22/16 12:37; Admin Dose 30 ML; Start 12/18/16 at 13:00 Polyethylene Glycol/ Electrolytes (Golytely) 1,500 ml ONCE NGT Last administered on 12/21/16 21:34; Admin Dose 1,500 ML; Start 12/21/16 at 20:00; Stop 12/22/16 at 19:59 AMY MORAN December 22, 2016 13:44
--- NOTE | 2016-12-22 18:59 | CONS ---
Date/Time of Note Date/Time of Note DATE: 12/22/16 TIME: 18:58 Assessment/Plan Assessment/Plan Chief Complaint/Hosp Course - severe sepsis due to HCAP - HCAP/VAP due to kleb (KPC) and pseudo - UTI due to acineto and pseudo related to chronic indwelling Chaudhari - multiple pressure ulcer - recurrent infection of ulcer of RLE due to MRSA and pseudo. 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 the wound culture grew carbapenemase producing kleb, enterococci and pseudo - Dysphagia s/p EGD and new G tube placement 09/15/2016 - h/o infection of wound of RLE due to pseudomonas. 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/11/2016 - possible recurrent SBO per CT on 12/10/2016 - ileus - recurrent leukocytosis likely reactive from multiple emesis on 12/10/2016 & (remains afebrile) - MRSA nasal colonization - Note: S/p tobramycin (12/12/2016-12/18/2016) for pseudomonas and acinetobacter Recommendations: -monitor off abx - mupirocin (12/12/2016-) for MRSA decolonization for 10 days - monitor GFR closely - wound care - contact isolation Problems: Consultation Date/Type/Reason Admit Date/Time December 08, 2016 at 12:01 Type of Consultation: Infectious Disease Referring Provider: MARLA AKBAR MD Exam/Review of Systems Vital Signs Vitals Vital Signs Date Time Temp Pulse Resp B/P Pulse Ox O2 Delivery O2 Flow Rate FiO2 12/22/16 17:10 89 16 98 30 12/22/16 16:52 142/80 12/22/16 15:44 98.6 Intake and Output 12/21/16 12/21/16 12/22/16 15:00 23:00 07:00 Intake Total 1000 ml 1650 ml 1000 ml Output Total 870 ml 655 ml 1000 ml Balance 130 ml 995 ml 0 ml Results Result Diagram: 12/22/16 0638 12/22/16 1050 Results 24 hrs Laboratory Tests Test 12/22/16 06:38 12/22/16 10:50 White Blood Count 3.4 #L Red Blood Count 3.13 L Hemoglobin 9.9 L Hematocrit 29.3 L Mean Corpuscular Volume 93.6 Mean Corpuscular Hemoglobin 31.6 Mean Corpuscular Hemoglobin Concent 33.8 Red Cell Distribution Width 17.7 H Platelet Count 117 L Mean Platelet Volume Neutrophils % 32.5 L Lymphocytes % 24.5 Monocytes % 10.3 Eosinophils % 9.1 H Basophils % 0.9 Nucleated Red Blood Cells % 2.4 H Neutrophils # 1.1 L Lymphocytes # 0.8 Monocytes # 0.4 Eosinophils # 0.3 Basophils # 0.0 Nucleated Red Blood Cells # 0.1 H Sodium Level 134 L Potassium Level 3.8 Chloride Level 100 Carbon Dioxide Level 27 Anion Gap 11 Blood Urea Nitrogen 18 Creatinine 0.76 Glucose Level 118 Calcium Level 8.7 Phosphorus Level 4.1 Magnesium Level 1.9 Medications Medications Current Medications Pantoprazole (Protonix Iv) 40 mg BID@06,18 IV Last administered on 12/22/16 17 :10; Admin Dose 40 MG; Start 12/09/16 at 06:00 Acetaminophen (Tylenol Supp) 650 mg Q4H PRN [place] PAIN OR TEMP ABOVE 38C; Start at 20:30 Morphine Sulfate (morphine) 2 mg Q4H PRN IV PAIN; Start 12/08/16 at 20:30 Collagenase (Santyl) 1 applic DAILY TOP Last administered on 12/22/16 08:56; Admin Dose 1 APPLIC; Start 12/09/16 at 09:00 Collagenase (Santyl) 1 applic PRN PRN TOP SOILED OR DISLODGED DRESSING; Start 12/09/16 at 04:30 Diazepam (Valium) 5 mg Q12H PRN IV ANXIETY Last administered on 12/09/16 23:41 ; Admin Dose 5 MG; Start 12/09/16 at 23:00 Ondansetron HCl (Zofran Inj) 4 mg Q4H PRN IV NAUSEA AND/OR VOMITING Last administered on 12/16/16 09:37; Admin Dose 4 MG; Start 12/10/16 at 17:00 Metoprolol Tartrate (Lopressor) 5 mg Q6H PRN IV SBP >160 or HR > 120 Last administered on 12/10/16 23:14; Admin Dose 5 MG; Start 12/10/16 at 17:00 Hydralazine HCl 20 mg 20 mg Q6H PRN IV SBP > 160 Last administered on 12:38; Admin Dose 20 MG; Start 12/10/16 at 17:00 Linezolid (Zyvox 600mg/D5W (Pmx)) 300 ml @ 300 mls/hr Q12 IVPB Last administered on 12/22/16 08:55; Admin Dose 300 MLS/HR; Start 12/12/16 at 21:00 Mupirocin (Bactroban) APPLY TO bilateral nares BID TOP Last administered on 08:55; Admin Dose 1 APPLIC; Start 12/12/16 at 21:00; Stop 12/22/16 at 20 :59 IV Flush 10 ml 10 ml PRN PRN IV IV PROTOCOL; Start 12/15/16 at 15:30 Fat Emulsion Intravenous 250 ml @ 20.833 mls/ hr Q24H IV Last administered on 12/21/16 21:35; Admin Dose 20.833 MLS/HR; Start 12/15/16 at 21:00 Total Parenteral Nutrition (Tpn) 1,000 ml @ 60 mls/hr [id number] IV Last administered on 12/22/16 03:42; Admin Dose 60 MLS/HR; Start 12/15/16 at 21:00 IV Flush (NS 10 ml) 10 ml PRN PRN IV IV PROTOCOL; Start 12/16/16 at 18:00 Mineral Oil (Mineral Oil) 30 ml QID NGT Last administered on 12/22/16 17:10; Admin Dose 30 ML; Start 12/18/16 at 13:00 Polyethylene Glycol/ Electrolytes (Golytely) 1,500 ml ONCE NGT Last administered on 12/21/16 21:34; Admin Dose 1,500 ML; Start 12/21/16 at 20:00; Stop 12/22/16 at 19:59 MARIBELL SUN MD December 22, 2016 18:59
[2016-12-22] MEDS: FAT EMULSION 20% 250 ML IV SCH (20:56)
--- NOTE | 2016-12-22 21:46 | RADRPT ---
PROCEDURE: XR Abdomen. CLINICAL INDICATION: Previous small bowel follow-through. Evaluate for clearance of contrast. TECHNIQUE: Single AP view of the abdomen is available for review. COMPARISON: 12/20/2016 FINDINGS: The bowel gas pattern is normal. There is no evidence of obstruction. There are no abnormal calcifications overlying the urinary tracts. No free air identified. The osseous structures do not demonstrate acute abnormality. Nasogastric tube demonstrates stable and satisfactory position in the body of the stomach. Residual oral contrast seen in the left hemicolon. IMPRESSION: 1. No evidence of bowel obstruction, perforation or radiopaque calculi overlying the urinary tracts . 2. Residual oral contrast is seen in the left hemicolon. RPTAT: HLDM .Garry Mckay MD, MD Date Time Electronically viewed and signed by .Garry Mckay MD, on 12/22/2016 21:46 .M/
[2016-12-23] VITALS (27 sets, daily range): BP systolic 136–177; BP diastolic 63–95; PULSE 68–83; RESP 16–21
[2016-12-23] MEDS: hydrALAzine 20 MG INJ IV PRN (01:00)
[2016-12-23] MEDS: IPRATROPIUM (HFA) 12.9 GM INHALER INH SCH ×4 (02:00→19:43)
[2016-12-23] MEDS: ALBUTEROL 18 GM INHALER INH SCH ×4 (02:00→19:43)
[2016-12-23] MEDS: PANTOPRAZOLE 40 MG INJ IV SCH ×2 (06:29→18:07)
[2016-12-23 07:50] LABS: ADD SCAN DIFF NO
[2016-12-23 08:05] LABS: ABNORMAL IP MESSAGE 1; BASOPHILS % 0.8 % (0.0-2.0); EOSINOPHILS # 0.4 10^3/ul (0.0-0.5); EOSINOPHILS % 8.8 % (0.0-7.0); HEMATOCRIT 28.5 % (42.0-52.0); HEMOGLOBIN 9.6 g/dl (14.0-18.0); LYMPHOCYTES # 1.6 10^3/ul (0.8-2.9); LYMPHOCYTES % 39.2 % (15.0-51.0); MEAN CORPUSCULAR HEMOGLOBIN 29.1 pg (29.0-33.0); MEAN CORPUSCULAR HGB CONC 33.7 g/dl (32.0-37.0); MEAN CORPUSCULAR VOLUME 86.4 fl (82.0-101.0); MEAN PLATELET VOLUME 13.5 fl (7.4-10.4); MONOCYTE # 0.7 10^3/ul (0.3-0.9); MONOCYTES % 18.1 % (0.0-11.0); NEUTROPHIL # 1.3 10^3/ul (1.6-7.5); NEUTROPHILS % 33.1 % (39.0-77.0); NUCLEATED RED BLOOD CELLS% 0.5 /100WBC (0.0-0.0); PLATELET COUNT 120 10^3/UL (140-415); RED CELL DISTRIBUTION WIDTH 17.1 % (11.5-14.5)
[2016-12-23 08:20] LABS: CALCIUM 8.5 mg/dl (8.4-10.2); CREATININE 0.76 mg/dl (0.61-1.24); PHOSPHORUS 4.1 mg/dl (2.5-4.9); POTASSIUM 3.6 mmol/L (3.5-5.1)
[2016-12-23] MEDS: MINERAL OIL 30ML CUP NGT SCH ×2 (08:56→12:49)
[2016-12-23] MEDS: COLLAGENASE 30 GM TUBE TOP SCH (08:56)
[2016-12-23] MEDS ORDERED: HYDROCODONE/APAP (5/325) TAB PO PRN (10:00)
[2016-12-23] MEDS ORDERED: DEXTROSE 5%-0.9% NACL 1,000 ML IV SCH (10:30)
--- NOTE | 2016-12-23 13:26 | PN ---
DATE: 12/23/2016 PROGRESS NOTE FOLLOWUP The patient is being followed for the possibility of a small-bowel obstruction. SUBJECTIVE: No communication. The patient is nonverbal. Eyes are closed and on a ventilator. OBJECTIVE: VITAL SIGNS: Temperature 98.5, heart rate 60 and regular, respirations 19, blood pressure 141/72, saturations 100% on FIO2 of 30% on the ventilator. LABORATORY: WBC 4000 with 39% neutrophils. Hemoglobin 9.6, hematocrit 28.5. Chemistry: BUN, creatinine, sodium, and potassium normal. The patient on a ventilator, nonverbal. ABDOMEN: Soft. Colostomy bag shows evidence of greenish liquid stool. KUB done yesterday shows there is still some residual contrast in the left distal transverse colon and left descending colon before the colostomy. EXTREMITIES: No calf tenderness. ASSESSMENT AND PLAN: For physical examination and with the small bowel follow through performed with Gastrografin the patient's GI system is open and is not obstructed. Now we to start the patient on clear liquids, then maybe water by NG tube and later on start tube feedings. I will let the nurse know about this. Dictated By: VANIA MAE MD PS/NTS Conf#: [id number] DID#: [id number] MTDD
--- NOTE | 2016-12-23 14:00 | CONS ---
Date/Time of Note Date/Time of Note DATE: 12/23/16 TIME: 13:53 Assessment/Plan Assessment/Plan Chief Complaint/Hosp Course - severe sepsis due to HCAP - HCAP/VAP due to kleb (KPC) and pseudo - UTI due to acineto and pseudo related to chronic indwelling Vincent - multiple pressure ulcer - recurrent infection of ulcer of RLE due to MRSA and pseudo. 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 the wound culture grew carbapenemase producing kleb, enterococci and pseudo - Dysphagia s/p EGD and new G tube placement 09/15/2016 - h/o infection of wound of RLE due to pseudomonas. 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/11/2016 - possible recurrent SBO per CT on 12/10/2016 - ileus - recurrent leukocytosis likely reactive from multiple emesis on 12/10/2016 & (remains afebrile) - MRSA nasal colonization - treated with Mupirocin 12/12/2016-12/22/2016 - Note: S/p tobramycin (12/12/2016-12/18/2016) for pseudomonas and acinetobacter, Cefepime (12/12/2016-12/21/2016) for KPC in sputum, and Linezolid (12/12/2016-2016) for MRSA Recommendations: - monitor off abx - continue local wound care - contact isolation Management d/w [facility] and Dr. Tang Problems: Consultation Date/Type/Reason Admit Date/Time December 08, 2016 at 12:01 Initial Consult Date 12/09/16 Type of Consultation: Infectious Disease Referring Provider: MARLA AKBAR MD 24 HR Interval Summary Free Text/Dictation KUB yesterday showed residual contrast; planning to give free water via NGT and if pt tolerates it then pt can resume NGT feeds per d/w nursing staff. Unable to perform ROS due to chronic encephalopathy. Subjective hx not possible: pt non-verbal Exam/Review of Systems Vital Signs Vitals Vital Signs Date Time Temp Pulse Resp B/P Pulse Ox O2 Delivery O2 Flow Rate FiO2 12/23/16 12:00 68 12/23/16 11:42 98.5 19 141/72 100 12/23/16 11:05 30 12/23/16 01:23 Mechanical Ventilator Intake and Output 12/22/16 12/22/16 12/23/16 15:00 23:00 07:00 Intake Total 550 ml 920 ml 720 ml Output Total 0 ml 1100 ml 750 ml Balance 550 ml -180 ml -30 ml Exam Constitutional: frail, non-verbal, other (chronically debilitated) Head: normocephalic Eyes: nl sclera Neck: other (trach with vent) Respiratory: diminished breath sounds Cardiovascular: regular rate and rhythm Gastrointestinal: bowel sounds (present), other (NGT is clamped; ostomy bag over old GT site - bag currently empty, LLQ colostomy intact, stoma pink, with greenish liquid stool), soft, mildly distended Genitourinary - Male: other (vincent cath present) Extremities: other (contracted). Bilateral foot drop noted. RUE PICC with no e/ o infection. Skin: other (wounds- see nurse notes for details) Results Result Diagram: 12/23/16 0653 12/23/16 0653 Results 24 hrs Laboratory Tests Test 12/23/16 06:53 White Blood Count 4.0 L Red Blood Count 3.30 L Hemoglobin 9.6 L Hematocrit 28.5 L Mean Corpuscular Volume 86.4 Mean Corpuscular Hemoglobin 29.1 Mean Corpuscular Hemoglobin Concent 33.7 Red Cell Distribution Width 17.1 H Platelet Count 120 L Mean Platelet Volume 13.5 H Neutrophils % 33.1 L Lymphocytes % 39.2 Monocytes % 18.1 H Eosinophils % 8.8 H Basophils % 0.8 Nucleated Red Blood Cells % 0.5 H Neutrophils # 1.3 L Lymphocytes # 1.6 Monocytes # 0.7 Eosinophils # 0.4 Basophils # 0.0 Nucleated Red Blood Cells # 0.0 Sodium Level 136 Potassium Level 3.6 Chloride Level 101 Carbon Dioxide Level 28 Anion Gap 11 Blood Urea Nitrogen 19 Creatinine 0.76 Glucose Level 76 # Calcium Level 8.5 Phosphorus Level 4.1 Magnesium Level 2.0 Medications Medications Current Medications Pantoprazole (Protonix Iv) 40 mg BID@,18 IV Last administered on 12/23/16 06 :29; Admin Dose 40 MG; Start 12/09/16 at 06:00 Acetaminophen (Tylenol Supp) 650 mg Q4H PRN [place] PAIN OR TEMP ABOVE 38C; Start at 20:30 Morphine Sulfate (morphine) 2 mg Q4H PRN IV PAIN; Start 12/08/16 at 20:30 Collagenase (Santyl) 1 applic DAILY TOP Last administered on 12/23/16 08:56; Admin Dose 1 APPLIC; Start 12/09/16 at 09:00 Collagenase (Santyl) 1 applic PRN PRN TOP SOILED OR DISLODGED DRESSING; Start 12/09/16 at 04:30 Diazepam (Valium) 5 mg Q12H PRN IV ANXIETY Last administered on 12/09/16 23:41 ; Admin Dose 5 MG; Start 12/09/16 at 23:00 Ondansetron HCl (Zofran Inj) 4 mg Q4H PRN IV NAUSEA AND/OR VOMITING Last administered on 12/16/16 09:37; Admin Dose 4 MG; Start 12/10/16 at 17:00 Metoprolol Tartrate (Lopressor) 5 mg Q6H PRN IV SBP >160 or HR > 120 Last administered on 12/10/16 23:14; Admin Dose 5 MG; Start 12/10/16 at 17:00 Hydralazine HCl (Apresoline) 20 mg Q6H PRN IV SBP > 160 Last administered on 01:00; Admin Dose 20 MG; Start 12/10/16 at 17:00 IV Flush 10 ml 10 ml PRN PRN IV IV PROTOCOL; Start 12/15/16 at 15:30 Fat Emulsion Intravenous 250 ml @ 20.833 mls/ hr Q24H IV Last administered on 12/22/16 20:56; Admin Dose 20.833 MLS/HR; Start 12/15/16 at 21:00 Total Parenteral Nutrition (Tpn) 1,000 ml @ 60 mls/hr [id number] IV Last administered on 12/22/16 21:02; Admin Dose 60 MLS/HR; Start 12/15/16 at 21:00; Status Future Hold IV Flush 10 ml 10 ml PRN PRN IV IV PROTOCOL; Start 12/16/16 at 18:00 Dextrose/Sodium Chloride (D5-NS) 1,000 ml @ 70 mls/hr [id number] IV Last administered on 12/23/16 10:40; Admin Dose 70 MLS/HR; Start 12/23/16 at 10:30 Mineral Oil (Mineral Oil) 30 ml DAILY NGT ; Start 12/24/16 at 09:00 Procedures Procedures KUB 12/22/16: 1. No evidence of bowel obstruction, perforation or radiopaque calculi overlying the urinary tracts. 2. Residual oral contrast is seen in the left hemicolon. KO LOVING NP December 23, 2016 14:00
--- NOTE | 2016-12-23 14:34 | PN ---
Date/Time of Note Date/Time of Note DATE: 12/23/16 TIME: 14:28 Assessment/Plan VTE Prophylaxis VTE Prophylaxis Intervention: other Lines/Catheters [facility] Saline Lock Urinary Cath still in place: Yes Reason Cath still needed: urinary retention Assessment/Plan Assessment/Plan - Partial small bowel obstruction. Dr. Teran is following patient in general surgery consultation. Continue TPN and lipids. No obstruction per upper GI series. - Hypertension. Continue hydralazine. - S/p upper gastrointestinal bleed. Continue Protonix. Dr. Pryor is following in gastric gastroenterology consultation. - S/p sepsis secondary to healthcare acquired pneumonia. - Healthcare facility-acquired pneumonia. Continue antibiotics. Dr. Tang is following in infection disease consultation. - UTI.S/p treatment. 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 - Ventilator dependent respiratory failure with tracheostomy. Dr. Saenz is following in pulmonology consultation. - Chronic obstructive pulmonary disease. - Dysphagia. -Chronic Chaudhari catheter. -Colostomy -Bedbound status. Further recommendations based on clinical course. Plan of care discussed with Dr. Meeks. Subjective 24 Hr Interval Summary Free Text/Dictation NAD, seems comfortable, afebrile, remains on ventilator, PICC line issues- possible bleeding, will do CXR to confirm placement. Exam/Review of Systems Vital Signs Vitals Vital Signs Date Time Temp Pulse Resp B/P Pulse Ox O2 Delivery O2 Flow Rate FiO2 12/23/16 13:10 66 16 100 30 12/23/16 11:42 98.5 141/72 12/23/16 01:23 Mechanical Ventilator Intake and Output 12/22/16 12/22/16 12/23/16 15:00 23:00 07:00 Intake Total 550 ml 920 ml 720 ml Output Total 0 ml 1100 ml 750 ml Balance 550 ml -180 ml -30 ml Exam Eyes: nl sclera ENMT: nl external ears & nose Respiratory: clear to auscultation Cardiovascular: nl pulses Gastrointestinal: non-tender, other, soft Neurological: lethargic Skin: other Lymph: nontender Results Result Diagram: 12/23/16 0653 12/23/16 0653 Results 24 hrs Laboratory Tests Test 12/23/16 06:53 White Blood Count 4.0 L Red Blood Count 3.30 L Hemoglobin 9.6 L Hematocrit 28.5 L Mean Corpuscular Volume 86.4 Mean Corpuscular Hemoglobin 29.1 Mean Corpuscular Hemoglobin Concent 33.7 Red Cell Distribution Width 17.1 H Platelet Count 120 L Mean Platelet Volume 13.5 H Neutrophils % 33.1 L Lymphocytes % 39.2 Monocytes % 18.1 H Eosinophils % 8.8 H Basophils % 0.8 Nucleated Red Blood Cells % 0.5 H Neutrophils # 1.3 L Lymphocytes # 1.6 Monocytes # 0.7 Eosinophils # 0.4 Basophils # 0.0 Nucleated Red Blood Cells # 0.0 Sodium Level 136 Potassium Level 3.6 Chloride Level 101 Carbon Dioxide Level 28 Anion Gap 11 Blood Urea Nitrogen 19 Creatinine 0.76 Glucose Level 76 # Calcium Level 8.5 Phosphorus Level 4.1 Magnesium Level 2.0 Medications Medications Current Medications Pantoprazole (Protonix Iv) 40 mg BID@,18 IV Last administered on 12/23/16 06 :29; Admin Dose 40 MG; Start 12/09/16 at 06:00 Acetaminophen (Tylenol Supp) 650 mg Q4H PRN [place] PAIN OR TEMP ABOVE 38C; Start at 20:30 Morphine Sulfate (morphine) 2 mg Q4H PRN IV PAIN; Start 12/08/16 at 20:30 Collagenase (Santyl) 1 applic DAILY TOP Last administered on 12/23/16 08:56; Admin Dose 1 APPLIC; Start 12/09/16 at 09:00 Collagenase (Santyl) 1 applic PRN PRN TOP SOILED OR DISLODGED DRESSING; Start 12/09/16 at 04:30 Diazepam (Valium) 5 mg Q12H PRN IV ANXIETY Last administered on 12/09/16 23:41 ; Admin Dose 5 MG; Start 12/09/16 at 23:00 Ondansetron HCl (Zofran Inj) 4 mg Q4H PRN IV NAUSEA AND/OR VOMITING Last administered on 12/16/16 09:37; Admin Dose 4 MG; Start 12/10/16 at 17:00 Metoprolol Tartrate (Lopressor) 5 mg Q6H PRN IV SBP >160 or HR > 120 Last administered on 12/10/16 23:14; Admin Dose 5 MG; Start 12/10/16 at 17:00 Hydralazine HCl (Apresoline) 20 mg Q6H PRN IV SBP > 160 Last administered on 01:00; Admin Dose 20 MG; Start 12/10/16 at 17:00 IV Flush 10 ml 10 ml PRN PRN IV IV PROTOCOL; Start 12/15/16 at 15:30 Fat Emulsion Intravenous 250 ml @ 20.833 mls/ hr Q24H IV Last administered on 12/22/16 20:56; Admin Dose 20.833 MLS/HR; Start 12/15/16 at 21:00 Total Parenteral Nutrition (Tpn) 1,000 ml @ 60 mls/hr [id number] IV Last administered on 12/22/16 21:02; Admin Dose 60 MLS/HR; Start 12/15/16 at 21:00; Status Future Hold IV Flush 10 ml 10 ml PRN PRN IV IV PROTOCOL; Start 12/16/16 at 18:00 Dextrose/Sodium Chloride (D5-NS) 1,000 ml @ 70 mls/hr [id number] IV Last administered on 12/23/16 10:40; Admin Dose 70 MLS/HR; Start 12/23/16 at 10:30 Mineral Oil (Mineral Oil) 30 ml DAILY NGT ; Start 12/24/16 at 09:00 MARIO ROWE December 23, 2016 14:34
[2016-12-23] MEDS: FAT EMULSION 20% 250 ML IV SCH (21:11)
[2016-12-23] MEDS: TPN 1,000 ML IV SCH (21:12)
[2016-12-24] VITALS (23 sets, daily range): BP systolic 136–186; BP diastolic 74–100; PULSE 59–106; RESP 16–26
[2016-12-24] MEDS: ALBUTEROL 18 GM INHALER INH SCH ×4 (01:31→19:36)
[2016-12-24] MEDS: IPRATROPIUM (HFA) 12.9 GM INHALER INH SCH ×4 (01:31→19:36)
[2016-12-24] MEDS: TPN 1,000 ML IV SCH ×2 (03:33→22:44)
[2016-12-24] MEDS: PANTOPRAZOLE 40 MG INJ IV SCH ×2 (06:45→18:09)
[2016-12-24 07:22] LABS: ADD SCAN DIFF NO
[2016-12-24 07:25] LABS: ABNORMAL IP MESSAGE 1; BASOPHILS % 1.1 % (0.0-2.0); EOSINOPHILS # 0.5 10^3/ul (0.0-0.5); EOSINOPHILS % 12.9 % (0.0-7.0); HEMATOCRIT 27.3 % (42.0-52.0); HEMOGLOBIN 8.9 g/dl (14.0-18.0); LYMPHOCYTES # 1.3 10^3/ul (0.8-2.9); LYMPHOCYTES % 38.3 % (15.0-51.0); MEAN CORPUSCULAR HEMOGLOBIN 28.6 pg (29.0-33.0); MEAN CORPUSCULAR HGB CONC 32.6 g/dl (32.0-37.0); MEAN CORPUSCULAR VOLUME 87.8 fl (82.0-101.0); MEAN PLATELET VOLUME 14.1 fl (7.4-10.4); MONOCYTE # 0.7 10^3/ul (0.3-0.9); MONOCYTES % 20.3 % (0.0-11.0); NEUTROPHILS % 27.1 % (39.0-77.0); PLATELET COUNT 115 10^3/UL (140-415); RED BLOOD COUNT 3.11 10^6/ul (4.70-6.10); RED CELL DISTRIBUTION WIDTH 17.1 % (11.5-14.5); WHITE BLOOD COUNT 3.5 10^3/ul (4.8-10.8)
[2016-12-24 07:45] LABS: CALCIUM 8.7 mg/dl (8.4-10.2); CREATININE 0.82 mg/dl (0.61-1.24); POTASSIUM 3.9 mmol/L (3.5-5.1)
[2016-12-24] MEDS: MINERAL OIL 30ML CUP NGT SCH (10:55)
[2016-12-24] MEDS: COLLAGENASE 30 GM TUBE TOP SCH (10:57)
--- NOTE | 2016-12-24 13:17 | PN ---
Date/Time of Note Date/Time of Note DATE: 12/24/16 TIME: 13:15 Assessment/Plan VTE Prophylaxis VTE Prophylaxis Intervention: SCD's Lines/Catheters IV Catheter Type (from [facility] [place] Saline Lock Urinary Cath still in place: Yes Reason Cath still needed: urinary retention Assessment/Plan Chief Complaint/Hosp Course Remains afebrile, no emesis, will restart tube feeding via NGT per surgery recs , monitor residual. Assessment and plan: - Partial small bowel obstruction, resolved. No obstruction per upper GI series. Advance NG tube feeding per surgery. Dr. Teran is following patient in general surgery consultation. - Hypertension. Continue hydralazine. - S/p upper gastrointestinal bleed. Continue Protonix. Dr. Pryor is following in gastric gastroenterology consultation. - S/p sepsis secondary to healthcare acquired pneumonia. - Healthcare facility-acquired pneumonia. Continue antibiotics. Dr. Tang is following in infection disease consultation. - UTI.S/p treatment. 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 - Ventilator dependent respiratory failure with tracheostomy. Dr. Saenz is following in pulmonology consultation. - Chronic obstructive pulmonary disease. Continue breathing treatment. - Dysphagia. -Chronic Chaudhari catheter. -Colostomy -Bedbound status. Further recommendations based on clinical course. Plan of care discussed with Dr. Meeks. Problems: Exam/Review of Systems Vital Signs Vitals Vital Signs Date Time Temp Pulse Resp B/P Pulse Ox O2 Delivery O2 Flow Rate FiO2 12/24/16 12:13 69 12/24/16 11:54 98.0 18 159/74 98 12/24/16 11:15 30 12/23/16 01:23 Mechanical Ventilator Intake and Output 12/23/16 12/23/16 12/24/16 15:00 23:00 07:00 Intake Total 390 ml 250 ml 1062 ml Output Total 0 ml 1600 ml 1400 ml Balance 390 ml -1350 ml -338 ml Exam Constitutional: frail, non-verbal Psych: confusion Head: normocephalic Eyes: nl conjunctiva ENMT: nl external ears & nose Neck: other (Tracheostomy), supple Respiratory: diminished breath sounds Cardiovascular: other (Atrial arrhythmia) Gastrointestinal: non-tender, other (colostomy), soft Genitourinary - Male: other (Chaudhari) Musculoskeletal: other (Contracted) Extremities: normal pulses Neurological: other (Chronic encephalopathy) Skin: other (Wounds) Results Result Diagram: 12/24/16 0633 12/24/16 0623 Results 24 hrs Laboratory Tests Test 12/24/16 06:23 12/24/16 06:33 Sodium Level 136 Potassium Level 3.9 Chloride Level 102 Carbon Dioxide Level 29 Anion Gap 9 Blood Urea Nitrogen 17 Creatinine 0.82 Glucose Level 82 Calcium Level 8.7 Phosphorus Level 4.0 Magnesium Level 2.0 White Blood Count 3.5 L Red Blood Count 3.11 L Hemoglobin 8.9 L Hematocrit 27.3 L Mean Corpuscular Volume 87.8 Mean Corpuscular Hemoglobin 28.6 L Mean Corpuscular Hemoglobin Concent 32.6 Red Cell Distribution Width 17.1 H Platelet Count 115 L Mean Platelet Volume 14.1 H Neutrophils % 27.1 L Lymphocytes % 38.3 Monocytes % 20.3 H Eosinophils % 12.9 H Basophils % 1.1 Nucleated Red Blood Cells % 0.0 Neutrophils # 1.0 L Lymphocytes # 1.3 Monocytes # 0.7 Eosinophils # 0.5 Basophils # 0.0 Nucleated Red Blood Cells # 0.0 Medications Medications Current Medications Pantoprazole (Protonix Iv) 40 mg BID@ IV Last administered on 12/24/16 06 :45; Admin Dose 40 MG; Start 12/09/16 at 06:00 Acetaminophen (Tylenol Supp) 650 mg Q4H PRN [place] PAIN OR TEMP ABOVE 38C; Start at 20:30 Morphine Sulfate (morphine) 2 mg Q4H PRN IV PAIN; Start 12/08/16 at 20:30 Collagenase (Santyl) 1 applic DAILY TOP Last administered on 12/24/16 10:57; Admin Dose 1 APPLIC; Start 12/09/16 at 09:00 Collagenase (Santyl) 1 applic PRN PRN TOP SOILED OR DISLODGED DRESSING; Start 12/09/16 at 04:30 Diazepam (Valium) 5 mg Q12H PRN IV ANXIETY Last administered on 12/09/16 23:41 ; Admin Dose 5 MG; Start 12/09/16 at 23:00 Ondansetron HCl (Zofran Inj) 4 mg Q4H PRN IV NAUSEA AND/OR VOMITING Last administered on 12/16/16 09:37; Admin Dose 4 MG; Start 12/10/16 at 17:00 Metoprolol Tartrate (Lopressor) 5 mg Q6H PRN IV SBP >160 or HR > 120 Last administered on 12/10/16 23:14; Admin Dose 5 MG; Start 12/10/16 at 17:00 Hydralazine HCl (Apresoline) 20 mg Q6H PRN IV SBP > 160 Last administered on 01:00; Admin Dose 20 MG; Start 12/10/16 at 17:00 IV Flush 10 ml 10 ml PRN PRN IV IV PROTOCOL; Start 12/15/16 at 15:30 Fat Emulsion Intravenous 250 ml @ 20.833 mls/ hr Q24H IV Last administered on 12/23/16 21:11; Admin Dose 20.833 MLS/HR; Start 12/15/16 at 21:00 Total Parenteral Nutrition (Tpn) 1,000 ml @ 60 mls/hr [id number] IV Last administered on 12/23/16 21:12; Admin Dose 60 MLS/HR; Start 12/15/16 at 21:00; Status Future hold IV Flush (NS 10 ml) 10 ml PRN PRN IV IV PROTOCOL; Start 12/16/16 at 18:00 Mineral Oil (Mineral Oil) 30 ml DAILY NGT Last administered on 12/24/16 10:55 ; Admin Dose 30 ML; Start 12/24/16 at 09:00 Metoclopramide HCl (Reglan) 10 mg Q12 IV ; Start 12/24/16 at 13:00 AMY MORAN December 24, 2016 13:17
[2016-12-24] MEDS: METOCLOPRAMIDE 10 MG INJ IV SCH ×3 (15:58→23:02)
--- NOTE | 2016-12-24 16:24 | RADRPT ---
PROCEDURE: XR Abdomen. CLINICAL INDICATION: Abdomen pain. TECHNIQUE: AP supine abdomen x-ray. COMPARISON: 12/22/2016. FINDINGS: A small amount of contrast remains in the splenic flexure region of the colon. The nasogastric tube tip is in the stomach. A Chaudhari catheter is present in the bladder. There is no evidence of obstruction. There are no abnormal calcifications overlying the urinary tracts. There are degenerative changes of the spine. IMPRESSION: 1. Small amount of contrast remaining in the splenic flexure of the colon. 2. Nasogastric tube tip in the stomach. RPTAT: QQ .Carter Hogan MD, MD Date Time Electronically viewed and signed by .Carter Hogan MD, on 12/24/2016 16:24 .R/
--- NOTE | 2016-12-24 20:05 | PN ---
DATE: 12/24/2016 PROGRESS NOTE FOLLOWUP SUBJECTIVE: Patient is nonverbal, no communication, on the ventilator. OBJECTIVE: GENERAL: Patient on the ventilator, eyes closed, nonverbal. VITAL SIGNS: Temperature 98, heart rate 69, and fluctuating regular, respirations 18, blood pressure 169/74, saturation 98% on 30% FIO2 on the ventilator. LABORATORY: WBC 3,500 with 27% neutrophils and 20% monocytes. Hemoglobin 8.9, hematocrit 27.3. Chemistry: BUN, creatinine, sodium, potassium, calcium and phosphorus levels are within normal limits. ABDOMEN: Soft. The patient had 200 mL of soft stool last night. PLAN: 1. To start the patient on tube feeding. 2. Get a KUB to make sure about clearance of the stool and contrast from transverse colon and continue other medications and management of the respiration and other problems per other consultants. Dictated By: VANIA MAE MD PS/MACK Conf#: [id number] DID#: [id number]
[2016-12-24] MEDS: FAT EMULSION 20% 250 ML IV SCH (22:46)
[2016-12-25] VITALS (23 sets, daily range): BP systolic 142–166; BP diastolic 73–79; PULSE 69–102; RESP 16–23
[2016-12-25] MEDS: ALBUTEROL 18 GM INHALER INH SCH ×4 (02:56→20:52)
[2016-12-25] MEDS: IPRATROPIUM (HFA) 12.9 GM INHALER INH SCH ×4 (02:56→20:52)
[2016-12-25] MEDS: PANTOPRAZOLE 40 MG INJ IV SCH ×2 (06:11→18:59)
[2016-12-25] MEDS: hydrALAzine 20 MG INJ IV PRN (06:12)
[2016-12-25 07:30] LABS: CALCIUM 8.8 mg/dl (8.4-10.2); CREATININE 0.86 mg/dl (0.61-1.24); POTASSIUM 4.1 mmol/L (3.5-5.1)
[2016-12-25] MEDS: METOCLOPRAMIDE 10 MG INJ IV SCH ×2 (09:38→21:06)
[2016-12-25] MEDS: COLLAGENASE 30 GM TUBE TOP SCH (09:38)
[2016-12-25] MEDS: MINERAL OIL 30ML CUP NGT SCH (09:38)
--- NOTE | 2016-12-25 10:53 | CONS ---
Date/Time of Note Date/Time of Note DATE: 12/24/16 TIME: 10:52 Assessment/Plan Assessment/Plan Chief Complaint/Hosp Course - severe sepsis due to HCAP - HCAP/VAP due to kleb (KPC) and pseudo - UTI due to acineto and pseudo related to chronic indwelling Chaudhari - multiple pressure ulcer - recurrent infection of ulcer of RLE due to MRSA and pseudo. 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 the wound culture grew carbapenemase producing kleb, enterococci and pseudo - Dysphagia s/p EGD and new G tube placement 09/15/2016 - h/o infection of wound of RLE due to pseudomonas. 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/11/2016 - possible recurrent SBO per CT on 12/10/2016 - ileus - recurrent leukocytosis likely reactive from multiple emesis on 12/10/2016 & (remains afebrile) - MRSA nasal colonization - Note: S/p tobramycin (12/12/2016-12/18/2016) for pseudomonas and acinetobacter Recommendations: -monitor off abx - mupirocin (12/12/2016-) for MRSA decolonization for 10 days - monitor GFR closely - wound care - contact isolation Problems: Consultation Date/Type/Reason Admit Date/Time December 08, 2016 at 12:01 Type of Consultation: Infectious Disease Referring Provider: MARLA AKBAR MD Exam/Review of Systems Vital Signs Vitals Vital Signs Date Time Temp Pulse Resp B/P Pulse Ox O2 Delivery O2 Flow Rate FiO2 12/25/16 09:43 76 18 98 30 12/25/16 07:46 98.7 162/75 12/23/16 01:23 Mechanical Ventilator Intake and Output 12/24/16 12/24/16 12/25/16 15:00 23:00 07:00 Intake Total 720 ml 1570 ml Output Total 2000 ml 1050 ml Balance -1280 ml 520 ml Exam Constitutional: alert, oriented, well developed Psych: nl mood/affect, no complaints Head: atraumatic, normocephalic Eyes: EOMI, PERRL, nl conjunctiva, nl lids, nl sclera ENMT: nl external ears & nose, nl lips & teeth, nl nasal mucosa & septum Respiratory: crackles/rales, diminished breath sounds Cardiovascular: regular rate and rhythm Gastrointestinal: nl liver, spleen, non-tender, soft Results Result Diagram: 12/24/16 0633 12/25/16 0615 Results 24 hrs Laboratory Tests Test 12/25/16 06:15 Sodium Level 135 Potassium Level 4.1 Chloride Level 103 Carbon Dioxide Level 28 Anion Gap 8 Blood Urea Nitrogen 19 Creatinine 0.86 Glucose Level 104 Calcium Level 8.8 Medications Medications Current Medications Pantoprazole (Protonix Iv) 40 mg BID@,18 IV Last administered on 12/25/16 06 :11; Admin Dose 40 MG; Start 12/09/16 at 06:00 Acetaminophen (Tylenol Supp) 650 mg Q4H PRN [place] PAIN OR TEMP ABOVE 38C; Start at 20:30 Morphine Sulfate (morphine) 2 mg Q4H PRN IV PAIN; Start 12/08/16 at 20:30 Collagenase (Santyl) 1 applic DAILY TOP Last administered on 12/25/16 09:38; Admin Dose 1 APPLIC; Start 12/09/16 at 09:00 Collagenase (Santyl) 1 applic PRN PRN TOP SOILED OR DISLODGED DRESSING; Start 12/09/16 at 04:30 Diazepam (Valium) 5 mg Q12H PRN IV ANXIETY Last administered on 12/09/16 23:41 ; Admin Dose 5 MG; Start 12/09/16 at 23:00 Ondansetron HCl (Zofran Inj) 4 mg Q4H PRN IV NAUSEA AND/OR VOMITING Last administered on 12/16/16 09:37; Admin Dose 4 MG; Start 12/10/16 at 17:00 Metoprolol Tartrate (Lopressor) 5 mg Q6H PRN IV SBP >160 or HR > 120 Last administered on 12/10/16 23:14; Admin Dose 5 MG; Start 12/10/16 at 17:00 Hydralazine HCl (Apresoline) 20 mg Q6H PRN IV SBP > 160 Last administered on 06:12; Admin Dose 20 MG; Start 12/10/16 at 17:00 IV Flush 10 ml 10 ml PRN PRN IV IV PROTOCOL; Start 12/15/16 at 15:30 Fat Emulsion Intravenous 250 ml @ 20.833 mls/ hr Q24H IV Last administered on 12/24/16 22:46; Admin Dose 20.833 MLS/HR; Start 12/15/16 at 21:00 Total Parenteral Nutrition (Tpn) 1,000 ml @ 60 mls/hr [id number] IV Last administered on 12/24/16 22:44; Admin Dose 60 MLS/HR; Start 12/15/16 at 21:00; Status Future hold IV Flush (NS 10 ml) 10 ml PRN PRN IV IV PROTOCOL; Start 12/16/16 at 18:00 Mineral Oil (Mineral Oil) 30 ml DAILY NGT Last administered on 12/25/16 09:38 ; Admin Dose 30 ML; Start 12/24/16 at 09:00 Metoclopramide HCl (Reglan) 10 mg Q12 IV Last administered on 12/25/16 09:38; Admin Dose 10 MG; Start 12/24/16 at 13:00 MARIBELL SUN MD December 25, 2016 10:53
--- NOTE | 2016-12-25 12:25 | PN ---
Date/Time of Note Date/Time of Note DATE: 12/25/16 TIME: 12:24 Assessment/Plan VTE Prophylaxis VTE Prophylaxis Intervention: other Lines/Catheters IV Catheter Type (from [facility] PICC Line Central line still needed: Yes Urinary Cath still in place: Yes Reason Cath still needed: skin wounds contaminated by urine Assessment/Plan Chief Complaint/Hosp Course - Partial small bowel obstruction, resolved. No obstruction per upper GI series. Advance NG tube feeding per surgery. Dr. Teran is following patient in general surgery consultation. - Hypertension. Continue hydralazine. - S/p upper gastrointestinal bleed. Continue Protonix. Dr. Pryor is following in gastric gastroenterology consultation. - S/p sepsis secondary to healthcare acquired pneumonia. - Healthcare facility-acquired pneumonia. Continue antibiotics. Dr. Tang is following in infection disease consultation. - UTI.S/p treatment. 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 - Ventilator dependent respiratory failure with tracheostomy. Dr. Saenz is following in pulmonology consultation. - Chronic obstructive pulmonary disease. Continue breathing treatment. - Dysphagia. -Chronic Chaudhari catheter. -Colostomy -Bedbound status. Problems: Subjective 24 Hr Interval Summary Free Text/Dictation Patient has no complaints Exam/Review of Systems Vital Signs Vitals Vital Signs Date Time Temp Pulse Resp B/P Pulse Ox O2 Delivery O2 Flow Rate FiO2 12/25/16 11:52 77 20 99 30 12/25/16 11:41 97.8 154/77 12/23/16 01:23 Mechanical Ventilator Intake and Output 12/24/16 12/24/16 12/25/16 15:00 23:00 07:00 Intake Total 720 ml 1570 ml Output Total 2000 ml 1050 ml Balance -1280 ml 520 ml Exam Constitutional: well developed Head: atraumatic, normocephalic Neck: supple Cardiovascular: regular rate and rhythm Gastrointestinal: non-tender, soft Extremities: normal pulses Results Result Diagram: 12/24/16 0633 12/25/16 0615 Results 24 hrs Laboratory Tests Test 12/25/16 06:15 Sodium Level 135 Potassium Level 4.1 Chloride Level 103 Carbon Dioxide Level 28 Anion Gap 8 Blood Urea Nitrogen 19 Creatinine 0.86 Glucose Level 104 Calcium Level 8.8 Medications Medications Current Medications Pantoprazole (Protonix Iv) 40 mg BID@,18 IV Last administered on 12/25/16 06 :11; Admin Dose 40 MG; Start 12/09/16 at 06:00 Acetaminophen (Tylenol Supp) 650 mg Q4H PRN [place] PAIN OR TEMP ABOVE 38C; Start at 20:30 Morphine Sulfate (morphine) 2 mg Q4H PRN IV PAIN; Start 12/08/16 at 20:30 Collagenase (Santyl) 1 applic DAILY TOP Last administered on 12/25/16 09:38; Admin Dose 1 APPLIC; Start 12/09/16 at 09:00 Collagenase (Santyl) 1 applic PRN PRN TOP SOILED OR DISLODGED DRESSING; Start 12/09/16 at 04:30 Diazepam (Valium) 5 mg Q12H PRN IV ANXIETY Last administered on 12/09/16 23:41 ; Admin Dose 5 MG; Start 12/09/16 at 23:00 Ondansetron HCl (Zofran Inj) 4 mg Q4H PRN IV NAUSEA AND/OR VOMITING Last administered on 12/16/16 09:37; Admin Dose 4 MG; Start 12/10/16 at 17:00 Metoprolol Tartrate (Lopressor) 5 mg Q6H PRN IV SBP >160 or HR > 120 Last administered on 12/10/16 23:14; Admin Dose 5 MG; Start 12/10/16 at 17:00 Hydralazine HCl (Apresoline) 20 mg Q6H PRN IV SBP > 160 Last administered on 06:12; Admin Dose 20 MG; Start 12/10/16 at 17:00 IV Flush 10 ml 10 ml PRN PRN IV IV PROTOCOL; Start 12/15/16 at 15:30 Fat Emulsion Intravenous 250 ml @ 20.833 mls/ hr Q24H IV Last administered on 12/24/16 22:46; Admin Dose 20.833 MLS/HR; Start 12/15/16 at 21:00 Total Parenteral Nutrition (Tpn) 1,000 ml @ 60 mls/hr [id number] IV Last administered on 12/24/16 22:44; Admin Dose 60 MLS/HR; Start 12/15/16 at 21:00; Status Future hold IV Flush (NS 10 ml) 10 ml PRN PRN IV IV PROTOCOL; Start 12/16/16 at 18:00 Mineral Oil (Mineral Oil) 30 ml DAILY NGT Last administered on 12/25/16 09:38 ; Admin Dose 30 ML; Start 12/24/16 at 09:00 Metoclopramide HCl (Reglan) 10 mg Q12 IV Last administered on 12/25/16 09:38; Admin Dose 10 MG; Start 12/24/16 at 13:00 OLI ZUNIGA December 25, 2016 12:25
[2016-12-25] MEDS: TPN 1,000 ML IV SCH (15:27)
[2016-12-25] MEDS: POLYETHYLENE GLYCOL 17 GM PACKET NGT SCH (15:28)
--- NOTE | 2016-12-25 16:10 | PN ---
DATE: 12/25/2016 SUBJECTIVE: No communication because the patient is not verbal. The patient is on ventilator. OBJECTIVE: VITAL SIGNS: Temperature 97.8, heart rate 74, respirations 20, blood pressure 154/77, saturation 98 % on FIO2 30% with ventilator. LABORATORY DATA: BUN, creatinine, sodium, potassium, calcium within normal limits. The patient's e yes were closed and no verbal communication. ABDOMEN: Flat. Soft. Colostomy bag has minimal amount of liquid yellowish stool, like 5 or 10 mL. The patient has been started on tube feeding as of yesterday 50 mL per hour. ASSESSMENT AND PLAN: In regard to the GI dysfunction, we should continue tube feeding and also to fa cilitate bowel movement, I am going to start patient on MiraLax 17 grams dissolved in 100 mL of wate r per day through NG tube for 7 days to see the effect of it. In any case, when the patient leaves the hospital, if anything, he should have some help like stool softeners or other laxatives so that he is not going to develop a fecal impaction in the colon as he had in this admission. Other medica l problems are being addressed by other colleagues. Dictated By: VANIA PINEDA/MACK Conf#: [id number] DID#: [id number]
--- NOTE | 2016-12-25 16:56 | CONS ---
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 the wound culture grew carbapenemase producing kleb, enterococci and pseudo - Dysphagia s/p EGD and new G tube placement 09/15/2016 - h/o infection of wound of RLE due to pseudomonas. 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/11/2016 - possible recurrent SBO per CT on 12/10/2016 - ileus - recurrent leukocytosis likely reactive from multiple emesis on 12/10/2016 & (remains afebrile) - MRSA nasal colonization - treated with Mupirocin 12/12/2016-12/22/2016 - Note: S/p tobramycin (12/12/2016-12/18/2016) for pseudomonas and acinetobacter, Cefepime (12/12/2016-12/21/2016) for KPC in sputum, and Linezolid (12/12/2016-2016) for MRSA Recommendations: - monitor off abx - continue local wound care - contact isolation Management d/w [facility] Mccrary and Dr. Tang Problems: Consultation Date/Type/Reason Admit Date/Time December 08, 2016 at 12:01 Initial Consult Date 12/09/16 Type of Consultation: Infectious Disease Referring Provider: MARLA AKBAR MD 24 HR Interval Summary Free Text/Dictation On progressive NGT feeding trial with free water (currently 50cc/hr) and receiving Miralax per d/w nursing staff. No acute issues. Subjective hx not possible: pt non-verbal Exam/Review of Systems Vital Signs Vitals Vital Signs Date Time Temp Pulse Resp B/P Pulse Ox O2 Delivery O2 Flow Rate FiO2 12/25/16 16:15 72 12/25/16 15:44 97.9 16 147/73 97 12/25/16 15:16 30 12/23/16 01:23 Mechanical Ventilator Intake and Output 12/24/16 12/24/16 12/25/16 15:00 23:00 07:00 Intake Total 720 ml 1570 ml Output Total 2000 ml 1050 ml Balance -1280 ml 520 ml Exam Constitutional: frail, non-verbal, other (chronically debilitated) Head: normocephalic Eyes: nl sclera Neck: other (trach with vent) Respiratory: diminished breath sounds Cardiovascular: regular rate and rhythm Gastrointestinal: bowel sounds (present), other (NGT is with feed/water; ostomy bag over old GT site - bag currently empty, LLQ colostomy intact, stoma pink, with small amount yellowish liquid stool), soft, mildly distended Genitourinary - Male: other (vincent cath present) Extremities: other (contracted). Bilateral foot drop noted. RUE PICC with no e/ o infection. Skin: other (wounds- see nurse notes for details) Results Result Diagram: 12/24/16 0633 12/25/16 0615 Results 24 hrs Laboratory Tests Test 12/25/16 06:15 Sodium Level 135 Potassium Level 4.1 Chloride Level 103 Carbon Dioxide Level 28 Anion Gap 8 Blood Urea Nitrogen 19 Creatinine 0.86 Glucose Level 104 Calcium Level 8.8 Medications Medications Current Medications Pantoprazole (Protonix Iv) 40 mg BID@06,18 IV Last administered on 12/25/16t 06 :11; Admin Dose 40 MG; Start 12/09/16 at 06:00 Acetaminophen (Tylenol Supp) 650 mg Q4H PRN [place] PAIN OR TEMP ABOVE 38C; Start at 20:30 Morphine Sulfate (morphine) 2 mg Q4H PRN IV PAIN; Start 12/08/16 at 20:30 Collagenase (Santyl) 1 applic DAILY TOP Last administered on 12/25/16 09:38; Admin Dose 1 APPLIC; Start 12/09/16 at 09:00 Collagenase (Santyl) 1 applic PRN PRN TOP SOILED OR DISLODGED DRESSING; Start 12/09/16 at 04:30 Diazepam (Valium) 5 mg Q12H PRN IV ANXIETY Last administered on 12/09/16 23:41 ; Admin Dose 5 MG; Start 12/09/16 at 23:00 Ondansetron HCl (Zofran Inj) 4 mg Q4H PRN IV NAUSEA AND/OR VOMITING Last administered on 12/16/16 09:37; Admin Dose 4 MG; Start 12/10/16 at 17:00 Metoprolol Tartrate (Lopressor) 5 mg Q6H PRN IV SBP >160 or HR > 120 Last administered on 12/10/16 23:14; Admin Dose 5 MG; Start 12/10/16 at 17:00 Hydralazine HCl (Apresoline) 20 mg Q6H PRN IV SBP > 160 Last administered on 06:12; Admin Dose 20 MG; Start 12/10/16 at 17:00 IV Flush 10 ml 10 ml PRN PRN IV IV PROTOCOL; Start 12/15/16 at 15:30 Fat Emulsion Intravenous 250 ml @ 20.833 mls/ hr Q24H IV Last administered on 12/24/16 22:46; Admin Dose 20.833 MLS/HR; Start 12/15/16 at 21:00 Total Parenteral Nutrition (Tpn) 1,000 ml @ 60 mls/hr [id number] IV Last administered on 12/25/16 15:27; Admin Dose 60 MLS/HR; Start 12/15/16 at 21:00; Status Future hold IV Flush (NS 10 ml) 10 ml PRN PRN IV IV PROTOCOL; Start 12/16/16 at 18:00 Mineral Oil (Mineral Oil) 30 ml DAILY NGT Last administered on 12/25/16 09:38 ; Admin Dose 30 ML; Start 12/24/16 at 09:00 Metoclopramide HCl (Reglan) 10 mg Q12 IV Last administered on 12/25/16 09:38; Admin Dose 10 MG; Start 12/24/16 at 13:00 Polyethylene Glycol (Miralax) 17 gm DAILY NGT Last administered on 12/25/16 15 :28; Admin Dose 17 GM; Start 12/25/16 at 15:00; Stop 12/31/16 at 23:00 KO LOVING NP December 25, 2016 16:56
[2016-12-25] MEDS: FAT EMULSION 20% 250 ML IV SCH (21:05)
[2016-12-26] VITALS (25 sets, daily range): BP systolic 125–147; BP diastolic 65–86; PULSE 85–110; RESP 16–24
[2016-12-26] MEDS: ALBUTEROL 18 GM INHALER INH SCH ×4 (01:47→20:26)
[2016-12-26] MEDS: IPRATROPIUM (HFA) 12.9 GM INHALER INH SCH ×4 (01:47→20:26)
[2016-12-26] MEDS: PANTOPRAZOLE 40 MG INJ IV SCH ×2 (05:50→17:42)
[2016-12-26 06:45] LABS: POTASSIUM 4.4 mmol/L (3.5-5.1)
[2016-12-26 06:47] LABS: CREATININE 0.83 mg/dl (0.61-1.24)
[2016-12-26 06:48] LABS: CALCIUM 8.6 mg/dl (8.4-10.2); MAGNESIUM 1.8 mg/dl (1.7-2.5); PHOSPHORUS 3.8 mg/dl (2.5-4.9)
[2016-12-26] MEDS: TPN 1,000 ML IV SCH ×2 (07:01→23:41)
[2016-12-26] MEDS: POLYETHYLENE GLYCOL 17 GM PACKET NGT SCH (08:04)
[2016-12-26] MEDS: MINERAL OIL 30ML CUP NGT SCH (08:04)
[2016-12-26] MEDS: METOCLOPRAMIDE 10 MG INJ IV SCH ×2 (08:04→21:00)
[2016-12-26] MEDS: COLLAGENASE 30 GM TUBE TOP SCH ×2 (08:04)
--- NOTE | 2016-12-26 12:51 | PN ---
Date/Time of Note Date/Time of Note DATE: 12/26/16 TIME: 12:50 Assessment/Plan VTE Prophylaxis VTE Prophylaxis Intervention: other Lines/Catheters IV Catheter Type (from Nrs): PICC Line Central line still needed: Yes Urinary Cath still in place: Yes Reason Cath still needed: skin wounds contaminated by urine Assessment/Plan Chief Complaint/Hosp Course - Partial small bowel obstruction, resolved. No obstruction per upper GI series. Advance NG tube feeding per surgery. Dr. Teran is following patient in general surgery consultation. - Hypertension. Continue hydralazine. - S/p upper gastrointestinal bleed. Continue Protonix. Dr. Pryor is following in gastric gastroenterology consultation. - S/p sepsis secondary to healthcare acquired pneumonia. - Healthcare facility-acquired pneumonia. Continue antibiotics. Dr. Tang is following in infection disease consultation. - UTI.S/p treatment. 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 - Ventilator dependent respiratory failure with tracheostomy. Dr. Saenz is following in pulmonology consultation. - Chronic obstructive pulmonary disease. Continue breathing treatment. - Dysphagia. -Chronic Chaudhari catheter. -Colostomy -Bedbound status. Problems: Subjective 24 Hr Interval Summary Free Text/Dictation Patient doing well, trach in place Exam/Review of Systems Vital Signs Vitals Vital Signs Date Time Temp Pulse Resp B/P Pulse Ox O2 Delivery O2 Flow Rate FiO2 12/26/16 12:09 98.6 84 16 141/65 95 12/26/16 11:18 30 12/23/16 01:23 Mechanical Ventilator Intake and Output 12/25/16 12/25/16 12/26/16 15:00 23:00 07:00 Intake Total 1160 ml 1577.47 ml Output Total 800 ml 1220 ml Balance 360 ml 357.47 ml Exam Constitutional: well developed Head: atraumatic, normocephalic Neck: supple Respiratory: clear to auscultation Cardiovascular: regular rate and rhythm Gastrointestinal: non-tender, soft Extremities: normal pulses Results Result Diagram: 12/24/16 0633 12/26/16 0535 Results 24 hrs Laboratory Tests Test 12/26/16 05:35 Sodium Level 139 Potassium Level 4.4 Chloride Level 107 Carbon Dioxide Level 28 Anion Gap 8 Blood Urea Nitrogen 22 H Creatinine 0.83 Glucose Level 111 Calcium Level 8.6 Phosphorus Level 3.8 Magnesium Level 1.8 Medications Medications Current Medications Pantoprazole (Protonix Iv) 40 mg BID@06,18 IV Last administered on 12/26/16 05 :50; Admin Dose 40 MG; Start 12/09/16 at 06:00 Acetaminophen (Tylenol Supp) 650 mg Q4H PRN [place] PAIN OR TEMP ABOVE 38C; Start at 20:30 Morphine Sulfate (morphine) 2 mg Q4H PRN IV PAIN; Start 12/08/16 at 20:30 Collagenase (Santyl) 1 applic DAILY TOP Last administered on 12/26/16 08:04; Admin Dose 1 APPLIC; Start 12/09/16 at 09:00 Collagenase (Santyl) 1 applic PRN PRN TOP SOILED OR DISLODGED DRESSING; Start 12/09/16 at 04:30 Diazepam (Valium) 5 mg Q12H PRN IV ANXIETY Last administered on 12/09/16 23:41 ; Admin Dose 5 MG; Start 12/09/16 at 23:00 Ondansetron HCl (Zofran Inj) 4 mg Q4H PRN IV NAUSEA AND/OR VOMITING Last administered on 12/16/16 09:37; Admin Dose 4 MG; Start 12/10/16 at 17:00 Metoprolol Tartrate (Lopressor) 5 mg Q6H PRN IV SBP >160 or HR > 120 Last administered on 12/10/16 23:14; Admin Dose 5 MG; Start 12/10/16 at 17:00 Hydralazine HCl (Apresoline) 20 mg Q6H PRN IV SBP > 160 Last administered on 06:12; Admin Dose 20 MG; Start 12/10/16 at 17:00 IV Flush 10 ml 10 ml PRN PRN IV IV PROTOCOL; Start 12/15/16 at 15:30 Fat Emulsion Intravenous 250 ml @ 20.833 mls/ hr Q24H IV Last administered on 12/25/16 21:05; Admin Dose 20.833 MLS/HR; Start 12/15/16 at 21:00 Total Parenteral Nutrition (Tpn) 1,000 ml @ 60 mls/hr [id number] IV Last administered on 12/26/16 07:01; Admin Dose 60 MLS/HR; Start 12/15/16 at 21:00; Status Future hold IV Flush (NS 10 ml) 10 ml PRN PRN IV IV PROTOCOL; Start 12/16/16 at 18:00 Mineral Oil (Mineral Oil) 30 ml DAILY NGT Last administered on 12/26/16 08:04 ; Admin Dose 30 ML; Start 12/24/16 at 09:00 Metoclopramide HCl (Reglan) 10 mg Q12 IV Last administered on 12/26/16 08:04; Admin Dose 10 MG; Start 12/24/16 at 13:00 Polyethylene Glycol (Miralax) 17 gm DAILY NGT Last administered on 12/26/16 08 :04; Admin Dose 17 GM; Start 12/25/16 at 15:00; Stop 12/31/16 at 23:00 OLI ZUNIGA December 26, 2016 12:51
--- NOTE | 2016-12-26 14:49 | PN ---
DATE: 12/26/2016 SUBJECTIVE: No complaint actually. The patient is nonverbal. He is on ventilator through tracheos cheo. OBJECTIVE: VITAL SIGNS: Temperature 98.6, heart rate 84, respirations 16, blood pressure 141/65, saturation 95 % . Patient is on ventilator with FIO2 of 30%. ABDOMEN: Mildly distended. Bowel sound is present. No fluid in the bag over the site of previous G-tube. Also, a colostomy bag has minimal air and minimal fluid, which was there since yesterday. No new bowel movement in past at least 48 hours. Patient has been started on tube feeding 50 mL per hour with interval flushing with some water. There are no new labs drawn today. The surgeon has seen the patient for a possible small-bowel obstruction, which proved the patient wa s not obstructed by different modalities, including small-bowel series. It showed the presence of c ontrast material in the colon after 4 hours. The problem was that the patient has a lot of hard sto ol in the transverse colon and that could have backed up into the small-bowel, causing dilatation. We tried to get rid of the hard stool, and it was partially successful, but still there is some hard stool in the colon. I am not sure what is the cause of this, but probably it is narrowing of the c olostomy area or at the level of the fascia does not let the hard pieces of the stool pass through. I am going to continue mineral oil and see what is going to work on the patient. We will start the patient on Reglan 10 mg IV b.i.d. We may have to give more laxative. Other medical problems are b eing addressed by other consultants. Dictated By: VANIA MAE MD PS/NTS Conf#: [id number] DID#: [id number]
[2016-12-26] MEDS: FAT EMULSION 20% 250 ML IV SCH (21:00)
[2016-12-27] VITALS (23 sets, daily range): BP systolic 108–138; BP diastolic 52–82; PULSE 69–122; RESP 18–26
[2016-12-27] MEDS: IPRATROPIUM (HFA) 12.9 GM INHALER INH SCH ×4 (01:47→19:43)
[2016-12-27] MEDS: ALBUTEROL 18 GM INHALER INH SCH ×4 (01:47→19:43)
[2016-12-27] MEDS: PANTOPRAZOLE 40 MG INJ IV SCH ×2 (05:46→18:25)
[2016-12-27 06:40] LABS: ADD SCAN DIFF NO
[2016-12-27 06:54] LABS: ABNORMAL IP MESSAGE 1; BASOPHILS % 0.3 % (0.0-2.0); EOSINOPHILS # 0.4 10^3/ul (0.0-0.5); EOSINOPHILS % 2.9 % (0.0-7.0); HEMATOCRIT 27.4 % (42.0-52.0); HEMOGLOBIN 9.2 g/dl (14.0-18.0); LYMPHOCYTES % 13.7 % (15.0-51.0); MEAN CORPUSCULAR HEMOGLOBIN 28.8 pg (29.0-33.0); MEAN CORPUSCULAR HGB CONC 33.6 g/dl (32.0-37.0); MEAN CORPUSCULAR VOLUME 85.9 fl (82.0-101.0); MONOCYTE # 2.1 10^3/ul (0.3-0.9); MONOCYTES % 14.1 % (0.0-11.0); NEUTROPHIL # 9.9 10^3/ul (1.6-7.5); NEUTROPHILS % 68.6 % (39.0-77.0); NUCLEATED RED BLOOD CELLS # 0.1 10^3/ul (0.0-0.0); NUCLEATED RED BLOOD CELLS% 0.7 /100WBC (0.0-0.0); PLATELET COUNT 117 10^3/UL (140-415); RED BLOOD COUNT 3.19 10^6/ul (4.70-6.10); RED CELL DISTRIBUTION WIDTH 16.6 % (11.5-14.5); WHITE BLOOD COUNT 14.5 10^3/ul (4.8-10.8)
[2016-12-27 07:31] LABS: CALCIUM 8.6 mg/dl (8.4-10.2); CREATININE 0.89 mg/dl (0.61-1.24)
[2016-12-27] MEDS: MINERAL OIL 30ML CUP NGT SCH (09:40)
[2016-12-27] MEDS: POLYETHYLENE GLYCOL 17 GM PACKET NGT SCH (09:40)
[2016-12-27] MEDS: METOCLOPRAMIDE 10 MG INJ IV SCH ×2 (09:40→21:28)
--- NOTE | 2016-12-27 10:19 | PN ---
Date/Time of Note Date/Time of Note DATE: 12/27/16 TIME: 10:18 Assessment/Plan VTE Prophylaxis VTE Prophylaxis Intervention: other Lines/Catheters IV [facility] Type ([facility] PICC Line Central line still needed: Yes Urinary Cath still in place: Yes Reason Cath still needed: skin wounds contaminated by urine Assessment/Plan Chief Complaint/Hosp Course - Partial small bowel obstruction, resolved. No obstruction per upper GI series. Advance NG tube feeding per surgery. Dr. Teran is following patient in general surgery consultation. - Hypertension. Continue hydralazine. - S/p upper gastrointestinal bleed. Continue Protonix. Dr. Pryor is following in gastric gastroenterology consultation. - S/p sepsis secondary to healthcare acquired pneumonia. - Healthcare facility-acquired pneumonia. Continue antibiotics. Dr. Tang is following in infection disease consultation. - UTI.S/p treatment. 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 - Ventilator dependent respiratory failure with tracheostomy. Dr. Saenz is following in pulmonology consultation. - Chronic obstructive pulmonary disease. Continue breathing treatment. - Dysphagia. -Chronic Chaudhari catheter. -Colostomy -Bedbound status. Problems: Subjective 24 Hr Interval Summary Free Text/Dictation Patient appears comfortable, trach in place Exam/Review of Systems Vital Signs Vitals Vital Signs Date Time Temp Pulse Resp B/P Pulse Ox O2 Delivery O2 Flow Rate FiO2 12/27/16 09:15 100 22 98 30 12/27/16 08:07 98.0 137/82 Intake and Output 12/26/16 12/26/16 12/27/16 15:00 23:00 07:00 Intake Total 750 ml 1769.163 ml Output Total 800 ml Balance -50 ml 1769.163 ml Exam Constitutional: well developed Head: atraumatic, normocephalic Neck: supple Respiratory: diminished breath sounds Cardiovascular: regular rate and rhythm Gastrointestinal: non-tender, soft Extremities: normal pulses Results Result Diagram: 12/27/16 0600 12/27/16 0600 Results 24 hrs Laboratory Tests Test 12/27/16 06:00 White Blood Count 14.5 #H Red Blood Count 3.19 L Hemoglobin 9.2 L Hematocrit 27.4 L Mean Corpuscular Volume 85.9 Mean Corpuscular Hemoglobin 28.8 L Mean Corpuscular Hemoglobin Concent 33.6 Red Cell Distribution Width 16.6 H Platelet Count 117 L Mean Platelet Volume Neutrophils % 68.6 Lymphocytes % 13.7 L Monocytes % 14.1 H Eosinophils % 2.9 Basophils % 0.3 Nucleated Red Blood Cells % 0.7 H Neutrophils # 9.9 H Lymphocytes # 2.0 Monocytes # 2.1 H Eosinophils # 0.4 Basophils # 0.0 Nucleated Red Blood Cells # 0.1 H Sodium Level 136 Potassium Level 5.0 Chloride Level 100 Carbon Dioxide Level 26 Anion Gap 15 # Blood Urea Nitrogen 26 H Creatinine 0.89 Glucose Level 110 Calcium Level 8.6 Medications Medications Current Medications Pantoprazole (Protonix Iv) 40 mg BID@,18 IV Last administered on 12/27/16 05 :46; Admin Dose 40 MG; Start 12/09/16 at 06:00 Acetaminophen (Tylenol Supp) 650 mg Q4H PRN [place] PAIN OR TEMP ABOVE 38C; Start at 20:30 Morphine Sulfate (morphine) 2 mg Q4H PRN IV PAIN; Start 12/08/16 at 20:30 Collagenase (Santyl) 1 applic DAILY TOP Last administered on 12/26/16 00:00; Admin Dose 1 APPLIC; Start 12/09/16 at 09:00 Collagenase (Santyl) 1 applic PRN PRN TOP SOILED OR DISLODGED DRESSING; Start 12/09/16 at 04:30 Diazepam (Valium) 5 mg Q12H PRN IV ANXIETY Last administered on 12/09/16 23:41 ; Admin Dose 5 MG; Start 12/09/16 at 23:00 Ondansetron HCl (Zofran Inj) 4 mg Q4H PRN IV NAUSEA AND/OR VOMITING Last administered on 12/16/16 09:37; Admin Dose 4 MG; Start 12/10/16 at 17:00 Metoprolol Tartrate (Lopressor) 5 mg Q6H PRN IV SBP >160 or HR > 120 Last administered on 12/10/16 23:14; Admin Dose 5 MG; Start 12/10/16 at 17:00 Hydralazine HCl (Apresoline) 20 mg Q6H PRN IV SBP > 160 Last administered on 06:12; Admin Dose 20 MG; Start 12/10/16 at 17:00 IV Flush 10 ml 10 ml PRN PRN IV IV PROTOCOL; Start 12/15/16 at 15:30 Fat Emulsion Intravenous 250 ml @ 20.833 mls/ hr Q24H IV Last administered on 12/26/16 21:00; Admin Dose 20.833 MLS/HR; Start 12/15/16 at 21:00 Total Parenteral Nutrition (Tpn) 1,000 ml @ 60 mls/hr [id number] IV Last administered on 12/26/16 23:41; Admin Dose 60 MLS/HR; Start 12/15/16 at 21:00; Status Future hold IV Flush (NS 10 ml) 10 ml PRN PRN IV IV PROTOCOL; Start 12/16/16 at 18:00 Mineral Oil (Mineral Oil) 30 ml DAILY NGT Last administered on 12/27/16 09:40 ; Admin Dose 30 ML; Start 12/24/16 at 09:00 Metoclopramide HCl (Reglan) 10 mg Q12 IV Last administered on 12/27/16 09:40; Admin Dose 10 MG; Start 12/24/16 at 13:00 Polyethylene Glycol (Miralax) 17 gm DAILY NGT Last administered on 12/27/16 09 :40; Admin Dose 17 GM; Start 12/25/16 at 15:00; Stop 12/31/16 at 23:00 OLI ZUNIGA December 27, 2016 10:19
[2016-12-27] MEDS: TPN 1,000 ML IV SCH (16:57)
--- NOTE | 2016-12-27 17:04 | CONS ---
Date/Time of Note Date/Time of Note DATE: 12/27/16 TIME: 17:01 Assessment/Plan Assessment/Plan Additional Assessment/Plan - severe sepsis due to HCAP - HCAP/VAP due to kleb (KPC) and pseudo - UTI due to acineto and pseudo related to chronic indwelling Chaudhari - multiple pressure ulcer - recurrent infection of ulcer of RLE due to MRSA and pseudo. 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 the wound culture grew carbapenemase producing kleb, enterococci and pseudo - Dysphagia s/p EGD and new G tube placement 09/15/2016 - h/o infection of wound of RLE due to pseudomonas. 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/11/2016 - possible recurrent SBO per CT on 12/10/2016 - ileus - recurrent leukocytosis likely reactive from multiple emesis on 12/10/2016 & (remains afebrile) - MRSA nasal colonization - treated with Mupirocin 12/12/2016-12/22/2016 - Note: S/p tobramycin (12/12/2016-12/18/2016) for pseudomonas and acinetobacter, Cefepime (12/12/2016-12/21/2016) for KPC in sputum, and Linezolid (12/12/2016-2016) for MRSA Recommendations: - for eleated WBC-will do blood c/s, CXR, URINE c/s- to fu - monitor off abx - continue local wound care - contact isolation Management d/w RN and Dr. Tang Consultation Date/Type/Reason Admit Date/Time December 08, 2016 at 12:01 Initial Consult Date 12/10/16 Type of Consultation: Infectious Disease Referring Provider: MARLA AKBAR MD 24 HR Interval Summary Free Text/Dictation resting, afebrile, wbc elevated- will do blood c/s, cxr. urine c/s - to fu, dw staff Subjective hx not possible: pt non-verbal Constitutional: requiring IVF, requiring O2 Exam/Review of Systems Vital Signs Vitals Vital Signs Date Time Temp Pulse Resp B/P Pulse Ox O2 Delivery O2 Flow Rate FiO2 12/27/16 16:20 87 12/27/16 15:26 98.2 19 108/52 97 12/27/16 15:15 30 Intake and Output 12/26/16 12/26/16 12/27/16 15:00 23:00 07:00 Intake Total 750 ml 1769.163 ml Output Total 800 ml Balance -50 ml 1769.163 ml Exam Constitutional: frail, non-verbal Eyes: nl sclera Neck: non-tender Respiratory: diminished breath sounds Cardiovascular: nl pulses, regular rate and rhythm Gastrointestinal: non-tender, other (bowel sounds (present), other (NGT is with feed/water; ostomy bag over old GT site - bag currently empty, LLQ colostomy intact, stoma pink, with small amount yellowish liquid stool), soft, mildly distended), soft Genitourinary - Male: other (FC- yellow , clear urine) Musculoskeletal: muscle weakness, other ( Bilateral foot drop/ contractures noted. RUE PICC with no e/o infection) Neurological: unresponsive Lymph: nontender Results Result Diagram: 12/27/16 0600 12/27/16 0600 Results 24 hrs Laboratory Tests Test 12/27/16 06:00 White Blood Count 14.5 #H Red Blood Count 3.19 L Hemoglobin 9.2 L Hematocrit 27.4 L Mean Corpuscular Volume 85.9 Mean Corpuscular Hemoglobin 28.8 L Mean Corpuscular Hemoglobin Concent 33.6 Red Cell Distribution Width 16.6 H Platelet Count 117 L Mean Platelet Volume Neutrophils % 68.6 Lymphocytes % 13.7 L Monocytes % 14.1 H Eosinophils % 2.9 Basophils % 0.3 Nucleated Red Blood Cells % 0.7 H Neutrophils # 9.9 H Lymphocytes # 2.0 Monocytes # 2.1 H Eosinophils # 0.4 Basophils # 0.0 Nucleated Red Blood Cells # 0.1 H Sodium Level 136 Potassium Level 5.0 Chloride Level 100 Carbon Dioxide Level 26 Anion Gap 15 # Blood Urea Nitrogen 26 H Creatinine 0.89 Glucose Level 110 Calcium Level 8.6 Medications Medications Current Medications Pantoprazole (Protonix Iv) 40 mg BID@06,18 IV Last administered on 12/27/16 05 :46; Admin Dose 40 MG; Start 12/09/16 at 06:00 Acetaminophen (Tylenol Supp) 650 mg Q4H PRN [place] PAIN OR TEMP ABOVE 38C; Start at 20:30 Morphine Sulfate (morphine) 2 mg Q4H PRN IV PAIN; Start 12/08/16 at 20:30 Collagenase (Santyl) 1 applic DAILY TOP Last administered on 12/26/16 00:00; Admin Dose 1 APPLIC; Start 12/09/16 at 09:00 Collagenase (Santyl) 1 applic PRN PRN TOP SOILED OR DISLODGED DRESSING; Start 12/09/16 at 04:30 Diazepam (Valium) 5 mg Q12H PRN IV ANXIETY Last administered on 12/09/16 23:41 ; Admin Dose 5 MG; Start 12/09/16 at 23:00 Ondansetron HCl (Zofran Inj) 4 mg Q4H PRN IV NAUSEA AND/OR VOMITING Last administered on 12/16/16 09:37; Admin Dose 4 MG; Start 12/10/16 at 17:00 Metoprolol Tartrate (Lopressor) 5 mg Q6H PRN IV SBP >160 or HR > 120 Last administered on 12/10/16 23:14; Admin Dose 5 MG; Start 12/10/16 at 17:00 Hydralazine HCl (Apresoline) 20 mg Q6H PRN IV SBP > 160 Last administered on 06:12; Admin Dose 20 MG; Start 12/10/16 at 17:00 IV Flush 10 ml 10 ml PRN PRN IV IV PROTOCOL; Start 12/15/16 at 15:30 Fat Emulsion Intravenous 250 ml @ 20.833 mls/ hr Q24H IV Last administered on 12/26/16 21:00; Admin Dose 20.833 MLS/HR; Start 12/15/16 at 21:00 Total Parenteral Nutrition (Tpn) 1,000 ml @ 60 mls/hr [id number] IV Last administered on 12/27/16 16:57; Admin Dose 60 MLS/HR; Start 12/15/16 at 21:00; Status Future hold IV Flush (NS 10 ml) 10 ml PRN PRN IV IV PROTOCOL; Start 12/16/16 at 18:00 Mineral Oil (Mineral Oil) 30 ml DAILY NGT Last administered on 12/27/16 09:40 ; Admin Dose 30 ML; Start 12/24/16 at 09:00 Metoclopramide HCl (Reglan) 10 mg Q12 IV Last administered on 12/27/16 09:40; Admin Dose 10 MG; Start 12/24/16 at 13:00 Polyethylene Glycol (Miralax) 17 gm DAILY NGT Last administered on 12/27/16 09 :40; Admin Dose 17 GM; Start 12/25/16 at 15:00; Stop 12/31/16 at 23:00 MARIO ROWE December 27, 2016 17:04
--- NOTE | 2016-12-27 18:26 | RADRPT ---
PROCEDURE: XR Chest. CLINICAL INDICATION: Respiratory distress. TECHNIQUE: AP view of the chest was performed. COMPARISON: December 16, 2016 FINDINGS: The tracheostomy tube, right PICC line, and NG tube remain in good positioning. The heart size is s table. There is persistent bibasilar atelectasis with improved lung volumes. There are no findings of fluid overload. No pneumothorax or pleural effusion. IMPRESSION: Support lines and tubes in good positioning. Improved lung volumes with persistent bibasilar atelec tasis. No findings of fluid overload. RPTAT: QQ. .Emma Barajas MD, MD Date Time Electronically viewed and signed by .Emma Barajas MD, on 12/27/2016 18:26 .F/
--- NOTE | 2016-12-27 18:34 | PN ---
DATE: 12/27/2016 SUBJECTIVE: No communication, nonresponsive, eyes closed on ventilator. OBJECTIVE: GENERAL: Patient is in a semi-sitting position on the ventilator through tracheostomy. VITAL SIGNS: Temperature 98.2. Earlier today, it was 98.7, heart rate was 102 today hand kiss setter and now it is 85 and regular. Blood pressure 108/52, saturation 97% on ventilator with FIO2 of 30%. LABORATORY DATA: WBC has increased today to 14,500. It used to be 4000 and 3000 before with 58% s egmented, which is normal differential. Hemoglobin 9.2, hematocrit 27.4. Chemistry: BUN and creat inine normal. Sodium normal, potassium 5. Nasogastric tube in place tube. Tube feeding is running through the NG tube, 50 mL per hour. Harsh breathing sound on the bases. HEART: Regular heart rate. . ABDOMEN: Minimally distended, soft. Bowel sounds are normal to slightly hyperactive. No rigidity. LOWER EXTREMITIES: No swelling. No pitting edema. EXTREMITIES: No calf tenderness or cords could be detected. ASSESSMENT: Patient with ventilator dependency, uncommunicable presenting with multiple problems wi th one of them being possible obstruction, small bowel which proved to be not obstructed except for some impacted stool in the transverse colon which is slightly cleared up with multiple modalities in cluding Gastrografin small bowel series. The patient has not had any bowel movement since 3 days ag o. Today, patient's leukocyte count has increased to 14,500. Our medical colleagues have ordered b lood culture and urine culture, chest x-ray and working to find out the possible etiology of leukocy tosis. From surgical standpoint of view, we know that the patient is not obstructed, but the movement of th e content in the colon is very sluggish and possibly some problems also with the creation of the col ostomy. PLAN: Continue current care, medical management per the medical service to find out the cause of in creased leukocytosis and possible source of infection. Continue tube feeding. We will try to manip ulate and give more laxity so that she makes more bowel movement. Dictated By: VANIA MAE MD PS/NTS Conf#: [id number] DID#: [id number]
[2016-12-27] MEDS: FAT EMULSION 20% 250 ML IV SCH (21:28)
[2016-12-28] VITALS (23 sets, daily range): BP systolic 119–171; BP diastolic 64–78; PULSE 65–90; RESP 16–26
[2016-12-28] MEDS: ALBUTEROL 18 GM INHALER INH SCH ×4 (01:29→19:35)
[2016-12-28] MEDS: IPRATROPIUM (HFA) 12.9 GM INHALER INH SCH ×4 (01:29→19:36)
[2016-12-28] MEDS: PANTOPRAZOLE 40 MG INJ IV SCH ×2 (05:57→17:22)
[2016-12-28 06:51] LABS: ADD SCAN DIFF NO
[2016-12-28 07:01] LABS: BASOPHILS % 0.2 % (0.0-2.0); EOSINOPHILS # 0.7 10^3/ul (0.0-0.5); EOSINOPHILS % 7.3 % (0.0-7.0); HEMATOCRIT 27.5 % (42.0-52.0); HEMOGLOBIN 9.1 g/dl (14.0-18.0); LYMPHOCYTES % 20.1 % (15.0-51.0); MEAN CORPUSCULAR HEMOGLOBIN 29.1 pg (29.0-33.0); MEAN CORPUSCULAR HGB CONC 33.1 g/dl (32.0-37.0); MEAN CORPUSCULAR VOLUME 87.9 fl (82.0-101.0); MONOCYTE # 1.5 10^3/ul (0.3-0.9); MONOCYTES % 15.2 % (0.0-11.0); NEUTROPHIL # 5.5 10^3/ul (1.6-7.5); NEUTROPHILS % 56.8 % (39.0-77.0); NUCLEATED RED BLOOD CELLS # 0.1 10^3/ul (0.0-0.0); NUCLEATED RED BLOOD CELLS% 0.5 /100WBC (0.0-0.0); PLATELET COUNT 113 10^3/UL (140-415); RED BLOOD COUNT 3.13 10^6/ul (4.70-6.10); RED CELL DISTRIBUTION WIDTH 16.8 % (11.5-14.5); WHITE BLOOD COUNT 9.7 10^3/ul (4.8-10.8)
[2016-12-28 07:12] LABS: POTASSIUM 5.1 mmol/L (3.5-5.1)
[2016-12-28 07:15] LABS: CREATININE 0.86 mg/dl (0.61-1.24)
[2016-12-28 07:16] LABS: CALCIUM 8.7 mg/dl (8.4-10.2)
--- NOTE | 2016-12-28 08:02 | RADRPT ---
PROCEDURE: XR Abdomen. CLINICAL INDICATION: evaluation of gas pattern and residual contrast in the colon TECHNIQUE: AP abdomen x-ray. COMPARISON: None. FINDINGS: Visualization of the upper abdomen is limited due to overlying opacities. There is a nonobstructive bowel gas pattern. Air is noted in the ascending colon. There are no abnormal calcifications overlying the urinary tracts. There is decreased osseous mineralization as well as moderate to severe degenerative changes of the right greater than left hips. Severe degenerative changes of the visualized lumbar spine are noted. IMPRESSION: Nonobstructive bowel gas pattern. Decreased osseous mineralization. Moderate to severe degenerative changes of the right greater than left hip joints. RPTAT: EE Physician Akira Date Time Electronically viewed and signed by Physician Akira on 12/28/2016 08:02 /
[2016-12-28] MEDS: MINERAL OIL 30ML CUP NGT SCH ×2 (09:40→21:03)
[2016-12-28] MEDS: METOCLOPRAMIDE 10 MG INJ IV SCH ×2 (09:40→21:03)
[2016-12-28] MEDS: POLYETHYLENE GLYCOL 17 GM PACKET NGT SCH (09:40)
--- NOTE | 2016-12-28 10:43 | CONS ---
Date/Time of Note Date/Time of Note DATE: 12/26/16 TIME: 10:42 Assessment/Plan Assessment/Plan Chief Complaint/Hosp Course - severe sepsis due to HCAP - HCAP/VAP due to kleb (KPC) and pseudo - UTI due to acineto and pseudo related to chronic indwelling Chaudhari - multiple pressure ulcer - recurrent infection of ulcer of RLE due to MRSA and pseudo. 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 the wound culture grew carbapenemase producing kleb, enterococci and pseudo - Dysphagia s/p EGD and new G tube placement 09/15/2016 - h/o infection of wound of RLE due to pseudomonas. 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/11/2016 - possible recurrent SBO per CT on 12/10/2016 - ileus - recurrent leukocytosis likely reactive from multiple emesis on 12/10/2016 & (remains afebrile) - MRSA nasal colonization - treated with Mupirocin 12/12/2016-12/22/2016 - Note: S/p tobramycin (12/12/2016-12/18/2016) for pseudomonas and acinetobacter, Cefepime (12/12/2016-12/21/2016) for KPC in sputum, and Linezolid (12/12/2016-2016) for MRSA Recommendations: - monitor off abx - continue local wound care - contact isolation Problems: Consultation Date/Type/Reason Admit Date/Time December 08, 2016 at 12:01 Type of Consultation: Infectious Disease Referring Provider: MARLA AKBAR MD 24 HR Interval Summary Free Text/Dictation late entry for 12.26.16 Exam/Review of Systems Vital Signs Vitals Vital Signs Date Time Temp Pulse Resp B/P Pulse Ox O2 Delivery O2 Flow Rate FiO2 12/28/16 09:17 93 21 95 30 12/28/16 07:39 97.8 171/75 Intake and Output 12/27/16 12/27/16 12/28/16 15:00 23:00 07:00 Intake Total 750 ml 850 ml 700 ml Output Total 1550 ml 1250 ml 900 ml Balance -800 ml -400 ml -200 ml Exam Constitutional: non-verbal Eyes: EOMI Respiratory: congested cough, diminished breath sounds Cardiovascular: regular rate and rhythm Gastrointestinal: soft Results Result Diagram: 12/28/16 0603 12/28/16 0603 Results 24 hrs Laboratory Tests Test 12/27/16 17:10 12/28/16 06:03 Lactic Acid Level 0.7 White Blood Count 9.7 # Red Blood Count 3.13 L Hemoglobin 9.1 L Hematocrit 27.5 L Mean Corpuscular Volume 87.9 Mean Corpuscular Hemoglobin 29.1 Mean Corpuscular Hemoglobin Concent 33.1 Red Cell Distribution Width 16.8 H Platelet Count 113 L Mean Platelet Volume Neutrophils % 56.8 Lymphocytes % 20.1 Monocytes % 15.2 H Eosinophils % 7.3 H Basophils % 0.2 Nucleated Red Blood Cells % 0.5 H Neutrophils # 5.5 Lymphocytes # 2.0 Monocytes # 1.5 H Eosinophils # 0.7 H Basophils # 0.0 Nucleated Red Blood Cells # 0.1 H Sodium Level 137 Potassium Level 5.1 Chloride Level 105 Carbon Dioxide Level 29 Anion Gap 8 Blood Urea Nitrogen 32 H Creatinine 0.86 Glucose Level 94 Calcium Level 8.7 Medications Medications Current Medications Pantoprazole (Protonix Iv) 40 mg BID@06,18 IV Last administered on 12/28/16 05 :57; Admin Dose 40 MG; Start 12/09/16 at 06:00 Acetaminophen (Tylenol Supp) 650 mg Q4H PRN [place] PAIN OR TEMP ABOVE 38C; Start at 20:30 Morphine Sulfate (morphine) 2 mg Q4H PRN IV PAIN; Start 12/08/16 at 20:30 Collagenase (Santyl) 1 applic DAILY TOP Last administered on 12/26/16 00:00; Admin Dose 1 APPLIC; Start 12/09/16 at 09:00 Collagenase (Santyl) 1 applic PRN PRN TOP SOILED OR DISLODGED DRESSING; Start 12/09/16 at 04:30 Diazepam (Valium) 5 mg Q12H PRN IV ANXIETY Last administered on 12/09/16 23:41 ; Admin Dose 5 MG; Start 12/09/16 at 23:00 Ondansetron HCl (Zofran Inj) 4 mg Q4H PRN IV NAUSEA AND/OR VOMITING Last administered on 12/16/16 09:37; Admin Dose 4 MG; Start 12/10/16 at 17:00 Metoprolol Tartrate (Lopressor) 5 mg Q6H PRN IV SBP >160 or HR > 120 Last administered on 12/10/16 23:14; Admin Dose 5 MG; Start 12/10/16 at 17:00 Hydralazine HCl (Apresoline) 20 mg Q6H PRN IV SBP > 160 Last administered on 06:12; Admin Dose 20 MG; Start 12/10/16 at 17:00 IV Flush 10 ml 10 ml PRN PRN IV IV PROTOCOL; Start 12/15/16 at 15:30 Fat Emulsion Intravenous 250 ml @ 20.833 mls/ hr Q24H IV Last administered on 12/27/16 21:28; Admin Dose 20.833 MLS/HR; Start 12/15/16 at 21:00 Total Parenteral Nutrition (Tpn) 1,000 ml @ 60 mls/hr [id number] IV Last administered on 12/27/16 16:57; Admin Dose 60 MLS/HR; Start 12/15/16 at 21:00; Status Future hold IV Flush (NS 10 ml) 10 ml PRN PRN IV IV PROTOCOL; Start 12/16/16 at 18:00 Mineral Oil (Mineral Oil) 30 ml DAILY NGT Last administered on 12/28/16 09:40 ; Admin Dose 30 ML; Start 12/24/16 at 09:00 Metoclopramide HCl (Reglan) 10 mg Q12 IV Last administered on 12/28/16 09:40; Admin Dose 10 MG; Start 12/24/16 at 13:00 Polyethylene Glycol (Miralax) 17 gm DAILY NGT Last administered on 12/28/16 09 :40; Admin Dose 17 GM; Start 12/25/16 at 15:00; Stop 12/31/16 at 23:00 MARIBELL SUN MD December 28, 2016 10:43
--- NOTE | 2016-12-28 14:10 | CONS ---
Date/Time of Note Date/Time of Note DATE: 12/28/16 TIME: 14:08 Assessment/Plan Assessment/Plan Chief Complaint/Hosp Course - s/p severe sepsis due to HCAP - HCAP/VAP due to kleb (KPC) and pseudo - UTI due to acineto and pseudo related to chronic indwelling Chaudhari - multiple pressure ulcer - recurrent infection of ulcer of RLE due to MRSA and pseudo. 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 the wound culture grew carbapenemase producing kleb, enterococci and pseudo - Dysphagia s/p EGD and new G tube placement 09/15/2016 - h/o infection of wound of RLE due to pseudomonas. 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/11/2016 - possible recurrent SBO per CT on 12/10/2016 - ileus - recurrent leukocytosis likely reactive from multiple emesis on 12/10/2016 & (remains afebrile) - MRSA nasal colonization - treated with Mupirocin 12/12/2016-12/22/2016 - Note: S/p tobramycin (12/12/2016-12/18/2016) for pseudomonas and acinetobacter, Cefepime (12/12/2016-12/21/2016) for KPC in sputum, and Linezolid (12/12/2016-2016) for MRSA recommendations: - will monitor the results of blood cultures - continue to monitor off abx - contact isolation for MSA - droplet precautions for KPC in his resp tract management d/w Pt's RN Problems: Consultation Date/Type/Reason Admit Date/Time December 08, 2016 at 12:01 Initial Consult Date 12/10/16 Type of Consultation: Infectious Disease Referring Provider: MARLA AKBAR MD 24 HR Interval Summary Subjective hx not possible: pt non-verbal Exam/Review of Systems Vital Signs Vitals Vital Signs Date Time Temp Pulse Resp B/P Pulse Ox O2 Delivery O2 Flow Rate FiO2 12/28/16 13:36 104 22 96 30 12/28/16 11:41 97.9 119/64 Intake and Output 12/27/16 12/27/16 12/28/16 15:00 23:00 07:00 Intake Total 750 ml 850 ml 700 ml Output Total 1550 ml 1250 ml 900 ml Balance -800 ml -400 ml -200 ml Exam Constitutional: frail, non-verbal Psych: confusion Head: other (b/l temporal wasting) Eyes: nl conjunctiva ENMT: nl external ears & nose, nl nasal mucosa & septum Respiratory: diminished breath sounds Cardiovascular: nl pulses, regular rate and rhythm Gastrointestinal: other (colostomy, GT), soft Genitourinary - Male: other (FC) Musculoskeletal: No swelling Extremities: No edema Neurological: confused, lethargic Skin: laceration (L elbow and RLE) Results Result Diagram: 12/28/16 0603 12/28/16 0603 Results 24 hrs Laboratory Tests Test 12/27/16 17:10 12/28/16 06:03 Lactic Acid Level 0.7 White Blood Count 9.7 # Red Blood Count 3.13 L Hemoglobin 9.1 L Hematocrit 27.5 L Mean Corpuscular Volume 87.9 Mean Corpuscular Hemoglobin 29.1 Mean Corpuscular Hemoglobin Concent 33.1 Red Cell Distribution Width 16.8 H Platelet Count 113 L Mean Platelet Volume Neutrophils % 56.8 Lymphocytes % 20.1 Monocytes % 15.2 H Eosinophils % 7.3 H Basophils % 0.2 Nucleated Red Blood Cells % 0.5 H Neutrophils # 5.5 Lymphocytes # 2.0 Monocytes # 1.5 H Eosinophils # 0.7 H Basophils # 0.0 Nucleated Red Blood Cells # 0.1 H Sodium Level 137 Potassium Level 5.1 Chloride Level 105 Carbon Dioxide Level 29 Anion Gap 8 Blood Urea Nitrogen 32 H Creatinine 0.86 Glucose Level 94 Calcium Level 8.7 Medications Medications Current Medications Pantoprazole (Protonix Iv) 40 mg BID@,18 IV Last administered on 12/28/16 05 :57; Admin Dose 40 MG; Start 12/09/16 at 06:00 Acetaminophen (Tylenol Supp) 650 mg Q4H PRN [place] PAIN OR TEMP ABOVE 38C; Start at 20:30 Morphine Sulfate (morphine) 2 mg Q4H PRN IV PAIN; Start 12/08/16 at 20:30 Collagenase (Santyl) 1 applic DAILY TOP Last administered on 12/26/16 00:00; Admin Dose 1 APPLIC; Start 12/09/16 at 09:00 Collagenase (Santyl) 1 applic PRN PRN TOP SOILED OR DISLODGED DRESSING; Start 12/09/16 at 04:30 Diazepam (Valium) 5 mg Q12H PRN IV ANXIETY Last administered on 12/09/16 23:41 ; Admin Dose 5 MG; Start 12/09/16 at 23:00 Ondansetron HCl (Zofran Inj) 4 mg Q4H PRN IV NAUSEA AND/OR VOMITING Last administered on 12/16/16 09:37; Admin Dose 4 MG; Start 12/10/16 at 17:00 Metoprolol Tartrate (Lopressor) 5 mg Q6H PRN IV SBP >160 or HR > 120 Last administered on 12/10/16 23:14; Admin Dose 5 MG; Start 12/10/16 at 17:00 Hydralazine HCl (Apresoline) 20 mg Q6H PRN IV SBP > 160 Last administered on 06:12; Admin Dose 20 MG; Start 12/10/16 at 17:00 IV Flush (NS 10 ml) 10 ml PRN PRN IV IV PROTOCOL; Start 12/15/16 at 15:30 IV Flush (NS 10 ml) 10 ml PRN PRN IV IV PROTOCOL; Start 12/16/16 at 18:00 Mineral Oil (Mineral Oil) 30 ml DAILY NGT Last administered on 12/28/16 09:40 ; Admin Dose 30 ML; Start 12/24/16 at 09:00 Metoclopramide HCl (Reglan) 10 mg Q12 IV Last administered on 12/28/16 09:40; Admin Dose 10 MG; Start 12/24/16 at 13:00 Polyethylene Glycol (Miralax) 17 gm DAILY NGT Last administered on 12/28/16 09 :40; Admin Dose 17 GM; Start 12/25/16 at 15:00; Stop 12/31/16 at 23:00 LIZZY HECK M.D. December 28, 2016 14:10
[2016-12-28] MEDS: COLLAGENASE 30 GM TUBE TOP SCH (17:29)
--- NOTE | 2016-12-28 17:35 | PN ---
Date/Time of Note Date/Time of Note DATE: 12/28/16 TIME: 17:33 Assessment/Plan VTE Prophylaxis VTE Prophylaxis Intervention: SCD's Lines/Catheters IV C[facility]ter Type (from [facility]): PICC Line Central line still needed: Yes Urinary Cath still in place: Yes Reason Cath still needed: urinary retention Assessment/Plan Chief Complaint/Hosp Course Patient tolerates G-tube feeding well, however there is no bowel movement, started on Reglan continued on laxatives. Assessment and plan: - Partial small bowel obstruction, resolved. Continue G-tube feeding. Dr. Teran is following patient in general surgery consultation. - Hypertension. Continue hydralazine. - S/p upper gastrointestinal bleed. Continue Protonix. Dr. Pryor is following in gastric gastroenterology consultation. - S/p sepsis secondary to healthcare acquired pneumonia. - Healthcare facility-acquired pneumonia. Continue antibiotics. Dr. Tang is following in infection disease consultation. - UTI.S/p treatment. 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 - Ventilator dependent respiratory failure with tracheostomy. Dr. Saenz is following in pulmonology consultation. - Chronic obstructive pulmonary disease. Continue breathing treatment. - Dysphagia. -Chronic Chaudhari catheter. -Colostomy -Bedbound status. Further recommendations based on clinical course. Plan of care discussed with Dr. Meeks. Problems: Exam/Review of Systems Vital Signs Vitals Vital Signs Date Time Temp Pulse Resp B/P Pulse Ox O2 Delivery O2 Flow Rate FiO2 12/28/16 16:54 81 12/28/16 15:32 21 96 30 12/28/16 15:07 98.3 133/70 Intake and Output 12/27/16 12/27/16 12/28/16 15:00 23:00 07:00 Intake Total 750 ml 850 ml 700 ml Output Total 1550 ml 1250 ml 900 ml Balance -800 ml -400 ml -200 ml Exam Constitutional: frail, non-verbal Psych: confusion Head: normocephalic Eyes: nl conjunctiva ENMT: nl external ears & nose Neck: other (Tracheostomy), supple Respiratory: diminished breath sounds Cardiovascular: other (Atrial arrhythmia) Gastrointestinal: non-tender, other (colostomy), soft Genitourinary - Male: other (Chaudhari) Musculoskeletal: other (Contracted) Extremities: normal pulses Neurological: other (Chronic encephalopathy) Skin: other (Wounds) Results Result Diagram: 12/28/16 0603 12/28/16 0603 Results 24 hrs Laboratory Tests Test 12/28/16 06:03 White Blood Count 9.7 # Red Blood Count 3.13 L Hemoglobin 9.1 L Hematocrit 27.5 L Mean Corpuscular Volume 87.9 Mean Corpuscular Hemoglobin 29.1 Mean Corpuscular Hemoglobin Concent 33.1 Red Cell Distribution Width 16.8 H Platelet Count 113 L Mean Platelet Volume Neutrophils % 56.8 Lymphocytes % 20.1 Monocytes % 15.2 H Eosinophils % 7.3 H Basophils % 0.2 Nucleated Red Blood Cells % 0.5 H Neutrophils # 5.5 Lymphocytes # 2.0 Monocytes # 1.5 H Eosinophils # 0.7 H Basophils # 0.0 Nucleated Red Blood Cells # 0.1 H Sodium Level 137 Potassium Level 5.1 Chloride Level 105 Carbon Dioxide Level 29 Anion Gap 8 Blood Urea Nitrogen 32 H Creatinine 0.86 Glucose Level 94 Calcium Level 8.7 Medications Medications Current Medications Pantoprazole (Protonix Iv) 40 mg BID@ IV Last administered on 12/28/16 17 :22; Admin Dose 40 MG; Start 12/09/16 at 06:00 Acetaminophen (Tylenol Supp) 650 mg Q4H PRN [place] PAIN OR TEMP ABOVE 38C; Start at 20:30 Morphine Sulfate (morphine) 2 mg Q4H PRN IV PAIN; Start 12/08/16 at 20:30 Collagenase (Santyl) 1 applic DAILY TOP Last administered on 12/28/16 17:29; Admin Dose 1 APPLIC; Start 12/09/16 at 09:00 Collagenase (Santyl) 1 applic PRN PRN TOP SOILED OR DISLODGED DRESSING; Start 12/09/16 at 04:30 Diazepam (Valium) 5 mg Q12H PRN IV ANXIETY Last administered on 12/09/16 23:41 ; Admin Dose 5 MG; Start 12/09/16 at 23:00 Ondansetron HCl (Zofran Inj) 4 mg Q4H PRN IV NAUSEA AND/OR VOMITING Last administered on 12/16/16 09:37; Admin Dose 4 MG; Start 12/10/16 at 17:00 Metoprolol Tartrate (Lopressor) 5 mg Q6H PRN IV SBP >160 or HR > 120 Last administered on 12/10/16 23:14; Admin Dose 5 MG; Start 12/10/16 at 17:00 Hydralazine HCl (Apresoline) 20 mg Q6H PRN IV SBP > 160 Last administered on 06:12; Admin Dose 20 MG; Start 12/10/16 at 17:00 IV Flush (NS 10 ml) 10 ml PRN PRN IV IV PROTOCOL; Start 12/15/16 at 15:30 IV Flush (NS 10 ml) 10 ml PRN PRN IV IV PROTOCOL; Start 12/16/16 at 18:00 Metoclopramide HCl (Reglan) 10 mg Q12 IV Last administered on 12/28/16 09:40; Admin Dose 10 MG; Start 12/24/16 at 13:00 Polyethylene Glycol (Miralax) 17 gm DAILY NGT Last administered on 12/28/16 09 :40; Admin Dose 17 GM; Start 12/25/16 at 15:00; Stop 12/31/16 at 23:00 Mineral Oil (Mineral Oil) 30 ml BID NGT ; Start 12/28/16 at 21:00 AMY MORAN December 28, 2016 17:35
--- NOTE | 2016-12-28 17:54 | PN ---
DATE: 12/28/2016 SUBJECTIVE: No communication. The patient is on ventilator, no response to verbal stimuli. OBJECTIVE: VITAL SIGNS: Temperature 98.3, heart rate between 91 and 81 regular, respirations between 16 and 21 on the ventilator. Blood pressure 133/79, saturation 96% on FIO2 30% on the ventilator. ABDOMEN: Not distended. Colostomy bag was changed last night per nurse. It is empty. There is n o gas, there is no bowel movement in it. LABORATORY DATA: WBC dropped to 9700 today with 56% neutrophils. Hemoglobin 9.7, hematocrit 27.4. ASSESSMENT: A 71-year-old who was admitted for possible GI bleeding and urinary tract infection and was suspicious for small-bowel obstruction. It was proved that there was no obstruction, but there was a lot of hard stool in the transverse colon and right colon. We tried to clean the colon from the stool. We succeeded partially. Then, the patient was started on tube feeding as of 4 days ago, 50 mL/hour, total of 1200 mL/24 hours and tubing flushes with 100 mL of free water every 6 hours. It appears that the patient is not getting enough free water. I am going to increase free water to 200 mL through NG tube every 3 hours, total 800 mL/24 hours plus 1200 mL tube feeding total is going to become 2000 mL/24 hours. Maybe this is going to help to have a bowel movement and prevent hard stool formation. Also, we are giving mineral oil 30 mL through NG tube b.i.d. and MiraLax 17 g in 1 00 mL of water daily through NG tube to help moving the bowels. We will continue to follow the gretchen ent. Dictated By: VANIA PINEDA/MACK Conf#: [id number] DID#: [id number]
[2016-12-29] VITALS (23 sets, daily range): BP systolic 142–189; BP diastolic 71–104; PULSE 58–98; RESP 16–27
[2016-12-29] MEDS: IPRATROPIUM (HFA) 12.9 GM INHALER INH SCH ×4 (01:26→19:38)
[2016-12-29] MEDS: ALBUTEROL 18 GM INHALER INH SCH ×4 (01:26→19:38)
[2016-12-29] MEDS: PANTOPRAZOLE 40 MG INJ IV SCH ×2 (06:27→17:10)
[2016-12-29 07:32] LABS: ADD SCAN DIFF NO
[2016-12-29 07:41] LABS: ABNORMAL IP MESSAGE 1; BASOPHILS % 0.5 % (0.0-2.0); EOSINOPHILS # 0.8 10^3/ul (0.0-0.5); EOSINOPHILS % 12.9 % (0.0-7.0); HEMATOCRIT 24.3 % (42.0-52.0); HEMOGLOBIN 8.1 g/dl (14.0-18.0); LYMPHOCYTES # 1.7 10^3/ul (0.8-2.9); MEAN CORPUSCULAR HEMOGLOBIN 28.9 pg (29.0-33.0); MEAN CORPUSCULAR HGB CONC 33.3 g/dl (32.0-37.0); MEAN CORPUSCULAR VOLUME 86.8 fl (82.0-101.0); MONOCYTE # 1.1 10^3/ul (0.3-0.9); MONOCYTES % 17.9 % (0.0-11.0); NEUTROPHIL # 2.7 10^3/ul (1.6-7.5); NEUTROPHILS % 41.4 % (39.0-77.0); PLATELET COUNT 125 10^3/UL (140-415); RED CELL DISTRIBUTION WIDTH 16.7 % (11.5-14.5); WHITE BLOOD COUNT 6.4 10^3/ul (4.8-10.8)
[2016-12-29 07:57] LABS: POTASSIUM 4.7 mmol/L (3.5-5.1)
[2016-12-29 08:00] LABS: CREATININE 0.9 mg/dl (0.61-1.24)
[2016-12-29 08:01] LABS: CALCIUM 8.7 mg/dl (8.4-10.2); PHOSPHORUS 4.1 mg/dl (2.5-4.9)
--- NOTE | 2016-12-29 09:52 | CONS ---
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 the wound culture grew carbapenemase producing kleb, enterococci and pseudo - Dysphagia s/p EGD and new G tube placement 09/15/2016 - h/o infection of wound of RLE due to pseudomonas. 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/11/2016 - possible recurrent SBO per CT on 12/10/2016 - ileus - recurrent leukocytosis likely reactive from multiple emesis on 12/10/2016 & (remains afebrile) - MRSA nasal colonization - treated with Mupirocin 12/12/2016-12/22/2016 - Note: S/p tobramycin (12/12/2016-12/18/2016) for pseudomonas and acinetobacter, Cefepime (12/12/2016-12/21/2016) for KPC in sputum, and Linezolid (12/12/2016-2016) for MRSA recommendations: - will monitor the results of blood cultures - continue to monitor off abx - contact isolation for MSA - droplet precautions for KPC in his resp tract management d/w Pt's RN Problems: Consultation Date/Type/Reason Admit Date/Time December 08, 2016 at 12:01 Initial Consult Date 12/10/16 Type of Consultation: ID Referring Provider: MARLA AKBAR MD 24 HR Interval Summary Subjective hx not possible: pt non-verbal Exam/Review of Systems Vital Signs Vitals Vital Signs Date Time Temp Pulse Resp B/P Pulse Ox O2 Delivery O2 Flow Rate FiO2 12/29/16 09:30 85 25 98 30 12/29/16 04:06 97.8 157/78 Intake and Output 12/28/16 12/28/16 12/29/16 15:00 23:00 07:00 Intake Total 800 ml 900 ml Output Total 900 ml 820 ml Balance -100 ml 80 ml Exam Constitutional: frail, non-verbal Psych: confusion Head: other (temporal wasting b/l) Eyes: nl lids ENMT: other (NGT) Respiratory: diminished breath sounds Cardiovascular: nl pulses, regular rate and rhythm Gastrointestinal: non-tender, other (ostomy bag to G tube site, colostomy in place), soft Musculoskeletal: nl extremities to inspection Extremities: No edema Neurological: confused, lethargic Skin: rash or lesions (superficial ulcers on arm and leg, no erythema or drainage) Results Result Diagram: 12/29/16 0633 12/29/16 0623 Results 24 hrs Laboratory Tests Test 12/29/16 06:23 12/29/16 06:33 Sodium Level 136 Potassium Level 4.7 Chloride Level 104 Carbon Dioxide Level 31 Anion Gap 6 L Blood Urea Nitrogen 29 H Creatinine 0.90 Glucose Level 104 Calcium Level 8.7 Phosphorus Level 4.1 Magnesium Level 2.0 White Blood Count 6.4 # Red Blood Count 2.80 L Hemoglobin 8.1 L Hematocrit 24.3 L Mean Corpuscular Volume 86.8 Mean Corpuscular Hemoglobin 28.9 L Mean Corpuscular Hemoglobin Concent 33.3 Red Cell Distribution Width 16.7 H Platelet Count 125 L Mean Platelet Volume Neutrophils % 41.4 Lymphocytes % 27.0 Monocytes % 17.9 H Eosinophils % 12.9 H Basophils % 0.5 Nucleated Red Blood Cells % 0.0 Neutrophils # 2.7 Lymphocytes # 1.7 Monocytes # 1.1 H Eosinophils # 0.8 H Basophils # 0.0 Nucleated Red Blood Cells # 0.0 Medications Medications Current Medications Pantoprazole (Protonix Iv) 40 mg BID@,18 IV Last administered on 12/29/16 06 :27; Admin Dose 40 MG; Start 12/09/16 at 06:00 Acetaminophen (Tylenol Supp) 650 mg Q4H PRN [place] PAIN OR TEMP ABOVE 38C; Start at 20:30 Morphine Sulfate (morphine) 2 mg Q4H PRN IV PAIN; Start 12/08/16 at 20:30 Collagenase (Santyl) 1 applic DAILY TOP Last administered on 12/28/16 17:29; Admin Dose 1 APPLIC; Start 12/09/16 at 09:00 Collagenase (Santyl) 1 applic PRN PRN TOP SOILED OR DISLODGED DRESSING; Start 12/09/16 at 04:30 Diazepam (Valium) 5 mg Q12H PRN IV ANXIETY Last administered on 12/09/16 23:41 ; Admin Dose 5 MG; Start 12/09/16 at 23:00 Ondansetron HCl (Zofran Inj) 4 mg Q4H PRN IV NAUSEA AND/OR VOMITING Last administered on 12/16/16 09:37; Admin Dose 4 MG; Start 12/10/16 at 17:00 Metoprolol Tartrate (Lopressor) 5 mg Q6H PRN IV SBP >160 or HR > 120 Last administered on 12/10/16 23:14; Admin Dose 5 MG; Start 12/10/16 at 17:00 Hydralazine HCl (Apresoline) 20 mg Q6H PRN IV SBP > 160 Last administered on 06:12; Admin Dose 20 MG; Start 12/10/16 at 17:00 IV Flush (NS 10 ml) 10 ml PRN PRN IV IV PROTOCOL; Start 12/15/16 at 15:30 IV Flush (NS 10 ml) 10 ml PRN PRN IV IV PROTOCOL; Start 12/16/16 at 18:00 Metoclopramide HCl (Reglan) 10 mg Q12 IV Last administered on 12/28/16 21:03; Admin Dose 10 MG; Start 12/24/16 at 13:00 Polyethylene Glycol (Miralax) 17 gm DAILY NGT Last administered on 12/28/16 09 :40; Admin Dose 17 GM; Start 12/25/16 at 15:00; Stop 12/31/16 at 23:00 Mineral Oil (Mineral Oil) 30 ml BID NGT Last administered on 12/28/16 21:03; Admin Dose 30 ML; Start 12/28/16 at 21:00 LIZZY HECK M.D. December 29, 2016 09:52
[2016-12-29] MEDS: METOCLOPRAMIDE 10 MG INJ IV SCH ×2 (10:46→20:36)
[2016-12-29] MEDS: MINERAL OIL 30ML CUP NGT SCH ×2 (10:46→20:35)
[2016-12-29] MEDS: POLYETHYLENE GLYCOL 17 GM PACKET NGT SCH (10:46)
[2016-12-29] MEDS: COLLAGENASE 30 GM TUBE TOP SCH (10:50)
--- NOTE | 2016-12-29 14:01 | PN ---
DATE: 12/29/2016 SUBJECTIVE: No communication, nonverbal. OBJECTIVE: VITAL SIGNS: Temperature 97.8, heart rate 85 down to 50, respirations 16, blood pressure 165/96, saturation 94% on ventilator with FIO2 30%. ABDOMEN: Flat, nondistended. Bowel sounds present, almost normal. The last KUB, which was on the , showed nonobstructive bowel gas pattern, moderate to severe degenerative changes of the right greater than left hip joints, also decreased osseous mineralization. LABORATORY DATA: WBC 6400 with 41% neutrophils, hemoglobin 8.1, hematocrit 24.3. Chemistry: Sodium/potassium normal. BUN 29, creatinine 0.90. Patient has not had any bowel movement, actually the last one was 6 days ago. ASSESSMENT AND PLAN: This is a 71-year-old male who was admitted for medical reasons including GI bleeding, was suspicions of small-bowel obstruction and there were dilated small bowel loops and GI's small bowel series revealed that the contrast material reached to the colon within 4 hours. There is no sign of obstruction. Actually, there was a lot of hard stool in the transverse colon. We tried to make the patient evacuate. Then, part of the stool was evacuated with the help of GoLYTELY 2 liters per 24 hours, but then after the, patient was not passing any gas or any bowel movement, but is being fed also and there is no distention. PLAN: Besides the medical problems, I am trying to make the patient have bowel movements. It looks like there is much decreased in the motility and the other possibility could be that the site of excision of the colostomy or whether the bowel is passing through the fascia of the rectus muscle which is slightly abnormal and maybe that is preventing passage of the hard stool. I will discuss with other people about this and try to give Golytley 2 liter over 24 hours to make sure that he is going to pass some stool because already it has been about 7 days that patient has not had any bowel movement. Dictated By: VANIA PINEDA/MACK Conf#: [id number] DID#: [id number] MTDD
[2016-12-29] MEDS ORDERED: PEG/ELECTROLYTES 4L BTL NGT SCH (15:00)
--- NOTE | 2016-12-29 18:04 | PN ---
Date/Time of Note Date/Time of Note DATE: 12/29/16 TIME: 18:03 Assessment/Plan VTE Prophylaxis VTE Prophylaxis Intervention: SCD's Lines/Catheters [facility] Type [facility] PICC Line Central line still needed: Yes Urinary Cath still in place: Yes Reason Cath still needed: urinary retention Assessment/Plan Chief Complaint/Hosp Course No bowel movement yet, patient continues a G-tube feeding without emesis, remains hemodynamically stable. Assessment and plan: - Partial small bowel obstruction, resolved. Continue G-tube feeding. Dr. Teran is following patient in general surgery consultation. - Hypertension. Continue hydralazine. - S/p upper gastrointestinal bleed. Continue Protonix. Dr. Pryor is following in gastric gastroenterology consultation. - S/p sepsis secondary to healthcare acquired pneumonia. - Healthcare facility-acquired pneumonia. Continue antibiotics. Dr. Tang is following in infection disease consultation. - UTI.S/p treatment. 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 - Ventilator dependent respiratory failure with tracheostomy. Dr. Saenz is following in pulmonology consultation. - Chronic obstructive pulmonary disease. Continue breathing treatment. - Dysphagia. -Chronic Chaudhari catheter. -Colostomy -Bedbound status. Further recommendations based on clinical course. Plan of care discussed with Dr. Meeks. Problems: Exam/Review of Systems Vital Signs Vitals Vital Signs Date Time Temp Pulse Resp B/P Pulse Ox O2 Delivery O2 Flow Rate FiO2 12/29/16 17:19 59 24 99 30 12/29/16 15:36 98.6 154/104 Intake and Output 12/28/16 12/28/16 12/29/16 15:00 23:00 07:00 Intake Total 800 ml 900 ml Output Total 900 ml 820 ml Balance -100 ml 80 ml Exam Constitutional: frail, non-verbal Psych: confusion Head: normocephalic Eyes: nl conjunctiva ENMT: nl external ears & nose Neck: other (Tracheostomy), supple Respiratory: diminished breath sounds Cardiovascular: other (Atrial arrhythmia) Gastrointestinal: non-tender, other (colostomy), soft Genitourinary - Male: other (Chaudhari) Musculoskeletal: other (Contracted) Extremities: normal pulses Neurological: other (Chronic encephalopathy) Skin: other (Wounds) Results Result Diagram: 12/29/16 0633 12/29/16 0628 Results 24 hrs Laboratory Tests Test 12/29/16 06:23 12/29/16 06:33 Sodium Level 136 Potassium Level 4.7 Chloride Level 104 Carbon Dioxide Level 31 Anion Gap 6 L Blood Urea Nitrogen 29 H Creatinine 0.90 Glucose Level 104 Calcium Level 8.7 Phosphorus Level 4.1 Magnesium Level 2.0 White Blood Count 6.4 # Red Blood Count 2.80 L Hemoglobin 8.1 L Hematocrit 24.3 L Mean Corpuscular Volume 86.8 Mean Corpuscular Hemoglobin 28.9 L Mean Corpuscular Hemoglobin Concent 33.3 Red Cell Distribution Width 16.7 H Platelet Count 125 L Mean Platelet Volume Neutrophils % 41.4 Lymphocytes % 27.0 Monocytes % 17.9 H Eosinophils % 12.9 H Basophils % 0.5 Nucleated Red Blood Cells % 0.0 Neutrophils # 2.7 Lymphocytes # 1.7 Monocytes # 1.1 H Eosinophils # 0.8 H Basophils # 0.0 Nucleated Red Blood Cells # 0.0 Medications Medications Current Medications Pantoprazole (Protonix Iv) 40 mg BID@,18 IV Last administered on 12/29/16 17 :10; Admin Dose 40 MG; Start 12/09/16 at 06:00 Acetaminophen (Tylenol Supp) 650 mg Q4H PRN [place] PAIN OR TEMP ABOVE 38C; Start at 20:30 Morphine Sulfate (morphine) 2 mg Q4H PRN IV PAIN; Start 12/08/16 at 20:30 Collagenase (Santyl) 1 applic DAILY TOP Last administered on 12/29/16 10:50; Admin Dose 1 APPLIC; Start 12/09/16 at 09:00 Collagenase (Santyl) 1 applic PRN PRN TOP SOILED OR DISLODGED DRESSING; Start 12/09/16 at 04:30 Diazepam (Valium) 5 mg Q12H PRN IV ANXIETY Last administered on 12/09/16 23:41 ; Admin Dose 5 MG; Start 12/09/16 at 23:00 Ondansetron HCl (Zofran Inj) 4 mg Q4H PRN IV NAUSEA AND/OR VOMITING Last administered on 12/16/16 09:37; Admin Dose 4 MG; Start 12/10/16 at 17:00 Metoprolol Tartrate (Lopressor) 5 mg Q6H PRN IV SBP >160 or HR > 120 Last administered on 12/10/16 23:14; Admin Dose 5 MG; Start 12/10/16 at 17:00 Hydralazine HCl (Apresoline) 20 mg Q6H PRN IV SBP > 160 Last administered on 06:12; Admin Dose 20 MG; Start 12/10/16 at 17:00 IV Flush (NS 10 ml) 10 ml PRN PRN IV IV PROTOCOL; Start 12/15/16 at 15:30 IV Flush (NS 10 ml) 10 ml PRN PRN IV IV PROTOCOL; Start 12/16/16 at 18:00 Metoclopramide HCl (Reglan) 10 mg Q12 IV Last administered on 12/29/16 10:46; Admin Dose 10 MG; Start 12/24/16 at 13:00 Polyethylene Glycol (Miralax) 17 gm DAILY NGT Last administered on 12/29/16 10 :46; Admin Dose 17 GM; Start 12/25/16 at 15:00; Stop 12/31/16 at 23:00 Mineral Oil (Mineral Oil) 30 ml BID NGT Last administered on 12/29/16 10:46; Admin Dose 30 ML; Start 12/28/16 at 21:00 Polyethylene Glycol/ Electrolytes (Golytely) 1,200 ml ONCE NGT Last administered on 12/29/16 17:09; Admin Dose 1,200 ML; Start 12/29/16 at 15:00; Stop 12/30/16 at 02:00 AMY MORAN December 29, 2016 18:04
[2016-12-29] MEDS: hydrALAzine 20 MG INJ IV PRN (20:36)
[2016-12-30] VITALS (25 sets, daily range): BP systolic 124–230; BP diastolic 63–109; PULSE 79–123; RESP 16–22
[2016-12-30] MEDS: IPRATROPIUM (HFA) 12.9 GM INHALER INH SCH ×4 (01:39→19:37)
[2016-12-30] MEDS: ALBUTEROL 18 GM INHALER INH SCH ×4 (01:39→19:37)
[2016-12-30] MEDS: PANTOPRAZOLE 40 MG INJ IV SCH ×2 (06:08→18:31)
[2016-12-30 06:15] LABS: ADD SCAN DIFF NO
[2016-12-30 06:34] LABS: BASOPHILS % 0.6 % (0.0-2.0); EOSINOPHILS # 0.6 10^3/ul (0.0-0.5); EOSINOPHILS % 11.9 % (0.0-7.0); HEMATOCRIT 25.7 % (42.0-52.0); HEMOGLOBIN 8.5 g/dl (14.0-18.0); LYMPHOCYTES # 1.7 10^3/ul (0.8-2.9); LYMPHOCYTES % 31.6 % (15.0-51.0); MEAN CORPUSCULAR HEMOGLOBIN 28.4 pg (29.0-33.0); MEAN CORPUSCULAR HGB CONC 33.1 g/dl (32.0-37.0); MONOCYTE # 1.2 10^3/ul (0.3-0.9); NEUTROPHIL # 1.8 10^3/ul (1.6-7.5); NEUTROPHILS % 33.7 % (39.0-77.0); PLATELET COUNT 182 10^3/UL (140-415); RED BLOOD COUNT 2.99 10^6/ul (4.70-6.10); RED CELL DISTRIBUTION WIDTH 16.4 % (11.5-14.5); WHITE BLOOD COUNT 5.3 10^3/ul (4.8-10.8)
[2016-12-30 07:03] LABS: CALCIUM 8.8 mg/dl (8.4-10.2); CREATININE 0.9 mg/dl (0.61-1.24); POTASSIUM 4.6 mmol/L (3.5-5.1)
[2016-12-30] MEDS: COLLAGENASE 30 GM TUBE TOP SCH (09:00)
[2016-12-30] MEDS: METOCLOPRAMIDE 10 MG INJ IV SCH ×2 (10:15→20:41)
[2016-12-30] MEDS: MINERAL OIL 30ML CUP NGT SCH ×2 (10:15→20:41)
[2016-12-30] MEDS: POLYETHYLENE GLYCOL 17 GM PACKET NGT SCH (10:15)
--- NOTE | 2016-12-30 15:24 | PN ---
Date/Time of Note Date/Time of Note DATE: 12/30/16 TIME: 15:23 Assessment/Plan VTE Prophylaxis VTE Prophylaxis Intervention: other Lines/Catheters IV [facility] Type (from [facility] PICC Line Urinary Cath still in place: No Assessment/Plan Assessment/Plan - Partial small bowel obstruction, resolved. Continue G-tube feeding. Dr. Teran is following patient in general surgery consultation. - Hypertension. Continue hydralazine. - S/p upper gastrointestinal bleed. Continue Protonix. Dr. Pryor is following in gastric gastroenterology consultation. - S/p sepsis secondary to healthcare acquired pneumonia. - Healthcare facility-acquired pneumonia. Continue antibiotics. Dr. Tang is following in infection disease consultation. - UTI.S/p treatment. 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 - Ventilator dependent respiratory failure with tracheostomy. Dr. Saenz is following in pulmonology consultation. - Chronic obstructive pulmonary disease. Continue breathing treatment. - Dysphagia. -Chronic Chaudhari catheter. -Colostomy -Bedbound status. Further recommendations based on clinical course. Plan of care discussed with Dr. Meeks. Exam/Review of Systems Vital Signs Vitals Vital Signs Date Time Temp Pulse Resp B/P Pulse Ox O2 Delivery O2 Flow Rate FiO2 12/30/16 15:13 75 20 97 30 12/30/16 15:02 98.5 146/80 Intake and Output 12/29/16 12/29/16 12/30/16 15:00 23:00 07:00 Intake Total 1100 ml Output Total 1900 ml Balance -800 ml Exam Constitutional: non-verbal Respiratory: clear to auscultation, normal air movement Cardiovascular: nl pulses, regular rate and rhythm Gastrointestinal: non-tender, other, soft Musculoskeletal: muscle weakness Neurological: unresponsive Lymph: nontender Results Result Diagram: 12/30/16 0607 12/30/16 0607 Results 24 hrs Laboratory Tests Test 12/30/16 06:07 White Blood Count 5.3 Red Blood Count 2.99 L Hemoglobin 8.5 L Hematocrit 25.7 L Mean Corpuscular Volume 86.0 Mean Corpuscular Hemoglobin 28.4 L Mean Corpuscular Hemoglobin Concent 33.1 Red Cell Distribution Width 16.4 H Platelet Count 182 # Mean Platelet Volume Neutrophils % 33.7 L Lymphocytes % 31.6 Monocytes % 22.0 H Eosinophils % 11.9 H Basophils % 0.6 Nucleated Red Blood Cells % 0.0 Neutrophils # 1.8 Lymphocytes # 1.7 Monocytes # 1.2 H Eosinophils # 0.6 H Basophils # 0.0 Nucleated Red Blood Cells # 0.0 Sodium Level 137 Potassium Level 4.6 Chloride Level 104 Carbon Dioxide Level 29 Anion Gap 9 Blood Urea Nitrogen 22 H Creatinine 0.90 Glucose Level 101 Calcium Level 8.8 Medications Medications Current Medications Pantoprazole (Protonix Iv) 40 mg BID@,18 IV Last administered on 12/30/16 06: 08; Admin Dose 40 MG; Start 12/09/16 at 06:00 Acetaminophen (Tylenol Supp) 650 mg Q4H PRN [place] PAIN OR TEMP ABOVE 38C; Start at 20:30 Morphine Sulfate (morphine) 2 mg Q4H PRN [place] PAIN; Start 12/08/16 at 20:30 Collagenase (Santyl) 1 applic DAILY TOP Last administered on 12/29/16 10:50; Admin Dose 1 APPLIC; Start 12/09/16 at 09:00 Collagenase (Santyl) 1 applic PRN PRN [place] SOILED OR DISLODGED DRESSING; Start 12/09/16 at 04:30 Diazepam (Valium) 5 mg Q12H PRN IV ANXIETY Last administered on 12/09/16 23:41 ; Admin Dose 5 MG; Start 12/09/16 at 23:00 Ondansetron HCl (Zofran Inj) 4 mg Q4H PRN IV NAUSEA AND/OR VOMITING Last administered on 12/16/16 09:37; Admin Dose 4 MG; Start 12/10/16 at 17:00 Metoprolol Tartrate (Lopressor) 5 mg Q6H PRN IV SBP >160 or HR > 120 Last administered on 12/10/16 23:14; Admin Dose 5 MG; Start 12/10/16 at 17:00 Hydralazine HCl (Apresoline) 20 mg Q6H PRN IV SBP > 160 Last administered on 20:36; Admin Dose 20 MG; Start 12/10/16 at 17:00 IV Flush (NS 10 ml) 10 ml PRN PRN IV IV PROTOCOL; Start 12/15/16 at 15:30 IV Flush (NS 10 ml) 10 ml PRN PRN IV IV PROTOCOL; Start 12/16/16 at 18:00 Metoclopramide HCl (Reglan) 10 mg Q12 IV Last administered on 12/30/16 10:15; Admin Dose 10 MG; Start 12/24/16 at 13:00 Polyethylene Glycol (Miralax) 17 gm DAILY NGT Last administered on 12/30/16 10: 15; Admin Dose 17 GM; Start 12/25/16 at 15:00; Stop 12/31/16 at 23:00 Mineral Oil (Mineral Oil) 30 ml BID NGT Last administered on 12/30/16 10:15; Admin Dose 30 ML; Start 12/28/16 at 21:00 MARIO ROWE Dec 30, 2016 15:24
--- NOTE | 2016-12-30 20:52 | CONS ---
Date/Time of Note Date/Time of Note DATE: 12/30/16 TIME: 20:49 Assessment/Plan Assessment/Plan Chief Complaint/Hosp Course - s/p severe sepsis due to HCAP - HCAP/VAP due to kleb (KPC) and pseudo - UTI due to acineto and pseudo related to chronic indwelling Chaudhari - multiple pressure ulcer - recurrent infection of ulcer of RLE due to MRSA and pseudo. 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 the wound culture grew carbapenemase producing kleb, enterococci and pseudo - Dysphagia s/p EGD and new G tube placement 09/15/2016 - h/o infection of wound of RLE due to pseudomonas. 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/11/2016 - possible recurrent SBO per CT on 12/10/2016 - ileus - recurrent leukocytosis likely reactive from multiple emesis on 12/10/2016 & (remains afebrile) - MRSA nasal colonization - treated with Mupirocin 12/12/2016-12/22/2016 - Note: S/p tobramycin (12/12/2016-12/18/2016) for pseudomonas and acinetobacter, Cefepime (12/12/2016-12/21/2016) for KPC in sputum, and Linezolid (12/12/2016-2016) for MRSA recommendations: - continue to monitor Pt off abx - contact isolation for MRSA - droplet precautions for KPC in his respiratory tract Problems: Consultation Date/Type/Reason Admit Date/Time December 08, 2016 at 12:01 Initial Consult Date 12/10/16 Type of Consultation: ID Referring Provider: MARLA AKBAR MD 24 HR Interval Summary Subjective hx not possible: pt non-verbal Exam/Review of Systems Vital Signs Vitals Vital Signs Date Time Temp Pulse Resp B/P Pulse Ox O2 Delivery O2 Flow Rate FiO2 12/30/16 20:24 79 12/30/16 20:11 98.5 16 150/88 98 12/30/16 17:18 30 Intake and Output 12/29/16 12/29/16 12/30/16 15:00 23:00 07:00 Intake Total 1100 ml Output Total 1900 ml Balance -800 ml Exam Constitutional: frail, non-verbal Psych: confusion Head: other (b/l temporal wasting) Eyes: nl conjunctiva, nl lids ENMT: nl external ears & nose, nl nasal mucosa & septum Neck: other (trach) Respiratory: clear to auscultation, normal air movement Cardiovascular: nl pulses, regular rate and rhythm Gastrointestinal: non-tender, other (ostomy bag to former G tube site, colostomy bag), soft, No distended, No firm Musculoskeletal: other (contractured extremities) Neurological: lethargic Skin: rash or lesions (multiple decubiti) Results Result Diagram: 12/30/16 0607 12/30/16 0607 Results 24 hrs Laboratory Tests Test 12/30/16 06:07 White Blood Count 5.3 Red Blood Count 2.99 L Hemoglobin 8.5 L Hematocrit 25.7 L Mean Corpuscular Volume 86.0 Mean Corpuscular Hemoglobin 28.4 L Mean Corpuscular Hemoglobin Concent 33.1 Red Cell Distribution Width 16.4 H Platelet Count 182 # Mean Platelet Volume Neutrophils % 33.7 L Lymphocytes % 31.6 Monocytes % 22.0 H Eosinophils % 11.9 H Basophils % 0.6 Nucleated Red Blood Cells % 0.0 Neutrophils # 1.8 Lymphocytes # 1.7 Monocytes # 1.2 H Eosinophils # 0.6 H Basophils # 0.0 Nucleated Red Blood Cells # 0.0 Sodium Level 137 Potassium Level 4.6 Chloride Level 104 Carbon Dioxide Level 29 Anion Gap 9 Blood Urea Nitrogen 22 H Creatinine 0.90 Glucose Level 101 Calcium Level 8.8 Medications Medications Current Medications Pantoprazole (Protonix Iv) 40 mg BID@ IV Last administered on 12/30/16 18: 31; Admin Dose 40 MG; Start 12/09/16 at 06:00 Acetaminophen (Tylenol Supp) 650 mg Q4H PRN [place] PAIN OR TEMP ABOVE 38C; Start at 20:30 Morphine Sulfate (morphine) 2 mg Q4H PRN IV PAIN; Start 12/08/16 at 20:30 Collagenase (Santyl) 1 applic DAILY TOP Last administered on 12/30/16 09:00; Admin Dose 1 APPLIC; Start 12/09/16 at 09:00 Collagenase (Santyl) 1 applic PRN PRN TOP SOILED OR DISLODGED DRESSING; Start 12/09/16 at 04:30 Diazepam (Valium) 5 mg Q12H PRN IV ANXIETY Last administered on 12/09/16 23:41 ; Admin Dose 5 MG; Start 12/09/16 at 23:00 Ondansetron HCl (Zofran Inj) 4 mg Q4H PRN IV NAUSEA AND/OR VOMITING Last administered on 12/16/16 09:37; Admin Dose 4 MG; Start 12/10/16 at 17:00 Metoprolol Tartrate (Lopressor) 5 mg Q6H PRN IV SBP >160 or HR > 120 Last administered on 12/10/16 23:14; Admin Dose 5 MG; Start 12/10/16 at 17:00 Hydralazine HCl (Apresoline) 20 mg Q6H PRN IV SBP > 160 Last administered on 20:36; Admin Dose 20 MG; Start 12/10/16 at 17:00 IV Flush (NS 10 ml) 10 ml PRN PRN IV IV PROTOCOL; Start 12/15/16 at 15:30 IV Flush (NS 10 ml) 10 ml PRN PRN IV IV PROTOCOL; Start 12/16/16 at 18:00 Metoclopramide HCl (Reglan) 10 mg Q12 IV Last administered on 12/30/16 20:41; Admin Dose 10 MG; Start 12/24/16 at 13:00 Polyethylene Glycol (Miralax) 17 gm DAILY NGT Last administered on 12/30/16 10: 15; Admin Dose 17 GM; Start 12/25/16 at 15:00; Stop 12/31/16 at 23:00 Mineral Oil (Mineral Oil) 30 ml BID NGT Last administered on 12/30/16 20:41; Admin Dose 30 ML; Start 12/28/16 at 21:00 Polyethylene Glycol/ Electrolytes (Golytely) 1,200 ml ONCE ONCE NGT Last administered on 12/30/16 20:41; Admin Dose 1,200 ML; Start 12/30/16 at 21:00; Stop 12/30/16 at 21:01 LIZZY HECK M.D. Dec 30, 2016 20:52
[2016-12-30] MEDS ORDERED: PEG/ELECTROLYTES 4L BTL NGT ONE (21:00)
[2016-12-31] VITALS (25 sets, daily range): BP systolic 129–188; BP diastolic 62–92; PULSE 73–98; RESP 16–31
[2016-12-31] MEDS: IPRATROPIUM (HFA) 12.9 GM INHALER INH SCH ×4 (01:43→19:53)
[2016-12-31] MEDS: ALBUTEROL 18 GM INHALER INH SCH ×4 (01:43→19:52)
[2016-12-31] MEDS: PANTOPRAZOLE 40 MG INJ IV SCH ×2 (05:05→18:54)
--- NOTE | 2016-12-31 06:48 | PN ---
DATE: 12/30/2016 SUBJECTIVE: No communication. The patient is on ventilator via tracheostomy. Neurologically unresponsive. OBJECTIVE: On the ventilator. VITAL SIGNS: Temperature 98.5, heart rate 84, respirations 20 on the machine, blood pressure 146/80, saturation 97% on FIO2 of 30% on the ventilator. LABORATORY DATA: WBC normal range. According to the chart, the nurses, the patient had 1 bowel movement around 4:00 to 5:00 in the morning. Also, has had another bowel movement through the colostomy which is about 500 mL now and drainage. There is little fluid. ABDOMEN: Flat. ASSESSMENT: Considering that the patient did not have a bowel movement for 7 days in for the past 8 days, so we started the patient on GoLYTELY 100 mL per hour through nasogastric tube q.12h. and apparently that helped; the patient so far has had 2 bowel movements and this prove that patient is not obstructed. Again maybe we can make a conclusion that every 6 or 7 days,for, preventing the accumulation of the stool in the colon, we should give him a dose of GOLYTLY, about 1to2 liters over 10 hrs. PLAN: Continue all other care as per other consultants. We will watch for bowel movement. We may repeat GoLYTELY once more in a few days from now. Dictated By: VANIA PINEDA/MACK Conf#: [id number] DID#: [id number] MTDD
[2016-12-31 06:54] LABS: ADD SCAN DIFF NO
[2016-12-31 06:57] LABS: ABNORMAL IP MESSAGE 1; HEMATOCRIT 26.1 % (42.0-52.0); HEMOGLOBIN 8.7 g/dl (14.0-18.0); MEAN CORPUSCULAR HEMOGLOBIN 28.9 pg (29.0-33.0); MEAN CORPUSCULAR HGB CONC 33.3 g/dl (32.0-37.0); MEAN CORPUSCULAR VOLUME 86.7 fl (82.0-101.0); RED BLOOD COUNT 3.01 10^6/ul (4.70-6.10); RED CELL DISTRIBUTION WIDTH 16.3 % (11.5-14.5); WHITE BLOOD COUNT 5.2 10^3/ul (4.8-10.8)
[2016-12-31 07:28] LABS: CALCIUM 8.7 mg/dl (8.4-10.2); CREATININE 0.89 mg/dl (0.61-1.24); POTASSIUM 4.7 mmol/L (3.5-5.1)
[2016-12-31] MEDS: MINERAL OIL 30ML CUP NGT SCH ×2 (09:00→21:02)
[2016-12-31] MEDS: POLYETHYLENE GLYCOL 17 GM PACKET NGT SCH (09:00)
[2016-12-31 09:32] LABS: PLATELET COUNT 179 10^3/UL (140-415)
[2016-12-31 09:34] LABS: EOSINOPHILS # 0.6 10^3/ul (0.0-0.5); LYMPHOCYTES # 1.9 10^3/ul (0.8-2.9); MONOCYTE # 0.8 10^3/ul (0.3-0.9); NEUTROPHIL # 1.7 10^3/ul (1.6-7.5); PLATELETS CLUMPS FEW
--- NOTE | 2016-12-31 10:28 | CONS ---
Date/Time of Note Date/Time of Note DATE: 12/31/16 TIME: 10:26 Assessment/Plan Assessment/Plan Chief Complaint/Hosp Course - s/p severe sepsis due to HCAP - HCAP/VAP due to kleb (KPC) and pseudo - UTI due to acineto and pseudo related to chronic indwelling Chaudhari - multiple pressure ulcer - recurrent infection of ulcer of RLE due to MRSA and pseudo. 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 the wound culture grew carbapenemase producing kleb, enterococci and pseudo - Dysphagia s/p EGD and new G tube placement 09/15/2016 - h/o infection of wound of RLE due to pseudomonas. 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/11/2016 - possible recurrent SBO per CT on 12/10/2016 - ileus - recurrent leukocytosis likely reactive from multiple emesis on 12/10/2016 & (remains afebrile) - MRSA nasal colonization - treated with Mupirocin 12/12/2016-12/22/2016 - Note: S/p tobramycin (12/12/2016-12/18/2016) for pseudomonas and acinetobacter, Cefepime (12/12/2016-12/21/2016) for KPC in sputum, and Linezolid (12/12/2016-2016) for MRSA recommendations: - wound care - repeat casanova cultures if temp >100.4F - continue to monitor Pt off abx - contact isolation for MRSA - droplet precautions for KPC in his respiratory tract Problems: Consultation Date/Type/Reason Admit Date/Time December 08, 2016 at 12:01 Initial Consult Date 12/10/16 Type of Consultation: ID Referring Provider: MARLA AKBAR MD 24 HR Interval Summary Subjective hx not possible: pt non-verbal Exam/Review of Systems Vital Signs Vitals Vital Signs Date Time Temp Pulse Resp B/P Pulse Ox O2 Delivery O2 Flow Rate FiO2 12/31/16 09:20 75 16 98 30 12/31/16 07:52 97.2 169/92 Intake and Output 12/30/16 12/30/16 12/31/16 15:00 23:00 07:00 Intake Total 700 ml 200 ml Output Total 100 ml 500 ml 800 ml Balance -100 ml 200 ml -600 ml Exam Constitutional: frail, non-verbal Psych: confusion Head: other (b/l temporal wasting) Eyes: nl conjunctiva, nl lids, other (NGT) Neck: other (trach) Respiratory: diminished breath sounds Cardiovascular: nl pulses, regular rate and rhythm Gastrointestinal: non-tender, other (ostomy bag to former GT site and colostomy ), soft Musculoskeletal: nl extremities to inspection Extremities: No edema Neurological: confused, lethargic Skin: rash or lesions (decubitus ulcers on LE, non-TTP) Results Result Diagram: 12/31/16 0546 12/31/16 0546 Results 24 hrs Laboratory Tests Test 12/31/16 05:46 White Blood Count 5.2 Red Blood Count 3.01 L Hemoglobin 8.7 L Hematocrit 26.1 L Mean Corpuscular Volume 86.7 Mean Corpuscular Hemoglobin 28.9 L Mean Corpuscular Hemoglobin Concent 33.3 Red Cell Distribution Width 16.3 H Platelet Count 179 Mean Platelet Volume Neutrophils % 33.0 L Band Neutrophils % 3.0 Lymphocytes % 37.0 Monocytes % 15.0 H Eosinophils % 12.0 H Neutrophils # 1.7 Lymphocytes # 1.9 Monocytes # 0.8 Eosinophils # 0.6 H Clumped Platelets FEW Sodium Level 138 Potassium Level 4.7 Chloride Level 100 Carbon Dioxide Level 27 Anion Gap 16 # Blood Urea Nitrogen 19 Creatinine 0.89 Glucose Level 83 Calcium Level 8.7 Medications Medications Current Medications Pantoprazole (Protonix Iv) 40 mg BID@18 IV Last administered on 12/31/16 05: 05; Admin Dose 40 MG; Start 12/09/16 at 06:00 Acetaminophen (Tylenol Supp) 650 mg Q4H PRN [place] PAIN OR TEMP ABOVE 38C; Start at 20:30 Morphine Sulfate (morphine) 2 mg Q4H PRN IV PAIN; Start 12/08/16 at 20:30 Collagenase (Santyl) 1 applic DAILY TOP Last administered on 12/30/16 09:00; Admin Dose 1 APPLIC; Start 12/09/16 at 09:00 Collagenase (Santyl) 1 applic PRN PRN TOP SOILED OR DISLODGED DRESSING; Start 12/09/16 at 04:30 Diazepam (Valium) 5 mg Q12H PRN IV ANXIETY Last administered on 12/09/16 23:41 ; Admin Dose 5 MG; Start 12/09/16 at 23:00 Ondansetron HCl (Zofran Inj) 4 mg Q4H PRN IV NAUSEA AND/OR VOMITING Last administered on 12/16/16 09:37; Admin Dose 4 MG; Start 12/10/16 at 17:00 Metoprolol Tartrate (Lopressor) 5 mg Q6H PRN IV SBP >160 or HR > 120 Last administered on 12/10/16 23:14; Admin Dose 5 MG; Start 12/10/16 at 17:00 Hydralazine HCl (Apresoline) 20 mg Q6H PRN IV SBP > 160 Last administered on 20:36; Admin Dose 20 MG; Start 12/10/16 at 17:00 IV Flush (NS 10 ml) 10 ml PRN PRN IV IV PROTOCOL; Start 12/15/16 at 15:30 IV Flush (NS 10 ml) 10 ml PRN PRN IV IV PROTOCOL; Start 12/16/16 at 18:00 Metoclopramide HCl (Reglan) 10 mg Q12 IV Last administered on 12/30/16 20:41; Admin Dose 10 MG; Start 12/24/16 at 13:00 Polyethylene Glycol (Miralax) 17 gm DAILY NGT Last administered on 12/30/16 10: 15; Admin Dose 17 GM; Start 12/25/16 at 15:00; Stop 12/31/16 at 23:00 Mineral Oil (Mineral Oil) 30 ml BID NGT Last administered on 12/30/16t 20:41; Admin Dose 30 ML; Start 12/28/16 at 21:00 LIZZY HECK M.D. Dec 31, 2016 10:28
[2016-12-31] MEDS: METOCLOPRAMIDE 10 MG INJ IV SCH ×2 (10:37→21:02)
[2016-12-31] MEDS: COLLAGENASE 30 GM TUBE TOP SCH (11:08)
--- NOTE | 2016-12-31 14:03 | PN ---
Date/Time of Note Date/Time of Note DATE: 12/31/16 TIME: 14:01 Assessment/Plan VTE Prophylaxis VTE Prophylaxis Intervention: SCD's Lines/Catheters IV Catheter Type (from [facility]): PICC Line Central line still needed: Yes Urinary Cath still in place: Yes Reason Cath still needed: urinary retention Assessment/Plan Chief Complaint/Hosp Course Patient had a bowel movement via colostomy after GoLYTELY, will be restarted on G-tube feeding, continue to monitor residual, remains hemodynamically stable. Assessment and plan: - Partial small bowel obstruction, resolved. Continue G-tube feeding. Dr. Teran is following patient in general surgery consultation. - Hypertension. Continue hydralazine. - S/p upper gastrointestinal bleed. Continue Protonix. Dr. Pryor is following in gastric gastroenterology consultation. - S/p sepsis secondary to healthcare acquired pneumonia. - Healthcare facility-acquired pneumonia. Continue antibiotics. Dr. Tang is following in infection disease consultation. - UTI.S/p treatment. 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 - Ventilator dependent respiratory failure with tracheostomy. Dr. Saenz is following in pulmonology consultation. - Chronic obstructive pulmonary disease. Continue breathing treatment. - Dysphagia. -Chronic Chaudhari catheter. -Colostomy -Bedbound status. Further recommendations based on clinical course. Plan of care discussed with Dr. Meeks. Problems: Exam/Review of Systems Vital Signs Vitals Vital Signs Date Time Temp Pulse Resp B/P Pulse Ox O2 Delivery O2 Flow Rate FiO2 12/31/16 12:00 81 12/31/16 11:50 98.4 20 156/83 95 12/31/16 11:24 30 Intake and Output 12/30/16 12/30/16 12/31/16 15:00 23:00 07:00 Intake Total 700 ml 200 ml Output Total 100 ml 500 ml 800 ml Balance -100 ml 200 ml -600 ml Exam Constitutional: frail, non-verbal Psych: confusion Head: normocephalic Eyes: nl conjunctiva ENMT: nl external ears & nose Neck: other (Tracheostomy), supple Respiratory: diminished breath sounds Cardiovascular: other (Atrial arrhythmia) Gastrointestinal: non-tender, other (colostomy), soft Genitourinary - Male: other (Chaudhari) Musculoskeletal: other (Contracted) Extremities: normal pulses Neurological: other (Chronic encephalopathy) Skin: other (Wounds) Results Result Diagram: 12/31/16 0546 12/31/16 0546 Results 24 hrs Laboratory Tests Test 12/31/16 05:46 White Blood Count 5.2 Red Blood Count 3.01 L Hemoglobin 8.7 L Hematocrit 26.1 L Mean Corpuscular Volume 86.7 Mean Corpuscular Hemoglobin 28.9 L Mean Corpuscular Hemoglobin Concent 33.3 Red Cell Distribution Width 16.3 H Platelet Count 179 Mean Platelet Volume Neutrophils % 33.0 L Band Neutrophils % 3.0 Lymphocytes % 37.0 Monocytes % 15.0 H Eosinophils % 12.0 H Neutrophils # 1.7 Lymphocytes # 1.9 Monocytes # 0.8 Eosinophils # 0.6 H Clumped Platelets FEW Sodium Level 138 Potassium Level 4.7 Chloride Level 100 Carbon Dioxide Level 27 Anion Gap 16 # Blood Urea Nitrogen 19 Creatinine 0.89 Glucose Level 83 Calcium Level 8.7 Medications Medications Current Medications Pantoprazole (Protonix Iv) 40 mg BID@ IV Last administered on 12/31/16 05: 05; Admin Dose 40 MG; Start 12/09/16 at 06:00 Acetaminophen (Tylenol Supp) 650 mg Q4H PRN [place] PAIN OR TEMP ABOVE 38C; Start at 20:30 Morphine Sulfate (morphine) 2 mg Q4H PRN IV PAIN; Start 12/08/16 at 20:30 Collagenase (Santyl) 1 applic DAILY TOP Last administered on 12/31/16 11:08; Admin Dose 1 APPLIC; Start 12/09/16 at 09:00 Collagenase (Santyl) 1 applic PRN PRN TOP SOILED OR DISLODGED DRESSING; Start 12/09/16 at 04:30 Diazepam (Valium) 5 mg Q12H PRN IV ANXIETY Last administered on 12/09/16 23:41 ; Admin Dose 5 MG; Start 12/09/16 at 23:00 Ondansetron HCl (Zofran Inj) 4 mg Q4H PRN IV NAUSEA AND/OR VOMITING Last administered on 12/16/16 09:37; Admin Dose 4 MG; Start 12/10/16 at 17:00 Metoprolol Tartrate (Lopressor) 5 mg Q6H PRN IV SBP >160 or HR > 120 Last administered on 12/10/16 23:14; Admin Dose 5 MG; Start 12/10/16 at 17:00 Hydralazine HCl (Apresoline) 20 mg Q6H PRN IV SBP > 160 Last administered on 20:36; Admin Dose 20 MG; Start 12/10/16 at 17:00 IV Flush (NS 10 ml) 10 ml PRN PRN IV IV PROTOCOL; Start 12/15/16 at 15:30 IV Flush (NS 10 ml) 10 ml PRN PRN IV IV PROTOCOL; Start 12/16/16 at 18:00 Metoclopramide HCl (Reglan) 10 mg Q12 IV Last administered on 12/31/16 10:37; Admin Dose 10 MG; Start 12/24/16 at 13:00 Polyethylene Glycol (Miralax) 17 gm DAILY NGT Last administered on 12/30/16 10: 15; Admin Dose 17 GM; Start 12/25/16 at 15:00; Stop 12/31/16 at 23:00 Mineral Oil (Mineral Oil) 30 ml BID NGT Last administered on 12/30/16 20:41; Admin Dose 30 ML; Start 12/28/16 at 21:00 AMY MORAN Dec 31, 2016 14:03
[2016-12-31] MEDS: hydrALAzine 20 MG INJ IV PRN (21:03)
[2017-01-01] VITALS (23 sets, daily range): BP systolic 132–197; BP diastolic 62–94; PULSE 67–105; RESP 16–22
[2017-01-01] MEDS: ALBUTEROL 18 GM INHALER INH SCH ×4 (01:36→20:01)
[2017-01-01] MEDS: IPRATROPIUM (HFA) 12.9 GM INHALER INH SCH ×4 (01:36→20:01)
[2017-01-01] MEDS: PANTOPRAZOLE 40 MG INJ IV SCH ×2 (05:28→18:55)
[2017-01-01 06:44] LABS: ADD SCAN DIFF NO
[2017-01-01 06:59] LABS: ABNORMAL IP MESSAGE 1; BASOPHILS % 0.3 % (0.0-2.0); EOSINOPHILS # 0.3 10^3/ul (0.0-0.5); EOSINOPHILS % 5.2 % (0.0-7.0); HEMATOCRIT 25.6 % (42.0-52.0); HEMOGLOBIN 8.6 g/dl (14.0-18.0); LYMPHOCYTES # 1.7 10^3/ul (0.8-2.9); LYMPHOCYTES % 28.3 % (15.0-51.0); MEAN CORPUSCULAR HEMOGLOBIN 28.9 pg (29.0-33.0); MEAN CORPUSCULAR HGB CONC 33.6 g/dl (32.0-37.0); MEAN CORPUSCULAR VOLUME 85.9 fl (82.0-101.0); MONOCYTE # 0.9 10^3/ul (0.3-0.9); MONOCYTES % 15.7 % (0.0-11.0); NEUTROPHILS % 50.3 % (39.0-77.0); PLATELET COUNT 187 10^3/UL (140-415); RED BLOOD COUNT 2.98 10^6/ul (4.70-6.10); RED CELL DISTRIBUTION WIDTH 16.2 % (11.5-14.5); WHITE BLOOD COUNT 5.9 10^3/ul (4.8-10.8)
[2017-01-01 07:09] LABS: CALCIUM 8.8 mg/dl (8.4-10.2)
[2017-01-01] MEDS: MINERAL OIL 30ML CUP NGT SCH ×2 (09:29→21:04)
[2017-01-01] MEDS: METOCLOPRAMIDE 10 MG INJ IV SCH ×2 (09:29→21:04)
[2017-01-01] MEDS: COLLAGENASE 30 GM TUBE TOP SCH (09:29)
--- NOTE | 2017-01-01 15:26 | PN ---
Date/Time of Note Date/Time of Note DATE: 01/01/17 TIME: 15:23 Assessment/Plan VTE Prophylaxis VTE Prophylaxis Intervention: other Lines/Catheters IV [facility] P[facility] Line Urinary Cath still in place: Yes Assessment/Plan Assessment/Plan - Partial small bowel obstruction, resolved. Continue G-tube feeding. Dr. Teran is following patient in general surgery consultation. - Hypertension. Continue hydralazine. - S/p upper gastrointestinal bleed. Continue Protonix. Dr. Pryor is following in gastric gastroenterology consultation. - S/p sepsis secondary to healthcare acquired pneumonia. - Healthcare facility-acquired pneumonia. Continue antibiotics. Dr. Tang is following in infection disease consultation. - UTI.S/p treatment. 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 - Ventilator dependent respiratory failure with tracheostomy. Dr. Saenz is following in pulmonology consultation. - Chronic obstructive pulmonary disease. Continue breathing treatment. - Dysphagia. -Chronic Chaudhari catheter. -Colostomy -Bedbound status. Further recommendations based on clinical course. Plan of care discussed with Dr. Meeks. Subjective 24 Hr Interval Summary Constitutional: requiring IVF, requiring O2 Exam/Review of Systems Vital Signs Vitals Vital Signs Date Time Temp Pulse Resp B/P Pulse Ox O2 Delivery O2 Flow Rate FiO2 01/01/17 13:10 81 16 96 35 01/01/17 11:46 98.3 132/76 Intake and Output 12/31/16 12/31/16 01/01/17 15:00 23:00 07:00 Intake Total 700 ml 850 ml Output Total 800 ml 800 ml Balance -100 ml 50 ml Exam Constitutional: non-verbal Respiratory: diminished breath sounds, normal air movement Cardiovascular: nl pulses, regular rate and rhythm Gastrointestinal: non-tender, other, soft Neurological: lethargic Skin: other Lymph: nontender Results Result Diagram: 01/01/17 0555 01/01/17 0555 Results 24 hrs Laboratory Tests Test 01/01/17 05:55 White Blood Count 5.9 Red Blood Count 2.98 L Hemoglobin 8.6 L Hematocrit 25.6 L Mean Corpuscular Volume 85.9 Mean Corpuscular Hemoglobin 28.9 L Mean Corpuscular Hemoglobin Concent 33.6 Red Cell Distribution Width 16.2 H Platelet Count 187 Mean Platelet Volume Neutrophils % 50.3 Lymphocytes % 28.3 Monocytes % 15.7 H Eosinophils % 5.2 Basophils % 0.3 Nucleated Red Blood Cells % 0.0 Neutrophils # 3.0 Lymphocytes # 1.7 Monocytes # 0.9 Eosinophils # 0.3 Basophils # 0.0 Nucleated Red Blood Cells # 0.0 Sodium Level 140 Potassium Level 4.0 Chloride Level 103 Carbon Dioxide Level 29 Anion Gap 12 Blood Urea Nitrogen 18 Creatinine 1.00 Glucose Level 93 Calcium Level 8.8 Medications Medications Current Medications Pantoprazole (Protonix Iv) 40 mg BID@,18 IV Last administered on 01/01/17 05: 28; Admin Dose 40 MG; Start 12/09/16 at 06:00 Acetaminophen (Tylenol Supp) 650 mg Q4H PRN [place] PAIN OR TEMP ABOVE 38C; Start at 20:30 Morphine Sulfate (morphine) 2 mg Q4H PRN IV PAIN; Start 12/08/16 at 20:30 Collagenase (Santyl) 1 applic DAILY TOP Last administered on 01/01/17 09:29; Admin Dose 1 APPLIC; Start 12/09/16 at 09:00 Collagenase (Santyl) 1 applic PRN PRN TOP SOILED OR DISLODGED DRESSING; Start 12/09/16 at 04:30 Diazepam (Valium) 5 mg Q12H PRN IV ANXIETY Last administered on 12/09/16 23:41 ; Admin Dose 5 MG; Start 12/09/16 at 23:00 Ondansetron HCl (Zofran Inj) 4 mg Q4H PRN IV NAUSEA AND/OR VOMITING Last administered on 12/16/16 09:37; Admin Dose 4 MG; Start 12/10/16 at 17:00 Metoprolol Tartrate (Lopressor) 5 mg Q6H PRN IV SBP >160 or HR > 120 Last administered on 12/10/16 23:14; Admin Dose 5 MG; Start 12/10/16 at 17:00 Hydralazine HCl (Apresoline) 20 mg Q6H PRN IV SBP > 160 Last administered on 21:03; Admin Dose 20 MG; Start 12/10/16 at 17:00 IV Flush (NS 10 ml) 10 ml PRN PRN IV IV PROTOCOL; Start 12/15/16 at 15:30 IV Flush (NS 10 ml) 10 ml PRN PRN IV IV PROTOCOL; Start 12/16/16 at 18:00 Metoclopramide HCl (Reglan) 10 mg Q12 IV Last administered on 01/01/17 09:29; Admin Dose 10 MG; Start 12/24/16 at 13:00 Mineral Oil (Mineral Oil) 30 ml BID NGT Last administered on 01/01/17 09:29; Admin Dose 30 ML; Start 12/28/16 at 21:00 MARIO ROWE Jan 01, 2017 15:26
--- NOTE | 2017-01-01 16:39 | CONS ---
RONNIE DICKENS 01/01/17 1639: Date/Time of Note Date/Time of Note DATE: 01/01/17 TIME: 16:39 Assessment/Plan Assessment/Plan Additional Assessment/Plan - s/p severe sepsis due to HCAP - HCAP/VAP due to kleb (KPC) and pseudo - UTI due to acineto and pseudo related to chronic indwelling Vincent - multiple pressure ulcer - recurrent infection of ulcer of RLE due to MRSA and pseudo. 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 the wound culture grew carbapenemase producing kleb, enterococci and pseudo - Dysphagia s/p EGD and new G tube placement 09/15/2016 - h/o infection of wound of RLE due to pseudomonas. 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 - h/o thrush - HCV infection - post colostomy status - G tube migration (extraluminal per CT) s/p G tube removal 12/11/2016 - possible recurrent SBO per CT on 12/10/2016 - ileus - recurrent leukocytosis likely reactive from multiple emesis on 12/10/2016 & (remains afebrile) - MRSA nasal colonization - treated with Mupirocin 12/12/2016-12/22/2016 - Note: S/p tobramycin (12/12/2016-12/18/2016) for pseudomonas and acinetobacter, Cefepime (12/12/2016-12/21/2016) for KPC in sputum, and Linezolid (12/12/2016-2016) for MRSA recommendations: - wound care - repeat casanova cultures if temp >100.4F - continue to monitor Pt off abx - contact isolation for MRSA - droplet precautions for KPC in his respiratory tract - CBC, BMP, CXR in AM d/w Dr Godfrey Consultation Date/Type/Reason Admit Date/Time December 08, 2016 at 12:01 Initial Consult Date 12/10/16 Type of Consultation: ID Referring Provider: MARLA AKBAR MD 24 HR Interval Summary Free Text/Dictation obtunded. Little change Subjective hx not possible: pt non-verbal Constitutional: requiring O2 Exam/Review of Systems Vital Signs Vitals Vital Signs Date Time Temp Pulse Resp B/P Pulse Ox O2 Delivery O2 Flow Rate FiO2 01/01/17 16:28 85 01/01/17 15:38 98.8 18 138/75 96 01/01/17 15:10 35 Intake and Output 12/31/16 12/31/16 01/01/17 15:00 23:00 07:00 Intake Total 700 ml 850 ml Output Total 800 ml 800 ml Balance -100 ml 50 ml Exam Constitutional: frail Neck: other (trach) Respiratory: clear to auscultation Cardiovascular: regular rate and rhythm Gastrointestinal: bowel sounds, non-tender, other (colostomy bag present.), soft Genitourinary - Male: other (vincent present--o/p clear) Musculoskeletal: other (muscular atrophy) Results Result Diagram: 01/01/17 0555 01/01/17 0555 Results 24 hrs Laboratory Tests Test 01/01/17 05:55 White Blood Count 5.9 Red Blood Count 2.98 L Hemoglobin 8.6 L Hematocrit 25.6 L Mean Corpuscular Volume 85.9 Mean Corpuscular Hemoglobin 28.9 L Mean Corpuscular Hemoglobin Concent 33.6 Red Cell Distribution Width 16.2 H Platelet Count 187 Mean Platelet Volume Neutrophils % 50.3 Lymphocytes % 28.3 Monocytes % 15.7 H Eosinophils % 5.2 Basophils % 0.3 Nucleated Red Blood Cells % 0.0 Neutrophils # 3.0 Lymphocytes # 1.7 Monocytes # 0.9 Eosinophils # 0.3 Basophils # 0.0 Nucleated Red Blood Cells # 0.0 Sodium Level 140 Potassium Level 4.0 Chloride Level 103 Carbon Dioxide Level 29 Anion Gap 12 Blood Urea Nitrogen 18 Creatinine 1.00 Glucose Level 93 Calcium Level 8.8 Medications Medications Current Medications Pantoprazole (Protonix Iv) 40 mg BID@,18 IV Last administered on 01/01/17 05: 28; Admin Dose 40 MG; Start 12/09/16 at 06:00 Acetaminophen (Tylenol Supp) 650 mg Q4H PRN [place] PAIN OR TEMP ABOVE 38C; Start at 20:30 Morphine Sulfate (morphine) 2 mg Q4H PRN IV PAIN; Start 12/08/16 at 20:30 Collagenase (Santyl) 1 applic DAILY TOP Last administered on 01/01/17 09:29; Admin Dose 1 APPLIC; Start 12/09/16 at 09:00 Collagenase (Santyl) 1 applic PRN PRN TOP SOILED OR DISLODGED DRESSING; Start 12/09/16 at 04:30 Diazepam (Valium) 5 mg Q12H PRN IV ANXIETY Last administered on 12/09/16 23:41 ; Admin Dose 5 MG; Start 12/09/16 at 23:00 Ondansetron HCl (Zofran Inj) 4 mg Q4H PRN IV NAUSEA AND/OR VOMITING Last administered on 12/16/16 09:37; Admin Dose 4 MG; Start 12/10/16 at 17:00 Metoprolol Tartrate (Lopressor) 5 mg Q6H PRN IV SBP >160 or HR > 120 Last administered on 12/10/16 23:14; Admin Dose 5 MG; Start 12/10/16 at 17:00 Hydralazine HCl (Apresoline) 20 mg Q6H PRN IV SBP > 160 Last administered on 21:03; Admin Dose 20 MG; Start 12/10/16 at 17:00 IV Flush (NS 10 ml) 10 ml PRN PRN IV IV PROTOCOL; Start 12/15/16 at 15:30 IV Flush (NS 10 ml) 10 ml PRN PRN IV IV PROTOCOL; Start 12/16/16 at 18:00 Metoclopramide HCl (Reglan) 10 mg Q12 IV Last administered on 01/01/17 09:29; Admin Dose 10 MG; Start 12/24/16 at 13:00 Mineral Oil (Mineral Oil) 30 ml BID NGT Last administered on 01/01/17 09:29; Admin Dose 30 ML; Start 12/28/16 at 21:00 LIZZY GODFREY M.D. 01/02/17 1110: Assessment/Plan Assessment/Plan Additional Assessment/Plan Bekah attestation: I discussed the management with TERESSA Dickens and agree with above Exam/Review of Systems Results Result Diagram: 01/01/17 0555 01/01/17 0555 RONNIE DICKENS Jan 01, 2017 16:39 LIZZY GODFREY M.D. Jan 02, 2017 11:10
[2017-01-02] VITALS (22 sets, daily range): BP systolic 123–154; BP diastolic 63–88; PULSE 60–84; RESP 16–30
[2017-01-02] MEDS: ALBUTEROL 18 GM INHALER INH SCH ×3 (01:28→20:25)
[2017-01-02] MEDS: IPRATROPIUM (HFA) 12.9 GM INHALER INH SCH ×4 (01:28→20:25)
[2017-01-02] MEDS: PANTOPRAZOLE 40 MG INJ IV SCH ×2 (07:05→18:27)
[2017-01-02 07:12] LABS: ADD SCAN DIFF NO
[2017-01-02 07:13] LABS: ABNORMAL IP MESSAGE 1; BASOPHILS % 0.3 % (0.0-2.0); EOSINOPHILS % 12.9 % (0.0-7.0); HEMATOCRIT 24.8 % (42.0-52.0); HEMOGLOBIN 8.2 g/dl (14.0-18.0); LYMPHOCYTES # 2.2 10^3/ul (0.8-2.9); LYMPHOCYTES % 28.8 % (15.0-51.0); MEAN CORPUSCULAR HEMOGLOBIN 29.4 pg (29.0-33.0); MEAN CORPUSCULAR HGB CONC 33.1 g/dl (32.0-37.0); MEAN CORPUSCULAR VOLUME 88.9 fl (82.0-101.0); MEAN PLATELET VOLUME 13.2 fl (7.4-10.4); MONOCYTE # 1.1 10^3/ul (0.3-0.9); MONOCYTES % 13.8 % (0.0-11.0); NEUTROPHIL # 3.4 10^3/ul (1.6-7.5); NEUTROPHILS % 43.9 % (39.0-77.0); PLATELET COUNT 183 10^3/UL (140-415); RED BLOOD COUNT 2.79 10^6/ul (4.70-6.10); RED CELL DISTRIBUTION WIDTH 16.5 % (11.5-14.5); WHITE BLOOD COUNT 7.6 10^3/ul (4.8-10.8)
[2017-01-02 07:42] LABS: CREATININE 0.91 mg/dl (0.61-1.24); POTASSIUM 4.1 mmol/L (3.5-5.1)
[2017-01-02] MEDS: METOCLOPRAMIDE 10 MG INJ IV SCH ×2 (08:32→21:54)
[2017-01-02] MEDS: MINERAL OIL 30ML CUP NGT SCH ×2 (08:32→21:54)
[2017-01-02] MEDS: COLLAGENASE 30 GM TUBE TOP SCH (08:33)
--- NOTE | 2017-01-02 10:39 | RADRPT ---
PROCEDURE: XR Abdomen. CLINICAL INDICATION: Abdominal pain. Clearance of contrast from colon. TECHNIQUE: AP abdomen x-ray. COMPARISON: 12/28/2016 FINDINGS: There is a nonobstructive bowel gas pattern. Mild ileus may be present. Nasogastric tube is in robin ce with tip in the stomach. There is no evidence of free air. There is no identified contrast in t he colon from prior small bowel series. There is mild dextrocurvature and degenerative spondylosis of the lumbar spine. The osseous structures are unremarkable. IMPRESSION: Nonobstructive bowel gas pattern suggestive of mild ileus. Nasogastric tube in place. RPTAT: QQ .Germán German MD, MD Date Time Electronically viewed and signed by .Germán German MD, MD on 01/02/2017 10:38 .L/
--- NOTE | 2017-01-02 10:40 | RADRPT ---
PROCEDURE: XR Chest. CLINICAL INDICATION: Respiratory failure TECHNIQUE: Single frontal chest x-ray. COMPARISON: 12/27/2016 FINDINGS: Mild hazy opacity seen in the right upper to mid lung field possibly artifactual versus early infilt rates. The right costophrenic angle is obscured by artifacts. There are no significant pleural eff usions.. Tracheostomy tube, nasogastric tube and right arm PICC line are in place unchanged.. The c ardiomediastinal silhouette is unremarkable. The osseous structures are intact. IMPRESSION: Tubes and lines unchanged. Mild right upper lung infiltrate versus artifact. Recommend follow-up.. RPTAT: QQ .Germán German MD, Date Time Electronically viewed and signed by .Germán German MD, on 01/02/2017 10:40 .L/
--- NOTE | 2017-01-02 12:48 | CONS ---
Date/Time of Note Date/Time of Note DATE: 01/02/17 TIME: 12:46 Assessment/Plan Assessment/Plan Chief Complaint/Hosp Course - s/p severe sepsis due to HCAP - HCAP/VAP due to kleb (KPC) and pseudo - UTI due to acineto and pseudo related to chronic indwelling Chaudhari - multiple pressure ulcer - recurrent infection of ulcer of RLE due to MRSA and pseudo. 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 the wound culture grew carbapenemase producing kleb, enterococci and pseudo - Dysphagia s/p EGD and new G tube placement 09/15/2016 - h/o infection of wound of RLE due to pseudomonas. 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/11/2016 - possible recurrent SBO per CT on 12/10/2016 - ileus - recurrent leukocytosis likely reactive from multiple emesis on 12/10/2016 & (remains afebrile) - MRSA nasal colonization - treated with Mupirocin 12/12/2016-12/22/2016 - Note: S/p tobramycin (12/12/2016-12/18/2016) for pseudomonas and acinetobacter, Cefepime (12/12/2016-12/21/2016) for KPC in sputum, and Linezolid (12/12/2016-2016) for MRSA recommendations: - wound care - repeat casanova cultures if temp >100.4F - continue to monitor Pt off abx - contact isolation for MRSA - droplet precautions for KPC in his respiratory tract Problems: Consultation Date/Type/Reason Admit Date/Time December 08, 2016 at 12:01 Initial Consult Date 12/10/16 Type of Consultation: ID Referring Provider: MARLA AKBAR MD 24 HR Interval Summary Subjective hx not possible: pt non-verbal Exam/Review of Systems Vital Signs Vitals Vital Signs Date Time Temp Pulse Resp B/P Pulse Ox O2 Delivery O2 Flow Rate FiO2 01/02/17 12:09 76 01/02/17 11:56 98.0 18 154/88 99 01/02/17 11:15 30 Intake and Output 01/01/17 01/01/17 01/02/17 15:00 23:00 07:00 Intake Total 800 ml Output Total 450 ml Balance 350 ml Exam Constitutional: frail, non-verbal Psych: confusion Head: other (b/l temporal wasting) Eyes: nl conjunctiva, nl lids ENMT: nl external ears & nose, other (NGT) Neck: other (tracheostomy) Respiratory: diminished breath sounds Cardiovascular: nl pulses, regular rate and rhythm Gastrointestinal: non-tender, other (former G tube site is dressed, +colostoomy ), soft Genitourinary - Male: nl penis, nl scrotum Musculoskeletal: other (contracured and rigit UE b/l) Extremities: No edema Neurological: lethargic Skin: rash or lesions (superficial skin breakdown on RLE, elbows) Results Result Diagram: 01/02/17 0605 01/02/17 0605 Results 24 hrs Laboratory Tests Test 01/02/17 06:05 White Blood Count 7.6 # Red Blood Count 2.79 L Hemoglobin 8.2 L Hematocrit 24.8 L Mean Corpuscular Volume 88.9 Mean Corpuscular Hemoglobin 29.4 Mean Corpuscular Hemoglobin Concent 33.1 Red Cell Distribution Width 16.5 H Platelet Count 183 Mean Platelet Volume 13.2 H Neutrophils % 43.9 Lymphocytes % 28.8 Monocytes % 13.8 H Eosinophils % 12.9 H Basophils % 0.3 Nucleated Red Blood Cells % 0.0 Neutrophils # 3.4 Lymphocytes # 2.2 Monocytes # 1.1 H Eosinophils # 1.0 H Basophils # 0.0 Nucleated Red Blood Cells # 0.0 Sodium Level 141 Potassium Level 4.1 Chloride Level 104 Carbon Dioxide Level 29 Anion Gap 12 Blood Urea Nitrogen 16 Creatinine 0.91 Glucose Level 99 Calcium Level 9.0 Medications Medications Current Medications Pantoprazole (Protonix Iv) 40 mg BID@06,18 IV Last administered on 01/02/17 07: 05; Admin Dose 40 MG; Start 12/09/16 at 06:00 Acetaminophen (Tylenol Supp) 650 mg Q4H PRN [place] PAIN OR TEMP ABOVE 38C; Start at 20:30 Morphine Sulfate (morphine) 2 mg Q4H PRN IV PAIN; Start 12/08/16 at 20:30 Collagenase (Santyl) 1 applic DAILY TOP Last administered on 01/02/17 08:33; Admin Dose 1 APPLIC; Start 12/09/16 at 09:00 Collagenase (Santyl) 1 applic PRN PRN TOP SOILED OR DISLODGED DRESSING; Start 12/09/16 at 04:30 Diazepam (Valium) 5 mg Q12H PRN IV ANXIETY Last administered on 12/09/16 23:41 ; Admin Dose 5 MG; Start 12/09/16 at 23:00 Ondansetron HCl (Zofran Inj) 4 mg Q4H PRN IV NAUSEA AND/OR VOMITING Last administered on 12/16/16 09:37; Admin Dose 4 MG; Start 12/10/16 at 17:00 Metoprolol Tartrate (Lopressor) 5 mg Q6H PRN IV SBP >160 or HR > 120 Last administered on 12/10/16 23:14; Admin Dose 5 MG; Start 12/10/16 at 17:00 Hydralazine HCl (Apresoline) 20 mg Q6H PRN IV SBP > 160 Last administered on 21:03; Admin Dose 20 MG; Start 12/10/16 at 17:00 IV Flush (NS 10 ml) 10 ml PRN PRN IV IV PROTOCOL; Start 12/15/16 at 15:30 IV Flush (NS 10 ml) 10 ml PRN PRN IV IV PROTOCOL; Start 12/16/16 at 18:00 Metoclopramide HCl (Reglan) 10 mg Q12 IV Last administered on 01/02/17 08:32; Admin Dose 10 MG; Start 12/24/16 at 13:00 Mineral Oil (Mineral Oil) 30 ml BID NGT Last administered on 01/02/17t 08:32; Admin Dose 30 ML; Start 12/28/16 at 21:00 LIZZY HECK M.D. Jan 02, 2017 12:48
--- NOTE | 2017-01-02 15:43 | PN ---
DATE: 01/02/2017 SUBJECTIVE: No communication, nonverbal. OBJECTIVE GENERAL: Patient is on ventilator, eyes closed, no response to verbal stimuli or painful stimuli. VITAL SIGNS: Temperature 98.6, heart rate today has been fluctuating between 69 and 120, respiratio ns 17 to 19, blood pressure 130/63, saturation 99% on FIO2 30% on the ventilator. ABDOMEN: Mildly distended but quite soft, bowel sounds present 3+/4+. The real colostomy bag is 1/ 3 full of greenish semi liquid stool. Tube feeding is running. EXTREMITIES: Legs, no pitting edema, no calf swelling. LABORATORY DATA: WBC 7600 with 44% neutrophils. Hemoglobin 8.2, hematocrit 24. Chemistry: Sodium normal, potassium normal, BUN normal, and creatinine normal. ASSESSMENT: A 71-year-old admitted for medical problems and GI bleeding. There is concern about a small bowel obstruction. We investigated that which showed that there was no obstruction. The gretchen ent was started on tube feeding, but for 7 days did not have any bowel movement. We repeated that o ne again. Today and yesterday, patient has had bowel movements through the colostomy. PLAN: Continue current care. Continue tube feeding. Other medical problems to be addressed by the appropriate consultants and PCP. Dictated By: VANIA MAE MD PS/MACK Conf#: [id number] DID#: [id number]
--- NOTE | 2017-01-02 16:13 | PN ---
Date/Time of Note Date/Time of Note DATE: 01/02/17 TIME: 16:12 Assessment/Plan Lines/Catheters IV Catheter Type (from Nrs): PICC Line Central line still needed: Yes Urinary Cath still in place: Yes Reason Cath still needed: urinary retention Assessment/Plan Assessment/Plan - Partial small bowel obstruction, resolved. Continue G-tube feeding. Dr. Teran is following patient in general surgery consultation. - Hypertension. Continue hydralazine. - S/p upper gastrointestinal bleed. Continue Protonix. Dr. Pryor is following in gastric gastroenterology consultation. - S/p sepsis secondary to healthcare acquired pneumonia. - Healthcare facility-acquired pneumonia. Continue antibiotics. Dr. Tang is following in infection disease consultation. - UTI.S/p treatment. 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 - Ventilator dependent respiratory failure with tracheostomy. Dr. Saenz is following in pulmonology consultation. - Chronic obstructive pulmonary disease. Continue breathing treatment. - Dysphagia. -Chronic Chaudhari catheter. -Colostomy -Bedbound status. Further recommendations based on clinical course. Plan of care discussed with Dr. Meeks. Subjective 24 Hr Interval Summary Free Text/Dictation nad, afebrile, tolerat GT feeding, dw staff- no new issues reported. Constitutional: requiring IVF, requiring O2 Exam/Review of Systems Vital Signs Vitals Vital Signs Date Time Temp Pulse Resp B/P Pulse Ox O2 Delivery O2 Flow Rate FiO2 01/02/17 15:20 75 16 98 35 01/02/17 11:56 98.0 154/88 Intake and Output 01/01/17 01/01/17 01/02/17 15:00 23:00 07:00 Intake Total 800 ml Output Total 450 ml Balance 350 ml Exam Constitutional: non-verbal Neck: non-tender, supple Respiratory: clear to auscultation, normal air movement Cardiovascular: nl pulses, regular rate and rhythm Gastrointestinal: non-tender, other, soft Musculoskeletal: muscle weakness Extremities: normal pulses Neurological: unresponsive Skin: other Lymph: nontender, other Results Result Diagram: 01/02/17 0605 01/02/17 06 Results 24 hrs Laboratory Tests Test 01/02/17 06:05 White Blood Count 7.6 # Red Blood Count 2.79 L Hemoglobin 8.2 L Hematocrit 24.8 L Mean Corpuscular Volume 88.9 Mean Corpuscular Hemoglobin 29.4 Mean Corpuscular Hemoglobin Concent 33.1 Red Cell Distribution Width 16.5 H Platelet Count 183 Mean Platelet Volume 13.2 H Neutrophils % 43.9 Lymphocytes % 28.8 Monocytes % 13.8 H Eosinophils % 12.9 H Basophils % 0.3 Nucleated Red Blood Cells % 0.0 Neutrophils # 3.4 Lymphocytes # 2.2 Monocytes # 1.1 H Eosinophils # 1.0 H Basophils # 0.0 Nucleated Red Blood Cells # 0.0 Sodium Level 141 Potassium Level 4.1 Chloride Level 104 Carbon Dioxide Level 29 Anion Gap 12 Blood Urea Nitrogen 16 Creatinine 0.91 Glucose Level 99 Calcium Level 9.0 Medications Medications Current Medications Pantoprazole (Protonix Iv) 40 mg BID@,18 IV Last administered on 01/02/17 07: 05; Admin Dose 40 MG; Start 12/09/16 at 06:00 Acetaminophen (Tylenol Supp) 650 mg Q4H PRN [place] PAIN OR TEMP ABOVE 38C; Start at 20:30 Morphine Sulfate (morphine) 2 mg Q4H PRN IV PAIN; Start 12/08/16 at 20:30 Collagenase (Santyl) 1 applic DAILY TOP Last administered on 01/02/17 08:33; Admin Dose 1 APPLIC; Start 12/09/16 at 09:00 Collagenase (Santyl) 1 applic PRN PRN TOP SOILED OR DISLODGED DRESSING; Start 12/09/16 at 04:30 Diazepam (Valium) 5 mg Q12H PRN IV ANXIETY Last administered on 12/09/16 23:41 ; Admin Dose 5 MG; Start 12/09/16 at 23:00 Ondansetron HCl (Zofran Inj) 4 mg Q4H PRN IV NAUSEA AND/OR VOMITING Last administered on 12/16/16 09:37; Admin Dose 4 MG; Start 12/10/16 at 17:00 Metoprolol Tartrate (Lopressor) 5 mg Q6H PRN IV SBP >160 or HR > 120 Last administered on 12/10/16 23:14; Admin Dose 5 MG; Start 12/10/16 at 17:00 Hydralazine HCl (Apresoline) 20 mg Q6H PRN IV SBP > 160 Last administered on 21:03; Admin Dose 20 MG; Start 12/10/16 at 17:00 IV Flush (NS 10 ml) 10 ml PRN PRN IV IV PROTOCOL; Start 12/15/16 at 15:30 IV Flush (NS 10 ml) 10 ml PRN PRN IV IV PROTOCOL; Start 12/16/16 at 18:00 Metoclopramide HCl (Reglan) 10 mg Q12 IV Last administered on 01/02/17 08:32; Admin Dose 10 MG; Start 12/24/16 at 13:00 Mineral Oil (Mineral Oil) 30 ml BID NGT Last administered on 01/02/17 08:32; Admin Dose 30 ML; Start 12/28/16 at 21:00 MARIO ROWE Jan 02, 2017 16:13
[2017-01-03] VITALS (24 sets, daily range): BP systolic 129–153; BP diastolic 75–89; PULSE 60–103; RESP 16–25
[2017-01-03] MEDS: IPRATROPIUM (HFA) 12.9 GM INHALER INH SCH ×4 (01:14→20:11)
[2017-01-03] MEDS: ALBUTEROL 18 GM INHALER INH SCH ×4 (01:14→20:11)
[2017-01-03] MEDS: PANTOPRAZOLE 40 MG INJ IV SCH ×2 (06:33→18:14)
[2017-01-03 07:08] LABS: ADD SCAN DIFF NO
[2017-01-03 07:30] LABS: ABNORMAL IP MESSAGE 1; HEMATOCRIT 27.5 % (42.0-52.0); MEAN CORPUSCULAR HEMOGLOBIN 29.2 pg (29.0-33.0); MEAN CORPUSCULAR HGB CONC 32.7 g/dl (32.0-37.0); MEAN CORPUSCULAR VOLUME 89.3 fl (82.0-101.0); MEAN PLATELET VOLUME 14.3 fl (7.4-10.4); PLATELET COUNT 235 10^3/UL (140-415); RED BLOOD COUNT 3.08 10^6/ul (4.70-6.10); RED CELL DISTRIBUTION WIDTH 16.3 % (11.5-14.5); WHITE BLOOD COUNT 6.7 10^3/ul (4.8-10.8)
[2017-01-03 07:56] LABS: CALCIUM 9.1 mg/dl (8.4-10.2); CREATININE 0.91 mg/dl (0.61-1.24); POTASSIUM 4.3 mmol/L (3.5-5.1)
--- NOTE | 2017-01-03 09:06 | PN ---
DATE: 01/01/2017 SUBJECTIVE: No communication. The patient is nonverbal, nonresponsive to verbal or painful stimuli. The patient is on the ventilator. OBJECTIVE: VITAL SIGNS: Temperature 98.3, heart rate 70 and regular, respirations 16, blood pressure 132/77, saturation 96% on FIO2 of 35% on the ventilator. LABORATORY: WBC 5,900 with 50% neutrophils, hemoglobin 8.6, hematocrit 25.6. Chemistry: Sodium and potassium normal. BUN and creatinine normal. Abdomen is not distended, is soft. At this time there is no stool in the colostomy bag, but unfortunately on the chart recording it does not mention that the patient has any stool in the past 24 hours, but on the round that I made yesterday, namely on 12/31/2016 at 1:00 p.m., the colostomy bag which is on the diverting colostomy was absolutely full of semi-liquid stool, greenish in color. My estimation was that was about 800 mL. So this means that the GoLYTELY has been effective and has made all the remaining stool in the colon to be emptied into the colostomy bag. That is why he will be continued on tube feeding. I mentioned this matter to the charge nurse today on 01/01/2017 that the colostomy bag is not mentioned on the list of ins and outs in the computer. She is going to explain to the nurses to make sure they document the drainage in the colostomy bag. Dictated By: VANIA MAE MD PS/NTS Conf#: [id number] DID#: [id number] MTDD
[2017-01-03] MEDS: MINERAL OIL 30ML CUP NGT SCH (10:45)
[2017-01-03] MEDS: METOCLOPRAMIDE 10 MG INJ IV SCH ×2 (10:45→20:38)
[2017-01-03] MEDS: COLLAGENASE 30 GM TUBE TOP SCH (10:45)
[2017-01-03 11:11] LABS: EOSINOPHILS # 0.9 10^3/ul (0.0-0.5); LYMPHOCYTES # 1.9 10^3/ul (0.8-2.9); MONOCYTE # 1.6 10^3/ul (0.3-0.9)
--- NOTE | 2017-01-03 13:22 | PN ---
DATE: 01/03/2017 SUBJECTIVE: No communication. The patient is nonverbal. OBJECTIVE GENERAL: Patient is on the ventilator. Eyes closed, nonresponse to verbal stimuli. No communication . NG tube for feeding purposes in place. Chaudhari catheter in place. VITAL SIGNS: Temperature 98.1, temperature 75, heart rate 70, respirations 151/89, saturation 96% o n 75% FIO2 on ventilator. ABDOMEN: Soft. LABORATORY DATA: WBC 6700, hemoglobin 9, hematocrit 26.5. BUN and creatinine, sodium and potassiu m are within normal limits. Tube feedings at 50 mL per hour is running. In the past 24 hours manuel rose has had 700 mL. Semi liquid stool through the colostomy bag. Greenish in color right now, ____ . ASSESSMENT AND PLAN: The patient's GI system is open. He is tolerating tube feeding. Last time he did not have bowel movement for 7 days and had to flush him with GoLYTELY and he responded, he open ed up. He is getting 80 mL of mineral oil b.i.d., I am going to cut it down to only per day, once da raj and also he is on Reglan 10 mg IV b.i.d., continue that one. Continue tube feeding. Other medical problems will be addressed with other colleagues. Dictated By: VANIA PINEDA/MACK Conf#: [id number] DID#: [id number]
--- NOTE | 2017-01-03 17:09 | PN ---
Date/Time of Note Date/Time of Note DATE: 01/03/17 TIME: 17:07 Assessment/Plan VTE Prophylaxis VTE Prophylaxis Intervention: SCD's Lines/Catheters IV Catheter Type (from Nrs): PICC Line Central line still needed: Yes Urinary Cath still in place: Yes Reason Cath still needed: urinary retention Assessment/Plan Chief Complaint/Hosp Course Patient had a bowel movement via colostomy yesterday, no BM per RN today, tolerated NG tube feeding. Will ask dr Pryor to reassess pt for possible GT reinsertion. Assessment and plan: - Partial small bowel obstruction, resolved. Continue G-tube feeding. Dr. Teran is following patient in general surgery consultation. - Hypertension. Continue hydralazine. - S/p upper gastrointestinal bleed. Continue Protonix. Dr. Pryor is following in gastric gastroenterology consultation. - S/p sepsis secondary to healthcare acquired pneumonia. - Healthcare facility-acquired pneumonia. Continue antibiotics. Dr. Tang is following in infection disease consultation. - UTI.S/p treatment. 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 - Ventilator dependent respiratory failure with tracheostomy. Dr. Saenz is following in pulmonology consultation. - Chronic obstructive pulmonary disease. Continue breathing treatment. - Dysphagia. -Chronic Chaudhari catheter. -Colostomy -Bedbound status. Further recommendations based on clinical course. Plan of care discussed with Dr. Meeks. Problems: Exam/Review of Systems Vital Signs Vitals Vital Signs Date Time Temp Pulse Resp B/P Pulse Ox O2 Delivery O2 Flow Rate FiO2 01/03/17 16:29 69 01/03/17 15:55 98.5 18 129/75 95 01/03/17 15:30 35 Intake and Output 01/02/17 01/02/17 01/03/17 15:00 23:00 07:00 Intake Total 800 ml 800 ml 800 ml Output Total 900 ml 800 ml 800 ml Balance -100 ml 0 ml 0 ml Exam Constitutional: frail, non-verbal Psych: confusion Head: normocephalic Eyes: nl conjunctiva ENMT: nl external ears & nose Neck: other (Tracheostomy), supple Respiratory: diminished breath sounds Cardiovascular: other (Atrial arrhythmia) Gastrointestinal: non-tender, other (colostomy), soft Genitourinary - Male: other (Chaudhari) Musculoskeletal: other (Contracted) Extremities: normal pulses Neurological: other (Chronic encephalopathy) Skin: other (Wounds) Results Result Diagram: 01/03/17 0540 01/03/17 0540 Results 24 hrs Laboratory Tests Test 01/03/17 05:40 White Blood Count 6.7 Red Blood Count 3.08 L Hemoglobin 9.0 L Hematocrit 27.5 L Mean Corpuscular Volume 89.3 Mean Corpuscular Hemoglobin 29.2 Mean Corpuscular Hemoglobin Concent 32.7 Red Cell Distribution Width 16.3 H Platelet Count 235 # Mean Platelet Volume 14.3 H Neutrophils % 30.0 L Band Neutrophils % 5.0 Lymphocytes % 28.0 Monocytes % 24.0 H Eosinophils % 13.0 H Neutrophils # 2.0 Lymphocytes # 1.9 Monocytes # 1.6 H Eosinophils # 0.9 H Sodium Level 142 Potassium Level 4.3 Chloride Level 105 Carbon Dioxide Level 29 Anion Gap 12 Blood Urea Nitrogen 15 Creatinine 0.91 Glucose Level 98 Calcium Level 9.1 Medications Medications Current Medications Pantoprazole (Protonix Iv) 40 mg BID@ IV Last administered on 01/03/17 06: 33; Admin Dose 40 MG; Start 12/09/16 at 06:00 Acetaminophen (Tylenol Supp) 650 mg Q4H PRN [place] PAIN OR TEMP ABOVE 38C; Start at 20:30 Morphine Sulfate (morphine) 2 mg Q4H PRN IV PAIN; Start 12/08/16 at 20:30 Collagenase (Santyl) 1 applic DAILY TOP Last administered on 01/03/17 10:45; Admin Dose 1 APPLIC; Start 12/09/16 at 09:00 Collagenase (Santyl) 1 applic PRN PRN TOP SOILED OR DISLODGED DRESSING; Start 12/09/16 at 04:30 Diazepam (Valium) 5 mg Q12H PRN IV ANXIETY Last administered on 12/09/16 23:41 ; Admin Dose 5 MG; Start 12/09/16 at 23:00 Ondansetron HCl (Zofran Inj) 4 mg Q4H PRN IV NAUSEA AND/OR VOMITING Last administered on 12/16/16 09:37; Admin Dose 4 MG; Start 12/10/16 at 17:00 Metoprolol Tartrate (Lopressor) 5 mg Q6H PRN IV SBP >160 or HR > 120 Last administered on 12/10/16 23:14; Admin Dose 5 MG; Start 12/10/16 at 17:00 Hydralazine HCl (Apresoline) 20 mg Q6H PRN IV SBP > 160 Last administered on 21:03; Admin Dose 20 MG; Start 12/10/16 at 17:00 IV Flush (NS 10 ml) 10 ml PRN PRN IV IV PROTOCOL; Start 12/15/16 at 15:30 IV Flush (NS 10 ml) 10 ml PRN PRN IV IV PROTOCOL; Start 12/16/16 at 18:00 Metoclopramide HCl (Reglan) 10 mg Q12 IV Last administered on 01/03/17 10:45; Admin Dose 10 MG; Start 12/24/16 at 13:00 Mineral Oil (Mineral Oil) 30 ml DAILY PO ; Start 01/04/17 at 09:00 AMY MORAN Jan 03, 2017 17:09
--- NOTE | 2017-01-03 18:23 | CONS ---
Date/Time of Note Date/Time of Note DATE: 01/03/17 TIME: 18:21 Assessment/Plan Assessment/Plan Chief Complaint/Hosp Course - severe sepsis due to HCAP - HCAP/VAP due to kleb (KPC) and pseudo - UTI due to acineto and pseudo related to chronic indwelling Chaudhari - multiple pressure ulcer - recurrent infection of ulcer of RLE due to MRSA and pseudo. 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 Diphtheroides colonizers - colonization with MDR organisms, including MRSA and KPC - recurrent UGIB - s/p severe sepsis due to HCAP - HCAP/VAP due to kleb (KPC) and pseudo - UTI due to acineto and pseudo related to chronic indwelling Chaudhari - multiple pressure ulcer - recurrent infection of ulcer of RLE due to MRSA and pseudo. 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 the wound culture grew carbapenemase producing kleb, enterococci and pseudo - Dysphagia s/p EGD and new G tube placement 09/15/2016 - h/o infection of wound of RLE due to pseudomonas. 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/11/2016 - possible recurrent SBO per CT on 12/10/2016 - ileus - recurrent leukocytosis likely reactive from multiple emesis on 12/10/2016 & (remains afebrile) - MRSA nasal colonization - treated with Mupirocin 12/12/2016-12/22/2016 - Note: S/p tobramycin (12/12/2016-12/18/2016) for pseudomonas and acinetobacter, Cefepime (12/12/2016-12/21/2016) for KPC in sputum, and Linezolid (12/12/2016-2016) for MRSA recommendations: - wound care - repeat casanova cultures if temp >100.4F - continue to monitor Pt off abx - contact isolation for MRSA - droplet precautions for KPC in his respiratory tract Problems: Consultation Date/Type/Reason Admit Date/Time December 08, 2016 at 12:01 Type of Consultation: ID Referring Provider: MARLA AKBAR MD Exam/Review of Systems Vital Signs Vitals Vital Signs Date Time Temp Pulse Resp B/P Pulse Ox O2 Delivery O2 Flow Rate FiO2 01/03/17 17:09 72 21 97 35 01/03/17 15:55 98.5 129/75 Intake and Output 01/02/17 01/02/17 01/03/17 15:00 23:00 07:00 Intake Total 800 ml 800 ml 800 ml Output Total 900 ml 800 ml 800 ml Balance -100 ml 0 ml 0 ml Exam Constitutional: non-verbal Psych: nl mood/affect, no complaints Head: atraumatic, normocephalic Eyes: EOMI, PERRL, nl conjunctiva, nl lids, nl sclera Respiratory: clear to auscultation, normal air movement Cardiovascular: nl pulses, regular rate and rhythm Gastrointestinal: nl liver, spleen, non-tender, soft Results Result Diagram: 01/03/17 0540 01/03/17 0540 Results 24 hrs Laboratory Tests Test 01/03/17 05:40 White Blood Count 6.7 Red Blood Count 3.08 L Hemoglobin 9.0 L Hematocrit 27.5 L Mean Corpuscular Volume 89.3 Mean Corpuscular Hemoglobin 29.2 Mean Corpuscular Hemoglobin Concent 32.7 Red Cell Distribution Width 16.3 H Platelet Count 235 # Mean Platelet Volume 14.3 H Neutrophils % 30.0 L Band Neutrophils % 5.0 Lymphocytes % 28.0 Monocytes % 24.0 H Eosinophils % 13.0 H Neutrophils # 2.0 Lymphocytes # 1.9 Monocytes # 1.6 H Eosinophils # 0.9 H Sodium Level 142 Potassium Level 4.3 Chloride Level 105 Carbon Dioxide Level 29 Anion Gap 12 Blood Urea Nitrogen 15 Creatinine 0.91 Glucose Level 98 Calcium Level 9.1 Medications Medications Current Medications Pantoprazole (Protonix Iv) 40 mg BID@ IV Last administered on 01/03/17 18: 14; Admin Dose 40 MG; Start 12/09/16 at 06:00 Acetaminophen (Tylenol Supp) 650 mg Q4H PRN [place] PAIN OR TEMP ABOVE 38C; Start at 20:30 Morphine Sulfate (morphine) 2 mg Q4H PRN IV PAIN; Start 12/08/16 at 20:30 Collagenase (Santyl) 1 applic DAILY TOP Last administered on 01/03/17 10:45; Admin Dose 1 APPLIC; Start 12/09/16 at 09:00 Collagenase (Santyl) 1 applic PRN PRN TOP SOILED OR DISLODGED DRESSING; Start 12/09/16 at 04:30 Diazepam (Valium) 5 mg Q12H PRN IV ANXIETY Last administered on 12/09/16 23:41 ; Admin Dose 5 MG; Start 12/09/16 at 23:00 Ondansetron HCl (Zofran Inj) 4 mg Q4H PRN IV NAUSEA AND/OR VOMITING Last administered on 12/16/16 09:37; Admin Dose 4 MG; Start 12/10/16 at 17:00 Metoprolol Tartrate (Lopressor) 5 mg Q6H PRN IV SBP >160 or HR > 120 Last administered on 12/10/16 23:14; Admin Dose 5 MG; Start 12/10/16 at 17:00 Hydralazine HCl (Apresoline) 20 mg Q6H PRN IV SBP > 160 Last administered on 21:03; Admin Dose 20 MG; Start 12/10/16 at 17:00 IV Flush (NS 10 ml) 10 ml PRN PRN IV IV PROTOCOL; Start 12/15/16 at 15:30 IV Flush (NS 10 ml) 10 ml PRN PRN IV IV PROTOCOL; Start 12/16/16 at 18:00 Metoclopramide HCl (Reglan) 10 mg Q12 IV Last administered on 01/03/17 10:45; Admin Dose 10 MG; Start 12/24/16 at 13:00 Mineral Oil (Mineral Oil) 30 ml DAILY PO ; Start 01/04/17 at 09:00 MARIBELL SUN MD Jan 03, 2017 18:23
[2017-01-04] VITALS (25 sets, daily range): BP systolic 133–195; BP diastolic 79–96; PULSE 60–74; RESP 16–24
[2017-01-04] MEDS: IPRATROPIUM (HFA) 12.9 GM INHALER INH SCH ×4 (01:06→19:31)
[2017-01-04] MEDS: ALBUTEROL 18 GM INHALER INH SCH ×4 (01:06→19:31)
[2017-01-04] MEDS: PANTOPRAZOLE 40 MG INJ IV SCH ×2 (05:53→17:40)
[2017-01-04 07:35] LABS: ADD SCAN DIFF NO
[2017-01-04 07:55] LABS: ABNORMAL IP MESSAGE 1; BASOPHILS % 0.5 % (0.0-2.0); EOSINOPHILS % 17.2 % (0.0-7.0); HEMATOCRIT 27.4 % (42.0-52.0); HEMOGLOBIN 9.1 g/dl (14.0-18.0); LYMPHOCYTES # 2.2 10^3/ul (0.8-2.9); LYMPHOCYTES % 38.5 % (15.0-51.0); MEAN CORPUSCULAR HEMOGLOBIN 29.4 pg (29.0-33.0); MEAN CORPUSCULAR HGB CONC 33.2 g/dl (32.0-37.0); MEAN CORPUSCULAR VOLUME 88.4 fl (82.0-101.0); MEAN PLATELET VOLUME 13.8 fl (7.4-10.4); MONOCYTES % 16.5 % (0.0-11.0); NEUTROPHIL # 1.6 10^3/ul (1.6-7.5); PLATELET COUNT 242 10^3/UL (140-415); RED CELL DISTRIBUTION WIDTH 16.3 % (11.5-14.5); WHITE BLOOD COUNT 5.8 10^3/ul (4.8-10.8)
[2017-01-04 08:02] LABS: CREATININE 0.87 mg/dl (0.61-1.24); POTASSIUM 4.4 mmol/L (3.5-5.1)
[2017-01-04] MEDS: MINERAL OIL 30ML CUP PO SCH (11:16)
[2017-01-04] MEDS: METOCLOPRAMIDE 10 MG INJ IV SCH ×2 (11:17→22:30)
[2017-01-04] MEDS: COLLAGENASE 30 GM TUBE TOP SCH (11:19)
--- NOTE | 2017-01-04 16:35 | CONS ---
Date/Time of Note Date/Time of Note DATE: 01/04/17 TIME: 16:35 Assessment/Plan Assessment/Plan Chief Complaint/Hosp Course - severe sepsis due to HCAP - HCAP/VAP due to kleb (KPC) and pseudo - UTI due to acineto and pseudo related to chronic indwelling Chaudhari - multiple pressure ulcer - recurrent infection of ulcer of RLE due to MRSA and pseudo. 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 Diphtheroides colonizers - colonization with MDR organisms, including MRSA and KPC - recurrent UGIB - s/p severe sepsis due to HCAP - HCAP/VAP due to kleb (KPC) and pseudo - UTI due to acineto and pseudo related to chronic indwelling Chaudhari - multiple pressure ulcer - recurrent infection of ulcer of RLE due to MRSA and pseudo. 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 the wound culture grew carbapenemase producing kleb, enterococci and pseudo - Dysphagia s/p EGD and new G tube placement 09/15/2016 - h/o infection of wound of RLE due to pseudomonas. 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/11/2016 - possible recurrent SBO per CT on 12/10/2016 - ileus - recurrent leukocytosis likely reactive from multiple emesis on 12/10/2016 & (remains afebrile) - MRSA nasal colonization - treated with Mupirocin 12/12/2016-12/22/2016 - Note: S/p tobramycin (12/12/2016-12/18/2016) for pseudomonas and acinetobacter, Cefepime (12/12/2016-12/21/2016) for KPC in sputum, and Linezolid (12/12/2016-2016) for MRSA recommendations: - wound care - repeat casanova cultures if temp >100.4F - continue to monitor Pt off abx - contact isolation for MRSA - droplet precautions for KPC in his respiratory tract Problems: Consultation Date/Type/Reason Admit Date/Time December 08, 2016 at 12:01 Type of Consultation: ID Referring Provider: MARLA AKBAR MD Exam/Review of Systems Vital Signs Vitals Vital Signs Date Time Temp Pulse Resp B/P Pulse Ox O2 Delivery O2 Flow Rate FiO2 01/04/17 16:00 60 01/04/17 15:24 98.0 18 156/96 96 01/04/17 11:25 35 Intake and Output 01/03/17 01/03/17 01/04/17 15:00 23:00 07:00 Intake Total 800 ml Output Total 0 ml 350 ml Balance 0 ml 450 ml Exam Constitutional: non-verbal Eyes: EOMI Respiratory: diminished breath sounds Cardiovascular: regular rate and rhythm Gastrointestinal: soft Results Result Diagram: 01/04/17 0620 01/04/17 0620 Results 24 hrs Laboratory Tests Test 01/04/17 06:20 White Blood Count 5.8 Red Blood Count 3.10 L Hemoglobin 9.1 L Hematocrit 27.4 L Mean Corpuscular Volume 88.4 Mean Corpuscular Hemoglobin 29.4 Mean Corpuscular Hemoglobin Concent 33.2 Red Cell Distribution Width 16.3 H Platelet Count 242 Mean Platelet Volume 13.8 H Neutrophils % 27.0 L Lymphocytes % 38.5 Monocytes % 16.5 H Eosinophils % 17.2 H Basophils % 0.5 Nucleated Red Blood Cells % 0.0 Neutrophils # 1.6 Lymphocytes # 2.2 Monocytes # 1.0 H Eosinophils # 1.0 H Basophils # 0.0 Nucleated Red Blood Cells # 0.0 Sodium Level 142 Potassium Level 4.4 Chloride Level 105 Carbon Dioxide Level 30 Anion Gap 11 Blood Urea Nitrogen 17 Creatinine 0.87 Glucose Level 104 Calcium Level 9.0 Medications Medications Current Medications Pantoprazole (Protonix Iv) 40 mg BID@,18 IV Last administered on 01/04/17 05: 53; Admin Dose 40 MG; Start 12/09/16 at 06:00 Acetaminophen (Tylenol Supp) 650 mg Q4H PRN [place] PAIN OR TEMP ABOVE 38C; Start at 20:30 Morphine Sulfate (morphine) 2 mg Q4H PRN IV PAIN; Start 12/08/16 at 20:30 Collagenase (Santyl) 1 applic DAILY TOP Last administered on 01/04/17 11:19; Admin Dose 1 APPLIC; Start 12/09/16 at 09:00 Collagenase (Santyl) 1 applic PRN PRN TOP SOILED OR DISLODGED DRESSING; Start 12/09/16 at 04:30 Diazepam (Valium) 5 mg Q12H PRN IV ANXIETY Last administered on 12/09/16 23:41 ; Admin Dose 5 MG; Start 12/09/16 at 23:00 Ondansetron HCl (Zofran Inj) 4 mg Q4H PRN IV NAUSEA AND/OR VOMITING Last administered on 12/16/16 09:37; Admin Dose 4 MG; Start 12/10/16 at 17:00 Metoprolol Tartrate (Lopressor) 5 mg Q6H PRN IV SBP >160 or HR > 120 Last administered on 12/10/16 23:14; Admin Dose 5 MG; Start 12/10/16 at 17:00 Hydralazine HCl (Apresoline) 20 mg Q6H PRN IV SBP > 160 Last administered on 21:03; Admin Dose 20 MG; Start 12/10/16 at 17:00 IV Flush (NS 10 ml) 10 ml PRN PRN IV IV PROTOCOL; Start 12/15/16 at 15:30 IV Flush (NS 10 ml) 10 ml PRN PRN IV IV PROTOCOL; Start 12/16/16 at 18:00 Metoclopramide HCl (Reglan) 10 mg Q12 IV Last administered on 01/04/17 11:17; Admin Dose 10 MG; Start 12/24/16 at 13:00 Mineral Oil (Mineral Oil) 30 ml DAILY PO Last administered on 01/04/17 11:16; Admin Dose 30 ML; Start 01/04/17 at 09:00 MARIBELL SUN MD Jan 04, 2017 16:35
--- NOTE | 2017-01-04 18:24 | PN ---
DATE: 01/04/2017 SUBJECTIVE: No complaint. Patient on ventilator. No current medications. OBJECTIVE: VITAL SIGNS: Temperature 98, heart rate 56 regular, respirations 16, blood pressure 166/96, saturat ion 98% on FIO2 of 35% on the ventilator. No communication, no response to verbal or painful stimul i. ABDOMEN: Quite soft. Bowel sounds present. Colostomy bag is empty today. Yesterday there was fay e stool ____. GENERAL: Patient is receiving tube feeding 50 mL per hour. ASSESSMENT AND PLAN: A 71-year-old male who was admitted because of bleeding from the tube feeding site, was found to have pneumonia and also urinary tract infection and has been treated for that. A lso, was found to be possibly partially obstructed. That problem is resolved now. The patient is tolerating tube feeding. Last week for 7 days, he did not have any bowel movement. We gave 2 liter s of GoLYTELY, so he opened up again and had a good bowel movement. Now today, he has not had bowel movement and I am expecting that probably did not have for a few days and then again, we have to r epeat the cycle and give him some GoLYTELY and then he is going to open up again. This appears to b e decided for this patient. The patient is probably ready to be discharged, but since he is in a [facility], they do not accepted the patients with tube feeding through the nose, so they are planni ng to put a new PICC and then discharge the patient. I will continue to follow the patient closely. Dictated By: VANIA PINEDA/MACK Conf#: [id number] DID#: [id number]
--- NOTE | 2017-01-04 19:53 | PN ---
Date/Time of Note Date/Time of Note DATE: 01/04/17 TIME: 19:49 Assessment/Plan VTE Prophylaxis VTE Prophylaxis Intervention: SCD's Lines/Catheters IV Catheter Type (from [facility]): PICC Line Central line still needed: Yes Urinary Cath still in place: Yes Reason Cath still needed: urinary retention Assessment/Plan Chief Complaint/Hosp Course No acute events overnight, patient remains hemodynamically stable. Dr. Pryor is called re possible G-tube insertion. Case discussed with Dr. rick cabrera he was recommendation to give GoLYTELY [facility] for [facility]. So far patient tolerates G-tube feeding well with no residual. Assessment and plan: - Partial small bowel obstruction, resolved. Continue G-tube feeding. Dr. Teran is following patient in general surgery consultation. - Hypertension. Continue hydralazine. - S/p upper gastrointestinal bleed. Continue Protonix. Dr. Pryor is following in gastric gastroenterology consultation. - S/p sepsis secondary to healthcare acquired pneumonia. - Healthcare facility-acquired pneumonia. Continue antibiotics. Dr. Tang is following in infection disease consultation. - UTI.S/p treatment. 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 - Ventilator dependent respiratory failure with tracheostomy. Dr. Saenz is following in pulmonology consultation. - Chronic obstructive pulmonary disease. Continue breathing treatment. - Dysphagia. -Chronic Chaudhari catheter. -Colostomy -Bedbound status. Further recommendations based on clinical course. Plan of care discussed with Dr. Meeks. Problems: Exam/Review of Systems Vital Signs Vitals Vital Signs Date Time Temp Pulse Resp B/P Pulse Ox O2 Delivery O2 Flow Rate FiO2 01/04/17 19:36 97.9 75 18 142/81 95 01/04/17 19:33 35 Intake and Output 01/03/17 01/03/17 01/04/17 15:00 23:00 07:00 Intake Total 800 ml Output Total 0 ml 350 ml Balance 0 ml 450 ml Exam Constitutional: frail, non-verbal Psych: confusion Head: normocephalic Eyes: nl conjunctiva ENMT: nl external ears & nose Neck: other (Tracheostomy), supple Respiratory: diminished breath sounds Cardiovascular: other (Atrial arrhythmia) Gastrointestinal: non-tender, other (colostomy), soft Genitourinary - Male: other (Chaudhari) Musculoskeletal: other (Contracted) Extremities: normal pulses Neurological: other (Chronic encephalopathy) Skin: other (Wounds) Results Result Diagram: 01/04/17 0620 01/04/17 0620 Results 24 hrs Laboratory Tests Test 01/04/17 06:20 White Blood Count 5.8 Red Blood Count 3.10 L Hemoglobin 9.1 L Hematocrit 27.4 L Mean Corpuscular Volume 88.4 Mean Corpuscular Hemoglobin 29.4 Mean Corpuscular Hemoglobin Concent 33.2 Red Cell Distribution Width 16.3 H Platelet Count 242 Mean Platelet Volume 13.8 H Neutrophils % 27.0 L Lymphocytes % 38.5 Monocytes % 16.5 H Eosinophils % 17.2 H Basophils % 0.5 Nucleated Red Blood Cells % 0.0 Neutrophils # 1.6 Lymphocytes # 2.2 Monocytes # 1.0 H Eosinophils # 1.0 H Basophils # 0.0 Nucleated Red Blood Cells # 0.0 Sodium Level 142 Potassium Level 4.4 Chloride Level 105 Carbon Dioxide Level 30 Anion Gap 11 Blood Urea Nitrogen 17 Creatinine 0.87 Glucose Level 104 Calcium Level 9.0 Medications Medications Current Medications Pantoprazole (Protonix Iv) 40 mg BID@18 IV Last administered on 01/04/17 17: 40; Admin Dose 40 MG; Start 12/09/16 at 06:00 Acetaminophen (Tylenol Supp) 650 mg Q4H PRN OR PAIN OR TEMP ABOVE 38C; Start at 20:30 Morphine Sulfate (morphine) 2 mg Q4H PRN IV PAIN; Start 12/08/16 at 20:30 Collagenase (Santyl) 1 applic DAILY TOP Last administered on 01/04/17 11:19; Admin Dose 1 APPLIC; Start 12/09/16 at 09:00 Collagenase (Santyl) 1 applic PRN PRN TOP SOILED OR DISLODGED DRESSING; Start 12/09/16 at 04:30 Diazepam (Valium) 5 mg Q12H PRN IV ANXIETY Last administered on 12/09/16 23:41 ; Admin Dose 5 MG; Start 12/09/16 at 23:00 Ondansetron HCl (Zofran Inj) 4 mg Q4H PRN IV NAUSEA AND/OR VOMITING Last administered on 12/16/16 09:37; Admin Dose 4 MG; Start 12/10/16 at 17:00 Metoprolol Tartrate (Lopressor) 5 mg Q6H PRN IV SBP >160 or HR > 120 Last administered on 12/10/16 23:14; Admin Dose 5 MG; Start 12/10/16 at 17:00 Hydralazine HCl (Apresoline) 20 mg Q6H PRN IV SBP > 160 Last administered on 21:03; Admin Dose 20 MG; Start 12/10/16 at 17:00 IV Flush (NS 10 ml) 10 ml PRN PRN IV IV PROTOCOL; Start 12/15/16 at 15:30 IV Flush (NS 10 ml) 10 ml PRN PRN IV IV PROTOCOL; Start 12/16/16 at 18:00 Metoclopramide HCl (Reglan) 10 mg Q12 IV Last administered on 01/04/17 11:17; Admin Dose 10 MG; Start 12/24/16 at 13:00 Mineral Oil (Mineral Oil) 30 ml DAILY PO Last administered on 01/04/17 11:16; Admin Dose 30 ML; Start 01/04/17 at 09:00 AMY MORAN Jan 04, 2017 19:53
[2017-01-05] VITALS (24 sets, daily range): BP systolic 129–179; BP diastolic 73–96; PULSE 49–78; RESP 16–27
[2017-01-05] MEDS: IPRATROPIUM (HFA) 12.9 GM INHALER INH SCH ×4 (01:25→19:28)
[2017-01-05] MEDS: ALBUTEROL 18 GM INHALER INH SCH ×5 (01:26→19:28)
[2017-01-05] MEDS: PANTOPRAZOLE 40 MG INJ IV SCH ×2 (05:00→18:11)
[2017-01-05 07:04] LABS: ADD SCAN DIFF NO
[2017-01-05 07:12] LABS: ABNORMAL IP MESSAGE 1; HEMOGLOBIN 8.3 g/dl (14.0-18.0); MEAN CORPUSCULAR HEMOGLOBIN 28.3 pg (29.0-33.0); MEAN CORPUSCULAR HGB CONC 31.9 g/dl (32.0-37.0); MEAN CORPUSCULAR VOLUME 88.7 fl (82.0-101.0); PLATELET COUNT 255 10^3/UL (140-415); RED BLOOD COUNT 2.93 10^6/ul (4.70-6.10); RED CELL DISTRIBUTION WIDTH 16.5 % (11.5-14.5); WHITE BLOOD COUNT 5.2 10^3/ul (4.8-10.8)
[2017-01-05 07:48] LABS: CREATININE 0.83 mg/dl (0.61-1.24); POTASSIUM 4.2 mmol/L (3.5-5.1)
[2017-01-05 08:38] LABS: BASOPHIL # 0.1 10^3/ul (0.0-0.1); EOSINOPHILS # 0.8 10^3/ul (0.0-0.5); MONOCYTE # 0.6 10^3/ul (0.3-0.9); NEUTROPHIL # 1.7 10^3/ul (1.6-7.5)
[2017-01-05 08:39] LABS: ANISOCYTOSIS 1+; HYPOCHROMASIA 2+
[2017-01-05] MEDS: MINERAL OIL 30ML CUP PO SCH (09:01)
[2017-01-05] MEDS: COLLAGENASE 30 GM TUBE TOP SCH (09:02)
[2017-01-05] MEDS: METOCLOPRAMIDE 10 MG INJ IV SCH ×2 (09:02→21:00)
--- NOTE | 2017-01-05 14:21 | PN ---
DATE: 01/05/2017 SUBJECTIVE: No complaint. OBJECTIVE: Patient is on the ventilator through tracheostomy, eyes closed. No verbal communication, no response to verbal or painful stimuli. OBJECTIVE: VITAL SIGNS: Temperature 98.5, heart rate 65, respirations 18, blood pressure 129/84, saturation 10 0% on FIO2 to 35% on the ventilator. LABORATORY DATA: WBC 5200, hemoglobin ____ , hematocrit 26. Chemistry: BUN, creatinine, sodium, potassium within normal limits. ABDOMEN: Soft, bowel sounds present. Colostomy is empty. No gas, no stool. Apparently, the patie nt has not had any bowel movement in the past 48 hours. PLAN: Continue current care. They are waiting for GI colleagues to place a percutaneous gastrostom y for the patient before [facility] the [facility] a [facility]. I will continue to follow and m onitor the GI function. Dictated By: VANIA MAE MD PS/MACK Conf#: [id number] DID#: [id number]
--- NOTE | 2017-01-05 15:14 | CONS ---
Date/Time of Note Date/Time of Note DATE: 01/05/17 TIME: 15:05 Consult Date/Type/Reason Admit Date/Time December 08, 2016 at 12:01 Ordering Provider: MARLA AKBAR MD Objective Vital Signs Date Time Temp Pulse Resp B/P Pulse Ox O2 Delivery O2 Flow Rate FiO2 01/05/17 12:42 51 01/05/17 10:51 98.5 18 129/84 100 01/05/17 09:00 35 Intake and Output 01/04/17 01/04/17 01/05/17 15:00 23:00 07:00 Intake Total 950 ml 950 ml Output Total 600 ml 500 ml Balance 350 ml 450 ml Results/Medications Result Diagram: 01/05/1717 01/05/17616 Results 24 hrs Laboratory Tests Test 01/05/17 06:17 White Blood Count 5.2 Red Blood Count 2.93 L Hemoglobin 8.3 L Hematocrit 26.0 L Mean Corpuscular Volume 88.7 Mean Corpuscular Hemoglobin 28.3 L Mean Corpuscular Hemoglobin Concent 31.9 L Red Cell Distribution Width 16.5 H Platelet Count 255 Mean Platelet Volume 14.0 H Neutrophils % 33.0 L Lymphocytes % 38.0 Monocytes % 11.0 Eosinophils % 16.0 H Basophils % 2.0 Neutrophils # 1.7 Lymphocytes # 2.0 Monocytes # 0.6 Eosinophils # 0.8 H Basophils # 0.1 Giant Platelets OCCASIONAL Hypochromasia 2+ Anisocytosis 1+ Sodium Level 141 Potassium Level 4.2 Chloride Level 105 Carbon Dioxide Level 30 Anion Gap 10 Blood Urea Nitrogen 18 Creatinine 0.83 Glucose Level 104 Calcium Level 9.0 Medications Current Medications Pantoprazole (Protonix Iv) 40 mg BID@06,18 IV Last administered on 01/05/17 05: 00; Admin Dose 40 MG; Start 12/09/16 at 06:00 Acetaminophen (Tylenol Supp) 650 mg Q4H PRN [place] PAIN OR TEMP ABOVE 38C; Start at 20:30 Morphine Sulfate (morphine) 2 mg Q4H PRN IV PAIN; Start 12/08/16 at 20:30 Collagenase (Santyl) 1 applic DAILY TOP Last administered on 01/05/17 09:02; Admin Dose 1 APPLIC; Start 12/09/16 at 09:00 Collagenase (Santyl) 1 applic PRN PRN TOP SOILED OR DISLODGED DRESSING; Start 12/09/16 at 04:30 Diazepam (Valium) 5 mg Q12H PRN IV ANXIETY Last administered on 12/09/16 23:41 ; Admin Dose 5 MG; Start 12/09/16 at 23:00 Ondansetron HCl (Zofran Inj) 4 mg Q4H PRN IV NAUSEA AND/OR VOMITING Last administered on 12/16/16 09:37; Admin Dose 4 MG; Start 12/10/16 at 17:00 Metoprolol Tartrate (Lopressor) 5 mg Q6H PRN IV SBP >160 or HR > 120 Last administered on 12/10/16 23:14; Admin Dose 5 MG; Start 12/10/16 at 17:00 Hydralazine HCl (Apresoline) 20 mg Q6H PRN IV SBP > 160 Last administered on 21:03; Admin Dose 20 MG; Start 12/10/16 at 17:00 IV Flush (NS 10 ml) 10 ml PRN PRN IV IV PROTOCOL; Start 12/15/16 at 15:30 IV Flush (NS 10 ml) 10 ml PRN PRN IV IV PROTOCOL; Start 12/16/16 at 18:00 Metoclopramide HCl (Reglan) 10 mg Q12 IV Last administered on 01/05/17 09:02; Admin Dose 10 MG; Start 12/24/16 at 13:00 Mineral Oil (Mineral Oil) 30 ml DAILY PO Last administered on 01/05/17 09:01; Admin Dose 30 ML; Start 01/04/17 at 09:00 SUSHMA JUDD Jan 05, 2017 15:14 Assessment/Plan Chief Complaint/Hosp Course - severe sepsis due to HCAP - HCAP/VAP due to kleb (KPC) and pseudo - UTI due to acineto and pseudo related to chronic indwelling Chaudhari - multiple pressure ulcer - recurrent infection of ulcer of RLE due to MRSA and pseudo. 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 Diphtheroides colonizers - colonization with MDR organisms, including MRSA and KPC - recurrent UGIB - s/p severe sepsis due to HCAP - HCAP/VAP due to kleb (KPC) and pseudo - UTI due to acineto and pseudo related to chronic indwelling Chaudhari - multiple pressure ulcer - recurrent infection of ulcer of RLE due to MRSA and pseudo. 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 the wound culture grew carbapenemase producing kleb, enterococci and pseudo - Dysphagia s/p EGD and new G tube placement 09/15/2016 - h/o infection of wound of RLE due to pseudomonas. 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/11/2016 - possible recurrent SBO per CT on 12/10/2016 - ileus - recurrent leukocytosis likely reactive from multiple emesis on 12/10/2016 & (remains afebrile) - MRSA nasal colonization - treated with Mupirocin 12/12/2016-12/22/2016 - Note: S/p tobramycin (12/12/2016-12/18/2016) for pseudomonas and acinetobacter, Cefepime (12/12/2016-12/21/2016) for KPC in sputum, and Linezolid (12/12/2016-2016) for MRSA recommendations: - wound care - repeat casanova cultures if temp >100.4F - continue to monitor Pt off abx - contact isolation for MRSA - droplet precautions for KPC in his respiratory tract Management and care discussed with [facility] Cool and DR. Tang Problems: SUSHMA JUDD Jan 05, 2017 15:14 SUSHMA JUDD Jan 05, 2017 15:14
--- NOTE | 2017-01-05 15:20 | CONS ---
Date/Time of Note Date/Time of Note DATE: 01/05/17 TIME: 15:14 Consult Date/Type/Reason Admit Date/Time December 08, 2016 at 12:01 Initial Consult Date 12/10/16 Type of Consultation: Infectious Disease f/u Ordering Provider: MARLA AKBAR MD Subjective Unable, tracheostomy and ventilator supported Objective Vital Signs Date Time Temp Pulse Resp B/P Pulse Ox O2 Delivery O2 Flow Rate FiO2 01/05/17 12:42 51 01/05/17 10:51 98.5 18 129/84 100 01/05/17 09:00 35 Intake and Output 01/04/17 01/04/17 01/05/17 15:00 23:00 07:00 Intake Total 950 ml 950 ml Output Total 600 ml 500 ml Balance 350 ml 450 ml Exam Constitutional: frail, non-verbal male lying in bed, ventilator supported Head: b/l temporal wasting, NGT left nares, tube feeding infusing Eyes: nl conjunctiva Neck: tracheostomy in place Respiratory: diminished breath sounds anteriorly Cardiovascular: nl pulses, regular rate and rhythm Gastrointestinal: soft, non-distended, ostomy bag over former GT site and left sided colostomy Genitourinary: Chaudhari catheter in place Extremities: No edema Neurological: lethargic Skin: warm and dry, sacral decubitus ulcer and LE wounds (see nurses notes for details) Results/Medications Result Diagram: 01/05/17 0617 01/05/17 0617 Results 24 hrs Laboratory Tests Test 01/05/17 06:17 White Blood Count 5.2 Red Blood Count 2.93 L Hemoglobin 8.3 L Hematocrit 26.0 L Mean Corpuscular Volume 88.7 Mean Corpuscular Hemoglobin 28.3 L Mean Corpuscular Hemoglobin Concent 31.9 L Red Cell Distribution Width 16.5 H Platelet Count 255 Mean Platelet Volume 14.0 H Neutrophils % 33.0 L Lymphocytes % 38.0 Monocytes % 11.0 Eosinophils % 16.0 H Basophils % 2.0 Neutrophils # 1.7 Lymphocytes # 2.0 Monocytes # 0.6 Eosinophils # 0.8 H Basophils # 0.1 Giant Platelets OCCASIONAL Hypochromasia 2+ Anisocytosis 1+ Sodium Level 141 Potassium Level 4.2 Chloride Level 105 Carbon Dioxide Level 30 Anion Gap 10 Blood Urea Nitrogen 18 Creatinine 0.83 Glucose Level 104 Calcium Level 9.0 Medications Current Medications Pantoprazole (Protonix Iv) 40 mg BID@18 IV Last administered on 01/05/17 05: 00; Admin Dose 40 MG; Start 12/09/16 at 06:00 Acetaminophen (Tylenol Supp) 650 mg Q4H PRN [place] PAIN OR TEMP ABOVE 38C; Start at 20:30 Morphine Sulfate (morphine) 2 mg Q4H PRN IV PAIN; Start 12/08/16 at 20:30 Collagenase (Santyl) 1 applic DAILY TOP Last administered on 01/05/17 09:02; Admin Dose 1 APPLIC; Start 12/09/16 at 09:00 Collagenase (Santyl) 1 applic PRN PRN TOP SOILED OR DISLODGED DRESSING; Start 12/09/16 at 04:30 Diazepam (Valium) 5 mg Q12H PRN IV ANXIETY Last administered on 12/09/16 23:41 ; Admin Dose 5 MG; Start 12/09/16 at 23:00 Ondansetron HCl (Zofran Inj) 4 mg Q4H PRN IV NAUSEA AND/OR VOMITING Last administered on 12/16/16 09:37; Admin Dose 4 MG; Start 12/10/16 at 17:00 Metoprolol Tartrate (Lopressor) 5 mg Q6H PRN IV SBP >160 or HR > 120 Last administered on 12/10/16 23:14; Admin Dose 5 MG; Start 12/10/16 at 17:00 Hydralazine HCl (Apresoline) 20 mg Q6H PRN IV SBP > 160 Last administered on 21:03; Admin Dose 20 MG; Start 12/10/16 at 17:00 IV Flush (NS 10 ml) 10 ml PRN PRN IV IV PROTOCOL; Start 12/15/16 at 15:30 IV Flush (NS 10 ml) 10 ml PRN PRN IV IV PROTOCOL; Start 12/16/16 at 18:00 Metoclopramide HCl (Reglan) 10 mg Q12 IV Last administered on 01/05/17 09:02; Admin Dose 10 MG; Start 12/24/16 at 13:00 Mineral Oil (Mineral Oil) 30 ml DAILY PO Last administered on 01/05/17 09:01; Admin Dose 30 ML; Start 6/6/17 at 09:00 Assessment/Plan Chief Complaint/Hosp Course - severe sepsis due to HCAP - HCAP/VAP due to kleb (KPC) and pseudo - UTI due to acineto and pseudo related to chronic indwelling Chaudhari - multiple pressure ulcer - recurrent infection of ulcer of RLE due to MRSA and pseudo. 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 Diphtheroides colonizers - colonization with MDR organisms, including MRSA and KPC - recurrent UGIB - s/p severe sepsis due to HCAP - HCAP/VAP due to kleb (KPC) and pseudo - UTI due to acineto and pseudo related to chronic indwelling Chaudhari - multiple pressure ulcer - recurrent infection of ulcer of RLE due to MRSA and pseudo. 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 the wound culture grew carbapenemase producing kleb, enterococci and pseudo - Dysphagia s/p EGD and new G tube placement 09/15/2016 - h/o infection of wound of RLE due to pseudomonas. 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/11/2016 - possible recurrent SBO per CT on 12/10/2016 - ileus - recurrent leukocytosis likely reactive from multiple emesis on 12/10/2016 & (remains afebrile) - MRSA nasal colonization - treated with Mupirocin 12/12/2016-12/22/2016 - Note: S/p tobramycin (12/12/2016-12/18/2016) for pseudomonas and acinetobacter, Cefepime (12/12/2016-12/21/2016) for KPC in sputum, and Linezolid (12/12/2016-2016) for MRSA - DC planning to [facility] when bed available recommendations: - wound care - repeat casanova cultures if temp >100.4F - continue to monitor Pt off abx - contact isolation for MRSA - droplet precautions for KPC in his respiratory tract Management and care discussed with [facility] Cool and DR. Tang Problems: SUSHMA JUDD Jan 05, 2017 15:20
--- NOTE | 2017-01-05 17:47 | PN ---
Date/Time of Note Date/Time of Note DATE: 01/05/17 TIME: 17:45 Assessment/Plan VTE Prophylaxis VTE Prophylaxis Intervention: SCD's Lines/Catheters IV C[facility]ter Type [facility] PICC Line Central line still needed: Yes Urinary Cath still in place: Yes Reason Cath still needed: urinary retention Assessment/Plan Chief Complaint/Hosp Course Patient remains hemodynamically stable, tolerates a G-tube feeding with no residual, Dr. Pryor is asked to see patient in gastroenterology consultation for possible G-tube placement. Assessment and plan: - Partial small bowel obstruction, resolved. Continue G-tube feeding. Dr. Teran is following patient in general surgery consultation. - Hypertension. Continue hydralazine. - S/p upper gastrointestinal bleed. Continue Protonix. Dr. Pryor is following in gastric gastroenterology consultation. - S/p sepsis secondary to healthcare acquired pneumonia. - Healthcare facility-acquired pneumonia. Continue antibiotics. Dr. Tang is following in infection disease consultation. - UTI.S/p treatment. 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 - Ventilator dependent respiratory failure with tracheostomy. Dr. Saenz is following in pulmonology consultation. - Chronic obstructive pulmonary disease. Continue breathing treatment. - Dysphagia. -Chronic Chaudhari catheter. -Colostomy -Bedbound status. Further recommendations based on clinical course. Plan of care discussed with Dr. Meeks. Problems: Exam/Review of Systems Vital Signs Vitals Vital Signs Date Time Temp Pulse Resp B/P Pulse Ox O2 Delivery O2 Flow Rate FiO2 01/05/17 17:07 49 01/05/17 16:53 16 99 35 01/05/17 15:21 98.3 144/74 Intake and Output 01/04/17 01/04/17 01/05/17 15:00 23:00 07:00 Intake Total 950 ml 950 ml Output Total 600 ml 500 ml Balance 350 ml 450 ml Exam Constitutional: frail, non-verbal Neck: other (Tracheostomy), supple Respiratory: diminished breath sounds Cardiovascular: Nl pulse Gastrointestinal: non-tender, other (colostomy), soft Genitourinary - Male: other (Chaudhari) Musculoskeletal: other (Contracted) Extremities: normal pulses Skin: other (Wounds) Results Result Diagram: 01/05/1717 01/05/17 0617 Results 24 hrs Laboratory Tests Test 01/05/17 06:17 White Blood Count 5.2 Red Blood Count 2.93 L Hemoglobin 8.3 L Hematocrit 26.0 L Mean Corpuscular Volume 88.7 Mean Corpuscular Hemoglobin 28.3 L Mean Corpuscular Hemoglobin Concent 31.9 L Red Cell Distribution Width 16.5 H Platelet Count 255 Mean Platelet Volume 14.0 H Neutrophils % 33.0 L Lymphocytes % 38.0 Monocytes % 11.0 Eosinophils % 16.0 H Basophils % 2.0 Neutrophils # 1.7 Lymphocytes # 2.0 Monocytes # 0.6 Eosinophils # 0.8 H Basophils # 0.1 Giant Platelets OCCASIONAL Hypochromasia 2+ Anisocytosis 1+ Sodium Level 141 Potassium Level 4.2 Chloride Level 105 Carbon Dioxide Level 30 Anion Gap 10 Blood Urea Nitrogen 18 Creatinine 0.83 Glucose Level 104 Calcium Level 9.0 Medications Medications Current Medications Pantoprazole (Protonix Iv) 40 mg BID@,18 IV Last administered on 01/05/17 05: 00; Admin Dose 40 MG; Start 12/09/16 at 06:00 Acetaminophen (Tylenol Supp) 650 mg Q4H PRN [place] PAIN OR TEMP ABOVE 38C; Start at 20:30 Morphine Sulfate (morphine) 2 mg Q4H PRN IV PAIN; Start 12/08/16 at 20:30 Collagenase (Santyl) 1 applic DAILY TOP Last administered on 01/05/17 09:02; Admin Dose 1 APPLIC; Start 12/09/16 at 09:00 Collagenase (Santyl) 1 applic PRN PRN TOP SOILED OR DISLODGED DRESSING; Start 12/09/16 at 04:30 Diazepam (Valium) 5 mg Q12H PRN IV ANXIETY Last administered on 12/09/16 23:41 ; Admin Dose 5 MG; Start 12/09/16 at 23:00 Ondansetron HCl (Zofran Inj) 4 mg Q4H PRN IV NAUSEA AND/OR VOMITING Last administered on 12/16/16 09:37; Admin Dose 4 MG; Start 12/10/16 at 17:00 Metoprolol Tartrate (Lopressor) 5 mg Q6H PRN IV SBP >160 or HR > 120 Last administered on 12/10/16 23:14; Admin Dose 5 MG; Start 12/10/16 at 17:00 Hydralazine HCl (Apresoline) 20 mg Q6H PRN IV SBP > 160 Last administered on 21:03; Admin Dose 20 MG; Start 12/10/16 at 17:00 IV Flush (NS 10 ml) 10 ml PRN PRN IV IV PROTOCOL; Start 12/15/16 at 15:30 IV Flush (NS 10 ml) 10 ml PRN PRN IV IV PROTOCOL; Start 12/16/16 at 18:00 Metoclopramide HCl (Reglan) 10 mg Q12 IV Last administered on 01/05/17 09:02; Admin Dose 10 MG; Start 12/24/16 at 13:00 Mineral Oil (Mineral Oil) 30 ml DAILY PO Last administered on 01/05/17 09:01; Admin Dose 30 ML; Start 01/04/17 at 09:00 AMY MORAN Jan 05, 2017 17:46
[2017-01-06] VITALS (23 sets, daily range): BP systolic 118–173; BP diastolic 68–90; PULSE 60–75; RESP 16–20
[2017-01-06] MEDS: IPRATROPIUM (HFA) 12.9 GM INHALER INH SCH ×4 (01:10→20:09)
[2017-01-06] MEDS: ALBUTEROL 18 GM INHALER INH SCH ×4 (01:10→20:08)
[2017-01-06] MEDS: PANTOPRAZOLE 40 MG INJ IV SCH ×2 (05:24→17:14)
[2017-01-06 06:16] LABS: ADD SCAN DIFF NO
[2017-01-06 06:32] LABS: ABNORMAL IP MESSAGE 1; BASOPHILS % 0.8 % (0.0-2.0); EOSINOPHILS # 1.1 10^3/ul (0.0-0.5); EOSINOPHILS % 21.7 % (0.0-7.0); HEMATOCRIT 26.8 % (42.0-52.0); HEMOGLOBIN 8.9 g/dl (14.0-18.0); LYMPHOCYTES # 1.8 10^3/ul (0.8-2.9); LYMPHOCYTES % 35.8 % (15.0-51.0); MEAN CORPUSCULAR HEMOGLOBIN 29.3 pg (29.0-33.0); MEAN CORPUSCULAR HGB CONC 33.2 g/dl (32.0-37.0); MEAN CORPUSCULAR VOLUME 88.2 fl (82.0-101.0); MEAN PLATELET VOLUME 12.8 fl (7.4-10.4); MONOCYTE # 0.6 10^3/ul (0.3-0.9); MONOCYTES % 12.3 % (0.0-11.0); NEUTROPHIL # 1.4 10^3/ul (1.6-7.5); NEUTROPHILS % 29.2 % (39.0-77.0); PLATELET COUNT 246 10^3/UL (140-415); RED BLOOD COUNT 3.04 10^6/ul (4.70-6.10); RED CELL DISTRIBUTION WIDTH 16.2 % (11.5-14.5); WHITE BLOOD COUNT 4.9 10^3/ul (4.8-10.8)
[2017-01-06 06:49] LABS: CALCIUM 9.2 mg/dl (8.4-10.2); CREATININE 0.82 mg/dl (0.61-1.24); POTASSIUM 4.3 mmol/L (3.5-5.1)
[2017-01-06] MEDS: MINERAL OIL 30ML CUP PO SCH (08:45)
[2017-01-06] MEDS: METOCLOPRAMIDE 10 MG INJ IV SCH ×2 (08:45→21:11)
[2017-01-06] MEDS: COLLAGENASE 30 GM TUBE TOP SCH (08:45)
--- NOTE | 2017-01-06 14:39 | PN ---
DATE: 01/06/2017 SUBJECTIVE: No complaint, no new events. OBJECTIVE: GENERAL: The patient is on ventilator through tracheostomy. Eyes are closed. No verbal communication. No response to voice stimulation or painful stimulation. VITAL SIGNS: Temperature 98.5, heart rate 65 regular, respirations 16, blood pressure 139/83, saturation 97% on FIO2 30% on ventilator. ABDOMEN: Soft. Colostomy bag. There is moderate amount of gas and little amount of stool. LABORATORIES: WBC today 4900 with 29% neutrophils and 35% lymphocytes, hemoglobin 8.9, hematocrit 26.8, platelet count 246. Chemistry: Sodium, potassium, BUN, creatinine within normal limits. ASSESSMENT AND PLAN: A 71-year-old male dependent on the ventilator was admitted with GI bleeding and was found to have dislodged PEG tube, it was removed. The patient later on developed partial small bowel obstruction, eventually resolved. The patient is on tube feeding through NG tube. The patient has tolerated feeding and has started functioning the GI tract on and off, but grossly there is no obstruction. The last bowel movement was 3 days ago. Today, in the bag there is a lot of gas. The [facility], but because he does not have peg. and is being fed through NG tube, he is not a candidate for that. Therefore, the GI colleague is going to put percutaneous tube feeding today, most probably. The surgical team is going to follow the patient till the patient leaves the hospital for evaluation of GI function. Dictated By: VANIA PINEDA/MACK Conf#: [id number] DID#: [id number]
--- NOTE | 2017-01-06 16:30 | CONS ---
Date/Time of Note Date/Time of Note DATE: 01/06/17 TIME: 16:30 Assessment/Plan Assessment/Plan Chief Complaint/Hosp Course - severe sepsis due to HCAP - HCAP/VAP due to kleb (KPC) and pseudo - UTI due to acineto and pseudo related to chronic indwelling Chaudhari - multiple pressure ulcer - recurrent infection of ulcer of RLE due to MRSA and pseudo. 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 Diphtheroides colonizers - colonization with MDR organisms, including MRSA and KPC - recurrent UGIB - s/p severe sepsis due to HCAP - HCAP/VAP due to kleb (KPC) and pseudo - UTI due to acineto and pseudo related to chronic indwelling Chaudhari - multiple pressure ulcer - recurrent infection of ulcer of RLE due to MRSA and pseudo. 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 the wound culture grew carbapenemase producing kleb, enterococci and pseudo - Dysphagia s/p EGD and new G tube placement 09/15/2016 - h/o infection of wound of RLE due to pseudomonas. 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/11/2016 - possible recurrent SBO per CT on 12/10/2016 - ileus - recurrent leukocytosis likely reactive from multiple emesis on 12/10/2016 & (remains afebrile) - MRSA nasal colonization - treated with Mupirocin 12/12/2016-12/22/2016 - Note: S/p tobramycin (12/12/2016-12/18/2016) for pseudomonas and acinetobacter, Cefepime (12/12/2016-12/21/2016) for KPC in sputum, and Linezolid (12/12/2016-2016) for MRSA recommendations: - wound care - repeat casanova cultures if temp >100.4F - continue to monitor Pt off abx - contact isolation for MRSA - droplet precautions for KPC in his respiratory tract Problems: Consultation Date/Type/Reason Admit Date/Time December 08, 2016 at 12:01 Type of Consultation: Infectious Disease f/u Referring Provider: MARLA AKBAR MD Exam/Review of Systems Vital Signs Vitals Vital Signs Date Time Temp Pulse Resp B/P Pulse Ox O2 Delivery O2 Flow Rate FiO2 01/06/17 16:02 98.2 67 18 129/68 98 01/06/17 15:10 30 Intake and Output 01/05/17 01/05/17 01/06/17 15:00 23:00 07:00 Intake Total 950 ml 600 ml Output Total 0 ml 700 ml 800 ml Balance 0 ml 250 ml -200 ml Results Result Diagram: 01/06/17 0535 01/06/17 0535 Results 24 hrs Laboratory Tests Test 01/06/17 05:35 White Blood Count 4.9 Red Blood Count 3.04 L Hemoglobin 8.9 L Hematocrit 26.8 L Mean Corpuscular Volume 88.2 Mean Corpuscular Hemoglobin 29.3 Mean Corpuscular Hemoglobin Concent 33.2 Red Cell Distribution Width 16.2 H Platelet Count 246 Mean Platelet Volume 12.8 H Neutrophils % 29.2 L Lymphocytes % 35.8 Monocytes % 12.3 H Eosinophils % 21.7 H Basophils % 0.8 Nucleated Red Blood Cells % 0.0 Neutrophils # 1.4 L Lymphocytes # 1.8 Monocytes # 0.6 Eosinophils # 1.1 H Basophils # 0.0 Nucleated Red Blood Cells # 0.0 Sodium Level 137 Potassium Level 4.3 Chloride Level 103 Carbon Dioxide Level 29 Anion Gap 9 Blood Urea Nitrogen 17 Creatinine 0.82 Glucose Level 89 Calcium Level 9.2 Medications Medications Current Medications Pantoprazole (Protonix Iv) 40 mg BID@06,18 IV Last administered on 01/06/17 05: 24; Admin Dose 40 MG; Start 12/09/16 at 06:00 Acetaminophen (Tylenol Supp) 650 mg Q4H PRN [place] PAIN OR TEMP ABOVE 38C; Start at 20:30 Morphine Sulfate (morphine) 2 mg Q4H PRN IV PAIN; Start 12/08/16 at 20:30 Collagenase (Santyl) 1 applic DAILY TOP Last administered on 01/06/17 08:45; Admin Dose 1 APPLIC; Start 12/09/16 at 09:00 Collagenase (Santyl) 1 applic PRN PRN TOP SOILED OR DISLODGED DRESSING; Start 12/09/16 at 04:30 Diazepam (Valium) 5 mg Q12H PRN IV ANXIETY Last administered on 12/09/16 23:41 ; Admin Dose 5 MG; Start 12/09/16 at 23:00 Ondansetron HCl (Zofran Inj) 4 mg Q4H PRN IV NAUSEA AND/OR VOMITING Last administered on 12/16/16 09:37; Admin Dose 4 MG; Start 12/10/16 at 17:00 Metoprolol Tartrate (Lopressor) 5 mg Q6H PRN IV SBP >160 or HR > 120 Last administered on 12/10/16 23:14; Admin Dose 5 MG; Start 12/10/16 at 17:00 Hydralazine HCl (Apresoline) 20 mg Q6H PRN IV SBP > 160 Last administered on 21:03; Admin Dose 20 MG; Start 12/10/16 at 17:00 IV Flush (NS 10 ml) 10 ml PRN PRN IV IV PROTOCOL; Start 12/15/16 at 15:30 IV Flush (NS 10 ml) 10 ml PRN PRN IV IV PROTOCOL; Start 12/16/16 at 18:00 Metoclopramide HCl (Reglan) 10 mg Q12 IV Last administered on 01/06/17 08:45; Admin Dose 10 MG; Start 12/24/16 at 13:00 Mineral Oil (Mineral Oil) 30 ml DAILY PO Last administered on 01/06/17 08:45; Admin Dose 30 ML; Start 01/04/17 at 09:00 MARIBELL SUN MD Jan 06, 2017 16:30
--- NOTE | 2017-01-06 17:12 | PN ---
Date/Time of Note Date/Time of Note DATE: 01/06/17 TIME: 17:10 Assessment/Plan Lines/Catheters IV C[facility]ter Type (from [facility]): PICC Line Urinary Cath still in place: Yes Assessment/Plan Assessment/Plan - Partial small bowel obstruction, resolved. Continue NGT-tube feeding. Dr. Teran is following patient in general surgery consultation. - for PEG placement today - Hypertension. Continue hydralazine. - S/p upper gastrointestinal bleed. Continue Protonix. Dr. Pryor is following in gastric gastroenterology consultation. - S/p sepsis secondary to healthcare acquired pneumonia. - Healthcare facility-acquired pneumonia. Continue antibiotics. Dr. Tang is following in infection disease consultation. - UTI.S/p treatment. 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 - Ventilator dependent respiratory failure with tracheostomy. Dr. Saenz is following in pulmonology consultation. - Chronic obstructive pulmonary disease. Continue breathing treatment. - Dysphagia. -Chronic Chaudhari catheter. -Colostomy -Bedbound status. Further recommendations based on clinical course. Plan of care discussed with Dr. Meeks. Exam/Review of Systems Vital Signs Vitals Vital Signs Date Time Temp Pulse Resp B/P Pulse Ox O2 Delivery O2 Flow Rate FiO2 01/06/17 16:02 98.2 67 18 129/68 98 01/06/17 15:10 30 Intake and Output 01/05/17 01/05/17 01/06/17 15:00 23:00 07:00 Intake Total 950 ml 600 ml Output Total 0 ml 700 ml 800 ml Balance 0 ml 250 ml -200 ml Exam Respiratory: diminished breath sounds, normal air movement Cardiovascular: nl pulses, regular rate and rhythm Musculoskeletal: muscle weakness Extremities: normal pulses Neurological: unresponsive Results Result Diagram: 01/06/17 0535 01/06/17 0535 Results 24 hrs Laboratory Tests Test 01/06/17 05:35 White Blood Count 4.9 Red Blood Count 3.04 L Hemoglobin 8.9 L Hematocrit 26.8 L Mean Corpuscular Volume 88.2 Mean Corpuscular Hemoglobin 29.3 Mean Corpuscular Hemoglobin Concent 33.2 Red Cell Distribution Width 16.2 H Platelet Count 246 Mean Platelet Volume 12.8 H Neutrophils % 29.2 L Lymphocytes % 35.8 Monocytes % 12.3 H Eosinophils % 21.7 H Basophils % 0.8 Nucleated Red Blood Cells % 0.0 Neutrophils # 1.4 L Lymphocytes # 1.8 Monocytes # 0.6 Eosinophils # 1.1 H Basophils # 0.0 Nucleated Red Blood Cells # 0.0 Sodium Level 137 Potassium Level 4.3 Chloride Level 103 Carbon Dioxide Level 29 Anion Gap 9 Blood Urea Nitrogen 17 Creatinine 0.82 Glucose Level 89 Calcium Level 9.2 Medications Medications Current Medications Pantoprazole (Protonix Iv) 40 mg BID@,18 IV Last administered on 01/06/17 05: 24; Admin Dose 40 MG; Start 12/09/16 at 06:00 Acetaminophen (Tylenol Supp) 650 mg Q4H PRN [place] PAIN OR TEMP ABOVE 38C; Start at 20:30 Morphine Sulfate (morphine) 2 mg Q4H PRN IV PAIN; Start 12/08/16 at 20:30 Collagenase (Santyl) 1 applic DAILY TOP Last administered on 01/06/17 08:45; Admin Dose 1 APPLIC; Start 12/09/16 at 09:00 Collagenase (Santyl) 1 applic PRN PRN TOP SOILED OR DISLODGED DRESSING; Start 12/09/16 at 04:30 Diazepam (Valium) 5 mg Q12H PRN IV ANXIETY Last administered on 12/09/16 23:41 ; Admin Dose 5 MG; Start 12/09/16 at 23:00 Ondansetron HCl (Zofran Inj) 4 mg Q4H PRN IV NAUSEA AND/OR VOMITING Last administered on 12/16/16 09:37; Admin Dose 4 MG; Start 12/10/16 at 17:00 Metoprolol Tartrate (Lopressor) 5 mg Q6H PRN IV SBP >160 or HR > 120 Last administered on 12/10/16 23:14; Admin Dose 5 MG; Start 12/10/16 at 17:00 Hydralazine HCl (Apresoline) 20 mg Q6H PRN IV SBP > 160 Last administered on 21:03; Admin Dose 20 MG; Start 12/10/16 at 17:00 IV Flush (NS 10 ml) 10 ml PRN PRN IV IV PROTOCOL; Start 12/15/16 at 15:30 IV Flush (NS 10 ml) 10 ml PRN PRN IV IV PROTOCOL; Start 12/16/16 at 18:00 Metoclopramide HCl (Reglan) 10 mg Q12 IV Last administered on 01/06/17 08:45; Admin Dose 10 MG; Start 12/24/16 at 13:00 Mineral Oil (Mineral Oil) 30 ml DAILY PO Last administered on 01/06/17 08:45; Admin Dose 30 ML; Start 01/04/17 at 09:00 MARIO ROWE Jan 06, 2017 17:12
[2017-01-06] MEDS: DEXTROSE 5%-0.45% NACL 1,000 ML IV SCH (17:14)
[2017-01-06] MEDS ORDERED: CEFAZOLIN 1 GM/50 ML (PMX) 100 ML IVPB ONE (19:23)
[2017-01-07] VITALS (26 sets, daily range): BP systolic 129–167; BP diastolic 59–88; PULSE 58–117; RESP 16–29
--- NOTE | 2017-01-07 01:25 | GILP ---
DATE OF PROCEDURE: NAME OF PROCEDURE: Esophagogastroduodenoscopy, percutaneous endoscopic gastrostomy tube placement. PREOPERATIVE DIAGNOSIS: Dysphagia. The patient is being fed through the nasogastric tube, has got status post tracheostomy. The patient needs a percutaneous endoscopic gastrostomy tube for long-ter m nutritional support. POSTOPERATIVE DIAGNOSIS: Dysphagia. The patient is being fed through the nasogastric tube, has got status post tracheostomy. The patient needs a percutaneous endoscopic gastrostomy tube for long-te rm nutritional support. DESCRIPTION OF PROCEDURE: After informed written consent was obtained, the patient was asked to lie in the supine position. Intravenous anesthesia was given by anesthesiologist, ____. When the patient became somnolent, Olympus video upper endoscope was introduced into the oropharynx, then int o the esophagus. Esophagus appeared normal. Stomach showed evidence of old healed gastric ulcer. Minimal gastritis noted. Duodenum appeared normal. Endoscope at this time was withdrawn to level o f the gastric cavity. The anterior abdominal wall was prepared with Betadine and alcohol, and by us ing the same old gastrostomy opening, incision was made to the extent of about 3 to 4 mm. A trocar was inserted through the incision into the stomach, and after removing the stylet, the guidewire was inserted into the stomach. The guidewire was grabbed with a polypectomy snare, and then it was bro ught out through the mouth along with endoscope. To this end of the guidewire, #20 Microvasive G-tu be was tied in a loop fashion, and then it was brought out through the abdominal wall incision. The retention bumper was placed over the G-tube close to the skin. Tapered end of the gastrostomy tube was cut, the adapter was placed, and the procedure was terminated. PLAN: Recommend starting G-tube feeding in a.m. Dictated By: KATELYN FERRARI/MACK Conf#: [id number] DID#: [id number] CC: MARLA AKBAR MD;*EndCC*
[2017-01-07] MEDS: ALBUTEROL 18 GM INHALER INH SCH ×5 (01:26→19:53)
[2017-01-07] MEDS: IPRATROPIUM (HFA) 12.9 GM INHALER INH SCH ×4 (01:28→19:53)
[2017-01-07] MEDS: PANTOPRAZOLE 40 MG INJ IV SCH ×2 (05:49→17:46)
[2017-01-07 07:55] LABS: ADD SCAN DIFF NO
[2017-01-07 07:57] LABS: ABNORMAL IP MESSAGE 1; BASOPHILS % 0.6 % (0.0-2.0); EOSINOPHILS # 0.8 10^3/ul (0.0-0.5); EOSINOPHILS % 15.2 % (0.0-7.0); HEMATOCRIT 25.9 % (42.0-52.0); HEMOGLOBIN 8.5 g/dl (14.0-18.0); LYMPHOCYTES # 1.8 10^3/ul (0.8-2.9); LYMPHOCYTES % 33.7 % (15.0-51.0); MEAN CORPUSCULAR HEMOGLOBIN 29.1 pg (29.0-33.0); MEAN CORPUSCULAR HGB CONC 32.8 g/dl (32.0-37.0); MEAN CORPUSCULAR VOLUME 88.7 fl (82.0-101.0); MEAN PLATELET VOLUME 13.6 fl (7.4-10.4); MONOCYTE # 0.7 10^3/ul (0.3-0.9); MONOCYTES % 12.4 % (0.0-11.0); NEUTROPHIL # 2.1 10^3/ul (1.6-7.5); NEUTROPHILS % 37.9 % (39.0-77.0); NUCLEATED RED BLOOD CELLS% 0.4 /100WBC (0.0-0.0); PLATELET COUNT 230 10^3/UL (140-415); RED BLOOD COUNT 2.92 10^6/ul (4.70-6.10); RED CELL DISTRIBUTION WIDTH 16.2 % (11.5-14.5); WHITE BLOOD COUNT 5.4 10^3/ul (4.8-10.8)
[2017-01-07 08:28] LABS: CALCIUM 9.4 mg/dl (8.4-10.2); CREATININE 0.84 mg/dl (0.61-1.24); POTASSIUM 3.7 mmol/L (3.5-5.1)
[2017-01-07] MEDS: MINERAL OIL 30ML CUP PO SCH (09:21)
[2017-01-07] MEDS: COLLAGENASE 30 GM TUBE TOP SCH (09:22)
[2017-01-07] MEDS: METOCLOPRAMIDE 10 MG INJ IV SCH ×2 (09:22→22:11)
--- NOTE | 2017-01-07 13:05 | CONS ---
Date/Time of Note Date/Time of Note DATE: 01/07/17 TIME: 13:00 Assessment/Plan Assessment/Plan Chief Complaint/Hosp Course - severe sepsis due to HCAP - resolving - HCAP/VAP due to kleb (KPC) and pseudo - UTI due to acineto and pseudo related to chronic indwelling Vincent - multiple pressure ulcer - recurrent infection of ulcer of RLE due to MRSA and pseudo. Diphtheroides colonizers - colonization with MDR organisms, including MRSA and KPC - recurrent UGIB - Hx SDH with chronic encephalopathy - VDRF s/p trach - COPD - HTN - Intermittent atrial tachycardia and atrial fibrillation with preserved EF - h/o SBO/ileus/high residuals with probable gastroparesis - h/o aspiration PNA and HCAP due to Acinetobacter, Pseudomonas, and Proteus - h/o MRSA in urine - severe sepsis due to HCAP - HCAP/VAP due to kleb (KPC) and pseudo - UTI due to acineto and pseudo related to chronic indwelling Vincent - multiple pressure ulcer - recurrent infection of ulcer of RLE due to MRSA and pseudo. Diphtheroides colonizers - colonization with MDR organisms, including MRSA and KPC - recurrent UGIB - s/p severe sepsis due to HCAP - HCAP/VAP due to kleb (KPC) and pseudo - UTI due to acineto and pseudo related to chronic indwelling Vincent - multiple pressure ulcer - recurrent infection of ulcer of RLE due to MRSA and pseudo. 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 the wound culture grew carbapenemase producing kleb, enterococci and pseudo - Dysphagia s/p EGD and new G tube placement 09/15/2016 and 01/06/2017 - h/o infection of wound of RLE due to pseudomonas. 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/11/2016 - possible recurrent SBO per CT on 12/10/2016 - ileus - recurrent leukocytosis likely reactive from multiple emesis on 12/10/2016 & (remains afebrile) - MRSA nasal colonization - treated with Mupirocin 12/12/2016-12/22/2016 - Note: S/p tobramycin (12/12/2016-12/18/2016) for pseudomonas and acinetobacter, Cefepime (12/12/2016-12/21/2016) for KPC in sputum, and Linezolid (12/12/2016-2016) for MRSA Recommendations: - monitor off abx - continue local wound care - casanova cultures if temp >100.4F - contact isolation for MRSA - droplet precautions for KPC in his respiratory tract - DC planning in progress ([facility] resident) Management d/w [facility] and Dr. Tang Problems: Consultation Date/Type/Reason Admit Date/Time December 08, 2016 at 12:01 Initial Consult Date 12/09/16 Type of Consultation: Infectious Disease Referring Provider: MARLA AKBAR MD 24 HR Interval Summary Free Text/Dictation G -tube placed yesterday; DC planning to SNF if tolerates GT feeds per d/w nursing staff. Unable to perform ROS due to chronic encephalopathy. Subjective hx not possible: pt non-verbal Exam/Review of Systems Vital Signs Vitals Vital Signs Date Time Temp Pulse Resp B/P Pulse Ox O2 Delivery O2 Flow Rate FiO2 01/07/17 12:26 73 01/07/17 11:20 17 98 30 01/07/17 11:14 98.0 135/85 Intake and Output 01/06/17 01/06/17 01/07/17 15:00 23:00 07:00 Intake Total 550 ml Output Total 800 ml 500 ml Balance -800 ml 50 ml Exam Constitutional: frail, non-verbal, other (chronically debilitated) Head: normocephalic Eyes: nl sclera Neck: other (trach with vent) Respiratory: diminished breath sounds Cardiovascular: regular rate and rhythm Gastrointestinal: bowel sounds (present), other (GT with water currently infusing, LLQ colostomy intact with yellowish liquid stool), soft, mildly distended Genitourinary - Male: other (vincent cath present) Extremities: other (contracted). Bilateral foot drop noted. RUE PICC with no e/ o infection. Skin: other (wounds- see nurse notes for details) Results Result Diagram: 01/07/1762401/07/17624 Results 24 hrs Laboratory Tests Test 01/07/17 06:25 White Blood Count 5.4 Red Blood Count 2.92 L Hemoglobin 8.5 L Hematocrit 25.9 L Mean Corpuscular Volume 88.7 Mean Corpuscular Hemoglobin 29.1 Mean Corpuscular Hemoglobin Concent 32.8 Red Cell Distribution Width 16.2 H Platelet Count 230 Mean Platelet Volume 13.6 H Neutrophils % 37.9 L Lymphocytes % 33.7 Monocytes % 12.4 H Eosinophils % 15.2 H Basophils % 0.6 Nucleated Red Blood Cells % 0.4 H Neutrophils # 2.1 Lymphocytes # 1.8 Monocytes # 0.7 Eosinophils # 0.8 H Basophils # 0.0 Nucleated Red Blood Cells # 0.0 Sodium Level 138 Potassium Level 3.7 Chloride Level 104 Carbon Dioxide Level 27 Anion Gap 11 Blood Urea Nitrogen 16 Creatinine 0.84 Glucose Level 76 Calcium Level 9.4 Medications Medications Current Medications Pantoprazole (Protonix Iv) 40 mg BID@,18 IV Last administered on 01/07/17 05: 49; Admin Dose 40 MG; Start 12/09/16 at 06:00 Acetaminophen (Tylenol Supp) 650 mg Q4H PRN [place] PAIN OR TEMP ABOVE 38C; Start at 20:30 Morphine Sulfate (morphine) 2 mg Q4H PRN IV PAIN; Start 12/08/16 at 20:30 Collagenase (Santyl) 1 applic DAILY TOP Last administered on 01/07/17 09:22; Admin Dose 1 APPLIC; Start 12/09/16 at 09:00 Collagenase (Santyl) 1 applic PRN PRN TOP SOILED OR DISLODGED DRESSING; Start 12/09/16 at 04:30 Diazepam (Valium) 5 mg Q12H PRN IV ANXIETY Last administered on 12/09/16 23:41 ; Admin Dose 5 MG; Start 12/09/16 at 23:00 Ondansetron HCl (Zofran Inj) 4 mg Q4H PRN IV NAUSEA AND/OR VOMITING Last administered on 12/16/16 09:37; Admin Dose 4 MG; Start 12/10/16 at 17:00 Metoprolol Tartrate (Lopressor) 5 mg Q6H PRN IV SBP >160 or HR > 120 Last administered on 12/10/16 23:14; Admin Dose 5 MG; Start 12/10/16 at 17:00 Hydralazine HCl (Apresoline) 20 mg Q6H PRN IV SBP > 160 Last administered on 21:03; Admin Dose 20 MG; Start 12/10/16 at 17:00 IV Flush (NS 10 ml) 10 ml PRN PRN IV IV PROTOCOL; Start 12/15/16 at 15:30 IV Flush (NS 10 ml) 10 ml PRN PRN IV IV PROTOCOL; Start 12/16/16 at 18:00 Metoclopramide HCl (Reglan) 10 mg Q12 IV Last administered on 01/07/17 09:22; Admin Dose 10 MG; Start 12/24/16 at 13:00 Mineral Oil 30 ml 30 ml DAILY PO Last administered on 01/07/17 09:21; Admin Dose 30 ML; Start 01/04/17 at 09:00 Dextrose/Sodium Chloride (D5-1/2ns) 1,000 ml @ 50 mls/hr Q20H IV Last administered on 01/06/17 17:14; Admin Dose 50 MLS/HR; Start 01/06/17 at 17:30 Cyclobenzaprine HCl (Flexeril) 10 mg BID PO ; Start 01/07/17 at 13:00 KO LOVING NP Jan 07, 2017 13:05
[2017-01-07] MEDS: DEXTROSE 5%-0.45% NACL 1,000 ML IV SCH (13:52)
[2017-01-07] MEDS: CYCLOBENZAPRINE 10 MG TAB PO SCH ×2 (13:52→22:11)
--- NOTE | 2017-01-07 14:23 | PN ---
DATE: 01/07/2017 SUBJECTIVE: No new complaints. OBJECTIVE: VITAL SIGNS: Temperature 98, heart rate 73, respirations 17, blood pressure 135 /85, saturation 98% on 30% FIO2 on the ventilator. GENERAL: There is no communication. The is not responsive to verbal or painful stimuli. Last night, Dr. Pryor, GI colleague placed a PEG for this patient so that we can feed him through the feeding tube from the stomach and then in preparation for transferring the patient to a usp. ABDOMEN: Soft. The colostomy bag has some gas in it and some fluid, but it is not feces, it is like seroma. . ASSESSMENT: 1. The patient with PEG yesterday inserted. 2. Gastrointestinal function has been okay the past 2 weeks, on and off with constipation, which responded to cathartic treatment. PLAN: If the patient is going to go to a usp, it should be mentioned in transfer note that if the patient continues to have good bowel movement through colostomy every day is fine. If the patient stops having bowel movements, every 6 days, they should start patient on 2 liters of GoLYTELY through the gastrostomy tube over 12 hours and this is going to respond and clean the bowel from the residual retained stool, so that he is not going to develop hard pieces of stool that may cause an obstruction. I will follow the patient as long as the patient is here. Dictated By: VANIA PINEDA/MACK Conf#: [id number] DID#: [id number]
--- NOTE | 2017-01-07 16:31 | PN ---
Date/Time of Note Date/Time of Note DATE: 01/07/17 TIME: 16:27 Assessment/Plan VTE Prophylaxis VTE Prophylaxis Intervention: SCD's Lines/Catheters IV Catheter Type (from Nrs): PICC Line Central line still needed: Yes Urinary Cath still in place: Yes Reason Cath still needed: urinary retention Assessment/Plan Chief Complaint/Hosp Course Patient status post G-tube placement yesterday, started on G-tube feeding today , increase G-tube feeding gradually if patient tolerates, anticipate discharge to [facility] facility patient tolerates G-tube feeding, patient needs GoLYTELY weekly for chronic constipation. Assessment and plan: - Constipation, resolved. - Partial small bowel obstruction, resolved. Continue G-tube feeding. Dr. Teran is following patient in general surgery consultation. - Hypertension. Continue hydralazine. - S/p upper gastrointestinal bleed. Continue Protonix. Dr. Pryor is following in gastric gastroenterology consultation. - S/p sepsis secondary to healthcare acquired pneumonia. - Healthcare facility-acquired pneumonia. Status post treatment - UTI.S/p treatment. 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 - Ventilator dependent respiratory failure with tracheostomy. Dr. Saenz is following in pulmonology consultation. - Chronic obstructive pulmonary disease. Continue breathing treatment. - Dysphagia. -Chronic Chaudhari catheter. -Colostomy -Bedbound status. Further recommendations based on clinical course. Plan of care discussed with Dr. Meeks. Problems: Exam/Review of Systems Vital Signs Vitals Vital Signs Date Time Temp Pulse Resp B/P Pulse Ox O2 Delivery O2 Flow Rate FiO2 01/07/17 16:26 74 01/07/17 15:18 98.6 20 134/59 99 01/07/17 15:10 30 Intake and Output 01/06/17 01/06/17 01/07/17 15:00 23:00 07:00 Intake Total 550 ml Output Total 800 ml 500 ml Balance -800 ml 50 ml Exam Constitutional: frail, non-verbal Neck: other (Tracheostomy), supple Respiratory: diminished breath sounds Cardiovascular: Nl pulse Gastrointestinal: non-tender, other (colostomy), soft, GT. Genitourinary - Male: other (Chaudhari) Musculoskeletal: other (Contracted) Extremities: normal pulses Skin: other (Wounds) Results Result Diagram: 6/9/17 0625 6/9/17 0625 Results 24 hrs Laboratory Tests Test 01/07/17 06:25 White Blood Count 5.4 Red Blood Count 2.92 L Hemoglobin 8.5 L Hematocrit 25.9 L Mean Corpuscular Volume 88.7 Mean Corpuscular Hemoglobin 29.1 Mean Corpuscular Hemoglobin Concent 32.8 Red Cell Distribution Width 16.2 H Platelet Count 230 Mean Platelet Volume 13.6 H Neutrophils % 37.9 L Lymphocytes % 33.7 Monocytes % 12.4 H Eosinophils % 15.2 H Basophils % 0.6 Nucleated Red Blood Cells % 0.4 H Neutrophils # 2.1 Lymphocytes # 1.8 Monocytes # 0.7 Eosinophils # 0.8 H Basophils # 0.0 Nucleated Red Blood Cells # 0.0 Sodium Level 138 Potassium Level 3.7 Chloride Level 104 Carbon Dioxide Level 27 Anion Gap 11 Blood Urea Nitrogen 16 Creatinine 0.84 Glucose Level 76 Calcium Level 9.4 Medications Medications Current Medications Pantoprazole (Protonix Iv) 40 mg BID@18 IV Last administered on 01/07/17 05: 49; Admin Dose 40 MG; Start 12/09/16 at 06:00 Acetaminophen (Tylenol Supp) 650 mg Q4H PRN [place] PAIN OR TEMP ABOVE 38C; Start at 20:30 Morphine Sulfate (morphine) 2 mg Q4H PRN IV PAIN; Start 12/08/16 at 20:30 Collagenase (Santyl) 1 applic DAILY TOP Last administered on 01/07/17 09:22; Admin Dose 1 APPLIC; Start 12/09/16 at 09:00 Collagenase (Santyl) 1 applic PRN PRN TOP SOILED OR DISLODGED DRESSING; Start 12/09/16 at 04:30 Diazepam (Valium) 5 mg Q12H PRN IV ANXIETY Last administered on 12/09/16 23:41 ; Admin Dose 5 MG; Start 12/09/16 at 23:00 Ondansetron HCl (Zofran Inj) 4 mg Q4H PRN IV NAUSEA AND/OR VOMITING Last administered on 12/16/16 09:37; Admin Dose 4 MG; Start 12/10/16 at 17:00 Metoprolol Tartrate (Lopressor) 5 mg Q6H PRN IV SBP >160 or HR > 120 Last administered on 12/10/16 23:14; Admin Dose 5 MG; Start 12/10/16 at 17:00 Hydralazine HCl (Apresoline) 20 mg Q6H PRN IV SBP > 160 Last administered on 21:03; Admin Dose 20 MG; Start 12/10/16 at 17:00 IV Flush (NS 10 ml) 10 ml PRN PRN IV IV PROTOCOL; Start 12/15/16 at 15:30 IV Flush (NS 10 ml) 10 ml PRN PRN IV IV PROTOCOL; Start 12/16/16 at 18:00 Metoclopramide HCl (Reglan) 10 mg Q12 IV Last administered on 01/07/17 09:22; Admin Dose 10 MG; Start 12/24/16 at 13:00 Mineral Oil 30 ml 30 ml DAILY PO Last administered on 01/07/17 09:21; Admin Dose 30 ML; Start 01/04/17 at 09:00 Dextrose/Sodium Chloride (D5-1/2ns) 1,000 ml @ 50 mls/hr Q20H IV Last administered on 01/07/17 13:52; Admin Dose 50 MLS/HR; Start 01/06/17 at 17:30 Cyclobenzaprine HCl (Flexeril) 10 mg BID PO Last administered on 01/07/17 13:52 ; Admin Dose 10 MG; Start 01/07/17 at 13:00 AMY MORAN Jan 07, 2017 16:31
[2017-01-08] VITALS (23 sets, daily range): BP systolic 112–153; BP diastolic 62–89; PULSE 67–93; RESP 16–28
[2017-01-08] MEDS: IPRATROPIUM (HFA) 12.9 GM INHALER INH SCH ×5 (01:42→19:26)
[2017-01-08] MEDS: ALBUTEROL 18 GM INHALER INH SCH ×5 (01:42→19:27)
[2017-01-08] MEDS: PANTOPRAZOLE 40 MG INJ IV SCH ×2 (05:12→18:09)
[2017-01-08 07:12] LABS: ADD SCAN DIFF NO
[2017-01-08 07:36] LABS: ABNORMAL IP MESSAGE 1; BASOPHILS % 0.4 % (0.0-2.0); EOSINOPHILS # 0.9 10^3/ul (0.0-0.5); EOSINOPHILS % 11.2 % (0.0-7.0); HEMATOCRIT 27.1 % (42.0-52.0); HEMOGLOBIN 8.9 g/dl (14.0-18.0); LYMPHOCYTES % 25.5 % (15.0-51.0); MEAN CORPUSCULAR HEMOGLOBIN 28.7 pg (29.0-33.0); MEAN CORPUSCULAR HGB CONC 32.8 g/dl (32.0-37.0); MEAN CORPUSCULAR VOLUME 87.4 fl (82.0-101.0); MONOCYTES % 13.3 % (0.0-11.0); NEUTROPHIL # 3.9 10^3/ul (1.6-7.5); NEUTROPHILS % 49.3 % (39.0-77.0); PLATELET COUNT 204 10^3/UL (140-415); RED CELL DISTRIBUTION WIDTH 15.9 % (11.5-14.5); WHITE BLOOD COUNT 7.8 10^3/ul (4.8-10.8)
[2017-01-08] MEDS: DEXTROSE 5%-0.45% NACL 1,000 ML IV SCH (07:43)
[2017-01-08 07:58] LABS: CALCIUM 9.2 mg/dl (8.4-10.2); CREATININE 0.8 mg/dl (0.61-1.24)
[2017-01-08] MEDS: CYCLOBENZAPRINE 10 MG TAB PO SCH ×2 (08:57→21:22)
[2017-01-08] MEDS: MINERAL OIL 30ML CUP PO SCH (08:58)
[2017-01-08] MEDS: METOCLOPRAMIDE 10 MG INJ IV SCH ×2 (08:58→21:22)
[2017-01-08] MEDS: COLLAGENASE 30 GM TUBE TOP SCH (08:58)
--- NOTE | 2017-01-08 11:47 | PN ---
Date/Time of Note Date/Time of Note DATE: 01/08/17 TIME: 11:46 Assessment/Plan VTE Prophylaxis VTE Prophylaxis Intervention: other Lines/Catheters IV Catheter Type (from Nrs): PICC Line Central line still needed: Yes Urinary Cath still in place: Yes Reason Cath still needed: skin wounds contaminated by urine Assessment/Plan Chief Complaint/Hosp Course - Constipation, resolved. - Partial small bowel obstruction, resolved. Continue G-tube feeding. Dr. Teran is following patient in general surgery consultation. - Hypertension. Continue hydralazine. - S/p upper gastrointestinal bleed. Continue Protonix. Dr. Pryor is following in gastric gastroenterology consultation. - S/p sepsis secondary to healthcare acquired pneumonia. - Healthcare facility-acquired pneumonia. Status post treatment - UTI.S/p treatment. 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 - Ventilator dependent respiratory failure with tracheostomy. Dr. Saenz is following in pulmonology consultation. - Chronic obstructive pulmonary disease. Continue breathing treatment. - Dysphagia. -Chronic Chaudhari catheter. -Colostomy -Bedbound status. -Bedbound status. Problems: Subjective 24 Hr Interval Summary Free Text/Dictation Patient resting, vent in place Exam/Review of Systems Vital Signs Vitals Vital Signs Date Time Temp Pulse Resp B/P Pulse Ox O2 Delivery O2 Flow Rate FiO2 01/08/17 11:20 98.5 78 16 130/85 96 01/08/17 09:00 30 Intake and Output 01/07/17 01/07/17 01/08/17 15:00 23:00 07:00 Intake Total 1230 ml 1400 ml Output Total 490 ml 600 ml Balance 740 ml 800 ml Exam Constitutional: well developed Head: atraumatic, normocephalic Neck: supple Respiratory: diminished breath sounds Cardiovascular: regular rate and rhythm Gastrointestinal: non-tender, soft Extremities: normal pulses Results Result Diagram: 01/08/17 0615 01/08/17 0619 Results 24 hrs Laboratory Tests Test 01/08/17 06:15 01/08/17 06:19 White Blood Count 7.8 # Red Blood Count 3.10 L Hemoglobin 8.9 L Hematocrit 27.1 L Mean Corpuscular Volume 87.4 Mean Corpuscular Hemoglobin 28.7 L Mean Corpuscular Hemoglobin Concent 32.8 Red Cell Distribution Width 15.9 H Platelet Count 204 Mean Platelet Volume Neutrophils % 49.3 Lymphocytes % 25.5 Monocytes % 13.3 H Eosinophils % 11.2 H Basophils % 0.4 Nucleated Red Blood Cells % 0.0 Neutrophils # 3.9 Lymphocytes # 2.0 Monocytes # 1.0 H Eosinophils # 0.9 H Basophils # 0.0 Nucleated Red Blood Cells # 0.0 Sodium Level 139 Potassium Level 4.0 Chloride Level 103 Carbon Dioxide Level 27 Anion Gap 13 Blood Urea Nitrogen 13 Creatinine 0.80 Glucose Level 117 # Calcium Level 9.2 Medications Medications Current Medications Pantoprazole (Protonix Iv) 40 mg BID@06,18 IV Last administered on 01/08/17 05 :12; Admin Dose 40 MG; Start 12/09/16 at 06:00 Acetaminophen (Tylenol Supp) 650 mg Q4H PRN [place] PAIN OR TEMP ABOVE 38C; Start at 20:30 Morphine Sulfate (morphine) 2 mg Q4H PRN IV PAIN; Start 12/08/16 at 20:30 Collagenase (Santyl) 1 applic DAILY TOP Last administered on 01/07/17 09:22; Admin Dose 1 APPLIC; Start 12/09/16 at 09:00 Collagenase (Santyl) 1 applic PRN PRN TOP SOILED OR DISLODGED DRESSING; Start 12/09/16 at 04:30 Diazepam (Valium) 5 mg Q12H PRN IV ANXIETY Last administered on 12/09/16 23:41 ; Admin Dose 5 MG; Start 12/09/16 at 23:00 Ondansetron HCl (Zofran Inj) 4 mg Q4H PRN IV NAUSEA AND/OR VOMITING Last administered on 12/16/16 09:37; Admin Dose 4 MG; Start 12/10/16 at 17:00 Metoprolol Tartrate (Lopressor) 5 mg Q6H PRN IV SBP >160 or HR > 120 Last administered on 12/10/16 23:14; Admin Dose 5 MG; Start 12/10/16 at 17:00 Hydralazine HCl (Apresoline) 20 mg Q6H PRN IV SBP > 160 Last administered on 21:03; Admin Dose 20 MG; Start 12/10/16 at 17:00 IV Flush (NS 10 ml) 10 ml PRN PRN IV IV PROTOCOL; Start 12/15/16 at 15:30 IV Flush (NS 10 ml) 10 ml PRN PRN IV IV PROTOCOL; Start 12/16/16 at 18:00 Metoclopramide HCl (Reglan) 10 mg Q12 IV Last administered on 01/08/17 08:58; Admin Dose 10 MG; Start 12/24/16 at 13:00 Mineral Oil 30 ml 30 ml DAILY PO Last administered on 01/08/17 08:58; Admin Dose 30 ML; Start 01/04/17 at 09:00 Dextrose/Sodium Chloride (D5-1/2ns) 1,000 ml @ 50 mls/hr Q20H IV Last administered on 01/08/17 07:43; Admin Dose 50 MLS/HR; Start 01/06/17 at 17:30 Cyclobenzaprine HCl (Flexeril) 10 mg BID PO Last administered on 01/08/17 08: 57; Admin Dose 10 MG; Start 01/07/17 at 13:00 OLI ZUNIGA Jan 08, 2017 11:47
--- NOTE | 2017-01-08 16:02 | PN ---
DATE: 01/08/2017 SUBJECTIVE: No new complaint, no new events. OBJECTIVE: GENERAL: The patient is on the ventilator through tracheostomy tube. Eyes are closed. Nonverbal, no response to verbal stimulation or deep painful stimulation. VITAL SIGNS: Temperature 98.5, heart rate 78 regular, respirations 16, blood pressure 130/85, satur ation 96% on FIO2 30% through the ventilator. ABDOMEN: Soft. G-tube is in place, no problem. The G-tube feeding is running 50 mL/hour. LABORATORY DATA: WBC 7800 with 49% segmented, hemoglobin 8.9, hematocrit 27.1. The patient has not had any bowel movement in the past 3 days but as was mentioned before, the bag w as half full with gas yesterday. Today there is not much of gas or stool in the colostomy bag. PLAN: Continue current care. We will follow. Dictated By: VANIA MAE MD PS/MACK Conf#: [id number] DID#: [id number]
--- NOTE | 2017-01-08 17:04 | CONS ---
DATE OF ADMISSION: 12/08/2016 DATE OF CONSULTATION: CLINICAL IMPRESSION: The patient is intubated. He is unable to give any history. The patient had a percutaneous endoscopic gastrostomy placed yesterday and per the physical exam, he is intubated. He is unresponsive and gastrostomy tube is functioning appropriately. Abdomen is so ft. CLINICAL IMPRESSION: Gastrostomy tube functioning well. PLAN: Continue G-tube feeding. Dictated By: KATELYN SILVERMAN MD NC/NTS Conf#: [id number] DID#: [id number] CC: KATELYN SILVERMAN MD; MARLA AKBAR MD;*EndCC*
--- NOTE | 2017-01-08 19:12 | CONS ---
Date/Time of Note Date/Time of Note DATE: 01/08/17 TIME: 19:10 Assessment/Plan Assessment/Plan Chief Complaint/Hosp Course - severe sepsis due to HCAP - resolving - HCAP/VAP due to kleb (KPC) and pseudo - UTI due to acineto and pseudo related to chronic indwelling Chaudhari - multiple pressure ulcer - recurrent infection of ulcer of RLE due to MRSA and pseudo. 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 Diphtheroides colonizers - colonization with MDR organisms, including MRSA and KPC - recurrent UGIB - s/p severe sepsis due to HCAP - HCAP/VAP due to kleb (KPC) and pseudo - UTI due to acineto and pseudo related to chronic indwelling Chaudhari - multiple pressure ulcer - recurrent infection of ulcer of RLE due to MRSA and pseudo. 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 the wound culture grew carbapenemase producing kleb, enterococci and pseudo - Dysphagia s/p EGD and new G tube placement 09/15/2016 and 01/06/2017 - h/o infection of wound of RLE due to pseudomonas. 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/11/2016 - possible recurrent SBO per CT on 12/10/2016 - ileus - recurrent leukocytosis likely reactive from multiple emesis on 12/10/2016 & (remains afebrile) - MRSA nasal colonization - treated with Mupirocin 12/12/2016-12/22/2016 - Note: S/p tobramycin (12/12/2016-12/18/2016) for pseudomonas and acinetobacter, Cefepime (12/12/2016-12/21/2016) for KPC in sputum, and Linezolid (12/12/2016-2016) for MRSA recommendations: - will monitor papules on his abdomen and extremities/hands - casanova cultures if temp >100.4F - contact isolation for MRSA - droplet precautions for KPC in his respiratory tract Problems: Consultation Date/Type/Reason Admit Date/Time December 08, 2016 at 12:01 Initial Consult Date 12/10/16 Type of Consultation: Infectious Disease Referring Provider: MARLA AKBAR MD 24 HR Interval Summary Subjective hx not possible: pt non-verbal Exam/Review of Systems Vital Signs Vitals Vital Signs Date Time Temp Pulse Resp B/P Pulse Ox O2 Delivery O2 Flow Rate FiO2 01/08/17 17:10 55 18 100 30 01/08/17 15:21 98.4 112/62 Intake and Output 01/07/17 01/07/17 01/08/17 15:00 23:00 07:00 Intake Total 1230 ml 1400 ml Output Total 490 ml 600 ml Balance 740 ml 800 ml Exam Constitutional: frail, non-verbal Psych: confusion Head: other (temporal wasting b/l) Eyes: nl lids ENMT: nl external ears & nose, nl nasal mucosa & septum Neck: other (trach site is dressed) Respiratory: diminished breath sounds Cardiovascular: nl pulses, regular rate and rhythm Gastrointestinal: non-tender, other (GT colostomty in place), soft Musculoskeletal: other (atrophy) Extremities: No edema Neurological: lethargic, unresponsive Skin: other (papules on his lower abdomen, unchanged), rash or lesions ( superficial skin ulcers on b/l LE) Results Result Diagram: 01/08/17 0615 01/08/17 0619 Results 24 hrs Laboratory Tests Test 01/08/17 06:15 01/08/17 06:19 White Blood Count 7.8 # Red Blood Count 3.10 L Hemoglobin 8.9 L Hematocrit 27.1 L Mean Corpuscular Volume 87.4 Mean Corpuscular Hemoglobin 28.7 L Mean Corpuscular Hemoglobin Concent 32.8 Red Cell Distribution Width 15.9 H Platelet Count 204 Mean Platelet Volume Neutrophils % 49.3 Lymphocytes % 25.5 Monocytes % 13.3 H Eosinophils % 11.2 H Basophils % 0.4 Nucleated Red Blood Cells % 0.0 Neutrophils # 3.9 Lymphocytes # 2.0 Monocytes # 1.0 H Eosinophils # 0.9 H Basophils # 0.0 Nucleated Red Blood Cells # 0.0 Sodium Level 139 Potassium Level 4.0 Chloride Level 103 Carbon Dioxide Level 27 Anion Gap 13 Blood Urea Nitrogen 13 Creatinine 0.80 Glucose Level 117 # Calcium Level 9.2 Medications Medications Current Medications Pantoprazole (Protonix Iv) 40 mg BID@ IV Last administered on 01/08/17 18 :09; Admin Dose 40 MG; Start 12/09/16 at 06:00 Acetaminophen (Tylenol Supp) 650 mg Q4H PRN [place] PAIN OR TEMP ABOVE 38C; Start at 20:30 Morphine Sulfate (morphine) 2 mg Q4H PRN IV PAIN; Start 12/08/16 at 20:30 Collagenase (Santyl) 1 applic DAILY TOP Last administered on 01/07/17 09:22; Admin Dose 1 APPLIC; Start 12/09/16 at 09:00 Collagenase (Santyl) 1 applic PRN PRN TOP SOILED OR DISLODGED DRESSING; Start 12/09/16 at 04:30 Diazepam (Valium) 5 mg Q12H PRN IV ANXIETY Last administered on 12/09/16 23:41 ; Admin Dose 5 MG; Start 12/09/16 at 23:00 Ondansetron HCl (Zofran Inj) 4 mg Q4H PRN IV NAUSEA AND/OR VOMITING Last administered on 12/16/16 09:37; Admin Dose 4 MG; Start 12/10/16 at 17:00 Metoprolol Tartrate (Lopressor) 5 mg Q6H PRN IV SBP >160 or HR > 120 Last administered on 12/10/16 23:14; Admin Dose 5 MG; Start 12/10/16 at 17:00 Hydralazine HCl (Apresoline) 20 mg Q6H PRN IV SBP > 160 Last administered on 21:03; Admin Dose 20 MG; Start 12/10/16 at 17:00 IV Flush (NS 10 ml) 10 ml PRN PRN IV IV PROTOCOL; Start 12/15/16 at 15:30 IV Flush (NS 10 ml) 10 ml PRN PRN IV IV PROTOCOL; Start 12/16/16 at 18:00 Metoclopramide HCl (Reglan) 10 mg Q12 IV Last administered on 01/08/17 08:58; Admin Dose 10 MG; Start 12/24/16 at 13:00 Mineral Oil 30 ml 30 ml DAILY PO Last administered on 01/08/17 08:58; Admin Dose 30 ML; Start 01/04/17 at 09:00 Dextrose/Sodium Chloride (D5-1/2ns) 1,000 ml @ 50 mls/hr Q20H IV Last administered on 01/08/17 07:43; Admin Dose 50 MLS/HR; Start 01/06/17 at 17:30 Cyclobenzaprine HCl (Flexeril) 10 mg BID PO Last administered on 01/08/17 08: 57; Admin Dose 10 MG; Start 01/07/17 at 13:00 LIZZY HECK M.D. Jan 08, 2017 19:12
[2017-01-09] VITALS (23 sets, daily range): BP systolic 116–152; BP diastolic 57–77; PULSE 53–73; RESP 16–24
[2017-01-09] MEDS: ALBUTEROL 18 GM INHALER INH SCH ×4 (01:32→19:41)
[2017-01-09] MEDS: IPRATROPIUM (HFA) 12.9 GM INHALER INH SCH ×4 (01:32→19:41)
[2017-01-09] MEDS: PANTOPRAZOLE 40 MG INJ IV SCH ×2 (05:57→18:17)
[2017-01-09] MEDS: DEXTROSE 5%-0.45% NACL 1,000 ML IV SCH (05:57)
[2017-01-09] MEDS: MINERAL OIL 30ML CUP PO SCH (08:50)
[2017-01-09] MEDS: CYCLOBENZAPRINE 10 MG TAB PO SCH ×2 (08:50→20:38)
[2017-01-09] MEDS: METOCLOPRAMIDE 10 MG INJ IV SCH ×2 (08:50→20:38)
[2017-01-09] MEDS: COLLAGENASE 30 GM TUBE TOP SCH (08:51)
--- NOTE | 2017-01-09 11:11 | PN ---
Date/Time of Note Date/Time of Note DATE: 01/09/17 TIME: 11:10 Assessment/Plan VTE Prophylaxis VTE Prophylaxis Intervention: other Lines/Catheters IV Catheter Type (from Nrsg): PICC Line Central line still needed: Yes Urinary Cath still in place: Yes Reason Cath still needed: skin wounds contaminated by urine Assessment/Plan Chief Complaint/Hosp Course - Constipation, resolved. - Partial small bowel obstruction, resolved. Continue G-tube feeding. Dr. Teran is following patient in general surgery consultation. - Hypertension. Continue hydralazine. - S/p upper gastrointestinal bleed. Continue Protonix. Dr. Pryor is following in gastric gastroenterology consultation. - S/p sepsis secondary to healthcare acquired pneumonia. - Healthcare facility-acquired pneumonia. Status post treatment - UTI.S/p treatment. 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 - Ventilator dependent respiratory failure with tracheostomy. Dr. Saenz is following in pulmonology consultation. - Chronic obstructive pulmonary disease. Continue breathing treatment. - Dysphagia. -Chronic Chaudhari catheter. -Colostomy -Bedbound status. -Bedbound status. Problems: Subjective 24 Hr Interval Summary Free Text/Dictation Patient remain sedated, trach in place Exam/Review of Systems Vital Signs Vitals Vital Signs Date Time Temp Pulse Resp B/P Pulse Ox O2 Delivery O2 Flow Rate FiO2 01/09/17 08:26 53 01/09/17 07:30 98.1 20 116/57 98 01/09/17 05:30 30 Intake and Output 01/08/17 01/08/17 01/09/17 15:00 23:00 07:00 Intake Total 850 ml 1300 ml Output Total 940 ml 850 ml Balance -90 ml 450 ml Exam Constitutional: well developed Head: atraumatic, normocephalic Neck: supple Respiratory: diminished breath sounds Cardiovascular: regular rate and rhythm Gastrointestinal: non-tender, soft Extremities: normal pulses Results Result Diagram: 01/08/1715 01/08/1719 Medications Medications Current Medications Pantoprazole (Protonix Iv) 40 mg BID@06,18 IV Last administered on 01/09/17t 05 :57; Admin Dose 40 MG; Start 12/09/16 at 06:00 Acetaminophen (Tylenol Supp) 650 mg Q4H PRN [place] PAIN OR TEMP ABOVE 38C; Start at 20:30 Morphine Sulfate (morphine) 2 mg Q4H PRN IV PAIN; Start 12/08/16 at 20:30 Collagenase (Santyl) 1 applic DAILY TOP Last administered on 01/07/17 09:22; Admin Dose 1 APPLIC; Start 12/09/16 at 09:00 Collagenase (Santyl) 1 applic PRN PRN TOP SOILED OR DISLODGED DRESSING; Start 12/09/16 at 04:30 Diazepam (Valium) 5 mg Q12H PRN IV ANXIETY Last administered on 12/09/16 23:41 ; Admin Dose 5 MG; Start 12/09/16 at 23:00 Ondansetron HCl (Zofran Inj) 4 mg Q4H PRN IV NAUSEA AND/OR VOMITING Last administered on 12/16/16 09:37; Admin Dose 4 MG; Start 12/10/16 at 17:00 Metoprolol Tartrate (Lopressor) 5 mg Q6H PRN IV SBP >160 or HR > 120 Last administered on 12/10/16 23:14; Admin Dose 5 MG; Start 12/10/16 at 17:00 Hydralazine HCl (Apresoline) 20 mg Q6H PRN IV SBP > 160 Last administered on 21:03; Admin Dose 20 MG; Start 12/10/16 at 17:00 IV Flush (NS 10 ml) 10 ml PRN PRN IV IV PROTOCOL; Start 12/15/16 at 15:30 IV Flush (NS 10 ml) 10 ml PRN PRN IV IV PROTOCOL; Start 12/16/16 at 18:00 Metoclopramide HCl (Reglan) 10 mg Q12 IV Last administered on 01/09/17 08:50; Admin Dose 10 MG; Start 12/24/16 at 13:00 Mineral Oil 30 ml 30 ml DAILY PO Last administered on 01/09/17 08:50; Admin Dose 30 ML; Start 01/04/17 at 09:00 Dextrose/Sodium Chloride (D5-1/2ns) 1,000 ml @ 50 mls/hr Q20H IV Last administered on 01/09/17 05:57; Admin Dose 50 MLS/HR; Start 01/06/17 at 17:30 Cyclobenzaprine HCl (Flexeril) 10 mg BID PO Last administered on 01/09/17 08: 50; Admin Dose 10 MG; Start 01/07/17 at 13:00 OLI ZUNIGA Jan 09, 2017 11:11
--- NOTE | 2017-01-09 15:46 | PN ---
DATE: 01/09/2017 SUBJECTIVE: No complaint. No communication. OBJECTIVE: No communication. The patient is on the ventilator through tracheostomy. Eyes are clos ed. No verbal responses to verbal stimuli. No response to pressure stimuli. Vital signs: Temperat ure 99.1, heart rate 77, respirations 18, blood pressure 144/77, saturation 95% on FIO2 30% on the v entilator. LABORATORY DATA: There is no new lab result available today. Abdomen is flat, soft. The PEG line is intact. Tube feeding is continuous at 50 mL per hour. The patient has not had any real bowel mo vement the past 5 days, according to the chart, but the patient has been continued on tube feeding. PLAN: We will watch the patient for a couple of more days. If no more bowel movement, then we have to give a boosted dose of GoLYTELY. I will continue following the patient and observing the GI fun ction. Dictated By: VANIA MAE MD PS/MACK Conf#: [id number] DID#: [id number]
--- NOTE | 2017-01-09 19:42 | CONS ---
Date/Time of Note Date/Time of Note DATE: 01/09/17 TIME: 19:41 Assessment/Plan Assessment/Plan Chief Complaint/Hosp Course - s/p severe sepsis due to HCAP - HCAP/VAP due to kleb (KPC) and pseudo - UTI due to acineto and pseudo related to chronic indwelling Chaudhari - multiple pressure ulcer - recurrent infection of ulcer of RLE due to MRSA and pseudo. 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 the wound culture grew carbapenemase producing kleb, enterococci and pseudo - Dysphagia s/p EGD and new G tube placement 09/15/2016 and 01/06/2017 - h/o infection of wound of RLE due to pseudomonas. 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/11/2016 - possible recurrent SBO per CT on 12/10/2016 - ileus - recurrent leukocytosis likely reactive from multiple emesis on 12/10/2016 & (remains afebrile) - MRSA nasal colonization - treated with Mupirocin 12/12/2016-12/22/2016 - constipation - Note: S/p tobramycin (12/12/2016-12/18/2016) for pseudomonas and acinetobacter, Cefepime (12/12/2016-12/21/2016) for KPC in sputum, and Linezolid (12/12/2016-2016) for MRSA recommendations: - will monitor papules on his abdomen and extremities/hands - casanova cultures if temp >100.4F - monitor off abx - contact isolation for MRSA - droplet precautions for KPC in his respiratory tract Management d/w Dr. Godfrey. Problems: Consultation Date/Type/Reason Admit Date/Time December 08, 2016 at 12:01 Initial Consult Date 12/09/16 Type of Consultation: Infectious Disease Referring Provider: MARLA AKBAR MD 24 HR Interval Summary Free Text/Dictation Unable to perform ROS due to chronic encephalopathy. No BM in a few days and continuing to monitor GI fxn closely as recommended by Surgery. Subjective hx not possible: pt non-verbal Exam/Review of Systems Vital Signs Vitals Vital Signs Date Time Temp Pulse Resp B/P Pulse Ox O2 Delivery O2 Flow Rate FiO2 01/09/17 19:16 98.2 56 22 152/67 97 01/09/17 17:19 30 Intake and Output 01/08/17 01/08/17 01/09/17 15:00 23:00 07:00 Intake Total 850 ml 1300 ml Output Total 940 ml 850 ml Balance -90 ml 450 ml Exam Constitutional: frail, non-verbal, other (chronically debilitated) Head: normocephalic Eyes: nl sclera Neck: other (trach with vent) Respiratory: diminished breath sounds Cardiovascular: regular rate and rhythm Gastrointestinal: bowel sounds (present), other (GT with tube feeds, LLQ colostomy intact with yellowish output; no stool), soft, mildly distended Genitourinary - Male: other (Chaudhari cath present) Extremities: other (contracted). Bilateral foot drop noted. RUE PICC with no e/ o infection. Skin: other (wounds- see nurse notes for details), rash or lesions (papules on his lower abdomen, unchanged; superficial skin ulcers on b/l LE) Results Result Diagram: 01/08/1715 01/08/17618 Medications Medications Current Medications Pantoprazole (Protonix Iv) 40 mg BID@,18 IV Last administered on 01/09/17t 18 :17; Admin Dose 40 MG; Start 12/09/16 at 06:00 Acetaminophen (Tylenol Supp) 650 mg Q4H PRN [place] PAIN OR TEMP ABOVE 38C; Start at 20:30 Morphine Sulfate (morphine) 2 mg Q4H PRN IV PAIN; Start 12/08/16 at 20:30 Collagenase (Santyl) 1 applic DAILY TOP Last administered on 01/07/17 09:22; Admin Dose 1 APPLIC; Start 12/09/16 at 09:00 Collagenase (Santyl) 1 applic PRN PRN TOP SOILED OR DISLODGED DRESSING; Start 12/09/16 at 04:30 Diazepam (Valium) 5 mg Q12H PRN IV ANXIETY Last administered on 12/09/16 23:41 ; Admin Dose 5 MG; Start 12/09/16 at 23:00 Ondansetron HCl (Zofran Inj) 4 mg Q4H PRN IV NAUSEA AND/OR VOMITING Last administered on 12/16/16 09:37; Admin Dose 4 MG; Start 12/10/16 at 17:00 Metoprolol Tartrate (Lopressor) 5 mg Q6H PRN IV SBP >160 or HR > 120 Last administered on 12/10/16 23:14; Admin Dose 5 MG; Start 12/10/16 at 17:00 Hydralazine HCl (Apresoline) 20 mg Q6H PRN IV SBP > 160 Last administered on 21:03; Admin Dose 20 MG; Start 12/10/16 at 17:00 IV Flush (NS 10 ml) 10 ml PRN PRN IV IV PROTOCOL; Start 12/15/16 at 15:30 IV Flush (NS 10 ml) 10 ml PRN PRN IV IV PROTOCOL; Start 12/16/16 at 18:00 Metoclopramide HCl (Reglan) 10 mg Q12 IV Last administered on 01/09/17 08:50; Admin Dose 10 MG; Start 12/24/16 at 13:00 Mineral Oil 30 ml 30 ml DAILY PO Last administered on 01/09/17 08:50; Admin Dose 30 ML; Start 01/04/17 at 09:00 Dextrose/Sodium Chloride (D5-1/2ns) 1,000 ml @ 50 mls/hr Q20H IV Last administered on 01/09/17 05:57; Admin Dose 50 MLS/HR; Start 01/06/17 at 17:30 Cyclobenzaprine HCl (Flexeril) 10 mg BID PO Last administered on 6/11/17at 08: 50; Admin Dose 10 MG; Start 01/07/17 at 13:00 KO LOVING NP Jan 09, 2017 19:42 KO LOVING NP Jan 09, 2017 19:42
[2017-01-10] VITALS (24 sets, daily range): BP systolic 107–177; BP diastolic 58–92; PULSE 64–75; RESP 16–25
[2017-01-10] MEDS: DEXTROSE 5%-0.45% NACL 1,000 ML IV SCH ×2 (00:32→21:01)
[2017-01-10] MEDS: ALBUTEROL 18 GM INHALER INH SCH ×4 (03:15→19:35)
[2017-01-10] MEDS: IPRATROPIUM (HFA) 12.9 GM INHALER INH SCH ×4 (03:15→19:35)
[2017-01-10] MEDS: PANTOPRAZOLE 40 MG INJ IV SCH ×2 (05:52→17:12)
[2017-01-10] MEDS: METOCLOPRAMIDE 10 MG INJ IV SCH ×2 (09:20→21:00)
[2017-01-10] MEDS: CYCLOBENZAPRINE 10 MG TAB PO SCH ×2 (09:21→21:00)
[2017-01-10] MEDS: MINERAL OIL 30ML CUP PO SCH (09:21)
[2017-01-10] MEDS: COLLAGENASE 30 GM TUBE TOP SCH (09:22)
[2017-01-10] MEDS ORDERED: PEG/ELECTROLYTES 4L BTL GTB ONE ×2 (13:30→14:00)
--- NOTE | 2017-01-10 14:30 | PN ---
DATE: 01/10/2017 SUBJECTIVE: No complaint. No communication. OBJECTIVE GENERAL: Patient is lying down in the bed on the ventilator. Eyes closed. No response to verbal s timuli. No communication. VITAL SIGNS: Temperature 99.3, heart rate 70 and up to 80, respirations 20, blood pressure 171/82, saturation 99% on FIO2 of 30% on the ventilator. ABDOMEN: Soft, bowel sounds present. No stool in the colostomy bag and no gas in the colostomy bag , taking from the computer the last time that he had a bowel movement was about 7 days ago after he received GoLYTELY 2 liters. LABORATORY DATA: No labs today. PLAN: Today we are going to give another dose of GoLYTELY 2 liters over 10 hours through the G-tube to make sure that the patient is going to have a bowel movement before he leaves the hospital. I d iscussed the matter with the patient's daughter in detail and she understood that. Dictated By: VANIA PINEDA/MACK Conf#: [id number] DID#: [id number]
--- NOTE | 2017-01-10 14:59 | PN ---
Date/Time of Note Date/Time of Note DATE: 01/10/17 TIME: 14:58 Assessment/Plan VTE Prophylaxis VTE Prophylaxis Intervention: SCD's Lines/Catheters IV [facility] (from [facility]): PICC Line Central line still needed: Yes Urinary Cath still in place: Yes Reason Cath still needed: urinary retention Assessment/Plan Chief Complaint/Hosp Course Patient tolerates G-tube feeding well, no acute events overnight, discussed with case management no bed available at long term facility today. Assessment and plan: - Constipation, resolved. - Partial small bowel obstruction, resolved. Continue G-tube feeding. Dr. Teran is following patient in general surgery consultation. - Hypertension. Continue hydralazine. - S/p upper gastrointestinal bleed. Continue Protonix. Dr. Pryor is following in gastric gastroenterology consultation. - S/p sepsis secondary to healthcare acquired pneumonia. - Healthcare facility-acquired pneumonia. Status post treatment - UTI.S/p treatment. 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 - Ventilator dependent respiratory failure with tracheostomy. Dr. Saenz is following in pulmonology consultation. - Chronic obstructive pulmonary disease. Continue breathing treatment. - Dysphagia. -Chronic Chaudhari catheter. -Colostomy -Bedbound status. Further recommendations based on clinical course. Plan of care discussed with Dr. Meeks. Problems: Exam/Review of Systems Vital Signs Vitals Vital Signs Date Time Temp Pulse Resp B/P Pulse Ox O2 Delivery O2 Flow Rate FiO2 01/10/17 13:00 69 18 98 30 01/10/17 12:00 153/80 01/10/17 11:38 99.3 01/10/17 09:15 Mechanical Ventilator Intake and Output 01/09/17 01/09/17 01/10/17 15:00 23:00 07:00 Intake Total 1350 ml 1350 ml Output Total 730 ml 950 ml Balance 620 ml 400 ml Exam Constitutional: frail, non-verbal Neck: other (Tracheostomy), supple Respiratory: diminished breath sounds Cardiovascular: Nl pulse Gastrointestinal: non-tender, other (colostomy), soft, GT. Genitourinary - Male: other (Chaudhari) Musculoskeletal: other (Contracted) Extremities: normal pulses Skin: other (Wounds) Results Result Diagram: 01/08/1761401/08/17618 Medications Medications Current Medications Pantoprazole (Protonix Iv) 40 mg BID@06,18 IV Last administered on 01/10/17 05 :52; Admin Dose 40 MG; Start 12/09/16 at 06:00 Acetaminophen (Tylenol Supp) 650 mg Q4H PRN [place] PAIN OR TEMP ABOVE 38C; Start at 20:30 Morphine Sulfate (morphine) 2 mg Q4H PRN IV PAIN; Start 12/08/16 at 20:30 Collagenase (Santyl) 1 applic DAILY TOP Last administered on 01/10/17 09:22; Admin Dose 1 APPLIC; Start 12/09/16 at 09:00 Collagenase (Santyl) 1 applic PRN PRN TOP SOILED OR DISLODGED DRESSING; Start 12/09/16 at 04:30 Diazepam (Valium) 5 mg Q12H PRN IV ANXIETY Last administered on 12/09/16 23:41 ; Admin Dose 5 MG; Start 12/09/16 at 23:00 Ondansetron HCl (Zofran Inj) 4 mg Q4H PRN IV NAUSEA AND/OR VOMITING Last administered on 12/16/16 09:37; Admin Dose 4 MG; Start 12/10/16 at 17:00 Metoprolol Tartrate (Lopressor) 5 mg Q6H PRN IV SBP >160 or HR > 120 Last administered on 12/10/16 23:14; Admin Dose 5 MG; Start 12/10/16 at 17:00 Hydralazine HCl (Apresoline) 20 mg Q6H PRN IV SBP > 160 Last administered on 21:03; Admin Dose 20 MG; Start 12/10/16 at 17:00 IV Flush (NS 10 ml) 10 ml PRN PRN IV IV PROTOCOL; Start 12/15/16 at 15:30 IV Flush (NS 10 ml) 10 ml PRN PRN IV IV PROTOCOL; Start 12/16/16 at 18:00 Metoclopramide HCl (Reglan) 10 mg Q12 IV Last administered on 01/10/17 09:20; Admin Dose 10 MG; Start 12/24/16 at 13:00 Mineral Oil 30 ml 30 ml DAILY PO Last administered on 01/10/17 09:21; Admin Dose 30 ML; Start 01/04/17 at 09:00 Dextrose/Sodium Chloride (D5-1/2ns) 1,000 ml @ 50 mls/hr Q20H IV Last administered on 01/10/17 00:32; Admin Dose 50 MLS/HR; Start 01/06/17 at 17:30 Cyclobenzaprine HCl (Flexeril) 10 mg BID PO Last administered on 01/10/17 09: 21; Admin Dose 10 MG; Start 01/07/17 at 13:00 AMY MORAN Jan 10, 2017 14:59
[2017-01-10] MEDS: hydrALAzine 20 MG INJ IV PRN (17:12)
--- NOTE | 2017-01-10 20:05 | CONS ---
Date/Time of Note Date/Time of Note DATE: 01/10/17 TIME: 20:05 Assessment/Plan Assessment/Plan Chief Complaint/Hosp Course - s/p severe sepsis due to HCAP - HCAP/VAP due to kleb (KPC) and pseudo - UTI due to acineto and pseudo related to chronic indwelling Chaudhari - multiple pressure ulcer - recurrent infection of ulcer of RLE due to MRSA and pseudo. 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 the wound culture grew carbapenemase producing kleb, enterococci and pseudo - Dysphagia s/p EGD and new G tube placement 09/15/2016 and 01/06/2017 - h/o infection of wound of RLE due to pseudomonas. 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/11/2016 - possible recurrent SBO per CT on 12/10/2016 - ileus - recurrent leukocytosis likely reactive from multiple emesis on 12/10/2016 & (remains afebrile) - MRSA nasal colonization - treated with Mupirocin 12/12/2016-12/22/2016 - constipation - Note: S/p tobramycin (12/12/2016-12/18/2016) for pseudomonas and acinetobacter, Cefepime (12/12/2016-12/21/2016) for KPC in sputum, and Linezolid (12/12/2016-2016) for MRSA recommendations: - will monitor papules on his abdomen and extremities/hands - casanova cultures if temp >100.4F - monitor off abx - contact isolation for MRSA - droplet precautions for KPC in his respiratory tract Management d/w Dr. Tang. Problems: Consultation Date/Type/Reason Admit Date/Time December 08, 2016 at 12:01 Initial Consult Date 12/09/16 Type of Consultation: Infectious Disease Referring Provider: MARLA AKBAR MD 24 HR Interval Summary Free Text/Dictation Getting golytely and awaiting return of bowel fxn prior to DC back to subacte- Surgery following. Unable to perform ROS d/t chronic encephalopathy. Subjective hx not possible: pt non-verbal Exam/Review of Systems Vital Signs Vitals Vital Signs Date Time Temp Pulse Resp B/P Pulse Ox O2 Delivery O2 Flow Rate FiO2 01/10/17 19:36 78 22 96 30 01/10/17 18:00 152/77 01/10/17 16:15 98.8 01/10/17 09:15 Mechanical Ventilator Intake and Output 01/09/17 01/09/17 01/10/17 15:00 23:00 07:00 Intake Total 1350 ml 1350 ml Output Total 730 ml 950 ml Balance 620 ml 400 ml Exam Constitutional: frail, non-verbal, other (chronically debilitated) Head: normocephalic Eyes: nl sclera Neck: other (trach with vent) Respiratory: diminished breath sounds Cardiovascular: regular rate and rhythm Gastrointestinal: bowel sounds (present), other (GT with tube feeds on hold, LLQ colostomy intact with yellowish output -no stool), soft, mildly distended Genitourinary - Male: other (Chaudhari cath present) Extremities: other (contracted). Bilateral foot drop noted. RUE PICC with no e/ o infection. Skin: other (wounds- see nurse notes for details), rash or lesions (papules on his lower abdomen and few on BUE, unchanged; superficial skin ulcers on b/l LE Results Result Diagram: 01/08/1715 01/08/17618 Medications Medications Current Medications Pantoprazole (Protonix Iv) 40 mg BID@06,18 IV Last administered on 01/10/17t 17 :12; Admin Dose 40 MG; Start 12/09/16 at 06:00 Acetaminophen (Tylenol Supp) 650 mg Q4H PRN [place] PAIN OR TEMP ABOVE 38C; Start at 20:30 Morphine Sulfate (morphine) 2 mg Q4H PRN IV PAIN; Start 12/08/16 at 20:30 Collagenase (Santyl) 1 applic DAILY TOP Last administered on 01/10/17 09:22; Admin Dose 1 APPLIC; Start 12/09/16 at 09:00 Collagenase (Santyl) 1 applic PRN PRN TOP SOILED OR DISLODGED DRESSING; Start 12/09/16 at 04:30 Diazepam (Valium) 5 mg Q12H PRN IV ANXIETY Last administered on 12/09/16 23:41 ; Admin Dose 5 MG; Start 12/09/16 at 23:00 Ondansetron HCl (Zofran Inj) 4 mg Q4H PRN IV NAUSEA AND/OR VOMITING Last administered on 12/16/16 09:37; Admin Dose 4 MG; Start 12/10/16 at 17:00 Metoprolol Tartrate (Lopressor) 5 mg Q6H PRN IV SBP >160 or HR > 120 Last administered on 12/10/16 23:14; Admin Dose 5 MG; Start 12/10/16 at 17:00 Hydralazine HCl (Apresoline) 20 mg Q6H PRN IV SBP > 160 Last administered on 17:12; Admin Dose 20 MG; Start 12/10/16 at 17:00 IV Flush (NS 10 ml) 10 ml PRN PRN IV IV PROTOCOL; Start 12/15/16 at 15:30 IV Flush (NS 10 ml) 10 ml PRN PRN IV IV PROTOCOL; Start 12/16/16 at 18:00 Metoclopramide HCl (Reglan) 10 mg Q12 IV Last administered on 01/10/17 09:20; Admin Dose 10 MG; Start 12/24/16 at 13:00 Mineral Oil 30 ml 30 ml DAILY PO Last administered on 01/10/17 09:21; Admin Dose 30 ML; Start 01/04/17 at 09:00 Dextrose/Sodium Chloride (D5-1/2ns) 1,000 ml @ 50 mls/hr Q20H IV Last administered on 01/10/17 00:32; Admin Dose 50 MLS/HR; Start 01/06/17 at 17:30 Cyclobenzaprine HCl (Flexeril) 10 mg BID PO Last administered on 01/10/17t 09: 21; Admin Dose 10 MG; Start 01/07/17 at 13:00 KO LOVING NP Jan 10, 2017 20:05
[2017-01-11] VITALS (24 sets, daily range): BP systolic 103–157; BP diastolic 57–89; PULSE 58–110; RESP 16–28
[2017-01-11] MEDS: ALBUTEROL 18 GM INHALER INH SCH ×4 (01:22→19:19)
[2017-01-11] MEDS: IPRATROPIUM (HFA) 12.9 GM INHALER INH SCH ×4 (01:22→19:19)
[2017-01-11] MEDS: PANTOPRAZOLE 40 MG INJ IV SCH ×2 (06:37→17:46)
[2017-01-11 07:01] LABS: ADD SCAN DIFF NO
[2017-01-11 07:16] LABS: ABNORMAL IP MESSAGE 1; BASOPHILS % 0.4 % (0.0-2.0); EOSINOPHILS # 0.4 10^3/ul (0.0-0.5); EOSINOPHILS % 6.3 % (0.0-7.0); HEMATOCRIT 26.3 % (42.0-52.0); HEMOGLOBIN 8.7 g/dl (14.0-18.0); LYMPHOCYTES # 2.2 10^3/ul (0.8-2.9); LYMPHOCYTES % 32.4 % (15.0-51.0); MEAN CORPUSCULAR HGB CONC 33.1 g/dl (32.0-37.0); MEAN CORPUSCULAR VOLUME 87.7 fl (82.0-101.0); MEAN PLATELET VOLUME 14.4 fl (7.4-10.4); MONOCYTES % 14.3 % (0.0-11.0); NEUTROPHIL # 3.2 10^3/ul (1.6-7.5); NEUTROPHILS % 46.3 % (39.0-77.0); PLATELET COUNT 192 10^3/UL (140-415); RED CELL DISTRIBUTION WIDTH 16.1 % (11.5-14.5); WHITE BLOOD COUNT 6.9 10^3/ul (4.8-10.8)
[2017-01-11 07:36] LABS: CREATININE 0.81 mg/dl (0.61-1.24); POTASSIUM 3.9 mmol/L (3.5-5.1)
[2017-01-11] MEDS: MINERAL OIL 30ML CUP PO SCH (08:45)
[2017-01-11] MEDS: CYCLOBENZAPRINE 10 MG TAB PO SCH ×2 (08:45→20:47)
[2017-01-11] MEDS: METOCLOPRAMIDE 10 MG INJ IV SCH ×2 (08:45→20:47)
[2017-01-11] MEDS: COLLAGENASE 30 GM TUBE TOP SCH (08:47)
[2017-01-11] MEDS: DEXTROSE 5%-0.45% NACL 1,000 ML IV SCH ×2 (15:36→17:30)
--- NOTE | 2017-01-11 15:40 | PN ---
Date/Time of Note Date/Time of Note DATE: 01/11/17 TIME: 15:38 Assessment/Plan VTE Prophylaxis VTE Prophylaxis Intervention: SCD's Lines/Catheters IV [facility] Type ([facility]): PICC Line Central line still needed: Yes Urinary Cath still in place: Yes Reason Cath still needed: urinary retention Assessment/Plan Chief Complaint/Hosp Course Patient remains hemodynamically stable, status post GoLYTELY yesterday, with good colostomy output today. Discussed with case management no [facility] facility bed is available today. Assessment and plan: - Constipation, resolved. - Partial small bowel obstruction, resolved. Continue G-tube feeding. Dr. Teran is following patient in general surgery consultation. - Hypertension. Continue hydralazine. - S/p upper gastrointestinal bleed. Continue Protonix. Dr. Pryor is following in gastric gastroenterology consultation. - S/p sepsis secondary to healthcare acquired pneumonia. - Healthcare facility-acquired pneumonia. Status post treatment - UTI.S/p treatment. 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 - Ventilator dependent respiratory failure with tracheostomy. Dr. Saenz is following in pulmonology consultation. - Chronic obstructive pulmonary disease. Continue breathing treatment. - Dysphagia, status post G-tube reinsertion by Dr. Pryor. - Chronic Chaudhari catheter. -Colostomy -Bedbound status. Further recommendations based on clinical course. Plan of care discussed with Dr. Meeks. Problems: Exam/Review of Systems Vital Signs Vitals Vital Signs Date Time Temp Pulse Resp B/P Pulse Ox O2 Delivery O2 Flow Rate FiO2 01/11/17 15:07 98.4 66 22 150/85 97 01/11/17 15:05 98 01/10/17 09:15 Mechanical Ventilator Intake and Output 01/10/17 01/10/17 01/11/17 15:00 23:00 07:00 Intake Total 1275 ml 1475 ml Output Total 510 ml 850 ml Balance 765 ml 625 ml Exam Constitutional: frail, non-verbal Neck: other (Tracheostomy), supple Respiratory: diminished breath sounds Cardiovascular: Nl pulse Gastrointestinal: non-tender, other (colostomy), soft, GT. Genitourinary - Male: other (Chaudhari) Musculoskeletal: other (Contracted) Extremities: normal pulses Skin: other (Wounds) Results Result Diagram: 6/13/17 0625 6/13/17 0625 Results 24 hrs Laboratory Tests Test 01/11/17 06:25 White Blood Count 6.9 Red Blood Count 3.00 L Hemoglobin 8.7 L Hematocrit 26.3 L Mean Corpuscular Volume 87.7 Mean Corpuscular Hemoglobin 29.0 Mean Corpuscular Hemoglobin Concent 33.1 Red Cell Distribution Width 16.1 H Platelet Count 192 Mean Platelet Volume 14.4 H Neutrophils % 46.3 Lymphocytes % 32.4 Monocytes % 14.3 H Eosinophils % 6.3 Basophils % 0.4 Nucleated Red Blood Cells % 0.0 Neutrophils # 3.2 Lymphocytes # 2.2 Monocytes # 1.0 H Eosinophils # 0.4 Basophils # 0.0 Nucleated Red Blood Cells # 0.0 Sodium Level 139 Potassium Level 3.9 Chloride Level 104 Carbon Dioxide Level 28 Anion Gap 11 Blood Urea Nitrogen 12 Creatinine 0.81 Glucose Level 90 Calcium Level 9.0 Medications Medications Current Medications Pantoprazole (Protonix Iv) 40 mg BID@18 IV Last administered on 01/11/17 06 :37; Admin Dose 40 MG; Start 12/09/16 at 06:00 Acetaminophen (Tylenol Supp) 650 mg Q4H PRN [place] PAIN OR TEMP ABOVE 38C; Start at 20:30 Morphine Sulfate (morphine) 2 mg Q4H PRN IV PAIN; Start 12/08/16 at 20:30 Collagenase (Santyl) 1 applic DAILY TOP Last administered on 01/11/17 08:47; Admin Dose 1 APPLIC; Start 12/09/16 at 09:00 Collagenase (Santyl) 1 applic PRN PRN TOP SOILED OR DISLODGED DRESSING; Start 12/09/16 at 04:30 Diazepam (Valium) 5 mg Q12H PRN IV ANXIETY Last administered on 12/09/16 23:41 ; Admin Dose 5 MG; Start 12/09/16 at 23:00 Ondansetron HCl (Zofran Inj) 4 mg Q4H PRN IV NAUSEA AND/OR VOMITING Last administered on 12/16/16 09:37; Admin Dose 4 MG; Start 12/10/16 at 17:00 Metoprolol Tartrate (Lopressor) 5 mg Q6H PRN IV SBP >160 or HR > 120 Last administered on 12/10/16 23:14; Admin Dose 5 MG; Start 12/10/16 at 17:00 Hydralazine HCl (Apresoline) 20 mg Q6H PRN IV SBP > 160 Last administered on 17:12; Admin Dose 20 MG; Start 12/10/16 at 17:00 IV Flush (NS 10 ml) 10 ml PRN PRN IV IV PROTOCOL; Start 12/15/16 at 15:30 IV Flush (NS 10 ml) 10 ml PRN PRN IV IV PROTOCOL; Start 12/16/16 at 18:00 Metoclopramide HCl (Reglan) 10 mg Q12 IV Last administered on 01/11/17 08:45; Admin Dose 10 MG; Start 12/24/16 at 13:00 Mineral Oil 30 ml 30 ml DAILY PO Last administered on 01/11/17 08:45; Admin Dose 30 ML; Start 01/04/17 at 09:00 Dextrose/Sodium Chloride (D5-1/2ns) 1,000 ml @ 50 mls/hr Q20H IV Last administered on 01/11/17 15:36; Admin Dose 50 MLS/HR; Start 01/06/17 at 17:30 Cyclobenzaprine HCl (Flexeril) 10 mg BID PO Last administered on 01/11/17 08: 45; Admin Dose 10 MG; Start 01/07/17 at 13:00 Multivitamins/ Minerals (Theragran-M) 1 tab DAILY GTB ; Start 01/12/17 at 09:00 Zinc Sulfate (Zinc Sulfate) 220 mg DAILY GTB ; Start 01/12/17 at 09:00 Ascorbic Acid (Vitamin C) 500 mg BID GTB ; Start 01/11/17 at 21:00 AMY MORAN Jan 11, 2017 15:40
--- NOTE | 2017-01-11 17:08 | PN ---
DATE: 01/11/2017 SUBJECTIVE: No complaint. OBJECTIVE: The patient in supine position with eyes closed. Patient is on the ventilator through tracheostomy. VITAL SIGNS: Temperature 98.4, heart rate 66, respiratory rate 22, blood pressure 150/85, saturatio n 97% on FIO2 of ____ LABORATORY DATA: WBC 6900, hemoglobin 8.7, hematocrit 26.3. BUN, creatinine ___7 and potassium wit hin normal limits. ABDOMEN: Soft. Colostomy. Actually the patient had a bowel movement which was semi-liquid today a bout an hour ago which per nurse is about 600 to 700 mL. (As I had mentioned in progress notes befo re, the patient did not have a bowel movement for 6 days.) Last night, he started 2 liters of GoLYT NICO 200 mL per hour and the effects appeared today in the afternoon when the patient had the bowel m ovement. He says he has been putting out some stool in the colostomy bag. ASSESSMENT AND PLAN: The patient is suspicious for small-bowel obstruction and he was admitted for GI bleeding with or without a small-bowel obstruction by GI with small bowel series. The patient is on G-tube feeding every 6 to 7 days. Patient is having 1 bowel movement with help from GoLYTELY 20 00 mL in 10 hours and then he stopped having bowel movement for 5, 6 or 7 days and again we will rep eat the same procedure. I think this is going to be the process that should be followed in the nurs ing home to prevent severe constipation and/or obstruction of the gastrointestinal system Dictated By: VANIA PINEDA/MACK Conf#: [id number] DID#: [id number]
[2017-01-11] MEDS: ASCORBIC ACID 500 MG TAB GTB SCH (20:47)
[2017-01-12] VITALS (24 sets, daily range): BP systolic 110–160; BP diastolic 61–88; PULSE 58–74; RESP 15–23
[2017-01-12] MEDS: ALBUTEROL 18 GM INHALER INH SCH ×4 (01:21→19:38)
[2017-01-12] MEDS: IPRATROPIUM (HFA) 12.9 GM INHALER INH SCH ×4 (01:22→19:37)
[2017-01-12] MEDS: PANTOPRAZOLE 40 MG INJ IV SCH ×2 (06:21→17:14)
[2017-01-12] MEDS: COLLAGENASE 30 GM TUBE TOP SCH (06:22)
[2017-01-12] MEDS: CYCLOBENZAPRINE 10 MG TAB PO SCH ×2 (08:15→21:32)
[2017-01-12] MEDS: ASCORBIC ACID 500 MG TAB GTB SCH ×2 (08:15→21:33)
[2017-01-12] MEDS: METOCLOPRAMIDE 10 MG INJ IV SCH ×2 (08:15→21:32)
[2017-01-12] MEDS: MINERAL OIL 30ML CUP PO SCH (08:15)
[2017-01-12] MEDS ORDERED: ZINC SULFATE 220 MG CAP GTB SCH (09:00)
[2017-01-12] MEDS ORDERED: MULTIVITAMINS/MINERALS TAB GTB SCH (09:00)
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
--- NOTE | 2017-01-12 11:51 | PN ---
DATE: 01/12/2017 SUBJECTIVE: The patient is not communicative. OBJECTIVE GENERAL: Patient is on the ventilator through tracheostomy eyes are closed. No verbal communicatio n. VITAL SIGNS: Temperature 98.8, heart rate 69, blood pressure 139/88, respirations 23 on the ventila tor, saturation 97% on FIO2 30% on the ventilator. Today, no blood test was done. ABDOMEN: Soft. Colostomy still having some stool in it, semi-liquid, greenish to yellowish. Basic ally as in past 24 hours, patient has had more than 800 mL of stool. This is of course the effect o f GoLYTELY that patient received the day before yesterday. ASSESSMENT: Gastrointestinal function is normal in that the continuity is patent, there is no obstr uction, but it appears that every 6 to 7 days, the patient is to receive 2000 mL of GoLYTELY through G-tube, 200 mL per hour over 10 hours so that makes him have a bowel movement. Usually it has show n that for 6 to 7 days he is not going to have a bowel movement after that, and again, we have to re peat the same sequence. The patient is receiving tube feeding through her gastrostomy tube 50 mL pe r hour. PLAN: Awaiting his placement to a detention. Dictated By: VANIA PINDEA/MACK Conf#: [id number] DID#: [id number]
[2017-01-12] MEDS: DEXTROSE 5%-0.45% NACL 1,000 ML IV SCH ×2 (13:30→15:02)
--- NOTE | 2017-01-13 06:28 | CONS ---
Date/Time of Note Date/Time of Note DATE: 01/11/17 TIME: 12:00 Assessment/Plan Assessment/Plan Chief Complaint/Hosp Course - severe sepsis due to HCAP - HCAP/VAP due to kleb (KPC) and pseudo - UTI due to acineto and pseudo related to chronic indwelling Chaudhari - multiple pressure ulcer - recurrent infection of ulcer of RLE due to MRSA and pseudo. 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 Diphtheroides colonizers - colonization with MDR organisms, including MRSA and KPC - recurrent UGIB - s/p severe sepsis due to HCAP - HCAP/VAP due to kleb (KPC) and pseudo - UTI due to acineto and pseudo related to chronic indwelling Chaudhari - multiple pressure ulcer - recurrent infection of ulcer of RLE due to MRSA and pseudo. 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 the wound culture grew carbapenemase producing kleb, enterococci and pseudo - Dysphagia s/p EGD and new G tube placement 09/15/2016 - h/o infection of wound of RLE due to pseudomonas. 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/11/2016 - possible recurrent SBO per CT on 12/10/2016 - ileus - recurrent leukocytosis likely reactive from multiple emesis on 12/10/2016 & (remains afebrile) - MRSA nasal colonization - treated with Mupirocin 12/12/2016-12/22/2016 - Note: S/p tobramycin (12/12/2016-12/18/2016) for pseudomonas and acinetobacter, Cefepime (12/12/2016-12/21/2016) for KPC in sputum, and Linezolid (12/12/2016-2016) for MRSA recommendations: - wound care - repeat casanova cultures if temp >100.4F - continue to monitor Pt off abx - contact isolation for MRSA - droplet precautions for KPC in his respiratory tract Problems: Consultation Date/Type/Reason Admit Date/Time December 08, 2016 at 12:01 Type of Consultation: INFECTIOUS DISEASE Referring Provider: MARLA AKBAR MD 24 HR Interval Summary Free Text/Dictation This is a late entry for 01.11.17 Exam/Review of Systems Vital Signs Vitals Vital Signs Date Time Temp Pulse Resp B/P Pulse Ox O2 Delivery O2 Flow Rate FiO2 01/12/17 21:22 64 16 100 30 01/12/17 19:46 98.2 160/70 01/10/17 09:15 Mechanical Ventilator Intake and Output 01/12/17 01/12/17 01/13/17 15:00 23:00 07:00 Intake Total 250 ml 1000 ml Output Total 1400 ml Balance 250 ml -400 ml Exam Constitutional: non-verbal Head: normocephalic Respiratory: clear to auscultation Cardiovascular: regular rate and rhythm Gastrointestinal: soft Results Result Diagram: 01/11/17 0625 01/11/17 0625 MARIBELL SUN MD Jan 13, 2017 06:28
--- NOTE | 2017-01-15 14:02 | DS ---
DATE OF ADMISSION: 12/08/2016 DATE OF DISCHARGE: 01/12/2017 FINAL DIAGNOSES: 1. Constipation. Resolved. 2. Partial small-bowel obstruction secondary to constipation. Resolved. 3. Hypertension. 4. Status post gastrointestinal bleed. 5. Status post sepsis secondary to health care-acquired pneumonia. 6. Health care facility-acquired pneumonia, status post treatment. 7. Urinary tract infection. Status post treatment. 8. Chronic encephalopathy with a history of subdural hematoma. 9. Ventilatory-dependent respiratory failure with tracheostomy. 10. Chronic obstructive pulmonary disease. 11. Dysphagia. Status post G-tube removal and re-insertion. 12. Chronic Chaudhari catheter. 13. Colostomy. 14. Bedbound status. HOSPITAL COURSE: The patient is a 71-year-old male with traumatic brain injury, subdural hematoma, c hronic encephalopathy, chronic respiratory failure, COPD and nonverbal at baseline. The patie nt was brought from [facility] due to hematemesis. The patient also had had fev er, tachycardia and elevated lactate. The patient was diagnosed with sepsis, healthcare-acquired pn eumonia and a urinary tract infection, and was treated with antibiotics. The patient's sputum cultu re was positive for Pseudomonas and Klebsiella pneumoniae. The patient's urine culture was positive for acinetobacter and MRSA. The patient was treated with tobramycin for pseudomonas acinetobacter a nd cefepime for KPC in sputum and linezolid for MRSA. Patient was also evaluated by Dr. Pryor in g astroenterology consultation and was diagnosed with a small-bowel obstruction and the G-tube was rem melia and the patient was started on TPN. The patient was also evaluated by Dr. Teran and Dr. Gay in general surgery consultation. The patient had multiple KUBs and when the bowel obstruction reso lved the patient was started on NG tube feeding and was able to tolerate it well; however, did not h ave a bowel movement through the colostomy. The patient was given GoLYTELY, with good response, and the patient had a G-tube reinserted by Dr. Pryor and was started to be fed via G-tube and also annemarie erated it well; however, the patient had constipation and GoLYTELY had to be repeated. The patient's condition overall improved and was stable and the patient was discharged to [facility]. CONDITION ON DISCHARGE: Hemodynamically stable. ACTIVITY: As patient tolerates. DIET: Continue current G-tube feeding. DISCHARGE MEDICATIONS: 1. Zinc sulfate. 2. Multivitamins. 3. GoLYTELY every week for no bowel movement for 7 days. 4. Mineral oil p.o. daily. 5. Reglan and Zofran p.r.n. for nausea. 6. Valium p.r.n. for anxiety. 7. Protonix. 8. Santyl ointment. 9. DuoNeb. 10. Tylenol p.r.n. for fever and pain. Interdisciplinary plan of care was established for this patient. Plan of care was discussed with Dr Emanuel Akbar. Dictated By: AMY MORAN SPOTTER DRIVER for MARLA AKBAR MD SR/NTS Conf#: [id number] DID#: [id number]
== END 2017-01-12 22:07 | DRG 870 ==
LOC: E/R 09:57 → TEL 12:01
PROVIDERS: ADMIT Internal Medicine; ATTEND Internal Medicine
PROC: 5A1955Z Respiratory Ventilation, Greater than 96 Consecutive Hours (ICD-10-PCS; principal; 2016-12-08)
PROC: 02HV33Z Insertion of Infusion Device into Superior Vena Cava, Percutaneous Approach (ICD-10-PCS; 2016-12-15)
PROC: B548ZZA Ultrasonography of Superior Vena Cava, Guidance (ICD-10-PCS; 2016-12-15)
PROC: 0DH63UZ Insertion of Feeding Device into Stomach, Percutaneous Approach (ICD-10-PCS; 2017-01-06)
DX: A41.9 Sepsis, unspecified organism (principal); J18.9 Pneumonia, unspecified organism; G93.49 Other encephalopathy; Z99.11 Dependence on respirator [ventilator] status; J96.10 Chronic respiratory failure, unspecified whether with hypoxia or hypercapnia; J95.851 Ventilator associated pneumonia; E44.0 Moderate protein-calorie malnutrition; L89.893 Pressure ulcer of other site, stage 3; K92.2 Gastrointestinal hemorrhage, unspecified; I47.1 Supraventricular tachycardia; L03.115 Cellulitis of right lower limb; N39.0 Urinary tract infection, site not specified; K56.0 Paralytic ileus; Z68.1 Body mass index [BMI] 19.9 or less, adult; Z93.0 Tracheostomy status; J44.9 Chronic obstructive pulmonary disease, unspecified; I48.2 Chronic atrial fibrillation; R13.10 Dysphagia, unspecified; Z93.1 Gastrostomy status; E83.42 Hypomagnesemia; Z90.3 Acquired absence of stomach [part of]; E87.6 Hypokalemia; I10 Essential (primary) hypertension; D50.9 Iron deficiency anemia, unspecified; B18.2 Chronic viral hepatitis C; Y95 Nosocomial condition; K59.09 Other constipation; B96.5 Pseudomonas (aeruginosa) (mallei) (pseudomallei) as the cause of diseases classified elsewhere; B96.1 Klebsiella pneumoniae [K. pneumoniae] as the cause of diseases classified elsewhere; B95.62 Methicillin resistant Staphylococcus aureus infection as the cause of diseases classified elsewhere; E83.39 Other disorders of phosphorus metabolism; Y84.8 Other medical procedures as the cause of abnormal reaction of the patient, or of later complication, without mention of misadventure at the time of the procedure; Y83.3 Surgical operation with formation of external stoma as the cause of abnormal reaction of the patient, or of later complication, without mention of misadventure at the time of the procedure; Y92.122 Bedroom in nursing home as the place of occurrence of the external cause; Z93.3 Colostomy status; Z90.81 Acquired absence of spleen; Z74.01 Bed confinement status; Z87.891 Personal history of nicotine dependence
CPT/HCPCS: 36415; 36569; 71010; 74000; 74176; 74250; 76937; 80048; 80053; 80200; 80202; 81001; 81003; 82962; 83605; 83735; 84100; 84484; 85025; 85610; 85730; 87040; 87070; 87081; 87086; 93005; 94002; 94003; 94640; 94664; 96374; 96375; C1769; C9113; J0360; J0690; J0692; J0744; J1956; J2185; J2270; J2405; J2765; J3260; J3360; J3370; J3475; J3480; J7030; J7040; J7042; J7050

== ENCOUNTER 2017-03-20 20:26 | Inpatient (IN) | payer MEDICARE, BC ==
[~2017-03-20] VITALS: Ht 185.4 cm; Wt 64.0 kg
[~2017-03-20 20:26] MED LIST changes: +ACET-2047 GTB; -ACET325T33 GTB; +ALBU2.5V3 NEB; +AMIO100T4 GTB; -AMLO-218 PO; +CHLO473M4 MM; +CRAN3875 GTB; -DIPH25TA68 GTB; +DOCU-144 GTB; -ENOX40DI14 SC; -FAMO-18 PO; -METO-429 PO; +METO-448 GTB; +PANT40TA3 GTB; +TRAM-40 GTB; -TYL500 GTB
[2017-03-20 20:30] VITALS: Ht 185.4 cm; Wt 64.0 kg
[2017-03-20] MEDS ORDERED: morphine 4 MG/ML VIAL IV STA (20:58)
[2017-03-20] MEDS ORDERED: ONDANSETRON 4 MG INJ IV STA (20:58)
[2017-03-20] MEDS ORDERED: SOD CHLORIDE 0.9% 1,000 ML IV STA (20:58)
[2017-03-20 22:02] LABS: ADD UMIC YES; UR ASCORBIC ACID 40 mg/dL (NEGATIVE); UR BACTERIA FEW /HPF (NONE SEEN); UR BILIRUBIN (Dip) NEGATIVE (NEGATIVE); UR BLOOD (Dip) 3+ mg/dL (NEGATIVE); UR BUDDING YEAST FEW /HPF (NONE SEEN); UR CLARITY SLIGHTLY CLOUDY (CLEAR); UR COLOR YELLOW (YELLOW); UR GLUCOSE (Dip) NEGATIVE (NEGATIVE); UR KETONES (Dip) NEGATIVE (NEGATIVE); UR LEUKOCYTE ESTERASE (Dip) 3+ Leu/ul (NEGATIVE); UR MUCUS FEW /HPF (NONE SEEN); UR NITRITE (Dip) NEGATIVE (NEGATIVE); UR RBC 67 /HPF (0-5); UR SPECIFIC GRAVITY (Dip) 1.017 (1.003-1.030); UR TOTAL PROTEIN (Dip) 1+ mg/dl (NEGATIVE); UR UROBILINOGEN (Dip) NEGATIVE (NEGATIVE)
[2017-03-20 22:24] LABS: ABNORMAL IP MESSAGE 1; HEMATOCRIT 35.9 % (42.0-52.0); MEAN CORPUSCULAR HEMOGLOBIN 29.3 pg (29.0-33.0); MEAN CORPUSCULAR HGB CONC 33.4 g/dl (32.0-37.0); MEAN CORPUSCULAR VOLUME 87.6 fl (82.0-101.0); MEAN PLATELET VOLUME 14.3 fl (7.4-10.4); PLATELET COUNT 232 10^3/UL (140-415); POSITIVE DIFF @See below; RED CELL DISTRIBUTION WIDTH 16.3 % (11.5-14.5); WHITE BLOOD COUNT 8.7 10^3/ul (4.8-10.8)
[2017-03-20] MEDS ORDERED: SODIUM CHLORIDE 0.9% 1L BAG IV* STA (22:36)
[2017-03-20 23:00] LABS: ALBUMIN 3.7 g/dl (3.3-4.9); ALBUMIN/GLOBULIN RATIO 0.88; BILIRUBIN,INDIRECT 0.2 mg/dl (0-1.1); BILIRUBIN,TOTAL 0.2 mg/dl (0.2-1.3); CREATININE 0.85 mg/dl (0.61-1.24); POTASSIUM 5.2 mmol/L (3.5-5.1); TOTAL PROTEIN 7.9 g/dl (6.1-8.1)
[2017-03-20] MEDS ORDERED: PIPER-TAZO 3.375 GM IV (PMX) 100 ML IVPB ONE (23:00)
[2017-03-20] MEDS ORDERED: NACL 0.9% 3 ML SYG IV SCH (23:30)
[2017-03-20] MEDS ORDERED: ONDANSETRON 4 MG INJ IV PRN (23:30)
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
[2017-03-21] MEDS ORDERED: ACETAMINOPHEN 325 MG TAB PO PRN
[2017-03-21] MEDS ORDERED: ONDANSETRON 4 MG INJ IV PRN
[2017-03-21] MEDS ORDERED: PIPER-TAZO 3.375 GM IV (PMX) 100 ML IVPB SCH
[2017-03-21] MEDS ORDERED: NA POLYST SULFON 15 GM/60 ML BTL GTB ONE
[2017-03-21 00:32] LABS: ANISOCYTOSIS 1+ (0-0); BASOPHILS % (M) 1 % (0-2); EOSINOPHILS % (M) 2 % (0-7); GIANT THROMBO% (M) 1 % (0-0); MONOCYTES % (M) 6 % (0-11); PLATELET ESTIMATE NORMAL; POLYCHROMASIA 3+ (0-0)
[2017-03-21] MEDS: SOD CHLORIDE 0.9% 1,000 ML IV SCH ×2 (00:54→13:04)
--- NOTE | 2017-03-21 01:33 | RADRPT ---
PROCEDURE: XR Chest. CLINICAL INDICATION: Ventilated patient with sepsis. TECHNIQUE: Single frontal view of the chest. COMPARISON: 03/02/2017. FINDINGS: Cardiomegaly again seen with tortuous thoracic aorta. Endotracheal intubation again seen at the mid line. There is new patchy right lung air space disease throughout the right lung, with a right pleu ral effusion. New patchy air space disease at the left lung base. The osseous structures and soft t issues are unremarkable. IMPRESSION: 1. New patchy pneumonias throughout the right lung with new right pleural effusion. 2. New pneumonia at the left lung base. RPTAT: UU. Physician Deandra Date Time Electronically viewed and signed by Physician Deandra on 03/21/2017 01:33 RS/
[2017-03-21] MEDS: ACETAMINOPHEN 325 MG TAB PO PRN (03:14)
[2017-03-21 06:06] LABS: ABNORMAL IP MESSAGE 1; BASOPHIL # 0.1 10^3/ul (0.0-0.1); BASOPHILS % 0.5 % (0.0-2.0); EOSINOPHILS # 0.2 10^3/ul (0.0-0.5); EOSINOPHILS % 2.5 % (0.0-7.0); HEMATOCRIT 29.3 % (42.0-52.0); HEMOGLOBIN 9.5 g/dl (14.0-18.0); LYMPHOCYTES # 1.7 10^3/ul (0.8-2.9); LYMPHOCYTES % 16.9 % (15.0-51.0); MEAN CORPUSCULAR HEMOGLOBIN 28.7 pg (29.0-33.0); MEAN CORPUSCULAR HGB CONC 32.4 g/dl (32.0-37.0); MEAN CORPUSCULAR VOLUME 88.5 fl (82.0-101.0); MEAN PLATELET VOLUME 13.7 fl (7.4-10.4); NEUTROPHILS % 69.7 % (39.0-77.0); PLATELET COUNT 215 10^3/UL (140-415); POSITIVE DIFF @See below; RED BLOOD COUNT 3.31 10^6/ul (4.70-6.10); RED CELL DISTRIBUTION WIDTH 16.5 % (11.5-14.5); WHITE BLOOD COUNT 9.8 10^3/ul (4.8-10.8)
[2017-03-21] MEDS: PIPER-TAZO 3.375 GM IV (PMX) 100 ML IVPB SCH ×3 (06:26→18:08)
[2017-03-21 06:45] LABS: ALBUMIN 3.1 g/dl (3.3-4.9); ALBUMIN/GLOBULIN RATIO 0.79; BILIRUBIN,INDIRECT 0.2 mg/dl (0-1.1); BILIRUBIN,TOTAL 0.2 mg/dl (0.2-1.3); CALCIUM 9.1 mg/dl (8.4-10.2); CREATININE 0.82 mg/dl (0.61-1.24); POTASSIUM 4.3 mmol/L (3.5-5.1)
[2017-03-21] MEDS: FAMOTIDINE 20 MG INJ IV SCH ×2 (08:30→21:04)
[2017-03-21] MEDS: ENOXAPARIN 30 MG/0.3 ML SYG SC SCH (08:30)
[2017-03-21 09:23] LABS: HYPOCHROMASIA 1+ (0-0); POLYCHROMASIA 1+ (0-0)
[2017-03-21] MEDS ORDERED: ACETAMINOPHEN 650 MG SUPP PR ONE (10:30)
[2017-03-21 10:34] LABS: AADO2 Arterial 157.6 mmHg (7.0-24.0); Allen Test ACCEPTAB; Arterial COHb 0.3 % (0.0-3.0); Arterial Fraction of Oxyhgb 95.7 % (93.0-99.0); Arterial HCO3 29.1 mmol/L (22.0-26.0); Arterial MetHb 0.3 % (0.0-1.5); Arterial Total Hemglobin 10.7 g/dl (12.0-18.0); MODE VENT - AC
[2017-03-21] MEDS ORDERED: VANCOMYCIN IV PER PHARMACY XX SCH (13:00)
--- NOTE | 2017-03-21 13:03 | CONS ---
Date/Time of Note Date/Time of Note DATE: 03/21/17 TIME: 12:59 Assessment/Plan Assessment/Plan Additional Assessment/Plan Chest x-ray was reviewed which is showing bilateral patchy ill without infiltrates. Ventilator setting; AC of 20, tidal volume 500, PEEP of 5, 40% FiO2. Assessment and recommendations; 1. Patient admitted for bilateral pneumonia likely aspiration currently on Zosyn. 2. Chronic respiratory failure with advanced multi-infarct dementia. Continue current treatment. Add vancomycin. Obtain follow-up chest x-ray in 48 hours. Consultation Date/Type/Reason Admit Date/Time Date of Consultation: Mar 21, 2017 Type of Consultation: Pulmonary/critical care Reason for Consultation Pulmonary consultation requested for evaluation of chronic respiratory failure. Patient transferred [facility] with episode of vomiting. History of presenting any; patient is a 71-year-old male who is has chronic respiratory failure who resides in a [facility] sent over to ER for episode of vomiting. Upon evaluation a chest x-ray was done which is showing bilateral pneumonia likely indicative of aspiration pneumonia. The patient has advanced dementia and is unable to give any history by himself whatsoever history was obtained from medical records. Past medical history; 1. Chronic respiratory failure, patient remains chronically ventilator dependent. 2. Status post tracheostomy and G-tube placement. 3. Prior history of severe sepsis. 4. History of subdural hematomas. Medications; reviewed. Allergies; none. Social history; no show any smoking. Family history, occupational history is not available. Review of systems; unable to be obtained. General exam; elderly male, on ventilator via tracheostomy, unresponsive. Currently in no distress. Social History Smoking Status: Unknown if ever smoked Exam/Review of Systems Vital Signs Vitals Vital Signs Date Time Temp Pulse Resp B/P Pulse Ox O2 Delivery O2 Flow Rate FiO2 03/21/17 11:45 95 21 100 40 03/21/17 11:00 100.4 114/79 Mechanical Ventilator 03/21/17 08:13 10.0 Exam HEENT exam; supple neck, no JVD. No lymphadenopathy. Midline trachea. No thyromegaly. Tracheostomy in place. Insertion site is clean. Patient is edentulous. Pupils are small bilaterally. Chest exam; diminished breath sounds bilaterally. No added sound. S1-S2 audible, no murmurs. Regular rhythm. Abdomen exam; soft, G-tube in place. Normal distended. Bowel sounds audible. No organomegaly. Next Extremity exam; no peripheral edema. Patient has severe contractures involving all 4 extremities. COMM[employer] DEV[employer]OP[employer] WORK[employer] exam; patient remains unresponsive. Results Result Diagram: 03/21/17 0552 03/21/17 0552 Results 24 hrs Laboratory Tests Test 03/20/17 21:24 03/20/17 21:42 03/21/17 00:27 03/21/17 05:52 Urine Color YELLOW Urine Clarity SLIGHTLY CLOUDY A Urine pH 5.0 Urine Specific [place] 1.017 Urine Ketones NEGATIVE Urine Nitrite NEGATIVE Urine Bilirubin NEGATIVE Urine Urobilinogen NEGATIVE Urine Leukocyte Esterase 3+ H Urine Microscopic RBC 67 H Urine Microscopic WBC 74 H Urine Bacteria FEW A Urine Mucus FEW A Urine Yeast (Budding) FEW A Urine Hemoglobin 3+ H Urine Glucose NEGATIVE Urine Total Protein 1+ H White Blood Count 8.7 9.8 Red Blood Count 4.10 L 3.31 L Hemoglobin 12.0 L 9.5 #L Hematocrit 35.9 L 29.3 L Mean Corpuscular Volume 87.6 88.5 Mean Corpuscular Hemoglobin 29.3 28.7 L Mean Corpuscular Hemoglobin Concent 33.4 32.4 Red Cell Distribution Width 16.3 H 16.5 H Platelet Count 232 # 215 Mean Platelet Volume 14.3 H 13.7 H Neutrophils % 69.7 Segmented Neutrophils % (Manual) 78 H Lymphocytes % 16.9 Lymphocytes % (Manual) 13 L Monocytes % 10.0 Monocytes % (Manual) 6 Eosinophils % 2.5 Eosinophils % (Manual) 2 Basophils % 0.5 Basophils % (Manual) 1 Nucleated Red Blood Cells % 0.0 0.0 Neutrophils # (Manual) 7 Absolute Lymphocytes (Manual) 1.1 Lymphocytes # 1.7 Monocytes # 1.0 H Absolute Monocytes (Manual) 0.5 Eosinophils # 0.2 Basophils # 0.1 Basophils # (Manual) 0.0 Nucleated Red Blood Cells # 0.0 Thrombocytosis 1 H Platelet Estimate NORMAL Polychromasia 3+ 1+ Anisocytosis 1+ Macrocytosis 1+ Sodium Level 136 136 Potassium Level 5.2 H 4.3 Chloride Level 86 L 99 # Carbon Dioxide Level 32 H 29 Anion Gap 23 H 12 # Blood Urea Nitrogen 50 H 37 #H Creatinine 0.85 0.82 Glucose Level 128 126 Lactic Acid Level 2.0 1.7 1.6 Calcium Level 10.0 9.1 Total Bilirubin 0.2 0.2 Direct Bilirubin 0.00 0.00 Indirect Bilirubin 0.2 0.2 Aspartate Amino Transf (AST/SGOT) 182 H 139 H Alanine Aminotransferase (ALT/SGPT) 186 H 149 H Alkaline Phosphatase 86 76 Total Protein 7.9 7.0 Albumin 3.7 3.1 L Globulin 4.20 H 3.90 H Albumin/Globulin Ratio 0.88 0.79 Lipase 16 L Troponin I < 0.012 Hypochromasia 1+ Test 03/21/17 09:40 Blood Gas Specimen Source Blood arterial Arterial Blood Date Drawn 03/21/2017 10:24:18 AM Arterial Blood pH (Temp corrected) 7.469 H Arterial Blood pCO2 (Temp correct) 41.0 Arterial Blood pO2 (Temp corrected) 80.5 Arterial Blood HCO3 29.1 H Arterial Blood Base Excess 5.0 H Arterial Blood Oxygen Saturation 96.3 Mane Test ACCEPTAB Arterial Blood Gas Puncture Site Right Radial Arterial Blood Carboxyhemoglobin 0.3 Arterial Blood Methemoglobin 0.3 Blood Gas A-a O2 Differential 157.6 H Oxyhemoglobin Percent 95.7 Total Hemoglobin 10.7 L Blood Gas Temperature 37.0 Blood Gas Respiration Rate 20.0 Blood Gas Actual Respiration Rate 20 Blood Gas Modality VENT - AC FiO2 40.0 Blood Gas Tidal Volume 500.0 Blood Gas Low PEEP Setting 5.0 Blood Gas Notified Whom M.D. Blood Gas Notified Time 03/21/2017 10:34:04 AM Medications Medications Current Medications Sodium Chloride (NS) 1,000 ml @ 100 mls/hr Q10H IV Last administered on 00:54; Admin Dose 100 MLS/HR; Start 03/20/17 at 23:29 Ondansetron HCl (Zofran Inj) 4 mg Q6H PRN IV NAUSEA AND/OR VOMITING; Start at 23:30 Acetaminophen (Tylenol Tab) 650 mg Q6H PRN PO PAIN LEVEL 1-3 OR FEVER Last administered on 03/21/17 03:14; Admin Dose 650 MG; Start 03/20/17 at 23:30 Morphine Sulfate (morphine) 2 mg Q4H PRN IV PAIN LEVEL 7-10; Start 03/20/17 at 23:30 Famotidine (Pepcid Iv) 20 mg Q12 IV Last administered on 03/21/17 08:30; Admin Dose 20 MG; Start 03/21/17 at 09:00 Enoxaparin Sodium 30 mg 30 mg DAILY SC Last administered on 03/21/17 08:30; Admin Dose 30 MG; Start 03/21/17 at 09:00 Piperacillin Sod/ Tazobactam Sod 100 ml @ 200 mls/hr Q6 IVPB Last administered on 03/21/17 06:26; Admin Dose 200 MLS/HR; Start 03/21/17 at 06:00 Potassium Chloride/Dextrose/ Sod Cl (D5-1/2ns + KCl 20 Meq) 1,000 ml @ 70 mls/ hr [id number] IV ; Start 03/21/17 at 13:00; Status SHAAN TRAN Mar 21, 2017 13:02
[2017-03-21] MEDS ORDERED: VANCOMYCIN 1.5 GM in SOD CHLORIDE 0.9% 250 ML IVPB SCH (14:00)
--- NOTE | 2017-03-21 14:24 | HP ---
DATE OF ADMISSION: 03/20/2017 CHIEF COMPLAINT: Nausea and vomiting. HISTORY OF PRESENT ILLNESS: The patient is a 71-year-old gentleman with traumatic brain injury, subdural hematoma with chronic encephalopathy and chronic ventilator-dependent respiratory failure with tracheostomy. Also, dysphagia with G- tube, and COPD. The patient is nonverbal at baseline and most of the history was obtained from medical records and talking to nursing staff. The patient has a history of gastrointestinal bleed, chronic obstructive pulmonary disease, chronic Chaudhari catheter, colostomy. The patient was brought from a shelter facility complaining of nausea and vomiting. On evaluation in the emergency room, patient was noted to have urinary tract infection per UA, dehydration and transaminitis. The patient was diagnosed with sepsis and started on broad- spectrum antibiotics. The patient also had NG tube connected to low intermittent suction. The patient was given IV fluids and Zofran p.r.n. for nausea. The patient was also noted to have tachycardia. The patient underwent chest x-ray, which was reviewed and revealed new patchy pneumonia throughout the right lung with new right pleural effusion and new pneumonia at the left lung base. The patient will be admitted for further evaluation and management. The patient also had a low-grade fever on admission. PAST MEDICAL HISTORY: Per HPI. PAST SURGICAL HISTORY: Status post tracheostomy, status post colostomy, status post G-tube placement. SOCIAL HISTORY: Patient is an ex-smoker. Currently is a resident of shelter facility. ALLERGIES: NO KNOWN DRUG ALLERGIES. MEDICATIONS: On admission includes: 1. Tylenol. 2. Albuterol. Amiodarone. 3. Vitamin C. 4. Peridex. 5. Colace. 6. Metoprolol. 7. Protonix. 8. Tramadol. 9. Cranberry extract. 10. Ferrous sulfate. REVIEW OF SYSTEMS: Is negative unless what is mentioned in HPI. PHYSICAL EXAMINATION: GENERAL: Frail, debilitated-appearing white male, currently postop, tachycardia on ventilatory support via tracheostomy. HEENT: Head is atraumatic. Oral mucosa is pink and moist. NECK: Supple. There is a tracheostomy at the base of the neck with no bleeding. LUNGS: Decreased breath sounds bilaterally. CARDIOVASCULAR: The patient is tachycardic. Normal S1, S2. No murmurs, gallops, clicks noted. ABDOMEN: Round, soft. Normal bowel sounds. G-tube in place. NEUROLOGICAL: Patient has chronic encephalopathy and opens eyes but does not responsive to any commands. LABORATORY DATA: On admission: CBC white blood cells 8.7, hemoglobin 12.0, hematocrit 35.9, platelets 232. Chemistry: Sodium is 136, potassium 5.2, chloride 86, carbon dioxide 32, anion gap 23, BUN is 60, creatinine 0.85, glucose 128, AST is 182, ALT is 186, lipase is 16. ASSESSMENT AND PLAN: 1. Sepsis secondary to urinary tract infection. Possible pneumonia. Continue broad-spectrum antibiotics. Dr. Almazan, was asked to see patient in Infectious Disease consultation. We will obtain urine, blood and sputum cultures. 2. Hyperkalemia secondary to dehydration. 3. Continue to monitor electrolytes. 4. Nausea and vomiting. I will ask Dr. Pryor to see patient in gastroenterology consultation. 5. Ventilator-dependent respiratory failure. Continue bronchodilators and ventilatory support. 6. Subdural hematoma with chronic encephalopathy. 7. Chronic obstructive pulmonary disease. 8. Dysphagia with G-tube. Continue Lovenox for deep venous thrombosis prophylaxis and Pepcid for peptic ulcer disease 9. prophylaxis. Further recommendations based on clinical course. Plan of care discussed with Dr. Meeks. 10. Will continue IV fluids. Dictated By: Irish Danielson NP /kilo/curtis /Document#: [id number]
[2017-03-21] MEDS ORDERED: ASPI81TA3 PO (14:45)
[2017-03-21] MEDS ORDERED: CARV12.579 PO (14:45)
[2017-03-21] MEDS ORDERED: CYCL-319 PO (14:46)
[2017-03-21] MEDS ORDERED: LANS30CA PO (14:47)
[2017-03-21] MEDS ORDERED: LOSA50TA6 PO (14:47)
[2017-03-21] MEDS ORDERED: HYDR-3671 PO (14:47)
[2017-03-21] MEDS ORDERED: MAGN400T28 PO (14:48)
[2017-03-21] MEDS ORDERED: METO10TA96 PO (14:48)
[2017-03-21] MEDS: D5W-0.45 NACL + KCL 20 MEQ 1,000 ML IV SCH (14:50)
--- NOTE | 2017-03-21 15:31 | CONS ---
Date/Time of Note Date/Time of Note DATE: 03/21/17 TIME: 15:30 Consultation Date/Type/Reason Admit Date/Time Date of Consultation: Mar 21, 2017 Type of Consultation: ID Reason for Consultation Antibiotic management Social History Smoking Status: Unknown if ever smoked Exam/Review of Systems Vital Signs Vitals Vital Signs Date Time Temp Pulse Resp B/P Pulse Ox O2 Delivery O2 Flow Rate FiO2 03/21/17 15:04 92 20 99 40 03/21/17 14:30 105/58 Mechanical Ventilator 03/21/17 13:00 99.8 03/21/17 08:13 10.0 Results Result Diagram: 03/21/17 0552 03/21/17 0552 Results 24 hrs Laboratory Tests Test 03/20/17 21:24 03/20/17 21:42 03/21/17 00:27 03/21/17 05:52 Urine Color YELLOW Urine Clarity SLIGHTLY CLOUDY A Urine pH 5.0 Urine Specific [place] 1.017 Urine Ketones NEGATIVE Urine Nitrite NEGATIVE Urine Bilirubin NEGATIVE Urine Urobilinogen NEGATIVE Urine Leukocyte Esterase 3+ H Urine Microscopic RBC 67 H Urine Microscopic WBC 74 H Urine Bacteria FEW A Urine Mucus FEW A Urine Yeast (Budding) FEW A Urine Hemoglobin 3+ H Urine Glucose NEGATIVE Urine Total Protein 1+ H White Blood Count 8.7 9.8 Red Blood Count 4.10 L 3.31 L Hemoglobin 12.0 L 9.5 #L Hematocrit 35.9 L 29.3 L Mean Corpuscular Volume 87.6 88.5 Mean Corpuscular Hemoglobin 29.3 28.7 L Mean Corpuscular Hemoglobin Concent 33.4 32.4 Red Cell Distribution Width 16.3 H 16.5 H Platelet Count 232 # 215 Mean Platelet Volume 14.3 H 13.7 H Neutrophils % 69.7 Segmented Neutrophils % (Manual) 78 H Lymphocytes % 16.9 Lymphocytes % (Manual) 13 L Monocytes % 10.0 Monocytes % (Manual) 6 Eosinophils % 2.5 Eosinophils % (Manual) 2 Basophils % 0.5 Basophils % (Manual) 1 Nucleated Red Blood Cells % 0.0 0.0 Neutrophils # (Manual) 7 Absolute Lymphocytes (Manual) 1.1 Lymphocytes # 1.7 Monocytes # 1.0 H Absolute Monocytes (Manual) 0.5 Eosinophils # 0.2 Basophils # 0.1 Basophils # (Manual) 0.0 Nucleated Red Blood Cells # 0.0 Thrombocytosis 1 H Platelet Estimate NORMAL Polychromasia 3+ 1+ Anisocytosis 1+ Macrocytosis 1+ Sodium Level 136 136 Potassium Level 5.2 H 4.3 Chloride Level 86 L 99 # Carbon Dioxide Level 32 H 29 Anion Gap 23 H 12 # Blood Urea Nitrogen 50 H 37 #H Creatinine 0.85 0.82 Glucose Level 128 126 Lactic Acid Level 2.0 1.7 1.6 Calcium Level 10.0 9.1 Total Bilirubin 0.2 0.2 Direct Bilirubin 0.00 0.00 Indirect Bilirubin 0.2 0.2 Aspartate Amino Transf (AST/SGOT) 182 H 139 H Alanine Aminotransferase (ALT/SGPT) 186 H 149 H Alkaline Phosphatase 86 76 Total Protein 7.9 7.0 Albumin 3.7 3.1 L Globulin 4.20 H 3.90 H Albumin/Globulin Ratio 0.88 0.79 Lipase 16 L Troponin I < 0.012 Hypochromasia 1+ Test 03/21/17 09:40 Blood Gas Specimen Source Blood arterial Arterial Blood Date Drawn 03/21/2017 10:24:18 AM Arterial Blood pH (Temp corrected) 7.469 H Arterial Blood pCO2 (Temp correct) 41.0 Arterial Blood pO2 (Temp corrected) 80.5 Arterial Blood HCO3 29.1 H Arterial Blood Base Excess 5.0 H Arterial Blood Oxygen Saturation 96.3 Mane Test ACCEPTAB Arterial Blood Gas Puncture Site Right Radial Arterial Blood Carboxyhemoglobin 0.3 Arterial Blood Methemoglobin 0.3 Blood Gas A-a O2 Differential 157.6 H Oxyhemoglobin Percent 95.7 Total Hemoglobin 10.7 L Blood Gas Temperature 37.0 Blood Gas Respiration Rate 20.0 Blood Gas Actual Respiration Rate 20 Blood Gas Modality VENT - AC FiO2 40.0 Blood Gas Tidal Volume 500.0 Blood Gas Low PEEP Setting 5.0 Blood Gas Notified Whom M.D. Blood Gas Notified Time 03/21/2017 10:34:04 AM Medications Medications Current Medications Ondansetron HCl (Zofran Inj) 4 mg Q6H PRN IV NAUSEA AND/OR VOMITING; Start at 23:30 Acetaminophen (Tylenol Tab) 650 mg Q6H PRN PO PAIN LEVEL 1-3 OR FEVER Last administered on 03/21/17t 03:14; Admin Dose 650 MG; Start 03/20/17 at 23:30 Morphine Sulfate (morphine) 2 mg Q4H PRN IV PAIN LEVEL 7-10; Start 03/20/17 at 23:30 Famotidine (Pepcid Iv) 20 mg Q12 IV Last administered on 03/21/17 08:30; Admin Dose 20 MG; Start 03/21/17 at 09:00 Enoxaparin Sodium 30 mg 30 mg DAILY SC Last administered on 03/21/17 08:30; Admin Dose 30 MG; Start 03/21/17 at 09:00 Piperacillin Sod/ Tazobactam Sod 100 ml @ 200 mls/hr Q6 IVPB Last administered on 03/21/17 13:04; Admin Dose 200 MLS/HR; Start 03/21/17 at 06:00 Potassium Chloride/Dextrose/ Sod Cl 1,000 ml @ 70 mls/hr [id number] IV Last administered on 03/21/17 14:50; Admin Dose 70 MLS/HR; Start 03/21/17 at 13:00 Vancomycin HCl 1.5 gm/Sodium Chloride 250 ml @ 83.333 mls/ hr NOW IVPB Last administered on 03/21/17 14:50; Admin Dose 83.333 MLS/HR; Start 03/21/17 at 14: 00; Stop 03/21/17 at 20:00 Vancomycin HCl/ Sodium Chloride (Vancocin/NS) 150 ml @ 75 mls/hr Q12H IVPB ; Start 03/22/17 at 05:00 ADITI SHORE MD Mar 21, 2017 15:31
[2017-03-21] MEDS ORDERED: VANCOMYCIN 750 MG in SOD CHLORIDE 0.9% 150 ML IVPB SCH (23:00)
[2017-03-22] VITALS (26 sets, daily range): BP systolic 134–158; BP diastolic 81–97; PULSE 71–85; RESP 20–24; TEMP 98.9
[2017-03-22] MEDS: PIPER-TAZO 3.375 GM IV (PMX) 100 ML IVPB SCH ×4 (00:01→18:18)
--- NOTE | 2017-03-22 03:04 | CONS ---
DATE OF ADMISSION: 03/20/2017 DATE OF CONSULTATION: 03/21/2017 REASON FOR CONSULTATION: Antibiotic management. HISTORY OF PRESENT ILLNESS: Robert Meeks is an 81-year-old male, who comes in with nausea and vomiting. His past problems include: 1. Status post tracheostomy. 2. Status post colostomy. 3. Status post G-tube placement. 4. Traumatic brain injury with subdural hematoma. 5. Chronic encephalopathy. 6. COPD. The patient is nonverbal at baseline and most of the history is taken from medical records and the nursing staff. The patient also has a history of GI bleed, chronic Chaudhari catheter and a colostomy. He was brought in from shelter facility with nausea and vomiting. On evaluation in the emergency room, patient was noted to have evidence of urinary tract infection per UA, dehydration and transaminitis. He was diagnosed with sepsis and started on broad-spectrum antibiotics. The patient also had an NG tube connected to low-intermittent suction. He was given IV fluids and Zofran for nausea. The patient was tachycardic. A chest x-ray revealed new patchy pneumonia throughout the right lung with new right pleural effusion and new pneumonia at the lung base. On admission, his white count was 8.7, H and H of 12 and 35.9, platelet count 232,000. BUN and creatinine 60/0.85, glucose 128. AST 182, ALT is 186. Lipase is 16. PAST MEDICAL HISTORY: Operations as outlined. FAMILY HISTORY: Noncontributory. SOCIAL HISTORY: He is an ex-smoker. He resides in a [facility]. ALLERGIES: NONE TO PENICILLIN, SULFA, OR FOODS. MEDICATION: Per chart. REVIEW OF SYSTEMS: As per HPI. PHYSICAL EXAMINATION: GENERAL APPEARANCE: The patient is a well-developed, chronically ill-appearing male, who is debilitated, in no acute distress. SKIN: Without generalized rash. HEENT: Within normal limits. NECK: Tracheostomy in place without bleeding or discharge. Lymph nodes nonpalpable. CHEST: Decreased breath sounds at the bases. HEART: Without murmur or gallop. ABDOMEN: Soft, nontender, without organosplenomegaly or masses. G-tube in place. RECTAL: Deferred. NEUROLOGICAL: Chronic encephalopathy. No new focal findings. IMPRESSION AND PLAN: The patient was started on vancomycin and Zosyn. White count today is 9.8. Urine is 3+ leukocyte esterase, 74 white cells per high-powered field. He has some budding yeast in the urine. The patient was also seen by Dr. Newell in pulmonary consultation. He noted the x-ray showed patchy bilateral infiltrates and bilateral pneumonia and placed on Zosyn. He has advanced multi-infarct dementia. As noted, the patient has chronic encephalopathy, does not respond to any commands, has a gastrostomy tube, as well as a tracheostomy. We are going to continue him on vancomycin and on Zosyn. I will dictate my findings to Dr. Meeks and to Dr. Newell. Dictated By: Leo Almazan MD JD/kilo/petrona /Document#: [id number]
--- NOTE | 2017-03-22 03:21 | RADRPT ---
PROCEDURE: CT Abdomen and pelvis without contrast. CLINICAL INDICATION: Abdominal pain. TECHNIQUE: CT scan of the abdomen and pelvis was performed on a multi-detector high-resolution CT scanner. Contiguous axial images were obtained from the lung bases to the ischial tuberosities wit hout intravenous contrast. Coronal and sagittal reformatted images were also obtained. Images were reviewed on the PACS workstation. One or more of the following dose reduction techniques were used: - Automated exposure control. - Adjustment of the mA and/or kV according to patient size. - Use of iterative reconstruction technique. Exam CTD/vol = 10.16 mGy. Total exam DLP = 671.31 mGy-cm. COMPARISON: 12/10/2016. FINDINGS: Evaluation of the lung bases demonstrates moderate emphysematous changes. There is mild bibasilar a telectasis and scattered air space opacities, greater on the right. There are bilateral small pleur al effusions. Abdomen: The liver is normal in size. There is no focal mass or dilatation of the biliary tree. T he gallbladder is not distended. The spleen, pancreas and bilateral adrenal glands are within jono l limits. Bilateral kidneys are normal in size with no contour deforming mass identified. There le ft renal calculi with the largest in the mid aspect measuring 5 x 3 mm. There is no radiopaque uret eral calculus identified. There is no hydronephrosis or hydroureter. There is no retroperitoneal a denopathy. The abdominal aorta is of normal caliber with scattered atherosclerotic calcifications. There is a nasogastric tube in place. There are moderately dilated loops of proximal to mid small b owel with air-fluid levels. There is a transition point within the left lower abdomen. Distal loop s of small bowel are collapsed. The patient is status post left abdominal colostomy. There is no f ree air. A normal appendix is identified. There is no diverticulosis or diverticulitis. There is no ascites. Pelvis: The bladder contains a Chaudhari catheter. The prostate and seminal vesicles are within normal limits. There is no significant pelvic adenopathy or free fluid. Evaluation of the osseous structures demonstrates no suspicious lytic or blastic lesion. There are d egenerative changes and mild dextroscoliosis of the lumbar spine. IMPRESSION: Small bowel obstruction with a transition point within the left lower abdomen, unchanged from 2016. Left abdominal colostomy. Moderate emphysematous changes. Mild bibasilar atelectasis and scattered air space opacities, greater on the right, increased compar ed with the prior study. Bilateral small pleural effusions. Left renal calculi. Vascular calcifications reflective of atherosclerosis. Gastrostomy tube. .Sheldon Smith MD, MD Date Time Electronically viewed and signed by .Sheldon Smith MD, on 03/22/2017 03:21 .T/
--- NOTE | 2017-03-22 04:36 | CONS ---
DATE OF ADMISSION: 03/20/2017 DATE OF CONSULTATION: 03/22/[address] Meeks: Thank you for asking me to see Mr. Robert Meeks in GI consultation. HISTORY OF PRESENT ILLNESS: Patient, as you know, has a history of traumatic brain injury. He has a tracheostomy and is ventilator-dependent. GI consultation is requested because of abnormal liver functions. He is unable to communicate. He is in a vegetative status. Has other medical problems including history of subdural hematoma in the past, tracheostomy, history of gastrointestinal bleeding in the past, history of a colostomy, status post PEG placement. The patient had a gastric ulcer in the past. From the GI standpoint, apparently, he has significant regurgitation of gastric contents coming out of the mouth and into the trach. He has greenish drainage. No history of vomiting blood. No abdominal pain, although the patient cannot communicate. MEDICATION: Prior to admission include: 1. Tylenol. 2. Vitamin C. 3. Peridex. 4. Colace. 5. Metoprolol. 6. Protonix. 7. Tramadol. 8. Ferrous sulfate. PHYSICAL EXAMINATION: GENERAL APPEARANCE: The patient is a 71-year-old white gentleman, who at this time, is very lethargic, status post trach, on vent. He has a G-tube in place. VITAL SIGNS: Temperature 99.2, pulse is 87, blood pressure is 116/79. HEART: Normal heart sounds. LUNGS: Normal breath sounds. ABDOMEN: Showed evidence of some exudate around the gastrostomy site. LABORATORY: Potassium 5.2, BUN is 50, creatinine is 0.85. Alk phos is 86, AST 182, AST 186. Lipase 16. IMAGING STUDIES: Show evidence of pneumonia through the right lung. CLINICAL IMPRESSION: 1. From the GI standpoint, patient has regurgitation of the gastric contents, rule out gastric outlet obstruction. 2. Rule out peptic ulcer disease. Rule out gastrostomy site ulcer disease. He has abnormal liver functions. I do not believe he has any choledocholithiasis. Abnormal liver function etiology is not known. Rule out viral etiology. Rule out drug- induced liver disease, doubt choledocholithiasis. 3. Respiratory failure. 4. Subdural hematoma. 5. History of brain injury. PLAN: At this time, recommend CT scan of the abdomen and also recommend culture from the gastrostomy site. Once again, Dr. Meeks, thank you for this consultation. Dictated By: Sunil Pryor MD /kilo/petrona /Document#: [id number] ; Dr. Meeks
[2017-03-22] MEDS: VANCOMYCIN 750 MG in SOD CHLORIDE 0.9% 150 ML IVPB SCH ×2 (05:27→17:32)
[2017-03-22 06:11] LABS: ABNORMAL IP MESSAGE 1; BASOPHILS % 0.5 % (0.0-2.0); EOSINOPHILS # 0.5 10^3/ul (0.0-0.5); EOSINOPHILS % 5.5 % (0.0-7.0); HEMATOCRIT 29.3 % (42.0-52.0); HEMOGLOBIN 9.7 g/dl (14.0-18.0); LYMPHOCYTES # 1.6 10^3/ul (0.8-2.9); LYMPHOCYTES % 19.9 % (15.0-51.0); MEAN CORPUSCULAR HEMOGLOBIN 29.3 pg (29.0-33.0); MEAN CORPUSCULAR HGB CONC 33.1 g/dl (32.0-37.0); MEAN CORPUSCULAR VOLUME 88.5 fl (82.0-101.0); MEAN PLATELET VOLUME 13.3 fl (7.4-10.4); MONOCYTES % 12.4 % (0.0-11.0); NEUTROPHILS % 61.2 % (39.0-77.0); PLATELET COUNT 236 10^3/UL (140-415); POSITIVE DIFF @See below; RED BLOOD COUNT 3.31 10^6/ul (4.70-6.10); RED CELL DISTRIBUTION WIDTH 16.4 % (11.5-14.5); WHITE BLOOD COUNT 8.2 10^3/ul (4.8-10.8)
[2017-03-22 06:32] LABS: CALCIUM 9.6 mg/dl (8.4-10.2); CREATININE 0.92 mg/dl (0.61-1.24); POTASSIUM 3.8 mmol/L (3.5-5.1)
[2017-03-22] MEDS: D5W-0.45 NACL + KCL 20 MEQ 1,000 ML IV SCH ×2 (07:46→17:33)
[2017-03-22] MEDS: ENOXAPARIN 30 MG/0.3 ML SYG SC SCH ×2 (09:00→10:07)
[2017-03-22] MEDS: FAMOTIDINE 20 MG INJ IV SCH ×3 (09:00→20:43)
--- NOTE | 2017-03-22 11:57 | CONS ---
Date/Time of Note Date/Time of Note DATE: 03/22/17 TIME: 11:53 Consult Date/Type/Reason Admit Date/Time Mar 20, 2017 at 23:37 Initial Consult Date 03/21/17 Type of Consultation: Pulmonary Subjective Patient admitted to intensive care unit this morning. No new events. Objective Vital Signs Date Time Temp Pulse Resp B/P Pulse Ox O2 Delivery O2 Flow Rate FiO2 03/22/17 11:00 79 21 134/81 99 Mechanical Ventilator 03/22/17 09:30 30 03/22/17 09:09 98.2 03/22/17 07:34 10.0 Intake and Output 03/21/17 03/21/17 03/22/17 15:00 23:00 07:00 Intake Total 200 ml 1250 ml Balance 200 ml 1250 ml Exam PHYSICAL EXAMINATION GENERAL: Elderly gentleman, tracheostomy on mechanical ventilation somnolent. VITAL SIGNS: see below. HEENT: Pupils equal, round, and reactive to light. Tracheostomy site clean and intact. CARDIAC: S1, S2, 1/6 systolic ejection murmur CHEST: Diminished air entry bilaterally. ABDOMEN: Mildly distended. Bowel sounds present no guarding or rebound EXTREMITIES: No cyanosis, clubbing edema +1 NEUROLOGIC: Generalized weakness Results/Medications Result Diagram: 03/22/17 0540 03/22/17 0540 Results 24 hrs Laboratory Tests Test 03/22/17 05:40 White Blood Count 8.2 Red Blood Count 3.31 L Hemoglobin 9.7 L Hematocrit 29.3 L Mean Corpuscular Volume 88.5 Mean Corpuscular Hemoglobin 29.3 Mean Corpuscular Hemoglobin Concent 33.1 Red Cell Distribution Width 16.4 H Platelet Count 236 Mean Platelet Volume 13.3 H Neutrophils % 61.2 Lymphocytes % 19.9 Monocytes % 12.4 H Eosinophils % 5.5 Basophils % 0.5 Nucleated Red Blood Cells % 0.0 Neutrophils # (Manual) 5 Lymphocytes # 1.6 Monocytes # 1.0 H Eosinophils # 0.5 Basophils # 0.0 Nucleated Red Blood Cells # 0.0 Sodium Level 142 Potassium Level 3.8 Chloride Level 98 Carbon Dioxide Level 30 Anion Gap 18 H Blood Urea Nitrogen 31 H Creatinine 0.92 Glucose Level 126 Calcium Level 9.6 Medications Current Medications Ondansetron HCl (Zofran Inj) 4 mg Q6H PRN IV NAUSEA AND/OR VOMITING; Start at 23:30 Acetaminophen (Tylenol Tab) 650 mg Q6H PRN PO PAIN LEVEL 1-3 OR FEVER Last administered on 03/21/17 03:14; Admin Dose 650 MG; Start 03/20/17 at 23:30 Morphine Sulfate (morphine) 2 mg Q4H PRN IV PAIN LEVEL 7-10; Start 03/20/17 at 23:30 Famotidine (Pepcid Iv) 20 mg Q12 IV Last administered on 03/22/17 10:07; Admin Dose 20 MG; Start 03/21/17 at 09:00 Enoxaparin Sodium 30 mg 30 mg DAILY SC Last administered on 03/22/17 10:07; Admin Dose 30 MG; Start 03/21/17 at 09:00 Piperacillin Sod/ Tazobactam Sod 100 ml @ 200 mls/hr Q6 IVPB Last administered on 03/22/17 07:46; Admin Dose 200 MLS/HR; Start 03/21/17 at 06:00 Potassium Chloride/Dextrose/ Sod Cl 1,000 ml @ 70 mls/hr [id number] IV Last administered on 03/22/17 07:46; Admin Dose 70 MLS/HR; Start 03/21/17 at 13:00 Vancomycin HCl/ Sodium Chloride (Vancocin/NS) 150 ml @ 75 mls/hr Q12H IVPB Last administered on 03/22/17 05:27; Admin Dose 75 MLS/HR; Start 03/22/17 at 05 :00 Miscellaneous Information (*Rx Drug Level Order Reminder*) VANCOMYCIN TROUGH ON 03/23... ONCE ONCE XX ; Start 03/23/17 at 04:00; Stop 03/23/17 at 04:01 Assessment/Plan Chief Complaint/Hosp Course Assessment 1. Vent dependent respiratory failure with healthcare associated pneumonia 2. Chronic encephalopathy 3. Dysphagia G-tube Plan 1. Continue antibiotics 2. Continue wound care 3. Continue tube feeding 4. DVT and GI prophylaxis Problems: YU ELLSWORTH [facility], [facility] Mar 22, 2017 11:57
[2017-03-22] MEDS ORDERED: PENDING SANTYL ORDER FOR WOUND CARE XX PRN (13:00)
[2017-03-22] MEDS ORDERED: FLUCONAZOLE 100 MG/NS (PMX) 50 ML IVPB SCH (15:00)
[2017-03-22] MEDS ORDERED: COLLAGENASE 30 GM TUBE TOP PRN (16:15)
--- NOTE | 2017-03-22 16:39 | PN ---
Date/Time of Note Date/Time of Note DATE: 03/22/17 TIME: 16:22 Assessment/Plan VTE Prophylaxis VTE Prophylaxis Intervention: SCD's Lines/Catheters IV C[facility]ter Type (from [facility] Saline Lock Urinary Cath still in place: Yes Reason Cath still needed: urinary retention Assessment/Plan Chief Complaint/Hosp Course Patient had an episodes of emesis, continue G-tube to low intermittent suction. Problems: Assessment/Plan -Sepsis secondary to urinary tract infection an possible pneumonia. Continue broad-spectrum antibiotics. Dr. Almazan is following an infection disease consultation. -Intractable nausea and vomiting, rule out gastric outlet obstruction. Dr. Cha is following in gastroenterology consultation. -Hyperkalemia secondary to dehydration, resolved. -Ventilator-dependent respiratory failure. Dr. Saenz is following in pulmonology consultation. -Subdural hematoma with chronic encephalopathy. -Chronic obstructive pulmonary disease. -Dysphagia with G-tube. Further recommendations based on clinical course. Plan of care discussed with Dr. Meeks. Exam/Review of Systems Vital Signs Vitals Vital Signs Date Time Temp Pulse Resp B/P Pulse Ox O2 Delivery O2 Flow Rate FiO2 03/22/17 16:00 97.8 73 20 135/97 95 Mechanical Ventilator 03/22/17 11:50 30 03/22/17 07:34 10.0 Intake and Output 03/21/17 03/21/17 03/22/17 15:00 23:00 07:00 Intake Total 200 ml 1250 ml Balance 200 ml 1250 ml Exam Constitutional: frail, non-verbal Head: normocephalic Neck: other (Tracheostomy), supple Respiratory: diminished breath sounds Cardiovascular: nl pulses Gastrointestinal: other (G-tube), soft Extremities: normal pulses Skin: other (Multiple wounds) Results Result Diagram: 03/22/17 0540 03/22/17 0540 Results 24 hrs Laboratory Tests Test 03/22/17 05:40 White Blood Count 8.2 Red Blood Count 3.31 L Hemoglobin 9.7 L Hematocrit 29.3 L Mean Corpuscular Volume 88.5 Mean Corpuscular Hemoglobin 29.3 Mean Corpuscular Hemoglobin Concent 33.1 Red Cell Distribution Width 16.4 H Platelet Count 236 Mean Platelet Volume 13.3 H Neutrophils % 61.2 Lymphocytes % 19.9 Monocytes % 12.4 H Eosinophils % 5.5 Basophils % 0.5 Nucleated Red Blood Cells % 0.0 Neutrophils # (Manual) 5 Lymphocytes # 1.6 Monocytes # 1.0 H Eosinophils # 0.5 Basophils # 0.0 Nucleated Red Blood Cells # 0.0 Sodium Level 142 Potassium Level 3.8 Chloride Level 98 Carbon Dioxide Level 30 Anion Gap 18 H Blood Urea Nitrogen 31 H Creatinine 0.92 Glucose Level 126 Calcium Level 9.6 Medications Medications Current Medications Ondansetron HCl (Zofran Inj) 4 mg Q6H PRN IV NAUSEA AND/OR VOMITING; Start at 23:30 Acetaminophen (Tylenol Tab) 650 mg Q6H PRN PO PAIN LEVEL 1-3 OR FEVER Last administered on 03/21/17 03:14; Admin Dose 650 MG; Start 03/20/17 at 23:30 Morphine Sulfate (morphine) 2 mg Q4H PRN IV PAIN LEVEL 7-10; Start 03/20/17 at 23:30 Famotidine (Pepcid Iv) 20 mg Q12 IV Last administered on 03/22/17 10:07; Admin Dose 20 MG; Start 03/21/17 at 09:00 Enoxaparin Sodium 30 mg 30 mg DAILY SC Last administered on 03/22/17 10:07; Admin Dose 30 MG; Start 03/21/17 at 09:00 Piperacillin Sod/ Tazobactam Sod 100 ml @ 200 mls/hr Q6 IVPB Last administered on 03/22/17 11:53; Admin Dose 200 MLS/HR; Start 03/21/17 at 06:00 Potassium Chloride/Dextrose/ Sod Cl 1,000 ml @ 70 mls/hr [id number] IV Last administered on 03/22/17 07:46; Admin Dose 70 MLS/HR; Start 03/21/17 at 13:00 Vancomycin HCl/ Sodium Chloride (Vancocin/NS) 150 ml @ 75 mls/hr Q12H IVPB Last administered on 03/22/17 05:27; Admin Dose 75 MLS/HR; Start 03/22/17 at 05 :00 Miscellaneous Information VANCOMYCIN TROUGH ON 03/23... ONCE ONCE XX ; Start at 04:00; Stop 03/23/17 at 04:01 Fluconazole/ Sodium Chloride (Diflucan 100 Mg/ NS (Pmx)) 50 ml @ 50 mls/hr Q24H IVPB Last administered on 03/22/17t 15:27; Admin Dose 50 MLS/HR; Start at 15:00 Collagenase (Santyl) 1 applic PRN PRN TOP SOILNG; Start 03/22/17 at 16:15 AMY MORAN Mar 22, 2017 16:33
--- NOTE | 2017-03-22 16:40 | PN ---
DATE: 03/22/2017 SUBJECTIVE: No acute changes overnight. Patient is lying comfortably in bed, noncommunicative, afebrile. Temperature 98.4, pulse 77, respirations 20, blood pressure 146/87, saturation 99 on 30 FiO2. LABORATORY AND DIAGNOSTIC DATA: WBC 8.2, H and H 9.7 and 29.3, platelets 236,000, no shift. BUN 31, creatinine 0.92. MICROBIOLOGY: Blood cultures remain negative. Urine culture growing yeast. DIAGNOSTICS: CT of the abdomen and pelvis revealed small bowel obstruction with a transition point within the left lower abdomen unchanged from December 10, 2016; left abdominal colostomy; moderate emphysematous changes; mild bibasilar atelectasis; and scattered airspace opacities, greater on the right, increased compared with the prior study; bilateral small pleural effusions; left renal calculi, vascular calcification reflective of atherosclerosis; NG tube. INDWELLINGS: Trach, PEG, Chaudhari. ANTIMICROBIALS: Vancomycin, Zosyn. PHYSICAL EXAMINATION: GENERAL: This is a fragile, chronically ill-appearing, elderly man, who is lethargic, in no distress. HEENT: Head atraumatic, normocephalic. Sclerae anicteric. Buccal mucosa dry. NECK: Supple. Tracheostomy present. CHEST: Rise symmetrical. Breath sounds diminished at the bases. HEART: S1, S2. ABDOMEN: Soft, bowel sounds present. EXTREMITIES: Without cyanosis. SKIN: Multiple chronic wounds. ASSESSMENT: 1. Sepsis secondary to recurrent urinary tract infection and possible healthcare-associated pneumonia. 2. Arsiz-hg-eripune respiratory failure. 3. Chronic encephalopathy. 4. Multiple chronic wounds. 5. Small bowel obstruction as per repeat CT on this admission. PLAN: Patient is stable off pressors. Gastroenterology and pulmonary team follow him. We are going to add Diflucan to the regimen. Await for urine cultures. Continue local wound care. Follow recommendations of consultants. Dictated By: Nissa Heredia NP /kilo/kera /Document#: [id number]
--- NOTE | 2017-03-22 19:53 | CONS ---
Date/Time of Note Date/Time of Note DATE: 03/22/17 TIME: 19:51 Assessment/Plan Assessment/Plan Additional Assessment/Plan small bowel obstruction plan surg consult pending Consultation Date/Type/Reason Admit Date/Time Mar 20, 2017 at 23:37 Initial Consult Date 03/21/17 pt admitted with vomitting Type of Consultation: Pulmonary Exam/Review of Systems Vital Signs Vitals Vital Signs Date Time Temp Pulse Resp B/P Pulse Ox O2 Delivery O2 Flow Rate FiO2 03/22/17 19:00 78 20 154/91 97 Mechanical Ventilator 03/22/17 17:40 30 03/22/17 16:00 97.8 03/22/17 07:34 10.0 Intake and Output 03/21/17 03/21/17 03/22/17 15:00 23:00 07:00 Intake Total 200 ml 1250 ml Balance 200 ml 1250 ml Exam p-tv has g tube in place draining greenish liquid wbc high ct abd showes sbo Results Result Diagram: 03/22/17 0540 03/22/17 0540 Results 24 hrs Laboratory Tests Test 03/22/17 05:40 White Blood Count 8.2 Red Blood Count 3.31 L Hemoglobin 9.7 L Hematocrit 29.3 L Mean Corpuscular Volume 88.5 Mean Corpuscular Hemoglobin 29.3 Mean Corpuscular Hemoglobin Concent 33.1 Red Cell Distribution Width 16.4 H Platelet Count 236 Mean Platelet Volume 13.3 H Neutrophils % 61.2 Lymphocytes % 19.9 Monocytes % 12.4 H Eosinophils % 5.5 Basophils % 0.5 Nucleated Red Blood Cells % 0.0 Neutrophils # (Manual) 5 Lymphocytes # 1.6 Monocytes # 1.0 H Eosinophils # 0.5 Basophils # 0.0 Nucleated Red Blood Cells # 0.0 Sodium Level 142 Potassium Level 3.8 Chloride Level 98 Carbon Dioxide Level 30 Anion Gap 18 H Blood Urea Nitrogen 31 H Creatinine 0.92 Glucose Level 126 Calcium Level 9.6 Medications Medications Current Medications Ondansetron HCl (Zofran Inj) 4 mg Q6H PRN IV NAUSEA AND/OR VOMITING; Start at 23:30 Acetaminophen (Tylenol Tab) 650 mg Q6H PRN PO PAIN LEVEL 1-3 OR FEVER Last administered on 03/21/17t 03:14; Admin Dose 650 MG; Start 03/20/17 at 23:30 Morphine Sulfate (morphine) 2 mg Q4H PRN IV PAIN LEVEL 7-10; Start 03/20/17 at 23:30 Famotidine (Pepcid Iv) 20 mg Q12 IV Last administered on 03/22/17 10:07; Admin Dose 20 MG; Start 03/21/17 at 09:00 Enoxaparin Sodium 30 mg 30 mg DAILY SC Last administered on 03/22/17 10:07; Admin Dose 30 MG; Start 03/21/17 at 09:00 Piperacillin Sod/ Tazobactam Sod 100 ml @ 200 mls/hr Q6 IVPB Last administered on 03/22/17 18:18; Admin Dose 200 MLS/HR; Start 03/21/17 at 06:00 Potassium Chloride/Dextrose/ Sod Cl 1,000 ml @ 70 mls/hr [id number] IV Last administered on 03/22/17 07:46; Admin Dose 70 MLS/HR; Start 03/21/17 at 13:00 Vancomycin HCl/ Sodium Chloride (Vancocin/NS) 150 ml @ 75 mls/hr Q12H IVPB Last administered on 03/22/17 17:32; Admin Dose 75 MLS/HR; Start 03/22/17 at 05 :00 Miscellaneous Information VANCOMYCIN TROUGH ON 03/23... ONCE ONCE XX ; Start at 04:00; Stop 03/23/17 at 04:01 Fluconazole/ Sodium Chloride (Diflucan 100 Mg/ NS (Pmx)) 50 ml @ 50 mls/hr Q24H IVPB Last administered on 03/22/17 15:27; Admin Dose 50 MLS/HR; Start at 15:00 Collagenase (Santyl) 1 applic PRN PRN TOP SOILNG; Start 03/22/17 at 16:15 KATELYN SILVERMAN MD Mar 22, 2017 19:53
[2017-03-23] VITALS (36 sets, daily range): BP systolic 125–175; BP diastolic 71–108; PULSE 55–84; RESP 18–25
[2017-03-23] MEDS: PIPER-TAZO 3.375 GM IV (PMX) 100 ML IVPB SCH ×5 (00:12→23:43)
[2017-03-23 04:10] LABS: BASOPHILS % 0.4 % (0.0-2.0); EOSINOPHILS % 10.2 % (0.0-7.0); HEMATOCRIT 29.5 % (42.0-52.0); HEMOGLOBIN 9.9 g/dl (14.0-18.0); LYMPHOCYTES # 2.1 10^3/ul (0.8-2.9); LYMPHOCYTES % 22.6 % (15.0-51.0); MEAN CORPUSCULAR HEMOGLOBIN 29.6 pg (29.0-33.0); MEAN CORPUSCULAR HGB CONC 33.6 g/dl (32.0-37.0); MEAN CORPUSCULAR VOLUME 88.3 fl (82.0-101.0); MEAN PLATELET VOLUME 12.5 fl (7.4-10.4); MONOCYTE # 1.3 10^3/ul (0.3-0.9); MONOCYTES % 13.4 % (0.0-11.0); NEUTROPHILS % 52.9 % (39.0-77.0); PLATELET COUNT 241 10^3/UL (140-415); RED BLOOD COUNT 3.34 10^6/ul (4.70-6.10); RED CELL DISTRIBUTION WIDTH 16.4 % (11.5-14.5); WHITE BLOOD COUNT 9.3 10^3/ul (4.8-10.8)
[2017-03-23] MEDS: D5W-0.45 NACL + KCL 20 MEQ 1,000 ML IV SCH ×3 (04:30→22:12)
[2017-03-23 04:45] LABS: ALBUMIN 3.4 g/dl (3.3-4.9); ALBUMIN/GLOBULIN RATIO 0.77; BILIRUBIN,INDIRECT 0.4 mg/dl (0-1.1); BILIRUBIN,TOTAL 0.4 mg/dl (0.2-1.3); CALCIUM 9.4 mg/dl (8.4-10.2); CREATININE 0.95 mg/dl (0.61-1.24); POTASSIUM 3.8 mmol/L (3.5-5.1); TOTAL PROTEIN 7.8 g/dl (6.1-8.1)
[2017-03-23] MEDS: FAMOTIDINE 20 MG INJ IV SCH ×2 (08:11→20:25)
[2017-03-23] MEDS: ENOXAPARIN 30 MG/0.3 ML SYG SC SCH (08:17)
--- NOTE | 2017-03-23 09:04 | CONS ---
Date/Time of Note Date/Time of Note DATE: 03/23/17 TIME: 09:02 Assessment/Plan Assessment/Plan Additional Assessment/Plan Ventilator setting; AC of 20, tidal volume 500, PEEP of 5, 30% FiO2. CT abdomen was reviewed from yesterday which is showing possible small bowel obstruction. Assessment and recommendations; 1. Patient with history of chronic respiratory failure which is ventilator dependent admitted with bilateral pneumonia. 2. Advanced multi-infarct dementia. 3. Possible small bowel obstruction. 4. G-tube malfunction. Continue current supportive care. GI consult appreciated. Pulses remains poor. Consultation Date/Type/Reason Admit Date/Time Mar 20, 2017 at 23:37 Initial Consult Date 03/21/17 Type of Consultation: Pulmonary/critical care 24 HR Interval Summary Free Text/Dictation Patient condition remains unchanged. Remains chronically ventilator dependent. Remains completely unresponsive due to advanced anoxic brain injury/dementia. General exam; elderly male, on ventilator via tracheostomy, unresponsive, currently in no distress. Exam/Review of Systems Vital Signs Vitals Vital Signs Date Time Temp Pulse Resp B/P Pulse Ox O2 Delivery O2 Flow Rate FiO2 03/23/17 07:50 79 20 100 30 03/23/17 07:00 141/71 Mechanical Ventilator 03/23/17 04:00 98.0 03/22/17 07:34 10.0 Intake and Output 03/22/17 03/22/17 03/23/17 14:59 22:59 06:59 Intake Total 550 ml 580 ml 760 ml Output Total 685 ml 515 ml 960 ml Balance -135 ml 65 ml -200 ml Exam HEENT exam; supple neck, no JVD. No lymphadenopathy. Midline trachea. No thyromegaly. Patient is edentulous. Tracheostomy in place with clean insertion site. Chest exam; diminished but clear breath sound. S1-S2 audible, no murmurs. Regular rhythm. Abdomen exam; soft, G-tube in place. Bowel sounds are sluggish. No organomegaly. Abdomen is scaphoid. Extremity exam; trace peripheral edema. Patient does have contractures involving all 4 extremities. ANESTHESIOLOGY TECH exam; patient remains unresponsive Results Result Diagram: 03/23/17 0357 03/23/17 0357 Results 24 hrs Laboratory Tests Test 03/23/17 03:57 White Blood Count 9.3 Red Blood Count 3.34 L Hemoglobin 9.9 L Hematocrit 29.5 L Mean Corpuscular Volume 88.3 Mean Corpuscular Hemoglobin 29.6 Mean Corpuscular Hemoglobin Concent 33.6 Red Cell Distribution Width 16.4 H Platelet Count 241 Mean Platelet Volume 12.5 H Neutrophils % 52.9 Lymphocytes % 22.6 Monocytes % 13.4 H Eosinophils % 10.2 H Basophils % 0.4 Nucleated Red Blood Cells % 0.0 Neutrophils # (Manual) 5 Lymphocytes # 2.1 Monocytes # 1.3 H Eosinophils # 1.0 H Basophils # 0.0 Nucleated Red Blood Cells # 0.0 Sodium Level 140 Potassium Level 3.8 Chloride Level 103 Carbon Dioxide Level 28 Anion Gap 13 Blood Urea Nitrogen 25 H Creatinine 0.95 Glucose Level 103 Calcium Level 9.4 Total Bilirubin 0.4 Direct Bilirubin 0.00 Indirect Bilirubin 0.4 Aspartate Amino Transf (AST/SGOT) 93 H Alanine Aminotransferase (ALT/SGPT) 109 H Alkaline Phosphatase 75 Total Protein 7.8 Albumin 3.4 Globulin 4.40 H Albumin/Globulin Ratio 0.77 Vancomycin Level Trough 19.7 Medications Medications Current Medications Ondansetron HCl (Zofran Inj) 4 mg Q6H PRN IV NAUSEA AND/OR VOMITING; Start at 23:30 Acetaminophen (Tylenol Tab) 650 mg Q6H PRN PO PAIN LEVEL 1-3 OR FEVER Last administered on 03/21/17 03:14; Admin Dose 650 MG; Start 03/20/17 at 23:30 Morphine Sulfate (morphine) 2 mg Q4H PRN IV PAIN LEVEL 7-10; Start 03/20/17 at 23:30 Famotidine (Pepcid Iv) 20 mg Q12 IV Last administered on 03/23/17 08:11; Admin Dose 20 MG; Start 03/21/17 at 09:00 Enoxaparin Sodium 30 mg 30 mg DAILY SC Last administered on 03/23/17 08:17; Admin Dose 30 MG; Start 03/21/17 at 09:00 Piperacillin Sod/ Tazobactam Sod 100 ml @ 200 mls/hr Q6 IVPB Last administered on 03/23/17 05:37; Admin Dose 200 MLS/HR; Start 03/21/17 at 06:00 Potassium Chloride/Dextrose/ Sod Cl 1,000 ml @ 70 mls/hr [id number] IV Last administered on 03/23/17 04:30; Admin Dose 70 MLS/HR; Start 03/21/17 at 13:00 Fluconazole/ Sodium Chloride (Diflucan 100 Mg/ NS (Pmx)) 50 ml @ 50 mls/hr Q24H IVPB Last administered on 03/22/17 15:27; Admin Dose 50 MLS/HR; Start at 15:00 Collagenase 1 applic 1 applic PRN PRN TOP SOILNG; Start 03/22/17 at 16:15 Vancomycin HCl (Vancocin) 250 ml @ 125 mls/hr Q24H IVPB ; Start 03/23/17 at 10: 00 SHAAN BUTT Mar 23, 2017 09:04
[2017-03-23] MEDS: VANCOMYCIN 1 GM in NS 250 ML IVPB SCH (11:48)
--- NOTE | 2017-03-23 13:39 | PN ---
Date/Time of Note Date/Time of Note DATE: 03/23/17 TIME: 13:35 Assessment/Plan VTE Prophylaxis VTE Prophylaxis Intervention: SCD's Lines/Catheters IV [facility] Saline Lock Urinary Cath still in place: Yes Reason Cath still needed: urinary retention Assessment/Plan Chief Complaint/Hosp Course Patient's continues to have a large gastric output from G-tube which is still low wall suctioning. Assessment/Plan -Sepsis secondary to urinary tract infection an possible pneumonia. Continue broad-spectrum antibiotics. Dr. Almazan is following an infection disease consultation. -Intractable nausea and vomiting, rule out gastric outlet obstruction. Dr. Cha is following in gastroenterology consultation. - SBO, general surgery consultation Dr. Gay is requested. -Colostomy. -Hyperkalemia secondary to dehydration, resolved. -Ventilator-dependent respiratory failure. Dr. Saenz is following in pulmonology consultation. -Subdural hematoma with chronic encephalopathy. -Chronic obstructive pulmonary disease. -Dysphagia with G-tube. Further recommendations based on clinical course. Plan of care discussed with Dr. Meeks. Problems: Exam/Review of Systems Vital Signs Vitals Vital Signs Date Time Temp Pulse Resp B/P Pulse Ox O2 Delivery O2 Flow Rate FiO2 03/23/17 13:24 75 20 100 30 03/23/17 13:00 165/98 Mechanical Ventilator 03/23/17 12:00 98.7 03/22/17 07:34 10.0 Intake and Output 03/22/17 03/22/17 03/23/17 15:00 23:00 07:00 Intake Total 550 ml 650 ml 760 ml Output Total 715 ml 525 ml 950 ml Balance -165 ml 125 ml -190 ml Exam Constitutional: frail, non-verbal Head: normocephalic Neck: other (Tracheostomy), supple Respiratory: diminished breath sounds Cardiovascular: nl pulses Gastrointestinal: other (G-tube), soft, colostomy Extremities: normal pulses Skin: other (Multiple wounds) Results Result Diagram: 03/23/17 0357 03/23/17 0357 Results 24 hrs Laboratory Tests Test 03/23/17 03:57 White Blood Count 9.3 Red Blood Count 3.34 L Hemoglobin 9.9 L Hematocrit 29.5 L Mean Corpuscular Volume 88.3 Mean Corpuscular Hemoglobin 29.6 Mean Corpuscular Hemoglobin Concent 33.6 Red Cell Distribution Width 16.4 H Platelet Count 241 Mean Platelet Volume 12.5 H Neutrophils % 52.9 Lymphocytes % 22.6 Monocytes % 13.4 H Eosinophils % 10.2 H Basophils % 0.4 Nucleated Red Blood Cells % 0.0 Neutrophils # (Manual) 5 Lymphocytes # 2.1 Monocytes # 1.3 H Eosinophils # 1.0 H Basophils # 0.0 Nucleated Red Blood Cells # 0.0 Sodium Level 140 Potassium Level 3.8 Chloride Level 103 Carbon Dioxide Level 28 Anion Gap 13 Blood Urea Nitrogen 25 H Creatinine 0.95 Glucose Level 103 Calcium Level 9.4 Total Bilirubin 0.4 Direct Bilirubin 0.00 Indirect Bilirubin 0.4 Aspartate Amino Transf (AST/SGOT) 93 H Alanine Aminotransferase (ALT/SGPT) 109 H Alkaline Phosphatase 75 Total Protein 7.8 Albumin 3.4 Globulin 4.40 H Albumin/Globulin Ratio 0.77 Vancomycin Level Trough 19.7 Medications Medications Current Medications Ondansetron HCl (Zofran Inj) 4 mg Q6H PRN IV NAUSEA AND/OR VOMITING; Start at 23:30 Acetaminophen (Tylenol Tab) 650 mg Q6H PRN PO PAIN LEVEL 1-3 OR FEVER Last administered on 03/21/17 03:14; Admin Dose 650 MG; Start 03/20/17 at 23:30 Morphine Sulfate (morphine) 2 mg Q4H PRN IV PAIN LEVEL 7-10; Start 03/20/17 at 23:30 Famotidine (Pepcid Iv) 20 mg Q12 IV Last administered on 03/23/17 08:11; Admin Dose 20 MG; Start 03/21/17 at 09:00 Enoxaparin Sodium 30 mg 30 mg DAILY SC Last administered on 03/23/17 08:17; Admin Dose 30 MG; Start 03/21/17 at 09:00 Piperacillin Sod/ Tazobactam Sod 100 ml @ 200 mls/hr Q6 IVPB Last administered on 03/23/17 12:05; Admin Dose 200 MLS/HR; Start 03/21/17 at 06:00 Potassium Chloride/Dextrose/ Sod Cl 1,000 ml @ 70 mls/hr [id number] IV Last administered on 03/23/17 04:30; Admin Dose 70 MLS/HR; Start 03/21/17 at 13:00 Fluconazole/ Sodium Chloride (Diflucan 100 Mg/ NS (Pmx)) 50 ml @ 50 mls/hr Q24H IVPB Last administered on 03/22/17t 15:27; Admin Dose 50 MLS/HR; Start at 15:00 Collagenase 1 applic 1 applic PRN PRN TOP SOILNG; Start 03/22/17 at 16:15 Vancomycin HCl (Vancocin) 250 ml @ 125 mls/hr Q24H IVPB ; Start 03/23/17 at 10: 00 AMY MORAN Mar 23, 2017 13:39
[2017-03-23] MEDS: MINERAL OIL 30ML CUP GTB SCH ×3 (15:00→22:00)
[2017-03-23] MEDS: morphine 2 MG INJ IV PRN (15:29)
--- NOTE | 2017-03-23 15:56 | PN ---
DATE: 03/23/2017 SUBJECTIVE DATA: No events overnight. Patient is nonverbal, noncommunicative, and in no distress. No fevers. LABORATORY AND DIAGNOSTIC DATA: WBC 9.3, H and H 9.9 and 29.5, platelets 241, no shift, no bands. BUN 25, creatinine 0.95. MICROBIOLOGY: Blood cultures remain negative. Urine culture grew Noemí species not albicans. INDWELLINGS: Trach, PEG, Chaudhari. ANTIMICROBIALS: 1. Vancomycin. 2. Fluconazole. 3. Zosyn. PHYSICAL EXAMINATION: VITAL SIGNS: Temperature 98.7, pulse 75, respirations 20, blood pressure 165/98, saturation 98 on 30 FiO2. GENERAL: This is a fragile, chronically ill-appearing, elderly man, who is in no distress. HEENT: Head atraumatic, normocephalic. Sclerae anicteric. Buccal mucosa dry. NECK: Supple. Tracheostomy present. CHEST: Rise symmetrical. Breath sounds diminished at bases. HEART: S1, S2. ABDOMEN: Soft, bowel sounds present. EXTREMITIES: No cyanosis. SKIN: With multiple decubiti. ASSESSMENT: 1. Sepsis. 2. Small-bowel obstruction. 3. Ofkky-sn-iyntiyq respiratory failure, possibly healthcare- associated pneumonia. 4. Multiple chronic wounds. 5. Chronic encephalopathy. 6. Fungal urinary tract infection. PLAN: Patient remains unchanged. Pending surgical evaluation. We are going to start him on Cancidas. Discontinue Diflucan. Continue other antibiotics. Await for nares swab. Dictated By: Nissa Heredia NP /kilo/lilian /Document#: [id number]
[2017-03-23] MEDS ORDERED: CASPOFUNGIN 70 MG in SOD CHLORIDE 0.9% 250 ML IVPB ONE (16:00)
[2017-03-23] MEDS: MINERAL OIL 133 ML ENEMA PR SCH (16:23)
[2017-03-23] MEDS: hydrALAzine 20 MG INJ IV PRN (18:44)
[2017-03-24] VITALS (36 sets, daily range): BP systolic 123–175; BP diastolic 77–108; PULSE 60–89; RESP 19–24
[2017-03-24] MEDS: MINERAL OIL 30ML CUP GTB SCH ×3 (05:01→21:30)
[2017-03-24] MEDS: hydrALAzine 20 MG INJ IV PRN ×2 (05:01→18:44)
[2017-03-24 06:33] LABS: BASOPHILS % 0.5 % (0.0-2.0); EOSINOPHILS # 1.2 10^3/ul (0.0-0.5); EOSINOPHILS % 14.3 % (0.0-7.0); HEMATOCRIT 28.1 % (42.0-52.0); HEMOGLOBIN 9.2 g/dl (14.0-18.0); LYMPHOCYTES # 2.1 10^3/ul (0.8-2.9); MEAN CORPUSCULAR HEMOGLOBIN 28.4 pg (29.0-33.0); MEAN CORPUSCULAR HGB CONC 32.7 g/dl (32.0-37.0); MEAN CORPUSCULAR VOLUME 86.7 fl (82.0-101.0); MEAN PLATELET VOLUME 12.7 fl (7.4-10.4); MONOCYTE # 1.1 10^3/ul (0.3-0.9); MONOCYTES % 13.5 % (0.0-11.0); NEUTROPHILS % 45.3 % (39.0-77.0); NUCLEATED RED BLOOD CELLS% 0.2 /100WBC (0.0-0.0); PLATELET COUNT 259 10^3/UL (140-415); RED BLOOD COUNT 3.24 10^6/ul (4.70-6.10); RED CELL DISTRIBUTION WIDTH 16.7 % (11.5-14.5); WHITE BLOOD COUNT 8.1 10^3/ul (4.8-10.8)
[2017-03-24] MEDS: PIPER-TAZO 3.375 GM IV (PMX) 100 ML IVPB SCH ×3 (06:33→17:32)
[2017-03-24] MEDS: D5W-0.45 NACL + KCL 20 MEQ 1,000 ML IV SCH ×2 (07:01→23:51)
[2017-03-24 07:20] LABS: ALBUMIN 2.7 g/dl (3.3-4.9); ALBUMIN/GLOBULIN RATIO 0.71; BILIRUBIN,INDIRECT 0.2 mg/dl (0-1.1); BILIRUBIN,TOTAL 0.2 mg/dl (0.2-1.3); CALCIUM 8.1 mg/dl (8.4-10.2); CREATININE 0.78 mg/dl (0.61-1.24); POTASSIUM 4.9 mmol/L (3.5-5.1); TOTAL PROTEIN 6.5 g/dl (6.1-8.1)
[2017-03-24] MEDS: MINERAL OIL 133 ML ENEMA PR SCH ×3 (08:24→21:29)
[2017-03-24] MEDS: FAMOTIDINE 20 MG INJ IV SCH ×2 (08:46→21:29)
[2017-03-24] MEDS: AMLODIPINE 10 MG TAB GTB SCH (08:46)
[2017-03-24] MEDS: ENOXAPARIN 30 MG/0.3 ML SYG SC SCH (08:47)
[2017-03-24] MEDS: VANCOMYCIN 1 GM in NS 250 ML IVPB SCH (10:26)
--- NOTE | 2017-03-24 10:47 | CONS ---
Date/Time of Note Date/Time of Note DATE: 03/24/17 TIME: 10:45 Assessment/Plan Assessment/Plan Additional Assessment/Plan Ventilator setting; AC of 20, tidal volume 500, PEEP of 5, 30% FiO2. Assessment and recommendations; 1. Patient with history of advanced dementia and chronic respiratory failure admitted for bilateral pneumonia. Currently on appropriate antibiotic regimen. 2. G-tube malfunction. 3. Possible small bowel obstruction. However abdominal examination is benign today. 4. Episode of hyperglycemia. Continue current supportive care. Monitor blood sugars. Overall prognosis remains extremely poor. Consultation Date/Type/Reason Admit Date/Time Mar 20, 2017 at 23:37 Initial Consult Date 03/21/17 Type of Consultation: Pulmonary/critical care 24 HR Interval Summary Free Text/Dictation Patient condition remains critical. Patient is chronically ventilator dependent. Patient however has remained hemodynamically stable. General exam; elderly male, on ventilator via tracheostomy, unresponsive, currently in no distress. Exam/Review of Systems Vital Signs Vitals Vital Signs Date Time Temp Pulse Resp B/P Pulse Ox O2 Delivery O2 Flow Rate FiO2 03/24/17 08:00 30 03/24/17 08:00 85 03/24/17 07:00 20 134/77 97 Mechanical Ventilator 03/24/17 04:00 98.0 03/22/17 07:34 10.0 Intake and Output 03/23/17 03/23/17 03/24/17 15:00 23:00 07:00 Intake Total 590 ml 910 ml 760 ml Output Total 275 ml 965 ml 230 ml Balance 315 ml -55 ml 530 ml Exam HEENT exam; supple neck, no JVD. No lymphadenopathy. Midline trachea. No thyromegaly. Tracheostomy in place. Patient is edentulous. Chest exam; scattered crackles bilaterally. S1-S2 audible, no murmurs. Regular rhythm. Abdomen exam; soft, bowel sounds audible. G-tube in place. No organomegaly. Extremity exam; no peripheral edema. Patient does have contractures involving all 4 extremities. 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 Results Result Diagram: 03/24/17 0602 03/24/17 0602 Results 24 hrs Laboratory Tests Test 03/24/17 06:02 03/24/17 07:50 White Blood Count 8.1 Red Blood Count 3.24 L Hemoglobin 9.2 L Hematocrit 28.1 L Mean Corpuscular Volume 86.7 Mean Corpuscular Hemoglobin 28.4 L Mean Corpuscular Hemoglobin Concent 32.7 Red Cell Distribution Width 16.7 H Platelet Count 259 Mean Platelet Volume 12.7 H Neutrophils % 45.3 Lymphocytes % 26.0 Monocytes % 13.5 H Eosinophils % 14.3 H Basophils % 0.5 Nucleated Red Blood Cells % 0.2 H Neutrophils # (Manual) 4 Lymphocytes # 2.1 Monocytes # 1.1 H Eosinophils # 1.2 H Basophils # 0.0 Nucleated Red Blood Cells # 0.0 Sodium Level 135 Potassium Level 4.9 Chloride Level 104 Carbon Dioxide Level 23 Anion Gap 13 Blood Urea Nitrogen 15 # Creatinine 0.78 Glucose Level 464 #*H Calcium Level 8.1 L Total Bilirubin 0.2 Direct Bilirubin 0.00 Indirect Bilirubin 0.2 Aspartate Amino Transf (AST/SGOT) 46 # Alanine Aminotransferase (ALT/SGPT) 81 H Alkaline Phosphatase 62 Total Protein 6.5 # Albumin 2.7 L Globulin 3.80 H Albumin/Globulin Ratio 0.71 Bedside Glucose 124 Medications Medications Current Medications Ondansetron HCl (Zofran Inj) 4 mg Q6H PRN IV NAUSEA AND/OR VOMITING; Start at 23:30 Acetaminophen (Tylenol Tab) 650 mg Q6H PRN PO PAIN LEVEL 1-3 OR FEVER Last administered on 03/21/17 03:14; Admin Dose 650 MG; Start 03/20/17 at 23:30 Morphine Sulfate (morphine) 2 mg Q4H PRN IV PAIN LEVEL 7-10 Last administered on 03/23/17 15:29; Admin Dose 2 MG; Start 03/20/17 at 23:30 Famotidine (Pepcid Iv) 20 mg Q12 IV Last administered on 03/24/17 08:46; Admin Dose 20 MG; Start 03/21/17 at 09:00 Enoxaparin Sodium 30 mg 30 mg DAILY SC Last administered on 03/24/17 08:47; Admin Dose 30 MG; Start 03/21/17 at 09:00 Piperacillin Sod/ Tazobactam Sod 100 ml @ 200 mls/hr Q6 IVPB Last administered on 03/24/17 06:33; Admin Dose 200 MLS/HR; Start 03/21/17 at 06:00 Potassium Chloride/Dextrose/ Sod Cl (D5-1/2ns + KCl 20 Meq) 1,000 ml @ 70 mls/ hr [id number] IV Last administered on 03/24/17 07:01; Admin Dose 70 MLS/HR; Start 03/21/17 at 13:00 Collagenase 1 applic 1 applic PRN PRN TOP SOILNG; Start 03/22/17 at 16:15 Vancomycin HCl 250 ml @ 125 mls/hr Q24H IVPB Last administered on 03/24/17 10 :26; Admin Dose 125 MLS/HR; Start 03/23/17 at 10:00 Caspofungin/ Sodium Chloride (Cancidas/NS) 250 ml @ 250 mls/hr Q24H IVPB ; Start 03/24/17 at 16:00 Mineral Oil (Mineral Oil) 50 ml Q8 GTB Last administered on 03/24/17 05:01; Admin Dose 50 ML; Start 03/23/17 at 15:00 Amlodipine Besylate (Norvasc) 10 mg DAILY GTB Last administered on 03/24/17 08 :46; Admin Dose 10 MG; Start 03/24/17 at 09:00 Hydralazine HCl (Apresoline) 20 mg Q6H PRN IV FOR SBP>160 Last administered on 03/24/17 05:01; Admin Dose 20 MG; Start 03/23/17 at 18:30 SHAAN BUTT Mar 24, 2017 10:47
--- NOTE | 2017-03-24 14:16 | PN ---
DATE: 03/24/2017 SUBJECTIVE DATA: No events overnight. The patient is noncommunicative and nonverbal, lying comfortably in bed. He is afebrile. LABORATORY DATA: Revealed WBC 8.1, H and H 9.2 and 28.1, platelets 259, no shift, no bands. BUN 15, creatinine 0.78. ANTIMICROBIAL: Cancidas, vancomycin, and Zosyn. INDWELLING: Trach, PEG, and Chaudhari. PHYSICAL EXAMINATION: VITAL SIGNS: Temperature 98.3, pulse 85, respirations 20, blood pressure 137/89, and saturation 96 on 30 FiO2. GENERAL: This is a fragile, chronically ill-appearing, elderly man, who is in no distress. HEENT: Head atraumatic, normocephalic. Sclerae anicteric. Buccal mucosa dry. NECK: Supple. Tracheostomy present. CHEST: Rise symmetrical. Breath sounds diminished at the bases. HEART: S1, S2. ABDOMEN: Soft, bowel sounds present. EXTREMITIES: Without cyanosis. ASSESSMENT: 1. Resolving sepsis. 2. Small bowel obstruction as per CT of the abdomen. 3. Acute on chronic respiratory failure, possibly pneumonia. 4. Multiple chronic wounds. 5. Urinary tract infection. 6. Chronic encephalopathy. PLAN: 1. The patient remains stable. 2. Continue present care. 3. Antibiotics. 4. Await for surgical evaluation. 5. Follow recommendations of consultants. 6. Continue local wound care. Dictated By: Nissa Heredia NP /kilo/karishma /Document#: [id number]
[2017-03-24] MEDS: CASPOFUNGIN 50 MG in SOD CHLORIDE 0.9% 250 ML IVPB SCH (16:14)
--- NOTE | 2017-03-24 20:50 | PN ---
DATE: 03/24/2017 SUBJECTIVE DATA: The patient is on the ventilator. No complaint. OBJECTIVE DATA: VITAL SIGNS: Temperature 98.4, heart rate 66, respirations 20, blood pressure 155/102, saturation 96 percent on the ventilator. LABORATORY: Sodium and potassium normal. Creatinine 0.78, AST normalized to 46, AST is down to 81, slightly elevated. Albumin is low down to 2.7. The record shows gastrostomy tube drainage has been 720 cc in the past 24 hours. The colostomy bag is empty, though since last night we have started the patient on mineral oil through the G-tube and also Fleet mineral oil enema, but so far he has not had any bowel movement. Abdomen is soft. It is slightly distended. IMPRESSION: Fecal impaction leading to a small bowel obstruction. PLAN: 1. _to give mineral oil 50 cc through G-tube q.8 hours, clamping for 3 hours and then unclamp the NG tube. Connected to intermittent suction. 2. Start daily Fleet mineral oil enema from the upper hole of the loop colostomy b.i.d. 3. Start Reglan 5 mg IV q.8hr times a day. 4. I will continue to follow the patient in this regard with other colleagues. Dictated By: Esau Gay MD /kilo/loree /Document#: [id number] OZZY
[2017-03-24] MEDS ORDERED: MINERAL OIL 133 ML ENEMA PR SCH (21:00)
[2017-03-24] MEDS: METOCLOPRAMIDE 10 MG INJ IV SCH (21:29)
--- NOTE | 2017-03-24 22:50 | CONS ---
DATE OF ADMISSION: 03/20/2017 DATE OF CONSULTATION: 03/23/2017 REASON FOR CONSULTATION: Type of consultation: Surgical, requesting by Dr. Meeks for evaluation of possible small-bowel obstruction. Thank you, Dr. Meeks for the consultation. As you know, I am familiar with this patient from the last admission that he was admitted in November because of the sepsis and also GI bleeding and was found to have a small-bowel obstruction which eventually was resolved and patient was [facility]. Now the [facility] is transferred [facility] in [facility] on 03/20/2017 because of vomiting reported in the [facility]. Apparently on arrival and admission to the emergency room the patient had a leukocyte count of 8,700, with 78 percent segmented, with slight shift to the left and hemoglobin 12 and hematocrit 35.9. The chemistry: BUN 37 on admission, AST 139, elevated ALT of 149, elevated, albumin 3.1. Urinalysis showed 3+ leukocyte esterase, and 67 RBCs per high-power field and 74 WBCs per high-power field with 3+ hemoglobin and some bacteria. Chest x-ray on admission here at this time showed: 1. New patchy pneumonia throughout the right lung with new right pleural effusion. 2. New pneumonia at the left lung base. Also a CT scan of the abdomen and pelvis was done in the emergency room and which I will discuss the finding later on. Eventually this patient was admitted with the impression of:;; 3. Sepsis secondary to urinary tract infection and possible pneumonia and started on antibiotics, broad spectrum. 4. Hyperkalemia secondary to dehydration. 5. Nausea and vomiting with the cause was not clear, but it was not bloody and it was not bilious. On CT scan there was suggestion of a small bowel obstruction. 6. Also patient was ventilator dependent because of the chronic respiratory failure and has tracheostomy. On the basis of the CT scan finding, which was read as follows. 7. Small bowel obstruction with a transition point within the left lower abdomen, unchanged from 12/10/2016. 8. Left abdominal colostomy. 9. Moderate emphysematous changes of the lungs. 10. Mild bibasilar atelectasis and scattered airspace opacities greater on the right, increased compared to the prior study. 11. Bilateral small pleural effusion. 12. Left renal calculi. 13. Vascular calcification reflective of atherosclerosis. 14. Gastrostomy tube. The thing which has not been mentioned by the radiologist is that there is extensive fecal material in the right colon and transverse colon and is stretching down to the below the fascia at the level of the colostomy and appears that this fecal material is so impacted that it is causing obstruction of the small bowel from the terminal ileum upward and some air-fluid level also was seen over there and that is probably why the patient has been vomiting. Of course, on the basis of sepsis, also patient could have been vomiting as well. PAST MEDICAL HISTORY: For further complete review of medical history, refer to the admitting physician's history and physical. PAST SURGICAL HISTORY: Status post tracheostomy and status post colostomy, status post G-tube placement. SOCIAL HISTORY: Patient is an ex-smoker. Currently is a resident of [facility]. ALLERGIES: NO KNOWN DRUG ALLERGIES. MEDICATION: Tylenol, albuterol, amiodarone, vitamin C, Peridex, Colace, metoprolol, Protonix, tramadol, cranberry extract, ferrous sulfate. PHYSICAL EXAMINATION: GENERAL APPEARANCE: The patient is nonverbal, laying down in the bed. Eyes are closed. No response to verbal or painful stimuli. Tracheostomy is in place. Patient is connected to the ventilator. A G-tube is to the upper abdomen entering the stomach, and is connected to the suction tube which happens to be a continuous suction which I told the nurse this is wrong and they have to connect it to intermittent suction and they immediately changed it to intermittent suction. EXTREMITIES: Both upper extremities are contracted. Lower extremities: Chronic deformity of the feet, but the knees are not contracted and the hips are not contracted. NECK: Supple. As mentioned, tracheostomy is in place. HEART: Regular rhythm. LUNGS: Decreased breathing sound on the bases. ABDOMEN: Slightly distended, tympanic and I cannot appreciate if is tender or not. G-tube is in place, as mentioned connected to the suction and has been changed to intermittent suction. NEUROLOGIC: Patient has chronic encephalopathy and sometimes opens his eyes but does not respond to any commands. LABORATORY: I mentioned the additional lab results and reports of the chest x-ray and report of the CT scan today. On the day of examination, namely 03/23/2017, WBC is 9,300, with 52 percent neutrophils, hemoglobin is 9.9, hematocrit 29.5. Platelet count is 241. Chemistry on the , sodium, potassium normal. BUN 25, creatinine 0.95. AST has decreased to 93, ALT has decreased to 109. IMPRESSION: Currently debilitated sick patient who is dependent on the ventilator with tracheostomy and G-tube and encephalopathy has been admitted because of vomiting from [facility] and thy found on CT scan that there is an air-fluid level in the small bowel and a small bowel dilation, compatible with a small- bowel obstruction. My assessment also reveals that the whole right colon and left colon and transverse colon is full of hard stool and as I did an examination of the loop colostomy on the left upper quadrant, it appears that the orifice of the colostomy through the fascia is a little bit tight and does not appear let the big pieces of this hard stool pass through and if the stool accumulates beyond this, this causes eventually a small bowel obstruction. I had explained this before to Dr. Meeks at last admission and we had some plan for preventing obstruction but apparently the [facility] did not follow the plan most probably. In any case, today the patient is of course obstructed in the small bowel because of the impacted stool in the right colon and transverse colon. PLAN: 1. We have to start manipulating the hard stool in the colon so that we can evacuate the whole stool from the colostomy and this is going to take some time, a few days at least. I am going to start the patient on mineral oil through the G-tube 50 mL every 8 hours and clamp it for 3 hours and then open it. 2. We are going to give Fleet mineral oil enemas through the loop colostomy b.i.d. to this patient until the patient starts passing stool. I will continue to follow the patient along with other colleagues. Of course the medical problems like pneumonia and renal infection and electrolyte management through primary care admitting physician. Thank you for consultation. Dictated By: Esau Gay MD /kilo/henny /Document#: [id number] OZZY
--- NOTE | 2017-03-24 23:00 | PN ---
Date/Time of Note Date/Time of Note DATE: 03/24/17 TIME: 22:54 Assessment/Plan VTE Prophylaxis VTE Prophylaxis Intervention: other Lines/Catheters IV [facility]from [facility] Peripheral IV Urinary Cath still in place: Yes Reason Cath still needed: urinary retention Assessment/Plan Assessment/Plan -Sepsis secondary to urinary tract infection an possible pneumonia. Continue broad-spectrum antibiotics. Dr. Almazan is following an infection disease consultation. -Intractable nausea and vomiting, rule out gastric outlet obstruction. Dr. Cha is following in gastroenterology consultation. - SBO, general surgery consultation Dr. Gay is requested. -Colostomy. -Hyperkalemia secondary to dehydration, resolved. -Ventilator-dependent respiratory failure. Dr. Saenz is following in pulmonology consultation. -Subdural hematoma with chronic encephalopathy. -Chronic obstructive pulmonary disease. -Dysphagia with G-tube. Further recommendations based on clinical course. Plan of care discussed with Dr. Meeks. Subjective 24 Hr Interval Summary Free Text/Dictation Late entry 1745 nad, seems comfortable, afebrile- ID, Pulmonary, surgery follow. dw staff Subjective hx not possible: pt non-verbal Constitutional: requiring IVF, requiring O2 Exam/Review of Systems Vital Signs Vitals Vital Signs Date Time Temp Pulse Resp B/P Pulse Ox O2 Delivery O2 Flow Rate FiO2 03/24/17 21:30 62 20 99 30 03/24/17 21:00 135/91 Mechanical Ventilator 03/24/17 20:00 98.0 03/22/17 07:34 10.0 Intake and Output 03/23/17 03/23/17 03/24/17 15:00 23:00 07:00 Intake Total 590 ml 910 ml 760 ml Output Total 275 ml 965 ml 330 ml Balance 315 ml -55 ml 430 ml Exam Constitutional: frail, non-verbal Respiratory: diminished breath sounds Cardiovascular: nl pulses, regular rate and rhythm Gastrointestinal: non-tender, soft Musculoskeletal: muscle weakness Extremities: normal pulses Neurological: unresponsive Results Result Diagram: 03/24/17 0602 03/24/17 0602 Results 24 hrs Laboratory Tests Test 03/24/17 06:02 03/24/17 07:50 White Blood Count 8.1 Red Blood Count 3.24 L Hemoglobin 9.2 L Hematocrit 28.1 L Mean Corpuscular Volume 86.7 Mean Corpuscular Hemoglobin 28.4 L Mean Corpuscular Hemoglobin Concent 32.7 Red Cell Distribution Width 16.7 H Platelet Count 259 Mean Platelet Volume 12.7 H Neutrophils % 45.3 Lymphocytes % 26.0 Monocytes % 13.5 H Eosinophils % 14.3 H Basophils % 0.5 Nucleated Red Blood Cells % 0.2 H Neutrophils # (Manual) 4 Lymphocytes # 2.1 Monocytes # 1.1 H Eosinophils # 1.2 H Basophils # 0.0 Nucleated Red Blood Cells # 0.0 Sodium Level 137 Potassium Level 4.9 Chloride Level 104 Carbon Dioxide Level 23 Anion Gap 15 Blood Urea Nitrogen 15 # Creatinine 0.78 Glucose Level 464 #*H Calcium Level 8.1 L Total Bilirubin 0.2 Direct Bilirubin 0.00 Indirect Bilirubin 0.2 Aspartate Amino Transf (AST/SGOT) 46 # Alanine Aminotransferase (ALT/SGPT) 81 H Alkaline Phosphatase 62 Total Protein 6.5 # Albumin 2.7 L Globulin 3.80 H Albumin/Globulin Ratio 0.71 Bedside Glucose 124 Medications Medications Current Medications Ondansetron HCl (Zofran Inj) 4 mg Q6H PRN IV NAUSEA AND/OR VOMITING; Start at 23:30 Acetaminophen (Tylenol Tab) 650 mg Q6H PRN PO PAIN LEVEL 1-3 OR FEVER Last administered on 03/21/17 03:14; Admin Dose 650 MG; Start 03/20/17 at 23:30 Morphine Sulfate (morphine) 2 mg Q4H PRN IV PAIN LEVEL 7-10 Last administered on 03/23/17 15:29; Admin Dose 2 MG; Start 03/20/17 at 23:30 Famotidine (Pepcid Iv) 20 mg Q12 IV Last administered on 03/24/17 21:29; Admin Dose 20 MG; Start 03/21/17 at 09:00 Enoxaparin Sodium 30 mg 30 mg DAILY SC Last administered on 03/24/17 08:47; Admin Dose 30 MG; Start 03/21/17 at 09:00 Piperacillin Sod/ Tazobactam Sod 100 ml @ 200 mls/hr Q6 IVPB Last administered on 03/24/17 17:32; Admin Dose 200 MLS/HR; Start 03/21/17 at 06:00 Potassium Chloride/Dextrose/ Sod Cl (D5-1/2ns + KCl 20 Meq) 1,000 ml @ 70 mls/ hr [id number] IV Last administered on 03/24/17 07:01; Admin Dose 70 MLS/HR; Start 03/21/17 at 13:00 Collagenase 1 applic 1 applic PRN PRN TOP SOILNG; Start 03/22/17 at 16:15 Vancomycin HCl 250 ml @ 125 mls/hr Q24H IVPB Last administered on 03/24/17 10 :26; Admin Dose 125 MLS/HR; Start 03/23/17 at 10:00 Caspofungin/ Sodium Chloride (Cancidas/NS) 250 ml @ 250 mls/hr Q24H IVPB Last administered on 03/24/17 16:14; Admin Dose 250 MLS/HR; Start 03/24/17 at 16:00 Mineral Oil (Mineral Oil) 50 ml Q8 GTB Last administered on 03/24/17 21:30; Admin Dose 50 ML; Start 03/23/17 at 15:00 Amlodipine Besylate (Norvasc) 10 mg DAILY GTB Last administered on 03/24/17 08 :46; Admin Dose 10 MG; Start 03/24/17 at 09:00 Hydralazine HCl (Apresoline) 20 mg Q6H PRN IV FOR SBP>160 Last administered on 03/24/17 18:44; Admin Dose 20 MG; Start 03/23/17 at 18:30 Metoclopramide HCl (Reglan) 5 mg TID IV Last administered on 03/24/17 21:29; Admin Dose 5 MG; Start 03/24/17 at 21:00 Mineral Oil (Fleet Mineral Oil Enema) 133 ml BID NV Last administered on 21:29; Admin Dose 133 ML; Start 03/24/17 at 21:00 MARIO ROWE Mar 24, 2017 23:00
[2017-03-25] VITALS (40 sets, daily range): BP systolic 128–168; BP diastolic 74–116; PULSE 56–82; RESP 18–25
[2017-03-25] MEDS: hydrALAzine 20 MG INJ IV PRN (01:31)
[2017-03-25] MEDS: PIPER-TAZO 3.375 GM IV (PMX) 100 ML IVPB SCH ×4 (06:40→18:07)
[2017-03-25] MEDS: MINERAL OIL 30ML CUP GTB SCH ×3 (06:40→21:09)
[2017-03-25 06:54] LABS: BASOPHILS % 0.4 % (0.0-2.0); EOSINOPHILS # 1.2 10^3/ul (0.0-0.5); EOSINOPHILS % 15.7 % (0.0-7.0); HEMATOCRIT 34.8 % (42.0-52.0); HEMOGLOBIN 11.3 g/dl (14.0-18.0); LYMPHOCYTES # 2.3 10^3/ul (0.8-2.9); LYMPHOCYTES % 30.9 % (15.0-51.0); MEAN CORPUSCULAR HEMOGLOBIN 28.5 pg (29.0-33.0); MEAN CORPUSCULAR HGB CONC 32.5 g/dl (32.0-37.0); MEAN CORPUSCULAR VOLUME 87.9 fl (82.0-101.0); MEAN PLATELET VOLUME 12.7 fl (7.4-10.4); MONOCYTES % 13.2 % (0.0-11.0); NEUTROPHILS % 39.4 % (39.0-77.0); NUCLEATED RED BLOOD CELLS% 0.5 /100WBC (0.0-0.0); PLATELET COUNT 285 10^3/UL (140-415); RED BLOOD COUNT 3.96 10^6/ul (4.70-6.10); WHITE BLOOD COUNT 7.6 10^3/ul (4.8-10.8)
[2017-03-25 07:21] LABS: CALCIUM 9.5 mg/dl (8.4-10.2); CREATININE 0.88 mg/dl (0.61-1.24); POTASSIUM 3.6 mmol/L (3.5-5.1)
[2017-03-25] MEDS: AMLODIPINE 10 MG TAB GTB SCH (08:58)
[2017-03-25] MEDS: MINERAL OIL 133 ML ENEMA PR SCH (08:58)
[2017-03-25] MEDS: METOCLOPRAMIDE 10 MG INJ IV SCH ×3 (08:58→21:09)
[2017-03-25] MEDS: FAMOTIDINE 20 MG INJ IV SCH ×2 (08:58→21:09)
[2017-03-25] MEDS: ENOXAPARIN 30 MG/0.3 ML SYG SC SCH (08:59)
--- NOTE | 2017-03-25 09:29 | CONS ---
Date/Time of Note Date/Time of Note DATE: 03/25/17 TIME: 09:24 Assessment/Plan Assessment/Plan Additional Assessment/Plan Ventilator setting; AC of 20, tidal volume 500, PEEP of 5, 30% FiO2. Assessment and recommendations; 1. Patient admitted for bilateral pneumonia currently on appropriate antibiotic regimen. 2. Small bowel obstruction likely from fecal impaction with interval improvement as well. No surgical intervention recommended. 3. Advanced multi-infarct dementia, patient remains chronically ventilator dependent. In an almost persistent vegetative state. 4. Mild anemia. 5. G-tube malfunction, patient however did not require any intervention on that aspect as well. G-tube functioning fairly well at this point. Continue current treatment. Overall prognosis remains very poor. Consultation Date/Type/Reason Admit Date/Time Mar 20, 2017 at 23:37 Initial Consult Date 03/21/17 Type of Consultation: Pulmonary/critical care 24 HR Interval Summary Free Text/Dictation Patient's condition remains stable. Remains chronically ventilator dependent and profoundly unresponsive which is his underlying mental status due to multi- infarct dementia. Patient has remained hemodynamically stable. No untoward events reported. General exam; elderly male, on ventilator via tracheostomy, currently in no distress. Unresponsive. Exam/Review of Systems Vital Signs Vitals Vital Signs Date Time Temp Pulse Resp B/P Pulse Ox O2 Delivery O2 Flow Rate FiO2 03/25/17 09:01 67 20 100 30 03/25/17 07:00 144/85 03/25/17 06:00 Mechanical Ventilator 03/25/17 04:00 97.8 03/22/17 07:34 10.0 Intake and Output 03/24/17 03/24/17 03/25/17 15:00 23:00 07:00 Intake Total 1090 ml 805 ml 590 ml Output Total 360 ml 560 ml 370 ml Balance 730 ml 245 ml 220 ml Exam HEENT exam; supple neck, no JVD. No lymphadenopathy. Midline trachea. No thyromegaly. Tracheostomy in place. Insertion site is clean. Patient is edentulous. Chest exam; diminished but clear breath sounds. S1-S2 audible, no murmurs. Regular rhythm. Abdomen exam; soft, G-tube in place. Scaphoid. No organomegaly. Bowel sounds audible. Extremity exam; no peripheral edema. Patient does have contractures involving all 4 extremities. [employer] exam; patient remains unresponsive. Results Result Diagram: 03/25/17 0600 03/25/17 0600 Results 24 hrs Laboratory Tests Test 03/25/17 06:00 White Blood Count 7.6 Red Blood Count 3.96 #L Hemoglobin 11.3 #L Hematocrit 34.8 #L Mean Corpuscular Volume 87.9 Mean Corpuscular Hemoglobin 28.5 L Mean Corpuscular Hemoglobin Concent 32.5 Red Cell Distribution Width 17.0 H Platelet Count 285 Mean Platelet Volume 12.7 H Neutrophils % 39.4 Lymphocytes % 30.9 Monocytes % 13.2 H Eosinophils % 15.7 H Basophils % 0.4 Nucleated Red Blood Cells % 0.5 H Neutrophils # (Manual) 3.0 Lymphocytes # 2.3 Monocytes # 1.0 H Eosinophils # 1.2 H Basophils # 0.0 Nucleated Red Blood Cells # 0.0 Sodium Level 141 Potassium Level 3.6 Chloride Level 102 Carbon Dioxide Level 26 Anion Gap 17 H Blood Urea Nitrogen 13 Creatinine 0.88 Glucose Level 107 # Calcium Level 9.5 Medications Medications Current Medications Ondansetron HCl (Zofran Inj) 4 mg Q6H PRN IV NAUSEA AND/OR VOMITING; Start at 23:30 Acetaminophen (Tylenol Tab) 650 mg Q6H PRN PO PAIN LEVEL 1-3 OR FEVER Last administered on 03/21/17 03:14; Admin Dose 650 MG; Start 03/20/17 at 23:30 Morphine Sulfate (morphine) 2 mg Q4H PRN IV PAIN LEVEL 7-10 Last administered on 03/23/17 15:29; Admin Dose 2 MG; Start 03/20/17 at 23:30 Famotidine (Pepcid Iv) 20 mg Q12 IV Last administered on 03/25/17 08:58; Admin Dose 20 MG; Start 03/21/17 at 09:00 Enoxaparin Sodium 30 mg 30 mg DAILY SC Last administered on 03/25/17 08:59; Admin Dose 30 MG; Start 03/21/17 at 09:00 Piperacillin Sod/ Tazobactam Sod 100 ml @ 200 mls/hr Q6 IVPB Last administered on 03/25/17 06:40; Admin Dose 200 MLS/HR; Start 03/21/17 at 06:00 Potassium Chloride/Dextrose/ Sod Cl (D5-1/2ns + KCl 20 Meq) 1,000 ml @ 70 mls/ hr [id number] IV Last administered on 03/24/17 23:51; Admin Dose 70 MLS/HR; Start 03/21/17 at 13:00 Collagenase 1 applic 1 applic PRN PRN TOP SOILNG; Start 03/22/17 at 16:15 Vancomycin HCl 250 ml @ 125 mls/hr Q24H IVPB Last administered on 03/24/17 10 :26; Admin Dose 125 MLS/HR; Start 03/23/17 at 10:00 Caspofungin/ Sodium Chloride (Cancidas/NS) 250 ml @ 250 mls/hr Q24H IVPB Last administered on 03/24/17 16:14; Admin Dose 250 MLS/HR; Start 03/24/17 at 16:00 Mineral Oil (Mineral Oil) 50 ml Q8 GTB Last administered on 03/25/17 06:40; Admin Dose 50 ML; Start 03/23/17 at 15:00 Amlodipine Besylate (Norvasc) 10 mg DAILY GTB Last administered on 03/25/17 08 :58; Admin Dose 10 MG; Start 03/24/17 at 09:00 Hydralazine HCl (Apresoline) 20 mg Q6H PRN IV FOR SBP>160 Last administered on 03/25/17 01:31; Admin Dose 20 MG; Start 03/23/17 at 18:30 Metoclopramide HCl (Reglan) 5 mg TID IV Last administered on 03/25/17 08:58; Admin Dose 5 MG; Start 03/24/17 at 21:00 Mineral Oil (Fleet Mineral Oil Enema) 133 ml BID [place] Last administered on 08:58; Admin Dose 133 ML; Start 03/24/17 at 21:00 SHAAN BUTT Mar 25, 2017 09:29
--- NOTE | 2017-03-25 10:07 | RADRPT ---
PROCEDURE: XR Chest 1 View. CLINICAL INDICATION: Shortness of breath. TECHNIQUE: AP view of the chest was obtained. COMPARISON: March 21, 2017 FINDINGS: The heart size is within normal limits. Calcified atherosclerosis is noted in the aorta. Tracheosto my tube is stable and appears in grossly appropriate location. The lungs are hypoinflated. Patchy in filtrates throughout the right lung are similar to prior exam, given differences in technique. Retr ocardiac opacity is stable. Osseous structures are intact. IMPRESSION: Calcified atherosclerosis in the aorta. Hypoinflated lungs. Stable patchy infiltrates throughout the right lung. Stable retrocardiac opacity that may reflect left lower lobe atelectasis or infiltrate combined with small pleural effusion. RPTAT: AA .Kervin Hanson MD, Date Time Electronically viewed and signed by .Kervin Hanson MD, MD on 03/25/2017 10:07 .P/
[2017-03-25] MEDS: VANCOMYCIN 1 GM in NS 250 ML IVPB SCH (10:25)
--- NOTE | 2017-03-25 13:36 | PN ---
DATE: 03/25/2017 SUBJECTIVE DATA: The patient was admitted with a history of vomiting. CT scan of the abdomen showed evidence of a small bowel obstruction. OBJECTIVE DATA: GENERAL: On examination, patient is intubated. He is lethargic. VITAL SIGNS: Pulse is 78, blood pressure is 115/68. CARDIOVASCULAR: Normal heart sounds RESPIRATORY: Normal breath sounds, except occasional rales in the left lung. LABORATORY AND DIAGNOSTIC DATA: The CAT scan of the abdomen shows evidence of a small bowel obstruction. CLINICAL IMPRESSION: Patient has evidence of a small bowel obstruction as noted in the CAT scan. Patient is seen by Dr. Gay for surgical consultation and apparently the plans are to do laxatives to the patient and currently, continue the intravenous fluids and surgery is not considered at this time. We will continue nasogastric suction and I will be happy to follow this patient with you. Dictated By: Sunil Pryor MD /kilo/petrona /Document#: [id number]
--- NOTE | 2017-03-25 14:09 | PN ---
Date/Time of Note Date/Time of Note DATE: 03/25/17 TIME: 14:06 Assessment/Plan VTE Prophylaxis VTE Prophylaxis Intervention: SCD's Lines/Catheters [facility] Peripheral IV Urinary Cath still in place: Yes Reason Cath still needed: urinary retention Assessment/Plan Chief Complaint/Hosp Course Patient is started on bowel regimen however no output from colostomy yet, continue IV fluids, NG tube to low wall suctioning. Assessment/Plan -Sepsis secondary to urinary tract infection an possible pneumonia. Continue broad-spectrum antibiotics. Dr. Almazan is following an infection disease consultation. -Intractable nausea and vomiting, rule out gastric outlet obstruction. Dr. Cha is following in gastroenterology consultation. - SBO, Dr. Gay is swallowing in general surgery consultation. -Colostomy. -Hyperkalemia secondary to dehydration, resolved. -Ventilator-dependent respiratory failure. Dr. Saenz is following in pulmonology consultation. -Subdural hematoma with chronic encephalopathy. -Chronic obstructive pulmonary disease. -Dysphagia with G-tube. Further recommendations based on clinical course. Plan of care discussed with Dr. Meeks. Problems: Exam/Review of Systems Vital Signs Vitals Vital Signs Date Time Temp Pulse Resp B/P Pulse Ox O2 Delivery O2 Flow Rate FiO2 03/25/17 13:18 75 20 99 30 03/25/17 11:00 146/95 03/25/17 10:00 Mechanical Ventilator 03/25/17 08:00 98.1 03/22/17 07:34 10.0 Intake and Output 03/24/17 03/24/17 03/25/17 15:00 23:00 07:00 Intake Total 1090 ml 805 ml 690 ml Output Total 360 ml 560 ml 370 ml Balance 730 ml 245 ml 320 ml Exam Constitutional: frail, non-verbal Head: normocephalic Neck: other (Tracheostomy), supple Respiratory: diminished breath sounds Cardiovascular: nl pulses Gastrointestinal: other (G-tube), soft, colostomy Extremities: normal pulses Skin: other (Multiple wounds) Results Result Diagram: 03/25/17 0600 03/25/17 0600 Results 24 hrs Laboratory Tests Test 03/25/17 06:00 White Blood Count 7.6 Red Blood Count 3.96 #L Hemoglobin 11.3 #L Hematocrit 34.8 #L Mean Corpuscular Volume 87.9 Mean Corpuscular Hemoglobin 28.5 L Mean Corpuscular Hemoglobin Concent 32.5 Red Cell Distribution Width 17.0 H Platelet Count 285 Mean Platelet Volume 12.7 H Neutrophils % 39.4 Lymphocytes % 30.9 Monocytes % 13.2 H Eosinophils % 15.7 H Basophils % 0.4 Nucleated Red Blood Cells % 0.5 H Neutrophils # (Manual) 3.0 Lymphocytes # 2.3 Monocytes # 1.0 H Eosinophils # 1.2 H Basophils # 0.0 Nucleated Red Blood Cells # 0.0 Sodium Level 141 Potassium Level 3.6 Chloride Level 102 Carbon Dioxide Level 26 Anion Gap 17 H Blood Urea Nitrogen 13 Creatinine 0.88 Glucose Level 107 # Calcium Level 9.5 Medications Medications Current Medications Ondansetron HCl (Zofran Inj) 4 mg Q6H PRN IV NAUSEA AND/OR VOMITING; Start at 23:30 Acetaminophen (Tylenol Tab) 650 mg Q6H PRN PO PAIN LEVEL 1-3 OR FEVER Last administered on 03/21/17 03:14; Admin Dose 650 MG; Start 03/20/17 at 23:30 Morphine Sulfate (morphine) 2 mg Q4H PRN IV PAIN LEVEL 7-10 Last administered on 03/23/17 15:29; Admin Dose 2 MG; Start 03/20/17 at 23:30 Famotidine (Pepcid Iv) 20 mg Q12 IV Last administered on 03/25/17 08:58; Admin Dose 20 MG; Start 03/21/17 at 09:00 Enoxaparin Sodium 30 mg 30 mg DAILY SC Last administered on 03/25/17 08:59; Admin Dose 30 MG; Start 03/21/17 at 09:00 Piperacillin Sod/ Tazobactam Sod 100 ml @ 200 mls/hr Q6 IVPB Last administered on 03/25/17 12:08; Admin Dose 200 MLS/HR; Start 03/21/17 at 06:00 Potassium Chloride/Dextrose/ Sod Cl (D5-1/2ns + KCl 20 Meq) 1,000 ml @ 70 mls/ hr [id number] IV Last administered on 03/24/17 23:51; Admin Dose 70 MLS/HR; Start 03/21/17 at 13:00 Collagenase 1 applic 1 applic PRN PRN TOP SOILNG; Start 03/22/17 at 16:15 Vancomycin HCl 250 ml @ 125 mls/hr Q24H IVPB Last administered on 03/25/17 10 :25; Admin Dose 125 MLS/HR; Start 03/23/17 at 10:00 Caspofungin/ Sodium Chloride (Cancidas/NS) 250 ml @ 250 mls/hr Q24H IVPB Last administered on 03/24/17 16:14; Admin Dose 250 MLS/HR; Start 03/24/17 at 16:00 Mineral Oil (Mineral Oil) 50 ml Q8 GTB Last administered on 03/25/17 06:40; Admin Dose 50 ML; Start 03/23/17 at 15:00 Amlodipine Besylate (Norvasc) 10 mg DAILY GTB Last administered on 03/25/17 08 :58; Admin Dose 10 MG; Start 03/24/17 at 09:00 Hydralazine HCl (Apresoline) 20 mg Q6H PRN IV FOR SBP>160 Last administered on 03/25/17 01:31; Admin Dose 20 MG; Start 03/23/17 at 18:30 Metoclopramide HCl (Reglan) 5 mg TID IV Last administered on 03/25/17 12:08; Admin Dose 5 MG; Start 03/24/17 at 21:00 Mineral Oil (Fleet Mineral Oil Enema) 133 ml BID [place] Last administered on 08:58; Admin Dose 133 ML; Start 03/24/17 at 21:00 Miscellaneous Information (*Rx Drug Level Order Reminder*) 1 ONCE ONCE XX ; Start 03/26/17 at 09:00; Stop 03/26/17 at 09:01 AMY MORAN Mar 25, 2017 14:09
--- NOTE | 2017-03-25 16:24 | PN ---
Date/Time of Note Date/Time of Note DATE: 03/25/17 TIME: 16:14 Assessment/Plan VTE Prophylaxis VTE Prophylaxis Intervention: LMWH Lines/Catheters [facility] ([facility] Peripheral IV Urinary Cath still in place: Yes Reason Cath still needed: pres ulcer contaminated by urine, other (indicate) Assessment/Plan Assessment/Plan In regard to small bowel obstruction, as I mentioned in my consultation note patient has extensive fecal impaction from cecum to the site of the colostomy and this to my opinion has caused small bowel obstruction. What I am trying to do is to mobilize some stool and after that to start to get more laxative. We will continue mineral oil through G-tube and clamped it for 5 hours and unclamp it for 3 hours. Also continue mineral Fleet Enema through the colostomy twice daily. We will increase Reglan to 10 mg IV every 8 hours. Subjective 24 Hr Interval Summary Free Text/Dictation No communication patient is nonverbal. No major events during the past 24 hours. No BM through colostomy. NG tube has drained 400 cc past 24 hours Exam/Review of Systems Vital Signs Vitals Vital Signs Date Time Temp Pulse Resp B/P Pulse Ox O2 Delivery O2 Flow Rate FiO2 03/25/17 15:49 60 20 99 30 03/25/17 11:00 146/95 03/25/17 10:00 Mechanical Ventilator 03/25/17 08:00 98.1 03/22/17 07:34 10.0 Intake and Output 03/24/17 03/24/17 03/25/17 15:00 23:00 07:00 Intake Total 1090 ml 805 ml 690 ml Output Total 360 ml 560 ml 370 ml Balance 730 ml 245 ml 320 ml Exam Patient on the ventilator. Nonverbal. No response to verbal or painful stimuli. Vital signs stable afebrile. Per recording there has not been any function from the colostomy. Abdomen is slightly distended softer than the previous day. Bowel sounds 2+/4+ NG tube drainage is a slightly greenish fluid. Results Result Diagram: 03/25/17 0600 03/25/17 0600 Results 24 hrs Laboratory Tests Test 03/25/17 06:00 White Blood Count 7.6 Red Blood Count 3.96 #L Hemoglobin 11.3 #L Hematocrit 34.8 #L Mean Corpuscular Volume 87.9 Mean Corpuscular Hemoglobin 28.5 L Mean Corpuscular Hemoglobin Concent 32.5 Red Cell Distribution Width 17.0 H Platelet Count 285 Mean Platelet Volume 12.7 H Neutrophils % 39.4 Lymphocytes % 30.9 Monocytes % 13.2 H Eosinophils % 15.7 H Basophils % 0.4 Nucleated Red Blood Cells % 0.5 H Neutrophils # (Manual) 3.0 Lymphocytes # 2.3 Monocytes # 1.0 H Eosinophils # 1.2 H Basophils # 0.0 Nucleated Red Blood Cells # 0.0 Sodium Level 141 Potassium Level 3.6 Chloride Level 102 Carbon Dioxide Level 26 Anion Gap 17 H Blood Urea Nitrogen 13 Creatinine 0.88 Glucose Level 107 # Calcium Level 9.5 Medications Medications Current Medications Ondansetron HCl (Zofran Inj) 4 mg Q6H PRN IV NAUSEA AND/OR VOMITING; Start at 23:30 Acetaminophen (Tylenol Tab) 650 mg Q6H PRN PO PAIN LEVEL 1-3 OR FEVER Last administered on 03/21/17 03:14; Admin Dose 650 MG; Start 03/20/17 at 23:30 Morphine Sulfate (morphine) 2 mg Q4H PRN IV PAIN LEVEL 7-10 Last administered on 03/23/17 15:29; Admin Dose 2 MG; Start 03/20/17 at 23:30 Famotidine (Pepcid Iv) 20 mg Q12 IV Last administered on 03/25/17 08:58; Admin Dose 20 MG; Start 03/21/17 at 09:00 Enoxaparin Sodium 30 mg 30 mg DAILY SC Last administered on 03/25/17 08:59; Admin Dose 30 MG; Start 03/21/17 at 09:00 Piperacillin Sod/ Tazobactam Sod 100 ml @ 200 mls/hr Q6 IVPB Last administered on 03/25/17 12:08; Admin Dose 200 MLS/HR; Start 03/21/17 at 06:00 Potassium Chloride/Dextrose/ Sod Cl (D5-1/2ns + KCl 20 Meq) 1,000 ml @ 70 mls/ hr [id number] IV Last administered on 03/24/17 23:51; Admin Dose 70 MLS/HR; Start 03/21/17 at 13:00 Collagenase 1 applic 1 applic PRN PRN TOP SOILNG; Start 03/22/17 at 16:15 Vancomycin HCl 250 ml @ 125 mls/hr Q24H IVPB Last administered on 03/25/17 10 :25; Admin Dose 125 MLS/HR; Start 03/23/17 at 10:00 Caspofungin/ Sodium Chloride (Cancidas/NS) 250 ml @ 250 mls/hr Q24H IVPB Last administered on 03/24/17 16:14; Admin Dose 250 MLS/HR; Start 03/24/17 at 16:00 Mineral Oil (Mineral Oil) 50 ml Q8 GTB Last administered on 03/25/17 14:15; Admin Dose 50 ML; Start 03/23/17 at 15:00 Amlodipine Besylate (Norvasc) 10 mg DAILY GTB Last administered on 03/25/17 08 :58; Admin Dose 10 MG; Start 03/24/17 at 09:00 Hydralazine HCl (Apresoline) 20 mg Q6H PRN IV FOR SBP>160 Last administered on 03/25/17 01:31; Admin Dose 20 MG; Start 03/23/17 at 18:30 Metoclopramide HCl (Reglan) 5 mg TID IV Last administered on 03/25/17 12:08; Admin Dose 5 MG; Start 03/24/17 at 21:00 Mineral Oil (Fleet Mineral Oil Enema) 133 ml BID [place] Last administered on 08:58; Admin Dose 133 ML; Start 03/24/17 at 21:00 Miscellaneous Information (*Rx Drug Level Order Reminder*) 1 ONCE ONCE XX ; Start 03/26/17 at 09:00; Stop 03/26/17 at 09:01 VANIA MAE MD Mar 25, 2017 16:24
[2017-03-25] MEDS: CASPOFUNGIN 50 MG in SOD CHLORIDE 0.9% 250 ML IVPB SCH (18:06)
[2017-03-25] MEDS: D5W-0.45 NACL + KCL 20 MEQ 1,000 ML IV SCH (18:06)
--- NOTE | 2017-03-25 21:32 | PN ---
DATE: 03/25/2017 SUBJECTIVE DATA: No events overnight. The patient is lying comfortably in bed. He is noncommunicative. No fevers. VITAL SIGNS: Temperature 98.1, pulse 61, respirations 20, blood pressure 146/95, saturation 100 on 30 FiO2. LABORATORY AND DIAGNOSTIC DATA: WBC 7.6, H and H 11.2 and 34.8, platelets 285, no shift, no bands. BUN 13, creatinine 0.88. Microbiology: Blood cultures remain negative. Urine culture on admission grew Noemí species. DIAGNOSTICS: Chest x-ray this morning revealed stable patchy infiltrates throughout the lung soria. INDWELLINGS: Trach, PEG, Chaudhari. Antimicrobials: Patient is on Cancidas, Zosyn, vancomycin. PHYSICAL EXAMINATION: GENERAL: Fragile, chronically ill-appearing elderly man, who is in no distress. HEENT: Head atraumatic, normocephalic. Sclerae anicteric. Buccal mucosa dry. NECK: Supple. Tracheostomy present. CHEST: Rise symmetrical. Breath sounds diminished at the bases. HEART: S1, S2. ABDOMEN: Soft, bowel sounds present. EXTREMITIES: Without cyanosis. ASSESSMENT: 1. Resolving sepsis. 2. Small bowel obstruction secondary to impacted stool in the right colon and transverse colon. 3. Healthcare associated pneumonia. 4. Urinary tract infection. 5. Chronic encephalopathy. 6. Multiple chronic wounds. PLAN: The patient remains stable. Surgical recommendations noted. We will continue him on current antimicrobials. Continue local wound care as per nursing staff. Follow pulmonary, surgical, and GI recommendations. Dictated By: Nissa Heredia NP /kilo/loree /Document#: [id number]
[2017-03-26] VITALS (22 sets, daily range): BP systolic 140–178; BP diastolic 69–89; PULSE 43–69; RESP 16–25
[2017-03-26] MEDS: MINERAL OIL 30ML CUP GTB SCH ×3 (06:00→21:32)
[2017-03-26] MEDS: PIPER-TAZO 3.375 GM IV (PMX) 100 ML IVPB SCH ×4 (06:33→18:43)
[2017-03-26] MEDS: MINERAL OIL 133 ML ENEMA PR SCH ×3 (06:34→21:32)
[2017-03-26 06:36] LABS: BASOPHILS % 0.3 % (0.0-2.0); EOSINOPHILS % 12.8 % (0.0-7.0); HEMATOCRIT 28.3 % (42.0-52.0); HEMOGLOBIN 9.4 g/dl (14.0-18.0); LYMPHOCYTES # 2.3 10^3/ul (0.8-2.9); LYMPHOCYTES % 28.9 % (15.0-51.0); MEAN CORPUSCULAR HEMOGLOBIN 29.1 pg (29.0-33.0); MEAN CORPUSCULAR HGB CONC 33.2 g/dl (32.0-37.0); MEAN CORPUSCULAR VOLUME 87.6 fl (82.0-101.0); MEAN PLATELET VOLUME 13.2 fl (7.4-10.4); MONOCYTES % 12.8 % (0.0-11.0); NEUTROPHILS % 44.7 % (39.0-77.0); NUCLEATED RED BLOOD CELLS% 0.3 /100WBC (0.0-0.0); POSITIVE DIFF @See below; RED BLOOD COUNT 3.23 10^6/ul (4.70-6.10); RED CELL DISTRIBUTION WIDTH 16.9 % (11.5-14.5); WHITE BLOOD COUNT 7.8 10^3/ul (4.8-10.8)
[2017-03-26 07:18] LABS: CALCIUM 9.1 mg/dl (8.4-10.2); CREATININE 0.81 mg/dl (0.61-1.24)
[2017-03-26 07:31] LABS: POTASSIUM 3.5 mmol/L (3.5-5.1)
[2017-03-26] MEDS: AMLODIPINE 10 MG TAB GTB SCH ×2 (07:55→09:34)
[2017-03-26 07:57] LABS: PLATELET COUNT 177 10^3/UL (140-415)
[2017-03-26] MEDS: D5W-0.45 NACL + KCL 20 MEQ 1,000 ML IV SCH ×2 (09:19→15:06)
[2017-03-26] MEDS: METOCLOPRAMIDE 10 MG INJ IV SCH ×3 (09:33→21:32)
[2017-03-26] MEDS: FAMOTIDINE 20 MG INJ IV SCH ×2 (09:33→21:32)
--- NOTE | 2017-03-26 09:35 | CONS ---
Date/Time of Note Date/Time of Note DATE: 03/26/17 TIME: 09:34 Assessment/Plan Assessment/Plan Chief Complaint/Hosp Course ID PROGRESS NOTE CURRENT ABX=> Day #6 Vanco IV + Zosyn + Cancidas 24H INTERVAL SUMMARY * Non-communicative on the Vent, cachectic, no fevers, WBC normalized * CXR: 03/25: Stable patchy infiltrates throughout the right lung. * MICRO 03/20: (+)Yeast (not C.Albicans) UTI; 03/20 BCx (-) PHYSICAL EXAMINATION: GENERAL: VSS, NAD HEENT: Unremarkable NECK: Supple => (+)Trach to vent CHEST: Rise symmetrical bilaterally, without dyspnea on observation CV: RRR ABDOMEN: Soft, peg EXTREMITIES: Warm, moves extremities ID ASSESSMENT: 71 yo M w/chronic encephalopathy, trach, peg admit with: 1. s/p sepsis => Resolved * 03/20 BCx (-), afebrile, VSS, WBC normal 2. Small bowel obstruction secondary to impacted stool in the right colon and transverse colon. 3. Healthcare associated pneumonia=> Resolving * CXR 03/25: Stable patchy infiltrates throughout the right lung. 4. Chronic respiratory failure ->(+)Trach 5. COPD: Predominant emphysema per CT 6. Urinary tract infection=> Resolving 7. Multiple chronic wounds=> STG II, DTI calf * 02/25/17 R-Calf wound cx: (+)MRSA/Corynebacterium (-) MRSA Nares INVASIVES: PIV, Trach, PEG, FC ABX ALLERGY: KNDA CURRENT ABX=>Day # 6 Vanco IV +Zosyn +Cancidas ID PLAN 1. Continue IV ABX over the weekend -- DC ABX on Tuesday and see how he tolerates . Problems: Consultation Date/Type/Reason Admit Date/Time Mar 20, 2017 at 23:37 Initial Consult Date 03/21/17 Type of Consultation: ID Exam/Review of Systems Vital Signs Vitals Vital Signs Date Time Temp Pulse Resp B/P Pulse Ox O2 Delivery O2 Flow Rate FiO2 03/26/17 08:23 60 03/26/17 07:47 98.4 16 159/89 98 03/26/17 05:05 30 03/26/17 04:00 Mechanical Ventilator Trach Collar 03/22/17 07:34 10.0 Intake and Output 03/25/17 03/25/17 03/26/17 15:00 23:00 07:00 Intake Total 895 ml 760 ml Output Total 430 ml 815 ml Balance 465 ml -55 ml Results Result Diagram: 03/26/17 0545 03/26/17 0545 Results 24 hrs Laboratory Tests Test 03/26/17 05:45 White Blood Count 7.8 Red Blood Count 3.23 L Hemoglobin 9.4 L Hematocrit 28.3 L Mean Corpuscular Volume 87.6 Mean Corpuscular Hemoglobin 29.1 Mean Corpuscular Hemoglobin Concent 33.2 Red Cell Distribution Width 16.9 H Platelet Count 177 # Mean Platelet Volume 13.2 H Neutrophils % 44.7 Lymphocytes % 28.9 Monocytes % 12.8 H Eosinophils % 12.8 H Basophils % 0.3 Nucleated Red Blood Cells % 0.3 H Neutrophils # (Manual) 3.5 Lymphocytes # 2.3 Monocytes # 1.0 H Eosinophils # 1.0 H Basophils # 0.0 Nucleated Red Blood Cells # 0.0 Sodium Level 140 Potassium Level 3.5 Chloride Level 105 Carbon Dioxide Level 24 Anion Gap 14 Blood Urea Nitrogen 9 Creatinine 0.81 Glucose Level 91 Calcium Level 9.1 Medications Medications Current Medications Ondansetron HCl (Zofran Inj) 4 mg Q6H PRN IV NAUSEA AND/OR VOMITING; Start at 23:30 Acetaminophen (Tylenol Tab) 650 mg Q6H PRN PO PAIN LEVEL 1-3 OR FEVER Last administered on 03/21/17 03:14; Admin Dose 650 MG; Start 03/20/17 at 23:30 Morphine Sulfate (morphine) 2 mg Q4H PRN IV PAIN LEVEL 7-10 Last administered on 03/23/17 15:29; Admin Dose 2 MG; Start 03/20/17 at 23:30 Famotidine (Pepcid Iv) 20 mg Q12 IV Last administered on 03/25/17 21:09; Admin Dose 20 MG; Start 03/21/17 at 09:00 Enoxaparin Sodium 30 mg 30 mg DAILY SC Last administered on 03/25/17 08:59; Admin Dose 30 MG; Start 03/21/17 at 09:00 Piperacillin Sod/ Tazobactam Sod 100 ml @ 200 mls/hr Q6 IVPB Last administered on 03/26/17 06:34; Admin Dose 200 MLS/HR; Start 03/21/17 at 06:00 Potassium Chloride/Dextrose/ Sod Cl (D5-1/2ns + KCl 20 Meq) 1,000 ml @ 70 mls/ hr [id number] IV Last administered on 03/25/17 18:06; Admin Dose 70 MLS/HR; Start 03/21/17 at 13:00 Collagenase 1 applic 1 applic PRN PRN TOP SOILNG; Start 03/22/17 at 16:15 Vancomycin HCl 250 ml @ 125 mls/hr Q24H IVPB Last administered on 03/25/17 10 :25; Admin Dose 125 MLS/HR; Start 03/23/17 at 10:00 Caspofungin/ Sodium Chloride (Cancidas/NS) 250 ml @ 250 mls/hr Q24H IVPB Last administered on 03/25/17 18:06; Admin Dose 250 MLS/HR; Start 03/24/17 at 16:00 Mineral Oil (Mineral Oil) 50 ml Q8 GTB Last administered on 03/25/17 21:09; Admin Dose 50 ML; Start 03/23/17 at 15:00 Amlodipine Besylate (Norvasc) 10 mg DAILY GTB Last administered on 03/25/17 08 :58; Admin Dose 10 MG; Start 03/24/17 at 09:00 Hydralazine HCl (Apresoline) 20 mg Q6H PRN IV FOR SBP>160 Last administered on 03/25/17 01:31; Admin Dose 20 MG; Start 03/23/17 at 18:30 Metoclopramide HCl (Reglan) 5 mg TID IV Last administered on 03/25/17 21:09; Admin Dose 5 MG; Start 03/24/17 at 21:00 Mineral Oil (Fleet Mineral Oil Enema) 133 ml BID [place] Last administered on 06:34; Admin Dose 133 ML; Start 03/24/17 at 21:00 KEITH MAK NP Mar 26, 2017 09:35
[2017-03-26] MEDS: ENOXAPARIN 30 MG/0.3 ML SYG SC SCH (09:40)
--- NOTE | 2017-03-26 13:40 | CONS ---
Date/Time of Note Date/Time of Note DATE: 03/26/17 TIME: 13:38 Assessment/Plan Assessment/Plan Additional Assessment/Plan slowly ressolving sbo pl per surgeon Consultation Date/Type/Reason Admit Date/Time Mar 20, 2017 at 23:37 Initial Consult Date 03/21/17 pt admitted with vomitting Type of Consultation: gi Reason for Consultation bowel obstruction 24 HR Interval Summary Free Text/Dictation pt seen by surgeon ng not draining much abd still mildly disdende Exam/Review of Systems Vital Signs Vitals Vital Signs Date Time Temp Pulse Resp B/P Pulse Ox O2 Delivery O2 Flow Rate FiO2 03/26/17 12:13 61 03/26/17 11:39 98.2 25 155/74 97 03/26/17 11:15 30 03/26/17 04:00 Mechanical Ventilator Trach Collar 03/22/17 07:34 10.0 Intake and Output 03/25/17 03/25/17 03/26/17 15:00 23:00 07:00 Intake Total 895 ml 760 ml 940 ml Output Total 430 ml 815 ml Balance 465 ml -55 ml 940 ml Results Result Diagram: 03/26/17 0545 03/26/17 0545 Results 24 hrs Laboratory Tests Test 03/26/17 05:45 03/26/17 09:22 White Blood Count 7.8 Red Blood Count 3.23 L Hemoglobin 9.4 L Hematocrit 28.3 L Mean Corpuscular Volume 87.6 Mean Corpuscular Hemoglobin 29.1 Mean Corpuscular Hemoglobin Concent 33.2 Red Cell Distribution Width 16.9 H Platelet Count 177 # Mean Platelet Volume 13.2 H Neutrophils % 44.7 Lymphocytes % 28.9 Monocytes % 12.8 H Eosinophils % 12.8 H Basophils % 0.3 Nucleated Red Blood Cells % 0.3 H Neutrophils # (Manual) 3.5 Lymphocytes # 2.3 Monocytes # 1.0 H Eosinophils # 1.0 H Basophils # 0.0 Nucleated Red Blood Cells # 0.0 Sodium Level 140 Potassium Level 3.5 Chloride Level 105 Carbon Dioxide Level 24 Anion Gap 14 Blood Urea Nitrogen 9 Creatinine 0.81 Glucose Level 91 Calcium Level 9.1 Vancomycin Level Trough 17.1 Medications Medications Current Medications Ondansetron HCl (Zofran Inj) 4 mg Q6H PRN IV NAUSEA AND/OR VOMITING; Start at 23:30 Acetaminophen (Tylenol Tab) 650 mg Q6H PRN PO PAIN LEVEL 1-3 OR FEVER Last administered on 03/21/17 03:14; Admin Dose 650 MG; Start 03/20/17 at 23:30 Morphine Sulfate (morphine) 2 mg Q4H PRN IV PAIN LEVEL 7-10 Last administered on 03/23/17 15:29; Admin Dose 2 MG; Start 03/20/17 at 23:30 Famotidine (Pepcid Iv) 20 mg Q12 IV Last administered on 03/26/17 09:33; Admin Dose 20 MG; Start 03/21/17 at 09:00 Enoxaparin Sodium 30 mg 30 mg DAILY SC Last administered on 03/26/17 09:40; Admin Dose 30 MG; Start 03/21/17 at 09:00 Piperacillin Sod/ Tazobactam Sod 100 ml @ 200 mls/hr Q6 IVPB Last administered on 03/26/17 13:09; Admin Dose 200 MLS/HR; Start 03/21/17 at 06:00 Potassium Chloride/Dextrose/ Sod Cl (D5-1/2ns + KCl 20 Meq) 1,000 ml @ 70 mls/ hr [id number] IV Last administered on 03/25/17 18:06; Admin Dose 70 MLS/HR; Start 03/21/17 at 13:00 Collagenase 1 applic 1 applic PRN PRN TOP SOILNG; Start 03/22/17 at 16:15 Caspofungin/ Sodium Chloride (Cancidas/NS) 250 ml @ 250 mls/hr Q24H IVPB Last administered on 03/25/17 18:06; Admin Dose 250 MLS/HR; Start 03/24/17 at 16:00 Mineral Oil (Mineral Oil) 50 ml Q8 GTB Last administered on 03/26/17 13:09; Admin Dose 50 ML; Start 03/23/17 at 15:00 Amlodipine Besylate (Norvasc) 10 mg DAILY GTB Last administered on 03/26/17 09 :34; Admin Dose 10 MG; Start 03/24/17 at 09:00 Hydralazine HCl (Apresoline) 20 mg Q6H PRN IV FOR SBP>160 Last administered on 03/25/17 01:31; Admin Dose 20 MG; Start 03/23/17 at 18:30 Metoclopramide HCl (Reglan) 5 mg TID IV Last administered on 03/26/17 13:09; Admin Dose 5 MG; Start 03/24/17 at 21:00 Mineral Oil 133 ml 133 ml BID NE Last administered on 03/26/17 06:34; Admin Dose 133 ML; Start 03/24/17 at 21:00 Vancomycin HCl/ Sodium Chloride (Vancocin/NS) 150 ml @ 75 mls/hr Q24H IVPB ; Start 03/26/17 at 12:30 KATELYN SILVERMAN MD Mar 26, 2017 13:40
--- NOTE | 2017-03-26 14:03 | PN ---
Date/Time of Note Date/Time of Note DATE: 03/26/17 TIME: 13:59 Assessment/Plan VTE Prophylaxis VTE Prophylaxis Intervention: other Lines/Catheters IV Catheter Type (from [facility]): Peripheral IV Urinary Cath still in place: Yes Reason Cath still needed: urinary retention Assessment/Plan Assessment/Plan -Sepsis secondary to urinary tract infection an possible pneumonia. Continue broad-spectrum antibiotics. Dr. Almazan is following an infection disease consultation. -Intractable nausea and vomiting, rule out gastric outlet obstruction. Dr. Pryor is following in gastroenterology consultation. - GT to suction- bile draining - SBO, Dr. Gay is swallowing in general surgery consultation. -Colostomy. -Hyperkalemia secondary to dehydration, resolved. -Ventilator-dependent respiratory failure. Dr. Saenz is following in pulmonology consultation. -Subdural hematoma with chronic encephalopathy. -Chronic obstructive pulmonary disease. -Dysphagia with G-tube. Further recommendations based on clinical course. Plan of care discussed with Dr. Meeks. Subjective 24 Hr Interval Summary Free Text/Dictation afebrile, seems comfortable, dw staff- no new events reported overnight. Constitutional: requiring IVF, requiring O2 Exam/Review of Systems Vital Signs Vitals Vital Signs Date Time Temp Pulse Resp B/P Pulse Ox O2 Delivery O2 Flow Rate FiO2 03/26/17 13:10 69 20 99 30 03/26/17 11:39 98.2 155/74 03/26/17 04:00 Mechanical Ventilator Trach Collar 03/22/17 07:34 10.0 Intake and Output 03/25/17 03/25/17 03/26/17 15:00 23:00 07:00 Intake Total 895 ml 760 ml 940 ml Output Total 430 ml 815 ml Balance 465 ml -55 ml 940 ml Exam Constitutional: non-verbal Cardiovascular: other Gastrointestinal: non-tender, other (gt to suction - draining bile), soft Extremities: normal pulses Neurological: unresponsive Results Result Diagram: 03/26/17 0545 03/26/17 0545 Results 24 hrs Laboratory Tests Test 03/26/17 05:45 03/26/17 09:22 White Blood Count 7.8 Red Blood Count 3.23 L Hemoglobin 9.4 L Hematocrit 28.3 L Mean Corpuscular Volume 87.6 Mean Corpuscular Hemoglobin 29.1 Mean Corpuscular Hemoglobin Concent 33.2 Red Cell Distribution Width 16.9 H Platelet Count 177 # Mean Platelet Volume 13.2 H Neutrophils % 44.7 Lymphocytes % 28.9 Monocytes % 12.8 H Eosinophils % 12.8 H Basophils % 0.3 Nucleated Red Blood Cells % 0.3 H Neutrophils # (Manual) 3.5 Lymphocytes # 2.3 Monocytes # 1.0 H Eosinophils # 1.0 H Basophils # 0.0 Nucleated Red Blood Cells # 0.0 Sodium Level 140 Potassium Level 3.5 Chloride Level 105 Carbon Dioxide Level 24 Anion Gap 14 Blood Urea Nitrogen 9 Creatinine 0.81 Glucose Level 91 Calcium Level 9.1 Vancomycin Level Trough 17.1 Medications Medications Current Medications Ondansetron HCl (Zofran Inj) 4 mg Q6H PRN IV NAUSEA AND/OR VOMITING; Start at 23:30 Acetaminophen (Tylenol Tab) 650 mg Q6H PRN PO PAIN LEVEL 1-3 OR FEVER Last administered on 03/21/17 03:14; Admin Dose 650 MG; Start 03/20/17 at 23:30 Morphine Sulfate (morphine) 2 mg Q4H PRN IV PAIN LEVEL 7-10 Last administered on 03/23/17 15:29; Admin Dose 2 MG; Start 03/20/17 at 23:30 Famotidine (Pepcid Iv) 20 mg Q12 IV Last administered on 03/26/17 09:33; Admin Dose 20 MG; Start 03/21/17 at 09:00 Enoxaparin Sodium 30 mg 30 mg DAILY SC Last administered on 03/26/17 09:40; Admin Dose 30 MG; Start 03/21/17 at 09:00 Piperacillin Sod/ Tazobactam Sod 100 ml @ 200 mls/hr Q6 IVPB Last administered on 03/26/17 13:09; Admin Dose 200 MLS/HR; Start 03/21/17 at 06:00 Potassium Chloride/Dextrose/ Sod Cl (D5-1/2ns + KCl 20 Meq) 1,000 ml @ 70 mls/ hr [id number] IV Last administered on 03/25/17 18:06; Admin Dose 70 MLS/HR; Start 03/21/17 at 13:00 Collagenase 1 applic 1 applic PRN PRN TOP SOILNG; Start 03/22/17 at 16:15 Caspofungin/ Sodium Chloride (Cancidas/NS) 250 ml @ 250 mls/hr Q24H IVPB Last administered on 03/25/17 18:06; Admin Dose 250 MLS/HR; Start 03/24/17 at 16:00 Mineral Oil (Mineral Oil) 50 ml Q8 GTB Last administered on 03/26/17 13:09; Admin Dose 50 ML; Start 03/23/17 at 15:00 Amlodipine Besylate (Norvasc) 10 mg DAILY GTB Last administered on 03/26/17 09 :34; Admin Dose 10 MG; Start 03/24/17 at 09:00 Hydralazine HCl (Apresoline) 20 mg Q6H PRN IV FOR SBP>160 Last administered on 03/25/17 01:31; Admin Dose 20 MG; Start 03/23/17 at 18:30 Metoclopramide HCl (Reglan) 5 mg TID IV Last administered on 03/26/17 13:09; Admin Dose 5 MG; Start 03/24/17 at 21:00 Mineral Oil 133 ml 133 ml BID SC Last administered on 03/26/17 06:34; Admin Dose 133 ML; Start 03/24/17 at 21:00 Vancomycin HCl/ Sodium Chloride (Vancocin/NS) 150 ml @ 75 mls/hr Q24H IVPB ; Start 03/26/17 at 12:30 MARIO ROWE Mar 26, 2017 14:03
[2017-03-26] MEDS: VANCOMYCIN 750 MG in SOD CHLORIDE 0.9% 150 ML IVPB SCH (15:15)
[2017-03-26] MEDS: CASPOFUNGIN 50 MG in SOD CHLORIDE 0.9% 250 ML IVPB SCH (17:41)
--- NOTE | 2017-03-26 18:17 | CONS ---
Date/Time of Note Date/Time of Note DATE: 03/26/17 TIME: 18:16 Consult Date/Type/Reason Admit Date/Time Mar 20, 2017 at 23:37 Initial Consult Date 03/21/17 Type of Consultation: Pulm Subjective On vent. No overnight events. Objective Vital Signs Date Time Temp Pulse Resp B/P Pulse Ox O2 Delivery O2 Flow Rate FiO2 03/26/17 17:05 50 20 100 30 03/26/17 15:20 98.7 159/84 03/26/17 04:00 Mechanical Ventilator Trach Collar 03/22/17 07:34 10.0 Intake and Output 03/25/17 03/25/17 03/26/17 15:00 23:00 07:00 Intake Total 895 ml 760 ml 940 ml Output Total 430 ml 815 ml Balance 465 ml -55 ml 940 ml Exam HEENT: Neck supple; no JVD; no LAD; trach CVS: RRR, S1 and S2 CHEST: Coarse BS ABD: Soft, NT, + BS EXT: No c/c/e Results/Medications Result Diagram: 03/26/17 0545 03/26/17 0545 Results 24 hrs Laboratory Tests Test 03/26/17 05:45 03/26/17 09:22 White Blood Count 7.8 Red Blood Count 3.23 L Hemoglobin 9.4 L Hematocrit 28.3 L Mean Corpuscular Volume 87.6 Mean Corpuscular Hemoglobin 29.1 Mean Corpuscular Hemoglobin Concent 33.2 Red Cell Distribution Width 16.9 H Platelet Count 177 # Mean Platelet Volume 13.2 H Neutrophils % 44.7 Lymphocytes % 28.9 Monocytes % 12.8 H Eosinophils % 12.8 H Basophils % 0.3 Nucleated Red Blood Cells % 0.3 H Neutrophils # (Manual) 3.5 Lymphocytes # 2.3 Monocytes # 1.0 H Eosinophils # 1.0 H Basophils # 0.0 Nucleated Red Blood Cells # 0.0 Sodium Level 140 Potassium Level 3.5 Chloride Level 105 Carbon Dioxide Level 24 Anion Gap 14 Blood Urea Nitrogen 9 Creatinine 0.81 Glucose Level 91 Calcium Level 9.1 Vancomycin Level Trough 17.1 Medications Current Medications Ondansetron HCl (Zofran Inj) 4 mg Q6H PRN IV NAUSEA AND/OR VOMITING; Start at 23:30 Acetaminophen (Tylenol Tab) 650 mg Q6H PRN PO PAIN LEVEL 1-3 OR FEVER Last administered on 03/21/17 03:14; Admin Dose 650 MG; Start 03/20/17 at 23:30 Morphine Sulfate (morphine) 2 mg Q4H PRN IV PAIN LEVEL 7-10 Last administered on 03/23/17 15:29; Admin Dose 2 MG; Start 03/20/17 at 23:30 Famotidine (Pepcid Iv) 20 mg Q12 IV Last administered on 03/26/17 09:33; Admin Dose 20 MG; Start 03/21/17 at 09:00 Enoxaparin Sodium 30 mg 30 mg DAILY SC Last administered on 03/26/17 09:40; Admin Dose 30 MG; Start 03/21/17 at 09:00 Piperacillin Sod/ Tazobactam Sod 100 ml @ 200 mls/hr Q6 IVPB Last administered on 03/26/17 13:09; Admin Dose 200 MLS/HR; Start 03/21/17 at 06:00 Potassium Chloride/Dextrose/ Sod Cl (D5-1/2ns + KCl 20 Meq) 1,000 ml @ 70 mls/ hr [id number] IV Last administered on 03/26/17 15:06; Admin Dose 70 MLS/HR; Start 03/21/17 at 13:00 Collagenase 1 applic 1 applic PRN PRN TOP SOILNG; Start 03/22/17 at 16:15 Caspofungin/ Sodium Chloride (Cancidas/NS) 250 ml @ 250 mls/hr Q24H IVPB Last administered on 03/26/17 17:41; Admin Dose 250 MLS/HR; Start 03/24/17 at 16:00 Mineral Oil (Mineral Oil) 50 ml Q8 GTB Last administered on 03/26/17 13:09; Admin Dose 50 ML; Start 03/23/17 at 15:00 Amlodipine Besylate (Norvasc) 10 mg DAILY GTB Last administered on 03/26/17 09 :34; Admin Dose 10 MG; Start 03/24/17 at 09:00 Hydralazine HCl (Apresoline) 20 mg Q6H PRN IV FOR SBP>160 Last administered on 03/25/17 01:31; Admin Dose 20 MG; Start 03/23/17 at 18:30 Metoclopramide HCl (Reglan) 5 mg TID IV Last administered on 03/26/17 13:09; Admin Dose 5 MG; Start 03/24/17 at 21:00 Mineral Oil 133 ml 133 ml BID LA Last administered on 03/26/17 06:34; Admin Dose 133 ML; Start 03/24/17 at 21:00 Vancomycin HCl/ Sodium Chloride (Vancocin/NS) 150 ml @ 75 mls/hr Q24H IVPB Last administered on 03/26/17 15:15; Admin Dose 75 MLS/HR; Start 03/26/17 at 12 :30 Assessment/Plan Additional Assessment/Plan IMP: 1. Sepsis secondary to urinary tract infection 2. SBO, Dr. Gay is swallowing in general surgery consultation. 3. VDRF 4. Encephalopathy RECS: 1. Vent support 2. Abx per ABAD STILES MD Mar 26, 2017 18:17
--- NOTE | 2017-03-26 19:46 | PN ---
DATE: 03/26/2017 SUBJECTIVE: Patient is unresponsive, no communication. Last night, apparently they transferred this patient from ICU to 5th floor. Per nurse, Liyah, today when I asked her about the bowel movement, she stated that the last night's shift nurse has reported that the patient had bowel movement, and colostomy bag was semi-full, but apparently there is no report or record of that in the computer. OBJECTIVE: GENERAL: Patient is on the ventilator through tracheostomy. Non- responsive, no communication, nonverbal. VITAL SIGNS: Temperature 98.2, heart rate 69, respiration 20, blood pressure 155/74, saturation 97 percent on 70 percent FiO2 on the ventilator. ABDOMEN: Slightly distended. There is no stool in the colostomy at this time. Bowel sounds 2 to 3+/4+. NG tube clamped following instillation of the mineral oil. They are trying to find him suction because there is no suction on the 5th floor in this patient's room to connect the NG tube to get one. LEGS: No calf tenderness. ASSESSMENT: Patient with fecal impaction all along the right colon and transverse colon up to the colostomy site, and that has caused actually a kind of a small-bowel obstruction. I am trying to mobilize the stool from the colon. PLAN: Continue with mineral oil per G tube and continue Fleet mineral oil enemas. Other medical problems to be addressed by the respective consultants and primary care physician. Dictated By: Esau Gay MD /kilo/kera /Document#: [id number]
[2017-03-27] VITALS (29 sets, daily range): BP systolic 124–177; BP diastolic 71–94; PULSE 40–65; RESP 16–25
[2017-03-27] MEDS: PIPER-TAZO 3.375 GM IV (PMX) 100 ML IVPB SCH ×5 (00:57→23:20)
[2017-03-27] MEDS: MINERAL OIL 30ML CUP GTB SCH ×3 (05:37→21:25)
[2017-03-27 07:05] LABS: BASOPHILS % 0.3 % (0.0-2.0); EOSINOPHILS # 0.9 10^3/ul (0.0-0.5); EOSINOPHILS % 14.1 % (0.0-7.0); HEMATOCRIT 27.6 % (42.0-52.0); HEMOGLOBIN 9.5 g/dl (14.0-18.0); LYMPHOCYTES # 2.3 10^3/ul (0.8-2.9); LYMPHOCYTES % 38.5 % (15.0-51.0); MEAN CORPUSCULAR HEMOGLOBIN 29.7 pg (29.0-33.0); MEAN CORPUSCULAR HGB CONC 34.4 g/dl (32.0-37.0); MEAN CORPUSCULAR VOLUME 86.3 fl (82.0-101.0); MEAN PLATELET VOLUME 12.2 fl (7.4-10.4); MONOCYTE # 0.9 10^3/ul (0.3-0.9); MONOCYTES % 14.3 % (0.0-11.0); NEUTROPHILS % 32.5 % (39.0-77.0); PLATELET COUNT 276 10^3/UL (140-415); RED CELL DISTRIBUTION WIDTH 16.5 % (11.5-14.5); WHITE BLOOD COUNT 6.1 10^3/ul (4.8-10.8)
[2017-03-27 07:39] LABS: ALBUMIN/GLOBULIN RATIO 0.71; BILIRUBIN,INDIRECT 0.1 mg/dl (0-1.1); BILIRUBIN,TOTAL 0.1 mg/dl (0.2-1.3); CREATININE 0.87 mg/dl (0.61-1.24); MAGNESIUM 1.9 mg/dl (1.7-2.5); TOTAL PROTEIN 7.2 g/dl (6.1-8.1)
[2017-03-27 07:46] LABS: POTASSIUM 2.7 mmol/L (3.5-5.1)
--- NOTE | 2017-03-27 07:47 | RADRPT ---
PROCEDURE: XR Abdomen. CLINICAL INDICATION: Abdominal pain, fecal impaction TECHNIQUE: Two views of the abdomen are available for review. COMPARISON: CT, 03/22/2017 FINDINGS: Moderate retained fecal material may indicate constipation. The left lower quadrant ostomy is noted . There is no gross evidence to indicate bowel obstruction. There are no abnormal calcifications ov erlying the urinary tracts. The osseous structures are remarkable for scoliosis and degenerative ent hesopathy of the spine. IMPRESSION: 1. Moderate retained fecal is noted, similar to the prior CT, possibly indicating constipation. 2. No gross radiographic evidence is seen to indicate bowel obstruction. RPTAT: PP .David Wiley MD, MD Date Time Electronically viewed and signed by .David Wiley MD, MD on 03/27/2017 07:46 .R/
[2017-03-27] MEDS: MINERAL OIL 133 ML ENEMA PR SCH (09:00)
[2017-03-27] MEDS: AMLODIPINE 10 MG TAB GTB SCH (09:05)
[2017-03-27] MEDS: FAMOTIDINE 20 MG INJ IV SCH ×2 (09:05→21:25)
[2017-03-27] MEDS: METOCLOPRAMIDE 10 MG INJ IV SCH ×4 (09:05→21:26)
[2017-03-27] MEDS: ENOXAPARIN 30 MG/0.3 ML SYG SC SCH (09:09)
[2017-03-27] MEDS: POTASSIUM CHLORIDE 250 ML IVPB SCH ×2 (09:30→13:30)
[2017-03-27 10:32] LABS: THYROID STIMULATING HORMONE 0.52 MIU/L (0.465-4.680)
[2017-03-27] MEDS: D5W-0.45 NACL + KCL 40 MEQ 1,000 ML IV SCH (11:00)
[2017-03-27] MEDS: hydrALAzine 20 MG INJ IV PRN (11:45)
[2017-03-27] MEDS: VANCOMYCIN 750 MG in SOD CHLORIDE 0.9% 150 ML IVPB SCH (13:02)
--- NOTE | 2017-03-27 13:02 | RADRPT ---
Echocardiogram Report Patient Name: TREVOR KINCAID Gender: Male Date: 1945 Study Date: 27-Mar-2017 Front Desk Manager: Karla Vazquez [facility] Location: [address] Ref. Physician: MAHOGANY HARGROVE Quality: Technically Difficult Study Procedures: Transthoracic echocardiogram with complete 2D, M-Mode, and doppler examination. Indications: Arrhythmia. 2D/M Mode Doppler Measurement Value Normal Ranges Measurement Value Normal Ranges LVIDd 2D 4.1 3.5 - 5.6 cm AV Peak Ike 0.9 m/sec LVIDs 2D 2.1 2.1 - 4.1 cm AV Peak PG 3.0 mmHg FS 2D 49.8 % LVOT Peak Ike 0.8 m/sec LVPWd 2D 1.1 0.6 - 1.1 cm LVOT Peak PG 2.0 mmHg IVSd 2D 1.1 0.6 - 1.1 cm MV E Peak Ike 0.5 m/sec IVS/LVPW 2D 1.0 MV A Peak Ike 0.6 m/sec AoR Diam 2D 2.5 2.0 - 3.7 cm MV E/A 0.8 LA/Ao 2D 1 0 - 1 MV Decel Time 278 msec EDV 2D 71.0 cm3 MV E/A 0.8 ESV 2D 9.0 cm3 LA Dimen 2D 2.6 2.3 - 4.0 cm Findings Left Ventricle: Normal left ventricular systolic function. Normal left ventricular cavity size. Mild concentric left ventricular hypertrophy. Ejection fraction is visually estimated at 65 %. Right Ventricle: Normal right ventricular size. Normal right ventricular systolic function. Left Atrium: The left atrium is normal in size. Right Atrium: The right atrium is normal in size. Mitral Valve: Mitral valve leaflets appear mildly thickened. Mild mitral annular calcification. Trace mitral regurgitation. Aortic Valve: No significant aortic stenosis or insufficiency. Aortic cusps appear mildly calcified. Tricuspid Valve: Normal appearance of the tricuspid valve. Unable to obtain RVSP due to minimal presence of tricuspid regurgitation. Pulmonic Valve: Pulmonic valve not well visualized. Pericardium: Normal pericardium with no significant pericardial effusion. Aorta: Normal aortic root. IVC: Inferior vena cava without respiratory collapse, however, patient on ventilator. Conclusions 1.Normal left ventricular systolic function. Normal left ventricular cavity size. Mild concentric left ventricular hypertrophy. Ejection fraction is visually estimated at 65 %. 2.Mitral valve leaflets appear mildly thickened. Mild mitral annular calcification. Trace mitral regurgitation. 3.No significant aortic stenosis or insufficiency. Aortic cusps appear mildly calcified. 4.Normal appearance of the tricuspid valve. Unable to obtain RVSP due to minimal presence of tricuspid regurgitation. Electronically Signed By: Mahogany Hargrove 27-Mar-2017 13:01:29 -0700 Patient Name: TREVOR KINCAID Study Date: 27-Mar-2017 [id number]
--- NOTE | 2017-03-27 13:19 | CONS ---
Date/Time of Note Date/Time of Note DATE: 03/27/17 TIME: 13:16 Assessment/Plan Assessment/Plan Chief Complaint/Hosp Course Assessment/Plan Chief Complaint/Hosp Course ID PROGRESS NOTE CURRENT ABX=> Day #6 Vanco IV + Zosyn + Cancidas 24H INTERVAL SUMMARY * No Acute Distress. No Fevers. PHYSICAL EXAMINATION: GENERAL: VSS, NAD HEENT: Unremarkable NECK: Supple => (+)Trach to vent CHEST: Rise symmetrical bilaterally, without dyspnea on observation CV: RRR ABDOMEN: Soft, peg EXTREMITIES: Warm, moves extremities ID ASSESSMENT: 71 yo M w/chronic encephalopathy, trach, peg admit with: 1. s/p sepsis => Resolved * 03/20 BCx (-), afebrile, VSS, WBC normal 2. Small bowel obstruction secondary to impacted stool in the right colon and transverse colon. 3. Healthcare associated pneumonia=> Resolving * CXR 03/25: Stable patchy infiltrates throughout the right lung. 4. Chronic respiratory failure ->(+)Trach 5. COPD: Predominant emphysema per CT 6. Urinary tract infection=> Resolving 7. Multiple chronic wounds=> STG II, DTI calf * 02/25/17 R-Calf wound cx: (+)MRSA/Corynebacterium (-) MRSA Nares INVASIVES: PIV, Trach, PEG, FC ABX ALLERGY: KNDA CURRENT ABX=>Day # 6 Vanco IV +Zosyn +Cancidas ID PLAN 1. Continue IV ABX over the weekend -- DC ABX on Tuesday 2. Monitor Labs. Problems: Consultation Date/Type/Reason Admit Date/Time Mar 20, 2017 at 23:37 Initial Consult Date 03/21/17 Type of Consultation: id Exam/Review of Systems Vital Signs Vitals Vital Signs Date Time Temp Pulse Resp B/P Pulse Ox O2 Delivery O2 Flow Rate FiO2 03/27/17 11:08 97.7 59 18 177/94 95 03/27/17 11:05 30 03/26/17 04:00 Mechanical Ventilator Trach Collar Intake and Output 03/26/17 03/26/17 03/27/17 15:00 23:00 07:00 Intake Total 150 ml 0 ml 100 ml Output Total 500 ml 1000 ml 1200 ml Balance -350 ml -1000 ml -1100 ml Results Result Diagram: 03/27/1762403/27/17 06 Results 24 hrs Laboratory Tests Test 03/27/17 06:25 White Blood Count 6.1 # Red Blood Count 3.20 L Hemoglobin 9.5 L Hematocrit 27.6 L Mean Corpuscular Volume 86.3 Mean Corpuscular Hemoglobin 29.7 Mean Corpuscular Hemoglobin Concent 34.4 Red Cell Distribution Width 16.5 H Platelet Count 276 # Mean Platelet Volume 12.2 H Neutrophils % 32.5 L Lymphocytes % 38.5 Monocytes % 14.3 H Eosinophils % 14.1 H Basophils % 0.3 Nucleated Red Blood Cells % 0.0 Neutrophils # (Manual) 2.0 Lymphocytes # 2.3 Monocytes # 0.9 Eosinophils # 0.9 H Basophils # 0.0 Nucleated Red Blood Cells # 0.0 Sodium Level 147 H Potassium Level 2.7 *L Chloride Level 108 Carbon Dioxide Level 24 Anion Gap 18 H Blood Urea Nitrogen 8 Creatinine 0.87 Glucose Level 84 Calcium Level 9.0 Magnesium Level 1.9 Total Bilirubin 0.1 L Direct Bilirubin 0.00 Indirect Bilirubin 0.1 Aspartate Amino Transf (AST/SGOT) 31 Alanine Aminotransferase (ALT/SGPT) 53 Alkaline Phosphatase 64 Total Protein 7.2 Albumin 3.0 L Globulin 4.20 H Albumin/Globulin Ratio 0.71 Thyroid Stimulating Hormone (TSH) 0.520 Free Thyroxine 1.88 Medications Medications Current Medications Ondansetron HCl (Zofran Inj) 4 mg Q6H PRN IV NAUSEA AND/OR VOMITING; Start at 23:30 Acetaminophen (Tylenol Tab) 650 mg Q6H PRN PO PAIN LEVEL 1-3 OR FEVER Last administered on 03/21/17 03:14; Admin Dose 650 MG; Start 03/20/17 at 23:30 Morphine Sulfate (morphine) 2 mg Q4H PRN IV PAIN LEVEL 7-10 Last administered on 03/23/17 15:29; Admin Dose 2 MG; Start 03/20/17 at 23:30 Famotidine (Pepcid Iv) 20 mg Q12 IV Last administered on 03/27/17 09:05; Admin Dose 20 MG; Start 03/21/17 at 09:00 Enoxaparin Sodium 30 mg 30 mg DAILY SC Last administered on 03/27/17 09:09; Admin Dose 30 MG; Start 03/21/17 at 09:00 Piperacillin Sod/ Tazobactam Sod (Zosyn 3.375gm/ 100 ml (Pmx)) 100 ml @ 200 mls /hr Q6 IVPB Last administered on 03/27/17 11:19; Admin Dose 200 MLS/HR; Start 03/21/17 at 06:00 Collagenase 1 applic 1 applic PRN PRN TOP SOILNG; Start 03/22/17 at 16:15 Caspofungin/ Sodium Chloride (Cancidas/NS) 250 ml @ 250 mls/hr Q24H IVPB Last administered on 03/26/17 17:41; Admin Dose 250 MLS/HR; Start 03/24/17 at 16:00 Mineral Oil (Mineral Oil) 50 ml Q8 GTB Last administered on 03/27/17 12:17; Admin Dose 50 ML; Start 03/23/17 at 15:00 Amlodipine Besylate (Norvasc) 10 mg DAILY GTB Last administered on 03/27/17 09 :05; Admin Dose 10 MG; Start 03/24/17 at 09:00 Hydralazine HCl (Apresoline) 20 mg Q6H PRN IV FOR SBP>160 Last administered on 03/27/17 11:45; Admin Dose 20 MG; Start 03/23/17 at 18:30 Metoclopramide HCl (Reglan) 5 mg TID IV Last administered on 03/27/17 12:17; Admin Dose 5 MG; Start 03/24/17 at 21:00 Mineral Oil 133 ml 133 ml BID ND Last administered on 03/27/17 09:00; Admin Dose 133 ML; Start 03/24/17 at 21:00 Vancomycin HCl 750 mg/Sodium Chloride 150 ml @ 75 mls/hr Q24H IVPB Last administered on 03/27/17 13:02; Admin Dose 75 MLS/HR; Start 03/26/17 at 12:30 Potassium Chloride/Dextrose/ Sod Cl 1,000 ml @ 70 mls/hr [id number] IV Last administered on 03/27/17 11:00; Admin Dose 70 MLS/HR; Start 03/27/17 at 11:00 Potassium Chloride (KCl 40 MEQ/250 ML NS) 250 ml @ 62.5 mls/hr Q4H IVPB Last administered on 03/27/17t 09:30; Admin Dose 62.5 MLS/HR; Start 03/27/17 at 09:30 ; Stop 03/27/17 at 17:29 HAMZAH CROSS NP Mar 27, 2017 13:19
--- NOTE | 2017-03-27 14:10 | CONS ---
Date/Time of Note Date/Time of Note DATE: 03/27/17 TIME: 14:05 Consult Date/Type/Reason Admit Date/Time Mar 20, 2017 at 23:37 Initial Consult Date 03/21/17 Type of Consultation: CARDIOLOGY Subjective Discussed with stability was reviewed. Patient remained nonverbal status with tracheostomy on the vent. Arrhythmia has improved. Heart RATE has improved. She remains nonverbal and is unable to provide any history to me. objective: General: s/p trach. thin man HEENT: NC/AT. pupils are equal. round. NECK: NO JVD. no stridor. s/p trach CV: RRR. systolic murmur; no gallop or rubs. PULM: no wheezing or rhonchi. GI: SOFT, NT, ND, no rebound or guarding Extremity: trace B/L LE edema. no clubbing. neuro: does not respond to or follow commands Psych: calm rectal: deferred : normal ECHO REVIEWED: 1. Normal left ventricular systolic function. Normal left ventricular cavity size. Mild concentric left ventricular hypertrophy. Ejection fraction is visually estimated at 65 %. 2. Mitral valve leaflets appear mildly thickened. Mild mitral annular calcification. Trace mitral regurgitation. 3. No significant aortic stenosis or insufficiency. Aortic cusps appear mildly calcified. 4. Normal appearance of the tricuspid valve. Unable to obtain RVSP due to minimal presence of tricuspid regurgitation. Objective Vital Signs Date Time Temp Pulse Resp B/P Pulse Ox O2 Delivery O2 Flow Rate FiO2 03/27/17 13:26 124/77 03/27/17 13:15 61 20 100 30 03/27/17 11:08 97.7 03/26/17 04:00 Mechanical Ventilator Trach Collar Intake and Output 03/26/17 03/26/17 03/27/17 15:00 23:00 07:00 Intake Total 150 ml 0 ml 100 ml Output Total 500 ml 1000 ml 1200 ml Balance -350 ml -1000 ml -1100 ml Results/Medications Result Diagram: 03/27/1725 03/27/17 0625 Results 24 hrs Laboratory Tests Test 03/27/17 06:25 White Blood Count 6.1 # Red Blood Count 3.20 L Hemoglobin 9.5 L Hematocrit 27.6 L Mean Corpuscular Volume 86.3 Mean Corpuscular Hemoglobin 29.7 Mean Corpuscular Hemoglobin Concent 34.4 Red Cell Distribution Width 16.5 H Platelet Count 276 # Mean Platelet Volume 12.2 H Neutrophils % 32.5 L Lymphocytes % 38.5 Monocytes % 14.3 H Eosinophils % 14.1 H Basophils % 0.3 Nucleated Red Blood Cells % 0.0 Neutrophils # (Manual) 2.0 Lymphocytes # 2.3 Monocytes # 0.9 Eosinophils # 0.9 H Basophils # 0.0 Nucleated Red Blood Cells # 0.0 Sodium Level 147 H Potassium Level 2.7 *L Chloride Level 108 Carbon Dioxide Level 24 Anion Gap 18 H Blood Urea Nitrogen 8 Creatinine 0.87 Glucose Level 84 Calcium Level 9.0 Magnesium Level 1.9 Total Bilirubin 0.1 L Direct Bilirubin 0.00 Indirect Bilirubin 0.1 Aspartate Amino Transf (AST/SGOT) 31 Alanine Aminotransferase (ALT/SGPT) 53 Alkaline Phosphatase 64 Total Protein 7.2 Albumin 3.0 L Globulin 4.20 H Albumin/Globulin Ratio 0.71 Thyroid Stimulating Hormone (TSH) 0.520 Free Thyroxine 1.88 Medications Current Medications Ondansetron HCl (Zofran Inj) 4 mg Q6H PRN IV NAUSEA AND/OR VOMITING; Start at 23:30 Acetaminophen (Tylenol Tab) 650 mg Q6H PRN PO PAIN LEVEL 1-3 OR FEVER Last administered on 03/21/17 03:14; Admin Dose 650 MG; Start 03/20/17 at 23:30 Morphine Sulfate (morphine) 2 mg Q4H PRN IV PAIN LEVEL 7-10 Last administered on 03/23/17 15:29; Admin Dose 2 MG; Start 03/20/17 at 23:30 Famotidine (Pepcid Iv) 20 mg Q12 IV Last administered on 03/27/17 09:05; Admin Dose 20 MG; Start 03/21/17 at 09:00 Enoxaparin Sodium 30 mg 30 mg DAILY SC Last administered on 03/27/17 09:09; Admin Dose 30 MG; Start 03/21/17 at 09:00 Piperacillin Sod/ Tazobactam Sod (Zosyn 3.375gm/ 100 ml (Pmx)) 100 ml @ 200 mls /hr Q6 IVPB Last administered on 03/27/17 11:19; Admin Dose 200 MLS/HR; Start 03/21/17 at 06:00 Collagenase 1 applic 1 applic PRN PRN TOP SOILNG; Start 03/22/17 at 16:15 Caspofungin/ Sodium Chloride (Cancidas/NS) 250 ml @ 250 mls/hr Q24H IVPB Last administered on 03/26/17 17:41; Admin Dose 250 MLS/HR; Start 03/24/17 at 16:00 Mineral Oil (Mineral Oil) 50 ml Q8 GTB Last administered on 03/27/17 12:17; Admin Dose 50 ML; Start 03/23/17 at 15:00 Amlodipine Besylate (Norvasc) 10 mg DAILY GTB Last administered on 03/27/17 09 :05; Admin Dose 10 MG; Start 03/24/17 at 09:00 Hydralazine HCl (Apresoline) 20 mg Q6H PRN IV FOR SBP>160 Last administered on 03/27/17 11:45; Admin Dose 20 MG; Start 03/23/17 at 18:30 Metoclopramide HCl (Reglan) 5 mg TID IV Last administered on 03/27/17 12:17; Admin Dose 5 MG; Start 03/24/17 at 21:00 Mineral Oil 133 ml 133 ml BID [place] Last administered on 03/27/17 09:00; Admin Dose 133 ML; Start 03/24/17 at 21:00 Vancomycin HCl 750 mg/Sodium Chloride 150 ml @ 75 mls/hr Q24H IVPB Last administered on 03/27/17 13:02; Admin Dose 75 MLS/HR; Start 03/26/17 at 12:30 Potassium Chloride/Dextrose/ Sod Cl 1,000 ml @ 70 mls/hr [id number] IV Last administered on 03/27/17 11:00; Admin Dose 70 MLS/HR; Start 03/27/17 at 11:00 Potassium Chloride (KCl 40 MEQ/250 ML NS) 250 ml @ 62.5 mls/hr Q4H IVPB Last administered on 03/27/17 09:30; Admin Dose 62.5 MLS/HR; Start 03/27/17 at 09:30 ; Stop 03/27/17 at 17:29 Assessment/Plan Chief Complaint/Hosp Course 1. Arrhythmia: improved now 2. hypoxemic respiratory failure: Status with tracheostomy vent dependent 3. History of hypertension 4. anemia. 5. encephalopathy 6. hypo K, 7. SBO Recommendations: correct lytes including K and Mg vent support and trach care as per PULM tele monitoring for now. Thank you Mahogany morales MD FAC Problems: MAHOGANY MORALES MD Mar 27, 2017 14:10
[2017-03-27] MEDS ORDERED: MAGNESIUM SULFATE 2 GM/50 ML 50 ML IVPB ONE (14:30)
--- NOTE | 2017-03-27 15:29 | PN ---
Date/Time of Note Date/Time of Note DATE: 03/27/17 TIME: 15:15 Assessment/Plan VTE Prophylaxis VTE Prophylaxis Intervention: LMWH Lines/Catheters IV Catheter Type (from [facility]): Peripheral IV Urinary Cath still in place: Yes Reason Cath still needed: urinary retention, pres ulcer contaminated by urine, other (indicate) Assessment/Plan Assessment/Plan Patient was admitted because of vomiting. CT scan was read as a small bowel obstruction. My opinion the reason of the small bowel dictation obstruction is due to correction of the fecal material in the whole length of the ascending colon and transverse colon to the point where there is a transverse loop colostomy. I have tried to use mineral oil through G-tube and by enemas in the past few days to lubricate the hard stool, considering that the NG tube drainage has decreased to only 200 cc per 24 hours, I think it is probably safe to start patient on GoLYTELY about thousand cc and I am going to do it tomorrow hoping that it is going to stimulate bowel movement as he could do during last admission Subjective 24 Hr Interval Summary Free Text/Dictation Patient is noncommunicative therefore no new complaint. New events documented per nurses. Exam/Review of Systems Vital Signs Vitals Vital Signs Date Time Temp Pulse Resp B/P Pulse Ox O2 Delivery O2 Flow Rate FiO2 03/27/17 13:26 124/77 03/27/17 13:15 61 20 100 30 03/27/17 11:08 97.7 03/26/17 04:00 Mechanical Ventilator Trach Collar Intake and Output 03/26/17 03/26/17 03/27/17 15:00 23:00 07:00 Intake Total 150 ml 0 ml 100 ml Output Total 500 ml 1000 ml 1200 ml Balance -350 ml -1000 ml -1100 ml Exam Vital sign is stable. Patient continues to be on ventilator. Colostomy tube has drained 200 cc of greenish liquid in the past 24 hours. Continues to receive mineral oil per G-tube. No bowel movement has been recorded by the nurses chart. Patient unresponsive, heart regular movement is slightly distended but is soft bowel sounds 2+/4+, there is a slight amount of greenish soft stool in the bag KUB taken yesterday shows evidence of impacted stool in the colon but no sign of obstruction. Results Result Diagram: 03/27/17 0625 03/27/1725 Results 24 hrs Laboratory Tests Test 03/27/17 06:25 White Blood Count 6.1 # Red Blood Count 3.20 L Hemoglobin 9.5 L Hematocrit 27.6 L Mean Corpuscular Volume 86.3 Mean Corpuscular Hemoglobin 29.7 Mean Corpuscular Hemoglobin Concent 34.4 Red Cell Distribution Width 16.5 H Platelet Count 276 # Mean Platelet Volume 12.2 H Neutrophils % 32.5 L Lymphocytes % 38.5 Monocytes % 14.3 H Eosinophils % 14.1 H Basophils % 0.3 Nucleated Red Blood Cells % 0.0 Neutrophils # (Manual) 2.0 Lymphocytes # 2.3 Monocytes # 0.9 Eosinophils # 0.9 H Basophils # 0.0 Nucleated Red Blood Cells # 0.0 Sodium Level 147 H Potassium Level 2.7 *L Chloride Level 108 Carbon Dioxide Level 24 Anion Gap 18 H Blood Urea Nitrogen 8 Creatinine 0.87 Glucose Level 84 Calcium Level 9.0 Magnesium Level 1.9 Total Bilirubin 0.1 L Direct Bilirubin 0.00 Indirect Bilirubin 0.1 Aspartate Amino Transf (AST/SGOT) 31 Alanine Aminotransferase (ALT/SGPT) 53 Alkaline Phosphatase 64 Total Protein 7.2 Albumin 3.0 L Globulin 4.20 H Albumin/Globulin Ratio 0.71 Thyroid Stimulating Hormone (TSH) 0.520 Free Thyroxine 1.88 Medications Medications Current Medications Ondansetron HCl (Zofran Inj) 4 mg Q6H PRN IV NAUSEA AND/OR VOMITING; Start at 23:30 Acetaminophen (Tylenol Tab) 650 mg Q6H PRN PO PAIN LEVEL 1-3 OR FEVER Last administered on 03/21/17 03:14; Admin Dose 650 MG; Start 03/20/17 at 23:30 Morphine Sulfate (morphine) 2 mg Q4H PRN IV PAIN LEVEL 7-10 Last administered on 03/23/17 15:29; Admin Dose 2 MG; Start 03/20/17 at 23:30 Famotidine (Pepcid Iv) 20 mg Q12 IV Last administered on 03/27/17 09:05; Admin Dose 20 MG; Start 03/21/17 at 09:00 Enoxaparin Sodium 30 mg 30 mg DAILY SC Last administered on 03/27/17 09:09; Admin Dose 30 MG; Start 03/21/17 at 09:00 Piperacillin Sod/ Tazobactam Sod (Zosyn 3.375gm/ 100 ml (Pmx)) 100 ml @ 200 mls /hr Q6 IVPB Last administered on 03/27/17 11:19; Admin Dose 200 MLS/HR; Start 03/21/17 at 06:00 Collagenase 1 applic 1 applic PRN PRN TOP SOILNG; Start 03/22/17 at 16:15 Caspofungin/ Sodium Chloride (Cancidas/NS) 250 ml @ 250 mls/hr Q24H IVPB Last administered on 03/26/17 17:41; Admin Dose 250 MLS/HR; Start 03/24/17 at 16:00 Mineral Oil (Mineral Oil) 50 ml Q8 GTB Last administered on 03/27/17 12:17; Admin Dose 50 ML; Start 03/23/17 at 15:00 Amlodipine Besylate (Norvasc) 10 mg DAILY GTB Last administered on 03/27/17 09 :05; Admin Dose 10 MG; Start 03/24/17 at 09:00 Hydralazine HCl (Apresoline) 20 mg Q6H PRN IV FOR SBP>160 Last administered on 03/27/17 11:45; Admin Dose 20 MG; Start 03/23/17 at 18:30 Metoclopramide HCl (Reglan) 5 mg TID IV Last administered on 03/27/17 12:17; Admin Dose 5 MG; Start 03/24/17 at 21:00 Mineral Oil 133 ml 133 ml BID [place] Last administered on 03/27/17 09:00; Admin Dose 133 ML; Start 03/24/17 at 21:00 Vancomycin HCl 750 mg/Sodium Chloride 150 ml @ 75 mls/hr Q24H IVPB Last administered on 03/27/17 13:02; Admin Dose 75 MLS/HR; Start 03/26/17 at 12:30 Potassium Chloride/Dextrose/ Sod Cl 1,000 ml @ 70 mls/hr [id number] IV Last administered on 03/27/17 11:00; Admin Dose 70 MLS/HR; Start 03/27/17 at 11:00 Potassium Chloride 250 ml @ 62.5 mls/hr Q4H IVPB Last administered on 09:30; Admin Dose 62.5 MLS/HR; Start 03/27/17 at 09:30; Stop 03/27/17 at 17 :29 Magnesium Sulfate (Magnesium Sulfate 2 Gm/50 ml) 50 ml @ 25 mls/hr ONCE ONCE IVPB ; Start 03/27/17 at 14:30; Stop 03/27/17 at 16:29 VANIA MAE MD Mar 27, 2017 15:28
[2017-03-27] MEDS: CASPOFUNGIN 50 MG in SOD CHLORIDE 0.9% 250 ML IVPB SCH (16:23)
--- NOTE | 2017-03-27 19:32 | CONS ---
Date/Time of Note Date/Time of Note DATE: 03/27/17 TIME: 19:31 Consult Date/Type/Reason Admit Date/Time Mar 20, 2017 at 23:37 Initial Consult Date 03/21/17 Type of Consultation: Pulm Subjective On vent. No events. Objective Vital Signs Date Time Temp Pulse Resp B/P Pulse Ox O2 Delivery O2 Flow Rate FiO2 03/27/17 17:05 52 20 100 30 03/27/17 15:36 97.7 131/79 03/26/17 04:00 Mechanical Ventilator Trach Collar Intake and Output 03/26/17 03/26/17 03/27/17 15:00 23:00 07:00 Intake Total 150 ml 0 ml 100 ml Output Total 500 ml 1000 ml 1200 ml Balance -350 ml -1000 ml -1100 ml Exam HEENT: Neck supple; no JVD; no LAD; trach CVS: RRR, S1 and S2 CHEST: Coarse BS ABD: Soft, NT, + BS EXT: No c/c/e Results/Medications Result Diagram: 03/27/1725 03/27/17 0625 Results 24 hrs Laboratory Tests Test 03/27/17 06:25 White Blood Count 6.1 # Red Blood Count 3.20 L Hemoglobin 9.5 L Hematocrit 27.6 L Mean Corpuscular Volume 86.3 Mean Corpuscular Hemoglobin 29.7 Mean Corpuscular Hemoglobin Concent 34.4 Red Cell Distribution Width 16.5 H Platelet Count 276 # Mean Platelet Volume 12.2 H Neutrophils % 32.5 L Lymphocytes % 38.5 Monocytes % 14.3 H Eosinophils % 14.1 H Basophils % 0.3 Nucleated Red Blood Cells % 0.0 Neutrophils # (Manual) 2.0 Lymphocytes # 2.3 Monocytes # 0.9 Eosinophils # 0.9 H Basophils # 0.0 Nucleated Red Blood Cells # 0.0 Sodium Level 147 H Potassium Level 2.7 *L Chloride Level 108 Carbon Dioxide Level 24 Anion Gap 18 H Blood Urea Nitrogen 8 Creatinine 0.87 Glucose Level 84 Calcium Level 9.0 Magnesium Level 1.9 Total Bilirubin 0.1 L Direct Bilirubin 0.00 Indirect Bilirubin 0.1 Aspartate Amino Transf (AST/SGOT) 31 Alanine Aminotransferase (ALT/SGPT) 53 Alkaline Phosphatase 64 Total Protein 7.2 Albumin 3.0 L Globulin 4.20 H Albumin/Globulin Ratio 0.71 Thyroid Stimulating Hormone (TSH) 0.520 Free Thyroxine 1.88 Medications Current Medications Ondansetron HCl (Zofran Inj) 4 mg Q6H PRN IV NAUSEA AND/OR VOMITING; Start at 23:30 Acetaminophen (Tylenol Tab) 650 mg Q6H PRN PO PAIN LEVEL 1-3 OR FEVER Last administered on 03/21/17 03:14; Admin Dose 650 MG; Start 03/20/17 at 23:30 Morphine Sulfate (morphine) 2 mg Q4H PRN IV PAIN LEVEL 7-10 Last administered on 03/23/17 15:29; Admin Dose 2 MG; Start 03/20/17 at 23:30 Famotidine (Pepcid Iv) 20 mg Q12 IV Last administered on 03/27/17 09:05; Admin Dose 20 MG; Start 03/21/17 at 09:00 Enoxaparin Sodium 30 mg 30 mg DAILY SC Last administered on 03/27/17 09:09; Admin Dose 30 MG; Start 03/21/17 at 09:00 Piperacillin Sod/ Tazobactam Sod (Zosyn 3.375gm/ 100 ml (Pmx)) 100 ml @ 200 mls /hr Q6 IVPB Last administered on 03/27/17 18:46; Admin Dose 200 MLS/HR; Start 03/21/17 at 06:00 Collagenase 1 applic 1 applic PRN PRN TOP SOILNG; Start 03/22/17 at 16:15 Caspofungin/ Sodium Chloride (Cancidas/NS) 250 ml @ 250 mls/hr Q24H IVPB Last administered on 03/27/17 16:23; Admin Dose 250 MLS/HR; Start 03/24/17 at 16:00 Mineral Oil (Mineral Oil) 50 ml Q8 GTB Last administered on 03/27/17 12:17; Admin Dose 50 ML; Start 03/23/17 at 15:00 Amlodipine Besylate (Norvasc) 10 mg DAILY GTB Last administered on 03/27/17 09 :05; Admin Dose 10 MG; Start 03/24/17 at 09:00 Hydralazine HCl (Apresoline) 20 mg Q6H PRN IV FOR SBP>160 Last administered on 03/27/17 11:45; Admin Dose 20 MG; Start 03/23/17 at 18:30 Mineral Oil 133 ml 133 ml BID [place] Last administered on 03/27/17 09:00; Admin Dose 133 ML; Start 03/24/17 at 21:00 Vancomycin HCl 750 mg/Sodium Chloride 150 ml @ 75 mls/hr Q24H IVPB Last administered on 03/27/17 13:02; Admin Dose 75 MLS/HR; Start 03/26/17 at 12:30 Potassium Chloride/Dextrose/ Sod Cl (D5-1/2ns + KCl 40 Meq) 1,000 ml @ 70 mls/ hr [id number] IV Last administered on 03/27/17 11:00; Admin Dose 70 MLS/HR; Start 03/27/17 at 11:00 Metoclopramide HCl (Reglan) 10 mg Q8 IV ; Start 03/27/17 at 15:30 Polyethylene Glycol/ Electrolytes 1500 ml 1,500 ml ONCE ONCE GTB ; Start at 21:00; Stop 03/27/17 at 21:01 Potassium Chloride (KCl 40 MEQ/250 ML NS) 250 ml @ 62.5 mls/hr NOW IVPB ; Start 03/27/17 at 20:00; Stop 03/27/17 at 23:59 Assessment/Plan Additional Assessment/Plan IMP: 1. Sepsis secondary to urinary tract infection 2. SBO, Dr. Gay is swallowing in general surgery consultation. 3. VDRF 4. Encephalopathy 5. HypoK+ RECS: 1. Vent support 2. Abx per ID 3. Replete K+ ABAD CHAVEZ MD Mar 27, 2017 19:32
[2017-03-27] MEDS ORDERED: POTASSIUM CHLORIDE 250 ML IVPB SCH (20:00)
--- NOTE | 2017-03-27 20:19 | PN ---
Date/Time of Note Date/Time of Note DATE: 03/27/17 TIME: 20:16 Assessment/Plan VTE Prophylaxis VTE Prophylaxis Intervention: other Lines/Catheters IV Catheter Type (from Nrs): Peripheral IV Urinary Cath still in place: Yes Reason Cath still needed: urinary retention Assessment/Plan Assessment/Plan - Hypokalemia- replet k, am BMP - Hypomagnesium- replated, am mag level -Sepsis secondary to urinary tract infection an possible pneumonia. Continue broad-spectrum antibiotics. Dr. Almazan is following an infection disease consultation. -Intractable nausea and vomiting, rule out gastric outlet obstruction. Dr. Pryor is following in gastroenterology consultation. - GT to suction- bile draining - SBO, Dr. Gay is swallowing in general surgery consultation. -Colostomy. -Hyperkalemia secondary to dehydration, resolved. -Ventilator-dependent respiratory failure. Dr. Saenz is following in pulmonology consultation. -Subdural hematoma with chronic encephalopathy. -Chronic obstructive pulmonary disease. -Dysphagia with G-tube. Further recommendations based on clinical course. Plan of care discussed with Dr. Meeks. Subjective 24 Hr Interval Summary Subjective hx not possible: pt non-verbal Constitutional: requiring IVF, requiring O2 Exam/Review of Systems Vital Signs Vitals Vital Signs Date Time Temp Pulse Resp B/P Pulse Ox O2 Delivery O2 Flow Rate FiO2 03/27/17 19:51 98.9 67 23 132/71 98 03/27/17 17:05 30 03/26/17 04:00 Mechanical Ventilator Trach Collar Intake and Output 03/26/17 03/26/17 03/27/17 14:59 22:59 06:59 Intake Total 250 ml 0 ml 100 ml Output Total 500 ml 1000 ml 1200 ml Balance -250 ml -1000 ml -1100 ml Exam Constitutional: non-verbal Psych: nl mood/affect Respiratory: diminished breath sounds Cardiovascular: nl pulses, regular rate and rhythm Gastrointestinal: other, soft Musculoskeletal: muscle weakness Extremities: normal pulses Neurological: unresponsive Skin: other Results Result Diagram: 03/27/1725 03/27/17 0625 Results 24 hrs Laboratory Tests Test 03/27/17 06:25 White Blood Count 6.1 # Red Blood Count 3.20 L Hemoglobin 9.5 L Hematocrit 27.6 L Mean Corpuscular Volume 86.3 Mean Corpuscular Hemoglobin 29.7 Mean Corpuscular Hemoglobin Concent 34.4 Red Cell Distribution Width 16.5 H Platelet Count 276 # Mean Platelet Volume 12.2 H Neutrophils % 32.5 L Lymphocytes % 38.5 Monocytes % 14.3 H Eosinophils % 14.1 H Basophils % 0.3 Nucleated Red Blood Cells % 0.0 Neutrophils # (Manual) 2.0 Lymphocytes # 2.3 Monocytes # 0.9 Eosinophils # 0.9 H Basophils # 0.0 Nucleated Red Blood Cells # 0.0 Sodium Level 147 H Potassium Level 2.7 *L Chloride Level 108 Carbon Dioxide Level 24 Anion Gap 18 H Blood Urea Nitrogen 8 Creatinine 0.87 Glucose Level 84 Calcium Level 9.0 Magnesium Level 1.9 Total Bilirubin 0.1 L Direct Bilirubin 0.00 Indirect Bilirubin 0.1 Aspartate Amino Transf (AST/SGOT) 31 Alanine Aminotransferase (ALT/SGPT) 53 Alkaline Phosphatase 64 Total Protein 7.2 Albumin 3.0 L Globulin 4.20 H Albumin/Globulin Ratio 0.71 Thyroid Stimulating Hormone (TSH) 0.520 Free Thyroxine 1.88 Medications Medications Current Medications Ondansetron HCl (Zofran Inj) 4 mg Q6H PRN IV NAUSEA AND/OR VOMITING; Start at 23:30 Acetaminophen (Tylenol Tab) 650 mg Q6H PRN PO PAIN LEVEL 1-3 OR FEVER Last administered on 03/21/17 03:14; Admin Dose 650 MG; Start 03/20/17 at 23:30 Morphine Sulfate (morphine) 2 mg Q4H PRN IV PAIN LEVEL 7-10 Last administered on 03/23/17 15:29; Admin Dose 2 MG; Start 03/20/17 at 23:30 Famotidine (Pepcid Iv) 20 mg Q12 IV Last administered on 03/27/17 09:05; Admin Dose 20 MG; Start 03/21/17 at 09:00 Enoxaparin Sodium 30 mg 30 mg DAILY SC Last administered on 03/27/17 09:09; Admin Dose 30 MG; Start 03/21/17 at 09:00 Piperacillin Sod/ Tazobactam Sod (Zosyn 3.375gm/ 100 ml (Pmx)) 100 ml @ 200 mls /hr Q6 IVPB Last administered on 03/27/17 18:46; Admin Dose 200 MLS/HR; Start 03/21/17 at 06:00 Collagenase 1 applic 1 applic PRN PRN TOP SOILNG; Start 03/22/17 at 16:15 Caspofungin/ Sodium Chloride (Cancidas/NS) 250 ml @ 250 mls/hr Q24H IVPB Last administered on 03/27/17 16:23; Admin Dose 250 MLS/HR; Start 03/24/17 at 16:00 Mineral Oil (Mineral Oil) 50 ml Q8 GTB Last administered on 03/27/17 12:17; Admin Dose 50 ML; Start 03/23/17 at 15:00 Amlodipine Besylate (Norvasc) 10 mg DAILY GTB Last administered on 03/27/17 09 :05; Admin Dose 10 MG; Start 03/24/17 at 09:00 Hydralazine HCl (Apresoline) 20 mg Q6H PRN IV FOR SBP>160 Last administered on 03/27/17 11:45; Admin Dose 20 MG; Start 03/23/17 at 18:30 Mineral Oil 133 ml 133 ml BID [place] Last administered on 03/27/17 09:00; Admin Dose 133 ML; Start 03/24/17 at 21:00 Vancomycin HCl 750 mg/Sodium Chloride 150 ml @ 75 mls/hr Q24H IVPB Last administered on 03/27/17 13:02; Admin Dose 75 MLS/HR; Start 03/26/17 at 12:30 Potassium Chloride/Dextrose/ Sod Cl (D5-1/2ns + KCl 40 Meq) 1,000 ml @ 70 mls/ hr [id number] IV Last administered on 03/27/17 11:00; Admin Dose 70 MLS/HR; Start 03/27/17 at 11:00 Metoclopramide HCl (Reglan) 10 mg Q8 IV ; Start 03/27/17 at 15:30 Polyethylene Glycol/ Electrolytes 1500 ml 1,500 ml ONCE ONCE GTB ; Start at 21:00; Stop 03/27/17 at 21:01 Potassium Chloride (KCl 40 MEQ/250 ML NS) 250 ml @ 62.5 mls/hr NOW IVPB ; Start 03/27/17 at 20:00; Stop 03/27/17 at 23:59 MARIO ROWE Mar 27, 2017 20:19
[2017-03-27] MEDS ORDERED: PEG/ELECTROLYTES 4L BTL GTB ONE (21:00)
[2017-03-28] VITALS (24 sets, daily range): BP systolic 144–165; BP diastolic 61–90; PULSE 30–54; RESP 18–22
[2017-03-28] MEDS: D5W-0.45 NACL + KCL 40 MEQ 1,000 ML IV SCH ×2 (01:18→15:54)
[2017-03-28] MEDS: MINERAL OIL 133 ML ENEMA PR SCH ×2 (05:38→09:59)
[2017-03-28] MEDS: PIPER-TAZO 3.375 GM IV (PMX) 100 ML IVPB SCH ×3 (05:39→17:45)
[2017-03-28] MEDS: METOCLOPRAMIDE 10 MG INJ IV SCH ×3 (05:39→21:59)
[2017-03-28] MEDS: MINERAL OIL 30ML CUP GTB SCH ×4 (05:44→22:00)
[2017-03-28 07:07] LABS: BASOPHILS % 0.5 % (0.0-2.0); EOSINOPHILS # 0.9 10^3/ul (0.0-0.5); EOSINOPHILS % 16.3 % (0.0-7.0); HEMATOCRIT 31.9 % (42.0-52.0); HEMOGLOBIN 10.5 g/dl (14.0-18.0); LYMPHOCYTES # 2.1 10^3/ul (0.8-2.9); LYMPHOCYTES % 37.4 % (15.0-51.0); MEAN CORPUSCULAR HEMOGLOBIN 28.5 pg (29.0-33.0); MEAN CORPUSCULAR HGB CONC 32.9 g/dl (32.0-37.0); MEAN CORPUSCULAR VOLUME 86.4 fl (82.0-101.0); MEAN PLATELET VOLUME 12.7 fl (7.4-10.4); MONOCYTES % 17.7 % (0.0-11.0); NEUTROPHILS % 27.6 % (39.0-77.0); PLATELET COUNT 289 10^3/UL (140-415); RED BLOOD COUNT 3.69 10^6/ul (4.70-6.10); RED CELL DISTRIBUTION WIDTH 17.1 % (11.5-14.5); WHITE BLOOD COUNT 5.6 10^3/ul (4.8-10.8)
[2017-03-28 07:32] LABS: ALBUMIN 3.2 g/dl (3.3-4.9); ALBUMIN/GLOBULIN RATIO 0.66; BILIRUBIN,INDIRECT 0.1 mg/dl (0-1.1); BILIRUBIN,TOTAL 0.1 mg/dl (0.2-1.3); CALCIUM 9.3 mg/dl (8.4-10.2); CREATININE 0.94 mg/dl (0.61-1.24); POTASSIUM 3.5 mmol/L (3.5-5.1)
--- NOTE | 2017-03-28 08:25 | CONS ---
DATE OF ADMISSION: 03/20/2017 DATE OF CONSULTATION: 03/26/2017 REASON FOR CONSULTATION: Arrhythmia. CHIEF COMPLAINT: Nausea and vomiting. HISTORY OF PRESENT ILLNESS: Thank you for this referral. History was obtained by review of the old chart, discussion with David Benavides NP, and review of the old chart. Per patient, he said his own history. was established. He is an unfortunate 71-year-old gentleman with history of traumatic brain injury, subdural hematoma, status post tracheostomy, chronic vent dependent, who has been transferred to our facility about a week ago with increasing nausea, vomiting and gastric tube retention. Overnight, patient was noted to have significant bradycardia, heart rate as low as 40s. He also has had frequent PACs, . Patient is still on the vent. history to me. was reviewed. He has had multi sinus bradycardia, heart rate mostly around 50s, and sometimes it goes down to 40s but overall has been above 50s. Has had occasional PVCs and PACs as well, too. No sinus atrial fibrillation. PAST MEDICAL HISTORY: History of traumatic brain injury with subdural hematoma, severe encephalopathy, severe chronic ventilator dependent respiratory failure, several tracheostomies and history of COPD, history of recurrent infections, dysphagia, status post G tube placement, history of colostomy placement. SOCIAL HISTORY: Patient is an ex-smoker. He currently lives in a [facility]. ALLERGIES: NO REPORTED DRUG ALLERGY. MEDICATION: Prior to admission: 1. Albuterol. 2. Vitamins. 3. Alyssa-Colace. 4. Metoprolol. 5. Protonix. 6. Tramadol. 7. Cranberry juice. 8. Iron. Currently, he is on: 9. Reglan. 10. Caspofungin. 11. Amlodipine 10. 12. Vancomycin. 13. Pepcid. 14. Lovenox. 15. 16. Zosyn. FAMILY HISTORY: REVIEW OF SYSTEMS: Unable to obtain above mentioned. Patient is noncommunicative. PHYSICAL EXAMINATION: VITAL SIGNS: Temperature 98.2, heart rate of 52, blood pressure 150/70, respiratory rate of 20. HEENT: Normocephalic, atraumatic. tracheostomy on the vent. Eyes: Pupils are equal. NECK: No JVD, status post trache tube. CARDIOVASCULAR: Regular rate and rhythm. A systolic murmur, grade 1. PULMONARY: Entirely with no wheezing. Mild rhonchi, mostly on his right side. GASTROINTESTINAL: Soft, status post colostomy. EXTREMITIES: With 3+ lower extremity edema. NEUROLOGIC: Opens his eyes. Does not follow commands or answer questions. LABORATORY: Sodium 140, potassium 3.5, BUN of 9, creatinine 0.81, glucose of 91. Review of the old chart showed the TSH on September 01 was 0.79. WBC was 7.8, hemoglobin 9.4, platelets of 177,000. as above mentioned. Chest x-ray done yesterday shows hypoinflated lungs, stable patchy infiltrate throughout the right lung, stable retrocardiac opacity. CT of the abdomen and pelvis done on the shows small bowel obstruction, moderate emphysematous changes, vascular calcification. ASSESSMENT: 1. with bradycardia as well as frequent premature atrial contractions. He does not appear to be symptomatic at this point. 2. Hypoxemic respiratory failure. 3. Small bowel obstruction. 4. Hypertension. 5. Severe encephalopathy. 6. Subdural hematoma 7. History of chronic obstructive pulmonary disease. 8. Dysphagia percutaneous endoscopic gastrostomy placement. RECOMMENDATIONS: Will collect potassium and magnesium as needed. I will check the labs again tomorrow. Thyroid function will be repeated. Echocardiogram will be checked function. Vent support will be continued pulmonary team. Antibiotic, aspirin, Internal Medicine, ID recommendations. Follow the GI recommendations as well. We will continue to monitor on telemetry. Thank you for this referral. I and will follow along with you. Dictated By: Michael Hargrove MD /[email or web address]/kera /Document#: [id number] CC: David Benavides NP;*End*
[2017-03-28] MEDS: AMLODIPINE 10 MG TAB GTB SCH (09:00)
[2017-03-28] MEDS: FAMOTIDINE 20 MG INJ IV SCH ×2 (10:03→21:59)
[2017-03-28] MEDS: ENOXAPARIN 30 MG/0.3 ML SYG SC SCH (10:13)
--- NOTE | 2017-03-28 11:04 | CONS ---
Date/Time of Note Date/Time of Note DATE: 03/28/17 TIME: 11:02 Assessment/Plan Assessment/Plan Additional Assessment/Plan Ventilator setting; AC of 20, tidal volume 500, PEEP of 5, 30% FiO2. Assessment and recommendations; 1. Patient admitted with sepsis from UTI. Currently on appropriate antibiotic regimen. 2. Chronic respiratory failure. 3. Advanced dementia. Continue current treatment. Prognosis is poor. Consultation Date/Type/Reason Admit Date/Time Mar 20, 2017 at 23:37 Initial Consult Date 03/21/17 Type of Consultation: Pulm 24 HR Interval Summary Free Text/Dictation Patient condition remains stable. Remains unresponsive which is his underlying mental status due to advanced dementia. Patient also remains chronically ventilator dependent. General exam; elderly male, on ventilator via tracheostomy, currently in no distress. Patient remains unresponsive. Exam/Review of Systems Vital Signs Vitals Vital Signs Date Time Temp Pulse Resp B/P Pulse Ox O2 Delivery O2 Flow Rate FiO2 03/28/17 08:05 51 03/28/17 07:55 98.1 21 165/84 99 03/28/17 05:40 30 03/26/17 04:00 Mechanical Ventilator Trach Collar Intake and Output 03/27/17 03/27/17 03/28/17 15:00 23:00 07:00 Intake Total 640 ml Output Total 975 ml Balance -335 ml Exam HEENT exam; supple neck, no JVD. No lymphadenopathy. Midline trachea. No thyromegaly. Tracheostomy in place. Insertion site is clean. Patient is edentulous. Chest exam; diminished but clear breath sounds. S1-S2 audible, no murmurs. Regular rhythm. Abdomen exam; soft, G-tube in place. Ileostomy in place. No organomegaly. Bowel sounds audible. Abdomen is scaphoid. Extremity exam; no peripheral edema. [employer] exam; patient remains completely unresponsive. Results Result Diagram: 03/28/17 0630 03/28/17 0630 Results 24 hrs Laboratory Tests Test 03/28/17 06:30 White Blood Count 5.6 Red Blood Count 3.69 L Hemoglobin 10.5 L Hematocrit 31.9 L Mean Corpuscular Volume 86.4 Mean Corpuscular Hemoglobin 28.5 L Mean Corpuscular Hemoglobin Concent 32.9 Red Cell Distribution Width 17.1 H Platelet Count 289 Mean Platelet Volume 12.7 H Neutrophils % 27.6 L Lymphocytes % 37.4 Monocytes % 17.7 H Eosinophils % 16.3 H Basophils % 0.5 Nucleated Red Blood Cells % 0.0 Neutrophils # (Manual) 1.5 L Lymphocytes # 2.1 Monocytes # 1.0 H Eosinophils # 0.9 H Basophils # 0.0 Nucleated Red Blood Cells # 0.0 Sodium Level 142 Potassium Level 3.5 Chloride Level 106 Carbon Dioxide Level 25 Anion Gap 15 Blood Urea Nitrogen 9 Creatinine 0.94 Glucose Level 82 Calcium Level 9.3 Magnesium Level 2.3 Total Bilirubin 0.1 L Direct Bilirubin 0.00 Indirect Bilirubin 0.1 Aspartate Amino Transf (AST/SGOT) 34 Alanine Aminotransferase (ALT/SGPT) 50 Alkaline Phosphatase 70 Total Protein 8.0 Albumin 3.2 L Globulin 4.80 H Albumin/Globulin Ratio 0.66 Medications Medications Current Medications Ondansetron HCl (Zofran Inj) 4 mg Q6H PRN IV NAUSEA AND/OR VOMITING; Start at 23:30 Acetaminophen (Tylenol Tab) 650 mg Q6H PRN PO PAIN LEVEL 1-3 OR FEVER Last administered on 03/21/17 03:14; Admin Dose 650 MG; Start 03/20/17 at 23:30 Morphine Sulfate (morphine) 2 mg Q4H PRN IV PAIN LEVEL 7-10 Last administered on 03/23/17 15:29; Admin Dose 2 MG; Start 03/20/17 at 23:30 Famotidine (Pepcid Iv) 20 mg Q12 IV Last administered on 03/28/17 10:03; Admin Dose 20 MG; Start 03/21/17 at 09:00 Enoxaparin Sodium 30 mg 30 mg DAILY SC Last administered on 03/28/17 10:13; Admin Dose 30 MG; Start 03/21/17 at 09:00 Piperacillin Sod/ Tazobactam Sod (Zosyn 3.375gm/ 100 ml (Pmx)) 100 ml @ 200 mls /hr Q6 IVPB Last administered on 03/28/17 05:39; Admin Dose 200 MLS/HR; Start 03/21/17 at 06:00 Collagenase 1 applic 1 applic PRN PRN TOP SOILNG; Start 03/22/17 at 16:15 Caspofungin/ Sodium Chloride (Cancidas/NS) 250 ml @ 250 mls/hr Q24H IVPB Last administered on 03/27/17 16:23; Admin Dose 250 MLS/HR; Start 03/24/17 at 16:00 Mineral Oil (Mineral Oil) 50 ml Q8 GTB Last administered on 03/28/17 05:44; Admin Dose 50 ML; Start 03/23/17 at 15:00 Amlodipine Besylate (Norvasc) 10 mg DAILY GTB Last administered on 03/27/17 09 :05; Admin Dose 10 MG; Start 03/24/17 at 09:00 Hydralazine HCl (Apresoline) 20 mg Q6H PRN IV FOR SBP>160 Last administered on 03/27/17 11:45; Admin Dose 20 MG; Start 03/23/17 at 18:30 Mineral Oil 133 ml 133 ml BID WI Last administered on 03/28/17 09:59; Admin Dose 133 ML; Start 03/24/17 at 21:00 Vancomycin HCl 750 mg/Sodium Chloride 150 ml @ 75 mls/hr Q24H IVPB Last administered on 03/27/17 13:02; Admin Dose 75 MLS/HR; Start 03/26/17 at 12:30 Potassium Chloride/Dextrose/ Sod Cl (D5-1/2ns + KCl 40 Meq) 1,000 ml @ 70 mls/ hr [id number] IV Last administered on 03/27/17 11:00; Admin Dose 70 MLS/HR; Start 03/27/17 at 11:00 Metoclopramide HCl (Reglan) 10 mg Q8 IV Last administered on 03/28/17 05:39; Admin Dose 10 MG; Start 03/27/17 at 15:30 SHAAN BUTT Mar 28, 2017 11:04
[2017-03-28] MEDS: VANCOMYCIN 750 MG in SOD CHLORIDE 0.9% 150 ML IVPB SCH (12:06)
--- NOTE | 2017-03-28 12:53 | RADRPT ---
PROCEDURE: XR Abdomen. CLINICAL INDICATION: Abdominal distension TECHNIQUE: 2 AP views of the abdomen were obtained COMPARISON: X-ray abdomen dated 03/26/2017 FINDINGS: There is a nonobstructive bowel gas pattern. Moderate volume formed stool is seen throughout the col on. There is a left lower quadrant stoma. No intraperitoneal free air or pneumatosis is identified. There is no evidence of organomegaly. No abnormal soft tissue calcifications are seen. The visua lized portion of the lung bases are clear. The osseous structures demonstrate dextroscoliosis of th e lumbar spine. IMPRESSION: 1. Moderate volume formed stool throughout the colon, consistent with constipation. No significant interval change. 2. Left lower quadrant stoma. RPTAT: HH .Malena Irwin MD, Date Time Electronically viewed and signed by .Malena Irwin MD, on 03/28/2017 12:53 .G/
--- NOTE | 2017-03-28 14:39 | PN ---
Date/Time of Note Date/Time of Note DATE: 03/28/17 TIME: 14:20 Assessment/Plan VTE Prophylaxis VTE Prophylaxis Intervention: LMWH Lines/Catheters IV [facility] Type (from [facility]): Peripheral IV Urinary Cath still in place: Yes Reason Cath still needed: urinary retention, pres ulcer contaminated by urine, other (indicate) Assessment/Plan Assessment/Plan 71-year-old male with advanced dementia and sepsis due to pneumonia and urinary tract infection was admitted due to vomiting CT scan was read as small bowel obstruction. Me appears the cause of obstruction is large amount of stool which is throughout the whole colon from cecum to the area of the colostomy. I try to lubricate the stool by giving mineral oil through the G-tube also giving mineral oil enemas through the area of the colostomy, so far it has not been very effective some small amount of the stool has been passed through colostomy. As mentioned trigone of 1500 cc of GoLYTELY was not effective and I had to put back NG tube on intermittent suction. Today another time i did digital examination through the colostomy and some amount of hard greenish stool digitally was removed. And I myself gave him 1 Fleet enema through the colostomy gently the efficacy of it to be seen later on. Plan: Considering the situation status of health of this patient I do not think he is a candidate for any surgical intervention for relief of small bowel obstruction, therefore I am going to continue conservative approach by giving mineral oil 50 cc through G-tube every 8 hours and clamp the G-tube for 5 hours and then unclamp it for 3 hours. Hoping that he eventually would open up and move the stool through colostomy. KUB which was done at 1 PM today and felt presence of large amount of stool throughout the whole colon and no evidence of bowel obstruction. I will discuss this detail with Dr. Meeks today. Subjective 24 Hr Interval Summary Free Text/Dictation Unresponsive, noncommunicative, on the ventilator through tracheostomy, Last night I tried 1-1/2 L of GoLYTELY 150 cc/h to see if he can push the material in the colon to be evacuated from colostomy but apparently was not successful. Patient in advanced state of dementia. Exam/Review of Systems Vital Signs Vitals Vital Signs Date Time Temp Pulse Resp B/P Pulse Ox O2 Delivery O2 Flow Rate FiO2 03/28/17 12:05 53 03/28/17 11:57 97.6 19 145/90 99 03/28/17 11:35 30 03/26/17 04:00 Mechanical Ventilator Trach Collar Intake and Output 03/27/17 03/27/17 03/28/17 15:00 23:00 07:00 Intake Total 640 ml Output Total 975 ml Balance -335 ml Exam Vital signs are stable. Noncommunicative and not responding to verbal or painful stimuli. Dementia. Slightly distended more than yesterday. when connected the G-tube to intermittent suction and opened it up within 1 hour 1200 cc of greenish fluid was aspirated. Means that old GoLYTELY that was given over the night was accumulated in the stomach and small bowel and was drained back to the G-tube which again remains that still there is no obstruction at the area of the terminal ileum and cecum due to impacted stool. After drainage the abdomen is soft Results Result Diagram: 03/28/17 0630 03/28/17 0630 Results 24 hrs Laboratory Tests Test 03/28/17 06:30 White Blood Count 5.6 Red Blood Count 3.69 L Hemoglobin 10.5 L Hematocrit 31.9 L Mean Corpuscular Volume 86.4 Mean Corpuscular Hemoglobin 28.5 L Mean Corpuscular Hemoglobin Concent 32.9 Red Cell Distribution Width 17.1 H Platelet Count 289 Mean Platelet Volume 12.7 H Neutrophils % 27.6 L Lymphocytes % 37.4 Monocytes % 17.7 H Eosinophils % 16.3 H Basophils % 0.5 Nucleated Red Blood Cells % 0.0 Neutrophils # (Manual) 1.5 L Lymphocytes # 2.1 Monocytes # 1.0 H Eosinophils # 0.9 H Basophils # 0.0 Nucleated Red Blood Cells # 0.0 Sodium Level 142 Potassium Level 3.5 Chloride Level 106 Carbon Dioxide Level 25 Anion Gap 15 Blood Urea Nitrogen 9 Creatinine 0.94 Glucose Level 82 Calcium Level 9.3 Magnesium Level 2.3 Total Bilirubin 0.1 L Direct Bilirubin 0.00 Indirect Bilirubin 0.1 Aspartate Amino Transf (AST/SGOT) 34 Alanine Aminotransferase (ALT/SGPT) 50 Alkaline Phosphatase 70 Total Protein 8.0 Albumin 3.2 L Globulin 4.80 H Albumin/Globulin Ratio 0.66 Medications Medications Current Medications Ondansetron HCl (Zofran Inj) 4 mg Q6H PRN IV NAUSEA AND/OR VOMITING; Start at 23:30 Acetaminophen (Tylenol Tab) 650 mg Q6H PRN PO PAIN LEVEL 1-3 OR FEVER Last administered on 03/21/17 03:14; Admin Dose 650 MG; Start 03/20/17 at 23:30 Morphine Sulfate (morphine) 2 mg Q4H PRN IV PAIN LEVEL 7-10 Last administered on 03/23/17 15:29; Admin Dose 2 MG; Start 03/20/17 at 23:30 Famotidine (Pepcid Iv) 20 mg Q12 IV Last administered on 03/28/17 10:03; Admin Dose 20 MG; Start 03/21/17 at 09:00 Enoxaparin Sodium 30 mg 30 mg DAILY SC Last administered on 03/28/17 10:13; Admin Dose 30 MG; Start 03/21/17 at 09:00 Piperacillin Sod/ Tazobactam Sod (Zosyn 3.375gm/ 100 ml (Pmx)) 100 ml @ 200 mls /hr Q6 IVPB Last administered on 03/28/17 12:06; Admin Dose 200 MLS/HR; Start 03/21/17 at 06:00 Collagenase 1 applic 1 applic PRN PRN TOP SOILNG; Start 03/22/17 at 16:15 Caspofungin/ Sodium Chloride (Cancidas/NS) 250 ml @ 250 mls/hr Q24H IVPB Last administered on 03/27/17 16:23; Admin Dose 250 MLS/HR; Start 03/24/17 at 16:00 Mineral Oil (Mineral Oil) 50 ml Q8 GTB Last administered on 03/28/17 05:44; Admin Dose 50 ML; Start 03/23/17 at 15:00 Amlodipine Besylate (Norvasc) 10 mg DAILY GTB Last administered on 03/27/17 09 :05; Admin Dose 10 MG; Start 03/24/17 at 09:00 Hydralazine HCl 20 mg 20 mg Q6H PRN IV FOR SBP>160 Last administered on 11:45; Admin Dose 20 MG; Start 03/23/17 at 18:30 Vancomycin HCl 750 mg/Sodium Chloride 150 ml @ 75 mls/hr Q24H IVPB Last administered on 03/28/17 12:06; Admin Dose 75 MLS/HR; Start 03/26/17 at 12:30 Potassium Chloride/Dextrose/ Sod Cl (D5-1/2ns + KCl 40 Meq) 1,000 ml @ 70 mls/ hr [id number] IV Last administered on 03/27/17 11:00; Admin Dose 70 MLS/HR; Start 03/27/17 at 11:00 Metoclopramide HCl (Reglan) 10 mg Q8 IV Last administered on 03/28/17 05:39; Admin Dose 10 MG; Start 03/27/17 at 15:30 VANIA MAE MD Mar 28, 2017 14:39
--- NOTE | 2017-03-28 15:28 | PN ---
Date/Time of Note Date/Time of Note DATE: 03/28/17 TIME: 15:25 Assessment/Plan VTE Prophylaxis VTE Prophylaxis Intervention: SCD's Lines/Catheters IV Catheter Type (from Nrs): Peripheral IV Urinary Cath still in place: Yes Reason Cath still needed: urinary retention Assessment/Plan Chief Complaint/Hosp Course Patient is bradycardic, continued on mineral oil via GT, continue to monitor colostomy output, continue IV fluids, NG tube to low wall suctioning. Assessment/Plan - SBO, Dr. Gay is swallowing in general surgery consultation. -Sepsis secondary to urinary tract infection an possible pneumonia. Continue broad-spectrum antibiotics. Dr. Almazan is following an infection disease consultation. -Intractable nausea and vomiting, rule out gastric outlet obstruction. Dr. Cha is following in gastroenterology consultation. -Colostomy. -Hyperkalemia secondary to dehydration, resolved. -Ventilator-dependent respiratory failure. Dr. Saenz is following in pulmonology consultation. -Subdural hematoma with chronic encephalopathy. -Chronic obstructive pulmonary disease. -Dysphagia with G-tube. Further recommendations based on clinical course. Plan of care discussed with Dr. Meeks. Problems: Exam/Review of Systems Vital Signs Vitals Vital Signs Date Time Temp Pulse Resp B/P Pulse Ox O2 Delivery O2 Flow Rate FiO2 03/28/17 12:05 53 03/28/17 11:57 97.6 19 145/90 99 03/28/17 11:35 30 03/26/17 04:00 Mechanical Ventilator Trach Collar Intake and Output 03/27/17 03/27/17 03/28/17 15:00 23:00 07:00 Intake Total 640 ml Output Total 975 ml Balance -335 ml Exam Constitutional: frail, non-verbal Head: normocephalic Neck: other (Tracheostomy), supple Respiratory: diminished breath sounds Cardiovascular: nl pulses Gastrointestinal: other (G-tube), soft, colostomy Extremities: normal pulses Skin: other (Multiple wounds) Results Result Diagram: 03/28/17 0630 03/28/17 0630 Results 24 hrs Laboratory Tests Test 03/28/17 06:30 White Blood Count 5.6 Red Blood Count 3.69 L Hemoglobin 10.5 L Hematocrit 31.9 L Mean Corpuscular Volume 86.4 Mean Corpuscular Hemoglobin 28.5 L Mean Corpuscular Hemoglobin Concent 32.9 Red Cell Distribution Width 17.1 H Platelet Count 289 Mean Platelet Volume 12.7 H Neutrophils % 27.6 L Lymphocytes % 37.4 Monocytes % 17.7 H Eosinophils % 16.3 H Basophils % 0.5 Nucleated Red Blood Cells % 0.0 Neutrophils # (Manual) 1.5 L Lymphocytes # 2.1 Monocytes # 1.0 H Eosinophils # 0.9 H Basophils # 0.0 Nucleated Red Blood Cells # 0.0 Sodium Level 142 Potassium Level 3.5 Chloride Level 106 Carbon Dioxide Level 25 Anion Gap 15 Blood Urea Nitrogen 9 Creatinine 0.94 Glucose Level 82 Calcium Level 9.3 Magnesium Level 2.3 Total Bilirubin 0.1 L Direct Bilirubin 0.00 Indirect Bilirubin 0.1 Aspartate Amino Transf (AST/SGOT) 34 Alanine Aminotransferase (ALT/SGPT) 50 Alkaline Phosphatase 70 Total Protein 8.0 Albumin 3.2 L Globulin 4.80 H Albumin/Globulin Ratio 0.66 Medications Medications Current Medications Ondansetron HCl (Zofran Inj) 4 mg Q6H PRN IV NAUSEA AND/OR VOMITING; Start at 23:30 Acetaminophen (Tylenol Tab) 650 mg Q6H PRN PO PAIN LEVEL 1-3 OR FEVER Last administered on 03/21/17 03:14; Admin Dose 650 MG; Start 03/20/17 at 23:30 Morphine Sulfate (morphine) 2 mg Q4H PRN IV PAIN LEVEL 7-10 Last administered on 03/23/17 15:29; Admin Dose 2 MG; Start 03/20/17 at 23:30 Famotidine (Pepcid Iv) 20 mg Q12 IV Last administered on 03/28/17 10:03; Admin Dose 20 MG; Start 03/21/17 at 09:00 Enoxaparin Sodium 30 mg 30 mg DAILY SC Last administered on 03/28/17 10:13; Admin Dose 30 MG; Start 03/21/17 at 09:00 Piperacillin Sod/ Tazobactam Sod (Zosyn 3.375gm/ 100 ml (Pmx)) 100 ml @ 200 mls /hr Q6 IVPB Last administered on 03/28/17 12:06; Admin Dose 200 MLS/HR; Start 03/21/17 at 06:00 Collagenase 1 applic 1 applic PRN PRN TOP SOILNG; Start 03/22/17 at 16:15 Caspofungin/ Sodium Chloride (Cancidas/NS) 250 ml @ 250 mls/hr Q24H IVPB Last administered on 03/27/17 16:23; Admin Dose 250 MLS/HR; Start 03/24/17 at 16:00 Mineral Oil (Mineral Oil) 50 ml Q8 GTB Last administered on 03/28/17 14:54; Admin Dose 50 ML; Start 03/23/17 at 15:00 Amlodipine Besylate (Norvasc) 10 mg DAILY GTB Last administered on 03/27/17 09 :05; Admin Dose 10 MG; Start 03/24/17 at 09:00 Hydralazine HCl 20 mg 20 mg Q6H PRN IV FOR SBP>160 Last administered on 11:45; Admin Dose 20 MG; Start 03/23/17 at 18:30 Vancomycin HCl 750 mg/Sodium Chloride 150 ml @ 75 mls/hr Q24H IVPB Last administered on 03/28/17 12:06; Admin Dose 75 MLS/HR; Start 03/26/17 at 12:30 Potassium Chloride/Dextrose/ Sod Cl (D5-1/2ns + KCl 40 Meq) 1,000 ml @ 70 mls/ hr [id number] IV Last administered on 03/27/17 11:00; Admin Dose 70 MLS/HR; Start 03/27/17 at 11:00 Metoclopramide HCl (Reglan) 10 mg Q8 IV Last administered on 03/28/17 14:51; Admin Dose 10 MG; Start 03/27/17 at 15:30 AMY MORAN Mar 28, 2017 15:28
[2017-03-28] MEDS: CASPOFUNGIN 50 MG in SOD CHLORIDE 0.9% 250 ML IVPB SCH (16:50)
--- NOTE | 2017-03-28 17:09 | CONS ---
Date/Time of Note Date/Time of Note DATE: 03/28/17 TIME: 17:07 Consult Date/Type/Reason Admit Date/Time Mar 20, 2017 at 23:37 Initial Consult Date 03/21/17 Type of Consultation: Cardiology Subjective Discussed with stability was reviewed. Patient remained nonverbal status with s /p tracheostomy on the vent. rhythm was reviewed. ventricular Arrhythmia has improved. he still remains bradycardic but in sinus though She remains nonverbal and is unable to provide any history to me. objective: General: s/p trach. thin man HEENT: NC/AT. pupils are equal. round. NECK: NO JVD. no stridor. s/p trach CV: bradycardic. systolic murmur; no gallop or rubs. PULM: no wheezing or rhonchi. GI: SOFT, NT, ND, no rebound or guarding Extremity: trace B/L LE edema. no clubbing. neuro: does not respond to or follow commands Psych: calm rectal: deferred : normal ECHO REVIEWED: 1. Normal left ventricular systolic function. Normal left ventricular cavity size. Mild concentric left ventricular hypertrophy. Ejection fraction is visually estimated at 65 %. 2. Mitral valve leaflets appear mildly thickened. Mild mitral annular calcification. Trace mitral regurgitation. 3. No significant aortic stenosis or insufficiency. Aortic cusps appear mildly calcified. 4. Normal appearance of the tricuspid valve. Unable to obtain RVSP due to minimal presence of tricuspid regurgitation. Objective Vital Signs Date Time Temp Pulse Resp B/P Pulse Ox O2 Delivery O2 Flow Rate FiO2 03/28/17 16:02 97.5 57 18 147/85 98 03/28/17 15:25 30 03/26/17 04:00 Mechanical Ventilator Trach Collar Intake and Output 03/27/17 03/27/17 03/28/17 15:00 23:00 07:00 Intake Total 640 ml Output Total 975 ml Balance -335 ml Results/Medications Result Diagram: 03/28/17 0630 03/28/17 0630 Results 24 hrs Laboratory Tests Test 03/28/17 06:30 White Blood Count 5.6 Red Blood Count 3.69 L Hemoglobin 10.5 L Hematocrit 31.9 L Mean Corpuscular Volume 86.4 Mean Corpuscular Hemoglobin 28.5 L Mean Corpuscular Hemoglobin Concent 32.9 Red Cell Distribution Width 17.1 H Platelet Count 289 Mean Platelet Volume 12.7 H Neutrophils % 27.6 L Lymphocytes % 37.4 Monocytes % 17.7 H Eosinophils % 16.3 H Basophils % 0.5 Nucleated Red Blood Cells % 0.0 Neutrophils # (Manual) 1.5 L Lymphocytes # 2.1 Monocytes # 1.0 H Eosinophils # 0.9 H Basophils # 0.0 Nucleated Red Blood Cells # 0.0 Sodium Level 142 Potassium Level 3.5 Chloride Level 106 Carbon Dioxide Level 25 Anion Gap 15 Blood Urea Nitrogen 9 Creatinine 0.94 Glucose Level 82 Calcium Level 9.3 Magnesium Level 2.3 Total Bilirubin 0.1 L Direct Bilirubin 0.00 Indirect Bilirubin 0.1 Aspartate Amino Transf (AST/SGOT) 34 Alanine Aminotransferase (ALT/SGPT) 50 Alkaline Phosphatase 70 Total Protein 8.0 Albumin 3.2 L Globulin 4.80 H Albumin/Globulin Ratio 0.66 Medications Current Medications Ondansetron HCl (Zofran Inj) 4 mg Q6H PRN IV NAUSEA AND/OR VOMITING; Start at 23:30 Acetaminophen (Tylenol Tab) 650 mg Q6H PRN PO PAIN LEVEL 1-3 OR FEVER Last administered on 03/21/17 03:14; Admin Dose 650 MG; Start 03/20/17 at 23:30 Morphine Sulfate (morphine) 2 mg Q4H PRN IV PAIN LEVEL 7-10 Last administered on 03/23/17 15:29; Admin Dose 2 MG; Start 03/20/17 at 23:30 Famotidine (Pepcid Iv) 20 mg Q12 IV Last administered on 03/28/17 10:03; Admin Dose 20 MG; Start 03/21/17 at 09:00 Enoxaparin Sodium 30 mg 30 mg DAILY SC Last administered on 03/28/17 10:13; Admin Dose 30 MG; Start 03/21/17 at 09:00 Piperacillin Sod/ Tazobactam Sod (Zosyn 3.375gm/ 100 ml (Pmx)) 100 ml @ 200 mls /hr Q6 IVPB Last administered on 03/28/17 12:06; Admin Dose 200 MLS/HR; Start 03/21/17 at 06:00 Collagenase 1 applic 1 applic PRN PRN TOP SOILNG; Start 03/22/17 at 16:15 Caspofungin/ Sodium Chloride (Cancidas/NS) 250 ml @ 250 mls/hr Q24H IVPB Last administered on 03/28/17 16:50; Admin Dose 250 MLS/HR; Start 03/24/17 at 16:00 Mineral Oil (Mineral Oil) 50 ml Q8 GTB Last administered on 03/28/17 14:54; Admin Dose 50 ML; Start 03/23/17 at 15:00 Amlodipine Besylate (Norvasc) 10 mg DAILY GTB Last administered on 03/27/17 09 :05; Admin Dose 10 MG; Start 03/24/17 at 09:00 Hydralazine HCl 20 mg 20 mg Q6H PRN IV FOR SBP>160 Last administered on 11:45; Admin Dose 20 MG; Start 03/23/17 at 18:30 Vancomycin HCl 750 mg/Sodium Chloride 150 ml @ 75 mls/hr Q24H IVPB Last administered on 03/28/17 12:06; Admin Dose 75 MLS/HR; Start 03/26/17 at 12:30 Potassium Chloride/Dextrose/ Sod Cl (D5-1/2ns + KCl 40 Meq) 1,000 ml @ 70 mls/ hr [id number] IV Last administered on 03/28/17 15:54; Admin Dose 70 MLS/HR; Start 03/27/17 at 11:00 Metoclopramide HCl (Reglan) 10 mg Q8 IV Last administered on 03/28/17 14:51; Admin Dose 10 MG; Start 03/27/17 at 15:30 Assessment/Plan Chief Complaint/Hosp Course 1. Arrhythmia: improved now with correction of electrolytes. 2. hypoxemic respiratory failure: Status with tracheostomy vent dependent 3. History of hypertension 4. anemia. 5. encephalopathy 6. hypo K, 7. SBO Recommendations: correct lytes including K and Mg prn vent support and trach care as per PULM tele monitoring for now. GI work up and treatment as per IM Thank you Mahogany morales MD [facility] Problems: MAHOGANY MORALES MD Mar 28, 2017 17:09
[2017-03-28] MEDS ORDERED: POTASSIUM CHLORIDE 20 MEQ in SOD CHLORIDE 0.9% 100 ML IVPB ONE (17:30)
--- NOTE | 2017-03-28 18:23 | CONS ---
Date/Time of Note Date/Time of Note DATE: 03/28/17 TIME: 18:21 Assessment/Plan Assessment/Plan Chief Complaint/Hosp Course SUBJECTIVE DATA: No events overnight. The patient is lying comfortably in bed. He is noncommunicative. No fevers. INDWELLINGS: Trach, PEG, Chaudhari. Antimicrobials: Patient is on Cancidas, Zosyn, vancomycin. PHYSICAL EXAMINATION: GENERAL: Fragile, chronically ill-appearing elderly man, who is in no distress. HEENT: Head atraumatic, normocephalic. Sclerae anicteric. Buccal mucosa dry. NECK: Supple. Tracheostomy present. CHEST: Rise symmetrical. Breath sounds diminished at the bases. HEART: S1, S2. ABDOMEN: Soft, bowel sounds present. EXTREMITIES: Without cyanosis. ASSESSMENT: 1. Resolving sepsis. 2. Small bowel obstruction secondary to impacted stool in the right colon and transverse colon. 3. Healthcare associated pneumonia. 4. Urinary tract infection. 5. Chronic encephalopathy. 6. Multiple chronic wounds. PLAN: The patient remains stable. Will keep on Cancidas, dc other abx, f/u surgical/pulmonary/GI recommendations DW staff Problems: Consultation Date/Type/Reason Admit Date/Time Mar 20, 2017 at 23:37 Initial Consult Date 03/21/17 Type of Consultation: id Exam/Review of Systems Vital Signs Vitals Vital Signs Date Time Temp Pulse Resp B/P Pulse Ox O2 Delivery O2 Flow Rate FiO2 03/28/17 17:10 44 20 99 30 03/28/17 16:02 97.5 147/85 03/26/17 04:00 Mechanical Ventilator Trach Collar Intake and Output 03/27/17 03/27/17 03/28/17 15:00 23:00 07:00 Intake Total 640 ml Output Total 975 ml Balance -335 ml Results Result Diagram: 03/28/17 0630 03/28/17 0630 Results 24 hrs Laboratory Tests Test 03/28/17 06:30 White Blood Count 5.6 Red Blood Count 3.69 L Hemoglobin 10.5 L Hematocrit 31.9 L Mean Corpuscular Volume 86.4 Mean Corpuscular Hemoglobin 28.5 L Mean Corpuscular Hemoglobin Concent 32.9 Red Cell Distribution Width 17.1 H Platelet Count 289 Mean Platelet Volume 12.7 H Neutrophils % 27.6 L Lymphocytes % 37.4 Monocytes % 17.7 H Eosinophils % 16.3 H Basophils % 0.5 Nucleated Red Blood Cells % 0.0 Neutrophils # (Manual) 1.5 L Lymphocytes # 2.1 Monocytes # 1.0 H Eosinophils # 0.9 H Basophils # 0.0 Nucleated Red Blood Cells # 0.0 Sodium Level 142 Potassium Level 3.5 Chloride Level 106 Carbon Dioxide Level 25 Anion Gap 15 Blood Urea Nitrogen 9 Creatinine 0.94 Glucose Level 82 Calcium Level 9.3 Magnesium Level 2.3 Total Bilirubin 0.1 L Direct Bilirubin 0.00 Indirect Bilirubin 0.1 Aspartate Amino Transf (AST/SGOT) 34 Alanine Aminotransferase (ALT/SGPT) 50 Alkaline Phosphatase 70 Total Protein 8.0 Albumin 3.2 L Globulin 4.80 H Albumin/Globulin Ratio 0.66 Medications Medications Current Medications Ondansetron HCl (Zofran Inj) 4 mg Q6H PRN IV NAUSEA AND/OR VOMITING; Start at 23:30 Acetaminophen (Tylenol Tab) 650 mg Q6H PRN PO PAIN LEVEL 1-3 OR FEVER Last administered on 03/21/17 03:14; Admin Dose 650 MG; Start 03/20/17 at 23:30 Morphine Sulfate (morphine) 2 mg Q4H PRN IV PAIN LEVEL 7-10 Last administered on 03/23/17 15:29; Admin Dose 2 MG; Start 03/20/17 at 23:30 Famotidine (Pepcid Iv) 20 mg Q12 IV Last administered on 03/28/17 10:03; Admin Dose 20 MG; Start 03/21/17 at 09:00 Enoxaparin Sodium 30 mg 30 mg DAILY SC Last administered on 03/28/17 10:13; Admin Dose 30 MG; Start 03/21/17 at 09:00 Piperacillin Sod/ Tazobactam Sod (Zosyn 3.375gm/ 100 ml (Pmx)) 100 ml @ 200 mls /hr Q6 IVPB Last administered on 03/28/17 17:45; Admin Dose 200 MLS/HR; Start 03/21/17 at 06:00 Collagenase 1 applic 1 applic PRN PRN TOP SOILNG; Start 03/22/17 at 16:15 Caspofungin/ Sodium Chloride (Cancidas/NS) 250 ml @ 250 mls/hr Q24H IVPB Last administered on 03/28/17 16:50; Admin Dose 250 MLS/HR; Start 03/24/17 at 16:00 Mineral Oil (Mineral Oil) 50 ml Q8 GTB Last administered on 03/28/17 14:54; Admin Dose 50 ML; Start 03/23/17 at 15:00 Amlodipine Besylate (Norvasc) 10 mg DAILY GTB Last administered on 03/27/17 09 :05; Admin Dose 10 MG; Start 03/24/17 at 09:00 Hydralazine HCl 20 mg 20 mg Q6H PRN IV FOR SBP>160 Last administered on 11:45; Admin Dose 20 MG; Start 03/23/17 at 18:30 Vancomycin HCl 750 mg/Sodium Chloride 150 ml @ 75 mls/hr Q24H IVPB Last administered on 03/28/17 12:06; Admin Dose 75 MLS/HR; Start 03/26/17 at 12:30 Potassium Chloride/Dextrose/ Sod Cl (D5-1/2ns + KCl 40 Meq) 1,000 ml @ 70 mls/ hr [id number] IV Last administered on 03/28/17 15:54; Admin Dose 70 MLS/HR; Start 03/27/17 at 11:00 Metoclopramide HCl 10 mg 10 mg Q8 IV Last administered on 03/28/17 14:51; Admin Dose 10 MG; Start 03/27/17 at 15:30 Potassium Chloride (KCl 20 MEQ/50 ML SW) 50 ml @ 25 mls/hr ONCE IVPB Last administered on 03/28/17 18:13; Admin Dose 25 MLS/HR; Start 03/28/17 at 18:30; Stop 03/28/17 at 20:29 RESHMA GOYAL NP Mar 28, 2017 18:23
[2017-03-28] MEDS ORDERED: POTASSIUM CHLORIDE 50 ML IVPB SCH (18:30)
[2017-03-29] VITALS (26 sets, daily range): BP systolic 128–188; BP diastolic 70–90; PULSE 45–63; RESP 18–22
[2017-03-29] MEDS: hydrALAzine 20 MG INJ IV PRN (00:20)
[2017-03-29] MEDS: D5W-0.45 NACL + KCL 40 MEQ 1,000 ML IV SCH ×2 (05:26→21:18)
[2017-03-29] MEDS: METOCLOPRAMIDE 10 MG INJ IV SCH ×3 (05:27→21:19)
[2017-03-29] MEDS: MINERAL OIL 30ML CUP GTB SCH ×3 (05:27→21:19)
[2017-03-29 07:01] LABS: ABNORMAL IP MESSAGE 1; BASOPHILS % 0.4 % (0.0-2.0); EOSINOPHILS # 0.7 10^3/ul (0.0-0.5); EOSINOPHILS % 13.8 % (0.0-7.0); HEMATOCRIT 33.1 % (42.0-52.0); HEMOGLOBIN 11.4 g/dl (14.0-18.0); LYMPHOCYTES # 2.2 10^3/ul (0.8-2.9); LYMPHOCYTES % 45.4 % (15.0-51.0); MEAN CORPUSCULAR HEMOGLOBIN 29.6 pg (29.0-33.0); MEAN CORPUSCULAR HGB CONC 34.4 g/dl (32.0-37.0); MEAN PLATELET VOLUME 12.5 fl (7.4-10.4); NEUTROPHILS % 18.7 % (39.0-77.0); NUCLEATED RED BLOOD CELLS% 0.4 /100WBC (0.0-0.0); PLATELET COUNT 281 10^3/UL (140-415); POSITIVE DIFF @See below; RED BLOOD COUNT 3.85 10^6/ul (4.70-6.10); RED CELL DISTRIBUTION WIDTH 17.1 % (11.5-14.5); WHITE BLOOD COUNT 4.8 10^3/ul (4.8-10.8)
[2017-03-29 07:16] LABS: ALBUMIN 3.2 g/dl (3.3-4.9); ALBUMIN/GLOBULIN RATIO 0.66; CALCIUM 9.5 mg/dl (8.4-10.2); CREATININE 1.03 mg/dl (0.61-1.24); MAGNESIUM 2.1 mg/dl (1.7-2.5); POTASSIUM 3.3 mmol/L (3.5-5.1)
[2017-03-29 07:17] LABS: MONOCYTES % 21.5 % (0.0-11.0)
[2017-03-29] MEDS: FAMOTIDINE 20 MG INJ IV SCH ×2 (07:46→21:18)
[2017-03-29] MEDS: AMLODIPINE 10 MG TAB GTB SCH (07:47)
[2017-03-29] MEDS: ENOXAPARIN 30 MG/0.3 ML SYG SC SCH (07:53)
--- NOTE | 2017-03-29 09:11 | CONS ---
Date/Time of Note Date/Time of Note DATE: 03/29/17 TIME: 09:09 Assessment/Plan Assessment/Plan Additional Assessment/Plan Data setting; AC of 20, tidal volume 500, PEEP of 5, 30% FiO2. Assessment recommendations; 1. Patient admitted with severe sepsis currently on appropriate antibiotic regimen. 2. Chronic respiratory failure. 3. Advanced dementia. Current treatment. Overall prognosis remains very poor. Consultation Date/Type/Reason Admit Date/Time Mar 20, 2017 at 23:37 Initial Consult Date 03/21/17 Type of Consultation: Pulmonary 24 HR Interval Summary Free Text/Dictation Patient condition remains stable. Remains profoundly unresponsive due to advanced dementia. Patient also remains chronically ventilator dependent. General exam; elderly male, on ventilator via tracheostomy, unresponsive, currently in no distress. Exam/Review of Systems Vital Signs Vitals Vital Signs Date Time Temp Pulse Resp B/P Pulse Ox O2 Delivery O2 Flow Rate FiO2 03/29/17 07:31 98.1 59 18 132/75 97 03/29/17 05:18 30 03/26/17 04:00 Mechanical Ventilator Trach Collar Intake and Output 03/28/17 03/28/17 03/29/17 15:00 23:00 07:00 Intake Total 250 ml 1150 ml Output Total 1300 ml 850 ml Balance -1050 ml 300 ml Exam HEENT exam; supple neck, no JVD. No lymphadenopathy. Midline trachea. No thyromegaly. Tracheostomy in place. Patient is edentulous. Chest exam; diminished but clear breath sounds. S1-S2 audible, no murmurs. Regular rhythm. Abdomen exam; scaphoid, G-tube in place. No organomegaly. Bowel sounds audible. Extremity exam; no peripheral edema. [employer] exam; patient remains profoundly unresponsive. Results Result Diagram: 03/29/17 0604 03/29/17 0604 Results 24 hrs Laboratory Tests Test 03/29/17 06:04 White Blood Count 4.8 Red Blood Count 3.85 L Hemoglobin 11.4 L Hematocrit 33.1 L Mean Corpuscular Volume 86.0 Mean Corpuscular Hemoglobin 29.6 Mean Corpuscular Hemoglobin Concent 34.4 Red Cell Distribution Width 17.1 H Platelet Count 281 Mean Platelet Volume 12.5 H Neutrophils % 18.7 L Lymphocytes % 45.4 Monocytes % 21.5 H Eosinophils % 13.8 H Basophils % 0.4 Nucleated Red Blood Cells % 0.4 H Neutrophils # (Manual) 0.9 L Lymphocytes # 2.2 Monocytes # 1.0 H Eosinophils # 0.7 H Basophils # 0.0 Nucleated Red Blood Cells # 0.0 Sodium Level 146 H Potassium Level 3.3 L Chloride Level 107 Carbon Dioxide Level 24 Anion Gap 18 H Blood Urea Nitrogen 10 Creatinine 1.03 Glucose Level 77 Calcium Level 9.5 Magnesium Level 2.1 Total Bilirubin 0.0 L Direct Bilirubin 0.00 Indirect Bilirubin 0.0 Aspartate Amino Transf (AST/SGOT) 33 Alanine Aminotransferase (ALT/SGPT) 50 Alkaline Phosphatase 67 Total Protein 8.0 Albumin 3.2 L Globulin 4.80 H Albumin/Globulin Ratio 0.66 Medications Medications Current Medications Ondansetron HCl (Zofran Inj) 4 mg Q6H PRN IV NAUSEA AND/OR VOMITING; Start at 23:30 Acetaminophen (Tylenol Tab) 650 mg Q6H PRN PO PAIN LEVEL 1-3 OR FEVER Last administered on 03/21/17 03:14; Admin Dose 650 MG; Start 03/20/17 at 23:30 Morphine Sulfate (morphine) 2 mg Q4H PRN IV PAIN LEVEL 7-10 Last administered on 03/23/17 15:29; Admin Dose 2 MG; Start 03/20/17 at 23:30 Famotidine (Pepcid Iv) 20 mg Q12 IV Last administered on 03/29/17 07:46; Admin Dose 20 MG; Start 03/21/17 at 09:00 Enoxaparin Sodium (Lovenox) 30 mg DAILY SC Last administered on 03/29/17 07:53 ; Admin Dose 30 MG; Start 03/21/17 at 09:00 Collagenase 1 applic 1 applic PRN PRN TOP SOILNG; Start 03/22/17 at 16:15 Caspofungin/ Sodium Chloride (Cancidas/NS) 250 ml @ 250 mls/hr Q24H IVPB Last administered on 03/28/17 16:50; Admin Dose 250 MLS/HR; Start 03/24/17 at 16:00 Mineral Oil (Mineral Oil) 50 ml Q8 GTB Last administered on 03/29/17 05:27; Admin Dose 50 ML; Start 03/23/17 at 15:00 Amlodipine Besylate (Norvasc) 10 mg DAILY GTB Last administered on 03/29/17 07 :47; Admin Dose 10 MG; Start 03/24/17 at 09:00 Hydralazine HCl 20 mg 20 mg Q6H PRN IV FOR SBP>160 Last administered on 00:20; Admin Dose 20 MG; Start 03/23/17 at 18:30 Potassium Chloride/Dextrose/ Sod Cl (D5-1/2ns + KCl 40 Meq) 1,000 ml @ 70 mls/ hr [id number] IV Last administered on 03/29/17 05:26; Admin Dose 70 MLS/HR; Start 03/27/17 at 11:00 Metoclopramide HCl (Reglan) 10 mg Q8 IV Last administered on 03/29/17 05:27; Admin Dose 10 MG; Start 03/27/17 at 15:30 SHAAN BUTT Mar 29, 2017 09:11
--- NOTE | 2017-03-29 13:09 | CONS ---
Date/Time of Note Date/Time of Note DATE: 03/29/17 TIME: 13:08 Assessment/Plan Assessment/Plan Chief Complaint/Hosp Course SUBJECTIVE DATA: No acute changes overnight, patient is lying comfortably in bed Temperature 98.7 pulse 60 respirations 18 blood pressure 132/75 saturation 97 on 30 FiO2 WBC 4.8 H&H 11.4 and 33.1 platelets 281 no shift no bands BUN 10 creatinine 1.03 INDWELLINGS: Trach, PEG, Chaudhari. Antimicrobials: Cancidas s/p Zosyn, vancomycin. PHYSICAL EXAMINATION: GENERAL: Fragile, chronically ill-appearing elderly man, who is in no distress. HEENT: Head atraumatic, normocephalic. Sclerae anicteric. Buccal mucosa dry. NECK: Supple. Tracheostomy present. CHEST: Rise symmetrical. Breath sounds diminished at the bases. HEART: S1, S2. ABDOMEN: Soft, bowel sounds present. EXTREMITIES: Without cyanosis. ASSESSMENT: 1. Resolving sepsis. 2. Small bowel obstruction secondary to impacted stool in the right colon and transverse colon. 3. Healthcare associated pneumonia. 4. Urinary tract infection. 5. Chronic encephalopathy. 6. Multiple chronic wounds. PLAN: The patient remains stable. Dc Cancidas in am, f/u surgical/pulmonary/ GI recommendations, repeat cultures as needed DW staff Problems: Consultation Date/Type/Reason Admit Date/Time Mar 20, 2017 at 23:37 Initial Consult Date 03/21/17 Type of Consultation: id Exam/Review of Systems Vital Signs Vitals Vital Signs Date Time Temp Pulse Resp B/P Pulse Ox O2 Delivery O2 Flow Rate FiO2 03/29/17 12:25 46 03/29/17 11:49 98.7 19 174/90 96 03/29/17 11:36 30 03/26/17 04:00 Mechanical Ventilator Trach Collar Intake and Output 03/28/17 03/28/17 03/29/17 15:00 23:00 07:00 Intake Total 250 ml 1150 ml Output Total 1300 ml 850 ml Balance -1050 ml 300 ml Results Result Diagram: 03/29/17 0604 03/29/17 0604 Results 24 hrs Laboratory Tests Test 03/29/17 06:04 White Blood Count 4.8 Red Blood Count 3.85 L Hemoglobin 11.4 L Hematocrit 33.1 L Mean Corpuscular Volume 86.0 Mean Corpuscular Hemoglobin 29.6 Mean Corpuscular Hemoglobin Concent 34.4 Red Cell Distribution Width 17.1 H Platelet Count 281 Mean Platelet Volume 12.5 H Neutrophils % 18.7 L Lymphocytes % 45.4 Monocytes % 21.5 H Eosinophils % 13.8 H Basophils % 0.4 Nucleated Red Blood Cells % 0.4 H Neutrophils # (Manual) 0.9 L Lymphocytes # 2.2 Monocytes # 1.0 H Eosinophils # 0.7 H Basophils # 0.0 Nucleated Red Blood Cells # 0.0 Sodium Level 146 H Potassium Level 3.3 L Chloride Level 107 Carbon Dioxide Level 24 Anion Gap 18 H Blood Urea Nitrogen 10 Creatinine 1.03 Glucose Level 77 Calcium Level 9.5 Magnesium Level 2.1 Total Bilirubin 0.0 L Direct Bilirubin 0.00 Indirect Bilirubin 0.0 Aspartate Amino Transf (AST/SGOT) 33 Alanine Aminotransferase (ALT/SGPT) 50 Alkaline Phosphatase 67 Total Protein 8.0 Albumin 3.2 L Globulin 4.80 H Albumin/Globulin Ratio 0.66 Medications Medications Current Medications Ondansetron HCl (Zofran Inj) 4 mg Q6H PRN IV NAUSEA AND/OR VOMITING; Start at 23:30 Acetaminophen (Tylenol Tab) 650 mg Q6H PRN PO PAIN LEVEL 1-3 OR FEVER Last administered on 03/21/17 03:14; Admin Dose 650 MG; Start 03/20/17 at 23:30 Morphine Sulfate (morphine) 2 mg Q4H PRN IV PAIN LEVEL 7-10 Last administered on 03/23/17 15:29; Admin Dose 2 MG; Start 03/20/17 at 23:30 Famotidine (Pepcid Iv) 20 mg Q12 IV Last administered on 03/29/17 07:46; Admin Dose 20 MG; Start 03/21/17 at 09:00 Enoxaparin Sodium (Lovenox) 30 mg DAILY SC Last administered on 03/29/17 07:53 ; Admin Dose 30 MG; Start 03/21/17 at 09:00 Collagenase 1 applic 1 applic PRN PRN TOP SOILNG; Start 03/22/17 at 16:15 Caspofungin/ Sodium Chloride (Cancidas/NS) 250 ml @ 250 mls/hr Q24H IVPB Last administered on 03/28/17 16:50; Admin Dose 250 MLS/HR; Start 03/24/17 at 16:00 Mineral Oil (Mineral Oil) 50 ml Q8 GTB Last administered on 03/29/17 05:27; Admin Dose 50 ML; Start 03/23/17 at 15:00 Amlodipine Besylate (Norvasc) 10 mg DAILY GTB Last administered on 03/29/17 07 :47; Admin Dose 10 MG; Start 03/24/17 at 09:00 Hydralazine HCl 20 mg 20 mg Q6H PRN IV FOR SBP>160 Last administered on 00:20; Admin Dose 20 MG; Start 03/23/17 at 18:30 Potassium Chloride/Dextrose/ Sod Cl (D5-1/2ns + KCl 40 Meq) 1,000 ml @ 70 mls/ hr [id number] IV Last administered on 03/29/17 05:26; Admin Dose 70 MLS/HR; Start 03/27/17 at 11:00 Metoclopramide HCl (Reglan) 10 mg Q8 IV Last administered on 03/29/17 05:27; Admin Dose 10 MG; Start 03/27/17 at 15:30 RESHMA GOYAL NP Mar 29, 2017 13:09
[2017-03-29] MEDS ORDERED: VITAMIN A & D 5 GM OINT PACKET TOP ONE (13:53)
--- NOTE | 2017-03-29 14:57 | PN ---
Date/Time of Note Date/Time of Note DATE: 03/29/17 TIME: 14:39 Assessment/Plan VTE Prophylaxis VTE Prophylaxis Intervention: LMWH Lines/Catheters IV [facility]ter Type (from [facility] Peripheral IV Urinary Cath still in place: Yes Reason Cath still needed: pres ulcer contaminated by urine, other (indicate) Assessment/Plan Assessment/Plan 71-year-old male with sepsis due to urinary tract infection and pneumonia, advanced dementia and ventilator dependent respiratory failure, has been on G- tube feeding at long term, transferred because of vomiting. CT scan was suggestive of a small bowel obstruction, has revealed extensive stool in the whole colon from cecum to the site of the colostomy, my opinion this could have caused vomiting and appearance of small bowel obstruction, a surgical consult my strategy IS TO clear the whole colon from the stool none surgically to relieve the obstruction but so for just slight success. Continue to give mineral oil through G-tube and clamp it for 5 hours and unclamp it for 3 hours. As was mentioned yesterday this patient is very high risk and with the situation that he is in I do not see any indication for surgical approach to this fecal impaction. Subjective 24 Hr Interval Summary Free Text/Dictation Patient nonverbal and nonresponsive. On the ventilator. per Documented chart patient has had one bowel movement but I am not sure if this is a per rectum or via colostomy bag. Exam/Review of Systems Vital Signs Vitals Vital Signs Date Time Temp Pulse Resp B/P Pulse Ox O2 Delivery O2 Flow Rate FiO2 03/29/17 13:59 45 20 99 30 03/29/17 11:49 98.7 174/90 03/26/17 04:00 Mechanical Ventilator Trach Collar Intake and Output 03/28/17 03/28/17 03/29/17 15:00 23:00 07:00 Intake Total 250 ml 1150 ml Output Total 1300 ml 850 ml Balance -1050 ml 300 ml Exam Nonresponsive nonverbal. The ventilator through tracheostomy. G.TUBE is connected to intermittent suction there is 200 bilious liquid in the back but not sure since when this has accumulated. Vital signs stable afebrile, no leukocytosis. Abdomen slightly distended but basically soft no guarding. Bowel sound 2+/4+. Results Result Diagram: 03/29/17 0604 03/29/17 0604 Results 24 hrs Laboratory Tests Test 03/29/17 06:04 White Blood Count 4.8 Red Blood Count 3.85 L Hemoglobin 11.4 L Hematocrit 33.1 L Mean Corpuscular Volume 86.0 Mean Corpuscular Hemoglobin 29.6 Mean Corpuscular Hemoglobin Concent 34.4 Red Cell Distribution Width 17.1 H Platelet Count 281 Mean Platelet Volume 12.5 H Neutrophils % 18.7 L Lymphocytes % 45.4 Monocytes % 21.5 H Eosinophils % 13.8 H Basophils % 0.4 Nucleated Red Blood Cells % 0.4 H Neutrophils # (Manual) 0.9 L Lymphocytes # 2.2 Monocytes # 1.0 H Eosinophils # 0.7 H Basophils # 0.0 Nucleated Red Blood Cells # 0.0 Sodium Level 146 H Potassium Level 3.3 L Chloride Level 107 Carbon Dioxide Level 24 Anion Gap 18 H Blood Urea Nitrogen 10 Creatinine 1.03 Glucose Level 77 Calcium Level 9.5 Magnesium Level 2.1 Total Bilirubin 0.0 L Direct Bilirubin 0.00 Indirect Bilirubin 0.0 Aspartate Amino Transf (AST/SGOT) 33 Alanine Aminotransferase (ALT/SGPT) 50 Alkaline Phosphatase 67 Total Protein 8.0 Albumin 3.2 L Globulin 4.80 H Albumin/Globulin Ratio 0.66 Medications Medications Current Medications Ondansetron HCl (Zofran Inj) 4 mg Q6H PRN IV NAUSEA AND/OR VOMITING; Start at 23:30 Acetaminophen (Tylenol Tab) 650 mg Q6H PRN PO PAIN LEVEL 1-3 OR FEVER Last administered on 03/21/17 03:14; Admin Dose 650 MG; Start 03/20/17 at 23:30 Morphine Sulfate (morphine) 2 mg Q4H PRN IV PAIN LEVEL 7-10 Last administered on 03/23/17 15:29; Admin Dose 2 MG; Start 03/20/17 at 23:30 Famotidine (Pepcid Iv) 20 mg Q12 IV Last administered on 03/29/17 07:46; Admin Dose 20 MG; Start 03/21/17 at 09:00 Enoxaparin Sodium (Lovenox) 30 mg DAILY SC Last administered on 03/29/17 07:53 ; Admin Dose 30 MG; Start 03/21/17 at 09:00 Collagenase 1 applic 1 applic PRN PRN TOP SOILNG; Start 03/22/17 at 16:15 Caspofungin/ Sodium Chloride (Cancidas/NS) 250 ml @ 250 mls/hr Q24H IVPB Last administered on 03/28/17 16:50; Admin Dose 250 MLS/HR; Start 03/24/17 at 16:00 ; Stop 03/30/17 at 06:00 Mineral Oil (Mineral Oil) 50 ml Q8 GTB Last administered on 03/29/17 05:27; Admin Dose 50 ML; Start 03/23/17 at 15:00 Amlodipine Besylate (Norvasc) 10 mg DAILY GTB Last administered on 03/29/17 07 :47; Admin Dose 10 MG; Start 03/24/17 at 09:00 Hydralazine HCl 20 mg 20 mg Q6H PRN IV FOR SBP>160 Last administered on 00:20; Admin Dose 20 MG; Start 03/23/17 at 18:30 Potassium Chloride/Dextrose/ Sod Cl (D5-1/2ns + KCl 40 Meq) 1,000 ml @ 70 mls/ hr [id number] IV Last administered on 03/29/17 05:26; Admin Dose 70 MLS/HR; Start 03/27/17 at 11:00 Metoclopramide HCl (Reglan) 10 mg Q8 IV Last administered on 03/29/17 05:27; Admin Dose 10 MG; Start 03/27/17 at 15:30 VANIA MAE MD Mar 29, 2017 14:57
--- NOTE | 2017-03-29 16:01 | PN ---
Date/Time of Note Date/Time of Note DATE: 03/29/17 TIME: 15:53 Assessment/Plan VTE Prophylaxis VTE Prophylaxis Intervention: SCD's Lines/Catheters IV Catheter Type (from [facility]): Peripheral IV Urinary Cath still in place: Yes Reason Cath still needed: urinary retention Assessment/Plan Chief Complaint/Hosp Course Patient remains bradycardic, continue on bowel regimen with minimal colostomy output. Assessment/Plan -SBO, Dr. Gay is swallowing in general surgery consultation. Continue IV fluids. General Accounting Manager consult regarding possible TPN recommendations. -Sepsis secondary to urinary tract infection an possible pneumonia. Continue broad-spectrum antibiotics. Dr. Almazan is following an infection disease consultation. -Intractable nausea and vomiting, rule out gastric outlet obstruction. Dr. Pryor is following in gastroenterology consultation. -Colostomy. -Hyperkalemia secondary to dehydration, resolved. -Ventilator-dependent respiratory failure. Dr. Saenz is following in pulmonology consultation. -Subdural hematoma with chronic encephalopathy. -Chronic obstructive pulmonary disease. -Dysphagia with G-tube. Further recommendations based on clinical course. Plan of care discussed with Dr. Meeks. Problems: Exam/Review of Systems Vital Signs Vitals Vital Signs Date Time Temp Pulse Resp B/P Pulse Ox O2 Delivery O2 Flow Rate FiO2 03/29/17 15:35 49 20 100 30 03/29/17 15:16 98.8 150/77 03/26/17 04:00 Mechanical Ventilator Trach Collar Intake and Output 03/28/17 03/28/17 03/29/17 15:00 23:00 07:00 Intake Total 250 ml 1150 ml Output Total 1300 ml 850 ml Balance -1050 ml 300 ml Exam Constitutional: frail, non-verbal Head: normocephalic Neck: other (Tracheostomy), supple Respiratory: diminished breath sounds Cardiovascular: nl pulses Gastrointestinal: other (G-tube), soft, colostomy Extremities: normal pulses Skin: other (Multiple wounds) Results Result Diagram: 03/29/17 0604 03/29/17 0604 Results 24 hrs Laboratory Tests Test 03/29/17 06:04 White Blood Count 4.8 Red Blood Count 3.85 L Hemoglobin 11.4 L Hematocrit 33.1 L Mean Corpuscular Volume 86.0 Mean Corpuscular Hemoglobin 29.6 Mean Corpuscular Hemoglobin Concent 34.4 Red Cell Distribution Width 17.1 H Platelet Count 281 Mean Platelet Volume 12.5 H Neutrophils % 18.7 L Lymphocytes % 45.4 Monocytes % 21.5 H Eosinophils % 13.8 H Basophils % 0.4 Nucleated Red Blood Cells % 0.4 H Neutrophils # (Manual) 0.9 L Lymphocytes # 2.2 Monocytes # 1.0 H Eosinophils # 0.7 H Basophils # 0.0 Nucleated Red Blood Cells # 0.0 Sodium Level 146 H Potassium Level 3.3 L Chloride Level 107 Carbon Dioxide Level 24 Anion Gap 18 H Blood Urea Nitrogen 10 Creatinine 1.03 Glucose Level 77 Calcium Level 9.5 Magnesium Level 2.1 Total Bilirubin 0.0 L Direct Bilirubin 0.00 Indirect Bilirubin 0.0 Aspartate Amino Transf (AST/SGOT) 33 Alanine Aminotransferase (ALT/SGPT) 50 Alkaline Phosphatase 67 Total Protein 8.0 Albumin 3.2 L Globulin 4.80 H Albumin/Globulin Ratio 0.66 Medications Medications Current Medications Ondansetron HCl (Zofran Inj) 4 mg Q6H PRN IV NAUSEA AND/OR VOMITING; Start at 23:30 Acetaminophen (Tylenol Tab) 650 mg Q6H PRN PO PAIN LEVEL 1-3 OR FEVER Last administered on 03/21/17 03:14; Admin Dose 650 MG; Start 03/20/17 at 23:30 Morphine Sulfate (morphine) 2 mg Q4H PRN IV PAIN LEVEL 7-10 Last administered on 03/23/17 15:29; Admin Dose 2 MG; Start 03/20/17 at 23:30 Famotidine (Pepcid Iv) 20 mg Q12 IV Last administered on 03/29/17 07:46; Admin Dose 20 MG; Start 03/21/17 at 09:00 Enoxaparin Sodium (Lovenox) 30 mg DAILY SC Last administered on 03/29/17 07:53 ; Admin Dose 30 MG; Start 03/21/17 at 09:00 Collagenase 1 applic 1 applic PRN PRN TOP SOILNG; Start 03/22/17 at 16:15 Caspofungin/ Sodium Chloride (Cancidas/NS) 250 ml @ 250 mls/hr Q24H IVPB Last administered on 03/28/17 16:50; Admin Dose 250 MLS/HR; Start 03/24/17 at 16:00 ; Stop 03/30/17 at 06:00 Mineral Oil (Mineral Oil) 50 ml Q8 GTB Last administered on 03/29/17 14:49; Admin Dose 50 ML; Start 03/23/17 at 15:00 Amlodipine Besylate (Norvasc) 10 mg DAILY GTB Last administered on 03/29/17 07 :47; Admin Dose 10 MG; Start 03/24/17 at 09:00 Hydralazine HCl 20 mg 20 mg Q6H PRN IV FOR SBP>160 Last administered on 00:20; Admin Dose 20 MG; Start 03/23/17 at 18:30 Potassium Chloride/Dextrose/ Sod Cl (D5-1/2ns + KCl 40 Meq) 1,000 ml @ 70 mls/ hr [id number] IV Last administered on 03/29/17 05:26; Admin Dose 70 MLS/HR; Start 03/27/17 at 11:00 Metoclopramide HCl (Reglan) 10 mg Q8 IV Last administered on 03/29/17 14:51; Admin Dose 10 MG; Start 03/27/17 at 15:30 AMY MORAN Mar 29, 2017 16:01
--- NOTE | 2017-03-29 16:14 | CONS ---
Date/Time of Note Date/Time of Note DATE: 03/29/17 TIME: 16:13 Consult Date/Type/Reason Admit Date/Time Mar 20, 2017 at 23:37 Initial Consult Date 03/21/17 Type of Consultation: CARDIOLOGY Subjective Discussed with stability was reviewed. Patient remains nonverbal status with s/ p tracheostomy on the vent. rhythm was reviewed. pt still with mostly marked sinus bradycardia, HR as low as 40. She remains nonverbal and is unable to provide any history to me. objective: General: s/p trach. thin man HEENT: NC/AT. pupils are equal. round. NECK: NO JVD. no stridor. s/p trach CV: bradycardic. systolic murmur; no gallop or rubs. PULM: no wheezing or rhonchi. GI: SOFT, NT, ND, no rebound or guarding Extremity: trace B/L LE edema. no clubbing. neuro: does not respond to or follow commands Psych: calm rectal: deferred : normal ECHO REVIEWED: 1. Normal left ventricular systolic function. Normal left ventricular cavity size. Mild concentric left ventricular hypertrophy. Ejection fraction is visually estimated at 65 %. 2. Mitral valve leaflets appear mildly thickened. Mild mitral annular calcification. Trace mitral regurgitation. 3. No significant aortic stenosis or insufficiency. Aortic cusps appear mildly calcified. 4. Normal appearance of the tricuspid valve. Unable to obtain RVSP due to minimal presence of tricuspid regurgitation. Objective Vital Signs Date Time Temp Pulse Resp B/P Pulse Ox O2 Delivery O2 Flow Rate FiO2 03/29/17 15:35 49 20 100 30 03/29/17 15:16 98.8 150/77 03/26/17 04:00 Mechanical Ventilator Trach Collar Intake and Output 03/28/17 03/28/17 03/29/17 15:00 23:00 07:00 Intake Total 250 ml 1150 ml Output Total 1300 ml 850 ml Balance -1050 ml 300 ml Results/Medications Result Diagram: 03/29/17 0604 03/29/17 0604 Results 24 hrs Laboratory Tests Test 03/29/17 06:04 White Blood Count 4.8 Red Blood Count 3.85 L Hemoglobin 11.4 L Hematocrit 33.1 L Mean Corpuscular Volume 86.0 Mean Corpuscular Hemoglobin 29.6 Mean Corpuscular Hemoglobin Concent 34.4 Red Cell Distribution Width 17.1 H Platelet Count 281 Mean Platelet Volume 12.5 H Neutrophils % 18.7 L Lymphocytes % 45.4 Monocytes % 21.5 H Eosinophils % 13.8 H Basophils % 0.4 Nucleated Red Blood Cells % 0.4 H Neutrophils # (Manual) 0.9 L Lymphocytes # 2.2 Monocytes # 1.0 H Eosinophils # 0.7 H Basophils # 0.0 Nucleated Red Blood Cells # 0.0 Sodium Level 146 H Potassium Level 3.3 L Chloride Level 107 Carbon Dioxide Level 24 Anion Gap 18 H Blood Urea Nitrogen 10 Creatinine 1.03 Glucose Level 77 Calcium Level 9.5 Magnesium Level 2.1 Total Bilirubin 0.0 L Direct Bilirubin 0.00 Indirect Bilirubin 0.0 Aspartate Amino Transf (AST/SGOT) 33 Alanine Aminotransferase (ALT/SGPT) 50 Alkaline Phosphatase 67 Total Protein 8.0 Albumin 3.2 L Globulin 4.80 H Albumin/Globulin Ratio 0.66 Medications Current Medications Ondansetron HCl (Zofran Inj) 4 mg Q6H PRN IV NAUSEA AND/OR VOMITING; Start at 23:30 Acetaminophen (Tylenol Tab) 650 mg Q6H PRN PO PAIN LEVEL 1-3 OR FEVER Last administered on 03/21/17 03:14; Admin Dose 650 MG; Start 03/20/17 at 23:30 Morphine Sulfate (morphine) 2 mg Q4H PRN IV PAIN LEVEL 7-10 Last administered on 03/23/17 15:29; Admin Dose 2 MG; Start 03/20/17 at 23:30 Famotidine (Pepcid Iv) 20 mg Q12 IV Last administered on 03/29/17 07:46; Admin Dose 20 MG; Start 03/21/17 at 09:00 Enoxaparin Sodium (Lovenox) 30 mg DAILY SC Last administered on 03/29/17 07:53 ; Admin Dose 30 MG; Start 03/21/17 at 09:00 Collagenase 1 applic 1 applic PRN PRN TOP SOILNG; Start 03/22/17 at 16:15 Caspofungin/ Sodium Chloride (Cancidas/NS) 250 ml @ 250 mls/hr Q24H IVPB Last administered on 03/28/17 16:50; Admin Dose 250 MLS/HR; Start 03/24/17 at 16:00 ; Stop 03/30/17 at 06:00 Mineral Oil (Mineral Oil) 50 ml Q8 GTB Last administered on 03/29/17 14:49; Admin Dose 50 ML; Start 03/23/17 at 15:00 Amlodipine Besylate (Norvasc) 10 mg DAILY GTB Last administered on 03/29/17 07 :47; Admin Dose 10 MG; Start 03/24/17 at 09:00 Hydralazine HCl 20 mg 20 mg Q6H PRN IV FOR SBP>160 Last administered on 00:20; Admin Dose 20 MG; Start 03/23/17 at 18:30 Potassium Chloride/Dextrose/ Sod Cl (D5-1/2ns + KCl 40 Meq) 1,000 ml @ 70 mls/ hr [id number] IV Last administered on 03/29/17 05:26; Admin Dose 70 MLS/HR; Start 03/27/17 at 11:00 Metoclopramide HCl (Reglan) 10 mg Q8 IV Last administered on 03/29/17 14:51; Admin Dose 10 MG; Start 03/27/17 at 15:30 Assessment/Plan Chief Complaint/Hosp Course 1. Arrhythmia: improved now with correction of electrolytes. 2. hypoxemic respiratory failure: Status with tracheostomy vent dependent 3. History of hypertension 4. anemia. 5. encephalopathy 6. hypo K, 7. SBO Recommendations: correct lytes including K and Mg prn vent support and trach care as per PULM tele monitoring for now. GI work up and treatment as per IM ECG today Thank you Mahogany morales MD [facility] WITH [facility] Problems: MAHOGANY MORALES MD Mar 29, 2017 16:14
[2017-03-29] MEDS: CASPOFUNGIN 50 MG in SOD CHLORIDE 0.9% 250 ML IVPB SCH (16:53)
--- NOTE | 2017-03-29 18:13 | RADRPT ---
Vent Rate: 53 bpm RR Interval: 0 msec AR Interval: 188 msec QRS Duration: 86 msec QT Interval: 478 msec QTC Interval: 448 msec P-R-T [place]: 77 - 72 - 72 degrees Sinus bradycardia Septal infarct , age undetermined Abnormal ECG Electronically Signed By: Maynor Broderick [id number]
--- NOTE | 2017-03-29 18:19 | CONS ---
Date/Time of Note Date/Time of Note DATE: 03/29/17 TIME: 18:15 Assessment/Plan Assessment/Plan Additional Assessment/Plan Chart reviewed and to speak to family members about goals of care Sepsis secondary to urinary tract infection. Possible pneumonia. Continue broad-spectrum antibiotics. Dr. Almazan, was asked to see patient in Infectious Disease consultation. We will obtain urine, blood and sputum cultures. Small bowel obstruction . Ventilator-dependent respiratory failure. Continue bronchodilators and ventilatory support. Subdural hematoma with chronic encephalopathy. Encephalopathy We will ask social work service to schedule family conference tomorrow. Full palliative care note to follow Consultation Date/Type/Reason Admit Date/Time Mar 20, 2017 at 23:37 Constitutional: requiring IVF, requiring O2 Social History Smoking Status: Unknown if ever smoked Exam/Review of Systems Vital Signs Vitals Vital Signs Date Time Temp Pulse Resp B/P Pulse Ox O2 Delivery O2 Flow Rate FiO2 03/29/17 16:25 45 03/29/17 15:35 20 100 30 03/29/17 15:16 98.8 150/77 03/26/17 04:00 Mechanical Ventilator Trach Collar Intake and Output 03/28/17 03/28/17 03/29/17 15:00 23:00 07:00 Intake Total 250 ml 1150 ml Output Total 1300 ml 850 ml Balance -1050 ml 300 ml Results Result Diagram: 03/29/17 0604 03/29/17 0604 Results 24 hrs Laboratory Tests Test 03/29/17 06:04 White Blood Count 4.8 Red Blood Count 3.85 L Hemoglobin 11.4 L Hematocrit 33.1 L Mean Corpuscular Volume 86.0 Mean Corpuscular Hemoglobin 29.6 Mean Corpuscular Hemoglobin Concent 34.4 Red Cell Distribution Width 17.1 H Platelet Count 281 Mean Platelet Volume 12.5 H Neutrophils % 18.7 L Lymphocytes % 45.4 Monocytes % 21.5 H Eosinophils % 13.8 H Basophils % 0.4 Nucleated Red Blood Cells % 0.4 H Neutrophils # (Manual) 0.9 L Lymphocytes # 2.2 Monocytes # 1.0 H Eosinophils # 0.7 H Basophils # 0.0 Nucleated Red Blood Cells # 0.0 Sodium Level 146 H Potassium Level 3.3 L Chloride Level 107 Carbon Dioxide Level 24 Anion Gap 18 H Blood Urea Nitrogen 10 Creatinine 1.03 Glucose Level 77 Calcium Level 9.5 Magnesium Level 2.1 Total Bilirubin 0.0 L Direct Bilirubin 0.00 Indirect Bilirubin 0.0 Aspartate Amino Transf (AST/SGOT) 33 Alanine Aminotransferase (ALT/SGPT) 50 Alkaline Phosphatase 67 Total Protein 8.0 Albumin 3.2 L Globulin 4.80 H Albumin/Globulin Ratio 0.66 Medications Medications Current Medications Ondansetron HCl (Zofran Inj) 4 mg Q6H PRN IV NAUSEA AND/OR VOMITING; Start at 23:30 Acetaminophen (Tylenol Tab) 650 mg Q6H PRN PO PAIN LEVEL 1-3 OR FEVER Last administered on 03/21/17 03:14; Admin Dose 650 MG; Start 03/20/17 at 23:30 Morphine Sulfate (morphine) 2 mg Q4H PRN IV PAIN LEVEL 7-10 Last administered on 03/23/17 15:29; Admin Dose 2 MG; Start 03/20/17 at 23:30 Famotidine (Pepcid Iv) 20 mg Q12 IV Last administered on 03/29/17 07:46; Admin Dose 20 MG; Start 03/21/17 at 09:00 Enoxaparin Sodium (Lovenox) 30 mg DAILY SC Last administered on 03/29/17 07:53 ; Admin Dose 30 MG; Start 03/21/17 at 09:00 Collagenase 1 applic 1 applic PRN PRN TOP SOILNG; Start 03/22/17 at 16:15 Caspofungin/ Sodium Chloride (Cancidas/NS) 250 ml @ 250 mls/hr Q24H IVPB Last administered on 03/29/17 16:53; Admin Dose 250 MLS/HR; Start 03/24/17 at 16:00 ; Stop 03/30/17 at 06:00 Mineral Oil (Mineral Oil) 50 ml Q8 GTB Last administered on 03/29/17 14:49; Admin Dose 50 ML; Start 03/23/17 at 15:00 Amlodipine Besylate (Norvasc) 10 mg DAILY GTB Last administered on 03/29/17 07 :47; Admin Dose 10 MG; Start 03/24/17 at 09:00 Hydralazine HCl 20 mg 20 mg Q6H PRN IV FOR SBP>160 Last administered on 00:20; Admin Dose 20 MG; Start 03/23/17 at 18:30 Potassium Chloride/Dextrose/ Sod Cl (D5-1/2ns + KCl 40 Meq) 1,000 ml @ 70 mls/ hr [id number] IV Last administered on 03/29/17 05:26; Admin Dose 70 MLS/HR; Start 03/27/17 at 11:00 Metoclopramide HCl (Reglan) 10 mg Q8 IV Last administered on 03/29/17 14:51; Admin Dose 10 MG; Start 03/27/17 at 15:30 FARIDEH MARR Mar 29, 2017 18:19
[2017-03-30] VITALS (24 sets, daily range): BP systolic 148–176; BP diastolic 72–106; PULSE 40–73; RESP 18–26
[2017-03-30] MEDS: MINERAL OIL 30ML CUP GTB SCH ×3 (05:35→21:21)
[2017-03-30] MEDS: METOCLOPRAMIDE 10 MG INJ IV SCH ×3 (05:35→21:21)
--- NOTE | 2017-03-30 08:32 | CONS ---
Date/Time of Note Date/Time of Note DATE: 03/30/17 TIME: 08:30 Consult Date/Type/Reason Admit Date/Time Mar 20, 2017 at 23:37 Initial Consult Date 03/21/17 Type of Consultation: CARDIOLOGY Subjective Discussed with stability was reviewed. Patient remains nonverbal s/p tracheostomy on the vent. rhythm was reviewed. pt is still mostly in marked sinus bradycardia, HR as low as 40s with occasional PVC. She remains nonverbal and is unable to provide any history to me. objective: General: s/p trach. thin man HEENT: NC/AT. pupils are equal. round. NECK: NO JVD. no stridor. s/p trach CV: bradycardic. systolic murmur; no gallop or rubs. PULM: no wheezing or rhonchi. GI: SOFT, NT, ND, no rebound or guarding Extremity: trace B/L LE edema. no clubbing. neuro: does not respond to or follow commands Psych: calm rectal: deferred : normal ECG reviewed: sinus rl ECHO REVIEWED: 1. Normal left ventricular systolic function. Normal left ventricular cavity size. Mild concentric left ventricular hypertrophy. Ejection fraction is visually estimated at 65 %. 2. Mitral valve leaflets appear mildly thickened. Mild mitral annular calcification. Trace mitral regurgitation. 3. No significant aortic stenosis or insufficiency. Aortic cusps appear mildly calcified. 4. Normal appearance of the tricuspid valve. Unable to obtain RVSP due to minimal presence of tricuspid regurgitation. Objective Vital Signs Date Time Temp Pulse Resp B/P Pulse Ox O2 Delivery O2 Flow Rate FiO2 03/30/17 07:15 56 20 99 30 03/30/17 06:54 98.0 176/92 Intake and Output 03/29/17 03/29/17 03/30/17 15:00 23:00 07:00 Intake Total 900 ml Output Total 1000 ml Balance -100 ml Results/Medications Result Diagram: 03/29/17 0604 03/29/17 0604 Medications Current Medications Ondansetron HCl (Zofran Inj) 4 mg Q6H PRN IV NAUSEA AND/OR VOMITING; Start at 23:30 Acetaminophen (Tylenol Tab) 650 mg Q6H PRN PO PAIN LEVEL 1-3 OR FEVER Last administered on 03/21/17t 03:14; Admin Dose 650 MG; Start 03/20/17 at 23:30 Morphine Sulfate (morphine) 2 mg Q4H PRN IV PAIN LEVEL 7-10 Last administered on 03/23/17 15:29; Admin Dose 2 MG; Start 03/20/17 at 23:30 Famotidine (Pepcid Iv) 20 mg Q12 IV Last administered on 03/29/17 21:18; Admin Dose 20 MG; Start 03/21/17 at 09:00 Enoxaparin Sodium (Lovenox) 30 mg DAILY SC Last administered on 03/29/17 07:53 ; Admin Dose 30 MG; Start 03/21/17 at 09:00 Collagenase (Santyl) 1 applic PRN PRN TOP SOILNG; Start 03/22/17 at 16:15 Mineral Oil (Mineral Oil) 50 ml Q8 GTB Last administered on 03/30/17 05:35; Admin Dose 50 ML; Start 03/23/17 at 15:00 Amlodipine Besylate (Norvasc) 10 mg DAILY GTB Last administered on 03/29/17 07 :47; Admin Dose 10 MG; Start 03/24/17 at 09:00 Hydralazine HCl 20 mg 20 mg Q6H PRN IV FOR SBP>160 Last administered on 00:20; Admin Dose 20 MG; Start 03/23/17 at 18:30 Potassium Chloride/Dextrose/ Sod Cl (D5-1/2ns + KCl 40 Meq) 1,000 ml @ 70 mls/ hr [id number] IV Last administered on 03/29/17 21:18; Admin Dose 70 MLS/HR; Start 03/27/17 at 11:00 Metoclopramide HCl (Reglan) 10 mg Q8 IV Last administered on 03/30/17 05:35; Admin Dose 10 MG; Start 03/27/17 at 15:30 Assessment/Plan Chief Complaint/Hosp Course 1. Arrhythmia:/ bradycardia: appears asymptomatic so far with no evidence of high degree AV block 2. hypoxemic respiratory failure: Status post tracheostomy and vent dependent 3. History of hypertension 4. anemia. 5. encephalopathy 6. hypo K, 7. SBO Recommendations: correct lytes including K and Mg prn vent support and trach care as per PULM tele monitoring for now. GI work up and treatment as per IM Thank you Mahogany morales MD FAC Problems: MAHOGANY MORALES MD Mar 30, 2017 08:32
[2017-03-30 08:41] LABS: ABNORMAL IP MESSAGE 1; BASOPHILS % 0.9 % (0.0-2.0); EOSINOPHILS # 0.7 10^3/ul (0.0-0.5); EOSINOPHILS % 14.3 % (0.0-7.0); HEMATOCRIT 32.4 % (42.0-52.0); HEMOGLOBIN 10.8 g/dl (14.0-18.0); LYMPHOCYTES # 2.2 10^3/ul (0.8-2.9); LYMPHOCYTES % 47.3 % (15.0-51.0); MEAN CORPUSCULAR HEMOGLOBIN 29.8 pg (29.0-33.0); MEAN CORPUSCULAR HGB CONC 33.3 g/dl (32.0-37.0); MEAN CORPUSCULAR VOLUME 89.3 fl (82.0-101.0); MONOCYTE # 0.9 10^3/ul (0.3-0.9); MONOCYTES % 19.8 % (0.0-11.0); NEUTROPHILS % 17.5 % (39.0-77.0); NUCLEATED RED BLOOD CELLS% 0.4 /100WBC (0.0-0.0); PLATELET COUNT 131 10^3/UL (140-415); POSITIVE DIFF @See below; RED BLOOD COUNT 3.63 10^6/ul (4.70-6.10); RED CELL DISTRIBUTION WIDTH 17.7 % (11.5-14.5); WHITE BLOOD COUNT 4.6 10^3/ul (4.8-10.8)
[2017-03-30 09:11] LABS: CALCIUM 9.2 mg/dl (8.4-10.2); CREATININE 0.99 mg/dl (0.61-1.24); POTASSIUM 3.8 mmol/L (3.5-5.1)
[2017-03-30] MEDS: FAMOTIDINE 20 MG INJ IV SCH ×2 (09:29→21:20)
[2017-03-30] MEDS: ENOXAPARIN 30 MG/0.3 ML SYG SC SCH (09:30)
[2017-03-30] MEDS: D5W-0.45 NACL + KCL 40 MEQ 1,000 ML IV SCH (09:37)
[2017-03-30] MEDS: AMLODIPINE 10 MG TAB GTB SCH (09:37)
--- NOTE | 2017-03-30 13:22 | PN ---
Date/Time of Note Date/Time of Note DATE: 03/30/17 TIME: 13:09 Assessment/Plan VTE Prophylaxis VTE Prophylaxis Intervention: LMWH Lines/Catheters IV [facility]ter Type (from [facility] Peripheral IV Urinary Cath still in place: Yes Reason Cath still needed: pres ulcer contaminated by urine, other (indicate) ( Also for control of I and O Chaudhari catheter is needed.) Assessment/Plan Assessment/Plan 71-year-old male with advanced encephalopathy is nonverbal and is on ventilator for chronic respiratory failure, was admitted for sepsis and vomiting, CT scan suggestive of a small bowel obstruction also showed presence of extensive amount of stool throughout the colon from cecum to the site of colostomy, and I believe this is a cause of vomiting. Surgical goal is to try to make him pass his stool and to clean the whole colon from impacted stool and hopefully by this obstruction would be relieved. So for he has passed a little bit amount of stool,. Today I am going to try again 500 cc of GoLYTELY through G-tube and keep it clamped for 5 hours and then re-connected back to suction, this is because the NG tube has not had any drainage in the past 24 hours and this encourages us to give him some GoLYTELY. Subjective 24 Hr Interval Summary Free Text/Dictation Unresponsive. On the ventilator FiO2 30% Has been recorded 1 bowel movement since yesterday, but they are N Liyah states it has been a little bit amount. There has been 0 cc drainage from G-tube in 24 hours. Exam/Review of Systems Vital Signs Vitals Vital Signs Date Time Temp Pulse Resp B/P Pulse Ox O2 Delivery O2 Flow Rate FiO2 03/30/17 12:41 63 03/30/17 12:09 98.0 20 164/77 96 03/30/17 09:43 30 Intake and Output 03/29/17 03/29/17 03/30/17 15:00 23:00 07:00 Intake Total 900 ml Output Total 1000 ml Balance -100 ml Exam Vital signs stable afebrile, UBC 4600. Patient unresponsive to verbal and tactile stimuli. Abdomen is mildly distended , which is soft, bowel sounds 2+/4+. Results Result Diagram: 03/30/17 0822 03/30/17 0822 Results 24 hrs Laboratory Tests Test 03/30/17 08:22 White Blood Count 4.6 L Red Blood Count 3.63 L Hemoglobin 10.8 L Hematocrit 32.4 L Mean Corpuscular Volume 89.3 Mean Corpuscular Hemoglobin 29.8 Mean Corpuscular Hemoglobin Concent 33.3 Red Cell Distribution Width 17.7 H Platelet Count 131 #L Mean Platelet Volume Neutrophils % 17.5 L Lymphocytes % 47.3 Monocytes % 19.8 H Eosinophils % 14.3 H Basophils % 0.9 Nucleated Red Blood Cells % 0.4 H Neutrophils # (Manual) 0.8 L Lymphocytes # 2.2 Monocytes # 0.9 Eosinophils # 0.7 H Basophils # 0.0 Nucleated Red Blood Cells # 0.0 Sodium Level 146 H Potassium Level 3.8 Chloride Level 111 H Carbon Dioxide Level 21 Anion Gap 18 H Blood Urea Nitrogen 8 Creatinine 0.99 Glucose Level 101 Calcium Level 9.2 Medications Medications Current Medications Ondansetron HCl (Zofran Inj) 4 mg Q6H PRN IV NAUSEA AND/OR VOMITING; Start at 23:30 Acetaminophen (Tylenol Tab) 650 mg Q6H PRN PO PAIN LEVEL 1-3 OR FEVER Last administered on 03/21/17 03:14; Admin Dose 650 MG; Start 03/20/17 at 23:30 Morphine Sulfate (morphine) 2 mg Q4H PRN IV PAIN LEVEL 7-10 Last administered on 03/23/17 15:29; Admin Dose 2 MG; Start 03/20/17 at 23:30 Famotidine (Pepcid Iv) 20 mg Q12 IV Last administered on 03/30/17 09:29; Admin Dose 20 MG; Start 03/21/17 at 09:00 Enoxaparin Sodium (Lovenox) 30 mg DAILY SC Last administered on 03/30/17 09:30 ; Admin Dose 30 MG; Start 03/21/17 at 09:00 Collagenase (Santyl) 1 applic PRN PRN TOP SOILNG; Start 03/22/17 at 16:15 Mineral Oil (Mineral Oil) 50 ml Q8 GTB Last administered on 03/30/17 05:35; Admin Dose 50 ML; Start 03/23/17 at 15:00 Amlodipine Besylate (Norvasc) 10 mg DAILY GTB Last administered on 03/30/17 09 :37; Admin Dose 10 MG; Start 03/24/17 at 09:00 Hydralazine HCl 20 mg 20 mg Q6H PRN IV FOR SBP>160 Last administered on 00:20; Admin Dose 20 MG; Start 03/23/17 at 18:30 Potassium Chloride/Dextrose/ Sod Cl (D5-1/2ns + KCl 40 Meq) 1,000 ml @ 70 mls/ hr [id number] IV Last administered on 03/29/17 21:18; Admin Dose 70 MLS/HR; Start 03/27/17 at 11:00 Metoclopramide HCl (Reglan) 10 mg Q8 IV Last administered on 03/30/17 05:35; Admin Dose 10 MG; Start 03/27/17 at 15:30 VANIA MAE MD Mar 30, 2017 13:21
--- NOTE | 2017-03-30 14:03 | CONS ---
Date/Time of Note Date/Time of Note DATE: 03/30/17 TIME: 14:01 Assessment/Plan Assessment/Plan Additional Assessment/Plan Ventilator setting; AC of 20, tidal volume 500, 5, 30% FiO2. Assessment and recommendations; 1. Patient admitted with severe sepsis due to pneumonia. 2. Chronic respiratory failure, vision is chronically ventilator dependent. 3. Advanced dementia. Continue current supportive care. Prognosis is poor. Consultation Date/Type/Reason Admit Date/Time Mar 20, 2017 at 23:37 Initial Consult Date 03/21/17 Type of Consultation: Pulmonary 24 HR Interval Summary Free Text/Dictation Patient condition remains stable. Remains unresponsive. Has remained hemodynamically stable. General exam; elderly male, on ventilator via tracheostomy, currently in no distress. Unresponsive. Exam/Review of Systems Vital Signs Vitals Vital Signs Date Time Temp Pulse Resp B/P Pulse Ox O2 Delivery O2 Flow Rate FiO2 03/30/17 13:13 58 20 98 30 03/30/17 12:09 98.0 164/77 Intake and Output 03/29/17 03/29/17 03/30/17 15:00 23:00 07:00 Intake Total 900 ml Output Total 1000 ml Balance -100 ml Exam HEENT exam; supple neck, no JVD. No lymphadenopathy. Midline trachea. No thyromegaly. Patient is edentulous. Tracheostomy in place with clean insertion site. Chest exam; diminished breath sounds bilaterally. S1-S2 audible, no murmurs. Regular rhythm. Abdomen exam; soft, G-tube in place. Ileostomy in place. Bowel sounds audible. Abdomen is nondistended. Extremity exam; no peripheral edema. ADJUDICATION SPECIALIST exam; patient remains completely unresponsive. Results Result Diagram: 03/30/17 0822 03/30/17 0822 Results 24 hrs Laboratory Tests Test 03/30/17 08:22 White Blood Count 4.6 L Red Blood Count 3.63 L Hemoglobin 10.8 L Hematocrit 32.4 L Mean Corpuscular Volume 89.3 Mean Corpuscular Hemoglobin 29.8 Mean Corpuscular Hemoglobin Concent 33.3 Red Cell Distribution Width 17.7 H Platelet Count 131 #L Mean Platelet Volume Neutrophils % 17.5 L Lymphocytes % 47.3 Monocytes % 19.8 H Eosinophils % 14.3 H Basophils % 0.9 Nucleated Red Blood Cells % 0.4 H Neutrophils # (Manual) 0.8 L Lymphocytes # 2.2 Monocytes # 0.9 Eosinophils # 0.7 H Basophils # 0.0 Nucleated Red Blood Cells # 0.0 Sodium Level 146 H Potassium Level 3.8 Chloride Level 111 H Carbon Dioxide Level 21 Anion Gap 18 H Blood Urea Nitrogen 8 Creatinine 0.99 Glucose Level 101 Calcium Level 9.2 Medications Medications Current Medications Ondansetron HCl (Zofran Inj) 4 mg Q6H PRN IV NAUSEA AND/OR VOMITING; Start at 23:30 Acetaminophen (Tylenol Tab) 650 mg Q6H PRN PO PAIN LEVEL 1-3 OR FEVER Last administered on 03/21/17 03:14; Admin Dose 650 MG; Start 03/20/17 at 23:30 Morphine Sulfate (morphine) 2 mg Q4H PRN IV PAIN LEVEL 7-10 Last administered on 03/23/17 15:29; Admin Dose 2 MG; Start 03/20/17 at 23:30 Famotidine (Pepcid Iv) 20 mg Q12 IV Last administered on 03/30/17 09:29; Admin Dose 20 MG; Start 03/21/17 at 09:00 Enoxaparin Sodium (Lovenox) 30 mg DAILY SC Last administered on 03/30/17 09:30 ; Admin Dose 30 MG; Start 03/21/17 at 09:00 Collagenase (Santyl) 1 applic PRN PRN TOP SOILNG; Start 03/22/17 at 16:15 Mineral Oil (Mineral Oil) 50 ml Q8 GTB Last administered on 03/30/17 05:35; Admin Dose 50 ML; Start 03/23/17 at 15:00 Amlodipine Besylate (Norvasc) 10 mg DAILY GTB Last administered on 03/30/17 09 :37; Admin Dose 10 MG; Start 03/24/17 at 09:00 Hydralazine HCl 20 mg 20 mg Q6H PRN IV FOR SBP>160 Last administered on 00:20; Admin Dose 20 MG; Start 03/23/17 at 18:30 Potassium Chloride/Dextrose/ Sod Cl (D5-1/2ns + KCl 40 Meq) 1,000 ml @ 70 mls/ hr [id number] IV Last administered on 03/29/17 21:18; Admin Dose 70 MLS/HR; Start 03/27/17 at 11:00 Metoclopramide HCl (Reglan) 10 mg Q8 IV Last administered on 03/30/17t 05:35; Admin Dose 10 MG; Start 03/27/17 at 15:30 SHAAN BUTT Mar 30, 2017 14:03
--- NOTE | 2017-03-30 14:10 | CONS ---
Date/Time of Note Date/Time of Note DATE: 03/30/17 TIME: 14:08 Assessment/Plan Assessment/Plan Chief Complaint/Hosp Course SUBJECTIVE DATA: No acute changes overnight, lethargic, noncommunicative, afebrile, nad INDWELLINGS: Trach, PEG, Chaudhari. PHYSICAL EXAMINATION: GENERAL: Fragile, chronically ill-appearing elderly man, who is in no distress. HEENT: Head atraumatic, normocephalic. Sclerae anicteric. Buccal mucosa dry. NECK: Supple. Tracheostomy present. CHEST: Rise symmetrical. Breath sounds diminished at the bases. HEART: S1, S2. ABDOMEN: Soft, bowel sounds present. EXTREMITIES: Without cyanosis. ASSESSMENT: 1. S/p sepsis. 2. Small bowel obstruction secondary to impacted stool in the right colon and transverse colon. 3. S/p healthcare associated pneumonia. 4. S/p urinary tract infection. 5. Chronic encephalopathy. 6. Multiple chronic wounds. PLAN: The patient remains stable. Off abx, continue present care, pending family conference, f/u surgical/pulmonary/GI recommendations DW staff Problems: Consultation Date/Type/Reason Admit Date/Time Mar 20, 2017 at 23:37 Initial Consult Date 03/21/17 Type of Consultation: ID Exam/Review of Systems Vital Signs Vitals Vital Signs Date Time Temp Pulse Resp B/P Pulse Ox O2 Delivery O2 Flow Rate FiO2 03/30/17 13:13 58 20 98 30 03/30/17 12:09 98.0 164/77 Intake and Output 03/29/17 03/29/17 03/30/17 15:00 23:00 07:00 Intake Total 900 ml Output Total 1000 ml Balance -100 ml Results Result Diagram: 03/30/17 0822 03/30/17 0822 Results 24 hrs Laboratory Tests Test 03/30/17 08:22 White Blood Count 4.6 L Red Blood Count 3.63 L Hemoglobin 10.8 L Hematocrit 32.4 L Mean Corpuscular Volume 89.3 Mean Corpuscular Hemoglobin 29.8 Mean Corpuscular Hemoglobin Concent 33.3 Red Cell Distribution Width 17.7 H Platelet Count 131 #L Mean Platelet Volume Neutrophils % 17.5 L Lymphocytes % 47.3 Monocytes % 19.8 H Eosinophils % 14.3 H Basophils % 0.9 Nucleated Red Blood Cells % 0.4 H Neutrophils # (Manual) 0.8 L Lymphocytes # 2.2 Monocytes # 0.9 Eosinophils # 0.7 H Basophils # 0.0 Nucleated Red Blood Cells # 0.0 Sodium Level 146 H Potassium Level 3.8 Chloride Level 111 H Carbon Dioxide Level 21 Anion Gap 18 H Blood Urea Nitrogen 8 Creatinine 0.99 Glucose Level 101 Calcium Level 9.2 Medications Medications Current Medications Ondansetron HCl (Zofran Inj) 4 mg Q6H PRN IV NAUSEA AND/OR VOMITING; Start at 23:30 Acetaminophen (Tylenol Tab) 650 mg Q6H PRN PO PAIN LEVEL 1-3 OR FEVER Last administered on 03/21/17 03:14; Admin Dose 650 MG; Start 03/20/17 at 23:30 Morphine Sulfate (morphine) 2 mg Q4H PRN IV PAIN LEVEL 7-10 Last administered on 03/23/17 15:29; Admin Dose 2 MG; Start 03/20/17 at 23:30 Famotidine (Pepcid Iv) 20 mg Q12 IV Last administered on 03/30/17 09:29; Admin Dose 20 MG; Start 03/21/17 at 09:00 Enoxaparin Sodium (Lovenox) 30 mg DAILY SC Last administered on 03/30/17 09:30 ; Admin Dose 30 MG; Start 03/21/17 at 09:00 Collagenase (Santyl) 1 applic PRN PRN TOP SOILNG; Start 03/22/17 at 16:15 Mineral Oil (Mineral Oil) 50 ml Q8 GTB Last administered on 03/30/17 05:35; Admin Dose 50 ML; Start 03/23/17 at 15:00 Amlodipine Besylate (Norvasc) 10 mg DAILY GTB Last administered on 03/30/17 09 :37; Admin Dose 10 MG; Start 03/24/17 at 09:00 Hydralazine HCl 20 mg 20 mg Q6H PRN IV FOR SBP>160 Last administered on 00:20; Admin Dose 20 MG; Start 03/23/17 at 18:30 Potassium Chloride/Dextrose/ Sod Cl (D5-1/2ns + KCl 40 Meq) 1,000 ml @ 70 mls/ hr [id number] IV Last administered on 03/29/17 21:18; Admin Dose 70 MLS/HR; Start 03/27/17 at 11:00 Metoclopramide HCl (Reglan) 10 mg Q8 IV Last administered on 03/30/17t 05:35; Admin Dose 10 MG; Start 03/27/17 at 15:30 RESHMA GOAYL NP Mar 30, 2017 14:10
[2017-03-30] MEDS ORDERED: PEG/ELECTROLYTES 4L BTL GTB ONE (15:00)
--- NOTE | 2017-03-30 15:42 | PN ---
Date/Time of Note Date/Time of Note DATE: 03/30/17 TIME: 15:39 Assessment/Plan VTE Prophylaxis VTE Prophylaxis Intervention: SCD's Lines/Catheters IV C[facility]ter Type (from [facility] Peripheral IV Urinary Cath still in place: Yes Reason Cath still needed: urinary retention Assessment/Plan Chief Complaint/Hosp Course Patient continued on bowel regimen with minimal colostomy output. Pending family conference tomorrow regarding the goals of care. Will hold for TPN for right now awaiting the family conference outcome. Assessment/Plan -SBO, Dr. Gay is swallowing in general surgery consultation. Continue IV fluids. -Sepsis secondary to urinary tract infection an possible pneumonia. Continue broad-spectrum antibiotics. Dr. Almazan is following an infection disease consultation. -Intractable nausea and vomiting, rule out gastric outlet obstruction. Dr. Pryor is following in gastroenterology consultation. -Colostomy. -Hyperkalemia secondary to dehydration, resolved. -Ventilator-dependent respiratory failure. Dr. Saenz is following in pulmonology consultation. -Subdural hematoma with chronic encephalopathy. -Chronic obstructive pulmonary disease. -Dysphagia with G-tube. Further recommendations based on clinical course. Plan of care discussed with Dr. Meeks. Problems: Exam/Review of Systems Vital Signs Vitals Vital Signs Date Time Temp Pulse Resp B/P Pulse Ox O2 Delivery O2 Flow Rate FiO2 03/30/17 15:18 98.3 52 20 163/72 95 03/30/17 13:13 30 Intake and Output 03/29/17 03/29/17 03/30/17 15:00 23:00 07:00 Intake Total 900 ml Output Total 1000 ml Balance -100 ml Exam Constitutional: frail, non-verbal Head: normocephalic Neck: other (Tracheostomy), supple Respiratory: diminished breath sounds Cardiovascular: nl pulses Gastrointestinal: other (G-tube), soft, colostomy Extremities: normal pulses Skin: other (Multiple wounds) Results Result Diagram: 03/30/17 0822 03/30/17 0822 Results 24 hrs Laboratory Tests Test 03/30/17 08:22 White Blood Count 4.6 L Red Blood Count 3.63 L Hemoglobin 10.8 L Hematocrit 32.4 L Mean Corpuscular Volume 89.3 Mean Corpuscular Hemoglobin 29.8 Mean Corpuscular Hemoglobin Concent 33.3 Red Cell Distribution Width 17.7 H Platelet Count 131 #L Mean Platelet Volume Neutrophils % 17.5 L Lymphocytes % 47.3 Monocytes % 19.8 H Eosinophils % 14.3 H Basophils % 0.9 Nucleated Red Blood Cells % 0.4 H Neutrophils # (Manual) 0.8 L Lymphocytes # 2.2 Monocytes # 0.9 Eosinophils # 0.7 H Basophils # 0.0 Nucleated Red Blood Cells # 0.0 Sodium Level 146 H Potassium Level 3.8 Chloride Level 111 H Carbon Dioxide Level 21 Anion Gap 18 H Blood Urea Nitrogen 8 Creatinine 0.99 Glucose Level 101 Calcium Level 9.2 Medications Medications Current Medications Ondansetron HCl (Zofran Inj) 4 mg Q6H PRN IV NAUSEA AND/OR VOMITING; Start at 23:30 Acetaminophen (Tylenol Tab) 650 mg Q6H PRN PO PAIN LEVEL 1-3 OR FEVER Last administered on 03/21/17 03:14; Admin Dose 650 MG; Start 03/20/17 at 23:30 Morphine Sulfate (morphine) 2 mg Q4H PRN IV PAIN LEVEL 7-10 Last administered on 03/23/17 15:29; Admin Dose 2 MG; Start 03/20/17 at 23:30 Famotidine (Pepcid Iv) 20 mg Q12 IV Last administered on 03/30/17 09:29; Admin Dose 20 MG; Start 03/21/17 at 09:00 Enoxaparin Sodium (Lovenox) 30 mg DAILY SC Last administered on 03/30/17 09:30 ; Admin Dose 30 MG; Start 03/21/17 at 09:00 Collagenase (Santyl) 1 applic PRN PRN TOP SOILNG; Start 03/22/17 at 16:15 Mineral Oil (Mineral Oil) 50 ml Q8 GTB Last administered on 03/30/17 15:16; Admin Dose 50 ML; Start 03/23/17 at 15:00 Amlodipine Besylate (Norvasc) 10 mg DAILY GTB Last administered on 03/30/17 09 :37; Admin Dose 10 MG; Start 03/24/17 at 09:00 Hydralazine HCl 20 mg 20 mg Q6H PRN IV FOR SBP>160 Last administered on 00:20; Admin Dose 20 MG; Start 03/23/17 at 18:30 Potassium Chloride/Dextrose/ Sod Cl (D5-1/2ns + KCl 40 Meq) 1,000 ml @ 70 mls/ hr [id number] IV Last administered on 03/29/17 21:18; Admin Dose 70 MLS/HR; Start 03/27/17 at 11:00 Metoclopramide HCl (Reglan) 10 mg Q8 IV Last administered on 03/30/17 15:16; Admin Dose 10 MG; Start 03/27/17 at 15:30 AMY MORAN Mar 30, 2017 15:41
[2017-03-31] VITALS (24 sets, daily range): BP systolic 131–146; BP diastolic 59–88; PULSE 39–61; RESP 18–23
[2017-03-31] MEDS: D5W-0.45 NACL + KCL 40 MEQ 1,000 ML IV SCH ×5 (00:48→23:21)
[2017-03-31] MEDS: METOCLOPRAMIDE 10 MG INJ IV SCH ×3 (05:47→21:05)
[2017-03-31] MEDS: MINERAL OIL 30ML CUP GTB SCH ×3 (05:47→21:05)
[2017-03-31 07:48] LABS: ABNORMAL IP MESSAGE 1; BASOPHILS % 0.5 % (0.0-2.0); EOSINOPHILS # 0.5 10^3/ul (0.0-0.5); EOSINOPHILS % 12.2 % (0.0-7.0); HEMATOCRIT 38.3 % (42.0-52.0); HEMOGLOBIN 12.4 g/dl (14.0-18.0); LYMPHOCYTES % 52.7 % (15.0-51.0); MEAN CORPUSCULAR HEMOGLOBIN 28.4 pg (29.0-33.0); MEAN CORPUSCULAR HGB CONC 32.4 g/dl (32.0-37.0); MEAN CORPUSCULAR VOLUME 87.8 fl (82.0-101.0); MEAN PLATELET VOLUME 13.3 fl (7.4-10.4); MONOCYTE # 0.6 10^3/ul (0.3-0.9); NEUTROPHILS % 18.6 % (39.0-77.0); PLATELET COUNT 195 10^3/UL (140-415); POSITIVE DIFF @See below; RED BLOOD COUNT 4.36 10^6/ul (4.70-6.10); RED CELL DISTRIBUTION WIDTH 18.1 % (11.5-14.5); WHITE BLOOD COUNT 3.8 10^3/ul (4.8-10.8)
--- NOTE | 2017-03-31 08:18 | CONS ---
Date/Time of Note Date/Time of Note DATE: 03/31/17 TIME: 08:17 Consult Date/Type/Reason Admit Date/Time Mar 20, 2017 at 23:37 Initial Consult Date 03/21/17 Type of Consultation: CARDIOLOGY Subjective Discussed with stability was reviewed. Patient remains nonverbal s/p tracheostomy on the vent. rhythm was reviewed. pt is still mostly in marked sinus bradycardia, HR as low as 40s with occasional PVC. NO LONG PAUSES IS SEEN THOUGH. She remains nonverbal and is unable to provide any history to me. objective: General: s/p trach. thin man HEENT: NC/AT. pupils are equal. round. NECK: NO JVD. no stridor. s/p trach CV: bradycardic. systolic murmur; no gallop or rubs. PULM: no wheezing or rhonchi. GI: SOFT, NT, ND, no rebound or guarding Extremity: trace B/L LE edema. no clubbing. neuro: does not respond to or follow commands Psych: calm rectal: deferred : normal ECG reviewed: sinus rl ECHO REVIEWED: 1. Normal left ventricular systolic function. Normal left ventricular cavity size. Mild concentric left ventricular hypertrophy. Ejection fraction is visually estimated at 65 %. 2. Mitral valve leaflets appear mildly thickened. Mild mitral annular calcification. Trace mitral regurgitation. 3. No significant aortic stenosis or insufficiency. Aortic cusps appear mildly calcified. 4. Normal appearance of the tricuspid valve. Unable to obtain RVSP due to minimal presence of tricuspid regurgitation. Objective Vital Signs Date Time Temp Pulse Resp B/P Pulse Ox O2 Delivery O2 Flow Rate FiO2 03/31/17 07:58 98.0 79 18 137/68 100 03/31/17 07:15 30 Intake and Output 03/30/17 03/30/17 03/31/17 15:00 23:00 07:00 Intake Total 500 ml 970 ml Output Total 1500 ml 1750 ml Balance -1000 ml -780 ml Results/Medications Result Diagram: 03/31/17 0617 03/30/17 0822 Results 24 hrs Laboratory Tests Test 03/30/17 08:22 03/31/17 06:17 White Blood Count 4.6 L 3.8 L Red Blood Count 3.63 L 4.36 #L Hemoglobin 10.8 L 12.4 L Hematocrit 32.4 L 38.3 L Mean Corpuscular Volume 89.3 87.8 Mean Corpuscular Hemoglobin 29.8 28.4 L Mean Corpuscular Hemoglobin Concent 33.3 32.4 Red Cell Distribution Width 17.7 H 18.1 H Platelet Count 131 #L 195 # Mean Platelet Volume 13.3 H Neutrophils % 17.5 L 18.6 L Lymphocytes % 47.3 52.7 H Monocytes % 19.8 H 16.0 H Eosinophils % 14.3 H 12.2 H Basophils % 0.9 0.5 Nucleated Red Blood Cells % 0.4 H 0.0 Neutrophils # (Manual) 0.8 L 0.7 L Lymphocytes # 2.2 2.0 Monocytes # 0.9 0.6 Eosinophils # 0.7 H 0.5 Basophils # 0.0 0.0 Nucleated Red Blood Cells # 0.0 0.0 Sodium Level 146 H Potassium Level 3.8 Chloride Level 111 H Carbon Dioxide Level 21 Anion Gap 18 H Blood Urea Nitrogen 8 Creatinine 0.99 Glucose Level 101 Calcium Level 9.2 Medications Current Medications Ondansetron HCl (Zofran Inj) 4 mg Q6H PRN IV NAUSEA AND/OR VOMITING; Start at 23:30 Acetaminophen (Tylenol Tab) 650 mg Q6H PRN PO PAIN LEVEL 1-3 OR FEVER Last administered on 03/21/17 03:14; Admin Dose 650 MG; Start 03/20/17 at 23:30 Morphine Sulfate (morphine) 2 mg Q4H PRN IV PAIN LEVEL 7-10 Last administered on 03/23/17 15:29; Admin Dose 2 MG; Start 03/20/17 at 23:30 Famotidine (Pepcid Iv) 20 mg Q12 IV Last administered on 03/30/17 21:20; Admin Dose 20 MG; Start 03/21/17 at 09:00 Enoxaparin Sodium (Lovenox) 30 mg DAILY SC Last administered on 03/30/17 09:30 ; Admin Dose 30 MG; Start 03/21/17 at 09:00 Collagenase (Santyl) 1 applic PRN PRN TOP SOILNG; Start 03/22/17 at 16:15 Mineral Oil (Mineral Oil) 50 ml Q8 GTB Last administered on 03/31/17 05:47; Admin Dose 50 ML; Start 03/23/17 at 15:00 Amlodipine Besylate (Norvasc) 10 mg DAILY GTB Last administered on 03/30/17 09 :37; Admin Dose 10 MG; Start 03/24/17 at 09:00 Hydralazine HCl 20 mg 20 mg Q6H PRN IV FOR SBP>160 Last administered on 00:20; Admin Dose 20 MG; Start 03/23/17 at 18:30 Potassium Chloride/Dextrose/ Sod Cl (D5-1/2ns + KCl 40 Meq) 1,000 ml @ 70 mls/ hr [id number] IV Last administered on 03/31/17 06:32; Admin Dose 70 MLS/HR; Start 03/27/17 at 11:00 Metoclopramide HCl (Reglan) 10 mg Q8 IV Last administered on 03/31/17 05:47; Admin Dose 10 MG; Start 03/27/17 at 15:30 Assessment/Plan Chief Complaint/Hosp Course 1. Arrhythmia:/ bradycardia: appears asymptomatic so far with no evidence of high degree AV block 2. hypoxemic respiratory failure: Status post tracheostomy and vent dependent 3. History of hypertension 4. anemia. 5. encephalopathy 6. hypo K, corrected now 7. SBO: improved. Recommendations: correct lytes including K and Mg prn vent support and trach care as per PULM tele monitoring for now. GI work up and treatment as per IM Thank you Mahogany morales MD [facility] Problems: MAHOGANY MORALES MD Mar 31, 2017 08:18
[2017-03-31 08:20] LABS: CALCIUM 9.4 mg/dl (8.4-10.2); POTASSIUM 3.7 mmol/L (3.5-5.1)
[2017-03-31] MEDS: FAMOTIDINE 20 MG INJ IV SCH ×2 (09:47→20:07)
[2017-03-31] MEDS: ENOXAPARIN 30 MG/0.3 ML SYG SC SCH (09:48)
[2017-03-31] MEDS: AMLODIPINE 10 MG TAB GTB SCH (09:49)
--- NOTE | 2017-03-31 10:24 | CONS ---
Date/Time of Note Date/Time of Note DATE: 03/31/17 TIME: 10:21 Assessment/Plan Assessment/Plan Additional Assessment/Plan Ventilator setting; AC of 20, tidal volume 500, PEEP of 5, 30% FiO2. Assessment and recommendations; 1. Admitted with bilateral pneumonia off antibiotics now. 2. Chronic respiratory failure. 3. Mild thrombocytopenia. 4. Advanced dementia. Continue supportive care. Consider discharge. Prognosis remains poor. Consultation Date/Type/Reason Admit Date/Time Mar 20, 2017 at 23:37 Initial Consult Date 03/21/17 Type of Consultation: Pulmonary 24 HR Interval Summary Free Text/Dictation Patient condition stable. Remains unresponsive. Remains chronically ventilator dependent. Patient has remained hemodynamically stable. Next General exam; elderly male, on ventilator via tracheostomy, currently in no distress. Unresponsive. Exam/Review of Systems Vital Signs Vitals Vital Signs Date Time Temp Pulse Resp B/P Pulse Ox O2 Delivery O2 Flow Rate FiO2 03/31/17 09:05 65 20 100 30 03/31/17 07:58 98.0 137/68 Intake and Output 03/30/17 03/30/17 03/31/17 15:00 23:00 07:00 Intake Total 500 ml 970 ml Output Total 1500 ml 1750 ml Balance -1000 ml -780 ml Exam HEENT exam; supple neck, no JVD. No lymphadenopathy. Midline trachea. No thyromegaly. Tracheostomy in place. Patient is edentulous. Chest exam; diminished but clear breath sounds. S1-S2 audible, no murmurs. Regular rhythm. Abdomen exam; soft, ileostomy in place. G-tube in place. Bowel sounds are sluggish. No organomegaly felt. Extremity exam; no peripheral edema. Patient does have contractures involving all 4 extremities. FORMULA CLERK exam; patient remains completely unresponsive. Results Result Diagram: 03/31/17 0617 03/31/17 0617 Results 24 hrs Laboratory Tests Test 03/31/17 06:17 White Blood Count 3.8 L Red Blood Count 4.36 #L Hemoglobin 12.4 L Hematocrit 38.3 L Mean Corpuscular Volume 87.8 Mean Corpuscular Hemoglobin 28.4 L Mean Corpuscular Hemoglobin Concent 32.4 Red Cell Distribution Width 18.1 H Platelet Count 195 # Mean Platelet Volume 13.3 H Neutrophils % 18.6 L Lymphocytes % 52.7 H Monocytes % 16.0 H Eosinophils % 12.2 H Basophils % 0.5 Nucleated Red Blood Cells % 0.0 Neutrophils # (Manual) 0.7 L Lymphocytes # 2.0 Monocytes # 0.6 Eosinophils # 0.5 Basophils # 0.0 Nucleated Red Blood Cells # 0.0 Sodium Level 148 H Potassium Level 3.7 Chloride Level 109 Carbon Dioxide Level 23 Anion Gap 20 H Blood Urea Nitrogen 7 Creatinine 1.00 Glucose Level 93 Calcium Level 9.4 Medications Medications Current Medications Ondansetron HCl (Zofran Inj) 4 mg Q6H PRN IV NAUSEA AND/OR VOMITING; Start at 23:30 Acetaminophen (Tylenol Tab) 650 mg Q6H PRN PO PAIN LEVEL 1-3 OR FEVER Last administered on 03/21/17 03:14; Admin Dose 650 MG; Start 03/20/17 at 23:30 Morphine Sulfate (morphine) 2 mg Q4H PRN IV PAIN LEVEL 7-10 Last administered on 03/23/17 15:29; Admin Dose 2 MG; Start 03/20/17 at 23:30 Famotidine (Pepcid Iv) 20 mg Q12 IV Last administered on 03/31/17 09:47; Admin Dose 20 MG; Start 03/21/17 at 09:00 Enoxaparin Sodium (Lovenox) 30 mg DAILY SC Last administered on 03/31/17 09:48 ; Admin Dose 30 MG; Start 03/21/17 at 09:00 Collagenase (Santyl) 1 applic PRN PRN TOP SOILNG; Start 03/22/17 at 16:15 Mineral Oil (Mineral Oil) 50 ml Q8 GTB Last administered on 03/31/17 05:47; Admin Dose 50 ML; Start 03/23/17 at 15:00 Amlodipine Besylate (Norvasc) 10 mg DAILY GTB Last administered on 03/31/17 09 :49; Admin Dose 10 MG; Start 03/24/17 at 09:00 Hydralazine HCl 20 mg 20 mg Q6H PRN IV FOR SBP>160 Last administered on 00:20; Admin Dose 20 MG; Start 03/23/17 at 18:30 Potassium Chloride/Dextrose/ Sod Cl (D5-1/2ns + KCl 40 Meq) 1,000 ml @ 70 mls/ hr [id number] IV Last administered on 03/31/17 06:32; Admin Dose 70 MLS/HR; Start 03/27/17 at 11:00 Metoclopramide HCl (Reglan) 10 mg Q8 IV Last administered on 03/31/17 05:47; Admin Dose 10 MG; Start 03/27/17 at 15:30 SHAAN BUTT Mar 31, 2017 10:24
--- NOTE | 2017-03-31 14:53 | RADRPT ---
PROCEDURE: XR Abdomen. CLINICAL INDICATION: Abdomen pain. TECHNIQUE: AP supine abdomen x-ray. COMPARISON: None. FINDINGS: The bowel gas pattern is normal with no evidence of obstruction. There are no calcifications overlying the urinary tracts. There are degenerative changes of the lower lumbar spine with osteophytes noted. There is lumbar scoliosis convex right measuring 22 degrees between L1 and L5. Alignment is otherwi se normal. IMPRESSION: 1. Lumbar scoliosis convex right. 2. Degenerative changes of the lumbar spine. 3. Otherwise unremarkable abdomen radiograph yevgeniy. RPTAT: QQ .Carter Hogan MD, MD Date Time Electronically viewed and signed by .Carter Hogan MD, on 03/31/2017 14:52 .R/
--- NOTE | 2017-03-31 15:55 | PN ---
Date/Time of Note Date/Time of Note DATE: 03/31/17 TIME: 15:54 Assessment/Plan VTE Prophylaxis VTE Prophylaxis Intervention: other Lines/Catheters IV Catheter Type (from [facility]): Peripheral IV Urinary Cath still in place: Yes Reason Cath still needed: urinary retention Assessment/Plan Assessment/Plan -SBO, Dr. Gay is swallowing in general surgery consultation. Continue IV fluids. -CT abdomen- fu -Sepsis secondary to urinary tract infection an possible pneumonia. Continue broad-spectrum antibiotics. Dr. Almazan is following an infection disease consultation. -Intractable nausea and vomiting, rule out gastric outlet obstruction. Dr. Pryor is following in gastroenterology consultation. -Colostomy. -Hyperkalemia secondary to dehydration, resolved. -Ventilator-dependent respiratory failure. Dr. Saenz is following in pulmonology consultation. -Subdural hematoma with chronic encephalopathy. -Chronic obstructive pulmonary disease. -Dysphagia with G-tube. Further recommendations based on clinical course. Plan of care discussed with Dr. Meeks. Subjective 24 Hr Interval Summary Free Text/Dictation Family meeting with daughter today. code status changed to - DO NOT RESUSCITATE today. dw staff. SBO suspected and KUB orderedwhich showed no SBO. surgery follows. Daughter at bed side- all Qs answered. Subjective hx not possible: pt non-verbal Constitutional: requiring IVF, requiring O2 Cardiovascular: edema Gastrointestinal: no complaints Exam/Review of Systems Vital Signs Vitals Vital Signs Date Time Temp Pulse Resp B/P Pulse Ox O2 Delivery O2 Flow Rate FiO2 03/31/17 15:05 46 20 97 30 03/31/17 12:27 98.0 131/73 Intake and Output 03/30/17 03/30/17 03/31/17 15:00 23:00 07:00 Intake Total 500 ml 970 ml Output Total 1500 ml 1750 ml Balance -1000 ml -780 ml Exam Constitutional: non-verbal Respiratory: diminished breath sounds Cardiovascular: nl pulses Gastrointestinal: non-tender, soft Musculoskeletal: muscle weakness Neurological: unresponsive Results Result Diagram: 03/31/1717 03/31/17 0617 Results 24 hrs Laboratory Tests Test 03/31/17 06:17 White Blood Count 3.8 L Red Blood Count 4.36 #L Hemoglobin 12.4 L Hematocrit 38.3 L Mean Corpuscular Volume 87.8 Mean Corpuscular Hemoglobin 28.4 L Mean Corpuscular Hemoglobin Concent 32.4 Red Cell Distribution Width 18.1 H Platelet Count 195 # Mean Platelet Volume 13.3 H Neutrophils % 18.6 L Lymphocytes % 52.7 H Monocytes % 16.0 H Eosinophils % 12.2 H Basophils % 0.5 Nucleated Red Blood Cells % 0.0 Neutrophils # (Manual) 0.7 L Lymphocytes # 2.0 Monocytes # 0.6 Eosinophils # 0.5 Basophils # 0.0 Nucleated Red Blood Cells # 0.0 Sodium Level 148 H Potassium Level 3.7 Chloride Level 109 Carbon Dioxide Level 23 Anion Gap 20 H Blood Urea Nitrogen 7 Creatinine 1.00 Glucose Level 93 Calcium Level 9.4 Medications Medications Current Medications Ondansetron HCl (Zofran Inj) 4 mg Q6H PRN IV NAUSEA AND/OR VOMITING; Start at 23:30 Acetaminophen (Tylenol Tab) 650 mg Q6H PRN PO PAIN LEVEL 1-3 OR FEVER Last administered on 03/21/17 03:14; Admin Dose 650 MG; Start 03/20/17 at 23:30 Morphine Sulfate (morphine) 2 mg Q4H PRN IV PAIN LEVEL 7-10 Last administered on 03/23/17 15:29; Admin Dose 2 MG; Start 03/20/17 at 23:30 Famotidine (Pepcid Iv) 20 mg Q12 IV Last administered on 03/31/17 09:47; Admin Dose 20 MG; Start 03/21/17 at 09:00 Enoxaparin Sodium (Lovenox) 30 mg DAILY SC Last administered on 03/31/17 09:48 ; Admin Dose 30 MG; Start 03/21/17 at 09:00 Collagenase (Santyl) 1 applic PRN PRN TOP SOILNG; Start 03/22/17 at 16:15 Mineral Oil (Mineral Oil) 50 ml Q8 GTB Last administered on 03/31/17 05:47; Admin Dose 50 ML; Start 03/23/17 at 15:00 Amlodipine Besylate (Norvasc) 10 mg DAILY GTB Last administered on 03/31/17 09 :49; Admin Dose 10 MG; Start 03/24/17 at 09:00 Hydralazine HCl 20 mg 20 mg Q6H PRN IV FOR SBP>160 Last administered on 00:20; Admin Dose 20 MG; Start 03/23/17 at 18:30 Potassium Chloride/Dextrose/ Sod Cl (D5-1/2ns + KCl 40 Meq) 1,000 ml @ 70 mls/ hr [id number] IV Last administered on 03/31/17 15:30; Admin Dose 70 MLS/HR; Start 03/27/17 at 11:00 Metoclopramide HCl (Reglan) 10 mg Q8 IV Last administered on 03/31/17 15:30; Admin Dose 10 MG; Start 03/27/17 at 15:30 MARIO ROWE Mar 31, 2017 15:55
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
--- NOTE | 2017-03-31 18:00 | PN ---
Date/Time of Note Date/Time of Note DATE: 03/31/17 TIME: 17:51 Assessment/Plan VTE Prophylaxis VTE Prophylaxis Intervention: LMWH Lines/Catheters IV [facility] Type (from [facility]): Peripheral IV Urinary Cath still in place: Yes Reason Cath still needed: pres ulcer contaminated by urine, other (indicate) ( For measurement of intake and output.) Assessment/Plan Assessment/Plan 71-year-old male with multiple medical problems including sepsis urinary tract infection and chronic respiratory failure, I have been seeing the patient because of the possibility of small bowel obstruction. A couple of times I did manual disimpaction of the colostomy. CT scan has revealed presence of extensive amount of stool from cecum up to the placement of the colostomy on the left upper quadrant. I am trying to facilitate movement of the stool through the colon by giving the patient mineral oil to G- tube clamping for few hours. On admission G-tube drainage has been almost about a liter per day but recently gradually has decreased. Today only has had 100 cc drainage. KUB ordered 2 hours ago does not show evidence of a small bowel obstruction. I am planning to give 500 cc of GoLYTELY today over 5 hours. Subjective 24 Hr Interval Summary Free Text/Dictation Nonverbal no response to verbal stimuli. Patient continues to be on ventilator with FiO2 30%. No bowel movement has been reported by the nurses. Exam/Review of Systems Vital Signs Vitals Vital Signs Date Time Temp Pulse Resp B/P Pulse Ox O2 Delivery O2 Flow Rate FiO2 03/31/17 17:05 98 20 100 30 03/31/17 16:30 98.2 135/78 Intake and Output 03/30/17 03/30/17 03/31/17 15:00 23:00 07:00 Intake Total 500 ml 970 ml Output Total 1500 ml 1750 ml Balance -1000 ml -780 ml Exam Vital signs stable. Afebrile. General on the ventilator at FiO2 30%. G-tube in place abdomen mildly distended soft, colostomy bag is empty there is no gas or stool in it at this time. Sodium-potassium BUN creatinine within normal limits. Noncommunicative, does not respond to verbal or deep painful stimuli. Results Result Diagram: 03/31/17 0617 03/31/17 0617 Results 24 hrs Laboratory Tests Test 03/31/17 06:17 White Blood Count 3.8 L Red Blood Count 4.36 #L Hemoglobin 12.4 L Hematocrit 38.3 L Mean Corpuscular Volume 87.8 Mean Corpuscular Hemoglobin 28.4 L Mean Corpuscular Hemoglobin Concent 32.4 Red Cell Distribution Width 18.1 H Platelet Count 195 # Mean Platelet Volume 13.3 H Neutrophils % 18.6 L Lymphocytes % 52.7 H Monocytes % 16.0 H Eosinophils % 12.2 H Basophils % 0.5 Nucleated Red Blood Cells % 0.0 Neutrophils # (Manual) 0.7 L Lymphocytes # 2.0 Monocytes # 0.6 Eosinophils # 0.5 Basophils # 0.0 Nucleated Red Blood Cells # 0.0 Sodium Level 148 H Potassium Level 3.7 Chloride Level 109 Carbon Dioxide Level 23 Anion Gap 20 H Blood Urea Nitrogen 7 Creatinine 1.00 Glucose Level 93 Calcium Level 9.4 Medications Medications Current Medications Ondansetron HCl (Zofran Inj) 4 mg Q6H PRN IV NAUSEA AND/OR VOMITING; Start at 23:30 Acetaminophen (Tylenol Tab) 650 mg Q6H PRN PO PAIN LEVEL 1-3 OR FEVER Last administered on 03/21/17 03:14; Admin Dose 650 MG; Start 03/20/17 at 23:30 Morphine Sulfate (morphine) 2 mg Q4H PRN IV PAIN LEVEL 7-10 Last administered on 03/23/17 15:29; Admin Dose 2 MG; Start 03/20/17 at 23:30 Famotidine (Pepcid Iv) 20 mg Q12 IV Last administered on 03/31/17 09:47; Admin Dose 20 MG; Start 03/21/17 at 09:00 Enoxaparin Sodium (Lovenox) 30 mg DAILY SC Last administered on 03/31/17 09:48 ; Admin Dose 30 MG; Start 03/21/17 at 09:00 Collagenase (Santyl) 1 applic PRN PRN TOP SOILNG; Start 03/22/17 at 16:15 Mineral Oil (Mineral Oil) 50 ml Q8 GTB Last administered on 03/31/17 17:38; Admin Dose 50 ML; Start 03/23/17 at 15:00 Amlodipine Besylate (Norvasc) 10 mg DAILY GTB Last administered on 03/31/17 09 :49; Admin Dose 10 MG; Start 03/24/17 at 09:00 Hydralazine HCl 20 mg 20 mg Q6H PRN IV FOR SBP>160 Last administered on 00:20; Admin Dose 20 MG; Start 03/23/17 at 18:30 Potassium Chloride/Dextrose/ Sod Cl (D5-1/2ns + KCl 40 Meq) 1,000 ml @ 70 mls/ hr [id number] IV Last administered on 03/31/17 15:30; Admin Dose 70 MLS/HR; Start 03/27/17 at 11:00 Metoclopramide HCl (Reglan) 10 mg Q8 IV Last administered on 03/31/17 15:30; Admin Dose 10 MG; Start 03/27/17 at 15:30 VANIA MAE MD Mar 31, 2017 18:00
[2017-03-31] MEDS ORDERED: PEG/ELECTROLYTES 4L BTL PO SCH (20:00)
[2017-03-31] MEDS: PEG/ELECTROLYTES 4L BTL GTB SCH ×4 (21:02→23:30)
[2017-04-01] VITALS (23 sets, daily range): BP systolic 117–163; BP diastolic 59–86; PULSE 48–95; RESP 16–26
[2017-04-01] MEDS: PEG/ELECTROLYTES 4L BTL GTB SCH (00:30)
[2017-04-01] MEDS: METOCLOPRAMIDE 10 MG INJ IV SCH ×3 (05:55→21:19)
[2017-04-01] MEDS: MINERAL OIL 30ML CUP GTB SCH ×3 (05:55→22:00)
[2017-04-01] MEDS: ENOXAPARIN 30 MG/0.3 ML SYG SC SCH (10:06)
[2017-04-01] MEDS: FAMOTIDINE 20 MG INJ IV SCH ×2 (10:08→21:19)
[2017-04-01] MEDS: AMLODIPINE 10 MG TAB GTB SCH (10:08)
--- NOTE | 2017-04-01 11:38 | PN ---
Date/Time of Note Date/Time of Note DATE: 04/01/17 TIME: 11:25 Assessment/Plan VTE Prophylaxis VTE Prophylaxis Intervention: LMWH Lines/Catheters [facility] (from [facility]): Peripheral IV Urinary Cath still in place: Yes Reason Cath still needed: pres ulcer contaminated by urine Assessment/Plan Assessment/Plan 71 years old male admitted because of nausea vomiting in the fdc he also was found to have urinary tract infection and pneumonia and sepsis. Scan showed dilated loops of small bowel compatible with small bowel obstruction. Also it has showed extensive amount of stool in the whole colon from cecum up to the colostomy site. I have been trying to mobilize this stool to come out through the colostomy. Yesterday we gave 500 cc of GoLYTELY with minimal effect, KUB yesterday did not reveal any evidence of small bowel obstruction. This I do not expect obstruction due to adhesions but due to stool intraluminally these NG tube has not drained anything in the past 24 hours , we will give a trial of magnesium citrate 1 bottle. Subjective 24 Hr Interval Summary Free Text/Dictation Nonverbal no communication, unresponsive. Has had a slight amount of bowel movement is greenish in color and very small pieces of formed stool . Patient is a status has changed to no code. And DNR. Exam/Review of Systems Vital Signs Vitals Vital Signs Date Time Temp Pulse Resp B/P Pulse Ox O2 Delivery O2 Flow Rate FiO2 04/01/17 09:59 59 04/01/17 09:10 20 100 30 04/01/17 07:34 97.2 146/86 Intake and Output 03/31/17 03/31/17 04/01/17 15:00 23:00 07:00 Intake Total 500 ml Output Total 1600 ml 1000 ml Balance -1600 ml -500 ml Exam On the ventilator, unresponsive no communication, G-tube clamped after giving medication and mineral oil. No leukocytosis Temperature 98.2 heart rate 59 regular. Abdomen as you do yesterday slightly distended soft. Some bowel sounds is audible. I did digital exam on the colostomy, going about 10 cm from the proximal opening , there is some stool but it is not hard ball shape. Last night has received 500 cc of GoLYTELY but apparently has not been a large bowel movement. Also the G-tube drainage has been 0 past 24 hours which means that clinically there is no evidence of obstruction. Therefore I am going to give a bottle of mag citrate hopefully he will have a bowel movement after that. Results Result Diagram: 03/31/1761603/31/17616 Medications Medications Current Medications Ondansetron HCl (Zofran Inj) 4 mg Q6H PRN IV NAUSEA AND/OR VOMITING; Start at 23:30 Acetaminophen (Tylenol Tab) 650 mg Q6H PRN PO PAIN LEVEL 1-3 OR FEVER Last administered on 03/21/17 03:14; Admin Dose 650 MG; Start 03/20/17 at 23:30 Morphine Sulfate (morphine) 2 mg Q4H PRN IV PAIN LEVEL 7-10 Last administered on 03/23/17 15:29; Admin Dose 2 MG; Start 03/20/17 at 23:30 Famotidine (Pepcid Iv) 20 mg Q12 IV Last administered on 04/01/17 10:08; Admin Dose 20 MG; Start 03/21/17 at 09:00 Enoxaparin Sodium (Lovenox) 30 mg DAILY SC Last administered on 04/01/17 10:06 ; Admin Dose 30 MG; Start 03/21/17 at 09:00 Collagenase (Santyl) 1 applic PRN PRN TOP SOILNG; Start 03/22/17 at 16:15 Mineral Oil (Mineral Oil) 50 ml Q8 GTB Last administered on 04/01/17 05:55; Admin Dose 50 ML; Start 03/23/17 at 15:00 Amlodipine Besylate (Norvasc) 10 mg DAILY GTB Last administered on 04/01/17 10: 08; Admin Dose 10 MG; Start 03/24/17 at 09:00 Hydralazine HCl 20 mg 20 mg Q6H PRN IV FOR SBP>160 Last administered on 00:20; Admin Dose 20 MG; Start 03/23/17 at 18:30 Potassium Chloride/Dextrose/ Sod Cl (D5-1/2ns + KCl 40 Meq) 1,000 ml @ 70 mls/ hr [id number] IV Last administered on 03/31/17 23:21; Admin Dose 70 MLS/HR; Start 03/27/17 at 11:00 Metoclopramide HCl (Reglan) 10 mg Q8 IV Last administered on 9/1/17at 05:55; Admin Dose 10 MG; Start 03/27/17 at 15:30 Magnesium Citrate (Citroma) 300 ml ONCE ONCE PO ; Start 04/01/17 at 12:00; Stop 04/01/17 at 12:01 VANIA MAE MD Apr 01, 2017 11:38
[2017-04-01] MEDS ORDERED: MAGNESIUM CITRATE 300 ML BTL PO ONE (12:00)
--- NOTE | 2017-04-01 12:47 | CONS ---
Date/Time of Note Date/Time of Note DATE: 04/01/17 TIME: 12:44 Assessment/Plan Assessment/Plan Additional Assessment/Plan Ventilator setting; AC of 20, tidal volume 500, PEEP of 5, 40% FiO2. Assessment and recommendations; 1. Patient admitted with pneumonia off antibiotics now. 2. Advanced dementia. 3. Chronic respiratory failure. 4. Persistent ileus. 5. History of ileostomy. Continue current treatment. Start TPN. Prognosis remains poor. Consultation Date/Type/Reason Admit Date/Time Mar 20, 2017 at 23:37 Initial Consult Date 03/21/17 Type of Consultation: Pulmonary 24 HR Interval Summary Free Text/Dictation Patient condition remains stable. Remains unresponsive. Has remained hemodynamically stable. General exam; elderly male, on ventilator via tracheostomy, unresponsive, currently in no distress. Exam/Review of Systems Vital Signs Vitals Vital Signs Date Time Temp Pulse Resp B/P Pulse Ox O2 Delivery O2 Flow Rate FiO2 04/01/17 11:37 98.1 60 19 142/80 98 04/01/17 11:10 30 Intake and Output 03/31/17 03/31/17 04/01/17 15:00 23:00 07:00 Intake Total 500 ml Output Total 1600 ml 1000 ml Balance -1600 ml -500 ml Exam HEENT exam; supple neck, no JVD. No lymphadenopathy. Midline trachea. No thyromegaly. Tracheostomy in place. Patient is edentulous. Chest exam; diminished but clear breath sound. S1-S2 audible, no murmurs. Regular rhythm. Abdomen exam; soft, G-tube in place. Ileostomy in place. Bowel sounds are very sluggish. Abdomen is nondistended. Extremity exam; no peripheral edema. Patient does have contractures involving all [address] [employer]INE[employer] exam; patient remains completely unresponsive. Results Result Diagram: 03/31/1761603/31/17616 Medications Medications Current Medications Ondansetron HCl (Zofran Inj) 4 mg Q6H PRN IV NAUSEA AND/OR VOMITING; Start at 23:30 Acetaminophen (Tylenol Tab) 650 mg Q6H PRN PO PAIN LEVEL 1-3 OR FEVER Last administered on 03/21/17t 03:14; Admin Dose 650 MG; Start 03/20/17 at 23:30 Morphine Sulfate (morphine) 2 mg Q4H PRN IV PAIN LEVEL 7-10 Last administered on 03/23/17 15:29; Admin Dose 2 MG; Start 03/20/17 at 23:30 Famotidine (Pepcid Iv) 20 mg Q12 IV Last administered on 04/01/17 10:08; Admin Dose 20 MG; Start 03/21/17 at 09:00 Enoxaparin Sodium (Lovenox) 30 mg DAILY SC Last administered on 04/01/17 10:06 ; Admin Dose 30 MG; Start 03/21/17 at 09:00 Collagenase (Santyl) 1 applic PRN PRN TOP SOILNG; Start 03/22/17 at 16:15 Mineral Oil (Mineral Oil) 50 ml Q8 GTB Last administered on 04/01/17 05:55; Admin Dose 50 ML; Start 03/23/17 at 15:00 Amlodipine Besylate (Norvasc) 10 mg DAILY GTB Last administered on 04/01/17 10: 08; Admin Dose 10 MG; Start 03/24/17 at 09:00 Hydralazine HCl 20 mg 20 mg Q6H PRN IV FOR SBP>160 Last administered on 00:20; Admin Dose 20 MG; Start 03/23/17 at 18:30 Potassium Chloride/Dextrose/ Sod Cl (D5-1/2ns + KCl 40 Meq) 1,000 ml @ 70 mls/ hr [id number] IV Last administered on 03/31/17 23:21; Admin Dose 70 MLS/HR; Start 03/27/17 at 11:00 Metoclopramide HCl (Reglan) 10 mg Q8 IV Last administered on 04/01/17 05:55; Admin Dose 10 MG; Start 03/27/17 at 15:30 SHAAN BUTT Apr 01, 2017 12:47
[2017-04-01] MEDS ORDERED: TPN 1,000 ML IV SCH (13:00)
[2017-04-01] MEDS: D5W-0.45 NACL + KCL 40 MEQ 1,000 ML IV SCH (15:20)
--- NOTE | 2017-04-01 16:02 | CONS ---
Date/Time of Note Date/Time of Note DATE: 04/01/17 TIME: 16:00 Consult Date/Type/Reason Admit Date/Time Mar 20, 2017 at 23:37 Initial Consult Date 03/21/17 Type of Consultation: CARDIOLOGY Subjective Discussed with stability was reviewed. Patient remains nonverbal . HE IS still s/p tracheostomy on the vent. rhythm was reviewed. pt is still in NSR and intermittent marked sinus bradycardia, with occasional PVC. She remains nonverbal and is unable to provide any history to me. objective: General: s/p trach. thin man HEENT: NC/AT. pupils are equal. round. NECK: NO JVD. no stridor. s/p trach CV: bradycardic. systolic murmur; no gallop or rubs. PULM: no wheezing or rhonchi. GI: SOFT, NT, ND, no rebound or guarding Extremity: trace B/L LE edema. no clubbing. neuro: does not respond to or follow commands Psych: calm rectal: deferred : normal ECG reviewed: sinus rl ECHO REVIEWED: 1. Normal left ventricular systolic function. Normal left ventricular cavity size. Mild concentric left ventricular hypertrophy. Ejection fraction is visually estimated at 65 %. 2. Mitral valve leaflets appear mildly thickened. Mild mitral annular calcification. Trace mitral regurgitation. 3. No significant aortic stenosis or insufficiency. Aortic cusps appear mildly calcified. 4. Normal appearance of the tricuspid valve. Unable to obtain RVSP due to minimal presence of tricuspid regurgitation. Objective Vital Signs Date Time Temp Pulse Resp B/P Pulse Ox O2 Delivery O2 Flow Rate FiO2 04/01/17 15:39 98.4 67 22 124/83 97 04/01/17 15:05 30 Intake and Output 03/31/17 03/31/17 04/01/17 15:00 23:00 07:00 Intake Total 500 ml Output Total 1600 ml 1000 ml Balance -1600 ml -500 ml Results/Medications Result Diagram: 03/31/1761603/31/17616 Medications Current Medications Ondansetron HCl (Zofran Inj) 4 mg Q6H PRN IV NAUSEA AND/OR VOMITING; Start at 23:30 Acetaminophen (Tylenol Tab) 650 mg Q6H PRN PO PAIN LEVEL 1-3 OR FEVER Last administered on 03/21/17t 03:14; Admin Dose 650 MG; Start 03/20/17 at 23:30 Morphine Sulfate (morphine) 2 mg Q4H PRN IV PAIN LEVEL 7-10 Last administered on 03/23/17 15:29; Admin Dose 2 MG; Start 03/20/17 at 23:30 Famotidine (Pepcid Iv) 20 mg Q12 IV Last administered on 04/01/17 10:08; Admin Dose 20 MG; Start 03/21/17 at 09:00 Enoxaparin Sodium (Lovenox) 30 mg DAILY SC Last administered on 04/01/17 10:06 ; Admin Dose 30 MG; Start 03/21/17 at 09:00 Collagenase (Santyl) 1 applic PRN PRN TOP SOILNG; Start 03/22/17 at 16:15 Mineral Oil (Mineral Oil) 50 ml Q8 GTB Last administered on 04/01/17 13:18; Admin Dose 50 ML; Start 03/23/17 at 15:00 Amlodipine Besylate (Norvasc) 10 mg DAILY GTB Last administered on 04/01/17 10: 08; Admin Dose 10 MG; Start 03/24/17 at 09:00 Hydralazine HCl 20 mg 20 mg Q6H PRN IV FOR SBP>160 Last administered on 00:20; Admin Dose 20 MG; Start 03/23/17 at 18:30 Potassium Chloride/Dextrose/ Sod Cl (D5-1/2ns + KCl 40 Meq) 1,000 ml @ 70 mls/ hr [id number] IV Last administered on 04/01/17 15:20; Admin Dose 70 MLS/HR; Start 03/27/17 at 11:00 Metoclopramide HCl 10 mg 10 mg Q8 IV Last administered on 04/01/17 13:18; Admin Dose 10 MG; Start 03/27/17 at 15:30 Total Parenteral Nutrition (Tpn) 1,000 ml @ 60 mls/hr [id number] IV ; Start at 13:00; Status UNV Assessment/Plan Chief Complaint/Hosp Course 1. Arrhythmia:/ bradycardia: appears asymptomatic so far with no evidence of high degree AV block on tele. 2. hypoxemic respiratory failure: Status post tracheostomy and vent dependent 3. History of hypertension 4. anemia. 5. encephalopathy 6. hypo K, corrected now 7. SBO: improved. Recommendations: correct lytes including K and Mg prn vent support and trach care as per PULM tele monitoring for now. GI work up and treatment as per IM will f/u prn over the weekend Thank you Mahogany morales MD [facility] Problems: MAHOGANY MORALES MD Apr 01, 2017 16:02
--- NOTE | 2017-04-01 17:03 | PN ---
Date/Time of Note Date/Time of Note DATE: 04/01/17 TIME: 16:59 Assessment/Plan Lines/Catheters IV Catheter Type (from Nrsg): Peripheral IV Urinary Cath still in place: Yes Assessment/Plan Assessment/Plan -SBO, Dr. Gay is swallowing in general surgery consultation. Continue IV fluids. - KUB -Sepsis secondary to urinary tract infection an possible pneumonia. Continue broad-spectrum antibiotics. Dr. Almazan is following an infection disease consultation. -Intractable nausea and vomiting, rule out gastric outlet obstruction. Dr. Pryor is following in gastroenterology consultation. -Colostomy. -Hyperkalemia secondary to dehydration, resolved. -Ventilator-dependent respiratory failure. Dr. Saenz is following in pulmonology consultation. -Subdural hematoma with chronic encephalopathy. -Chronic obstructive pulmonary disease. -Dysphagia with G-tube. Further recommendations based on clinical course. Plan of care discussed with Dr. Meeks. Subjective 24 Hr Interval Summary Constitutional: requiring IVF, requiring O2 Exam/Review of Systems Vital Signs Vitals Vital Signs Date Time Temp Pulse Resp B/P Pulse Ox O2 Delivery O2 Flow Rate FiO2 04/01/17 16:43 86 04/01/17 15:39 98.4 22 124/83 97 04/01/17 15:05 30 Intake and Output 03/31/17 03/31/17 04/01/17 15:00 23:00 07:00 Intake Total 500 ml Output Total 1600 ml 1000 ml Balance -1600 ml -500 ml Results Result Diagram: 03/31/1717 03/31/17 0617 Medications Medications Current Medications Ondansetron HCl (Zofran Inj) 4 mg Q6H PRN IV NAUSEA AND/OR VOMITING; Start at 23:30 Acetaminophen (Tylenol Tab) 650 mg Q6H PRN PO PAIN LEVEL 1-3 OR FEVER Last administered on 03/21/17 03:14; Admin Dose 650 MG; Start 03/20/17 at 23:30 Morphine Sulfate (morphine) 2 mg Q4H PRN IV PAIN LEVEL 7-10 Last administered on 03/23/17 15:29; Admin Dose 2 MG; Start 03/20/17 at 23:30 Famotidine (Pepcid Iv) 20 mg Q12 IV Last administered on 04/01/17 10:08; Admin Dose 20 MG; Start 03/21/17 at 09:00 Enoxaparin Sodium (Lovenox) 30 mg DAILY SC Last administered on 04/01/17 10:06 ; Admin Dose 30 MG; Start 03/21/17 at 09:00 Collagenase (Santyl) 1 applic PRN PRN TOP SOILNG; Start 03/22/17 at 16:15 Mineral Oil (Mineral Oil) 50 ml Q8 GTB Last administered on 04/01/17 13:18; Admin Dose 50 ML; Start 03/23/17 at 15:00 Amlodipine Besylate (Norvasc) 10 mg DAILY GTB Last administered on 04/01/17 10: 08; Admin Dose 10 MG; Start 03/24/17 at 09:00 Hydralazine HCl 20 mg 20 mg Q6H PRN IV FOR SBP>160 Last administered on 00:20; Admin Dose 20 MG; Start 03/23/17 at 18:30 Potassium Chloride/Dextrose/ Sod Cl (D5-1/2ns + KCl 40 Meq) 1,000 ml @ 70 mls/ hr [id number] IV Last administered on 04/01/17 15:20; Admin Dose 70 MLS/HR; Start 03/27/17 at 11:00 Metoclopramide HCl 10 mg 10 mg Q8 IV Last administered on 04/01/17 13:18; Admin Dose 10 MG; Start 03/27/17 at 15:30 Total Parenteral Nutrition (Tpn) 1,000 ml @ 60 mls/hr [id number] IV ; Start at 13:00; Status MARIO VELEZ Apr 01, 2017 17:03
[2017-04-02] VITALS (26 sets, daily range): BP systolic 97–121; BP diastolic 54–81; PULSE 107–128; RESP 19–45
[2017-04-02] MEDS: METOCLOPRAMIDE 10 MG INJ IV SCH ×3 (05:31→21:48)
[2017-04-02] MEDS: MINERAL OIL 30ML CUP GTB SCH ×2 (05:31→14:25)
[2017-04-02] MEDS: morphine 2 MG INJ IV PRN ×2 (07:39→15:12)
[2017-04-02] MEDS: AMLODIPINE 10 MG TAB GTB SCH (07:52)
[2017-04-02] MEDS: FAMOTIDINE 20 MG INJ IV SCH ×2 (09:03→20:28)
[2017-04-02] MEDS: ENOXAPARIN 30 MG/0.3 ML SYG SC SCH (09:04)
[2017-04-02] MEDS: D5W-0.45 NACL + KCL 40 MEQ 1,000 ML IV SCH (09:04)
--- NOTE | 2017-04-02 10:34 | PN ---
Date/Time of Note Date/Time of Note DATE: 04/02/17 TIME: 10:33 Assessment/Plan VTE Prophylaxis VTE Prophylaxis Intervention: other Lines/Catheters IV Catheter Type (from Nrsg): Peripheral IV Urinary Cath still in place: Yes Reason Cath still needed: skin wounds contaminated by urine Assessment/Plan Chief Complaint/Hosp Course -SBO, Dr. Gay is swallowing in general surgery consultation. Continue IV fluids. - KUB -Sepsis secondary to urinary tract infection an possible pneumonia. Continue broad-spectrum antibiotics. Dr. Almazan is following an infection disease consultation. -Intractable nausea and vomiting, rule out gastric outlet obstruction. Dr. Pryor is following in gastroenterology consultation. -Colostomy. -Hyperkalemia secondary to dehydration, resolved. -Ventilator-dependent respiratory failure. Dr. Saenz is following in pulmonology consultation. -Subdural hematoma with chronic encephalopathy. -Chronic obstructive pulmonary disease. -Dysphagia with G-tube. Problems: Subjective 24 Hr Interval Summary Free Text/Dictation Patient resting, comfortable Exam/Review of Systems Vital Signs Vitals Vital Signs Date Time Temp Pulse Resp B/P Pulse Ox O2 Delivery O2 Flow Rate FiO2 04/02/17 08:39 111 04/02/17 07:51 99.5 37 97/54 98 04/02/17 05:10 40 Intake and Output 04/01/17 04/01/17 04/02/17 15:00 23:00 07:00 Intake Total 0 ml Output Total 300 ml Balance -300 ml Exam Constitutional: well developed Head: atraumatic, normocephalic Neck: supple Respiratory: diminished breath sounds Cardiovascular: regular rate and rhythm Gastrointestinal: non-tender, soft Extremities: normal pulses Results Result Diagram: 03/31/1761603/31/17616 Medications Medications Current Medications Ondansetron HCl (Zofran Inj) 4 mg Q6H PRN IV NAUSEA AND/OR VOMITING; Start at 23:30 Acetaminophen (Tylenol Tab) 650 mg Q6H PRN PO PAIN LEVEL 1-3 OR FEVER Last administered on 03/21/17 03:14; Admin Dose 650 MG; Start 03/20/17 at 23:30 Morphine Sulfate (morphine) 2 mg Q4H PRN IV PAIN LEVEL 7-10 Last administered on 04/02/17 07:39; Admin Dose 2 MG; Start 03/20/17 at 23:30 Famotidine (Pepcid Iv) 20 mg Q12 IV Last administered on 04/02/17 09:03; Admin Dose 20 MG; Start 03/21/17 at 09:00 Enoxaparin Sodium (Lovenox) 30 mg DAILY SC Last administered on 04/02/17 09:04 ; Admin Dose 30 MG; Start 03/21/17 at 09:00 Collagenase (Santyl) 1 applic PRN PRN TOP SOILNG; Start 03/22/17 at 16:15 Mineral Oil (Mineral Oil) 50 ml Q8 GTB Last administered on 04/02/17 05:31; Admin Dose 50 ML; Start 03/23/17 at 15:00 Amlodipine Besylate (Norvasc) 10 mg DAILY GTB Last administered on 04/01/17 10: 08; Admin Dose 10 MG; Start 03/24/17 at 09:00 Hydralazine HCl 20 mg 20 mg Q6H PRN IV FOR SBP>160 Last administered on 00:20; Admin Dose 20 MG; Start 03/23/17 at 18:30 Potassium Chloride/Dextrose/ Sod Cl (D5-1/2ns + KCl 40 Meq) 1,000 ml @ 70 mls/ hr [id number] IV Last administered on 04/02/17 09:04; Admin Dose 70 MLS/HR; Start 03/27/17 at 11:00; Stop 04/03/17 at 14:59 Metoclopramide HCl 10 mg 10 mg Q8 IV Last administered on 04/02/17 05:31; Admin Dose 10 MG; Start 03/27/17 at 15:30 Total Parenteral Nutrition 1,000 ml @ 60 mls/hr [id number] IV ; Start 04/01/17 at 13:00; Status UNV Potassium Chloride/Dextrose/ Sodium Chloride (KCl/D5-1/2ns) 1,020 ml @ 70 mls/ hr [id number] IV ; Start 04/03/17 at 15:00 OLI ZUNIGA Apr 02, 2017 10:34
--- NOTE | 2017-04-02 11:44 | CONS ---
Date/Time of Note Date/Time of Note DATE: 04/02/17 TIME: 11:43 Consult Date/Type/Reason Admit Date/Time Mar 20, 2017 at 23:37 Initial Consult Date 03/21/17 Type of Consultation: Pulmonary Subjective Comfortable this morning no new events Objective Vital Signs Date Time Temp Pulse Resp B/P Pulse Ox O2 Delivery O2 Flow Rate FiO2 04/02/17 11:05 101 35 97 40 04/02/17 07:51 99.5 97/54 Intake and Output 04/01/17 04/01/17 04/02/17 15:00 23:00 07:00 Intake Total 0 ml Output Total 300 ml Balance -300 ml Exam PHYSICAL EXAMINATION GENERAL: Elderly gentleman, on mechanical ventilation via tracheostomy VITAL SIGNS: see below. HEENT: Pupils equal, round, and reactive to light. Tracheostomy site clean and intact. CARDIAC: S1, S2, 1/6 systolic ejection murmur CHEST: Diminished air entry bilaterally. ABDOMEN: Mildly distended. Bowel sounds present no guarding or rebound EXTREMITIES: No cyanosis, clubbing edema +1 NEUROLOGIC: Generalized weakness Results/Medications Result Diagram: 03/31/1761603/31/17616 Medications Current Medications Ondansetron HCl (Zofran Inj) 4 mg Q6H PRN IV NAUSEA AND/OR VOMITING; Start at 23:30 Acetaminophen (Tylenol Tab) 650 mg Q6H PRN PO PAIN LEVEL 1-3 OR FEVER Last administered on 03/21/17 03:14; Admin Dose 650 MG; Start 03/20/17 at 23:30 Morphine Sulfate (morphine) 2 mg Q4H PRN IV PAIN LEVEL 7-10 Last administered on 04/02/17 07:39; Admin Dose 2 MG; Start 03/20/17 at 23:30 Famotidine (Pepcid Iv) 20 mg Q12 IV Last administered on 04/02/17 09:03; Admin Dose 20 MG; Start 03/21/17 at 09:00 Enoxaparin Sodium (Lovenox) 30 mg DAILY SC Last administered on 04/02/17 09:04 ; Admin Dose 30 MG; Start 03/21/17 at 09:00 Collagenase (Santyl) 1 applic PRN PRN TOP SOILNG; Start 03/22/17 at 16:15 Mineral Oil (Mineral Oil) 50 ml Q8 GTB Last administered on 04/02/17 05:31; Admin Dose 50 ML; Start 03/23/17 at 15:00 Amlodipine Besylate (Norvasc) 10 mg DAILY GTB Last administered on 04/01/17 10: 08; Admin Dose 10 MG; Start 03/24/17 at 09:00 Hydralazine HCl 20 mg 20 mg Q6H PRN IV FOR SBP>160 Last administered on 00:20; Admin Dose 20 MG; Start 03/23/17 at 18:30 Potassium Chloride/Dextrose/ Sod Cl (D5-1/2ns + KCl 40 Meq) 1,000 ml @ 70 mls/ hr [id number] IV Last administered on 04/02/17 09:04; Admin Dose 70 MLS/HR; Start 03/27/17 at 11:00; Stop 04/03/17 at 14:59 Metoclopramide HCl 10 mg 10 mg Q8 IV Last administered on 04/02/17 05:31; Admin Dose 10 MG; Start 03/27/17 at 15:30 Total Parenteral Nutrition 1,000 ml @ 60 mls/hr [id number] IV ; Start 04/01/17 at 13:00; Status UNV Potassium Chloride/Dextrose/ Sodium Chloride (KCl/D5-1/2ns) 1,020 ml @ 70 mls/ hr [id number] IV ; Start 04/03/17 at 15:00 Assessment/Plan Chief Complaint/Hosp Course Assessment 1. Patient admitted with pneumonia off antibiotics now. 2. Advanced dementia. 3. Chronic respiratory failure. 4. Persistent ileus. 5. History of ileostomy. Plan 1. Continue antibiotics 2. Continue wound care 3. Continue tube feeding 4. DVT and GI prophylaxis Problems: YU ELLSWORTH MD[facility] Apr 02, 2017 11:44
[2017-04-02] MEDS: ACETAMINOPHEN 325 MG TAB PO PRN (15:50)
--- NOTE | 2017-04-02 18:46 | PN ---
DATE: 04/02/2017 SUBJECTIVE: The patient is not responsive. No communication, nonverbal. The patient is on ventilator through tracheostomy. OBJECTIVE: VITAL SIGNS: Temperature 97.8, heart rate 119, respiratory rate 75, blood pressure 108/56, saturation 99 percent on FiO2 40 percent on the ventilator. LABS: No labs today. INS AND OUTS: No bowel movement recorded. Gastrostomy tube drainage has not been recorded anything, probably 0. Urine output in the past 24 hours less than 2400, but today around 7 a.m. to 4 p.m., is only 300 mL. HEART: Regular. Tachycardia. LUNGS: Decreased breath sounds at the bases. ABDOMEN: Slightly distended. Bowel sounds 2+/4+. It is soft. Very minimal amount of greenish stool in the colostomy bag. ASSESSMENT: This is a 71-year-old male who was transferred from [facility] because of vomiting, and in the emergency room was found to have sepsis with leukocytosis count 19,900, urinary tract infection and pneumonia. The patient was admitted. The CT scan in the emergency room also revealed that probably there is a small bowel obstruction with dilated small bowel loops and also CT scan showed the colon from cecum to sigmoid colostomy site full of hard stool. Surgical consultation for possible obstruction was obtained. We had the discussion about the possibility of impacted stool in the colon causing obstruction in the passage of more liquid stool from the terminal ileum to the colon. Therefore, the plan was to try to make him have a bowel movement and get rid of the impacted stool in the colon. Different modalities were used with minimal success achieved so far. PLAN: The patient was put in DNR the past few days ago, and he is not getting any hyperalimentation, only is on liquid IV D5 half-normal saline. It appears that the tachycardia and the respiratory rate have increased today. We are going to stop the mineral oil, and we are going to continue G tube on intermittent suction state, no interruption. I discussed with the nurse before dictated. We will continue to follow the patient. Dictated By: Esau Gay MD /kilo/daniella /Document#: [id number] OZZY
[2017-04-03 00:07] VITALS: BP 109/56; RESP 26
[2017-04-03 00:25] VITALS: PULSE 96
[2017-04-03] MEDS: D5W-0.45 NACL + KCL 40 MEQ 1,000 ML IV SCH (00:31)
[2017-04-03 01:09] VITALS: RESP 26
[2017-04-03 03:00] VITALS: RESP 20
[2017-04-03 04:04] VITALS: PULSE 101
[2017-04-03] MEDS ORDERED: POTASSIUM CHLORIDE 40 MEQ in DEXTROSE 5%-0.45% NACL 1,000 ML IV SCH (15:00)
--- NOTE | 2017-04-13 12:21 | DES ---
Date/Time of Note Date/Time of Note DATE: 04/13/17 TIME: 12:18 Discharge/ Summary Admission/Discharge Info Admit Date/Time Mar 20, 2017 at 23:37 Discharge Date/Time Apr 03, 2017 at 09:20 Final Diagnosis 1) pneumonia 2) respiratory failure 3) dementia Preliminary Cause of Pneumonia Hx of Present Illness Patient with dementia, respiratory failure comes in with severe shortness of breath related to pneumonia. Hospital Course Patient with dementia, respiratory failure comes in with severe shortness of breath related to pneumonia. Patient was treated with antibiotics but did not improve. Patient was made DNR per family and the patient succumbed to his infection. Assessment 1. Patient admitted with pneumonia off antibiotics now. 2. Advanced dementia. 3. Chronic respiratory failure. 4. Persistent ileus. 5. History of ileostomy. Plan 1. Continue antibiotics 2. Continue wound care 3. Continue tube feeding 4. DVT and GI prophylaxis OLI ZUNIGA Apr 13, 2017 12:21
== END 2017-04-03 09:20 | disposition expired | DRG 870 ==
LOC: E/R 20:26 → ICU 23:37 → TEL 03-26 00:30
PROVIDERS: ADMIT Internal Medicine; ATTEND Internal Medicine
PROC: 5A1955Z Respiratory Ventilation, Greater than 96 Consecutive Hours (ICD-10-PCS; principal; 2017-03-21)
DX: A41.9 Sepsis, unspecified organism (principal); J96.20 Acute and chronic respiratory failure, unspecified whether with hypoxia or hypercapnia; E43 Unspecified severe protein-calorie malnutrition; J18.9 Pneumonia, unspecified organism; G93.49 Other encephalopathy; Z99.11 Dependence on respirator [ventilator] status; R40.3 Persistent vegetative state; K56.60 Unspecified intestinal obstruction; L89.153 Pressure ulcer of sacral region, stage 3; L89.893 Pressure ulcer of other site, stage 3; N39.0 Urinary tract infection, site not specified; K94.23 Gastrostomy malfunction; K56.7 Ileus, unspecified; E87.8 Other disorders of electrolyte and fluid balance, not elsewhere classified; Z93.0 Tracheostomy status; Z99.81 Dependence on supplemental oxygen; E86.0 Dehydration; E87.5 Hyperkalemia; Z86.19 Personal history of other infectious and parasitic diseases; S06.5X0S Traumatic subdural hemorrhage without loss of consciousness, sequela; J44.9 Chronic obstructive pulmonary disease, unspecified; R13.10 Dysphagia, unspecified; Z93.3 Colostomy status; Z93.1 Gastrostomy status; Z87.820 Personal history of traumatic brain injury; Y95 Nosocomial condition; F01.50 Vascular dementia, unspecified severity, without behavioral disturbance, psychotic disturbance, mood disturbance, and anxiety; Y83.9 Surgical procedure, unspecified as the cause of abnormal reaction of the patient, or of later complication, without mention of misadventure at the time of the procedure; R73.9 Hyperglycemia, unspecified; K56.41 Fecal impaction; R53.81 Other malaise; D64.9 Anemia, unspecified; I10 Essential (primary) hypertension; R06.02 Shortness of breath; Z66 Do not resuscitate
CPT/HCPCS: 36600; 71010; 74000; 74176; 80048; 80053; 80202; 81001; 82803; 82962; 83605; 83690; 83735; 84439; 84443; 84484; 85025; 87040; 87081; 87086; 93005; 93306; 94002; 94003; 96365; 96366; 96367; 96372; 96375; 96376; J0360; J1450; J1650; J2270; J2405; J2543; J2765; J3370; J3475; J3480; J7030; J7042; J7050